=== PATIENT | male | born 1960 | race Caucasian/White ===

== ENCOUNTER 2022-12-20 18:52 | Observation (INO) | payer MEDICARE, SELFPAY ==
[2022-12-20] VITALS (9 sets, daily range): BP systolic 149–176; BP diastolic 80–96; PULSE 100–120; RESP 20–30; TEMP 36.1–36.5; O2SAT 92–98; BMI 39.1; BMI 39.9
--- NOTE | 2022-12-20 19:08 | ECG_ITS ---
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
--- NOTE | 2022-12-20 19:14 | ED.SOB1 ---
HPI - SOB/Dyspnea General Chief Complaint: Shortness of Breath/Dyspnea Stated Complaint: SHORTNESS OF BREATH Time Seen by Provider: 12/20/22 19:07 Source: patient and family Mode of arrival: Wheelchair Limitations: no limitations History of Present Illness HPI Narrative: cc - shortness of breath Patient with COPD who sees Dr Pacheco now presents with 3 days of increasing shortness of breath. He uses 4LPM NC at home and sleeps with CPAP at night. he said that over the last few days he has stayed in bed longer with his CPAP because it has helped his breathing. He has not had any meds added. No fever or chills. No vomiting or diarrhea. No GI or symptoms. His PCP is Dr Benavides. He has not contacted his providers during this latest episode. Timing: constant Severity: moderate Exacerbating factors: exertion Relieving factors: nothing Known history of: COPD Associated symptoms: denies other symptoms Related Data Allergies Allergy/AdvReac Type Severity Reaction Status Date / Time metformin Allergy Intermediate Verified 12/20/22 19:00 Review of Systems ROS Cardiovascular Denies: chest pain or palpitations Exam Narrative Exam Narrative: Nurses notes and vital signs reviewed and patient is not hypoxic. afebrile General: Well-appearing and in no apparent distress. Skin: Warm, dry, no pallor noted. Head: Normocephalic, atraumatic. Neck: Supple, non-tender. Eye: Pupils are equal, round and EOMI. No scleral icterus. Cardiovascular: tachycardia Respiratory: Accessory muscle use and increased work of breathing. Globally decreased air exchange. Lungs with scattered experiatory wheezing. Back: No midline thoracic or lumbar vertebral tenderness. No CVA tenderness Musculoskeletal: normal ROM, no calf or popliteal tenderness, no lower extremity edema/swelling Neurological: A&O x4. No cranial nerve dysfunction observed. No truncal ataxia. Moves all extremities. Sensation intact. Psychiatric: Cooperative and interactive. Normal mood and affect. Constitutional Vital Signs - 24 hr 12/20/22 19:00 12/20/22 19:12 12/20/22 19:33 Temperature 97 F L Pulse Rate [Monitor] 120 H 115 H Respiratory Rate 30 H 24 Blood Pressure [Right Arm] 176/90 H Pulse Oximetry 94 L 92 L 94 L Oxygen Delivery Method Nasal Cannula Nasal Cannula Nasal Cannula Oxygen Delivery Flow Rate 4 5 5 12/20/22 19:38 Temperature Pulse Rate [Monitor] 110 H Respiratory Rate 20 Blood Pressure [Right Arm] Pulse Oximetry 98 Oxygen Delivery Method Oxygen Delivery Flow Rate Course Vital Signs Vital signs: Vital Signs Temperature 97 F L 12/20/22 19:00 Pulse Rate 120 H 12/20/22 19:00 Respiratory Rate 30 H 12/20/22 19:00 Blood Pressure 176/90 H 12/20/22 19:00 Pulse Oximetry 94 L 12/20/22 19:00 Oxygen Delivery Method Nasal Cannula 12/20/22 19:00 Oxygen Delivery Flow Rate 4 12/20/22 19:00 Temperature 97 F L 12/20/22 19:00 Pulse Rate 110 H 12/20/22 19:38 Respiratory Rate 20 12/20/22 19:38 Blood Pressure 176/90 H 12/20/22 19:00 Pulse Oximetry 98 12/20/22 19:38 Oxygen Delivery Method Nasal Cannula 12/20/22 19:33 Oxygen Delivery Flow Rate 5 12/20/22 19:33 MDM - SOB/Dyspnea MDM Narrative Medical decision making narrative: Patient was placed on radiographer cardiac catheterization and EKG obtained. Blood drawn and sent for evaluation. CXR obtained. patient was given IV Solu-Medrol and DuoNeb treatment with small amount of improvement. He received an additional albuterol nebulizer treatment. He still has not returned to his baseline. He had increased work of breathing and still is sitting forward and therefore I recommended that he be admitted to the hospital. He does not need continuous CPAP or BiPAP at this time I do not think he requires Vapotherm please clearly having an exacerbation of chronic obstructive pulmonary disease and I would like to admit him overnight on observation basis for further evaluation. His primary care provider is Dr. Janet Benavides. Therefore he will be admitted to the service of Dr. Gonzalez. I spoke with the on-call tell hospitalist, Dr. Vera, who accepted this patient's admission. Differential Diagnosis Differential diagnosis: Likely acute exacerbation of chronic obstructive airways disease, congestive heart failure, community acquired pneumonia and pulmonary embolism Lab Data Attestation: I reviewed the patient's lab results. Labs: Lab Results 12/20/22 Range/Units 19:05 WBC 7.1 (4.0-11.0) 10^3/uL RBC 5.20 (4.70-6.10) 10^6/uL Hgb 16.1 (14.0-18.0) g/dL Hct 47.7 (42.0-54.0) % MCV 91.7 (80.0-94.0) fL MCH 31.0 (25.9-34.0) pg MCHC 33.8 (29.9-35.2) g/dL RDW 13.4 (11.0-15.0) % Plt Count 313 (150-450) 10^3/uL MPV 9.5 (9.5-13.5) fL Neut % (Auto) 70.1 (43.0-75.0) % Lymph % (Auto) 19.5 L (20.5-60.0) % [place] % (Auto) 8.3 (1.7-12.0) % Eos % (Auto) 0.8 L (0.9-7.0) % Baso % (Auto) 1.0 (0.2-2.0) % Neut # (Auto) 5.0 (1.4-6.5) 10^3/uL Lymph # (Auto) 1.4 (1.2-3.8) 10^3/uL [place] # (Auto) 0.6 (0.3-0.8) 10^3/uL Eos # (Auto) 0.1 (0.0-0.7) 10^3/uL Baso # (Auto) 0.1 (0.0-0.1) 10^3/uL Abs Immat Gran (auto) 0.02 (0.00-0.03) 10^3/uL Imm/Tot Granulo (auto) 0.3 (0.0-0.5) % Sodium 141 (136-145) mmol/L Potassium 4.3 (3.5-5.1) mmol/L Chloride 102 (98-107) mmol/L Carbon Dioxide 30.8 (21.0-32.0) mmol/L Anion Gap 12.5 BUN 14.0 (7.0-18.0) mg/dL Creatinine 1.25 (0.70-1.30) mg/dL Est GFR ( Amer) >60 (>=60) Est GFR (Non-Af Amer) 58 L (>=60) BUN/Creatinine Ratio 11.2 Glucose 218 H (74-106) mg/dL Calcium 9.1 (8.5-10.1) mg/dL Troponin I High Sens 9.9 (4.0-76.1) pg/mL NT-Pro-B Natriuret Pep 102.0 (<=900.0) pg/mL ECG Data Attestation: ?I have reviewed the pertinent ECG results. Interpretation: EKG interpretation: Emergency Department physician interpretation. Sinus tachycardia at 119bpm. Normal axis, normal intervals and no ST segment elevation or depression. Discharge Plan Discharge Chief Complaint: Shortness of Breath/Dyspnea Clinical Impression: Acute exacerbation of chronic obstructive pulmonary disease Patient Disposition: Admitted as Observation Time of Disposition Decision: 21:07 Condition: Fair Referrals: JANET BENAVIDES [Primary Care Provider] - 1 week
--- NOTE | 2022-12-20 19:20 | XR_ITS ---
The [address] [address] Patient Name: RICARDO SNOW MRN: [id number] date: 1960 Sex: M Assigned Patient Location: ER Current Patient Location: ER Accession/Order Number: [id number] Exam Date: 12/20/2022 19:20 Report Date: 12/20/2022 20:21 At the request of: EDUARDO TAYLOR Procedure: XR chest 1V EXAM: XR chest 1V HISTORY: shortness of breath COMPARISON: None. TECHNIQUE: Single AP view was performed of the chest. FINDINGS: The cardiac silhouette is normal in size. The right paratracheal mediastinum appears somewhat thickened which is likely due to tortuous great vessels. Lungs appear hyperinflated consistent with known COPD. There is no focal consolidation, definite pleural effusion or pneumothorax. There is a partially visualized remote nonunited fracture of the right clavicle. IMPRESSION: 1. No definite acute cardiopulmonary process. 2. Hyperinflation consistent with known COPD. 3. Widening of the right paratracheal mediastinum, likely due to tortuosity of the great vessels. Electronically authenticated by: TOM BILLS Date: 12/20/2022 20:21
[2022-12-20 19:32] LABS: Basophils Absolute Auto 0.1 10^3/uL (0.0-0.1); Eosinophils Absolute Auto 0.1 10^3/uL (0.0-0.7); Eosinophils Percent Auto 0.8 % (0.9-7.0); Hematocrit 47.7 % (42.0-54.0); Hemoglobin 16.1 g/dL (14.0-18.0); Immature Granulocytes Abs Auto 0.02 10^3/uL (0.00-0.03); Immature Granulocytes Pct Auto 0.3 % (0.0-0.5); Lymphocytes Absolute Auto 1.4 10^3/uL (1.2-3.8); Lymphocytes Percent Auto 19.5 % (20.5-60.0); Mean Corpuscular HGB Conc 33.8 g/dL (29.9-35.2); Mean Corpuscular Volume 91.7 fL (80.0-94.0); Mean Platelet Volume 9.5 fL (9.5-13.5); Monocytes Absolute Auto 0.6 10^3/uL (0.3-0.8); Monocytes Percent Auto 8.3 % (1.7-12.0); Neutrophils Percent Auto 70.1 % (43.0-75.0); Platelet Count 313 10^3/uL (150-450); Red Cell Distribution Width 13.4 % (11.0-15.0); White Blood Count 7.1 10^3/uL (4.0-11.0)
[2022-12-20] MEDS: IPRATROPIUM/ALBUTEROL SULFATE 3 ML AMPUL.NEB IH (19:33)
[2022-12-20] MEDS: METHYLPREDNISOLONE SOD SUCC PF 125 MG/2 ML VIAL IVP (19:41)
[2022-12-20 19:46] LABS: Anion Gap 12.5; BUN Creatinine Ratio 11.2; Calcium 9.1 mg/dL (8.5-10.1); Carbon Dioxide 30.8 mmol/L (21.0-32.0); Chloride 102 mmol/L (98-107); Estimated GFR (African America >60 (>=60); Estimated GFR (Non-African Ame 58 (>=60); Glucose 218 mg/dL (74-106); Potassium 4.3 mmol/L (3.5-5.1); Sodium 141 mmol/L (136-145); Troponin I High Sensitivity 9.9 pg/mL (4.0-76.1)
[2022-12-20] MEDS: ALBUTEROL SULFATE 2.5 MG/3 ML VIAL NEB IH (21:29)
[2022-12-21] VITALS (16 sets, daily range): BP systolic 138–165; BP diastolic 76–87; PULSE 55–125; RESP 16–30; TEMP 36.4–36.8; O2SAT 93–97
--- NOTE | 2022-12-21 01:31 | P.PN_ITS ---
Progress Note: Subjective Subjective Interval history: 3 days history of acute on chronic dyspnea with PIKE despite his home day 4L nasal canula and night CPAP. Known to Dr. Matthew with prior admissions for COPD exacerbation today felt continued decline after 3 days prompting ED visit where he was investigated and treated for COPD exacerbation increasing o2 from 4 to 5L nasal o2 and when arrives to floor for interview is clinically feeling better though speaks to me in incomplete sentences to take breaths. He reports no sick contacts, denies fever or chest pain. no noted weight gain or LE edema. Has been using home inhalers without relief but ED duo neb followed by albuterol improved his symptoms. RR improved to 22 on arrival to medicine floor. Exam Constitutional Vital Signs - 24 hr 12/20/22 19:00 12/20/22 19:12 12/20/22 19:33 Temperature 97 F L Pulse Rate Pulse Rate [Monitor] 120 H 115 H Respiratory Rate 30 H 24 Blood Pressure Blood Pressure [Right Arm] 176/90 H Pulse Oximetry 94 L 92 L 94 L Oxygen Delivery Method Nasal Cannula Nasal Cannula Nasal Cannula Oxygen Delivery Flow Rate 4 5 5 12/20/22 19:38 12/20/22 22:13 12/20/22 19:00 Temperature Pulse Rate Pulse Rate [Monitor] 110 H Respiratory Rate 20 Blood Pressure 176/90 H Blood Pressure [Right Arm] Pulse Oximetry 98 96 94 L Oxygen Delivery Method Nasal Cannula Oxygen Delivery Flow Rate 5 12/20/22 21:20 12/20/22 19:00 12/20/22 22:21 Temperature Pulse Rate Pulse Rate [Monitor] 100 H Respiratory Rate 24 Blood Pressure 176/90 H 158/96 H Blood Pressure [Right Arm] Pulse Oximetry 96 95 95 Oxygen Delivery Method Nasal Cannula Oxygen Delivery Flow Rate 5 12/20/22 23:20 12/20/22 23:20 12/20/22 23:20 Temperature 97.7 F Pulse Rate 109 H Pulse Rate [Monitor] 109 H Respiratory Rate 22 22 22 Blood Pressure Blood Pressure [Right Arm] 149/80 H Pulse Oximetry 95 95 Oxygen Delivery Method Nasal Cannula Nasal Cannula Oxygen Delivery Flow Rate 5 5 12/20/22 21:30 Temperature Pulse Rate 100 H Pulse Rate [Monitor] Respiratory Rate 24 Blood Pressure Blood Pressure [Right Arm] Pulse Oximetry 98 Oxygen Delivery Method Oxygen Delivery Flow Rate Common normals: oriented x3 and well nourished General appearance: cooperative and other (mild breathing discomfort improved from ED treatment per patient.) Orientation/consciousness: Yes awake, Yes oriented to person, Yes oriented to place and Yes oriented to time HENMT Common normals: normocephalic and head/scalp atraumatic Neck & C-Spine Common normals: full ROM, supple and no JVD Chest Common normals: inspection of chest normal (accessory muscle use of upper chest) Chest: symmetrical chest wall rise Respiratory Effort & inspection: tachypneic, labored and other (sitting upright, tachypnea with decreased bilateral breath sounds with end ) Cardio Rate: tachycardic Neuro Common normals: oriented x3 Progress Note: Objective Labs Labs: Short CBC 12/20/22 Range/Units 19:05 WBC 7.1 (4.0-11.0) 10^3/uL Hgb 16.1 (14.0-18.0) g/dL Hct 47.7 (42.0-54.0) % Plt Count 313 (150-450) 10^3/uL BMP 12/20/22 19:05 Sodium 141 Potassium 4.3 Chloride 102 Carbon Dioxide 30.8 BUN 14.0 Creatinine 1.25 Glucose 218 H Calcium 9.1 Pulse Oximetry Attestation: I have reviewed the pertinent pulse oximetry results. Progress Note: A&P Assessment and Plan (1) Acute exacerbation of chronic obstructive pulmonary disease: Assessment and Plan: 1. COPD exacerbation: Continue nebulizer treatments in addition to steriods q 6. CPAP at night and escalate as needed for ventilatory issues. He is improved with initial treatment despite increased oxygen requirements on NC. For now continue non invasive treatment with pulm to be consulted tomorrow. 2. GI/DVT prophylaxis: lovenox order placed. Ok to eat as tolerated. 3. DM: monitor glucose and restart home medicines in AM. Fall Risk Details [place] Fall Scale Risk Level: No Fall Risk Current Medications: Current Medications Acetaminophen (Acetaminophen 325 Mg Tablet) 650 mg PO Q4H PRN PRN Reason: Pain Albuterol/Ipratropium (Ipratropium/Albuterol Sulfate 3 Ml Ampul.Neb) 3 ml IH Q4H PRN PRN Reason: Dyspnea Docusate Sodium (Docusate Sodium 100 Mg Capsule) 100 mg PO BID PRN PRN Reason: Constipation Enoxaparin Sodium (Enoxaparin Sodium 120 Mg/0.8 Ml Syringe) 120 mg SUBQ Q12H KAITLIN Guaifenesin (Guaifenesin 200 Mg/Dextromethorphan 20 Mg 10 Ml Syrup) 10 ml PO Q6H PRN PRN Reason: Cough Sodium Chloride (Sodium Chloride 0.9% 1,000 Ml) 1,000 mls @ 100 mls/hr IV .Q10H KAITLIN Ondansetron HCl (Ondansetron 4 Mg Rapdis Tablet) 4 mg PO Q6H PRN PRN Reason: Nausea And Vomiting Polyethylene Glycol (Polyethylene Glycol 3350 17 Gm Powder Packet) 17 gm PO QD PRN PRN Reason: Constipation Senna (Sennosides 8.6 Mg Tablet) 8.6 mg PO QD PRN PRN Reason: Constipation Time Spent With Patient Time: Total time spent is greater than 50% in coordination of care (as documented) at patient's floor/unit and/or counseling patient: Time with patient: 25 - 35 minutes Telemedicine Attestation Telemedicine Attestation I conducted this encounter from [[facility]] via secure live, [id number] video conference with the patient, CHARGE TEST-CHARGES located at [facility] with [bedside nurse]. Prior to the interview, the risks and benefits of telemedicine were discussed with the patient and verbal consent was obtained.
[2022-12-21] MEDS: 0.9 % SODIUM CHLORIDE 1,000 ML 100 ML IV (03:06)
[2022-12-21] MEDS: ENOXAPARIN SODIUM 120 MG/0.8 ML SYRINGE SUBQ (03:06)
[2022-12-21] MEDS: IPRATROPIUM/ALBUTEROL SULFATE 3 ML AMPUL.NEB IH ×4 (04:19→23:07)
--- NOTE | 2022-12-21 04:28 | RESP.RT ---
decreased to 4L at this time. Patient has history of COPD and wears 4L at home.
[2022-12-21 04:47] LABS: Basophils Percent Auto 0.4 % (0.2-2.0); Hemoglobin 15.5 g/dL (14.0-18.0); Immature Granulocytes Abs Auto 0.03 10^3/uL (0.00-0.03); Immature Granulocytes Pct Auto 0.4 % (0.0-0.5); Lymphocytes Absolute Auto 0.4 10^3/uL (1.2-3.8); Lymphocytes Percent Auto 5.2 % (20.5-60.0); Mean Corpuscular Hemoglobin 30.9 pg (25.9-34.0); Mean Corpuscular Volume 93.6 fL (80.0-94.0); Mean Platelet Volume 11.1 fL (9.5-13.5); Monocytes Absolute Auto 0.1 10^3/uL (0.3-0.8); Monocytes Percent Auto 1.2 % (1.7-12.0); Neutrophils Absolute Auto 6.4 10^3/uL (1.4-6.5); Neutrophils Percent Auto 92.8 % (43.0-75.0); Platelet Count 233 10^3/uL (150-450); Red Blood Count 5.02 10^6/uL (4.70-6.10); Red Cell Distribution Width 13.3 % (11.0-15.0); White Blood Count 6.9 10^3/uL (4.0-11.0)
[2022-12-21 05:04] LABS: Alanine Aminotransferase 26 U/L (16-63); Albumin Globulin Ratio 1.1; Albumin Level 3.7 g/dL (3.4-5.0); Alkaline Phosphatase 80 U/L (46-116); Anion Gap 13.5; Aspartate Amino Transferase 11 U/L (15-37); BUN Creatinine Ratio 15.2; Bilirubin Total 0.3 mg/dL (0.2-1.0); Calcium 9.5 mg/dL (8.5-10.1); Carbon Dioxide 28.6 mmol/L (21.0-32.0); Chloride 101 mmol/L (98-107); Estimated GFR (African America >60 (>=60); Estimated GFR (Non-African Ame >60 (>=60); Globulin 3.4 g/dL; Glucose 247 mg/dL (74-106); Magnesium 1.8 mg/dL (1.8-2.4); Potassium 4.1 mmol/L (3.5-5.1); Sodium 139 mmol/L (136-145); Total Protein 7.1 g/dL (6.4-8.2)
[2022-12-21 07:52] LABS: Glucometer 214 mg/dL (74-106)
[2022-12-21] MEDS: METHYLPREDNISOLONE SOD SUCC PF 125 MG/2 ML VIAL IVP ×3 (09:33→21:14)
[2022-12-21] MEDS: LEVOFLOXACIN IN DEXTROSE 5 % 750 MG/150 ML IV.SOLN 100 MG IV (09:38)
--- NOTE | 2022-12-21 09:58 | P.HP_ITS ---
H&P: HPI History of Present Illness Chief complaint: SHORTNESS OF BREATH Narrative: Patient with a history of COPD last flareup in August, presented to the emergency with increasing shortness of breath, respiratory distress, sinus tachycardia, acute hypoxia, acute elevation of blood pressure-admitted for work- up and treatment of acute exacerbation of COPD likely secondary to acute bronchitis [facility] Social History Gender Identity: male Meds Home Medications and Allergies Home Medications Medication Instructions Recorded Confirmed Type albuterol sulfate 90 mcg/actuation 2 puff inhalation Q4H PRN 12/20/22 12/20/22 History aerosol inhaler shortness of breath or wheezing aripiprazole 10 mg tablet 10 mg PO DAILY 12/20/22 12/20/22 History fluticasone fur. 100 mcg-umeclid 1 inh inhalation Q24H 12/20/22 12/20/22 History 62.5 mcg-vilant 25 mcg inhalat.powder (Trelegy Ellipta) glipizide 10 mg tablet 10 mg PO BID 12/20/22 12/20/22 History hydrocodone 5 mg-acetaminophen 325 1 tab PO Q6H PRN pain 12/20/22 12/20/22 History mg tablet lisinopril 5 mg tablet 5 mg PO DAILY 12/20/22 12/20/22 History metoprolol succinate 25 mg 25 mg PO DAILY 12/20/22 12/20/22 History tablet,extended release 24 hr omeprazole 20 mg capsule,delayed 20 mg PO DAILY 12/20/22 12/20/22 History release theophylline 400 mg 400 mg PO Q12H 12/20/22 12/20/22 History tablet,extended release 24 hr venlafaxine 75 mg capsule,extended 150 mg PO DAILY 12/20/22 12/20/22 History release 24 hr Allergies Allergy/AdvReac Type Severity Reaction Status Date / Time metformin Allergy Intermediate Verified 12/20/22 19:00 Exam Constitutional Vital Signs - 24 hr 12/20/22 19:00 12/20/22 19:12 12/20/22 19:33 Temperature 97 F L Pulse Rate Pulse Rate [Monitor] 120 H 115 H Respiratory Rate 30 H 24 Blood Pressure Blood Pressure [Left Arm] Blood Pressure [Right Arm] 176/90 H Pulse Oximetry 94 L 92 L 94 L Oxygen Delivery Method Nasal Cannula Nasal Cannula Nasal Cannula Oxygen Delivery Flow Rate 4 5 5 12/20/22 19:38 12/20/22 22:13 12/20/22 19:00 Temperature Pulse Rate Pulse Rate [Monitor] 110 H Respiratory Rate 20 Blood Pressure 176/90 H Blood Pressure [Left Arm] Blood Pressure [Right Arm] Pulse Oximetry 98 96 94 L Oxygen Delivery Method Nasal Cannula Oxygen Delivery Flow Rate 5 12/20/22 21:20 12/20/22 19:00 12/20/22 22:21 Temperature Pulse Rate Pulse Rate [Monitor] 100 H Respiratory Rate 24 Blood Pressure 176/90 H 158/96 H Blood Pressure [Left Arm] Blood Pressure [Right Arm] Pulse Oximetry 96 95 95 Oxygen Delivery Method Nasal Cannula Oxygen Delivery Flow Rate 5 12/20/22 23:20 12/20/22 23:20 12/20/22 23:20 Temperature 97.7 F Pulse Rate 109 H Pulse Rate [Monitor] 109 H Respiratory Rate 22 22 22 Blood Pressure Blood Pressure [Left Arm] Blood Pressure [Right Arm] 149/80 H Pulse Oximetry 95 95 Oxygen Delivery Method Nasal Cannula Nasal Cannula Oxygen Delivery Flow Rate 5 5 12/20/22 21:30 12/21/22 02:52 12/21/22 04:13 Temperature Pulse Rate 100 H 92 H 89 Pulse Rate [Monitor] Respiratory Rate 24 30 H Blood Pressure Blood Pressure [Left Arm] Blood Pressure [Right Arm] Pulse Oximetry 98 97 Oxygen Delivery Method Nasal Cannula Oxygen Delivery Flow Rate 5 12/21/22 05:41 12/21/22 06:00 12/21/22 08:00 Temperature 97.5 F L 97.5 F L Pulse Rate 92 H 92 H 104 H Pulse Rate [Monitor] Respiratory Rate 20 20 Blood Pressure Blood Pressure [Left Arm] 138/76 H 138/76 H Blood Pressure [Right Arm] 149/80 H Pulse Oximetry 94 L 94 L Oxygen Delivery Method Nasal Cannula Nasal Cannula Oxygen Delivery Flow Rate 5 5 12/21/22 09:51 Temperature Pulse Rate 107 H Pulse Rate [Monitor] Respiratory Rate Blood Pressure Blood Pressure [Left Arm] Blood Pressure [Right Arm] Pulse Oximetry Oxygen Delivery Method Oxygen Delivery Flow Rate Chest Common normals: inspection of chest normal Respiratory Common normals: abnormal respiratory effort (Conversational dyspnea) Effort & inspection: other (Diminished breath sounds bilaterally) Cardio Common normals: regular rate and regular rhythm GI Common normals: Normal to inspection, nondistended, normoactive bowel sounds present and soft to palpation Extremity Common normals: normal to inspection and full ROM Results Labs Labs: Short CBC 12/20/22 12/21/22 Range/Units 19:05 04:17 WBC 7.1 6.9 (4.0-11.0) 10^3/uL Hgb 16.1 15.5 (14.0-18.0) g/dL Hct 47.7 47.0 (42.0-54.0) % Plt Count 313 233 (150-450) 10^3/uL BMP 12/20/22 12/21/22 19:05 04:17 Sodium 141 139 Potassium 4.3 4.1 Chloride 102 101 Carbon Dioxide 30.8 28.6 BUN 14.0 15.0 Creatinine 1.25 0.99 Glucose 218 H 247 H Calcium 9.1 9.5 Liver Function 12/21/22 Range/Units 04:17 Total Bilirubin 0.3 (0.2-1.0) mg/dL AST 11 L (15-37) U/L ALT 26 (16-63) U/L Alkaline Phosphatase 80 (46-116) U/L Albumin 3.7 (3.4-5.0) g/dL Assessment and Plan Assessment and Plan (1) Acute exacerbation of chronic obstructive pulmonary disease: Plan Sinus tachycardia, respiratory distress, acute hypoxia with acute uncontrolled hypertension secondary to acute exacerbation of COPD-steroids, antibiotics, aerosol treatments. Check theophylline level. Does wear home O2 at 4 L but was bumped up to 6 L at 1 point here. Generalized anxiety disorder-continue with home medications plus the addition of Vistaril NIDDM-insulin sliding scale. Hypertension-continue with home medications Morbid obesity-diet management Currently we will maintain patient on observation status, possible discharge tomorrow for improved quickly, consult to pulmonology
[2022-12-21 10:55] LABS: Theophylline 20.7 ug/mL (10.0-20.0)
[2022-12-21 11:04] LABS: Glucometer 264 mg/dL (74-106)
[2022-12-21] MEDS: ARIPIPRAZOLE 5 MG TABLET 10 MG PO (11:49)
[2022-12-21] MEDS: INSULIN ASPART 300 UNIT/3 ML PEN SUBQ ×3 (11:51→21:15)
--- NOTE | 2022-12-21 11:51 | CM.NOTE ---
Rounds made with Dr. Gonzalez. Consult made to Flight Surveyor. Currently Mr. Hallman has chronic oxygen @ 4L/NC thru [facility] (previously [facility] in [place]) also has a CPaP that he uses nightly. Lives at home with his and uses no DME devices. No plan for discharge today.
--- NOTE | 2022-12-21 13:39 | CT_ITS ---
The [address] [address] Patient Name: RICARDO HYLTON MRN: [id number] date: 1960 Sex: M Assigned Patient Location: MS Current Patient Location: MS Accession/Order Number: [id number] Exam Date: 12/21/2022 23:59 Report Date: 12/22/2022 02:22 At the request of: VANDA GONZALEZ Procedure: CT angio chest EXAM: CT angio chest HISTORY: Acute on chronic respiratory failure, chest pain COMPARISON: CT chest examination dated 08/17/2022. TECHNIQUE: Axial CT images through the chest were obtained after the intravenous administration of 100 mL Omnipaque 350 contrast. Coronal and sagittal reformats were obtained. Dose reduction techniques were achieved by using automated exposure control and/or adjustment of mA and/or kV according to patient size and/or use of iterative reconstruction technique. FINDINGS: The study is technically adequate with a good contrast bolus to the pulmonary arteries. There are no filling defects or vascular cutoffs to indicate a pulmonary embolus. The pulmonary arteries are normal in size. There are emphysematous changes. There is biapical pleural parenchymal scarring. There is bibasilar atelectasis and/or scarring. The central airways are patent. No pleural effusion or pneumothorax is seen. The thoracic aorta is normal in course and caliber without evidence of an aneurysm. The cardiac chambers appear normal in size. There is no pericardial effusion. There is no mediastinal, hilar, or axillary lymphadenopathy by CT size criteria. Nipple piercings are noted. Images through the upper abdomen reveal no significant abnormalities. No suspicious or aggressive bone lesions are seen. No acute fracture is seen. There is a partially imaged remote right clavicle fracture. A right upper extremity PICC terminates near the atriocaval junction. IMPRESSION: 1. No evidence of pulmonary embolism. 2. Emphysematous changes with no acute cardiopulmonary abnormality. Electronically authenticated by: Katherine JOYNER Date: 12/22/2022 02:22
--- NOTE | 2022-12-21 13:40 | P.PLCN_ITS ---
History of Present Illness History of Present Illness Requesting physician: Shoaib Gonzalez Reason for consult: COPD (Acute exacerbation of COPD) Chief complaint: SHORTNESS OF BREATH Narrative: 62yo male who I follow outpatient for COPD presented to [facility] ER with worsening dyspnea over the past 3-4 days. He states that the recent heat wave this past weekend (near 90'F) set off his symptoms. Increased work of breathing, chest tightness, random chest pains. He states he has this feeling of dread that he is going to . He did not have any spare prednisone around. He came to the ER and was short of breath. He turned O2 up from baseline 4L/min to 5L/min; SpO2 ~94%, HR ~120. He improved with neb treatment. Given his work of breathing, he was admitted to the floor. He states it is still very rough to breathe. He is in the room with pursed lip breathing. in room states he has been doing this for ~3 days. He is using his PAP constantly at home, beyond HS & Naps. It helps some, but not a lot. Review of Systems ROS Status of ROS 10 or more systems reviewed and unremarkable except as noted in history and below Constitutional Denies: fever or chills Eyes Denies: blurry vision Ears, nose, mouth, and throat Denies: throat pain Cardiovascular Reports: chest pain (anterior chest, not constant) Respiratory Reports: shortness of breath, cough, wheezing and chest congestion; Denies: coughing up blood Gastrointestinal Denies: abdominal pain, nausea or vomiting Musculoskeletal Denies: extremity swelling Integumentary/Breast Denies: rash Neurological Denies: seizure-like activity Psychiatric Reports: anxiety Endocrine Reports: fatigue Allergic/Immunologic Denies: hives [facility] Social History Gender Identity: male Meds Home Medications and Allergies Home Medications Medication Instructions Recorded Confirmed Type albuterol sulfate 90 mcg/actuation 2 puff inhalation Q4H PRN 12/20/22 12/20/22 History aerosol inhaler shortness of breath or wheezing aripiprazole 10 mg tablet 10 mg PO DAILY 12/20/22 12/20/22 History fluticasone fur. 100 mcg-umeclid 1 inh inhalation Q24H 12/20/22 12/20/22 History 62.5 mcg-vilant 25 mcg inhalat.powder (Trelegy Ellipta) glipizide 10 mg tablet 10 mg PO BID 12/20/22 12/20/22 History hydrocodone 5 mg-acetaminophen 325 1 tab PO Q6H PRN pain 12/20/22 12/20/22 His tory mg tablet lisinopril 5 mg tablet 5 mg PO DAILY 12/20/22 12/20/22 History metoprolol succinate 25 mg 25 mg PO DAILY 12/20/22 12/20/22 History tablet,extended release 24 hr omeprazole 20 mg capsule,delayed 20 mg PO DAILY 12/20/22 12/20/22 History release theophylline 400 mg 400 mg PO Q12H 12/20/22 12/20/22 History tablet,extended release 24 hr venlafaxine 75 mg capsule,extended 150 mg PO DAILY 12/20/22 12/20/22 History release 24 hr Allergies Allergy/AdvReac Type Severity Reaction Status Date / Time metformin Allergy Intermediate Verified 12/20/22 19:00 Exam Constitutional Vital Signs - 24 hr 12/20/22 19:00 12/20/22 19:12 12/20/22 19:33 Temperature 97 F L Pulse Rate Pulse Rate [Monitor] 120 H 115 H Respiratory Rate 30 H 24 Blood Pressure Blood Pressure [Left Arm] Blood Pressure [Right Arm] 176/90 H Pulse Oximetry 94 L 92 L 94 L Oxygen Delivery Method Nasal Cannula Nasal Cannula Nasal Cannula Oxygen Delivery Flow Rate 4 5 5 12/20/22 19:38 12/20/22 22:13 12/20/22 19:00 Temperature Pulse Rate Pulse Rate [Monitor] 110 H Respiratory Rate 20 Blood Pressure 176/90 H Blood Pressure [Left Arm] Blood Pressure [Right Arm] Pulse Oximetry 98 96 94 L Oxygen Delivery Method Nasal Cannula Oxygen Delivery Flow Rate 5 12/20/22 21:20 12/20/22 19:00 12/20/22 22:21 Temperature Pulse Rate Pulse Rate [Monitor] 100 H Respiratory Rate 24 Blood Pressure 176/90 H 158/96 H Blood Pressure [Left Arm] Blood Pressure [Right Arm] Pulse Oximetry 96 95 95 Oxygen Delivery Method Nasal Cannula Oxygen Delivery Flow Rate 5 12/20/22 23:20 12/20/22 23:20 12/20/22 23:20 Temperature 97.7 F Pulse Rate 109 H Pulse Rate [Monitor] 109 H Respiratory Rate 22 22 22 Blood Pressure Blood Pressure [Left Arm] Blood Pressure [Right Arm] 149/80 H Pulse Oximetry 95 95 Oxygen Delivery Method Nasal Cannula Nasal Cannula Oxygen Delivery Flow Rate 5 5 12/20/22 21:30 12/21/22 02:52 12/21/22 04:13 Temperature Pulse Rate 100 H 92 H 89 Pulse Rate [Monitor] Respiratory Rate 24 30 H Blood Pressure Blood Pressure [Left Arm] Blood Pressure [Right Arm] Pulse Oximetry 98 97 Oxygen Delivery Method Nasal Cannula Oxygen Delivery Flow Rate 5 12/21/22 05:41 12/21/22 06:00 12/21/22 08:00 Temperature 97.5 F L 97.5 F L Pulse Rate 92 H 92 H 104 H Pulse Rate [Monitor] Respiratory Rate 20 20 Blood Pressure Blood Pressure [Left Arm] 138/76 H 138/76 H Blood Pressure [Right Arm] 149/80 H Pulse Oximetry 94 L 94 L Oxygen Delivery Method Nasal Cannula Nasal Cannula Oxygen Delivery Flow Rate 5 5 12/21/22 09:51 12/21/22 10:25 12/21/22 11:57 Temperature 98.3 F Pulse Rate 107 H 55 L 91 H Pulse Rate [Monitor] Respiratory Rate Blood Pressure Blood Pressure [Left Arm] 155/80 H Blood Pressure [Right Arm] Pulse Oximetry 93 L Oxygen Delivery Method Nasal Cannula Oxygen Delivery Flow Rate 5 Common normals: no apparent distress Nutritional appearance: obese Other: Breathing hard, fast, pursed lip HENMT Other: Wearing nasal cannula Eye Common normals: PERRL Neck & C-Spine General: trachea midline Chest Common normals: inspection of chest normal Respiratory Effort & inspection: tachypneic, pursed lip breathing and prolonged expiratory phase Auscultation: diminished lung sounds Percussion: hyperresonance Cardio Rate: regular rate Rhythm: regular rhythm GI Common normals: soft to palpation and non-tender Extremity Common normals: no clubbing, cyanosis or edema Neuro Common normals: oriented x3 Sensorium/orientation: awake Psych Mood and affect: anxious Results Laboratory Findings Abnormal lab findings: Abnormal Labs 12/20/22 12/21/22 12/21/22 19:05 04:17 07:51 Neut % (Auto) 92.8 H Lymph % (Auto) 19.5 L 5.2 L [place] % (Auto) 1.2 L Eos % (Auto) 0.8 L 0.0 L Lymph # (Auto) 0.4 L [place] # (Auto) 0.1 L Est GFR (Non-Af Amer) 58 L Glucose 218 H 247 H AST 11 L Theophylline 20.7 H* POC Glucose 214 H 12/21/22 11:03 Neut % (Auto) Lymph % (Auto) [place] % (Auto) Eos % (Auto) Lymph # (Auto) [place] # (Auto) Est GFR (Non-Af Amer) Glucose AST Theophylline POC Glucose 264 H Diagnostic Findings Chest x-ray: report reviewed Assessment and Plan Assessment and Plan (1) Acute exacerbation of chronic obstructive pulmonary disease: Assessment and Plan: 1. Acute exacerbation of COPD. 4th exacerbation this calendar year, 2nd hospitalization for COPD. Appears provoked by temperature flux. Still quite short of breath. Feeling of dread will check CTA for pulmonary embolism or any other finding that would be contributing to his worsening status. Will look into Daliresp vs. daily Azithromycin for outpatient use. 2. Alpha 1-antitrypsin deficiency with associated emphysema. Genotype MZ with very low level 20.9. Prolastin-C outpatient. 3. Chronic hypoxic respiratory failure. Baseline ~4L/min. Will check ABG; last ABG 08/29/2022 pH 7.354, pCO2 49.7. 4. Elevated theophylline level. No evidence of seizure (major toxicity); recheck theophylline tomorrow - level was normal earlier this year. 5. RANCHO. Severe with AHI 34. Continue PAP @ HS, naps, and PRN dyspnea. 6. Diabetes mellitus type 2. 7. Obesity. BMI 39.9 inducing a restrictive pulmonary physiology. 8. History of tobacco abuse. 120 pack-year history, quit 2012. Options for patient are few. I actually referred him for lung transplantation, was seen @ [facility] 04/06/2021. Medications nearly maxed. Prognosis is poor.
--- NOTE | 2022-12-21 14:24 | PC.NURSE ---
Patient has no IV access
[2022-12-21 14:29] LABS: ABG PCO2 44.6 mmHg (35.0-45.0); Base Excess ABG 1.3 mmol/L (-2.0-2.0); HCO3 ABG 26.4 mmol/L (22.0-26.0); Oxygen Saturation ABG 93.5 %; PO2 ABG 74.3 mmHg (80.0-100.0); pH ABG 7.381 (7.350-7.450)
[2022-12-21 14:30] LABS: Allen Test POS (POSITIVE); Liters per Minute 4; O2 Mode NC
[2022-12-21 14:31] LABS: Puncture Site RIGHT RADIAL
--- NOTE | 2022-12-21 15:23 | SWNOTE1 ---
SW met with pt to discuss dc needs. Pt lives at home with his and has home o2 at 4 liters and cpap. Pt is independent at home, no HH services. Pt did mention he does get an infusion monthly at home for his emphyzema. Pt does live in 2 story home. He has 13 stairs to get up, his bedroom is upstairs. Pt and have been talking about getting a hospital bed and he has been talking with his PCP about this. Pt at this time does not have any discharge needs. KATHY did review the IMM form with pt, no questions or concerns. Pt signed form, original given to pt and copy placed in chart.
[2022-12-21 16:18] LABS: Glucometer 227 mg/dL (74-106)
--- NOTE | 2022-12-21 16:37 | RESP.RT ---
GAVE PT 1700 TX BUT COULD NOT CHART IT OFF ON MED LIST RT GAVE NAHOMI AT 1639
[2022-12-21] MEDS: GLIPIZIDE 10 MG TABLET PO (21:14)
[2022-12-21 21:18] LABS: Glucometer 309 mg/dL (74-106)
[2022-12-22] VITALS (16 sets, daily range): BP systolic 161–163; BP diastolic 80–83; PULSE 92–112; RESP 18–24; TEMP 36.8–37.7; O2SAT 91–95
[2022-12-22] MEDS: METHYLPREDNISOLONE SOD SUCC PF 125 MG/2 ML VIAL IVP ×4 (03:56→20:28)
[2022-12-22] MEDS: IPRATROPIUM/ALBUTEROL SULFATE 3 ML AMPUL.NEB IH ×4 (04:01→23:02)
[2022-12-22 05:21] LABS: Theophylline 6.5 ug/mL (10.0-20.0)
[2022-12-22 07:28] LABS: Basophils Percent Auto 0.1 % (0.2-2.0); Eosinophils Percent Auto 0.1 % (0.9-7.0); Hematocrit 45.8 % (42.0-54.0); Hemoglobin 15.2 g/dL (14.0-18.0); Immature Granulocytes Abs Auto 0.05 10^3/uL (0.00-0.03); Immature Granulocytes Pct Auto 0.4 % (0.0-0.5); Lymphocytes Absolute Auto 0.8 10^3/uL (1.2-3.8); Lymphocytes Percent Auto 6.7 % (20.5-60.0); Mean Corpuscular HGB Conc 33.2 g/dL (29.9-35.2); Mean Corpuscular Hemoglobin 30.9 pg (25.9-34.0); Mean Corpuscular Volume 93.1 fL (80.0-94.0); Mean Platelet Volume 10.2 fL (9.5-13.5); Monocytes Absolute Auto 0.4 10^3/uL (0.3-0.8); Monocytes Percent Auto 3.4 % (1.7-12.0); Neutrophils Absolute Auto 10.7 10^3/uL (1.4-6.5); Neutrophils Percent Auto 89.3 % (43.0-75.0); Platelet Count 350 10^3/uL (150-450); Red Blood Count 4.92 10^6/uL (4.70-6.10); Red Cell Distribution Width 13.4 % (11.0-15.0); White Blood Count 11.9 10^3/uL (4.0-11.0)
[2022-12-22 07:39] LABS: Glucometer 242 mg/dL (74-106)
--- NOTE | 2022-12-22 08:22 | PM.PLPN ---
Progress Note: A&P Assessment and Plan (1) Acute exacerbation of chronic obstructive pulmonary disease: Assessment and Plan: 1. Acute exacerbation of COPD.? Continue treatment, taper steroids. Needs outpatient F/U. 2. Alpha 1-antitrypsin deficiency with associated emphysema.? Genotype MZ with very low level 20.9.? Obtained further history. He was on Prolastin-C outpatient, but had not been on it since April 2022. He now has an [employer] Medicare supplement. As it has been so long since he had been on it, and with new coverage, will need to recertify him for Prolastin-C; this will take over a month, so continuing with PICC-outpatient for 30 days is not viable from a pulmonary standpoint. 3. Chronic hypoxic respiratory failure.? Baseline ~4L/min and is back to it. No hypercapnia on ABG. 4. Elevated theophylline level.? Now low... continue theophylline at this time. 5. RANCHO.? Severe with AHI 34.? Continue PAP @ HS, naps, and PRN dyspnea. 6. Diabetes mellitus type 2. Monitor for hyperglycemia secondary to steroids. 7. Obesity. BMI 39.9 inducing a restrictive pulmonary physiology. 8. History of tobacco abuse. 120 pack-year history, quit 2012. Fall Risk Details [place] Fall Scale Risk Level: Low Fall Risk Current Medications: Current Medications Acetaminophen (Acetaminophen 325 Mg Tablet) 650 mg PO Q4H PRN PRN Reason: Pain Hydrocodone Bitart/Acetaminophen (Hydrocodone/Acetaminophen 5-325 Mg Tablet) 1 each PO Q6H PRN PRN Reason: pain Albuterol (Albuterol Sulfate 2.5 Mg/3 Ml Vial Neb) 2.5 mg IH Q2H PRN PRN Reason: dyspnea Albuterol/Ipratropium (Ipratropium/Albuterol Sulfate 3 Ml Ampul.Neb) 3 ml IH Q4H PRN PRN Reason: Dyspnea Albuterol/Ipratropium (Ipratropium/Albuterol Sulfate 3 Ml Ampul.Neb) 3 ml IH Q6H [facility] Last Admin: 12/22/22 04:01 Dose: 3 ml Aripiprazole (Aripiprazole 5 Mg Tablet) 10 mg PO QD [facility] Last Admin: 12/21/22 11:49 Dose: 10 mg Docusate Sodium (Docusate Sodium 100 Mg Capsule) 100 mg PO BID PRN PRN Reason: Constipation Glipizide (Glipizide 10 Mg Tablet) 10 mg PO BID [facility] Last Admin: 12/21/22 21:14 Dose: 10 mg Guaifenesin (Guaifenesin 200 Mg/Dextromethorphan 20 Mg 10 Ml Syrup) 10 ml PO Q6H PRN PRN Reason: Cough Hydroxyzine Pamoate (Hydroxyzine Pamoate 25 Mg Capsule) 25 mg PO QID PRN PRN Reason: Anxiety Levofloxacin/Dextrose (Levaquin 750 Mg/150 Ml-D5w) 750 mg in 150 mls @ 100 mls/hr IV Q24H [facility] Last Infusion: 12/21/22 11:56 Dose: Infused Insulin Aspart (Insulin Aspart 300 Unit/3 Ml Pen) 6 - 30 unit SUBQ ACHS [facility]; Protocol Lisinopril (Lisinopril 5 Mg Tablet) 5 mg PO DAILY [facility] Methylprednisolone Sodium Succinate (Methylprednisolone Sod Succ Pf 125 Mg/2 Ml Vial) 125 mg IVP Q6H [facility] Last Admin: 12/22/22 03:56 Dose: 125 mg Metoprolol Succinate (Metoprolol Succinate 25 Mg Tab.Er.24h) 25 mg PO DAILY [facility] Omeprazole (Omeprazole 20 Mg Capsule.Dr) 20 mg PO DAILY [facility] Ondansetron HCl (Ondansetron 4 Mg Rapdis Tablet) 4 mg PO Q6H PRN PRN Reason: Nausea And Vomiting Polyethylene Glycol (Polyethylene Glycol 3350 17 Gm Powder Packet) 17 gm PO QD PRN PRN Reason: Constipation Senna (Sennosides 8.6 Mg Tablet) 8.6 mg PO QD PRN PRN Reason: Constipation Theophylline (Theophylline Anhydrous 400 Mg Tab.Er.24h) 400 mg PO BID [facility] Last Admin: 12/21/22 21:13 Dose: Not Given Venlafaxine HCl (Venlafaxine Hcl Er 75 Mg Capsule) 150 mg PO DAILY [facility] Time Spent With Patient Time: Total time spent is greater than 50% in coordination of care (as documented) at patient's floor/unit and/or counseling patient: Subjective Subjective Interval history: He is breathing better today. Still has pursed lip breathing. Explained to him that his ABG was okay (no hypercapnia) and CTA showed no pulmonary emboli or other abnormalities. Nursing lost IV access and had to order a right PICC for the IVP dye. Discussed with patient's insurance. He was not able to afford Prolastin-C and had been off it since April! He states he now has [place] Medicare. Exam Constitutional Vital Signs - 24 hr 12/21/22 09:51 12/21/22 10:25 12/21/22 11:57 Temperature 98.3 F Pulse Rate 107 H 55 L 91 H Respiratory Rate Blood Pressure [Left Arm] 155/80 H Blood Pressure [Right Arm] Pulse Oximetry 93 L Oxygen Delivery Method Nasal Cannula Oxygen Delivery Flow Rate 5 12/21/22 13:58 12/21/22 14:00 12/21/22 15:45 Temperature 98.0 F Pulse Rate 109 H 105 H 94 H Respiratory Rate 16 Blood Pressure [Left Arm] Blood Pressure [Right Arm] 165/87 H Pulse Oximetry 93 L Oxygen Delivery Method Nasal Cannula Oxygen Delivery Flow Rate 4 12/21/22 17:33 12/21/22 20:01 12/21/22 21:41 Temperature 98.2 F Pulse Rate 125 H 120 H 93 H Respiratory Rate 18 Blood Pressure [Left Arm] Blood Pressure [Right Arm] 159/76 H Pulse Oximetry 93 L Oxygen Delivery Method Room Air Oxygen Delivery Flow Rate 12/21/22 22:01 12/21/22 23:06 12/21/22 23:06 Temperature Pulse Rate 107 H 108 H Respiratory Rate 24 Blood Pressure [Left Arm] Blood Pressure [Right Arm] Pulse Oximetry 94 L 94 L Oxygen Delivery Method Nasal Cannula Nasal Cannula Oxygen Delivery Flow Rate 4 4 12/22/22 00:01 12/22/22 02:01 12/22/22 03:51 Temperature Pulse Rate 108 H 112 H 102 H Respiratory Rate Blood Pressure [Left Arm] Blood Pressure [Right Arm] Pulse Oximetry Oxygen Delivery Method Oxygen Delivery Flow Rate 12/22/22 04:00 12/22/22 04:49 12/22/22 05:52 Temperature 99.8 F H Pulse Rate 110 H 108 H 107 H Respiratory Rate 20 Blood Pressure [Left Arm] 163/80 H Blood Pressure [Right Arm] Pulse Oximetry 91 L Oxygen Delivery Method Home BIPAP / CPAP Nasal Cannula Oxygen Delivery Flow Rate 4 12/22/22 08:02 Temperature Pulse Rate 110 H Respiratory Rate Blood Pressure [Left Arm] Blood Pressure [Right Arm] Pulse Oximetry Oxygen Delivery Method Oxygen Delivery Flow Rate Common normals: no apparent distress Nutritional appearance: obese Other: Breathing more calm today but still pursed lip HENMT Other: Wearing nasal cannula Eye Common normals: PERRL Neck & C-Spine General: trachea midline Chest Common normals: inspection of chest normal Respiratory Effort & inspection: pursed lip breathing and prolonged expiratory phase Auscultation: diminished lung sounds Percussion: hyperresonance Other: Breathing better today. Cardio Rate: regular rate Rhythm: regular rhythm GI Common normals: soft to palpation and non-tender Extremity Common normals: no clubbing, cyanosis or edema Neuro Common normals: oriented x3 Sensorium/orientation: awake Psych Mood and affect: anxious
[2022-12-22 08:34] LABS: Alanine Aminotransferase 26 U/L (16-63); Albumin Globulin Ratio 1.1; Albumin Level 3.9 g/dL (3.4-5.0); Alkaline Phosphatase 73 U/L (46-116); Anion Gap 16.6; Aspartate Amino Transferase 15 U/L (15-37); BUN Creatinine Ratio 15.5; Bilirubin Total 0.2 mg/dL (0.2-1.0); Calcium 10.1 mg/dL (8.5-10.1); Carbon Dioxide 26.5 mmol/L (21.0-32.0); Chloride 101 mmol/L (98-107); Estimated GFR (African America >60 (>=60); Estimated GFR (Non-African Ame >60 (>=60); Globulin 3.4 g/dL; Glucose 229 mg/dL (74-106); Potassium 4.1 mmol/L (3.5-5.1); Sodium 140 mmol/L (136-145); Total Protein 7.3 g/dL (6.4-8.2)
[2022-12-22] MEDS: LEVOFLOXACIN IN DEXTROSE 5 % 750 MG/150 ML IV.SOLN 100 MG IV (08:37)
[2022-12-22] MEDS: OMEPRAZOLE 20 MG CAPSULE.DR PO (08:38)
[2022-12-22] MEDS: METOPROLOL SUCCINATE 25 MG TAB.ER.24H PO (08:38)
[2022-12-22] MEDS: VENLAFAXINE HCL ER 75 MG CAPSULE 150 MG PO (08:38)
[2022-12-22] MEDS: LISINOPRIL 5 MG TABLET PO (08:38)
[2022-12-22] MEDS: GLIPIZIDE 10 MG TABLET PO ×2 (08:38→20:28)
[2022-12-22] MEDS: INSULIN ASPART 300 UNIT/3 ML PEN SUBQ ×4 (08:39→21:08)
--- NOTE | 2022-12-22 09:12 | P.DS_ITS ---
DS: Providers Provider Date of admission: 12/21/22 10:00 Primary care physician: BRYON BENAVIDES Consults: 12/21/22 Consult to Laboratory Chemist Routine 12/21/22 09:59 Consult to Pulmonology Routine Consulting Provider: Douglas Pacheco DS: Diagnosis Discharge Diagnosis (1) Acute exacerbation of chronic obstructive pulmonary disease: Plan Sinus tachycardia, respiratory distress, acute hypoxia with acute uncontrolled hypertension secondary to acute exacerbation of COPD-steroids, antibiotics, aerosol treatments.? Check theophylline level.? Does wear home O2 at 4 L but was bumped up to 6 L at 1 point here. Generalized anxiety disorder-continue with home medications plus the addition of Vistaril NIDDM-insulin sliding scale. Hypertension-continue with home medications Morbid obesity-diet management Currently we will maintain patient on observation status, possible discharge tomorrow for improved quickly, consult to pulmonology DS: Summary Hospital Course Hospital Course: Patient presented to the emergency with increasing shortness of breath. He has known COPD. And have acute hypoxic respiratory failure. Admitted and placed on IV antibiotics, IV steroids, frequent breathing treatments. After the first 24 hours he was back to his baseline of 4 L of supplemental oxygen. No further testing at the present from pulmonology standpoint. The patient still significant dyspnea with any activity. He can benefit from additional IV therapy if not improved later on this afternoon. Otherwise if he is improved this afternoon he can be discharged home in improving condition. Medication status. Follow-up with PCP and pulmonology as an outpatient Time Spent with Patient Time attestation: Total time spent providing and/or coordinating discharge services: Exam Constitutional Vital Signs - 24 hr 12/21/22 09:51 12/21/22 10:25 12/21/22 11:57 Temperature 98.3 F Pulse Rate 107 H 55 L 91 H Respiratory Rate Blood Pressure [Left Arm] 155/80 H Blood Pressure [Right Arm] Pulse Oximetry 93 L Oxygen Delivery Method Nasal Cannula Oxygen Delivery Flow Rate 5 12/21/22 13:58 12/21/22 14:00 12/21/22 15:45 Temperature 98.0 F Pulse Rate 109 H 105 H 94 H Respiratory Rate 16 Blood Pressure [Left Arm] Blood Pressure [Right Arm] 165/87 H Pulse Oximetry 93 L Oxygen Delivery Method Nasal Cannula Oxygen Delivery Flow Rate 4 12/21/22 17:33 12/21/22 20:01 12/21/22 21:41 Temperature 98.2 F Pulse Rate 125 H 120 H 93 H Respiratory Rate 18 Blood Pressure [Left Arm] Blood Pressure [Right Arm] 159/76 H Pulse Oximetry 93 L Oxygen Delivery Method Room Air Oxygen Delivery Flow Rate 12/21/22 22:01 12/21/22 23:06 12/21/22 23:06 Temperature Pulse Rate 107 H 108 H Respiratory Rate 24 Blood Pressure [Left Arm] Blood Pressure [Right Arm] Pulse Oximetry 94 L 94 L Oxygen Delivery Method Nasal Cannula Nasal Cannula Oxygen Delivery Flow Rate 4 4 12/22/22 00:01 12/22/22 02:01 12/22/22 03:51 Temperature Pulse Rate 108 H 112 H 102 H Respiratory Rate Blood Pressure [Left Arm] Blood Pressure [Right Arm] Pulse Oximetry Oxygen Delivery Method Oxygen Delivery Flow Rate 12/22/22 04:00 12/22/22 04:49 12/22/22 05:52 Temperature 99.8 F H Pulse Rate 110 H 108 H 107 H Respiratory Rate 20 Blood Pressure [Left Arm] 163/80 H Blood Pressure [Right Arm] Pulse Oximetry 91 L Oxygen Delivery Method Home BIPAP / CPAP Nasal Cannula Oxygen Delivery Flow Rate 4 12/22/22 08:02 Temperature Pulse Rate 110 H Respiratory Rate Blood Pressure [Left Arm] Blood Pressure [Right Arm] Pulse Oximetry Oxygen Delivery Method Oxygen Delivery Flow Rate Chest Common normals: inspection of chest normal Respiratory Common normals: abnormal respiratory effort (Some mild conversational dyspnea) Auscultation: diminished lung sounds and bronchovesicular breath sounds Cardio Common normals: regular rate and regular rhythm DS: Data Data Completed and Pending Labs on day of discharge: Labs from last 24 hours 12/22/22 12/22/22 12/21/22 07:38 04:23 21:14 WBC 11.9 H RBC 4.92 Hgb 15.2 Hct 45.8 MCV 93.1 MCH 30.9 MCHC 33.2 RDW 13.4 Plt Count 350 MPV 10.2 Neut % (Auto) 89.3 H Lymph % (Auto) 6.7 L [place] % (Auto) 3.4 Eos % (Auto) 0.1 L Baso % (Auto) 0.1 L Neut # (Auto) 10.7 H Lymph # (Auto) 0.8 L [place] # (Auto) 0.4 Eos # (Auto) 0.0 Baso # (Auto) 0.0 Abs Immat Gran (auto) 0.05 H Imm/Tot Granulo (auto) 0.4 Puncture Site ABG pH ABG pCO2 ABG pO2 ABG HCO3 ABG O2 Saturation ABG Base Excess Greg Test O2 Liters/Min Theophylline 6.5 L POC Glucose 242 H 309 H 12/21/22 12/21/22 12/21/22 16:17 14:20 11:03 WBC RBC Hgb Hct MCV MCH MCHC RDW Plt Count MPV Neut % (Auto) Lymph % (Auto) [place] % (Auto) Eos % (Auto) Baso % (Auto) Neut # (Auto) Lymph # (Auto) [place] # (Auto) Eos # (Auto) Baso # (Auto) Abs Immat Gran (auto) Imm/Tot Granulo (auto) Puncture Site Right radial ABG pH 7.381 ABG pCO2 44.6 ABG pO2 74.3 L ABG HCO3 26.4 H ABG O2 Saturation 93.5 ABG Base Excess 1.3 Greg Test Pos O2 Liters/Min 4 Theophylline POC Glucose 227 H 264 H 12/21/22 04:17 WBC RBC Hgb Hct MCV MCH MCHC RDW Plt Count MPV Neut % (Auto) Lymph % (Auto) [place] % (Auto) Eos % (Auto) Baso % (Auto) Neut # (Auto) Lymph # (Auto) [place] # (Auto) Eos # (Auto) Baso # (Auto) Abs Immat Gran (auto) Imm/Tot Granulo (auto) Puncture Site ABG pH ABG pCO2 ABG pO2 ABG HCO3 ABG O2 Saturation ABG Base Excess Greg Test O2 Liters/Min Theophylline 20.7 H* POC Glucose Discharge Plan Discharge Condition: Fair Discharge Medications: New prednisone 10 mg tablet 50 mg PO DAILY Qty: 47 0RF Rx Instructions: 5/day for 3 days. 4/day for 3 days, 3/day for 3 days, 2/day for 3 days, 1/day for 3 days, 1/2 /day for 4 days levofloxacin 750 mg tablet 750 mg PO DAILY 7 Days Qty: 7 0RF Continued albuterol sulfate 90 mcg/actuation HFA aerosol inhaler 2 puff INHALATION Q4H PRN (Reason: shortness of breath or wheezing) aripiprazole 10 mg tablet 10 mg PO DAILY Trelegy Ellipta 100-62.5-25 mcg blister with device 1 inh INHALATION Q24H glipizide 10 mg tablet 10 mg PO BID hydrocodone-acetaminophen 5-325 mg tablet 1 tab PO Q6H PRN (Reason: pain) lisinopril 5 mg tablet 5 mg PO DAILY metoprolol succinate 25 mg tablet extended release 24 hr 25 mg PO DAILY omeprazole 20 mg capsule,delayed release(DR/EC) 20 mg PO DAILY theophylline 400 mg tablet extended release 24 hr 400 mg PO Q12H venlafaxine 75 mg capsule,extended release 24hr 150 mg PO DAILY Forms: Portal Instructions Follow Up Appointments: Dr. Benavides - Mayra, December 28 @ 11:00 am
--- NOTE | 2022-12-22 09:40 | SWNOTE1 ---
Discussion of possibly keeping PICC line in if pt is getting infusions weekly. SW called pt's to clarify. Pt was getting infusion weekly, but not since April due to not being able to be on his 's insurance. Pt just recently got [employer] [employer], but the infusion has to be approved by his insurance before he can start them again. Unsure of when this will happen, therefore we will take PICC line out. KATHY updated nursing to let her know not to send pt home with PICC line.
--- NOTE | 2022-12-22 09:57 | CM.NOTE ---
Rounds made with Dr. Gonzalez. Potential plan for discharge later today.
[2022-12-22 11:20] LABS: Glucometer 297 mg/dL (74-106)
[2022-12-22] MEDS: ARIPIPRAZOLE 5 MG TABLET 10 MG PO (11:31)
[2022-12-22] MEDS: THEOPHYLLINE ANHYDROUS 400 MG TAB.ER.24H PO ×2 (11:31→20:30)
[2022-12-22] MEDS: HYDROXYZINE PAMOATE 25 MG CAPSULE PO (14:45)
[2022-12-22 16:15] LABS: Glucometer 255 mg/dL (74-106)
[2022-12-22 20:17] LABS: Glucometer 233 mg/dL (74-106)
[2022-12-23] VITALS (7 sets, daily range): BP systolic 143–153; BP diastolic 73–87; PULSE 68–108; RESP 18–20; TEMP 36.4; O2SAT 90–97
[2022-12-23] MEDS: METHYLPREDNISOLONE SOD SUCC PF 125 MG/2 ML VIAL IVP ×2 (02:33→08:46)
--- NOTE | 2022-12-23 02:39 | PC.NURSE ---
Blood drawn from right PICC without difficulty for morning labs
[2022-12-23 02:52] LABS: Basophils Percent Auto 0.1 % (0.2-2.0); Hematocrit 43.1 % (42.0-54.0); Hemoglobin 14.2 g/dL (14.0-18.0); Immature Granulocytes Abs Auto 0.07 10^3/uL (0.00-0.03); Immature Granulocytes Pct Auto 0.5 % (0.0-0.5); Lymphocytes Absolute Auto 0.4 10^3/uL (1.2-3.8); Lymphocytes Percent Auto 2.6 % (20.5-60.0); Mean Corpuscular HGB Conc 32.9 g/dL (29.9-35.2); Mean Corpuscular Volume 94.1 fL (80.0-94.0); Mean Platelet Volume 9.5 fL (9.5-13.5); Monocytes Absolute Auto 0.6 10^3/uL (0.3-0.8); Monocytes Percent Auto 3.8 % (1.7-12.0); Neutrophils Absolute Auto 13.8 10^3/uL (1.4-6.5); Platelet Count 296 10^3/uL (150-450); Red Blood Count 4.58 10^6/uL (4.70-6.10); Red Cell Distribution Width 13.7 % (11.0-15.0); White Blood Count 14.8 10^3/uL (4.0-11.0)
[2022-12-23 03:33] LABS: Alanine Aminotransferase 27 U/L (16-63); Albumin Globulin Ratio 1.2; Albumin Level 3.6 g/dL (3.4-5.0); Alkaline Phosphatase 61 U/L (46-116); Anion Gap 12.5; Aspartate Amino Transferase 19 U/L (15-37); BUN Creatinine Ratio 18.1; Bilirubin Total 0.2 mg/dL (0.2-1.0); Calcium 9.7 mg/dL (8.5-10.1); Carbon Dioxide 29.7 mmol/L (21.0-32.0); Chloride 101 mmol/L (98-107); Estimated GFR (African America >60 (>=60); Estimated GFR (Non-African Ame >60 (>=60); Globulin 2.9 g/dL; Glucose 184 mg/dL (74-106); Potassium 4.2 mmol/L (3.5-5.1); Sodium 139 mmol/L (136-145); Total Protein 6.5 g/dL (6.4-8.2)
[2022-12-23] MEDS: IPRATROPIUM/ALBUTEROL SULFATE 3 ML AMPUL.NEB IH ×2 (04:04→11:19)
--- NOTE | 2022-12-23 08:04 | PM.PLPN ---
Progress Note: A&P Assessment and Plan (1) Acute exacerbation of chronic obstructive pulmonary disease: Assessment and Plan: 1. Acute exacerbation of COPD.? Transition back to home meds at discharge. Continue theophylline. F/U January with me. Will discuss referral to interventional pulmonology regarding endobronchial valves. Provided him with the name [place] which is a brand of valves - he can research it at home. 2. Alpha 1-antitrypsin deficiency with associated emphysema.? Genotype MZ with very low level 20.9.? Has been off Prolastin-C since September 2021 (not April as initially thought). No need for PICC as he will need to be recertified all over again, and that won't happen until after January. 3. Chronic hypoxic respiratory failure.? At baseline 4L/min O2 ACT. No hypercapnia. 4. Elevated theophylline level.? NSpurious lab value? Continue theophylline @ discharge. Will check outpatient. 5. RANCHO.? Severe with AHI 34.? Continue PAP @ HS, naps, and PRN dyspnea. 6. Diabetes mellitus type 2. Monitor for hyperglycemia secondary to steroids. 7. Obesity. BMI 39.9 inducing a restrictive pulmonary physiology. 8. History of tobacco abuse. 120 pack-year history, quit 2012. Fall Risk Details [place] Fall Scale Risk Level: High Fall Risk Current Medications: Current Medications Acetaminophen (Acetaminophen 325 Mg Tablet) 650 mg PO Q4H PRN PRN Reason: Pain Hydrocodone Bitart/Acetaminophen (Hydrocodone/Acetaminophen 5-325 Mg Tablet) 1 each PO Q6H PRN PRN Reason: pain Albuterol (Albuterol Sulfate 2.5 Mg/3 Ml Vial Neb) 2.5 mg IH Q2H PRN PRN Reason: dyspnea Albuterol/Ipratropium (Ipratropium/Albuterol Sulfate 3 Ml Ampul.Neb) 3 ml IH Q4H PRN PRN Reason: Dyspnea Albuterol/Ipratropium (Ipratropium/Albuterol Sulfate 3 Ml Ampul.Neb) 3 ml IH Q6H [facility] Last Admin: 12/23/22 04:04 Dose: 3 ml Aripiprazole (Aripiprazole 5 Mg Tablet) 10 mg PO QD [facility] Last Admin: 12/22/22 11:31 Dose: 10 mg Docusate Sodium (Docusate Sodium 100 Mg Capsule) 100 mg PO BID PRN PRN Reason: Constipation Glipizide (Glipizide 10 Mg Tablet) 10 mg PO BID [facility] Last Admin: 12/22/22 20:28 Dose: 10 mg Guaifenesin (Guaifenesin 200 Mg/Dextromethorphan 20 Mg 10 Ml Syrup) 10 ml PO Q6H PRN PRN Reason: Cough Hydroxyzine Pamoate (Hydroxyzine Pamoate 25 Mg Capsule) 25 mg PO QID PRN PRN Reason: Anxiety Last Admin: 12/22/22 14:45 Dose: 25 mg Levofloxacin/Dextrose (Levaquin 750 Mg/150 Ml-D5w) 750 mg in 150 mls @ 100 mls/hr IV Q24H [facility] Last Infusion: 12/22/22 10:21 Dose: Infused Insulin Aspart (Insulin Aspart 300 Unit/3 Ml Pen) 6 - 30 unit SUBQ [facility]; Protocol Last Admin: 12/22/22 21:08 Dose: 14 unit Lisinopril (Lisinopril 5 Mg Tablet) 5 mg PO DAILY [facility] Last Admin: 12/22/22 08:38 Dose: 5 mg Methylprednisolone Sodium Succinate (Methylprednisolone Sod Succ Pf 125 Mg/2 Ml Vial) 125 mg IVP Q6H [facility] Last Admin: 12/23/22 02:33 Dose: 125 mg Metoprolol Succinate (Metoprolol Succinate 25 Mg Tab.Er.24h) 25 mg PO DAILY [facility] Last Admin: 12/22/22 08:38 Dose: 25 mg Omeprazole (Omeprazole 20 Mg Capsule.Dr) 20 mg PO DAILY [facility] Last Admin: 12/22/22 08:38 Dose: 20 mg Ondansetron HCl (Ondansetron 4 Mg Rapdis Tablet) 4 mg PO Q6H PRN PRN Reason: Nausea And Vomiting Polyethylene Glycol (Polyethylene Glycol 3350 17 Gm Powder Packet) 17 gm PO QD PRN PRN Reason: Constipation Senna (Sennosides 8.6 Mg Tablet) 8.6 mg PO QD PRN PRN Reason: Constipation Theophylline (Theophylline Anhydrous 400 Mg Tab.Er.24h) 400 mg PO BID [facility] Last Admin: 12/22/22 20:30 Dose: 400 mg Venlafaxine HCl (Venlafaxine Hcl Er 75 Mg Capsule) 150 mg PO DAILY [facility] Last Admin: 12/22/22 08:38 Dose: 150 mg Subjective Subjective Interval history: Plans were for discharge yesterday, but the patient voiced he was too dyspneic to go home, so he stayed overnight. Patient was wearing CPAP this morning and woke up; I had to remind him to put on his O2. He states he feels much better this morning. No new pulmonary complaints. My MA did more research on the patient's status. He was referred to [facility] because his insurance did not cover . He went for lung transplant evaluation; did not have evaluation for endobronchial valves. He was deemed too good to be placed on the transplant list. He had lost weight to meet criteria to even be a candidate for a transplant, but has gained it back. He has not had Prolastin since September 2021 (over 15 months). He does not have [place] coverage until January 15 of this year. Exam Constitutional Vital Signs - 24 hr 12/22/22 09:56 12/22/22 11:45 12/22/22 12:08 Temperature Pulse Rate 109 H 92 H Respiratory Rate Blood Pressure [Left Arm] Blood Pressure [Right Arm] Pulse Oximetry 95 Oxygen Delivery Method Nasal Cannula Oxygen Delivery Flow Rate 4 12/22/22 13:47 12/22/22 16:00 12/22/22 14:00 Temperature 98.7 F Pulse Rate 110 H 102 H 99 H Respiratory Rate 20 Blood Pressure [Left Arm] 161/83 H Blood Pressure [Right Arm] Pulse Oximetry 92 L Oxygen Delivery Method Nasal Cannula Oxygen Delivery Flow Rate 4 12/22/22 17:10 12/22/22 20:15 12/22/22 23:06 Temperature 98.3 F Pulse Rate 103 H Respiratory Rate 18 24 Blood Pressure [Left Arm] Blood Pressure [Right Arm] Pulse Oximetry 95 94 L Oxygen Delivery Method Nasal Cannula CPAP Nasal Cannula Oxygen Delivery Flow Rate 4 4 12/22/22 23:06 12/23/22 04:06 12/23/22 04:15 Temperature Pulse Rate 68 90 Respiratory Rate 20 20 Blood Pressure [Left Arm] Blood Pressure [Right Arm] Pulse Oximetry 94 L 90 L 93 L Oxygen Delivery Method Nasal Cannula Nasal Cannula Oxygen Delivery Flow Rate 4 4 4 12/23/22 05:12 Temperature 97.5 F L Pulse Rate Respiratory Rate 18 Blood Pressure [Left Arm] Blood Pressure [Right Arm] 148/87 H Pulse Oximetry 91 L Oxygen Delivery Method CPAP Oxygen Delivery Flow Rate Common normals: no apparent distress HENMT Other: Initially wearing CPAP, transitioned to nasal cannula. Upper dentures, no oral candidiasis. Chest Common normals: inspection of chest normal Respiratory Other: Patient was breathing fine initially, but when I discussed plans after discharge, he began the short gasping-type breathing he had the other days. He did not appear to be in any acute distress. Breath sounds are diminished but essentially clear. Cardio Other: RRR GI Other: Obese, soft Extremity Other: No edema Psych Other: Appeared fine initially, but question anxiety when discussing future plans.
[2022-12-23 08:27] LABS: Glucometer 248 mg/dL (74-106)
[2022-12-23] MEDS: GLIPIZIDE 10 MG TABLET PO (08:45)
[2022-12-23] MEDS: OMEPRAZOLE 20 MG CAPSULE.DR PO (08:46)
[2022-12-23] MEDS: METOPROLOL SUCCINATE 25 MG TAB.ER.24H PO (08:46)
[2022-12-23] MEDS: LEVOFLOXACIN IN DEXTROSE 5 % 750 MG/150 ML IV.SOLN 100 MG IV (08:46)
[2022-12-23] MEDS: INSULIN ASPART 300 UNIT/3 ML PEN SUBQ ×2 (08:47→12:34)
[2022-12-23] MEDS: VENLAFAXINE HCL ER 75 MG CAPSULE 150 MG PO (08:59)
[2022-12-23] MEDS: LISINOPRIL 5 MG TABLET PO (09:01)
[2022-12-23] MEDS: THEOPHYLLINE ANHYDROUS 400 MG TAB.ER.24H PO (09:02)
--- NOTE | 2022-12-23 09:50 | CM.NOTE ---
Rounds made with Dr. Gonzalez. Plan for discharge is today. Currently has oxygen/CPAP at home. No further needs identified.
[2022-12-23] MEDS: ARIPIPRAZOLE 5 MG TABLET 10 MG PO (09:53)
[2022-12-23 10:35] LABS: Theophylline 10.1 ug/mL (10.0-20.0)
[2022-12-23 11:01] LABS: Glucometer 271 mg/dL (74-106)
--- NOTE | 2022-12-24 11:08 | CM.DCFOLLOWU ---
FIRST ATTEMPT AT DISCHARGE FOLLOW UP PHONE CALL 12/24/2022-NO ANSWER Person spoke with: How are you feeling? How is your pain? Did you understand your discharge instructions? Do you have any questions about your discharge instructions? Were you given any prescriptions at discharge? Were you able to get your prescriptions filled? Do you understand how to take your medications as ordered? Do you have any questions about your follow up appointment and do you plan to keep your follow up appointment? Is there anything else that you would like to discuss? Questions/Comments/Concerns/Other:
--- NOTE | 2022-12-27 12:01 | CM.DCFOLLOWU ---
SECOND ATTEMPT MAKING DISCHARGE FOLLOW UP CALL TO PATIENT WITH NO ANSWER.
== END 2022-12-23 13:55 | disposition home or self-care (01) | DRG 191 ==
LOC: ER 21:27 → MS 22:36
PROVIDERS: Internal Medicine; Admitting Provider Family Medicine; Emergency Provider Emergency Medicine; PCP Family Medicine; Visit Provider Family Medicine
DX: J43.9 Emphysema, unspecified (principal); J96.11 Chronic respiratory failure with hypoxia; E88.01 Alpha-1-antitrypsin deficiency; F41.1 Generalized anxiety disorder; I10 Essential (primary) hypertension; E11.9 Type 2 diabetes mellitus without complications; G47.33 Obstructive sleep apnea (adult) (pediatric); Z68.39 Body mass index [BMI] 39.0-39.9, adult; E66.01 Morbid (severe) obesity due to excess calories; R79.89 Other specified abnormal findings of blood chemistry; R06.02 Shortness of breath; T50.996A Underdosing of other drugs, medicaments and biological substances, initial encounter; Z99.81 Dependence on supplemental oxygen; Z91.120 Patient's intentional underdosing of medication regimen due to financial hardship; Z79.84 Long term (current) use of oral hypoglycemic drugs; Z79.51 Long term (current) use of inhaled steroids; Z79.899 Other long term (current) drug therapy; Z87.891 Personal history of nicotine dependence
CPT/HCPCS: 36415; 36569; 36592; 36600; 71045; 71275; 80048; 80053; 80198; 82805; 83735; 83880; 84484; 85025; 93005; 94640; 94761; 96372; 96374; 96375; 96376; 99285; C1887; G0378; J2930; Q9967

== ENCOUNTER 2023-02-23 19:57 | Outpatient (OUT) | payer MEDICARE, SELFPAY | END 2023-02-23 19:58 | disposition home or self-care (01) | LOC: SLEEP 19:57 | PROVIDERS: PCP Internal Medicine; Visit Provider Internal Medicine | DX: G47.33 Obstructive sleep apnea (adult) (pediatric) (principal) | CPT/HCPCS: 95811 ==

== ENCOUNTER 2023-06-20 11:11 | Observation (INO) | payer MEDICARE, SELFPAY ==
[2023-06-20] VITALS (22 sets, daily range): BP systolic 152–178; BP diastolic 80–108; PULSE 77–117; RESP 18–35; TEMP 36.5–37.1; O2SAT 92–98; BMI 36.9; BMI 37.3
--- NOTE | 2023-06-20 11:30 | XR_ITS ---
The [address] [address] Patient Name: RICARDO HYLTON MRN: [id number] date: 1960 Sex: M Assigned Patient Location: ER Current Patient Location: ER Accession/Order Number: [id number] Exam Date: 06/20/2023 12:05 Report Date: 06/20/2023 12:38 At the request of: RIZWAN KRUGER Procedure: XR chest 1V EXAM: XR chest 1V HISTORY: SOB, hx copd COMPARISON: Chest study dated 12/20/2022 TECHNIQUE: AP view of the chest was obtained at 12:07 PM. FINDINGS: Heart and mediastinal contours are unremarkable in appearance. No acute infiltrate or consolidations are seen. Generalized COPD. No obvious pneumothorax. Nipple ring noted on the left. Old fracture deformity of the right clavicle. XR/XR chest 1V IMPRESSION: COPD. No acute process seen in the chest. Electronically authenticated by: STEPHANIE GAMEZ Date: 06/20/2023 12:38
--- NOTE | 2023-06-20 11:30 | ECG_ITS ---
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
--- NOTE | 2023-06-20 11:31 | ED.SOB1 ---
HPI - SOB/Dyspnea General Chief Complaint: Shortness of Breath/Dyspnea Stated Complaint: SHORTNESS OF BREATH Time Seen by Provider: 06/20/23 11:18 Source: patient Mode of arrival: Wheelchair Limitations: no limitations History of Present Illness HPI Narrative: 62-year-old male presents for shortness of breath. He's had this for a month and it's getting worse. He's been using his nebulizer and inhalers at home. No fever. He gets much more short of breath with exertion. No vomiting or diarrhea. He has not complained to me of chest pain. Related Data Home Medications Medication Instructions Recorded Confirmed albuterol sulfate 90 mcg/actuation 2 puff inhalation Q4H PRN 12/20/22 06/20/23 aerosol inhaler shortness of breath or wheezing aripiprazole 10 mg tablet 10 mg PO DAILY 12/20/22 06/20/23 fluticasone fur. 100 mcg-umeclid 1 inh inhalation Q24H 12/20/22 06/20/23 62.5 mcg-vilant 25 mcg inhalat.powder (Trelegy Ellipta) glipizide 10 mg tablet 10 mg PO BID 12/20/22 06/20/23 hydrocodone 5 mg-acetaminophen 325 1 tab PO Q6H PRN pain 12/20/22 06/20/23 mg tablet lisinopril 5 mg tablet 5 mg PO DAILY 12/20/22 06/20/23 metoprolol succinate 25 mg 25 mg PO DAILY 12/20/22 06/20/23 tablet,extended release 24 hr omeprazole 20 mg capsule,delayed 20 mg PO DAILY 12/20/22 06/20/23 release theophylline 400 mg 400 mg PO Q12H 12/20/22 12/20/22 tablet,extended release 24 hr venlafaxine 75 mg capsule,extended 150 mg PO DAILY 12/20/22 12/20/22 release 24 hr alprazolam 0.5 mg tablet 0.5 mg PO BID PRN anxiety 06/20/23 06/20/23 empagliflozin 25 mg tablet 25 mg PO DAILY 06/20/23 06/20/23 (Jardiance) latanoprost 0.005 % eye drops 1 drp ophthalmic (eye) DAILY 06/20/23 06/20/23 prednisone 20 mg tablet 20 mg PO DAILY 06/20/23 06/20/23 semaglutide 0.25 mg or 0.5 mg (2 0.25 mg subcut .weekly 06/20/23 06/20/23 mg/3 mL) subcutaneous pen injector (Ozempic) venlafaxine 150 mg 150 mg PO BID 06/20/23 06/20/23 capsule,extended release 24 hr Previous Rx's Medication Instructions Recorded levofloxacin 750 mg tablet 750 mg PO DAILY 7 days #7 tabs 12/22/22 prednisone 10 mg tablet 50 mg PO DAILY #47 tabs 12/22/22 Allergies Allergy/AdvReac Type Severity Reaction Status Date / Time metformin Allergy Intermediate Verified 06/20/23 11:16 Review of Systems ROS Narrative A ten point review of systems is negative except as noted above. PFSH PFSH Social History Smoking status: Former smoker Gender Identity: male Exam Narrative Exam Narrative: Nurses note and vital signs reviewed and patient is not hypoxic. General: The patient appears dyspneic at rest. Skin: Warm, dry, no pallor noted. There is no rash noted. Head: Normocephalic, atraumatic Eye: Normal conjunctiva, no drainage Ears, Nose, Mouth, and Throat: oral mucosa is moist. Nares patent. Cardiovascular: Regular Rate and Rhythm Respiratory: sounds are diminished but equal Back: non-tender GI: obese and nontender Musculoskeletal: The patient has no evidence of calf tenderness, no pitting edema, symmetrical pulses noted bilaterally Neurological: A&O, normal speech Psychiatric: Cooperative Constitutional Vital Signs, click to edit/add: Last Vital Signs Temp 97.7 F 06/20/23 11:16 Pulse 85 06/20/23 12:06 Resp 35 H 06/20/23 11:50 BP 167/98 H 06/20/23 12:06 Pulse Ox 98 06/20/23 12:07 O2 Del Method Nasal Cannula 06/20/23 12:07 O2 Flow Rate 2 06/20/23 12:07 Course Vital Signs Vital signs: Vital Signs Temperature 97.7 F 06/20/23 11:16 Pulse Rate 86 06/20/23 11:16 Respiratory Rate 22 06/20/23 11:16 Blood Pressure 165/88 H 06/20/23 11:16 Pulse Oximetry 94 L 06/20/23 11:16 Oxygen Delivery Method Nasal Cannula 06/20/23 11:16 Oxygen Delivery Flow Rate 4 06/20/23 11:16 Temperature 97.7 F 06/20/23 11:16 Pulse Rate 85 06/20/23 12:06 Respiratory Rate 35 H 06/20/23 11:50 Blood Pressure 167/98 H 06/20/23 12:06 Pulse Oximetry 98 06/20/23 12:07 Oxygen Delivery Method Nasal Cannula 06/20/23 12:07 Oxygen Delivery Flow Rate 2 06/20/23 12:07 MDM - SOB/Dyspnea MDM Narrative Medical decision making narrative: my clinical impressions that he has chronic obstructive pulmonary disease exacerbation. We discussed admission versus going home and he prefers to be admitted and I agree with this plan. There is no evidence of pneumonia or Covid or influenza. He was given IV steroids and multiple aerosol treatments. Treatment diagnosis and disposition were discussed with the patient. Differential Diagnosis Differential diagnosis: Likely acute exacerbation of chronic obstructive airways disease, community acquired pneumonia and other (Covid, viral upper respiratory infection) Lab Data Attestation: I reviewed the patient's lab results. Labs: Lab Results 06/20/23 Range/Units 11:40 WBC 8.5 (4.0-11.0) 10^3/uL RBC 5.40 (4.70-6.10) 10^6/uL Hgb 16.6 (14.0-18.0) g/dL Hct 50.9 (42.0-54.0) % MCV 94.3 H (80.0-94.0) fL MCH 30.7 (25.9-34.0) pg MCHC 32.6 (29.9-35.2) g/dL RDW 14.1 (11.0-15.0) % Plt Count 300 (150-450) 10^3/uL MPV 9.6 (9.5-13.5) fL Neut % (Auto) 64.3 (43.0-75.0) % Lymph % (Auto) 26.1 (20.5-60.0) % [place] % (Auto) 7.0 (1.7-12.0) % Eos % (Auto) 1.3 (0.9-7.0) % Baso % (Auto) 0.8 (0.2-2.0) % Neut # (Auto) 5.5 (1.4-6.5) 10^3/uL Lymph # (Auto) 2.2 (1.2-3.8) 10^3/uL [place] # (Auto) 0.6 (0.3-0.8) 10^3/uL Eos # (Auto) 0.1 (0.0-0.7) 10^3/uL Baso # (Auto) 0.1 (0.0-0.1) 10^3/uL Abs Immat Gran (auto) 0.04 H (0.00-0.03) 10^3/uL Imm/Tot Granulo (auto) 0.5 (0.0-0.5) % Sodium 141 (136-145) mmol/L Potassium 4.1 (3.5-5.1) mmol/L Chloride 101 (98-107) mmol/L Carbon Dioxide 30.4 (21.0-32.0) mmol/L Anion Gap 13.7 BUN 22.0 H (7.0-18.0) mg/dL Creatinine 0.94 (0.70-1.30) mg/dL Est GFR ( Amer) >60 (>=60) Est GFR (Non-Af Amer) >60 (>=60) BUN/Creatinine Ratio 23.4 Glucose 92 (74-106) mg/dL Calcium 10.0 (8.5-10.1) mg/dL Troponin I High Sens 12.8 (4.0-76.1) pg/mL SARS-CoV-2 (PCR) Negative (NEGATIVE) Influenza Type A Ag Negative Influenza Type B Ag Negative Imaging Data Chest x-ray: Radiologist's impression: Procedure: XR chest 1V EXAM: XR chest 1V HISTORY: SOB, hx copd COMPARISON: Chest study dated 12/20/2022 TECHNIQUE: AP view of the chest was obtained at 12:07 PM. FINDINGS: Heart and mediastinal contours are unremarkable in appearance. No acute infiltrate or consolidations are seen. Generalized COPD. No obvious pneumothorax. Nipple ring noted on the left. Old fracture deformity of the right clavicle. IMPRESSION: COPD. No acute process seen in the chest. Electronically authenticated by: STEPHANIE GAMEZ Date: 06/20/2023 12: ECG Data Attestation: I personally reviewed and interpreted this ECG as follows: (EKG on my interpretation shows normal sinus rhythm with a rate of 82.) Critical Care Time Critical Care Time Critical Care Time: Yes Total Critical Care Time: 35 Attestation: Due to the high probability of sudden and clinically significant deterioration in the patient's condition he/she required the highest level of my preparedness to intervene urgently I provided critical care time including documentation time, medication orders and management, reevaluation, vital sign assessment, ordering and reviewing of lab tests, ordering and reviewing of x-ray studies, and admission orders. Aggregate critical care time is 35 minutes including only time during which I was engaged in work directly related to his/her care and did not include time spent treating other patients simultaneously. Discharge Plan Discharge Chief Complaint: Shortness of Breath/Dyspnea Clinical Impression: Acute exacerbation of chronic obstructive pulmonary disease Patient Disposition: Admitted As Inpatient Time of Disposition Decision: 12:57 Condition: Fair
[2023-06-20] MEDS: METHYLPREDNISOLONE SOD SUCC PF 125 MG/2 ML VIAL IVP (11:36)
[2023-06-20] MEDS: ALBUTEROL SULFATE 2.5 MG/3 ML VIAL NEB IH ×2 (11:44→13:04)
--- NOTE | 2023-06-20 11:48 | RESP.RT ---
wears 4L at home
[2023-06-20 11:54] LABS: Basophils Absolute Auto 0.1 10^3/uL (0.0-0.1); Basophils Percent Auto 0.8 % (0.2-2.0); Eosinophils Absolute Auto 0.1 10^3/uL (0.0-0.7); Eosinophils Percent Auto 1.3 % (0.9-7.0); Hematocrit 50.9 % (42.0-54.0); Hemoglobin 16.6 g/dL (14.0-18.0); Immature Granulocytes Abs Auto 0.04 10^3/uL (0.00-0.03); Immature Granulocytes Pct Auto 0.5 % (0.0-0.5); Lymphocytes Absolute Auto 2.2 10^3/uL (1.2-3.8); Lymphocytes Percent Auto 26.1 % (20.5-60.0); Mean Corpuscular HGB Conc 32.6 g/dL (29.9-35.2); Mean Corpuscular Hemoglobin 30.7 pg (25.9-34.0); Mean Corpuscular Volume 94.3 fL (80.0-94.0); Mean Platelet Volume 9.6 fL (9.5-13.5); Monocytes Absolute Auto 0.6 10^3/uL (0.3-0.8); Neutrophils Absolute Auto 5.5 10^3/uL (1.4-6.5); Neutrophils Percent Auto 64.3 % (43.0-75.0); Platelet Count 300 10^3/uL (150-450); Red Cell Distribution Width 14.1 % (11.0-15.0); White Blood Count 8.5 10^3/uL (4.0-11.0)
[2023-06-20 12:05] LABS: Influenza Virus A Antigen Negative; Influenza Virus B Antigen Negative; Internal Control Within Normal Limits; SARS-CoV-2 Ag NEGATIVE (NEGATIVE)
[2023-06-20 12:15] LABS: Anion Gap 13.7; BUN Creatinine Ratio 23.4; Carbon Dioxide 30.4 mmol/L (21.0-32.0); Chloride 101 mmol/L (98-107); Estimated GFR (African America >60 (>=60); Estimated GFR (Non-African Ame >60 (>=60); Glucose 92 mg/dL (74-106); Potassium 4.1 mmol/L (3.5-5.1); Sodium 141 mmol/L (136-145); Troponin I High Sensitivity 12.8 pg/mL (4.0-76.1)
[2023-06-20] MEDS: CEFTRIAXONE 1,000 MG in 0.9 % SODIUM CHLORIDE 50 ML 100 MG IV (13:43)
[2023-06-20] MEDS: AZITHROMYCIN 500 MG in 0.9 % SODIUM CHLORIDE 250 ML 250 MG IV (15:10)
[2023-06-20] MEDS: IPRATROPIUM/ALBUTEROL SULFATE 3 ML AMPUL.NEB IH ×3 (15:43→23:09)
[2023-06-20 15:44] LABS: SARS-CoV-2 NAA NOT DETECTED (NOT DETECTE)
--- NOTE | 2023-06-20 15:47 | P.HP_ITS ---
<Statement entered by Shaikh Rosamaria MD - 06/21/23 07:21> This documentation has been reviewed and approved. Patient was not seen personally but his chart was reviewed, case discussed with MASTER COSMETOLOGIST. Chronic resp failure with hypoxia, presented with worsening SOB, admitted for COPD exacerbation Assessment and Plan COPD exacerbation Chronic resp failure with hypoxia RANCHO Depression C/w systemic steroids, empirical treatment with Rocephin/azithromycin. Closely monitor. H&P: HPI History of Present Illness Chief complaint: SHORTNESS OF BREATH, COPD EXACERBATION Narrative: Date/time of exam: 06/20/23 0245 This is a 62-year-old male patient with a past medical history as outlined below including COPD with chronic respiratory failure on home O2 at 4 L, DM 2, HTN, GERD, depression; who presented to the ED this morning complaining of severe and worsening shortness of breath. The patient reports a 2-3-day history of worsening shortness of breath with his chest feeling very tight and tachypnea with minimal exertion. He denies significantly increased cough, fevers, or chills. Denies nausea and vomiting or cardiac chest discomfort, but did note pleuritic chest pain with deep breaths. The patient has been using his inhalers more frequently but cannot seem to get his breathing symptoms under control. Work-up in the ED was mostly unremarkable with normal labs and EKG was sinus rhythm and PACs. Chest x-ray showed no acute disease. COVID and Influenza swabs were negative. The patient's clinical presentation however, was consistent with COPD exacerbation and severe activity intolerance. He is being admitted to the hospitalist service in observation for COPD exacerbation. At the time of my exam the patient is sitting up on the side of the bed using pursed lip breathing as he just returned from using the restroom. He is tachypneic and his inspiration is shallow. Patient reports that he's been using his home CPAP during the day at times as this helps him to feel better like he can get deeper breaths. Although the patient is stable on 2 L of O2 in the hospital at this time his work of breathing is impaired and he has notable activity intolerance. Review of Systems ROS Status of ROS 10 or more systems reviewed and unremark able except as noted in history and below [facility] Medical History (Updated 06/20/23 @ 14:17 by Arelis Moreno LPN) Heartburn ?R12 - Heartburn (ICD-10) Depression ?F32.A - Depression, unspecified (ICD-10) Hypertension ?I10 - Essential (primary) hypertension (ICD-10) Type 2 diabetes mellitus ?E11.9 - Type 2 diabetes mellitus without complications (ICD-10) Family History (Updated 06/20/23 @ 14:19 by Arelis Moreno LPN) Mother Family history of CHF (congestive heart failure) Family history of diabetes mellitus Family history of hypertension Grandmother Family history of CHF (congestive heart failure) Family history of diabetes mellitus Father Family history of COPD (chronic obstructive pulmonary disease) Family history of cancer Social History Smoking status: Former smoker Gender Identity: male Meds Home Medications and Allergies Home Medications Medication Instructions Recorded Confirmed Type albuterol sulfate 90 mcg/actuation 2 puff inhalation Q4H PRN 12/20/22 06/20/23 History aerosol inhaler shortness of breath or wheezing aripiprazole 10 mg tablet 10 mg PO DAILY 12/20/22 06/20/23 History fluticasone fur. 100 mcg-umeclid 1 inh inhalation Q24H 12/20/22 06/20/23 History 62.5 mcg-vilant 25 mcg inhalat.powder (Trelegy Ellipta) glipizide 10 mg tablet 10 mg PO BID 12/20/22 06/20/23 History hydrocodone 5 mg-acetaminophen 325 1 tab PO Q6H PRN pain 12/20/22 06/20/23 History mg tablet lisinopril 5 mg tablet 5 mg PO DAILY 12/20/22 06/20/23 History metoprolol succinate 25 mg 25 mg PO DAILY 12/20/22 06/20/23 History tablet,extended release 24 hr omeprazole 20 mg capsule,delayed 20 mg PO DAILY 12/20/22 06/20/23 History release theophylline 400 mg 400 mg PO Q12H 12/20/22 06/20/23 History tablet,extended release 24 hr venlafaxine 75 mg capsule,extended 150 mg PO DAILY 12/20/22 06/20/23 History release 24 hr alprazolam 0.5 mg tablet 0.5 mg PO BID PRN anxiety 06/20/23 06/20/23 History empagliflozin 25 mg tablet 25 mg PO DAILY 06/20/23 06/20/23 History (Jardiance) latanoprost 0.005 % eye drops 1 drp ophthalmic (eye) DAILY 06/20/23 06/20/23 History prednisone 20 mg tablet 20 mg PO DAILY 06/20/23 06/20/23 History semaglutide 0.25 mg or 0.5 mg (2 0.5 mg subcut .weekly 06/20/23 06/20/23 History mg/3 mL) subcutaneous pen injector (Ozempic) venlafaxine 150 mg 150 mg PO BID 06/20/23 06/20/23 History capsule,extended release 24 hr Allergies Allergy/AdvReac Type Severity Reaction Status Date / Time metformin Allergy Intermediate Verified 06/20/23 11:16 Exam Constitutional Vital Signs, click to edit/add: Last Vital Signs Temp 98.8 F 06/20/23 14:32 Pulse 100 H 06/20/23 14:32 Resp 20 06/20/23 14:32 BP 178/80 H 06/20/23 14:32 Pulse Ox 94 L 06/20/23 14:32 O2 Del Method Nasal Cannula 06/20/23 15:29 O2 Flow Rate 2 06/20/23 14:32 Common normals: no apparent distress, oriented x3, alert and well nourished General appearance: cooperative Orientation/consciousness: Yes awake HENND Common normals: normocephalic, head/scalp atraumatic, hearing grossly normal bilaterally, external nose normal and moist oral mucous membranes Head and scalp: normocephalic and atraumatic Eye Common normals: PERRL, EOMs intact bilaterally, conjunctivae normal and no scleral icterus Alignment: alignment normal Eyelid: eyelids normal Neck & C-Spine Common normals: full ROM, supple and no JVD Chest Common normals: inspection of chest normal Chest: symmetrical chest wall rise Respiratory Common normals: no retractions and clear to auscultation bilaterally Auscultation: clear to auscultation bilaterally Cardio Common normals: no JVD, regular rhythm, S1 normal heart sound, S2 normal heart sound, no gallops, no clicks, no murmurs, no rub and peripheral pulses 2+ throughout GI Common normals: Normal to inspection, nondistended, normoactive bowel sounds present, soft to palpation, non-tender, no hepatosplenomegaly, no masses and no bruits Bladder/kidney exam: bladder normal to palpation Back & Pelvis Common normals: thoracic and lumbar spine normal to inspection Extremity Common normals: normal capillary refill and no pedal edema General: normal exam except as noted; no cyanosis Neuro [place] Coma Scale: GCS not evaluated Common normals: CN's II-XII intact bilaterally, moves all extremities, no focal motor deficits and no sensory deficits noted Speech: speech normal Motor exam: strength 5/5 throughout Psych Common normals: mental status grossly normal, thought process normal, affect normal and activity/motor behavior normal Results Labs Labs: Short CBC 06/20/23 Range/Units 11:40 WBC 8.5 (4.0-11.0) 10^3/uL Hgb 16.6 (14.0-18.0) g/dL Hct 50.9 (42.0-54.0) % Plt Count 300 (150-450) 10^3/uL BMP 06/20/23 11:40 Sodium 141 Potassium 4.1 Chloride 101 Carbon Dioxide 30.4 BUN 22.0 H Creatinine 0.94 Glucose 92 Calcium 10.0 Pulse Oximetry Attestation: I have reviewed the pertinent pulse oximetry results. Imaging Chest x-ray: Attestation: I have reviewed the pertinent imaging results. Radiologist's impression: IMPRESSION: COPD. No acute process seen in the chest. Assessment and Plan Assessment and Plan (1) Acute exacerbation of chronic obstructive pulmonary disease: Assessment and Plan: ACUTE * Adm observation * Duonebs scheduled and PRN * Solu-medrol 125 mg IVP given in ED, then 40 mg q8h thereafter * Add Pulmicort nebs BID * IVPB Rocephin and azithromycin for suspected underlying bronchitis * Low threshold to consult Pulmonology as this pt follows closely with Dr Pacheco * Pt stopped taking theophylline on his own but can't articulate why - consider resuming pending clinical course * OK to use home CPAP PRN * COVID and Influenza swab neg (2) Depression: Assessment and Plan: CHRONIC * Continue home venlafaxine, alprazolam (3) Heartburn: Assessment and Plan: CHRONIC * Continue home PPI (4) Hypertension: Assessment and Plan: CHRONIC * Continue home Toprol XL * Pt stopped taking home lisinopril but cannot articulate why he stopped * Consider resuming pending clinical course if BP remains uncontrolled (5) Type 2 diabetes mellitus: Assessment and Plan: CHRONIC * Continue home Glipizide, Jardiance and Ozempic (may use home med) * ACHS glucometer check * Med dose SSI for glucose correction
[2023-06-20 16:01] LABS: Glucometer 177 mg/dL (74-106)
[2023-06-20] MEDS: GLIPIZIDE 10 MG TABLET PO (16:26)
[2023-06-20] MEDS: ENOXAPARIN SODIUM 40 MG/0.4 ML SYRINGE SUBQ (16:26)
[2023-06-20] MEDS: BUDESONIDE 0.5 MG/2 ML AMPULE NEB IH (19:53)
[2023-06-20 20:16] LABS: Glucometer 242 mg/dL (74-106)
[2023-06-20] MEDS: VENLAFAXINE HCL ER 150 MG CAPSULE PO (20:17)
[2023-06-20] MEDS: HYDRALAZINE HCL 20 MG/ML VIAL 10 MG IVP (20:17)
[2023-06-20] MEDS: METHYLPREDNISOLONE SOD SUCC PF 40 MG/ML VIAL IVP (20:17)
[2023-06-20] MEDS: GUAIFENESIN 600 MG TAB.ER.12H PO (20:17)
[2023-06-20] MEDS: INSULIN ASPART 300 UNIT/3 ML PEN SUBQ (21:27)
[2023-06-20] MEDS: INSULIN DETEMIR 300 UNIT/3 ML INSULN.PEN 20 UNIT SUBQ (21:28)
[2023-06-21] VITALS (13 sets, daily range): BP systolic 121–152; BP diastolic 75–92; PULSE 96–113; RESP 18–24; TEMP 36.6–36.7; O2SAT 92–95
[2023-06-21] MEDS: IPRATROPIUM/ALBUTEROL SULFATE 3 ML AMPUL.NEB IH ×6 (03:52→23:13)
[2023-06-21] MEDS: METHYLPREDNISOLONE SOD SUCC PF 40 MG/ML VIAL IVP ×3 (04:08→20:41)
[2023-06-21] MEDS: OMEPRAZOLE 20 MG CAPSULE.DR PO (06:09)
[2023-06-21 06:32] LABS: Alanine Aminotransferase 28 U/L (16-63); Alkaline Phosphatase 77 U/L (46-116); Anion Gap 18.5; Aspartate Amino Transferase 10 U/L (15-37); BUN Creatinine Ratio 23.6; Bilirubin Total 0.4 mg/dL (0.2-1.0); Calcium 9.8 mg/dL (8.5-10.1); Carbon Dioxide 24.5 mmol/L (21.0-32.0); Chloride 101 mmol/L (98-107); Estimated GFR (African America >60 (>=60); Estimated GFR (Non-African Ame >60 (>=60); Glucose 186 mg/dL (74-106); Sodium 140 mmol/L (136-145); Total Protein 7.8 g/dL (6.4-8.2)
[2023-06-21 06:33] LABS: Albumin Globulin Ratio 1.1; Albumin Level 4.1 g/dL (3.4-5.0); Globulin 3.7 g/dL
[2023-06-21 06:42] LABS: Hematocrit 50.6 % (42.0-54.0); Hemoglobin 16.6 g/dL (14.0-18.0); Red Blood Count 5.42 10^6/uL (4.70-6.10); White Blood Count 11.1 10^3/uL (4.0-11.0)
[2023-06-21 06:43] LABS: Basophils Percent Auto 0.2 % (0.2-2.0); Immature Granulocytes Pct Auto 0.6 % (0.0-0.5); Lymphocytes Absolute Auto 0.8 10^3/uL (1.2-3.8); Lymphocytes Percent Auto 7.5 % (20.5-60.0); Mean Corpuscular HGB Conc 32.8 g/dL (29.9-35.2); Mean Corpuscular Hemoglobin 30.6 pg (25.9-34.0); Mean Corpuscular Volume 93.4 fL (80.0-94.0); Monocytes Absolute Auto 0.4 10^3/uL (0.3-0.8); Monocytes Percent Auto 3.3 % (1.7-12.0); Neutrophils Absolute Auto 9.9 10^3/uL (1.4-6.5); Neutrophils Percent Auto 88.4 % (43.0-75.0); Platelet Count 334 10^3/uL (150-450); Red Cell Distribution Width 14.3 % (11.0-15.0)
[2023-06-21 06:44] LABS: Immature Granulocytes Abs Auto 0.07 10^3/uL (0.00-0.03)
[2023-06-21] MEDS: BUDESONIDE 0.5 MG/2 ML AMPULE NEB IH ×2 (07:29→19:54)
[2023-06-21 07:33] LABS: Glucometer 167 mg/dL (74-106)
[2023-06-21] MEDS: GLIPIZIDE 10 MG TABLET PO ×2 (07:57→16:24)
[2023-06-21] MEDS: INSULIN ASPART 300 UNIT/3 ML PEN SUBQ ×4 (07:58→22:23)
[2023-06-21 08:19] LABS: A. calcoaceticus-baumannii Cpx NOT DETECTED (NOT DETECTE); Bacteroides fragilis NOT DETECTED (NOT DETECTE); Candida albicans NOT DETECTED (NOT DETECTE); Candida auris NOT DETECTED (NOT DETECTE); Candida glabrata NOT DETECTED (NOT DETECTE); Candida krusei NOT DETECTED (NOT DETECTE); Candida parapsilosis NOT DETECTED (NOT DETECTE); Enterobacter cloacae complex NOT DETECTED (NOT DETECTE); Enterobacterales NOT DETECTED (NOT DETECTE); Enterococcus faecalis NOT DETECTED (NOT DETECTE); Enterococcus faecium NOT DETECTED (NOT DETECTE); Haemophilus influenzae NOT DETECTED (NOT DETECTE); Klebsiella aerogenes NOT DETECTED (NOT DETECTE); Klebsiella pneumoniae group NOT DETECTED (NOT DETECTE); Listeria monocytogenes NOT DETECTED (NOT DETECTE); Neisseria meningitidis NOT DETECTED (NOT DETECTE); Proteus spp. NOT DETECTED (NOT DETECTE); Pseudomonas aeruginosa NOT DETECTED (NOT DETECTE); Salmonella spp. NOT DETECTED (NOT DETECTE); Serratia marcescens NOT DETECTED (NOT DETECTE); Staphylococcus lugdunensis NOT DETECTED (NOT DETECTE); Stenotrophomonas maltophilia NOT DETECTED (NOT DETECTE); Streptococcus agalactiae NOT DETECTED (NOT DETECTE); Streptococcus pneumoniae NOT DETECTED (NOT DETECTE); Streptococcus pyogenes NOT DETECTED (NOT DETECTE); Streptococcus spp. NOT DETECTED (NOT DETECTE)
[2023-06-21 08:20] LABS: Candida tropicalis NOT DETECTED (NOT DETECTE); Cryptococcus neoformans/gattii NOT DETECTED (NOT DETECTE)
[2023-06-21] MEDS: VENLAFAXINE HCL ER 150 MG CAPSULE PO ×2 (08:45→22:17)
[2023-06-21] MEDS: ARIPIPRAZOLE 5 MG TABLET 10 MG PO (08:45)
[2023-06-21] MEDS: METOPROLOL SUCCINATE 25 MG TAB.ER.24H PO (08:45)
[2023-06-21] MEDS: CANAGLIFLOZIN 100 MG TABLET 300 MG PO (08:45)
[2023-06-21] MEDS: GUAIFENESIN 600 MG TAB.ER.12H PO ×2 (08:45→20:46)
[2023-06-21] MEDS: AZITHROMYCIN 500 MG in 0.9 % SODIUM CHLORIDE 250 ML 250 MG IV (08:47)
[2023-06-21 09:35] LABS: mecA/C DETECTED (NOT DETECTE)
[2023-06-21 09:36] LABS: Source BLOOD; Staphylococcus epidermidis DETECTED (NOT DETECTE); Staphylococcus spp. DETECTED (NOT DETECTE)
[2023-06-21] MEDS: CEFTRIAXONE 1,000 MG in 0.9 % SODIUM CHLORIDE 50 ML 100 MG IV (10:11)
[2023-06-21] MEDS: LISINOPRIL 5 MG TABLET PO (10:15)
--- NOTE | 2023-06-21 11:00 | CM.NOTE ---
Rounds made with Dr. Blank, no discharge for pt today.
[2023-06-21 11:15] LABS: Glucometer 190 mg/dL (74-106)
--- NOTE | 2023-06-21 12:29 | P.PN_ITS ---
<Statement entered by Shaikh Rosamaria MD - 06/21/23 14:36> This documentation has been reviewed and approved. Seen and examined. Doing well but still quite SOB and has diminished breath sonunds. Exam: Normal RR, wheezing with diminished lung sounds b/l Assessment/plan COPD exacerbation Chronic resp failure with hypoxia C/w systemic steroids, inhaled bronchodilators. OPEP ordered. Closely monitor as high risk of worsening. Progress Note: Subjective Subjective Interval history: Date/time of exam: 06/21/23 08 The patient is sitting up on the side of the bed preparing to eat his breakfast. He continues to have significant shortness of breath with activity but this is mildly improved from yesterday. He is still frequently tripoding while at rest but his overall work of breathing is a little improved. The patient reports that he quit taking his theophylline recently because his pharmacy was no longer able to obtain this medication. It is likely that discontinuation of this therapy contributed to his acute exacerbation. We have recommended the patient pursue filling this prescription through other pharmacies and we will initiate theophylline dosing today in the hospital. We will continue the current course of care and consider discharge in the next 24 to 48 hours. Exam Constitutional Vital Signs, click to edit/add: Last Vital Signs Temp 97.8 F 06/21/23 06:00 Pulse 113 H 06/21/23 06:00 Resp 20 06/21/23 07:36 BP 150/86 H 06/21/23 10:15 Pulse Ox 95 06/21/23 11:19 O2 Del Method Nasal Cannula 06/21/23 11:19 O2 Flow Rate 4 06/21/23 11:19 FiO2 30 06/21/23 00:10 Common normals: no apparent distress, oriented x3 and alert General appearance: cooperative Orientation/consciousness: Yes awake [facility] Common normals: normocephalic, head/scalp atraumatic and hearing grossly normal bilaterally Eye Common normals: PERRL, EOMs intact bilaterally, conjunctivae normal and no scleral icterus General eye: normal appearance of both eyes Chest Common normals: inspection of chest normal Chest: symmetrical chest wall rise Respiratory Common normals: clear to auscultation bilaterally Effort & inspection: able to speak in complete sentences, pursed lip breathing a nd uses accessory muscles (mild, slightly improved from admission) Auscultation: clear to auscultation bilaterally and diminished lung sounds (BLL, slightly improved air exchange in the lower lobes) Cardio Common normals: regular rhythm, S1 normal heart sound, S2 normal heart sound, no murmurs and peripheral pulses 2+ throughout GI Common normals: Normal to inspection, nondistended, normoactive bowel sounds present, soft to palpation, non-tender and no hepatosplenomegaly Bladder/kidney exam: bladder normal to palpation Extremity Common normals: normal to inspection and no calf tenderness General: no cyanosis and no edema Neuro Common normals: CN's II-XII intact bilaterally, moves all extremities, no focal motor deficits and no sensory deficits noted Psych Common normals: mental status grossly normal Progress Note: Objective Labs Labs: Short CBC 06/21/23 Range/Units 04:18 WBC 11.1 H (4.0-11.0) 10^3/uL Hgb 16.6 (14.0-18.0) g/dL Hct 50.6 (42.0-54.0) % Plt Count 334 (150-450) 10^3/uL BMP 06/21/23 04:18 Sodium 140 Potassium 4.0 Chloride 101 Carbon Dioxide 24.5 BUN 26.0 H Creatinine 1.10 Glucose 186 H Calcium 9.8 Liver Function 06/21/23 Range/Units 04:18 Total Bilirubin 0.4 (0.2-1.0) mg/dL AST 10 L (15-37) U/L ALT 28 (16-63) U/L Alkaline Phosphatase 77 (46-116) U/L Albumin 4.1 (3.4-5.0) g/dL Progress Note: A&P Assessment and Plan (1) Acute exacerbation of chronic obstructive pulmonary disease: Assessment and Plan: ACUTE * Mildly improved overnight * Continue Duonebs scheduled and PRN * Continue Solu-medrol 40 mg q8h * Continue Pulmicort nebs BID * IVPB Rocephin and azithromycin for suspected underlying bronchitis * Resume home theophylline. Pt has been unable to refill home prescription as pharmacy does not have the medication anymore. * Abrupt cessation may have contributed to his acute exacerbation * Low threshold to consult Pulmonology as this pt follows closely with Dr Pacheco * OK to use home CPAP PRN w/ O2 bleed in * COVID and Influenza swab neg (2) Depression: Assessment and Plan: CHRONIC * Continue home venlafaxine, alprazolam Qualifiers: Depression Type: major depressive disorder Major depression recurrence: unspecified whether recurrent Active/Remission status: currently active Major depression episode severity: unspecified Qualified Code(s): F32.9 - Major depressive disorder, single episode, unspecified (3) Heartburn: Assessment and Plan: CHRONIC * Continue home PPI (4) Hypertension: Assessment and Plan: CHRONIC * Not at goal BP * Continue home Toprol XL * Resume home lisinopril - Pt thinks he is still taking this at home as prescribed Qualifiers: Hypertension type: primary hypertension Qualified Code(s): I10 - Essential (primary) hypertension (5) Type 2 diabetes mellitus: Assessment and Plan: CHRONIC * Continue home Glipizide, Jardiance and Ozempic (may use home med) * ACHS glucometer check * Med dose SSI for glucose correction Qualifiers: Diabetes mellitus snf insulin use: without acid painter use Diabetes mellitus complication status: with hyperglycemia Qualified Code(s): E11.65 - Type 2 diabetes mellitus with hyperglycemia
[2023-06-21] MEDS: THEOPHYLLINE ANHYDROUS 400 MG TAB.ER.24H PO (12:41)
--- NOTE | 2023-06-21 14:56 | CM.NOTE ---
Medicare Outpatient Observation Notice discussed with pt, pt verbalizes understanding and signs paper. Original given to pt and copy placed on pt's chart.
[2023-06-21 16:15] LABS: Glucometer 187 mg/dL (74-106)
[2023-06-21] MEDS: ENOXAPARIN SODIUM 40 MG/0.4 ML SYRINGE SUBQ (16:24)
[2023-06-21] MEDS: INSULIN DETEMIR 300 UNIT/3 ML INSULN.PEN 20 UNIT SUBQ (22:19)
[2023-06-21 22:24] LABS: Glucometer 147 mg/dL (74-106)
--- NOTE | 2023-06-21 23:16 | RESP.RT ---
Sp02 96% on 40L 60% Vapotherm, decreased Fi02 down to 50%
[2023-06-22] MEDS: THEOPHYLLINE ANHYDROUS 400 MG TAB.ER.24H PO (01:42)
[2023-06-22 03:56] VITALS: PULSE 107; RESP 18; O2SAT 91
[2023-06-22] MEDS: IPRATROPIUM/ALBUTEROL SULFATE 3 ML AMPUL.NEB IH ×3 (03:56→12:44)
[2023-06-22] MEDS: METHYLPREDNISOLONE SOD SUCC PF 40 MG/ML VIAL IVP (04:31)
[2023-06-22 05:13] LABS: Basophils Percent Auto 0.2 % (0.2-2.0); Hematocrit 49.6 % (42.0-54.0); Hemoglobin 15.7 g/dL (14.0-18.0); Immature Granulocytes Abs Auto 0.09 10^3/uL (0.00-0.03); Immature Granulocytes Pct Auto 0.5 % (0.0-0.5); Lymphocytes Percent Auto 5.7 % (20.5-60.0); Mean Corpuscular HGB Conc 31.7 g/dL (29.9-35.2); Mean Corpuscular Hemoglobin 30.7 pg (25.9-34.0); Mean Corpuscular Volume 97.1 fL (80.0-94.0); Mean Platelet Volume 10.8 fL (9.5-13.5); Monocytes Absolute Auto 0.8 10^3/uL (0.3-0.8); Monocytes Percent Auto 4.9 % (1.7-12.0); Neutrophils Absolute Auto 14.9 10^3/uL (1.4-6.5); Neutrophils Percent Auto 88.7 % (43.0-75.0); Platelet Count 285 10^3/uL (150-450); Red Blood Count 5.11 10^6/uL (4.70-6.10); Red Cell Distribution Width 14.6 % (11.0-15.0); White Blood Count 16.8 10^3/uL (4.0-11.0)
[2023-06-22 06:00] VITALS: BP 135/73; PULSE 93; RESP 20; TEMP 36.7; O2SAT 98
[2023-06-22 06:23] LABS: Alanine Aminotransferase 25 U/L (16-63); Albumin Globulin Ratio 1.2; Albumin Level 3.9 g/dL (3.4-5.0); Alkaline Phosphatase 71 U/L (46-116); Anion Gap 14.7; Aspartate Amino Transferase 13 U/L (15-37); BUN Creatinine Ratio 20.3; Bilirubin Total 0.4 mg/dL (0.2-1.0); Calcium 9.3 mg/dL (8.5-10.1); Carbon Dioxide 28.5 mmol/L (21.0-32.0); Chloride 102 mmol/L (98-107); Estimated GFR (African America >60 (>=60); Estimated GFR (Non-African Ame 57 (>=60); Globulin 3.2 g/dL; Glucose 174 mg/dL (74-106); Potassium 4.2 mmol/L (3.5-5.1); Sodium 141 mmol/L (136-145); Total Protein 7.1 g/dL (6.4-8.2)
[2023-06-22] MEDS: OMEPRAZOLE 20 MG CAPSULE.DR PO (06:26)
[2023-06-22] MEDS: BUDESONIDE 0.5 MG/2 ML AMPULE NEB IH (07:14)
[2023-06-22 07:15] VITALS: O2SAT 90
[2023-06-22 07:18] LABS: Glucometer 168 mg/dL (74-106)
[2023-06-22] MEDS: VENLAFAXINE HCL ER 150 MG CAPSULE PO (09:47)
[2023-06-22] MEDS: GUAIFENESIN 600 MG TAB.ER.12H PO (09:47)
[2023-06-22] MEDS: ARIPIPRAZOLE 5 MG TABLET 10 MG PO (09:47)
[2023-06-22] MEDS: GLIPIZIDE 10 MG TABLET PO (09:47)
[2023-06-22] MEDS: CEFTRIAXONE 1,000 MG in 0.9 % SODIUM CHLORIDE 50 ML 100 MG IV (09:48)
[2023-06-22] MEDS: LISINOPRIL 5 MG TABLET PO (09:48)
[2023-06-22] MEDS: AZITHROMYCIN 500 MG in 0.9 % SODIUM CHLORIDE 250 ML 250 MG IV (09:48)
[2023-06-22] MEDS: CANAGLIFLOZIN 100 MG TABLET 300 MG PO (09:48)
[2023-06-22] MEDS: METOPROLOL SUCCINATE 25 MG TAB.ER.24H PO (09:48)
[2023-06-22] MEDS: FLU VACC QS 23-24(6MS UP)CEL/PF 60 MCG/0.5 ML SYRINGE IM (09:49)
[2023-06-22] MEDS: 0.9 % SODIUM CHLORIDE 250 ML 10 ML IV (09:51)
[2023-06-22 11:23] LABS: Glucometer 206 mg/dL (74-106)
--- NOTE | 2023-06-22 11:30 | P.DS_ITS ---
<Statement entered by Shaikh Rosamaria MD - 06/22/23 13:47> This documentation has been reviewed and approved. Seen and examined. Case discussed with Astrid. Patient reports feeling much better today. on baseline 4 L O2. No overnight events. Exam Obese, sitting on bed, NAD Normal RR, CTA b/l except for minimal wheezing. Normal HR, Normal heart sounds Assessment and Plan COPD exacerbation Chronic resp failure with hypoxia HTN T2 DM Stable for discharge on Oral steroids. F/u with PCP and Pulm. Educated on worrisome sigsn and symptoms concerning for worsening clinical status and to seek care if he develops those. DS: Providers Provider Date of admission: 06/20/23 13:30 Primary care physician: Douglas Pacheco DO Discharging clinician: Astrid Ridley DS: Diagnosis Discharge Diagnosis (1) Acute exacerbation of chronic obstructive pulmonary disease: (2) Depression: Qualifiers: Active/Remission status: currently active Depression Type: major depressive disorder Major depression episode severity: unspecified Major depression recurrence: unspecified whether recurrent Qualified Code(s): F32.9 - Major depressive disorder, single episode, unspecified (3) Heartburn: (4) Hypertension: Qualifiers: Hypertension type: primary hypertension Qualified Code(s): I10 - Essential (primary) hypertension (5) Type 2 diabetes mellitus: Qualifiers: Diabetes mellitus complication status: with hyperglycemia Diabetes mellitus manager intermediate insulin use: without fci use Qualified Code(s): E11.65 - Type 2 diabetes mellitus with hyperglycemia DS: Summary Hospital Course Hospital Course: The patient was admitted to observation with an acute COPD exacerbation on chronic respiratory failure using 4 L of O2 at baseline. The patient's oxygen requirements did not increase significantly during his stay, but his work of breathing was significantly increased with minimal activity. He was treated with IV steroids, antibiotics for possible concurrent bronchitis and scheduled breathing treatments. The patient's condition slowly improved and he reports that he is near his baseline function at this time. He is being discharged home in stable condition with a prescription for 5 more days of azithromycin (7-day course), long prednisone taper, and every new prescription for his home theophylline and albuterol which he has run out of. The patient did stop taking theophylline about 10 days prior to admission and this likely contributed to his acute exacerbation. He should follow-up with his PCP within 5 to 7 days. Status at Discharge Functional status at discharge: independent ambulation Time Spent with Patient Time attestation: Total time spent providing and/or coordinating discharge services: Time spent: greater than 30 minutes Specific discharge activities: Physical exam, discussion of discharge plan, questions answered. Exam Constitutional Vital Signs, click to edit/add: Last Vital Signs Temp 98.1 F 06/22/23 06:00 Pulse 93 H 06/22/23 06:00 Resp 20 06/22/23 06:00 BP 135/73 06/22/23 06:00 Pulse Ox 90 L 06/22/23 07:15 O2 Del Method Nasal Cannula 06/22/23 07:15 O2 Flow Rate 4 06/22/23 07:15 Common normals: no apparent distress, oriented x3 and alert General appearance: cooperative Orientation/consciousness: Yes awake HENMT Common normals: normocephalic and head/scalp atraumatic Eye Common normals: PERRL, EOMs intact bilaterally, conjunctivae normal and no scleral icterus Neck & C-Spine Common normals: no JVD Respiratory Common normals: normal respiratory effort and no use of accessory muscles Effort & inspection: able to speak in complete sentences and symmetric chest movement Auscultation: wheezes (Faint RUL EE) and diminished lung sounds (BLL, Sign improved from adm) Cardio Common normals: no JVD, regular rate, regular rhythm, S1 normal heart sound, S2 normal heart sound, no murmurs and peripheral pulses 2+ throughout GI Common normals: Normal to inspection, nondistended, normoactive bowel sounds present, soft to palpation and non-tender Bladder/kidney exam: bladder normal to palpation Extremity Common normals: normal to inspection, full ROM, normal capillary refill and no pedal edema General: no cyanosis Neuro Common normals: moves all extremities, no focal motor deficits and no sensory deficits noted Speech: speech normal Psych Common normals: mental status grossly normal and activity/motor behavior normal DS: Data Data Completed and Pending Completed studies during hospitalization: CXR Labs on day of discharge: Labs from last 24 hours 06/22/23 06/22/23 06/22/23 11:22 07:17 04:35 WBC 16.8 H RBC 5.11 Hgb 15.7 Hct 49.6 MCV 97.1 H MCH 30.7 MCHC 31.7 RDW 14.6 Plt Count 285 MPV 10.8 Neut % (Auto) 88.7 H Lymph % (Auto) 5.7 L [place] % (Auto) 4.9 Eos % (Auto) 0.0 L Baso % (Auto) 0.2 Neut # (Auto) 14.9 H Lymph # (Auto) 1.0 L [place] # (Auto) 0.8 Eos # (Auto) 0.0 Baso # (Auto) 0.0 Abs Immat Gran (auto) 0.09 H Imm/Tot Granulo (auto) 0.5 Sodium 141 Potassium 4.2 Chloride 102 Carbon Dioxide 28.5 Anion Gap 14.7 BUN 26.0 H Creatinine 1.28 Est GFR ( Amer) >60 Est GFR (Non-Af Amer) 57 L BUN/Creatinine Ratio 20.3 Glucose 174 H Calcium 9.3 Total Bilirubin 0.4 AST 13 L ALT 25 Alkaline Phosphatase 71 Total Protein 7.1 Albumin 3.9 Globulin 3.2 Albumin/Globulin Ratio 1.2 POC Glucose 206 H 168 H 06/21/23 06/21/23 22:21 16:14 WBC RBC Hgb Hct MCV MCH MCHC RDW Plt Count MPV Neut % (Auto) Lymph % (Auto) [place] % (Auto) Eos % (Auto) Baso % (Auto) Neut # (Auto) Lymph # (Auto) [place] # (Auto) Eos # (Auto) Baso # (Auto) Abs Immat Gran (auto) Imm/Tot Granulo (auto) Sodium Potassium Chloride Carbon Dioxide Anion Gap BUN Creatinine Est GFR ( Amer) Est GFR (Non-Af Amer) BUN/Creatinine Ratio Glucose Calcium Total Bilirubin AST ALT Alkaline Phosphatase Total Protein Albumin Globulin Albumin/Globulin Ratio POC Glucose 147 H 187 H Preliminary micro results at discharge 06/20/23 11:40 Blood Culture Result 1 - Preliminary Blood Staphylococcus epidermidis Discharge Plan Discharge Disposition: Home, Self-Care Condition: Fair Discharge Medications: New azithromycin 500 mg tablet 500 mg PO DAILY 5 Days Qty: 5 0RF prednisone 10 mg tablet See Rx Instructions .ROUTE .COMPLEX Qty: 42 0RF Rx Instructions: 6 tabs daily x 2 days, then 5 tabs daily x 2 days, then 4 tabs daily x 2 days, then 3 tabs daily x 2 days, then 2 tabs daily x 2 days, then 1 tab daily x 2 days, then stop Continued alprazolam 0.5 mg tablet 0.5 mg PO BID PRN (Reason: anxiety) Jardiance 25 mg tablet 25 mg PO DAILY latanoprost 0.005 % drops 1 drp OPHTHALMIC (EYE) DAILY Ozempic 0.25 mg or 0.5 mg (2 mg/3 mL) pen injector 0.5 mg SUBCUT .weekly venlafaxine 150 mg capsule,extended release 24hr 150 mg PO BID theophylline 400 mg tablet extended release 24 hr 400 mg PO Q12H 30 Days Qty: 60 0RF albuterol sulfate 90 mcg/actuation HFA aerosol inhaler 2 puff INHALATION Q4H PRN (Reason: shortness of breath or wheezing) Qty: 8.5 0RF aripiprazole 10 mg tablet 10 mg PO DAILY Trelegy Ellipta 100-62.5-25 mcg blister with device 1 inh INHALATION Q24H glipizide 10 mg tablet 10 mg PO BID hydrocodone-acetaminophen 5-325 mg tablet 1 tab PO Q6H PRN (Reason: pain) lisinopril 5 mg tablet 5 mg PO DAILY metoprolol succinate 25 mg tablet extended release 24 hr 25 mg PO DAILY omeprazole 20 mg capsule,delayed release(DR/EC) 20 mg PO DAILY venlafaxine 75 mg capsule,extended release 24hr 150 mg PO DAILY Discontinued prednisone 20 mg tablet 20 mg PO DAILY Activity: wear oxygen at all times Diet: advance to your usual diet Patient Instructions: COPD (Chronic Obstructive Pulmonary Disease) (DC) Forms: Portal Instructions Follow Up Appointments: Follow up appt. with Dr. Benavides on @ 11am office #: [phone] Pacheco on Jul.19 @ 2pm NOTE NEW DATE office #: [phone]
--- NOTE | 2023-06-22 12:06 | CM.NOTE ---
Rounds made with Dr. Blank, discharge today to home. Pt is on home oxygen @ 4L NC and will continue. No other discharge needs identified.
[2023-06-22 12:44] VITALS: O2SAT 94
--- NOTE | 2023-06-23 12:31 | CM.DCFOLLOWU ---
Person spoke with: patient How are you feeling? good. I finally caught up on my sleep. How is your pain? none Did you understand your discharge instructions? yes Do you have any questions about your discharge instructions? no Were you given any prescriptions at discharge? yes Were you able to get your prescriptions filled? no I havent yet. Do you understand how to take your medications as ordered? Yes. Do you have any questions about your follow up appointment and do you plan to keep your follow up appointment? Follow up appointments with Dr. Benavides and Dr. Pacheco and patient voiced he plans on keeping both appointments. Is there anything else that you would like to discuss? I discussed the importance of picking up prescriptions and starting taking the medications today. I also stressed the importance of preventing being readmitted to the hospital and the risk of readmission if medications are not taken. Pt. voiced understanding. Questions/Comments/Concerns/Other:
== END 2023-06-22 13:41 | disposition home or self-care (01) ==
LOC: ER 13:09 → MS 14:18
PROVIDERS: Admitting Provider Internal Medicine; Emergency Provider Emergency Medicine; PCP Internal Medicine; Visit Provider Nurse Practitioner
DX: J44.1 Chronic obstructive pulmonary disease with (acute) exacerbation (principal); J96.11 Chronic respiratory failure with hypoxia; G47.33 Obstructive sleep apnea (adult) (pediatric); F32.9 Major depressive disorder, single episode, unspecified; I10 Essential (primary) hypertension; E11.65 Type 2 diabetes mellitus with hyperglycemia; R12 Heartburn; D72.829 Elevated white blood cell count, unspecified; Z87.891 Personal history of nicotine dependence; Z99.81 Dependence on supplemental oxygen; Z20.822 Contact with and (suspected) exposure to COVID-19; Z79.899 Other long term (current) drug therapy; Z23 Encounter for immunization
CPT/HCPCS: 36415; 71045; 80048; 80053; 82948; 84484; 85025; 87040; 87150; 87186; 87635; 87804; 87811; 90674; 93005; 94640; 94667; 94668; 94761; 96365; 96366; 96367; 96368; 96372; 96375; 96376; 99285; G0008; G0378; J0456; J2920; J2930

== ENCOUNTER 2023-10-16 16:07 | Emergency (ER) | payer MEDICARE, SELFPAY ==
[2023-10-16 16:12] VITALS: BP 172/93; PULSE 100; TEMP 36.7; O2SAT 94; BMI 36.8
--- NOTE | 2023-10-16 16:15 | ECG_ITS ---
[facility] Test Date: 2023-10-16 Pat Name: RICARDO HYLTON Department: Room: - Gender: Male Toe Laster: : 1960 Requested By: Douglas Pacheco Order Number: [id number] Reading MD: LETITIA VELEZ Measurements Intervals [place] Rate: 95 P: 6 IN: 150 QRS: 70 QRSD: 86 T: 76 QT: 332 QTc: 385 Interpretive Statements 1100 Sinus rhythm [address] depression 9130 borderline ECG Compared to ECG 06/20/2023 11:20:40 ST (T wave) deviation now present Electronically Signed On 10-17-2023 5:20:50 EDT by LETITIA VELEZ
--- NOTE | 2023-10-16 16:15 | XR_ITS ---
[address] [address] Patient Name: RICARDO HYLTON MRN: [id number] date: 1960 Sex: M Assigned Patient Location: ER Current Patient Location: ED.MAIN Accession/Order Number: [id number] Exam Date: 10/16/2023 16:42 Report Date: 10/16/2023 17:20 At the request of: SRINIVAS NORWOOD Procedure: XR chest 1V EXAMINATION: XR chest 1V, , 10/16/2023 4:42 PM EDT INDICATION: Shortness of breath HISTORY: Ordering Provider Reason for Exam: Shortness of breath Technologist Note: Additional: COMPARISON: Chest x-ray dated 06/20/2023. TECHNIQUE: Chest x-ray: One view. FINDINGS: No pneumothorax, pleural effusion or focal airspace consolidation. Heart is normal in size. Bony thorax is unremarkable. XR/XR chest 1V IMPRESSION: No acute cardiopulmonary process. Electronically authenticated by: KATARZYNA RESENDEZ Date: 10/16/2023 17:20
--- OUTSIDE RECORDS SUMMARY | 2023-10-16 16:16 | XMS_ITS | CCD ---
Author Organization [facility] Care Team Providers Care Cast Shell Grinder Name Role Phone [facility], EHAB A Admitting Unavailable [facility], EHAB A Attending Unavailable JANET COWART Unavailable [facility], EHAB A Primary Care Unavailable Janet Cowart MD Primary Care Provider [phone] Tara DOVanda P Unavailable [phone] Janet Cowart Unavailable SAMSA ., VANDA Admitting Unavailable SAMSA ., VANDA Attending Unavailable DR JANET COWART Primary Care Unavailable DR JANET COWART Primary Care Unavailable HEBERT JURADO Consulting Unavailable HEBERT JURADO Attending Unavailable RHIANNON, HEBERT Admitting Unavailable SOLA SHELL Consulting Unavailable DR JANET COWART Primary Care Unavailable BENI ., JAYDA Consulting Unavailable BENI ., JAYDA Attending Unavailable BENI ., JAYDA Admitting Unavailable GERARD ESPANA Consulting Unavailable MONTAGUE ., DR EVERETTE Richey Consulting Unavailable MONTAGUE ., DR EVERETTE Richey Attending Unavailable MOTNAGUE ., DR EVERETTE Richey Admitting Unavailable DR JANET COWART Primary Care Unavailable BENI .JAYDA Consulting Unavailable , BERTA Consulting Unavailable YADIRA BALLESTEROS Consulting Unavailable DR JANET COWART Primary Care Unavailable MONTAGUE ., DR EVERETTE Richey Consulting Unavailable MONTAGUE ., DR EVERETET Richey Attending Unavailable MONTAGUE ., DR EVERETTE Richey Admitting Unavailable GRECHNY .JOSE Consulting Unavaildemetria e HEBERT JURADO Consulting Unavailable SOLA SHELL Consulting Unavailable , BERTA Consulting Unavailable DR JANET COWART Primary Care Unavailable SAMSA ., VANDA Attending Unavailable SAMSA ., VANDA Admitting Unavailable DR JANET COWART Primary Care Unavailable SAMSA ., VANDA Attending Unavailable SAMSA ., VANDA Admitting Unavailable SAMSA ., VANDA Admitting Unavailable SAMSA ., VANDA Consulting Unavailable SAMSA ., VANDA Attending Unavailable DR JANET COWART Primary Care Unavailable COWART, DR JANET Richey Primary Care Unavailable SOFYA, DR JANET Richey Consulting Unavailable SOFYA, DR JANET Richey Attending Unavailable SOFYA, DR JANET Richey Admitting Unavailable SOFYA, DR JANET Richey Primary Care Unavailable SAI, DR JUSTINE Mendoza Consulting Unavailable SAI, DR JUSTINE Mendoza Attending Unavailable SAI, DR JUSTINE Mendoza Admitting Unavailable GERARD WOLFF Consulting Unavailable SHAIKH Jose BANDA Attending Unavailable SHAIKH Jose BANDA Admitting Unavailable JOSE SALINAS Consulting Unavaildemetria COWART, DR JANET Richey Primary Care Unavailable DAVID GIBBS Consulting Unavailable Rubén Pina Unavailable Janet Cowart MD Primary Care Provider Vanda Gonzalez DO Unavailable [phone] Allergies Allergy Classification Reported Allergen(s) Allergy Type Date of Onset Reaction(s) Facility (20 sources) metFORMIN Drug Allergy 03-25-2021 Intolerance [facility] (4 sources) metFORMIN Drug Allergy Diarrhea Reaction Other (1 source) metFORMIN Drug Allergy 03-18-2022 [facility] Medications Current Medications Medication Drug Class(es) Dates Sig (Normalized) Sig (Original) 0.25 MG, 0.5 MG Dose 3 ML semaglutide 0.68 MG/ML Pen Injector [Ozempic] (10 sources) inject 0.5 mg by subcutaneous injection every week Ozempic (0.25 or 0.5 MG/DOSE) 2 MG/3ML INJECT 0.5 mg SUBCUTANEOUSLY ONCE A WEEK for 30 Active inject 0.5 mg by sub cutaneous injection every week Ozempic (0.25 or 0.5 MG/DOSE) 2 MG/3ML 0.5mg Subcutaneous weekly for 30 days Active acetaminophen 325 mg / HYDROcodone bitartrate 5 mg oral tablet (20 sources) Opioid Agonist Start: 08-10-2023 take 1 tablet by mouth every six hours HYDROcodone-Acetaminophen 5-325 MG 1 tablet as needed Orally every 6 hrs for 30 days Jul, Active Start: 08-10-2023 take 1 tablet by beverly th every six hours HYDROcodone-Acetaminophen 5-325 MG 1 tab let as needed Orally every 6 hrs for 30 days Jul, Active Start: 08-10-2023 take 1 tablet by beverly th every six hours HYDROcodone-Acetaminophen 5-325 MG 1 tab let as needed Orally every 6 hrs for 30 days Jul, Active Start: 07-12-2023 take 1 tablet by beverly th every six hours HYDROcodone-Acetaminophen 5-325 MG 1 tab let as needed Orally every 6 hrs for 30 days Jun, Active Start: 06-08-2023 take 1 tablet by beverly th every six hours HYDROcodone-Acetaminophen 5-325 MG 1 tab let as needed Orally every 6 hrs for 30 days May, Active Start: 06-08-2023 take 1 tablet by beverly th every six hours HYDROcodone-Acetaminophen 5-325 MG 1 tab let as needed Orally every 6 hrs for 30 days May, Active Start: 05-10-2023 take 1 tablet by beverly th every six hours HYDROcodone-Acetaminophen 5-325 MG 1 tab let as needed Orally every 6 hrs for 30 days Apr, Active Start: 03-14-2023 take 1 tablet by beverly th every six hours HYDROcodone-Acetaminophen 5-325 MG 1 tab let as needed Orally every 6 hrs for 30 days Feb, Active Start: 02-10-2023 take 1 tablet by beverly th every six hours HYDROcodone-Acetaminophen 5-325 MG 1 tab let as needed Orally every 6 hrs for 30 days Jan, Active Start: 12-10-2022 take 1 tablet by beverly th every six hours HYDROcodone-Acetaminophen 5-325 MG 1 tab let as needed Orally every 6 hrs for 30 days November, Active Start: 11-12-2022 take 1 tablet by beverly th every six hours HYDROcodone-Acetaminophen 5-325 MG 1 tab let as needed Orally every 6 hrs for 30 days Oct, Active Start: 10-12-2022 take 1 tablet by beverly th every six hours HYDROcodone-Acetaminophen 5-325 MG 1 tab let as needed Orally every 6 hrs for 30 days Sep, Active Start: 09-15-2022 take 1 tablet by beverly th every six hours HYDROcodone-Acetaminophen 5-325 MG 1 tab let as needed Orally every 6 hrs for 30 days Sep, Active Start: 07-22-2022 take 1 tablet by beverly th every six hours HYDROcodone-Acetaminophen 5-325 MG 1 tab let as needed Orally every 6 hrs for 30 days Jul, Active Start: 03-02-2021 take 1 tablet by beverly th four times daily as needed HYDROcodone-acetaminophen (NORCO) 5-325 mg per tablet TAKE 1 TABLET BY MOUTH FOUR TIMES A DAY NEEDED 0 03/02/2021 Active Comment on above: TAKE 1 TABLET BY BEVERLY TH FOUR TIMES A DAY NEEDED albuterol 0.83 mg/ml inhalation solution (20 sources) beta2-Adrenergic Agonist Albuter ol Sulfate (2.5 MG/3ML) 0.083% 3 ml Inhalation q 4 hours as needed dx: J44.9 COPD Active Albuterol Sulfat e (2.5 MG/3ML) 0.083% 3 ml Inhalation q 4 hours as needed dx: J44.9 COPD Active alpha 1-proteinase inhibitor, human 1 mg injection (20 sources) Human alpha-1 Proteinase Inhibitor Prolastin-C 1000 MG as directed Intravenous Active ALPRAZolam 0.5 mg oral tablet (20 sources) Benzodiazepine Start: 08-26-19 take 1 tablet by mouth twice daily as needed ALPRAZolam 0.5 MG 1 tablet Orally Twice a day prn for 30 days Aug, Active Start: 08-01-2023 take 1 tablet by beverly th twice daily as needed ALPRAZolam 0.5 MG 1 tablet Orally Twice a day prn for 30 days Jul, Active Start: 06-25-2023 take 1 tablet by beverly th twice daily as needed ALPRAZolam 0.5 MG 1 tablet Orally Twice a day prn for 30 days Jun, Active Start: 05-31-2023 take 1 tablet by beverly th twice daily as needed ALPRAZolam 0.5 MG 1 tablet Orally Twice a day prn for 30 days May, Active Start: 03-22-2023 take 1 tablet by beverly th twice daily as needed ALPRAZolam 0.5 MG 1 tablet Orally Twice a day prn for 30 days Mar, Active Start: 01-31-2023 take 1 tablet by beverly th twice daily as needed ALPRAZolam 0.5 MG 1 tablet Orally Twice a day prn for 30 days Jan, Active Start: 12-30-2022 take 1 tablet by beverly th twice daily as needed ALPRAZolam 0.5 MG 1 tablet Orally Twice a day prn for 30 days Dec, Active CPAP Machine (20 sources) CPAP Machine As Directed Active cyclobenzaprine hydrochloride 5 mg oral tablet (20 sources) Muscle Relaxant take 1 tablet by mouth every twenty-four hours Cyclobenzaprine HCl 5 MG 1 tablet at bedtime as needed Orally Once a day Active empagliflozin 25 mg oral tablet (20 sources) Sodium-Glucose Cotransporter 2 Inhibitor take 1 tablet by mouth once daily Jardiance 25 mg TAKE 1 TABLET BY MOUTH DAILY for 30 Active Handicap placards as directed (20 sources) Handicap placard s as directed as directed as directed as directed Active lisinopril 5 mg oral tablet (20 sources) Angiotensin Converting Enzyme Inhibitor Start: 2022 take 1 tablet by mouth every twenty-four hours Lisinopril 5 MG 1 tablet Orally Once a day Jul, Active [place] 3 1000 MG (20 sources) take 1 capsule by mouth once daily [place] 3 1000 MG 1 capsule Orally Once a day Active Oxygen 2 liters (20 sources) Oxygen 2 liters continuous Active ozempic (0.25 or 0.5 mg/dose) 2 mg/3ml solution pen-injector (11 sources) inject 0.5 mg by subcutaneous injection every week Ozempic (0.25 or 0.5 MG/DOSE) 2 MG/3ML INJECT 0.5 mg SUBCUTANEOUSLY ONCE A WEEK for 30 Active phentermine hydrochloride 37.5 mg oral capsule (12 sources) Sympathomimetic Amine Anorectic Start: 2022 take 1 capsule by mouth every twenty-four hours Adipex-P 37.5 MG 1 capsule Orally Once a day for 30 days Jan, Active prednisoLONE (20 sources) Corticosteroid take 1 tablet by mouth once daily Prednisolone 20 mg 20 mg one tab orally daily Active 125 ml sodium chloride 9 mg/ml prefilled syringe (8 sources) Start: 2020 End: 2021 sodium chloride 0.9 % (flush) 10 mL (BD POSIFLUSH) Start: 02-13-2021 End: 05-15-2022 INV NACL 0.9% 25 mL FLUSH (I RB [id number]) Inject 10 mL intravenously. 0 02/13/2021 05/15/2022 Active Comment on above: Inject 10 mL intrave nously. Completed/Discontinued Medications Medication Drug Class(es) Dates Sig (Normalized) Sig (Original) 120 actuat albuterol 0.1 mg/actuat / ipratropium bromide 0.02 mg/actuat inhalation spray (18 sources) Anticholinergic, beta2-Adrenergic Agonist Start: 02-17-2021 take 20-100 ug by inhalation four times daily COMBIVENT RESPIMAT 20-100 mcg/actuation inhaler INHALE 1 PUFF BY MOUTH 4 TIMES A DAY 0 02/17/2021 Active Comment on above: INHALE 1 PUFF BY BEVERLY TH 4 TIMES A DAY [id number] inhibitor (Human) 1,000 mg in water for injection (6 sources) Start: 03-25-2021 inject 1000 mg intravenously every week [id number]-[id number] inhibitor (Human) 1,000 mg in water for injection Inject 1,000 mg intravenously one time a week. 0 03/25/2021 Active Comment on above: Inject 1,000 mg intr avenously one time a week. amoxicillin 875 mg / clavulanate 125 mg oral tablet (12 sources) Penicillin-class Antibacterial Start: 09-19-2018 take 1 tablet by mouth every twelve hours Amoxicillin-Pot Clavulanate 875-125 MG 1 tablet Orally every 12 hrs for 10 day(s) Sep, Not-Taking ARIPiprazole 10 mg oral tablet (20 sources) Atypical Antipsychotic Start: 02-27-2021 take 1 tablet by mouth once daily ARIPiprazole (ABILIFY) 10 mg tablet Take 10 mg by mouth once daily. 0 02/27/2021 Active Comment on above: Take 10 mg by mouth once daily. aspirin 81 mg delayed release oral tablet (6 sources) Platelet Aggregation Inhibitor, Nonsteroidal Anti-inflammatory Drug Start: 02-07-2021 take 1 tablet by mouth once daily aspirin, enteric coated (ASPIRIN, ENTERIC COATED) 81 mg EC tablet Take 81 mg by mouth once daily. 0 02/07/2021 Active Comment on above: Take 81 mg by mouth once daily. Breo Ellipta 100-25 MCG/INH (12 sources) Start: 01-14-2014 take 1 puff(s) by inhalation once daily Breo Ellipta 100-25 MCG/INH 1 puff Inhalation Once a day for 30 day(s) Dec, Not-Taking 24 hr dilTIAZem hydrochloride 240 mg extended release oral capsule (20 sources) Calcium Channel Shivam Start: 03-25-2021 take 1 capsule by mouth once daily dilTIAZem CD (CARDIZEM CD) 240 mg 24 hr capsule Take 1 capsule by mouth once daily. 0 03/25/2021 Active Comment on above: Take 1 capsule by mo [facility] once daily. 30 actuat fluticasone furoate 0.1 mg/actuat / umeclidinium 0.0625 mg/actuat / vilanterol 0.025 mg/actuat dry powder inhaler (6 sources) Anticholinergic, Corticosteroid, beta2-Adrenergic Agonist Start: 02-17-2021 take 1 puff(s) by mouth once daily TRELEGY ELLIPTA 100-62.5-25 mcg INHALE 1 PUFF BY MOUTH DAILY 0 02/17/2021 Active Comment on above: INHALE 1 PUFF BY BEVERLY TH DAILY FREESTYLE MARTIN 2 SENSOR kit (6 sources) Start: 02-17-2021 FREESTYLE MARTIN 2 SENSOR kit as directed. 0 02/17/2021 Active Comment on above: as directed. glipiZIDE 10 mg oral tablet (20 sources) Sulfonylurea Start: 02-07-2021 take 1 tablet by mouth twice daily glipiZIDE (GLUCOTROL) 10 mg tablet Take 10 mg by mouth twice daily. 0 02/07/2021 Active Comment on above: Take 10 mg by mouth twice daily. 12 hr guaiFENesin 600 mg extended release oral tablet (20 sources) Start: 03-25-2021 take 2 tablets by mouth twice daily guaiFENesin (MUCINEX) 600 mg 12 hr tablet Take 2 tablets by mouth twice daily. 0 03/25/2021 Active take 1 tablet by mouth every twe lve hours Mucinex 600 MG 1 tablet as needed Orally every 12 hrs Active Comment on above: Take 2 tablets by mo [facility] twice daily. hydroCHLOROthiazide 12.5 mg oral tablet (12 sources) Thiazide Diuretic take 1 tablet by mouth every twenty-four hours hydroCHLOROthiazide 12.5 MG 1 tablet Orally Once a day for 30 day(s) Not-Taking 24 hr metoprolol succinate 25 mg extended release oral tablet (20 sources) beta-Adrenergic Shivam Start: 2020 take 1 tablet by mouth once daily metoprolol succinate ER (TOPROL XL) 25 mg 24 hr tablet Take 25 mg by mouth once daily. 0 02/07/2021 Active Comment on above: Take 25 mg by mouth once daily. omeprazole 20 mg delayed release oral capsule (20 sources) Proton Pump Inhibitor Start: 2020 take 1 capsule by mouth once daily omeprazole (PRILOSEC) 20 mg capsule Take 20 mg by mouth once daily. 0 02/24/2021 Active Comment on above: Take 20 mg by mouth once daily. pravastatin sodium 40 mg oral tablet (18 sources) HMG-CoA Reductase Inhibitor Start: 2020 take 1 tablet by mouth once daily at bedtime pravastatin (PRAVACHOL) 40 mg tablet Take 1 tablet by mouth daily at bedtime. 0 03/25/2021 Active take 1 tablet by beverly th every twenty-four hours Pravastatin Sodium 10 MG 1 tablet Orally Once a day for 30 day(s) Not-Taking Comment on above: Take 1 tablet by beverly th daily at bedtime. predniSONE 10 mg oral tablet (6 sources) Start: 03-25-20 take 1 tablet by mouth once daily predniSONE (DELTASONE) 10 mg tablet Take 1 tablet by mouth once daily. 0 03/25/2021 Active Comment on above: Take 1 tablet by beverly th once daily. 0.25 mg, 0.5 mg dose 1.5 ml semaglutide 1.34 mg/ml pen injector (19 sources) Start: 02-18-20 OZEMPIC 0.25 mg or 0.5 mg(2 mg/1.5 mL) pnij INJECT 0.5MG SUBCUTANEOUSLY WEEKLY 0 02/17/2021 Active Comment on above: INJECT 0.5MG SUBCUTA NEOUSLY WEEKLY theophylline 400 mg extended release oral tablet (20 sources) Methylxanthine Start: 12-26-19 21 take 1 tablet by mouth twice daily, then take 1 tablet by mouth every twenty-four hours theophylline ER (UNIPHYL) 400 mg 24 hr tablet Take 400 mg by mouth twice daily. 0 12/25/2020 Active take 1 tablet by beverly th every twenty-four hours Theophylline ER 400 MG 1 tablet Orally Once a day Active Comment on above: Take 400 mg by mouth twice daily. tiotropium 0.018 mg inhalation powder (12 sources) Anticholinergic Start: 014 take 1 capsule by inhalation once daily Spiriva HandiHaler 18 MCG 1 capsule Inhalation Once a day Dec, Not-Taking ubidecarenone 100 mg oral capsule (12 sources) take 1 capsule by mouth every twenty-four hours Coenzyme Q10 100 MG 1 capsule with a meal Orally Once a day for 30 day(s) Not-Taking valACYclovir 1000 mg oral tablet (6 sources) Herpesvirus Nucleoside Analog DNA Polymerase Inhibitor, Herpes Simplex Virus Nucleoside Analog DNA Polymerase Inhibitor, Herpes Zoster Virus Nucleoside Analog DNA Polymerase Inhibitor Start: 021 take 2000 mg by mouth twice daily valACYclovir (VALTREX) 1 gram Take 2,000 mg by mouth twice daily. 0 12/28/2020 Active Comment on above: Take 2,000 mg by beverly th twice daily. 24 hr venlafaxine 150 mg extended release oral tablet (20 sources) Serotonin and Norepinephrine Reuptake Inhibitor Start: take 1 tablet by mouth twice daily VENLAFAXINE ER 150 MG TABLET,EXTENDED RELEASE 24 HR Take 150 mg by mouth twice daily. 0 03/03/2021 Active take 1 capsule by mouth every tw elve hours Effexor XR 150 MG 1 capsule with food Orally bid for 90 days Active take 1 capsule by mo uth every twenty-four hours Effexor XR 150 MG 1 capsule with food Orally Once a day for 30 days Active take 1 capsule by mouth every tw elve hours Effexor XR 75 MG 1 capsule with food Orally Twice a day for 30 days Active Comment on above: Take 150 mg by mouth twice daily. Problems Active Problems Problem Classification Problem Date Documented Date Episodic/Chronic Acute bronchitis (1 source) Acute bronchitis, unspecified; Translations: [ACUTE BRONCHITIS UNSPECIFIED] Onset: 3 Episodic Anxiety disorders (20 sources) Generalized anxiety disorder; Translations: [Generalized anxiety disorder] Chronic Chronic obstructive pulmonary disease and bronchiectasis (20 sources) Chronic obstructive lung disease; Translations: [Chronic obstructive pulmonary disease, unspecified] Onset: 9 Chronic Diabetes mellitus with complications (20 sources) Type 2 diabetes mellitus with hyperglycemia; Translations: [Type 2 diabetes mellitus] Onset: 3 Chronic Diabetes mellitus without complication (7 sources) Diabetes mellitus; Translations: [Type 2 diabetes mellitus without complications] Onset: 1 03-25-2021 Chronic Disorders of lipid metabolism (1 source) Pure hypercholesterolemia, unspecified; Translations: [PURE HYPERCHOLESTEROLEMIA UNSPEC] Onset: 3 Chronic Esophageal disorders (6 sources) Gastroesophageal reflux disease; Translations: [Gastro-esophageal reflux disease without esophagitis] Onset: 1 03-25-2021 Chronic Essential hypertension (7 sources) Essential hypertension; Translations: [Essential (primary) hypertension] Onset: 9 03-25-2021 Chronic Mood disorders (12 sources) Depressive disorder; Translations: [Depression] Onset: 1 03-25-2021 Chronic Other aftercare (1 source) Other assistant terminal manager (current) drug therapy; Translations: [OTH GROUP HOME CURRENT DRUG THERAPY] Onset: 3 Episodic Other aftercare (1 source) senior care (current) use of aspirin; Translations: [GROUP HOME CURRENT USE OF ASPIRIN] Onset: 3 Episodic Other aftercare (1 source) superintendent terminal (current) use of oral hypoglycemic drugs; Translations: [GROUP HOME USE ORAL HYPOGLYCEMIC DX] Onset: 3 Episodic Other aftercare (4 sources) Encounter for therapeutic drug level monitoring; Translations: [ENC THERAPEUTC DRUG LEVL MONITORING] Onset: 3 Episodic Other lower respiratory disease (4 sources) Shortness of breath; Translations: [SHORTNESS OF BREATH] Onset: 3 Episodic Other lower respiratory disease (4 sources) Hypoxemia; Translations: [HYPOXEMIA] Onset: 3 Episodic Other nutritional; endocrine; and metabolic disorders (7 sources) Cgsbc-0-hdenkikzwwn deficiency; Translations: [Gvpqj-5-heefckswgmg deficiency] Onset: 1 03-25-2021 Chronic Other nutritional; endocrine; and metabolic disorders (1 source) Obesity, unspecified; Translations: [OBESITY UNSPECIFIED] Onset: 3 Chronic Other nutritional; endocrine; and metabolic disorders (1 source) Body mass index (BMI) 40.0-44.9, adult; Translations: [BODY MASS INDEX BMI 40.0-44.9 ADULT] Onset: 3 Chronic Other nutritional; endocrine; and metabolic disorders (3 sources) Body mass index (BMI) 39.0-39.9, adult; Translations: [BODY MASS INDEX BMI 39.0-39.9 ADULT] Onset: 3 Chronic Other nutritional; endocrine; and metabolic disorders (1 source) Uheqh-5-xyyermnftkg deficiency; Translations: [NNIYR-4-[id number] DEFICIENCY] Onset: 3 Chronic Other nutritional; endocrine; and metabolic disorders (20 sources) Severe obesity; Translations: [Morbid (severe) obesity due to excess calories] Chronic Other nutritional; endocrine; and metabolic disorders (20 sources) Body mass index 30+ - obesity; Translations: [Body mass index (BMI) 39.0-39.9, adult] Chronic Other nutritional; endocrine; and metabolic disorders (1 source) Morbid (severe) obesity due to excess calories Chronic Residual codes; unclassified (1 source) Awaiting transplantation of lung; Translations: [Awaiting organ transplant status] Chronic Residual codes; unclassified (20 sources) Obstructive sleep apnea syndrome; Translations: [Obstructive sleep apnea (adult) (pediatric)] Onset: 1 03-25-2021 Chronic Residual codes; unclassified (1 source) Obstructive sleep apnea (adult) (pediatric); Translations: [OBSTRUCTIVE SLEEP APNEA] Onset: 3 Chronic Residual codes; unclassified (1 source) Patient's intentional underdosing of medication regimen due to financial hardship; Translations: [PT INTENT UNDRDOS MED FINANC HRDSHP] Onset: 3 Episodic Respiratory failure; insufficiency; arrest (adult) (8 sources) Chronic hypoxemic respiratory failure; Translations: [Chronic respiratory failure with hypoxia] Onset: 1 03-25-2021 Chronic Screening and history of mental health and substance abuse codes (1 source) Personal history of nicotine dependence; Translations: [PERSONAL HISTORY OF NICOTINE DEPEND] Onset: 3 Episodic Spondylosis; intervertebral disc disorders; other back problems (9 sources) Radiculopathy, cervical region Episodic Unclassified (4 sources) CONTACT W/AND (SUSP) EXPOS COVID-19; Translations: [CONTACT W/AND (SUSP) EXPOS COVID-19] Onset: 2 Unclassified (3 sources) COUGH, UNSPECIFIED; Translations: [COUGH, UNSPECIFIED] Onset: 2 Unclassified (1 source) UNVACCINATED FOR COVID-19; Translations: [UNVACCINATED FOR COVID-19] Onset: 2 Past or Other Problems Problem Classification Problem Date Documented Da te Episodic/Chronic Unclassified (1 source) CONTACT W/AND (SUSP) EXPOS COVID-19; Translations: [CONTACT W/AND (SUSP) EXPOS COVID-19] Onset: 04-26-2022 Unclassified (1 source) COUGH, UNSPECIFIED; Translations: [COUGH, UNSPECIFIED] Onset: 03-19-2022 Results Test Name Value Interpretation Reference Range Facility [facility] 04-25-2023 [facility] Telephone (PULTMN) RICARDO HYLTON ([id number]) 1960 M Date Time Provider Department 04/25/23 CAPO MERAZ During your visit today, we recorded the following information about you: Capo Meraz RN 04/25/2023 11:50 AM Signed Attempted to reach emergency contact, Renetta Hylton, of patient as we have not been able to contact him regarding his lung transplant referral. I was unable to speak with her but left a message with reason I was calling. Explained we have tried to contact patient multiple times and at this time we will close referral. Provided lung transplant office phone number in case they had any questions. Capo Meraz RN, BSN Pre-Lung Numerical Analysis Group Manager Allergies As of Date: 04/25/2023 Noted Allergy Reaction METFORMIN 03/25/2021 5 - Intolerance Comments: diarrhea Date Reviewed: 03/25/2021 Reviewed by: Lia Sanders, ANNETTE - Fully Assessed Reason for Visit: Closing Referral [Other] Prescriptions as of 04/25/2023 - uyaos-9-rxpmqwjsmw inhibitor (Human) 1,000 mg in water for injection Inject 1,000 mg intravenously one time a week. - pravastatin (PRAVACHOL) 40 mg tablet Take 1 tablet by mouth daily at bedtime. - predniSONE (DELTASONE) 10 mg tablet Take 1 tablet by mouth once daily. - guaiFENesin (MUCINEX) 600 mg 12 hr tablet Take 2 tablets by mouth twice daily. - dilTIAZem CD (CARDIZEM CD) 240 mg 24 hr capsule Take 1 capsule by mouth once daily. - ARIPiprazole (ABILIFY) 10 mg tablet Take 10 mg by mouth once daily. - aspirin, enteric coated (ASPIRIN, ENTERIC COATED) 81 mg EC tablet Take 81 mg by mouth once daily. - FREESTYLE MARTIN 2 SENSOR kit as directed. - TRELEGY ELLIPTA 100-62.5-25 mcg INHALE 1 PUFF BY MOUTH DAILY - glipiZIDE (GLUCOTROL) 10 mg tablet Take 10 mg by mouth twice daily. - HYDROcodone-acetamino phen (NORCO) 5-325 mg per tablet TAKE 1 TABLET BY MOUTH FOUR TIMES A DAY NEEDED - COMBIVENT RESPIMAT 20-100 mcg/actuation inhaler INHALE 1 PUFF BY MOUTH 4 TIMES A DAY - metoprolol succinate ER (TOPROL XL) 25 mg 24 hr tablet Take 25 mg by mouth once daily. - omeprazole (PRILOSEC) 20 mg capsule Take 20 mg by mouth once daily. - OZEMPIC 0.25 mg or 0.5 mg(2 mg/1.5 mL) pnij INJECT 0.5MG SUBCUTANEOUSLY WEEKLY - theophylline ER (UNIPHYL) 400 mg 24 hr tablet Take 400 mg by mouth twice daily. - valACYclovir (VALTREX) 1 gram Take 2,000 mg by mouth twice daily. - VENLAFAXINE ER 150 MG TABLET,EXTENDED RELEASE 24 HR Take 150 mg by mouth twice daily. 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 03-22-2023 [facility] Telephone (PULMAHENDRAN) RICARDO HYLTON ([id number]) 1960 M Date Time Provider Department 03/22/23 CAPO MERAZ During your visit today, we recorded the following information about you: Capo Meraz RN 03/22/2023 2:57 PM Signed Attempted to reach patient regarding lung transplant evaluation. He was last seen 03/2021. I was unable to speak with him but left a message to return call to transplant center, phone number provided. Capo Meraz RN, BSN Pre-Lung Numerical Analysis Group Manager Allergies As of Date: 03/22/2023 Noted Allergy Reaction METFORMIN 03/25/2021 5 - Intolerance Comments: diarrhea Date Reviewed: 03/25/2021 Reviewed by: Lia Sanders, RN - Fully Assessed Reason for Visit: Follow up on Lung Tx Referral [Other] Prescriptions as of 04/22/2023 - sbkcc-9-rwqmysjrsx inhibitor (Human) 1,000 mg in water for injection Inject 1,000 mg intravenously one time a week. - pravastatin (PRAVACHOL) 40 mg tablet Take 1 tablet by mouth daily at bedtime. - predniSONE (DELTASONE) 10 mg tablet Take 1 tablet by mouth once daily. - guaiFENesin (MUCINEX) 600 mg 12 hr tablet Take 2 tablets by mouth twice daily. - dilTIAZem CD (CARDIZEM CD) 240 mg 24 hr capsule Take 1 capsule by mouth once daily. - ARIPiprazole (ABILIFY) 10 mg tablet Take 10 mg by mouth once daily. - aspirin, enteric coated (ASPIRIN, ENTERIC COATED) 81 mg EC tablet Take 81 mg by mouth once daily. - FREESTYLE MARTIN 2 SENSOR kit as directed. - TRELEGY ELLIPTA 100-62.5-25 mcg INHALE 1 PUFF BY MOUTH DAILY - glipiZIDE (GLUCOTROL) 10 mg tablet Take 10 mg by mouth twice daily. - HYDROcodone-acetamino phen (NORCO) 5-325 mg per tablet TAKE 1 TABLET BY MOUTH FOUR TIMES A DAY NEEDED - COMBIVENT RESPIMAT 20-100 mcg/actuation inhaler INHALE 1 PUFF BY MOUTH 4 TIMES A DAY - metoprolol succinate ER (TOPROL XL) 25 mg 24 hr tablet Take 25 mg by mouth once daily. - omeprazole (PRILOSEC) 20 mg capsule Take 20 mg by mouth once daily. - OZEMPIC 0.25 mg or 0.5 mg(2 mg/1.5 mL) pnij INJECT 0.5MG SUBCUTANEOUSLY WEEKLY - theophylline ER (UNIPHYL) 400 mg 24 hr tablet Take 400 mg by mouth twice daily. - valACYclovir (VALTREX) 1 gram Take 2,000 mg by mouth twice daily. - VENLAFAXINE ER 150 MG TABLET,EXTENDED RELEASE 24 HR Take 150 mg by mouth twice daily. 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] 02/16/2021 Chronic obstructive pulmonary disease ([facility]) [J4*01/17/2019 Essential hypertension [I10] 02/14/2019 RANCHO (obstructive sleep apnea) [G47.33] 03/25/2021 Depression [F32.A] 03/25/2021 GERD (gastroesophageal reflux disease) [K21.9] 03/25/2021 Diabetes (HCC) [E11.9] 03/25/2021 Bipolar 1 disorder ([facility]) [F31.9] 03/25/2021 Encounter Status:Closed by CAPO MERAZ on 03/22/23 [facility] [place] 03-10-2023 [facility] Telephone (RUSTN) RICARDO HYLTON ([id number]) 1960 M Date Time Provider Department 03/10/23 CAPO MERAZ During your visit today, we recorded the following information about you: Capo Meraz RN 03/10/2023 12:05 PM Signed Attempted to reach patient regarding lung transplant referral. He was last seen in 03/2021 and has not been back since. We have not heard from the patient since 10/2021. I was unable to speak with him and unable to leave a message due to his voicemail being full. Capo Meraz RN, BSN Pre-Lung Numerical Analysis Group Manager Allergies As of Date: 03/10/2023 Noted Allergy Reaction METFORMIN 03/25/2021 5 - Intolerance Comments: diarrhea Date Reviewed: 03/25/2021 Reviewed by: Lia Sanders RN - Fully Assessed Reason for Visit: Follow up on Lung Transplant Referral [Other] Prescriptions as of 03/10/2023 - rfpgw-6-gpcqicsvwb inhibitor (Human) 1,000 mg in water for injection Inject 1,000 mg intravenously one time a week. - pravastatin (PRAVACHOL) 40 mg tablet Take 1 tablet by mouth daily at bedtime. - predniSONE (DELTASONE) 10 mg tablet Take 1 tablet by mouth once daily. - guaiFENesin (MUCINEX) 600 mg 12 hr tablet Take 2 tablets by mouth twice daily. - dilTIAZem CD (CARDIZEM CD) 240 mg 24 hr capsule Take 1 capsule by mouth once daily. - ARIPiprazole (ABILIFY) 10 mg tablet Take 10 mg by mouth once daily. - aspirin, enteric coated (ASPIRIN, ENTERIC COATED) 81 mg EC tablet Take 81 mg by mouth once daily. - FREESTYLE MARTIN 2 SENSOR kit as directed. - TRELEGY ELLIPTA 100-62.5-25 mcg INHALE 1 PUFF BY MOUTH DAILY - glipiZIDE (GLUCOTROL) 10 mg tablet Take 10 mg by mouth twice daily. - HYDROcodone-acetamino phen (NORCO) 5-325 mg per tablet TAKE 1 TABLET BY MOUTH FOUR TIMES A DAY NEEDED - COMBIVENT RESPIMAT 20-100 mcg/actuation inhaler INHALE 1 PUFF BY MOUTH 4 TIMES A DAY - metoprolol succinate ER (TOPROL XL) 25 mg 24 hr tablet Take 25 mg by mouth once daily. - omeprazole (PRILOSEC) 20 mg capsule Take 20 mg by mouth once daily. - OZEMPIC 0.25 mg or 0.5 mg(2 mg/1.5 mL) pnij INJECT 0.5MG SUBCUTANEOUSLY WEEKLY - theophylline ER (UNIPHYL) 400 mg 24 hr tablet Take 400 mg by mouth twice daily. - valACYclovir (VALTREX) 1 gram Take 2,000 mg by mouth twice daily. - VENLAFAXINE ER 150 MG TABLET,EXTENDED RELEASE 24 HR Take 150 mg by mouth twice daily. 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] 02/16/2021 Chronic obstructive pulmonary disease (HCC) [J4*01/17/2019 Essential hypertension [I10] 02/14/2019 RANCHO (obstructive sleep apnea) [G47.33] 03/25/2021 Depression [F32.A] 03/25/2021 GERD (gastroesophageal reflux disease) [K21.9] 03/25/2021 Diabetes (HCC) [E11.9] 03/25/2021 Bipolar 1 disorder (HCC) [F31.9] 03/25/2021 Encounter Status:Closed by CAPO MERAZ on 03/10/23 Normal [facility] CARDIAC JUSTINE 3-6on 3 CK [Catalytic activity/Vol] 49 U/L Normal 39-308 [facility] Comment on above: Performed By: #### C MP #### [facility] [address] [address] [address] Jessie Lomax CK.MB [Mass/Vol] 1.93 ng/mL Normal <=3.60 [facility] Comment on above: Performed By: #### C MP #### [facility] [address] [address] [address] Jessie Lomax HSTROP 7.8 pg/mL Normal 4.0-76.1 [facility] Comment on above: Result Comment: CUT- OFF POINTS HAVE BEEN ESTABLISHED BASED ON THE FOURTH UNIVERSAL DEFINITIONS OF MYOCARDIAL INFARCTION. THE UPPER REFERENCE LIMIT (URL) OF TROPONIN, DEFINED THE 99TH PERCENTILE OF cTnI DISTRIBUTION IN A REFERENCE POPULATION, HAS BEEN CONFIRMED THE DECISION THRESHOLD FOR MO DIAGNOSIS. Performed By: #### C MP #### [facility] [address] [place] [address] Dr. Jessie Lomax LACTATE/LACTIC ACIDon 2022 Lactate [Moles/Vol] 1.5 mmol/L Normal 0.4-2.0 [facility] Comment on above: Performed By: #### B [id number] #### [facility] [address] [place] [address] Dr. Jessie Lomax Lactate [Moles/Vol] 2.5 mmol/L Critically high 0.4-2.0 [facility] Comment on above: Performed By: #### B [id number] #### [facility] [address] [place] [address] Dr. Jessie Lomax CARDIAC JUSTINE ADMITon 023 CK [Catalytic activity/Vol] 36 U/L Critically low 39-308 [facility] Comment on above: Performed By: #### A CETON #### [facility] [address] [place] [address] Dr. Jessie Lomax CK.MB [Mass/Vol] 1.50 ng/mL Normal <=3.60 [facility] Comment on above: Performed By: #### A CETON #### [facility] [address] [place] [address] Dr. Jessie Lomax HSTROP 7.4 pg/mL Normal 4.0-76.1 [facility] Comment on above: Result Comment: CUT- OFF POINTS HAVE BEEN ESTABLISHED BASED ON THE FOURTH UNIVERSAL DEFINITIONS OF MYOCARDIAL INFARCTION. THE UPPER REFERENCE LIMIT (URL) OF TROPONIN, DEFINED THE 99TH PERCENTILE OF cTnI DISTRIBUTION IN A REFERENCE POPULATION, HAS BEEN CONFIRMED THE DECISION THRESHOLD FOR MO DIAGNOSIS. Performed By: #### A CETON #### [facility] [address] [place] [address] Dr. Jessie Lomax HERLINDA 44 ng/mL Normal 16-96 [facility] Comment on above: Performed By: #### A CETON #### [facility] [address] [address] [address] Jessie Lomax CBC AUTO DIFFon 10-03-2022 BASO # 0.1 103/ul Normal 0.0-0.1 [facility] Comment on above: Performed By: #### C BC #### [facility] [address] [address] [address] Jessie Lomax Basophils/100 WBC (Bld) 0.5 % Normal 0.2-2.0 [facility] Comment on above: Performed By: #### C BC #### [facility] [address] [address] [address] Jessie Lomax EO # 0.0 103/ul Normal 0.0-0.7 [facility] Comment on above: Performed By: #### C BC #### [facility] [address] [place] [address] Dr. Jessie Lomax Eosinophils/100 WBC (Bld) 0.2 % Critically low 0.9-7.0 [facility] Comment on above: Performed By: #### C BC #### [facility] [address] [address] [address] Jessie Lomax Erythrocyte distribution width (RBC) [Ratio] 14.6 % Normal 11.0-15.0 [facility] Comment on above: Performed By: #### C BC #### [facility] [address] [place] [address] Dr. Jessie Lomax Hematocrit (Bld) [Volume fraction] 49.6 % Normal 42.0-54.0 [facility] Comment on above: Performed By: #### C BC #### [facility] [address] [address] [address] Jessie Lomax Hemoglobin (Bld) [Mass/Vol] 16.6 g/dL Normal 14.0-18.0 [facility] Comment on above: Performed By: #### C BC #### [facility] [address] [address] [address] Jessie Lomax IG # 0.10 10e3/ul Critically high 0.00-0.03 [facility] Comment on above: Performed By: #### C BC #### [facility] [address] [address] [address] Jessie Lomax IG % 0.8 % Critically high 0.0-0.5 [facility] Comment on above: Performed By: #### C BC #### [facility] [address] [address] [address] Jessie Lomax LYMPH # 1.0 103/ul Critically low 1.2-3.8 [facility] Comment on above: Performed By: #### C BC #### [facility] [address] [place] [address] Dr. Jessie Lomax Lymphocytes/100 WBC (Bld) 8.2 % Critically low 20.5-60.0 [facility] Comment on above: Performed By: #### C BC #### [facility] [address] [place] [address] Dr. Jessie Lomax MANUAL DIFF REQ NO Normal [facility] Comment on above: Performed By: #### C BC #### [facility] [address] [place] [address] Dr. Jessie Lomax MCH (RBC) [Entitic mass] 31.0 pg Normal 25.9-34.0 [facility] Comment on above: Performed By: #### C BC #### [facility] [address] [place] [address] Dr. Jessie Lomax MCHC (RBC) [Mass/Vol] 33.5 g/dL Normal 29.9-35.2 [facility] Comment on above: Performed By: #### C BC #### [facility] [address] [place] [address] Dr. Jessie Lomax MCV (RBC) [Entitic vol] 92.5 fL Normal 80.0-94.0 [facility] Comment on above: Performed By: #### C BC #### [facility] [address] [place] [address] Dr. Jessie Lomax MONO # 0.6 103/ul Normal 0.3-0.8 [facility] Comment on above: Performed By: #### C BC #### [facility] [address] [place] [address] Dr. Jessie Lomax Monocytes/100 WBC (Bld) 4.9 % Normal 1.7-12.0 [facility] Comment on above: Performed By: #### C BC #### [facility] [address] [place] [address] Dr. Jessie Lomax NEUT # 10.5 103/ul Critically high 1.4-6.5 [facility] Comment on above: Performed By: #### C BC #### [facility] [address] [place] [address] Dr. Jessie Lomax Neutrophils/100 WBC (Bld) 85.4 % Critically high 43.0-75.0 [facility] Comment on above: Performed By: #### C BC #### [facility] [address] [place] [address] Dr. Jessie Lomax Platelet mean volume (Bld) [Entitic vol] 9.3 fL Critically low 9.5-13.5 [facility] Comment on above: Performed By: #### C BC #### [facility] [address] [place] [address] Dr. Jessie Lomax PLT 259 103/ul Normal 150-450 [facility] Comment on above: Performed By: #### C BC #### [facility] [address] [place] [address] Dr. Jessie Lomax RBC 5.36 106/ul Normal 4.70-6.10 [facility] Comment on above: Performed By: #### C BC #### [facility] [address] [place] [address] Dr. Jessie Lomax WBC 12.3 103/ul Critically high 4.0-11.0 [facility] Comment on above: Performed By: #### C BC #### [facility] [address] [place] [address] Dr. Jessie Lomax LACTATE/LACTIC ACIDon 2022 Lactate [Moles/Vol] 2.9 mmol/L Critically high 0.4-2.0 [facility] Comment on above: Performed By: #### C MP #### [facility] [address] [address] [address] Jessie Lomax PROF CHEM 8 (BAS METB)on Anion gap [Moles/Vol] 8.7 mmol/L Normal [facility] Comment on above: Performed By: #### A CETON #### [facility] [address] [address] [address] Jessie Lomax Calcium [Mass/Vol] 8.9 mg/dL Normal 8.5-10.1 [facility] Comment on above: Performed By: #### A CETON #### [facility] [address] [place] [address] Dr. Jessie Lmoax Chloride [Moles/Vol] 100 mmol/L Normal 98-107 [facility] Comment on above: Performed By: #### A CETON #### [facility] [address] [place] [address] Dr. Jessie Lomax CO2 [Moles/Vol] 32.6 mmol/L Critically high 21.0-32.0 [facility] Comment on above: Performed By: #### A CETON #### [facility] [address] [place] [address] Dr. Jessie Lomax Creatinine [Mass/Vol] 1.32 mg/dL Critically high 0.70-1.30 [facility] Comment on above: Performed By: #### A CETON #### [facility] [address] [place] [address] Dr. Jessie Lomax EGFR-AF BURUNDIAN >60 Normal >=60 [facility] Comment on above: Performed By: #### A CETON #### [facility] [address] [address] [address] Jessie Lomax EGFR-NON AF BURUNDIAN 55 mL/min/1.73m2 Critically low >=60 [facility] Comment on above: Performed By: #### A CETON #### [facility] [address] [place] [address] Dr. Jessie Lomax Glucose [Mass/Vol] 360 mg/dL Critically high 74-106 [facility] Comment on above: Performed By: #### A CETON #### [facility] [address] [address] [address] Jessie Lomax Potassium [Moles/Vol] 4.3 mmol/L Normal 3.5-5.1 [facility] Comment on above: Performed By: #### A CETON #### [facility] [address] [address] [address] Jessie Lomax Sodium [Moles/Vol] 137 mmol/L Normal 136-145 [facility] Comment on above: Performed By: #### A CETON #### [facility] [address] [address] [address] Jessie Lomax Urea nitrogen [Mass/Vol] 20.0 mg/dL Critically high 7.0-18.0 [facility] Comment on above: Performed By: #### A CETON #### [facility] [address] [address] [address] Jessie Lomax Urea nitrogen/Creatinine [Mass ratio] 15.2 mg/mg Normal [facility] Comment on above: Performed By: #### A CETON #### [facility] [address] [address] [address] Jessie Lomax XR CHEST 1 Von 10-03-2022 XR CHEST 1 V EXAMINATION: XR CHES T 1 V HISTORY: Shortness of breath COMPARISON: Portable chest 08/29/2022 TECHNIQUE: Portable chest FINDINGS: The lung parenchyma is free of consolidation or infiltrate. No pneumothorax or pleural effusion. The cardiac, mediastinal and hilar contours are normal. The visualized osseous structures exhibit no gross abnormality. IMPRESSION: No acute cardiopulmonary abnormality. Electronically authenticated by: SOLA SHELL Date: 2022-10-03 20:56 Normal [facility] ER URINE PROFILEon 3 Bilirubin Ql (U) Negative Normal NEGATIVE [facility] Comment on above: Performed By: #### T TYLER #### [facility] [address] [address] [address] Jessie Lomax Clarity (U) CLEAR Normal CLEAR [facility] Comment on above: Performed By: #### T TYLER #### [facility] [address] [place] [address] Dr. Jessie Lomax Color (U) LT. YELLOW Normal YELLOW [facility] Comment on above: Performed By: #### T TYLER #### [facility] [address] [place] [address] Dr. Jessie BROOKS A micrscopic examination will be performed if indicated. Normal [facility] Comment on above: Performed By: #### T TYLER #### [facility] [address] [place] [address] Dr. Jessie Lomax Glucose Ql (U) >1000 Abnormal NEGATIVE The [facility] Comment on above: Performed By: #### T TYLER #### [facility] [address] [place] [address] Dr. Jessie Lomax Hemoglobin Ql (U) Negative Normal NEGATIVE [facility] Comment on above: Performed By: #### T TYLER #### [facility] [address] [place] [address] Dr. Jessie Lomax Ketones Ql (U) Negative Normal NEGATIVE [facility] Comment on above: Performed By: #### T TYLER #### [facility] [address] [place] [address] Dr. Jessie Lomax LEUKOCYTES Negative Normal NEGATIVE [facility] Comment on above: Performed By: #### T TYLER #### [facility] [address] [place] [address] Dr. Jessie Lomax Nitrite Ql (U) Negative Normal NEGATIVE The [facility] Comment on above: Performed By: #### T TYLER #### [facility] [address] [place] [address] Dr. Jessie Lomax pH (U) 6.0 [pH] Normal 5-9 [facility] Comment on above: Performed By: #### T TYLER #### [facility] [address] [place] [address] Dr. Jessie Lomax SPEC GRAVITY <=1.005 Abnormal 1.005-<=1.025 [facility] Comment on above: Performed By: #### T TYLER #### [facility] [address] [place] [address] Dr. Jessie Lomax UA PROTEIN Negative Normal NEGATIVE/ TRACE [facility] Comment on above: Performed By: #### T TYLER #### [facility] [address] [place] [address] Dr. Jessie Lomax UR MICRO IND NOT INDICATED Normal [facility] Comment on above: Performed By: #### T TYLER #### [facility] [address] [place] [address] Dr. Jessie Lomax Urobilinogen Qn (U) 0.2 {Angelique'U}/dL Normal 0.2 - 1. 0 [facility] Comment on above: Performed By: #### T TYLER #### [facility] [address] [place] [address] Dr. Jessie Lomax CBC AUTO DIFFon 08-30-2022 BASO # 0.0 103/ul Normal 0.0-0.1 [facility] Comment on above: Performed By: #### C BC #### [facility] [address] [place] [address] Dr. Jessie Lomax Basophils/100 WBC (Bld) 0.1 % Critically low 0.2-2.0 [facility] Comment on above: Performed By: #### C BC #### [facility] [address] [place] [address] Dr. Jessie Lomax EO # 0.0 103/ul Normal 0.0-0.7 [facility] Comment on above: Performed By: #### C BC #### [facility] [address] [place] [address] Dr. Jessie Lomax Eosinophils/100 WBC (Bld) 0.1 % Critically low 0.9-7.0 [facility] Comment on above: Performed By: #### C BC #### [facility] [address] [place] [address] Dr. Jessie Lomax Erythrocyte distribution width (RBC) [Ratio] 13.6 % Normal 11.0-15.0 [facility] Comment on above: Performed By: #### C BC #### [facility] [address] [place] [address] Dr. Jessie Lomax Hematocrit (Bld) [Volume fraction] 46.3 % Normal 42.0-54.0 [facility] Comment on above: Performed By: #### C BC #### [facility] [address] [address] [address] Jessie Lomax Hemoglobin (Bld) [Mass/Vol] 15.4 g/dL Normal 14.0-18.0 [facility] Comment on above: Performed By: #### C BC #### [facility] [address] [address] [address] Jessie Lomax IG # 0.08 10e3/ul Critically high 0.00-0.03 [facility] Comment on above: Performed By: #### C BC #### [facility] [address] [place] [address] Dr. Jessei Lomax IG % 0.6 % Critically high 0.0-0.5 [facility] Comment on above: Performed By: #### C BC #### [facility] [address] [address] [address] Jessie Lomax LYMPH # 0.8 103/ul Critically low 1.2-3.8 [facility] Comment on above: Performed By: #### C BC #### [facility] [address] [place] [address] Dr. Jessie Lomax Lymphocytes/100 WBC (Bld) 5.7 % Critically low 20.5-60.0 [facility] Comment on above: Performed By: #### C BC #### [facility] [address] [place] [address] Dr. Jessie Lomax MANUAL DIFF REQ NO Normal [facility] Comment on above: Performed By: #### C BC #### [facility] [address] [place] [address] Dr. Jessie Lomax MCH (RBC) [Entitic mass] 30.2 pg Normal 25.9-34.0 [facility] Comment on above: Performed By: #### C BC #### [facility] [address] [place] [address] Dr. Jessie Lomax MCHC (RBC) [Mass/Vol] 33.3 g/dL Normal 29.9-35.2 [facility] Comment on above: Performed By: #### C BC #### [facility] [address] [place] [address] Dr. Jessie Lomax MCV (RBC) [Entitic vol] 90.8 fL Normal 80.0-94.0 [facility] Comment on above: Performed By: #### C BC #### [facility] [address] [place] [address] Dr. Jessie Lomax MONO # 0.4 103/ul Normal 0.3-0.8 [facility] Comment on above: Performed By: #### C BC #### [facility] [address] [place] [address] Dr. Jessie Lomax Monocytes/100 WBC (Bld) 2.9 % Normal 1.7-12.0 [facility] Comment on above: Performed By: #### C BC #### [facility] [address] [place] [address] Dr. Jessie Lomax NEUT # 12.3 103/ul Critically high 1.4-6.5 [facility] Comment on above: Performed By: #### C BC #### [facility] [address] [place] [address] Dr. Jessie Lomax Neutrophils/100 WBC (Bld) 90.6 % Critically high 43.0-75.0 [facility] Comment on above: Performed By: #### C BC #### [facility] [address] [place] [address] Dr. Jessie Lomax Platelet mean volume (Bld) [Entitic vol] 9.3 fL Critically low 9.5-13.5 [facility] Comment on above: Performed By: #### C BC #### [facility] [address] [place] [address] Dr. Jessie Lomax PLT 389 103/ul Normal 150-450 [facility] Comment on above: Performed By: #### C BC #### [facility] [address] [place] [address] Dr. Jessie Lomax RBC 5.10 106/ul Normal 4.70-6.10 [facility] Comment on above: Performed By: #### C BC #### [facility] [address] [place] [address] Dr. Jessie Lomax WBC 13.6 103/ul Critically high 4.0-11.0 [facility] Comment on above: Performed By: #### C BC #### [facility] [address] [place] [address] Dr. Jessie Lomax POINT OF CARE GLUCOSEon 08-18 Glucose [Mass/Vol] 283 mg/dL Critically high 74-106 [facility] Comment on above: Performed By: #### C BC #### [facility] [address] [place] [address] Dr. Jessie Lomax Glucose [Mass/Vol] 315 mg/dL Critically high 74-106 [facility] Comment on above: Performed By: #### T TYLER #### [facility] [address] [place] [address] Dr. Jessie Lomax PROF 14(COMP METB)on 023 Albumin [Mass/Vol] 3.7 g/dL Normal 3.4-5.0 [facility] Comment on above: Performed By: #### C MP #### [facility] [address] [place] [address] Dr. Jessie Lomax Albumin/Globulin [Mass ratio] 1.0 {ratio} Normal [facility] Comment on above: Performed By: #### C MP #### [facility] [address] [place] [address] Dr. Jessie Lomax ALP [Catalytic activity/Vol] 94 U/L Normal 46-116 [facility] Comment on above: Performed By: #### C MP #### [facility] [address] [place] [address] Dr. Jessie Lomax ALT [Catalytic activity/Vol] 23 U/L Normal 16-63 [facility] Comment on above: Performed By: #### C MP #### [facility] [address] [place] [address] Dr. Jessie Lomax Anion gap [Moles/Vol] 13.6 mmol/L Normal [facility] Comment on above: Performed By: #### C MP #### [facility] [address] [address] [address] Jessie Lomax AST [Catalytic activity/Vol] 9 U/L Critically low 15-37 [facility] Comment on above: Performed By: #### C MP #### [facility] [address] [address] [address] Jessie Lomax Bilirubin [Mass/Vol] 0.3 mg/dL Normal 0.2-1.0 [facility] Comment on above: Performed By: #### C MP #### [facility] [address] [address] [address] Jessie Lomax Calcium [Mass/Vol] 9.8 mg/dL Normal 8.5-10.1 [facility] Comment on above: Performed By: #### C MP #### [facility] [address] [address] [address] Jessie Lomax Chloride [Moles/Vol] 99 mmol/L Normal 98-107 [facility] Comment on above: Performed By: #### C MP #### [facility] [address] [address] [address] Jessie Lomax CO2 [Moles/Vol] 29.2 mmol/L Normal 21.0-32.0 [facility] Comment on above: Performed By: #### C MP #### [facility] [address] [address] [address] Jessie Lomax Creatinine [Mass/Vol] 1.17 mg/dL Normal 0.70-1.30 [facility] Comment on above: Performed By: #### C MP #### [facility] [address] [address] [address] Jessie Lomax EGFR-AF BURUNDIAN >60 Normal >=60 [facility] Comment on above: Performed By: #### C MP #### [facility] [address] [address] [address] Jessie Lomax EGFR-NON AF BURUNDIAN >60 Normal >=60 [facility] Comment on above: Performed By: #### C MP #### [facility] [address] [address] [address] Jessie Lomax Globulin (S) [Mass/Vol] 3.6 g/dL Normal [facility] Comment on above: Performed By: #### C MP #### [facility] [address] [address] [address] Jessie Lomax Glucose [Mass/Vol] 259 mg/dL Critically high 74-106 [facility] Comment on above: Performed By: #### C MP #### [facility] [address] [address] [address] Jessie Lomax Potassium [Moles/Vol] 3.8 mmol/L Normal 3.5-5.1 [facility] Comment on above: Performed By: #### C MP #### [facility] [address] [address] [address] Jessie Lomax Protein [Mass/Vol] 7.3 g/dL Normal 6.4-8.2 [facility] Comment on above: Performed By: #### C MP #### [facility] [address] [address] [address] Jessie Lomax Sodium [Moles/Vol] 138 mmol/L Normal 136-145 [facility] Comment on above: Performed By: #### C MP #### [facility] [address] [address] [address] Jessie Lomax Urea nitrogen [Mass/Vol] 21.0 mg/dL Critically high 7.0-18.0 [facility] Comment on above: Performed By: #### C MP #### [facility] [address] [address] [address] Jessie Lomax Urea nitrogen/Creatinine [Mass ratio] 17.9 mg/mg Normal [facility] Comment on above: Performed By: #### C MP #### [facility] [address] [place] [address] Dr. Jessie Lomax BLOOD GASES BTYon 08-29-2022 02 MODE HAND HELD NEB Normal [facility] Comment on above: Performed By: #### C MP #### [facility] [address] [address] [address] Jessie Lomax ALLENS TEST Positive Normal [facility] Comment on above: Performed By: #### C MP #### [facility] [address] [address] [address] Jessie Lomax Base excess Calc (Bld) [Moles/Vol] 2.1 mmol/L Critically high -2.0-2.0 [facility] Comment on above: Performed By: #### C MP #### [facility] [address] [address] [address] Jessie Lomax BIPAP PRESSURE Normal [facility] Comment on above: Performed By: #### C MP #### [facility] [address] [place] [address] Dr. Jessie Lomax CPAP [facility] Comment on above: Performed By: #### C MP #### [facility] [address] [place] [address] Dr. Jessie Lomax FIO2 [facility] Comment on above: Performed By: #### C MP #### [facility] [address] [place] [address] Dr. Jessie Lomax HCO3 (Bld) [Moles/Vol] 27.7 mmol/L Critically high 22.0-26.0 [facility] Comment on above: Performed By: #### C MP #### [facility] [address] [place] [address] Dr. Jessie Lomax LPM 6 Normal [facility] Comment on above: Performed By: #### C MP #### [facility] [address] [place] [address] Dr. Jessie Lomax MINUTE VOLUME Normal [facility] Comment on above: Performed By: #### C MP #### [facility] [address] [place] [address] Dr. Jessie Lomax Oxygen (Bld) [Partial pressure] 90.6 mm[Hg] Normal 80.0-100.0 [facility] Comment on above: Performed By: #### C MP #### [facility] [address] [place] [address] Dr. Jessie Lomax Oxygen saturation in Blood 95.5 % Normal 95.0-100.0 [facility] Comment on above: Performed By: #### C MP #### [facility] [address] [place] [address] Dr. Jessie Lomax PCO2 49.7 mmHg Critically high 35.0-45.0 [facility] Comment on above: Performed By: #### C MP #### [facility] [address] [place] [address] Dr. Jessie Lomax PEEP [facility] Comment on above: Performed By: #### C MP #### [facility] [address] [place] [address] Dr. Jessie Lomax pH (Bld) 7.354 [pH] Normal 7.350-7.450 [facility] Comment on above: Performed By: #### C MP #### [facility] [address] [place] [address] Dr. Jessie Lomax PIP [facility] Comment on above: Performed By: #### C MP #### [facility] [address] [place] [address] Dr. Jessie Lomax PS [facility] Comment on above: Performed By: #### C MP #### [facility] [address] [place] [address] Dr. Jessie Lomax PUNCTURE SITE RR [facility] Comment on above: Performed By: #### C MP #### [facility] [address] [place] [address] Dr. Jessie Lomax RATE [facility] Comment on above: Performed By: #### C MP #### [facility] [address] [place] [address] Dr. Jessie Lomax VENT MODE [facility] Comment on above: Performed By: #### C MP #### [facility] [address] [place] [address] Dr. Jessie Lomax [facility] Comment on above: Performed By: #### C MP #### [facility] [address] [place] [address] Dr. Jessie Lomax BNPon 08-29-2022 Natriuretic peptide B (Bld) [Mass/Vol] 130.0 pg/mL Normal <=900.0 [facility] Comment on above: Performed By: #### B [id number] #### [facility] [address] [place] [address] Dr. Jessie Lomax CARDIAC JUSTNIE ADMITon 023 CK [Catalytic activity/Vol] 41 U/L Normal 39-308 [facility] Comment on above: Performed By: #### B [id number] #### [facility] [address] [place] [address] Dr. Jessie Lomax CK.MB [Mass/Vol] 1.87 ng/mL Normal <=3.60 [facility] Comment on above: Performed By: #### B [id number] #### [facility] [address] [place] [address] Dr. Jessie Lomax HSTROP 27.3 pg/mL Normal 4.0-76.1 [facility] Comment on above: Result Comment: CUT- OFF POINTS HAVE BEEN ESTABLISHED BASED ON THE FOURTH UNIVERSAL DEFINITIONS OF MYOCARDIAL INFARCTION. THE UPPER REFERENCE LIMIT (URL) OF TROPONIN, DEFINED THE 99TH PERCENTILE OF cTnI DISTRIBUTION IN A REFERENCE POPULATION, HAS BEEN CONFIRMED THE DECISION THRESHOLD FOR MO DIAGNOSIS. Performed By: #### B [id number] #### [facility] [address] [place] [address] Dr. Jessie Lomax HERLINDA 36 ng/mL Normal 16-96 [facility] Comment on above: Performed By: #### B [id number] #### [facility] [address] [place] [address] Dr. Jessie Lomax CBC AUTO DIFFon 08-29-2022 BASO # 0.1 103/ul Normal 0.0-0.1 [facility] Comment on above: Performed By: #### C BC #### [facility] [address] [place] [address] Dr. Jessie Lomax Basophils/100 WBC (Bld) 0.7 % Normal 0.2-2.0 [facility] Comment on above: Performed By: #### C BC #### [facility] [address] [place] [address] Dr. Jessie Lomax EO # 0.1 103/ul Normal 0.0-0.7 [facility] Comment on above: Performed By: #### C BC #### [facility] [address] [place] [address] Dr. Jessie Lomax Eosinophils/100 WBC (Bld) 0.8 % Critically low 0.9-7.0 [facility] Comment on above: Performed By: #### C BC #### [facility] [address] [place] [address] Dr. Jessie Lomax Erythrocyte distribution width (RBC) [Ratio] 13.6 % Normal 11.0-15.0 [facility] Comment on above: Performed By: #### C BC #### [facility] [address] [place] [address] Dr. Jessie Lomax Hematocrit (Bld) [Volume fraction] 51.6 % Normal 42.0-54.0 [facility] Comment on above: Performed By: #### C BC #### [facility] [address] [place] [address] Dr. Jessie Lomax Hemoglobin (Bld) [Mass/Vol] 17.1 g/dL Normal 14.0-18.0 [facility] Comment on above: Performed By: #### C BC #### [facility] [address] [place] [address] Dr. Jessie Lomax IG # 0.05 10e3/ul Critically high 0.00-0.03 [facility] Comment on above: Performed By: #### C BC #### [facility] [address] [place] [address] Dr. Jessie Lomax IG % 0.5 % Normal 0.0-0.5 [facility] Comment on above: Performed By: #### C BC #### [facility] [address] [place] [address] Dr. Jessie Lomax LYMPH # 2.1 103/ul Normal 1.2-3.8 [facility] Comment on above: Performed By: #### C BC #### [facility] [address] [place] [address] Dr. Jessie Lomax Lymphocytes/100 WBC (Bld) 20.9 % Normal 20.5-60.0 [facility] Comment on above: Performed By: #### C BC #### [facility] [address] [place] [address] Dr. Jessie Lomax MANUAL DIFF REQ NO Normal [facility] Comment on above: Performed By: #### C BC #### [facility] [address] [place] [address] Dr. Jessie Lomax MCH (RBC) [Entitic mass] 30.7 pg Normal 25.9-34.0 [facility] Comment on above: Performed By: #### C BC #### [facility] [address] [place] [address] Dr. Jessie Lomax MCHC (RBC) [Mass/Vol] 33.1 g/dL Normal 29.9-35.2 [facility] Comment on above: Performed By: #### C BC #### [facility] [address] [place] [address] Dr. Jessie Lomax MCV (RBC) [Entitic vol] 92.6 fL Normal 80.0-94.0 [facility] Comment on above: Performed By: #### C BC #### [facility] [address] [place] [address] Dr. Jessie Lomax MONO # 1.0 103/ul Critically high 0.3-0.8 [facility] Comment on above: Performed By: #### C BC #### [facility] [address] [place] [address] Dr. Jessie Lomax Monocytes/100 WBC (Bld) 9.5 % Normal 1.7-12.0 [facility] Comment on above: Performed By: #### C BC #### [facility] [address] [place] [address] Dr. Jessie Lomax NEUT # 6.7 103/ul Critically high 1.4-6.5 [facility] Comment on above: Performed By: #### C BC #### [facility] [address] [place] [address] Dr. Jessie Lomax Neutrophils/100 WBC (Bld) 67.6 % Normal 43.0-75.0 [facility] Comment on above: Performed By: #### C BC #### [facility] [address] [place] [address] Dr. Jessie Lomax Platelet mean volume (Bld) [Entitic vol] 9.5 fL Normal 9.5-13.5 [facility] Comment on above: Performed By: #### C BC #### [facility] [address] [place] [address] Dr. Jessie Lomax PLT 407 103/ul Normal 150-450 [facility] Comment on above: Performed By: #### C BC #### [facility] [address] [place] [address] Dr. Jessie Lomax RBC 5.57 106/ul Normal 4.70-6.10 [facility] Comment on above: Performed By: #### C BC #### [facility] [address] [place] [address] Dr. Jessie Lomax WBC 10.0 103/ul Normal 4.0-11.0 [facility] Comment on above: Performed By: #### C BC #### [facility] [address] [place] [address] Dr. Jessie Lomax CULTURE BLOODon 08-29-2022 Microscopic examination of blood, culture Culture Observations: NO GROWTH AT 5 DAYS. Normal [facility] Comment on above: Performed By: #### C MP #### [facility] [address] [place] [address] Dr. Jessie Lomax Microscopic examination of blood, culture Culture Observations: NO GROWTH AT 5 DAYS. Normal [facility] Comment on above: Performed By: #### B [id number] #### [facility] [address] [place] [address] Dr. Jessie Lomax [facility]18 SARS-CoV-2 (COVID-19) RNA YOLANDA+probe Ql (Unsp spec) Not detected Normal NOT DETECTED [facility] Comment on above: Result Comment: When diagnostic testing is negative, the possibility of a false negative should be considered in the context of a patient's recent exposures and the presence of clinical signs and symptoms consistent with SARS-CoV-2. This test is not yet approved or cleared by the [place] FDA. When there are no FDA-approved or cleared tests available, and other criteria are met, FDA can make tests available under an emergency access mechanism called an Emergency Use Authorization (EUA). The EUA for this test is supported by the [place] of Health and Human Service's declaration that circumstances exist to justify the emergency use of in vitro diagnostics for the detection and/or diagnosis of the virus that causes COVID-19. This EUA will remain in effect for the duration of the COVID-19 declaration justifying emergency of IVDs, unless it is terminated or revoked by the FDA (after which the test may no longer be used). Performed By: #### B [id number] #### [facility] [address] [place] [address] Dr. Jessie Lomax ER URINE PROFILEon 3 Bilirubin Ql (U) Negative Normal NEGATIVE [facility] Comment on above: Performed By: #### A CETON #### [facility] [address] [place] [address] Dr. Jessie Lomax Clarity (U) CLEAR Normal CLEAR [facility] Comment on above: Performed By: #### A CETON #### [facility] [address] [place] [address] Dr. Jessie Lomax Color (U) YELLOW Normal YELLOW [facility] Comment on above: Performed By: #### A CETON #### [facility] [address] [place] [address] Dr. Jessie Lomax ERURIVASD A micrscopic examination will be performed if indicated. Normal [facility] Comment on above: Performed By: #### A CETON #### [facility] [address] [place] [address] Dr. Jessie Lomax Glucose Ql (U) 500 mg/dl Abnormal NEGATIVE The [facility] Comment on above: Performed By: #### A CETON #### [facility] [address] [place] [address] Dr. Jessie Lomax Hemoglobin Ql (U) Negative Normal NEGATIVE [facility] Comment on above: Performed By: #### A CETON #### [facility] [address] [place] [address] Dr. Jessie Lomax Ketones Ql (U) TRACE Abnormal NEGATIVE The [facility] Comment on above: Performed By: #### A CETON #### [facility] [address] [place] [address] Dr. Jessie Lomax LEUKOCYTES Negative Normal NEGATIVE [facility] Comment on above: Performed By: #### A CETON #### [facility] [address] [place] [address] Dr. Jessie Lomax Nitrite Ql (U) Negative Normal NEGATIVE The [facility] Comment on above: Performed By: #### A CETON #### [facility] [address] [place] [address] Dr. Jessie Lomax pH (U) 5.5 [pH] Normal 5-9 [facility] Comment on above: Performed By: #### A CETON #### [facility] [address] [place] [address] Dr. Jessie Lomax SPEC GRAVITY >=1.030 Abnormal 1.005-<=1.025 [facility] Comment on above: Performed By: #### A CETON #### [facility] [address] [place] [address] Dr. Jessie Lomax UA PROTEIN Negative Normal NEGATIVE/ TRACE [facility] Comment on above: Performed By: #### A CETON #### [facility] [address] [place] [address] Dr. Jessie Lomax UR MICRO IND NOT INDICATED Normal [facility] Comment on above: Performed By: #### A CETON #### [facility] [address] [place] [address] Dr. Jessie Lomax Urobilinogen Qn (U) 0.2 {Angelique'U}/dL Normal 0.2 - 1. 0 [facility] Comment on above: Performed By: #### A CETON #### [facility] [address] [place] [address] Dr. Jessie Lomax LACTATE/LACTIC ACIDon 2022 Lactate [Moles/Vol] 1.6 mmol/L Normal 0.4-1.9 [facility] Comment on above: Performed By: #### L ACT #### [facility] [address] [address] [address] Jessie Lomax POINT OF CARE GLUCOSEon 08-18 Glucose [Mass/Vol] 330 mg/dL Critically high 74-106 [facility] Comment on above: Performed By: #### A CETON #### [facility] [address] [place] [address] Dr. Jessie Lomax Glucose [Mass/Vol] 284 mg/dL Critically high -106 [facility] Comment on above: Performed By: #### C BC #### [facility] [address] [place] [address] Dr. Jessie Lomax Glucose [Mass/Vol] 379 mg/dL Critically high -106 [facility] Comment on above: Performed By: #### B [id number] #### [facility] [address] [place] [address] Dr. Jessie Lomax Glucose [Mass/Vol] 276 mg/dL Critically high -106 [facility] Comment on above: Performed By: #### T TYLER #### [facility] [address] [place] [address] Dr. Jessie Lomax PROF 14(COMP METB)on 023 Albumin [Mass/Vol] 3.8 g/dL Normal 3.4-5.0 [facility] Comment on above: Performed By: #### B [id number] #### [facility] [address] [place] [address] Dr. Jessie Lomax Albumin/Globulin [Mass ratio] 1.0 {ratio} Normal [facility] Comment on above: Performed By: #### B [id number] #### [facility] [address] [place] [address] Dr. Jessie Lomax ALP [Catalytic activity/Vol] 106 U/L Normal 46-116 [facility] Comment on above: Performed By: #### B [id number] #### [facility] [address] [address] [address] Jessie Lomax ALT [Catalytic activity/Vol] 27 U/L Normal 16-63 [facility] Comment on above: Performed By: #### B [id number] #### [facility] [address] [place] [address] Dr. Jessie Lomax Anion gap [Moles/Vol] 12.0 mmol/L Normal [facility] Comment on above: Performed By: #### B [id number] #### [facility] [address] [place] [address] Dr. Jessie Lomax AST [Catalytic activity/Vol] 15 U/L Normal 15-37 [facility] Comment on above: Performed By: #### B [id number] #### [facility] [address] [place] [address] Dr. Jessie Lomax Bilirubin [Mass/Vol] 0.3 mg/dL Normal 0.2-1.0 [facility] Comment on above: Performed By: #### B [id number] #### [facility] [address] [place] [address] Dr. Jessie Lomax Calcium [Mass/Vol] 10.0 mg/dL Normal 8.5-10.1 [facility] Comment on above: Performed By: #### B [id number] #### [facility] [address] [place] [address] Dr. Jessie Lomax Chloride [Moles/Vol] 101 mmol/L Normal 98-107 [facility] Comment on above: Performed By: #### B [id number] #### [facility] [address] [place] [address] Dr. Jessie Lomax CO2 [Moles/Vol] 32.4 mmol/L Critically high 21.0-32.0 [facility] Comment on above: Performed By: #### B [id number] #### [facility] [address] [place] [address] Dr. Jessie Lomax Creatinine [Mass/Vol] 1.14 mg/dL Normal 0.70-1.30 [facility] Comment on above: Performed By: #### B [id number] #### [facility] [address] [place] [address] Dr. Jessie Lomax EGFR-AF BURUNDIAN >60 Normal >=60 [facility] Comment on above: Performed By: #### B [id number] #### [facility] [address] [place] [address] Dr. Jessie Lomax EGFR-NON AF BURUNDIAN >60 Normal >=60 [facility] Comment on above: Performed By: #### B [id number] #### [facility] [address] [address] [address] Jessie Lomax Globulin (S) [Mass/Vol] 3.7 g/dL Normal [facility] Comment on above: Performed By: #### B [id number] #### [facility] [address] [place] [address] Dr. Jessie Lomax Glucose [Mass/Vol] 204 mg/dL Critically high 74-106 [facility] Comment on above: Performed By: #### B [id number] #### [facility] [address] [place] [address] Dr. Jessie Lomax Potassium [Moles/Vol] 4.4 mmol/L Normal 3.5-5.1 [facility] Comment on above: Performed By: #### B [id number] #### [facility] [address] [place] [address] Dr. Jessie Lomax Protein [Mass/Vol] 7.5 g/dL Normal 6.4-8.2 [facility] Comment on above: Performed By: #### B [id number] #### [facility] [address] [place] [address] Dr. Jessie Lomax Sodium [Moles/Vol] 141 mmol/L Normal 136-145 [facility] Comment on above: Performed By: #### B [id number] #### [facility] [address] [place] [address] Dr. Jessie Lomax Urea nitrogen [Mass/Vol] 23.0 mg/dL Critically high 7.0-18.0 [facility] Comment on above: Performed By: #### B [id number] #### [facility] [address] [address] [address] Jessie Lomax Urea nitrogen/Creatinine [Mass ratio] 20.2 mg/mg Normal [facility] Comment on above: Performed By: #### B [id number] #### [facility] [address] [place] [address] Dr. Jessie Lomax THEOPHYLLINEon 08-29-2022 THEOPHYLLINE <2.0 Critically low 10.0-20.0 [facility] Comment on above: Performed By: #### B [id number] #### [facility] [address] [place] [address] Dr. Jessie Lomax XR CHEST 1 Von 08-29-2022 XR CHEST 1 V EXAM: XR CHEST 1 V HISTORY: SHORTNESS OF BREATH COMPARISON: 06/30/2022 TECHNIQUE: Chest single view. FINDINGS: Patient is somewhat rotated limiting assessment. Lines/tubes/devices: EKG leads and other extrinsic structures overlie the chest. Cardiomediastinum: Cardiac silhouette appears normal in size. Unremarkable mediastinal silhouette. Vasculature: No increased pulmonary vasculature. Lungs/pleura: Lungs appear hyperinflated with interstitial coarsening, findings suggestive of COPD/emphysema. Mild bibasilar opacities favoring atelectasis or scar. No confluent consolidation, pleural effusion, or pneumothorax is seen. Bones/soft tissues: Bony thorax appears grossly intact as seen. Regional soft tissues unremarkable. IMPRESSION: Changes of COPD/emphysema suggested, without evidence of acute superimposed airspace disease. Electronically authenticated by: YADIRA BALLESTEROS Date: 2022-08-29 02:03 Normal [facility] ACETONE SERUMon 08-17-2022 ACETONE Negative Normal NEGATIVE [facility] Comment on above: Performed By: #### A CETON #### [facility] [address] [place] [address] Dr. Jessie Lomax BNPon 08-17-2022 Natriuretic peptide B (Bld) [Mass/Vol] 294.0 pg/mL Normal <=900.0 [facility] Comment on above: Performed By: #### A CETON #### [facility] [address] [place] [address] Dr. Jessie Lomax CBC AUTO DIFFon 08-17-2022 BASO # 0.1 103/ul Normal 0.0-0.1 [facility] Comment on above: Performed By: #### C BC #### [facility] [address] [address] [address] Jessie Lomax Basophils/100 WBC (Bld) 0.7 % Normal 0.2-2.0 [facility] Comment on above: Performed By: #### C BC #### [facility] [address] [address] [address] Jessie Lomax EO # 0.1 103/ul Normal 0.0-0.7 [facility] Comment on above: Performed By: #### C BC #### [facility] [address] [place] [address] Dr. Jessie Lomax Eosinophils/100 WBC (Bld) 0.9 % Normal 0.9-7.0 [facility] Comment on above: Performed By: #### C BC #### [facility] [address] [place] [address] Dr. Jessie Lomax Erythrocyte distribution width (RBC) [Ratio] 13.4 % Normal 11.0-15.0 [facility] Comment on above: Performed By: #### C BC #### [facility] [address] [place] [address] Dr. Jessie Lomax Hematocrit (Bld) [Volume fraction] 43.2 % Normal 42.0-54.0 [facility] Comment on above: Performed By: #### C BC #### [facility] [address] [place] [address] Dr. Jessie Lomax Hemoglobin (Bld) [Mass/Vol] 14.5 g/dL Normal 14.0-18.0 [facility] Comment on above: Performed By: #### C BC #### [facility] [address] [place] [address] Dr. Jessie Lomax IG # 0.04 10e3/ul Critically high 0.00-0.03 [facility] Comment on above: Performed By: #### C BC #### [facility] [address] [place] [address] Dr. Jessie Lomax IG % 0.5 % Normal 0.0-0.5 [facility] Comment on above: Performed By: #### C BC #### [facility] [address] [place] [address] Dr. Jessie Lomax LYMPH # 1.9 103/ul Normal 1.2-3.8 [facility] Comment on above: Performed By: #### C BC #### [facility] [address] [place] [address] Dr. Jessie Lomax Lymphocytes/100 WBC (Bld) 22.1 % Normal 20.5-60.0 [facility] Comment on above: Performed By: #### C BC #### [facility] [address] [place] [address] Dr. Jessie Lomax MANUAL DIFF REQ NO Normal [facility] Comment on above: Performed By: #### C BC #### [facility] [address] [place] [address] Dr. Jessie Lomax MCH (RBC) [Entitic mass] 30.7 pg Normal 25.9-34.0 [facility] Comment on above: Performed By: #### C BC #### [facility] [address] [place] [address] Dr. Jessie Lomax MCHC (RBC) [Mass/Vol] 33.6 g/dL Normal 29.9-35.2 [facility] Comment on above: Performed By: #### C BC #### [facility] [address] [place] [address] Dr. Jessie Lomax MCV (RBC) [Entitic vol] 91.5 fL Normal 80.0-94.0 [facility] Comment on above: Performed By: #### C BC #### [facility] [address] [place] [address] Dr. Jessie Lomax MONO # 0.7 103/ul Normal 0.3-0.8 [facility] Comment on above: Performed By: #### C BC #### [facility] [address] [place] [address] Dr. Jessie Lomax Monocytes/100 WBC (Bld) 7.7 % Normal 1.7-12.0 [facility] Comment on above: Performed By: #### C BC #### [facility] [address] [place] [address] Dr. Jessie Lomax NEUT # 5.8 103/ul Normal 1.4-6.5 [facility] Comment on above: Performed By: #### C BC #### [facility] [address] [place] [address] Dr. Jessie Lomax Neutrophils/100 WBC (Bld) 68.1 % Normal 43.0-75.0 [facility] Comment on above: Performed By: #### C BC #### [facility] [address] [place] [address] Dr. Jessie Lomax Platelet mean volume (Bld) [Entitic vol] 9.0 fL Critically low 9.5-13.5 [facility] Comment on above: Performed By: #### C BC #### [facility] [address] [place] [address] Dr. Jessie Lomax PLT 275 103/ul Normal 150-450 [facility] Comment on above: Performed By: #### C BC #### [facility] [address] [place] [address] Dr. Jessie Lomax RBC 4.72 106/ul Normal 4.70-6.10 [facility] Comment on above: Performed By: #### C BC #### [facility] [address] [place] [address] Dr. Jessie Lomax WBC 8.6 103/ul Normal 4.0-11.0 [facility] Comment on above: Performed By: #### C BC #### [facility] [address] [place] [address] Dr. Jessie Lomax CTA CHEST WO W CONon 023 CTA CHEST WO W CON EXAMINATION: CTA CHEST WO W CON HISTORY: SHORTNESS OF BREATH COMPARISON: None. TECHNIQUE: CT angiography of the pulmonary arteries following the administration of intravenous contrast. Coronal and sagittal MIP (maximum intensity projection) images were performed. 100 mL Omnipaque 350. Dose reduction techniques were achieved by using automated exposure control and/or adjustment of mA and/or kV according to patient size and/or use of iterative reconstruction technique. FINDINGS: There is moderate centrilobular and paraseptal emphysema. Scattered scarring and atelectasis seen throughout the middle and lower lungs. No pneumothorax. No pleural effusion. No focal consolidation. No pulmonary nodules and. No aortic dissection. No aortic aneurysm. The heart size appears within normal limits. No pericardial effusion. No suspicious lymphadenopathy in the chest. Visualization of the upper abdomen is limited. Multilevel degenerative osteophytes of the thoracic spine. IMPRESSION: No pulmonary embolism. No aortic aneurysm or dissection. Emphysema. Electronically authenticated by: DAVID GIBBS Date: 2022-08-17 17:23 Normal [facility] CULTURE BLOODon 08-17-2022 Microscopic examination of blood, culture Culture Observations: NO GROWTH AT 5 DAYS. Normal [facility] Comment on above: Performed By: #### C MP #### [facility] [address] [address] [address] Jessie Lomax Microscopic examination of blood, culture Culture Observations: NO GROWTH AT 5 DAYS. Normal [facility] Comment on above: Performed By: #### B [id number] #### [facility] [address] [address] [address] Jessie Lom[facility] SARS-CoV-2 (COVID-19) RNA YOLANDA+probe Ql (Unsp spec) Not detected Normal NOT DETECTED [facility] Comment on above: Result Comment: When diagnostic testing is negative, the possibility of a false negative should be considered in the context of a patient's recent exposures and the presence of clinical signs and symptoms consistent with SARS-CoV-2. This test is not yet approved or cleared by the [place] FDA. When there are no FDA-approved or cleared tests available, and other criteria are met, FDA can make tests available under an emergency access mechanism called an Emergency Use Authorization (EUA). The EUA for this test is supported by the Automatic Clipper of Health and Human Service's declaration that circumstances exist to justify the emergency use of in vitro diagnostics for the detection and/or diagnosis of the virus that causes COVID-19. This EUA will remain in effect for the duration of the COVID-19 declaration justifying emergency of IVDs, unless it is terminated or revoked by the FDA (after which the test may no longer be used). Performed By: #### C BC #### [facility] [address] [place] [address] Dr. Jessie Lomax LACTATE/LACTIC ACIDon 2022 Lactate [Moles/Vol] 2.0 mmol/L Critically high 0.4-1.9 [facility] Comment on above: Performed By: #### C BC #### [facility] [address] [place] [address] Dr. Jessie Lomax PH VENOUS BLOODon 08-17-2022 PCO2 VENOUS 44.5 mmHg Normal 40.0-52.0 [facility] Comment on above: Performed By: #### C BC #### [facility] [address] [place] [address] Dr. Jessie Lomax pH VENOUS 7.433 Critically high 7.330-7.430 [facility] Comment on above: Performed By: #### C BC #### [facility] [address] [place] [address] Dr. Jessie Lomax PROF 14(COMP METB)on 023 Albumin [Mass/Vol] 3.4 g/dL Normal 3.4-5.0 [facility] Comment on above: Performed By: #### C BC #### [facility] [address] [place] [address] Dr. Jessie Lomax Albumin/Globulin [Mass ratio] 1.1 {ratio} Normal [facility] Comment on above: Performed By: #### C BC #### [facility] [address] [place] [address] Dr. Jessie Lomax ALP [Catalytic activity/Vol] 90 U/L Normal 46-116 [facility] Comment on above: Performed By: #### C BC #### [facility] [address] [place] [address] Dr. Jessie Lomax ALT [Catalytic activity/Vol] 26 U/L Normal 16-63 [facility] Comment on above: Performed By: #### C BC #### [facility] [address] [place] [address] Dr. Jessie Lomax Anion gap [Moles/Vol] 11.1 mmol/L Normal [facility] Comment on above: Performed By: #### C BC #### [facility] [address] [address] [address] Jessie Lomax AST [Catalytic activity/Vol] 9 U/L Critically low 15-37 [facility] Comment on above: Performed By: #### C BC #### [facility] [address] [address] [address] Jessie Lomax Bilirubin [Mass/Vol] 0.2 mg/dL Normal 0.2-1.0 [facility] Comment on above: Performed By: #### C BC #### [facility] [address] [address] [address] Jessie Lomax Calcium [Mass/Vol] 9.0 mg/dL Normal 8.5-10.1 [facility] Comment on above: Performed By: #### C BC #### [facility] [address] [address] [address] Jessie Lomax Chloride [Moles/Vol] 103 mmol/L Normal 98-107 [facility] Comment on above: Performed By: #### C BC #### [facility] [address] [address] [address] Jessie Lomax CO2 [Moles/Vol] 31.5 mmol/L Normal 21.0-32.0 [facility] Comment on above: Performed By: #### C BC #### [facility] [address] [address] [address] Jessie Lomax Creatinine [Mass/Vol] 0.94 mg/dL Normal 0.70-1.30 [facility] Comment on above: Performed By: #### C BC #### [facility] [address] [address] [address] Jessie Lomax EGFR-AF BURUNDIAN >60 Normal >=60 [facility] Comment on above: Performed By: #### C BC #### [facility] [address] [address] [address] Jessie Lomax EGFR-NON AF BURUNDIAN >60 Normal >=60 [facility] Comment on above: Performed By: #### C BC #### [facility] [address] [address] [address] Jessie Lomax Globulin (S) [Mass/Vol] 3.2 g/dL Normal [facility] Comment on above: Performed By: #### C BC #### [facility] [address] [address] [address] Jessie Lomax Glucose [Mass/Vol] 124 mg/dL Critically high 74-106 [facility] Comment on above: Performed By: #### C BC #### [facility] [address] [address] [address] Jessie Lomax Potassium [Moles/Vol] 3.6 mmol/L Normal 3.5-5.1 [facility] Comment on above: Performed By: #### C BC #### [facility] [address] [place] [address] Dr. Jessie Lomax Protein [Mass/Vol] 6.6 g/dL Normal 6.4-8.2 [facility] Comment on above: Performed By: #### C BC #### [facility] [address] [place] [address] Dr. Jessie Lomax Sodium [Moles/Vol] 142 mmol/L Normal 136-145 [facility] Comment on above: Performed By: #### C BC #### [facility] [address] [place] [address] Dr. Jessie Lomax Urea nitrogen [Mass/Vol] 14.0 mg/dL Normal 7.0-18.0 [facility] Comment on above: Performed By: #### C BC #### [facility] [address] [place] [address] Dr. Jessie Lomax Urea nitrogen/Creatinine [Mass ratio] 14.9 mg/mg Normal [facility] Comment on above: Performed By: #### C BC #### [facility] [address] [place] [address] Dr. Jessie Lomax PROTIMEon 08-17-2022 INR Coag (PPP) [Relative time] {INR} Normal [facility] Comment on above: Performed By: #### B [id number] #### [facility] [address] [place] [address] Dr. Jessie Lomax INR GUIDELINES SEE BELOW Normal [facility] Comment on above: Result Comment: VANESSA RED INR: 2.0 - 3.0 CONDITIONS NOT LISTED BELOW 2.5 - 3.5 FOR PROSTHETIC HEART VALVE REPLACEMENT 2.5 - 3.5 RECURRENT THROMBOSIS Performed By: #### B [id number] #### [facility] [address] [address] [address] Jessie Lomax PT Coag (PPP) [Time] 9.7 s Normal 9.0-11.6 [facility] Comment on above: Performed By: #### B [id number] #### [facility] [address] [place] [address] Dr. Jessie Lomax PTTon 08-17-2022 aPTT Coag (Bld) [Time] 23.4 s Normal 22.3-36.2 [facility] Comment on above: Performed By: #### B [id number] #### [facility] [address] [place] [address] Dr. Jessie Lomax TROPONIN, HIGH SENSITIVITYon 08-17-2022 HSTROP 14.6 pg/mL Normal 4.0-76.1 [facility] Comment on above: Result Comment: CUT- OFF POINTS HAVE BEEN ESTABLISHED BASED ON THE FOURTH UNIVERSAL DEFINITIONS OF MYOCARDIAL INFARCTION. THE UPPER REFERENCE LIMIT (URL) OF TROPONIN, DEFINED THE 99TH PERCENTILE OF cTnI DISTRIBUTION IN A REFERENCE POPULATION, HAS BEEN CONFIRMED THE DECISION THRESHOLD FOR MO DIAGNOSIS. Performed By: #### A CETON #### [facility] [address] [place] [address] Dr. Jessie Lomax TSHon 08-17-2022 TSH 1.079 uIU/mL Normal 0.358-3.740 [facility] Comment on above: Performed By: #### C BC #### [facility] [address] [place] [address] Dr. Jessie Lomax THEOPHYLLINEon 08-10-2022 THEOPHYLLINE 11.3 ug/mL Normal 10.0-20.0 [facility] Comment on above: Performed By: #### T TYLER #### [facility] [address] [address] [address] Jessie Lomax CBC AUTO DIFFon 07-02-2022 BASO # 0.0 103/ul Normal 0.0-0.1 [facility] Comment on above: Performed By: #### T TYLER #### [facility] [address] [place] [address] Dr. Jessie Lomax Basophils/100 WBC (Bld) 0.1 % Critically low 0.2-2.0 [facility] Comment on above: Performed By: #### T TYLER #### [facility] [address] [place] [address] Dr. Jessie Lomax EO # 0.0 103/ul Normal 0.0-0.7 [facility] Comment on above: Performed By: #### T TYLER #### [facility] [address] [place] [address] Dr. Jessie Lomax Eosinophils/100 WBC (Bld) 0.1 % Critically low 0.9-7.0 [facility] Comment on above: Performed By: #### T TYLER #### [facility] [address] [place] [address] Dr. Jessie Lomax Erythrocyte distribution width (RBC) [Ratio] 13.6 % Normal 11.0-15.0 [facility] Comment on above: Performed By: #### T TYLER #### [facility] [address] [place] [address] Dr. Jessie Lomax Hematocrit (Bld) [Volume fraction] 44.4 % Normal 42.0-54.0 [facility] Comment on above: Performed By: #### T TYLER #### [facility] [address] [place] [address] Dr. Jessie Lomax Hemoglobin (Bld) [Mass/Vol] 14.9 g/dL Normal 14.0-18.0 [facility] Comment on above: Performed By: #### T TYLER #### [facility] [address] [place] [address] Dr. Jessie Lomax IG # 0.11 10e3/ul Critically high 0.00-0.03 [facility] Comment on above: Performed By: #### T TYLER #### [facility] [address] [address] [address] Jessie Lomax IG % 0.7 % Critically high 0.0-0.5 [facility] Comment on above: Performed By: #### T TYLER #### [facility] [address] [address] [address] Jessie Lomax LYMPH # 0.8 103/ul Critically low 1.2-3.8 [facility] Comment on above: Performed By: #### T TYLER #### [facility] [address] [address] [address] Jessie Lomax Lymphocytes/100 WBC (Bld) 5.1 % Critically low 20.5-60.0 [facility] Comment on above: Performed By: #### T TYLER #### [facility] [address] [place] [address] Dr. Jessie Lomax MANUAL DIFF REQ NO Normal [facility] Comment on above: Performed By: #### T TYLER #### [facility] [address] [address] [address] Jessie Lomax MCH (RBC) [Entitic mass] 31.1 pg Normal 25.9-34.0 [facility] Comment on above: Performed By: #### T TYLER #### [facility] [address] [place] [address] Dr. Jessie Lomax MCHC (RBC) [Mass/Vol] 33.6 g/dL Normal 29.9-35.2 [facility] Comment on above: Performed By: #### T TYLER #### [facility] [address] [place] [address] Dr. Jessie Lomax MCV (RBC) [Entitic vol] 92.7 fL Normal 80.0-94.0 [facility] Comment on above: Performed By: #### T TYLER #### [facility] [address] [address] [address] Jessie Lomax MONO # 0.4 103/ul Normal 0.3-0.8 [facility] Comment on above: Performed By: #### T TYLER #### [facility] [address] [address] [address] Jessie Lomax Monocytes/100 WBC (Bld) 2.6 % Normal 1.7-12.0 [facility] Comment on above: Performed By: #### T TYLER #### [facility] [address] [address] [address] Jessie Lomax NEUT # 13.8 103/ul Critically high 1.4-6.5 [facility] Comment on above: Performed By: #### T TYLER #### [facility] [address] [place] [address] Dr. Jessie Lomax Neutrophils/100 WBC (Bld) 91.4 % Critically high 43.0-75.0 [facility] Comment on above: Performed By: #### T TYLER #### [facility] [address] [place] [address] Dr. Jessie Lomax Platelet mean volume (Bld) [Entitic vol] 9.9 fL Normal 9.5-13.5 [facility] Comment on above: Performed By: #### T TYLER #### [facility] [address] [place] [address] Dr. Jessie Lomax PLT 300 103/ul Normal 150-450 [facility] Comment on above: Performed By: #### T TYLER #### [facility] [address] [place] [address] Dr. Jessie Lomax RBC 4.79 106/ul Normal 4.70-6.10 [facility] Comment on above: Performed By: #### T TYLER #### [facility] [address] [place] [address] Dr. Jessie Lomax WBC 15.1 103/ul Critically high 4.0-11.0 [facility] Comment on above: Performed By: #### T TYLER #### [facility] [address] [place] [address] Dr. Jessie Lomax POINT OF CARE GLUCOSEon 06-17 Glucose [Mass/Vol] 288 mg/dL Critically high 74-106 [facility] Comment on above: Performed By: #### C BC #### [facility] [address] [address] [address] Jessie Lomax Glucose [Mass/Vol] 280 mg/dL Critically high 74-106 [facility] Comment on above: Performed By: #### T TYLER #### [facility] [address] [address] [address] Jessie Lomax PROF 14(COMP METB)on 022 Albumin [Mass/Vol] 3.7 g/dL Normal 3.4-5.0 [facility] Comment on above: Performed By: #### C MP #### [facility] [address] [place] [address] Dr. Jessie Lomax Albumin/Globulin [Mass ratio] 1.1 {ratio} Normal [facility] Comment on above: Performed By: #### C MP #### [facility] [address] [place] [address] Dr. Jessie Lomax ALP [Catalytic activity/Vol] 73 U/L Normal 46-116 [facility] Comment on above: Performed By: #### C MP #### [facility] [address] [address] [address] Jessie Lomax ALT [Catalytic activity/Vol] 22 U/L Normal 16-63 [facility] Comment on above: Performed By: #### C MP #### [facility] [address] [place] [address] Dr. Jessie Lomax Anion gap [Moles/Vol] 13.4 mmol/L Normal [facility] Comment on above: Performed By: #### C MP #### [facility] [address] [address] [address] Jessie Lomax AST [Catalytic activity/Vol] 16 U/L Normal 15-37 [facility] Comment on above: Performed By: #### C MP #### [facility] [address] [place] [address] Dr. Jessie Lomax Bilirubin [Mass/Vol] 0.3 mg/dL Normal 0.2-1.0 [facility] Comment on above: Performed By: #### C MP #### [facility] [address] [address] [address] Jessie Lomax Calcium [Mass/Vol] 9.3 mg/dL Normal 8.5-10.1 [facility] Comment on above: Performed By: #### C MP #### [facility] [address] [address] [address] Jessie Lomax Chloride [Moles/Vol] 98 mmol/L Normal 98-107 [facility] Comment on above: Performed By: #### C MP #### [facility] [address] [place] [address] Dr. Jessie Lomax CO2 [Moles/Vol] 29.9 mmol/L Normal 21.0-32.0 [facility] Comment on above: Performed By: #### C MP #### [facility] [address] [place] [address] Dr. Jessie Lomax Creatinine [Mass/Vol] 1.18 mg/dL Normal 0.70-1.30 [facility] Comment on above: Performed By: #### C MP #### [facility] [address] [place] [address] Dr. Jessie Lomax EGFR-AF BURUNDIAN >60 Normal >=60 [facility] Comment on above: Performed By: #### C MP #### [facility] [address] [place] [address] Dr. Jessie Lomax EGFR-NON AF BURUNDIAN >60 Normal >=60 [facility] Comment on above: Performed By: #### C MP #### [facility] [address] [place] [address] Dr. Jessie Lomax Globulin (S) [Mass/Vol] 3.3 g/dL Normal [facility] Comment on above: Performed By: #### C MP #### [facility] [address] [place] [address] Dr. Jessie Lomax Glucose [Mass/Vol] 329 mg/dL Critically high 74-106 [facility] Comment on above: Performed By: #### C MP #### [facility] [address] [place] [address] Dr. Jessie Lomax Potassium [Moles/Vol] 4.3 mmol/L Normal 3.5-5.1 [facility] Comment on above: Performed By: #### C MP #### [facility] [address] [place] [address] Dr. Jessie Lomax Protein [Mass/Vol] 7.0 g/dL Normal 6.4-8.2 [facility] Comment on above: Performed By: #### C MP #### [facility] [address] [place] [address] Dr. Jessie Lomax Sodium [Moles/Vol] 137 mmol/L Normal 136-145 [facility] Comment on above: Performed By: #### C MP #### [facility] [address] [place] [address] Dr. Jessie Lomax Urea nitrogen [Mass/Vol] 21.0 mg/dL Critically high 7.0-18.0 [facility] Comment on above: Performed By: #### C MP #### [facility] [address] [place] [address] Dr. Jessie Lomax Urea nitrogen/Creatinine [Mass ratio] 17.8 mg/mg Normal [facility] Comment on above: Performed By: #### C MP #### [facility] [address] [place] [address] Dr. Jessie Lomax CBC W MANUAL DIFFon 07-01-20 22 ATYPICAL LYMPH # Normal [facility] Comment on above: Performed By: #### C BC #### [facility] [address] [place] [address] Dr. Jessie Lomax ATYPICAL LYMPH % Normal [facility] Comment on above: Performed By: #### C BC #### [facility] [address] [place] [address] Dr. Jessie Lomax BAND # 0.1 103/ul Normal 0.0-0.3 [facility] Comment on above: Performed By: #### C BC #### [facility] [address] [place] [address] Dr. Jessie Lomax BAND % 1 % Normal 0-5 [facility] Comment on above: Performed By: #### C BC #### [facility] [address] [address] [address] Jessie Lomax BASOM # 0.00 103/ul Normal 0.00-0.10 [facility] Comment on above: Performed By: #### C BC #### [facility] [address] [address] [address] Jessie Lomax BASOM % 0.0 % Critically low 0.2-2.0 The [facility] Comment on above: Performed By: #### C BC #### [facility] [address] [address] [address] Jessie Lomax BLAST # Normal [facility] Comment on above: Performed By: #### C BC #### [facility] [address] [place] [address] Dr. Jessie Lomax BLAST % Normal [facility] Comment on above: Performed By: #### C BC #### [facility] [address] [place] [address] Dr. Jessie Lomax CORRECTED WBC Normal 4.0-11.0 [facility] Comment on above: Performed By: #### C BC #### [facility] [address] [place] [address] Dr. Jessie Lomax EOS # 0.12 103/ul Normal 0.00-0.70 [facility] Comment on above: Performed By: #### C BC #### [facility] [address] [place] [address] Dr. Jessie Lomax EOS% 1.0 % Normal 0.9-7.0 [facility] Comment on above: Performed By: #### C BC #### [facility] [address] [place] [address] Dr. Jessie Lomax HCT 45.4 % Normal 42.0-54.0 [facility] Comment on above: Performed By: #### C BC #### [facility] [address] [place] [address] Dr. Jessie Lomax HGB 15.5 g/dl Normal 14.0-18.0 [facility] Comment on above: Performed By: #### C BC #### [facility] [address] [place] [address] Dr. Jessie Lomax LYMPHM # 0.48 103/ul Critically low 1.20-3.80 [facility] Comment on above: Performed By: #### C BC #### [facility] [address] [place] [address] Dr. Jessie Lomax LYMPHM% 4.0 % Critically low 20.5-60.0 [facility] Comment on above: Performed By: #### C BC #### [facility] [address] [place] [address] Dr. Jessie Lomax MCH 31.8 pg Normal 25.9-34.0 [facility] Comment on above: Performed By: #### C BC #### [facility] [address] [place] [address] Dr. Jessie Lomax MCHC 34.1 g/dl Normal 29.9-35.2 [facility] Comment on above: Performed By: #### C BC #### [facility] [address] [place] [address] Dr. Jessie Lomax MCV 93.0 fL Normal 80.0-94.0 [facility] Comment on above: Performed By: #### C BC #### [facility] [address] [place] [address] Dr. Jessie Lomax METAMYELOCYTE # Normal [facility] Comment on above: Performed By: #### C BC #### [facility] [address] [place] [address] Dr. Jessie Lomax METAMYELOCYTE % Normal [facility] Comment on above: Performed By: #### C BC #### [facility] [address] [place] [address] Dr. Jessie Lomax MONOM# 0.24 103/ul Critically low 0.30-0.80 [facility] Comment on above: Performed By: #### C BC #### [facility] [address] [place] [address] Dr. Jessie Lomax MONOM% 2.0 % Normal 1.7-12.0 [facility] Comment on above: Performed By: #### C BC #### [facility] [address] [address] [address] Jessie Lomax MPV 9.6 fL Normal 9.5-13.5 [facility] Comment on above: Performed By: #### C BC #### [facility] [address] [address] [address] Jessie Lomax MYELOCYTE # Normal [facility] Comment on above: Performed By: #### C BC #### [facility] [address] [address] [address] Jessie Lomax MYELOCYTE % Normal [facility] Comment on above: Performed By: #### C BC #### [facility] [address] [place] [address] Dr. Jessie Lomax NRBC Normal [facility] Comment on above: Performed By: #### C BC #### [facility] [address] [place] [address] Dr. Jessie Lomax PLT 300 103/ul Normal 150-450 [facility] Comment on above: Performed By: #### C BC #### [facility] [address] [address] [address] Jessie Lomax RBC 4.88 106/ul Normal 4.70-6.10 [facility] Comment on above: Performed By: #### C BC #### [facility] [address] [place] [address] Dr. Jessie Lomax RDW 13.5 % Normal 11.0-15.0 [facility] Comment on above: Performed By: #### C BC #### [facility] [address] [place] [address] Dr. Jessie Lomax SEG # 10.95 103/ul Critically high 1.40-6.50 [facility] Comment on above: Performed By: #### C BC #### [facility] [address] [place] [address] Dr. Jessie Lomax SEG % 92.0 % Critically high 43.0-75.0 [facility] Comment on above: Performed By: #### C BC #### [facility] [address] [address] [address] Jessie Lomax WBC 11.9 103/ul Critically high 4.0-11.0 [facility] Comment on above: Performed By: #### C BC #### [facility] [address] [address] [address] Jessie Lomax POINT OF CARE GLUCOSEon 06-17 Glucose [Mass/Vol] 428 mg/dL Critically high 74-106 [facility] Comment on above: Performed By: #### A CETON #### [facility] [address] [place] [address] Dr. Jessie Lomax Glucose [Mass/Vol] 337 mg/dL Critically high 74-106 [facility] Comment on above: Performed By: #### B [id number] #### [facility] [address] [place] [address] Dr. Jessie Lomax Glucose [Mass/Vol] 233 mg/dL Critically high 74-106 [facility] Comment on above: Performed By: #### B [id number] #### [facility] [address] [place] [address] Dr. Jessie Lomax PROF 14(COMP METB)on 022 Albumin [Mass/Vol] 3.7 g/dL Normal 3.4-5.0 [facility] Comment on above: Performed By: #### C MP #### [facility] [address] [place] [address] Dr. Jessie Lomax Albumin/Globulin [Mass ratio] 1.1 {ratio} Normal [facility] Comment on above: Performed By: #### C MP #### [facility] [address] [place] [address] Dr. Jessie Lomax ALP [Catalytic activity/Vol] 86 U/L Normal 46-116 [facility] Comment on above: Performed By: #### C MP #### [facility] [address] [place] [address] Dr. Jessie Lomax ALT [Catalytic activity/Vol] 20 U/L Normal 16-63 [facility] Comment on above: Performed By: #### C MP #### [facility] [address] [address] [address] Jessie Lomax Anion gap [Moles/Vol] 13.8 mmol/L Normal [facility] Comment on above: Performed By: #### C MP #### [facility] [address] [address] [address] Jessie Lomax AST [Catalytic activity/Vol] 10 U/L Critically low 15-37 [facility] Comment on above: Performed By: #### C MP #### [facility] [address] [address] [address] Jessie Lomax Bilirubin [Mass/Vol] 0.3 mg/dL Normal 0.2-1.0 [facility] Comment on above: Performed By: #### C MP #### [facility] [address] [place] [address] Dr. Jessie Lomax Calcium [Mass/Vol] 9.3 mg/dL Normal 8.5-10.1 [facility] Comment on above: Performed By: #### C MP #### [facility] [address] [place] [address] Dr. Jessie Lomax Chloride [Moles/Vol] 101 mmol/L Normal 98-107 [facility] Comment on above: Performed By: #### C MP #### [facility] [address] [place] [address] Dr. Jessie Lomax CO2 [Moles/Vol] 27.0 mmol/L Normal 21.0-32.0 [facility] Comment on above: Performed By: #### C MP #### [facility] [address] [place] [address] Dr. Jessie Lomax Creatinine [Mass/Vol] 1.15 mg/dL Normal 0.70-1.30 [facility] Comment on above: Performed By: #### C MP #### [facility] [address] [address] [address] Jessie Lomax EGFR-AF BURUNDIAN >60 Normal >=60 [facility] Comment on above: Performed By: #### C MP #### [facility] [address] [place] [address] Dr. Jessie Lomax EGFR-NON AF BURUNDIAN >60 Normal >=60 [facility] Comment on above: Performed By: #### C MP #### [facility] [address] [place] [address] Dr. Jessie Lomax Globulin (S) [Mass/Vol] 3.5 g/dL Normal [facility] Comment on above: Performed By: #### C MP #### [facility] [address] [address] [address] Jessie Lomax Glucose [Mass/Vol] 284 mg/dL Critically high 74-106 [facility] Comment on above: Performed By: #### C MP #### [facility] [address] [address] [address] Jessie Lomax Potassium [Moles/Vol] 4.8 mmol/L Normal 3.5-5.1 [facility] Comment on above: Performed By: #### C MP #### [facility] [address] [place] [address] Dr. Jessie Lomax Protein [Mass/Vol] 7.2 g/dL Normal 6.4-8.2 [facility] Comment on above: Performed By: #### C MP #### [facility] [address] [place] [address] Dr. Jessie Lomax Sodium [Moles/Vol] 137 mmol/L Normal 136-145 [facility] Comment on above: Performed By: #### C MP #### [facility] [address] [place] [address] Dr. Jessie Lomax Urea nitrogen [Mass/Vol] 22.0 mg/dL Critically high 7.0-18.0 [facility] Comment on above: Performed By: #### C MP #### [facility] [address] [address] [address] Jessie Lomax Urea nitrogen/Creatinine [Mass ratio] 19.1 mg/mg Normal [facility] Comment on above: Performed By: #### C MP #### [facility] [address] [place] [address] Dr. Jessie Lomax ACETONE SERUMon 06-30-2022 ACETONE Negative Normal NEGATIVE [facility] Comment on above: Performed By: #### A CETON #### [facility] [address] [place] [address] Dr. Jessie Lomax BNPon 06-30-2022 Natriuretic peptide B (Bld) [Mass/Vol] 45.0 pg/mL Normal <=900.0 [facility] Comment on above: Performed By: #### T TYLER #### [facility] [address] [place] [address] Dr. Jessie Lomax CBC AUTO DIFFon 06-30-2022 BASO # 0.1 103/ul Normal 0.0-0.1 [facility] Comment on above: Performed By: #### C MP #### [facility] [address] [place] [address] Dr. Jessie Lomax Basophils/100 WBC (Bld) 0.9 % Normal 0.2-2.0 [facility] Comment on above: Performed By: #### C MP #### [facility] [address] [place] [address] Dr. Jessie Lomax EO # 0.1 103/ul Normal 0.0-0.7 [facility] Comment on above: Performed By: #### C MP #### [facility] [address] [place] [address] Dr. Jessie Lomax Eosinophils/100 WBC (Bld) 0.9 % Normal 0.9-7.0 [facility] Comment on above: Performed By: #### C MP #### [facility] [address] [place] [address] Dr. Jessie Lomax Erythrocyte distribution width (RBC) [Ratio] 13.4 % Normal 11.0-15.0 [facility] Comment on above: Performed By: #### C MP #### [facility] [address] [place] [address] Dr. Jessie Lomax Hematocrit (Bld) [Volume fraction] 47.0 % Normal 42.0-54.0 [facility] Comment on above: Performed By: #### C MP #### [facility] [address] [place] [address] Dr. Jessie Lomax Hemoglobin (Bld) [Mass/Vol] 16.0 g/dL Normal 14.0-18.0 [facility] Comment on above: Performed By: #### C MP #### [facility] [address] [place] [address] Dr. Jessie Lomax IG # 0.05 10e3/ul Critically high 0.00-0.03 [facility] Comment on above: Performed By: #### C MP #### [facility] [address] [address] [address] Jessie Lomax IG % 0.5 % Normal 0.0-0.5 [facility] Comment on above: Performed By: #### C MP #### [facility] [address] [place] [address] Dr. Jessie Lomax LYMPH # 2.0 103/ul Normal 1.2-3.8 [facility] Comment on above: Performed By: #### C MP #### [facility] [address] [place] [address] Dr. Jessie Lomax Lymphocytes/100 WBC (Bld) 20.1 % Critically low 20.5-60.0 [facility] Comment on above: Performed By: #### C MP #### [facility] [address] [place] [address] Dr. Jessie Lomax MANUAL DIFF REQ NO Normal [facility] Comment on above: Performed By: #### C MP #### [facility] [address] [place] [address] Dr. Jessie Lomax MCH (RBC) [Entitic mass] 31.5 pg Normal 25.9-34.0 [facility] Comment on above: Performed By: #### C MP #### [facility] [address] [place] [address] Dr. Jessie Lomax MCHC (RBC) [Mass/Vol] 34.0 g/dL Normal 29.9-35.2 [facility] Comment on above: Performed By: #### C MP #### [facility] [address] [place] [address] Dr. Jessie Lomax MCV (RBC) [Entitic vol] 92.5 fL Normal 80.0-94.0 [facility] Comment on above: Performed By: #### C MP #### [facility] [address] [place] [address] Dr. Jessie Lomax MONO # 0.7 103/ul Normal 0.3-0.8 [facility] Comment on above: Performed By: #### C MP #### [facility] [address] [place] [address] Dr. Jessie Lomax Monocytes/100 WBC (Bld) 6.8 % Normal 1.7-12.0 [facility] Comment on above: Performed By: #### C MP #### [facility] [address] [place] [address] Dr. Jessie Lomax NEUT # 6.9 103/ul Critically high 1.4-6.5 [facility] Comment on above: Performed By: #### C MP #### [facility] [address] [place] [address] Dr. Jessie Lomax Neutrophils/100 WBC (Bld) 70.8 % Normal 43.0-75.0 [facility] Comment on above: Performed By: #### C MP #### [facility] [address] [place] [address] Dr. Jessie Lomax Platelet mean volume (Bld) [Entitic vol] 9.5 fL Normal 9.5-13.5 [facility] Comment on above: Performed By: #### C MP #### [facility] [address] [place] [address] Dr. Jessie Lomax PLT 308 103/ul Normal 150-450 [facility] Comment on above: Performed By: #### C MP #### [facility] [address] [place] [address] Dr. Jessie Lomax RBC 5.08 106/ul Normal 4.70-6.10 [facility] Comment on above: Performed By: #### C MP #### [facility] [address] [place] [address] Dr. Jessie Lomax WBC 9.7 103/ul Normal 4.0-11.0 [facility] Comment on above: Performed By: #### C MP #### [facility] [address] [place] [address] Dr. Jessie Lomax CULTURE BLOODon 06-30-2022 Microscopic examination of blood, culture Culture Observations: NO GROWTH AT 5 DAYS. Normal [facility] Comment on above: Performed By: #### B [id number] #### [facility] [address] [place] [address] Dr. Jessie Lomax Microscopic examination of blood, culture Culture Observations: NO GROWTH AT 5 DAYS. Normal [facility] Comment on above: Performed By: #### B [id number] #### [facility] [address] [place] [address] Dr. Jessie Lomax Covid-19 PCR ([facility])on 06-17 SARS-CoV-2 (COVID-19) RNA YOLANDA+probe Ql (Unsp spec) Not detected Normal NOT DETECTED [facility] Comment on above: Result Comment: When diagnostic testing is negative, the possibility of a false negative should be considered in the context of a patient's recent exposures and the presence of clinical signs and symptoms consistent with SARS-CoV-2. This test is not yet approved or cleared by the [place] FDA. When there are no FDA-approved or cleared tests available, and other criteria are met, FDA can make tests available under an emergency access mechanism called an Emergency Use Authorization (EUA). The EUA for this test is supported by the Automatic [employer] of Health and Human Service's declaration that circumstances exist to justify the emergency use of in vitro diagnostics for the detection and/or diagnosis of the virus that causes COVID-19. This EUA will remain in effect for the duration of the COVID-19 declaration justifying emergency of IVDs, unless it is terminated or revoked by the FDA (after which the test may no longer be used). Performed By: #### B [id number] #### [facility] [address] [place] [address] Dr. Jessie Lomax D-DIMERon 06-30-2022 D-DIMER 0.26 mg/L FEU Normal <=0.59 [facility] Comment on above: Performed By: #### C BC #### [facility] [address] [place] [address] Dr. Jessie Lomax D-DIMER COMMENTS SEE BELOW Normal [facility] Comment on above: Result Comment: Incr eases in D-Dimer concentration observed with thromboembolic events can be variable due to localization, size, and age of the thrombus. Therefore, a thromboembolic event cannot be diagnosed with certainty on the basis of the reference range. D-Dimers may also be elevated for a variety of disorders including: advanced age, , coronary disease, cancer, liver disease, infection, inflammation, hematoma, DIC, trauma, post-surgery, diabetes, thrombolytic or anticoagulant therapy, stress, and generalized hospitalization. Performed By: #### C BC #### [facility] [address] [place] [address] Dr. Jessie Lomax LACTATE/LACTIC ACIDon 2021 Lactate [Moles/Vol] 1.7 mmol/L Normal 0.4-1.9 [facility] Comment on above: Performed By: #### B [id number] #### [facility] [address] [place] [address] Dr. Jessie Lomax PH VENOUS BLOODon 06-30-2022 PCO2 VENOUS 54.1 mmHg Critically high 40.0-52.0 [facility] Comment on above: Performed By: #### B [id number] #### [facility] [address] [place] [address] Dr. Jessie Lomax pH VENOUS 7.323 Critically low 7.330-7.430 [facility] Comment on above: Performed By: #### B [id number] #### [facility] [address] [place] [address] Dr. Jessie Lomax PROF 14(COMP METB)on 022 Albumin [Mass/Vol] 3.9 g/dL Normal 3.4-5.0 [facility] Comment on above: Performed By: #### T TYLER #### [facility] [address] [place] [address] Dr. Jessie Lomax Albumin/Globulin [Mass ratio] 1.1 {ratio} Normal [facility] Comment on above: Performed By: #### T TYLER #### [facility] [address] [address] [address] Jessie Lomax ALP [Catalytic activity/Vol] 96 U/L Normal 46-116 [facility] Comment on above: Performed By: #### T TYLER #### [facility] [address] [place] [address] Dr. Jessie Lomax ALT [Catalytic activity/Vol] 19 U/L Normal 16-63 [facility] Comment on above: Performed By: #### T TYLER #### [facility] [address] [address] [address] Jessie Lomax Anion gap [Moles/Vol] 4.5 mmol/L Normal [facility] Comment on above: Performed By: #### T TYLER #### [facility] [address] [place] [address] Dr. Jessie Lomax AST [Catalytic activity/Vol] 13 U/L Critically low 15-37 [facility] Comment on above: Performed By: #### T TYLER #### [facility] [address] [place] [address] Dr. Jessie Lomax Bilirubin [Mass/Vol] 0.4 mg/dL Normal 0.2-1.0 [facility] Comment on above: Performed By: #### T TYLER #### [facility] [address] [place] [address] Dr. Jessie Lomax Calcium [Mass/Vol] 9.2 mg/dL Normal 8.5-10.1 [facility] Comment on above: Performed By: #### T TYLER #### [facility] [address] [place] [address] Dr. Jessie Lomax Chloride [Moles/Vol] 103 mmol/L Normal 98-107 [facility] Comment on above: Performed By: #### T TYLER #### [facility] [address] [place] [address] Dr. Jessie Lomax CO2 [Moles/Vol] 26.3 mmol/L Normal 21.0-32.0 [facility] Comment on above: Performed By: #### T TYLER #### [facility] [address] [place] [address] Dr. Jessie Lomax Creatinine [Mass/Vol] 1.06 mg/dL Normal 0.70-1.30 [facility] Comment on above: Performed By: #### T TYLER #### [facility] [address] [place] [address] Dr. Jessie Lomax EGFR-AF BURUNDIAN >60 Normal >=60 [facility] Comment on above: Performed By: #### T TYLER #### [facility] [address] [place] [address] Dr. Jessie Lomax EGFR-NON AF BURUNDIAN >60 Normal >=60 [facility] Comment on above: Performed By: #### T TYLER #### [facility] [address] [place] [address] Dr. Jessie Lomax Globulin (S) [Mass/Vol] 3.5 g/dL Normal [facility] Comment on above: Performed By: #### T TYLER #### [facility] [address] [place] [address] Dr. Jessie Lomax Glucose [Mass/Vol] 221 mg/dL Critically high 74-106 [facility] Comment on above: Performed By: #### T TYLER #### [facility] [address] [place] [address] Dr. Jessie Lomax Potassium [Moles/Vol] 4.6 mmol/L Normal 3.5-5.1 [facility] Comment on above: Performed By: #### T TYLER #### [facility] [address] [place] [address] Dr. Jessie Lomax Protein [Mass/Vol] 7.4 g/dL Normal 6.4-8.2 [facility] Comment on above: Performed By: #### T TYLRE #### [facility] [address] [place] [address] Dr. Jessie Lomax Sodium [Moles/Vol] 138 mmol/L Normal 136-145 [facility] Comment on above: Performed By: #### T TYLER #### [facility] [address] [place] [address] Dr. Jessie Lomax Urea nitrogen [Mass/Vol] 23.0 mg/dL Critically high 7.0-18.0 [facility] Comment on above: Performed By: #### T TYLER #### [facility] [address] [place] [address] Dr. Jessie Lomax Urea nitrogen/Creatinine [Mass ratio] 20.2 mg/mg Normal [facility] Comment on above: Performed By: #### T TYLER #### [facility] [address] [place] [address] Dr. Jessie Lomax PROTIMEon 06-30-2022 INR Coag (PPP) [Relative time] 0.93 {INR} Normal [facility] Comment on above: Performed By: #### A CETON #### [facility] [address] [place] [address] Dr. Jessie Lomax INR GUIDELINES SEE BELOW Normal [facility] Comment on above: Result Comment: VANESSA RED INR: 2.0 - 3.0 CONDITIONS NOT LISTED BELOW 2.5 - 3.5 FOR PROSTHETIC HEART VALVE REPLACEMENT 2.5 - 3.5 RECURRENT THROMBOSIS Performed By: #### A CETON #### [facility] [address] [place] [address] Dr. Jessie Lomax PT Coag (PPP) [Time] 10.1 s Normal 9.0-11.6 [facility] Comment on above: Performed By: #### A CETON #### [facility] [address] [place] [address] Dr. Jessie Lomax PTTon 06-30-2022 aPTT Coag (Bld) [Time] 25.1 s Normal 22.3-36.2 [facility] Comment on above: Performed By: #### B [id number] #### [facility] [address] [place] [address] Dr. Jessie Lomax TROPONIN, HIGH SENSITIVITYon 06-30-2022 HSTROP 11.4 pg/mL Normal 4.0-76.1 [facility] Comment on above: Result Comment: CUT- OFF POINTS HAVE BEEN ESTABLISHED BASED ON THE FOURTH UNIVERSAL DEFINITIONS OF MYOCARDIAL INFARCTION. THE UPPER REFERENCE LIMIT (URL) OF TROPONIN, DEFINED THE 99TH PERCENTILE OF cTnI DISTRIBUTION IN A REFERENCE POPULATION, HAS BEEN CONFIRMED THE DECISION THRESHOLD FOR MO DIAGNOSIS. Performed By: #### T TYLER #### [facility] [address] [address] [address] Jessie Lomax XR CHEST 1 Von 06-30-2022 XR CHEST 1 V EXAMINATION: XR CHES T 1 V HISTORY: Shortness of breath COMPARISON: Chest x-ray 05/02/2022 TECHNIQUE: Portable chest FINDINGS: The lung parenchyma is free of consolidation or infiltrate. No pneumothorax or pleural effusion. The cardiac, mediastinal and hilar contours are normal. The visualized osseous structures exhibit no gross abnormality. IMPRESSION: No acute cardiopulmonary abnormality. Electronically authenticated by: SOLA SHELL Date: 2022-06-30 21:00 Normal [facility] BNPon 05-02-2022 Natriuretic peptide B (Bld) [Mass/Vol] 90.0 pg/mL Normal <=900.0 [facility] Comment on above: Performed By: #### B [id number] #### [facility] [address] [place] [address] Dr. Jessie Lomax CARDIAC JUSTINE ADMITon 022 CK [Catalytic activity/Vol] 84 U/L Normal 39-308 [facility] Comment on above: Performed By: #### B [id number] #### [facility] [address] [place] [address] Dr. Jessie Lomax CK.MB [Mass/Vol] 3.74 ng/mL Critically high <=3.60 [facility] Comment on above: Performed By: #### B [id number] #### [facility] [address] [place] [address] Dr. Jessie Lomax HSTROP 14.1 pg/mL Normal 4.0-76.1 [facility] Comment on above: Result Comment: CUT- OFF POINTS HAVE BEEN ESTABLISHED BASED ON THE FOURTH UNIVERSAL DEFINITIONS OF MYOCARDIAL INFARCTION. THE UPPER REFERENCE LIMIT (URL) OF TROPONIN, DEFINED THE 99TH PERCENTILE OF cTnI DISTRIBUTION IN A REFERENCE POPULATION, HAS BEEN CONFIRMED THE DECISION THRESHOLD FOR [place] DIAGNOSIS. Performed By: #### B [id number] #### [facility] [address] [place] [address] Dr. Jessie Lomax HERLINDA 55 ng/mL Normal 16-96 [facility] Comment on above: Performed By: #### B [id number] #### [facility] [address] [place] [address] Dr. Jessie Lomax CBC AUTO DIFFon 05-02-2022 BASO # 0.1 103/ul Normal 0.0-0.1 [facility] Comment on above: Performed By: #### C BC #### [facility] [address] [place] [address] Dr. Jessie Lomax Basophils/100 WBC (Bld) 0.5 % Normal 0.2-2.0 [facility] Comment on above: Performed By: #### C BC #### [facility] [address] [place] [address] Dr. Jessie Lomax EO # 0.0 103/ul Normal 0.0-0.7 [facility] Comment on above: Performed By: #### C BC #### [facility] [address] [place] [address] Dr. Jessie Lomax Eosinophils/100 WBC (Bld) 0.3 % Critically low 0.9-7.0 [facility] Comment on above: Performed By: #### C BC #### [facility] [address] [place] [address] Dr. Jessie Lomax Erythrocyte distribution width (RBC) [Ratio] 13.6 % Normal 11.0-15.0 [facility] Comment on above: Performed By: #### C BC #### [facility] [address] [place] [address] Dr. Jessie Lomax Hematocrit (Bld) [Volume fraction] 46.1 % Normal 42.0-54.0 [facility] Comment on above: Performed By: #### C BC #### [facility] [address] [place] [address] Dr. Jessie Lomax Hemoglobin (Bld) [Mass/Vol] 15.6 g/dL Normal 14.0-18.0 [facility] Comment on above: Performed By: #### C BC #### [facility] [address] [place] [address] Dr. Jessie Lomax IG # 0.07 10e3/ul Critically high 0.00-0.03 [facility] Comment on above: Performed By: #### C BC #### [facility] [address] [place] [address] Dr. Jessie Lomax IG % 0.6 % Critically high 0.0-0.5 [facility] Comment on above: Performed By: #### C BC #### [facility] [address] [place] [address] Dr. Jessie Lomax LYMPH # 2.0 103/ul Normal 1.2-3.8 [facility] Comment on above: Performed By: #### C BC #### [facility] [address] [place] [address] Dr. Jessie Lomax Lymphocytes/100 WBC (Bld) 16.0 % Critically low 20.5-60.0 [facility] Comment on above: Performed By: #### C BC #### [facility] [address] [place] [address] Dr. Jessie Lomax MANUAL DIFF REQ NO Normal [facility] Comment on above: Performed By: #### C BC #### [facility] [address] [place] [address] Dr. Jessie Lomax MCH (RBC) [Entitic mass] 31.7 pg Normal 25.9-34.0 [facility] Comment on above: Performed By: #### C BC #### [facility] [address] [place] [address] Dr. Jessie Lomax MCHC (RBC) [Mass/Vol] 33.8 g/dL Normal 29.9-35.2 [facility] Comment on above: Performed By: #### C BC #### [facility] [address] [place] [address] Dr. Jessie Lomax MCV (RBC) [Entitic vol] 93.7 fL Normal 80.0-94.0 [facility] Comment on above: Performed By: #### C BC #### [facility] [address] [place] [address] Dr. Jessie Lomax MONO # 0.8 103/ul Normal 0.3-0.8 [facility] Comment on above: Performed By: #### C BC #### [facility] [address] [address] [address] Jessie Lomax Monocytes/100 WBC (Bld) 6.2 % Normal 1.7-12.0 [facility] Comment on above: Performed By: #### C BC #### [facility] [address] [address] [address] Jessie Lomax NEUT # 9.5 103/ul Critically high 1.4-6.5 [facility] Comment on above: Performed By: #### C BC #### [facility] [address] [address] [address] Jessie Lomax Neutrophils/100 WBC (Bld) 76.4 % Critically high 43.0-75.0 [facility] Comment on above: Performed By: #### C BC #### [facility] [address] [place] [address] Dr. Jessie Lomax Platelet mean volume (Bld) [Entitic vol] 9.6 fL Normal 9.5-13.5 [facility] Comment on above: Performed By: #### C BC #### [facility] [address] [place] [address] Dr. Jessie Lomax PLT 338 103/ul Normal 150-450 [facility] Comment on above: Performed By: #### C BC #### [facility] [address] [place] [address] Dr. Jessie Lomax RBC 4.92 106/ul Normal 4.70-6.10 [facility] Comment on above: Performed By: #### C BC #### [facility] [address] [place] [address] Dr. Jessie Lomax WBC 12.4 103/ul Critically high 4.0-11.0 [facility] Comment on above: Performed By: #### C BC #### [facility] [address] [place] [address] Dr. Jessie Lomax [facility] SARS-CoV-2 (COVID-19) RNA YOLANDA+probe Ql (Unsp spec) Not detected Normal NOT DETECTED [facility] Comment on above: Result Comment: When diagnostic testing is negative, the possibility of a false negative should be considered in the context of a patient's recent exposures and the presence of clinical signs and symptoms consistent with SARS-CoV-2. This test is not yet approved or cleared by the [place] FDA. When there are no FDA-approved or cleared tests available, and other criteria are met, FDA can make tests available under an emergency access mechanism called an Emergency Use Authorization (EUA). The EUA for this test is supported by the [place] of Health and Human Service's declaration that circumstances exist to justify the emergency use of in vitro diagnostics for the detection and/or diagnosis of the virus that causes COVID-19. This EUA will remain in effect for the duration of the COVID-19 declaration justifying emergency of IVDs, unless it is terminated or revoked by the FDA (after which the test may no longer be used). Performed By: #### C MP #### [facility] [address] [place] [address] Dr. Jessie Lomax PROF 14(COMP METB)on 022 Albumin [Mass/Vol] 3.5 g/dL Normal 3.4-5.0 [facility] Comment on above: Performed By: #### B [id number] #### [facility] [address] [place] [address] Dr. Jessie Lomax Albumin/Globulin [Mass ratio] 1.0 {ratio} Normal [facility] Comment on above: Performed By: #### B [id number] #### [facility] [address] [place] [address] Dr. Jessie Lomax ALP [Catalytic activity/Vol] 104 U/L Normal 46-116 [facility] Comment on above: Performed By: #### B [id number] #### [facility] [address] [place] [address] Dr. Jessie Lomax ALT [Catalytic activity/Vol] 21 U/L Normal 16-63 [facility] Comment on above: Performed By: #### B [id number] #### [facility] [address] [place] [address] Dr. Jessie Lomax Anion gap [Moles/Vol] 11.7 mmol/L Normal [facility] Comment on above: Performed By: #### B [id number] #### [facility] [address] [place] [address] Dr. Jessie Lomax AST [Catalytic activity/Vol] U/L Critically low 15-37 [facility] Comment on above: Performed By: #### B [id number] #### [facility] [address] [place] [address] Dr. Jessie Lomax Bilirubin [Mass/Vol] 0.2 mg/dL Normal 0.2-1.0 [facility] Comment on above: Performed By: #### B [id number] #### [facility] [address] [place] [address] Dr. Jessie Lomax Calcium [Mass/Vol] 8.9 mg/dL Normal 8.5-10.1 [facility] Comment on above: Performed By: #### B [id number] #### [facility] [address] [place] [address] Dr. Jessie Lomax Chloride [Moles/Vol] 99 mmol/L Normal 98-107 [facility] Comment on above: Performed By: #### B [id number] #### [facility] [address] [place] [address] Dr. Jessie Lomax CO2 [Moles/Vol] 30.4 mmol/L Normal 21.0-32.0 [facility] Comment on above: Performed By: #### B [id number] #### [facility] [address] [place] [address] Dr. Jessie Lomax Creatinine [Mass/Vol] 1.29 mg/dL Normal 0.70-1.30 [facility] Comment on above: Performed By: #### B [id number] #### [facility] [address] [place] [address] Dr. Jessie Lomax EGFR-AF BURUNDIAN >60 Normal >=60 [facility] Comment on above: Performed By: #### B [id number] #### [facility] [address] [place] [address] Dr. Jessie Lomax EGFR-NON AF BUR[place]DIAN 56 mL/min/1.73m2 Critically low >=60 [facility] Comment on above: Performed By: #### B [id number] #### [facility] [address] [address] [address] Jessie Lomax Globulin (S) [Mass/Vol] 3.4 g/dL Normal [facility] Comment on above: Performed By: #### B [id number] #### [facility] [address] [address] [address] Jessie Lomax Glucose [Mass/Vol] 310 mg/dL Critically high 74-106 [facility] Comment on above: Performed By: #### B [id number] #### [facility] [address] [place] [address] Dr. Jessie Lomax Potassium [Moles/Vol] 4.1 mmol/L Normal 3.5-5.1 [facility] Comment on above: Performed By: #### B [id number] #### [facility] [address] [address] [address] Jessie Lomax Protein [Mass/Vol] 6.9 g/dL Normal 6.4-8.2 [facility] Comment on above: Performed By: #### B [id number] #### [facility] [address] [place] [address] Dr. Jessie Lomax Sodium [Moles/Vol] 137 mmol/L Normal 136-145 [facility] Comment on above: Performed By: #### B [id number] #### [facility] [address] [place] [address] Dr. Jessie Lomax Urea nitrogen [Mass/Vol] 16.0 mg/dL Normal 7.0-18.0 [facility] Comment on above: Performed By: #### B [id number] #### [facility] [address] [place] [address] Dr. Jessie Lomax Urea nitrogen/Creatinine [Mass ratio] 12.4 mg/mg Normal [facility] Comment on above: Performed By: #### B [id number] #### [facility] [address] [place] [address] Dr. Jessie Lomax PROTIMEon 05-02-2022 INR Coag (PPP) [Relative time] {INR} Normal [facility] Comment on above: Performed By: #### T TYLER #### [facility] [address] [place] [address] Dr. Jessie Lomax INR GUIDELINES SEE BELOW Normal [facility] Comment on above: Result Comment: VANESSA RED INR: 2.0 - 3.0 CONDITIONS NOT LISTED BELOW 2.5 - 3.5 FOR PROSTHETIC HEART VALVE REPLACEMENT 2.5 - 3.5 RECURRENT THROMBOSIS Performed By: #### T TYLER #### [facility] [address] [address] [address] Jessie Lomax PT Coag (PPP) [Time] 9.8 s Normal 9.0-11.6 [facility] Comment on above: Performed By: #### T TYLER #### [facility] [address] [place] [address] Dr. Jessie Lomax PTTon 05-02-2022 aPTT Coag (Bld) [Time] 23.0 s Normal 22.3-36.2 [facility] Comment on above: Performed By: #### T TYLER #### [facility] [address] [place] [address] Dr. Jessie Lomax XR CHEST 1 Von 05-02-2022 XR CHEST 1 V EXAM: XR CHEST 1 V HISTORY: Shortness of breath. COMPARISON: 03/18/2022 FINDINGS: The heart, mediastinum, pulmonary vasculature, and bony thorax demonstrate no discrete acute abnormality. There is no evidence of an infiltrate, pleural effusion or pneumothorax. There is moderate prominence of the lung markings. IMPRESSION: No evidence of an acute cardiopulmonary abnormality. Electronically authenticated by: GERARD ESPANA Date: 2022-05-02 08:55 Normal [facility] Covid-19 PCR (CVD[facility])on 04-17 SARS-CoV-2 (COVID-19) RNA YOLANDA+probe Ql (Unsp spec) Not detected Normal NOT DETECTED [facility] Comment on above: Result Comment: This test is not yet approved or cleared by the [place] FDA. When there are no FDA-approved or cleared tests available, and other criteria are met, FDA can make tests available under an emergency access mechanism called an Emergency Use Authorization (EUA). The EUA for this test is supported by the [place] of Health and Human Service's (HHS's) declaration that circumstances exist to justify the emergency use of in vitro diagnostics for the detection and/or diagnosis of the virus that causes COVID-19. This EUA will remain in effect (meaning this test can be used) for the duration of the COVID-19 declaration justifying emergency of IVDs, unless it is terminated or revoked by FDA (after which the test may no longer be used). When diagnostic testing is negative, the possibility of a false negative should be considered in the context of a patient's recent exposures and the presence of clinical signs and symptoms consistent with SARS-CoV-2. Performed By: #### A CETON #### [facility] [address] [place] [address] Dr. Jessie Lomax CBC AUTO DIFFon 03-19-2022 BASO # 0.0 103/ul Normal 0.0-0.1 [facility] Comment on above: Performed By: #### C BC #### [facility] [address] [place] [address] Dr. Jessie Lomax Basophils/100 WBC (Bld) 0.4 % Normal 0.2-2.0 [facility] Comment on above: Performed By: #### C BC #### [facility] [address] [place] [address] Dr. Jessie Lomax EO # 0.0 103/ul Normal 0.0-0.7 [facility] Comment on above: Performed By: #### C BC #### [facility] [address] [place] [address] Dr. Jessie Lomax Eosinophils/100 WBC (Bld) 0.1 % Critically low 0.9-7.0 [facility] Comment on above: Performed By: #### C BC #### [facility] [address] [place] [address] Dr. Jessie Lomax Erythrocyte distribution width (RBC) [Ratio] 13.6 % Normal 11.0-15.0 [facility] Comment on above: Performed By: #### C BC #### [facility] [address] [place] [address] Dr. Jessie Lomax Hematocrit (Bld) [Volume fraction] 47.4 % Normal 42.0-54.0 [facility] Comment on above: Performed By: #### C BC #### [facility] [address] [address] [address] Jessie Lomax Hemoglobin (Bld) [Mass/Vol] 16.0 g/dL Normal 14.0-18.0 [facility] Comment on above: Performed By: #### C BC #### [facility] [address] [place] [address] Dr. Jessie Lomax IG # 0.03 10e3/ul Normal 0.00-0.03 [facility] Comment on above: Performed By: #### C BC #### [facility] [address] [place] [address] Dr. Jessie Lomax IG % 0.3 % Normal 0.0-0.5 [facility] Comment on above: Performed By: #### C BC #### [facility] [address] [place] [address] Dr. Jessie Lomax LYMPH # 0.5 103/ul Critically low 1.2-3.8 [facility] Comment on above: Performed By: #### C BC #### [facility] [address] [place] [address] Dr. Jessie Lomax Lymphocytes/100 WBC (Bld) 5.4 % Critically low 20.5-60.0 [facility] Comment on above: Performed By: #### C BC #### [facility] [address] [place] [address] Dr. Jessie Lomax MANUAL DIFF REQ NO Normal [facility] Comment on above: Performed By: #### C BC #### [facility] [address] [place] [address] Dr. Jessie Lomax MCH (RBC) [Entitic mass] 31.7 pg Normal 25.9-34.0 [facility] Comment on above: Performed By: #### C BC #### [facility] [address] [address] [address] Jessie Lomax MCHC (RBC) [Mass/Vol] 33.8 g/dL Normal 29.9-35.2 [facility] Comment on above: Performed By: #### C BC #### [facility] [address] [address] [address] Jessie Lomax MCV (RBC) [Entitic vol] 93.9 fL Normal 80.0-94.0 [facility] Comment on above: Performed By: #### C BC #### [facility] [address] [id number] Dr. Jessie Lomax MONO # 0.2 103/ul Critically low 0.3-0.8 [facility] Comment on above: Performed By: #### C BC #### [facility] [address] [address] [address] Jessie Lomax Monocytes/100 WBC (Bld) 2.4 % Normal 1.7-12.0 [facility] Comment on above: Performed By: #### C BC #### [facility] [address] [address] [address] Jessie Lomax NEUT # 9.1 103/ul Critically high 1.4-6.5 [facility] Comment on above: Performed By: #### C BC #### [facility] [address] [address] [address] Jessie Lomax Neutrophils/100 WBC (Bld) 91.4 % Critically high 43.0-75.0 [facility] Comment on above: Performed By: #### C BC #### [facility] [id number] Jessie Lomax Platelet mean volume (Bld) [Entitic vol] 9.5 fL Normal 9.5-13.5 [facility] Comment on above: Performed By: #### C BC #### [facility] [address] [address] [address] Jessie Lomax PLT 303 103/ul Normal 150-450 [facility] Comment on above: Performed By: #### C BC #### [facility] [address] [place] [address] Dr. Jessie Lomax RBC 5.05 106/ul Normal 4.70-6.10 [facility] Comment on above: Performed By: #### C BC #### [facility] [address] [place] [address] Dr. Jessie Lomax WBC 10.0 103/ul Normal 4.0-11.0 [facility] Comment on above: Performed By: #### C BC #### [facility] [address] [place] [address] Dr. Jessie Lomax [facility]on SARS-CoV-2 (COVID-19) RNA YOLANDA+probe Ql (Unsp spec) Not detected Normal NOT DETECTED [facility] Comment on above: Result Comment: When diagnostic testing is negative, the possibility of a false negative should be considered in the context of a patient's recent exposures and the presence of clinical signs and symptoms consistent with SARS-CoV-2. This test is not yet approved or cleared by the [place] FDA. When there are no FDA-approved or cleared tests available, and other criteria are met, FDA can make tests available under an emergency access mechanism called an Emergency Use Authorization (EUA). The EUA for this test is supported by the [place] of Health and Human Service's declaration that circumstances exist to justify the emergency use of in vitro diagnostics for the detection and/or diagnosis of the virus that causes COVID-19. This EUA will remain in effect for the duration of the COVID-19 declaration justifying emergency of IVDs, unless it is terminated or revoked by the FDA (after which the test may no longer be used). Performed By: #### B [id number] #### [facility] [address] [place] [address] Dr. Jessie Lomax PROF 14(COMP METB)on 022 Albumin [Mass/Vol] 3.9 g/dL Normal 3.4-5.0 [facility] Comment on above: Performed By: #### C BC #### [facility] [address] [place] [address] Dr. Jessie Lomax Albumin/Globulin [Mass ratio] 1.1 {ratio} Normal [facility] Comment on above: Performed By: #### C BC #### [facility] [address] [address] [address] Jessie Lomax ALP [Catalytic activity/Vol] 81 U/L Normal 46-116 [facility] Comment on above: Performed By: #### C BC #### [facility] [address] [address] [address] Jessie Lomax ALT [Catalytic activity/Vol] 26 U/L Normal 16-63 [facility] Comment on above: Performed By: #### C BC #### [facility] [address] [place] [address] Dr. Jessie Lomxa Anion gap [Moles/Vol] 14.5 mmol/L Normal [facility] Comment on above: Performed By: #### C BC #### [facility] [address] [place] [address] Dr. Jessie Lomax AST [Catalytic activity/Vol] 7 U/L Critically low 15-37 [facility] Comment on above: Performed By: #### C BC #### [facility] [address] [place] [address] Dr. Jessie Lomax Bilirubin [Mass/Vol] 0.3 mg/dL Normal 0.2-1.0 [facility] Comment on above: Performed By: #### C BC #### [facility] [address] [place] [address] Dr. Jessie Lomax Calcium [Mass/Vol] 9.2 mg/dL Normal 8.5-10.1 [facility] Comment on above: Performed By: #### C BC #### [facility] [address] [place] [address] Dr. Jessie Lomax Chloride [Moles/Vol] 101 mmol/L Normal 98-107 [facility] Comment on above: Performed By: #### C BC #### [facility] [address] [place] [address] Dr. Jessie Lomax CO2 [Moles/Vol] 26.1 mmol/L Normal 21.0-32.0 [facility] Comment on above: Performed By: #### C BC #### [facility] [address] [address] [address] Jessie Lomax Creatinine [Mass/Vol] 1.50 mg/dL Critically high 0.70-1.30 [facility] Comment on above: Performed By: #### C BC #### [facility] [address] [address] [address] Jessie Lomax EGFR-AF BURUNDIAN 57 mL/min/1.73m2 Critically low >=60 [facility] Comment on above: Performed By: #### C BC #### [facility] [address] [address] [address] Jessie Lomax EGFR-NON AF BURUNDIAN 47 mL/min/1.73m2 Critically low >=60 [facility] Comment on above: Performed By: #### C BC #### [facility] [address] [place] [address] Dr. Jessie Lomax Globulin (S) [Mass/Vol] 3.4 g/dL Normal [facility] Comment on above: Performed By: #### C BC #### [facility] [address] [address] [address] Jessie Lomax Glucose [Mass/Vol] 264 mg/dL Critically high 74-106 [facility] Comment on above: Performed By: #### C BC #### [facility] [address] [address] [address] Jessie Lomax Potassium [Moles/Vol] 4.6 mmol/L Normal 3.5-5.1 [facility] Comment on above: Performed By: #### C BC #### [facility] [address] [address] [address] Jessie Lomax Protein [Mass/Vol] 7.3 g/dL Normal 6.4-8.2 [facility] Comment on above: Performed By: #### C BC #### [facility] [address] [address] [address] Jessie Lomax Sodium [Moles/Vol] 137 mmol/L Normal 136-145 [facility] Comment on above: Performed By: #### C BC #### [facility] [address] [place], [place] [address] Dr. Jessie Lomax Urea nitrogen [Mass/Vol] 20.0 mg/dL Critically high 7.0-18.0 [facility] Comment on above: Performed By: #### C BC #### [facility] [address] [place], [place] [address] Dr. Jessie Lomax Urea nitrogen/Creatinine [Mass ratio] 13.3 mg/mg Normal [facility] Comment on above: Performed By: #### C BC #### [facility] [address] [place], [place] [address] Dr. Jessie Lomax XR CHEST 1 Von 03-19-2022 XR CHEST 1 V EXAM: XR CHEST 1 V HISTORY: COUGH COMPARISON: Chest x-ray 05/25/2021 TECHNIQUE: Single frontal view chest x-ray FINDINGS: Chronic background COPD. Mild bilateral lower lung streaky opacities reflecting atelectasis or linear scar. Developing focal area of bandlike opacity of the left lower lung region. No large pleural effusions, pneumothorax, or acute bony abnormality. Cardiac size is unremarkable. IMPRESSION: Developing focal area of bandlike opacity of the left lower lung region. Consider CT chest evaluate for any postobstructive atelectasis or other lung infiltrate. Chronic medical COPD and mild bibasilar linear atelectasis/scar. Electronically authenticated by: GERARD WOLFF Date: 2022-03-19 00:11 Normal [facility] Cardiovascular Lab Reporton 12-29-2018 Cardiovascular Lab Report [facility]: [id number] Physician: Calli Devlin, Department of M.D. Medicine Service Date: 12/28/2018 Division of Birthdate: 1960 Cardiology Room #: Adult Cardiovascular Services [address] [place] [address] Cardiovascular Laboratory Report FINAL IMPRESSIONS: 1. Nonobstructive coronary arteries angiographically. 2. Moderately reduced global left ventricular systolic function with segmental wall motion abnormalities. 3. Mild mitral regurgitation. 4. Moderately elevated right-sided heart pressures and wedge pressure consistent with biventricular congestive heart failure. 5. Reduced cardiac output/cardiac index. RECOMMENDATIONS: 1. The patient will undergo a complete echocardiogram today to evaluate systolic and diastolic parameters as well as valve function. 2. Aggressive cardiovascular risk factor modification. 3. Optimization of medical management; we will add aspirin 81 mg daily, moderate intensity statin with Lipitor at 40 mg a day, lisinopril 5 mg daily for his coronary artery disease. 4. Will add Lasix 40 mg daily with a follow-up basic metabolic panel in a week. 5. Investigations for causes of nonischemic cardiomyopathy as an outpatient. 6. Follow up with me in the [facility] in the next 2-4 weeks. 7. Follow up with Dr. Cowart as scheduled. PROCEDURES: Ultrasound-guided access to the right common femoral vein and artery, right heart catheterization, bilateral selective coronary angiography, left heart catheterization, left ventriculography, limited femoral angiogram, placement of a 6-Urdu MynxGrip closure device. METHODS: After risks, benefits, and alternatives were explained, written informed consent was obtained. The patient was prepped and draped in usual sterile fashion over the right groin. Using 1% lidocaine solution, local infiltration anesthesia was achieved. Using a modified Seldinger technique and under ultrasound guidance access to the right common femoral vein and artery was obtained and 6-Urdu 11 cm sheath placed in each. Limited femoral angiography was performed. Right heart catheterization was performed using a Argueta catheter via the venous sheath. Pressures were measured in the right atrium, right ventricle, pulmonary artery, and pulmonary capillary wedge positions. Oxygen saturations were obtained and a cardiac output/cardiac index was calculated using the Nakul principle. The Argueta catheter was removed. Bilateral selective coronary angiography was subsequently performed using JL4 and JR4 catheters. An angled pigtail catheter was used for left heart catheterization and left ventriculography, using 36 mL at a constant rate of 12 mL/second. Aortic pullback pressure measurements were performed. At this point, and after reviewing the images and data, it was elected to conclude the procedure. All catheters were removed. A 6-Urdu MynxGrip closure device was deployed per protocol achieving optimal hemostasis. Overall, the patient tolerated the procedure well. There were no overt complications. He was to be transferred to the holding area in stable condition. FINDINGS: Hemodynamics: RA 14. RV 46/8, 70. PA 46/1, 37. PCWP 20. PPG 17. AO 128/80, (100). LV 128/12 (22). Cardiac output 5.11/cardiac index 2.1. AO sat 91%/PA sat 63%. TPG 17. LEFT VENTRICULOGRAPHY: Single plane ventriculography in the right anterior oblique projection shows an ejection fraction estimated to be 30-35% with hypokinesis of the mid to distal anterolateral wall, apex, and inferoapical sheldon. There is 1+ mitral regurgitation. CORONARY ARTERIES: Left main coronary artery. This arises from the left coronary cusp. It bifurcates into the left anterior descending and left circumflex coronary arteries, and is free of significant stenosis. Left anterior descending coronary artery. This shows caliber reduction with no focal significant stenosis. It tapers towards the distal portion and wraps around the apex. Left circumflex coronary artery. This shows mild plaque with luminal irregularities and no detectable high-grade stenoses. Right coronary artery. This is a large dominant vessel giving rise to the posterior descending and posterolateral branches. It shows mild plaque and luminal irregularities. Limited femoral angiography shows mild plaque and anatomy suitable for closure device. INDICATIONS: The patient is a 58-year-old man with multiple risk factors for atherosclerotic heart disease, who presented with worsening exertional shortness of breath after proportion to his pulmonary disease. Findings and management strategies are outlined above. Electronically Signed by: Calli Devlin M.D. 12/29/2018 04:29 P Calli Devlin M.D. Date Dict: 12/28/2018/09:28 Marek/Calli Devlin M.D. Date Trans: 12/29/2018 04:14 Marek/rosetta [id number] cc: Calli Devlin M.D. [address] [place] [address] JANET COWART [facility] Vital Signs Date Time Vital Sign Value Performing Clinician Facility 06-27-2023 11:00-0500 Body height 175.26 cm Janet Cowart Other [facility] 06-27-2023 11:00-0500 Body mass index (BMI) [Ratio] 37.8 kg/m2 Janet Cowart Other [facility] 06-27-2023 11:00-0500 Body weight 116.12 kg Janet Cowart Other [facility] 06-27-2023 11:00-0500 Diastolic blood pressure 88 mm[Hg] Janet Cowart Other [facility] 06-27-2023 11:00-0500 SaO2% (BldA) [Mass fraction] 92 % Janet Cowart Other [facility] 06-27-2023 11:00-0500 Systolic blood pressure 134 mm[Hg] Janet Cowart Other [facility] 03-03-2023 15:00-0400 Body height 175.26 cm Janet Cowart Other [facility] 03-03-2023 15:00-0400 Body mass index (BMI) [Ratio] 38.69 kg/m2 Janet Cowart Other [facility] 03-03-2023 15:00-0400 Body weight 118.84 kg Janet Cowart Other [facility] 03-03-2023 15:00-0400 Diastolic blood pressure 82 mm[Hg] Janet Cowart Other [facility] 03-03-2023 15:00-0400 Systolic blood pressure 157 mm[Hg] Janet Cowart Other [facility] 12-30-2022 14:30-0400 Body height 175.26 cm Janet Cowart Other [facility] 12-30-2022 14:30-0400 Body mass index (BMI) [Ratio] 39.57 kg/m2 Janet Cowart Other [facility] 12-30-2022 14:30-0400 Body weight 121.56 kg Janet Cowart Other [facility] 12-30-2022 14:30-0400 Diastolic blood pressure 85 mm[Hg] Janet Cowart Other [facility] 12-30-2022 14:30-0400 SaO2% (BldA) [Mass fraction] 95 % Janet Cowart Other [facility] 12-30-2022 14:30-0400 Systolic blood pressure 147 mm[Hg] Janet Cowart Other [facility] 09-02-2022 14:00-0500 Body height 175.26 cm Janet Cowart Other [facility] 09-02-2022 14:00-0500 Body mass index (BMI) [Ratio] 38.69 kg/m2 Janet Cowart Other [facility] Other 09-02-2022 14:00-0500 Body weight 118.84 kg Janet Cowart Other [facility] Other 09-02-2022 14:00-0500 Diastolic blood pressure 84 mm[Hg] Janet Cowart Other [facility] Other 09-02-2022 14:00-0500 Respiratory rate 60 /min Janet Cowart Other [facility] Other 09-02-2022 14:00-0500 SaO2% (BldA) [Mass fraction] 91 % Janet Sofya Other [facility] Other 09-02-2022 14:00-0500 Systolic blood pressure 142 mm[Hg] Janet Sofya Other [facility] Other Encounters Encounter Date Encounter Type Care Provider Facility Start: 08-26-2023 End: 08-26-2023 ambulatory Janet Sofya Other [facility] Other Start: 08-26-2023 Telephone encounter Janet Sofya [facility] Start: 08-04-2023 End: 08-04-2023 ambulatory Janet Sofya Other [facility] Start: 08-04-2023 Telephone encounter Janet Sofya [facility] Start: 08-03-2023 End: 08-03-2023 ambulatory Janet Sofya Other [facility] Start: 08-03-2023 Telephone encounter Janet Sofya [facility] Start: 07-19-2023 End: 07-19-2023 ambulatory Janet Sofya Other [facility] Other Start: 07-19-2023 Telephone encounter Janet Sofya [facility] Start: 07-12-2023 End: 07-12-2023 ambulatory Janet Sofya Other [facility] Other Start: 07-12-2023 Telephone encounter Janet Cowart [facility] Start: 07-07-2023 End: 07-07-2023 ambulatory Janet Sofya Other [facility] Start: 07-07-2023 Telephone encounter Janet Sofya [facility] Start: 07-04-2023 End: 07-04-2023 ambulatory Janet Cowart Other [facility] Other Start: 07-04-2023 Telephone encounter Janet Cowart [facility] Start: 06-30-2023 End: 06-30-2023 ambulatory Janet Cowart Other [facility] Other Start: 06-30-2023 Telephone encounter Janet Cowart [facility] Start: 06-27-2023 End: 06-27-2023 ambulatory Janet Cowart Other [facility] Other Start: 06-27-2023 Office outpatient vi sit 25 minutes Janet Cowart [facility] Start: 06-27-2023 Telephone encounter Janet Cowart [facility] Start: 06-24-2023 End: 06-24-2023 ambulatory Janet Cowart Other [facility] Other Start: 06-24-2023 Telephone encounter Janet Cowart [facility] Start: 06-13-2023 End: 06-13-2023 ambulatory Janet Cowart Other [facility] Other Start: 06-13-2023 Telephone encounter Janet Cowart [facility] Start: 06-03-2023 End: 06-03-2023 ambulatory Janet Cowart Other [facility] Other Start: 06-03-2023 Telephone encounter Janet Cowart [facility] Start: 05-31-2023 End: 05-31-2023 ambulatory Janet Cowart Other [facility] Other Start: 05-31-2023 Telephone encounter Janet Cowart [facility] Start: 05-09-2023 End: 05-09-2023 ambulatory Janet Cowart Other [facility] Other Start: 05-09-2023 Telephone encounter Janet Cowart [facility] Start: 04-25-2023 Telephone encounter Capo Meraz RN Pulmonary Medicine Comment on above: Closing Referral Start: 04-13-2023 End: 04-13-2023 ambulatory Janet Sofya Other [facility] Other Start: 04-13-2023 Telephone encounter Janet Cowart [facility] Start: 03-14-2023 End: 03-14-2023 ambulatory Janet Cowart Other [facility] Other Start: 03-14-2023 Telephone encounter Janet Cowart [facility] Start: 03-11-2023 End: 03-11-2023 ambulatory Janet Sofya Other [facility] Other Start: 03-11-2023 Telephone encounter Janet Cowart [facility] Start: 03-10-2023 Telephone encounter Capo Meraz RN Pulmonary Medicine Comment on above: Follow up on Lung Tr ansplant Referral Start: 03-08-2023 End: 03-08-2023 ambulatory Janet Cowart Other [facility] Other Start: 03-08-2023 Telephone encounter Janet Cowart [facility] Start: 03-03-2023 End: 03-03-2023 ambulatory Janet Cowart Other [facility] Other Start: 03-03-2023 Office outpatient vi sit 15 minutes Janet Cowart [facility] Start: 02-10-2023 End: 02-10-2023 ambulatory Janet Cowart Other [facility] Other Start: 02-10-2023 Telephone encounter Janet Cowart [facility] Start: 12-30-2022 End: 12-30-2022 ambulatory Janet Cowart Other [facility] Other Start: 12-30-2022 Office outpatient vi sit 25 minutes Janet Cowart [facility] Start: 12-30-2022 Telephone encounter Janet Cowart [facility] Start: 12-22-2022 End: 12-22-2022 ambulatory Janet Cowart Other [facility] Other Start: 12-22-2022 Telephone encounter Janet Cowart [facility] Start: 11-12-2022 End: 11-12-2022 ambulatory Janet Cowart Other [facility] Other Start: 11-12-2022 Telephone encounter Janet Cowart [facility] Start: 10-12-2022 End: 10-12-2022 ambulatory Rubén Pina Other [facility] Other Start: 10-12-2022 Telephone encounter Rubén Pina [facility] Start: 10-05-2022 End: 10-05-2022 ambulatory Janet Cowart Other [facility] Other Start: 10-05-2022 Telephone encounter Janet Cowart [facility] Start: 10-03-2022 End: 10-04-[address] JANET COWART Facility:[facility] Start: 09-27-2022 End: 09-27-2022 ambulatory Janet Cowart Other [facility] Other Start: 09-27-2022 Telephone encounter Janet Cowart [facility] Start: 09-15-2022 End: 09-15-2022 ambulatory Janet Cowart Other [facility] Other Start: 09-15-2022 Telephone encounter Janet Cowart [facility] Start: 09-02-2022 End: 09-02-2022 ambulatory Janet Cowart Other [facility] Other Start: 09-02-2022 Office outpatient vi sit 15 minutes Janet Cowart [facility] Start: 08-29-2022 End: 08-30-[address] EVERETTE MONTAGUE . Facility:[facility] Start: 08-20-2022 End: 08-20-2022 ambulatory Janet Cowart Other [facility] Other Start: 08-20-2022 Telephone encounter Janet Cowart [facility] Start: 08-17-2022 End: 08-17-2022 ambulatory SHAIKH Jose BANDA Facility:[facility] Start: 08-17-2022 ambulatory VANDA GONZALEZ . Facility :[facility] Start: 08-10-2022 End: 08-11-2022 ambulatory VANDA GONZALEZ . Facility:[facility] Start: 08-09-2022 End: 08-09-2022 ambulatory Janet Cowart Other [facility] Other Start: 08-09-2022 Telephone encounter Janet Cowart [facility] Start: 07-22-2022 End: 07-22-2022 ambulatory Janet Cowart Other [facility] Other Start: 07-22-2022 Telephone encounter Janet Cowart [facility] Start: 07-01-2022 End: 07-02-[address] JANET COWART Facility:[facility] Start: 05-02-2022 End: 05-02-[address] JANET COWART Facility:[facility] Start: 04-26-2022 End: 04-26-[address] JANET COWART Facility:[facility] Start: 03-19-2022 End: 03-19-[address] JANET COWART Facility:[facility] Start: 03-05-[address] JANET COWART Facil ity:[facility] Start: 01-08-[address] JANET COWART Facil ity:[facility] Start: 11-11-2021 Telephone encounter Isabella Nogueira MD Work Phone: Pulmonary Medicine Comment on above: Patient Update Start: 11-04-2021 Telephone encounter Molly trinidad APRN.DIRECTOR PRODUCT Work Phone: Pulmonary Medicine Comment on above: Missed appointments Start: 11-03-2021 Orders Only Molly aguirre [employer]INE FARMER.DIRECTOR PRODUCT Work Phone: Pulmonary Medicine Comment on above: Chronic obstructive pulmonary disease, unspecified COPD type (HCC) (Primary Dx); 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) Start: 12-28-2018 End: 12-29-2018 Patient encounter procedure CALLI Marek CHRISTOSBRODIEMAGALI Facility:[facility] Plan of Treatment Date Care Activity Detail Author Start: 03-18-2023 Influenza vaccination C [facility] Start: 03-24-2022 Hepatitis B surface antibody level LDL CHOLESTEROL [facility] Start: 03-18-2022 Influenza vaccination INFLUENZ A (Season Ended) [facility] Start: 11-04-2021 End: 01-04-2022 HEPATITIS A ANTIBODY, IGG HEPATITIS A ANTIBODY, IGG Lab Routine Chronic obstructive pulmonary disease, unspecified COPD type (HCC) Lung transplant candidate Expected: 11/04/2021, Expires: 01/04/2022 [facility] Work Phone: Comment on above: Expected: 11/04/2021 , Expires: 01/04/2022 Start: 11-03-2021 End: 11-03-2022 ARTERIAL BLOOD GASES ARTERIAL BLOOD GASES Lab Routine [id number] deficiency (HCC) Expected: 11/03/2021, Expires: 11/03/2022 [facility] Work Phone: Comment on above: Expected: 11/03/2021 , Expires: 11/03/2022 Start: 11-04-2014 PROSTATE CANCER SCREENING DISCUSSION PROSTATE CANCER SCREENING DISCUSSION [facility] Start: 11-04-2009 SHINGRIX VACCINE (1 of 2) SHINGRIX VACCINE (1 of 2) [facility] Start: 11-04-2004 COLOGUARD (FIT-DNA) COLOGUARD (FIT-D NA) [facility] Start: 11-04-2004 Colonoscopy COLONOSCOPY [facility] Start: 11-04-2004 COLORECTAL CANCER SCREENING COLORECTAL CANCER SCREENING [facility] Start: 11-04-[address] [facility] Start: 11-04-2004 FECAL OCCULT BLOOD FECAL OCCULT BLOO D [facility] Start: 11-04-2004 [facility] Start: 11-04-1989 Zoledronic acid therapy ALPHA- 1 ANTITRYPSIN DEFICIENCY SCREENING [facility] Start: 11-04-1978 ADULT PREVNAR-13 ADULT PREVNAR-13 Cl khoi [facility] Start: 11-04-1978 HEPATITIS A (1 of 2 - Risk 2-dose series) HEPATITIS A (1 of 2 - Risk 2-dose series) [facility] Start: 11-04-1978 Hepatitis A Vaccine (1 of 2 - Risk 2-dose series) Hepatitis A Vaccine (1 of 2 - Risk 2-dose series) [facility] Start: 11-04-1978 SHINGRIX VACCINE (1 of 2) SHINGRIX VACCINE (1 of 2) [facility] Start: 11-04-1978 TWO PNEUMOVAX 5 YEAR S APART PRIOR TO AGE 65 (#1) TWO PNEUMOVAX 5 YEARS APART PRIOR TO AGE 65 (#1) [facility] Start: 11-04-1978 Urine microalbumin profile [facility] Start: 11-04-1977 ANNUAL PCP TEAM MANAGER MEAT SARAH DISEASE VISIT ANNUAL PCP TEAM CHRONIC DISEASE VISIT [facility] Start: 11-04-1977 BP CONTROLLED (<130/80) BP CONTROLLE D (<130/80) [facility] Start: 11-04-1969 3 comp foot exam completed DIABETIC FOOT EXAM [facility] Start: 11-04-1969 Hepatitis B screening URINE ALBUMIN:CREATININE RATIO [facility] Start: 11-04-1969 Hepatitis C antibody , confirmatory test DILATED RETINAL EXAM [facility] Start: 11-04-1965 PNEUMOCOCCAL (1 - PCV) PNEUMOCOCCAL (1 - PCV) [facility] Start: 11-04-1965 Pneumococcal vaccination Pneum ococcal Vaccine (1 - PCV) [facility] Start: 11-04-1964 COVID-19 VACCINE (1) COVID-19 VACCIN E (1) [facility] Start: 11-04-1964 Hemoglobin A1c/Hemoglobin.total in Blood HBA1C [facility] Start: 11-04-1960 HEPATITIS A (1 of 2 - Risk 2-dose series) HEPATITIS A (1 of 2 - Risk 2-dose series) [facility] Start: 05-06-1960 COVID-19 VACCINE (#1) COVID-19 VACCI NE (#1) [facility] Immunizations Immunization Date Immunization Notes Care Provider Fa geetha 05-16-2020 influenza virus vacc ine, unspecified formulation Capo Meraz RN [facility] Payers Date Payer Category Payer Unknown [employer] PPO [id number] 2018-Present [phone] [id number] [place] [address] PPO [id number] 2018 Unknown TEREZA SCHWAB PPO [id number] 2018-Present [phone] [address] [place] [address] PPO [id number] 1959 Unknown [id number] 2.16.840.1.491840.3.579.2. 647 1959 Unknown [id number] 2.16.840.1.766326.3.579.2. 593 1959 Unknown [id number] 2.16.840.1.633525.3.579.2. 593 1959 Unknown [id number] 2.16.840.1.266574.3.579.2. 593 1959 Unknown [id number] 2.16.840.1.523740.3.579.2. 593 1959 Unknown [id number] 2.16.840.1.125379.3.579.2. 593 1959 Unknown [id number] 2.16.840.1.780178.3.579.2. 593 1959 Unknown [id number] 2.16.840.1.620349.3.579.2. 593 1959 Unknown [id number] 2.16.840.1.010397.3.579.2. 593 1959 Unknown [id number] 2.16.840.1.063484.3.579.2. 593 1959 Unknown [id number] 2.16.840.1.928441.3.579.2. 593 1959 Unknown [id number] 2.16.840.1.109068.3.579.2. 593 1959 Private Health Insurance [facility] [id number] [id number] 1959 Self-pay [id number] 1959 Self-pay 1959 Unknown [id number] 1959 Unknown [id number] Medicare [id number] [id number] Medicare [id number] [id number] Unknown [id number] Social History Date Type Detail Facility Tobacco smoking stat [facility] Tobacco smoking consumption unknown [facility] Work Phone: Start: 1960 Sex Assigned At Not on file [facility] Start: 10-24-2021 End: 11-03-2021 Exposure to SARS-CoV-2 (event) Not sure [facility] Work Phone: Start: 03-18-2021 Sex Assigned At [facility] Other Start: 03-18-2021 History of Social function [facility] National Score (1-10 0), lower number is lower risk Not on file [facility] Start: 03-17-2021 Gender identity Identifies as male gender (finding) [facility] Start: 03-17-2021 Sexual orientation Heterosexual (finding) [facility] Clinical Notes 11-04-2021 to 08-26-2023 Note Date & Type Note Facility 08-26-2023 Evaluation note Encounter Date Diagnosis Assessment Notes Aug, Anxiety, generalized (ICD-10 - F41.1) [facility] Other 01-18-2024 Evaluation note* Encounter Date Diagnosis Assessment Notes Treatment Notes Treatment Clinical Notes Jul, Acute cervical radiculopathy (ICD-10 - M54.12) [facility] Other 12-26-2023 Evaluation note* Encounter Date Diagnosis Assessment Notes Treatment Notes Treatment Clinical Notes Jun, Acute cervical radiculopathy (ICD-10 - M54.12) [facility] Other 12-11-2023 Evaluation note* Encounter Date Diagnosis Assessment Notes Treatment Notes Treatment Clinical Notes Jun, Chronic obstructive pulmonary disease (ICD-10 - J44.9) Chronic problem, improved. Keep appt w Dr. Gonzalez. Jun, Type 2 diabetes mellitus with hyperglycemia, without long-term current use of insulin (ICD-10 - E11.65) Chronic problem, recheck A1C in near future. Get yearly eye exams. Jun, Anxiety, generalized (ICD-10 - F41.1) Chronic problem that is stable presently. [facility] Other 12-08-2023 Evaluation note* Encounter Date Diagnosis Assessment Notes Treatment Notes Treatment Clinical Notes Jun, Anxiety, generalized (ICD-10 - F41.1) [facility] Other 11-17-2023 Evaluation note* Encounter Date Diagnosis Assessment Notes Treatment Notes Treatment Clinical Notes May, Acute cervical radiculopathy (ICD-10 - M54.12) [facility] Other 11-14-2023 Evaluation note* Encounter Date Diagnosis Assessment Notes Treatment Notes Treatment Clinical Notes May, Anxiety, generalized (ICD-10 - F41.1) May, Acute cervical radiculopathy (ICD-10 - M54.12) [facility] Other 10-23-2023 Evaluation note* Encounter Date Diagnosis Assessment Notes Treatment Notes Treatment Clinical Notes Apr, Acute cervical radiculopathy (ICD-10 - M54.12) [facility] Other 10-09-2023 Miscellaneous Notes* Telephone Encounter - Capo Meraz RN - 04/25/2023 11:47 AM EDT Attempted to reach emergency contact, Renetta Hylton, of patient as we have not been able to contact him regarding his lung transplant referral. I was unable to speak with her but left a message withreason I was calling. Explained we have tried to contact patient multiple times and at this time wewill close referral. Provided lung transplant office phone number in case they had any questions. Capo Meraz RN, BSN Pre-Lung Numerical Analysis Group Manager documented in [facility] encounterOur [facility] note* Encounter Date Diagnosis Assessment Notes Treatment Notes Treatment Clinical Notes Mar, Acute cervical radiculopathy (ICD-10 - M54.12) [facility] [employer] Other 08-28-2023 Evaluation note* Encounter Date Diagnosis Assessment Notes Treatment Notes Treatment Clinical Notes Feb, Acute cervical radiculopathy (ICD-10 - M54.12) [facility] [employer] Other 08-24-2023 Miscellaneous Notes* Telephone Encounter - Capo Meraz RN - 03/10/2023 12:04 PM EDT Attempted to reach patient regarding lung transplant referral. He was last seen in 03/2021 and has not been back since. We have not heard from the patient since 10/2021. I was unable to speak with him and unable to leave a message due to his voicemail being full. Capo Meraz RN, BSN Pre-Lung Numerical Analysis Group Manager documented in this encounterOur [facility]08-[facility] Evaluation note* Encounter Date Diagnosis Assessment Notes Treatment Notes Treatment Clinical Notes Feb, Type 2 diabetes mellitus with hyperglycemia, without long-term current use of insulin (ICD-10 - E11.65) [facility] [employer] Other 08-17-2023 Evaluation note* Encounter Date Diagnosis Assessment Notes Treatment Notes Treatment Clinical Notes Feb, Type 2 diabetes mellitus with hyperglycemia, without long-term current use of insulin (ICD-10 - E11.65) Has diabetes and would benefit from the weight loss aspects of Mounjaro. He is not tolerating adipex well re: elevated bp and no weight loss. Feb, Body mass index [BMI] 39.0-39.9, adult (ICD-10 - Z68.39) d/c adipex. Will sent mounjaro as listed above. needs to medically lose weight to improved his severe COPD> [facility] Other 08-17-2023 Evaluation note* Encounter Date Diagnosis Assessment Notes Treatment Notes Treatment Clinical Notes Feb, Type 2 diabetes mellitus with hyperglycemia, without long-term current use of insulin (ICD-10 - E11.65) Has diabetes and would benefit from the weight loss aspects of Mounjaro. He is not tolerating adipex well re: elevated bp and no weight loss. Feb, Body mass index [BMI] 39.0-39.9, adult (ICD-10 - Z68.39) d/c adipex. Will sent mounjaro as listed above. needs to medically lose weight to improved his severe COPD> Feb, Morbid (severe) obesity due to excess calories (ICD-10 - E66.01) Ricardo needs to lose weight to improve his lung function [facility] Other 07-27-2023 Evaluation note* Encounter Date Diagnosis Assessment Notes Treatment Notes Treatment Clinical Notes Jan, Acute cervical radiculopathy (ICD-10 - M54.12) [facility] Other 06-15-2023 Evaluation note* Encounter Date Diagnosis Assessment Notes Treatment Notes Treatment Clinical Notes Dec, Anxiety, generalized (ICD-10 - F41.1) Added alprazolam for anxiety symptoms. Also states needs refill on venlafaxine. Dec, Chronic obstructive pulmonary disease (ICD-10 - J44.9) Called Dr. Gonzalez. He states Ricardo needs to heal from recent hospitalization before repeat PFTs and the many requirements before the referral for the zephyr procedure can be started through [facility]. Keep appt in January w his office. [facility] Other 04-28-2023 Evaluation note* Encounter Date Diagnosis Assessment Notes Treatment Notes Treatment Clinical Notes Oct, Acute cervical radiculopathy (ICD-10 - M54.12) [facility] Other 02-16-2023 Evaluation note* Encounter Date Diagnosis Assessment Notes Treatment Notes Treatment Clinical Notes Aug, Chronic obstructive pulmonary disease (ICD-10 - J44.9) Continue present meds including lengthy steroid taper. Continue to followup w Dr. Gonzalez. He has not heard anything lately from [facility] transplant dept. [facility] Other 04-27-2022 Miscellaneous Notes* Telephone Encounter - Maximino Callaway Pss - 11/11/2021 8:22 AM EDT Spoke w/ pt to see if I could r/s his recently missed appts from 11/04 and pt advised that he recently lost his insurance. Pt stated his just started a new job, has been there about one month, so in about 2 months he will have commercial insurance. In the meantime, he said they are looking at plans on the Affordable Care Act site. Pt is still interested in moving forward, once he can get all of that sorted. Advised him I would have a financial counselor contact him to discuss options. Maximino Callaway Transplant documented in this encounterOur [facility]04-[facility]-2022 Miscellaneous Notes* Telephone Encounter - Molly Gan APRN.CNP - 11/04/2021 2:27 PM EDT Patient not in attendance for lung transplant appts on 11/04. Attempted to contact patient to reschedule. VM left requesting call back. 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 Surgical History heart catheterization, no stent s Hospitalization History SEE ABOVE [facility] Other Summary Purpose Family History No Family History Records FoundNo Family History Records FoundNo Family History Records Found Advance Directives No Advanced Directives Records FoundNo Advanced Directives Records FoundNo Advanced Directives Records Found Additional Source Comments (unrecognized sect ion and content) No Status Records FoundNo Status Records FoundNo Status Records Found INFORMATION SOURCE (unrecogn ized section and content) DATE CREATED AUTHOR 03/17/2019 [facility] DATE CREATED AUTHOR AUTHOR'S ORGANIZ ATION 10/06/2022 [facility] DATE CREATED AUTHOR AUTHOR'S ORGANIZ ATION 04/25/2023 [facility] Source Comments (unrecognize d section and content) In the event this informatio n is protected by the Federal Confidentiality of Alcohol and Drug Abuse Patient Records regulations: The Federal rules restrict any use of the information to criminally investigate or prosecute any alcohol or drug abuse patient.[facility] HospitalIn the event this information is protected by the Federal Confidentiality of Alcohol and Drug Abuse Patient Records regulations: The Federal rules restrict any use of the information to criminally investigate or prosecute any alcohol or drug abuse patient.[facility] HospitalIn the event this information is protected by the Federal Confidentiality of Alcohol and Drug Abuse Patient Records regulations: The Federal rules restrict any use of the information to criminally investigate or prosecute any alcohol or drug abuse patient.[facility] HospitalIn the event this information is protected by the Federal Confidentiality of Alcohol and Drug Abuse Patient Records regulations: The Federal rules restrict any use of the information to criminally investigate or prosecute any alcohol or drug abuse patient.[facility] HospitalIn the event this information is protected by the Federal Confidentiality of Alcohol and Drug Abuse Patient Records regulations: The Federal rules restrict any use of the information to criminally investigate or prosecute any alcohol or drug abuse patient.[facility] HospitalIn the event this information is protected by the Federal Confidentiality of Alcohol and Drug Abuse Patient Records regulations: The Federal rules restrict any use of the information to criminally investigate or prosecute any alcohol or drug abuse patient.[facility] Care Teams (unrecognized sec tion and content) Cast Shell Grinder Relationship Specialty Start Date End Date Janet Cowart MD [address] [place] [id number] PCP - General Family Practice 03/12/20 Vanda Gonzalez DO Referring Pulmonary and Critical Care Medicine 03/12/20 [employer] Shell Grinder Relationship Specialty Start Date End Date Janet Cowart MD [address] [place] [place] [address] PCP - General Family Practice 03/12/20 Vanda Gonzalez DO Referring Pulmonary and Critical Care Medicine 03/12/20 Cast Shell Grinder Relationship Specialty Start Date End Date Janet Cowart MD [address] [place] [place] [address] PCP - General Family Practice 03/12/20 Vanda Gonzalez DO Referring Pulmonary and Critical Care Medicine 03/12/20 Cast Shell Grinder Relationship Specialty Start Date End Date Janet Cowart MD [address] [place] [place] [place] [address] PCP - General Family Medicine 03/12/20 Vanda Gonzalez DO [address] [place] [facility] [place] [address] Referring Pulmonary and Critical Care Medicine 03/12/20 Reason for Visit (unrecogniz ed section and content) refill Reason Comments Missed appointments Reason Comments Patient Update Reason Comments Follow up on Lung Transplant Referral Reason Comments Closing Referral FOR RECORDS PERTAINING TO PATIENTS WHO ARE OR HAVE BEEN ENROLLED IN A CHEMICAL DEPENDENCY/SUBSTANCEABUSE PROGRAM, SOME INFORMATION MAY BE OMITTED. This clinical summary was aggregated from multiple sources. Caution should be exercised in using it in the provision of clinical care. This summary normalizes information from multiple sources, and as a consequence, information in this document may materially change the coding, format and clinical context of patient data. In addition, data may be omitted in some cases. CLINICAL DECISIONS SHOULD BE BASED ON THE PRIMARY CLINICAL RECORDS. [facility]. provides no warranty or guarantee of the accuracy or completeness of information in this document.
[2023-10-16 16:30] VITALS: O2SAT 96
--- NOTE | 2023-10-16 16:31 | ED_ITS ---
HPI - SOB/Dyspnea General Chief Complaint: Shortness of Breath/Dyspnea Stated Complaint: lung infection symptoms and shortness of breath Time Seen by Provider: 10/16/23 16:14 Source: patient Mode of arrival: Wheelchair History of Present Illness HPI Narrative: Patient is a 62-year-old male with a history of significant COPD who is oxygen dependent 4 L by nasal cannula chronically, presents to the ER for increasing shortness of breath over the last several days. He denies chest pain, fevers, vomiting. He denies peripheral edema. He wears CPAP at night but wears his oxygen by nasal cannula throughout the day. 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 He has been coughing thick green sputum. Last breathing treatment was last night. He reports minimal improvement with the breathing treatment. Related Data Home Medications ?Medication ?Instructions ?Recorded ?Confirmed aripiprazole 10 mg tablet 10 mg PO DAILY 12/20/22 06/20/23 fluticasone fur. 100 mcg-umeclid 1 inh inhalation Q24H 12/20/22 06/20/23 62.5 mcg-vilant 25 mcg inhalat.powder (Trelegy Ellipta) glipizide 10 mg tablet 10 mg PO BID 12/20/22 06/20/23 hydrocodone 5 mg-acetaminophen 325 1 tab PO Q6H PRN pain 12/20/22 06/20/23 mg tablet lisinopril 5 mg tablet 5 mg PO DAILY 12/20/22 06/21/23 metoprolol succinate 25 mg 25 mg PO DAILY 12/20/22 06/20/23 tablet,extended release 24 hr omeprazole 20 mg capsule,delayed 20 mg PO DAILY 12/20/22 06/20/23 release venlafaxine 75 mg capsule,extended 150 mg PO DAILY 12/20/22 06/20/23 release 24 hr alprazolam 0.5 mg tablet 0.5 mg PO BID PRN anxiety 06/20/23 06/20/23 empagliflozin 25 mg tablet 25 mg PO DAILY 06/20/23 06/20/23 (Jardiance) latanoprost 0.005 % eye drops 1 drp ophthalmic (eye) DAILY 06/20/23 06/20/23 semaglutide 0.25 mg or 0.5 mg (2 0.5 mg subcut .weekly 06/20/23 06/20/23 mg/3 mL) subcutaneous pen injector (Ozempic) venlafaxine 150 mg 150 mg PO BID 06/20/23 06/20/23 capsule,extended release 24 hr Previous Rx's ?Medication ?Instructions ?Recorded albuterol sulfate 90 mcg/actuation 2 puff inhalation Q4H PRN 06/22/23 aerosol inhaler shortness of breath or wheezing #8.5 grams azithromycin 500 mg tablet 500 mg PO DAILY 5 days #5 tabs 06/22/23 prednisone 10 mg tablet See Rx Instructions .Route 06/22/23 .COMPLEX #42 tabs theophylline 400 mg 400 mg PO Q12H 30 days #60 tabs 06/22/23 tablet,extended release 24 hr azithromycin 250 mg tablet See Rx Instructions PO .COMPLEX #6 10/16/23 (Zithromax Z-Parveen) tabs methylprednisolone 4 mg tablets in See Rx Instructions .Route 10/16/23 a dose pack (Medrol (Parveen)) .COMPLEX #21 ea Allergies Allergy/AdvReac Type Severity Reaction Status Date / Time metformin Allergy Intermediate Verified 06/20/23 11:16 Review of Systems ROS Constitutional Denies: fever or chills Ears, nose, mouth, and throat Denies: throat pain or nasal congestion Cardiovascular Denies: chest pain Respiratory Reports: shortness of breath, cough and wheezing Gastrointestinal Denies: nausea or vomiting Musculoskeletal Denies: back pain Integumentary/Breast Denies: rash Neurological Denies: headache Endocrine Denies: excessive urination Hematologic/Lymphatic Denies: easy bruising or easy bleeding PFSH PFS Medical History (Updated 10/16/23 @ 18:06 by JOSE Lunsford) Heartburn ?R12 - Heartburn (ICD-10) Depression ?F32.A - Depression, unspecified (ICD-10) Hypertension ?I10 - Essential (primary) hypertension (ICD-10) Type 2 diabetes mellitus ?E11.9 - Type 2 diabetes mellitus without complications (ICD-10) Family History (Updated 06/20/23 @ 14:19 by Arelis Moreno LPN) Mother Family history of CHF (congestive heart failure) Family history of diabetes mellitus Family history of hypertension Grandmother Family history of CHF (congestive heart failure) Family history of diabetes mellitus Father Family history of COPD (chronic obstructive pulmonary disease) Family history of cancer Social History Smoking status: Former smoker Gender Identity: male Exam Narrative Exam Narrative: Gen.: Awake, alert, in no distress Head: Normocephalic, atraumatic ENT: Moist mucous membranes Respiratory: No respiratory distress, Diminished lung sounds globally, oxygen by nasal cannula; Tachypnea noted with difficulty finishing complete sentences Cardio: Regular rate and rhythm Extremities: Moves extremities equally, no pedal edema Psych: Normal mood and affect Neuro: No focal neuro deficit Skin: Warm, dry, intact Constitutional Vital Signs, click to edit/add: Last Vital Signs Temp 98.0 F 10/16/23 16:12 Pulse 88 10/16/23 18:06 Resp 20 10/16/23 18:06 BP 172/93 H 10/16/23 16:12 Pulse Ox 96 10/16/23 16:30 O2 Del Method Nasal Cannula 10/16/23 16:30 O2 Flow Rate 4 10/16/23 16:30 Course Vital Signs Vital signs: Vital Signs Temperature 98.0 F 10/16/23 16:12 Pulse Rate 100 H 10/16/23 16:12 Respiratory Rate 20 10/16/23 16:12 Blood Pressure 172/93 H 10/16/23 16:12 Pulse Oximetry 94 L 10/16/23 16:12 Oxygen Delivery Method Nasal Cannula 10/16/23 16:12 Oxygen Delivery Flow Rate 4 10/16/23 16:12 Temperature 98.0 F 10/16/23 16:12 Pulse Rate 88 10/16/23 18:06 Respiratory Rate 20 10/16/23 18:06 Blood Pressure 172/93 H 10/16/23 16:12 Pulse Oximetry 96 10/16/23 16:30 Oxygen Delivery Method Nasal Cannula 10/16/23 16:30 Oxygen Delivery Flow Rate 4 10/16/23 16:30 MDM - SOB/Dyspnea MDM Narrative Medical decision making narrative: Chest x-ray is unremarkable, lab studies are stable although the patient is found to have COVID. He was offered admission if he does not feel he can be discharged. He states he feels well enough to go home, he has breathing treatments at home, he was given a Z-Parveen for COPD exacerbation and steroid taper as well. Continue breathing treatments every 4 hours. Follow-up with PCP and return to the ER if symptoms change or worsen. Medical Records Attestation: I reviewed the patient's medical records. Lab Data Attestation: I reviewed the patient's lab results. Labs: Lab Results 10/16/23 10/16/23 10/16/23 Range/Units 16:26 16:41 17:09 WBC 10.9 (4.0-11.0) 10^3/uL RBC 5.29 (4.70-6.10) 10^6/uL Hgb 16.3 (14.0-18.0) g/dL Hct 49.9 (42.0-54.0) % MCV 94.3 H (80.0-94.0) fL MCH 30.8 (25.9-34.0) pg MCHC 32.7 (29.9-35.2) g/dL RDW 13.8 (11.0-15.0) % Plt Count 359 (150-450) 10^3/uL MPV 9.4 L (9.5-13.5) fL Neut % (Auto) 76.2 H (43.0-75.0) % Lymph % (Auto) 13.6 L (20.5-60.0) % Weld % (Auto) 7.4 (1.7-12.0) % Eos % (Auto) 1.5 (0.9-7.0) % Baso % (Auto) 0.9 (0.2-2.0) % Neut # (Auto) 8.3 H (1.4-6.5) 10^3/uL Lymph # (Auto) 1.5 (1.2-3.8) 10^3/uL Weld # (Auto) 0.8 (0.3-0.8) 10^3/uL Eos # (Auto) 0.2 (0.0-0.7) 10^3/uL Baso # (Auto) 0.1 (0.0-0.1) 10^3/uL Abs Immat Gran (auto) 0.04 H (0.00-0.03) 10^3/uL Imm/Tot Granulo (auto) 0.4 (0.0-0.5) % PT 9.5 (9.0-11.6) sec INR <0.93 VBG pH 7.390 (7.330-7.430) VBG pCO2 46.7 (40.0-52.0) mmHg Sodium 143 (136-145) mmol/L Potassium 3.8 (3.5-5.1) mmol/L Chloride 103 (98-107) mmol/L Carbon Dioxide 29.3 (21.0-32.0) mmol/L Anion Gap 14.5 BUN 16.0 (7.0-18.0) mg/dL Creatinine 1.19 (0.70-1.30) mg/dL Est GFR ( Amer) >60 (>=60) Est GFR (Non-Af Amer) >60 (>=60) BUN/Creatinine Ratio 13.4 Glucose 146 H (74-106) mg/dL Lactate 2.0 (0.4-2.0) mmol/L Calcium 8.8 (8.5-10.1) mg/dL Total Bilirubin 0.3 (0.2-1.0) mg/dL AST 11 L (15-37) U/L ALT 20 (16-63) U/L Alkaline Phosphatase 117 H (46-116) U/L Troponin I High Sens 7.4 (4.0-76.1) pg/mL NT-Pro-B Natriuret Pep 82.0 (<=900.0) pg/mL Total Protein 7.2 (6.4-8.2) g/dL Albumin 3.6 (3.4-5.0) g/dL Globulin 3.6 g/dL Albumin/Globulin Ratio 1.0 Adenovirus (PCR) Not detected (NOT DETECTE) C. pneumoniae DNA (PCR) Not detected (NOT DETECTE) Coronavirus Type OC43 Not detected (NOT DETECTE) Coronavirus Type HKU1 Not detected (NOT DETECTE) Coronavirus Type 229E Not detected (NOT DETECTE) Coronavirus Type NL63 Not detected (NOT DETECTE) Human Metapneumovir PCR Not detected (NOT DETECTE) M. pneumoniae (PCR) Not detected (NOT DETECTE) Parainfluenza PCR Not detected (NOT DETECTE) Parainfluenza 2 (PCR) Not detected (NOT DETECTE) Parainfluenza 3 (PCR) Not detected (NOT DETECTE) Parainfluenza 4 (PCR) Not detected (NOT DETECTE) RSV (RT-PCR) Not detected (NOT DETECTE) Entero/Rhino (PCR) Not detected (NOT DETECTE) SARS-CoV-2 (PCR) Detected A (NOT DETECTE) Bordetella pertussis (PCR) Not detected (NOT DETECTE) B parapertussis DNA PCR Not detected (NOT DETECTE) Influenza Type A (PCR) Not detected (NOT DETECTE) Influenza Type B (PCR) Not detected (NOT DETECTE) Imaging Data Chest x-ray: Attestation: I have reviewed the pertinent imaging results. Radiologist's impression: ITS Impressions Chest X-Ray 10/16/23 16:15 IMPRESSION: No acute cardiopulmonary process. Electronically authenticated by: KATARZYNA RESENDEZ Date: 10/16/2023 17:20 ECG Data Attestation: I personally reviewed and interpreted this ECG as follows: (Normal sinus rhythm at a rate of 83, minimal ST depression with no acute ST elevation or ectopy. EKG reviewed by attending physician) ECG interpretation date: 10/16/23 Discharge Plan Discharge Stand Alone Forms: Portal Instructions Chief Complaint: Shortness of Breath/Dyspnea Clinical Impression: COVID-19, COPD exacerbation Patient Disposition: Home, Self-Care Time of Disposition Decision: 18:06 Condition: Good Prescriptions / Home Meds: New azithromycin [Zithromax Z-Parveen] 250 mg tablet See Rx Instructions .ROUTE .COMPLEX Qty: 6 0RF Rx Instructions: For 250 mg dose pack: take 500 mg today (day 1), then 250 mg for 4 days (days 2-5) methylprednisolone [Medrol (Parveen)] 4 mg tablets,dose pack See Rx Instructions .ROUTE .COMPLEX Qty: 21 0RF Rx Instructions: Taper as directed No Action alprazolam 0.5 mg tablet 0.5 mg PO BID PRN (Reason: anxiety) Jardiance 25 mg tablet 25 mg PO DAILY latanoprost 0.005 % drops 1 drp OPHTHALMIC (EYE) DAILY Ozempic 0.25 mg or 0.5 mg (2 mg/3 mL) pen injector 0.5 mg SUBCUT .weekly venlafaxine 150 mg capsule,extended release 24hr 150 mg PO BID azithromycin 500 mg tablet 500 mg PO DAILY 5 Days Qty: 5 0RF theophylline 400 mg tablet extended release 24 hr 400 mg PO Q12H 30 Days Qty: 60 0RF albuterol sulfate 90 mcg/actuation HFA aerosol inhaler 2 puff INHALATION Q4H PRN (Reason: shortness of breath or wheezing) Qty: 8.5 0RF prednisone 10 mg tablet See Rx Instructions .ROUTE .COMPLEX Qty: 42 0RF Rx Instructions: 6 tabs daily x 2 days, then 5 tabs daily x 2 days, then 4 tabs daily x 2 days, then 3 tabs daily x 2 days, then 2 tabs daily x 2 days, then 1 tab daily x 2 days, then stop aripiprazole 10 mg tablet 10 mg PO DAILY Trelegy Ellipta 100-62.5-25 mcg blister with device 1 inh INHALATION Q24H glipizide 10 mg tablet 10 mg PO BID hydrocodone-acetaminophen 5-325 mg tablet 1 tab PO Q6H PRN (Reason: pain) lisinopril 5 mg tablet 5 mg PO DAILY metoprolol succinate 25 mg tablet extended release 24 hr 25 mg PO DAILY omeprazole 20 mg capsule,delayed release(DR/EC) 20 mg PO DAILY venlafaxine 75 mg capsule,extended release 24hr 150 mg PO DAILY Print Language: Palestinian Instructions: COPD (Chronic Obstructive Pulmonary Disease) (ED), COVID-19 (Coronavirus Disease 2019) (ED) Referrals: Douglas Pacheco DO [Primary Care Provider] - 1 week
[2023-10-16 16:40] LABS: Basophils Absolute Auto 0.1 10^3/uL (0.0-0.1); Basophils Percent Auto 0.9 % (0.2-2.0); Eosinophils Absolute Auto 0.2 10^3/uL (0.0-0.7); Eosinophils Percent Auto 1.5 % (0.9-7.0); Hematocrit 49.9 % (42.0-54.0); Hemoglobin 16.3 g/dL (14.0-18.0); Immature Granulocytes Abs Auto 0.04 10^3/uL (0.00-0.03); Immature Granulocytes Pct Auto 0.4 % (0.0-0.5); Lymphocytes Absolute Auto 1.5 10^3/uL (1.2-3.8); Lymphocytes Percent Auto 13.6 % (20.5-60.0); Mean Corpuscular HGB Conc 32.7 g/dL (29.9-35.2); Mean Corpuscular Hemoglobin 30.8 pg (25.9-34.0); Mean Corpuscular Volume 94.3 fL (80.0-94.0); Mean Platelet Volume 9.4 fL (9.5-13.5); Monocytes Absolute Auto 0.8 10^3/uL (0.3-0.8); Monocytes Percent Auto 7.4 % (1.7-12.0); Neutrophils Absolute Auto 8.3 10^3/uL (1.4-6.5); Neutrophils Percent Auto 76.2 % (43.0-75.0); Platelet Count 359 10^3/uL (150-450); Red Blood Count 5.29 10^6/uL (4.70-6.10); Red Cell Distribution Width 13.8 % (11.0-15.0); White Blood Count 10.9 10^3/uL (4.0-11.0)
[2023-10-16 16:48] LABS: Adenovirus NOT DETECTED (NOT DETECTE); Bordetella parapertussis NOT DETECTED (NOT DETECTE); Coronavirus 229E NOT DETECTED (NOT DETECTE); Coronavirus HKU1 NOT DETECTED (NOT DETECTE); Coronavirus NL63 NOT DETECTED (NOT DETECTE); Coronavirus OC43 NOT DETECTED (NOT DETECTE); Human Metapneumovirus NOT DETECTED (NOT DETECTE); Human Rhinovirus/Enterovirus NOT DETECTED (NOT DETECTE); Influenza A NOT DETECTED (NOT DETECTE); Influenza B NOT DETECTED (NOT DETECTE); Mycoplasma pneumoniae NOT DETECTED (NOT DETECTE); Parainfluenza Virus 1 NOT DETECTED (NOT DETECTE); Parainfluenza Virus 2 NOT DETECTED (NOT DETECTE); Parainfluenza Virus 3 NOT DETECTED (NOT DETECTE); Parainfluenza Virus 4 NOT DETECTED (NOT DETECTE); Respiratory Syncytial Virus NOT DETECTED (NOT DETECTE)
[2023-10-16 16:50] LABS: Prothrombin Time 9.5 sec (9.0-11.6)
[2023-10-16 16:54] LABS: INR <0.93
[2023-10-16 17:00] LABS: Alanine Aminotransferase 20 U/L (16-63); Albumin Level 3.6 g/dL (3.4-5.0); Alkaline Phosphatase 117 U/L (46-116); Anion Gap 14.5; Aspartate Amino Transferase 11 U/L (15-37); BUN Creatinine Ratio 13.4; Bilirubin Total 0.3 mg/dL (0.2-1.0); Calcium 8.8 mg/dL (8.5-10.1); Carbon Dioxide 29.3 mmol/L (21.0-32.0); Chloride 103 mmol/L (98-107); Estimated GFR (African America >60 (>=60); Estimated GFR (Non-African Ame >60 (>=60); Globulin 3.6 g/dL; Glucose 146 mg/dL (74-106); Potassium 3.8 mmol/L (3.5-5.1); Sodium 143 mmol/L (136-145); Total Protein 7.2 g/dL (6.4-8.2); Troponin I High Sensitivity 7.4 pg/mL (4.0-76.1)
[2023-10-16 17:19] LABS: PCO2 VBG 46.7 mmHg (40.0-52.0)
[2023-10-16 17:51] LABS: SARS-CoV-2 DETECTED (NOT DETECTE)
[2023-10-16] MEDS: 0.9 % SODIUM CHLORIDE 1,000 ML 1000 ML IV (18:02)
[2023-10-16] MEDS: METHYLPREDNISOLONE SOD SUCC PF 125 MG/2 ML VIAL IVP (18:02)
[2023-10-16] MEDS: ALBUTEROL SULFATE 2.5 MG/3 ML VIAL NEB IH (18:05)
[2023-10-16] MEDS: IPRATROPIUM/ALBUTEROL SULFATE 3 ML AMPUL.NEB IH (18:05)
[2023-10-16 18:06] VITALS: PULSE 88
--- NOTE | 2023-10-16 18:07 | RESP.RT ---
wears 4L at home
== END 2023-10-16 19:28 | disposition home or self-care (01) ==
PROVIDERS: Physician Assistant; Emergency Provider Emergency Medicine; PCP Internal Medicine
DX: U07.1 COVID-19 (principal); J44.1 Chronic obstructive pulmonary disease with (acute) exacerbation; I10 Essential (primary) hypertension; E11.9 Type 2 diabetes mellitus without complications; F32.A Depression, unspecified; Z79.899 Other long term (current) drug therapy; Z99.81 Dependence on supplemental oxygen; Z87.891 Personal history of nicotine dependence
CPT/HCPCS: 0202U; 36415; 71045; 80053; 82800; 83605; 83880; 84484; 85025; 85610; 87040; 93005; 94640; 96374; 99285; J2930

== ENCOUNTER 2023-11-14 12:53 | Outpatient (OUT) | payer MEDICARE, SELFPAY ==
--- NOTE | 2023-11-14 13:00 | RT_ITS ---
The [facility] Test Date: 2023-11-14 Pat Name: RICARDO HYLTON Department: Room: - Gender: Male Replenishment Analyst: Domitila Gray RRT : 1960 Requested By: Douglas Pacheco Order Number: [id number] Reading MD: Douglas Pacheco Interpretive Statements Pulmonary function testing was completed according to ATS criteria. Findings were considered accurate and reproducible. Both pre- and post-bronchodilator values utilized for spirometry. Spirometry (based on pre-bronchodilator values): -FEV1/FVC: Reduced @ 33% -FEV1: Severely reduced @ 33% -FVC: Mildly reduced @ 75% -[id number]%: Reduced @ 10% -There is no significant bronchodilator response. Lung volumes by plethysmography (based on pre-bronchodilator values): -RV: Increased @ 165% -TLC: Normal @ 106% Diffusion capacity: -DLCO: Severe reduction @ 48% when corrected for Hb 16.3g/dL Flow-volume loop: -Severe obstructive pattern Prior PFT available for comparison: 12/27/2019 and 05/24/2017: -FEV1: 29% and 21% -DLCO: 57% and 48% Impressions: -Spirometry consistent with severe obstruction without a bronchodilator response. Elevated RV suggests air trapping. Severe diffusion impairment. Overall PFT compatible with severe COPD/emphysema. When compared to prior PFT, there has been slight improvement in FEV1, but DLCO overall is relatively unchanged from 2017. Clinical correlation required. Electronically Signed On 11-16-2023 17:14:59 EDT by Douglas Pacheco
[2023-11-14 13:11] LABS: pH ABG 7.412 (7.350-7.450)
[2023-11-14 13:12] LABS: ABG PCO2 41.8 mmHg (35.0-45.0); Allen Test POSITIVE (POSITIVE); HCO3 ABG 26.6 mmol/L (22.0-26.0); Liters per Minute 4; O2 Mode NC; Oxygen Saturation ABG 91.1 %; PO2 ABG 65.9 mmHg (80.0-100.0); Puncture Site RR
[2023-11-14] MEDS: ALBUTEROL SULFATE 2.5 MG/3 ML VIAL NEB IH (13:38)
--- NOTE | 2023-11-15 07:41 | P.ON_ITS ---
Date of procedure: 11/15/23 Procedure: Procedure 6-minute walk Date 11/14/2023 Indication COPD, chronic hypoxic respiratory failure [facility] 1 Procedure A 6-minute walk was initiated according to standard protocol. Resting BP: 156/89 HR: 95 SpO2: 94% FiO2: RA Xiao: 4 Patient ambulated for a total of 3 minutes. Maximum HR was 111. Lowest SpO2 was 88% on room air. This study was stopped and a new study was initiated on 2L /min supplemental O2. On 2L/min O2, patient ambulated for a total of 6 minutes. Maximum HR was 118. Lowest SpO2 was 91% on 2L/min. Maximum Xiao was 5. Patient was recovered Recovery BP: 128/91 HR: 102 SpO2: 94% FiO2: 2L/min Xiao: 3 Total number of stops: 1 due to dyspnea (20 second pause) Total Distance walked: 113m which is 33% of predicted walk distance Impressions: Ambulatory desaturations on room air, recovered with 2L/min supplemental O2. Reduced walk distance. Recommendations: 2L/min O2 with ambulation/activity. Clinical correlation required. Surgeon: Douglas Pacheco
== END 2023-11-14 12:54 | disposition home or self-care (01) ==
LOC: CARD 12:54
PROVIDERS: PCP Internal Medicine; Visit Provider Internal Medicine
DX: J43.2 Centrilobular emphysema (principal); J96.11 Chronic respiratory failure with hypoxia
CPT/HCPCS: 36600; 82805; 94060; 94618; 94726; 94729

== ENCOUNTER 2024-01-13 16:02 | Outpatient (OUT) | payer MEDICARE, SELFPAY ==
--- NOTE | 2024-01-13 | CT_ITS ---
The [address] [address] Patient Name: RICARDO HYLTON MRN: [id number] date: 1960 Sex: M Assigned Patient Location: CT Current Patient Location: Accession/Order Number: [id number] Exam Date: 01/13/2024 16:06 Report Date: 01/17/2024 06:50 At the request of: VANDA GONZALEZ Procedure: CT lung screening low-dose EXAMINATION: CT lung screening low-dose HISTORY: Z87.891 History of tobacco use COMPARISON: CTA chest 12/22/2022 TECHNIQUE: Axial, Coronal, and Sagittal images were created without the administration of IV contrast material. Dose reduction techniques were achieved by using automated exposure control and/or adjustment of mA and/or kV according to patient size and/or use of iterative reconstruction technique. FINDINGS: LUNGS: Stable mild emphysematous changes and chronic scarring. No acute infiltrates or suspicious nodules. PLEURA: No mass, effusion, or pneumothorax. VASCULATURE: No abnormality. MERCEDEZ: No mass or pathologic adenopathy. MEDIASTINUM: No mass or pathologic adenopathy. CARDIAC: No enlargement, pericardial thickening, or pericardial effusion. Coronary Artery calcifications: AORTA: No aneurysm or dissection. CHEST WALL: No mass or axillary adenopathy BONES: No bone lesion or fracture. LIMITED ABDOMEN: No suspicious findings. Limited images of the upper abdomen. OTHER: Negative. CT/CT lung screening low-dose IMPRESSION: 1. Lung-RADS 2- Benign Appearance or Behavior. Nodules with a very low likelihood of becoming a clinically active cancer due to size or lack of growth. Follow-up CT Chest in 1 year. Electronically authenticated by: TOM QUIGLEY Date: 01/17/2024 06:50
--- OUTSIDE RECORDS SUMMARY | 2024-01-13 16:14 | XMS_ITS | CCD ---
Author Organization [facility] Care Team Providers Care Electronic Systems Technician Name Role Phone ELTAHAWY, EHAB A Admitting Unavailable ELTAHAWY, EHAB A Attending Unavailable JANET COWART Referring Unavailable ELTAHAWY, EHAB Marek Primary Care Unavailable Janet Cowart MD Primary Care Provider [phone] Tara DOVanda P Unavailable Janet Cowart Unavailable SAMSA ., VANDA Admitting Unavailable SAMSA ., VANDA Attending Unavailable DR JANET COWART Primary Care Unavailable DR JANET COWART Primary Care Unavailable HEBERT JURADO Consulting Unavailable HEBERT JURADO Attending Unavailable HEBERT JURADO Admitting Unavailable SOLA SHELL Consulting Unavailable DR JANET COWART Primary Care Unavailable BENI .JAYDA Consulting Unavailable BENI .JAYDA Attending Unavailable BENI ., JAYDA Admitting Unavailable GERARD ESPANA Consulting Unavailable EDDI ., DR EVERETTE Richey Consulting Unavailable MONTAGUE ., DR EVERETTE Richey Attending Unavailable EDDI ., DR EVERETTE Richey Admitting Unavailable DR JANET COWART Primary Care Unavailable JAYDA MCCORMICK Consulting Unavailable , BERTA Consulting Unavailable YADIRA BALLESTEROS Consulting Unavailable DR JANET COWART Primary Care Unavailable MONTAGUE .DR EVERETTE Consulting Unavailable MONTAGUE ., DR EVERETTE Richey Attending Unavailable MONTAGUE ., DR EVERETTE Richey Admitting Unavailable GRECHGISELLE .JOSE Consulting UnavailHEBERT Garcia Consulting Unavailable SOLA SHELL Consulting Unavailable , BERTA Consulting Unavailable DR JANET COWART Primary Care Unavailable SAMSA ., VANDA Attending Unavailable SAMSA ., VANDA Admitting Unavailable DR JANET COWART Primary Care Unavailable SAMSA ., VANDA Attending Unavailable SAMSA ., VANDA Admitting Unavailable SAMSA ., VANDA Admitting Unavailable SAMSA ., VANDA Consulting Unavailable SAMSA ., VANDA Attending Unavailable DR JANET COWART E Primary Care Unavailable SOFYA, DR JANET Richey Primary Care Unavailable SOFYA, [...] Unavailable Janet Cowart MD Primary Care Provider [phone] Vanda Gonzalez DO Unavailable SARAH KEITH Attending Unavailable SARAH KEITH Attending Unavailable Allergies Allergy Classification Reported Allergen(s) Allergy Type Date of Onset Reaction(s) Facility (20 sources) metFORMIN; Translations: [metFORMIN] Drug Allergy 03-25-2021 Intolerance [facility] (4 sources) metFORMIN Drug Allergy Diarrhea [email or web address] Other (1 source) metFORMIN Drug Allergy 03-18-2022 [facility] Repository Medications Current Medications Medication Drug Class(es) [...] oral tablet (20 sources) Opioid Agonist Start: 09-06-2023 End: 10-03-2023 take 1 tablet by mouth every six hours Hydrocodone-Acetaminophen Active 1 TAB PO Every 6 hours 120 30 October 03, 2023 Start: 08-10-2023 take 1 tablet by [facility] [...] mg/ml inhalation solution (20 sources) beta2-Adrenergic Agonist Start: 09-14-2023 take 2.5 mg by inhalation every four to six hours Albuterol Sulfate Active 2.5 MG INHALATION EVERY 4-6 HOURS September 14, 2023 1:00am Albuterol Sulfat e (2.5 MG/3ML) 0.083% 3 ml Inhalation q 4 hours as needed dx: J44.9 COPD Active Albuterol Sulfat e (2.5 MG/3ML) 0.083% 3 ml Inhalation q 4 hours as needed dx: J44.9 COPD Active alpha 1-proteinase inhibitor, human 1 mg injection (20 sources) Human alpha-1 Proteinase Inhibitor Start: 09-14-2023 Alpha-1 Proteinase Inhib.(Hum) Active MG IV As Directed September 14, 2023 1:00am Prolastin-C 1000 MG as directed Intravenous Active ALPRAZolam 0.5 mg oral tablet (20 sources) Benzodiazepine Start: 09-14-2023 End: 09-27-2023 take 0.5 mg by mouth twice daily Alprazolam Active 0.5 MG PO Twice daily 60 September 27, 2023 10:35am Start: 08-26-2023 take 1 tablet by [facility]ly th twice [...] day prn for 30 days Dec, Active ARIPiprazole 10 mg oral tablet (20 sources) Atypical Antipsychotic Start: 09-14-2023 take 10 mg by mouth once daily Aripiprazole Active 10 MG PO Daily September 14, 2023 1:00am Start: 02-27-2021 take 1 tablet by [facility]ly th once daily ARIPiprazole (ABILIFY) 10 mg tablet Take 10 mg by mouth once daily. 0 02/27/2021 Active Comment on above: Take 10 mg by mouth once daily. Cpap (Continuous Positive Airway Pressure) (1 source) Start: 09-14-19 Cpap (Continuous Positive Airway Pressure) Active 0 .Route September 14, 2023 1:00am As directed CPAP Machine (20 sources) CPAP Machine As Directed Active cyclobenzaprine hydrochloride 5 mg oral tablet (20 sources) Muscle Relaxant Start: 09-14-19 take 5 mg by mouth once daily at bedtime Cyclobenzaprine Active 5 MG PO Daily at bedtime September 14, 2023 1:00am take 1 tablet by [facility] th every twenty-four hours Cyclobenzaprine HCl 5 MG 1 tablet at bedtime as needed Orally Once a day Active 24 hr dilTIAZem hydrochloride 240 mg extended release oral capsule (20 sources) Calcium Channel Shivam Start: 09-14-2023 take 240 mg by mouth once daily Diltiazem Hcl Active 240 MG PO Daily September 14, 2023 1:00am Start: 03-25-2021 take 1 capsule by mo [facility] once daily dilTIAZem CD (CARDIZEM CD) 240 mg 24 hr capsule Take 1 capsule by mouth once daily. 0 03/25/2021 Active Comment on above: Take 1 capsule by mo [facility] once daily. empagliflozin 25 mg oral tablet (20 sources) Sodium-Glucose Cotransporter 2 Inhibitor Start: 10-25-19 take 1 tablet by mouth once daily Empagliflozin (Jardiance) 25 mg tablet Active 0 .ROUTE .COMPLEX October 25, 2023 2:51pm TAKE 1 TABLET BY MOUTH EVERY DAY Start: 09-14-2023 End: 10-25-2023 take 25 mg by mouth once daily Empagliflozin Discontin ued 25 MG PO Daily September 14, 2023 1:00am October 25, 2023 2:52pm take 1 tablet by [facility] once daily Jardiance 25 mg TAKE 1 TABLET BY MOUTH DAILY for 30 Active glipiZIDE 10 mg oral tablet (20 sources) Sulfonylurea Start: 09-19-2023 take 1 tablet by mouth twice daily Glipizide Active 0 .ROUTE .COMPLEX 180 September 19, 2023 1:16pm TAKE 1 TABLET BY MOUTH TWICE A DAY Start: 09-14-2023 End: 09-19-2023 take 10 mg by mouth twice daily Glipizide Discontinued 10 MG PO Twice daily September 14, 2023 1:00am September 19, 2023 1:16pm Start: 02-07-2021 take 1 tablet by [facility] twice daily glipiZIDE (GLUCOTROL) 10 mg tablet Take 10 mg by mouth twice daily. 0 02/07/2021 Active Comment on above: Take 10 mg by mouth twice daily. 12 hr guaiFENesin 600 mg extended release oral tablet (20 sources) Start: 09-14-2023 take 1 tablet by mouth every twelve hours, then take 1 tablet by mouth every twelve hours Guaifenesin (Mucinex) 600 mg tablet extended release 12hr Active 600 MG PO Every 12 hours September 14, 2023 1:00am Start: 03-25-2021 take 2 tablets by [facility] twice daily guaiFENesin (MUCINEX) 600 mg 12 hr tablet Take 2 tablets by mouth twice daily. 0 03/25/2021 Active take 1 tablet by [facility] th every twelve hours Mucinex 600 MG 1 tablet as needed Orally every 12 hrs Active Comment on above: Take 2 tablets by mo [facility] twice daily. Handicap placards as directed (20 sources) Handicap placard s as directed as directed as directed as directed Active lisinopril 5 mg oral tablet (20 sources) Angiotensin Converting Enzyme Inhibitor Start: 09-14-2023 take 5 mg by mouth once daily Lisinopril Active 5 MG PO Daily September 14, 2023 1:00am Start: 08-09-2022 take 1 tablet by [facility] th every twenty-four hours Lisinopril 5 MG 1 tablet Orally Once a day Jul, Active 24 hr metoprolol succinate 25 mg extended release oral tablet (20 sources) beta-Adrenergic Shivam Start: 10-25-2023 take 1 tablet by mouth once daily Metoprolol Succinate Active 0 .ROUTE .COMPLEX 90 October 25, 2023 2:51pm TAKE 1 TABLET BY MOUTH EVERY DAY Start: 09-14-2023 End: 10-25-2023 take 25 mg by mouth once daily Metoprolol Succinate Di scontinued 25 MG PO Daily September 14, 2023 1:00am October 25, 2023 2:52pm Start: 02-07-2021 take 1 tablet by [facility] once daily metoprolol succinate ER (TOPROL XL) 25 mg 24 hr tablet Take 25 mg by mouth once daily. 0 02/07/2021 Active Comment on above: Take 25 mg by mouth once daily. mupirocin 0.02 mg/mg topical ointment (1 source) RNA Synthetase Inhibitor Antibacterial Start: 4 Mupirocin Active 1 APPLIC TOPICAL Twice daily September 15, 2023 1:00am Patrick 3 1000 MG (20 sources) take 1 capsule by mouth once daily Patrick 3 1000 MG 1 capsule Orally Once a day Active Patrick-3 Fatty Acids (1 source) Start: 4 take 1000 mg by mouth once daily Patrick-3 Fatty Acids Active 1000 MG PO Daily September 14, 2023 1:00am omeprazole 20 mg delayed release oral capsule (20 sources) Proton Pump Inhibitor Start: 4 take 1 capsule by mouth once daily in the morning Omeprazole Active 0 .ROUTE .COMPLEX 90 October 17, 2023 12:35pm TAKE 1 CAPSULE BY MOUTH EVERY DAY IN THE MORNING Start: 09-14-2023 End: 10-17-2023 take 20 mg by mouth once daily Omeprazole Discontinued 20 MG PO Daily September 14, 2023 1:00am October 17, 2023 12:35pm Start: 02-24-2021 take 1 capsule by mo [facility] once daily omeprazole (PRILOSEC) 20 mg capsule Take 20 mg by mouth once daily. 0 02/24/2021 Active Comment on above: Take 20 mg by mouth once daily. Oxygen (1 source) Start: 2023 Oxygen Active 0 .Route September 14, 2023 1:00am As directed Oxygen 2 liters (20 sources) Oxygen 2 [...] 20 mg one tab orally daily Active predniSONE 20 mg oral tablet (7 sources) Start: 2023 take 20 mg by mouth once daily Prednisone Active 20 MG PO Daily September 14, 2023 1:00am Start: 03-25-2021 take 1 tablet by [facility] once daily predniSONE (DELTASONE) 10 mg tablet Take 1 tablet by mouth once daily. 0 03/25/2021 Active Comment on above: Take 1 tablet by [facility] once daily. Semaglutide (2 sources) Start: inject 0.5 mg by subcutaneous injection every week Semaglutide (Ozempic) 0.25 mg or 0.5 mg (2 mg/3 mL) pen injector Active 0 .ROUTE .COMPLEX 3 October 25, 2023 2:51pm INJECT 0.5 MG SUBCUTANEOUSLY ONCE A WEEK Start: 09-14-2023 End: 10-25-2023 inject 0.5 mg by subcutaneous injection every week Semaglutide Discontinued 0.5 MG SUBCUT every week September 14, 2023 1:00am October 25, 2023 2:52pm 125 ml sodium chloride 9 mg/ ml prefilled syringe (8 sources) Start: 02-13-2021 End: 05-15-2022 sodium chloride 0.9 % (flush ) 10 mL (BD POSIFLUSH) Start: 02-13-2021 End: 05-15-2022 INV NACL 0.9% 25 mL FLUSH (I RB [id number]) Inject 10 mL intravenously. 0 02/13/2021 05/15/2022 Active Comment on above: Inject 10 mL intrave nously. theophylline 400 mg extended release oral tablet (20 sources) Methylxanthine Start: 09-14-19 take 400 mg by mouth once daily Theophylline Active 400 MG PO Daily September 14, 2023 1:00am Start: 12-25-2020 take 1 tablet by [facility] twice daily, then take 1 tablet by mouth every twenty-four hours theophylline ER (UNIPHYL) 400 mg 24 hr tablet Take 400 mg by mouth twice daily. 0 12/25/2020 Active take 1 tablet by [facility] every twenty-four hours Theophylline ER 400 MG 1 tablet Orally Once a day Active Comment on above: Take 400 mg by mouth twice daily. 24 hr venlafaxine 150 mg extended release oral capsule (20 sources) Serotonin and Norepinephrine Reuptake Inhibitor Start: 09-14-19 take 1 capsule by mouth twice daily at mealtime Venlafaxine (Effexor Xr) 150 mg capsule,extended release 24hr Active 150 MG PO Twice daily with meals September 14, 2023 1:00am Start: 03-03-2021 take 1 tablet by [facility] twice daily VENLAFAXINE ER 150 MG TABLET,EXTENDED RELEASE 24 HR Take 150 mg by mouth twice daily. 0 03/03/2021 Active take 1 capsule by [facility] every twelve hours Effexor XR 150 MG 1 capsule with food Orally bid for 90 days Active take 1 capsule by [facility] every twenty-four hours Effexor XR 150 MG 1 capsule with food Orally Once a day for 30 days Active take [address] [facility] Effexor XR 75 MG 1 capsule with food Orally Twice a day for 30 days Active Comment on above: Take 150 mg by mouth twice daily. Completed/Discontinued Medications Medication Drug Class(es) Dates Sig (Normalized) Sig (Original) 120 actuat albuterol 0.1 mg/actuat / ipratropium bromide 0.02 mg/actuat inhalation spray (18 sources) Anticholinergic, beta2-Adrenergic Agonist Start: 02-18-20 21 take 20-100 ug by inhalation four times daily COMBIVENT RESPIMAT 20-100 mcg/actuation inhaler INHALE 1 PUFF BY MOUTH 4 TIMES A DAY 0 02/17/2021 Active Comment on above: INHALE 1 PUFF BY [facility] 4 TIMES A DAY rmbki-9-abtbikjbrs inhibitor (Human) 1,000 mg in water for injection (6 sources) Start: 03-25-20 21 inject 1000 mg intravenously every week dwjrj-0-fvlimlqzzh inhibitor (Human) 1,000 mg in water for injection Inject 1,000 mg intravenously one time a week. 0 03/25/2021 Active Comment on above: Inject 1,000 mg intr avenously one time a week. amoxicillin 875 mg / clavulanate 125 mg oral tablet (12 sources) Penicillin-class Antibacterial Start: 09-20-19 19 take 1 tablet by mouth every twelve hours Amoxicillin-Pot Clavulanate 875-125 MG 1 tablet Orally every 12 hrs for 10 day(s) Sep, Not-Taking aspirin 81 mg delayed release oral tablet (6 sources) Platelet Aggregation Inhibitor, Nonsteroidal Anti-inflammator y Drug Start: 02-08-20 21 take 1 tablet by mouth once daily aspirin, enteric coated (ASPIRIN, ENTERIC COATED) 81 mg EC tablet Take 81 mg by mouth once daily. 0 02/07/2021 Active Comment on above: Take 81 mg by mouth once daily. Breo Ellipta 100-25 MCG/INH (12 sources) Start: 01-15-20 14 take 1 puff(s) by inhalation once daily Breo Ellipta 100-25 MCG/INH 1 puff Inhalation Once a day for 30 day(s) Dec, Not-Taking 30 actuat fluticasone furoate 0.1 mg/actuat / umeclidinium 0.0625 mg/actuat / vilanterol 0.025 mg/actuat dry powder inhaler (6 sources) Anticholinergic, Corticosteroid, beta2-Adrenergic Agonist Start: 02-18-20 21 take 1 puff(s) by mouth once daily TRELENINI ELLIPTA 100-62.5-25 mcg INHALE 1 PUFF BY MOUTH DAILY 0 02/17/2021 Active Comment on above: INHALE 1 PUFF BY [facility] TH DAILY FREESTYLE MARTIN 2 SENSOR kit (6 sources) Start: 02-18-20 21 FREESTYLE MARTIN 2 SENSOR kit as directed. 0 02/17/2021 Active Comment on above: as directed. hydroCHLOROthiazide 12.5 mg oral tablet (12 sources) Thiazide Diuretic take 1 tablet by mouth every twenty-four hours hydroCHLOROthiazide 12.5 MG 1 tablet Orally Once a day for 30 day(s) Not-Taking pravastatin sodium 40 mg oral tablet (18 sources) HMG-CoA Reductase Inhibitor Start: 03-25-20 take 1 tablet by mouth once daily at bedtime pravastatin (PRAVACHOL) 40 mg tablet Take 1 tablet by mouth daily at bedtime. 0 03/25/2021 Active take 1 tablet by [facility] th every twenty-four hours Pravastatin Sodium 10 MG 1 tablet Orally Once a day for 30 day(s) Not-Taking Comment on above: Take 1 tablet by [facility]ly th daily at bedtime. 0.25 mg, 0.5 mg dose 1.5 ml semaglutide 1.34 mg/ml pen injector (19 sources) Start: 021 OZEMPIC 0.25 mg or 0.5 mg(2 mg/1.5 mL) pnij INJECT 0.5MG SUBCUTANEOUSLY WEEKLY 0 02/17/2021 Active Comment on above: INJECT 0.5MG SUBCUTA NEOUSLY WEEKLY tiotropium 0.018 mg inhalation powder (12 sources) [...] 2,000 mg by beverly th twice daily. Problems Active Problems Problem Classification [...] Onset: 3 Chronic Diabetes mellitus without complication (8 sources) Diabetes mellitus; Translations: [Type 2 diabetes mellitus without complications] Onset: 1 03-25-2021 Chronic Disorders of lipid metabolism (1 source) Pure hypercholesterolemia, unspecified; Translations: [PURE HYPERCHOLESTEROLEMIA UNSPEC] Onset: 3 Chronic Esophageal disorders (7 sources) Gastroesophageal reflux disease; Translations: [Gastro-esophageal reflux disease without esophagitis] Onset: 1 03-25-2021 Chronic Essential hypertension (9 sources) Essential hypertension; Translations: [Essential (primary) hypertension] Onset: 9 03-25-2021 Chronic Mood disorders (13 sources) Depressive disorder; Translations: [Depression] Onset: 1 03-25-2021 Chronic Other aftercare (1 source) Other residential (current) drug therapy; Translations: [OTH [facility] CURRENT DRUG THERAPY] Onset: 3 Episodic Other aftercare (1 source) 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; Translations: [FPC CURRENT USE OF ASPIRIN] Onset: 3 Episodic Other aftercare (1 source) retirement (current) use of oral hypoglycemic drugs; Translations: [F[facility] USE ORAL HYPOGLYCEMIC DX] Onset: 3 Episodic Other aftercare (4 sources) Encounter for therapeutic drug level monitoring; Translations: [ENC THERAPEUTC DRUG LEVL MONITORING] Onset: 3 Episodic Other lower respiratory disease (4 sources) Shortness of breath; Translations: [SHORTNESS OF BREATH] Onset: 3 Episodic Other lower respiratory disease (4 sources) Hypoxemia; Translations: [HYPOXEMIA] Onset: 3 Episodic Other nutritional; endocrine; and metabolic disorders (8 sources) Nsnjc-3-ugdktyecali deficiency; Translations: [Rbgzf-0-fdugqipmgci deficiency] Onset: 1 03-25-2021 Chronic Other nutritional; [...] nutritional; endocrine; and metabolic disorders (1 source) Fxhkn-3-abwxmatctut deficiency; Translations: [KTLRY-6-KNXSVUXEFZW DEFICIENCY] Onset: 3 Chronic Other nutritional; endocrine; and metabolic disorders (20 sources) Severe obesity; Translations: [Morbid (severe) obesity due to excess calories] Chronic Other nutritional; endocrine; and metabolic disorders (20 sources) Body mass index 30+ - obesity; Translations: [Body mass index (BMI) 39.0-39.9, adult] Chronic Other nutritional; endocrine; and metabolic disorders (1 source) Morbid (severe) obesity due to excess calories Chronic Other skin disorders (1 source) Disorder of skin of upper limb; Translations: [Disorder of the skin and subcutaneous tissue, unspecified] 09-17-2023 Episodic Other skin disorders (1 source) Disorder of the skin and subcutaneous tissue, unspecified; Translations: [Unspecified disorder of skin and subcutaneous tissue] 09-15-2023 Episodic Residual codes; unclassified (1 source) Awaiting transplantation [...] Spondylosis; intervertebral disc disorders; other back problems (10 sources) Radiculopathy, cervical region; Translations: [Cervical radiculopathy] Episodic Unclassified (4 sources) CONTACT W/AND (SUSP) [...] Test Name Value Interpretation Reference Range Facility Family Medicine Office/Clini c Noteon 12-29-2023 Family Medicine Office/Clinic Note HPI Staff Ricardo is a 63 year old male presenting to [facility] Establish Care: History: COPD, Emphysema DM Any previous diagnosis: History of seeing any specialist: Dr Gonzalez When was your last doctors visit: 3-4 weeks ago Last provider: Dr Cowart Any recent labs: less than a year ago at [facility] Maintenance UTD: Colonoscopy: never PSA: doesn't thnk he's ever had one Acute: his breathing which is ongoing and Dr Gonzalez follows him wants him to lose some weight. Current issues/complaints: Dr Cowart released him due to failed urine drug screen ( on vicodin) and wasn't in his system on drug test History of Present Illness 63 year old former patient of Dr. Lizz Cowart presents today to establish care. He has a previous hx of COPD/Emphysema and diabetes. He reports he was released from Dr. Cowart's care d/t misuse of schedule II medications. 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 He does report he experiences anxiety to which he previous had Xanax for but is open to trying another medication. He reports he does not use the vicodin and he does not want that medication refilled. He states he saw Dr Cowart a couple weeks ago and he does not need any mediation refills. Review of Systems PHQ Score Initial Depression Screen Score: 2 SCORE Constitutional: no fever, no chills, no sweats, no weakness Skin: no Jaundice, no rash, no lesions, nopetechiae ENMT: no ear pain, no sore throat, no congestion, no hoarseness Respiratory: no shortness of breath, no cough, no orthopnea, no wheezing Cardiovascular: no chest pain, no palpitations, no edema Gastrointestinal: no nausea, no vomiting, no diarrhea, no GI bleeding Genitourinary: no dysuria, no hematuria, no discharge, no pain Musculoskeletal: no back pain, no trauma Neurologic: no headache, no dizziness, no numbness, no weakness Psychiatric: no sleeping problems, no irritability, no mood swings/depression. Heme/Lymph: no bleeding tendency, no bruising tendency, no petechiae, no swollen nodes Allergy/Immunologic: no seasonal allergies, no food allergies, no recurrent infections, no impaired immunity Additional ROS info: Except as noted in the above Review of Systems and in the History of Present Illness all other systems have been reviewed and are negative or noncontributory. Physical Exam Vitals & Measurements T: 36.7 ?C(Oral) HR: 100(Peripheral) RR: 28 BP: 142/80 SpO2: 96% HT: 70 in HT: 177.3 cm WT: 115.7 kg WT: 254.54 lb BMI: 36.81 General: alert, no acute distress Skin: warm, dry Head: no trauma, normocephalic Neck: Trachea midline, no adenopathy, no tenderness Eye: normal conjunctiva, sclera clear ENMT: TM's clear, oral mucosa moist, no pharyngeal erythema or exudate Cardiovascular: regular rate and rhythm, normal peripheral perfusion Respiratory: Lungs diminished throught the posterior walls, respirations non labored Chest wall: no deformity. Gastrointestinal: soft, non distended, no tenderness, no guarding. Back: No tenderness, Normal ROM, Normal alignment. Extremities: no deformity, no trauma Neurological: oriented x 4, LOC appropriate for age, CN II-XII intact, motor strength equal & normal bilaterally, sensation equal & normal bilaterally, speech normal Psychiatric: cooperative, affect appropriate for age, normal judgement, normal psychiatric thoughts. Assessment/Plan 1. Anxiety (F41.9: Anxiety disorder, unspecified) Discussed previous medications; explained to patient Xanax would not be prescribed at this visit Patient in agreement to try another agent OARRS reviewed at this visit f/u in 4 weeks Ordered: hydrOXYzine, 25 mg = 1 tab(s), Oral, TID, PRN for anxiety, # 90 tab(s), Refills(s) 0, Pharmacy: [facility]/pharmacy #[id number], 177.3, cm, 12/28/23 13:07:00 EDT, Height/Length Dosing, 115.7, kg, 12/28/23 13:07:00 EDT, Weight Dosing 2. Emphysema/COPD (J43.9: Emphysema, unspecified) Pulse oX 96 % on 3 LPM of Oxygen per nasal cannula Continue with pulmonolgy as scheduled Continue Combivent & Trelegy Ellipta as ordered F/u in 6 months Ordered: Body Mass Index (BMI) documented 3008F Current tobacco non-user 1036F Depression Screening Negative 3352F Most recent diastolic blood pressure 80-89 mm Hg 3079F Most recent systolic blood pressure >= 140 mm Hg 3077F 3. Encounter to establish care (Z76.89: Persons encountering health services in other specified circumstances) Patient to request records from previous provider to include most recent laboratory reports Ordered: Body Mass Index (BMI) documented 3008F Current tobacco non-user 1036F Depression Screening Negative 3352F Most recent diastolic blood pressure 80-89 mm Hg 3079F Most recent systolic blood pressure >= 140 mm Hg 3077F 4. Type II diabetes mellitus with complication (E11.8: Type 2 diabetes mellitus with unspecified complications) Patient reports good control Glipizide 10 mg one tablet BID Ozempic 0.5 mg subq week (more content not included)... Normal [facility] Comment on above: Result Comment: Elec tronically Signed By: SARAH KEITH CNP\.br\Date and Time Signed: 12/29/23 08:59 EDT Patient Educationon 12-29-19 Patient Education Mental and Behaviora Health Managing Anxiety, Adult After being diagnosed with anxiety, you may be relieved to know why you have felt or behaved a certain way. You may also feel overwhelmed about the treatment ahead and what it will mean for your life. With care and support, you can manage this condition. How to manage lifestyle changes Managing stress and anxiety Stress is your body's reaction to life changes and events, both good and bad. Most stress will last just a few hours, but stress can be ongoing and can lead to more than just stress. Although stress can play a major role in anxiety, it is not the same as anxiety. Stress is usually caused by something external, such as a deadline, test, or competition. Stress normally passes after the triggering event has ended. Anxiety is caused by something internal, such as imagining a terrible outcome or worrying that something will go wrong that will devastate you. Anxiety often does not go away even after the triggering event is over, and it can become long-term (chronic) worry. It is important to understand the differences between stress and anxiety and to manage your stress effectively so that it does not lead to an anxious response. Talk with your health care provider or a counselor to learn more about reducing anxiety and stress. He or she may suggest tension reduction techniques, such as: ? Music therapy. Spend time creating or listening to music that you enjoy and that inspires you. ? Mindfulness-based meditation. Practice being aware of your normal breaths while not trying to control your breathing. It can be done while sitting or walking. ? Centering prayer. This involves focusing on a word, phrase, or sacred image that means something to you and brings you peace. ? Deep breathing. To do this, expand your stomach and inhale slowly through your nose. Hold your breath for 3?5 seconds. Then exhale slowly, letting your stomach muscles relax. ? Self-talk. Learn to notice and identify thought patterns that lead to anxiety reactions and change those patterns to thoughts that feel peaceful. ? Muscle relaxation. Taking time to tense muscles and then relax them. Choose a tension reduction technique that fits your lifestyle and personality. These techniques take time and practice. Set aside 5?15 minutes a day to do them. Therapists can offer counseling and training in these techniques. The training to help with anxiety may be covered by some insurance plans. Other things you can do to manage stress and anxiety include: ? Keeping a stress diary. This can help you learn what triggers your reaction and then learn ways to manage your response. ? Thinking about how you react to certain situations. You may not be able to control everything, but you can control your response. ? Making time for activities that help you relax and not feeling guilty about spending your time in this way. ? Doing visual imagery. This involves imagining or creating mental pictures to help you relax. ? Practicing yoga. Through yoga poses, you can lower tension and promote relaxation. Medicines Medicines can help ease symptoms. Medicines for anxiety include: ? Antidepressant medicines. These are usually prescribed for long-term daily control. ? Anti-anxiety medicines. These may be added in severe cases, especially when panic attacks occur. Medicines will be prescribed by a health care provider. When used together, medicines, psychotherapy, and tension reduction techniques may be the most effective treatment. Relationships Relationships can play a big part in helping you recover. Try to spend more time connecting with trusted friends and family members. ? Consider going to couples counseling if you have a partner, taking family education classes, or going to family therapy. ? Therapy can help you and others better understand your condition. How to recognize changes in your anxiety Everyone responds differently to treatment for anxiety. Recovery from anxiety happens when symptoms decrease and stop interfering with your daily activities at home or work. This may mean that you will start to: ? Have better concentration and focus. Worry will interfere less in your daily thinking. ? Sleep better. ? Be less irritable. ? Have more energy. ? Have improved memory. It is also important to recognize when your condition is getting worse. Contact your health care provider if your symptoms interfere with home or work and you feel like your condition is not improving. Follow these instructions at home: Activity ? Exercise. Adults should do the following: ? Exercise for at least 150 minutes each week. The exercise should increase your heart rate and make you sweat (moderate-intensity exercise). ? Strengthening exercises at least twice a week. ? Get the right amount and quality of sleep. Most adults need 7?9 hours of sleep each night. Lifestyle ? (more content not included)... Normal [facility] Ambulatory Visit Summaryon 0 12-28-2023 Ambulatory Visit Summary RICADRO HYLTON :1960 Visit Date:12/28/2023 Ambulatory Visit Instructions Your Diagnosis Anxiety Emphysema/COPD Encounter to establish care Type II diabetes mellitus with complication BMI 36.0-36.9,adult Class 1 obesity due to excess calories in adult Former smoker Your Care Team Attending Physician - SARAH KEITH CNP Primary Care Physician - SARAH KEITH CNP This Is Your Medications List albuterol-ipratropium (Combivent Respimat 20 mcg-100 mcg) alpha 1-proteinase inhibitor (Prolastin-C) aripiprazole (aripiprazole 10 mg Tab) aspirin (aspirin 81 mg Oral EC Tab) cyclobenzaprine (cyclobenzaprine 5 mg Tab) dextromethorphan-guai fenesin (Mucinex DM 30 mg-600 mg Tab-ER) fluticasone/umeclidin ium/vilanterol (Trelegy Ellipta 100 mcg-62.5 mcg-25 mcg inhalation powder) furosemide (furosemide 40 mg Tab) glipiZIDE (glipiZIDE 10 mg Tab) hydrOXYzine (hydrOXYzine hydrochloride 25 mg Tab) lisinopril (lisinopril 5 mg Tab) metoprolol (metoprolol 25 mg ER Tab) omeprazole (omeprazole 20 mg Cap-DR) pravastatin (pravastatin 40 mg Tab) semaglutide (Ozempic 2 mg/3 mL (0.25 mg or 0.5 mg dose) subcutaneous solution) theophylline (theophylline 450 mg ER Tab) venlafaxine (venlafaxine 150 mg Cap-ER) Procedures Performed Cardiac catheter. Discharge Vitals Temperature (Oral) 36.7 ?C Heart Rate (Peripheral) 100 Respiratory Rate 28 Blood Pressure 142/84 Height 177.3 cm Height 70 in Weight 115.7 kg Weight 254.54 lb BMI 36.81 What to do next Scheduled Follow-Up Appointments Tuesday 1:40 PM EDT With: SRAAH KEITH CNP Where: [facility] for Release of Medical Recordson 12-28-2023 Auth for Release of Medical Records [id number]. [id number] [facility] [place] 04-25-2023 NEVA Telephone (PULTMN) RICARDO HYLTON ([id number]) 1960 M Date Time Provider Department 04/25/23 [...] any questions. Capo Meraz RN, BSN Pre-Lung Staple Side Laster Allergies As of Date: 04/25/2023 Noted Allergy Reaction METFORMIN 03/25/2021 5 - Intolerance Comments: diarrhea Date Reviewed: 03/25/2021 Reviewed by: Lia Sanders RN - Fully Assessed Reason for Visit: Closing Referral [Other] Prescriptions as of 04/25/2023 - ywihl-7-wcwjqkaqis inhibitor (Human) 1,000 mg in water for [...] 81 mg by mouth once daily. - [employer] 2 SENSOR kit as directed. 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] 02/16/2021 Chronic obstructive pulmonary disease (HCC) [J4*01/17/2019 Essential hypertension [I10] 02/14/2019 RANCHO (obstructive sleep apnea) [G47.33] 03/25/2021 Depression [F32.A] 03/25/2021 GERD (gastroesophageal reflux disease) [K21.9] 03/25/2021 Diabetes (HCC) [E11.9] 03/25/2021 Bipolar 1 disorder (HCC) [F31.9] 03/25/2021 Encounter Status:Closed by CAPO MERAZ on 04/25/23 [facility]20[facility] RICARD[facility] HYL[facility] ([id number]) 1960 M Date Time Provider Department 03/22/23 [...] number provided. 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] 02/16/2021 Chronic obstructive pulmonary disease (HCC) [J4*01/17/2019 Essential hypertension [I10] 02/14/2019 RANCHO (obstructive sleep apnea) [G47.33] 03/25/2021 Depression [F32.A] 03/25/2021 GERD (gastroesophageal reflux disease) [K21.9] 03/25/2021 Diabetes (HCC) [E11.9] 03/25/2021 Bipolar 1 disorder (HCC) [F31.9] 03/25/2021 Encounter Status:Closed by CAPO MERAZ on 03/22/23 [facility] [place] 03-10-2023 [facility] RIC[facility]YL[facility] ([id number]) 1960 M Date Time Provider Department 03/10/23 CAPO MERAZ During your visit today, we recorded the following information about you: Capo Meraz, ANNETTE 03/10/2023 12:05 PM Signed Attempted to reach patient regarding lung transplant referral. He was last seen in 03/2021 and has not been back since. We have not heard from the patient since 10/2021. I was unable to speak with him and unable to leave a message due to his voicemail being full. 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 Comment on above: Performed By: #### C MP #### [facility] [address] [address] [address] Jessie Lomax CK.MB [Mass/Vol] 1.93 ng/mL Normal <=3.60 [facility] Comment on above: Performed By: #### C MP #### [facility] [address] [address] [address] Jessie Lomax HSTROP 7.8 pg/mL Normal 4.0-76.1 [facility] Comment on above: Result Comment: CUT- OFF POINTS HAVE BEEN ESTABLISHED BASED ON THE FOURTH UNIVERSAL DEFINITIONS OF MYOCARDIAL INFARCTION. THE UPPER REFERENCE LIMIT (URL) OF TROPONIN, DEFINED THE 99TH PERCENTILE OF cTnI DISTRIBUTION IN A REFERENCE POPULATION, HAS BEEN CONFIRMED THE DECISION THRESHOLD FOR NC DIAGNOSIS. Performed By: #### C MP #### [facility] [address] [address] [address] Jessie Lomax LACTATE/LACTIC ACIDon 2022 Lactate [Moles/Vol] 1.5 mmol/L Normal 0.4-2.0 [facility] Comment on above: Performed By: #### B LDCX1 #### [facility] [address] [place] [address] Dr. Jessie Lomax Lactate [Moles/Vol] 2.5 mmol/L Critically high 0.4-2.0 [facility] Comment on above: Performed By: #### B LDCX1 #### [facility] [address] [address] [address] Jessie Lomax CARDIAC JUSTINE ADMITon 023 CK [Catalytic activity/Vol] 36 U/L Critically low 39-308 [facility] Comment on above: Performed By: #### A CETON #### [facility] [address] [place] [address] Dr. Jessie Lomax CK.MB [Mass/Vol] 1.50 ng/mL Normal <=3.60 [facility] Comment on above: Performed By: #### A CETON #### [facility] [address] [address] [address] Jessie Lomax HSTROP 7.4 pg/mL Normal 4.0-76.1 [facility] Comment on above: Result Comment: CUT- OFF POINTS HAVE BEEN ESTABLISHED BASED ON THE FOURTH UNIVERSAL DEFINITIONS OF MYOCARDIAL INFARCTION. THE UPPER REFERENCE LIMIT (URL) OF TROPONIN, DEFINED THE 99TH PERCENTILE OF cTnI DISTRIBUTION IN A REFERENCE POPULATION, HAS BEEN CONFIRMED THE DECISION THRESHOLD FOR NC DIAGNOSIS. Performed By: #### A CETON #### [facility] [address] [place] [address] Dr. Jessie Lomax HERLINDA 44 ng/mL Normal 16-96 [facility] Comment on above: Performed By: #### A CETON #### [facility] [address] [place] [address] Dr. Jessie Lomax CBC AUTO DIFFon 10-03-2022 BASO # 0.1 103/ul Normal 0.0-0.1 [facility] Comment on above: Performed By: #### C BC #### [facility] [address] [place] [address] Dr. Jessie Lomax Basophils/100 WBC (Bld) 0.5 % Normal 0.2-2.0 [facility] Comment on above: Performed By: #### C BC #### [facility] [address] [place] [address] Dr. Jessie Lomax EO # 0.0 103/ul Normal 0.0-0.7 [facility] Comment on above: Performed By: #### C BC #### [facility] [address] [place] [address] Dr. Jessie Lomax Eosinophils/100 WBC (Bld) 0.2 % Critically low 0.9-7.0 [facility] Comment on above: Performed By: #### C BC #### [facility] [address] [place] [address] Dr. Jsesie Lomax Erythrocyte distribution width (RBC) [Ratio] 14.6 % Normal 11.0-15.0 [facility] Comment on above: Performed By: #### C BC #### [facility] [address] [place] [address] Dr. Jessie Lomax Hematocrit (Bld) [Volume fraction] 49.6 % Normal 42.0-54.0 [facility] Comment on above: Performed By: #### C BC #### [facility] [address] [place] [address] Dr. Jessie Lomax Hemoglobin (Bld) [Mass/Vol] 16.6 g/dL Normal 14.0-18.0 [facility] Comment on above: Performed By: #### C BC #### [facility] [address] [address] [address] Jessie Lomax IG # 0.10 10e3/ul Critically high 0.00-0.03 [facility] Comment on above: Performed By: #### C BC #### [facility] [address] [address] [address] Jessie Lomax IG % 0.8 % Critically high 0.0-0.5 [facility] Comment on above: Performed By: #### C BC #### [facility] [address] [address] [address] Jessie Lomax LYMPH # 1.0 103/ul Critically low 1.2-3.8 [facility] Comment on above: Performed By: #### C BC #### [facility] [address] [place] [address] Dr. Jessie Lomax Lymphocytes/100 WBC (Bld) 8.2 % Critically low 20.5-60.0 [facility] Comment on above: Performed By: #### C BC #### [facility] [address] [place] [address] Dr. Jessie Lomax MANUAL DIFF REQ NO Normal [facility] Comment on above: Performed By: #### C BC #### [facility] [address] [place] [address] Dr. Jessie Lomax MCH (RBC) [Entitic mass] 31.0 pg Normal 25.9-34.0 [facility] Comment on above: Performed By: #### C BC #### [facility] [address] [place] [address] Dr. Jessie Lomax MCHC (RBC) [Mass/Vol] 33.5 g/dL Normal 29.9-35.2 [facility] Comment on above: Performed By: #### C BC #### [facility] [address] [place] [address] Dr. Jessie Lomax MCV (RBC) [Entitic vol] 92.5 fL Normal 80.0-94.0 [facility] Comment on above: Performed By: #### C BC #### [facility] [address] [place] [address] Dr. Jessie Lomax MONO # 0.6 103/ul Normal 0.3-0.8 [facility] Comment on above: Performed By: #### C BC #### [facility] [address] [place] [address] Dr. Jessie Lomax Monocytes/100 WBC (Bld) 4.9 % Normal 1.7-12.0 [facility] Comment on above: Performed By: #### C BC #### [facility] [address] [place] [address] Dr. Jessie Lomax NEUT # 10.5 103/ul Critically high 1.4-6.5 [facility] Comment on above: Performed By: #### C BC #### [facility] [address] [place] [address] Dr. Jessie Lomax Neutrophils/100 WBC (Bld) 85.4 % Critically high 43.0-75.0 [facility] Comment on above: Performed By: #### C BC #### [facility] [address] [place] [address] Dr. Jessie Lomax Platelet mean volume (Bld) [Entitic vol] 9.3 fL Critically low 9.5-13.5 [facility] Comment on above: Performed By: #### C BC #### [facility] [address] [place] [address] Dr. Jessie Lomax PLT 259 103/ul Normal 150-450 [facility] Comment on above: Performed By: #### C BC #### [facility] [address] [place] [address] Dr. Jessie Lomax RBC 5.36 106/ul Normal 4.70-6.10 [facility] Comment on above: Performed By: #### C BC #### [facility] [address] [place] [address] Dr. Jessie Lomax WBC 12.3 103/ul Critically high 4.0-11.0 [facility] Comment on above: Performed By: #### C BC #### [facility] [address] [place] [address] Dr. Jessie Lomax LACTATE/LACTIC ACIDon 03-19- 2023 Lactate [Moles/Vol] 2.9 mmol/L Critically high 0.4-2.0 [facility] Comment on above: Performed By: #### C MP #### [facility] [address] [place] [address] Dr. Jessie Lomax PROF CHEM 8 (BAS METB)on Anion gap [Moles/Vol] 8.7 mmol/L Normal [facility] Comment on above: Performed By: #### A CETON #### [facility] [address] [address] [address] Jessie Lomax Calcium [Mass/Vol] 8.9 mg/dL Normal 8.5-10.1 [facility] Comment on above: Performed By: #### A CETON #### [facility] [address] [place] [address] Dr. Jessie Lomax Chloride [Moles/Vol] 100 mmol/L Normal 98-107 [facility] Comment on above: Performed By: #### A CETON #### [facility] [address] [place] [address] Dr. Jessie Lomax CO2 [Moles/Vol] 32.6 mmol/L Critically high 21.0-32.0 [facility] Comment on above: Performed By: #### A CETON #### [facility] [address] [place] [address] Dr. Jessie Lomax Creatinine [Mass/Vol] 1.32 mg/dL Critically high 0.70-1.30 [facility] Comment on above: Performed By: #### A CETON #### [facility] [address] [place] [address] Dr. Jessie Lomax EGFR-AF TOGOLESE >60 Normal >=60 [facility] Comment on above: Performed By: #### A CETON #### [facility] [address] [place] [address] Dr. Jessie Lomax EGFR-NON AF TOGOLESE 55 mL/min/1.73m2 Critically low >=60 [facility] Comment on above: Performed By: #### A CETON #### [facility] [address] [address] [address] Jessie Lomax Glucose [Mass/Vol] 360 mg/dL Critically high 74-106 [facility] Comment on above: Performed By: #### A CETON #### [facility] [address] [address] [address] Jessie Lomax Potassium [Moles/Vol] 4.3 mmol/L Normal 3.5-5.1 [facility] Comment on above: Performed By: #### A CETON #### [facility] [address] [address] [address] Jessie Lomax Sodium [Moles/Vol] 137 mmol/L Normal 136-145 [facility] Comment on above: Performed By: #### A CETON #### [facility] [address] [address] [address] Jessie Lomax Urea nitrogen [Mass/Vol] 20.0 mg/dL Critically high 7.0-18.0 [facility] Comment on above: Performed By: #### A CETON #### [facility] [address] [address] [address] Jessie Lomax Urea nitrogen/Creatinine [Mass ratio] 15.2 mg/mg Normal [facility] Comment on above: Performed By: #### A CETON #### [facility] [address] [address] [address] Jessie Lomax XR CHEST 1 Von [...] SOLA SHELL Date: 2022-10-03 20:56 Normal [facility] ER URINE PROFILEon 3 Bilirubin Ql (U) Negative Normal NEGATIVE [facility] Comment on above: Performed By: #### T TYLER #### [facility] [address] [address] [address] Jessie Lomax Clarity (U) CLEAR Normal CLEAR [facility] Comment on above: Performed By: #### T TYLER #### [facility] [address] [place] [address] Dr. Jessie Lomax Color (U) LT. YELLOW Normal YELLOW [facility] Comment on above: Performed By: #### T TYLER #### [facility] [address] [place] [address] Dr. Jessie BROOKS A micrscopic examination will be performed if indicated. Normal [facility] Comment on above: Performed By: #### T TYLER #### [facility] [address] [place] [address] Dr. Jessie Lomax Glucose Ql (U) >1000 Abnormal NEGATIVE [facility] Comment on above: Performed By: #### T TYLER #### [facility] [address] [place] [address] Dr. Jessie Lomax Hemoglobin Ql (U) Negative Normal NEGATIVE [facility] Comment on above: Performed By: #### T TYLER #### [facility] [address] [place] [address] Dr. Jessie Lomax Ketones Ql (U) Negative Normal NEGATIVE [facility] Comment on above: Performed By: #### T TYLER #### [facility] [address] [place] [address] Dr. Jessie Lomax LEUKOCYTES Negative Normal NEGATIVE [facility] Comment on above: Performed By: #### T TYLER #### [facility] [address] [place] [address] Dr. Jessie Lomax Nitrite Ql (U) Negative Normal NEGATIVE [facility] Comment on above: Performed By: #### T TYLER #### [facility] [address] [place] [address] Dr. Jessie Lomax pH (U) 6.0 [pH] Normal 5-9 [facility] Comment on above: Performed By: #### T TYLER #### [facility] [address] [place] [address] Dr. Jessie Lomax SPEC GRAVITY <=1.005 Abnormal 1.005-<=1.025 [facility] Comment on above: Performed By: #### T TYLER #### [facility] [facility] [address] [place] [address] Dr. Jessie Lomax UA PROTEIN Negative Normal NEGATIVE/ TRACE [facility] Comment on above: Performed By: #### T TYLER #### [facility] [address] [place] [address] Dr. Jessie Lomax UR MICRO IND NOT INDICATED Normal [facility] Comment on above: Performed By: #### T TYLER #### [facility] [address] [place] [address] Dr. Jessie Lomax Urobilinogen Qn (U) 0.2 {Angelique'U}/dL Normal 0.2 - 1. 0 [facility] Comment on above: Performed By: #### T TYLER #### [facility] [address] [place] [address] Dr. Jessie Lomax CBC AUTO DIFFon 08-30-2022 BASO # 0.0 103/ul Normal 0.0-0.1 [facility] Comment on above: Performed By: #### C BC #### [facility] [address] [place] [address] Dr. Jessie Lomax Basophils/100 WBC (Bld) 0.1 % Critically low 0.2-2.0 [facility] Comment on above: Performed By: #### C BC #### [facility] [address] [place] [address] Dr. Jessie Lomax EO # 0.0 103/ul Normal 0.0-0.7 [facility] Comment on above: Performed By: #### C BC #### [facility] [address] [place] [address] Dr. Jessie Lomax Eosinophils/100 WBC (Bld) 0.1 % Critically low 0.9-7.0 [facility] Comment on above: Performed By: #### C BC #### [facility] [address] [place] [address] Dr. Jessie Lomax Erythrocyte distribution width (RBC) [Ratio] 13.6 % Normal 11.0-15.0 [facility] Comment on above: Performed By: #### C BC #### [facility] [address] [address] [address] Jessie Lomax Hematocrit (Bld) [Volume fraction] 46.3 % Normal 42.0-54.0 [facility] Comment on above: Performed By: #### C BC #### [facility] [address] [place] [address] Dr. Jessie Lomax Hemoglobin (Bld) [Mass/Vol] 15.4 g/dL Normal 14.0-18.0 [facility] Comment on above: Performed By: #### C BC #### [facility] [address] [place] [address] Dr. Jessie Lomax IG # 0.08 10e3/ul Critically high 0.00-0.03 [facility] Comment on above: Performed By: #### C BC #### [facility] [address] [place] [address] Dr. Jessie Lomax IG % 0.6 % Critically high 0.0-0.5 [facility] Comment on above: Performed By: #### C BC #### [facility] [address] [place] [address] Dr. Jessie Lomax LYMPH # 0.8 103/ul Critically low 1.2-3.8 [facility] Comment on above: Performed By: #### C BC #### [facility] [address] [place] [address] Dr. Jessie Lomax Lymphocytes/100 WBC (Bld) 5.7 % Critically low 20.5-60.0 [facility] Comment on above: Performed By: #### C BC #### [facility] [address] [place] [address] Dr. Jessie Lomax MANUAL DIFF REQ NO Normal [facility] Comment on above: Performed By: #### C BC #### [facility] [address] [place] [address] Dr. Jessie Lomax MCH (RBC) [Entitic mass] 30.2 pg Normal 25.9-34.0 [facility] Comment on above: Performed By: #### C BC #### [facility] [address] [address] [address] Jessie Lomax MCHC (RBC) [Mass/Vol] 33.3 g/dL Normal 29.9-35.2 [facility] Comment on above: Performed By: #### C BC #### [facility] [address] [address] [address] Jessie Lomax MCV (RBC) [Entitic vol] 90.8 fL Normal 80.0-94.0 [facility] Comment on above: Performed By: #### C BC #### [facility] [address] [address] [address] Jessie Lomax MONO # 0.4 103/ul Normal 0.3-0.8 [facility] Comment on above: Performed By: #### C BC #### [facility] [address] [address] [address] Jessie Lomax Monocytes/100 WBC (Bld) 2.9 % Normal 1.7-12.0 [facility] Comment on above: Performed By: #### C BC #### [facility] [address] [address] [address] Jessie Lomax NEUT # 12.3 103/ul Critically high 1.4-6.5 [facility] Comment on above: Performed By: #### C BC #### [facility] [address] [address] [address] Jessie Lomax Neutrophils/100 WBC (Bld) 90.6 % Critically high 43.0-75.0 [facility] Comment on above: Performed By: #### C BC #### [facility] [address] [address] [address] Jessie Lomax Platelet mean volume (Bld) [Entitic vol] 9.3 fL Critically low 9.5-13.5 [facility] Comment on above: Performed By: #### C BC #### [facility] [address] [address] [address] Jessie Lomax PLT 389 103/ul Normal 150-450 [facility] Comment on above: Performed By: #### C BC #### [facility] [address] [place] [address] Dr. Jessie Lomax RBC 5.10 106/ul Normal 4.70-6.10 [facility] Comment on above: Performed By: #### C BC #### [facility] [address] [address] [address] Jessie Lomax WBC 13.6 103/ul Critically high 4.0-11.0 [facility] Comment on above: Performed By: #### C BC #### [facility] [address] [place] [address] Dr. Jessie Lomax POINT OF CARE GLUCOSEon 08-18 Glucose [Mass/Vol] 283 mg/dL Critically high 74-106 [facility] Comment on above: Performed By: #### C BC #### [facility] [address] [place] [address] Dr. Jessie Lomax Glucose [Mass/Vol] 315 mg/dL Critically high 74-106 [facility] Comment on above: Performed By: #### T TYLER #### [facility] [address] [place] [address] Dr. Jessie Lomax PROF 14(COMP METB)on 023 Albumin [Mass/Vol] 3.7 g/dL Normal 3.4-5.0 [facility] Comment on above: Performed By: #### C MP #### [facility] [address] [place] [address] Dr. Jessie Lomax Albumin/Globulin [Mass ratio] 1.0 {ratio} Normal [facility] Comment on above: Performed By: #### C MP #### [facility] [address] [place] [address] Dr. Jessie Lomax ALP [Catalytic activity/Vol] 94 U/L Normal 46-116 [facility] Comment on above: Performed By: #### C MP #### [facility] [address] [place] [address] Dr. Jessie Lomax ALT [Catalytic activity/Vol] 23 U/L Normal 16-63 [facility] Comment on above: Performed By: #### C MP #### [facility] [address] [address] [address] Jessie Lomax Anion gap [Moles/Vol] 13.6 mmol/L Normal [facility] Comment on above: Performed By: #### C MP #### [facility] [address] [address] [address] Jessie Lomax AST [Catalytic activity/Vol] 9 U/L Critically low 15-37 [facility] Comment on above: Performed By: #### C MP #### [facility] [address] [address] [address] Jessie Lomax Bilirubin [Mass/Vol] 0.3 mg/dL Normal 0.2-1.0 [facility] Comment on above: Performed By: #### C MP #### [facility] [address] [address] [address] Jessie Lomax Calcium [Mass/Vol] 9.8 mg/dL Normal 8.5-10.1 [facility] Comment on above: Performed By: #### C MP #### [facility] [address] [address] [address] Jessie Lomax Chloride [Moles/Vol] 99 mmol/L Normal 98-107 [facility] Comment on above: Performed By: #### C MP #### [facility] [address] [address] [address] Jessie Lomax CO2 [Moles/Vol] 29.2 mmol/L Normal 21.0-32.0 [facility] Comment on above: Performed By: #### C MP #### [facility] [address] [address] [address] Jessie Lomax Creatinine [Mass/Vol] 1.17 mg/dL Normal 0.70-1.30 [facility] Comment on above: Performed By: #### C MP #### [facility] [address] [address] [address] Jessie Lomax EGFR-AF TOGOLESE >60 Normal >=60 [facility] Comment on above: Performed By: #### C MP #### [facility] [address] [address] [address] Jessie Lomax EGFR-NON AF TOGOLESE >60 Normal >=60 [facility] Comment on above: Performed By: #### C MP #### [facility] [address] [address] [address] Jessie Lomax Globulin (S) [Mass/Vol] 3.6 g/dL Normal [facility] Comment on above: Performed By: #### C MP #### [facility] [address] [address] [address] Jessie Lomax Glucose [Mass/Vol] 259 mg/dL Critically high 74-106 [facility] Comment on above: Performed By: #### C MP #### [facility] [address] [place] [address] Dr. Jessie Lomax Potassium [Moles/Vol] 3.8 mmol/L Normal 3.5-5.1 [facility] Comment on above: Performed By: #### C MP #### [facility] [address] [place] [address] Dr. Jessie Lomax Protein [Mass/Vol] 7.3 g/dL Normal 6.4-8.2 [facility] Comment on above: Performed By: #### C MP #### [facility] [address] [place] [address] Dr. Jessie Lomax Sodium [Moles/Vol] 138 mmol/L Normal 136-145 [facility] Comment on above: Performed By: #### C MP #### [facility] [address] [address] [address] Jessie Lomax Urea nitrogen [Mass/Vol] 21.0 mg/dL Critically high 7.0-18.0 [facility] Comment on above: Performed By: #### C MP #### [facility] [address] [place] [address] Dr. Jessie Lomax Urea nitrogen/Creatinine [Mass ratio] 17.9 mg/mg Normal [facility] Comment on above: Performed By: #### C MP #### [facility] [address] [place] [address] Dr. Jessie Lomax BLOOD GASES BTYon 08-29-2022 02 MODE HAND HELD NEB Normal [facility] Comment on above: Performed By: #### C MP #### [facility] [address] [place] [address] Dr. Jessie Lomax ALLENS TEST Positive [facility] Comment on above: Performed By: #### C MP #### [facility] [address] [place] [address] Dr. Jessie Lomax Base excess Calc (Bld) [Moles/Vol] 2.1 mmol/L Critically high -2.0-2.0 [facility] Comment on above: Performed By: #### C MP #### [facility] [address] [place] [address] Dr. Jessie Lomax BIPAP PRESSURE [facility] Comment on above: Performed By: #### C MP #### [facility] [address] [place] [address] Dr. Jessie Lomax CPAP [facility] Comment on above: Performed By: #### C MP #### [facility] [address] [place] [address] Dr. Jessie Lomax FIO2 [facility] Comment on above: Performed By: #### C MP #### [facility] [address] [place] [address] Dr. Jessie Lomax HCO3 (Bld) [Moles/Vol] 27.7 mmol/L Critically high 22.0-26.0 [facility] Comment on above: Performed By: #### C MP #### [facility] [address] [place] [address] Dr. Jessie Lomax LPM 6 [facility] Comment on above: Performed By: #### C MP #### [facility] [address] [place] [address] Dr. Jessie Lomax MINUTE VOLUME Normal [facility] Comment on above: Performed By: #### C MP #### [facility] [address] [place] [address] Dr. Jessie Lomax Oxygen (Bld) [Partial pressure] 90.6 mm[Hg] Normal 80.0-100.0 [facility] Comment on above: Performed By: #### C MP #### [facility] [address] [address] [address] Jessie Lomax Oxygen saturation in Blood 95.5 % Normal 95.0-100.0 [facility] Comment on above: Performed By: #### C MP #### [facility] [address] [address] [address] Jessie Lomax PCO2 49.7 mmHg Critically high 35.0-45.0 [facility] Comment on above: Performed By: #### C MP #### [facility] [address] [address] [address] Jessie Lomax PEEP [facility] Comment on above: Performed By: #### C MP #### [facility] [address] [address] [address] Jessie Lomax pH (Bld) 7.354 [pH] Normal 7.350-7.450 [facility] Comment on above: Performed By: #### C MP #### [facility] [address] [address] [address] Jessie Lomax PIP [facility] Comment on above: Performed By: #### C MP #### [facility] [address] [address] [address] Jessie Lomax PS [facility] Comment on above: Performed By: #### C MP #### [facility] [address] [address] [address] Jessie Lomax PUNCTURE SITE RR Normal [facility] Comment on above: Performed By: #### C MP #### [facility] [address] [place] [address] Dr. Jessie Lomax RATE [facility] Comment on above: Performed By: #### C MP #### [facility] [address] [place] [address] Dr. Jessie Lomax VENT MODE [facility] Comment on above: Performed By: #### C MP #### [facility] [address] [place] [address] [facility] Comment on above: Performed By: #### C MP #### [facility] [address] [place] [address] Dr. Jessie Lomax BNPon 08-29-2022 Natriuretic peptide B (Bld) [Mass/Vol] 130.0 pg/mL Normal <=900.0 [facility] Comment on above: Performed By: #### B [id number] #### [facility] [address] [place] [address] Dr. Jessie Lomax CARDIAC JUSTINE ADMITon 023 CK [Catalytic activity/Vol] 41 U/L Normal 39-308 [facility] Comment on above: Performed By: #### B [id number] #### [facility] [address] [place] [address] Dr. Jessie Lomax CK.MB [Mass/Vol] 1.87 ng/mL Normal <=3.60 [facility] Comment on above: Performed By: #### B [id number] #### [facility] [address] [place] [address] Dr. Jessie Lomax HSTROP 27.3 pg/mL Normal 4.0-76.1 [facility] Comment on above: Result Comment: CUT- OFF POINTS HAVE BEEN ESTABLISHED BASED ON THE FOURTH UNIVERSAL DEFINITIONS OF MYOCARDIAL INFARCTION. THE UPPER REFERENCE LIMIT (URL) OF TROPONIN, DEFINED THE 99TH PERCENTILE OF cTnI DISTRIBUTION IN A REFERENCE POPULATION, HAS BEEN CONFIRMED THE DECISION THRESHOLD FOR NC DIAGNOSIS. Performed By: #### B [id number] #### [facility] [address] [place] [address] Dr. Jessie Lomax HERLINDA 36 ng/mL Normal 16-96 [facility] Comment on above: Performed By: #### B [id number] #### [facility] [address] [place] [address] Dr. Jessie Lomax CBC AUTO DIFFon 08-29-2022 BASO # 0.1 103/ul Normal 0.0-0.1 [facility] Comment on above: Performed By: #### C BC #### [facility] [address] [place] [address] Dr. Jessie Lomax Basophils/100 WBC (Bld) 0.7 % Normal 0.2-2.0 [facility] Comment on above: Performed By: #### C BC #### [facility] [address] [place] [address] Dr. Jessie Lomax EO # 0.1 103/ul Normal 0.0-0.7 [facility] Comment on above: Performed By: #### C BC #### [facility] [address] [place] [address] Dr. Jessie Lomax Eosinophils/100 WBC (Bld) 0.8 % Critically low 0.9-7.0 [facility] Comment on above: Performed By: #### C BC #### [facility] [address] [place] [address] Dr. Jessie Lomax Erythrocyte distribution width (RBC) [Ratio] 13.6 % Normal 11.0-15.0 [facility] Comment on above: Performed By: #### C BC #### [facility] [address] [place] [address] Dr. Jessie Lomax Hematocrit (Bld) [Volume fraction] 51.6 % Normal 42.0-54.0 [facility] Comment on above: Performed By: #### C BC #### [facility] [address] [place] [address] Dr. Jessie Lomax Hemoglobin (Bld) [Mass/Vol] 17.1 g/dL Normal 14.0-18.0 [facility] Comment on above: Performed By: #### C BC #### [facility] [address] [place] [address] Dr. Jessie Lomax IG # 0.05 10e3/ul Critically high 0.00-0.03 [facility] Comment on above: Performed By: #### C BC #### [facility] [address] [place] [address] Dr. Jessie Lomax IG % 0.5 % Normal 0.0-0.5 [facility] Comment on above: Performed By: #### C BC #### [facility] [address] [place] [address] Dr. Jessie Lomax LYMPH # 2.1 103/ul Normal 1.2-3.8 [facility] Comment on above: Performed By: #### C BC #### [facility] [address] [place] [address] Dr. Jessie Lomax Lymphocytes/100 WBC (Bld) 20.9 % Normal 20.5-60.0 [facility] Comment on above: Performed By: #### C BC #### [facility] [address] [place] [address] Dr. Jessie Lomax MANUAL DIFF REQ NO Normal [facility] Comment on above: Performed By: #### C BC #### [facility] [address] [place] [address] Dr. Jessie Lomax MCH (RBC) [Entitic mass] 30.7 pg Normal 25.9-34.0 [facility] Comment on above: Performed By: #### C BC #### [facility] [address] [place] [address] Dr. Jessie Lomax MCHC (RBC) [Mass/Vol] 33.1 g/dL Normal 29.9-35.2 [facility] Comment on above: Performed By: #### C BC #### [facility] [address] [place] [address] Dr. Jessie Lomax MCV (RBC) [Entitic vol] 92.6 fL Normal 80.0-94.0 [facility] Comment on above: Performed By: #### C BC #### [facility] [address] [place] [address] Dr. Jessie Lomax MONO # 1.0 103/ul Critically high 0.3-0.8 [facility] Comment on above: Performed By: #### C BC #### [facility] [address] [place] [address] Dr. Jessie Lomax Monocytes/100 WBC (Bld) 9.5 % Normal 1.7-12.0 [facility] Comment on above: Performed By: #### C BC #### [facility] [address] [place] [address] Dr. Jessie Lomax NEUT # 6.7 103/ul Critically high 1.4-6.5 [facility] Comment on above: Performed By: #### C BC #### [facility] [address] [place] [address] Dr. Jessie Lomax Neutrophils/100 WBC (Bld) 67.6 % Normal 43.0-75.0 [facility] Comment on above: Performed By: #### C BC #### [facility] [address] [place] [address] Dr. Jessie Lomax Platelet mean volume (Bld) [Entitic vol] 9.5 fL Normal 9.5-13.5 [facility] Comment on above: Performed By: #### C BC #### [facility] [address] [place] [address] Dr. Jessie Lomax PLT 407 103/ul Normal 150-450 [facility] Comment on above: Performed By: #### C BC #### [facility] [address] [place] [address] Dr. Jessie Lomax RBC 5.57 106/ul Normal 4.70-6.10 [facility] Comment on above: Performed By: #### C BC #### [facility] [address] [place] [address] Dr. Jessie Lomax WBC 10.0 103/ul Normal 4.0-11.0 [facility] Comment on above: Performed By: #### C BC #### [facility] [address] [place] [address] Dr. Jessie Lomax CULTURE BLOODon 08-29-2022 Microscopic examination of blood, culture Culture Observations: NO GROWTH AT 5 DAYS. Normal [facility] Comment on above: Performed By: #### C MP #### [facility] [address] [place] [address] Dr. Jessie Lomax Microscopic examination of blood, culture Culture Observations: NO GROWTH AT 5 DAYS. Normal [facility] Comment on above: Performed By: #### B [id number] #### [facility] [address] [place] [address] Dr. Jessie Lomax Covid-19 PCR (CVDTB)on 08-18 SARS-CoV-2 (COVID-19) RNA YOLANDA+probe Ql (Unsp spec) Not detected Normal NOT DETECTED [facility] Comment on above: Result Comment: When diagnostic [...] for this test is supported by the Protective Signal Installer of Health and Human Service's declaration that [...] used). Performed By: #### B LDCX1 #### [facility] [address] [place] [address] Dr. Jessie Lomax ER URINE PROFILEon 3 Bilirubin Ql (U) Negative Normal NEGATIVE [facility] [facility] Comment on above: Performed By: #### A CETON #### [facility] [address] [place] [address] Dr. Jessie Lomax Clarity (U) CLEAR Normal CLEAR [facility] Comment on above: Performed By: #### A CETON #### [facility] [address] [place] [address] Dr. Jessie Lomax Color (U) YELLOW Normal YELLOW [facility] Comment on above: Performed By: #### A CETON #### [facility] [address] [place] [address] Dr. Jessie Lomax ERURIVASD A micrscopic examination will be performed if indicated. Normal [facility] Comment on above: Performed By: #### A CETON #### [facility] [address] [place] [address] Dr. Jessie Lomax Glucose Ql (U) 500 mg/dl Abnormal NEGATIVE [facility] Comment on above: Performed By: #### A CETON #### [facility] [address] [place] [address] Dr. Jessie Lomax Hemoglobin Ql (U) Negative Normal NEGATIVE [facility] Comment on above: Performed By: #### A CETON #### [facility] [address] [place] [address] Dr. Jessie Lomax Ketones Ql (U) TRACE Abnormal NEGATIVE [facility] Comment on above: Performed By: #### A CETON #### [facility] [address] [place] [address] Dr. Jessie Lomax LEUKOCYTES Negative Normal NEGATIVE [facility] Comment on above: Performed By: #### A CETON #### [facility] [address] [place] [address] Dr. Jessie Lomax Nitrite Ql (U) Negative Normal NEGATIVE [facility] Comment on above: Performed By: #### A CETON #### [facility] [address] [place] [address] Dr. Jessie Lomax pH (U) 5.5 [pH] Normal 5-9 [facility] Comment on above: Performed By: #### A CETON #### [facility] [address] [place] [address] Dr. Jessie Lomax SPEC GRAVITY >=1.030 Abnormal 1.005-<=1.025 [facility] Comment on above: Performed By: #### A CETON #### [facility] [address] [place] [address] Dr. Jessie Lomax UA PROTEIN Negative Normal NEGATIVE/ TRACE [facility] Comment on above: Performed By: #### A CETON #### [facility] [address] [place] [address] Dr. Jessie Lomax UR MICRO IND NOT INDICATED Normal [facility] Comment on above: Performed By: #### A CETON #### [facility] [address] [place] [address] Dr. Jessie Lomax Urobilinogen Qn (U) 0.2 {Angelique'U}/dL Normal 0.2 - 1. 0 [facility] Comment on above: Performed By: #### A CETON #### [facility] [address] [place] [address] Dr. Jessie Lomax LACTATE/LACTIC ACIDon 2022 Lactate [Moles/Vol] 1.6 mmol/L Normal 0.4-1.9 [facility] Comment on above: Performed By: #### L ACT #### [facility] [address] [place] [address] Dr. Jessie Lomax POINT OF CARE GLUCOSEon 08-18 Glucose [Mass/Vol] 330 mg/dL Critically high [facility]106 [facility] Comment on above: Performed By: #### A CETON #### [facility] [address] [place] [address] Dr. Jessie Lomax Glucose [Mass/Vol] 284 mg/dL Critically high [address] [place] [address] Comment on above: Performed By: #### C BC #### [facility] [address] [place] [address] Dr. Jessie Lmoax Glucose [Mass/Vol] 379 mg/dL Critically high [address] [place] [address] Comment on above: Performed By: #### B LDCX1 #### [facility] [address] [place] [address] Dr. Jessie Lomax Glucose [Mass/Vol] 276 mg/dL Critically high [address] [place] [address] Comment on above: Performed By: #### T TYLER #### [facility] [address] [place] [address] Dr. Jessie Lomax PROF 14(COMP METB)on 023 Albumin [Mass/Vol] 3.8 g/dL Normal 3.4-5.0 [facility] Comment on above: Performed By: #### B LDCX1 #### [facility] [address] [place] [address] Dr. Jessie Lomax Albumin/Globulin [Mass ratio] 1.0 {ratio} Normal [facility] Comment on above: Performed By: #### B LDCX1 #### [facility] [address] [place] [address] Dr. Jessie Lomax ALP [Catalytic activity/Vol] 106 U/L Normal 46-116 [facility] Comment on above: Performed By: #### B LDCX1 #### [facility] [address] [place] [address] Dr. Jessie Lomax ALT [Catalytic activity/Vol] 27 U/L Normal 16-63 [facility] Comment on above: Performed By: #### B LDCX1 #### [facility] [address] [place] [address] Dr. Jessie Lomax Anion gap [Moles/Vol] 12.0 mmol/L Normal [facility] Comment on above: Performed By: #### B LDCX1 #### [facility] [address] [place] [address] Dr. Jessie Lomax AST [Catalytic activity/Vol] 15 U/L Normal 15-37 [facility] Comment on above: Performed By: #### B LDCX1 #### [facility] [address] [place] [address] Dr. Jessie Lomax Bilirubin [Mass/Vol] 0.3 mg/dL Normal 0.2-1.0 [facility] Comment on above: Performed By: #### B LDCX1 #### [facility] [address] [place] [address] Dr. Jessie Lomax Calcium [Mass/Vol] 10.0 mg/dL Normal 8.5-10.1 [facility] Comment on above: Performed By: #### B LDCX1 #### [facility] [address] [place] [address] Dr. Jessie Lomax Chloride [Moles/Vol] 101 mmol/L Normal 98-107 [facility] Comment on above: Performed By: #### B LDCX1 #### [facility] [address] [place] [address] Dr. Jessie Lomax CO2 [Moles/Vol] 32.4 mmol/L Critically high 21.0-32.0 [facility] Comment on above: Performed By: #### B LDCX1 #### [facility] [address] [place] [address] Dr. Jessie Lomax Creatinine [Mass/Vol] 1.14 mg/dL Normal 0.70-1.30 [facility] Comment on above: Performed By: #### B LDCX1 #### [facility] [address] [place] [address] Dr. Jessie Lomax EGFR-AF TOGOLESE >60 Normal >=60 [facility] Comment on above: Performed By: #### B LDCX1 #### [facility] [address] [address] [address] Jessie Lomax EGFR-NON AF TOGOLESE >60 Normal >=60 [facility] Comment on above: Performed By: #### B LDCX1 #### [facility] [address] [place] [address] Dr. Jessie Lomax Globulin (S) [Mass/Vol] 3.7 g/dL Normal [facility] Comment on above: Performed By: #### B LDCX1 #### [facility] [address] [place] [address] Dr. Jessie Lomax Glucose [Mass/Vol] 204 mg/dL Critically high 74-106 [facility] Comment on above: Performed By: #### B LDCX1 #### [facility] [address] [place] [address] Dr. Jessie Lomax Potassium [Moles/Vol] 4.4 mmol/L Normal 3.5-5.1 [facility] Comment on above: Performed By: #### B LDCX1 #### [facility] [address] [place] [address] Dr. Jessie Lomax Protein [Mass/Vol] 7.5 g/dL Normal 6.4-8.2 [facility] Comment on above: Performed By: #### B [id number] #### [facility] [address] [place] [address] Dr. Jessie Lomax Sodium [Moles/Vol] 141 mmol/L Normal 136-145 [facility] Comment on above: Performed By: #### B LDCX1 #### [facility] [address] [place] [address] Dr. Jessie Lomax Urea nitrogen [Mass/Vol] 23.0 mg/dL Critically high 7.0-18.0 [facility] Comment on above: Performed By: #### B [id number] #### [facility] [address] [address] [address] Jessie Lomax Urea nitrogen/Creatinine [Mass ratio] 20.2 mg/mg Normal [facility] Comment on above: Performed By: #### B [id number] #### [facility] [address] [id number] [address] Jessie Lomax THEOPHYLLINEon 08-29-2022 THEOPHYLLINE <2.0 Critically low 10.0-20.0 [facility] Comment on above: Performed By: #### B LDCX1 #### [facility] [address] [place] [address] Dr. Jessie Lomax XR CHEST 1 Von [...] YADIRA BALLESTEROS Date: 2022-08-29 02:03 Normal [facility] ACETONE SERUMon 08-17-2022 ACETONE Negative Normal NEGATIVE [facility] Comment on above: Performed By: #### A CETON #### [facility] [address] [place] [address] Dr. Jessie Lomax BNPon 08-17-2022 Natriuretic peptide B (Bld) [Mass/Vol] 294.0 pg/mL Normal <=900.0 [facility] Comment on above: Performed By: #### A CETON #### [facility] [address] [address] [address] Jessie Lomax CBC AUTO DIFFon 08-17-2022 BASO # 0.1 103/ul Normal 0.0-0.1 [facility] Comment on above: Performed By: #### C BC #### [facility] [address] [place] [address] Dr. Jessie Lomax Basophils/100 WBC (Bld) 0.7 % Normal 0.2-2.0 [facility] Comment on above: Performed By: #### C BC #### [facility] [address] [place] [address] Dr. Jessie Lomax EO # 0.1 103/ul Normal 0.0-0.7 [facility] Comment on above: Performed By: #### C BC #### [facility] [address] [place] [address] Dr. Jessie Lomax Eosinophils/100 WBC (Bld) 0.9 % Normal 0.9-7.0 [facility] Comment on above: Performed By: #### C BC #### [facility] [address] [place] [address] Dr. Jessie Lomax Erythrocyte distribution width (RBC) [Ratio] 13.4 % Normal 11.0-15.0 [facility] Comment on above: Performed By: #### C BC #### [facility] [address] [place] [address] Dr. Jessie Lomax Hematocrit (Bld) [Volume fraction] 43.2 % Normal 42.0-54.0 [facility] Comment on above: Performed By: #### C BC #### [facility] [address] [place] [address] Dr. Jessie Lomax Hemoglobin (Bld) [Mass/Vol] 14.5 g/dL Normal 14.0-18.0 [facility] Comment on above: Performed By: #### C BC #### [facility] [address] [place] [address] Dr. Jessie Lomax IG # 0.04 10e3/ul Critically high 0.00-0.03 [facility] Comment on above: Performed By: #### C BC #### [facility] [address] [place] [address] Dr. Jessie Lomax IG % 0.5 % Normal 0.0-0.5 [facility] Comment on above: Performed By: #### C BC #### [facility] [address] [place] [address] Dr. Jessie Lomax LYMPH # 1.9 103/ul Normal 1.2-3.8 [facility] Comment on above: Performed By: #### C BC #### [facility] [address] [place] [address] Dr. Jessie Lomax Lymphocytes/100 WBC (Bld) 22.1 % Normal 20.5-60.0 [facility] Comment on above: Performed By: #### C BC #### [facility] [address] [place] [address] Dr. Jessie Lomax MANUAL DIFF REQ NO Normal [facility] Comment on above: Performed By: #### C BC #### [facility] [address] [place] [address] Dr. Jessie Lomax MCH (RBC) [Entitic mass] 30.7 pg Normal 25.9-34.0 [facility] Comment on above: Performed By: #### C BC #### [facility] [address] [place] [address] Dr. Jessie Lomax MCHC (RBC) [Mass/Vol] 33.6 g/dL Normal 29.9-35.2 [facility] Comment on above: Performed By: #### C BC #### [facility] [address] [place] [address] Dr. Jessie Lomax MCV (RBC) [Entitic vol] 91.5 fL Normal 80.0-94.0 [facility] Comment on above: Performed By: #### C BC #### [facility] [address] [place] [address] Dr. Jessie Lomax MONO # 0.7 103/ul Normal 0.3-0.8 [facility] Comment on above: Performed By: #### C BC #### [facility] [address] [place] [address] Dr. Jessie Lomax Monocytes/100 WBC (Bld) 7.7 % Normal 1.7-12.0 [facility] Comment on above: Performed By: #### C BC #### [facility] [address] [place] [address] Dr. Jessie Lomax NEUT # 5.8 103/ul Normal 1.4-6.5 [facility] Comment on above: Performed By: #### C BC #### [facility] [address] [place] [address] Dr. Jessie Lomax Neutrophils/100 WBC (Bld) 68.1 % Normal 43.0-75.0 [facility] Comment on above: Performed By: #### C BC #### [facility] [address] [place] [address] Dr. Jessie Lomax Platelet mean volume (Bld) [Entitic vol] 9.0 fL Critically low 9.5-13.5 [facility] Comment on above: Performed By: #### C BC #### [facility] [address] [place] [address] Dr. Jessie Lomax PLT 275 103/ul Normal 150-450 [facility] Comment on above: Performed By: #### C BC #### [facility] [address] [place] [address] Dr. Jessie Lomax RBC 4.72 106/ul Normal 4.70-6.10 [facility] Comment on above: Performed By: #### C BC #### [facility] [address] [place] [address] Dr. Jessie Lomax WBC 8.6 103/ul Normal 4.0-11.0 [facility] Comment on above: Performed By: #### C BC #### [facility] [address] [place] [address] Dr. Jessie Lomax CTA CHEST WO W [...] by: DAVID GIBBS Date: 2022-08-17 17:23 Normal [facility] CULTURE BLOODon 08-17-2022 Microscopic examination of blood, culture Culture Observations: NO GROWTH AT 5 DAYS. Normal [facility] Comment on above: Performed By: #### C MP #### [facility] [address] [place] [address] Dr. Jessie Lomax Microscopic examination of blood, culture Culture Observations: NO GROWTH AT 5 DAYS. Normal [facility] Comment on above: Performed By: #### B LDCX1 #### [facility] [address] [place] [address] Dr. Jessie Lomxa Covid-19 PCR ([facility])on 07-20 SARS-CoV-2 (COVID-19) RNA YOLANDA+probe Ql (Unsp spec) Not detected Normal NOT DETECTED [facility] Comment on above: Result Comment: When diagnostic [...] for this test is supported by the Protective Signal Installer of Health and Human Service's declaration that [...] used). Performed By: #### C BC #### [facility] [address] [place] [address] Dr. Jessie Lomax LACTATE/LACTIC ACIDon 2022 Lactate [Moles/Vol] 2.0 mmol/L Critically high 0.4-1.9 [facility] Comment on above: Performed By: #### C BC #### [facility] [address] [place] [address] Dr. Jessie Lomax PH VENOUS BLOODon 08-17-2022 PCO2 VENOUS 44.5 mmHg Normal 40.0-52.0 [facility] Comment on above: Performed By: #### C BC #### [facility] [address] [place] [address] Dr. Jessie Lomax pH VENOUS 7.433 Critically high 7.330-7.430 [facility] Comment on above: Performed By: #### C BC #### [facility] [address] [place] [address] Dr. Jessie Lomax PROF 14(COMP METB)on 023 Albumin [Mass/Vol] 3.4 g/dL Normal 3.4-5.0 [facility] Comment on above: Performed By: #### C BC #### [facility] [address] [place] [address] Dr. Jessie Lomax Albumin/Globulin [Mass ratio] 1.1 {ratio} Normal [facility] Comment on above: Performed By: #### C BC #### [facility] [address] [place] [address] Dr. Jessie Lomax ALP [Catalytic activity/Vol] 90 U/L Normal 46-116 [facility] Comment on above: Performed By: #### C BC #### [facility] [address] [place] [address] Dr. Jessie Lomax ALT [Catalytic activity/Vol] 26 U/L Normal 16-63 [facility] Comment on above: Performed By: #### C BC #### [facility] [address] [address] [address] Jessie Lomax Anion gap [Moles/Vol] 11.1 mmol/L Normal [facility] Comment on above: Performed By: #### C BC #### [facility] [address] [address] [address] Jessie Lomax AST [Catalytic activity/Vol] 9 U/L Critically low 15-37 [facility] Comment on above: Performed By: #### C BC #### [facility] [address] [address] [address] Jessie Lomax Bilirubin [Mass/Vol] 0.2 mg/dL Normal 0.2-1.0 [facility] Comment on above: Performed By: #### C BC #### [facility] [address] [place] [address] Dr. Jessie Lomax Calcium [Mass/Vol] 9.0 mg/dL Normal 8.5-10.1 [facility] Comment on above: Performed By: #### C BC #### [facility] [address] [address] [address] Jessie Lomax Chloride [Moles/Vol] 103 mmol/L Normal 98-107 [facility] Comment on above: Performed By: #### C BC #### [facility] [address] [place] [address] Dr. Jessie Lomax CO2 [Moles/Vol] 31.5 mmol/L Normal 21.0-32.0 [facility] Comment on above: Performed By: #### C BC #### [facility] [address] [address] [address] Jessie Lomax Creatinine [Mass/Vol] 0.94 mg/dL Normal 0.70-1.30 [facility] Comment on above: Performed By: #### C BC #### [facility] [address] [place] [address] Dr. Jessie Lomax EGFR-AF TOGOLESE >60 Normal >=60 [facility] Comment on above: Performed By: #### C BC #### [facility] [address] [place] [address] Dr. Jessie Lomax EGFR-NON AF TOGOLESE >60 Normal >=60 [facility] Comment on above: Performed By: #### C BC #### [facility] [address] [place] [address] Dr. Jessie Lomax Globulin (S) [Mass/Vol] 3.2 g/dL Normal [facility] Comment on above: Performed By: #### C BC #### [facility] [address] [place] [address] Dr. Jessie Lomax Glucose [Mass/Vol] 124 mg/dL Critically high 74-106 [facility] Comment on above: Performed By: #### C BC #### [facility] [address] [place] [address] Dr. Jessie Lomax Potassium [Moles/Vol] 3.6 mmol/L Normal 3.5-5.1 [facility] Comment on above: Performed By: #### C BC #### [facility] [address] [place] [address] Dr. Jessie Lomax Protein [Mass/Vol] 6.6 g/dL Normal 6.4-8.2 [facility] Comment on above: Performed By: #### C BC #### [facility] [address] [place] [address] Dr. Jessie Lomax Sodium [Moles/Vol] 142 mmol/L Normal 136-145 [facility] Comment on above: Performed By: #### C BC #### [facility] [address] [place] [address] Dr. Jessie Lomax Urea nitrogen [Mass/Vol] 14.0 mg/dL Normal 7.0-18.0 [facility] Comment on above: Performed By: #### C BC #### [facility] [address] [place] [address] Dr. Jessie Lomax Urea nitrogen/Creatinine [Mass ratio] 14.9 mg/mg Normal [facility] Comment on above: Performed By: #### C BC #### [facility] [address] [place] [address] Dr. Jessie Lomax PROTIMEon 08-17-2022 INR Coag (PPP) [Relative time] {INR} Normal [facility] Comment on above: Performed By: #### B LDCX1 #### [facility] [address] [place] [address] Dr. Jessie Lomax INR GUIDELINES SEE BELOW Normal [facility] Comment on above: Result Comment: VANESSA RED INR: 2.0 - 3.0 CONDITIONS NOT LISTED BELOW 2.5 - 3.5 FOR PROSTHETIC HEART VALVE REPLACEMENT 2.5 - 3.5 RECURRENT THROMBOSIS Performed By: #### B LDCX1 #### [facility] [address] [address] [address] Jessie Lomax PT Coag (PPP) [Time] 9.7 s Normal 9.0-11.6 [facility] Comment on above: Performed By: #### B LDCX1 #### [facility] [address] [place] [address] Dr. Jessie Lomax PTTon 08-17-2022 aPTT Coag (Bld) [Time] 23.4 s Normal 22.3-36.2 [facility] Comment on above: Performed By: #### B LDCX1 #### [facility] [address] [place] [address] Dr. Jessie Lomax TROPONIN, HIGH SENSITIVITYon 08-17-2022 HSTROP 14.6 pg/mL Normal 4.0-76.1 [facility] Comment on above: Result Comment: CUT- OFF POINTS HAVE BEEN ESTABLISHED BASED ON THE FOURTH UNIVERSAL DEFINITIONS OF MYOCARDIAL INFARCTION. THE UPPER REFERENCE LIMIT (URL) OF TROPONIN, DEFINED THE 99TH PERCENTILE OF cTnI DISTRIBUTION IN A REFERENCE POPULATION, HAS BEEN CONFIRMED THE DECISION THRESHOLD FOR NC DIAGNOSIS. Performed By: #### A CETON #### [facility] [address] [address] [address] Jessie Lomax TSHon 08-17-2022 TSH 1.079 uIU/mL Normal 0.358-3.740 [facility] Comment on above: Performed By: #### C BC #### [facility] [address] [place] [address] Dr. Jessie Lomax THEOPHYLLINEon 08-10-2022 THEOPHYLLINE 11.3 ug/mL Normal 10.0-20.0 [facility] Comment on above: Performed By: #### T TYLER #### [facility] [address] [place] [address] Dr. Jessie Lomax CBC AUTO DIFFon 07-02-2022 BASO # 0.0 103/ul Normal 0.0-0.1 [facility] Comment on above: Performed By: #### T TYLER #### [facility] [address] [place] [address] Dr. Jessie Lomax Basophils/100 WBC (Bld) 0.1 % Critically low 0.2-2.0 [facility] Comment on above: Performed By: #### T TYLER #### [facility] [address] [place] [address] Dr. Jessie Lomax EO # 0.0 103/ul Normal 0.0-0.7 [facility] Comment on above: Performed By: #### T TYLER #### [facility] [address] [place] [address] Dr. Jessie Lomax Eosinophils/100 WBC (Bld) 0.1 % Critically low 0.9-7.0 [facility] Comment on above: Performed By: #### T TYLER #### [facility] [address] [place] [address] Dr. Jessie Lomax Erythrocyte distribution width (RBC) [Ratio] 13.6 % Normal 11.0-15.0 [facility] Comment on above: Performed By: #### T TYLER #### [facility] [address] [place] [address] Dr. Jessie Lomax Hematocrit (Bld) [Volume fraction] 44.4 % Normal 42.0-54.0 [facility] Comment on above: Performed By: #### T TYLER #### [facility] [address] [place] [address] Dr. Jessie Lomax Hemoglobin (Bld) [Mass/Vol] 14.9 g/dL Normal 14.0-18.0 [facility] Comment on above: Performed By: #### T TYLER #### [facility] [address] [address] [address] Jessie Lomax IG # 0.11 10e3/ul Critically high 0.00-0.03 [facility] Comment on above: Performed By: #### T TYLER #### [facility] [address] [address] [address] Jessie Lomax IG % 0.7 % Critically high 0.0-0.5 [facility] Comment on above: Performed By: #### T TYLER #### [facility] [address] [address] [address] Jessie Lomax LYMPH # 0.8 103/ul Critically low 1.2-3.8 [facility] Comment on above: Performed By: #### T TYLER #### [facility] [address] [place] [address] Dr. Jessie Lomax Lymphocytes/100 WBC (Bld) 5.1 % Critically low 20.5-60.0 [facility] Comment on above: Performed By: #### T TYLER #### [facility] [address] [address] [address] Jessie Lomax MANUAL DIFF REQ NO Normal [facility] Comment on above: Performed By: #### T TYLER #### [facility] [address] [address] [address] Jessie Lomax MCH (RBC) [Entitic mass] 31.1 pg Normal 25.9-34.0 [facility] Comment on above: Performed By: #### T TYLER #### [facility] [address] [address] [address] Jessie Lomax MCHC (RBC) [Mass/Vol] 33.6 g/dL Normal 29.9-35.2 [facility] Comment on above: Performed By: #### T TYLER #### [facility] [address] [address] [address] Jessie Lomax MCV (RBC) [Entitic vol] 92.7 fL Normal 80.0-94.0 [facility] Comment on above: Performed By: #### T TYLER #### [facility] [address] [address] [address] Jessie Lomax MONO # 0.4 103/ul Normal 0.3-0.8 [facility] Comment on above: Performed By: #### T TYLER #### [facility] [address] [place] [address] Dr. Jessie Lomax Monocytes/100 WBC (Bld) 2.6 % Normal 1.7-12.0 [facility] Comment on above: Performed By: #### T TYLER #### [facility] [address] [place] [address] Dr. Jessie Lomax NEUT # 13.8 103/ul Critically high 1.4-6.5 [facility] Comment on above: Performed By: #### T TYLER #### [facility] [address] [place] [address] Dr. Jessie Lomax Neutrophils/100 WBC (Bld) 91.4 % Critically high 43.0-75.0 [facility] Comment on above: Performed By: #### T TYLER #### [facility] [address] [place] [address] Dr. Jessie Lomax Platelet mean volume (Bld) [Entitic vol] 9.9 fL Normal 9.5-13.5 [facility] Comment on above: Performed By: #### T TYLER #### [facility] [address] [place] [address] Dr. Jessie Lomax PLT 300 103/ul Normal 150-450 [facility] Comment on above: Performed By: #### T TYLER #### [facility] [address] [place] [address] Dr. Jessie Lomax RBC 4.79 106/ul Normal 4.70-6.10 [facility] Comment on above: Performed By: #### T TYLER #### [facility] [address] [place] [address] Dr. Jessie Lomax WBC 15.1 103/ul Critically high 4.0-11.0 [facility] Comment on above: Performed By: #### T TYLER #### [facility] [address] [place] [address] Dr. Jessie Lomax POINT OF CARE GLUCOSEon 06-17 Glucose [Mass/Vol] 288 mg/dL Critically high 74-106 [facility] Comment on above: Performed By: #### C BC #### [facility] [address] [place] [address] Dr. Jessie Lomax Glucose [Mass/Vol] 280 mg/dL Critically high 74-106 [facility] Comment on above: Performed By: #### T TYLER #### [facility] [address] [place] [address] Dr. Jessie Lomax PROF 14(COMP METB)on 022 Albumin [Mass/Vol] 3.7 g/dL Normal 3.4-5.0 [facility] Comment on above: Performed By: #### C MP #### [facility] [address] [place] [address] Dr. Jessie Lomax Albumin/Globulin [Mass ratio] 1.1 {ratio} Normal [facility] Comment on above: Performed By: #### C MP #### [facility] [address] [place] [address] Dr. Jessie Lomax ALP [Catalytic activity/Vol] 73 U/L Normal 46-116 [facility] Comment on above: Performed By: #### C MP #### [facility] [address] [place] [address] Dr. Jessie Lomax ALT [Catalytic activity/Vol] 22 U/L Normal 16-63 [facility] Comment on above: Performed By: #### C MP #### [facility] [address] [place] [address] Dr. Jessie Lomax Anion gap [Moles/Vol] 13.4 mmol/L Normal [facility] Comment on above: Performed By: #### C MP #### [facility] [address] [place] [address] Dr. Jessie Lomax AST [Catalytic activity/Vol] 16 U/L Normal 15-37 [facility] Comment on above: Performed By: #### C MP #### [facility] [address] [place] [address] Dr. Jessie Lomax Bilirubin [Mass/Vol] 0.3 mg/dL Normal 0.2-1.0 [facility] Comment on above: Performed By: #### C MP #### [facility] [address] [address] [address] Jessie Lomax Calcium [Mass/Vol] 9.3 mg/dL Normal 8.5-10.1 [facility] Comment on above: Performed By: #### C MP #### [facility] [address] [address] [address] Jessie Lomax Chloride [Moles/Vol] 98 mmol/L Normal 98-107 [facility] Comment on above: Performed By: #### C MP #### [facility] [address] [address] [address] Jessie Lomax CO2 [Moles/Vol] 29.9 mmol/L Normal 21.0-32.0 [facility] Comment on above: Performed By: #### C MP #### [facility] [address] [address] [address] Jessie Lomax Creatinine [Mass/Vol] 1.18 mg/dL Normal 0.70-1.30 [facility] Comment on above: Performed By: #### C MP #### [facility] [address] [place] [address] Dr. Jessie Lomax EGFR-AF TOGOLESE >60 Normal >=60 [facility] Comment on above: Performed By: #### C MP #### [facility] [address] [address] [address] Jessie Lomax EGFR-NON AF TOGOLESE >60 Normal >=60 [facility] Comment on above: Performed By: #### C MP #### [facility] [address] [address] [address] Jessie Lomax Globulin (S) [Mass/Vol] 3.3 g/dL Normal [facility] Comment on above: Performed By: #### C MP #### [facility] [address] [address] [address] Jessie Lomax Glucose [Mass/Vol] 329 mg/dL Critically high 74-106 [facility] Comment on above: Performed By: #### C MP #### [facility] [address] [address] [address] Jessie Lomax Potassium [Moles/Vol] 4.3 mmol/L Normal 3.5-5.1 [facility] Comment on above: Performed By: #### C MP #### [facility] [address] [address] [address] Jessie Lomax Protein [Mass/Vol] 7.0 g/dL Normal 6.4-8.2 [facility] Comment on above: Performed By: #### C MP #### [facility] [address] [address] [address] Jessie Lomax Sodium [Moles/Vol] 137 mmol/L Normal 136-145 [facility] Comment on above: Performed By: #### C MP #### [facility] [address] [place] [address] Dr. Jessie Lomax Urea nitrogen [Mass/Vol] 21.0 mg/dL Critically high 7.0-18.0 [facility] Comment on above: Performed By: #### C MP #### [facility] [address] [place] [address] Dr. Jessie Lomxa Urea nitrogen/Creatinine [Mass ratio] 17.8 mg/mg Normal [facility] Comment on above: Performed By: #### C MP #### [facility] [address] [place] [address] Dr. Jessie Lomax CBC W MANUAL DIFFon 07-01-20 22 ATYPICAL LYMPH # Normal [facility] Comment on above: Performed By: #### C BC #### [facility] [address] [place] [address] Dr. Jessie Lomax ATYPICAL LYMPH % Normal [facility] Comment on above: Performed By: #### C BC #### [facility] [address] [place] [address] Dr. Jessie Lomax BAND # 0.1 103/ul Normal 0.0-0.3 [facility] Comment on above: Performed By: #### C BC #### [facility] [address] [place] [address] Dr. Jessie Lomax BAND % 1 % Normal 0-5 [facility] Comment on above: Performed By: #### C BC #### [facility] [address] [place] [address] Dr. Jessie Lomax BASOM # 0.00 103/ul Normal 0.00-0.10 [facility] Comment on above: Performed By: #### C BC #### [facility] [address] [place] [address] Dr. Jessie Lomax BASOM % 0.0 % Critically low 0.2-2.0 [facility] Comment on above: Performed By: #### C BC #### [facility] [address] [place] [address] Dr. Jessie Lomax BLAST # Normal [facility] Comment on above: Performed By: #### C BC #### [facility] [address] [place] [address] Dr. Jessie Lomax BLAST % Normal [facility] Comment on above: Performed By: #### C BC #### [facility] [address] [place] [address] Dr. Jessie Lomax CORRECTED WBC Normal 4.0-11.0 [facility] Comment on above: Performed By: #### C BC #### [facility] [address] [place] [address] Dr. Jessie Lomax EOS # 0.12 103/ul Normal 0.00-0.70 [facility] Comment on above: Performed By: #### C BC #### [facility] [address] [place] [address] Dr. Jessie Lomax EOS% 1.0 % Normal 0.9-7.0 [facility] Comment on above: Performed By: #### C BC #### [facility] [address] [place] [address] Dr. Jessie Lomax HCT 45.4 % Normal 42.0-54.0 [facility] Comment on above: Performed By: #### C BC #### [facility] [address] [place] [address] Dr. Jessie Lomax HGB 15.5 g/dl Normal 14.0-18.0 [facility] Comment on above: Performed By: #### C BC #### [facility] [address] [place] [address] Dr. Jessie Lomax LYMPHM # 0.48 103/ul Critically low 1.20-3.80 [facility] Comment on above: Performed By: #### C BC #### [facility] [address] [place] [address] Dr. Jessie Lomax LYMPHM% 4.0 % Critically low 20.5-60.0 [facility] Comment on above: Performed By: #### C BC #### [facility] [address] [place] [address] Dr. Jessie Lomax MCH 31.8 pg Normal 25.9-34.0 [facility] Comment on above: Performed By: #### C BC #### [facility] [address] [place] [address] Dr. Jessie Lomax MCHC 34.1 g/dl Normal 29.9-35.2 [facility] Comment on above: Performed By: #### C BC #### [facility] [address] [place] [address] Dr. Jessie Lomax MCV 93.0 fL Normal 80.0-94.0 [facility] Comment on above: Performed By: #### C BC #### [facility] [address] [place] [address] Dr. Jessie Lomax METAMYELOCYTE # Normal [facility] Comment on above: Performed By: #### C BC #### [facility] [address] [place] [address] Dr. Jessie Lomax METAMYELOCYTE % Normal [facility] Comment on above: Performed By: #### C BC #### [facility] [address] [place] [address] Dr. Jessie Lomax MONOM# 0.24 103/ul Critically low 0.30-0.80 [facility] Comment on above: Performed By: #### C BC #### [facility] [address] [place] [address] Dr. Jessie Lomax MONOM% 2.0 % Normal 1.7-12.0 [facility] Comment on above: Performed By: #### C BC #### [facility] [address] [place] [address] Dr. Jessie Lomax MPV 9.6 fL Normal 9.5-13.5 [facility] Comment on above: Performed By: #### C BC #### [facility] [address] [place] [address] Dr. Jessie Lomax MYELOCYTE # Normal [facility] Comment on above: Performed By: #### C BC #### [facility] [address] [place] [address] Dr. Jessie Lomax MYELOCYTE % Normal [facility] Comment on above: Performed By: #### C BC #### [facility] [address] [place] [address] Dr. Jessie Lomax NRBC Normal [facility] Comment on above: Performed By: #### C BC #### [facility] [address] [place] [address] Dr. Jessie Lomax PLT 300 103/ul Normal 150-450 [facility] Comment on above: Performed By: #### C BC #### [facility] [address] [place] [address] Dr. Jessie Lomax RBC 4.88 106/ul Normal 4.70-6.10 [facility] Comment on above: Performed By: #### C BC #### [facility] [address] [place] [address] Dr. Jessie Lomax RDW 13.5 % Normal 11.0-15.0 [facility] Comment on above: Performed By: #### C BC #### [facility] [address] [place] [address] Dr. Jessie Lomax SEG # 10.95 103/ul Critically high 1.40-6.50 [facility] Comment on above: Performed By: #### C BC #### [facility] [address] [place] [address] Dr. Jessie Lomax SEG % 92.0 % Critically high 43.0-75.0 [facility] Comment on above: Performed By: #### C BC #### [facility] [address] [place] [address] Dr. Jessie Lomax WBC 11.9 103/ul Critically high 4.0-11.0 [facility] Comment on above: Performed By: #### C BC #### [facility] [address] [place] [address] Dr. Jessie Lomax POINT OF CARE GLUCOSEon 06-17 Glucose [Mass/Vol] 428 mg/dL Critically high 74-106 [facility] Comment on above: Performed By: #### A CETON #### [facility] [address] [place] [address] Dr. Jessie Lomax Glucose [Mass/Vol] 337 mg/dL Critically high 74-106 [facility] Comment on above: Performed By: #### B LDCX1 #### [facility] [address] [place] [address] Dr. Jessie Lomax Glucose [Mass/Vol] 233 mg/dL Critically high 74-106 [facility] Comment on above: Performed By: #### B LDCX1 #### [facility] [address] [place] [address] Dr. Jessie Lomax PROF 14(COMP METB)on 022 Albumin [Mass/Vol] 3.7 g/dL Normal 3.4-5.0 [facility] Comment on above: Performed By: #### C MP #### [facility] [address] [place] [address] Dr. Jessie Lomax Albumin/Globulin [Mass ratio] 1.1 {ratio} Normal [facility] Comment on above: Performed By: #### C MP #### [facility] [address] [place] [address] Dr. Jessie Lomax ALP [Catalytic activity/Vol] 86 U/L Normal 46-116 [facility] Comment on above: Performed By: #### C MP #### [facility] [address] [place] [address] Dr. Jessie Lomax ALT [Catalytic activity/Vol] 20 U/L Normal 16-63 [facility] Comment on above: Performed By: #### C MP #### [facility] [address] [place] [address] Dr. Jessie Lomax Anion gap [Moles/Vol] 13.8 mmol/L Normal [facility] Comment on above: Performed By: #### C MP #### [facility] [address] [address] [address] Jessie Lomax AST [Catalytic activity/Vol] 10 U/L Critically low 15-37 [facility] Comment on above: Performed By: #### C MP #### [facility] [address] [place] [address] Dr. Jessie Lomax Bilirubin [Mass/Vol] 0.3 mg/dL Normal 0.2-1.0 [facility] Comment on above: Performed By: #### C MP #### [facility] [address] [place] [address] Dr. Jessie Lomax Calcium [Mass/Vol] 9.3 mg/dL Normal 8.5-10.1 [facility] Comment on above: Performed By: #### C MP #### [facility] [address] [place] [address] Dr. Jessie Lomax Chloride [Moles/Vol] 101 mmol/L Normal 98-107 [facility] Comment on above: Performed By: #### C MP #### [facility] [address] [place] [address] Dr. Jessie Lomax CO2 [Moles/Vol] 27.0 mmol/L Normal 21.0-32.0 [facility] Comment on above: Performed By: #### C MP #### [facility] [address] [place] [address] Dr. Jessie Lomax Creatinine [Mass/Vol] 1.15 mg/dL Normal 0.70-1.30 [facility] Comment on above: Performed By: #### C MP #### [facility] [address] [place] [address] Dr. Jessie Lomax EGFR-AF TOGOLESE >60 Normal >=60 [facility] Comment on above: Performed By: #### C MP #### [facility] [address] [address] [address] Jessie Lomax EGFR-NON AF TOGOLESE >60 Normal >=60 [facility] Comment on above: Performed By: #### C MP #### [facility] [address] [address] [address] Jessie Lomax Globulin (S) [Mass/Vol] 3.5 g/dL Normal [facility] Comment on above: Performed By: #### C MP #### [facility] [address] [address] [address] Jessie Lomax Glucose [Mass/Vol] 284 mg/dL Critically high 74-106 [facility] Comment on above: Performed By: #### C MP #### [facility] [address] [place] [address] Dr. Jessie Lomax Potassium [Moles/Vol] 4.8 mmol/L Normal 3.5-5.1 [facility] Comment on above: Performed By: #### C MP #### [facility] [address] [address] [address] Jessie Lomax Protein [Mass/Vol] 7.2 g/dL Normal 6.4-8.2 [facility] Comment on above: Performed By: #### C MP #### [facility] [address] [place] [address] Dr. Jessie Lomax Sodium [Moles/Vol] 137 mmol/L Normal 136-145 [facility] Comment on above: Performed By: #### C MP #### [facility] [address] [address] [address] Jessie Lomax Urea nitrogen [Mass/Vol] 22.0 mg/dL Critically high 7.0-18.0 [facility] Comment on above: Performed By: #### C MP #### [facility] [address] [address] [address] Jessie Lomax Urea nitrogen/Creatinine [Mass ratio] 19.1 mg/mg Normal [facility] Comment on above: Performed By: #### C MP #### [facility] [address] [place] [address] Dr. Jessie Lomax ACETONE SERUMon 06-30-2022 ACETONE Negative Normal NEGATIVE [facility] Comment on above: Performed By: #### A CETON #### [facility] [address] [place] [address] Dr. Jessie Lomax BNPon 06-30-2022 Natriuretic peptide B (Bld) [Mass/Vol] 45.0 pg/mL Normal <=900.0 [facility] Comment on above: Performed By: #### T TYLER #### [facility] [address] [place] [address] Dr. Jessie Lomax CBC AUTO DIFFon 06-30-2022 BASO # 0.1 103/ul Normal 0.0-0.1 [facility] Comment on above: Performed By: #### C MP #### [facility] [address] [place] [address] Dr. Jessie Lomax Basophils/100 WBC (Bld) 0.9 % Normal 0.2-2.0 [facility] Comment on above: Performed By: #### C MP #### [facility] [address] [place] [address] Dr. Jessie Lomax EO # 0.1 103/ul Normal 0.0-0.7 [facility] Comment on above: Performed By: #### C MP #### [facility] [address] [place] [address] Dr. Jessie Lomax Eosinophils/100 WBC (Bld) 0.9 % Normal 0.9-7.0 [facility] Comment on above: Performed By: #### C MP #### [facility] [address] [place] [address] Dr. Jessie Lomax Erythrocyte distribution width (RBC) [Ratio] 13.4 % Normal 11.0-15.0 [facility] Comment on above: Performed By: #### C MP #### [facility] [address] [place] [address] Dr. Jessie Lomax Hematocrit (Bld) [Volume fraction] 47.0 % Normal 42.0-54.0 [facility] Comment on above: Performed By: #### C MP #### [facility] [address] [address] [address] Jessie Lomax Hemoglobin (Bld) [Mass/Vol] 16.0 g/dL Normal 14.0-18.0 [facility] Comment on above: Performed By: #### C MP #### [facility] [address] [address] [address] Jessie Lomax IG # 0.05 10e3/ul Critically high 0.00-0.03 [facility] Comment on above: Performed By: #### C MP #### [facility] [address] [address] [address] Jessie Lomax IG % 0.5 % Normal 0.0-0.5 [facility] Comment on above: Performed By: #### C MP #### [facility] [address] [address] [address] Jessie Lomax LYMPH # 2.0 103/ul Normal 1.2-3.8 [facility] Comment on above: Performed By: #### C MP #### [facility] [address] [address] [address] Jessie Lomax Lymphocytes/100 WBC (Bld) 20.1 % Critically low 20.5-60.0 [facility] Comment on above: Performed By: #### C MP #### [facility] [address] [address] [address] Jessie Lomax MANUAL DIFF REQ NO Normal [facility] Comment on above: Performed By: #### C MP #### [facility] [address] [address] [address] Jessie Lomax MCH (RBC) [Entitic mass] 31.5 pg Normal 25.9-34.0 [facility] Comment on above: Performed By: #### C MP #### [facility] [address] [address] [address] Jessie Lomax MCHC (RBC) [Mass/Vol] 34.0 g/dL Normal 29.9-35.2 [facility] Comment on above: Performed By: #### C MP #### [facility] [address] [address] [address] Jessie Lomax MCV (RBC) [Entitic vol] 92.5 fL Normal 80.0-94.0 [facility] Comment on above: Performed By: #### C MP #### [facility] [address] [address] [address] Jessie Lomax MONO # 0.7 103/ul Normal 0.3-0.8 [facility] Comment on above: Performed By: #### C MP #### [facility] [address] [address] [address] Jessie Lomax Monocytes/100 WBC (Bld) 6.8 % Normal 1.7-12.0 [facility] Comment on above: Performed By: #### C MP #### [facility] [address] [place] [address] Dr. Jessie Lomax NEUT # 6.9 103/ul Critically high 1.4-6.5 [facility] Comment on above: Performed By: #### C MP #### [facility] [address] [address] [address] Jessie Lomax Neutrophils/100 WBC (Bld) 70.8 % Normal 43.0-75.0 [facility] Comment on above: Performed By: #### C MP #### [facility] [address] [place] [address] Dr. Jessie Lomax Platelet mean volume (Bld) [Entitic vol] 9.5 fL Normal 9.5-13.5 [facility] Comment on above: Performed By: #### C MP #### [facility] [address] [address] [address] Jessie Lomax PLT 308 103/ul Normal 150-450 [facility] Comment on above: Performed By: #### C MP #### [facility] [address] [address] [address] Jessie Lomax RBC 5.08 106/ul Normal 4.70-6.10 [facility] Comment on above: Performed By: #### C MP #### [facility] [address] [place] [address] Dr. Jessie Lomax WBC 9.7 103/ul Normal 4.0-11.0 [facility] Comment on above: Performed By: #### C MP #### [facility] [address] [place] [address] Dr. Jessie Lomax CULTURE BLOODon 06-30-2022 Microscopic examination of blood, culture Culture Observations: NO GROWTH AT 5 DAYS. Normal [facility] Comment on above: Performed By: #### B [id number] #### [facility] [address] [place] [address] Dr. Jessie Lomax Microscopic examination of blood, culture Culture Observations: NO GROWTH AT 5 DAYS. Normal [facility] Comment on above: Performed By: #### B [id number] #### [facility] [address] [place] [address] Dr. Jessie Lomax [facility] SARS-CoV-2 (COVID-19) RNA YOLANDA+probe Ql (Unsp spec) Not detected Normal NOT DETECTED [facility] Comment on above: Result Comment: When [...] for this test is supported by the [place] of Health and Human Service's declaration that [...] used). Performed By: #### B LDCX1 #### [facility] [address] [place] [address] Dr. Jessie Lomax D-DIMERon 06-30-2022 D-DIMER 0.26 mg/L FEU Normal <=0.59 [facility] Comment on above: Performed By: #### C BC #### [facility] [address] [place] [address] Dr. Jessie Lomax D-DIMER COMMENTS SEE BELOW Normal [facility] Comment on above: Result Comment: Incr eases [...] hospitalization. Performed By: #### C BC #### [facility] [address] [place] [address] Dr. Jessie Loamx LACTATE/LACTIC ACIDon 2021 Lactate [Moles/Vol] 1.7 mmol/L Normal 0.4-1.9 [facility] Comment on above: Performed By: #### B [id number] #### [facility] [address] [place] [address] Dr. Jessie Lomax PH VENOUS BLOODon 06-30-2022 PCO2 VENOUS 54.1 mmHg Critically high 40.0-52.0 [facility] Comment on above: Performed By: #### B [id number] #### [facility] [address] [place] [address] Dr. Jessie Lomax pH VENOUS 7.323 Critically low 7.330-7.430 [facility] Comment on above: Performed By: #### B [id number] #### [facility] [address] [place], [place] [id number] Dr. Jessie Lomax PROF 14(COMP METB)on 022 Albumin [Mass/Vol] 3.9 g/dL Normal 3.4-5.0 [facility] Comment on above: Performed By: #### T TYLER #### [facility] [address] [place] [address] Dr. Jessie Lomax Albumin/Globulin [Mass ratio] 1.1 {ratio} Normal [facility] Comment on above: Performed By: #### T TYLER #### [facility] [address] [place] [address] Dr. Jessie Lomax ALP [Catalytic activity/Vol] 96 U/L Normal 46-116 [facility] Comment on above: Performed By: #### T TYLER #### [facility] [address] [place] [address] Dr. Jessie Lomax ALT [Catalytic activity/Vol] 19 U/L Normal 16-63 [facility] Comment on above: Performed By: #### T TYLER #### [facility] [address] [place] [address] Dr. Jessie Lomax Anion gap [Moles/Vol] 4.5 mmol/L Normal [facility] Comment on above: Performed By: #### T TYLER #### [facility] [address] [place] [address] Dr. Jessie Lomax AST [Catalytic activity/Vol] 13 U/L Critically low 15-37 [facility] Comment on above: Performed By: #### T TYLER #### [facility] [address] [place] [address] Dr. Jessie Lomax Bilirubin [Mass/Vol] 0.4 mg/dL Normal 0.2-1.0 [facility] Comment on above: Performed By: #### T TYLER #### [facility] [address] [place] [address] Dr. Jessie Lomax Calcium [Mass/Vol] 9.2 mg/dL Normal 8.5-10.1 [facility] Comment on above: Performed By: #### T TYLER #### [facility] [address] [place] [address] Dr. Jessie Lomax Chloride [Moles/Vol] 103 mmol/L Normal 98-107 [facility] Comment on above: Performed By: #### T TYLER #### [facility] [address] [place] [address] Dr. Jessie Lomax CO2 [Moles/Vol] 26.3 mmol/L Normal 21.0-32.0 [facility] Comment on above: Performed By: #### T TYLER #### [facility] [address] [address] [address] Jessie Lomax Creatinine [Mass/Vol] 1.06 mg/dL Normal 0.70-1.30 [facility] Comment on above: Performed By: #### T TYLER #### [facility] [address] [address] [address] Jessie Lomax EGFR-AF TOGOLESE >60 Normal >=60 [facility] Comment on above: Performed By: #### T TYLER #### [facility] [address] [address] [address] Jessie Lomax EGFR-NON AF TOGOLESE >60 Normal >=60 [facility] Comment on above: Performed By: #### T TYLER #### [facility] [address] [place] [address] Dr. Jessie Lomax Globulin (S) [Mass/Vol] 3.5 g/dL Normal [facility] Comment on above: Performed By: #### T TYLER #### [facility] [address] [address] [address] Jessie Lomax Glucose [Mass/Vol] 221 mg/dL Critically high 74-106 [facility] Comment on above: Performed By: #### T TYLER #### [facility] [address] [place] [address] Dr. Jessie Lomax Potassium [Moles/Vol] 4.6 mmol/L Normal 3.5-5.1 [facility] Comment on above: Performed By: #### T TYLER #### [facility] [address] [address] [address] Jessie Lomax Protein [Mass/Vol] 7.4 g/dL Normal 6.4-8.2 [facility] Comment on above: Performed By: #### T TYLER #### [facility] [address] [address] [address] Jessie Lomax Sodium [Moles/Vol] 138 mmol/L Normal 136-145 [facility] Comment on above: Performed By: #### T TYLER #### [facility] [address] [place] [address] Dr. Jessie Lomax Urea nitrogen [Mass/Vol] 23.0 mg/dL Critically high 7.0-18.0 [facility] Comment on above: Performed By: #### T TYLER #### [facility] [address] [place] [address] Dr. Jessie Lomax Urea nitrogen/Creatinine [Mass ratio] 20.2 mg/mg Normal [facility] Comment on above: Performed By: #### T TYLER #### [facility] [address] [place] [address] Dr. Jessie Lomax PROTIMEon 06-30-2022 INR Coag (PPP) [Relative time] 0.93 {INR} Normal [facility] Comment on above: Performed By: #### A CETON #### [facility] [address] [place] [address] Dr. Jessie Lomax INR GUIDELINES SEE BELOW Normal [facility] Comment on above: Result Comment: VANESSA RED INR: 2.0 - 3.0 CONDITIONS NOT LISTED BELOW 2.5 - 3.5 FOR PROSTHETIC HEART VALVE REPLACEMENT 2.5 - 3.5 RECURRENT THROMBOSIS Performed By: #### A CETON #### [facility] [address] [place] [address] Dr. Jessie Lomax PT Coag (PPP) [Time] 10.1 s Normal 9.0-11.6 [facility] Comment on above: Performed By: #### A CETON #### [facility] [address] [place] [address] Dr. Jessie Lomax PTTon 06-30-2022 aPTT Coag (Bld) [Time] 25.1 s Normal 22.3-36.2 [facility] Comment on above: Performed By: #### B [id number] #### [facility] [address] [place] [address] Dr. Jessie Lomax TROPONIN, HIGH SENSITIVITYon 06-30-2022 HSTROP 11.4 pg/mL Normal 4.0-76.1 [facility] Comment on above: Result Comment: CUT- OFF POINTS HAVE BEEN ESTABLISHED BASED ON THE FOURTH UNIVERSAL DEFINITIONS OF MYOCARDIAL INFARCTION. THE UPPER REFERENCE LIMIT (URL) OF TROPONIN, DEFINED THE 99TH PERCENTILE OF cTnI DISTRIBUTION IN A REFERENCE POPULATION, HAS BEEN CONFIRMED THE DECISION THRESHOLD FOR NC DIAGNOSIS. Performed By: #### T TYLER #### [facility] [address] [place] [address] Dr. Jessie Lomax XR CHEST 1 Von [...] by: SOLA SHELL Date: 2022-06-30 21:00 Normal [facility] BNPon 05-02-2022 Natriuretic peptide B (Bld) [Mass/Vol] 90.0 pg/mL Normal <=900.0 [facility] Comment on above: Performed By: #### B [id number] #### [facility] [address] [address] [address] Jessie Lomax CARDIAC JUSTINE ADMITon 022 CK [Catalytic activity/Vol] 84 U/L Normal 39-308 [facility] Comment on above: Performed By: #### B [id number] #### [facility] [address] [place] [address] Dr. Jessie Lomax CK.MB [Mass/Vol] 3.74 ng/mL Critically high <=3.60 [facility] Comment on above: Performed By: #### B [id number] #### [facility] [address] [address] [address] Jessie Lomax HSTROP 14.1 pg/mL Normal 4.0-76.1 [facility] Comment on above: Result Comment: CUT- OFF POINTS HAVE BEEN ESTABLISHED BASED ON THE FOURTH UNIVERSAL DEFINITIONS OF MYOCARDIAL INFARCTION. THE UPPER REFERENCE LIMIT (URL) OF TROPONIN, DEFINED THE 99TH PERCENTILE OF cTnI DISTRIBUTION IN A REFERENCE POPULATION, HAS BEEN CONFIRMED THE DECISION THRESHOLD FOR NC DIAGNOSIS. Performed By: #### B [id number] #### [facility] [address] [place] [address] Dr. Jessie Lomax HERLINDA 55 ng/mL Normal 16-96 [facility] Comment on above: Performed By: #### B [id number] #### [facility] [address] [place] [address] Dr. Jessie Lomax CBC AUTO DIFFon 05-02-2022 BASO # 0.1 103/ul Normal 0.0-0.1 [facility] Comment on above: Performed By: #### C BC #### [facility] [address] [place] [address] Dr. Jessie Lomax Basophils/100 WBC (Bld) 0.5 % Normal 0.2-2.0 [facility] Comment on above: Performed By: #### C BC #### [facility] [address] [place] [address] Dr. Jessie Lomax EO # 0.0 103/ul Normal 0.0-0.7 [facility] Comment on above: Performed By: #### C BC #### [facility] [address] [place] [address] Dr. Jessie Lomax Eosinophils/100 WBC (Bld) 0.3 % Critically low 0.9-7.0 [facility] Comment on above: Performed By: #### C BC #### [facility] [address] [place] [address] Dr. Jessie Lomax Erythrocyte distribution width (RBC) [Ratio] 13.6 % Normal 11.0-15.0 [facility] Comment on above: Performed By: #### C BC #### [facility] [address] [place] [address] Dr. Jessie Lomax Hematocrit (Bld) [Volume fraction] 46.1 % Normal 42.0-54.0 [facility] Comment on above: Performed By: #### C BC #### [facility] [address] [place] [address] Dr. Jessie Lomax Hemoglobin (Bld) [Mass/Vol] 15.6 g/dL Normal 14.0-18.0 [facility] Comment on above: Performed By: #### C BC #### [facility] [address] [place] [address] Dr. Jessie Lomax IG # 0.07 10e3/ul Critically high 0.00-0.03 [facility] Comment on above: Performed By: #### C BC #### [facility] [address] [place] [address] Dr. Jessie Lomax IG % 0.6 % Critically high 0.0-0.5 [facility] Comment on above: Performed By: #### C BC #### [facility] [address] [place] [address] Dr. Jessie Lomax LYMPH # 2.0 103/ul Normal 1.2-3.8 [facility] Comment on above: Performed By: #### C BC #### [facility] [address] [place] [address] Dr. Jessie Lomax Lymphocytes/100 WBC (Bld) 16.0 % Critically low 20.5-60.0 [facility] Comment on above: Performed By: #### C BC #### [facility] [address] [place] [address] Dr. Jessie Lomax MANUAL DIFF REQ NO Normal [facility] Comment on above: Performed By: #### C BC #### [facility] [address] [place] [address] Dr. Jessie Lomax MCH (RBC) [Entitic mass] 31.7 pg Normal 25.9-34.0 [facility] Comment on above: Performed By: #### C BC #### [facility] [address] [place] [address] Dr. Jessie Lomax MCHC (RBC) [Mass/Vol] 33.8 g/dL Normal 29.9-35.2 [facility] Comment on above: Performed By: #### C BC #### [facility] [address] [place] [address] Dr. Jessie Lomax MCV (RBC) [Entitic vol] 93.7 fL Normal 80.0-94.0 [facility] Comment on above: Performed By: #### C BC #### [facility] [address] [address] [address] Jessie Lomax MONO # 0.8 103/ul Normal 0.3-0.8 [facility] Comment on above: Performed By: #### C BC #### [facility] [address] [address] [address] Jessie Lomax Monocytes/100 WBC (Bld) 6.2 % Normal 1.7-12.0 [facility] Comment on above: Performed By: #### C BC #### [facility] [address] [place] [address] Dr. Jessie Lomax NEUT # 9.5 103/ul Critically high 1.4-6.5 [facility] Comment on above: Performed By: #### C BC #### [facility] [address] [place] [address] Dr. Jessie Lomax Neutrophils/100 WBC (Bld) 76.4 % Critically high 43.0-75.0 [facility] Comment on above: Performed By: #### C BC #### [facility] [address] [place] [address] Dr. Jessie Lomax Platelet mean volume (Bld) [Entitic vol] 9.6 fL Normal 9.5-13.5 [facility] Comment on above: Performed By: #### C BC #### [facility] [address] [place] [address] Dr. Jessie Lomax PLT 338 103/ul Normal 150-450 [facility] Comment on above: Performed By: #### C BC #### [facility] [address] [place] [address] Dr. Jessie Lomax RBC 4.92 106/ul Normal 4.70-6.10 [facility] Comment on above: Performed By: #### C BC #### [facility] [address] [place] [address] Dr. Jessie Lomax WBC 12.4 103/ul Critically high 4.0-11.0 [facility] Comment on above: Performed By: #### C BC #### [facility] [address] [place] [address] Dr. Jessie Lomax Covid-19 PCR (CVDTB)on 04-17 SARS-CoV-2 (COVID-19) RNA YOLANDA+probe Ql (Unsp spec) Not detected Normal NOT DETECTED [facility] Comment on above: Result Comment: When [...] for this test is supported by the [employer] of Health and Human Service's declaration that [...] used). Performed By: #### C MP #### [facility] [address] [place] [address] Dr. Jessie Lomax PROF 14(COMP METB)on 022 Albumin [Mass/Vol] 3.5 g/dL Normal 3.4-5.0 [facility] Comment on above: Performed By: #### B LDCX1 #### [facility] [address] [place] [address] Dr. Jessie Lomax Albumin/Globulin [Mass ratio] 1.0 {ratio} Normal [facility] Comment on above: Performed By: #### B LDCX1 #### [facility] [address] [place] [address] Dr. Jessie Lomax ALP [Catalytic activity/Vol] 104 U/L Normal 46-116 [facility] Comment on above: Performed By: #### B [id number] #### [facility] [address] [place] [address] Dr. Jessie Lomax ALT [Catalytic activity/Vol] 21 U/L Normal 16-63 [facility] Comment on above: Performed By: #### B [id number] #### [facility] [address] [address] [address] Jessie Lomax Anion gap [Moles/Vol] 11.7 mmol/L Normal [facility] Comment on above: Performed By: #### B [id number] #### [facility] [address] [address] [address] Jessie Lomax AST [Catalytic activity/Vol] U/L Critically low 15-37 [facility] Comment on above: Performed By: #### B [id number] #### [facility] [address] [address] [address] Jessie Lomax Bilirubin [Mass/Vol] 0.2 mg/dL Normal 0.2-1.0 [facility] Comment on above: Performed By: #### B [id number] #### [facility] [address] [address] [address] Jessie Lomax Calcium [Mass/Vol] 8.9 mg/dL Normal 8.5-10.1 [facility] Comment on above: Performed By: #### B LDCX1 #### [facility] [address] [address] [address] Jessie Lomax Chloride [Moles/Vol] 99 mmol/L Normal 98-107 [facility] Comment on above: Performed By: #### B LDCX1 #### [facility] [address] [address] [address] Jessie Lomax CO2 [Moles/Vol] 30.4 mmol/L Normal 21.0-32.0 [facility] Comment on above: Performed By: #### B [id number] #### [facility] [address] [address] [address] Jessie Lomax Creatinine [Mass/Vol] 1.29 mg/dL Normal 0.70-1.30 [facility] Comment on above: Performed By: #### B LDCX1 #### [facility] [address] [address] [address] Jessie Lomax EGFR-AF TOGOLESE >60 Normal >=60 [facility] Comment on above: Performed By: #### B [id number] #### [facility] [address] [address] [address] Jessie Lomax EGFR-NON AF TOGOLESE 56 mL/min/1.73m2 Critically low >=60 [facility] Comment on above: Performed By: #### B [id number] #### [facility] [address] [address] [address] Jessie Lomax Globulin (S) [Mass/Vol] 3.4 g/dL Normal [facility] Comment on above: Performed By: #### B [id number] #### [facility] [address] [address] [address] Jessie Lomax Glucose [Mass/Vol] 310 mg/dL Critically high 74-106 [facility] Comment on above: Performed By: #### B [id number] #### [facility] [address] [address] [address] Jessie Lomax Potassium [Moles/Vol] 4.1 mmol/L Normal 3.5-5.1 [facility] Comment on above: Performed By: #### B LDCX1 #### [facility] [address] [address] [address] Jessie Lomax Protein [Mass/Vol] 6.9 g/dL Normal 6.4-8.2 [facility] Comment on above: Performed By: #### B LDCX1 #### [facility] [address] [address] [address] Jessie Lomax Sodium [Moles/Vol] 137 mmol/L Normal 136-145 [facility] Comment on above: Performed By: #### B LDCX1 #### [facility] [address] [address] [address] Jessie Lomax Urea nitrogen [Mass/Vol] 16.0 mg/dL Normal 7.0-18.0 [facility] Comment on above: Performed By: #### B LDCX1 #### [facility] [address] [address] [address] Jessie Lomax Urea nitrogen/Creatinine [Mass ratio] 12.4 mg/mg Normal [facility] Comment on above: Performed By: #### B LDCX1 #### [facility] [address] [place] [address] Dr. Jessie Lomax PROTIMEon 05-02-2022 INR Coag (PPP) [Relative time] {INR} Normal [facility] Comment on above: Performed By: #### T TYLER #### [facility] [address] [place] [address] Dr. Jessie Lomax INR GUIDELINES SEE BELOW Normal [facility] Comment on above: Result Comment: VANESSA RED INR: 2.0 - 3.0 CONDITIONS NOT LISTED BELOW 2.5 - 3.5 FOR PROSTHETIC HEART VALVE REPLACEMENT 2.5 - 3.5 RECURRENT THROMBOSIS Performed By: #### T TYLER #### [facility] [address] [place] [address] Dr. Jessie Lomax PT Coag (PPP) [Time] 9.8 s Normal 9.0-11.6 [facility] Comment on above: Performed By: #### T TYLER #### [facility] [address] [place] [address] Dr. Jessie Lomax PTTon 05-02-2022 aPTT Coag (Bld) [Time] 23.0 s Normal 22.3-36.2 [facility] Comment on above: Performed By: #### T TYLER #### [facility] [address] [place] [address] Dr. Jessie Lomax XR CHEST 1 Von [...] GERARD ESPANA Date: 2022-05-02 08:55 Normal [facility] Covid-19 PCR (CVDTB)on 04-17 SARS-CoV-2 (COVID-19) RNA YOLANDA+probe Ql (Unsp spec) Not detected Normal NOT DETECTED [facility] Comment on above: Result Comment: This test is not yet approved or cleared by the [place] FDA. When there are no FDA-approved or cleared tests available, and other criteria are met, FDA can make tests available under an emergency access mechanism called an Emergency Use Authorization (EUA). The EUA for this test is supported by the [place] of Health and Human Service's (HHS's) declaration [...] SARS-CoV-2. Performed By: #### A CETON #### [facility] [address] [place] [address] Dr. Jessie Lomax CBC AUTO DIFFon 03-19-2022 BASO # 0.0 103/ul Normal 0.0-0.1 [facility] Comment on above: Performed By: #### C BC #### [facility] [address] [place] [address] Dr. Jessie Lomax Basophils/100 WBC (Bld) 0.4 % Normal 0.2-2.0 [facility] Comment on above: Performed By: #### C BC #### [facility] [address] [place] [address] Dr. eJssie Lomax EO # 0.0 103/ul Normal 0.0-0.7 [facility] Comment on above: Performed By: #### C BC #### [facility] [address] [place] [address] Dr. Jessie Lomax Eosinophils/100 WBC (Bld) 0.1 % Critically low 0.9-7.0 [facility] Comment on above: Performed By: #### C BC #### [facility] [address] [place] [address] Dr. Jessie Lomax Erythrocyte distribution width (RBC) [Ratio] 13.6 % Normal 11.0-15.0 [facility] Comment on above: Performed By: #### C BC #### [facility] [address] [place] [address] Dr. Jessie Lomax Hematocrit (Bld) [Volume fraction] 47.4 % Normal 42.0-54.0 [facility] Comment on above: Performed By: #### C BC #### [facility] [address] [place] [address] Dr. Jessie Lomax Hemoglobin (Bld) [Mass/Vol] 16.0 g/dL Normal 14.0-18.0 [facility] Comment on above: Performed By: #### C BC #### [facility] [address] [place] [address] Dr. Jessie Lomax IG # 0.03 10e3/ul Normal 0.00-0.03 [facility] Comment on above: Performed By: #### C BC #### [facility] [address] [place] [address] Dr. Jessie Lomax IG % 0.3 % Normal 0.0-0.5 [facility] Comment on above: Performed By: #### C BC #### [facility] [address] [place] [address] Dr. Jessie Lomax LYMPH # 0.5 103/ul Critically low 1.2-3.8 [facility] Comment on above: Performed By: #### C BC #### [facility] [address] [place] [address] Dr. Jessie Lomax Lymphocytes/100 WBC (Bld) 5.4 % Critically low 20.5-60.0 [facility] Comment on above: Performed By: #### C BC #### [facility] [address] [place] [address] Dr. Jessie Lomax MANUAL DIFF REQ NO Normal [facility] Comment on above: Performed By: #### C BC #### [facility] [address] [place] [address] Dr. Jessie Lomax MCH (RBC) [Entitic mass] 31.7 pg Normal 25.9-34.0 [facility] Comment on above: Performed By: #### C BC #### [facility] [address] [place] [address] Dr. Jessie Lomax MCHC (RBC) [Mass/Vol] 33.8 g/dL Normal 29.9-35.2 [facility] Comment on above: Performed By: #### C BC #### [facility] [address] [address] [address] Jessie Lomax MCV (RBC) [Entitic vol] 93.9 fL Normal 80.0-94.0 [facility] Comment on above: Performed By: #### C BC #### [facility] [address] [place] [address] Dr. Jessie Lomax MONO # 0.2 103/ul Critically low 0.3-0.8 [facility] Comment on above: Performed By: #### C BC #### [facility] [address] [place] [address] Dr. Jessie Lomax Monocytes/100 WBC (Bld) 2.4 % Normal 1.7-12.0 [facility] Comment on above: Performed By: #### C BC #### [facility] [address] [place] [address] Dr. Jessie Lomax NEUT # 9.1 103/ul Critically high 1.4-6.5 [facility] Comment on above: Performed By: #### C BC #### [facility] [address] [place] [address] Dr. Jessie Lomax Neutrophils/100 WBC (Bld) 91.4 % Critically high 43.0-75.0 [facility] Comment on above: Performed By: #### C BC #### [facility] [address] [place] [address] Dr. Jessie Lomax Platelet mean volume (Bld) [Entitic vol] 9.5 fL Normal 9.5-13.5 [facility] Comment on above: Performed By: #### C BC #### [facility] [address] [place] [address] Dr. Jessie Lomax PLT 303 103/ul Normal 150-450 [facility] Comment on above: Performed By: #### C BC #### [facility] [address] [place] [address] Dr. Jessie Lomax RBC 5.05 106/ul Normal 4.70-6.10 [facility] Comment on above: Performed By: #### C BC #### [facility] [address] [place] [address] Dr. Jessie Lomax WBC 10.0 103/ul Normal 4.0-11.0 [facility] Comment on above: Performed By: #### C BC #### [facility] [address] [place] [address] Dr. Jessie Lomax Covid-19 PCR ([facility])on SARS-CoV-2 (COVID-19) RNA YOLANDA+probe Ql (Unsp spec) Not detected Normal NOT DETECTED [facility] Comment on above: Result Comment: When diagnostic [...] for this test is supported by the [employer] of Health and Human Service's declaration that [...] used). Performed By: #### B LDCX1 #### [facility] [address] [place] [address] Dr. Jessie Lomax PROF 14(COMP METB)on 022 Albumin [Mass/Vol] 3.9 g/dL Normal 3.4-5.0 [facility] Comment on above: Performed By: #### C BC #### [facility] [address] [address] [address] Jessie Lomax Albumin/Globulin [Mass ratio] 1.1 {ratio} Normal [facility] Comment on above: Performed By: #### C BC #### [facility] [address] [address] [address] Jessie Lomax ALP [Catalytic activity/Vol] 81 U/L Normal 46-116 [facility] Comment on above: Performed By: #### C BC #### [facility] [address] [place] [address] Dr. Jessie Lomax ALT [Catalytic activity/Vol] 26 U/L Normal 16-63 [facility] Comment on above: Performed By: #### C BC #### [facility] [address] [place] [address] Dr. Jessie Lomax Anion gap [Moles/Vol] 14.5 mmol/L Normal [facility] Comment on above: Performed By: #### C BC #### [facility] [address] [place] [address] Dr. Jessie Lomax AST [Catalytic activity/Vol] 7 U/L Critically low 15-37 [facility] Comment on above: Performed By: #### C BC #### [facility] [address] [place] [address] Dr. Jessie Lomax Bilirubin [Mass/Vol] 0.3 mg/dL Normal 0.2-1.0 [facility] Comment on above: Performed By: #### C BC #### [facility] [address] [place] [address] Dr. Jessie Lomax Calcium [Mass/Vol] 9.2 mg/dL Normal 8.5-10.1 [facility] Comment on above: Performed By: #### C BC #### [facility] [address] [place] [address] Dr. Jessie Lomax Chloride [Moles/Vol] 101 mmol/L Normal 98-107 [facility] Comment on above: Performed By: #### C BC #### [facility] [address] [place] [address] Dr. Jessie Lomax CO2 [Moles/Vol] 26.1 mmol/L Normal 21.0-32.0 [facility] Comment on above: Performed By: #### C BC #### [facility] [address] [address] [address] Jessie Lomax Creatinine [Mass/Vol] 1.50 mg/dL Critically high 0.70-1.30 [facility] Comment on above: Performed By: #### C BC #### [facility] [address] [address] [address] Jessie Lomax EGFR-AF TOGOLESE 57 mL/min/1.73m2 Critically low >=60 [facility] Comment on above: Performed By: #### C BC #### [facility] [address] [address] [address] Jessie Lomax EGFR-NON AF TOGOLESE 47 mL/min/1.73m2 Critically low >=60 [facility] Comment on above: Performed By: #### C BC #### [facility] [address] [address] [address] Jessie Lomax Globulin (S) [Mass/Vol] 3.4 g/dL Normal [facility] Comment on above: Performed By: #### C BC #### [facility] [address] [address] [address] Jessie Lomax Glucose [Mass/Vol] 264 mg/dL Critically high 74-106 [facility] Comment on above: Performed By: #### C BC #### [facility] [address] [address] [address] Jessie Lomax Potassium [Moles/Vol] 4.6 mmol/L Normal 3.5-5.1 [facility] Comment on above: Performed By: #### C BC #### [facility] [address] [address] [address] Jessie Lomax Protein [Mass/Vol] 7.3 g/dL Normal 6.4-8.2 [facility] Comment on above: Performed By: #### C BC #### [facility] [address] [address] [address] Jessie Lomax Sodium [Moles/Vol] 137 mmol/L Normal 136-145 [facility] Comment on above: Performed By: #### C BC #### [facility] [address] [address] [address] Jessie Lomax Urea nitrogen [Mass/Vol] 20.0 mg/dL Critically high 7.0-18.0 [facility] Comment on above: Performed By: #### C BC #### [facility] [address] [address] [address] Jessie Lomax Urea nitrogen/Creatinine [Mass ratio] 13.3 mg/mg Normal [facility] Comment on above: Performed By: #### C BC #### [facility] [address] [address] [address] Jessie Lomax XR CHEST 1 Von [...] GERARD WOLFF Date: 2022-03-19 00:11 Normal [facility] Cardiovascular Lab Reporton 12-29-2018 Cardiovascular Lab Report [facility]: [id number] Physician: Calli Devlin, Department of M.D. Medicine Service Date: 12/28/2018 Division of Birthdate: 1960 Cardiology Room #: [facility] [place] [address] Cardiovascular Laboratory Report FINAL IMPRESSIONS: 1. Nonobstructive [...] as an outpatient. 6. Follow up with hi in the [facility] in the next 2-4 weeks. 7. Follow up with Dr. Cowart as scheduled. PROCEDURES: Ultrasound-guided access to the right common femoral vein and artery, right heart catheterization, bilateral selective coronary angiography, left heart catheterization, left ventriculography, limited femoral angiogram, placement of a 6-Surinamese MynxGrip closure device. METHODS: After risks, benefits, and alternatives were explained, written informed consent was obtained. The patient was prepped and draped in usual sterile fashion over the right groin. Using 1% lidocaine solution, local infiltration anesthesia was achieved. Using a modified Seldinger technique and under ultrasound guidance access to the right common femoral vein and artery was obtained and 6-Surinamese 11 cm sheath placed in each. Limited [...] the procedure. All catheters were removed. A 6-Surinamese MynxGrip closure device was deployed per protocol [...] Marek/Calli Devlin M.D. Date Trans: 12/29/2018 04:14 Val [id number] cc: Calli Devlin M.D. [address] [place] [address] ANNA NASH Allen [facility] Vital Signs Date Time Vital Sign Value Performing Clinician Facility 11-11-2023 14:15-0400 Body height 175.26 cm [facility] 11-11-2023 14:15-0400 Body mass index (BMI) [Ratio] 37 kg/m2 [facility] 11-11-2023 14:15-0400 Body weight 113.85 kg [facility] 11-11-2023 14:15-0400 Diastolic blood pressure 102 mm[Hg] [facility] 11-11-2023 14:15-0400 Heart rate 96 /min [facility] 11-11-2023 14:15-0400 SaO2% (BldA) [Mass fraction] 92 % [facility] 11-11-2023 14:15-0400 Systolic blood pressure 149 mm[Hg] [facility] 09-15-2023 11:02-0500 Body height 175.26 cm [facility] 09-15-2023 11:02-0500 Body mass index (BMI) [Ratio] 38.2 kg/m2 [facility] 09-15-2023 11:02-0500 Body weight 117.59 kg [facility] 09-15-2023 11:02-0500 Diastolic blood pressure 87 mm[Hg] [facility] 09-15-2023 11:02-0500 Heart rate 113 /min [facility] 09-15-2023 11:02-0500 SaO2% (BldA) [Mass fraction] 97 % [facility] 09-15-2023 11:02-0500 Systolic blood pressure 158 mm[Hg] [facility] 06-27-2023 11:00-0500 Body height 175.26 cm Janet Cowart Other [email or web address] Other 06-27-2023 11:00-0500 Body mass index (BMI) [Ratio] 37.8 kg/m2 Janet Cowart Other [email or web address] Other 06-27-2023 11:00-0500 Body weight 116.12 kg Janet Cowart Other [email or web address] Other 06-27-2023 11:00-0500 Diastolic blood pressure 88 mm[Hg] Janet Cowart Other [email or web address] Other 06-27-2023 11:00-0500 SaO2% (BldA) [Mass fraction] 92 % Janet Cowart Other [email or web address] Other 06-27-2023 11:00-0500 Systolic blood pressure 134 mm[Hg] Janet Cowart Other [email or web address] Other 03-03-2023 15:00-0400 Body height 175.26 cm Janet Cowart Other [email or web address] Other 03-03-2023 15:00-0400 Body mass index (BMI) [Ratio] 38.69 kg/m2 Janet Cowart Other [email or web address] Other 03-03-2023 15:00-0400 Body weight 118.84 kg Janet Cowart Other [email or web address] Other 03-03-2023 15:00-0400 Diastolic blood pressure 82 mm[Hg] Janet Cowart Other [email or web address] Other 03-03-2023 15:00-0400 Systolic blood pressure 157 mm[Hg] Janet Cowart Other [email or web address] Other 12-30-2022 14:30-0400 Body height 175.26 cm Janet Cowart Other [email or web address] Other 12-30-2022 14:30-0400 Body mass index (BMI) [Ratio] 39.57 kg/m2 Janet Cowart Other [email or web address] Other 12-30-2022 14:30-0400 Body weight 121.56 kg Janet Cowart Other [email or web address] Other 12-30-2022 14:30-0400 Diastolic blood pressure 85 mm[Hg] Janet Cowart Other [email or web address] Other 12-30-2022 14:30-0400 SaO2% (BldA) [Mass fraction] 95 % Janet Cowart Other [email or web address] Other 12-30-2022 14:30-0400 Systolic blood pressure 147 mm[Hg] Janet Cowart Other [email or web address] Other 09-02-2022 14:00-0500 Body height 175.26 cm Janet Cowart Other [email or web address] Other 09-02-2022 14:00-0500 Body mass index (BMI) [Ratio] 38.69 kg/m2 Janet Cowart Other [email or web address] Other 09-02-2022 14:00-0500 Body weight 118.84 kg Janet Cowart Other [email or web address] Other 09-02-2022 14:00-0500 Diastolic blood pressure 84 mm[Hg] Janet Cowart Other [email or web address] Other 09-02-2022 14:00-0500 Respiratory rate 60 /min Janet Cowart Other [email or web address] Other 09-02-2022 14:00-0500 SaO2% (BldA) [Mass fraction] 91 % Janet Cowart Other [email or web address] Other 09-02-2022 14:00-0500 Systolic blood pressure 142 mm[Hg] Janet Cowart Other [email or web address] Other Encounters Encounter Date Encounter Type Care Provider Facility Start: 01-18-2024 ambulatory SARAH KEITH Facili ty: [facility] Kaur Start: 12-28-2023 End: 12-28-2023 ambulatory SARAH A INNA Facility:[facility] Rekha barrow Start: 12-26-2023 ambulatory SARAH KEITH Facility :[facility] Natasha Start: 11-11-2023 End: 11-11-2023 ambulatory [facility] Work Phone: Start: 11-11-2023 End: 11-11-2023 Patient encounter procedure [facility] Physician [facility] Work Phone: Start: 10-03-2023 Non-patient / Non-visit [facility] Phys[facility] Work Phone: Start: 09-15-2023 End: 09-15-2023 Patient encounter procedure [facility] Physician [facility] Work Phone: Start: 08-26-2023 End: 08-26-2023 ambulatory Janet Cowart Other [email or web address] Other Start: 08-26-2023 Telephone encounter Janet Cowart [facility] Start: 08-04-2023 End: 08-04-2023 ambulatory Janet Cowart Other [email or web address] Other Start: 08-04-2023 Telephone encounter Janet Cowart [facility] Start: 08-03-2023 End: 08-03-2023 ambulatory Janet Cowart Other [email or web address] Other Start: 08-03-2023 Telephone encounter Janet Cowart [facility] Start: 07-19-2023 End: 07-19-2023 ambulatory Janet Cowart Other [email or web address] Other Start: 07-19-2023 Telephone encounter Janet Cowart [facility] Start: 07-12-2023 End: 07-12-2023 ambulatory Janet Cowart Other [email or web address] Other Start: 07-12-2023 Telephone encounter Janet Cowart [facility] Start: 07-07-2023 End: 07-07-2023 ambulatory Janet Cowart Other [email or web address] Other Start: 07-07-2023 Telephone encounter Janet Cowart [facility] Start: 07-04-2023 End: 07-04-2023 ambulatory Janet Cowart Other [email or web address] Other Start: 07-04-2023 Telephone encounter Janet Cowart [facility] Start: 06-30-2023 End: 06-30-2023 ambulatory Janet Cowart Other [email or web address] Other Start: 06-30-2023 Telephone encounter Janet Cowart [facility] Start: 06-27-2023 End: 06-27-2023 ambulatory Janet Cowart Other [email or web address] Other Start: 06-27-2023 Office outpatient vi sit 25 minutes Janet Cowart [facility] Start: 06-27-2023 Telephone encounter Janet Cowart [facility] Start: 06-24-2023 End: 06-24-2023 ambulatory Janet Cowart Other [email or web address] Other Start: 06-24-2023 Telephone encounter Janet Cowart [facility] Start: 06-13-2023 End: 06-13-2023 ambulatory Janet Cowart Other [email or web address] Other Start: 06-13-2023 Telephone encounter Janet Cowart [facility] Start: 06-03-2023 End: 06-03-2023 ambulatory Janet Cowart Other [email or web address] Other Start: 06-03-2023 Telephone encounter Janet Cowart [facility] Start: 05-31-2023 End: 05-31-2023 ambulatory Janet Cowart Other [email or web address] Other Start: 05-31-2023 Telephone encounter Janet Cowart [facility] Start: 05-09-2023 End: 05-09-2023 ambulatory Janet Cowart Other [email or web address] Other Start: 05-09-2023 Telephone encounter Janet Cowart [facility] Start: 04-25-2023 Telephone encounter Capo Meraz RN Pulmonary Medicine Comment on above: Closing Referral Start: 04-13-2023 End: 04-13-2023 ambulatory Janet Cowart Other [email or web address] Other Start: 04-13-2023 Telephone encounter Janet Cowart [facility] Start: 03-14-2023 End: 03-14-2023 ambulatory Janet Cowart Other [email or web address] Other Start: 03-14-2023 Telephone encounter Janet Cowart [facility] Start: 03-11-2023 End: 03-11-2023 ambulatory Janet Cowart Other [email or web address] Other Start: 03-11-2023 Telephone encounter Janet Cowart [facility] Start: 03-10-2023 Telephone encounter Capo Meraz RN Pulmonary Medicine Comment on above: Follow up on Lung Tr ansplant Referral Start: 03-08-2023 End: 03-08-2023 ambulatory Janet Cowart Other [email or web address] Other Start: 03-08-2023 Telephone encounter Janet Cowart [facility] Start: 03-03-2023 End: 03-03-2023 ambulatory Janet Cowart Other [email or web address] Other Start: 03-03-2023 Office outpatient vi sit 15 minutes Janet Cowart [facility] Start: 02-10-2023 End: 02-10-2023 ambulatory Janet Cowart Other [email or web address] Other Start: 02-10-2023 Telephone encounter Janet Cowart [facility] Start: 12-30-2022 End: 12-30-2022 ambulatory Janet Cowart Other [email or web address] Other Start: 12-30-2022 Office outpatient vi sit 25 minutes Janet Cowart [facility] Start: 12-30-2022 Telephone encounter Janet Cowart [facility] Start: 12-22-2022 End: 12-22-2022 ambulatory Janet Cowart Other [email or web address] Other Start: 12-22-2022 Telephone encounter Janet Cowart [facility] Start: 11-12-2022 End: 11-12-2022 ambulatory Janet Cowart Other [email or web address] Other Start: 11-12-2022 Telephone encounter Janet Cowart [facility] Start: 10-12-2022 End: 10-12-2022 ambulatory Rubén Pina Other [email or web address] Other Start: 10-12-2022 Telephone encounter Rubén Pina [facility] Start: 10-05-2022 End: 10-05-2022 ambulatory Janet Cowart Other [email or web address] Other Start: 10-05-2022 Telephone encounter Janet Cowart [facility] Start: 10-03-2022 End: 10-04-[address] JANET COWART Facility: Start: 09-27-2022 End: 09-27-2022 ambulatory Janet Cowart Other [email or web address] Other Start: 09-27-2022 Telephone encounter Janet Cowart [facility] Start: 09-15-2022 End: 09-15-2022 ambulatory Janet Cowart Other [email or web address] Other Start: 09-15-2022 Telephone encounter Janet Cowart [facility] Start: 09-02-2022 End: 09-02-2022 ambulatory Janet Cowart Other [email or web address] Other Start: 09-02-2022 Office outpatient vi sit 15 minutes Janet Cowart [facility] Start: 08-29-2022 End: 08-30-[address] EVERETTE MONTAGUE . Facility:[facility] Start: 08-20-2022 End: 08-20-2022 ambulatory Janet Cowart Other [email or web address] Other Start: 08-20-2022 Telephone encounter Janet Cowart [facility] Start: 08-17-2022 End: 08-17-2022 ambulatory SHAIKH Jose BANDA Facility:[facility] Start: 08-17-2022 ambulatory VANDA GONZALEZ . Facility :[facility] Start: 08-10-2022 End: 08-11-2022 ambulatory VANDA GONZALEZ . Facility:[facility] Start: 08-09-2022 End: 08-09-2022 ambulatory Janet Cowart Other [email or web address] Other Start: 08-09-2022 Telephone encounter Janet Cowart [facility] Start: 07-22-2022 End: 07-22-2022 ambulatory Janet Cowart Other [email or web address] Other Start: 07-22-2022 Telephone encounter Janet Cowart [facility] Start: 07-01-2022 End: 07-02-[address] JANET COWART Facility:[facility] Start: 05-02-2022 End: 05-02-[address] JANET COWART Facility:[facility] Start: 04-26-2022 End: 04-26-[address] JANET COWART Facility:[facility] Start: 03-19-2022 End: 03-19-[address] JANET COWART Facility:[facility] Start: 03-05-[address] JANET COWART Facil ity:[facility] Start: 01-08-[address] JANET E COWART Facil ity:[facility] Start: 11-11-2021 Telephone encounter Isabella Nogueira MD Work Phone: Pulmonary Medicine Comment on above: Patient Update Start: 11-04-2021 Telephone encounter Molly trinidad APRN.OPEN SOURCE DEVELOPER Work Phone: Pulmonary Medicine Comment on above: Missed appointments Start: 11-03-2021 Orders Only Molly aguirre CERTIFIED COURT INTERPRETER.OPEN SOURCE DEVELOPER Work Phone: Pulmonary Medicine Comment on above: Chronic obstructive pulmonary disease, unspecified COPD type (HCC) (Primary Dx); 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) Start: 12-28-2018 End: 12-29-2018 Patient encounter procedure [facility] Facility:[facility] Plan of Treatment Date Care Activity Detail Author Start: 03-18-2023 Influenza vaccination C [facility] Start: 03-24-2022 Hepatitis B surface antibody level LDL CHOLESTEROL [facility] Start: 03-18-2022 Influenza vaccination INFLUENZ A (Season Ended) [facility] Start: 11-04-2021 End: 01-04-2022 HEPATITIS A ANTIBODY, IGG HEPATITIS A ANTIBODY, IGG Lab Routine Chronic obstructive pulmonary disease, unspecified COPD type (HCC) Lung transplant candidate Expected: 11/04/2021, Expires: 01/04/2022 [facility] Work Phone: Comment on above: Expected: 11/04/2021 , Expires: 01/04/2022 Start: 11-03-2021 End: 11-03-2022 ARTERIAL BLOOD GASES ARTERIAL BLOOD GASES Lab Routine Nwigv-0-dtyiimtnjca deficiency (HCC) Expected: 11/03/2021, Expires: 11/03/2022 [facility] Work Phone: Comment on above: Expected: 11/03/2021 , Expires: 11/03/2022 Start: 11-04-2014 PROSTATE CANCER SCREENING DISCUSSION PROSTATE CANCER SCREENING DISCUSSION [facility] Start: 11-04-2009 SHINGRIX VACCINE (1 of 2) SHINGRIX VACCINE (1 of 2) [facility] Start: 11-04-2004 COLOGUARD (FIT-DNA) COLOGUARD (FIT-D NA) [facility] Start: 11-04-2004 Colonoscopy COLONOSCOPY [facility] Start: 11-04-2004 COLORECTAL CANCER SCREENING COLORECTAL CANCER SCREENING [facility] Start: 11-04-[address] [facility] Start: 11-04-2004 FECAL OCCULT BLOOD FECAL OCCULT BLOO D [facility] Start: 11-04-2004 SIGMOIDOSCOPY SIGMOIDOSCOPY [facility] Start: 11-04-1989 Zoledronic acid therapy ALPHA- 1 ANTITRYPSIN DEFICIENCY SCREENING [facility] Start: 11-04-1978 ADULT PREVNAR-13 ADULT PREVNAR-13 Cl [facility] Start: 11-04-1978 HEPATITIS A (1 of 2 - Risk 2-dose series) HEPATITIS A (1 of 2 - Risk 2-dose series) [facility] Start: 11-04-1978 Hepatitis A Vaccine (1 of 2 - Risk 2-dose series) Hepatitis A Vaccine (1 of 2 - Risk 2-dose series) [facility] Start: 11-04-1978 SHINGRIX VACCINE (1 of 2) SHINGRIX VACCINE (1 of 2) [facility] Start: 11-04-1978 TWO PNEUMOVAX 5 YEAR S APART PRIOR TO AGE 65 (#1) TWO PNEUMOVAX 5 YEARS APART PRIOR TO AGE 65 (#1) [facility] Start: 11-04-1978 Urine microalbumin profile [facility] Start: 11-04-1977 ANNUAL PCP TEAM QA SOFTWARE TEST ENGINEER SARAH DISEASE VISIT ANNUAL PCP TEAM CHRONIC DISEASE VISIT [facility] Start: 11-04-1977 BP CONTROLLED (<130/80) BP CONTROLLE D (<130/80) [facility] Start: 11-04-1969 3 comp foot exam completed DIABETIC FOOT EXAM [facility] Start: 11-04-1969 Hepatitis B screening URINE ALBUMIN:CREATININE RATIO [facility] Start: 11-04-1969 Hepatitis C antibody , confirmatory test DILATED RETINAL EXAM [facility] Start: 11-04-1965 PNEUMOCOCCAL (1 - PCV) PNEUMOCOCCAL (1 - PCV) [facility] Start: 11-04-1965 Pneumococcal vaccination Pneum ococcal Vaccine (1 - PCV) [facility] Start: 11-04-1964 COVID-19 VACCINE (1) COVID-19 VACCIN E (1) [facility] Start: 11-04-1964 Hemoglobin A1c/Hemoglobin.total in Blood HBA1C [facility] Start: 11-04-1960 HEPATITIS A (1 of 2 - Risk 2-dose series) HEPATITIS A (1 of 2 - Risk 2-dose series) [facility] Start: 05-06-1960 COVID-19 VACCINE (#1) COVID-19 VACCI NE (#1) [facility] Immunizations Immunization Date Immunization Notes Care Provider Yvette iniguez 05-16-2020 influenza virus vacc ine, unspecified formulation Capo Meraz RN [facility] Payers Date Payer Category Payer Medicare [id number] 2018 Unknown [employer] PPO [id number] 2018-Present [phone] [id number] [place] [address] PPO [id number] 2018 Unknown [employer] PPO [id number] 2018-Present [phone] [id number] [place] [address] PPO [id number] 1959 Unknown [id number] [id number]. 647 1959 Unknown [id number] 2.16.840.1.197042.3.579.2. 593 1959 Unknown [id number] 2.16.840.1.952469.3.579.2. 593 1959 Unknown [id number] 2.16.840.1.070889.3.579.2. 593 1959 Unknown [id number] 2.16.840.1.281424.3.579.2. 593 1959 Unknown [id number] 2.16.840.1.332556.3.579.2. 593 1959 Unknown [id number] 2.16.840.1.997030.3.579.2. 593 1959 Unknown [id number] 2.16.840.1.468777.3.579.2. 593 1959 Unknown [id number] 2.16.840.1.326302.3.579.2. 593 1959 Unknown [id number] 2.16.840.1.271578.3.579.2. 593 1959 Unknown [id number] 2.16.840.1.353591.3.579.2. 593 1959 Unknown [id number] 2.16.840.1.434594.3.579.2. 593 1959 Unknown [id number] 2.16.840.1.415360.3.579.2. 727 1959 Unknown [id number] 2.16.840.1.034759.3.579.2. 727 1959 Private Health Insurance [id number] 2.16.840.1.288419.19 1959 Self-pay [id number] 1959 Self-pay 1959 Unknown [id number] 1959 Unknown [id number] Medicare [id number] [id number] Unknown [id number] Social History Date Type Detail Facility Tobacco smoking stat [facility] Tobacco smoking consumption unknown [facility] Work Phone: Start: 1960 Sex Assigned At Not on file [facility] Start: 10-24-2021 End: 11-03-2021 Exposure to SARS-CoV-2 (event) Not sure [facility] Work Phone: Start: 03-18-2021 Sex Assigned At [email or web address] Other Start: 03-18-2021 History of Social function [facility] National Score (1-10 0), lower number is lower risk Not on file [facility] Start: 03-17-2021 Gender identity Identifies as male gender (finding) [facility] Start: 03-17-2021 Sexual orientation Heterosexual (finding) [facility] Start: 06-27-2023 Tobacco smoking status NHIS Ex-smoker (finding) [facility] Start: 1960 Sex Assigned At Male [facility] Clinical Notes 11-04-2021 to 08-26-2023 Note Date & Type Note Facility 08-26-2023 Evaluation note Encounter Date Diagnosis Assessment Notes Aug, Anxiety, generalized (ICD-10 - F41.1) [email or web address] Other 01-18-2024 Evaluation note* Encounter Date Diagnosis Assessment Notes Treatment Notes Treatment Clinical Notes Jul, Acute cervical radiculopathy (ICD-10 - M54.12) [email or web address] Other 12-26-2023 Evaluation note* Encounter Date Diagnosis Assessment Notes Treatment Notes Treatment Clinical Notes Jun, Acute cervical radiculopathy (ICD-10 - M54.12) [email or web address] Other 12-11-2023 Evaluation note* Encounter Date Diagnosis [...] F41.1) Chronic problem that is stable presently. [email or web address] Other 12-08-2023 Evaluation note* Encounter Date Diagnosis Assessment Notes Treatment Notes Treatment Clinical Notes Jun, Anxiety, generalized (ICD-10 - F41.1) [email or web address] Other 11-17-2023 Evaluation note* Encounter Date Diagnosis Assessment Notes Treatment Notes Treatment Clinical Notes May, Acute cervical radiculopathy (ICD-10 - M54.12) [email or web address] Other 11-14-2023 Evaluation note* Encounter Date Diagnosis Assessment Notes Treatment Notes Treatment Clinical Notes May, Anxiety, generalized (ICD-10 - F41.1) May, Acute cervical radiculopathy (ICD-10 - M54.12) [facility] Other 10-23-2023 Evaluation note* Encounter Date Diagnosis Assessment Notes Treatment Notes Treatment Clinical Notes Apr, Acute cervical radiculopathy (ICD-10 - M54.12) [email or web address] Other 10-09-2023 Miscellaneous Notes* Telephone Encounter - Capo Meraz RN - 04/25/2023 11:47 AM EDT Attempted to reach emergency contact, Renetta Shinegus, of patient as we have not been [...] any questions. Capo Meraz RN, BSN Pre-Lung Staple Side Laster [facility]* Encounter Date Diagnosis Assessment Notes Treatment Notes Treatment Clinical Notes Mar, Acute cervical radiculopathy (ICD-10 - M54.12) [facility] Other 08-28-2023 Evaluation note* Encounter Date Diagnosis Assessment Notes Treatment Notes Treatment Clinical Notes Feb, Acute cervical radiculopathy (ICD-10 - M54.12) [email or web address] Other 08-24-2023 Miscellaneous Notes* Telephone Encounter - [...] being full. Capo Meraz RN, BSN Pre-Lung Staple Side Laster [facility]* Encounter Date Diagnosis Assessment Notes Treatment Notes Treatment Clinical Notes Feb, Type 2 diabetes mellitus with hyperglycemia, without long-term current use of insulin (ICD-10 - E11.65) [facility] Other 08-17-2023 Evaluation note* Encounter Date Diagnosis [...] lose weight to improved his severe COPD> [facility] Other 08-17-2023 Evaluation note* Encounter Date Diagnosis [...] lose weight to improve his lung function [email or web address] Other 07-27-2023 Evaluation note* Encounter Date Diagnosis Assessment Notes Treatment Notes Treatment Clinical Notes Jan, Acute cervical radiculopathy (ICD-10 - M54.12) [facility] Other 06-15-2023 Evaluation note* Encounter Date Diagnosis [...] the zephyr procedure can be started through [place]. Keep appt in January w his office. [email or web address] Other 04-28-2023 Evaluation note* Encounter Date Diagnosis Assessment Notes Treatment Notes Treatment Clinical Notes Oct, Acute cervical radiculopathy (ICD-10 - M54.12) [email or web address] Other 02-16-2023 Evaluation note* Encounter Date Diagnosis Assessment Notes Treatment Notes Treatment Clinical Notes Aug, Chronic obstructive pulmonary disease (ICD-10 - J44.9) Continue present meds including lengthy steroid taper. Continue to followup w Dr. Gonzalez. He has not heard anything lately from [facility] transplant dept. [email or web address] Other 04-27-2022 Miscellaneous Notes* Telephone Encounter - [...] options. Maxim[facility] Trans[facility] Miscellaneous Notes* Telephone Encounter - Molly Gan APRN.NGOZI - 11/04/2021 2:27 PM EDT Patient not in attendance for lung transplant appts on 11/04. Attempted to contact patient to reschedule. VM left requesting call back. Molly Gan, MSN, CERTIFIED COURT INTERPRETER-OPEN SOURCE DEVELOPER Lung Staple Side Laster [facility] Diagnosis Chronic obstructive pulmonary disease, unspecified COPD type (HCC)- Primary Lung transplant candidate documented in this encounter [facility] note* Diagnosis Blarq-3-ypxjqzxvssl deficiency (HCC)- Primary Nflog-1-bjvtprepnzz deficiency documented in this encounter [facility] noteNo [facility] Other Evaluation note* Diagnosis Onset Date Resolution Status Skin lesion of right arm [facility] Work Phone: History general Narrative - Reported* Type Description Date Medical History Hypertension Medical History COPD Medical History RANCHO Medical History Centrilobular Emphysema Medical History Obesity Medical History Alpha 1 Antitrypsin Deficieny Medical History Depression Medical History Diabetes Type 2 Medical History GERD Medical History Essential Hypertension. Surgical History heart catheterization, no stent s Hospitalization History SEE ABOVE [email or web address] Other Summary Purpose Family History No Family History Records Found Relationship Condition Age at Onset Recorded Date/T fadi father Malignant neoplasm Unknown Family history of lung cancer Unknown Unknown Advance Directives No Advanced Directives Records Found Advance Directive Response Recorded Date/ Time Advance Directives No August 11:59am Chief Complaint and Reason for Visit Chief Complaint skin cancer spot? Amb Documentation Medication Check Reason for Visit Skin lesion of right arm Additional Source Comments (unrecognized sect ion and content) No Status Records FoundNo Status Records FoundNo Status Records FoundNo Status Records Found INFORMATION SOURCE (unrecogn ized section and content) DATE CREATED AUTHOR 03/17/2019 [facility] DATE CREATED AUTHOR AUTHOR'S ORGANIZ ATION 10/06/2022 [facility] DATE CREATED AUTHOR AUTHOR'S ORGANIZ ATION 04/25/2023 [facility] DATE CREATED AUTHOR AUTHOR'S ORGANIZ ATION 01/11/2024 [facility] Source Comments (unrecognize d section and content) In the event this informatio n is protected by the Federal Confidentiality of Alcohol and Drug Abuse Patient Records regulations: The Federal rules restrict any use of the information to criminally investigate or prosecute any alcohol or drug abuse patient.[facility] the event this information is protected by the Federal Confidentiality of Alcohol and Drug Abuse Patient Records regulations: The Federal rules restrict any use of the information to criminally investigate or prosecute any alcohol or drug abuse patient.[facility] the event this information is protected by the Federal Confidentiality of Alcohol and Drug Abuse Patient Records regulations: The Federal rules restrict any use of the information to criminally investigate or prosecute any alcohol or drug abuse patient.[facility] the event this information is protected by the Federal Confidentiality of Alcohol and Drug Abuse Patient Records regulations: The Federal rules restrict any use of the information to criminally investigate or prosecute any alcohol or drug abuse patient.[facility] HospitalIn the event this information is protected by the Federal Confidentiality of Alcohol and Drug Abuse Patient Records regulations: The Federal rules restrict any use of the information to criminally investigate or prosecute any alcohol or drug abuse patient.[facility] HospitalIn the event this information is protected by the Federal Confidentiality of Alcohol and Drug Abuse Patient Records regulations: The Federal rules restrict any use of the information to criminally investigate or prosecute any alcohol or drug abuse patient.[facility] Care Teams (unrecognized sec tion and content) Electronic Systems Technician Relationship Specialty Start Date End Date Janet Cowart MD [address] [place] [address] PCP - General Family Practice 03/12/20 Vanda Gonzalez DO Referring Pulmonary and Critical Care Medicine 03/12/20 Electronic Systems Technician Relationship Specialty Start Date End Date Janet Cowart MD [address] [place] [address] PCP - General Family Practice 03/12/20 Vanda Gonzalez DO Referring Pulmonary and Critical Care Medicine 03/12/20 Electronic Systems Technician Relationship Specialty Start Date End Date Janet Cowart MD [address] [place] [id number] PCP - General Family Practice 03/12/20 Vanda Gonzalez DO Referring Pulmonary and Critical Care Medicine 03/12/20 Electronic Systems Technician Relationship Specialty Start Date End Date Janet Cowart MD [address] [place] [id number] PCP - General Family Medicine 03/12/20 Vanda Gonzalez DO [address] [place] [address] Referring Pulmonary and Critical Care Medicine 03/12/20 Team Status: Active Member Role Status Dates Janet Cowart MD Primary Care Provider Active Team Status: Inactive Member Role Status Dates Janet Cowart MD Primary Care Provide r, Attending Provider Active Start: September 15, 2023 End: September 15, 2023 Team Status: Active Member Role Status Dates Janet Cowart MD Primary Care Provider Active Start: October 03, 2023 RICK Zamora Attending Provider Active Start : October 03, 2023 Team Status: Inactive Member Role Status Dates Janet Cowart MD Primary Care Provide r, Attending Provider Active Start: November 11, 2023 End: November 11, 2023 Reason for Visit (unrecogniz ed section and content) Reason Comments Missed appointments Reason Comments Patient Update Reason Comments Follow up on Lung Transplant Referral Reason Comments Closing Referral Goals (unrecognized section and content) Goals may be documented in a n alternate section FOR RECORDS PERTAINING TO PATIENTS WHO ARE [...] BE BASED ON THE PRIMARY CLINICAL RECORDS. [facility] [facility]. provides no warranty or guarantee of the accuracy or completeness of information in this document.
== END 2024-01-13 16:03 | disposition home or self-care (01) ==
LOC: CT 16:03
PROVIDERS: PCP Internal Medicine; Visit Provider Internal Medicine
DX: Z87.891 Personal history of nicotine dependence (principal); Z12.2 Encounter for screening for malignant neoplasm of respiratory organs
CPT/HCPCS: 71271

== ENCOUNTER 2024-04-28 14:26 | Inpatient (IN) | payer MEDICARE, SELFPAY ==
[2024-04-28] VITALS (44 sets, daily range): BP systolic 117–169; BP diastolic 80–105; PULSE 75–100; TEMP 36.5–36.6; O2SAT 80–100; BMI 36.9
--- OUTSIDE RECORDS SUMMARY | 2024-04-28 14:36 | XMS_ITS | CCD ---
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 Name Role Phone ELTAHAWY, EHAB A Admitting Unavailable ELTAHAWY, EHAB A Attending Unavailable BRYON COWART Referring Unavailable ELTAHAWY, EHAB A Primary Care Unavailable Bryon Cowart MD Primary Care Provider [phone] Sam DO, Vanda P Unavailable [phone] Bryon Cwoart Unavailable SAMSA ., VANDA Admitting Unavailable SAMSA ., VANDA Attending Unavailable DR BRYON COWART Primary Care Unavailable DR BRYON COWART Primary Care Unavailable HEBERT JURADO Consulting Unavailable HEBERT JURADO Attending Unavailable RHIANNON, HEBERT Admitting Unavailable SOLA SHELL Consulting Unavailable DR BRYON COWART Primary Care Unavailable BENI .JAYDA Consulting Unavailable BENI .JAYDA Attending Unavailable BENI ., JAYDA Admitting Unavailable GERARD ESPANA Consulting Unavailable EDDI ., DR EVERETTE Richey Consulting Unavailable MONTAGUE ., DR EVERETTE Richey Attending Unavailable EDDI ., DR EVERETTE Richey Admitting Unavailable DR BRYON COWART Primary Care Unavailable JAYDA MCCORMICK Consulting Unavailable , BERTA Consulting Unavailable YADIRA BALLESTEROS Consulting Unavailable DR BRYON COWART Primary Care Unavailable MONTAGUE ., DR EVERETTE Richey Consulting Unavailable MONTAGUE ., DR EVERETTE Richey Attending Unavailable MONTAGUE ., DR EVERETTE Richey Admitting Unavailable GRECHNY .JOSE Consulting UnavailHEBERT Garcia Consulting Unavailable SOLA SHELL Consulting Unavailable SISTER, BERTA Consulting Unavailable DR BRYON COWART Primary Care Unavailable SAMSA ., VANDA Attending Unavailable SAMSA ., VANDA Admitting Unavailable DR BRYON COWART Primary Care Unavailable SAMSA ., VANDA Attending Unavailable SAMSA ., VANDA Admitting Unavailable SAMSA ., VANDA Admitting Unavailable SAMSA ., VANDA Consulting Unavailable SAMSA ., VANDA Attending Unavailable DR BRYON COWART Primary Care Unavailable SOFYA, DR BRYON Richey Primary Care Unavailable SOFYA, DR BRYON Richey Consulting Unavailable SOFYA, DR BRYON Richey Attending Unavailable SOFYA, DR BRYON Richey Admitting Unavailable SOFYA, DR BRYON Richey Primary Care Unavailable SAI, DR JUSTINE Mendoza Consulting Unavailable SAI, DR JUSTINE Mendoza Attending Unavailable SAI, DR JUSTINE Mendoza Admitting Unavailable GERARD WOLFF Consulting Unavailable SOLO, SHAIKH Jose Attending Unavailable SHAIKH BANDA H Admitting Unavailable CUCO ., JOSE ESPINO Consulting Unavaildemetria e SOFYA, DR BRYON Richey Primary Care Unavailable DAVID GIBBS Consulting Unavailable Rubén Pina Unavailable Bryon Cowart MD Primary Care Provider Vanda Gonzalez DO Unavailable [phone] SARAH KEITH Primary Care Physician NGOZI KEITH SARAH A Attending Unavailabl e INNA, MINIBUS DRIVER SARAH A Attending Unavailabl e INNA, MINIBUS DRIVER SARAH A Attending Unavailabl e INNA, MINIBUS DRIVER SARAH A Attending Unavailabl e INNA, MINIBUS DRIVER SARAH A Attending Unavailabl e INNA, MINIBUS DRIVER SARAH A Admitting Unavailabl e INNA, MINIBUS DRIVER SARAH A Attending Unavailabl e INNA, MINIBUS DRIVER SARAH A Attending Unavailabl e INNA, SARAH A Admitting Unavailable INNA SARAH A Attending Unavailable INNA, SARAH A Attending Unavailable Allergies Allergy Classification Reported Allergen(s) Allergy Type Date of Onset Reaction(s) Facility (20 sources) metFORMIN; Translations: [metformin] Drug Allergy 1 Intolerance, Diarrhea (finding) [facility] (4 sources) metFORMIN Drug Allergy Diarrhea Vibease Other (1 source) metFORMIN Drug Allergy 2 [facility] Repository Medications Current Medications Medication Drug Class(es) Dates Sig (Normalized) Sig (Original) 0.25 MG, 0.5 MG Dose 3 ML semaglutide 0.68 MG/ML Pen Injector [Ozempic] (11 sources) Start: 12-28-2023 inject 0.5 mg by subcutaneous injection every week Ozempic 2 mg/3 mL (0.25 mg or 0.5 mg dose) subcutaneous solution 0.5 mg, SubCutaneous, qWeek, Refills(s) 0 Start Date: 12/28/23 Status: Ordered inject 0.5 mg by sub cutaneous injection [...] Active 1 TAB PO Every 6 hours October 03, 2023 Start: 08-10-2023 take 1 [...] hours as needed dx: J44.9 COPD Active 120 actuat albuterol 0.1 mg/actuat / ipratropium bromide 0.02 mg/actuat inhalation spray (19 sources) Anticholinergic, beta2-Adrenergic Agonist Start: 12-28-2023 take 1 puff(s) by inhalation four times daily Combivent Respimat 20 mcg-100 mcg 1 puff(s), Inhalation, QID, 4 gram, Refill(s) 0 Start Date: 12/28/23 Status: Ordered Start: 02-17-2021 take 20-100 ug by in halation four times daily COMBIVENT RESPIMAT 20-100 mcg/actuation inhaler INHALE 1 PUFF BY MOUTH 4 TIMES A DAY 0 02/17/2021 Active Comment on above: INHALE 1 PUFF BY BEVERLY 4 TIMES A DAY alpha 1-proteinase inhibitor, human 1 mg injection (20 sources) Human alpha-1 Proteinase Inhibitor Start: 09-14-2023 Alpha-1 Proteinase Inhib.(Hum) Active MG IV As Directed September 14, 2023 1:00am Prolastin-C 1000 MG as directed Intravenous Active ALPRAZolam 0.5 mg oral tablet (20 sources) Benzodiazepine Start: 09-14-2023 End: 09-27-2023 take 0.5 mg by mouth twice daily Alprazolam Active 0.5 MG PO Twice daily 60 30 September 27, 2023 10:35am Start: 08-26-2023 take 1 tablet by beverly twice daily as needed ALPRAZolam 0.5 MG 1 tablet Orally Twice a day prn for 30 days Aug, Active Start: 08-01-2023 take 1 tablet by beverly twice daily as needed ALPRAZolam 0.5 MG 1 tablet Orally Twice a day prn for 30 days Jul, Active Start: 06-25-2023 take 1 tablet by beverly twice daily as needed ALPRAZolam 0.5 MG 1 tablet Orally Twice a day prn for 30 days Jun, Active Start: 05-31-2023 take 1 tablet by beverly twice daily as needed ALPRAZolam 0.5 MG 1 tablet Orally Twice a day prn for 30 days May, Active Start: 03-22-2023 take 1 tablet by beverly twice daily as needed ALPRAZolam 0.5 MG [...] oral tablet (20 sources) Atypical Antipsychotic Start: 12-28-2023 take 1 tablet by mouth once daily aripiprazole 10 mg Tab 10 mg = 1 tab(s), Oral, Daily, Refills(s) 0 Start Date: 12/28/23 Status: Ordered Start: 09-14-2023 take 10 mg by mouth once daily Aripiprazole Active 10 MG PO Daily September 14, 2023 1:00am Start: 02-27-2021 take 1 tablet by beverly th once daily ARIPiprazole (ABILIFY) 10 mg tablet Take 10 mg by mouth once daily. 0 02/27/2021 Active Comment on above: Take 10 mg by mouth once daily. aspirin 81 mg delayed release oral tablet (7 sources) Platelet Aggregation Inhibitor, Nonsteroidal Anti-inflammatory Drug Start: 12-28-2023 take 1 tablet by mouth once daily aspirin 81 mg Oral EC Tab 81 mg = 1 tab(s), Oral, Daily, Refills(s) 0 Start Date: 12/28/23 Status: Ordered Start: 02-07-2021 take 1 tablet by beverly th once daily aspirin, enteric coated (ASPIRIN, ENTERIC COATED) 81 mg EC tablet Take 81 mg by mouth once daily. 0 02/07/2021 Active Comment on above: Take 81 mg by mouth once daily. Cpap (Continuous Positive Airway Pressure) (1 source) Start: 09-14-19 Cpap (Continuous Positive Airway Pressure) Active 0 .Route September 14, 2023 1:00am As directed CPAP Machine (20 sources) CPAP Machine As Directed Active cyclobenzaprine hydrochloride 5 mg oral tablet (20 sources) Muscle Relaxant Start: 12-28-19 take 1 tablet by mouth twice daily cyclobenzaprine 5 mg Tab 5 mg = 1 tab(s), Oral, BID, Refills(s) 0 Start Date: 12/28/23 Status: Ordered Start: 09-14-2023 take 5 mg by mouth o nce daily at bedtime Cyclobenzaprine Active 5 MG [...] Start: 03-25-2021 take 1 capsule by mo ut once daily dilTIAZem CD (CARDIZEM CD) 240 mg 24 hr capsule Take 1 capsule by mouth once daily. 0 03/25/2021 Active Comment on above: Take 1 capsule by mo [facility] once daily. empagliflozin 25 mg oral [...] 25, 2023 2:52pm take 1 tablet by beverly once daily Jardiance 25 mg TAKE 1 TABLET BY MOUTH DAILY for 30 Active furosemide 40 mg oral tablet (1 source) Loop Diuretic Start: 12-28-2023 take 1 tablet by mouth once daily furosemide 40 mg Tab 40 mg = 1 tab(s), Oral, Daily, Refills(s) 0 Start Date: 12/28/23 Status: Ordered glipiZIDE 10 mg oral tablet (20 sources) Sulfonylurea Start: 12-28-2023 take 1 tablet by mouth twice daily glipiZIDE 10 mg Tab 10 mg = 1 tab(s), Oral, BID, Refills(s) 0 Start Date: 12/28/23 Status: Ordered Start: 09-19-2023 take 1 tablet by beverly twice daily Glipizide Active 0 .ROUTE .COMPLEX [...] 1:00am Start: 03-25-2021 take 2 tablets by mo uth twice daily guaiFENesin (MUCINEX) 600 mg 12 hr tablet Take 2 tablets by mouth twice daily. 0 03/25/2021 Active take 1 tablet by beverly every twelve hours Mucinex 600 MG 1 tablet as needed Orally every 12 hrs Active Comment on above: Take 2 tablets by mo uth twice daily. Handicap placards as directed (20 sources) Handicap placard s as directed as directed as directed as directed Active hydrOXYzine hydrochloride 25 mg oral tablet (1 source) Antihistamine Start: 01-24-20 take 1 tablet by mouth three times daily as needed for anxiety hydrOXYzine hydrochloride 25 mg Tab 25 mg = 1 tab(s), Oral, TID, PRN for anxiety, # 90 tab(s), Refills(s) 2, Pharmacy: [facility]/pharmacy #[id number], 177, cm, 01/24/24 10:21:00 EDT, Height/Length Dosing, 115.7, kg, 12/28/23 13:07:00 EDT, Weight Dosing Start Date: 01/24/24 Status: Ordered lisinopril 5 mg oral tablet (20 sources) Angiotensin Converting Enzyme Inhibitor Start: 12-28-19 take 1 tablet by mouth once daily lisinopril 5 mg Tab 5 mg = 1 tab(s), Oral, Daily, Refills(s) 0 Start Date: 12/28/23 Status: Ordered Start: 09-14-2023 take 5 mg by mouth once daily Lisinopril Active 5 MG PO Daily September 14, 2023 1:00am Start: 08-09-2022 take 1 tablet by beverly th every twenty-four hours Lisinopril 5 MG 1 tablet Orally Once a day Jul, Active 24 hr metoprolol succinate 25 mg extended release oral tablet (20 sources) beta-Adrenergic Shivam Start: 12-28-2023 take 1 tablet by mouth once daily metoprolol 25 mg ER Tab 25 mg = 1 tab(s), Oral, Daily, Refills(s) 0 Start Date: 12/28/23 Status: Ordered Start: 10-25-2023 take 1 tablet by beverly th once daily Metoprolol Succinate Active 0 .ROUTE .COMPLEX 90 October 25, 2023 2:51pm TAKE 1 TABLET BY MOUTH EVERY DAY Start: 09-14-2023 End: 10-25-2023 take 25 mg by mouth once daily Metoprolol Succinate Di scontinued 25 MG PO Daily September 14, 2023 1:00am October 25, 2023 2:52pm Start: 02-07-2021 take 1 tablet by beverly th once daily metoprolol succinate ER (TOPROL XL) 25 mg 24 hr tablet Take 25 mg by mouth once daily. 0 02/07/2021 Active Comment on above: Take 25 mg by mouth once daily. Mucinex DM 30 mg-600 mg Tab-ER (1 source) Start: 12-28-19 take 1 tablet by mouth twice daily as needed for congestion Mucinex DM 30 mg-600 mg Tab-ER See Instructions, Refill(s) 0, 1-2 orally twice a day as needed for chest congestion Start Date: 12/28/23 Status: Ordered mupirocin 0.02 mg/mg topical ointment (1 source) RNA Synthetase Inhibitor Antibacterial Start: 09-15-19 Mupirocin Active 1 APPLIC TOPICAL Twice daily September 15, 2023 1:00am Rush 3 1000 MG (20 sources) take 1 capsule by mouth once daily Rush 3 1000 MG 1 capsule Orally Once a day Active Rush-3 Fatty Acids (1 source) Start: 09-14-19 take 1000 mg by mouth once daily Rush-3 Fatty Acids Active 1000 MG PO Daily September 14, 2023 1:00am omeprazole 20 mg delayed release oral capsule (20 sources) Proton Pump Inhibitor Start: 12-28-19 take 1 capsule by mouth once daily omeprazole 20 mg Cap-DR 20 mg = 1 cap(s), Oral, Daily, Refills(s) 0 Start Date: 12/28/23 Status: Ordered Start: 10-17-2023 take 1 capsule by mo uth once daily in the morning Omeprazole Active 0 .ROUTE .COMPLEX 90 October 17, 2023 12:35pm TAKE 1 CAPSULE BY MOUTH EVERY DAY IN THE MORNING Start: 09-14-2023 End: 10-17-2023 take 20 mg by mouth once daily Omeprazole Discontinued 20 MG PO Daily September 14, 2023 1:00am October 17, 2023 12:35pm Start: 02-24-2021 take 1 capsule by mo uth once daily omeprazole (PRILOSEC) 20 mg capsule [...] a day for 30 days Jan, Active pravastatin sodium 80 mg oral tablet (19 sources) HMG-CoA Reductase Inhibitor Start: 2023 take 1 tablet by mouth once daily at bedtime pravastatin 80 mg Tab 80 mg = 1 tab(s), Oral, Once a day (at bedtime), # 90 tab(s), Refills(s) 1, Pharmacy: [facility]/pharmacy #[id number], 177, cm, 01/24/24 11:56:00 EDT, Height/Length Dosing, 111.6, kg, 01/24/24 11:57:00 EDT, Weight Dosing Start Date: 01/24/24 Status: Ordered Start: 03-25-2021 take 1 tablet by beverly th once daily at bedtime pravastatin (PRAVACHOL) 40 mg tablet Take 1 tablet by mouth daily at bedtime. 0 03/25/2021 Active take 1 tablet by beverly th every twenty-four hours Pravastatin Sodium 10 MG 1 tablet Orally Once a day for 30 day(s) Not-Taking Comment on above: Take 1 tablet by beverly th daily at bedtime. prednisoLONE (20 sources) Corticosteroid take 1 tablet by mouth once daily Prednisolone 20 mg 20 mg one tab orally daily Active predniSONE 20 mg oral tablet (7 sources) Start: 09-14-19 take 20 mg by mouth once daily Prednisone Active 20 MG PO Daily September 14, 2023 1:00am Start: 03-25-2021 take 1 tablet by beverly th once daily predniSONE (DELTASONE) 10 mg tablet Take 1 tablet by mouth once daily. 0 03/25/2021 Active Comment on above: Take 1 tablet by beverly th once daily. Prolastin-C (1 source) Start: 4 Prolastin-C See Instructions, 1000mg once a week, Refills(s) 0 Start Date: 12/28/23 Status: Ordered Semaglutide (2 sources) Start: 4 inject 0.5 mg by subcutaneous injection every [...] NACL 0.9% 25 mL FLUSH (I RB [id number]) Inject 10 mL intravenously. 0 02/13/2021 05/15/2022 Active Comment on above: Inject 10 mL intrave nously. theophylline 450 mg extended release oral tablet (20 sources) Methylxanthine Start: 01-24-20 take 1 tablet by mouth every twelve hours theophylline 450 mg ER Tab 450 mg = 1 tab(s), Oral, q12hr, # 180 tab(s), Refills(s) 0, Pharmacy: [facility]/pharmacy #[id number], 177, cm, 01/24/24 10:21:00 EDT, Height/Length Dosing, 115.7, kg, 12/28/23 13:07:00 EDT, Weight Dosing Start Date: 01/24/24 Status: Ordered Start: 09-14-2023 take 400 mg by mouth once judy y Theophylline Active 400 MG PO Daily September 14, 2023 1:00am Start: 12-25-2020 take 1 tablet by beverly th twice daily, then take 1 tablet by mouth every twenty-four hours theophylline ER (UNIPHYL) 400 mg 24 hr tablet Take 400 mg by mouth twice daily. 0 12/25/2020 Active take 1 tablet by beverly th every twenty-four hours Theophylline ER 400 MG 1 tablet Orally Once a day Active Comment on above: Take 400 mg by mouth twice daily. Trelegy Ellipta 100 mcg-62.5 mcg-25 mcg inhalation powder (1 source) Start: 12-28-19 take 1 puff(s) by inhalation once daily Trelegy Ellipta 100 mcg-62.5 mcg-25 mcg inhalation powder = 1 puff(s), Inhalation, Daily, Refills(s) 0 Start Date: 12/28/23 Status: Ordered 24 hr venlafaxine 150 mg extended release oral capsule (20 sources) Serotonin and Norepinephrine Reuptake Inhibitor Start: 12-28-19 take 1 capsule by mouth twice daily venlafaxine 150 mg Cap-ER 150 mg = 1 cap(s), Oral, BID, Refills(s) 0 Start Date: 12/28/23 Status: Ordered Start: 09-14-2023 take 1 capsule by mo [facility] twice daily at mealtime Venlafaxine (Effexor Xr) 150 mg capsule,extended release 24hr Active 150 MG PO Twice daily with meals September 14, 2023 1:00am Start: 03-03-2021 take 1 tablet by beverly twice daily VENLAFAXINE ER 150 MG TABLET,EXTENDED RELEASE 24 HR Take 150 mg by mouth twice daily. 0 03/03/2021 Active take 1 capsule by [facility] every twelve hours Effexor XR 150 MG 1 capsule with food Orally bid for 90 days Active take 1 capsule by mo [facility] every twenty-four hours Effexor XR 150 MG 1 capsule with food Orally Once a day for 30 days Active take 1 capsule by mo ut every twelve hours Effexor XR 75 MG 1 capsule with food Orally Twice a day for 30 days Active Comment on above: Take 150 mg by mouth twice daily. Completed/Discontinued Medications Medication Drug Class(es) Dates Sig (Normalized) Sig (Original) upwse-7-nntvmlqtts inhibitor (Human) 1,000 mg in water for injection (6 sources) Start: 03-25-20 21 inject 1000 mg intravenously every week xyudf-9-mecjerudeh inhibitor (Human) 1,000 mg in water for [...] 12 hrs for 10 day(s) Sep, Not-Taking Breo Ellipta 100-25 MCG/INH (12 sources) Start: [...] Once a day for 30 day(s) Not-Taking 0.25 mg, 0.5 mg dose 1.5 ml semaglutide 1.34 mg/ml pen injector (19 sources) Start: 02-18-20 21 OZEMPIC 0.25 mg or 0.5 mg(2 mg/1.5 mL) pnij INJECT 0.5MG SUBCUTANEOUSLY WEEKLY 0 02/17/2021 Active Comment on above: INJECT 0.5MG SUBCUTA NEOUSLY WEEKLY tiotropium 0.018 mg inhalation powder (12 sources) Anticholinergic Start: 12-19-19 14 take 1 capsule by inhalation once daily [...] Virus Nucleoside Analog DNA Polymerase Inhibitor Start: 12-29-19 21 take 2000 mg by mouth twice daily [...] anxiety disorder; Translations: [Generalized anxiety disorder] Chronic Comment on above: Noted in 12/28/2023 o ffice note, added per outpatient CDI policy. Chronic obstructive pulmonary disease and bronchiectasis (20 sources) Chronic obstructive lung disease; Translations: [Chronic obstructive pulmonary disease, unspecified] Onset: 9 Chronic Diabetes mellitus with complications (20 sources) Type 2 diabetes mellitus with hyperglycemia; Translations: [Type 2 diabetes mellitus] Onset: 3 Chronic Diabetes mellitus without complication (9 sources) Diabetes mellitus; Translations: [Type 2 diabetes mellitus without complications] Onset: 1 03-25-2021 Chronic Comment on above: Noted in 12/28/2023 o ffice note, added per outpatient CDI policy. 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 CHLORIDE OPERATOR USE ORAL HYPOGLYCEMIC DX] Onset: 3 Episodic Other aftercare (4 sources) Encounter for therapeutic drug level monitoring; Translations: [ENC THERAPEUTC DRUG LEVL MONITORING] Onset: 3 Episodic Other lower respiratory disease (4 sources) Shortness of breath; Translations: [SHORTNESS OF BREATH] Onset: 3 Episodic Other lower respiratory disease (4 sources) Hypoxemia; Translations: [HYPOXEMIA] Onset: 3 Episodic Other nutritional; endocrine; and metabolic disorders (8 sources) Qnjch-0-lsompqxpcrv deficiency; Translations: [Vazbz-5-hojxixcxgbk deficiency] Onset: 1 03-25-2021 Chronic Other nutritional; [...] nutritional; endocrine; and metabolic disorders (1 source) Hcmrt-6-burdcndsneu deficiency; Translations: [ZHPNX-3-VSCAHAYRJJG DEFICIENCY] Onset: 3 Chronic Other nutritional; endocrine; and metabolic disorders (20 sources) Severe obesity; Translations: [Morbid (severe) obesity due to excess calories] Chronic Other nutritional; endocrine; and metabolic disorders (20 sources) Body mass index 30+ - obesity; Translations: [Body mass index (BMI) 39.0-39.9, adult] 01-24-2024 Chronic Other nutritional; endocrine; and metabolic disorders [...] Radiculopathy, cervical region; Translations: [Cervical radiculopathy] Episodic Substance-related disorders (1 source) History of drug abuse 01-24-2024 Chronic Unclassified (4 sources) CONTACT W/AND (SUSP) EXPOS [...] Results Test Name Value Interpretation Reference Range Facil ity Pre-Visit Planningon 024 Pre-Visit Planning Pre-Visit Planning - From: Wanda BRYANT, Yesenia To: SARAH KEITH CNP; Sent: 04/23/2024 12:51:08 EDT Subject: Pre-Visit Planning Due Date/Time: 04/23/2024 12:51:00 EDT Caller Name: RICARDO HYLTON; Caller Number: , Stephen Mcnally, back in January you responded to the below query that you added to diagnosis. However, it was not on problem list. If Mr. Hylton continues to use home oxygen chronically could you please add and document on chronic hypoxic respiratory failure if accurate? 01/24/2024 office note-2. Emphysema/COPD (J43.9: Emphysema, unspecified) Patient using Trelegy inhaler daily as directed with effectiveness. PRN rescue inhaler is used as needed. Encouraged to remain active. Patient is on 4 liters of oxygen, nasal cannula. Will continue to monitor for changes and/or concerns with office visits. Pulse ox today was 93%. 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 Patient admits to be a little more SOB today. Follows up as directed and prn with pcp. Addendum by SARAH KEITH CNP on January 24, 2024 11:51:10 EDT (Verified) - From: SARAH KEITH CNP To: Yesenia Muñoz RN; Sent: 01/24/2024 11:51:10 EDT Subject: RE: Pre-Visit Planning Caller Name: RICARDO HYLTON; Caller Number: H , M Added to diagnosis - From: Yesenia Muñoz RN To: SARAH KEITH CNP; Sent: 01/17/2024 10:07:43 EDT Subject: Pre-Visit Planning Due Date/Time: 01/17/2024 10:07:00 EDT Caller Name: RICARDO HYLTON; Caller Number: H , M Stephen Mcnally, *Based on your response below, can you please update the chronic problem list and address during this visit if appropriate?* During a pre-visit planning chart review, I noted the following documentation in the medical record: Problem list: Emphysema/COPD 12/28/2023 office note-2. Emphysema/COPD (J43.9: Emphysema, unspecified) Pulse oX 96 % on 3 LPM of Oxygen per nasal cannula Continue with pulmonolgy as scheduled Continue Combivent & Trelegy Ellipta as ordered F/u in 6 months He reports he was released from Dr. Cowart's care d/t misuse of schedule II medications. Based on your medical judgment, can you further clarify the following? -Chronic hypoxic respiratory failure -Other (please specify): I can update the problem list with your specified response if you would like. In responding to this request, please exercise your independent professional judgement. The fact that a question is asked does not imply that any particular answer is desired or expected. If you have any questions, please feel free to contact me at extension [phone]. Thank you! Yesenia Muñoz, ARIELN, RN, CCM, CCDS, CCDS-O CDI Operations Label Clerk [place] [id number] P: [phone] F: [phone] [email or web address] - From: SARAH KEITH CNP To: Yesenia Muñoz RN; Sent: 04/24/2024 13:57:06 EDT Subject: RE: Pre-Visit Planning Caller Name: RICARDO HYLTON; Caller Number: H , M Patient did not show for his appointment however, dx added to the chronic list. Normal [facility] Pre-Visit Planning Pre-Visit Planning - From: Yesenia Muñoz RN To: SARAH KEITH CNP; Sent: 04/23/2024 12:47:25 EDT Subject: Pre-Visit Planning Due Date/Time: 04/23/2024 12:47:00 EDT Caller Name: RICARDO HYLTON; Caller Number: H , M bernice Whatley in January you responded to the below query that you added to diagnosis. However, it was not on problem list. If Mr. Hylton has a BMI over 35 could you please add and document on morbid obesity, class 2 severe obesity with serious comorbidity in adult, or class 3 severe obesity with serious comorbidity in adult? Addendum by SARAH KEITH CNP on January 24, 2024 11:50:53 EDT (Verified) - From: SARAH KEITH CNP To: Yesenia Muñoz RN; Sent: 01/24/2024 11:50:53 EDT Subject: RE: Pre-Visit Planning Caller Name: RICARDO HYLTON; Caller Number: H , M Added to diagnosis - From: Yesenia Muñoz RN To: SARAH KEITH CNP; Sent: 01/17/2024 10:02:44 EDT Subject: Pre-Visit Planning Due Date/Time: 01/17/2024 10:02:00 EDT Caller Name: RICARDO HYLTON; Caller Number: H , M Stephen Mcnally, *Based on your response below, can you please update the chronic problem list and address during this visit if appropriate?* During a pre-visit planning chart review, I noted the following documentation in the medical record indicates that this patient had a BMI of 36 on 12/29/2022. The [employer] defines obesity as morbid if the patient demonstrates a BMI of over 40, or a BMI of 35 or more and at least one weight-related comorbid condition, such as diabetes or hypertension. Examples of weight-related comorbidities include diabetes, heart disease, stroke, hypertension, and arthritis. Current problem list: Anxiety, Diabetes, Emphysema Based on your medical judgment, can you further clarify the following diagnosis that correlates with the BMI listed above if the current BMI is still 35 or over? - Morbid obesity (please also include additional diagnosis to reflect current BMI) - Class 2 severe obesity with serious comorbidity in adult (please also include additional diagnosis to reflect current BMI) - Class 3 severe obesity with serious comorbidity in adult (please also include additional diagnosis to reflect current BMI) - Other (please specify): I can update the problem list with your specified response if you would like. In responding to this request, please exercise your independent professional judgment. The fact that a question is asked does not imply that any particular answer is desired or expected. If you have any questions, please feel free to contact me at extension [phone]. Thank you! Yesenia Muñoz, ARIELN, RN, CCM, CCDS, CCDS-O CDI Operations Label Clerk [address] [address] P: [phone] F: [phone] [email or web address] - From: SARAH KEITH CNP To: Wanda BRYANT, Yesenia; Sent: 04/24/2024 13:56:56 EDT Subject: RE: Pre-Visit Planning Caller Name: RICARDO HYLTON; Caller Number: Jose , M Patient did not show for his appointment however, dx added to the chronic list. Normal [facility] Interdisciplinary Note - Soc ial Workeron 01-30-2024 Interdisciplinary Note - Sewer Builder Interdisciplinary Note - Sewer Builder Consult for positive depression screen received. Per chart notes, patient's depression screen and PHQ9 were both negative. No SW needs at this time. SW will remain available. Normal [facility] Ambulatory Visit Summaryon 0 01-24-2024 Ambulatory Visit Summary Ambulatory Visit Summary RICARDO HYLTON :1960 Visit Date:01/24/2024 Ambulatory Visit Instructions Your Diagnosis Medicare annual wellness visit, initial Emphysema/COPD Type 2 diabetes mellitus with complication On statin therapy History of opioid abuse Obesity due to excess calories Screening for colon cancer Encounter for hepatitis C screening test for low risk patient Your Care Team Attending Physician - SARAH KEITH CNP Primary Care Physician - SARAH KEITH CNP This Is Your Medications List albuterol-ipratropiu m (Combivent Respimat 20 mcg-100 mcg) alpha 1-proteinase inhibitor (Prolastin-C) aripiprazole (aripiprazole 10 mg Tab) aspirin (aspirin 81 mg Oral EC Tab) cyclobenzaprine (cyclobenzaprine 5 mg Tab) dextromethorphan-gua ifenesin (Mucinex DM 30 mg-600 mg Tab-ER) fluticasone/umeclidi nium/vilanterol (Trelegy Ellipta 100 mcg-62.5 mcg-25 mcg inhalation [...] Cap-ER) Procedures Performed Cardiac catheter. Discharge Vitals Heart Rate (Peripheral) 100 Blood Pressure 138/90 Height 177 cm Height 70 in Weight 111.6 kg Weight 245.52 lb BMI 35.62 What to do next Scheduled Follow-Up Appointments Tuesday 1:40 PM EDT With: SARAH KEITH CNP Where: [facility] Normal [address] [place] [address] \.br\ You Need to Complete the Following\.br\ HCV Antibody RFX to Quant PCR, Blood, Routine collect, 01/24/24, Order for future visit, Lab Collect, Encounter for hepatitis C screening test for low risk patient, Not Required, Print Label By Order Location\.br\ Medications\.br\ What How Much When Why Instructions\.br\ Unchanged albuterol-ipratro pium (Combivent Respimat 20 mcg-100 mcg) 1 Puffs Inhalation 4 times a day\.br\ Unchanged alpha 1-proteinase inhibitor (Prolastin-C) See instructions 1000mg once a week \.br\ Unchanged aripiprazole (aripiprazole 10 mg Tab) 1 Tablets By Mouth Every day\.br\ Unchanged aspirin (aspirin 81 mg Oral EC Tab) 1 Tablets By Mouth Every day\.br\ Unchanged cyclobenzaprine (cyclobenzaprine 5 mg Tab) 1 Tablets By Mouth 2 times a day\.br\ Unchanged dextromethorphan- guaifenesin (Mucinex DM 30 mg-600 mg Tab-ER) See instructions 1-2 orally twice a day as needed for chest congestion \.br\ Unchanged fluticasone/ umeclidinium/ vilanterol (Trelegy Ellipta 100 mcg-62.5 mcg-25 mcg inhalation powder) 1 Puffs Inhalation Every day\.br\ Unchanged furosemide (furosemide 40 mg Tab) 1 Tablets By Mouth Every day\.br\ Unchanged glipiZIDE (glipiZIDE 10 mg Tab) 1 Tablets By Mouth 2 times a day\.br\ Unchanged hydrOXYzine (hydrOXYzine hydrochloride 25 mg Tab) 1 Tablets By Mouth 3 times a day as needed for for anxiety Anxiety\.br\ Unchanged lisinopril (lisinopril 5 mg Tab) 1 Tablets By Mouth Every day\.br\ Unchanged metoprolol (metoprolol 25 mg ER Tab) 1 Tablets By Mouth Every day\.br\ Unchanged omeprazole (omeprazole 20 mg Cap-DR) 1 Capsules By Mouth Every day\.br\ Unchanged pravastatin (pravastatin 40 mg Tab) 1 Tablets By Mouth Every day\.br\ Unchanged semaglutide (Ozempic 2 mg/ 3 mL (0.25 mg or 0.5 mg dose) subcutaneous solution) 0.5 Milligram Subcutaneous Every week\.br\ Unchanged theophylline (theophylline 450 mg ER Tab) 1 Tablets By Mouth Every 12 hours\.br\ Unchanged venlafaxine (venlafaxine 150 mg Cap-ER) 1 Capsules By Mouth 2 times a day\.br\ Allergies\.br\ metFORMIN (Diarrhea)\.br\ Problems\.br\ Ongoing - Any problem that you are currently receiving treatment for.\.br\ Anxiety\.br\ Emphysema/COPD\.b r\ History of opioid abuse\.br\ Obesity (BMI 30-39.9)\.br\ Type 2 diabetes mellitus with complication\.br\ Patient Survey\.br\ You may receive a survey via text or e-mail asking about your office visit. Please share your experience with us by completing your survey. We appreciate your feedback and thank you for choosing us for your care.\.br\ Education Materials\.br\ Cancer Screening for Men\.br\ A cancer screening is a test or exam that checks for cancer. Your health care provider will recommend specific cancer screenings based on your age, medical history (including risk factors), and family history of cancer. Work with your health care provider to create a cancer screening schedule that protects your health.\.br\ Who should have screening?\.br\ All men should be considered for screening of certain cancers, including colorectal cancer, prostate cancer, lung cancer, and skin cancer. Your health care provider may recommend screenings for other types of cancer if:\.br\ ? \.br\ You had cancer before.\.br\ ? \.br\ You have a family member with cancer.\.br\ ? \.br\ You have abnormal genes that could increase the risk of cancer.\.br\ ? \.br\ You have risk factors for certain cancers, such as current or past use of tobacco products, or being overweight.\.br\ When you should be screened for cancer depends on:\.br\ ? \.br\ Your age.\.br\ ? \.br\ Your medical history and your family's medical history.\.br\ ? \.br\ Certain lifestyle factors, such as smoking or other use of tobacco products.\.br\ ? \.br\ Environmental exposure, such as to asbestos.\.br\ How is screening done?\.br\ Colorectal cancer\.br\ All adults should have screenings starting at age 45 and continuing until age 75. Your health care provider may recommend screening before age 45. You will have tests every 1?10 years, depending on your results and the type of screening test. People at increased risk should start screening at an earlier age. Talk with your health care provider about which screening test is right for you and how often you should be screened.\.br\ Colorectal cancer screening looks for cancer or for growths called polyps that often form before cancer starts. Tests to look for cancer or polyps include:\.br\ ? \.br\ Colonoscopy or flexible sigmoidoscopy. For these procedures, a flexible tube with a small camera is inserted into the rectum.\.br\ ? \.br\ CT colonography. This test uses X-rays and a contrast dye to check the colon for polyps. If a polyp is found, you may need to have a colonoscopy so the polyp can be located and removed.\.br\ Tests to look for cancer in the stool (feces) include:\.br\ ? \.br\ Guaiac-based fecal occult blood test (FOBT). This test can find blood in stool. It can be done at home with a kit.\.br\ ? \.br\ Fecal immunochemical test (FIT). This test can find blood in stool. For this test, you will need to collect stool samples at home.\.br\ ? \.br\ Stool DNA test. This test looks for blood in stool and any changes in DNA that can lead to colon cancer. For this test, you will need to collect a stool sample at home and send it to a lab.\.br\ Prostate cancer\.br\ Prostate cancer screening for men with average risk may start at age 50. Men with risk factors may need to be screened earlier, at ages 40?45. Talk with your health care provider about whether screening is right for you and, if so, how often you should be screened.\.br\ Prostate cancer screening is done with blood tests and a digital rectal exam. During this exam, a health care provider uses a gloved finger to check prostate size. You may need to be screened for prostate cancer if:\.br\ ? \.br\ You have risk factors for prostate cancer, such as being or having a close family member with prostate cancer.\.br\ ? \.br\ You have had gene changes or a genetic condition that was passed on to you from a parent (inherited). These gene changes or genetic conditions include BRCA1 or BRCA2 gene mutations or Rios syndrome.\.br\ ? \.br\ You have symptoms of prostate cancer, such as problems urinating or problems getting or keeping an erection (erectile dysfunction).\.br \ When you have been screened for prostate cancer, future screening may be recommended based on the results of your blood tests.\.br\ Lung cancer\.br\ \.br\ Lung cancer screening is done with a CT scan that looks for abnormal changes in the lungs. Discuss lung cancer screening with your health care provider if you are 50?80 years old and if any of the following apply to you:\.br\ ? \.br\ You currently smoke.\.br\ ? \.br\ You used to smoke heavily.\.br\ ? \.br\ You have a smoking history of 1 pack of cigarettes a day for 20 years or 2 packs a day for 10 years.\.br\ ? \.br\ You have quit smoking within the past 15 years.\.br\ You may need to be screened every year if you smoke heavily or if you used to smoke.\.br\ Skin cancer\.br\ Skin cancer screening is done by checking the skin for unusual moles or spots and any changes in existing moles. Your health care provider should check your skin for signs of skin cancer at every physical exam. You should check your skin every month and tell your health care provider right away if anything looks unusual. Men with a ektagr-iwcu-ysezw l risk for skin cancer may want to see a lambskin trimmer (county health officer) for an annual body check.\.br\ What are [facility] Ambulatory Visit Summary Ambulatory Visit Summary RICARDO HYLTON :1960 Visit Date:01/24/2024 Ambulatory Visit Instructions Your Diagnosis Anxiety Type 2 diabetes mellitus with complication Hyperlipidemia Screening for prostate cancer Your Care Team Attending Physician - SARAH KEITH CNP Primary Care Physician - SARAH KEITH CNP This Is Your Medications List hydrOXYzine (hydrOXYzine hydrochloride 25 mg Tab) theophylline (theophylline 450 mg ER Tab) Contact prescribing physician if questions or concerns albuterol-ipratropiu m (Combivent Respimat 20 mcg-100 mcg) alpha 1-proteinase inhibitor (Prolastin-C) aripiprazole (aripiprazole 10 mg Tab) aspirin (aspirin 81 mg Oral EC Tab) cyclobenzaprine (cyclobenzaprine 5 mg Tab) dextromethorphan-gua ifenesin (Mucinex DM 30 mg-600 mg Tab-ER) fluticasone/umeclidi nium/vilanterol (Trelegy Ellipta 100 mcg-62.5 mcg-25 mcg inhalation powder) furosemide (furosemide 40 mg Tab) glipiZIDE (glipiZIDE 10 mg Tab) lisinopril (lisinopril 5 mg Tab) metoprolol (metoprolol 25 mg ER Tab) omeprazole (omeprazole 20 mg Cap-DR) pravastatin (pravastatin 40 mg Tab) semaglutide (Ozempic 2 mg/3 mL (0.25 mg or 0.5 mg dose) subcutaneous solution) venlafaxine (venlafaxine 150 mg Cap-ER) Procedures Performed Cardiac catheter. Discharge Vitals Temperature (Temporal Artery) 37.0 ?C Heart Rate (Peripheral) 84 Respiratory Rate 18 Blood Pressure 138/90 Height 177.0 cm Height 70 in Weight 111.6 kg Weight 245.52 lb BMI 35.62 What to do next You Need to Schedule the Following Appointments Follow Up with SARAH KEITH CNP, FAM When: Within 3 months Comments: Diabetes & COPD Where: [address] [place] [address] Business (1) Medications What How Much When Why Instructions Changed theophylline (theophylline 450 mg ER Tab) 1 Tablets By Mouth Every 12 hours Pickup at [facility]/pharmacy #[id number] Unchanged hydrOXYzine (hydrOXYzine hydrochloride 25 mg Tab) 1 Tablets By Mouth 3 times a day as needed for for anxiety Anxiety Pickup at [facility]/pharmacy #[id number] Unchanged albuterol-ipratropiu m (Combivent Respimat 20 mcg-100 mcg) 1 Puffs Inhalation 4 times a day Contact prescribing physician if questions or concerns Unchanged alpha 1-proteinase inhibitor (Prolastin-C) See instructions 1000mg once a week Contact prescribing physician if questions or concerns Unchanged aripiprazole (aripiprazole 10 mg Tab) 1 Tablets By Mouth Every day Contact prescribing physician if questions or concerns Unchanged aspirin (aspirin 81 mg Oral EC Tab) 1 Tablets By Mouth Every day Contact prescribing physician if questions or concerns Unchanged cyclobenzaprine (cyclobenzaprine 5 mg Tab) 1 Tablets By Mouth 2 times a day Contact prescribing physician if questions or concerns Unchanged dextromethorphan-gua ifenesin (Mucinex DM 30 mg-600 mg Tab-ER) See instructions 1-2 orally twice a day as needed for chest congestion Contact prescribing physician if questions or concerns Unchanged fluticasone/ umeclidinium/ vilanterol (Trelegy Ellipta 100 mcg-62.5 mcg-25 mcg inhalation powder) 1 Puffs Inhalation Every day Contact prescribing physician if questions or concerns Unchanged furosemide (furosemide 40 mg Tab) 1 Tablets By Mouth Every day Contact prescribing physician if questions or concerns Unchanged glipiZIDE (glipiZIDE 10 mg Tab) 1 Tablets By Mouth 2 times a day Contact prescribing physician if questions or concerns Unchanged lisinopril (lisinopril 5 mg Tab) 1 Tablets By Mouth Every day Contact prescribing physician if questions or concerns Unchanged metoprolol (metoprolol 25 mg ER Tab) 1 Tablets By Mouth Every day Contact prescribing physician if questions or concerns Unchanged omeprazole (omeprazole 20 mg Cap-DR) 1 Capsules By Mouth Every day Contact prescribing physician if questions or concerns Unchanged pravastatin (pravastatin 40 mg Tab) 1 Tablets By Mouth Every day Contact prescribing physician if questions or concerns Unchanged semaglutide (Ozempic 2 mg/ 3 mL (0.25 mg or 0.5 mg dose) subcutaneous solution) 0.5 Milligram Subcutaneous Every week Contact prescribing physician if questions or concerns Unchanged venlafaxine (venlafaxine 150 mg Cap-ER) 1 Capsules By Mouth 2 times a day Contact prescribing physician if questions or concerns Pharmacy Information [facility]/pharmacy #[id number]: [address], [place] [id number] [phone] Allergies metFORMIN (Diarrhea) Problems Ongoing - Any problem that you are currently receiving treatment for. Anxiety Emphysema/COPD History of opioid abuse Obesity (BMI 30-39.9) Type 2 diabetes mellitus with complication Patient Survey You may receive a survey via text or e-mail asking about your office visit. Please share your experience with us by completing your survey. We appreciate your feedback and thank you for choosing us for your care. Education Materials Preventing Diabetes Me (more content not included)... Normal [facility] CHEMISTRYOrdered By: SYSTEM SYSTEM on 01-24-2024 Albumin DL <= 20 mg/L (U) [Mass/Vol] 0.7 mg/dL Normal 0.0 - 1.9 mg/dL Remisol Chem Protein/Creatinine (U) [Ratio] 9.40 mg/gm Cr Normal 0.00 - 200.00 mg/gm Cr Remisol Chem U Creatinine 103.6 mg/dL Invalid Interpretation Code Remisol Chem Ur Total Protein 9.7 mg/dL Invalid Interpretation Code Remisol Chem Albumin [Mass/Vol] 4.6 g/dL Normal 3.3 - 5.0 gm/dL R emisol Chem Albumin/Globulin [Mass ratio] 1.7 {ratio} Normal 1.1 - 2.2 Remisol Chem ALP [Catalytic activity/Vol] 78 [iU]/d Normal 21 - 98 Int._Unit/L Remisol Chem ALT No additional P-5'-P [Catalytic activity/Vol] 18 [iU]/d Normal 6 - 46 Int._Unit/L Remisol Chem Anion gap [Moles/Vol] 13 mmol/L Normal 6 - 16 mEq/L Remisol Chem AST [Catalytic activity/Vol] 15 [iU]/d Normal 5 - 43 Int._Unit/L Remisol Chem Bilirubin [Mass/Vol] 0.4 mg/dL Normal 0.0 - 1.1 mg/dL Remisol Chem Calcium [Mass/Vol] 9.8 mg/dL Normal 8.9 - 11.1 mg/dL Remisol Chem Chloride [Moles/Vol] 101 mmol/L Normal 101 - 111 mmol/ L Remisol Chem Cholesterol [Mass/Vol] 261 mg/dL High 120 - 200 mg/dL Remisol Chem Cholesterol in HDL [Mass/Vol] 86 mg/dL Invalid Interpretation Code Remisol Chem Comment on above: Result Comment: '>= 60 LOW RISK' '<= 40 HIGH RISK' Cholesterol in LDL [Mass/Vol] 142 mg/dL High <=129mg/dL Remisol Chem Cholesterol in VLDL [Mass/Vol] 38 mg/dL Normal 7 - 40 mg/dL Remisol Chem CO2 [Moles/Vol] 29 mmol/L Normal 21 - 31 mmol/L Remis ol Chem Creatinine [Mass/Vol] 1.1 mg/dL Normal 0.5 - 1.3 mg/dL Remisol Chem eGFR 75 mL/min/1.73 m2 Normal >=59mL/min /1.73 m2 Remisol Chem Globulin (S) [Mass/Vol] 2.7 g/dL Normal 1.4 - 4.0 gm/dL Remisol Chem Glucose [Mass/Vol] 78 mg/dL Normal 55 - 199 mg/dL Re misol Chem Potassium [Moles/Vol] 4.0 mmol/L Normal 3.5 - 5.3 mmol/L Remisol Chem Prostate specific Ag [Mass/Vol] 7.8 ng/mL High 0.1 - 3.5 ng/mL Remisol Chem Comment on above: Interpretive Data: T he concentration of PSA determined by different manufacturers can vary due to differences in assay methods and reagent specificity. Values obtained from different assay methods cannot be used interchangeably. The methodology used for this result was chemiluminescence using [employer]'s [employer] Hy[employer] PSA reagent. Protein [Mass/Vol] 7.3 g/dL Normal 6.0 - 7.8 gm/dL R emisol Chem Sodium [Moles/Vol] 139 mmol/L Normal 135 - 145 mmol/L Remisol Chem Triglyceride [Mass/Vol] 189 mg/dL High <=149mg/dL Remisol Chem Urea nitrogen [Mass/Vol] 18 mg/dL Normal 5 - 21 mg/dL Remisol Chem Urea nitrogen/Creatinine [Mass ratio] 16 mg/mg Normal 10 - 20 Remisol Chem Family Medicine Office/Clini c Noteon 01-24-2024 Family Medicine Office/Clinic Note Family Medicine Office/Clinic Note Chief Complaint Annual Wellness Visit Review of Systems PHQ Score Initial Depression Screen Score: 0 SCORE Physical Exam Vitals & Measurements HR: 100(Peripheral) BP: 138/90 SpO2: 93% HT: 177 cm HT: 70 in WT: 111.6 kg WT: 245.52 lb BMI: 35.62 Assessment/Plan 1. Medicare annual wellness visit, initial (Z00.00: Encounter for general adult medical examination without abnormal findings) 2. Emphysema/COPD (J43.9: Emphysema, unspecified) 3. Type 2 diabetes mellitus with complication (E11.8: Type 2 diabetes mellitus with unspecified complications) 4. On statin therapy (Z79.899: Other open source developer (current) drug therapy) 5. History of opioid abuse (F11.11: Opioid abuse, in remission) 6. Obesity due to excess calories (E66.09: Other obesity due to excess calories) 7. Screening for colon cancer (Z12.11: Encounter for screening for malignant neoplasm of colon) 8. Encounter for hepatitis C screening test for low risk patient (Z11.59: Encounter for screening for other viral diseases) Follow-up No qualifying data available Patient Education Cancer Screening for Men BMI for Adults Diabetes Mellitus and Standards of Medical Care BMI for Adults Blood Glucose Monitoring, Adult Problem List/Past Medical History Ongoing Anxiety Emphysema/COPD History of opioid abuse Obesity (BMI 30-39.9) Type 2 diabetes mellitus with complication Historical No qualifying data Procedure/Surgical History Cardiac catheter. Medications aripiprazole 10 mg Tab, 10 mg= 1 tab(s), Oral, Daily aspirin 81 mg Oral EC Tab, 81 mg= 1 tab(s), Oral, Daily Combivent Respimat 20 mcg-100 mcg, 1 puff(s), Inhalation, QID cyclobenzaprine 5 mg Tab, 5 mg= 1 tab(s), Oral, BID furosemide 40 mg Tab, 40 mg= 1 tab(s), Oral, Daily glipiZIDE 10 mg Tab, 10 mg= 1 tab(s), Oral, BID hydrOXYzine hydrochloride 25 mg Tab, 25 mg= 1 tab(s), Oral, TID, PRN, 2 refills lisinopril 5 mg Tab, 5 mg= 1 tab(s), Oral, Daily metoprolol 25 mg ER Tab, 25 mg= 1 tab(s), Oral, Daily Mucinex DM 30 mg-600 mg Tab-ER, See Instructions omeprazole 20 mg Cap-DR, 20 mg= 1 cap(s), Oral, Daily Ozempic 2 mg/3 mL (0.25 mg or 0.5 mg dose) subcutaneous solution, 0.5 mg, SubCutaneous, qWeek pravastatin 40 mg Tab, 40 mg= 1 tab(s), Oral, Daily Prolastin-C, See Instructions theophylline 450 mg ER Tab, 450 mg= 1 tab(s), Oral, q12hr Trelegy Ellipta 100 mcg-62.5 mcg-25 mcg inhalation powder, 1 puff(s), Inhalation, Daily venlafaxine 150 mg Cap-ER, 150 mg= 1 cap(s), Oral, BID Allergies metFORMIN (Diarrhea) Social History Alcohol Current, Beer, Daily, Alcohol use interferes with work or home: No. Drinks more than intended: No. Others hurt by drinking: No. Ready to change: No. Household alcohol concerns: No., 01/24/2024 Substance Abuse Past, Marijuana, 01/24/2024 Tobacco Former smoker, quit more than 30 days ago Tobacco Use:. Never Smokeless Tobacco Use:. Cigarettes, 01/24/2024 Family History Cancer: Father. Diabetes mellitus type 2: Mother. Heart disease: Mother. Immunizations Vaccine Date Status influenza virus vaccine, inactivated 05/16/2020 Recorded pneumococcal 13-valent vaccine 05/10/2018 Recorded influenza virus vaccine, inactivated 05/10/2018 Recorded Normal [facility] Comment on above: Result Comment: Elec tronically Signed By: SARAH KEITH CNP\.br\Date and Time Signed: 01/24/24 21:51 EDT\.br\Electronically Co-Signed By: Jennifer Frederick.mitchel\Date and Time Co-Signed: 01/24/24 13:18 EDT Family Medicine Office/Clinic Note Family Medicine Office/Clinic Note Chief Complaint Annual Wellness Visit Review of Systems PHQ Score Initial Depression Screen Score: 0 SCORE Physical Exam Vitals & Measurements HR: 100(Peripheral) BP: 138/90 SpO2: 93% HT: 177 cm HT: 70 in WT: 111.6 kg WT: 245.52 lb BMI: 35.62 Procedure I was in the office and available for consultation and to provide direct supervision at the time of this visit. I have provided supervision of the care team and have reviewed this chart and office note and agree with the plan of care. Assessment/Plan 1. Medicare annual wellness visit, initial (Z00.00: Encounter for general adult medical examination without abnormal findings) The patient was given a customized and personalized print out of all the current AHRQ USPSTF?s recommendations for preventative services and all current CDC recommended immunizations, relevant risk recommendations and the following patient brochures were given. Reviewed Medicare Prevention Services checklist. CDC-Falls Prevention and home safety screening reviewed. Patient admits to (1) non injury fall in last 12 months, voices no worry about falling. Exhibits no problems with sitting, standing or ambulation. Patient aware with keeping walk way area free of clutter to prevent tripping and/or falling. [place] Advance Directives packet provided to patient. Instructions provided to patient on how to fill them out and encouraged patient to bring in for scanning into chart once they are complete. Patient denies any problems with ADL?s and Instrumental ADL?s except bathing and grocery shopping. Patient reports that spouse helps with those needs. Cognitive screening completed with memory and clock face drawing. No deficits noted. Immunization record reviewed, discussed Shingrix vaccine with educational handout and availability. COVID vaccinations were refused. Patient reports getting flu vaccine every year and having pneumococcal immunizations. Will Call Dr. Lizz Cowart's office for those records. Allergies and medications reviewed and up to date. No concerns with taking medication as prescribed. Reviewed OTC medications, medication list up to date. Blood tests were were ordered by pcp today and drawn. Patient will be informed of results when they are available. No concerns with bowel/ bladder. Patient has never had a colonoscopy and declines. Patient agrees to Cologuard test. Patient denies pain today. Depression and Anxiety screening, 8 minutes spent with screening and documentation. PHQ2 screening score 0. PHQ9 score 2. GAD7 score 4. Patient drinks alcohol 4 or more times weekly 3-4 drinks, denies concerns. 8 minutes spent with screening and documentation. Audit score 8. Follow up scheduled with PCP, 04/24/2024 AWV has been scheduled, 01/29/2025 2. Emphysema/COPD (J43.9: Emphysema, unspecified) Patient using Trelegy inhaler daily as directed with effectiveness. PRN rescue inhaler is used as needed. Encouraged to remain active. Patient is on 4 liters of oxygen, nasal cannula. Will continue to monitor for changes and/or concerns with office visits. Pulse ox today was 93%. 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 Patient admits to be a little more SOB today. Follows up as directed and prn with pcp. 3. Type 2 diabetes mellitus with complication (E11.8: Type 2 diabetes mellitus with unspecified complications) Patient is compliant on current DM medications: glipizide and Ozempic. Currently an ACEi, does not monitor BS at home: DM stoplight handout reviewed with s/s to monitor for and report to PCP. Discussed ADA dietary recommendations with low carbs and reduce sugar intake. Patient denied a referral to diabetic education. Patient encouraged to increase daily physical activity, adequate water intake and maintain a healthy weight. Pt follows up with PCP with yearly DM foot checks, last completed today. Reminded patient to perform at home foot checks to prevent future complications, wash with soap and water, apply lotion to bilateral feet and in-between toes to prevent dryness and/or cracking. Wear proper fitting shoes and loose fitting socks and/or hose. Follows up with yearly DM eye exams, called Dr. Bautista for last visit notes. Patient will follow up with pcp as directed. 4. On statin therapy (Z79.899: Other senior care (current) drug therapy) Patient currently taking statin medications daily with blood work ordered with medication management to reduce risks. Patient to follow pcp as directed. 5. 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 Patient denies opioid use. 6. Obesity due to excess calories (E66.09: Other obesity due to excess calories) The standard range for ages 18 and older is >=18.5 and < 25 kg/m2. Your BMI 35.62 today was above this range, this falls in the obesity category and there are medical benefits to weight loss. BMI monitoring is helpful with identifying a weight problem that may be r (more content not included)... Normal [facility] Comment on above: Result Comment: Elec tronically Signed By: SARAH KEITH CNP\.br\Date and Time Signed: 01/24/24 21:50 EDT\.br\Electronically Co-Signed By: Jennifer Frederick\.br\Date and Time Co-Signed: 01/24/24 13:30 EDT Family Medicine Office/Clinic Note Family Medicine Office/Clinic Note HPI Staff Ricardo is a 63 year old male presenting for 3 week follow up TAMMIE 11/05/23 started hydroxyzine 25mg- Still taking with no problems, taking qd Follow up for Mental Status: Medication adherence- Yes, takes medication as prescribed Medication refill needed: no Suicidal thoughts-Not at this time Most recent CANDACE: 4 Most recent PHQ: 2 History of Present Illness Patient presents today in f/u for anxiety & diabetes. He reports the hydroxyzine is effective and he takes it in the AM with his other medications. His CANDACE-7 score is 4 today in the office. He reports his blood sugars have been in the 120's. He states it has been taking his medication as ordered and it has been a long time since he has had a HGB A1C test. He denies increased thirst or urination. He denies numbness and tingling of his hands and feet. Review of Systems PHQ Score Initial Depression Screen Score: 0 SCORE Constitutional: no fever, no chills, no sweats, no weakness Skin: no Jaundice, no rash, no lesions, nopetechiae Respiratory: no shortness of breath, no cough, no orthopnea, no wheezing Cardiovascular: no chest pain, no palpitations, no edema Gastrointestinal: no nausea, no vomiting, no diarrhea, no GI bleeding Musculoskeletal: no back pain, no trauma Neurologic: no headache, no dizziness, no numbness, no weakness Psychiatric: no sleeping problems, no irritability, no mood swings/depression. Additional ROS info: Except as noted in the above Review of Systems and in the History of Present Illness all other systems have been reviewed and are negative or noncontributory. Physical Exam Vitals & Measurements T: 37.0 ?C(Temporal Artery) HR: 84(Peripheral) RR: 18 BP: 138/90 SpO2: 90% HT: 70 in HT: 177.0 cm WT: 111.6 kg WT: 245.52 lb BMI: 35.62 General: alert, no acute distress Skin: warm, dry Head: no trauma, normocephalic Neck: Trachea midline, no adenopathy, no tenderness Eye: normal conjunctiva, sclera clear Cardiovascular: regular rate and rhythm, normal peripheral perfusion Respiratory: Lungs CTA, respirations non labored Extremities: no deformity, no trauma Foot: Normal pulses; normal sensation, no lesions Neurological: oriented x 4, LOC appropriate for age speech normal Psychiatric: cooperative, affect appropriate for age, normal judgement, normal psychiatric thoughts. Diabetic Foot Exam Decreased Monofilament Sensation Foot: Left - Normal, Right - Normal Bunions/Foot Deformity: Left - Normal, Right - Normal Abnormal Pulse Foot: Left - Normal, Right - Normal Skin Lesions Foot: Left - Normal, Right - Normal Vibratory Sensation Foot: Left - Normal, Right - Normal Foot Exam Result: Normal foot exam Assessment/Plan 1. Anxiety (F41.9: Anxiety disorder, unspecified) Completed and reviewed the CANDACE-7 score of 4 today in the office Refill hydroxyzine 25 mg one tablet po TID prn f/u in 3 months Ordered: hydrOXYzine, 25 mg = 1 tab(s), Oral, TID, PRN for anxiety, # 90 tab(s), Refills(s) 2, Pharmacy: [facility]/pharmacy #[id number], 177, cm, 01/24/24 10:21:00 EDT, Height/Length Dosing, 115.7, kg, 12/28/23 13:07:00 EDT, Weight Dosing 2. Type 2 diabetes mellitus with complication (E11.8: Type 2 diabetes mellitus with unspecified complications) Chronic Stable semaglutide 0.5 mg subcutaneous weekly glipizide 10 mg one tablet BID Encourage low carb diet and exercise as able Awaiting laboratory results f/u in 3 months Ordered: Comprehensive Metabolic Panel Lipid Panel Microalbumin Level Urine U Protein/Creat Ratio 3. Hyperlipidemia (E78.5: Hyperlipidemia, unspecified) Chronic Stable Encourage lowfat diet & exercise f/u in 3 months Ordered: Lipid Panel 4. Screening for prostate cancer (Z12.5: Encounter for screening for malignant neoplasm of prostate) Ordered: PSA Screen, Total Orders: theophylline, 450 mg = 1 tab(s), Oral, q12hr, # 180 tab(s), Refills(s) 0, Pharmacy: [facility]/pharmacy #[id number], 177, cm, 01/24/24 10:21:00 EDT, Height/Length Dosing, 115.7, kg, 12/28/23 13:07:00 EDT, Weight Dosing Follow-up With When Contact Information SARAH KEITH CNP, RATNA Within [address] [place] [id number] Business (1) Additional Instructions: Diabetes & COPD Patient Education Preventing Diabetes Mellitus Complications Problem List/Past Medical History Ongoing Anxiety Emphysema/COPD Type 2 diabetes mellitus with complication Historical No qualifying data Procedure/Surgical History Cardiac catheter. Medications aripiprazole 10 mg Tab, 10 mg= 1 tab(s), Oral, Daily aspirin 81 mg Oral EC Tab, 81 mg= 1 tab(s), Oral, Daily Combivent Respimat 20 mcg-100 mcg, 1 puff(s), Inhalation, QID cyclobenzaprine 5 mg Tab, 5 mg= 1 tab(s), Oral, BID furosemide 40 mg Tab, 40 mg= 1 tab(s), Oral, Daily glipiZIDE 10 mg Tab, 10 mg= 1 tab(s), Oral, BID hydrOXYzine hydrochloride 25 mg Tab, 25 mg= 1 tab(s), Oral, TID, PRN, 2 refi (more content not included)... Normal [facility] Comment on above: Result Comment: Elec tronically Signed By: SARAH KEITH CNP\.br\Date and Time Signed: 01/24/24 10:54 EDT Pre-Visit Planningon 024 Pre-Visit Planning Pre-Visit Planning - From: Wanda BRYANT, Yesenia To: SARAH KEITH CNP; Sent: 01/17/2024 10:10:40 EDT Subject: Pre-Visit Planning Due Date/Time: 01/17/2024 10:10:00 EDT Caller Name: RICARDO HYLTON; Caller Number: Jose , M Stephen Mcnally During a pre-visit planning chart review, I noted the following documentation in the medical record: 12/28/2023 office note- He reports he was released from Dr. Cowart's care d/t misuse of schedule II medications. Based on your medical judgment, can you please clarify which, if any, of the following conditions are present? I can update the Chronic Problem List with your response if you would like. -History of opiod abuse -Other (please specify): In responding to this request, please exercise your independent professional judgment. The fact that a question is asked does not imply that any particular answer is desired or expected. If you have any questions, please feel free to contact me at extension [phone]. Thank you! ROWDY Kidd, RN, CCM, CCDS, CCDS-O - From: SARAH KEITH CNP To: Yesenia Muñoz RN; Sent: 01/24/2024 11:51:22 EDT Subject: RE: Pre-Visit Planning Caller Name: RICARDO HYLTON; Caller Number: Jose , M Added to diagnosis Normal [address] [facility] Pre-Visit Planning Pre-Visit Planning - From: Yesenia Muñoz RN To: SARAH KEITH CNP; Sent: 01/17/2024 10:07:43 EDT Subject: Pre-Visit Planning Due Date/Time: 01/17/2024 10:07:00 EDT Caller Name: RICARDO HYLTON; Caller Number: Jose , M Stephen Mcnally, *Based on your response below, can you please update the chronic problem list and address during this visit if appropriate?* During a pre-visit planning chart review, I noted the following documentation in the medical record: Problem list: Emphysema/COPD 12/28/2023 office note-2. Emphysema/COPD (J43.9: Emphysema, unspecified) Pulse oX 96 % on 3 LPM of Oxygen per nasal cannula Continue with pulmonolgy as scheduled Continue Combivent & Trelegy Ellipta as ordered F/u in 6 months He reports he was released from Dr. Cowart's care d/t misuse of schedule II medications. Based on your medical judgment, can you further clarify the following? -Chronic hypoxic respiratory failure -Other (please specify): I can update the problem list with your specified response if you would like. In responding to this request, please exercise your independent professional judgement. The fact that a question is asked does not imply that any particular answer is desired or expected. If you have any questions, please feel free to contact me at extension [phone]. Thank you! ROWDY Kidd, RN, CCM, CCDS, CCDS-O - From: SARAH KEITH CNP To: Yesenia Muñoz RN; Sent: 01/24/2024 11:51:10 EDT Subject: RE: Pre-Visit Planning Caller Name: RICARDO HYLTON; Caller Number: Jose , M Added to diagnosis Normal [address] [facility] Pre-Visit Planning Pre-Visit Planning - From: Yesenia Muñoz RN To: SARAH KEITH CNP; Sent: 01/17/2024 10:02:44 EDT Subject: Pre-Visit Planning Due Date/Time: 01/17/2024 10:02:00 EDT Caller Name: RICARDO HYLTON; Caller Number: Jose , M Stephen Mcnally, *Based on your response below, can you please update the chronic problem list and address during this visit if appropriate?* During a pre-visit planning chart review, I noted the following documentation in the medical record indicates that this patient had a BMI of 36 on 12/29/2022. The National [employer] defines obesity as morbid if the patient demonstrates a BMI of over 40, or a BMI of 35 or more and at least one weight-related comorbid condition, such as diabetes or hypertension. Examples of weight-related comorbidities include diabetes, heart disease, stroke, hypertension, and arthritis. Current problem list: Anxiety, Diabetes, Emphysema Based on your medical judgment, can you further clarify the following diagnosis that correlates with the BMI listed above if the current BMI is still 35 or over? - Morbid obesity (please also include additional diagnosis to reflect current BMI) - Class 2 severe obesity with serious comorbidity in adult (please also include additional diagnosis to reflect current BMI) - Class 3 severe obesity with serious comorbidity in adult (please also include additional diagnosis to reflect current BMI) - Other (please specify): I can update the problem list with your specified response if you would like. In responding to this request, please exercise your independent professional judgment. The fact that a question is asked does not imply that any particular answer is desired or expected. If you have any questions, please feel free to contact me at extension [phone]. Thank you! Yesenia Muñoz, ARIELN, RN, CCM, CCDS, CCDS-O - From: SARAH KEITH CNP To: Wanda BRYANT, Yesenia; Sent: 01/24/2024 11:50:53 EDT Subject: RE: Pre-Visit Planning Caller Name: RICARDO HYLTON; Caller Number: Jose , Added to diagnosis Normal [address] [facility] U Protein/Creat Ratioon 07-0 Protein/Creatinine (U) [Ratio] 9.40 mg/gm Cr Normal .00-200.00 [facility] Comment on above: Performed By: #### 1 [id number] #### [facility] [address] [place] [address] U Creatinine 103.6 mg/dL Invalid Interpretation Code [facility] Comment on above: Performed By: #### 1 [id number] #### [facility] [address] [place] [address] Ur Total Protein 9.7 mg/dL Invalid Interpretation Code [facility] Comment on above: Performed By: #### 1 [id number] #### [facility] [address] [place] [address] Family Medicine Office/Clini c Noteon 12-29-2023 Family Medicine Office/Clinic Note HPI Staff Ricardo is a 63 year old male presenting to [facility] Establish Care: History: COPD, Emphysema DM Any previous diagnosis: History of seeing any specialist: Dr Gonzalez When was your last doctors visit: 3-4 weeks ago Last provider: Dr Cowart Any recent labs: less than a year ago at [facility] Maintenance UTD: Colonoscopy: never PSA: doesn't [...] of Dr. Lizz Cowart presents today to [facility]. He has a previous hx of COPD/Emphysema and diabetes. He reports he was released from Dr. Cowart's care d/t misuse of schedule II medications. He reports he does have a computer programmer analyst that he sees for his COPD/emphysema. He [...] anxiety, # 90 tab(s), Refills(s) 0, Pharmacy: [facility]/pharmacy #[id number], 177.3, cm, 12/28/23 13:07:00 EDT, Height/Length [...] subq week (more content not included)... Normal [facility] Comment on above: Result Comment: Elec tronically Signed By: SARAH KEITH CNP\.br\Date and Time Signed: 12/29/23 08:59 EDT Patient Educationon 12-29-19 Patient Education Mental and Behavioral Health Managing Anxiety, Adult After being diagnosed [...] Lifestyle ? (more content not included)... Normal [facility] Ambulatory Visit Summaryon 0 12-28-2023 Ambulatory Visit Summary RICARDO HYLTON :1960 Visit Date:12/28/2023 Ambulatory Visit Instructions Your Diagnosis Anxiety Emphysema/COPD Encounter to establish care Type II diabetes mellitus with complication BMI 36.0-36.9,adult Class 1 obesity due to excess calories in adult Former smoker Your Care Team Attending Physician - SARAH KEITH CNP Primary Care Physician - SARAH KEITH CNP This Is Your Medications List albuterol-ipratropiu m (Combivent Respimat 20 mcg-100 mcg) alpha 1-proteinase inhibitor (Prolastin-C) aripiprazole (aripiprazole 10 mg Tab) aspirin (aspirin 81 mg Oral EC Tab) cyclobenzaprine (cyclobenzaprine 5 mg Tab) dextromethorphan-gua ifenesin (Mucinex DM 30 mg-600 mg Tab-ER) fluticasone/umeclidi nium/vilanterol (Trelegy Ellipta 100 mcg-62.5 mcg-25 mcg inhalation [...] Follow-Up Appointments Tuesday 1:40 PM EDT With: SARAH KEITH CNP Where: [facility] Family Medicine [facility] for Release of Medical Records 12-28-2023 Auth for Release of Medical Records [id number] 1.00TIFF [facility] [place] 04-25-2023 NEVA Telephone (FLORINDA) RICARDO HYLTON ([id number]) 1960 M Date Time Provider Department 04/25/23 CAPO MERAZ During your visit today, we recorded the following information about you: Capo Meraz, ANNETTE 04/25/2023 11:50 AM Signed Attempted to reach [...] any questions. Capo Meraz RN, BSN Pre-Lung Capital Equipment Specialist Allergies As of Date: 04/25/2023 Noted Allergy Reaction METFORMIN 03/25/2021 5 - Intolerance Comments: diarrhea Date Reviewed: 03/25/2021 Reviewed by: Lia Sanders RN - Fully Assessed Reason for Visit: Closing Referral [Other] Prescriptions as of 04/25/2023 - qbmzd-4-rfiwqtsnag inhibitor (Human) 1,000 mg in water for [...] 10 mg by mouth twice daily. 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 Capo Meraz RN, BSN Pre-Lung Capital Equipment Specialist Allergies As of Date: 03/22/2023 Noted Allergy Reaction METFORMIN 03/25/2021 5 - Intolerance Comments: diarrhea Date Reviewed: 03/25/2021 Reviewed by: Lia Sanders, ANNETTE - Fully Assessed Reason for Visit: Follow up on Lung Tx Referral [Other] Prescriptions as of 04/22/2023 - iksfs-3-jsmutxqqnd inhibitor (Human) 1,000 mg in water for [...] 81 mg by mouth once daily. - [employer] Corporation[employer] 2 SENSOR kit as directed. - TRELEGY ELLIPTA 100-62.5-25 mcg INHALE 1 PUFF BY MOUTH DAILY - glipiZIDE (GLUCOTROL) 10 mg tablet Take 10 mg by mouth twice daily. - HYDROcodone-acetamin ophen (NORCO) 5-325 mg per tablet TAKE 1 [...] Chronic respiratory failure with hypoxia (HCC) *02/16/2021 Wmczq-8-kctswcikyyg deficiency (HCC) [E88.01] 02/16/2021 Chronic obstructive pulmonary disease (HCC) [J4*01/17/2019 Essential hypertension [I10] 02/14/2019 RANCHO (obstructive sleep apnea) [G47.33] 03/25/2021 Depression [F32.A] 03/25/2021 GERD (gastroesophageal reflux disease) [K21.9] 03/25/2021 Diabetes (HCC) [E11.9] 03/25/2021 Bipolar 1 disorder (HCC) [F31.9] 03/25/2021 Encounter Status:Closed by CAPO MERAZ on 03/22/23 Normal [facility] [place] 03-10-2023 [facility] (PULT[facility]) RICARDO HYLTON ([id number]) 1960 M Date Time Provider Department 03/10/23 CAPO MERAZ PULMAHENDRAN During your visit today, we recorded the [...] being full. Capo Meraz RN, BSN Pre-Lung Capital Equipment Specialist Allergies As of Date: 03/10/2023 Noted Allergy Reaction METFORMIN 03/25/2021 5 - Intolerance Comments: diarrhea Date Reviewed: 03/25/2021 Reviewed by: Lia Sanders, ANNETTE - Fully Assessed Reason for Visit: Follow up on Lung Transplant Referral [Other] Prescriptions as of 03/10/2023 - svsdp-5-shfqjrxthr inhibitor (Human) 1,000 mg in water for [...] 10 mg by mouth twice daily. 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] 02/16/2021 Chronic obstructive pulmonary disease (HCC) [J4*01/17/2019 Essential hypertension [I10] 02/14/2019 RANCHO (obstructive sleep apnea) [G47.33] 03/25/2021 Depression [F32.A] 03/25/2021 GERD (gastroesophageal reflux disease) [K21.9] 03/25/2021 Diabetes (HCC) [E11.9] 03/25/2021 Bipolar 1 disorder (HCC) [F31.9] 03/25/2021 Encounter Status:Closed by CAPO MERAZ on 03/10/23 Normal [facility] CARDIAC JUSTINE 3-6on 3 CK [Catalytic activity/Vol] 49 U/L Normal 39-308 [facility] Comment on above: Performed By: #### C MP #### [facility] [address] [place] [address] Dr. Jessie Lomax CK.MB [Mass/Vol] 1.93 ng/mL Normal <=3.60 [facility] Comment on above: Performed By: #### C MP #### [facility] [address] [place] [address] Dr. Jessie Lomax HSTROP 7.8 pg/mL Normal 4.0-76.1 [facility] Comment on above: Result Comment: CUT- OFF POINTS HAVE BEEN ESTABLISHED BASED ON THE FOURTH UNIVERSAL DEFINITIONS OF MYOCARDIAL INFARCTION. THE UPPER REFERENCE LIMIT (URL) OF TROPONIN, DEFINED THE 99TH PERCENTILE OF cTnI DISTRIBUTION IN A REFERENCE POPULATION, HAS BEEN CONFIRMED THE DECISION THRESHOLD FOR [place] DIAGNOSIS. Performed By: #### C MP #### [facility] [address] [place] [address] Dr. Jessie Lomax LACTATE/LACTIC ACIDon 2022 Lactate [Moles/Vol] 1.5 mmol/L Normal 0.4-2.0 [facility] Comment on above: Performed By: #### B LDCX1 #### [facility] [address] [place] [address] Dr. Jessie Lomax Lactate [Moles/Vol] 2.5 mmol/L Critically high 0.4-2.0 [facility] Comment on above: Performed By: #### B LDCX1 #### [facility] [address] [place] [address] Dr. Jessie Lomax CARDIAC JUSTINE ADMITon 023 CK [Catalytic activity/Vol] 36 U/L Critically low 39-308 [facility] Comment on above: Performed By: #### A CETON #### [facility] [address] [place] [address] Dr. Jessie Lomax CK.MB [Mass/Vol] 1.50 ng/mL Normal <=3.60 [facility] Comment on above: Performed By: #### A CETON #### [facility] [address] [place] [address] Dr. Jessie Lomax HSTROP 7.4 pg/mL Normal 4.0-76.1 [facility] Comment on above: Result Comment: CUT- OFF POINTS HAVE BEEN ESTABLISHED BASED ON THE FOURTH UNIVERSAL DEFINITIONS OF MYOCARDIAL INFARCTION. THE UPPER REFERENCE LIMIT (URL) OF TROPONIN, DEFINED THE 99TH PERCENTILE OF cTnI DISTRIBUTION IN A REFERENCE POPULATION, HAS BEEN CONFIRMED THE DECISION THRESHOLD FOR [place] DIAGNOSIS. Performed By: #### A CETON #### [facility] [address] [place] [address] Dr. Jessie Lomax HERLINDA 44 ng/mL Normal 16-96 [facility] Comment on above: Performed By: #### A CETON #### [facility] [address] [place] [address] Dr. Jessie Lomax CBC AUTO DIFFon 10-03-2022 BASO # 0.1 103/ul Normal 0.0-0.1 [facility] Comment on above: Performed By: #### C BC #### [facility] [address] [place] [address] Dr. Jessie Lomax Basophils/100 WBC (Bld) 0.5 % Normal 0.2-2.0 [facility] Comment on above: Performed By: #### C BC #### [facility] [address] [place] [address] Dr. Jessie Lomax EO # 0.0 103/ul Normal 0.0-0.7 [facility] Comment on above: Performed By: #### C BC #### [facility] [address] [place] [address] Dr. Jessie Lomxa Eosinophils/100 WBC (Bld) 0.2 % Critically low 0.9-7.0 [facility] Comment on above: Performed By: #### C BC #### [facility] [address] [place] [address] Dr. Jessie Lomax Erythrocyte distribution width (RBC) [Ratio] 14.6 % Normal 11.0-15.0 [facility] Comment on above: Performed By: #### C BC #### [facility] [address] [place] [address] Dr. Jessie Lomax Hematocrit (Bld) [Volume fraction] 49.6 % Normal 42.0-54.0 [facility] Comment on above: Performed By: #### C BC #### [facility] [address] [place] [address] Dr. Jessie Lomax Hemoglobin (Bld) [Mass/Vol] 16.6 g/dL Normal 14.0-18.0 [facility] Comment on above: Performed By: #### C BC #### [facility] [address] [address] [address] Jessie Lomax IG # 0.10 10e3/ul Critically high 0.00-0.03 [facility] Comment on above: Performed By: #### C BC #### [facility] [address] [place] [address] Dr. Jessie Lomax IG % 0.8 % Critically high 0.0-0.5 [facility] [place] Comment on above: Performed By: #### C BC #### [facility] [address] [place] [address] Dr. Jessie Lomax LYMPH # 1.0 103/ul Critically low 1.2-3.8 [facility] [place] Comment on above: Performed By: #### C BC #### [facility] [address] [place] [address] Dr. Jessie Lomax Lymphocytes/100 WBC (Bld) 8.2 % Critically low 20.5-60.0 [facility] Comment on above: Performed By: #### C BC #### [facility] [address] [place] [address] Dr. Jessie Lomax MANUAL DIFF REQ NO Normal [facility] Comment on above: Performed By: #### C BC #### [facility] [address] [place] [address] Dr. Jessie Lomax MCH (RBC) [Entitic mass] 31.0 pg Normal 25.9-34.0 [facility] Comment on above: Performed By: #### C BC #### [facility] [address] [place] [address] Dr. Jessie Lomax MCHC (RBC) [Mass/Vol] 33.5 g/dL Normal 29.9-35.2 [facility] Comment on above: Performed By: #### C BC #### [facility] [address] [place] [address] Dr. Jessie Lomax MCV (RBC) [Entitic vol] 92.5 fL Normal 80.0-94.0 [facility] Comment on above: Performed By: #### C BC #### [facility] [address] [place] [address] Dr. Jessie Lomax MONO # 0.6 103/ul Normal 0.3-0.8 [facility] Comment on above: Performed By: #### C BC #### [facility] [address] [place] [address] Dr. Jessie Lomax Monocytes/100 WBC (Bld) 4.9 % Normal 1.7-12.0 [facility] Comment on above: Performed By: #### C BC #### [facility] [address] [place] [address] Dr. Jessie Lomax NEUT # 10.5 103/ul Critically high 1.4-6.5 [facility] Comment on above: Performed By: #### C BC #### [facility] [address] [place] [address] Dr. Jessie Lomax Neutrophils/100 WBC (Bld) 85.4 % Critically high 43.0-75.0 [facility] Comment on above: Performed By: #### C BC #### [facility] [address] [place] [address] Dr. Jessie Lomax Platelet mean volume (Bld) [Entitic vol] 9.3 fL Critically low 9.5-13.5 [facility] Comment on above: Performed By: #### C BC #### [facility] [address] [place] [address] Dr. Jessie Lomax PLT 259 103/ul Normal 150-450 [facility] Comment on above: Performed By: #### C BC #### [facility] [address] [place] [address] Dr. Jessie Lomax RBC 5.36 106/ul Normal 4.70-6.10 [facility] Comment on above: Performed By: #### C BC #### [facility] [address] [address] [address] Jessie Lomax WBC 12.3 103/ul Critically high 4.0-11.0 [facility] Comment on above: Performed By: #### C BC #### [facility] [address] [place] [address] Dr. Jessie Lomax LACTATE/LACTIC ACIDon 2022 Lactate [Moles/Vol] 2.9 mmol/L Critically high 0.4-2.0 [facility] Comment on above: Performed By: #### C MP #### [facility] [address] [place] [address] Dr. Jessie Lomax PROF CHEM 8 (BAS METB)on Anion gap [Moles/Vol] 8.7 mmol/L Normal [facility] Comment on above: Performed By: #### A CETON #### [facility] [address] [place] [address] Dr. Jessie Lomax Calcium [Mass/Vol] 8.9 mg/dL Normal 8.5-10.1 [facility] Comment on above: Performed By: #### A CETON #### [facility] [address] [place] [address] Dr. Jessie Lomax Chloride [Moles/Vol] 100 mmol/L Normal 98-107 [facility] Comment on above: Performed By: #### A CETON #### [facility] [address] [place] [address] Dr. Jessie Lomax CO2 [Moles/Vol] 32.6 mmol/L Critically high 21.0-32.0 [facility] Comment on above: Performed By: #### A CETON #### [facility] [address] [place] [address] Dr. Jessie Lomax Creatinine [Mass/Vol] 1.32 mg/dL Critically high 0.70-1.30 [facility] Comment on above: Performed By: #### A CETON #### [facility] [address] [place] [address] Dr. Jessie Lomax EGFR-AF BELGIAN >60 Normal >=60 [facility] Comment on above: Performed By: #### A CETON #### [facility] [address] [place] [address] Dr. Jessie Lomax EGFR-NON AF BELGIAN 55 mL/min/1.73m2 Critically low >=60 [facility] Comment on above: Performed By: #### A CETON #### [facility] [address] [place] [address] Dr. Jessie Lomax Glucose [Mass/Vol] 360 mg/dL Critically high 74-106 [facility] Comment on above: Performed By: #### A CETON #### [facility] [address] [place] [address] Dr. Jessie Lomax Potassium [Moles/Vol] 4.3 mmol/L Normal 3.5-5.1 [facility] Comment on above: Performed By: #### A CETON #### [facility] [address] [place] [address] Dr. Jessie Lomax Sodium [Moles/Vol] 137 mmol/L Normal 136-145 [facility] Comment on above: Performed By: #### A CETON #### [facility] [address] [place] [address] Dr. Jessie Lomax Urea nitrogen [Mass/Vol] 20.0 mg/dL Critically high 7.0-18.0 [facility] Comment on above: Performed By: #### A CETON #### [facility] [address] [place] [address] Dr. Jessie Lomax Urea nitrogen/Creatinine [Mass ratio] 15.2 mg/mg Normal [facility] Comment on above: Performed By: #### A CETON #### [facility] [address] [place] [address] Dr. Jessie Lomax XR CHEST 1 Von 10-03-2022 XR CHEST 1 V EXAMINATION: XR CHEST 1 V HISTORY: Shortness of breath COMPARISON: Portable chest 08/29/2022 TECHNIQUE: Portable chest FINDINGS: The lung parenchyma is free of consolidation or infiltrate. No pneumothorax or pleural effusion. The cardiac, mediastinal and hilar contours are normal. The visualized osseous structures exhibit no gross abnormality. IMPRESSION: No acute cardiopulmonary abnormality. Electronically authenticated by: SOLA SHELL Date: 2022-10-03 20:56 Normal [facility] URINE PROFILEon 3 Bilirubin Ql (U) Negative Normal NEGATIVE [facility] Comment on above: Performed By: #### T TYLER #### [facility] [address] [place] [address] Dr. Jessie Lomax Clarity (U) CLEAR Normal CLEAR [facility] Comment on above: Performed By: #### T TYLER #### [facility] [address] [place] [address] Dr. Jessie Lomax Color (U) LT. YELLOW Normal YELLOW [facility] Comment on above: Performed By: #### T TYLER #### [facility] [address] [place] [address] Dr. Jessie BROOKS A micrscopic examination will be performed if indicated. Normal [facility] Comment on above: Performed By: #### T TYLER #### [facility] [address] [place] [address] Dr. Jessie Lomax Glucose Ql (U) >1000 Abnormal NEGATIVE [facility] Comment on above: Performed By: #### T TYLER #### [facility] [address] [place] [address] Dr. Jessie Lomax Hemoglobin Ql (U) Negative Normal NEGATIVE [facility] Comment on above: Performed By: #### T TYLER #### [facility] [address] [place] [address] Dr. Jessie Lomax Ketones Ql (U) Negative Normal NEGATIVE [facility] Comment on above: Performed By: #### T TYLER #### [facility] [address] [place] [address] Dr. Jessie Lomax LEUKOCYTES Negative Normal NEGATIVE [facility] Comment on above: Performed By: #### T TYLER #### [facility] [address] [place] [address] Dr. Jessie Lomax Nitrite Ql (U) Negative Normal NEGATIVE [facility] Comment on above: Performed By: #### T TYLER #### [facility] [address] [place] [address] Dr. Jessie Lomax pH (U) 6.0 [pH] Normal 5-9 [facility] Comment on above: Performed By: #### T TYLER #### [facility] [address] [place] [address] Dr. Jessie Lomax SPEC GRAVITY <=1.005 Abnormal 1.005-<=1.025 [facility] Comment on above: Performed By: #### T TYLER #### [facility] [address] [place] [address] Dr. Jessie Lomax UA PROTEIN Negative Normal NEGATIVE/ TRACE [facility] Comment on above: Performed By: #### T TYLER #### [facility] [address] [place] [address] Dr. Jessie Lomax UR MICRO IND NOT INDICATED Normal [facility] Comment on above: Performed By: #### T TYLER #### [facility] [address] [place] [address] Dr. Jessie Lomax Urobilinogen Qn (U) 0.2 {Angelique'U}/dL Normal 0.2 - 1. 0 [facility] Comment on above: Performed By: #### T TYLER #### [facility] [address] [place] [address] Dr. Jessie Lomax CBC AUTO DIFFon 08-30-2022 BASO # 0.0 103/ul Normal 0.0-0.1 [facility] Comment on above: Performed By: #### C BC #### [facility] [address] [place] [address] Dr. Jessie Lomax Basophils/100 WBC (Bld) 0.1 % Critically low 0.2-2.0 [facility] Comment on above: Performed By: #### C BC #### [facility] [address] [place] [address] Dr. Jessie Lomax EO # 0.0 103/ul Normal 0.0-0.7 [facility] Comment on above: Performed By: #### C BC #### [facility] [address] [address] [address] Jessie Lomax Eosinophils/100 WBC (Bld) 0.1 % Critically low 0.9-7.0 [facility] Comment on above: Performed By: #### C BC #### [facility] [address] [place] [address] Dr. Jessie Lomax Erythrocyte distribution width (RBC) [Ratio] 13.6 % Normal 11.0-15.0 [facility] Comment on above: Performed By: #### C BC #### [facility] [address] [place] [address] Dr. Jessie Lomax Hematocrit (Bld) [Volume fraction] 46.3 % Normal 42.0-54.0 [facility] Comment on above: Performed By: #### C BC #### [facility] [address] [place] [address] Dr. Jessie Lomax Hemoglobin (Bld) [Mass/Vol] 15.4 g/dL Normal 14.0-18.0 [facility] Comment on above: Performed By: #### C BC #### [facility] [address] [place] [address] Dr. Jessie Lomax IG # 0.08 10e3/ul Critically high 0.00-0.03 [facility] Comment on above: Performed By: #### C BC #### [facility] [address] [place] [address] Dr. Jessie Lomax IG % 0.6 % Critically high 0.0-0.5 [facility] Comment on above: Performed By: #### C BC #### [facility] [address] [place] [address] Dr. Jessie Lomax LYMPH # 0.8 103/ul Critically low 1.2-3.[address] [facility] Comment on above: Performed By: #### C BC #### [facility] [address] [place] [address] Dr. Jessie Lomax Lymphocytes/100 WBC (Bld) 5.7 % Critically low 20.5-60.0 [facility] Comment on above: Performed By: #### C BC #### [facility] [address] [address] [address] Jessie Lomax MANUAL DIFF REQ NO Normal [facility] Comment on above: Performed By: #### C BC #### [facility] [address] [place] [address] Dr. Jessie Lomax MCH (RBC) [Entitic mass] 30.2 pg Normal 25.9-34.0 [facility] Comment on above: Performed By: #### C BC #### [facility] [address] [place] [address] Dr. Jessie Lomax MCHC (RBC) [Mass/Vol] 33.3 g/dL Normal 29.9-35.2 [facility] Comment on above: Performed By: #### C BC #### [facility] [address] [place] [address] Dr. Jessie Lomax MCV (RBC) [Entitic vol] 90.8 fL Normal 80.0-94.0 [facility] Comment on above: Performed By: #### C BC #### [facility] [address] [place] [address] Dr. Jessie Lmoax MONO # 0.4 103/ul Normal 0.3-0.8 [facility] Comment on above: Performed By: #### C BC #### [facility] [address] [place] [address] Dr. Jessie Lomax Monocytes/100 WBC (Bld) 2.9 % Normal 1.7-12.0 [facility] Comment on above: Performed By: #### C BC #### [facility] [address] [place] [address] Dr. Jessie Lomax NEUT # 12.3 103/ul Critically high 1.4-6.5 [facility] Comment on above: Performed By: #### C BC #### [facility] [address] [place] [address] Dr. Jessie Lomax Neutrophils/100 WBC (Bld) 90.6 % Critically high 43.0-75.0 [facility] Comment on above: Performed By: #### C BC #### [facility] [address] [address] [address] Jessie Lomax Platelet mean volume (Bld) [Entitic vol] 9.3 fL Critically low 9.5-13.5 [facility] Comment on above: Performed By: #### C BC #### [facility] [address] [address] [address] Jessie Lomax PLT 389 103/ul Normal 150-450 [facility] Comment on above: Performed By: #### C BC #### [facility] [address] [address] [address] Jessie Lomax RBC 5.10 106/ul Normal 4.70-6.10 [facility] Comment on above: Performed By: #### C BC #### [facility] [address] [address] [address] Jessie Lomax WBC 13.6 103/ul Critically high 4.0-11.0 [facility] Comment on above: Performed By: #### C BC #### [facility] [address] [address] [address] Jessie Lomax POINT OF CARE GLUCOSEon 08-18 Glucose [Mass/Vol] 283 mg/dL Critically high 74-106 [facility] Comment on above: Performed By: #### C BC #### [facility] [address] [place] [address] Dr. Jessie Lomax Glucose [Mass/Vol] 315 mg/dL Critically high 74-106 [facility] Comment on above: Performed By: #### T TYLER #### [facility] [address] [place] [address] Dr. Jessie Lomax PROF 14(COMP METB)on 023 Albumin [Mass/Vol] 3.7 g/dL Normal 3.4-5.0 [facility] Comment on above: Performed By: #### C MP #### [facility] [address] [place] [address] Dr. Jessie Lomax Albumin/Globulin [Mass ratio] 1.0 {ratio} Normal [facility] Comment on above: Performed By: #### C MP #### [facility] [address] [address] [address] Jessie Lomax ALP [Catalytic activity/Vol] 94 U/L Normal 46-116 [facility] Comment on above: Performed By: #### C MP #### [facility] [address] [place] [address] Dr. Jessie Lomax ALT [Catalytic activity/Vol] 23 U/L Normal 16-63 [facility] Comment on above: Performed By: #### C MP #### [facility] [address] [address] [address] Jessie Lomax Anion gap [Moles/Vol] 13.6 mmol/L Normal [facility] Comment on above: Performed By: #### C MP #### [facility] [address] [place] [address] Dr. Jessie Lomax AST [Catalytic activity/Vol] 9 U/L Critically low 15-37 [facility] Comment on above: Performed By: #### C MP #### [facility] [address] [place] [address] Dr. Jessie Lomax Bilirubin [Mass/Vol] 0.3 mg/dL Normal 0.2-1.0 [facility] Comment on above: Performed By: #### C MP #### [facility] [address] [place] [address] Dr. Jessie Lomax Calcium [Mass/Vol] 9.8 mg/dL Normal 8.5-10.1 [facility] Comment on above: Performed By: #### C MP #### [facility] [address] [place] [address] Dr. Jessie Lomax Chloride [Moles/Vol] 99 mmol/L Normal 98-107 [facility] Comment on above: Performed By: #### C MP #### [facility] [address] [place] [address] Dr. Jessie Lomax CO2 [Moles/Vol] 29.2 mmol/L Normal 21.0-32.0 [facility] Comment on above: Performed By: #### C MP #### [facility] [address] [place] [address] Dr. Jessie Lomax Creatinine [Mass/Vol] 1.17 mg/dL Normal 0.70-1.30 [facility] Comment on above: Performed By: #### C MP #### [facility] [address] [address] [address] Jessie Lomax EGFR-AF BELGIAN >60 Normal >=60 [facility] Comment on above: Performed By: #### C MP #### [facility] [address] [address] [address] Jessie Lomax EGFR-NON AF BELGIAN >60 Normal >=60 [facility] Comment on above: Performed By: #### C MP #### [facility] [address] [address] [address] Jessie Lomax Globulin (S) [Mass/Vol] 3.6 g/dL Normal [facility] Comment on above: Performed By: #### C MP #### [facility] [address] [address] [address] Jessie Lomax Glucose [Mass/Vol] 259 mg/dL Critically high 74-106 [facility] Comment on above: Performed By: #### C MP #### [facility] [address] [address] [address] Jessie Lomax Potassium [Moles/Vol] 3.8 mmol/L Normal 3.5-5.1 [facility] Comment on above: Performed By: #### C MP #### [facility] [address] [address] [address] Jessie Lomax Protein [Mass/Vol] 7.3 g/dL Normal 6.4-8.2 [facility] Comment on above: Performed By: #### C MP #### [facility] [address] [address] [address] Jessie Lomax Sodium [Moles/Vol] 138 mmol/L Normal 136-145 [facility] Comment on above: Performed By: #### C MP #### [facility] [address] [address] [address] Jessie Lomax Urea nitrogen [Mass/Vol] 21.0 mg/dL Critically high 7.0-18.0 [facility] Comment on above: Performed By: #### C MP #### [facility] [address] [address] [address] Jessie Lomax Urea nitrogen/Creatinine [Mass ratio] 17.9 mg/mg [facility] Comment on above: Performed By: #### C MP #### [facility] [address] [address] [address] Jessie Lomax BLOOD GASES BTYon 08-29-2022 02 MODE HAND HELD NEB Normal [facility] Comment on above: Performed By: #### C MP #### [facility] [address] [address] [address] Jessie Lomax ALLENS TEST Positive [facility] Comment on above: Performed By: #### C MP #### [facility] [address] [address] [address] Jessie Lomax Base excess Calc (Bld) [Moles/Vol] 2.1 mmol/L Critically high -2.0-2.0 [facility] Comment on above: Performed By: #### C MP #### [facility] [address] [address] [address] Jessie Lomax BIPAP PRESSURE [facility] Comment on above: Performed By: #### C MP #### [facility] [address] [address] [address] Jessie Lomax CPAP [facility] Comment on above: Performed By: #### C MP #### [facility] [address] [address] [address] Jessie Lomax FIO2 [facility] Comment on above: Performed By: #### C MP #### [facility] [address] [address] [address] Jessie Lomax HCO3 (Bld) [Moles/Vol] 27.7 mmol/L Critically high 22.0-26.0 [facility] Comment on above: Performed By: #### C MP #### [facility] [address] [address] [address] Jessie Lomax LPM 6 [facility] Comment on above: Performed By: #### C MP #### [facility] [address] [address] [address] Jessie Lomax MINUTE VOLUME Normal [facility] Comment on above: Performed By: #### C MP #### [facility] [address] [place] [address] Dr. Jessie Lomax Oxygen (Bld) [Partial pressure] 90.6 mm[Hg] Normal 80.0-100.0 [facility] Comment on above: Performed By: #### C MP #### [facility] [address] [address] [address] Jessie Lomax Oxygen saturation in Blood 95.5 % Normal 95.0-100.0 [facility] Comment on above: Performed By: #### C MP #### [facility] [address] [place] [address] Dr. Jessie Lomax PCO2 49.7 mmHg Critically high 35.0-45.0 [facility] [place] Comment on above: Performed By: #### C MP #### [facility] [address] [place] [address] Dr. Jessie Lomax PEEP [facility] Comment on above: Performed By: #### C MP #### [facility] [address] [address] [address] Jessie Lomax pH (Bld) 7.354 [pH] Normal 7.350-7.450 [facility] Comment on above: Performed By: #### C MP #### [facility] [address] [place] [address] Dr. Jessie Lomax PIP [facility] Comment on above: Performed By: #### C MP #### [facility] [address] [place] [address] Dr. Jessie Lomax PS [facility] Comment on above: Performed By: #### C MP #### [facility] [address] [place] [address] Dr. Jessie Lomax PUNCTURE SITE RR [facility] Comment on above: Performed By: #### C MP #### [facility] [address] [place] [address] Dr. Jessie Lomax RATE [facility] Comment on above: Performed By: #### C MP #### [facility] [address] [place] [address] Dr. Jessie Lomax VENT MODE [facility] Comment on above: Performed By: #### C MP #### [facility] [address] [place] [address] Dr. Jessie Lomax [facility] Comment on above: Performed By: #### C MP #### [facility] [facility] [address] [place] [address] Dr. Jessie Lomax BNPon 08-29-2022 Natriuretic peptide B (Bld) [Mass/Vol] 130.0 pg/mL Normal <=900.0 [facility] Comment on above: Performed By: #### B [id number] #### [facility] [address] [place] [address] Dr. Jessie Lomax CARDIAC JUSTINE ADMITon 023 CK [Catalytic activity/Vol] 41 U/L Normal 39-308 [facility] Comment on above: Performed By: #### B [id number] #### [facility] [address] [place] [address] Dr. Jessie Lomax CK.MB [Mass/Vol] 1.87 ng/mL Normal <=3.60 [facility] Comment on above: Performed By: #### B [id number] #### [facility] [address] [place] [address] Dr. Jessie Lomax HSTROP 27.3 pg/mL Normal 4.0-76.1 [facility] Comment on above: Result Comment: CUT- OFF POINTS HAVE BEEN ESTABLISHED BASED ON THE FOURTH UNIVERSAL DEFINITIONS OF MYOCARDIAL INFARCTION. THE UPPER REFERENCE LIMIT (URL) OF TROPONIN, DEFINED THE 99TH PERCENTILE OF cTnI DISTRIBUTION IN A REFERENCE POPULATION, HAS BEEN CONFIRMED THE DECISION THRESHOLD FOR [place] DIAGNOSIS. Performed By: #### B [id number] #### [facility] [address] [place] [address] Dr. Jessie Lomax HERLINDA 36 ng/mL Normal 16-96 [facility] Comment on above: Performed By: #### B [id number] #### [facility] [address] [address] [address] Jessie Lomax CBC AUTO DIFFon 08-29-2022 BASO # 0.1 103/ul Normal 0.0-0.1 [facility] Comment on above: Performed By: #### C BC #### [facility] [address] [place] [address] Dr. Jessie Lomax Basophils/100 WBC (Bld) 0.7 % Normal 0.2-2.0 [facility] Comment on above: Performed By: #### C BC #### [facility] [address] [place] [address] Dr. Jessie Lomax EO # 0.1 103/ul Normal 0.0-0.7 [facility] Comment on above: Performed By: #### C BC #### [facility] [address] [place] [address] Dr. Jessie Lomax Eosinophils/100 WBC (Bld) 0.8 % Critically low 0.9-7.0 [facility] Comment on above: Performed By: #### C BC #### [facility] [address] [place] [address] Dr. Jessie Lomax Erythrocyte distribution width (RBC) [Ratio] 13.6 % Normal 11.0-15.0 [facility] Comment on above: Performed By: #### C BC #### [facility] [address] [place] [address] Dr. Jessie Lomax Hematocrit (Bld) [Volume fraction] 51.6 % Normal 42.0-54.0 [facility] Comment on above: Performed By: #### C BC #### [facility] [address] [place] [address] Dr. Jessie Lomax Hemoglobin (Bld) [Mass/Vol] 17.1 g/dL Normal 14.0-18.0 [facility] Comment on above: Performed By: #### C BC #### [facility] [address] [place] [address] Dr. Jessie Lomax IG # 0.05 10e3/ul Critically high 0.00-0.03 [facility] Comment on above: Performed By: #### C BC #### [facility] [address] [place] [address] Dr. Jessie Lomax IG % 0.5 % Normal 0.0-0.5 [facility] Comment on above: Performed By: #### C BC #### [facility] [address] [place] [address] Dr. Jessie Lomax LYMPH # 2.1 103/ul Normal 1.2-3.8 [facility] Comment on above: Performed By: #### C BC #### [facility] [address] [place] [address] Dr. Jessie Lomax Lymphocytes/100 WBC (Bld) 20.9 % Normal 20.5-60.0 [facility] Comment on above: Performed By: #### C BC #### [facility] [address] [place] [address] Dr. Jessie Lomax MANUAL DIFF REQ NO Normal [facility] Comment on above: Performed By: #### C BC #### [facility] [address] [place] [address] Dr. Jessie Lomax MCH (RBC) [Entitic mass] 30.7 pg Normal 25.9-34.0 [facility] Comment on above: Performed By: #### C BC #### [facility] [address] [place] [address] Dr. Jessie Lomax MCHC (RBC) [Mass/Vol] 33.1 g/dL Normal 29.9-35.2 [facility] Comment on above: Performed By: #### C BC #### [facility] [address] [place] [address] Dr. Jessie Lomax MCV (RBC) [Entitic vol] 92.6 fL Normal 80.0-94.0 [facility] Comment on above: Performed By: #### C BC #### [facility] [address] [place] [address] Dr. Jessie Lomax MONO # 1.0 103/ul Critically high 0.3-0.8 [facility] Comment on above: Performed By: #### C BC #### [facility] [address] [place] [address] Dr. Jessie Lomax Monocytes/100 WBC (Bld) 9.5 % Normal 1.7-12.0 [facility] Comment on above: Performed By: #### C BC #### [facility] [address] [place] [address] Dr. Jessie Lomax NEUT # 6.7 103/ul Critically high 1.4-6.5 [facility] Comment on above: Performed By: #### C BC #### [facility] [address] [place] [address] Dr. Jessie Lomax Neutrophils/100 WBC (Bld) 67.6 % Normal 43.0-75.0 [facility] Comment on above: Performed By: #### C BC #### [facility] [address] [place] [address] Dr. Jessie Lomax Platelet mean volume (Bld) [Entitic vol] 9.5 fL Normal 9.5-13.5 [facility] Comment on above: Performed By: #### C BC #### [facility] [address] [place] [address] Dr. Jessie Lomax PLT 407 103/ul Normal 150-450 [facility] Comment on above: Performed By: #### C BC #### [facility] [address] [place] [address] Dr. Jessie Lomax RBC 5.57 106/ul Normal 4.70-6.10 [facility] Comment on above: Performed By: #### C BC #### [facility] [address] [place] [address] Dr. Jessie Lomax WBC 10.0 103/ul Normal 4.0-11.0 [facility] Comment on above: Performed By: #### C BC #### [facility] [address] [place] [address] Dr. Jessie Lomax CULTURE BLOODon 08-29-2022 Microscopic examination of blood, culture Culture Observations: NO GROWTH AT 5 DAYS. Normal [facility] Comment on above: Performed By: #### C MP #### [facility] [address] [place] [address] Dr. Jessie Lomax Microscopic examination of blood, culture Culture Observations: NO GROWTH AT 5 DAYS. Normal [facility] Comment on above: Performed By: #### B [id number] #### [facility] [address] [place] [address] Dr. Jessie Lomax Covid-19 PCR ([facility])on 08-18 SARS-CoV-2 (COVID-19) RNA YOLANDA+probe Ql (Unsp spec) Not detected Normal NOT DETECTED [facility] Comment on above: Result Comment: When diagnostic [...] for this test is supported by the 911 Operator of Health and Human Service's declaration that [...] used). Performed By: #### B [id number] #### [facility] [address] [place] [address] Dr. Jessie Lomax ER URINE PROFILEon 3 Bilirubin Ql (U) Negative Normal NEGATIVE [facility] Comment on above: Performed By: #### A CETON #### [facility] [address] [place] [address] Dr. Jessie Lomax Clarity (U) CLEAR Normal CLEAR [facility] Comment on above: Performed By: #### A CETON #### [facility] [address] [place] [address] Dr. Jessie Lomax Color (U) YELLOW Normal YELLOW [facility] Comment on above: Performed By: #### A CETON #### [facility] [address] [address] [address] Jessie Jara micrscopic examination will be performed if indicated. Normal [facility] Comment on above: Performed By: #### A CETON #### [facility] [address] [place] [address] Dr. Jessie Lomax Glucose Ql (U) 500 mg/dl Abnormal NEGATIVE [facility] Comment on above: Performed By: #### A CETON #### [facility] [address] [address] [address] Jessie Lomax Hemoglobin Ql (U) Negative Normal NEGATIVE [facility] Comment on above: Performed By: #### A CETON #### [facility] [address] [place] [address] Dr. Jessie Lomax Ketones Ql (U) TRACE Abnormal NEGATIVE [facility] Comment on above: Performed By: #### A CETON #### [facility] [address] [place] [address] Dr. Jessie Lomax LEUKOCYTES Negative Normal NEGATIVE [facility] Comment on above: Performed By: #### A CETON #### [facility] [address] [address] [address] Jessie Lomax Nitrite Ql (U) Negative Normal NEGATIVE [facility] Comment on above: Performed By: #### A CETON #### [facility] [address] [place] [address] Dr. Jessie Lomax pH (U) 5.5 [pH] Normal 5-9 [facility] Comment on above: Performed By: #### A CETON #### [facility] [address] [place] [address] Dr. Jessie Lomax SPEC GRAVITY >=1.030 Abnormal 1.005-<=1.025 [facility] Comment on above: Performed By: #### A CETON #### [facility] [address] [place] [address] Dr. Jessie Lomax UA PROTEIN Negative Normal NEGATIVE/ TRACE [facility] Comment on above: Performed By: #### A CETON #### [facility] [address] [address] [address] Jessie Lomax UR MICRO IND NOT INDICATED Normal [facility] Comment on above: Performed By: #### A CETON #### [facility] [address] [address] [address] Jessie Lomax Urobilinogen Qn (U) 0.2 {Angelique'U}/dL Normal 0.2 - 1. 0 [facility] Comment on above: Performed By: #### A CETON #### [facility] [address] [place] [address] Dr. Jessie Lomax LACTATE/LACTIC ACIDon 2022 Lactate [Moles/Vol] 1.6 mmol/L Normal 0.4-1.9 [facility] Comment on above: Performed By: #### L ACT #### [facility] [address] [place] [address] Dr. Jessie Lomax POINT OF CARE GLUCOSEon 08-18 Glucose [Mass/Vol] 330 mg/dL Critically high [address] [place] [address] Comment on above: Performed By: #### A CETON #### [facility] [address] [place] [address] Dr. Jessie Lomax Glucose [Mass/Vol] 284 mg/dL Critically high [address] [place] [address] Comment on above: Performed By: #### C BC #### [facility] [address] [place] [address] Dr. Jessie Lomax Glucose [Mass/Vol] 379 mg/dL Critically high [address] [place] [address] Comment on above: Performed By: #### B [id number] #### [facility] [address] [place] [address] Dr. Jessie Lomax Glucose [Mass/Vol] 276 mg/dL Critically high [address] [place] [address] Comment on above: Performed By: #### T TYLER #### [facility] [address] [place] [address] Dr. Jessie Lomax PROF 14(COMP METB)on 023 Albumin [Mass/Vol] 3.8 g/dL Normal 3.4-5.0 [facility] Comment on above: Performed By: #### B [id number] #### [facility] [address] [address] [address] Jessie Lomax Albumin/Globulin [Mass ratio] 1.0 {ratio} Normal [facility] Comment on above: Performed By: #### B [id number] #### [facility] [address] [address] [address] Jessie Lomax ALP [Catalytic activity/Vol] 106 U/L Normal 46-116 [facility] Comment on above: Performed By: #### B [id number] #### [facility] [address] [address] [address] Jessie Lomax ALT [Catalytic activity/Vol] 27 U/L Normal 16-63 [facility] Comment on above: Performed By: #### B [id number] #### [facility] [address] [place] [address] Dr. Jessie Lomax Anion gap [Moles/Vol] 12.0 mmol/L Normal [facility] Comment on above: Performed By: #### B [id number] #### [facility] [address] [place] [address] Dr. Jessei Lomax AST [Catalytic activity/Vol] 15 U/L Normal 15-37 [facility] Comment on above: Performed By: #### B [id number] #### [facility] [address] [place] [address] Dr. Jessie Lomax Bilirubin [Mass/Vol] 0.3 mg/dL Normal 0.2-1.0 [facility] Comment on above: Performed By: #### B [id number] #### [facility] [address] [address] [address] Jessie Lomax Calcium [Mass/Vol] 10.0 mg/dL Normal 8.5-10.1 [facility] Comment on above: Performed By: #### B [id number] #### [facility] [address] [address] [address] Jessie Lomax Chloride [Moles/Vol] 101 mmol/L Normal 98-107 [facility] Comment on above: Performed By: #### B [id number] #### [facility] [address] [address] [address] Jessie Lomax CO2 [Moles/Vol] 32.4 mmol/L Critically high 21.0-32.0 [facility] Comment on above: Performed By: #### B [id number] #### [facility] [address] [address] [address] Jessie Lomax Creatinine [Mass/Vol] 1.14 mg/dL Normal 0.70-1.30 [facility] Comment on above: Performed By: #### B [id number] #### [facility] [address] [place] [address] Dr. Jessie Lomax EGFR-AF BELGIAN >60 Normal >=60 [facility] Comment on above: Performed By: #### B [id number] #### [facility] [address] [place] [address] Dr. Jessie Lomax EGFR-NON AF BELGIAN >60 Normal >=60 [facility] Comment on above: Performed By: #### B [id number] #### [facility] [address] [place] [address] Dr. Jessie Lomax Globulin (S) [Mass/Vol] 3.7 g/dL Normal [facility] Comment on above: Performed By: #### B [id number] #### [facility] [address] [place] [address] Dr. Jessie Lomax Glucose [Mass/Vol] 204 mg/dL Critically high 74-106 [facility] Comment on above: Performed By: #### B [id number] #### [facility] [address] [place] [address] Dr. Jessie Lomax Potassium [Moles/Vol] 4.4 mmol/L Normal 3.5-5.1 [facility] Comment on above: Performed By: #### B [id number] #### [facility] [address] [address] [address] Jessie Lomax Protein [Mass/Vol] 7.5 g/dL Normal 6.4-8.2 [facility] Comment on above: Performed By: #### B [id number] #### [facility] [address] [address] [address] Jessie Lomax Sodium [Moles/Vol] 141 mmol/L Normal 136-145 [facility] Comment on above: Performed By: #### B [id number] #### [facility] [address] [address] [address] Jessie Lomax Urea nitrogen [Mass/Vol] 23.0 mg/dL Critically high 7.0-18.0 [facility] Comment on above: Performed By: #### B [id number] #### [facility] [address] [address] [address] Jessie Lomax Urea nitrogen/Creatinine [Mass ratio] 20.2 mg/mg Normal [facility] Comment on above: Performed By: #### B [id number] #### [facility] [address] [place] [address] Dr. Jessie Lomax THEOPHYLLINEon 08-29-2022 THEOPHYLLINE <2.0 Critically low 10.0-20.0 [facility] Comment on above: Performed By: #### B [id number] #### [facility] [address] [address] [address] Jessie Lomax XR CHEST 1 Von [...] by: YADIRA BALLESTEROS Date: 2022-08-29 02:03 Normal [facility] ACETONE SERUMon 08-17-2022 ACETONE Negative Normal NEGATIVE [facility] Comment on above: Performed By: #### A CETON #### [facility] [address] [place] [address] Dr. Jessie Lomax BNPon 08-17-2022 Natriuretic peptide B (Bld) [Mass/Vol] 294.0 pg/mL Normal <=900.0 [facility] Comment on above: Performed By: #### A CETON #### [facility] [address] [place] [address] Dr. Jessie Lomax CBC AUTO DIFFon 08-17-2022 BASO # 0.1 103/ul Normal 0.0-0.1 [facility] Comment on above: Performed By: #### C BC #### [facility] [address] [place] [address] Dr. Jessie Lomax Basophils/100 WBC (Bld) 0.7 % Normal 0.2-2.0 [facility] Comment on above: Performed By: #### C BC #### [facility] [address] [place] [address] Dr. Jessie Lomax EO # 0.1 103/ul Normal 0.0-0.7 [facility] Comment on above: Performed By: #### C BC #### [facility] [address] [place] [address] Dr. Jessie Lomax Eosinophils/100 WBC (Bld) 0.9 % Normal 0.9-7.0 [facility] Comment on above: Performed By: #### C BC #### [facility] [address] [place] [address] Dr. Jessie Lomax Erythrocyte distribution width (RBC) [Ratio] 13.4 % Normal 11.0-15.0 [facility] Comment on above: Performed By: #### C BC #### [facility] [address] [place] [address] Dr. Jessie Lomax Hematocrit (Bld) [Volume fraction] 43.2 % Normal 42.0-54.0 [facility] Comment on above: Performed By: #### C BC #### [facility] [address] [place] [address] Dr. Jessie Lomax Hemoglobin (Bld) [Mass/Vol] 14.5 g/dL Normal 14.0-18.0 [facility] Comment on above: Performed By: #### C BC #### [facility] [address] [place] [address] Dr. Jessie Lomax IG # 0.04 10e3/ul Critically high 0.00-0.03 [facility] Comment on above: Performed By: #### C BC #### [facility] [address] [place] [address] Dr. Jessie Lomax IG % 0.5 % Normal 0.0-0.5 [facility] Comment on above: Performed By: #### C BC #### [facility] [address] [place] [address] Dr. Jessie Lomax LYMPH # 1.9 103/ul Normal 1.2-3.8 [facility] Comment on above: Performed By: #### C BC #### [facility] [address] [place] [address] Dr. Jessie Lomax Lymphocytes/100 WBC (Bld) 22.1 % Normal 20.5-60.0 [facility] Comment on above: Performed By: #### C BC #### [facility] [address] [place] [address] Dr. Jessie Lomax MANUAL DIFF REQ NO Normal [facility] Comment on above: Performed By: #### C BC #### [facility] [address] [place] [address] Dr. Jessie Lomax MCH (RBC) [Entitic mass] 30.7 pg Normal 25.9-34.0 [facility] Comment on above: Performed By: #### C BC #### [facility] [address] [place] [address] Dr. Jessie Lomax MCHC (RBC) [Mass/Vol] 33.6 g/dL Normal 29.9-35.2 [facility] Comment on above: Performed By: #### C BC #### [facility] [address] [place] [address] Dr. Jessie Lomax MCV (RBC) [Entitic vol] 91.5 fL Normal 80.0-94.0 [facility] Comment on above: Performed By: #### C BC #### [facility] [address] [place] [address] Dr. Jessie Lomax MONO # 0.7 103/ul Normal 0.3-0.8 [facility] Comment on above: Performed By: #### C BC #### [facility] [address] [place] [address] Dr. Jessie Lomax Monocytes/100 WBC (Bld) 7.7 % Normal 1.7-12.0 [facility] Comment on above: Performed By: #### C BC #### [facility] [address] [place] [address] Dr. Jessie Lomax NEUT # 5.8 103/ul Normal 1.4-6.5 [facility] Comment on above: Performed By: #### C BC #### [facility] [address] [place] [address] Dr. Jessie Lomax Neutrophils/100 WBC (Bld) 68.1 % Normal 43.0-75.0 [facility] Comment on above: Performed By: #### C BC #### [facility] [address] [place] [address] Dr. Jessie Lomax Platelet mean volume (Bld) [Entitic vol] 9.0 fL Critically low 9.5-13.5 [facility] Comment on above: Performed By: #### C BC #### [facility] [address] [place] [address] Dr. Jessie Lomax PLT 275 103/ul Normal 150-450 [facility] Comment on above: Performed By: #### C BC #### [facility] [address] [place] [address] Dr. Jessie Lomax RBC 4.72 106/ul Normal 4.70-6.10 [facility] Comment on above: Performed By: #### C BC #### [facility] [address] [place] [address] Dr. Jessie Lomax WBC 8.6 103/ul Normal 4.0-11.0 [facility] Comment on above: Performed By: #### C BC #### [facility] [address] [place] [address] Dr. Jessie Lmoax CTA CHEST WO W CONon 023 CTA [...] DAVID GIBBS Date: 2022-08-17 17:23 Normal [facility] CULTURE BLOODon 08-17-2022 Microscopic examination of blood, culture Culture Observations: NO GROWTH AT 5 DAYS. Normal [facility] Comment on above: Performed By: #### C MP #### [facility] [address] [place] [address] Dr. Jessie Lomax Microscopic examination of blood, culture Culture Observations: NO GROWTH AT 5 DAYS. Normal [facility] Comment on above: Performed By: #### B [id number] #### [facility] [address] [place] [address] Dr. Jessie Lomax [facility] SARS-CoV-2 (COVID-19) RNA YOLANDA+probe Ql (Unsp spec) Not detected Normal NOT DETECTED [facility] Comment on above: Result Comment: When diagnostic [...] for this test is supported by the 911 Operator of Health and Human Service's declaration that [...] used). Performed By: #### C BC #### [facility] [address] [place] [address] Dr. Jessie Lomax LACTATE/LACTIC ACIDon 2022 Lactate [Moles/Vol] 2.0 mmol/L Critically high 0.4-1.9 [facility] Comment on above: Performed By: #### C BC #### [facility] [address] [place] [address] Dr. Jessie Lomax PH VENOUS BLOODon 08-17-2022 PCO2 VENOUS 44.5 mmHg Normal 40.0-52.0 [facility] Comment on above: Performed By: #### C BC #### [facility] [address] [place] [address] Dr. Jessie Lomax pH VENOUS 7.433 Critically high 7.330-7.430 [facility] Comment on above: Performed By: #### C BC #### [facility] [address] [place] [address] Dr. Jessie Lomax PROF 14(COMP METB)on 023 Albumin [Mass/Vol] 3.4 g/dL Normal 3.4-5.0 [facility] Comment on above: Performed By: #### C BC #### [facility] [address] [place] [address] Dr. Jessie Lomax Albumin/Globulin [Mass ratio] 1.1 {ratio} Normal [facility] Comment on above: Performed By: #### C BC #### [facility] [address] [address] [address] Jessie Lomax ALP [Catalytic activity/Vol] 90 U/L Normal 46-116 [facility] Comment on above: Performed By: #### C BC #### [facility] [address] [place] [address] Dr. Jessie Lomax ALT [Catalytic activity/Vol] 26 U/L Normal 16-63 [facility] Comment on above: Performed By: #### C BC #### [facility] [address] [place] [address] Dr. Jessie Lomax Anion gap [Moles/Vol] 11.1 mmol/L Normal [facility] Comment on above: Performed By: #### C BC #### [facility] [address] [place] [address] Dr. Jessie Lomax AST [Catalytic activity/Vol] 9 U/L Critically low 15-37 [facility] Comment on above: Performed By: #### C BC #### [facility] [address] [place] [address] Dr. Jessie Lomax Bilirubin [Mass/Vol] 0.2 mg/dL Normal 0.2-1.0 [facility] Comment on above: Performed By: #### C BC #### [facility] [address] [place] [address] Dr. Jessie Lomax Calcium [Mass/Vol] 9.0 mg/dL Normal 8.5-10.1 [facility] Comment on above: Performed By: #### C BC #### [facility] [address] [place] [address] Dr. Jessie Lomax Chloride [Moles/Vol] 103 mmol/L Normal 98-107 [facility] Comment on above: Performed By: #### C BC #### [facility] [address] [place] [address] Dr. Jessie Lomax CO2 [Moles/Vol] 31.5 mmol/L Normal 21.0-32.0 [facility] Comment on above: Performed By: #### C BC #### [facility] [address] [place] [address] Dr. Jessie Lomax Creatinine [Mass/Vol] 0.94 mg/dL Normal 0.70-1.30 [facility] Comment on above: Performed By: #### C BC #### [facility] [address] [address] [address] Jessie Lomax EGFR-AF BELGIAN >60 Normal >=60 [facility] Comment on above: Performed By: #### C BC #### [facility] [address] [address] [address] Jessie Lomax EGFR-NON AF BELGIAN >60 Normal >=60 [facility] Comment on above: Performed By: #### C BC #### [facility] [address] [address] [address] Jessie Lomax Globulin (S) [Mass/Vol] 3.2 g/dL Normal [facility] Comment on above: Performed By: #### C BC #### [facility] [address] [address] [address] Jessie Lomax Glucose [Mass/Vol] 124 mg/dL Critically high 74-106 [facility] Comment on above: Performed By: #### C BC #### [facility] [address] [address] [address] Jessie Lomax Potassium [Moles/Vol] 3.6 mmol/L Normal 3.5-5.1 [facility] Comment on above: Performed By: #### C BC #### [facility] [address] [address] [address] Jessie Lomax Protein [Mass/Vol] 6.6 g/dL Normal 6.4-8.2 [facility] Comment on above: Performed By: #### C BC #### [facility] [address] [address] [address] Jessie Lomax Sodium [Moles/Vol] 142 mmol/L Normal 136-145 [facility] Comment on above: Performed By: #### C BC #### [facility] [address] [address] [address] Jessie Lomax Urea nitrogen [Mass/Vol] 14.0 mg/dL Normal 7.0-18.0 [facility] Comment on above: Performed By: #### C BC #### [facility] [address] [place] [address] Dr. Jessie Lomax Urea nitrogen/Creatinine [Mass ratio] 14.9 mg/mg Normal [facility] Comment on above: Performed By: #### C BC #### [facility] [address] [place] [address] Dr. Jessie Lomax PROTIMEon 08-17-2022 INR Coag (PPP) [Relative time] {INR} Normal [facility] Comment on above: Performed By: #### B [id number] #### [facility] [address] [place] [address] Dr. Jessie Lomax INR GUIDELINES SEE BELOW Normal [facility] Comment on above: Result Comment: VANESSA RED INR: 2.0 - 3.0 CONDITIONS NOT LISTED BELOW 2.5 - 3.5 FOR PROSTHETIC HEART VALVE REPLACEMENT 2.5 - 3.5 RECURRENT THROMBOSIS Performed By: #### B [id number] #### [facility] [address] [place] [address] Dr. Jessie Lomax PT Coag (PPP) [Time] 9.7 s Normal 9.0-11.6 [facility] Comment on above: Performed By: #### B [id number] #### [facility] [address] [place] [address] Dr. Jessie Lomax PTTon 08-17-2022 aPTT Coag (Bld) [Time] 23.4 s Normal 22.3-36.2 [facility] Comment on above: Performed By: #### B [id number] #### [facility] [address] [place] [address] Dr. Jessie Lomax TROPONIN, HIGH SENSITIVITYon 08-17-2022 HSTROP 14.6 pg/mL Normal 4.0-76.1 [facility] Comment on above: Result Comment: CUT- OFF POINTS HAVE BEEN ESTABLISHED BASED ON THE FOURTH UNIVERSAL DEFINITIONS OF MYOCARDIAL INFARCTION. THE UPPER REFERENCE LIMIT (URL) OF TROPONIN, DEFINED THE 99TH PERCENTILE OF cTnI DISTRIBUTION IN A REFERENCE POPULATION, HAS BEEN CONFIRMED THE DECISION THRESHOLD FOR [place] DIAGNOSIS. Performed By: #### A CETON #### [facility] [address] [place] [address] Dr. Jessie Lomax TSHon 08-17-2022 TSH 1.079 uIU/mL Normal 0.358-3.740 [facility] Comment on above: Performed By: #### C BC #### [facility] [address] [place] [address] Dr. Jessie Lomax THEOPHYLLINEon 08-10-2022 THEOPHYLLINE 11.3 ug/mL Normal 10.0-20.0 [facility] Comment on above: Performed By: #### T TYLER #### [facility] [address] [place] [address] Dr. Jessie Lomax CBC AUTO DIFFon 07-02-2022 BASO # 0.0 103/ul Normal 0.0-0.1 [facility] Comment on above: Performed By: #### T TYLER #### [facility] [address] [place] [address] Dr. Jessie Lomax Basophils/100 WBC (Bld) 0.1 % Critically low 0.2-2.0 [facility] Comment on above: Performed By: #### T TYLER #### [facility] [address] [place] [address] Dr. Jessie Lomax EO # 0.0 103/ul Normal 0.0-0.7 [facility] Comment on above: Performed By: #### T TYLER #### [facility] [address] [place] [address] Dr. Jessie Lomax Eosinophils/100 WBC (Bld) 0.1 % Critically low 0.9-7.0 [facility] Comment on above: Performed By: #### T TYLER #### [facility] [address] [place] [address] Dr. Jessie Lomax Erythrocyte distribution width (RBC) [Ratio] 13.6 % Normal 11.0-15.0 [facility] Comment on above: Performed By: #### T TYLER #### [facility] [address] [place] [address] Dr. Jessie Lomax Hematocrit (Bld) [Volume fraction] 44.4 % Normal 42.0-54.0 [facility] Comment on above: Performed By: #### T TYLER #### [facility] [address] [place] [address] Dr. Jessie Lomax Hemoglobin (Bld) [Mass/Vol] 14.9 g/dL Normal 14.0-18.0 [facility] Comment on above: Performed By: #### T TYLER #### [facility] [address] [place] [address] Dr. Jessie Lomax IG # 0.11 10e3/ul Critically high 0.00-0.03 [facility] Comment on above: Performed By: #### T TYLER #### [facility] [address] [place] [address] Dr. Jessie Lomax IG % 0.7 % Critically high 0.0-0.5 [facility] [place] Comment on above: Performed By: #### T TYLER #### [facility] [address] [place] [address] Dr. Jessie Lomax LYMPH # 0.8 103/ul Critically low 1.2-3.8 [facility] [place] Comment on above: Performed By: #### T TYLER #### [facility] [address] [place] [address] Dr. Jessie Lomax Lymphocytes/100 WBC (Bld) 5.1 % Critically low 20.5-60.0 [facility] Comment on above: Performed By: #### T TYLER #### [facility] [address] [place] [address] Dr. Jessie Lomax MANUAL DIFF REQ NO Normal [facility] [place] Comment on above: Performed By: #### T TYLER #### [facility] [address] [place] [address] Dr. Jessie Lomax MCH (RBC) [Entitic mass] 31.1 pg Normal 25.9-34.0 [facility] Comment on above: Performed By: #### T TYLER #### [facility] [address] [place] [address] Dr. Jessie Lomax MCHC (RBC) [Mass/Vol] 33.6 g/dL Normal 29.9-35.2 [facility] Comment on above: Performed By: #### T TYLER #### [facility] [address] [place] [address] Dr. Jessie Lomax MCV (RBC) [Entitic vol] 92.7 fL Normal 80.0-94.0 [facility] Comment on above: Performed By: #### T TYLER #### [facility] [address] [place] [address] Dr. Jessie Lomax MONO # 0.4 103/ul Normal 0.3-0.8 [facility] Comment on above: Performed By: #### T TYLER #### [facility] [address] [place] [address] Dr. Jessie Lomax Monocytes/100 WBC (Bld) 2.6 % Normal 1.7-12.0 [facility] Comment on above: Performed By: #### T TYLER #### [facility] [address] [place] [address] Dr. Jessie Lomax NEUT # 13.8 103/ul Critically high 1.4-6.5 [facility] Comment on above: Performed By: #### T TYLER #### [facility] [address] [place] [address] Dr. Jessie Lomax Neutrophils/100 WBC (Bld) 91.4 % Critically high 43.0-75.0 [facility] Comment on above: Performed By: #### T TYLER #### [facility] [address] [place] [address] Dr. Jessie Lomax Platelet mean volume (Bld) [Entitic vol] 9.9 fL Normal 9.5-13.5 [facility] Comment on above: Performed By: #### T TYLER #### [facility] [address] [place] [address] Dr. Jessie Lomax PLT 300 103/ul Normal 150-450 [facility] Comment on above: Performed By: #### T TYLER #### [facility] [address] [place] [address] Dr. Jessie Lomax RBC 4.79 106/ul Normal 4.70-6.10 [facility] Comment on above: Performed By: #### T TYLER #### [facility] [address] [place] [address] Dr. Jessie Lomax WBC 15.1 103/ul Critically high 4.0-11.0 [facility] Comment on above: Performed By: #### T TYLER #### [facility] [address] [place] [address] Dr. Jessie Lomax POINT OF CARE GLUCOSEon 06-17 Glucose [Mass/Vol] 288 mg/dL Critically high 74-106 [facility] Comment on above: Performed By: #### C BC #### [facility] [address] [place] [address] Dr. Jessie Lomax Glucose [Mass/Vol] 280 mg/dL Critically high 74-106 [facility] Comment on above: Performed By: #### T TYLER #### [facility] [address] [place] [address] Dr. Jessei Lomax PROF 14(COMP METB)on 022 Albumin [Mass/Vol] 3.7 g/dL Normal 3.4-5.0 [facility] Comment on above: Performed By: #### C MP #### [facility] [address] [place] [address] Dr. Jessie Lomax Albumin/Globulin [Mass ratio] 1.1 {ratio} Normal [facility] Comment on above: Performed By: #### C MP #### [facility] [address] [place] [address] Dr. Jessie Lomax ALP [Catalytic activity/Vol] 73 U/L Normal 46-116 [facility] Comment on above: Performed By: #### C MP #### [facility] [address] [place] [address] Dr. Jessie Lomax ALT [Catalytic activity/Vol] 22 U/L Normal 16-63 [facility] Comment on above: Performed By: #### C MP #### [facility] [address] [place] [address] Dr. Jessie Lomax Anion gap [Moles/Vol] 13.4 mmol/L Normal [facility] Comment on above: Performed By: #### C MP #### [facility] [address] [address] [address] Jessie Lomax AST [Catalytic activity/Vol] 16 U/L Normal 15-37 [facility] Comment on above: Performed By: #### C MP #### [facility] [address] [address] [address] Jessie Lomax Bilirubin [Mass/Vol] 0.3 mg/dL Normal 0.2-1.0 [facility] Comment on above: Performed By: #### C MP #### [facility] [address] [address] [address] Jessie oLmax Calcium [Mass/Vol] 9.3 mg/dL Normal 8.5-10.1 [facility] Comment on above: Performed By: #### C MP #### [facility] [address] [address] [address] Jessie Lomax Chloride [Moles/Vol] 98 mmol/L Normal 98-107 [facility] Comment on above: Performed By: #### C MP #### [facility] [address] [address] [address] Jessie Lomax CO2 [Moles/Vol] 29.9 mmol/L Normal 21.0-32.0 [facility] Comment on above: Performed By: #### C MP #### [facility] [address] [address] [address] Jesise Lomax Creatinine [Mass/Vol] 1.18 mg/dL Normal 0.70-1.30 [facility] Comment on above: Performed By: #### C MP #### [facility] [address] [address] [address] Jessie Lomax EGFR-AF BELGIAN >60 Normal >=60 [facility] Comment on above: Performed By: #### C MP #### [facility] [address] [address] [address] Jessie Lomax EGFR-NON AF BELGIAN >60 Normal >=60 [facility] Comment on above: Performed By: #### C MP #### [facility] [address] [address] [address] Jessie Lomax Globulin (S) [Mass/Vol] 3.3 g/dL Normal [facility] Comment on above: Performed By: #### C MP #### [facility] [address] [address] [address] Jessie Lomax Glucose [Mass/Vol] 329 mg/dL Critically high 74-106 [facility] Comment on above: Performed By: #### C MP #### [facility] [address] [address] [address] Jessie Lomax Potassium [Moles/Vol] 4.3 mmol/L Normal 3.5-5.1 [facility] Comment on above: Performed By: #### C MP #### [facility] [address] [place] [address] Dr. Jessie Lomax Protein [Mass/Vol] 7.0 g/dL Normal 6.4-8.2 [facility] Comment on above: Performed By: #### C MP #### [facility] [address] [address] [address] Jessie Lomax Sodium [Moles/Vol] 137 mmol/L Normal 136-145 [facility] Comment on above: Performed By: #### C MP #### [facility] [address] [address] [address] Jessie Lomax Urea nitrogen [Mass/Vol] 21.0 mg/dL Critically high 7.0-18.0 [facility] Comment on above: Performed By: #### C MP #### [facility] [address] [place] [address] Dr. Jessie Lomax Urea nitrogen/Creatinine [Mass ratio] 17.8 mg/mg Normal [facility] Comment on above: Performed By: #### C MP #### [facility] [address] [place] [address] Dr. Jessie Lomax CBC W MANUAL DIFFon 12-15-20 22 ATYPICAL LYMPH # Normal [facility] Comment on above: Performed By: #### C BC #### [facility] [address] [address] [address] Jessie Lomax ATYPICAL LYMPH % Normal [facility] Comment on above: Performed By: #### C BC #### [facility] [address] [place] [address] Dr. Jessie Lomax BAND # 0.1 103/ul Normal 0.0-0.3 [facility] Comment on above: Performed By: #### C BC #### [facility] [address] [place] [address] Dr. Jessie Lomax BAND % 1 % Normal 0-5 [facility] Comment on above: Performed By: #### C BC #### [facility] [address] [place] [address] Dr. Jessie Lomax BASOM # 0.00 103/ul Normal 0.00-0.10 [facility] Comment on above: Performed By: #### C BC #### [facility] [address] [place] [address] Dr. Jessie Lomax BASOM % 0.0 % Critically low 0.2-2.0 [facility] [place] Comment on above: Performed By: #### C BC #### [facility] [address] [place] [address] Dr. Jessie Lomax BLAST # Normal [facility] Comment on above: Performed By: #### C BC #### [facility] [address] [place] [address] Dr. Jessie Lomax BLAST % Normal [facility] Comment on above: Performed By: #### C BC #### [facility] [address] [place] [address] Dr. Jessie Lomax CORRECTED WBC Normal 4.0-11.0 [facility] Comment on above: Performed By: #### C BC #### [facility] [address] [place] [address] Dr. Jessie Lomax EOS # 0.12 103/ul Normal 0.00-0.70 [facility] Comment on above: Performed By: #### C BC #### [facility] [address] [place] [address] Dr. Jessie Lomax EOS% 1.0 % Normal 0.9-7.0 [facility] Comment on above: Performed By: #### C BC #### [facility] [address] [place] [address] Dr. Jessie Lomax HCT 45.4 % Normal 42.0-54.0 [facility] Comment on above: Performed By: #### C BC #### [facility] [address] [address] [address] Jessie Lomax HGB 15.5 g/dl Normal 14.0-18.0 [facility] Comment on above: Performed By: #### C BC #### [facility] [address] [place] [address] Dr. Jessie Lomax LYMPHM # 0.48 103/ul Critically low 1.20-3.80 [facility] [place] Comment on above: Performed By: #### C BC #### [facility] [address] [place] [address] Dr. Jessie Lomax LYMPHM% 4.0 % Critically low 20.5-60.0 [facility] [place] Comment on above: Performed By: #### C BC #### [facility] [address] [place] [address] Dr. Jessie Lomax MCH 31.8 pg Normal 25.9-34.0 [facility] Comment on above: Performed By: #### C BC #### [facility] [address] [place] [address] Dr. Jessie Lomax MCHC 34.1 g/dl Normal 29.9-35.2 [facility] Comment on above: Performed By: #### C BC #### [facility] [address] [place] [address] Dr. Jessie Lomax MCV 93.0 fL Normal 80.0-94.0 [facility] Comment on above: Performed By: #### C BC #### [facility] [address] [place] [address] Dr. Jessie Lomax METAMYELOCYTE # Normal [facility] Comment on above: Performed By: #### C BC #### [facility] [address] [place] [address] Dr. Jessie Lomax METAMYELOCYTE % Normal [facility] [place] Comment on above: Performed By: #### C BC #### [facility] [address] [place] [address] Dr. Jessie Lomax MONOM# 0.24 103/ul Critically low 0.30-0.80 [facility] [place] Comment on above: Performed By: #### C BC #### [facility] [address] [place] [address] Dr. Jessie Lomax MONOM% 2.0 % Normal 1.7-12.0 [facility] Comment on above: Performed By: #### C BC #### [facility] [address] [place] [address] Dr. Jessie Lomax MPV 9.6 fL Normal 9.5-13.5 [facility] Comment on above: Performed By: #### C BC #### [facility] [address] [place] [address] Dr. Jessie Lomax MYELOCYTE # Normal [facility] Comment on above: Performed By: #### C BC #### [facility] [address] [place] [address] Dr. Jessie Lomax MYELOCYTE % Normal [facility] Comment on above: Performed By: #### C BC #### [facility] [address] [place] [address] Dr. Jessie Lomax NRBC Normal [facility] Comment on above: Performed By: #### C BC #### [facility] [address] [place] [address] Dr. Jessie Lomax PLT 300 103/ul Normal 150-450 [facility] Comment on above: Performed By: #### C BC #### [facility] [address] [place] [address] Dr. Jessie Lomax RBC 4.88 106/ul Normal 4.70-6.10 [facility] Comment on above: Performed By: #### C BC #### [facility] [address] [place] [address] Dr. Jessie Lomax RDW 13.5 % Normal 11.0-15.0 [facility] Comment on above: Performed By: #### C BC #### [facility] [address] [place], [place] [address] Dr. Jessie Lomax SEG # 10.95 103/ul Critically high 1.40-6.50 [facility] Comment on above: Performed By: #### C BC #### [facility] [address] [address] [address] Jessie Lomax SEG % 92.0 % Critically high 43.0-75.0 [facility] [place] Comment on above: Performed By: #### C BC #### [facility] [address] [address] [address] Jessie Lomax WBC 11.9 103/ul Critically high 4.0-11.0 [facility] Comment on above: Performed By: #### C BC #### [facility] [address] [address] [address] Jessie Lomax POINT OF CARE GLUCOSEon 06-17 Glucose [Mass/Vol] 428 mg/dL Critically high 74-106 [facility] Comment on above: Performed By: #### A CETON #### [facility] [address] [address] [address] Jessie Lomax Glucose [Mass/Vol] 337 mg/dL Critically high 74-106 [facility] Comment on above: Performed By: #### B [id number] #### [facility] [address] [address] [address] Jessie Lomax Glucose [Mass/Vol] 233 mg/dL Critically high 74-106 [facility] Comment on above: Performed By: #### B [id number] #### [facility] [address] [address] [address] Jessie Lomax PROF 14(COMP METB)on 022 Albumin [Mass/Vol] 3.7 g/dL Normal 3.4-5.0 [facility] Comment on above: Performed By: #### C MP #### [facility] [address] [address] [address] Jessie Lomax Albumin/Globulin [Mass ratio] 1.1 {ratio} Normal [facility] Comment on above: Performed By: #### C MP #### [facility] [address] [address] [address] Jessie Lomax ALP [Catalytic activity/Vol] 86 U/L Normal 46-116 [facility] Comment on above: Performed By: #### C MP #### [facility] [address] [address] [address] Jessie Lomax ALT [Catalytic activity/Vol] 20 U/L Normal 16-63 [facility] Comment on above: Performed By: #### C MP #### [facility] [address] [address] [address] Jessie Lomax Anion gap [Moles/Vol] 13.8 mmol/L Normal [facility] Comment on above: Performed By: #### C MP #### [facility] [address] [place] [address] Dr. Jessie Lomax AST [Catalytic activity/Vol] 10 U/L Critically low 15-37 [facility] Comment on above: Performed By: #### C MP #### [facility] [address] [place] [address] Dr. Jessie Lomax Bilirubin [Mass/Vol] 0.3 mg/dL Normal 0.2-1.0 [facility] Comment on above: Performed By: #### C MP #### [facility] [address] [place] [address] Dr. Jessie Lomax Calcium [Mass/Vol] 9.3 mg/dL Normal 8.5-10.1 [facility] Comment on above: Performed By: #### C MP #### [facility] [address] [address] [address] Jessie Lomax Chloride [Moles/Vol] 101 mmol/L Normal 98-107 [facility] Comment on above: Performed By: #### C MP #### [facility] [address] [address] [address] Jessie Lomax CO2 [Moles/Vol] 27.0 mmol/L Normal 21.0-32.0 [facility] Comment on above: Performed By: #### C MP #### [facility] [address] [address] [address] Jessie Lomax Creatinine [Mass/Vol] 1.15 mg/dL Normal 0.70-1.30 [facility] Comment on above: Performed By: #### C MP #### [facility] [address] [place] [address] Dr. Jessie Lomax EGFR-AF BELGIAN >60 Normal >=60 [facility] Comment on above: Performed By: #### C MP #### [facility] [address] [address] [address] Jessie Lomax EGFR-NON AF BELGIAN >60 Normal >=60 [facility] Comment on above: Performed By: #### C MP #### [facility] [address] [place] [address] Dr. Jessie Lomax Globulin (S) [Mass/Vol] 3.5 g/dL Normal [facility] Comment on above: Performed By: #### C MP #### [facility] [address] [place] [address] Dr. Jessie Lomax Glucose [Mass/Vol] 284 mg/dL Critically high 74-106 [facility] Comment on above: Performed By: #### C MP #### [facility] [address] [place] [address] Dr. Jessie Lomax Potassium [Moles/Vol] 4.8 mmol/L Normal 3.5-5.1 [facility] Comment on above: Performed By: #### C MP #### [facility] [address] [place] [address] Dr. Jessie Lomax Protein [Mass/Vol] 7.2 g/dL Normal 6.4-8.2 [facility] Comment on above: Performed By: #### C MP #### [facility] [address] [place] [address] Dr. Jessie Lomax Sodium [Moles/Vol] 137 mmol/L Normal 136-145 [facility] Comment on above: Performed By: #### C MP #### [facility] [address] [place] [address] Dr. Jessei Lomax Urea nitrogen [Mass/Vol] 22.0 mg/dL Critically high 7.0-18.0 [facility] Comment on above: Performed By: #### C MP #### [facility] [address] [place] [address] Dr. Jessie Lomax Urea nitrogen/Creatinine [Mass ratio] 19.1 mg/mg Normal [facility] Comment on above: Performed By: #### C MP #### [facility] [address] [place] [address] Dr. Jessie Lomax ACETONE SERUMon 06-30-2022 ACETONE Negative Normal NEGATIVE [facility] Comment on above: Performed By: #### A CETON #### [facility] [address] [place] [address] Dr. Jessie Lomax BNPon 06-30-2022 Natriuretic peptide B (Bld) [Mass/Vol] 45.0 pg/mL Normal <=900.0 [facility] Comment on above: Performed By: #### T TYLER #### [facility] [address] [place] [address] Dr. Jessie Lomax CBC AUTO DIFFon 06-30-2022 BASO # 0.1 103/ul Normal 0.0-0.1 [facility] Comment on above: Performed By: #### C MP #### [facility] [address] [place] [address] Dr. Jessie Lomax Basophils/100 WBC (Bld) 0.9 % Normal 0.2-2.0 [facility] Comment on above: Performed By: #### C MP #### [facility] [address] [place] [address] Dr. Jessie Lomax EO # 0.1 103/ul Normal 0.0-0.7 [facility] Comment on above: Performed By: #### C MP #### [facility] [address] [place] [address] Dr. Jessie Lomax Eosinophils/100 WBC (Bld) 0.9 % Normal 0.9-7.0 [facility] Comment on above: Performed By: #### C MP #### [facility] [address] [place] [address] Dr. Jessie Lomax Erythrocyte distribution width (RBC) [Ratio] 13.4 % Normal 11.0-15.0 [facility] Comment on above: Performed By: #### C MP #### [facility] [address] [place] [address] Dr. Jessie Lomax Hematocrit (Bld) [Volume fraction] 47.0 % Normal 42.0-54.0 [facility] Comment on above: Performed By: #### C MP #### [facility] [address] [place] [address] Dr. Jessie Lomax Hemoglobin (Bld) [Mass/Vol] 16.0 g/dL Normal 14.0-18.0 [facility] Comment on above: Performed By: #### C MP #### [facility] [address] [place] [address] Dr. Jessie Lomax IG # 0.05 10e3/ul Critically high 0.00-0.03 [facility] Comment on above: Performed By: #### C MP #### [facility] [address] [place] [address] Dr. Jessie Lomax IG % 0.5 % Normal 0.0-0.5 [facility] Comment on above: Performed By: #### C MP #### [facility] [address] [place] [address] Dr. Jessie Lomax LYMPH # 2.0 103/ul Normal 1.2-3.8 [facility] Comment on above: Performed By: #### C MP #### [facility] [address] [place] [address] Dr. Jessie Lomax Lymphocytes/100 WBC (Bld) 20.1 % Critically low 20.5-60.0 [facility] Comment on above: Performed By: #### C MP #### [facility] [address] [place] [address] Dr. Jessie Lomax MANUAL DIFF REQ NO Normal [facility] Comment on above: Performed By: #### C MP #### [facility] [address] [place] [address] Dr. Jessie Lomax MCH (RBC) [Entitic mass] 31.5 pg Normal 25.9-34.0 [facility] Comment on above: Performed By: #### C MP #### [facility] [address] [address] [address] Jessie Lomax MCHC (RBC) [Mass/Vol] 34.0 g/dL Normal 29.9-35.2 [facility] Comment on above: Performed By: #### C MP #### [facility] [address] [address] [address] Jessie Lomax MCV (RBC) [Entitic vol] 92.5 fL Normal 80.0-94.0 [facility] Comment on above: Performed By: #### C MP #### [facility] [address] [place] [address] Dr. Jessie Lomax MONO # 0.7 103/ul Normal 0.3-0.8 [facility] Comment on above: Performed By: #### C MP #### [facility] [address] [place] [address] Dr. Jessie Lomax Monocytes/100 WBC (Bld) 6.8 % Normal 1.7-12.0 [facility] Comment on above: Performed By: #### C MP #### [facility] [address] [place] [address] Dr. Jessie Lomax NEUT # 6.9 103/ul Critically high 1.4-6.5 [facility] Comment on above: Performed By: #### C MP #### [facility] [address] [place] [address] Dr. Jessie Lomax Neutrophils/100 WBC (Bld) 70.8 % Normal 43.0-75.0 [facility] Comment on above: Performed By: #### C MP #### [facility] [address] [place] [address] Dr. Jessie Lomax Platelet mean volume (Bld) [Entitic vol] 9.5 fL Normal 9.5-13.5 [facility] Comment on above: Performed By: #### C MP #### [facility] [address] [place] [address] Dr. Jessie Lomax PLT 308 103/ul Normal 150-450 [facility] Comment on above: Performed By: #### C MP #### [facility] [address] [place] [address] Dr. Jessie Lomax RBC 5.08 106/ul Normal 4.70-6.10 [facility] Comment on above: Performed By: #### C MP #### [facility] [address] [place] [address] Dr. Jessie Lomax WBC 9.7 103/ul Normal 4.0-11.0 [facility] Comment on above: Performed By: #### C MP #### [facility] [address] [place] [address] Dr. Jessie Lomax CULTURE BLOODon 06-30-2022 Microscopic examination of blood, culture Culture Observations: NO GROWTH AT 5 DAYS. Normal [facility] Comment on above: Performed By: #### B [id number] #### [facility] [address] [place] [address] Dr. Jessie Lomax Microscopic examination of blood, culture Culture Observations: NO GROWTH AT 5 DAYS. Normal [facility] Comment on above: Performed By: #### B [id number] #### [facility] [address] [place] [address] Dr. Jessie Lomax [facility] SARS-CoV-2 (COVID-19) RNA YOLANDA+probe Ql (Unsp spec) Not detected Normal NOT DETECTED [facility] Comment on above: Result Comment: When [...] for this test is supported by the [place] of [employer] and Human Service's declaration that [...] used). Performed By: #### B [id number] #### [facility] [address] [place] [address] Dr. Jessie Lomax D-DIMERon 06-30-2022 D-DIMER 0.26 mg/L FEU Normal <=0.59 [facility] Comment on above: Performed By: #### C BC #### [facility] [address] [place] [address] Dr. Jessie Lomax D-DIMER COMMENTS SEE BELOW Normal [facility] Comment on above: Result Comment: Incr eases [...] hospitalization. Performed By: #### C BC #### [facility] [address] [place] [address] Dr. Jessie Lomax LACTATE/LACTIC ACIDon 2021 Lactate [Moles/Vol] 1.7 mmol/L Normal 0.4-1.9 [facility] Comment on above: Performed By: #### B [id number] #### [facility] [address] [place] [address] Dr. Jessie Lmoax PH VENOUS BLOODon 06-30-2022 PCO2 VENOUS 54.1 mmHg Critically high 40.0-52.0 [facility] Comment on above: Performed By: #### B [id number] #### [facility] [address] [place] [address] Dr. Jessie Lomax pH VENOUS 7.323 Critically low 7.330-7.430 [facility] Comment on above: Performed By: #### B [id number] #### [facility] [address] [place] [address] Dr. Jessie Lomax PROF 14(COMP METB)on 022 Albumin [Mass/Vol] 3.9 g/dL Normal 3.4-5.0 [facility] Comment on above: Performed By: #### T TYLER #### [facility] [address] [place] [address] Dr. Jessie Lomax Albumin/Globulin [Mass ratio] 1.1 {ratio} Normal [facility] Comment on above: Performed By: #### T TYLER #### [facility] [address] [place] [address] Dr. Jessie Lomax ALP [Catalytic activity/Vol] 96 U/L Normal 46-116 [facility] Comment on above: Performed By: #### T TYLER #### [facility] [address] [place] [address] Dr. Jessie Lomax ALT [Catalytic activity/Vol] 19 U/L Normal 16-63 [facility] Comment on above: Performed By: #### T TYLER #### [facility] [address] [place] [address] Dr. Jessie Lomax Anion gap [Moles/Vol] 4.5 mmol/L Normal [facility] Comment on above: Performed By: #### T TYLER #### [facility] [address] [place] [address] Dr. Jessie Lomax AST [Catalytic activity/Vol] 13 U/L Critically low 15-37 [facility] Comment on above: Performed By: #### T TYLER #### [facility] [address] [place] [address] Dr. Jessie Lomax Bilirubin [Mass/Vol] 0.4 mg/dL Normal 0.2-1.0 [facility] Comment on above: Performed By: #### T TYLER #### [facility] [address] [place] [address] Dr. Jessie Lomax Calcium [Mass/Vol] 9.2 mg/dL Normal 8.5-10.1 [facility] Comment on above: Performed By: #### T TYLER #### [facility] [address] [address] [address] Jessie Lomax Chloride [Moles/Vol] 103 mmol/L Normal 98-107 [facility] Comment on above: Performed By: #### T TYLER #### [facility] [address] [address] [address] Jessie Lomax CO2 [Moles/Vol] 26.3 mmol/L Normal 21.0-32.0 [facility] Comment on above: Performed By: #### T TYLER #### [facility] [address] [address] [address] Jessie Lomax Creatinine [Mass/Vol] 1.06 mg/dL Normal 0.70-1.30 [facility] Comment on above: Performed By: #### T TYLER #### [facility] [address] [place] [address] Dr. Jessie Lomax EGFR-AF BELGIAN >60 Normal >=60 [facility] Comment on above: Performed By: #### T TYLER #### [facility] [address] [address] [address] Jessie Lomax EGFR-NON AF BELGIAN >60 Normal >=60 [facility] Comment on above: Performed By: #### T TYLER #### [facility] [address] [address] [address] Jessie Lomax Globulin (S) [Mass/Vol] 3.5 g/dL Normal [facility] Comment on above: Performed By: #### T TYLER #### [facility] [address] [address] [address] Jessie Lomax Glucose [Mass/Vol] 221 mg/dL Critically high 74-106 [facility] Comment on above: Performed By: #### T TYLER #### [facility] [address] [address] [address] Jessie Lomax Potassium [Moles/Vol] 4.6 mmol/L Normal 3.5-5.1 [facility] Comment on above: Performed By: #### T TYLER #### [facility] [address] [address] [address] Jessie Lomax Protein [Mass/Vol] 7.4 g/dL Normal 6.4-8.2 [facility] Comment on above: Performed By: #### T TYLER #### [facility] [address] [place] [address] Dr. Jessie Lomax Sodium [Moles/Vol] 138 mmol/L Normal 136-145 [facility] Comment on above: Performed By: #### T TYLER #### [facility] [address] [address] [address] Jessie Lomax Urea nitrogen [Mass/Vol] 23.0 mg/dL Critically high 7.0-18.0 [facility] Comment on above: Performed By: #### T TYLER #### [facility] [address] [place] [address] Dr. Jessie Lomax Urea nitrogen/Creatinine [Mass ratio] 20.2 mg/mg Normal [facility] Comment on above: Performed By: #### T TYLER #### [facility] [address] [place] [address] Dr. Jessie Lomax PROTIMEon 06-30-2022 INR Coag (PPP) [Relative time] 0.93 {INR} Normal [facility] Comment on above: Performed By: #### A CETON #### [facility] [address] [place] [address] Dr. Jessie Lomax INR GUIDELINES SEE BELOW Normal [facility] Comment on above: Result Comment: VANESSA RED INR: 2.0 - 3.0 CONDITIONS NOT LISTED BELOW 2.5 - 3.5 FOR PROSTHETIC HEART VALVE REPLACEMENT 2.5 - 3.5 RECURRENT THROMBOSIS Performed By: #### A CETON #### [facility] [address] [place] [address] Dr. Jessie Lomax PT Coag (PPP) [Time] 10.1 s Normal 9.0-11.6 [facility] Comment on above: Performed By: #### A CETON #### [facility] [address] [place] [address] Dr. Jessie Lomax PTTon 06-30-2022 aPTT Coag (Bld) [Time] 25.1 s Normal 22.3-36.2 [facility] Comment on above: Performed By: #### B [id number] #### [facility] [address] [place] [address] Dr. Jessie Lomax TROPONIN, HIGH SENSITIVITYon 06-30-2022 HSTROP 11.4 pg/mL Normal 4.0-76.1 [facility] Comment on above: Result Comment: CUT- OFF POINTS HAVE BEEN ESTABLISHED BASED ON THE FOURTH UNIVERSAL DEFINITIONS OF MYOCARDIAL INFARCTION. THE UPPER REFERENCE LIMIT (URL) OF TROPONIN, DEFINED THE 99TH PERCENTILE OF cTnI DISTRIBUTION IN A REFERENCE POPULATION, HAS BEEN CONFIRMED THE DECISION THRESHOLD FOR [place] DIAGNOSIS. Performed By: #### T TYLER #### [facility] [address] [place] [address] Dr. Jessie Lomax XR CHEST 1 Von 06-30-2022 XR CHEST 1 V EXAMINATION: XR CHEST 1 V HISTORY: Shortness of breath COMPARISON: Chest x-ray 05/02/2022 TECHNIQUE: Portable chest FINDINGS: The lung parenchyma is free of consolidation or infiltrate. No pneumothorax or pleural effusion. The cardiac, mediastinal and hilar contours are normal. The visualized osseous structures exhibit no gross abnormality. IMPRESSION: No acute cardiopulmonary abnormality. Electronically authenticated by: SOLA SHELL Date: 2022-06-30 21:00 Normal [facility] BNPon 05-02-2022 Natriuretic peptide B (Bld) [Mass/Vol] 90.0 pg/mL Normal <=900.0 [facility] Comment on above: Performed By: #### B [id number] #### [facility] [address] [place] [address] Dr. Jessie Lomax CARDIAC JUSTINE ADMITon 022 CK [Catalytic activity/Vol] 84 U/L Normal 39-308 [facility] Comment on above: Performed By: #### B [id number] #### [facility] [address] [place] [address] Dr. Jessie Lomax CK.MB [Mass/Vol] 3.74 ng/mL Critically high <=3.60 [facility] Comment on above: Performed By: #### B [id number] #### [facility] [address] [place] [address] Dr. Jessie Lomax HSTROP 14.1 pg/mL Normal 4.0-76.1 [facility] Comment on above: Result Comment: CUT- OFF POINTS HAVE BEEN ESTABLISHED BASED ON THE FOURTH UNIVERSAL DEFINITIONS OF MYOCARDIAL INFARCTION. THE UPPER REFERENCE LIMIT (URL) OF TROPONIN, DEFINED THE 99TH PERCENTILE OF cTnI DISTRIBUTION IN A REFERENCE POPULATION, HAS BEEN CONFIRMED THE DECISION THRESHOLD FOR [place] DIAGNOSIS. Performed By: #### B [id number] #### [facility] [address] [place] [address] Dr. Jessie Lomax HERLINDA 55 ng/mL Normal 16-96 [facility] Comment on above: Performed By: #### B [id number] #### [facility] [address] [place] [address] Dr. Jessie Lomax CBC AUTO DIFFon 05-02-2022 BASO # 0.1 103/ul Normal 0.0-0.1 [facility] Comment on above: Performed By: #### C BC #### [facility] [address] [place] [address] Dr. Jessie Lomax Basophils/100 WBC (Bld) 0.5 % Normal 0.2-2.0 [facility] Comment on above: Performed By: #### C BC #### [facility] [address] [place] [address] Dr. Jessie Lomax EO # 0.0 103/ul Normal 0.0-0.7 [facility] Comment on above: Performed By: #### C BC #### [facility] [address] [place] [address] Dr. Jessie Lomax Eosinophils/100 WBC (Bld) 0.3 % Critically low 0.9-7.0 [facility] Comment on above: Performed By: #### C BC #### [facility] [address] [place] [address] Dr. Jessie Lomax Erythrocyte distribution width (RBC) [Ratio] 13.6 % Normal 11.0-15.0 [facility] Comment on above: Performed By: #### C BC #### [facility] [address] [place] [address] Dr. Jessie Lomax Hematocrit (Bld) [Volume fraction] 46.1 % Normal 42.0-54.0 [facility] Comment on above: Performed By: #### C BC #### [facility] [address] [place] [address] Dr. Jessie Lomax Hemoglobin (Bld) [Mass/Vol] 15.6 g/dL Normal 14.0-18.0 [facility] Comment on above: Performed By: #### C BC #### [facility] [address] [place] [address] Dr. Jessie Lomax IG # 0.07 10e3/ul Critically high 0.00-0.03 [facility] Comment on above: Performed By: #### C BC #### [facility] [address] [place] [address] Dr. Jessie Lomax IG % 0.6 % Critically high 0.0-0.5 [facility] Comment on above: Performed By: #### C BC #### [facility] [address] [place] [address] Dr. Jessie Lomax LYMPH # 2.0 103/ul Normal 1.2-3.8 [facility] Comment on above: Performed By: #### C BC #### [facility] [address] [place] [address] Dr. Jessie Lomax Lymphocytes/100 WBC (Bld) 16.0 % Critically low 20.5-60.0 [facility] Comment on above: Performed By: #### C BC #### [facility] [address] [place] [address] Dr. Jessie Lomax MANUAL DIFF REQ NO Normal [facility] Comment on above: Performed By: #### C BC #### [facility] [address] [place] [address] Dr. Jessie Lomax MCH (RBC) [Entitic mass] 31.7 pg Normal 25.9-34.0 [facility] Comment on above: Performed By: #### C BC #### [facility] [address] [place] [address] Dr. Jessie Lomax MCHC (RBC) [Mass/Vol] 33.8 g/dL Normal 29.9-35.2 [facility] Comment on above: Performed By: #### C BC #### [facility] [address] [address] [address] Jessie Lomax MCV (RBC) [Entitic vol] 93.7 fL Normal 80.0-94.0 [facility] Comment on above: Performed By: #### C BC #### [facility] [address] [address] [address] Jessie Lomax MONO # 0.8 103/ul Normal 0.3-0.8 [facility] Comment on above: Performed By: #### C BC #### [facility] [address] [place] [address] Dr. Jessie Lomax Monocytes/100 WBC (Bld) 6.2 % Normal 1.7-12.0 [facility] Comment on above: Performed By: #### C BC #### [facility] [address] [place] [address] Dr. Jessie Lomax NEUT # 9.5 103/ul Critically high 1.4-6.5 [facility] [place] Comment on above: Performed By: #### C BC #### [facility] [address] [place] [address] Dr. Jessie Lomax Neutrophils/100 WBC (Bld) 76.4 % Critically high 43.0-75.0 [facility] Comment on above: Performed By: #### C BC #### [facility] [address] [place] [place] [address] Dr. Jessie Lomax Platelet mean volume (Bld) [Entitic vol] 9.6 fL Normal 9.5-13.5 [facility] Comment on above: Performed By: #### C BC #### [facility] [address] [place] [address] Dr. Jessie Lomax PLT 338 103/ul Normal 150-450 [facility] Comment on above: Performed By: #### C BC #### [facility] [address] [place] [address] Dr. Jessie Lomax RBC 4.92 106/ul Normal 4.70-6.10 [facility] Comment on above: Performed By: #### C BC #### [facility] [address] [place] [address] Dr. Jessie Lomax WBC 12.4 103/ul Critically high 4.0-11.0 [facility] Comment on above: Performed By: #### C BC #### [facility] [address] [place] [address] Dr. Jessie Lomax [facility] SARS-CoV-2 (COVID-19) RNA YOLANDA+probe Ql (Unsp spec) Not detected Normal NOT DETECTED [facility] Comment on above: Result Comment: When diagnostic [...] for this test is supported by the 911 Operator of Health and Human Service's declaration that [...] used). Performed By: #### C MP #### [facility] [address] [place] [address] Dr. Jessie Lomax PROF 14(COMP METB)on 022 Albumin [Mass/Vol] 3.5 g/dL Normal 3.4-5.0 [facility] Comment on above: Performed By: #### B [id number] #### [facility] [address] [place] [address] Dr. Jessie Lomax Albumin/Globulin [Mass ratio] 1.0 {ratio} Normal [facility] Comment on above: Performed By: #### B [id number] #### [facility] [address] [address] [address] Jessie Lomax ALP [Catalytic activity/Vol] 104 U/L Normal 46-116 [facility] Comment on above: Performed By: #### B [id number] #### [facility] [address] [address] [address] Jessie Lomax ALT [Catalytic activity/Vol] 21 U/L Normal 16-63 [facility] Comment on above: Performed By: #### B [id number] #### [facility] [address] [address] [address] Jessie Lomax Anion gap [Moles/Vol] 11.7 mmol/L Normal [facility] Comment on above: Performed By: #### B [id number] #### [facility] [address] [place] [address] Dr. Jessie Lomax AST [Catalytic activity/Vol] U/L Critically low 15-37 [facility] Comment on above: Performed By: #### B [id number] #### [facility] [address] [place] [address] Dr. Jessie Lomax Bilirubin [Mass/Vol] 0.2 mg/dL Normal 0.2-1.0 [facility] Comment on above: Performed By: #### B [id number] #### [facility] [address] [place] [address] Dr. Jessie Lomax Calcium [Mass/Vol] 8.9 mg/dL Normal 8.5-10.1 [facility] Comment on above: Performed By: #### B [id number] #### [facility] [address] [address] [address] Jessie Lomax Chloride [Moles/Vol] 99 mmol/L Normal 98-107 [facility] Comment on above: Performed By: #### B [id number] #### [facility] [address] [address] [address] Jessie Lomax CO2 [Moles/Vol] 30.4 mmol/L Normal 21.0-32.0 [facility] Comment on above: Performed By: #### B [id number] #### [facility] [address] [address] [address] Jessie Lomax Creatinine [Mass/Vol] 1.29 mg/dL Normal 0.70-1.30 [facility] Comment on above: Performed By: #### B [id number] #### [facility] [address] [address] [address] Jessie Lomax EGFR-AF BELGIAN >60 Normal >=60 [facility] Comment on above: Performed By: #### B [id number] #### [facility] [address] [address] [address] Jessie Lomax EGFR-NON AF BELGIAN 56 mL/min/1.73m2 Critically low >=60 [facility] Comment on above: Performed By: #### B [id number] #### [facility] [address] [address] [address] Jessie Lomax Globulin (S) [Mass/Vol] 3.4 g/dL Normal [facility] Comment on above: Performed By: #### B [id number] #### [facility] [address] [address] [address] Jessie Lomax Glucose [Mass/Vol] 310 mg/dL Critically high 74-106 [facility] Comment on above: Performed By: #### B [id number] #### [facility] [address] [address] [address] Jessie Lomax Potassium [Moles/Vol] 4.1 mmol/L Normal 3.5-5.1 [facility] Comment on above: Performed By: #### B [id number] #### [facility] [address] [address] [address] Jessie Lomax Protein [Mass/Vol] 6.9 g/dL Normal 6.4-8.2 [facility] Comment on above: Performed By: #### B [id number] #### [facility] [address] [address] [address] Jessie Lomax Sodium [Moles/Vol] 137 mmol/L Normal 136-145 [facility] Comment on above: Performed By: #### B [id number] #### [facility] [address] [place] [address] Dr. Jessie Lomax Urea nitrogen [Mass/Vol] 16.0 mg/dL Normal 7.0-18.0 [facility] Comment on above: Performed By: #### B [id number] #### [facility] [address] [place] [address] Dr. Jessie Lomax Urea nitrogen/Creatinine [Mass ratio] 12.4 mg/mg Normal [facility] Comment on above: Performed By: #### B [id number] #### [facility] [address] [place] [address] Dr. Jessie Lomax PROTIMEon 05-02-2022 INR Coag (PPP) [Relative time] {INR} Normal [facility] Comment on above: Performed By: #### T TYLER #### [facility] [address] [place] [address] Dr. Jessie Lomax INR GUIDELINES SEE BELOW Normal [facility] Comment on above: Result Comment: VANESSA RED INR: 2.0 - 3.0 CONDITIONS NOT LISTED BELOW 2.5 - 3.5 FOR PROSTHETIC HEART VALVE REPLACEMENT 2.5 - 3.5 RECURRENT THROMBOSIS Performed By: #### T TYLER #### [facility] [address] [place] [address] Dr. Jessie Lomax PT Coag (PPP) [Time] 9.8 s Normal 9.0-11.6 [facility] Comment on above: Performed By: #### T TYLER #### [facility] [address] [place] [address] Dr. Jessie Lomax PTTon 05-02-2022 aPTT Coag (Bld) [Time] 23.0 s Normal 22.3-36.2 [facility] Comment on above: Performed By: #### T TYLER #### [facility] [address] [place] [address] Dr. Jessie Lomax XR CHEST 1 Von [...] GERARD ESPANA Date: 2022-05-02 08:55 Normal [facility]17 SARS-CoV-2 (COVID-19) RNA YOLANDA+probe Ql (Unsp spec) Not detected Normal NOT DETECTED [facility] Comment on above: Result Comment: This test is not yet approved or cleared by the [place] FDA. When there are no FDA-approved or cleared tests available, and other criteria are met, FDA can make tests available under an emergency access mechanism called an Emergency Use Authorization (EUA). The EUA for this test is supported by the 911 Operator of Health and Human Service's (HHS's) declaration [...] SARS-CoV-2. Performed By: #### A CETON #### [facility] [address] [address] [address] Jessie Lomax CBC AUTO DIFFon 03-19-2022 BASO # 0.0 103/ul Normal 0.0-0.1 [facility] Comment on above: Performed By: #### C BC #### [facility] [address] [address] [address] Jessie Lomax Basophils/100 WBC (Bld) 0.4 % Normal 0.2-2.0 [facility] Comment on above: Performed By: #### C BC #### [facility] [address] [address] [address] Jessie Lomax EO # 0.0 103/ul Normal 0.0-0.7 [facility] Comment on above: Performed By: #### C BC #### [facility] [address] [place] [address] Dr. Jessie Lomax Eosinophils/100 WBC (Bld) 0.1 % Critically low 0.9-7.0 [facility] Comment on above: Performed By: #### C BC #### [facility] [address] [place] [address] Dr. Jessie Lomax Erythrocyte distribution width (RBC) [Ratio] 13.6 % Normal 11.0-15.0 [facility] Comment on above: Performed By: #### C BC #### [facility] [address] [place] [address] Dr. Jessie Lomax Hematocrit (Bld) [Volume fraction] 47.4 % Normal 42.0-54.0 [facility] Comment on above: Performed By: #### C BC #### [facility] [address] [place] [address] Dr. Jessie Lomax Hemoglobin (Bld) [Mass/Vol] 16.0 g/dL Normal 14.0-18.0 [facility] Comment on above: Performed By: #### C BC #### [facility] [address] [place] [address] Dr. Jessie Lomax IG # 0.03 10e3/ul Normal 0.00-0.03 [facility] Comment on above: Performed By: #### C BC #### [facility] [address] [place] [address] Dr. Jessie Lomax IG % 0.3 % Normal 0.0-0.5 [facility] Comment on above: Performed By: #### C BC #### [facility] [address] [place] [address] Dr. Jessie Lomax LYMPH # 0.5 103/ul Critically low 1.2-3.8 [facility] [place] Comment on above: Performed By: #### C BC #### [facility] [address] [place] [address] Dr. Jessie Lomax Lymphocytes/100 WBC (Bld) 5.4 % Critically low 20.5-60.0 [facility] Comment on above: Performed By: #### C BC #### [facility] [address] [place] [address] Dr. Jessie Lomax MANUAL DIFF REQ NO Normal [facility] [place] Comment on above: Performed By: #### C BC #### [facility] [address] [place] [address] Dr. Jessie Lomax MCH (RBC) [Entitic mass] 31.7 pg Normal 25.9-34.0 [facility] Comment on above: Performed By: #### C BC #### [facility] [address] [place] [address] Dr. Jessie Lomax MCHC (RBC) [Mass/Vol] 33.8 g/dL Normal 29.9-35.2 [facility] Comment on above: Performed By: #### C BC #### [facility] [address] [place] [address] Dr. Jessie Lomax MCV (RBC) [Entitic vol] 93.9 fL Normal 80.0-94.0 [facility] Comment on above: Performed By: #### C BC #### [facility] [address] [place] [address] Dr. Jessie Lomax MONO # 0.2 103/ul Critically low 0.3-0.8 [facility] [place] Comment on above: Performed By: #### C BC #### [facility] [address] [place] [address] Dr. Jessie Lomax Monocytes/100 WBC (Bld) 2.4 % Normal 1.7-12.0 [facility] Comment on above: Performed By: #### C BC #### [facility] [address] [place] [address] Dr. Jessie Lomax NEUT # 9.1 103/ul Critically high 1.4-6.5 [facility] Comment on above: Performed By: #### C BC #### [facility] [address] [place] [address] Dr. Jessie Lomax Neutrophils/100 WBC (Bld) 91.4 % Critically high 43.0-75.0 [facility] Comment on above: Performed By: #### C BC #### [facility] [address] [address] [address] Jessie Lomax Platelet mean volume (Bld) [Entitic vol] 9.5 fL Normal 9.5-13.5 [facility] Comment on above: Performed By: #### C BC #### [facility] [address] [place] [address] Dr. Jessie Lomax PLT 303 103/ul Normal 150-450 [facility] Comment on above: Performed By: #### C BC #### [facility] [address] [address] [address] Jessie Lomax RBC 5.05 106/ul Normal 4.70-6.10 [facility] Comment on above: Performed By: #### C BC #### [facility] [address] [place] [address] Dr. Jessie Lomax WBC 10.0 103/ul Normal 4.0-11.0 [facility] Comment on above: Performed By: #### C BC #### [facility] [address] [place] [address] Dr. Jessie Lomax Covid-19 PCR ([facility])on SARS-CoV-2 (COVID-19) RNA YOLANDA+probe Ql (Unsp spec) Not detected Normal NOT DETECTED [facility] Comment on above: Result Comment: When diagnostic [...] for this test is supported by the [place] of Health and Human Service's declaration that [...] used). Performed By: #### B [id number] #### [facility] [address] [place] [address] Dr. Jessie Lomax PROF 14(COMP METB)on 022 Albumin [Mass/Vol] 3.9 g/dL Normal 3.4-5.0 [facility] Comment on above: Performed By: #### C BC #### [facility] [address] [place] [address] Dr. Jessie Lomax Albumin/Globulin [Mass ratio] 1.1 {ratio} Normal [facility] Comment on above: Performed By: #### C BC #### [facility] [address] [place] [address] Dr. Jessie Lomax ALP [Catalytic activity/Vol] 81 U/L Normal 46-116 [facility] Comment on above: Performed By: #### C BC #### [facility] [address] [place] [address] Dr. Jessie Lomax ALT [Catalytic activity/Vol] 26 U/L Normal 16-63 [facility] Comment on above: Performed By: #### C BC #### [facility] [address] [place] [address] Dr. Jessie Lomax Anion gap [Moles/Vol] 14.5 mmol/L Normal [facility] Comment on above: Performed By: #### C BC #### [facility] [address] [place] [address] Dr. Jessie Lomax AST [Catalytic activity/Vol] 7 U/L Critically low 15-37 [facility] Comment on above: Performed By: #### C BC #### [facility] [address] [place] [address] Dr. Jessie Lomax Bilirubin [Mass/Vol] 0.3 mg/dL Normal 0.2-1.0 [facility] Comment on above: Performed By: #### C BC #### [facility] [address] [place] [address] Dr. Jessie Lomax Calcium [Mass/Vol] 9.2 mg/dL Normal 8.5-10.1 [facility] Comment on above: Performed By: #### C BC #### [facility] [address] [address] [address] Jessie Lomax Chloride [Moles/Vol] 101 mmol/L Normal 98-107 [facility] Comment on above: Performed By: #### C BC #### [facility] [address] [address] [address] Jessie Lomax CO2 [Moles/Vol] 26.1 mmol/L Normal 21.0-32.0 [facility] Comment on above: Performed By: #### C BC #### [facility] [address] [place] [address] Dr. Jessie Lomax Creatinine [Mass/Vol] 1.50 mg/dL Critically high 0.70-1.30 [facility] Comment on above: Performed By: #### C BC #### [facility] [address] [place] [address] Dr. Jessie Lomax EGFR-AF BELGIAN 57 mL/min/1.73m2 Critically low >=60 [facility] Comment on above: Performed By: #### C BC #### [facility] [address] [place] [address] Dr. Jessie Lomax EGFR-NON AF BELGIAN 47 mL/min/1.73m2 Critically low >=60 [facility] Comment on above: Performed By: #### C BC #### [facility] [address] [place] [address] Dr. Jessie Lomax Globulin (S) [Mass/Vol] 3.4 g/dL Normal [facility] Comment on above: Performed By: #### C BC #### [facility] [address] [address] [address] Jessie Lomax Glucose [Mass/Vol] 264 mg/dL Critically high 74-106 [facility] Comment on above: Performed By: #### C BC #### [facility] [address] [place] [address] Dr. Jessie Lomax Potassium [Moles/Vol] 4.6 mmol/L Normal 3.5-5.1 [facility] Comment on above: Performed By: #### C BC #### [facility] [address] [address] [address] Jessie Lomax Protein [Mass/Vol] 7.3 g/dL Normal 6.4-8.2 [facility] Comment on above: Performed By: #### C BC #### [facility] [address] [address] [address] Jessie Lomax Sodium [Moles/Vol] 137 mmol/L Normal 136-145 [facility] Comment on above: Performed By: #### C BC #### [facility] [address] [address] [address] Jessie Lomax Urea nitrogen [Mass/Vol] 20.0 mg/dL Critically high 7.0-18.0 [facility] Comment on above: Performed By: #### C BC #### [facility] [address] [address] [address] Jessie Lomax Urea nitrogen/Creatinine [Mass ratio] 13.3 mg/mg Normal [facility] Comment on above: Performed By: #### C BC #### [facility] [id number] Jessie Lomax XR CHEST 1 Von [...] GERARD WOLFF Date: 2022-03-19 00:11 Normal [facility] Cardiovascular Lab Reporton 12-29-2018 Cardiovascular Lab Report [facility] Patient Name: [place] [facility] MR #: [id number] Physician: Calli Loyola, Department of M.D. Medicine Service Date: 12/28/2018 Division of Birthdate: 1960 Cardiology Room #: Adult Cardiovascular Services [address] [id number] [id number] Cardiovascular Laboratory Report FINAL IMPRESSIONS: 1. Nonobstructive [...] 6. Follow up with me in [facility] in the next 2-4 weeks. 7. Follow up with Dr. Cowart as scheduled. PROCEDURES: Ultrasound-guided access to the right common femoral vein and artery, right heart catheterization, bilateral selective coronary angiography, left heart catheterization, left ventriculography, limited femoral angiogram, placement of a 6-Prydeinig MynxGrip closure device. METHODS: After risks, benefits, and alternatives were explained, written informed consent was obtained. The patient was prepped and draped in usual sterile fashion over the right groin. Using 1% lidocaine solution, local infiltration anesthesia was achieved. Using a modified Seldinger technique and under ultrasound guidance access to the right common femoral vein and artery was obtained and 6-Prydeinig 11 cm sheath placed in each. Limited [...] the procedure. All catheters were removed. A 6-Prydeinig MynxGrip closure device was deployed per protocol [...] are outlined above. Electronically Signed by: Calli Loyola M.D. 12/29/2018 04:29 P Calli Loyola M.D. Date Dict: 12/28/2018/09:28 Marek/Calli Loyola M.D. Date Trans: 12/29/2018 04:14 Marek/rosetta [id number] cc: Calli Loyola M.D. [address] [place] [address] BRYON COWART, [facility] Vital Signs Date Time Vital Sign Value Performing Clinician Facility 11-11-2023 14:15-0400 Body height 175.26 cm [facility] 11-11-2023 14:15-0400 Body mass index (BMI) [Ratio] 37 kg/m2 [facility] 11-11-2023 14:15-0400 Body weight 113.85 kg [facility] 11-11-2023 14:15-0400 Diastolic blood pressure 102 mm[Hg] [facility] 11-11-2023 14:15-0400 Heart rate 96 /min [facility] 11-11-2023 14:15-0400 SaO2% (BldA) [Mass fraction] 92 % [facility] 11-11-2023 14:15-0400 Systolic blood pressure 149 mm[Hg] [facility] 09-15-2023 11:02-0500 Body height 175.26 cm [facility] 09-15-2023 11:02-0500 Body mass index (BMI) [Ratio] 38.2 kg/m2 [facility] 09-15-2023 11:02-0500 Body weight 117.59 kg [facility] 09-15-2023 11:02-0500 Diastolic blood pressure 87 mm[Hg] [facility] 09-15-2023 11:02-0500 Heart rate 113 /min [facility] 09-15-2023 11:02-0500 SaO2% (BldA) [Mass fraction] 97 % [facility] 09-15-2023 11:02-0500 Systolic blood pressure 158 mm[Hg] [facility] 06-27-2023 11:00-0500 Body height 175.26 cm Bryon Cowart Other [facility] Other 06-27-2023 11:00-0500 Body mass index (BMI) [Ratio] 37.8 kg/m2 Bryon Cowart Other [facility] Other 06-27-2023 11:00-0500 Body weight 116.12 kg Bryon Cowart Other [facility] Other 06-27-2023 11:00-0500 Diastolic blood pressure 88 mm[Hg] Bryon Cowart Other [facility] Other 06-27-2023 11:00-0500 SaO2% (BldA) [Mass fraction] 92 % Bryon Cowart Other [facility] Other 06-27-2023 11:00-0500 Systolic blood pressure 134 mm[Hg] Bryon Cowart Other [facility] Other 03-03-2023 15:00-0400 Body height 175.26 cm Bryon Cowart Other [facility] Other 03-03-2023 15:00-0400 Body mass index (BMI) [Ratio] 38.69 kg/m2 Bryon Cowart Other [facility] Other 03-03-2023 15:00-0400 Body weight 118.84 kg Bryon Cowart Other [facility] Other 03-03-2023 15:00-0400 Diastolic blood pressure 82 mm[Hg] Bryon Cowart Other [facility] Other 03-03-2023 15:00-0400 Systolic blood pressure 157 mm[Hg] Bryon Cowart Other [facility] Other 12-30-2022 14:30-0400 Body height 175.26 cm Bryon Cowart Other [facility] Other 12-30-2022 14:30-0400 Body mass index (BMI) [Ratio] 39.57 kg/m2 Bryon Cowart Other [facility] Other 12-30-2022 14:30-0400 Body weight 121.56 kg Bryon Cowart Other [facility] Other 12-30-2022 14:30-0400 Diastolic blood pressure 85 mm[Hg] Bryon Cowart Other [facility] Other 12-30-2022 14:30-0400 SaO2% (BldA) [Mass fraction] 95 % Bryon Cowart Other [facility] Other 12-30-2022 14:30-0400 Systolic blood pressure 147 mm[Hg] Bryon Cowart Other [facility] Other 09-02-2022 14:00-0500 Body height 175.26 cm Bryon Cowart Other [facility] Other 09-02-2022 14:00-0500 Body mass index (BMI) [Ratio] 38.69 kg/m2 Bryon Cowart Other [facility] Other 09-02-2022 14:00-0500 Body weight 118.84 kg Bryon Cowart Other [facility] Other 09-02-2022 14:00-0500 Diastolic blood pressure 84 mm[Hg] Bryon Cowart Other [facility] Other 09-02-2022 14:00-0500 Respiratory rate 60 /min Bryon Cowart Other [facility] Other 09-02-2022 14:00-0500 SaO2% (BldA) [Mass fraction] 91 % Bryon Cowart Other [facility] Other 09-02-2022 14:00-0500 Systolic blood pressure 142 mm[Hg] Bryon Coawrt Other [facility] Other Encounters Encounter Date Encounter Type Care Provider Facility Start: 05-08-2024 ambulatory SARAH A INNA Facili ty:[facility] Start: 04-24-2024 End: 04-24-2024 ambulatory MINIBUS DRIVER SARAH A INNA Facility:[facility] Start: 01-24-2024 End: 01-24-2024 Lab Drop off SARAH A INNA [facility] Start: 01-24-2024 End: 01-24-2024 ambulatory MINIBUS DRIVER SARAH A INNA Facility:[facility] Start: 01-18-2024 End: 01-18-2024 ambulatory MINIBUS DRIVER SARAH A INNA Facility:[facility] Start: 12-28-2023 End: 12-28-2023 ambulatory MINIBUS DRIVER SARAH A INNA Facility:[facility] Start: 12-26-2023 ambulatory MINIBUS DRIVER SARAH INNA Faci lity:[facility] Start: 11-11-2023 End: 11-11-2023 ambulatory [facility] Work Phone: Start: 11-11-2023 End: 11-11-2023 Patient encounter procedure [facility] Work Phone: Start: 10-03-2023 Non-patient / Non-visit [facility] Physician [email or web address] Work Phone: Start: 09-15-2023 End: 09-15-2023 Patient encounter procedure [facility] Work Phone: Start: 08-26-2023 End: 08-26-2023 ambulatory Bryon Cowart Other [facility] Other Start: 08-26-2023 Telephone encounter Bryon Cowart [facility] Start: 08-04-2023 End: 08-04-2023 ambulatory Bryon Cowart Other [facility] Other Start: 08-04-2023 Telephone encounter Bryon Cowart [facility] Start: 08-03-2023 End: 08-03-2023 ambulatory Bryon Cowart Other [employer] Other Start: 08-03-2023 Telephone encounter Bryon Cowart [facility] Start: 07-19-2023 End: 07-19-2023 ambulatory Bryon Cowart Other [facility] Other Start: 07-19-2023 Telephone encounter Bryon Cowart [facility] Start: 07-12-2023 End: 07-12-2023 ambulatory Bryon Cowart Other [facility] Other Start: 07-12-2023 Telephone encounter Bryon Cowart [facility] Start: 07-07-2023 End: 07-07-2023 ambulatory Bryon Cowart Other [facility] Other Start: 07-07-2023 Telephone encounter Bryon Cowart [facility] Start: 07-04-2023 End: 07-04-2023 ambulatory Bryon Cowart Other [facility] Other Start: 07-04-2023 Telephone encounter Bryon Cowart [facility] Start: 06-30-2023 End: 06-30-2023 ambulatory Bryon Cowart Other [facility] Other Start: 06-30-2023 Telephone encounter Bryon Cowart [facility] Start: 06-27-2023 End: 06-27-2023 ambulatory Bryon Cowart Other [facility] Other Start: 06-27-2023 Office outpatient vi sit 25 minutes Bryon Cowart [facility] Start: 06-27-2023 Telephone encounter Bryon Cowart [facility] Start: 06-24-2023 End: 06-24-2023 ambulatory Bryon Cowart Other [facility] Other Start: 06-24-2023 Telephone encounter Bryon Cowart [facility] Start: 06-13-2023 End: 06-13-2023 ambulatory Bryon Cowart Other [facility] Other Start: 06-13-2023 Telephone encounter Bryon Cowart [facility] Start: 06-03-2023 End: 06-03-2023 ambulatory Bryon Cowart Other [facility] Other Start: 06-03-2023 Telephone encounter Bryon Cowart [facility] Start: 05-31-2023 End: 05-31-2023 ambulatory Bryon Cowart Other [facility] Other Start: 05-31-2023 Telephone encounter Bryon Cowart [facility] Start: 05-09-2023 End: 05-09-2023 ambulatory Bryon Cowart Other [facility] Other Start: 05-09-2023 Telephone encounter Bryon Cowart [facility] Start: 04-25-2023 Telephone encounter Capo Meraz RN Pulmonary Medicine Comment on above: Closing Referral Start: 04-13-2023 End: 04-13-2023 ambulatory Bryon Cowart Other [facility] Other Start: 04-13-2023 Telephone encounter Bryon Cowart [facility] Start: 03-14-2023 End: 03-14-2023 ambulatory Bryon Cowart Other [facility] Other Start: 03-14-2023 Telephone encounter Bryon Cowart [facility] Start: 03-11-2023 End: 03-11-2023 ambulatory Bryon Cowart Other [facility] Other Start: 03-11-2023 Telephone encounter Bryon Cowart [facility] Start: 03-10-2023 Telephone encounter Capo Meraz RN Pulmonary Medicine Comment on above: Follow up on Lung Tr ansplant Referral Start: 03-08-2023 End: 03-08-2023 ambulatory Bryon Cowart Other [employer] Other Start: 03-08-2023 Telephone encounter Bryon Cowart [facility] Start: 03-03-2023 End: 03-03-2023 ambulatory Bryon Cowart Other [employer] Other Start: 03-03-2023 Office outpatient vi sit 15 minutes Bryon Cowart [facility] Start: 02-10-2023 End: 02-10-2023 ambulatory Bryon Cowart Other [employer] Other Start: 02-10-2023 Telephone encounter Bryon Cowart [facility] Start: 12-30-2022 End: 12-30-2022 ambulatory Bryon Cowart Other [facility] Other Start: 12-30-2022 Office outpatient vi sit 25 minutes Bryon Cowart [facility] Start: 12-30-2022 Telephone encounter Bryon Cowart [facility] Start: 12-22-2022 End: 12-22-2022 ambulatory Bryon Cowart Other [facility] Other Start: 12-22-2022 Telephone encounter Bryon Cowart [facility] Start: 11-12-2022 End: 11-12-2022 ambulatory Bryon Cowart Other [facility] Other Start: 11-12-2022 Telephone encounter Bryon Cowart [facility] Start: 10-12-2022 End: 10-12-2022 ambulatory Rubén Pina Other [employer] Other Start: 10-12-2022 Telephone encounter Rubén Pina [facility] Start: 10-05-2022 End: 10-05-2022 ambulatory Bryon Cowart Other [employer] Other Start: 10-05-2022 Telephone encounter Bryon Cowart [facility] Start: 10-03-2022 End: 10-04-[address] BRYON COWART Facility:[facility] Start: 09-27-2022 End: 09-27-2022 ambulatory Bryon Cowart Other [facility] Other Start: 09-27-2022 Telephone encounter Bryon Cowart [facility] Start: 09-15-2022 End: 09-15-2022 ambulatory Bryon Cowart Other [employer] Other Start: 09-15-2022 Telephone encounter Bryon Cowart [facility] Start: 09-02-2022 End: 09-02-2022 ambulatory Bryon Coawrt Other [employer] Other Start: 09-02-2022 Office outpatient vi sit 15 minutes Bryon Cowart [facility] Start: 08-29-2022 End: 08-30-[address] EVERETTE MONTAGUE . Facility:[facility] Start: 08-20-2022 End: 08-20-2022 ambulatory Bryon Cowart Other [employer] Other Start: 08-20-2022 Telephone encounter Bryon Cowart [facility] Start: 08-17-2022 End: 08-17-2022 ambulatory SHAIKH Jose BANDA Facility:[facility] Start: 08-17-2022 ambulatory VANDA GONZALEZ . Facility :[facility] Start: 08-10-2022 End: 08-11-2022 ambulatory VANDA GONZALEZ . Facility:[facility] Start: 08-09-2022 End: 08-09-2022 ambulatory Bryon Cowart Other [facility] Other Start: 08-09-2022 Telephone encounter Bryon Cowart [facility] Start: 07-22-2022 End: 07-22-2022 ambulatory Bryon Cowart Other [facility] Other Start: 07-22-2022 Telephone encounter Bryon Cowart [facility] Start: 07-01-2022 End: 07-02-[address] BRYON COWART Facility:[facility] Start: 05-02-2022 End: 05-02-[address] BRYON COWART Facility:[facility] Start: 04-26-2022 End: 04-26-[address] BRYON COWART Facility:[facility] Start: 03-19-2022 End: 03-19-[address] BRYON COWART Facility:[facility] Start: 03-05-[address] BRYON COWART Facil ity:[facility] Start: 01-08-[address] BRYON COWART Facil ity:[facility] Start: 11-11-2021 Telephone encounter Isabella Nogueira MD Work Phone: Pulmonary Medicine Comment on above: Patient Update Start: 11-04-2021 Telephone encounter Molly trinidad APRN.MINIBUS DRIVER Work Phone: Pulmonary Medicine Comment on above: Missed appointments Start: 11-03-2021 Orders Only Molly aguirre THREAT ANALYST.MINIBUS DRIVER Work Phone: Pulmonary Medicine Comment on above: Chronic obstructive pulmonary disease, unspecified COPD type (HCC) (Primary Dx); 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) Start: 12-28-2018 End: 12-29-2018 Patient encounter procedure CALLI LOYOLA Facility:[facility] Procedures Date Procedure Procedure Detail Performing Clinician Cardiac catheter (physical object) SARAH KEITH Comment on above: 2022 Plan of Treatment Date Care Activity Detail Author Start: 01-29-2025 ambulatory Ambulatory Facility: [facility] Start: 03-18-2023 Influenza vaccination [facility] Start: 03-24-2022 Hepatitis B surface antibody level LDL CHOLESTEROL [facility] Start: 03-18-2022 Influenza vaccination INFLUENZ A (Season Ended) [facility] Start: 11-04-2021 End: 01-04-2022 HEPATITIS A ANTIBODY, IGG HEPATITIS A ANTIBODY, IGG Lab Routine Chronic obstructive pulmonary disease, unspecified COPD type (HCC) Lung transplant candidate Expected: 11/04/2021, Expires: 01/04/2022 [facility] Work Phone: Comment on above: Expected: 11/04/2021 , Expires: 01/04/2022 Start: 11-03-2021 End: 11-03-2022 ARTERIAL BLOOD GASES ARTERIAL BLOOD GASES Lab Routine Mnuci-0-ariuovpoycz deficiency (HCC) Expected: 11/03/2021, Expires: 11/03/2022 [facility] Work Phone: Comment on above: Expected: 11/03/2021 , Expires: 11/03/2022 Start: 11-04-2014 PROSTATE CANCER SCREENING DISCUSSION PROSTATE CANCER SCREENING DISCUSSION [facility] Start: 11-04-2009 SHINGRIX VACCINE (1 of 2) SHINGRIX VACCINE (1 of 2) [facility] Start: 11-04-2004 COLOGUARD (FIT-DNA) COLOGUARD (FIT-D NA) [facility] Start: 11-04-2004 Colonoscopy COLONOSCOPY [facility] Start: 11-04-2004 COLORECTAL CANCER SCREENING COLORECTAL CANCER SCREENING [facility] Start: 11-04-[address] COLONOGRAPHY [facility] Start: 11-04-2004 FECAL OCCULT BLOOD FECAL OCCULT BLOO D [facility] Start: 11-04-2004 SIGMOIDOSCOPY SIGMOIDOSCOPY [facility] Start: 11-04-1989 Zoledronic acid therapy ALPHA- 1 ANTITRYPSIN DEFICIENCY SCREENING [facility] Start: 11-04-1978 ADULT PREVNAR-13 ADULT PREVNAR-13 Cl [facility] Start: 11-04-1978 HEPATITIS A (1 of 2 - Risk 2-dose series) HEPATITIS A (1 of 2 - Risk 2-dose series) [facility] Start: 11-04-1978 Hepatitis A Vaccine (1 of 2 - Risk 2-dose series) Hepatitis A Vaccine (1 of 2 - Risk 2-dose series) [facility] Start: 11-04-1978 SHINGRIX VACCINE (1 of 2) SHINGRIX VACCINE (1 of 2) [facility] Start: 11-04-1978 TWO PNEUMOVAX 5 YEAR S APART PRIOR TO AGE 65 (#1) TWO PNEUMOVAX 5 YEARS APART PRIOR TO AGE 65 (#1) [facility] Start: 11-04-1978 Urine microalbumin profile [facility] Start: 11-04-1977 ANNUAL PCP TEAM RESEARCH STUDY ASSISTANT SARAH DISEASE VISIT ANNUAL PCP TEAM CHRONIC DISEASE VISIT [facility] Start: 11-04-1977 BP CONTROLLED (<130/80) BP CONTROLLE D (<130/80) [facility] Start: 11-04-1969 3 comp foot exam completed DIABETIC FOOT EXAM [facility] Start: 11-04-1969 Hepatitis B screening URINE ALBUMIN:CREATININE RATIO [facility] Start: 11-04-1969 Hepatitis C antibody , confirmatory test DILATED RETINAL EXAM [facility] Start: 11-04-1965 PNEUMOCOCCAL (1 - PCV) PNEUMOCOCCAL (1 - PCV) [facility] Start: 11-04-1965 Pneumococcal vaccination Pneum ococcal Vaccine (1 - PCV) [facility] Start: 11-04-1964 COVID-19 VACCINE (1) COVID-19 VACCIN E (1) [facility] Start: 11-04-1964 Hemoglobin A1c/Hemoglobin.total in Blood HBA1C [facility] Start: 11-04-1960 HEPATITIS A (1 of 2 - Risk 2-dose series) HEPATITIS A (1 of 2 - Risk 2-dose series) [facility] Start: 05-06-1960 COVID-19 VACCINE (#1) COVID-19 VACCI NE (#1) [facility] Immunizations Immunization Date Immunization Notes Care Provider Yvette iniguez 05-16-2020 influenza virus vaccine, unspecified formulation Capo Meraz RN [facility] 05-10-2018 influenza virus vaccine, unspecified formulation SARAH KEITH [facility] 05-10-2018 pneumococcal conjuga te vaccine, 13 valent SARAH KEITH [facility] Payers Date Payer Category Payer Medicare [id number] 2018 Unknown [employer] PPO [id number] 2018-Present [phone] [address] [place] [address] PPO [id number] 2018 Unknown [employer]THED BLUE ACCE SS PPO [id number] 2018-Present [phone] [address] [place] [address] PPO [id number] 1959 Unknown [id number] 2.16.840.1.978133.3.579.2. 647 1959 Unknown [id number] 2.16.840.1.425148.3.579.2. 593 1959 Unknown [id number] 2.16.840.1.671573.3.579.2. 593 1959 Unknown [id number] 2.16.840.1.560328.3.579.2. 593 1959 Unknown [id number] 2.16.840.1.485818.3.579.2. 593 1959 Unknown [id number] 2.16.840.1.681254.3.579.2. 593 1959 Unknown [id number] 2.16.840.1.814909.3.579.2. 593 1959 Unknown [id number] 2.16.840.1.167242.3.579.2. 593 1959 Unknown [id number] 2.16.840.1.125525.3.579.2. 593 1959 Unknown [id number] 2.16.840.1.769393.3.579.2. 593 1959 Unknown [id number] 2.16.840.1.310389.3.579.2. 593 1959 Unknown [id number] 2.16.840.1.014447.3.579.2. 593 1959 Unknown [id number] 2.16.840.1.838094.3.579.2. 727 1959 Unknown [id number] 2.16.840.1.255531.3.579.2. 727 1959 Unknown [id number] 2.16.840.1.907845.3.579.2. 727 1959 Unknown [id number] 2.16.840.1.933190.3.579.2. 727 1959 Unknown [id number] 2.16.840.1.979322.3.579.2. 727 1959 Unknown [id number] 2.16.840.1.576924.3.579.2. 727 1959 Unknown [id number] 2.16.840.1.232917.3.579.2. 727 1959 Unknown [id number] 2.16.840.1.337192.3.579.2. 727 1959 Private Health Insurance [id number] .[id number] 1959 Self-pay [id number] 1959 Self-pay 1959 Unknown [id number] 1959 Unknown [id number] Medicare [id number] .[id number] Unknown [id number] Social History Date Type Detail Facility Tobacco smoking stat [facility] Tobacco smoking consumption unknown [facility] Work Phone: Start: 1960 Sex Assigned At Not on file [facility] Start: 10-24-2021 End: 11-03-2021 Exposure to SARS-CoV-2 (event) Not sure [facility] Work Phone: Start: 03-18-2021 Sex Assigned At F [facility] Start: 03-18-2021 History of Social function [facility] National Score (1-10 0), lower number is lower risk Not on file [facility] [place] Comment on above: Patient is a former 2 pack a day smoker. Quit over 15 years ago. Start: 03-17-2021 Gender identity Identifies as male gender (finding) [facility] Start: 03-17-2021 Sexual orientation Heterosexual (fin ding) [facility] Start: 06-27-2023 End: 01-24-2024 Tobacco smoking status NHIS Ex-smoker (finding) [facility] Comment on above: Patient is a former 2 pack a day smoker. Quit over 15 years ago. Start: 1960 Sex Assigned At Male F [facility] Clinical Notes 11-04-2021 to 01-24-2024 Note Date & Type Note Facility 01-24-2024 Note Patient Education BMI for Adults What is BMI? Body mass index (BMI) is a number that is calculated from a person's weight and height. BMI can help estimate how much of a person's weight is composed of fat. BMI does not measure body fat directly. Rather, it is an alternative to procedures that directly measure body fat, which can be difficult and expensive. BMI can help identify people who may be at higher risk for certain medical problems. What are BMI measurements used for? BMI is used as a screening tool to identify possible weight problems. It helps determine whether a person is obese, overweight, a healthy weight, or underweight. BMI is useful for: ? Identifying a weight problem that may be related to a medical condition or may increase the risk for medical problems. ? Promoting changes, such as changes in diet and exercise, to help reach a healthy weight. BMI screening can be repeated to see if these changes are working. How is BMI calculated? BMI involves measuring your weight in relation to your height. Both height and weight are measured, and the BMI is calculated from those numbers. This can be done either in [place] ([place] or metric measurements. Note that charts and online BMI calculators are available to help you find your BMI quickly and easily without having to do these calculations yourself. To calculate your BMI in [place] measurements: 1. Measure your weight in pounds (lb). 2. Multiply the number of pounds by 703. ? For example, for a person who weighs 180 lb, multiply that number by 703, which equals 126,540. 3. Measure your height in inches. Then multiply that number by itself to get a measurement called inches squared. ? For example, for a person who is 70 inches tall, the inches squared measurement is 70 inches x 70 inches, which equals 4,900 inches squared. 4. Divide the total from step 2 (number of lb x 703) by the total from step 3 (inches squared): 126,540 ? 4,900 = 25.8. This is your BMI. To calculate your BMI in metric measurements: 1. Measure your weight in kilograms (kg). 2. Measure your height in meters (m). Then multiply that number by itself to get a measurement called meters squared. ? For example, for a person who is 1.75 m tall, the meters squared measurement is 1.75 m x 1.75 m, which is equal to 3.1 meters squared. 3. Divide the number of kilograms (your weight) by the meters squared number. In this example: 70 ? 3.1 = 22.6. This is your BMI. What do the results mean? BMI charts are used to identify whether you are underweight, normal weight, overweight, or obese. The following guidelines will be used: ? Underweight: BMI less than 18.5. ? Normal weight: BMI between 18.5 and 24.9. ? Overweight: BMI between 25 and 29.9. ? Obese: BMI of 30 or above. Keep these notes in mind: ? Weight includes both fat and muscle, so someone with a muscular build, such as an athlete, may have a BMI that is higher than 24.9. In cases like these, BMI is not an accurate measure of body fat. ? To determine if excess body fat is the cause of a BMI of 25 or higher, further assessments may need to be done by a health care provider. ? BMI is usually interpreted in the same way for men and women. Where to find more information For more information about BMI, including tools to quickly calculate your BMI, go to these websites: ? Centers for Disease Control and Prevention: www.cdc.gov ? [place] Heart Association: www.heart.org ? National Heart, Lung, and Blood [place]: www.nhlbi.nih.gov Summary ? Body mass index (BMI) is a number that is calculated from a person's weight and height. ? BMI may help estimate how much of a person's weight is composed of fat. BMI can help identify those who may be at higher risk for certain medical problems. ? BMI can be measured using [place]ian measurements or metric measurements. ? BMI charts are used to identify whether you are underweight, normal weight, overweight, or obese. This information is not intended to replace advice given to you by your health care provider. Make sure you discuss any questions you have with your health care provider. Document Revised: 03/26/2020 Document Reviewed: 02/01/2020 [email or web address] Patient Education ? 2022 [employer]. Endocrinology Diabetes Mellitus and Standards of Medical Care Living with and managing diabetes (diabetes mellitus) can be complicated. Your diabetes treatment may be managed by a team of health care providers, including: ? A physician who specializes in diabetes (song lyricist). You might also have visits with a nurse practitioner or physician surgical dental assistant. ? Nurses. ? A registered dietitian. ? A certified diabetes care and computer education teacher. ? An child development specialist. ? A pharmacist. ? An eye doctor. ? A microchip specialist (pelt dropper). ? A dental care provider. ? A primary care provider. ? A mental health care provider. How to manage your diabetes You (more content not included)... [facility] 01-24-2024 Note Patient Education Endocrinology Preventing Diabetes Mellitus Complications You can help to prevent or slow down problems that are caused by diabetes (diabetes mellitus). Following your diabetes plan and taking care of yourself can reduce your risk of serious or life-threatening complications. What actions can I take to prevent diabetes complications? Diabetes management ? Follow instructions from your health care providers about managing your diabetes. Your diabetes may be managed by a team of health care providers who can teach you how to care for yourself and can answer questions that you have. ? Educate yourself about your condition so you can make healthy choices about eating and physical activity. ? Know your target range for your blood sugar (glucose), and check your blood glucose level as often as told. Your health care provider will help you decide how often to check your blood glucose level depending on your treatment goals and how well you are meeting them. ? Ask your health care provider if you should take low-dose aspirin daily and what dose is recommended for you. Taking low-dose aspirin daily is recommended to help prevent cardiovascular disease. Controlling your blood pressure and cholesterol Your personal target blood pressure is determined based on: ? Your age. ? Your medicines. ? How long you have had diabetes. ? Any other medical conditions you have. To control your blood pressure: ? Follow instructions from your health care provider about meal planning, exercise, and medicines. ? Make sure your health care provider checks your blood pressure at every medical visit. ? Monitor your blood pressure at home as told by your health care provider. To control your cholesterol: ? Follow instructions from your health care provider about meal planning, exercise, and medicines. ? Have your cholesterol checked at least once a year. ? You may be prescribed medicine to lower cholesterol (statin). If you are not taking a statin, ask your health care provider if you should be. Controlling your cholesterol may: ? Help prevent heart disease and stroke. These are the most common health problems for people with diabetes. ? Improve your blood flow. Medical appointments and vaccines Schedule and keep yearly physical exams and eye exams. Your health care provider will tell you how often you need medical visits depending on your diabetes management plan. Keep all follow-up visits as told. This is important so possible problems can be identified early and complications can be avoided or treated. ? Every visit with your health care provider should include measuring your: ? Weight. ? Blood pressure. ? Blood glucose control. ? Your A1C (hemoglobin A1C) level should be checked: ? At least 2 times a year, if you are meeting your treatment goals. ? 4 times a year, if you are not meeting treatment goals or if your treatment goals have changed. ? Your blood lipids (lipid profile) should be checked yearly. You should also be checked yearly for protein in your urine (urine microalbumin). ? If you have type 1 diabetes, get an eye exam 3?5 years after you are diagnosed, and then once a year after your first exam. ? If you have type 2 diabetes, get an eye exam as soon as you are diagnosed, and then once a year after your first exam. It is also important to keep your vaccines current. It is recommended that you receive: ? A flu (influenza) vaccine every year. ? A pneumonia (pneumococcal) vaccine and a hepatitis B vaccine. If you are age 65 or older, you may get the pneumonia vaccine as a series of two separate shots. Ask your health care provider which other vaccines may be recommended. Lifestyle ? Do not use any products that contain nicotine or tobacco, such as cigarettes, e-cigarettes, and chewing tobacco. If you need help quitting, ask your health care provider. By avoiding nicotine and tobacco: ? You will lower your risk for heart attack, stroke, nerve disease, and kidney disease. ? Your cholesterol and blood pressure may improve. ? Your blood circulation will improve. ? If you drink alcohol: ? Limit how much you use to: ? 0?1 drink a day for women who are not . ? 0?2 drinks a day for men. ? Be aware of how much alcohol is in your drink. In the [place] one drink equals one 12 oz bottle of beer (355 mL), one 5 oz glass of wine (148 mL), or one 11?2 oz glass of hard liquor (44 mL). Taking care of your feet Diabetes may cause you to have poor blood circulation to your legs and feet. Because of this, taking care of your feet is very important. Diabetes can cause: ? The skin on the feet to get thinner, break more easily, and heal more slowly. ? Nerve damage in your legs and feet, which results in decreased feeling. You may not notice minor injuries that could lead to serious problems. To avoid foot (more content not included)... [facility] 01-18-2024 Note Patient Education Mental and Behavioral Health Managing Anxiety, Adult After being diagnosed [...] 7?9 hours of sleep each night. Lifestyle (Inserted Image. Ludivina (more content not included)... [facility] 08-26-2023 Evaluation note Encounter Date Diagnosis Assessment Notes Aug, Anxiety, generalized (ICD-10 - F41.1) [facility] Other 01-18-2024 Evaluation note* Encounter Date Diagnosis Assessment Notes Treatment Notes Treatment Clinical Notes Jul, Acute cervical radiculopathy (ICD-10 - M54.12) [facility] Other 12-26-2023 Evaluation note* Encounter Date Diagnosis Assessment Notes Treatment Notes Treatment Clinical Notes Jun, Acute cervical radiculopathy (ICD-10 - M54.12) [place] [facility] Other 12-11-2023 Evaluation note* Encounter Date Diagnosis [...] F41.1) Chronic problem that is stable presently. [facility] Other 12-08-2023 Evaluation note* Encounter Date Diagnosis Assessment Notes Treatment Notes Treatment Clinical Notes Jun, Anxiety, generalized (ICD-10 - F41.1) [facility] Other 11-17-2023 Evaluation note* Encounter Date Diagnosis Assessment Notes Treatment Notes Treatment Clinical Notes May, Acute cervical radiculopathy (ICD-10 - M54.12) [facility] Other 11-14-2023 Evaluation note* Encounter Date Diagnosis Assessment Notes Treatment Notes Treatment Clinical Notes May, Anxiety, generalized (ICD-10 - F41.1) May, Acute cervical radiculopathy (ICD-10 - M54.12) [facility] Other 10-23-2023 Evaluation note* Encounter Date Diagnosis Assessment Notes Treatment Notes Treatment Clinical Notes Apr, Acute cervical radiculopathy (ICD-10 - M54.12) [facility] Other 10-09-2023 Miscellaneous Notes* Telephone Encounter - [...] any questions. Capo Meraz RN, BSN Pre-Lung Capital Equipment Specialist [facility]* Encounter Date Diagnosis Assessment Notes Treatment Notes Treatment Clinical Notes Mar, Acute cervical radiculopathy (ICD-10 - M54.12) [facility] Other 08-28-2023 Evaluation note* Encounter Date Diagnosis Assessment Notes Treatment Notes Treatment Clinical Notes Feb, Acute cervical radiculopathy (ICD-10 - M54.12) [facility] Other 08-24-2023 Miscellaneous Notes* Telephone Encounter - [...] being full. Capo Meraz RN, BSN Pre-Lung Capital Equipment Specialist documented in [facility]* Encounter Date Diagnosis Assessment Notes Treatment Notes Treatment Clinical Notes Feb, Type 2 diabetes mellitus with hyperglycemia, without long-term current use of insulin (ICD-10 - E11.65) [facility] Other 08-17-2023 Evaluation note* Encounter Date Diagnosis [...] lose weight to improved his severe COPD> [facility] Other 08-17-2023 Evaluation note* Encounter Date Diagnosis [...] lose weight to improve his lung function [facility] Other 07-27-2023 Evaluation note* Encounter Date Diagnosis Assessment Notes Treatment Notes Treatment Clinical Notes Jan, Acute cervical radiculopathy (ICD-10 - M54.12) [facility] Other 06-15-2023 Evaluation note* Encounter Date Diagnosis [...] the zephyr procedure can be started through [facility]. Keep appt in January w his office. [facility] Other 04-28-2023 Evaluation note* Encounter Date Diagnosis Assessment Notes Treatment Notes Treatment Clinical Notes Oct, Acute cervical radiculopathy (ICD-10 - M54.12) [facility] Other 02-16-2023 Evaluation note* Encounter Date Diagnosis Assessment Notes Treatment Notes Treatment Clinical Notes Aug, Chronic obstructive pulmonary disease (ICD-10 - J44.9) Continue present meds including lengthy steroid taper. Continue to followup w Dr. Gonzalez. He has not heard anything lately [facility] Other 04-27-2022 Miscellaneous Notes* Telephone Encounter - [...] options. Maxim[facility] Trans[facility] documented in [facility] encounterMer[facility]04-20-2022 Miscellaneous Notes* Telephone Encounter - Molly Gan APRN.CNP - 11/04/2021 2:27 PM EDT Patient not in attendance for lung transplant appts on 11/04. Attempted to contact patient to reschedule. VM left requesting call back. Molly Gan, MSN, THREAT ANALYST-MINIBUS DRIVER Lung Capital Equipment Specialist [facility] Future Appointments Appointment Date:04/24/2024 01:40:00 PM Scheduled Provider:SARAH KEITH CNP Location:[facility] ([facility] Appointment Type: Open Appointment Date:01/29/2025 01:00:00 PM Scheduled Provider: Location:[facility] ([facility]) Appointment Type:FM Medicare Wellness Subsequent Future Scheduled Tests Laboratory* HCV Antibody RFX to Quant PCR [facility] Diagnosis Chronic obstructive pulmonary disease, unspecified COPD type (HCC)- Primary Lung transplant candidate documented in this encounter [facility] note* Diagnosis 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 documented in this encounter [facility] [employer] Other Evaluation note* Diagnosis Onset Date Resolution Status Skin lesion of right arm [facility] Work Phone: History general Narrative - Reported* Type Description Date Medical History Hypertension Medical History COPD Medical History RANCHO Medical History Centrilobular Emphysema Medical History Obesity Medical History Alpha 1 Antitrypsin Deficieny Medical History Depression Medical History Diabetes Type 2 Medical History GERD Medical History Essential Hypertension. Surgical History heart catheterization, no stent s Hospitalization History SEE ABOVE [facility] Other Hospital course Narrative No data available for this section [facility] No data available for this section [facility] No data available for this section [facility] Summary Purpose Family History No Family History [...] section and content) DATE CREATED AUTHOR 03/17/2019 [facility] DATE CREATED AUTHOR AUTHOR'S ORGANIZ ATION 10/06/2022 [facility] DATE CREATED AUTHOR AUTHOR'S ORGANIZ ATION 04/25/2023 [facility] DATE CREATED AUTHOR AUTHOR'S ORGANIZ ATION 04/26/2024 [facility] DATE CREATED AUTHOR AUTHOR'S ORGANIZ ATION 04/27/2024 [facility] Source Comments (unrecognize d section and content) In the event this informatio n is protected by the Federal Confidentiality of Alcohol and Drug Abuse Patient Records regulations: The Federal rules restrict any use of the information to criminally investigate or prosecute any alcohol or drug abuse patient.[facility] Hospital[facility] the event this information is protected by the Federal Confidentiality of Alcohol and Drug Abuse Patient Records regulations: The Federal rules restrict any use of the information to criminally investigate or prosecute any alcohol or drug abuse patient.[facility] Hospital[facility] the event this information is protected by the Federal Confidentiality of Alcohol and Drug Abuse Patient Records regulations: The Federal rules restrict any use of the information to criminally investigate or prosecute any alcohol or drug abuse patient.[facility] HospitalIn the event this information is protected by the Federal Confidentiality of Alcohol and Drug Abuse Patient Records regulations: The Federal rules restrict any use of the information to criminally investigate or prosecute any alcohol or drug abuse patient.[facility] Hospital[facility] the event this information is protected by the Federal Confidentiality of Alcohol and Drug Abuse Patient Records regulations: The Federal rules restrict any use of the information to criminally investigate or prosecute any alcohol or drug abuse patient.[facility] HospitalIn the event this information is protected by the Federal Confidentiality of Alcohol and Drug Abuse Patient Records regulations: The Federal rules restrict any use of the information to criminally investigate or prosecute any alcohol or drug abuse patient.[facility] Care Teams (unrecognized sec tion and content) [employer] 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 Machinist Relationship Specialty Start Date End Date Bryon Cowart MD [address] [place] [address] PCP - General Family Practice 03/12/20 Vanda Gonzalez, DO Referring Pulmonary and Critical Care Medicine 03/12/20 [employer] Machinist Relationship Specialty Start Date End Date Bryon Cowart MD [address] [place] [address] PCP - General Family Practice 03/12/20 Vanda Gonzalez, DO Referring Pulmonary and Critical Care Medicine 03/12/20 [employer] Milling 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 Relationship Specialty Start Date End Date Bryon Cowart MD [address] [place] [address] PCP - General Family Practice 03/12/20 Vanda Gonzalez, DO Referring Pulmonary and Critical Care Medicine 03/12/20 [employer] Milling Machinist Relationship Specialty Start Date End Date Bryon Cowart MD [address] [facility] [place] [id number] PCP - General Family Medicine 03/12/20 MartVanda FernandoDO [address] [facility] [place] [id number] Referring Pulmonary and Critical Care Medicine 03/12/20 Team Status: Active Member Role Status Dates Bryon Cowart MD Primary Care Provider Active Team Status: Inactive Member Role Status Dates Bryon Cowart MD Primary Care Provide r, Attending Provider Active Start: September 15, 2023 End: September 15, 2023 Team Status: Active Member Role Status Dates Bryon Cowart MD Primary Care Provider Active Start: October 03, 2023 RICK Zamora Attending Provider Active Start : October 03, 2023 Team Status: Inactive Member Role Status Dates Bryon Cowart MD Primary Care Provide r, Attending [...] BE BASED ON THE PRIMARY CLINICAL RECORDS. [employer] provides no warranty or guarantee of the accuracy or completeness of information in this document.
--- NOTE | 2024-04-28 14:40 | ECG_ITS ---
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
--- NOTE | 2024-04-28 14:40 | XR_ITS ---
The [address] [address] Patient Name: RICARDO HYLTON MRN: [id number] date: 1960 Sex: M Assigned Patient Location: ER Current Patient Location: ER Accession/Order Number: [id number] Exam Date: 04/28/2024 15:28 Report Date: 04/28/2024 16:17 At the request of: PRADEEP CALL Procedure: XR chest 1V PORTABLE CHEST X-RAY. INDICATION: Shortness of breath. COMPARISON: 09/26/2023. TECHNIQUE: Single AP portable chest radiograph. FINDINGS: TUBES AND LINES: None. LUNGS: Lungs are clear. PLEURA: No effusions or pneumothorax. HEART AND MEDIASTINUM: Within normal limits for portable technique. OSSEOUS STRUCTURES: No acute abnormality. XR/XR chest 1V IMPRESSION: No acute findings. Electronically authenticated by: MARCK LINN Date: 04/28/2024 16:17
--- NOTE | 2024-04-28 14:45 | ED_ITS ---
HPI HPI - General Adult General Chief complaint: Shortness of Breath/Dyspnea Stated complaint: SOB, PAIN ON RIGHT SIDE OF FACE Time Seen by Provider: 04/28/24 14:39 Source: patient Mode of arrival: Wheelchair History of Present Illness HPI narrative: The patient have a history of COPD with a baseline use of 4 L nasal cannula, over the last few days that the patient have initially some dental pain where he is supposed to be using his dentures, as he thinks the gum is inflamed at this area he also noted that he has been having some more sinus drainage and shortness of breath that been getting worse over the last few days, patient has been using his inhaler regularly as instructed but no improvement He also uses prednisone daily 10 mg and he took this morning The patient also have phlegm production with the cough which is a new complaint No chest pain no abdominal pain no other complaints except for also sinus pain in the right side Related Data Home Medications ?Medication ?Instructions ?Recorded ?Confirmed aripiprazole 10 mg tablet 10 mg PO DAILY 12/20/22 06/20/23 fluticasone fur. 100 mcg-umeclid 1 inh inhalation Q24H 12/20/22 06/20/23 62.5 mcg-vilant 25 mcg inhalat.powder (Trelegy Ellipta) glipizide 10 mg tablet 10 mg PO BID 12/20/22 06/20/23 hydrocodone 5 mg-acetaminophen 325 1 tab PO Q6H PRN pain 12/20/22 06/20/23 mg tablet lisinopril 5 mg tablet 5 mg PO DAILY 12/20/22 06/21/23 metoprolol succinate 25 mg 25 mg PO DAILY 12/20/22 06/20/23 tablet,extended release 24 hr omeprazole 20 mg capsule,delayed 20 mg PO DAILY 12/20/22 06/20/23 release venlafaxine 75 mg capsule,extended 150 mg PO DAILY 12/20/22 06/20/23 release 24 hr alprazolam 0.5 mg tablet 0.5 mg PO BID PRN anxiety 06/20/23 06/20/23 empagliflozin 25 mg tablet 25 mg PO DAILY 06/20/23 06/20/23 (Jardiance) latanoprost 0.005 % eye drops 1 drp ophthalmic (eye) DAILY 06/20/23 06/20/23 semaglutide 0.25 mg or 0.5 mg (2 0.5 mg subcut .weekly 06/20/23 06/20/23 mg/3 mL) subcutaneous pen injector (Ozempic) venlafaxine 150 mg 150 mg PO BID 06/20/23 06/20/23 capsule,extended release 24 hr Previous Rx's ?Medication ?Instructions ?Recorded albuterol sulfate 90 mcg/actuation 2 puff inhalation Q4H PRN 06/22/23 aerosol inhaler shortness of breath or wheezing #8.5 grams azithromycin 500 mg tablet 500 mg PO DAILY 5 days #5 tabs 06/22/23 prednisone 10 mg tablet See Rx Instructions .Route 06/22/23 .COMPLEX #42 tabs theophylline 400 mg 400 mg PO Q12H 30 days #60 tabs 06/22/23 tablet,extended release 24 hr azithromycin 250 mg tablet See Rx Instructions PO .COMPLEX #6 10/16/23 (Zithromax Z-Parveen) tabs methylprednisolone 4 mg tablets in See Rx Instructions .Route 10/16/23 a dose pack (Medrol (Parveen)) .COMPLEX #21 ea Allergies Allergy/AdvReac Type Severity Reaction Status Date / Time metformin Allergy Intermediate Verified 06/20/23 11:16 Opioid HPI Opioid Management Most Recent Opioid Data: Last MAR Pain Assessment 04/28/24 15:18 Review of Systems ROS Status of ROS 10 or more systems reviewed and unremark able except as noted in history and below [facility] Medical History (Updated 04/28/24 @ 15:44 by Radha Hernandez MD) Heartburn ?R12 - Heartburn (ICD-10) Depression ?F32.A - Depression, unspecified (ICD-10) Hypertension ?I10 - Essential (primary) hypertension (ICD-10) Type 2 diabetes mellitus ?E11.9 - Type 2 diabetes mellitus without complications (ICD-10) Family History (Updated 06/20/23 @ 14:19 by Arelis Moreno LPN) Mother Family history of CHF (congestive heart failure) Family history of diabetes mellitus Family history of hypertension Grandmother Family history of CHF (congestive heart failure) Family history of diabetes mellitus Father Family history of COPD (chronic obstructive pulmonary disease) Family history of cancer Social History Smoking status: Former smoker Little interest or pleasure in doing things: not at all Feeling down, depressed, or hopeless: not at all Gender Identity: male Exam Narrative Exam Narrative: Nurses notes and vital signs reviewed and patient is not hypoxic. dental : The patient have no tooth in his upper mandible he have an area of inflamed gum at the site of the tooth #9 General: Well-appearing and in no apparent distress. Skin: Warm, dry, no pallor noted. No rash. Head: Normocephalic, atraumatic. Neck: Supple, non-tender. Eye: Pupils are equal, round and EOMI. No scleral icterus. Ears, Nose, Mouth, and Throat: TM are clear, no nasal mucosal hypertrophy. Oral mucosa is moist, no posterior oropharynx erythema, uvula is mid-line, The patient have tenderness upon palpation of the right maxillary sinus Cardiovascular: Regular Rate and Rhythm without murmur, gallop or rub. Respiratory: No accessory muscle use or respiratory distress. Lungs bilateral expiratory lung wheezes in both lung walls and distant breathing sounds Chest Wall: no tenderness Back: No midline thoracic or lumbar vertebral tenderness. No CVA tenderness Musculoskeletal: normal ROM, no calf or popliteal tenderness, no lower extremity edema/swelling GI: Abdomen is soft, non-distended. Normal bowel sounds. No masses appreciated. No tenderness to palpation. No rebound, guarding, or rigidity noted. Neurological: A&O x4. No cranial nerve dysfunction observed. No truncal ataxia. Moves all extremities. Sensation intact. Psychiatric: Cooperative and interactive. Normal mood and affect. Constitutional Vital Signs, click to edit/add: Last Vital Signs Temp 97.9 F 04/28/24 14:38 Pulse 80 04/28/24 15:28 BP 169/97 H 04/28/24 14:38 Pulse Ox 99 04/28/24 15:28 O2 Del Method Nasal Cannula 04/28/24 15:28 O2 Flow Rate 4 04/28/24 15:28 Course Vital Signs Vital signs: Vital Signs Temperature 97.9 F 04/28/24 14:38 Pulse Rate 84 04/28/24 14:38 Blood Pressure 169/97 H 04/28/24 14:38 Pulse Oximetry 100 04/28/24 14:38 Oxygen Delivery Method Nasal Cannula 04/28/24 14:38 Oxygen Delivery Flow Rate 4 04/28/24 14:38 Temperature 97.9 F 04/28/24 14:38 Pulse Rate 80 04/28/24 15:28 Blood Pressure 169/97 H 04/28/24 14:38 Pulse Oximetry 99 04/28/24 15:28 Oxygen Delivery Method Nasal Cannula 04/28/24 15:28 Oxygen Delivery Flow Rate 4 04/28/24 15:28 Medical Decision Making MDM Narrative Medical decision making narrative: EKG showing sinus rhythm with a heart rate of [address] elevation or depression The patient CBC showed no acute significant pathology Chest x-ray and the prelim reading did not show any pneumonia but the patient presenting to us with a typical picture of COPD exacerbation he had 1 breathing treatment in the ER after which his auscultation was not improved he still tachypneic The will benefit from observation with COPD management in the hospital The patient case was discussed with Dr. Gonzalez and he agreed on admitting the patient for the above-mentioned plan Patient started azithromycin and ceftriaxone for COPD exacerbation Lab Data Labs: Lab Results 04/28/24 04/28/24 Range/Units 14:48 14:56 WBC 12.8 H (4.0-11.0) 10^3/uL RBC 5.44 (4.70-6.10) 10^6/uL Hgb 15.2 (14.0-18.0) g/dL Hct 45.9 (42.0-54.0) % MCV 84.4 (80.0-94.0) fL MCH 27.9 (25.9-34.0) pg MCHC 33.1 (29.9-35.2) g/dL RDW 13.6 (11.0-15.0) % Plt Count 410 (150-450) 10^3/uL MPV 9.5 (9.5-13.5) fL Neut % (Auto) 63.6 (43.0-75.0) % Lymph % (Auto) 24.6 (20.5-60.0) % [place] % (Auto) 8.8 (1.7-12.0) % Eos % (Auto) 1.6 (0.9-7.0) % Baso % (Auto) 0.8 (0.2-2.0) % Neut # (Auto) 8.2 H (1.4-6.5) 10^3/uL Lymph # (Auto) 3.2 (1.2-3.8) 10^3/uL [place] # (Auto) 1.1 H (0.3-0.8) 10^3/uL Eos # (Auto) 0.2 (0.0-0.7) 10^3/uL Baso # (Auto) 0.1 (0.0-0.1) 10^3/uL Abs Immat Gran (auto) 0.08 H (0.00-0.03) 10^3/uL Imm/Tot Granulo (auto) 0.6 H (0.0-0.5) % PT 10.3 (9.0-11.6) sec INR 0.97 Sodium 135 L (136-145) mmol/L Potassium 3.9 (3.5-5.1) mmol/L Chloride 96 L (98-107) mmol/L Carbon Dioxide 29.6 (21.0-32.0) mmol/L Anion Gap 13.3 BUN 12.0 (7.0-18.0) mg/dL Creatinine 1.12 (0.70-1.30) mg/dL Est GFR ( Amer) >60 (>=60 mL/min/1.73m^2) Est GFR (Non-Af Amer) >60 (>=60 mL/min/1.73m^2) BUN/Creatinine Ratio 10.7 Glucose 144 H (74-106) mg/dL Calcium 9.4 (8.5-10.1) mg/dL Total Bilirubin 0.5 (0.2-1.0) mg/dL AST 12 L (15-37) U/L ALT 20 (16-63) U/L Alkaline Phosphatase 123 H (46-116) U/L Troponin I High Sens 8.1 (4.0-76.1) pg/mL Total Protein 7.2 (6.4-8.2) g/dL Albumin 3.5 (3.4-5.0) g/dL Globulin 3.7 g/dL Albumin/Globulin Ratio 0.9 Influenza Type A Ag Negative Influenza Type B Ag Negative SARS-CoV-2 Ag (CV2AG) Negative (NEGATIVE) Discharge Plan Discharge Chief Complaint: Shortness of Breath/Dyspnea Clinical Impression: COPD exacerbation, Pain, dental Prescriptions / Home Meds: No Action alprazolam 0.5 mg tablet 0.5 mg PO BID PRN (Reason: anxiety) Jardiance 25 mg tablet 25 mg PO DAILY latanoprost 0.005 % drops 1 drp OPHTHALMIC (EYE) DAILY Ozempic 0.25 mg or 0.5 mg (2 mg/3 mL) pen injector 0.5 mg SUBCUT .weekly venlafaxine 150 mg capsule,extended release 24hr 150 mg PO BID azithromycin 500 mg tablet 500 mg PO DAILY 5 Days Qty: 5 0RF theophylline 400 mg tablet extended release 24 hr 400 mg PO Q12H 30 Days Qty: 60 0RF albuterol sulfate 90 mcg/actuation HFA aerosol inhaler 2 puff INHALATION Q4H PRN (Reason: shortness of breath or wheezing) Qty: 8.5 0RF prednisone 10 mg tablet See Rx Instructions .ROUTE .COMPLEX Qty: 42 0RF Rx Instructions: 6 tabs daily x 2 days, then 5 tabs daily x 2 days, then 4 tabs daily x 2 days, then 3 tabs daily x 2 days, then 2 tabs daily x 2 days, then 1 tab daily x 2 days, then stop azithromycin [Zithromax Z-Parveen] 250 mg tablet See Rx Instructions .ROUTE .COMPLEX Qty: 6 0RF Rx Instructions: For 250 mg dose pack: take 500 mg today (day 1), then 250 mg for 4 days (days 2-5) methylprednisolone [Medrol (Parveen)] 4 mg tablets,dose pack See Rx Instructions .ROUTE .COMPLEX Qty: 21 0RF Rx Instructions: Taper as directed aripiprazole 10 mg tablet 10 mg PO DAILY Trelegy Ellipta 100-62.5-25 mcg blister with device 1 inh INHALATION Q24H glipizide 10 mg tablet 10 mg PO BID hydrocodone-acetaminophen 5-325 mg tablet 1 tab PO Q6H PRN (Reason: pain) lisinopril 5 mg tablet 5 mg PO DAILY metoprolol succinate 25 mg tablet extended release 24 hr 25 mg PO DAILY omeprazole 20 mg capsule,delayed release(DR/EC) 20 mg PO DAILY venlafaxine 75 mg capsule,extended release 24hr 150 mg PO DAILY Print Language: Icelandic Referrals: Douglas Pacheco DO [Primary Care Provider] - 1 week
[2024-04-28 15:09] LABS: Basophils Absolute Auto 0.1 10^3/uL (0.0-0.1); Basophils Percent Auto 0.8 % (0.2-2.0); Eosinophils Absolute Auto 0.2 10^3/uL (0.0-0.7); Eosinophils Percent Auto 1.6 % (0.9-7.0); Hematocrit 45.9 % (42.0-54.0); Hemoglobin 15.2 g/dL (14.0-18.0); Immature Granulocytes Abs Auto 0.08 10^3/uL (0.00-0.03); Immature Granulocytes Pct Auto 0.6 % (0.0-0.5); Lymphocytes Absolute Auto 3.2 10^3/uL (1.2-3.8); Lymphocytes Percent Auto 24.6 % (20.5-60.0); Mean Corpuscular HGB Conc 33.1 g/dL (29.9-35.2); Mean Corpuscular Hemoglobin 27.9 pg (25.9-34.0); Mean Corpuscular Volume 84.4 fL (80.0-94.0); Mean Platelet Volume 9.5 fL (9.5-13.5); Monocytes Absolute Auto 1.1 10^3/uL (0.3-0.8); Monocytes Percent Auto 8.8 % (1.7-12.0); Neutrophils Absolute Auto 8.2 10^3/uL (1.4-6.5); Neutrophils Percent Auto 63.6 % (43.0-75.0); Platelet Count 410 10^3/uL (150-450); Red Blood Count 5.44 10^6/uL (4.70-6.10); Red Cell Distribution Width 13.6 % (11.0-15.0); White Blood Count 12.8 10^3/uL (4.0-11.0)
[2024-04-28] MEDS: METHYLPREDNISOLONE SOD SUCC PF 125 MG/2 ML VIAL IVP (15:18)
[2024-04-28] MEDS: KETOROLAC TROMETHAMINE 30 MG/ML VIAL 15 MG IVP (15:18)
[2024-04-28] MEDS: IPRATROPIUM/ALBUTEROL SULFATE 3 ML AMPUL.NEB IH ×2 (15:27→20:22)
[2024-04-28 15:30] LABS: INR 0.97; Prothrombin Time 10.3 sec (9.0-11.6)
[2024-04-28 15:39] LABS: Influenza Virus A Antigen Negative; Influenza Virus B Antigen Negative; Internal Control Within Normal Limits; SARS-CoV-2 Ag NEGATIVE (NEGATIVE)
[2024-04-28 15:57] LABS: Alanine Aminotransferase 20 U/L (16-63); Albumin Globulin Ratio 0.9; Albumin Level 3.5 g/dL (3.4-5.0); Alkaline Phosphatase 123 U/L (46-116); Anion Gap 13.3; Aspartate Amino Transferase 12 U/L (15-37); BUN Creatinine Ratio 10.7; Bilirubin Total 0.5 mg/dL (0.2-1.0); Calcium 9.4 mg/dL (8.5-10.1); Carbon Dioxide 29.6 mmol/L (21.0-32.0); Chloride 96 mmol/L (98-107); Estimated GFR (African America >60 (>=60 mL/min/1.73m^2); Estimated GFR (Non-African Ame >60 (>=60 mL/min/1.73m^2); Globulin 3.7 g/dL; Glucose 144 mg/dL (74-106); Potassium 3.9 mmol/L (3.5-5.1); Sodium 135 mmol/L (136-145); Total Protein 7.2 g/dL (6.4-8.2); Troponin I High Sensitivity 8.1 pg/mL (4.0-76.1)
--- NOTE | 2024-04-28 16:04 | P.HP_ITS ---
HPI H&P: HPI History of Present Illness Chief complaint: SOB, PAIN ON RIGHT SIDE OF FACE Narrative: Patient presented to the emergency room with increasing cough and shortness of breath over the last 3 days. Also some frontal sinus symptoms as well. In ER treated with aerosol treatment without any significant improvement. Very restricted on his lung exam. When I saw patient in the emergency room, increasing dyspnea with some mild conversational dyspnea. Cough throughout the evaluation. Otherwise comfortable in bed, denies chest pain or other etiologies for his shortness of breath Opioid HPI Opioid Management Most Recent Pain and Opioid Data: Last SEP Pain Assessment 04/28/24 15:18 Review of Systems ROS Status of ROS 10 or more systems reviewed and unremark able except as noted in history and below [facility] Medical History (Updated 04/28/24 @ 16:20 by Shoaib Gonzalez MD) Heartburn ?R12 - Heartburn (ICD-10) Depression ?F32.A - Depression, unspecified (ICD-10) Hypertension ?I10 - Essential (primary) hypertension (ICD-10) Type 2 diabetes mellitus ?E11.9 - Type 2 diabetes mellitus without complications (ICD-10) Family History (Updated 06/20/23 @ 14:19 by Arelis Moreno LPN) Mother Family history of CHF (congestive heart failure) Family history of diabetes mellitus Family history of hypertension Grandmother Family history of CHF (congestive heart failure) Family history of diabetes mellitus Father Family history of COPD (chronic obstructive pulmonary disease) Family history of cancer Social History Smoking status: Former smoker Little interest or pleasure in doing things: not at all Feeling down, depressed, or hopeless: not at all Gender Identity: male Meds Home Medications and Allergies Home Medications ?Medication ?Instructions ?Recorded ?Confirmed ?Type aripiprazole 10 mg tablet 10 mg PO DAILY 12/20/22 06/20/23 History fluticasone fur. 100 mcg-umeclid 1 inh inhalation Q24H 12/20/22 04/28/24 History 62.5 mcg-vilant 25 mcg inhalat.powder (Trelegy Ellipta) glipizide 10 mg tablet 10 mg PO BID 12/20/22 04/28/24 History lisinopril 5 mg tablet 5 mg PO DAILY 12/20/22 04/28/24 History metoprolol succinate 25 mg 25 mg PO DAILY 12/20/22 04/28/24 History tablet,extended release 24 hr omeprazole 20 mg capsule,delayed 20 mg PO DAILY 12/20/22 04/28/24 History release venlafaxine 75 mg capsule,extended 150 mg PO DAILY 12/20/22 06/20/23 History release 24 hr alprazolam 0.5 mg tablet 0.5 mg PO BID PRN anxiety 06/20/23 06/20/23 History empagliflozin 25 mg tablet 25 mg PO DAILY 06/20/23 06/20/23 History (Jardiance) latanoprost 0.005 % eye drops 1 drp ophthalmic (eye) DAILY 06/20/23 04/28/24 History semaglutide 0.25 mg or 0.5 mg (2 0.5 mg subcut .weekly 06/20/23 04/28/24 History mg/3 mL) subcutaneous pen injector (Ozempic) venlafaxine 150 mg 150 mg PO BID 06/20/23 04/28/24 History capsule,extended release 24 hr albuterol sulfate 90 mcg/actuation 2 puff inhalation Q4H PRN 06/22/23 04/28/24 Rx aerosol inhaler shortness of breath or wheezing #8.5 grams prednisone 10 mg tablet See Rx Instructions .Route 06/22/23 04/28/24 Rx .COMPLEX #42 tabs theophylline 400 mg 400 mg PO Q12H 30 days #60 tabs 06/22/23 Rx tablet,extended release 24 hr hydroxyzine HCl 25 mg tablet mg 04/28/24 History pravastatin 80 mg tablet mg 04/28/24 History theophylline 450 mg mg PO 04/28/24 History tablet,extended release,12 hr Allergies Allergy/AdvReac Type Severity Reaction Status Date / Time metformin Allergy Intermediate Verified 06/20/23 11:16 Exam Constitutional Vital Signs, click to edit/add: Last Vital Signs Temp 97.9 F 04/28/24 14:38 Pulse 80 04/28/24 15:28 BP 169/97 H 04/28/24 14:38 Pulse Ox 99 04/28/24 15:28 O2 Del Method Nasal Cannula 04/28/24 15:28 O2 Flow Rate 4 04/28/24 15:28 Documenting provider has reviewed patient's vital signs: yes Common normals: apparent distress (Mild conversational dyspnea, cough throughout eval) Chest Common normals: inspection of chest normal Respiratory Common normals: abnormal respiratory effort (Mild conversational dyspnea) Auscultation: rhonchi, wheezes and diminished lung sounds; no egophony Cardio Common normals: regular rate, regular rhythm and no murmurs GI Common normals: Normal to inspection, nondistended, normoactive bowel sounds present, soft to palpation, non-tender and no hepatosplenomegaly Extremity Common normals: normal to inspection, full ROM, normal capillary refill and no clubbing, cyanosis or edema Results Labs Labs: Short CBC 04/28/24 Range/Units 14:48 WBC 12.8 H (4.0-11.0) 10^3/uL Hgb 15.2 (14.0-18.0) g/dL Hct 45.9 (42.0-54.0) % Plt Count 410 (150-450) 10^3/uL BMP 04/28/24 14:48 Sodium 135 L Potassium 3.9 Chloride 96 L Carbon Dioxide 29.6 BUN 12.0 Creatinine 1.12 Glucose 144 H Calcium 9.4 Liver Function 04/28/24 Range/Units 14:48 Total Bilirubin 0.5 (0.2-1.0) mg/dL AST 12 L (15-37) U/L ALT 20 (16-63) U/L Alkaline Phosphatase 123 H (46-116) U/L Albumin 3.5 (3.4-5.0) g/dL Assessment and Plan Assessment and Plan (1) COPD exacerbation: (2) Heartburn: (3) Depression: Qualifiers: Depression Type: major depressive disorder Major depression recurrence: unspecified whether recurrent Active/Remission status: currently active Major depression episode severity: unspecified Qualified Code(s): F32.9 - Major depressive disorder, single episode, unspecified (4) Hypertension: Qualifiers: Hypertension type: primary hypertension Qualified Code(s): I10 - Essential (primary) hypertension (5) Type 2 diabetes mellitus: Qualifiers: Diabetes mellitus continuous churn buttermaker insulin use: without shelter use Diabetes mellitus complication status: with hyperglycemia Qualified Code(s): E11.65 - Type 2 diabetes mellitus with hyperglycemia (6) Coronary artery disease: (7) Leukocytosis: (8) Hyponatremia: Plan Admission findings: Respiratory distress, leukocytosis, sputum production consistent with acute exacerbation of COPD secondary to acute bronchitis Acute exacerbation of COPD secondary to acute bronchitis: Treated patient with IV antibiotics, steroids, recurrent aerosol treatments. Try to obtain sputum culture. Patient states not as bad as he has been in the past will start patient off as observation Fairly decently controlled diabetes mellitus-likely to be elevated throughout the admission, insulin sliding scale Hyponatremia-likely sugar related, will follow daily Depression and generalized anxiety disorder-continue with home medications Hypertension-continue with home medications Admission status: Patient with increasing cough and shortness of breath. Not as significant as he is felt in the past, unable to send home low due to the significant dyspnea, will start patient off as observation
[2024-04-28] MEDS: CEFTRIAXONE 1,000 MG in 0.9 % SODIUM CHLORIDE 50 ML 100 MG IV (16:18)
--- OUTSIDE RECORDS SUMMARY | 2024-04-28 16:27 | XMS_ITS | CCD ---
Author Organization [facility] CliniSynh Care Team Providers Care Lacing Operator Name Role Phone ELTAHAWY, EHAB A Admitting Unavailable ELTAHAWY, EHAB A Attending Unavailable BRYON COWART Referring Unavailable ELTAHAWY, EHAB A Primary Care Unavailable Bryon Cowart MD Primary Care Provider Sam DO, Vanda P Unavailable Bryon Cowart Unavailable SAMSA ., VANDA Admitting Unavailable [...] MONTAGUE ., DR EVERETET Richey Attending Unavailable EDID ., DR EVERETTE Richey Admitting Unavailable DR [...] BRYON Richey Primary Care Unavailable SAI, DR JSUTINE Mendoza Consulting Unavailable SAI, DR JUSTINE Mendoza Attending Unavailable SAI, DR JUSTINE Mendoza Admitting Unavailable GERARD WOLFF Consulting Unavailable SOLO, SHAIKH Jose Attending Unavailable SHAIKH BANDA H Admitting Unavailable CUCO ., JOSE ESPINO Consulting Unavaildemetria e SOFYA, DR BRYON Richey Primary Care Unavailable DAVID GIBBS Consulting Unavailable Rubén Pina Unavailable Bryon Cowart MD Primary Care Provider Vanda Gonzalez DO Unavailable SARAH KEITH Primary Care Physician NGOZI KEITH SARAH A Attending Unavailabl e INNA, ELECTRO TECH SARAH A Attending Unavailabl e INNA, ELECTRO TECH SARAH A Attending Unavailabl e INNA, ELECTRO TECH SARAH A Attending Unavailabl e INNA, ELECTRO TECH ASRAH A Attending Unavailabl e INNA, ELECTRO TECH SARAH A Admitting Unavailabl e INNA, ELECTRO TECH SARAH A Attending Unavailabl e INNA, ELECTRO TECH SARAH A Attending Unavailabl e INNA, SARAH A Admitting Unavailable INNA SARAH A Attending Unavailable INNA, SARAH A Attending Unavailable Allergies Allergy Classification Reported Allergen(s) Allergy Type Date of Onset Reaction(s) Facility (20 sources) metFORMIN; Translations: [metformin] Drug Allergy 1 Intolerance, Diarrhea (finding) [facility] (4 sources) metFORMIN Drug Allergy Diarrhea [facility] Other (1 source) metFORMIN Drug Allergy 2 [facility] Repository Medications Current Medications Medication Drug [...] on above: Take 1 capsule by mo [facility] once daily. empagliflozin 25 mg oral tablet [...] anxiety, # 90 tab(s), Refills(s) 2, Pharmacy: [facility]/pharmacy #[id number], 177, cm, 01/24/24 10:21:00 EDT, Height/Length [...] TOPICAL Twice daily September 15, 2023 1:00am Pratts 3 1000 MG (20 sources) take 1 capsule by mouth once daily Pratts 3 1000 MG 1 capsule Orally Once a day Active Pratts-3 Fatty Acids (1 source) Start: 09-14-19 take 1000 mg by mouth once daily Pratts-3 Fatty Acids Active 1000 MG PO Daily [...] bedtime), # 90 tab(s), Refills(s) 1, Pharmacy: [facility]/pharmacy #[id number], 177, cm, 01/24/24 11:56:00 EDT, Height/Length [...] NACL 0.9% 25 mL FLUSH (I RB [id number]) Inject 10 mL intravenously. 0 02/13/2021 05/15/2022 Active Comment on above: Inject 10 mL intrave nously. theophylline 450 mg extended release oral tablet (20 sources) Methylxanthine Start: 01-24-20 take 1 tablet by mouth every twelve hours theophylline 450 mg ER Tab 450 mg = 1 tab(s), Oral, q12hr, # 180 tab(s), Refills(s) 0, Pharmacy: [facility]/pharmacy #[id number], 177, cm, 01/24/24 10:21:00 EDT, Height/Length [...] Start: 09-14-2023 take 1 capsule by mo [facility] twice daily at mealtime Venlafaxine (Effexor Xr) 150 mg capsule,extended release 24hr Active 150 MG PO Twice daily with meals September 14, 2023 1:00am Start: 03-03-2021 take 1 tablet by [facility] twice daily VENLAFAXINE ER 150 MG TABLET,EXTENDED RELEASE 24 HR Take 150 mg by mouth twice daily. 0 03/03/2021 Active take 1 capsule by [facility] every twelve hours Effexor XR 150 MG 1 capsule with food Orally bid for 90 days Active take 1 capsule by mo [facility] every twenty-four hours Effexor XR 150 MG [...] Drug Class(es) Dates Sig (Normalized) Sig (Original) yriqb-3-xkvbsttdkg inhibitor (Human) 1,000 mg in water for injection (6 sources) Start: 03-25-20 21 inject 1000 mg intravenously every week iidya-2-ohufyyyxzo inhibitor (Human) 1,000 mg in water for [...] 03-25-2021 Chronic Other aftercare (1 source) Other halfway (current) drug therapy; Translations: [OTH INTERMEDIATE CURRENT DRUG THERAPY] Onset: 3 Episodic Other aftercare (1 source) 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; Translations: [INTERMEDIATE CURRENT USE OF ASPIRIN] Onset: 3 Episodic Other aftercare (1 source) alf (current) use of oral hypoglycemic drugs; Translations: [CARPENTRY FOREMAN USE ORAL HYPOGLYCEMIC DX] Onset: 3 Episodic Other aftercare (4 sources) Encounter for therapeutic drug level monitoring; Translations: [ENC THERAPEUTC DRUG LEVL MONITORING] Onset: 3 Episodic Other lower respiratory disease (4 sources) Shortness of breath; Translations: [SHORTNESS OF BREATH] Onset: 3 Episodic Other lower respiratory disease (4 sources) Hypoxemia; Translations: [HYPOXEMIA] Onset: 3 Episodic Other nutritional; endocrine; and metabolic disorders (8 sources) Wochi-2-qiqbfcuzvei deficiency; Translations: [Uxuap-2-kycsqncrqen deficiency] Onset: 1 03-25-2021 Chronic Other nutritional; [...] nutritional; endocrine; and metabolic disorders (1 source) Iuite-5-lxzqvschonc deficiency; Translations: [BJQTS-9-TNGBMXMROKS DEFICIENCY] Onset: 3 Chronic Other nutritional; endocrine; [...] was 93%. Patient does not have a data collection associate. Patient admits to be a little more [...] feel free to contact me at extension [phone]. Thank you! Yesenia Muñoz, ARIELN, RN, CCM, CCDS, CCDS-O CDI [employer] [place] [address] P: [phone] F: [phone] [email or web address] - From: SARAH KEITH CNP To: Yesenia Muñoz RN; Sent: 04/24/2024 13:57:06 EDT Subject: RE: Pre-Visit Planning Caller Name: RICARDO HYLTON; Caller Number: H , M Patient did not show for his appointment however, dx added to the chronic list. Normal [facility] Pre-Visit Planning Pre-Visit Planning - From: Yesenia [...] BMI of 36 on 12/29/2022. The National [place] of Health defines obesity as morbid if [...] feel free to contact me at extension [phone]. Thank you! Yesenia Muñoz, ARIELN, RN, CCM, CCDS, CCDS-O CDI [employer] [address] [address] P: [phone] F: [phone] [email or web address] - From: SARAH KEITH CNP To: Wanda BRYANT, Yesenia; Sent: 04/24/2024 13:56:56 EDT Subject: RE: Pre-Visit Planning Caller Name: RICARDO HYLTON; Caller Number: Jose , M Patient did not show for his appointment however, dx added to the chronic list. Normal [facility] Interdisciplinary Note - Soc ial Workeron 01-30-2024 Interdisciplinary Note - Hospital Superintendent Interdisciplinary Note - Hospital Superintendent Consult for positive depression screen received. Per chart notes, patient's depression screen and PHQ9 were both negative. No SW needs at this time. SW will remain available. Normal [facility] Ambulatory Visit Summaryon 0 01-24-2024 Ambulatory Visit [...] PM EDT With: SARAH KEITH CNP Where: [facility] Normal [address] [place] [address] \.br\ You Need to Complete the Following\.br\ [...] if anything looks unusual. Men with a ddshiw-gngl-baoci l risk for skin cancer may want to see a contact center specialist (quarry boss) for an annual body check.\.br\ What are [facility] Ambulatory Visit Summary Ambulatory Visit Summary [...] months Comments: Diabetes & COPD Where: [address] [place] [address] Business (1) Medications What How Much When Why Instructions Changed theophylline (theophylline 450 mg ER Tab) 1 Tablets By Mouth Every 12 hours Pickup at [facility]/pharmacy #[id number] Unchanged hydrOXYzine (hydrOXYzine hydrochloride 25 mg Tab) 1 Tablets By Mouth 3 times a day as needed for for anxiety Anxiety Pickup at [facility]/pharmacy #[id number] Unchanged albuterol-ipratropiu m (Combivent Respimat 20 [...] physician if questions or concerns Pharmacy Information [facility]/pharmacy #[id number]: [address], [place] [id number] [phone] Allergies metFORMIN (Diarrhea) Problems Ongoing - Any [...] Diabetes Me (more content not included)... Normal [facility] CHEMISTRYOrdered By: SYSTEM SYSTEM on 01-24-2024 Albumin [...] used for this result was chemiluminescence using [employer]'s [employer] PSA reagent. Protein [Mass/Vol] 7.3 g/dL [...] complications) 4. 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 History of opioid [...] virus vaccine, inactivated 05/10/[address] [facility] Comment on above: Result Comment: Elec [...] of clutter to prevent tripping and/or falling. [place] Advance Directives packet provided to patient. Instructions [...] was 93%. Patient does not have a data collection associate. Patient admits to be a little more [...] directed. 4. On statin therapy (Z79.899: Other halfway (current) drug therapy) Patient currently taking statin [...] be r (more content not included)... Normal [facility] Comment on above: Result Comment: Elec [...] anxiety, # 90 tab(s), Refills(s) 2, Pharmacy: [facility]/pharmacy #[id number], 177, cm, 01/24/24 10:21:00 EDT, Height/Length [...] q12hr, # 180 tab(s), Refills(s) 0, Pharmacy: [facility]/pharmacy #[id number], 177, cm, 01/24/24 10:21:00 EDT, Height/Length Dosing, 115.7, kg, 12/28/23 13:07:00 EDT, Weight Dosing Follow-up With When Contact Information SARAH KEITH CNP, RATNA Within [address] [place] [phone] Business (1) Additional Instructions: Diabetes & [...] 2 refi (more content not included)... Normal [facility] Comment on above: Result Comment: Elec [...] feel free to contact me at extension [phone]. Thank you! ROWDY Kidd, RN, CCM, CCDS, CCDS-O - From: SARAH KEITH CNP To: Yesenia Muñoz RN; Sent: 01/24/2024 11:51:22 EDT Subject: RE: Pre-Visit Planning Caller Name: RICARDO HYLTON; Caller Number: Jose , M Added to diagnosis Normal [address] [facility] Pre-Visit Planning Pre-Visit Planning - From: Yesenia [...] feel free to contact me at extension [phone]. Thank you! ROWDY Kidd, RN, CCM, CCDS, CCDS-O - From: SARAH KEITH CNP To: Yesenia Muñoz RN; Sent: 01/24/2024 11:51:10 EDT Subject: RE: Pre-Visit Planning Caller Name: RICARDO HYLTON; Caller Number: Jose , M Added to diagnosis Normal [address] [facility] Pre-Visit Planning Pre-Visit Planning - From: Yesenia [...] BMI of 36 on 12/29/2022. The National [place] of Health defines obesity as morbid if [...] feel free to contact me at extension [phone]. Thank you! Yesenia Muñoz, ARIELN, RN, CCM, CCDS, CCDS-O - From: SARAH KEITH CNP To: Wanda BRYANT, Yesenia; Sent: 01/24/2024 11:50:53 EDT Subject: RE: Pre-Visit Planning Caller Name: RICARDO HYLTON; Caller Number: Jose , Added to diagnosis Normal [facility] U Protein/Creat Ratioon 07-0 Protein/Creatinine (U) [Ratio] 9.40 mg/gm Cr Normal .00-200.00 [facility] Comment on above: Performed By: #### 1 [id number] #### [facility] [address] [place] [address] U Creatinine 103.6 mg/dL Invalid Interpretation Code [facility] Comment on above: Performed By: #### 1 [id number] #### [facility] [address] [place] [address] Ur Total Protein 9.7 mg/dL Invalid Interpretation Code [facility] Comment on above: Performed By: #### 1 [id number] #### [facility] [address] [place] [address] Family Medicine Office/Clini c Noteon 12-29-2023 Family Medicine Office/Clinic Note HPI Staff Ricardo is a 63 year old male presenting to [facility] Establish Care: History: COPD, Emphysema DM Any previous diagnosis: History of seeing any specialist: Dr Gonzalez When was your last doctors visit: 3-4 weeks ago Last provider: Dr Cwoart Any recent labs: less than a year ago at [facility] Maintenance UTD: Colonoscopy: never PSA: doesn't thnk [...] of Dr. Lizz Cowart presents today to [facility]. He has a previous hx of COPD/Emphysema and diabetes. He reports he was released from Dr. Cowart's care d/t misuse of schedule II medications. He reports he does have a data collection associate that he sees for his COPD/emphysema. He [...] anxiety, # 90 tab(s), Refills(s) 0, Pharmacy: [facility]/pharmacy #[id number], 177.3, cm, 12/28/23 13:07:00 EDT, Height/Length [...] subq week (more content not included)... Normal [facility] Comment on above: Result Comment: Elec [...] Lifestyle ? (more content not included)... Normal [facility] Ambulatory Visit Summaryon 0 12-28-2023 Ambulatory [...] CNP Where: [facility] for Release of Medical Records 12-28-2023 Auth for Release of Medical Records [id number]# [id number] [facility] [place] 04-25-2023 NEVA Telephone (FLORINDA) RICARDO HYLTON ([id number]) 1960 M Date Time Provider Department 04/25/23 [...] any questions. 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 R[facility]YL[facility] ([id number]) 1960 M Date Time Provider Department 03/22/23 [...] number provided. Capo Meraz RN, BSN Pre-Lung Stage Producer Allergies As of Date: 03/22/2023 Noted Allergy Reaction METFORMIN 03/25/2021 5 - Intolerance Comments: diarrhea Date Reviewed: 03/25/2021 Reviewed by: Lia Sanders, ANNETTE - Fully Assessed Reason for Visit: Follow up on Lung Tx Referral [Other] Prescriptions as of 04/22/2023 - pqlcc-3-wmcblpoiud inhibitor (Human) 1,000 mg in water for [...] 81 mg by mouth once daily. - SoshE 2 SENSOR kit as directed. 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 [place] 03[facility]10-2023 [facility] RICARDO HYLTON ([id number]) 1960 M Date Time Provider Department 03/10/23 [...] being full. Capo Meraz RN, BSN Pre-Lung Stage Producer Allergies As of Date: 03/10/2023 Noted Allergy Reaction METFORMIN 03/25/2021 5 - Intolerance Comments: diarrhea Date Reviewed: 03/25/2021 Reviewed by: Lia Sanders, ANNETTE - Fully Assessed Reason for Visit: Follow up on Lung Transplant Referral [Other] Prescriptions as of 03/10/2023 - bsvzm-0-wzhioykrra inhibitor (Human) 1,000 mg in water for [...] Chronic respiratory failure with hypoxia (HCC) *02/16/2021 Nfgoo-6-kojbhmdqivh deficiency (HCC) [E88.01] 02/16/2021 Chronic obstructive pulmonary disease (HCC) [J4*01/17/2019 Essential hypertension [I10] 02/14/2019 RANCHO (obstructive sleep apnea) [G47.33] 03/25/2021 Depression [F32.A] 03/25/2021 GERD (gastroesophageal reflux disease) [K21.9] 03/25/2021 Diabetes (HCC) [E11.9] 03/25/2021 Bipolar 1 disorder (HCC) [F31.9] 03/25/2021 Encounter Status:Closed by CAPO MERZA on 03/10/[address] [facility] CARDIAC JUSTINE 3-6on 3 CK [Catalytic activity/Vol] 49 U/L Normal 39-308 [facility] Comment on above: Performed By: #### C MP #### [facility] [address] [place] [address] Dr. Jessie Lomax CK.MB [Mass/Vol] 1.93 ng/mL Normal <=3.60 [facility] Comment on above: Performed By: #### C MP #### [facility] [address] [place] [address] Dr. Jessie Lomax HSTROP 7.8 pg/mL Normal 4.0-76.1 [facility] Comment on above: Result Comment: CUT- OFF POINTS HAVE BEEN ESTABLISHED BASED ON THE FOURTH UNIVERSAL DEFINITIONS OF MYOCARDIAL INFARCTION. THE UPPER REFERENCE LIMIT (URL) OF TROPONIN, DEFINED THE 99TH PERCENTILE OF cTnI DISTRIBUTION IN A REFERENCE POPULATION, HAS BEEN CONFIRMED THE DECISION THRESHOLD FOR NE DIAGNOSIS. Performed By: #### C MP #### [facility] [address] [place] [address] Dr. Jessie Lomax LACTATE/LACTIC ACIDon 2022 Lactate [Moles/Vol] 1.5 mmol/L Normal 0.4-2.0 [facility] Comment on above: Performed By: #### B LDCX1 #### [facility] [address] [place] [address] Dr. Jessie Lomax Lactate [Moles/Vol] 2.5 mmol/L Critically high 0.4-2.0 [facility] Comment on above: Performed By: #### B LDCX1 #### [facility] [address] [place] [address] Dr. Jessie Lomax CARDIAC JUSTIEN ADMITon 023 CK [Catalytic activity/Vol] 36 U/L Critically low 39-308 [facility] Comment on above: Performed By: #### A CETON #### [facility] [address] [place] [address] Dr. Jessie Lomax CK.MB [Mass/Vol] 1.50 ng/mL Normal <=3.60 [facility] Comment on above: Performed By: #### A CETON #### [facility] [address] [place] [address] Dr. Jessie Lomax HSTROP 7.4 pg/mL Normal 4.0-76.1 [facility] Comment on above: Result Comment: CUT- OFF POINTS HAVE BEEN ESTABLISHED BASED ON THE FOURTH UNIVERSAL DEFINITIONS OF MYOCARDIAL INFARCTION. THE UPPER REFERENCE LIMIT (URL) OF TROPONIN, DEFINED THE 99TH PERCENTILE OF cTnI DISTRIBUTION IN A REFERENCE POPULATION, HAS BEEN CONFIRMED THE DECISION THRESHOLD FOR NE DIAGNOSIS. Performed By: #### A CETON #### [facility] [address] [place] [address] Dr. Jessie Lomax HERLINDA 44 ng/mL Normal 16-96 [facility] Comment on above: Performed By: #### A CETON #### [facility] [address] [place] [address] Dr. Jessie Lomax CBC AUTO DIFFon 10-03-2022 BASO # 0.1 103/ul Normal 0.0-0.1 [facility] Comment on above: Performed By: #### C BC #### [facility] [address] [place] [address] Dr. Jessie Lomax Basophils/100 WBC (Bld) 0.5 % Normal 0.2-2.0 [facility] Comment on above: Performed By: #### C BC #### [facility] [address] [place] [address] Dr. Jessie Lomax EO # 0.0 103/ul Normal 0.0-0.7 [facility] Comment on above: Performed By: #### C BC #### [facility] [address] [place] [address] Dr. Jessie Lomax Eosinophils/100 WBC (Bld) 0.2 % Critically low 0.9-7.0 [facility] Comment on above: Performed By: #### C BC #### [facility] [address] [place] [address] Dr. Jessei Lomax Erythrocyte distribution width (RBC) [Ratio] 14.6 % Normal 11.0-15.0 [facility] Comment on above: Performed By: #### C BC #### [facility] [address] [place] [address] Dr. Jessie Lomax Hematocrit (Bld) [Volume fraction] 49.6 % Normal 42.0-54.0 [facility] Comment on above: Performed By: #### C BC #### [facility] [address] [place] [address] Dr. Jessie Lomax Hemoglobin (Bld) [Mass/Vol] 16.6 g/dL Normal 14.0-18.0 [facility] Comment on above: Performed By: #### C BC #### [facility] [address] [place] [address] [address] Jessie Lomax IG # 0.10 10e3/ul Critically high 0.00-0.03 [facility] Comment on above: Performed By: #### C BC #### [facility] [address] [place] [address] Dr. Jessie Lomax IG % 0.8 % Critically high 0.0-0.5 [facility] Comment on above: Performed By: #### C BC #### [facility] [address] [place] [address] Dr. Jessie Lomax LYMPH # 1.0 103/ul Critically low 1.2-3.8 [facility] Comment on above: Performed By: #### C BC #### [facility] [address] [place] [address] Dr. Jessie Lomax Lymphocytes/100 WBC (Bld) 8.2 % Critically low 20.5-60.0 [facility] Comment on above: Performed By: #### C BC #### [facility] [address] [place] [address] Dr. Jessie Lomax MANUAL DIFF REQ NO Normal [facility] Comment on above: Performed By: #### C BC #### [facility] [address] [place] [address] Dr. Jessie Lomax MCH (RBC) [Entitic mass] 31.0 pg Normal 25.9-34.0 [facility] Comment on above: Performed By: #### C BC #### [facility] [address] [place] [address] Dr. Jessie Lomax MCHC (RBC) [Mass/Vol] 33.5 g/dL Normal 29.9-35.2 [facility] Comment on above: Performed By: #### C BC #### [facility] [address] [place] [address] Dr. Jessie Lomax MCV (RBC) [Entitic vol] 92.5 fL Normal 80.0-94.0 [facility] Comment on above: Performed By: #### C BC #### [facility] [address] [place] [address] Dr. Jessie Lomax MONO # 0.6 103/ul Normal 0.3-0.8 [facility] Comment on above: Performed By: #### C BC #### [facility] [address] [place] [address] Dr. Jessie Lomax Monocytes/100 WBC (Bld) 4.9 % Normal 1.7-12.0 [facility] Comment on above: Performed By: #### C BC #### [facility] [address] [place] [address] Dr. Jessie Lomax NEUT # 10.5 103/ul Critically high 1.4-6.5 [facility] Comment on above: Performed By: #### C BC #### [facility] [address] [place] [address] Dr. Jessie Lomax Neutrophils/100 WBC (Bld) 85.4 % Critically high 43.0-75.0 [facility] Comment on above: Performed By: #### C BC #### [facility] [address] [place] [address] Dr. Jessie Lomax Platelet mean volume (Bld) [Entitic vol] 9.3 fL Critically low 9.5-13.5 [facility] Comment on above: Performed By: #### C BC #### [facility] [address] [place] [address] Dr. Jessie Lomax PLT 259 103/ul Normal 150-450 [facility] Comment on above: Performed By: #### C BC #### [facility] [address] [place] [address] Dr. Jessie Lomax RBC 5.36 106/ul Normal 4.70-6.10 [facility] Comment on above: Performed By: #### C BC #### [facility] [address] [place] [address] [address] Jessie Lomax WBC 12.3 103/ul Critically high 4.0-11.0 [facility] Comment on above: Performed By: #### C BC #### [facility] [address] [place] [address] Dr. Jessie Lomax LACTATE/LACTIC ACIDon 2022 Lactate [Moles/Vol] 2.9 mmol/L Critically high 0.4-2.0 [facility] Comment on above: Performed By: #### C MP #### [facility] [address] [place] [address] Dr. Jessie Lomax PROF CHEM 8 (BAS METB)on Anion gap [Moles/Vol] 8.7 mmol/L Normal [facility] Comment on above: Performed By: #### A CETON #### [facility] [address] [place] [address] Dr. Jessie Lomax Calcium [Mass/Vol] 8.9 mg/dL Normal 8.5-10.1 [facility] Comment on above: Performed By: #### A CETON #### [facility] [address] [place] [address] Dr. Jessie Lomax Chloride [Moles/Vol] 100 mmol/L Normal 98-107 [facility] Comment on above: Performed By: #### A CETON #### [facility] [address] [place] [address] Dr. Jessie Lomax CO2 [Moles/Vol] 32.6 mmol/L Critically high 21.0-32.0 [facility] Comment on above: Performed By: #### A CETON #### [facility] [address] [place] [address] Dr. Jessie Lomax Creatinine [Mass/Vol] 1.32 mg/dL Critically high 0.70-1.30 [facility] Comment on above: Performed By: #### A CETON #### [facility] [address] [place] [address] Dr. Jessie Lomax EGFR-AF SPANISH >60 Normal >=60 [facility] Comment on above: Performed By: #### A CETON #### [facility] [address] [place] [address] Dr. Jessie Lomax EGFR-NON AF SPANISH 55 mL/min/1.73m2 Critically low >=60 [facility] Comment on above: Performed By: #### A CETON #### [facility] [address] [place] [address] Dr. Jessie Lomax Glucose [Mass/Vol] 360 mg/dL Critically high 74-106 T [facility] Comment on above: Performed By: #### A CETON #### [facility] [address] [place] [address] Dr. Jessie Lomax Potassium [Moles/Vol] 4.3 mmol/L Normal 3.5-5.1 [facility] Comment on above: Performed By: #### A CETON #### [facility] [address] [place] [address] Dr. Jessie Lomax Sodium [Moles/Vol] 137 mmol/L Normal 136-145 [facility] Comment on above: Performed By: #### A CETON #### [facility] [address] [place] [address] Dr. Jessie Lomax Urea nitrogen [Mass/Vol] 20.0 mg/dL Critically high 7.0-18.0 [facility] Comment on above: Performed By: #### A CETON #### [facility] [address] [place] [address] Dr. Jessie Lomax Urea nitrogen/Creatinine [Mass ratio] 15.2 mg/mg Normal [facility] Comment on above: Performed By: #### A CETON #### [facility] [address] [place] [address] Dr. Jessie Lomax XR CHEST 1 Von [...] SOLA SHELL Date: 2022-10-03 20:56 Normal [facility] URINE PROFILEon 3 Bilirubin Ql (U) Negative Normal NEGATIVE [facility] Comment on above: Performed By: #### T TYLER #### [facility] [address] [place] [address] Dr. Jessie Lomax Clarity (U) CLEAR Normal CLEAR [facility] Comment on above: Performed By: #### T TYLER #### [facility] [address] [place] [address] Dr. Jessie Lomax Color (U) LT. YELLOW Normal YELLOW [facility] Comment on above: Performed By: #### T TYLER #### [facility] [address] [place] [address] Dr. Jessie BROOKS A micrscopic examination will be performed if indicated. Normal [facility] Comment on above: Performed By: #### T TYLER #### [facility] [address] [place] [address] Dr. Jessie Lomax Glucose Ql (U) >1000 Abnormal NEGATIVE [facility] Comment on above: Performed By: #### T TYLER #### [facility] [address] [place] [address] Dr. Jessie Lomax Hemoglobin Ql (U) Negative Normal NEGATIVE [facility] Comment on above: Performed By: #### T TYLER #### [facility] [address] [place] [address] Dr. Jessie Lomax Ketones Ql (U) Negative Normal NEGATIVE [facility] Comment on above: Performed By: #### T TYLER #### [facility] [address] [place] [address] Dr. Jessie Lomax LEUKOCYTES Negative Normal NEGATIVE [facility] Comment on above: Performed By: #### T TYLER #### [facility] [address] [place] [address] Dr. Jessie Lomax Nitrite Ql (U) Negative Normal NEGATIVE [facility] Comment on above: Performed By: #### T TYLER #### [facility] [address] [place] [address] Dr. Jessie Lomax pH (U) 6.0 [pH] Normal 5-9 [facility] Comment on above: Performed By: #### T TYLER #### [facility] [address] [place] [address] Dr. Jessie Lomax SPEC GRAVITY <=1.005 Abnormal 1.005-<=1.025 [facility] Comment on above: Performed By: #### T TYLER #### [facility] [address] [place] [address] Dr. Jessie Lomax UA PROTEIN Negative Normal NEGATIVE/ TRACE [facility] Comment on above: Performed By: #### T TYLER #### [facility] [address] [place] [address] Dr. Jessie Lomax UR MICRO IND NOT INDICATED Normal [facility] Comment on above: Performed By: #### T TYLER #### [facility] [address] [place] [address] Dr. Jessie Lomax Urobilinogen Qn (U) 0.2 {Angelique'U}/dL Normal 0.2 - 1. 0 [facility] Comment on above: Performed By: #### T TYLER #### [facility] [address] [place] [address] Dr. Jessie Lomax CBC AUTO DIFFon 08-30-2022 BASO # 0.0 103/ul Normal 0.0-0.1 [facility] Comment on above: Performed By: #### C BC #### [facility] [address] [place] [address] Dr. Jessie Lomax Basophils/100 WBC (Bld) 0.1 % Critically low 0.2-2.0 [facility] Comment on above: Performed By: #### C BC #### [facility] [address] [place] [address] Dr. Jessie Lomax EO # 0.0 103/ul Normal 0.0-0.7 [facility] Comment on above: Performed By: #### C BC #### [facility] [address] [address] [address] Jessie Lomax Eosinophils/100 WBC (Bld) 0.1 % Critically low 0.9-7.0 [facility] Comment on above: Performed By: #### C BC #### [facility] [address] [place] [address] Dr. Jessie Lomax Erythrocyte distribution width (RBC) [Ratio] 13.6 % Normal 11.0-15.0 [facility] Comment on above: Performed By: #### C BC #### [facility] [address] [place] [address] Dr. Jessie Lomax Hematocrit (Bld) [Volume fraction] 46.3 % Normal 42.0-54.0 [facility] Comment on above: Performed By: #### C BC #### [facility] [address] [place] [address] Dr. Jessie Lomax Hemoglobin (Bld) [Mass/Vol] 15.4 g/dL Normal 14.0-18.0 [facility] Comment on above: Performed By: #### C BC #### [facility] [address] [place] [address] Dr. Jessie Lomax IG # 0.08 10e3/ul Critically high 0.00-0.03 [facility] Comment on above: Performed By: #### C BC #### [facility] [address] [place] [address] Dr. Jessie Lomax IG % 0.6 % Critically high 0.0-0.5 [facility] Comment on above: Performed By: #### C BC #### [facility] [address] [place] [address] Dr. Jessie Lomax LYMPH # 0.8 103/ul Critically low 1.2-3.8 [facility] Comment on above: Performed By: #### C BC #### [facility] [address] [place] [address] Dr. Jessie Lomax Lymphocytes/100 WBC (Bld) 5.7 % Critically low 20.5-60.0 [facility] Comment on above: Performed By: #### C BC #### [facility] [address] [address] [address] Jessie Lomax MANUAL DIFF REQ NO Normal [facility] Comment on above: Performed By: #### C BC #### [facility] [address] [place] [address] Dr. Jessie Lomax MCH (RBC) [Entitic mass] 30.2 pg Normal 25.9-34.0 [facility] Comment on above: Performed By: #### C BC #### [facility] [address] [place] [address] Dr. Jessie Lomax MCHC (RBC) [Mass/Vol] 33.3 g/dL Normal 29.9-35.2 [facility] Comment on above: Performed By: #### C BC #### [facility] [address] [place] [address] Dr. Jessie Lomax MCV (RBC) [Entitic vol] 90.8 fL Normal 80.0-94.0 [facility] Comment on above: Performed By: #### C BC #### [facility] [address] [place] [address] Dr. Jessie Lomax MONO # 0.4 103/ul Normal 0.3-0.8 [facility] Comment on above: Performed By: #### C BC #### [facility] [address] [place] [address] Dr. Jessie Lomax Monocytes/100 WBC (Bld) 2.9 % Normal 1.7-12.0 [facility] Comment on above: Performed By: #### C BC #### [facility] [address] [place] [address] Dr. Jessie Lomax NEUT # 12.3 103/ul Critically high 1.4-6.5 [facility] Comment on above: Performed By: #### C BC #### [facility] [address] [place] [address] Dr. Jessie Lomax Neutrophils/100 WBC (Bld) 90.6 % Critically high 43.0-75.0 [facility] Comment on above: Performed By: #### C BC #### [facility] [address] [address] [address] Jessie Lomax Platelet mean volume (Bld) [Entitic vol] 9.3 fL Critically low 9.5-13.5 [facility] Comment on above: Performed By: #### C BC #### [facility] [address] [address] [address] Jessie Lomax PLT 389 103/ul Normal 150-450 [facility] Comment on above: Performed By: #### C BC #### [facility] [address] [address] [address] Jessie Lomax RBC 5.10 106/ul Normal 4.70-6.10 [facility] Comment on above: Performed By: #### C BC #### [facility] [address] [address] [address] Jessie Lomax WBC 13.6 103/ul Critically high 4.0-11.0 [facility] Comment on above: Performed By: #### C BC #### [facility] [address] [address] [address] Jessie Lomax POINT OF CARE GLUCOSEon 08-18 Glucose [Mass/Vol] 283 mg/dL Critically high 74-106 [facility] Comment on above: Performed By: #### C BC #### [facility] [address] [place] [address] Dr. Jessie Lomax Glucose [Mass/Vol] 315 mg/dL Critically high 74-106 [facility] Comment on above: Performed By: #### T TYLER #### [facility] [address] [place] [address] Dr. Jessie Lomax PROF 14(COMP METB)on 023 Albumin [Mass/Vol] 3.7 g/dL Normal 3.4-5.0 [facility] Comment on above: Performed By: #### C MP #### [facility] [address] [place] [address] Dr. Jessie Lomax Albumin/Globulin [Mass ratio] 1.0 {ratio} Normal [facility] Comment on above: Performed By: #### C MP #### [facility] [address] [address] [address] Jessie Lomax ALP [Catalytic activity/Vol] 94 U/L Normal 46-116 [facility] Comment on above: Performed By: #### C MP #### [facility] [address] [place] [address] Dr. Jessie Lomax ALT [Catalytic activity/Vol] 23 U/L Normal 16-63 [facility] Comment on above: Performed By: #### C MP #### [facility] [address] [address] [address] Jessie Lomax Anion gap [Moles/Vol] 13.6 mmol/L Normal [facility] Comment on above: Performed By: #### C MP #### [facility] [address] [place] [address] Dr. Jessie Lomax AST [Catalytic activity/Vol] 9 U/L Critically low 15-37 [facility] Comment on above: Performed By: #### C MP #### [facility] [address] [place] [address] Dr. Jessie Lomax Bilirubin [Mass/Vol] 0.3 mg/dL Normal 0.2-1.0 [facility] Comment on above: Performed By: #### C MP #### [facility] [address] [place] [address] Dr. Jessie Lomax Calcium [Mass/Vol] 9.8 mg/dL Normal 8.5-10.1 [facility] Comment on above: Performed By: #### C MP #### [facility] [address] [place] [address] Dr. Jessie Lomax Chloride [Moles/Vol] 99 mmol/L Normal 98-107 [facility] Comment on above: Performed By: #### C MP #### [facility] [address] [place] [address] Dr. Jessie Lomax CO2 [Moles/Vol] 29.2 mmol/L Normal 21.0-32.0 [facility] Comment on above: Performed By: #### C MP #### [facility] [address] [place] [address] Dr. Jessie Lomax Creatinine [Mass/Vol] 1.17 mg/dL Normal 0.70-1.30 [facility] Comment on above: Performed By: #### C MP #### [facility] [address] [address] [address] Jessie Lomax EGFR-AF SPANISH >60 Normal >=60 [facility] Comment on above: Performed By: #### C MP #### [facility] [address] [address] [address] Jessie Lomax EGFR-NON AF SPANISH >60 Normal >=60 [facility] Comment on above: Performed By: #### C MP #### [facility] [address] [address] [address] Jesise Lomax Globulin (S) [Mass/Vol] 3.6 g/dL Normal [facility] Comment on above: Performed By: #### C MP #### [facility] [address] [address] [address] Jessie Lomax Glucose [Mass/Vol] 259 mg/dL Critically high 74-106 [facility] Comment on above: Performed By: #### C MP #### [facility] [address] [address] [address] Jessie Lomax Potassium [Moles/Vol] 3.8 mmol/L Normal 3.5-5.1 [facility] Comment on above: Performed By: #### C MP #### [facility] [address] [address] [address] Jessie Lomax Protein [Mass/Vol] 7.3 g/dL Normal 6.4-8.2 [facility] Comment on above: Performed By: #### C MP #### [facility] [address] [address] [address] Jessie Lomax Sodium [Moles/Vol] 138 mmol/L Normal 136-145 [facility] Comment on above: Performed By: #### C MP #### [facility] [address] [address] [address] Jessie Lomax Urea nitrogen [Mass/Vol] 21.0 mg/dL Critically high 7.0-18.0 [facility] Comment on above: Performed By: #### C MP #### [facility] [address] [address] [address] Jessie Lomax Urea nitrogen/Creatinine [Mass ratio] 17.9 mg/mg [facility] Comment on above: Performed By: #### C MP #### [facility] [address] [address] [address] Jessie Lomax BLOOD GASES BTYon 08-29-2022 02 MODE HAND HELD NEB Normal [facility] Comment on above: Performed By: #### C MP #### [facility] [address] [address] [address] Jessie Lomax ALLENS TEST Positive [facility] Comment on above: Performed By: #### C MP #### [facility] [address] [address] [address] Jessie Lomax Base excess Calc (Bld) [Moles/Vol] 2.1 mmol/L Critically high -2.0-2.0 [facility] Comment on above: Performed By: #### C MP #### [facility] [address] [address] [address] Jessie Lomax BIPAP PRESSURE [facility] Comment on above: Performed By: #### C MP #### [facility] [address] [address] [address] Jessie Lomax CPAP [facility] Comment on above: Performed By: #### C MP #### [facility] [address] [address] [address] Jessie Lomax FIO2 [facility] Comment on above: Performed By: #### C MP #### [facility] [address] [address] [address] Jessie Lomax HCO3 (Bld) [Moles/Vol] 27.7 mmol/L Critically high 22.0-26.0 [facility] Comment on above: Performed By: #### C MP #### [facility] [address] [address] [address] Jessie Lomax LPM 6 [facility] Comment on above: Performed By: #### C MP #### [facility] [address] [address] [address] Jessie Lomax MINUTE VOLUME Normal [facility] Comment on above: Performed By: #### C MP #### [facility] [address] [place] [address] Dr. Jessie Lomax Oxygen (Bld) [Partial pressure] 90.6 mm[Hg] Normal 80.0-100.0 [facility] Comment on above: Performed By: #### C MP #### [facility] [address] [address] [address] Jessie Lomax Oxygen saturation in Blood 95.5 % Normal 95.0-100.0 [facility] Comment on above: Performed By: #### C MP #### [facility] [address] [place] [address] Dr. Jessie Lomax PCO2 49.7 mmHg Critically high 35.0-45.0 [facility] Comment on above: Performed By: #### C MP #### [facility] [address] [place] [address] Dr. Jessie Lomax PEEP [facility] Comment on above: Performed By: #### C MP #### [facility] [address] [address] [address] Jessie Lomax pH (Bld) 7.354 [pH] Normal 7.350-7.450 [facility] Comment on above: Performed By: #### C MP #### [facility] [address] [place] [address] Dr. Jessie Lomax PIP [facility] Comment on above: Performed By: #### C MP #### [facility] [address] [place] [address] Dr. Jessie Lomax PS [facility] Comment on above: Performed By: #### C MP #### [facility] [address] [place] [address] Dr. Jessie Lomax PUNCTURE SITE RR [facility] Comment on above: Performed By: #### C MP #### [facility] [address] [place] [address] Dr. Jessie Lomax RATE [facility] Comment on above: Performed By: #### C MP #### [facility] [address] [place] [address] Dr. Jessie Lomax VENT MODE [facility] Comment on above: Performed By: #### C MP #### [facility] [address] [place] [address] Dr. Jessie Lomax [facility] Comment on above: Performed By: #### C MP #### [facility] [address] [place] [address] Dr. Jessie Lomax BNPon 08-29-2022 Natriuretic peptide B (Bld) [Mass/Vol] 130.0 pg/mL Normal <=900.0 [facility] Comment on above: Performed By: #### B [id number] #### [facility] [address] [place] [address] Dr. Jessie Lomax CARDIAC JUSTINE ADMITon 023 CK [Catalytic activity/Vol] 41 U/L Normal 39-308 [facility] Comment on above: Performed By: #### B [id number] #### [facility] [address] [place] [address] Dr. Jessie Lomax CK.MB [Mass/Vol] 1.87 ng/mL Normal <=3.60 [facility] Comment on above: Performed By: #### B [id number] #### [facility] [address] [place] [address] Dr. Jessie Lomax HSTROP 27.3 pg/mL Normal 4.0-76.1 [facility] Comment on above: Result Comment: CUT- OFF POINTS HAVE BEEN ESTABLISHED BASED ON THE FOURTH UNIVERSAL DEFINITIONS OF MYOCARDIAL INFARCTION. THE UPPER REFERENCE LIMIT (URL) OF TROPONIN, DEFINED THE 99TH PERCENTILE OF cTnI DISTRIBUTION IN A REFERENCE POPULATION, HAS BEEN CONFIRMED THE DECISION THRESHOLD FOR NE DIAGNOSIS. Performed By: #### B [id number] #### [facility] [address] [place] [address] Dr. Jessie Lomax HERLINDA 36 ng/mL Normal 16-96 [facility] Comment on above: Performed By: #### B [id number] #### [facility] [address] [address] [address] Jessie Lomax CBC AUTO DIFFon 08-29-2022 BASO # 0.1 103/ul Normal 0.0-0.1 [facility] Comment on above: Performed By: #### C BC #### [facility] [address] [place] [address] Dr. Jessie Lomax Basophils/100 WBC (Bld) 0.7 % Normal 0.2-2.0 [facility] Comment on above: Performed By: #### C BC #### [facility] [address] [place] [address] Dr. Jessie Lomax EO # 0.1 103/ul Normal 0.0-0.7 [facility] Comment on above: Performed By: #### C BC #### [facility] [address] [place] [address] Dr. Jessie Lomax Eosinophils/100 WBC (Bld) 0.8 % Critically low 0.9-7.0 [facility] Comment on above: Performed By: #### C BC #### [facility] [address] [place] [address] Dr. Jessie Lomax Erythrocyte distribution width (RBC) [Ratio] 13.6 % Normal 11.0-15.0 [facility] Comment on above: Performed By: #### C BC #### [facility] [address] [place] [address] Dr. Jessie Lomax Hematocrit (Bld) [Volume fraction] 51.6 % Normal 42.0-54.0 [facility] Comment on above: Performed By: #### C BC #### [facility] [address] [place] [address] Dr. Jessie Lomax Hemoglobin (Bld) [Mass/Vol] 17.1 g/dL Normal 14.0-18.0 [facility] Comment on above: Performed By: #### C BC #### [facility] [address] [place] [address] Dr. Jessie Lomax IG # 0.05 10e3/ul Critically high 0.00-0.03 [facility] Comment on above: Performed By: #### C BC #### [facility] [address] [place] [address] Dr. Jessie Lomax IG % 0.5 % Normal 0.0-0.5 [facility] Comment on above: Performed By: #### C BC #### [facility] [address] [place] [address] Dr. Jessie Lomax LYMPH # 2.1 103/ul Normal 1.2-3.8 [facility] Comment on above: Performed By: #### C BC #### [facility] [address] [place] [address] Dr. Jessie Lomax Lymphocytes/100 WBC (Bld) 20.9 % Normal 20.5-60.0 [facility] Comment on above: Performed By: #### C BC #### [facility] [address] [place] [address] Dr. Jessie Lomax MANUAL DIFF REQ NO Normal [facility] Comment on above: Performed By: #### C BC #### [facility] [facility] [address] [place] [address] Dr. Jessie Lomax MCH (RBC) [Entitic mass] 30.7 pg Normal 25.9-34.0 [facility] Comment on above: Performed By: #### C BC #### [facility] [address] [place] [address] Dr. Jessie Lomax MCHC (RBC) [Mass/Vol] 33.1 g/dL Normal 29.9-35.2 [facility] Comment on above: Performed By: #### C BC #### [facility] [address] [place] [address] Dr. Jessie Lomax MCV (RBC) [Entitic vol] 92.6 fL Normal 80.0-94.0 [facility] Comment on above: Performed By: #### C BC #### [facility] [address] [place] [address] Dr. Jessie Lomax MONO # 1.0 103/ul Critically high 0.3-0.8 [facility] Comment on above: Performed By: #### C BC #### [facility] [address] [place] [address] Dr. Jessie Lomax Monocytes/100 WBC (Bld) 9.5 % Normal 1.7-12.0 [facility] Comment on above: Performed By: #### C BC #### [facility] [address] [place] [address] Dr. Jessie Lomax NEUT # 6.7 103/ul Critically high 1.4-6.5 [facility] Comment on above: Performed By: #### C BC #### [facility] [address] [place] [address] Dr. Jessie Lomax Neutrophils/100 WBC (Bld) 67.6 % Normal 43.0-75.0 [facility] Comment on above: Performed By: #### C BC #### [facility] [address] [place] [address] Dr. Jessie Lomax Platelet mean volume (Bld) [Entitic vol] 9.5 fL Normal 9.5-13.5 [facility] Comment on above: Performed By: #### C BC #### [facility] [address] [place] [address] Dr. Jessie Lomax PLT 407 103/ul Normal 150-450 [facility] Comment on above: Performed By: #### C BC #### [facility] [address] [place] [address] Dr. Jessie Lomax RBC 5.57 106/ul Normal 4.70-6.10 [facility] Comment on above: Performed By: #### C BC #### [facility] [address] [place] [address] Dr. Jessie Lomax WBC 10.0 103/ul Normal 4.0-11.0 [facility] Comment on above: Performed By: #### C BC #### [facility] [address] [place] [address] Dr. Jessie Lomax CULTURE BLOODon 08-29-2022 Microscopic examination of blood, culture Culture Observations: NO GROWTH AT 5 DAYS. Normal [facility] Comment on above: Performed By: #### C MP #### [facility] [address] [place] [address] Dr. Jessie Lomax Microscopic examination of blood, culture Culture Observations: NO GROWTH AT 5 DAYS. Normal [facility] Comment on above: Performed By: #### B [id number] #### [facility] [address] [place] [address] Dr. Jessie Lomax Covid-19 PCR ([facility]on 08-18 SARS-CoV-2 (COVID-19) RNA YOLANDA+probe Ql (Unsp spec) Not detected Normal NOT DETECTED [facility] Comment on above: Result Comment: When [...] for this test is supported by the [employer]'s declaration that [...] used). Performed By: #### B [id number] #### [facility] [address] [place] [address] Dr. Jessie Lomax ER URINE PROFILEon 3 Bilirubin Ql (U) Negative Normal NEGATIVE [facility] Comment on above: Performed By: #### A CETON #### [facility] [address] [place] [address] Dr. Jessie Lomax Clarity (U) CLEAR Normal CLEAR [facility] Comment on above: Performed By: #### A CETON #### [facility] [address] [place] [address] Dr. Jessie Lomax Color (U) YELLOW Normal YELLOW [facility] Comment on above: Performed By: #### A CETON #### [facility] [address] [address] [address] Jessie Jara micrscopic examination will be performed if indicated. Normal [facility] Comment on above: Performed By: #### A CETON #### [facility] [address] [place] [address] Dr. Jessie Lomax Glucose Ql (U) 500 mg/dl Abnormal NEGATIVE [facility] Comment on above: Performed By: #### A CETON #### [facility] [address] [address] [address] Jessie Lomax Hemoglobin Ql (U) Negative Normal NEGATIVE [facility] Comment on above: Performed By: #### A CETON #### [facility] [address] [place] [address] Dr. Jessie Lomax Ketones Ql (U) TRACE Abnormal NEGATIVE [facility] Comment on above: Performed By: #### A CETON #### [facility] [address] [place] [address] Dr. Jessie Lomax LEUKOCYTES Negative Normal NEGATIVE [facility] Comment on above: Performed By: #### A CETON #### [facility] [address] [address] [address] Jessie Lomax Nitrite Ql (U) Negative Normal NEGATIVE [facility] Comment on above: Performed By: #### A CETON #### [facility] [address] [place] [address] Dr. Jessie Lomax pH (U) 5.5 [pH] Normal 5-9 [facility] Comment on above: Performed By: #### A CETON #### [facility] [address] [place] [address] Dr. Jessie Lomax SPEC GRAVITY >=1.030 Abnormal 1.005-<=1.025 [facility] Comment on above: Performed By: #### A CETON #### [facility] [address] [place] [address] Dr. Jessie Lomax UA PROTEIN Negative Normal NEGATIVE/ TRACE [facility] Comment on above: Performed By: #### A CETON #### [facility] [address] [address] [address] Jessie Lomax UR MICRO IND NOT INDICATED Normal [facility] Comment on above: Performed By: #### A CETON #### [facility] [address] [address] [address] Jessie Lomax Urobilinogen Qn (U) 0.2 {Angelique'U}/dL Normal 0.2 - 1. 0 [facility] Comment on above: Performed By: #### A CETON #### [facility] [address] [place] [address] Dr. Jessie Loamx LACTATE/LACTIC ACIDon 2022 Lactate [Moles/Vol] 1.6 mmol/L Normal 0.4-1.9 [facility] Comment on above: Performed By: #### L ACT #### [facility] [address] [place] [address] Dr. Jessie Lomax POINT OF CARE GLUCOSEon 08-18 Glucose [Mass/Vol] 330 mg/dL Critically high [address] [place] [address] Comment on above: Performed By: #### A CETON #### [facility] [address] [place] [address] Dr. Jessie Lomax Glucose [Mass/Vol] 284 mg/dL Critically high [address] [place] [address] Comment on above: Performed By: #### C BC #### [facility] [address] [place] [address] Dr. Jessie Lomax Glucose [Mass/Vol] 379 mg/dL Critically high [address] [place] [address] Comment on above: Performed By: #### B [id number] #### [facility] [address] [place] [address] Dr. Jessie Lomax Glucose [Mass/Vol] 276 mg/dL Critically high [address] [place] [address] Comment on above: Performed By: #### T TYLER #### [facility] [address] [place] [address] Dr. Jessie Lomax PROF 14(COMP METB)on 023 Albumin [Mass/Vol] 3.8 g/dL Normal 3.4-5.0 [facility] Comment on above: Performed By: #### B [id number] #### [facility] [address] [address] [address] Jessie Lomax Albumin/Globulin [Mass ratio] 1.0 {ratio} Normal [facility] Comment on above: Performed By: #### B [id number] #### [facility] [address] [address] [address] Jessie Lomax ALP [Catalytic activity/Vol] 106 U/L Normal 46-116 [facility] Comment on above: Performed By: #### B [id number] #### [facility] [address] [address] [address] Jessie Lomax ALT [Catalytic activity/Vol] 27 U/L Normal 16-63 [facility] Comment on above: Performed By: #### B [id number] #### [facility] [address] [place] [address] Dr. Jessie Lomax Anion gap [Moles/Vol] 12.0 mmol/L Normal [facility] Comment on above: Performed By: #### B [id number] #### [facility] [address] [place] [address] Dr. Jessie Lomax AST [Catalytic activity/Vol] 15 U/L Normal 15-37 [facility] Comment on above: Performed By: #### B [id number] #### [facility] [address] [place] [address] Dr. Jessie Lomax Bilirubin [Mass/Vol] 0.3 mg/dL Normal 0.2-1.0 [facility] Comment on above: Performed By: #### B [id number] #### [facility] [address] [address] [address] Jessie Lomax Calcium [Mass/Vol] 10.0 mg/dL Normal 8.5-10.1 [facility] Comment on above: Performed By: #### B [id number] #### [facility] [address] [address] [address] Jessie Lomax Chloride [Moles/Vol] 101 mmol/L Normal 98-107 [facility] Comment on above: Performed By: #### B [id number] #### [facility] [address] [address] [address] Jessie Lomax CO2 [Moles/Vol] 32.4 mmol/L Critically high 21.0-32.0 [facility] Comment on above: Performed By: #### B [id number] #### [facility] [address] [address] [address] Jessie Lomax Creatinine [Mass/Vol] 1.14 mg/dL Normal 0.70-1.30 [facility] Comment on above: Performed By: #### B [id number] #### [facility] [address] [place] [address] Dr. Jessie Lomax EGFR-AF SPANISH >60 Normal >=60 [facility] Comment on above: Performed By: #### B [id number] #### [facility] [address] [place] [address] Dr. Jessie oLmax EGFR-NON AF SPANISH >60 Normal >=60 [facility] Comment on above: Performed By: #### B [id number] #### [facility] [address] [place] [address] Dr. Jessie Lomax Globulin (S) [Mass/Vol] 3.7 g/dL Normal [facility] Comment on above: Performed By: #### B [id number] #### [facility] [address] [place] [address] Dr. Jessie Lomax Glucose [Mass/Vol] 204 mg/dL Critically high 74-106 [facility] Comment on above: Performed By: #### B [id number] #### [facility] [address] [place] [address] Dr. Jessie Lomax Potassium [Moles/Vol] 4.4 mmol/L Normal 3.5-5.1 [facility] Comment on above: Performed By: #### B [id number] #### [facility] [address] [address] [address] Jessie Lomax Protein [Mass/Vol] 7.5 g/dL Normal 6.4-8.2 [facility] Comment on above: Performed By: #### B [id number] #### [facility] [address] [address] [address] Jessie Lomax Sodium [Moles/Vol] 141 mmol/L Normal 136-145 [facility] Comment on above: Performed By: #### B [id number] #### [facility] [address] [address] [address] Jessie Lomax Urea nitrogen [Mass/Vol] 23.0 mg/dL Critically high 7.0-18.0 [facility] Comment on above: Performed By: #### B [id number] #### [facility] [address] [address] [address] Jessie Lomax Urea nitrogen/Creatinine [Mass ratio] 20.2 mg/mg Normal [facility] Comment on above: Performed By: #### B [id number] #### [facility] [address] [place] [address] Dr. Jessie Lomax THEOPHYLLINEon 08-29-2022 THEOPHYLLINE <2.0 Critically low 10.0-20.0 [facility] Comment on above: Performed By: #### B [id number] #### [facility] [address] [address] [address] Jessie Lomax XR CHEST 1 Von [...] by: YADIRA BALLESTEROS Date: 2022-08-29 02:03 Normal [facility] ACETONE SERUMon 08-17-2022 ACETONE Negative Normal NEGATIVE [facility] Comment on above: Performed By: #### A CETON #### [facility] [address] [place] [address] Dr. Jessie Lomax BNPon 08-17-2022 Natriuretic peptide B (Bld) [Mass/Vol] 294.0 pg/mL Normal <=900.0 [facility] Comment on above: Performed By: #### A CETON #### [facility] [address] [place] [address] Dr. Jessie Lomax CBC AUTO DIFFon 08-17-2022 BASO # 0.1 103/ul Normal 0.0-0.1 [facility] Comment on above: Performed By: #### C BC #### [facility] [address] [place] [address] Dr. Jessie Lomax Basophils/100 WBC (Bld) 0.7 % Normal 0.2-2.0 [facility] Comment on above: Performed By: #### C BC #### [facility] [address] [place] [address] Dr. Jessie Lomax EO # 0.1 103/ul Normal 0.0-0.7 [facility] Comment on above: Performed By: #### C BC #### [facility] [address] [place] [address] Dr. Jessie Lomax Eosinophils/100 WBC (Bld) 0.9 % Normal 0.9-7.0 [facility] Comment on above: Performed By: #### C BC #### [facility] [address] [place] [address] Dr. Jessie Lomax Erythrocyte distribution width (RBC) [Ratio] 13.4 % Normal 11.0-15.0 [facility] Comment on above: Performed By: #### C BC #### [facility] [address] [place] [address] Dr. Jessie Lomax Hematocrit (Bld) [Volume fraction] 43.2 % Normal 42.0-54.0 [facility] Comment on above: Performed By: #### C BC #### [facility] [address] [place] [address] Dr. Jessie Lomax Hemoglobin (Bld) [Mass/Vol] 14.5 g/dL Normal 14.0-18.0 [facility] Comment on above: Performed By: #### C BC #### [facility] [address] [place] [address] Dr. Jessie Lomax IG # 0.04 10e3/ul Critically high 0.00-0.03 [facility] Comment on above: Performed By: #### C BC #### [facility] [address] [place] [address] Dr. Jessie Lomax IG % 0.5 % Normal 0.0-0.5 [facility] Comment on above: Performed By: #### C BC #### [facility] [address] [place] [address] Dr. Jessie Lomax LYMPH # 1.9 103/ul Normal 1.2-3.8 [facility] Comment on above: Performed By: #### C BC #### [facility] [address] [place] [address] Dr. Jessie Lomax Lymphocytes/100 WBC (Bld) 22.1 % Normal 20.5-60.0 [facility] Comment on above: Performed By: #### C BC #### [facility] [address] [place] [address] Dr. Jessie Lomax MANUAL DIFF REQ NO Normal [facility] Comment on above: Performed By: #### C BC #### [facility] [address] [place] [address] Dr. Jessie Lomax MCH (RBC) [Entitic mass] 30.7 pg Normal 25.9-34.0 [facility] Comment on above: Performed By: #### C BC #### [facility] [address] [place] [address] Dr. Jessie Lomax MCHC (RBC) [Mass/Vol] 33.6 g/dL Normal 29.9-35.2 [facility] Comment on above: Performed By: #### C BC #### [facility] [address] [place] [address] Dr. Jessie Lomax MCV (RBC) [Entitic vol] 91.5 fL Normal 80.0-94.0 [facility] Comment on above: Performed By: #### C BC #### [facility] [address] [place] [address] Dr. Jessie Lomax MONO # 0.7 103/ul Normal 0.3-0.8 [facility] Comment on above: Performed By: #### C BC #### [facility] [address] [place] [address] Dr. Jessie Lomax Monocytes/100 WBC (Bld) 7.7 % Normal 1.7-12.0 [facility] Comment on above: Performed By: #### C BC #### [facility] [address] [place] [address] Dr. Jessie Lomax NEUT # 5.8 103/ul Normal 1.4-6.5 [facility] Comment on above: Performed By: #### C BC #### [facility] [address] [place] [address] Dr. Jessie Lomax Neutrophils/100 WBC (Bld) 68.1 % Normal 43.0-75.0 [facility] Comment on above: Performed By: #### C BC #### [facility] [address] [place] [address] Dr. Jessie Lomax Platelet mean volume (Bld) [Entitic vol] 9.0 fL Critically low 9.5-13.5 [facility] Comment on above: Performed By: #### C BC #### [facility] [address] [place] [address] Dr. Jessie Lomax PLT 275 103/ul Normal 150-450 [facility] Comment on above: Performed By: #### C BC #### [facility] [address] [place] [address] Dr. Jessie Lomax RBC 4.72 106/ul Normal 4.70-6.10 [facility] Comment on above: Performed By: #### C BC #### [facility] [address] [place] [address] Dr. Jessie Lomax WBC 8.6 103/ul Normal 4.0-11.0 [facility] Comment on above: Performed By: #### C BC #### [facility] [address] [place] [address] Dr. Jessie Lomax CTA CHEST WO W [...] DAVID GIBBS Date: 2022-08-17 17:23 Normal [facility] CULTURE BLOODon 08-17-2022 Microscopic examination of blood, culture Culture Observations: NO GROWTH AT 5 DAYS. Normal [facility] Comment on above: Performed By: #### C MP #### [facility] [address] [place] [address] Dr. Jessie Lomax Microscopic examination of blood, culture Culture Observations: NO GROWTH AT 5 DAYS. Normal [facility] Comment on above: Performed By: #### B [id number] #### [facility] [address] [place] [address] Dr. Jessie Lomax [facility] SARS-CoV-2 (COVID-19) RNA YOLANDA+probe Ql (Unsp spec) Not detected Normal NOT DETECTED [facility] Comment on above: Result Comment: When [...] for this test is supported by the [employer]'s declaration that [...] used). Performed By: #### C BC #### [facility] [address] [place] [address] Dr. Jessie Lomax LACTATE/LACTIC ACIDon 2022 Lactate [Moles/Vol] 2.0 mmol/L Critically high 0.4-1.9 [facility] Comment on above: Performed By: #### C BC #### [facility] [address] [place] [address] Dr. Jessie Lomax PH VENOUS BLOODon 08-17-2022 PCO2 VENOUS 44.5 mmHg Normal 40.0-52.0 [facility] Comment on above: Performed By: #### C BC #### [facility] [address] [place] [address] Dr. Jessie Lomax pH VENOUS 7.433 Critically high 7.330-7.430 [facility] Comment on above: Performed By: #### C BC #### [facility] [address] [place] [address] Dr. Jessie Lomax PROF 14(COMP METB)on 023 Albumin [Mass/Vol] 3.4 g/dL Normal 3.4-5.0 [facility] Comment on above: Performed By: #### C BC #### [facility] [address] [place] [address] Dr. Jessie Lomax Albumin/Globulin [Mass ratio] 1.1 {ratio} Normal [facility] Comment on above: Performed By: #### C BC #### [facility] [address] [address] [address] Jessie Lomax ALP [Catalytic activity/Vol] 90 U/L Normal 46-116 [facility] Comment on above: Performed By: #### C BC #### [facility] [address] [place] [address] Dr. Jessie Lomax ALT [Catalytic activity/Vol] 26 U/L Normal 16-63 [facility] Comment on above: Performed By: #### C BC #### [facility] [address] [place] [address] Dr. Jessie Lomax Anion gap [Moles/Vol] 11.1 mmol/L Normal [facility] Comment on above: Performed By: #### C BC #### [facility] [address] [place] [address] Dr. Jessie Lomax AST [Catalytic activity/Vol] 9 U/L Critically low 15-37 [facility] Comment on above: Performed By: #### C BC #### [facility] [address] [place] [address] Dr. Jessie Lomax Bilirubin [Mass/Vol] 0.2 mg/dL Normal 0.2-1.0 [facility] Comment on above: Performed By: #### C BC #### [facility] [address] [place] [address] Dr. Jessie Lomax Calcium [Mass/Vol] 9.0 mg/dL Normal 8.5-10.1 [facility] Comment on above: Performed By: #### C BC #### [facility] [address] [place] [address] Dr. Jessie Lomax Chloride [Moles/Vol] 103 mmol/L Normal 98-107 [facility] Comment on above: Performed By: #### C BC #### [facility] [address] [place] [address] Dr. Jessie Lomax CO2 [Moles/Vol] 31.5 mmol/L Normal 21.0-32.0 [facility] Comment on above: Performed By: #### C BC #### [facility] [address] [place] [address] Dr. Jessie Lomax Creatinine [Mass/Vol] 0.94 mg/dL Normal 0.70-1.30 [facility] Comment on above: Performed By: #### C BC #### [facility] [address] [address] [address] Jessie Lomax EGFR-AF SPANISH >60 Normal >=60 [facility] Comment on above: Performed By: #### C BC #### [facility] [address] [address] [address] Jessie Lomax EGFR-NON AF SPANISH >60 Normal >=60 [facility] Comment on above: Performed By: #### C BC #### [facility] [address] [address] [address] Jessie Lomax Globulin (S) [Mass/Vol] 3.2 g/dL Normal [facility] Comment on above: Performed By: #### C BC #### [facility] [address] [address] [address] Jessie Lomax Glucose [Mass/Vol] 124 mg/dL Critically high 74-106 [facility] Comment on above: Performed By: #### C BC #### [facility] [address] [address] [address] Jessie Lomax Potassium [Moles/Vol] 3.6 mmol/L Normal 3.5-5.1 [facility] Comment on above: Performed By: #### C BC #### [facility] [address] [address] [address] Jessie Lomax Protein [Mass/Vol] 6.6 g/dL Normal 6.4-8.2 [facility] Comment on above: Performed By: #### C BC #### [facility] [address] [address] [address] Jessie Lomax Sodium [Moles/Vol] 142 mmol/L Normal 136-145 [facility] Comment on above: Performed By: #### C BC #### [facility] [address] [address] [address] Jessie Lomax Urea nitrogen [Mass/Vol] 14.0 mg/dL Normal 7.0-18.0 [facility] Comment on above: Performed By: #### C BC #### [facility] [address] [place] [address] Dr. Jessie Lomax Urea nitrogen/Creatinine [Mass ratio] 14.9 mg/mg Normal [facility] Comment on above: Performed By: #### C BC #### [facility] [address] [place] [address] Dr. Jessie Lomax PROTIMEon 08-17-2022 INR Coag (PPP) [Relative time] {INR} Normal [facility] Comment on above: Performed By: #### B [id number] #### [facility] [address] [place] [address] Dr. Jessie Lomax INR GUIDELINES SEE BELOW Normal [facility] Comment on above: Result Comment: VANESSA RED INR: 2.0 - 3.0 CONDITIONS NOT LISTED BELOW 2.5 - 3.5 FOR PROSTHETIC HEART VALVE REPLACEMENT 2.5 - 3.5 RECURRENT THROMBOSIS Performed By: #### B [id number] #### [facility] [address] [place] [address] Dr. Jessie Lomax PT Coag (PPP) [Time] 9.7 s Normal 9.0-11.6 [facility] Comment on above: Performed By: #### B [id number] #### [facility] [address] [place] [address] Dr. Jessie Lomax PTTon 08-17-2022 aPTT Coag (Bld) [Time] 23.4 s Normal 22.3-36.2 [facility] Comment on above: Performed By: #### B [id number] #### [facility] [address] [place] [address] Dr. Jessie Lomax TROPONIN, HIGH SENSITIVITYon 08-17-2022 HSTROP 14.6 pg/mL Normal 4.0-76.1 [facility] Comment on above: Result Comment: CUT- OFF POINTS HAVE BEEN ESTABLISHED BASED ON THE FOURTH UNIVERSAL DEFINITIONS OF MYOCARDIAL INFARCTION. THE UPPER REFERENCE LIMIT (URL) OF TROPONIN, DEFINED THE 99TH PERCENTILE OF cTnI DISTRIBUTION IN A REFERENCE POPULATION, HAS BEEN CONFIRMED THE DECISION THRESHOLD FOR NE DIAGNOSIS. Performed By: #### A CETON #### [facility] [address] [place] [address] Dr. Jessie Lomax TSHon 08-17-2022 TSH 1.079 uIU/mL Normal 0.358-3.740 [facility] Comment on above: Performed By: #### C BC #### [facility] [address] [place] [address] Dr. Jessie Lomax THEOPHYLLINEon 08-10-2022 THEOPHYLLINE 11.3 ug/mL Normal 10.0-20.0 [facility] Comment on above: Performed By: #### T TYLER #### [facility] [address] [place] [address] Dr. Jessie Lomax CBC AUTO DIFFon 07-02-2022 BASO # 0.0 103/ul Normal 0.0-0.1 [facility] Comment on above: Performed By: #### T TYLER #### [facility] [address] [place] [address] Dr. Jessie Lomax Basophils/100 WBC (Bld) 0.1 % Critically low 0.2-2.0 [facility] Comment on above: Performed By: #### T TYLER #### [facility] [address] [place] [address] Dr. Jessie Lomax EO # 0.0 103/ul Normal 0.0-0.7 [facility] Comment on above: Performed By: #### T TYLER #### [facility] [address] [place] [address] Dr. Jessie Lomax Eosinophils/100 WBC (Bld) 0.1 % Critically low 0.9-7.0 [facility] Comment on above: Performed By: #### T TYLER #### [facility] [address] [place] [address] Dr. Jessie Lomax Erythrocyte distribution width (RBC) [Ratio] 13.6 % Normal 11.0-15.0 [facility] Comment on above: Performed By: #### T TYLER #### [facility] [address] [place] [address] Dr. Jessie Lomax Hematocrit (Bld) [Volume fraction] 44.4 % Normal 42.0-54.0 [facility] Comment on above: Performed By: #### T TYLER #### [facility] [address] [place] [address] Dr. Jessie Lomax Hemoglobin (Bld) [Mass/Vol] 14.9 g/dL Normal 14.0-18.0 [facility] Comment on above: Performed By: #### T TYLER #### [facility] [address] [place] [address] Dr. Jessie Lomax IG # 0.11 10e3/ul Critically high 0.00-0.03 [facility] Comment on above: Performed By: #### T TYLER #### [facility] [address] [place] [address] Dr. Jessie Lomax IG % 0.7 % Critically high 0.0-0.5 [facility] Comment on above: Performed By: #### T TYLER #### [facility] [address] [place] [address] Dr. Jessie Lomax LYMPH # 0.8 103/ul Critically low 1.2-3.8 [facility] Comment on above: Performed By: #### T TYLER #### [facility] [address] [place] [address] Dr. Jessie Lomax Lymphocytes/100 WBC (Bld) 5.1 % Critically low 20.5-60.0 [facility] Comment on above: Performed By: #### T TYLER #### [facility] [address] [place] [address] Dr. Jessie Lomax MANUAL DIFF REQ NO Normal [facility] Comment on above: Performed By: #### T TYLER #### [facility] [address] [place] [address] Dr. Jessie Lomax MCH (RBC) [Entitic mass] 31.1 pg Normal 25.9-34.0 [facility] Comment on above: Performed By: #### T TYLER #### [facility] [address] [place] [address] Dr. Jessie Lomax MCHC (RBC) [Mass/Vol] 33.6 g/dL Normal 29.9-35.2 [facility] Comment on above: Performed By: #### T TYLER #### [facility] [address] [place] [address] Dr. Jessie Lomax MCV (RBC) [Entitic vol] 92.7 fL Normal 80.0-94.0 [facility] Comment on above: Performed By: #### T TYLER #### [facility] [address] [place] [address] Dr. Jessie Lomax MONO # 0.4 103/ul Normal 0.3-0.8 [facility] Comment on above: Performed By: #### T TYLER #### [facility] [address] [place] [address] Dr. Jessie Lomax Monocytes/100 WBC (Bld) 2.6 % Normal 1.7-12.0 [facility] Comment on above: Performed By: #### T TYLER #### [facility] [address] [place] [address] Dr. Jessie Lomax NEUT # 13.8 103/ul Critically high 1.4-6.5 [facility] Comment on above: Performed By: #### T TYLER #### [facility] [address] [place] [address] Dr. Jessie Lomax Neutrophils/100 WBC (Bld) 91.4 % Critically high 43.0-75.0 [facility] Comment on above: Performed By: #### T TYLER #### [facility] [address] [place] [address] Dr. Jessie Lomax Platelet mean volume (Bld) [Entitic vol] 9.9 fL Normal 9.5-13.5 [facility] Comment on above: Performed By: #### T TYLER #### [facility] [address] [place] [address] Dr. Jessie Lomax PLT 300 103/ul Normal 150-450 [facility] Comment on above: Performed By: #### T TYLER #### [facility] [address] [place] [address] Dr. Jessie Lomax RBC 4.79 106/ul Normal 4.70-6.10 [facility] Comment on above: Performed By: #### T TYLER #### [facility] [address] [place] [address] Dr. Jessie Lomax WBC 15.1 103/ul Critically high 4.0-11.0 [facility] Comment on above: Performed By: #### T TYLER #### [facility] [address] [place] [address] Dr. Jessie Lomax POINT OF CARE GLUCOSEon 06-17 Glucose [Mass/Vol] 288 mg/dL Critically high 74-106 [facility] Comment on above: Performed By: #### C BC #### [facility] [address] [place] [address] Dr. Jessie Lomax Glucose [Mass/Vol] 280 mg/dL Critically high 74-106 [facility] Comment on above: Performed By: #### T TYLER #### [facility] [address] [place] [address] Dr. Jessie Lomax PROF 14(COMP METB)on 022 Albumin [Mass/Vol] 3.7 g/dL Normal 3.4-5.0 [facility] Comment on above: Performed By: #### C MP #### [facility] [address] [place] [address] Dr. Jessie Lomax Albumin/Globulin [Mass ratio] 1.1 {ratio} Normal [facility] Comment on above: Performed By: #### C MP #### [facility] [address] [place] [address] Dr. Jessie oLmax ALP [Catalytic activity/Vol] 73 U/L Normal 46-116 [facility] Comment on above: Performed By: #### C MP #### [facility] [address] [place] [address] Dr. Jessie Lomax ALT [Catalytic activity/Vol] 22 U/L Normal 16-63 [facility] Comment on above: Performed By: #### C MP #### [facility] [address] [place] [address] Dr. Jessie Lomax Anion gap [Moles/Vol] 13.4 mmol/L Normal [facility] Comment on above: Performed By: #### C MP #### [facility] [address] [address] [address] Jessie Lomax AST [Catalytic activity/Vol] 16 U/L Normal 15-37 [facility] Comment on above: Performed By: #### C MP #### [facility] [address] [address] [address] Jessie Lomax Bilirubin [Mass/Vol] 0.3 mg/dL Normal 0.2-1.0 [facility] Comment on above: Performed By: #### C MP #### [facility] [address] [address] [address] Jessie Lomax Calcium [Mass/Vol] 9.3 mg/dL Normal 8.5-10.1 [facility] Comment on above: Performed By: #### C MP #### [facility] [address] [address] [address] Jessie Lomax Chloride [Moles/Vol] 98 mmol/L Normal 98-107 [facility] Comment on above: Performed By: #### C MP #### [facility] [address] [address] [address] Jessie Lomax CO2 [Moles/Vol] 29.9 mmol/L Normal 21.0-32.0 [facility] Comment on above: Performed By: #### C MP #### [facility] [address] [address] [address] Jessie Lomax Creatinine [Mass/Vol] 1.18 mg/dL Normal 0.70-1.30 [facility] Comment on above: Performed By: #### C MP #### [facility] [address] [address] [address] Jessie Lomax EGFR-AF SPANISH >60 Normal >=60 [facility] Comment on above: Performed By: #### C MP #### [facility] [address] [address] [address] Jessie Lomax EGFR-NON AF SPANISH >60 Normal >=60 [facility] Comment on above: Performed By: #### C MP #### [facility] [address] [address] [address] Jessie Lomax Globulin (S) [Mass/Vol] 3.3 g/dL Normal [facility] Comment on above: Performed By: #### C MP #### [facility] [address] [address] [address] Jessie Lomax Glucose [Mass/Vol] 329 mg/dL Critically high 74-106 T [facility] Comment on above: Performed By: #### C MP #### [facility] [address] [address] [address] Jessie Lomax Potassium [Moles/Vol] 4.3 mmol/L Normal 3.5-5.1 [facility] Comment on above: Performed By: #### C MP #### [facility] [address] [place] [address] Dr. Jessie Lomax Protein [Mass/Vol] 7.0 g/dL Normal 6.4-8.2 [facility] Comment on above: Performed By: #### C MP #### [facility] [address] [address] [address] Jessie Lomax Sodium [Moles/Vol] 137 mmol/L Normal 136-145 [facility] Comment on above: Performed By: #### C MP #### [facility] [address] [address] [address] Jessie Lomax Urea nitrogen [Mass/Vol] 21.0 mg/dL Critically high 7.0-18.0 [facility] Comment on above: Performed By: #### C MP #### [facility] [address] [place] [address] Dr. Jessie Lomax Urea nitrogen/Creatinine [Mass ratio] 17.8 mg/mg Normal [facility] Comment on above: Performed By: #### C MP #### [facility] [address] [place] [address] Dr. Jessie Lomax CBC W MANUAL DIFFon 12-15-20 22 ATYPICAL LYMPH # Normal [facility] Comment on above: Performed By: #### C BC #### [facility] [address] [address] [address] Jessie Lomax ATYPICAL LYMPH % Normal [facility] Comment on above: Performed By: #### C BC #### [facility] [address] [place] [address] Dr. Jessie Lomax BAND # 0.1 103/ul Normal 0.0-0.3 [facility] Comment on above: Performed By: #### C BC #### [facility] [address] [place] [address] Dr. Jessie Lomax BAND % 1 % Normal 0-5 [facility] Comment on above: Performed By: #### C BC #### [facility] [address] [place] [address] Dr. Jessie Lomax BASOM # 0.00 103/ul Normal 0.00-0.10 [facility] Comment on above: Performed By: #### C BC #### [facility] [address] [place] [address] Dr. Jessie Lomax BASOM % 0.0 % Critically low 0.2-2.0 [facility] Comment on above: Performed By: #### C BC #### [facility] [address] [place] [address] Dr. Jessie Lomax BLAST # Normal [facility] Comment on above: Performed By: #### C BC #### [facility] [address] [place] [address] Dr. Jessie Lomax BLAST % Normal [facility] Comment on above: Performed By: #### C BC #### [facility] [address] [place] [address] Dr. Jessie Lomax CORRECTED WBC Normal 4.0-11.0 [facility] Comment on above: Performed By: #### C BC #### [facility] [address] [place] [address] Dr. Jessie Lomax EOS # 0.12 103/ul Normal 0.00-0.70 [facility] Comment on above: Performed By: #### C BC #### [facility] [address] [place] [address] Dr. Jessie Lomax EOS% 1.0 % Normal 0.9-7.0 [facility] Comment on above: Performed By: #### C BC #### [facility] [address] [place] [address] Dr. Jessie Lomax HCT 45.4 % Normal 42.0-54.0 [facility] Comment on above: Performed By: #### C BC #### [facility] [address] [address] [address] Jessie Lomax HGB 15.5 g/dl Normal 14.0-18.0 [facility] Comment on above: Performed By: #### C BC #### [facility] [address] [place] [address] Dr. Jessie Lomax LYMPHM # 0.48 103/ul Critically low 1.20-3.80 [facility] Comment on above: Performed By: #### C BC #### [facility] [address] [place] [address] Dr. Jessie Lomax LYMPHM% 4.0 % Critically low 20.5-60.0 [facility] Comment on above: Performed By: #### C BC #### [facility] [address] [place] [address] Dr. Jessie Lomax MCH 31.8 pg Normal 25.9-34.0 [facility] Comment on above: Performed By: #### C BC #### [facility] [address] [place] [address] Dr. Jessie Lomax MCHC 34.1 g/dl Normal 29.9-35.2 [facility] Comment on above: Performed By: #### C BC #### [facility] [address] [place] [address] Dr. Jessie Lomax MCV 93.0 fL Normal 80.0-94.0 [facility] Comment on above: Performed By: #### C BC #### [facility] [address] [place] [address] Dr. Jessie Lomax METAMYELOCYTE # Normal [facility] Comment on above: Performed By: #### C BC #### [facility] [address] [place] [address] Dr. Jessie Lomax METAMYELOCYTE % Normal [facility] Comment on above: Performed By: #### C BC #### [facility] [address] [place] [address] Dr. Jessie Lomax MONOM# 0.24 103/ul Critically low 0.30-0.80 [facility] Comment on above: Performed By: #### C BC #### [facility] [address] [place] [address] Dr. Jessie Lomax MONOM% 2.0 % Normal 1.7-12.0 [facility] Comment on above: Performed By: #### C BC #### [facility] [address] [place] [address] Dr. Jessie Lomax MPV 9.6 fL Normal 9.5-13.5 [facility] Comment on above: Performed By: #### C BC #### [facility] [address] [place] [address] Dr. Jessie Lomax MYELOCYTE # Normal [facility] Comment on above: Performed By: #### C BC #### [facility] [address] [place] [address] Dr. Jessie Lomax MYELOCYTE % Normal [facility] Comment on above: Performed By: #### C BC #### [facility] [address] [place] [address] Dr. Jessie Lomax NRBC Normal [facility] Comment on above: Performed By: #### C BC #### [facility] [address] [place] [address] Dr. Jessie Lomax PLT 300 103/ul Normal 150-450 [facility] Comment on above: Performed By: #### C BC #### [facility] [address] [place] [address] Dr. Jessie Lomax RBC 4.88 106/ul Normal 4.70-6.10 [facility] Comment on above: Performed By: #### C BC #### [facility] [address] [place] [address] Dr. Jessie Lomax RDW 13.5 % Normal 11.0-15.0 [facility] Comment on above: Performed By: #### C BC #### [facility] [address] [place], [place] [address] Dr. Jessie Lomax SEG # 10.95 103/ul Critically high 1.40-6.50 [facility] Comment on above: Performed By: #### C BC #### [facility] [address] [address] [address] Jessie Lomax SEG % 92.0 % Critically high 43.0-75.0 [facility] Comment on above: Performed By: #### C BC #### [facility] [address] [address] [address] Jessie Lomax WBC 11.9 103/ul Critically high 4.0-11.0 [facility] Comment on above: Performed By: #### C BC #### [facility] [address] [address] [address] Jessie Lomax POINT OF CARE GLUCOSEon 06-17 Glucose [Mass/Vol] 428 mg/dL Critically high 74-106 [facility] Comment on above: Performed By: #### A CETON #### [facility] [address] [address] [address] Jessie Lomax Glucose [Mass/Vol] 337 mg/dL Critically high 74-106 [facility] Comment on above: Performed By: #### B LDCX1 #### [facility] [address] [address] [address] Jessie Lomax Glucose [Mass/Vol] 233 mg/dL Critically high 74-106 [facility] Comment on above: Performed By: #### B LDCX1 #### [facility] [address] [address] [address] Jessie Lomax PROF 14(COMP METB)on 022 Albumin [Mass/Vol] 3.7 g/dL Normal 3.4-5.0 [facility] Comment on above: Performed By: #### C MP #### [facility] [address] [address] [address] Jessie Lomax Albumin/Globulin [Mass ratio] 1.1 {ratio} Normal [facility] Comment on above: Performed By: #### C MP #### [facility] [address] [address] [address] Jessie Lomax ALP [Catalytic activity/Vol] 86 U/L Normal 46-116 [facility] Comment on above: Performed By: #### C MP #### [facility] [address] [address] [address] Jessie Lomax ALT [Catalytic activity/Vol] 20 U/L Normal 16-63 [facility] Comment on above: Performed By: #### C MP #### [facility] [address] [address] [address] Jessie Lomax Anion gap [Moles/Vol] 13.8 mmol/L Normal [facility] Comment on above: Performed By: #### C MP #### [facility] [address] [place] [address] Dr. Jessie Lomax AST [Catalytic activity/Vol] 10 U/L Critically low 15-37 [facility] Comment on above: Performed By: #### C MP #### [facility] [address] [place] [address] Dr. Jessie Lomax Bilirubin [Mass/Vol] 0.3 mg/dL Normal 0.2-1.0 [facility] Comment on above: Performed By: #### C MP #### [facility] [address] [place] [address] Dr. Jessie Lomax Calcium [Mass/Vol] 9.3 mg/dL Normal 8.5-10.1 [facility] Comment on above: Performed By: #### C MP #### [facility] [address] [address] [address] Jessie Lomax Chloride [Moles/Vol] 101 mmol/L Normal 98-107 [facility] Comment on above: Performed By: #### C MP #### [facility] [address] [address] [address] Jessie Lomax CO2 [Moles/Vol] 27.0 mmol/L Normal 21.0-32.0 [facility] Comment on above: Performed By: #### C MP #### [facility] [address] [address] [address] Jessie Lomax Creatinine [Mass/Vol] 1.15 mg/dL Normal 0.70-1.30 [facility] Comment on above: Performed By: #### C MP #### [facility] [address] [place] [address] Dr. Jessie Lomax EGFR-AF SPANISH >60 Normal >=60 [facility] Comment on above: Performed By: #### C MP #### [facility] [address] [address] [address] Jessie Lomax EGFR-NON AF SPANISH >60 Normal >=60 [facility] Comment on above: Performed By: #### C MP #### [facility] [address] [place] [address] Dr. Jessie Lomax Globulin (S) [Mass/Vol] 3.5 g/dL Normal [facility] Comment on above: Performed By: #### C MP #### [facility] [address] [place] [address] Dr. Jessie Lomax Glucose [Mass/Vol] 284 mg/dL Critically high 74-106 [facility] Comment on above: Performed By: #### C MP #### [facility] [address] [place] [address] Dr. Jessie Lomax Potassium [Moles/Vol] 4.8 mmol/L Normal 3.5-5.1 [facility] Comment on above: Performed By: #### C MP #### [facility] [address] [place] [address] Dr. Jessie Lomax Protein [Mass/Vol] 7.2 g/dL Normal 6.4-8.2 [facility] Comment on above: Performed By: #### C MP #### [facility] [address] [place] [address] Dr. Jessie Lomax Sodium [Moles/Vol] 137 mmol/L Normal 136-145 [facility] Comment on above: Performed By: #### C MP #### [facility] [address] [place] [address] Dr. Jessie Lomax Urea nitrogen [Mass/Vol] 22.0 mg/dL Critically high 7.0-18.0 [facility] Comment on above: Performed By: #### C MP #### [facility] [address] [place] [address] Dr. Jessie Lomax Urea nitrogen/Creatinine [Mass ratio] 19.1 mg/mg Normal [facility] Comment on above: Performed By: #### C MP #### [facility] [address] [place] [address] Dr. Jessie Lomax ACETONE SERUMon 06-30-2022 ACETONE Negative Normal NEGATIVE [facility] Comment on above: Performed By: #### A CETON #### [facility] [address] [place] [address] Dr. Jessie Lomax BNPon 06-30-2022 Natriuretic peptide B (Bld) [Mass/Vol] 45.0 pg/mL Normal <=900.0 [facility] Comment on above: Performed By: #### T TYLER #### [facility] [address] [place] [address] Dr. Jessie Lomax CBC AUTO DIFFon 06-30-2022 BASO # 0.1 103/ul Normal 0.0-0.1 [facility] Comment on above: Performed By: #### C MP #### [facility] [address] [place] [address] Dr. Jessie Lomax Basophils/100 WBC (Bld) 0.9 % Normal 0.2-2.0 [facility] Comment on above: Performed By: #### C MP #### [facility] [address] [place] [address] Dr. Jessie Lomax EO # 0.1 103/ul Normal 0.0-0.7 [facility] Comment on above: Performed By: #### C MP #### [facility] [address] [place] [address] Dr. Jessie Lomax Eosinophils/100 WBC (Bld) 0.9 % Normal 0.9-7.0 [facility] Comment on above: Performed By: #### C MP #### [facility] [address] [place] [address] Dr. Jessie Lomax Erythrocyte distribution width (RBC) [Ratio] 13.4 % Normal 11.0-15.0 [facility] Comment on above: Performed By: #### C MP #### [facility] [address] [place] [address] Dr. Jessie Lmoax Hematocrit (Bld) [Volume fraction] 47.0 % Normal 42.0-54.0 [facility] Comment on above: Performed By: #### C MP #### [facility] [address] [place] [address] Dr. Jessie Lomax Hemoglobin (Bld) [Mass/Vol] 16.0 g/dL Normal 14.0-18.0 [facility] Comment on above: Performed By: #### C MP #### [facility] [address] [place] [address] Dr. Jessie Lomax IG # 0.05 10e3/ul Critically high 0.00-0.03 [facility] Comment on above: Performed By: #### C MP #### [facility] [address] [place] [address] Dr. Jessie Lomax IG % 0.5 % Normal 0.0-0.5 [facility] Comment on above: Performed By: #### C MP #### [facility] [address] [place] [address] Dr. Jessie Lomax LYMPH # 2.0 103/ul Normal 1.2-3.8 [facility] Comment on above: Performed By: #### C MP #### [facility] [address] [place] [address] Dr. Jessie Lomax Lymphocytes/100 WBC (Bld) 20.1 % Critically low 20.5-60.0 [facility] Comment on above: Performed By: #### C MP #### [facility] [address] [place] [address] Dr. Jessie Lomax MANUAL DIFF REQ NO Normal [facility] Comment on above: Performed By: #### C MP #### [facility] [address] [place] [address] Dr. Jessie Lomax MCH (RBC) [Entitic mass] 31.5 pg Normal 25.9-34.0 [facility] Comment on above: Performed By: #### C MP #### [facility] [address] [address] [address] Jessie Lomax MCHC (RBC) [Mass/Vol] 34.0 g/dL Normal 29.9-35.2 [facility] Comment on above: Performed By: #### C MP #### [facility] [address] [address] [address] Jessie Lomax MCV (RBC) [Entitic vol] 92.5 fL Normal 80.0-94.0 [facility] Comment on above: Performed By: #### C MP #### [facility] [address] [place] [address] Dr. Jessie Lomax MONO # 0.7 103/ul Normal 0.3-0.8 [facility] Comment on above: Performed By: #### C MP #### [facility] [address] [place] [address] Dr. Jessie Lomax Monocytes/100 WBC (Bld) 6.8 % Normal 1.7-12.0 [facility] Comment on above: Performed By: #### C MP #### [facility] [address] [place] [address] Dr. Jessie Lomax NEUT # 6.9 103/ul Critically high 1.4-6.5 [facility] Comment on above: Performed By: #### C MP #### [facility] [address] [place] [address] Dr. Jessie Lomax Neutrophils/100 WBC (Bld) 70.8 % Normal 43.0-75.0 [facility] Comment on above: Performed By: #### C MP #### [facility] [address] [place] [address] Dr. Jessie Lomax Platelet mean volume (Bld) [Entitic vol] 9.5 fL Normal 9.5-13.5 [facility] Comment on above: Performed By: #### C MP #### [facility] [address] [place] [address] Dr. Jessie Lomax PLT 308 103/ul Normal 150-450 [facility] Comment on above: Performed By: #### C MP #### [facility] [address] [place] [address] Dr. Jessie Lomax RBC 5.08 106/ul Normal 4.70-6.10 [facility] Comment on above: Performed By: #### C MP #### [facility] [address] [place] [address] Dr. Jessie Lomax WBC 9.7 103/ul Normal 4.0-11.0 [facility] Comment on above: Performed By: #### C MP #### [facility] [address] [place] [address] Dr. Jessie Lomax CULTURE BLOODon 06-30-2022 Microscopic examination of blood, culture Culture Observations: NO GROWTH AT 5 DAYS. Normal [facility] Comment on above: Performed By: #### B [id number] #### [facility] [address] [place] [address] Dr. Jessie Lomax Microscopic examination of blood, culture Culture Observations: NO GROWTH AT 5 DAYS. Normal [facility] Comment on above: Performed By: #### B [id number] #### [facility] [address] [place] [address] Dr. Jessie Lomax [facility] SARS-CoV-2 (COVID-19) RNA YOLANDA+probe Ql (Unsp spec) Not detected Normal NOT DETECTED [facility] Comment on above: Result Comment: When [...] for this test is supported by the [employer] of Health and Human Service's declaration that [...] used). Performed By: #### B [id number] #### [facility] [address] [place] [address] Dr. Jessie Lomax D-DIMERon 06-30-2022 D-DIMER 0.26 mg/L FEU Normal <=0.59 [facility] Comment on above: Performed By: #### C BC #### [facility] [address] [place] [address] Dr. Jessie Lomax D-DIMER COMMENTS SEE BELOW Normal [facility] Comment on above: Result [...] hospitalization. Performed By: #### C BC #### [facility] [address] [place] [address] Dr. Jessie Lomax LACTATE/LACTIC ACIDon 2021 Lactate [Moles/Vol] 1.7 mmol/L Normal 0.4-1.9 [facility] Comment on above: Performed By: #### B [id number] #### [facility] [address] [place] [address] Dr. Jessie Lomax PH VENOUS BLOODon 06-30-2022 PCO2 VENOUS 54.1 mmHg Critically high 40.0-52.0 [facility] Comment on above: Performed By: #### B [id number] #### [facility] [address] [place] [address] Dr. Jessie Lomax pH VENOUS 7.323 Critically low 7.330-7.430 [facility] Comment on above: Performed By: #### B [id number] #### [facility] [address] [place] [address] Dr. Jessie Lomax PROF 14(COMP METB)on 022 Albumin [Mass/Vol] 3.9 g/dL Normal 3.4-5.0 [facility] Comment on above: Performed By: #### T TYLER #### [facility] [address] [place] [address] Dr. Jessie Lomax Albumin/Globulin [Mass ratio] 1.1 {ratio} Normal [facility] Comment on above: Performed By: #### T TYLER #### [facility] [address] [place] [address] Dr. Jessie Lomax ALP [Catalytic activity/Vol] 96 U/L Normal 46-116 [facility] Comment on above: Performed By: #### T TYLER #### [facility] [address] [place] [address] Dr. Jessie Lomax ALT [Catalytic activity/Vol] 19 U/L Normal 16-63 [facility] Comment on above: Performed By: #### T TYLER #### [facility] [address] [place] [address] Dr. Jessie Lomax Anion gap [Moles/Vol] 4.5 mmol/L Normal [facility] Comment on above: Performed By: #### T TYLER #### [facility] [address] [place] [address] Dr. Jessie Lomax AST [Catalytic activity/Vol] 13 U/L Critically low 15-37 [facility] Comment on above: Performed By: #### T TYLER #### [facility] [address] [place] [address] Dr. Jessie Lomax Bilirubin [Mass/Vol] 0.4 mg/dL Normal 0.2-1.0 [facility] Comment on above: Performed By: #### T TYLER #### [facility] [address] [place] [address] Dr. Jessie Lomax Calcium [Mass/Vol] 9.2 mg/dL Normal 8.5-10.1 [facility] Comment on above: Performed By: #### T TYLER #### [facility] [address] [address] [address] Jessie Lomax Chloride [Moles/Vol] 103 mmol/L Normal 98-107 [facility] Comment on above: Performed By: #### T TYLER #### [facility] [address] [address] [address] Jessie Lomax CO2 [Moles/Vol] 26.3 mmol/L Normal 21.0-32.0 [facility] Comment on above: Performed By: #### T TYLER #### [facility] [address] [address] [address] Jessie Lomax Creatinine [Mass/Vol] 1.06 mg/dL Normal 0.70-1.30 [facility] Comment on above: Performed By: #### T TYLER #### [facility] [address] [place] [address] Dr. Jessie Lomax EGFR-AF SPANISH >60 Normal >=60 [facility] Comment on above: Performed By: #### T TYLER #### [facility] [address] [address] [address] Jessie Lomax EGFR-NON AF SPANISH >60 Normal >=60 [facility] Comment on above: Performed By: #### T TYLER #### [facility] [address] [address] [address] Jessie Lomax Globulin (S) [Mass/Vol] 3.5 g/dL Normal [facility] Comment on above: Performed By: #### T TYLER #### [facility] [address] [address] [address] Jessie Lomax Glucose [Mass/Vol] 221 mg/dL Critically high 74-106 [facility] Comment on above: Performed By: #### T TYLER #### [facility] [address] [address] [address] Jessie Lomax Potassium [Moles/Vol] 4.6 mmol/L Normal 3.5-5.1 [facility] Comment on above: Performed By: #### T TYLER #### [facility] [address] [address] [address] Jessie Lomax Protein [Mass/Vol] 7.4 g/dL Normal 6.4-8.2 [facility] Comment on above: Performed By: #### T TYLER #### [facility] [address] [place] [address] Dr. Jessie Lomax Sodium [Moles/Vol] 138 mmol/L Normal 136-145 [facility] Comment on above: Performed By: #### T TYLER #### [facility] [address] [address] [address] Jessie Lomax Urea nitrogen [Mass/Vol] 23.0 mg/dL Critically high 7.0-18.0 [facility] Comment on above: Performed By: #### T TYLER #### [facility] [address] [place] [address] Dr. Jessie Lomax Urea nitrogen/Creatinine [Mass ratio] 20.2 mg/mg Normal [facility] Comment on above: Performed By: #### T TYLER #### [facility] [address] [place] [address] Dr. Jessie Lomax PROTIMEon 06-30-2022 INR Coag (PPP) [Relative time] 0.93 {INR} Normal [facility] Comment on above: Performed By: #### A CETON #### [facility] [address] [place] [address] Dr. Jessie Lomax INR GUIDELINES SEE BELOW Normal [facility] Comment on above: Result Comment: VANESSA RED INR: 2.0 - 3.0 CONDITIONS NOT LISTED BELOW 2.5 - 3.5 FOR PROSTHETIC HEART VALVE REPLACEMENT 2.5 - 3.5 RECURRENT THROMBOSIS Performed By: #### A CETON #### [facility] [address] [place] [address] Dr. Jessie Lomax PT Coag (PPP) [Time] 10.1 s Normal 9.0-11.6 [facility] Comment on above: Performed By: #### A CETON #### [facility] [address] [place] [address] Dr. Jessie Lomax PTTon 06-30-2022 aPTT Coag (Bld) [Time] 25.1 s Normal 22.3-36.2 [facility] Comment on above: Performed By: #### B [id number] #### [facility] [address] [place] [address] Dr. Jessie Lomax TROPONIN, HIGH SENSITIVITYon 06-30-2022 HSTROP 11.4 pg/mL Normal 4.0-76.1 [facility] Comment on above: Result Comment: CUT- OFF POINTS HAVE BEEN ESTABLISHED BASED ON THE FOURTH UNIVERSAL DEFINITIONS OF MYOCARDIAL INFARCTION. THE UPPER REFERENCE LIMIT (URL) OF TROPONIN, DEFINED THE 99TH PERCENTILE OF cTnI DISTRIBUTION IN A REFERENCE POPULATION, HAS BEEN CONFIRMED THE DECISION THRESHOLD FOR NE DIAGNOSIS. Performed By: #### T TYLER #### [facility] [address] [place] [address] Dr. Jessie Lomax XR CHEST 1 Von [...] SOLA SHELL Date: 2022-06-30 21:00 Normal [facility] BNPon 05-02-2022 Natriuretic peptide B (Bld) [Mass/Vol] 90.0 pg/mL Normal <=900.0 [facility] Comment on above: Performed By: #### B [id number] #### [facility] [address] [place] [address] Dr. Jessie Lomax CARDIAC JUSTINE ADMITon 022 CK [Catalytic activity/Vol] 84 U/L Normal 39-308 [facility] Comment on above: Performed By: #### B [id number] #### [facility] [address] [place] [address] Dr. Jessie Lomax CK.MB [Mass/Vol] 3.74 ng/mL Critically high <=3.60 [facility] Comment on above: Performed By: #### B [id number] #### [facility] [address] [place] [address] Dr. Jessie Lomax HSTROP 14.1 pg/mL Normal 4.0-76.1 [facility] Comment on above: Result Comment: CUT- OFF POINTS HAVE BEEN ESTABLISHED BASED ON THE FOURTH UNIVERSAL DEFINITIONS OF MYOCARDIAL INFARCTION. THE UPPER REFERENCE LIMIT (URL) OF TROPONIN, DEFINED THE 99TH PERCENTILE OF cTnI DISTRIBUTION IN A REFERENCE POPULATION, HAS BEEN CONFIRMED THE DECISION THRESHOLD FOR NE DIAGNOSIS. Performed By: #### B [id number] #### [facility] [address] [place] [address] Dr. Jessie Lomax HERLINDA 55 ng/mL Normal 16-96 [facility] Comment on above: Performed By: #### B [id number] #### [facility] [address] [place] [address] Dr. Jessie Lomax CBC AUTO DIFFon 05-02-2022 BASO # 0.1 103/ul Normal 0.0-0.1 [facility] Comment on above: Performed By: #### C BC #### [facility] [address] [place] [address] Dr. Jessie Lomax Basophils/100 WBC (Bld) 0.5 % Normal 0.2-2.0 [facility] Comment on above: Performed By: #### C BC #### [facility] [address] [place] [address] Dr. Jessie Lomax EO # 0.0 103/ul Normal 0.0-0.7 [facility] Comment on above: Performed By: #### C BC #### [facility] [address] [place] [address] Dr. Jessie Lomax Eosinophils/100 WBC (Bld) 0.3 % Critically low 0.9-7.0 [facility] Comment on above: Performed By: #### C BC #### [facility] [address] [place] [address] Dr. Jessie Lomax Erythrocyte distribution width (RBC) [Ratio] 13.6 % Normal 11.0-15.0 [facility] Comment on above: Performed By: #### C BC #### [facility] [address] [place] [address] Dr. Jessie Lomax Hematocrit (Bld) [Volume fraction] 46.1 % Normal 42.0-54.0 [facility] Comment on above: Performed By: #### C BC #### [facility] [address] [place] [address] Dr. Jessie Lomax Hemoglobin (Bld) [Mass/Vol] 15.6 g/dL Normal 14.0-18.0 [facility] Comment on above: Performed By: #### C BC #### [facility] [address] [place] [address] Dr. Jessie Lomax IG # 0.07 10e3/ul Critically high 0.00-0.03 [facility] Comment on above: Performed By: #### C BC #### [facility] [address] [place] [address] Dr. Jessie Lomax IG % 0.6 % Critically high 0.0-0.5 [facility] Comment on above: Performed By: #### C BC #### [facility] [address] [place] [address] Dr. Jessie Lomax LYMPH # 2.0 103/ul Normal 1.2-3.8 [facility] Comment on above: Performed By: #### C BC #### [facility] [address] [place] [address] Dr. Jessie Lomax Lymphocytes/100 WBC (Bld) 16.0 % Critically low 20.5-60.0 [facility] Comment on above: Performed By: #### C BC #### [facility] [address] [place] [address] Dr. Jessie Lomax MANUAL DIFF REQ NO Normal [facility] Comment on above: Performed By: #### C BC #### [facility] [address] [place] [address] Dr. Jessie Lomax MCH (RBC) [Entitic mass] 31.7 pg Normal 25.9-34.0 [facility] Comment on above: Performed By: #### C BC #### [facility] [address] [place] [address] Dr. Jessie Lomax MCHC (RBC) [Mass/Vol] 33.8 g/dL Normal 29.9-35.2 [facility] Comment on above: Performed By: #### C BC #### [facility] [address] [address] [address] Jessie Lomax MCV (RBC) [Entitic vol] 93.7 fL Normal 80.0-94.0 [facility] Comment on above: Performed By: #### C BC #### [facility] [address] [address] [address] Jessie Lomax MONO # 0.8 103/ul Normal 0.3-0.8 [facility] Comment on above: Performed By: #### C BC #### [facility] [address] [place] [address] Dr. Jessie Lomax Monocytes/100 WBC (Bld) 6.2 % Normal 1.7-12.0 [facility] Comment on above: Performed By: #### C BC #### [facility] [address] [place] [address] Dr. Jessie Lomax NEUT # 9.5 103/ul Critically high 1.4-6.5 [facility] Comment on above: Performed By: #### C BC #### [facility] [address] [place] [address] Dr. Jessie Lomax Neutrophils/100 WBC (Bld) 76.4 % Critically high 43.0-75.0 [facility] Comment on above: Performed By: #### C BC #### [facility] [address] [place] [address] Dr. Jessie Lomax Platelet mean volume (Bld) [Entitic vol] 9.6 fL Normal 9.5-13.5 [facility] Comment on above: Performed By: #### C BC #### [facility] [address] [place] [address] Dr. Jessie Lomax PLT 338 103/ul Normal 150-450 [facility] Comment on above: Performed By: #### C BC #### [facility] [address] [place] [address] Dr. Jessie Lomax RBC 4.92 106/ul Normal 4.70-6.10 [facility] Comment on above: Performed By: #### C BC #### [facility] [address] [place] [address] Dr. Jessie Lomax WBC 12.4 103/ul Critically high 4.0-11.0 [facility] Comment on above: Performed By: #### C BC #### [facility] [address] [place] [address] Dr. Jessie Lomax [facility] SARS-CoV-2 (COVID-19) RNA YOLANDA+probe Ql (Unsp spec) Not detected Normal NOT DETECTED [facility] Comment on above: Result Comment: When [...] for this test is supported by the [employer] of Health and Human Service's declaration that [...] used). Performed By: #### C MP #### [facility] [address] [place] [address] Dr. Jessie Lomax PROF 14(COMP METB)on 022 Albumin [Mass/Vol] 3.5 g/dL Normal 3.4-5.0 [facility] Comment on above: Performed By: #### B [id number] #### [facility] [address] [place] [address] Dr. Jessie Lomax Albumin/Globulin [Mass ratio] 1.0 {ratio} Normal [facility] Comment on above: Performed By: #### B [id number] #### [facility] [address] [address] [address] Jessie Lomax ALP [Catalytic activity/Vol] 104 U/L Normal 46-116 [facility] Comment on above: Performed By: #### B [id number] #### [facility] [address] [address] [address] Jessie Lomax ALT [Catalytic activity/Vol] 21 U/L Normal 16-63 [facility] Comment on above: Performed By: #### B [id number] #### [facility] [address] [address] [address] Jessie Lomax Anion gap [Moles/Vol] 11.7 mmol/L Normal [facility] Comment on above: Performed By: #### B [id number] #### [facility] [address] [place] [address] Dr. Jessie Lomax AST [Catalytic activity/Vol] U/L Critically low 15-37 [facility] Comment on above: Performed By: #### B [id number] #### [facility] [address] [place] [address] Dr. Jessie Lomax Bilirubin [Mass/Vol] 0.2 mg/dL Normal 0.2-1.0 [facility] Comment on above: Performed By: #### B [id number] #### [facility] [address] [place] [address] Dr. Jessie Lomax Calcium [Mass/Vol] 8.9 mg/dL Normal 8.5-10.1 [facility] Comment on above: Performed By: #### B [id number] #### [facility] [address] [address] [address] Jessie Lomax Chloride [Moles/Vol] 99 mmol/L Normal 98-107 [facility] Comment on above: Performed By: #### B [id number] #### [facility] [address] [address] [address] Jessie Lomax CO2 [Moles/Vol] 30.4 mmol/L Normal 21.0-32.0 [facility] Comment on above: Performed By: #### B [id number] #### [facility] [address] [address] [address] Jessie Lomax Creatinine [Mass/Vol] 1.29 mg/dL Normal 0.70-1.30 [facility] Comment on above: Performed By: #### B [id number] #### [facility] [address] [address] [address] Jessie Lomax EGFR-AF SPANISH >60 Normal >=60 [facility] Comment on above: Performed By: #### B [id number] #### [facility] [address] [address] [address] Jessie Lomax EGFR-NON AF SPANISH 56 mL/min/1.73m2 Critically low >=60 [facility] Comment on above: Performed By: #### B [id number] #### [facility] [address] [address] [address] Jessie Lomax Globulin (S) [Mass/Vol] 3.4 g/dL Normal [facility] Comment on above: Performed By: #### B [id number] #### [facility] [address] [address] [address] Jessie Lomax Glucose [Mass/Vol] 310 mg/dL Critically high 74-106 [facility] Comment on above: Performed By: #### B [id number] #### [facility] [address] [address] [address] Jessie Lomax Potassium [Moles/Vol] 4.1 mmol/L Normal 3.5-5.1 [facility] [facility] Comment on above: Performed By: #### B [id number] #### [facility] [address] [address] [address] Jessie Lomax Protein [Mass/Vol] 6.9 g/dL Normal 6.4-8.2 [facility] Comment on above: Performed By: #### B [id number] #### [facility] [address] [address] [address] Jessie Lomax Sodium [Moles/Vol] 137 mmol/L Normal 136-145 [facility] Comment on above: Performed By: #### B [id number] #### [facility] [address] [place] [address] Dr. Jessie Lomax Urea nitrogen [Mass/Vol] 16.0 mg/dL Normal 7.0-18.0 [facility] Comment on above: Performed By: #### B [id number] #### [facility] [address] [place] [address] Dr. Jessie Lomax Urea nitrogen/Creatinine [Mass ratio] 12.4 mg/mg Normal [facility] Comment on above: Performed By: #### B [id number] #### [facility] [address] [place] [address] Dr. Jessie Lomax PROTIMEon 05-02-2022 INR Coag (PPP) [Relative time] {INR} Normal [facility] Comment on above: Performed By: #### T TYLER #### [facility] [address] [place] [address] Dr. Jessie Lomax INR GUIDELINES SEE BELOW Normal [facility] Comment on above: Result Comment: VANESSA RED INR: 2.0 - 3.0 CONDITIONS NOT LISTED BELOW 2.5 - 3.5 FOR PROSTHETIC HEART VALVE REPLACEMENT 2.5 - 3.5 RECURRENT THROMBOSIS Performed By: #### T TYLER #### [facility] [address] [place] [address] Dr. Jessie Lomax PT Coag (PPP) [Time] 9.8 s Normal 9.0-11.6 [facility] Comment on above: Performed By: #### T TYLER #### [facility] [address] [place] [address] Dr. Jessie Lomax PTTon 05-02-2022 aPTT Coag (Bld) [Time] 23.0 s Normal 22.3-36.2 [facility] Comment on above: Performed By: #### T TYLER #### [facility] [address] [place] [address] Dr. Jessie Lomax XR CHEST 1 Von [...] GERARD ESPANA Date: 2022-05-02 08:55 Normal [facility]17 SARS-CoV-2 (COVID-19) RNA YOLANDA+probe Ql (Unsp spec) Not detected Normal NOT DETECTED [facility] Comment on above: Result Comment: This test is not yet approved or cleared by the [place] FDA. When there are no FDA-approved or cleared tests available, and other criteria are met, FDA can make tests available under an emergency access mechanism called an Emergency Use Authorization (EUA). The EUA for this test is supported by the [employer] of Health and Human Service's (HHS's) declaration [...] SARS-CoV-2. Performed By: #### A CETON #### [facility] [address] [address] [address] Jessie Lomax CBC AUTO DIFFon 03-19-2022 BASO # 0.0 103/ul Normal 0.0-0.1 [facility] Comment on above: Performed By: #### C BC #### [facility] [address] [address] [address] Jessie Lomax Basophils/100 WBC (Bld) 0.4 % Normal 0.2-2.0 [facility] Comment on above: Performed By: #### C BC #### [facility] [address] [address] [address] Jessie Lomax EO # 0.0 103/ul Normal 0.0-0.7 [facility] Comment on above: Performed By: #### C BC #### [facility] [address] [place] [address] Dr. Jessie Lomax Eosinophils/100 WBC (Bld) 0.1 % Critically low 0.9-7.0 [facility] Comment on above: Performed By: #### C BC #### [facility] [address] [place] [address] Dr. Jessie Lomax Erythrocyte distribution width (RBC) [Ratio] 13.6 % Normal 11.0-15.0 [facility] Comment on above: Performed By: #### C BC #### [facility] [address] [place] [address] Dr. Jessie Lomax Hematocrit (Bld) [Volume fraction] 47.4 % Normal 42.0-54.0 [facility] Comment on above: Performed By: #### C BC #### [facility] [address] [place] [address] Dr. Jessie Lomax Hemoglobin (Bld) [Mass/Vol] 16.0 g/dL Normal 14.0-18.0 [facility] Comment on above: Performed By: #### C BC #### [facility] [address] [place] [address] Dr. Jessie Lomax IG # 0.03 10e3/ul Normal 0.00-0.03 [facility] Comment on above: Performed By: #### C BC #### [facility] [address] [place] [address] Dr. Jessie Lomax IG % 0.3 % Normal 0.0-0.5 [facility] Comment on above: Performed By: #### C BC #### [facility] [address] [place] [address] Dr. Jessie Lomax LYMPH # 0.5 103/ul Critically low 1.2-3.8 [facility] Comment on above: Performed By: #### C BC #### [facility] [address] [place] [address] Dr. Jessie Lomax Lymphocytes/100 WBC (Bld) 5.4 % Critically low 20.5-60.0 [facility] Comment on above: Performed By: #### C BC #### [facility] [address] [place] [address] Dr. Jessie Lomax MANUAL DIFF REQ NO Normal [facility] Comment on above: Performed By: #### C BC #### [facility] [address] [place] [address] Dr. Jessie Lomax MCH (RBC) [Entitic mass] 31.7 pg Normal 25.9-34.0 [facility] Comment on above: Performed By: #### C BC #### [facility] [address] [place] [address] Dr. Jessie Lomax MCHC (RBC) [Mass/Vol] 33.8 g/dL Normal 29.9-35.2 [facility] Comment on above: Performed By: #### C BC #### [facility] [address] [place] [address] Dr. Jessie Lomax MCV (RBC) [Entitic vol] 93.9 fL Normal 80.0-94.0 [facility] Comment on above: Performed By: #### C BC #### [facility] [address] [place] [address] Dr. Jessie Lomax MONO # 0.2 103/ul Critically low 0.3-0.8 [facility] Comment on above: Performed By: #### C BC #### [facility] [address] [place] [address] Dr. Jessie Lomax Monocytes/100 WBC (Bld) 2.4 % Normal 1.7-12.0 [facility] Comment on above: Performed By: #### C BC #### [facility] [address] [place] [address] Dr. Jessie Lomax NEUT # 9.1 103/ul Critically high 1.4-6.5 [facility] Comment on above: Performed By: #### C BC #### [facility] [address] [place] [address] Dr. Jessie Lomax Neutrophils/100 WBC (Bld) 91.4 % Critically high 43.0-75.0 [facility] Comment on above: Performed By: #### C BC #### [facility] [address] [address] [address] Jessie Lomax Platelet mean volume (Bld) [Entitic vol] 9.5 fL Normal 9.5-13.5 [facility] Comment on above: Performed By: #### C BC #### [facility] [address] [place] [address] Dr. Jessie Lomax PLT 303 103/ul Normal 150-450 [facility] Comment on above: Performed By: #### C BC #### [facility] [address] [address] [address] Jessie Lomax RBC 5.05 106/ul Normal 4.70-6.10 [facility] Comment on above: Performed By: #### C BC #### [facility] [address] [place] [address] Dr. Jessie Lomax WBC 10.0 103/ul Normal 4.0-11.0 [facility] Comment on above: Performed By: #### C BC #### [facility] [address] [place] [address] Dr. Jessie Lomax Covid-19 PCR ([facility])on SARS-CoV-2 (COVID-19) RNA YOLANDA+probe Ql (Unsp spec) Not detected Normal NOT DETECTED [facility] Comment on above: Result Comment: When [...] for this test is supported by the [place] of Health and Human Service's declaration that [...] used). Performed By: #### B [id number] #### [facility] [address] [place] [address] Dr. Jessie Lomax PROF 14(COMP METB)on 022 Albumin [Mass/Vol] 3.9 g/dL Normal 3.4-5.0 [facility] Comment on above: Performed By: #### C BC #### [facility] [address] [place] [address] Dr. Jessie Lomax Albumin/Globulin [Mass ratio] 1.1 {ratio} Normal [facility] Comment on above: Performed By: #### C BC #### [facility] [address] [place] [address] Dr. Jessie Lomax ALP [Catalytic activity/Vol] 81 U/L Normal 46-116 [facility] Comment on above: Performed By: #### C BC #### [facility] [address] [place] [address] Dr. Jessie Lomax ALT [Catalytic activity/Vol] 26 U/L Normal 16-63 [facility] Comment on above: Performed By: #### C BC #### [facility] [address] [place] [address] Dr. Jessie Lomax Anion gap [Moles/Vol] 14.5 mmol/L Normal [facility] Comment on above: Performed By: #### C BC #### [facility] [address] [place] [address] Dr. Jessie Lomax AST [Catalytic activity/Vol] 7 U/L Critically low 15-37 [facility] Comment on above: Performed By: #### C BC #### [facility] [address] [place] [address] Dr. Jessie Lomax Bilirubin [Mass/Vol] 0.3 mg/dL Normal 0.2-1.0 [facility] Comment on above: Performed By: #### C BC #### [facility] [address] [place] [address] Dr. Jessie Lomax Calcium [Mass/Vol] 9.2 mg/dL Normal 8.5-10.1 [facility] Comment on above: Performed By: #### C BC #### [facility] [address] [address] [address] Jessie Lomax Chloride [Moles/Vol] 101 mmol/L Normal 98-107 [facility] Comment on above: Performed By: #### C BC #### [facility] [address] [address] [address] Jessie Lomax CO2 [Moles/Vol] 26.1 mmol/L Normal 21.0-32.0 [facility] Comment on above: Performed By: #### C BC #### [facility] [address] [place] [address] Dr. Jessie Lomax Creatinine [Mass/Vol] 1.50 mg/dL Critically high 0.70-1.30 [facility] Comment on above: Performed By: #### C BC #### [facility] [address] [place] [address] Dr. Jessie Lomax EGFR-AF SPANISH 57 mL/min/1.73m2 Critically low >=60 [facility] Comment on above: Performed By: #### C BC #### [facility] [address] [place] [address] Dr. Jessie Lomax EGFR-NON AF SPANISH 47 mL/min/1.73m2 Critically low >=60 [facility] Comment on above: Performed By: #### C BC #### [facility] [address] [place] [address] Dr. Jessie Lomax Globulin (S) [Mass/Vol] 3.4 g/dL Normal [facility] Comment on above: Performed By: #### C BC #### [facility] [address] [address] [address] Jessie Lomax Glucose [Mass/Vol] 264 mg/dL Critically high 74-106 [facility] Comment on above: Performed By: #### C BC #### [facility] [address] [place] [address] Dr. Jessie Lomax Potassium [Moles/Vol] 4.6 mmol/L Normal 3.5-5.1 [facility] Comment on above: Performed By: #### C BC #### [facility] [address] [address] [address] Jessie Lomax Protein [Mass/Vol] 7.3 g/dL Normal 6.4-8.2 [facility] Comment on above: Performed By: #### C BC #### [facility] [address] [address] [address] Jessie Lomax Sodium [Moles/Vol] 137 mmol/L Normal 136-145 [facility] Comment on above: Performed By: #### C BC #### [facility] [address] [address] [address] Jessie Lomax Urea nitrogen [Mass/Vol] 20.0 mg/dL Critically high 7.0-18.0 [facility] Comment on above: Performed By: #### C BC #### [facility] [address] [address] [address] Jessie Lomax Urea nitrogen/Creatinine [Mass ratio] 13.3 mg/mg Normal [facility] Comment on above: Performed By: #### C BC #### [facility] [id number] Jessie Lomax XR CHEST 1 Von [...] GERARD WOLFF Date: 2022-03-19 00:11 Normal [facility] Cardiovascular Lab Reporton 12-29-2018 Cardiovascular Lab Report [facility] Patient Name: [facility] MR #: [id number] Physician: Calli Loyola, Department of M.D. Medicine Service Date: 12/28/2018 Division of Birthdate: 1960 Cardiology Room #: Adult Cardiovascular Services [address] [address] [id number] Cardiovascular Laboratory Report FINAL IMPRESSIONS: 1. Nonobstructive [...] 6. Follow up with me in the [facility] in the next 2-4 weeks. 7. Follow up with Dr. Cowart as scheduled. PROCEDURES: Ultrasound-guided access to the right common femoral vein and artery, right heart catheterization, bilateral selective coronary angiography, left heart catheterization, left ventriculography, limited femoral angiogram, placement of a 6-Tristanian MynxGrip closure device. METHODS: After risks, benefits, and alternatives were explained, written informed consent was obtained. The patient was prepped and draped in usual sterile fashion over the right groin. Using 1% lidocaine solution, local infiltration anesthesia was achieved. Using a modified Seldinger technique and under ultrasound guidance access to the right common femoral vein and artery was obtained and 6-Tristanian 11 cm sheath placed in each. Limited [...] the procedure. All catheters were removed. A 6-Tristanian MynxGrip closure device was deployed per protocol [...] Loyola M.D. Date Trans: 12/29/2018 04:14 Marek/rosetta [id number] cc: Calli Loyola M.D. [address] [place] [address] BRYON COWART, [facility] Vital Signs Date Time Vital Sign Value Performing Clinician Facility 11-11-2023 14:15-0400 Body height 175.26 cm [facility] 11-11-2023 14:15-0400 Body mass index (BMI) [Ratio] 37 kg/m2 [facility] 11-11-2023 14:15-0400 Body weight 113.85 kg [facility] 11-11-2023 14:15-0400 Diastolic blood pressure 102 mm[Hg] [facility] 11-11-2023 14:15-0400 Heart rate 96 /min [facility] 11-11-2023 14:15-0400 SaO2% (BldA) [Mass fraction] 92 % [facility] 11-11-2023 14:15-0400 Systolic blood pressure 149 mm[Hg] [facility] 09-15-2023 11:02-0500 Body height 175.26 cm [facility] 09-15-2023 11:02-0500 Body mass index (BMI) [Ratio] 38.2 kg/m2 [facility] 09-15-2023 11:02-0500 Body weight 117.59 kg [facility] 09-15-2023 11:02-0500 Diastolic blood pressure 87 mm[Hg] [facility] 09-15-2023 11:02-0500 Heart rate 113 /min [facility] 09-15-2023 11:02-0500 SaO2% (BldA) [Mass fraction] 97 % [facility] 09-15-2023 11:02-0500 Systolic blood pressure 158 mm[Hg] [facility] 06-27-2023 11:00-0500 Body height 175.26 cm Bryon Cowart Other [facility] Other 06-27-2023 11:00-0500 Body mass index (BMI) [Ratio] 37.8 kg/m2 Bryon Cowart Other [facility] Other 06-27-2023 11:00-0500 Body weight 116.12 kg Bryon Cowart Other [facility] Other 06-27-2023 11:00-0500 Diastolic blood pressure 88 mm[Hg] Bryon Cowart Other [facility] Other 06-27-2023 11:00-0500 SaO2% (BldA) [Mass fraction] 92 % Bryon Cowart Other [facility] Other 06-27-2023 11:00-0500 Systolic blood pressure 134 mm[Hg] Bryon Cowart Other [facility] Other 03-03-2023 15:00-0400 Body height 175.26 cm Bryon Cowart Other [facility] Other 03-03-2023 15:00-0400 Body mass index (BMI) [Ratio] 38.69 kg/m2 Bryon Cowart Other [facility] Other 03-03-2023 15:00-0400 Body weight 118.84 kg Bryon Cowart Other [facility] Other 03-03-2023 15:00-0400 Diastolic blood pressure 82 mm[Hg] Bryon Cowart Other [facility] Other 03-03-2023 15:00-0400 Systolic blood pressure 157 mm[Hg] Bryon Cowart Other [facility] Other 12-30-2022 14:30-0400 Body height 175.26 cm Bryon Cowart Other [facility] Other 12-30-2022 14:30-0400 Body mass index (BMI) [Ratio] 39.57 kg/m2 Bryon Cowart Other [facility] Other 12-30-2022 14:30-0400 Body weight 121.56 kg Bryon Cowart Other [facility] Other 12-30-2022 14:30-0400 Diastolic blood pressure 85 mm[Hg] Bryon Cowart Other [facility] Other 12-30-2022 14:30-0400 SaO2% (BldA) [Mass fraction] 95 % Bryon Cowart Other [facility] Other 12-30-2022 14:30-0400 Systolic blood pressure 147 mm[Hg] Bryon Cowart Other [facility] Other 09-02-2022 14:00-0500 Body height 175.26 cm Bryon Cowart Other [facility] Other 09-02-2022 14:00-0500 Body mass index (BMI) [Ratio] 38.69 kg/m2 Bryon Cowart Other [facility] Other 09-02-2022 14:00-0500 Body weight 118.84 kg Bryon Cowart Other [facility] Other 09-02-2022 14:00-0500 Diastolic blood pressure 84 mm[Hg] Bryon Cowart Other [facility] Other 09-02-2022 14:00-0500 Respiratory rate 60 /min Bryon Cowart Other [facility] Other 09-02-2022 14:00-0500 SaO2% (BldA) [Mass fraction] 91 % Bryon Cowart Other [facility] Other 09-02-2022 14:00-0500 Systolic blood pressure 142 mm[Hg] Bryon Cowart Other [facility] Other Encounters Encounter Date Encounter Type Care Provider Facility Start: 05-08-2024 ambulatory SARAH A INNA Facili ty:[facility] Start: 04-24-2024 End: 04-24-2024 ambulatory ELECTRO TECH SARAH A [facility]NA Facility:[facility] Start: 01-24-2024 End: 01-24-2024 Lab Drop off SARAH A INNA [facility] Start: 01-24-2024 End: 01-24-2024 ambulatory ELECTRO TECH SARAH A INNA Facility:[facility] Start: 01-18-2024 End: 01-18-2024 ambulatory ELECTRO TECH SARAH A INNA Facility:[facility] Start: 12-28-2023 End: 12-28-2023 ambulatory ELECTRO TECH SARAH A [facility]NA Facility:[facility] Start: 12-26-2023 ambulatory ELECTRO TECH SARAH INNA Faci lity:[facility] Start: 11-11-2023 End: 11-11-2023 ambulatory [facility] Work Phone: Start: 11-11-2023 End: 11-11-2023 Patient encounter procedure [facility] Work Phone: Start: 10-03-2023 Non-patient / Non-visit [facility] [employer] Work Phone: Start: 09-15-2023 End: 09-15-2023 Patient encounter procedure [facility] Work Phone: Start: 08-26-2023 End: 08-26-2023 ambulatory Bryon Cowart Other [facility] Other Start: 08-26-2023 Telephone encounter Bryon Cowart [facility] Start: 08-04-2023 End: 08-04-2023 ambulatory Bryon Cowart Other [facility] Other Start: 08-04-2023 Telephone encounter Bryon Cowart [facility] Start: 08-03-2023 End: 08-03-2023 ambulatory Bryon Cowart Other [facility] Other Start: 08-03-2023 Telephone encounter Bryon Cowart [facility] Start: 07-19-2023 End: 07-19-2023 ambulatory Bryon Cowart Other [facility] Other Start: 07-19-2023 Telephone encounter Bryon Cowart [facility] Start: 07-12-2023 End: 07-12-2023 ambulatory Bryon Cowart Other [facility] Other Start: 07-12-2023 Telephone encounter Bryon Cowart [facility] Start: 07-07-2023 End: 07-07-2023 ambulatory Bryon Cowart Other [facility] Other Start: 07-07-2023 Telephone encounter Bryon Cowart [facility] Start: 07-04-2023 End: 07-04-2023 ambulatory Bryon Cowart Other [facility] Other Start: 07-04-2023 Telephone encounter Bryon Cowart [facility] Start: 06-30-2023 End: 06-30-2023 ambulatory Bryon Cowart Other [facility] Other Start: 06-30-2023 Telephone encounter Byron Cowart [facility] Start: 06-27-2023 End: 06-27-2023 ambulatory Bryon Cowart Other [facility] Other Start: 06-27-2023 Office outpatient vi sit 25 minutes Bryon Cowart [facility] Start: 06-27-2023 Telephone encounter Bryon Cowart [facility] Start: 06-24-2023 End: 06-24-2023 ambulatory Bryon Cowart Other [facility] Other Start: 06-24-2023 Telephone encounter Bryon Cowart [facility] Start: 06-13-2023 End: 06-13-2023 ambulatory Bryon Cowart Other [facility] Other Start: 06-13-2023 Telephone encounter Bryon Cowart [facility] Start: 06-03-2023 End: 06-03-2023 ambulatory Bryon Cowart Other [facility] Other Start: 06-03-2023 Telephone encounter Bryon Cowart [facility] Start: 05-31-2023 End: 05-31-2023 ambulatory Bryon Cowart Other [facility] Other Start: 05-31-2023 Telephone encounter Bryon Cowart [facility] Start: 05-09-2023 End: 05-09-2023 ambulatory Bryon Cowart Other [facility] Other Start: 05-09-2023 Telephone encounter Bryon Cowart [facility] Start: 04-25-2023 Telephone encounter Capo Meraz RN Pulmonary Medicine Comment on above: Closing Referral Start: 04-13-2023 End: 04-13-2023 ambulatory Bryon Cowart Other [facility] Other Start: 04-13-2023 Telephone encounter Bryon Cowart [facility] Start: 03-14-2023 End: 03-14-2023 ambulatory Bryon Cowart Other [facility] Other Start: 03-14-2023 Telephone encounter Bryon Cowart [facility] Start: 03-11-2023 End: 03-11-2023 ambulatory Bryon Cowart Other [facility] Other Start: 03-11-2023 Telephone encounter Bryon Cowart [facility] Start: 03-10-2023 Telephone encounter Capo Meraz RN Pulmonary Medicine Comment on above: Follow up on Lung Tr ansplant Referral Start: 03-08-2023 End: 03-08-2023 ambulatory Bryon Cowart Other [facility] Other Start: 03-08-2023 Telephone encounter Bryon Cowart [facility] Start: 03-03-2023 End: 03-03-2023 ambulatory Bryon Cowart Other [facility] Other Start: 03-03-2023 Office outpatient vi sit 15 minutes Bryon Cowart [facility] Start: 02-10-2023 End: 02-10-2023 ambulatory Bryon Cowart Other [facility] Other Start: 02-10-2023 Telephone encounter Bryon Cowart [facility] Start: 12-30-2022 End: 12-30-2022 ambulatory Bryon Cowart Other [facility] Other Start: 12-30-2022 Office outpatient vi sit 25 minutes Bryon Cowart [facility] Start: 12-30-2022 Telephone encounter Bryon Cowart [facility] Start: 12-22-2022 End: 12-22-2022 ambulatory Bryon Cowart Other [facility] Other Start: 12-22-2022 Telephone encounter Bryon Cowart [facility] Start: 11-12-2022 End: 11-12-2022 ambulatory Bryon Cowart Other [facility] Other Start: 11-12-2022 Telephone encounter Bryon Cowart [facility] Start: 10-12-2022 End: 10-12-2022 ambulatory Rubén Pina Other [facility] Other Start: 10-12-2022 Telephone encounter Rubén Pina [facility] Start: 10-05-2022 End: 10-05-2022 ambulatory Bryon Cowart Other [facility] Other Start: 10-05-2022 Telephone encounter Bryon Cowart [facility] Start: 10-03-2022 End: 10-04-[address] BRYON COWART Facility:[facility] Start: 09-27-2022 End: 09-27-2022 ambulatory Bryon Cowart Other [facility] Other Start: 09-27-2022 Telephone encounter Bryon Cowart [facility] Start: 09-15-2022 End: 09-15-2022 ambulatory Bryon Cowart Other [facility] Other Start: 09-15-2022 Telephone encounter Bryon Cowart [facility] Start: 09-02-2022 End: 09-02-2022 ambulatory Bryon Cowart Other [facility] Other Start: 09-02-2022 Office outpatient vi sit 15 minutes Bryon Cowart [facility] Start: 08-29-2022 End: 08-30-[address] EVERETTE MONTAGUE . Facility:[facility] Start: 08-20-2022 End: 08-20-2022 ambulatory Bryon Cowart Other [facility] Other Start: 08-20-2022 Telephone encounter Bryon Cowart [facility] Start: 08-17-2022 End: 08-17-2022 ambulatory SHAIKH Jose BANDA Facility:[facility] Start: 08-17-2022 ambulatory VANDA GONZALEZ . Facility :[facility] Start: 08-10-2022 End: 08-11-2022 ambulatory VANDA GONZALEZ . Facility:[facility] Start: 08-09-2022 End: 08-09-2022 ambulatory Bryon Cowart Other [facility] Other Start: 08-09-2022 Telephone encounter Bryon Cowart [facility] Start: 07-22-2022 End: 07-22-2022 ambulatory Bryon Cowart Other [facility] Other Start: 07-22-2022 Telephone encounter Bryon Cowart [facility] Start: 07-01-2022 End: 07-02-[address] [...] Update Start: 11-04-2021 Telephone encounter Molly trinidad APRN.ELECTRO TECH Work Phone: Pulmonary Medicine Comment on above: Missed appointments Start: 11-03-2021 Orders Only Molly aguirre RIB SAWYER.ELECTRO TECH Work Phone: Pulmonary Medicine Comment on above: Chronic obstructive pulmonary disease, unspecified COPD type (HCC) (Primary Dx); 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) Start: 12-28-2018 End: 12-29-2018 Patient encounter procedure CALLI LOYOLA Facility:[facility] Procedures Date Procedure Procedure Detail Performing Clinician Cardiac catheter (physical object) SARAH KEITH Comment on above: 2022 Plan of Treatment Date Care Activity Detail Author Start: 01-29-2025 ambulatory Ambulatory Facility: [facility] Start: 03-18-2023 Influenza vaccination C [facility] Start: 03-24-2022 Hepatitis B surface antibody level LDL CHOLESTEROL [facility] Start: 03-18-2022 Influenza vaccination INFLUENZ A (Season Ended) [facility] Start: 11-04-2021 End: 01-04-2022 HEPATITIS A ANTIBODY, IGG HEPATITIS A ANTIBODY, IGG Lab Routine Chronic obstructive pulmonary disease, unspecified COPD type (HCC) Lung transplant candidate Expected: 11/04/2021, Expires: 01/04/2022 [facility] Work Phone: Comment on above: Expected: 11/04/2021 , Expires: 01/04/2022 Start: 11-03-2021 End: 11-03-2022 ARTERIAL BLOOD GASES ARTERIAL BLOOD GASES Lab Routine Jbout-5-uxukhdmqwom deficiency (HCC) Expected: 11/03/2021, Expires: 11/03/2022 [facility] Work Phone: Comment on above: Expected: 11/03/2021 , Expires: 11/03/2022 Start: 11-04-2014 PROSTATE CANCER SCREENING DISCUSSION PROSTATE CANCER SCREENING DISCUSSION [facility] Start: 11-04-2009 SHINGRIX VACCINE (1 of 2) SHINGRIX VACCINE (1 of 2) [facility] Start: 11-04-2004 COLOGUARD (FIT-DNA) COLOGUARD (FIT-D NA) [facility] Start: 11-04-2004 Colonoscopy COLONOSCOPY [facility] Start: 11-04-2004 COLORECTAL CANCER SCREENING COLORECTAL CANCER SCREENING [facility] Start: 11-04-[address] COLONOGRAPHY [facility] Start: 11-04-2004 FECAL OCCULT BLOOD FECAL OCCULT BLOO D [facility] Start: 11-04-2004 SIGMOIDOSCOPY SIGMOIDOSCOPY [facility] Start: 11-04-1989 Zoledronic acid therapy ALPHA- 1 ANTITRYPSIN DEFICIENCY SCREENING [facility] Start: 11-04-1978 ADULT PREVNAR-13 ADULT PREVNAR-13 Cl [facility] Start: 11-04-1978 HEPATITIS A (1 of 2 - Risk 2-dose series) HEPATITIS A (1 of 2 - Risk 2-dose series) [facility] Start: 11-04-1978 Hepatitis A Vaccine (1 of 2 - Risk 2-dose series) Hepatitis A Vaccine (1 of 2 - Risk 2-dose series) [facility] Start: 11-04-1978 SHINGRIX VACCINE (1 of 2) SHINGRIX VACCINE (1 of 2) [facility] Start: 11-04-1978 TWO PNEUMOVAX 5 YEAR S APART PRIOR TO AGE 65 (#1) TWO PNEUMOVAX 5 YEARS APART PRIOR TO AGE 65 (#1) [facility] Start: 11-04-1978 Urine microalbumin profile [facility] Start: 11-04-1977 ANNUAL PCP TEAM BOY'S ADVISER SARAH DISEASE VISIT ANNUAL PCP TEAM CHRONIC DISEASE VISIT [facility] Start: 11-04-1977 BP CONTROLLED (<130/80) BP CONTROLLE D (<130/80) [facility] Start: 11-04-1969 3 comp foot exam completed DIABETIC FOOT EXAM [facility] Start: 11-04-1969 Hepatitis B screening URINE ALBUMIN:CREATININE RATIO [facility] Start: 11-04-1969 Hepatitis C antibody , confirmatory test DILATED RETINAL EXAM [facility] Start: 11-04-1965 PNEUMOCOCCAL (1 - PCV) PNEUMOCOCCAL (1 - PCV) [facility] Start: 11-04-1965 Pneumococcal vaccination Pneum ococcal Vaccine (1 - PCV) [facility] Start: 11-04-1964 COVID-19 VACCINE (1) COVID-19 VACCIN E (1) [facility] Start: 11-04-1964 Hemoglobin A1c/Hemoglobin.total in Blood HBA1C [facility] Start: 11-04-1960 HEPATITIS A (1 of 2 - Risk 2-dose series) HEPATITIS A (1 of 2 - Risk 2-dose series) [facility] Start: 05-06-1960 COVID-19 VACCINE (#1) COVID-19 VACCI NE (#1) [facility] Immunizations Immunization Date Immunization Notes Care Provider Yvette iniguez 05-16-2020 influenza virus vaccine, unspecified formulation Capo Meraz RN [facility] 05-10-2018 influenza virus vaccine, unspecified formulation SARAH KEITH [facility] 05-10-2018 pneumococcal conjuga te vaccine, 13 valent SARAH KEITH [facility] Payers Date Payer Category Payer Medicare [id number] 2018 Unknown [employer] PPO [id number] 2018-Present [phone] [address] [place] [address] PPO [id number] 2018 Unknown [employer]TH[employer] PPO [id number] 2018-Present [phone] [address] [place] [address] PPO [id number] 1959 Unknown [id number] 2.16.840.1.169456.3.579.2. 647 1959 Unknown [id number] 2.16.840.1.714152.3.579.2. 593 1959 Unknown [id number] 2.16.840.1.557260.3.579.2. 593 1959 Unknown [id number] 2.16.840.1.732210.3.579.2. 593 1959 Unknown [id number] 2.16.840.1.026464.3.579.2. 593 1959 Unknown [id number] 2.16.840.1.386196.3.579.2. 593 1959 Unknown [id number] 2.16.840.1.215999.3.579.2. 593 1959 Unknown [id number] 2.16.840.1.030770.3.579.2. 593 1959 Unknown [id number] 2.16.840.1.755243.3.579.2. 593 1959 Unknown [id number] 2.16.840.1.879676.3.579.2. 593 1959 Unknown [id number] 2.16.840.1.137402.3.579.2. 593 1959 Unknown [id number] 2.16.840.1.965100.3.579.2. 593 1959 Unknown [id number] 2.16.840.1.469898.3.579.2. 727 1959 Unknown [id number] 2.16.840.1.087549.3.579.2. 727 1959 Unknown [id number] 2.16.840.1.269851.3.579.2. 727 1959 Unknown [id number] 2.16.840.1.136909.3.579.2. 727 1959 Unknown [id number] 2.16.840.1.821554.3.579.2. 727 1959 Unknown [id number] 2.16.840.1.913305.3.579.2. 727 1959 Unknown [id number] 2.16.840.1.484346.3.579.2. 727 1959 Unknown [id number] 2.16.840.1.952386.3.579.2. 727 1959 Private Health Insurance [id number] .[id number] 1959 Self-pay [id number] 1959 Self-pay 1959 Unknown [id number] 1959 Unknown [id number] Medicare [id number] .[id number] Unknown [id number] Social History Date Type Detail Facility Tobacco smoking stat [facility] Tobacco smoking consumption unknown [facility] Work Phone: Start: 1960 Sex Assigned At Not on file C [facility] Start: 10-24-2021 End: 11-03-2021 Exposure to SARS-CoV-2 (event) Not sure [facility] Work Phone: Start: 03-18-2021 Sex Assigned At F [facility] Start: 03-18-2021 History of Social function [facility] National Score (1-10 0), lower number is lower risk Not on file [facility] Comment on above: Patient is a former 2 pack a day smoker. Quit over 15 years ago. Start: 03-17-2021 Gender identity Identifies as male gender (finding) [facility] Start: 03-17-2021 Sexual orientation Heterosexual (fin ding) [facility] Start: 06-27-2023 End: 01-24-2024 Tobacco smoking status NHIS Ex-smoker (finding) [facility] Comment on above: Patient is a former 2 pack a day smoker. Quit over 15 years ago. Start: 1960 Sex Assigned At Male F [facility] Clinical Notes 11-04-2021 to 01-24-2024 Note [...] numbers. This can be done either in [place] ([place] or metric measurements. Note that charts and online BMI calculators are available to help you find your BMI quickly and easily without having to do these calculations yourself. To calculate your BMI in [place] ([place] measurements: 1. Measure your weight in [...] for Disease Control and Prevention: www.cdc.gov ? [place] Heart Association: www.heart.org ? National Heart, Lung, and Blood [place]: www.nhlbi.nih.gov Summary ? Body mass index (BMI) is a number that is calculated from a person's weight and height. ? BMI may help estimate how much of a person's weight is composed of fat. BMI can help identify those who may be at higher risk for certain medical problems. ? BMI can be measured using [place] measurements or metric measurements. ? BMI charts are used to identify whether you are underweight, normal weight, overweight, or obese. This information is not intended to replace advice given to you by your health care provider. Make sure you discuss any questions you have with your health care provider. Document Revised: 03/26/2020 Document Reviewed: 02/01/2020 [id number] Patient Education ? 2022 [facility]. Endocrinology Diabetes Mellitus and Standards of Medical Care Living with and managing diabetes (diabetes mellitus) can be complicated. Your diabetes treatment may be managed by a team of health care providers, including: ? A physician who specializes in diabetes (quantitative consultant). You might also have visits with a nurse practitioner or physician stores assistant. ? Nurses. ? A registered dietitian. ? A certified diabetes care and education faculty member. ? An staffing specialist. ? A pharmacist. ? An eye doctor. ? A plant technical specialist (instrument technician helper). ? A dental care provider. ? A primary care provider. ? A mental health care provider. How to manage your diabetes You (more content not included)... [facility] 01-24-2024 Note Patient Education Endocrinology Preventing Diabetes [...] To avoid foot (more content not included)... [facility] 01-18-2024 Note Patient Education Mental and Behavioral [...] (Inserted Image. Ludivina (more content not included)... [facility] 08-26-2023 Evaluation note Encounter Date Diagnosis Assessment Notes Aug, Anxiety, generalized (ICD-10 - F41.1) [facility] [employer] Other 01-18-2024 Evaluation note* Encounter Date Diagnosis Assessment Notes Treatment Notes Treatment Clinical Notes Jul, Acute cervical radiculopathy (ICD-10 - M54.12) [facility] Other 12-26-2023 Evaluation note* Encounter Date Diagnosis Assessment Notes Treatment Notes Treatment Clinical Notes Jun, Acute cervical radiculopathy (ICD-10 - M54.12) [facility] Other 12-11-2023 Evaluation note* Encounter Date Diagnosis [...] F41.1) Chronic problem that is stable presently. [facility] Other 12-08-2023 Evaluation note* Encounter Date Diagnosis Assessment Notes Treatment Notes Treatment Clinical Notes Jun, Anxiety, generalized (ICD-10 - F41.1) [facility] Other 11-17-2023 Evaluation note* Encounter Date Diagnosis Assessment Notes Treatment Notes Treatment Clinical Notes May, Acute cervical radiculopathy (ICD-10 - M54.12) [facility] Other 11-14-2023 Evaluation note* Encounter Date Diagnosis Assessment Notes Treatment Notes Treatment Clinical Notes May, Anxiety, generalized (ICD-10 - F41.1) May, Acute cervical radiculopathy (ICD-10 - M54.12) [facility] Other 10-23-2023 Evaluation note* Encounter Date Diagnosis Assessment Notes Treatment Notes Treatment Clinical Notes Apr, Acute cervical radiculopathy (ICD-10 - M54.12) [facility] Other 10-09-2023 Miscellaneous Notes* Telephone Encounter - [...] any questions. Capo Meraz RN, BSN Pre-Lung Stage Producer documented [facility]* Encounter Date Diagnosis Assessment Notes Treatment Notes Treatment Clinical Notes Mar, Acute cervical radiculopathy (ICD-10 - M54.12) [facility] Other 08-28-2023 Evaluation note* Encounter Date Diagnosis Assessment Notes Treatment Notes Treatment Clinical Notes Feb, Acute cervical radiculopathy (ICD-10 - M54.12) [facility] Other 08-24-2023 Miscellaneous Notes* Telephone Encounter - [...] being full. Capo Meraz RN, BSN Pre-Lung Stage Producer documented in this encounterTri[facility] Evaluation note* Encounter Date Diagnosis Assessment Notes Treatment Notes Treatment Clinical Notes Feb, Type 2 diabetes mellitus with hyperglycemia, without long-term current use of insulin (ICD-10 - E11.65) [facility] Other 08-17-2023 Evaluation note* Encounter Date Diagnosis [...] lose weight to improved his severe COPD> [facility] Other 08-17-2023 Evaluation note* Encounter Date Diagnosis [...] lose weight to improve his lung function [facility] Other 07-27-2023 Evaluation note* Encounter Date Diagnosis Assessment Notes Treatment Notes Treatment Clinical Notes Jan, Acute cervical radiculopathy (ICD-10 - M54.12) [facility] Other 06-15-2023 Evaluation note* Encounter Date Diagnosis [...] the zephyr procedure can be started through [facility]. Keep appt in January w his office. [facility] [employer] Other 04-28-2023 Evaluation note* Encounter Date Diagnosis Assessment Notes Treatment Notes Treatment Clinical Notes Oct, Acute cervical radiculopathy (ICD-10 - M54.12) [facility] Other 02-16-2023 Evaluation note* Encounter Date Diagnosis Assessment Notes Treatment Notes Treatment Clinical Notes Aug, Chronic obstructive pulmonary disease (ICD-10 - J44.9) Continue present meds including lengthy steroid taper. Continue to followup w Dr. Gonzalez. He has not heard anything lately from [facility] transplant dept. [facility] Other 04-27-2022 Miscellaneous Notes* Telephone Encounter - [...] options. Maximino Callaway Transplant documented in this encounterTri[facility] Miscellaneous Notes* Telephone Encounter - Molly Gan APRN.CNP - 11/04/2021 2:27 PM EDT Patient not in attendance for lung transplant appts on 11/04. Attempted to contact patient to reschedule. VM left requesting call back. Molly Gan, MSN, RIB SAWYER-ELECTRO TECH Lung Stage Producer documented [facility] note Future Appointments Appointment Date:04/24/2024 01:40:00 PM Scheduled Provider:SARAH KEITH CNP Location:[facility] Appointment Type: Open Appointment Date:01/29/2025 01:00:00 PM Scheduled Provider: Location:[facility] Appointment Type:FM Medicare Wellness Subsequent Future Scheduled Tests Laboratory* HCV Antibody RFX to Quant PCR [facility] Chronic obstructive pulmonary disease, unspecified COPD type (HCC)- Primary Lung transplant candidate documented in this encounter [facility] note* Diagnosis 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 [facility] Other Evaluation note* Diagnosis Onset Date Resolution Status Skin lesion of right arm [facility] Work Phone: History general Narrative - Reported* Type Description Date Medical History Hypertension Medical History COPD Medical History RANCHO Medical History Centrilobular Emphysema Medical History Obesity Medical History Alpha 1 Antitrypsin Deficieny Medical History Depression Medical History Diabetes Type 2 Medical History GERD Medical History Essential Hypertension. Surgical History heart catheterization, no stent s Hospitalization History SEE ABOVE [facility] Other Hospital course Narrative No data available for this section [facility] No data available for this section [facility] No data available for this section [facility] Summary Purpose Family History No Family History [...] section and content) DATE CREATED AUTHOR 03/17/2019 [facility] DATE CREATED AUTHOR AUTHOR'S ORGANIZ ATION 10/06/2022 [facility] DATE CREATED AUTHOR AUTHOR'S ORGANIZ ATION 04/25/[address] [facility] DATE CREATED AUTHOR AUTHOR'S ORGANIZ ATION 04/26/2024 [facility] DATE CREATED AUTHOR AUTHOR'S ORGANIZ ATION 04/27/2024 [facility] Source Comments (unrecognize d section and content) In the event this informatio n is protected by the Federal Confidentiality of Alcohol and Drug Abuse Patient Records regulations: The Federal rules restrict any use of the information to criminally investigate or prosecute any alcohol or drug abuse patient.[facility] Hospital[facility] the event this information is protected by the Federal Confidentiality of Alcohol and Drug Abuse Patient Records regulations: The Federal rules restrict any use of the information to criminally investigate or prosecute any alcohol or drug abuse patient.[facility] HospitalIn the event this information is protected by the Federal Confidentiality of Alcohol and Drug Abuse Patient Records regulations: The Federal rules restrict any use of the information to criminally investigate or prosecute any alcohol or drug abuse patient.[facility] HospitalIn the event this information is protected by the Federal Confidentiality of Alcohol and Drug Abuse Patient Records regulations: The Federal rules restrict any use of the information to criminally investigate or prosecute any alcohol or drug abuse patient.[facility] HospitalIn the event this information is protected by the Federal Confidentiality of Alcohol and Drug Abuse Patient Records regulations: The Federal rules restrict any use of the information to criminally investigate or prosecute any alcohol or drug abuse patient.[facility] HospitalIn the event this information is protected by the Federal Confidentiality of Alcohol and Drug Abuse Patient Records regulations: The Federal rules restrict any use of the information to criminally investigate or prosecute any alcohol or drug abuse patient.[facility] Care Teams (unrecognized sec tion and content) Lacing Operator Relationship Specialty Start Date End Date Bryon Cowart MD [address] [place] [address] PCP - General Family Practice 03/12/20 Vanda Gonzalez, DO Referring Pulmonary and Critical Care Medicine 03/12/20 Lacing Operator Relationship Specialty Start Date End Date Bryon Cowart MD [address] [place] [address] PCP - General Family Practice 03/12/20 Vanda Gonzalez, DO Referring Pulmonary and Critical Care Medicine 03/12/20 Lacing Operator Relationship Specialty Start Date End Date Bryon Cowart MD [address] [place] [address] PCP - General Family Practice 03/12/20 Vanda Gonzalez, DO Referring Pulmonary and Critical Care Medicine 03/12/20 Lacing Operator Relationship Specialty Start Date End Date Bryon Cowart MD [address] [facility] [place] [phone] PCP - General Family Medicine 03/12/20 MartVanda FernandoDO [address] [facility] [place] [phone] Referring Pulmonary and Critical Care Medicine 03/12/20 [...] BE BASED ON THE PRIMARY CLINICAL RECORDS. [employer] provides no warranty or guarantee of the accuracy or completeness of information in this document.
[2024-04-28 16:43] LABS: Theophylline 15.6 ug/mL (10.0-20.0)
[2024-04-28] MEDS: AZITHROMYCIN 500 MG in 0.9 % SODIUM CHLORIDE 250 ML 250 MG IV (17:05)
[2024-04-28] MEDS: GLIPIZIDE 10 MG TABLET PO (17:08)
[2024-04-28 17:09] LABS: Glucometer 180 mg/dL (74-106)
[2024-04-28] MEDS: INSULIN ASPART 300 UNIT/3 ML PEN SUBQ ×2 (17:10→22:10)
[2024-04-28 22:04] LABS: Glucometer 257 mg/dL (74-106)
[2024-04-28] MEDS: VENLAFAXINE HCL ER 150 MG CAPSULE PO (22:08)
[2024-04-28] MEDS: METHYLPREDNISOLONE SOD SUCC PF 125 MG/2 ML VIAL 60 MG IVP (22:08)
[2024-04-28] MEDS: ACETAMINOPHEN 500 MG TABLET 1000 MG PO (22:09)
[2024-04-28] MEDS: LATANOPROST 0.005% 2.5 ML BOTTLE 1 DROP OP (22:18)
[2024-04-28] MEDS: THEOPHYLLINE ANHYDROUS 400 MG TAB.ER.24H PO (22:18)
[2024-04-29] VITALS (119 sets, daily range): BP systolic 106–164; BP diastolic 71–97; PULSE 58–98; TEMP 36.6–37.2; O2SAT 82–100
[2024-04-29] MEDS: METHYLPREDNISOLONE SOD SUCC PF 125 MG/2 ML VIAL 60 MG IVP ×4 (04:57→21:25)
[2024-04-29 05:23] LABS: Basophils Percent Auto 0.2 % (0.2-2.0); Hematocrit 46.6 % (42.0-54.0); Hemoglobin 15.3 g/dL (14.0-18.0); Immature Granulocytes Abs Auto 0.06 10^3/uL (0.00-0.03); Immature Granulocytes Pct Auto 0.6 % (0.0-0.5); Lymphocytes Absolute Auto 0.8 10^3/uL (1.2-3.8); Lymphocytes Percent Auto 8.5 % (20.5-60.0); Mean Corpuscular HGB Conc 32.8 g/dL (29.9-35.2); Mean Corpuscular Hemoglobin 27.8 pg (25.9-34.0); Mean Corpuscular Volume 84.6 fL (80.0-94.0); Mean Platelet Volume 9.2 fL (9.5-13.5); Monocytes Absolute Auto 0.1 10^3/uL (0.3-0.8); Monocytes Percent Auto 1.3 % (1.7-12.0); Neutrophils Absolute Auto 8.9 10^3/uL (1.4-6.5); Neutrophils Percent Auto 89.4 % (43.0-75.0); Platelet Count 398 10^3/uL (150-450); Red Blood Count 5.51 10^6/uL (4.70-6.10); Red Cell Distribution Width 13.7 % (11.0-15.0); White Blood Count 9.9 10^3/uL (4.0-11.0)
[2024-04-29] MEDS: IPRATROPIUM/ALBUTEROL SULFATE 3 ML AMPUL.NEB IH ×4 (05:25→20:04)
[2024-04-29 05:34] LABS: Anion Gap 17.8; BUN Creatinine Ratio 10.5; Carbon Dioxide 25.9 mmol/L (21.0-32.0); Chloride 100 mmol/L (98-107); Estimated GFR (African America >60 (>=60 mL/min/1.73m^2); Estimated GFR (Non-African Ame 59 (>=60 mL/min/1.73m^2); Glucose 251 mg/dL (74-106); Potassium 4.7 mmol/L (3.5-5.1); Sodium 139 mmol/L (136-145)
--- NOTE | 2024-04-29 06:02 | PC.NURSE ---
decreased oxygen to 2 lts, pt is currently wearing home cpap.
[2024-04-29 08:11] LABS: Glucometer 261 mg/dL (74-106)
[2024-04-29] MEDS: INSULIN ASPART 300 UNIT/3 ML PEN SUBQ ×3 (09:05→21:28)
[2024-04-29] MEDS: LISINOPRIL 5 MG TABLET 10 MG PO (09:07)
[2024-04-29] MEDS: VENLAFAXINE HCL ER 150 MG CAPSULE PO ×2 (09:07→21:25)
[2024-04-29] MEDS: ARIPIPRAZOLE 5 MG TABLET 10 MG PO (09:07)
[2024-04-29] MEDS: METOPROLOL SUCCINATE 25 MG TAB.ER.24H PO (09:07)
[2024-04-29] MEDS: OMEPRAZOLE 20 MG CAPSULE.DR PO (09:07)
[2024-04-29] MEDS: THEOPHYLLINE ANHYDROUS 400 MG TAB.ER.24H PO ×2 (09:08→21:25)
[2024-04-29] MEDS: GLIPIZIDE 10 MG TABLET PO ×2 (09:08→18:18)
[2024-04-29] MEDS: AZITHROMYCIN 500 MG in 0.9 % SODIUM CHLORIDE 250 ML 250 MG IV (09:08)
[2024-04-29] MEDS: CANAGLIFLOZIN 100 MG TABLET 300 MG PO (09:08)
--- NOTE | 2024-04-29 09:32 | P.PN_ITS ---
Progress Note: Subjective Subjective Interval history: Pt with some improvement but still with significant PIKE , increasing cough - still with sputum production. Not much improvement from previous day Exam Constitutional Vital Signs, click to edit/add: Last Vital Signs Temp 97.9 F 04/29/24 04:00 Pulse 89 04/29/24 05:25 Resp 24 H 04/29/24 05:25 BP 164/97 H 04/29/24 04:48 Pulse Ox 99 04/29/24 06:00 O2 Del Method Nasal Cannula 04/29/24 05:25 O2 Flow Rate 3 04/29/24 05:25 Documenting provider has reviewed patient's vital signs: yes Common normals: apparent distress (Mild conversational dyspnea, cough throughout eval) Chest Common normals: inspection of chest normal Respiratory Common normals: abnormal respiratory effort (Mild conversational dyspnea) Auscultation: rhonchi (Seems like louder rhonchi today but better air exchange), wheezes (Seems louder today but likely secondary to better air exchange) and diminished lung sounds; no egophony Cardio Common normals: regular rate, regular rhythm and no murmurs GI Common normals: Normal to inspection, nondistended, normoactive bowel sounds present, soft to palpation, non-tender and no hepatosplenomegaly Extremity Common normals: normal to inspection, full ROM, normal capillary refill and no clubbing, cyanosis or edema Progress Note: Objective Labs Labs: Short CBC 04/28/24 04/29/24 Range/Units 14:48 05:16 WBC 12.8 H 9.9 (4.0-11.0) 10^3/uL Hgb 15.2 15.3 (14.0-18.0) g/dL Hct 45.9 46.6 (42.0-54.0) % Plt Count 410 398 (150-450) 10^3/uL BMP 04/28/24 04/29/24 14:48 05:16 Sodium 135 L 139 Potassium 3.9 4.7 Chloride 96 L 100 Carbon Dioxide 29.6 25.9 BUN 12.0 13.0 Creatinine 1.12 1.24 Glucose 144 H 251 H Calcium 9.4 10.0 Liver Function 04/28/24 Range/Units 14:48 Total Bilirubin 0.5 (0.2-1.0) mg/dL AST 12 L (15-37) U/L ALT 20 (16-63) U/L Alkaline Phosphatase 123 H (46-116) U/L Albumin 3.5 (3.4-5.0) g/dL Progress Note: A&P Assessment and Plan (1) COPD exacerbation: (2) Heartburn: (3) Depression: Qualifiers: Active/Remission status: currently active Depression Type: major depressive disorder Major depression episode severity: unspecified Major depression recurrence: unspecified whether recurrent Qualified Code(s): F32.9 - Major depressive disorder, single episode, unspecified (4) Hypertension: Qualifiers: Hypertension type: primary hypertension Qualified Code(s): I10 - Essential (primary) hypertension (5) Type 2 diabetes mellitus: Qualifiers: Diabetes mellitus complication status: with hyperglycemia Diabetes mellitus mcfp insulin use: without mcfp use Qualified Code(s): E11.65 - Type 2 diabetes mellitus with hyperglycemia (6) Coronary artery disease: (7) Leukocytosis: (8) Hyponatremia: Plan Admission findings: Respiratory distress, leukocytosis, sputum production consistent with acute exacerbation of COPD secondary to acute bronchitis Acute exacerbation of COPD secondary to acute bronchitis: No significant improvement overnight, may be a little bit better air exchange, but still with labored breathing, increasing sputum production. Maintain current treatment plan, try to obtain sputum sample for analysis, still with significant hypoxia of 82% on 2 L with ambulation Fairly decently controlled diabetes mellitus-likely to be elevated throughout the admission, insulin sliding scale-maintain Hyponatremia-likely sugar related,-improved Depression and generalized anxiety disorder-continue with home medications Hypertension-continue with home medications-stable Admission status: Started patient off as observation, patient not significantly improved, still with persistent hypoxia with O2 sat of 82% on 2 L. With failing the observation time period, will change patient to inpatient status as medically necessary treatment will span 2 midnights ?
[2024-04-29] MEDS: CEFTRIAXONE 1,000 MG in 0.9 % SODIUM CHLORIDE 50 ML 100 MG IV (11:44)
[2024-04-29 11:46] LABS: Glucometer 188 mg/dL (74-106)
[2024-04-29 17:26] LABS: Glucometer 157 mg/dL (74-106)
[2024-04-29] MEDS: LATANOPROST 0.005% 2.5 ML BOTTLE 1 DROP OP (21:25)
[2024-04-29 21:38] LABS: Glucometer 285 mg/dL (74-106)
[2024-04-30] VITALS (19 sets, daily range): BP systolic 120–134; BP diastolic 72–82; PULSE 87–95; TEMP 36.6; O2SAT 91–97
[2024-04-30] MEDS: METHYLPREDNISOLONE SOD SUCC PF 125 MG/2 ML VIAL 60 MG IVP ×2 (04:05→08:04)
[2024-04-30] MEDS: IPRATROPIUM/ALBUTEROL SULFATE 3 ML AMPUL.NEB IH ×2 (05:05→10:02)
[2024-04-30 05:42] LABS: Basophils Percent Auto 0.1 % (0.2-2.0); Hematocrit 41.3 % (42.0-54.0); Hemoglobin 13.8 g/dL (14.0-18.0); Immature Granulocytes Abs Auto 0.12 10^3/uL (0.00-0.03); Immature Granulocytes Pct Auto 0.7 % (0.0-0.5); Lymphocytes Absolute Auto 1.1 10^3/uL (1.2-3.8); Lymphocytes Percent Auto 6.6 % (20.5-60.0); Mean Corpuscular HGB Conc 33.4 g/dL (29.9-35.2); Mean Corpuscular Hemoglobin 28.3 pg (25.9-34.0); Mean Corpuscular Volume 84.8 fL (80.0-94.0); Mean Platelet Volume 9.4 fL (9.5-13.5); Monocytes Absolute Auto 0.7 10^3/uL (0.3-0.8); Monocytes Percent Auto 4.1 % (1.7-12.0); Neutrophils Absolute Auto 14.7 10^3/uL (1.4-6.5); Neutrophils Percent Auto 88.5 % (43.0-75.0); Platelet Count 429 10^3/uL (150-450); Red Blood Count 4.87 10^6/uL (4.70-6.10); Red Cell Distribution Width 14.1 % (11.0-15.0); White Blood Count 16.6 10^3/uL (4.0-11.0)
[2024-04-30 05:54] LABS: Anion Gap 14.8; BUN Creatinine Ratio 15.8; Calcium 9.6 mg/dL (8.5-10.1); Chloride 101 mmol/L (98-107); Estimated GFR (African America >60 (>=60 mL/min/1.73m^2); Estimated GFR (Non-African Ame >60 (>=60 mL/min/1.73m^2); Glucose 189 mg/dL (74-106); Potassium 4.8 mmol/L (3.5-5.1); Sodium 137 mmol/L (136-145)
[2024-04-30 05:59] LABS: Theophylline 13.7 ug/mL (10.0-20.0)
[2024-04-30] MEDS: LISINOPRIL 5 MG TABLET 10 MG PO (08:03)
[2024-04-30] MEDS: THEOPHYLLINE ANHYDROUS 400 MG TAB.ER.24H PO (08:03)
[2024-04-30] MEDS: GLIPIZIDE 10 MG TABLET PO (08:03)
[2024-04-30] MEDS: CANAGLIFLOZIN 100 MG TABLET 300 MG PO (08:03)
[2024-04-30] MEDS: VENLAFAXINE HCL ER 150 MG CAPSULE PO (08:03)
[2024-04-30] MEDS: ARIPIPRAZOLE 5 MG TABLET 10 MG PO (08:03)
[2024-04-30] MEDS: OMEPRAZOLE 20 MG CAPSULE.DR PO (08:03)
[2024-04-30] MEDS: INSULIN ASPART 300 UNIT/3 ML PEN SUBQ (08:04)
[2024-04-30] MEDS: METOPROLOL SUCCINATE 25 MG TAB.ER.24H PO (08:04)
[2024-04-30] MEDS: AZITHROMYCIN 500 MG in 0.9 % SODIUM CHLORIDE 250 ML 250 MG IV (08:12)
--- NOTE | 2024-04-30 08:36 | P.DS_ITS ---
DS: Providers Provider Date of admission: 04/29/24 10:48 Primary care physician: Douglas Pacheco DO Consults: 04/28/24 16:05 Consult to Pharmacy Routine Consulting Provider: Reason for consultation: Please Rosenberg me when Med Rec is Updated Has provider been notified: No DS: Diagnosis Discharge Diagnosis (1) COPD exacerbation: (2) Heartburn: (3) Depression: Qualifiers: Active/Remission status: currently active Depression Type: major depressive disorder Major depression episode severity: unspecified Major depression recurrence: unspecified whether recurrent Qualified Code(s): F32.9 - Major depressive disorder, single episode, unspecified (4) Hypertension: Qualifiers: Hypertension type: primary hypertension Qualified Code(s): I10 - Essential (primary) hypertension (5) Type 2 diabetes mellitus: Qualifiers: Diabetes mellitus complication status: with hyperglycemia Diabetes mellitus termite treater insulin use: without termite treater use Qualified Code(s): E11.65 - Type 2 diabetes mellitus with hyperglycemia (6) Coronary artery disease: (7) Leukocytosis: (8) Hyponatremia: Plan Admission findings: Respiratory distress, leukocytosis, sputum production consistent with acute exacerbation of COPD secondary to acute bronchitis Acute exacerbation of COPD secondary to acute bronchitis: Improving at the time of discharge Fairly decently controlled diabetes mellitus-sugars elevated at the time of discharge secondary to steroids likely to improve as an outpatient Hyponatremia-likely sugar related, resolved at the time of discharge Depression and generalized anxiety disorder-continue with home medications Hypertension-continue with home medications-stable Admission status: Started patient off as observation, patient not significantly improved, still with persistent hypoxia with O2 sat of 82% on 2 L. With failing the observation time period, will change patient to inpatient status as medically necessary treatment will span 2 midnights ? ? DS: Summary Hospital Course Hospital Course: Patient who has had a recurrent admissions for oxygen dependent chronic hypoxic respiratory failure COPD, presented to the emergency room with increasing shortness of breath and cough, cough initially productive but unable to obtain sputum, patient with significant wheeze and shortness of breath and increasing oxygen requirement, he wears 2 L at home, has been able to be weaned back down to his baseline. Also admitted with tachycardia and uncontrolled hypertension those are improving at the time of discharge. Tachycardia up still somewhat li mazin secondary to the steroids and frequent aerosol treatments. His hyponatremia has resolved white blood cell count is back elevated again today, I suspect this is demargination from steroid use. He feels like he is improved and is back down to his baseline supplemental oxygen. Will discharge patient to home in improving condition. Medications see list. Follow-up with his PCP within the next week. Patient was initially started off as an observation patient, he did not improve significantly to the point that he could be discharged to home. On day 2 his lung exam was actually worse than the previous day. With increasing rhonchi and wheezing. He was still having increasing O2 requirement from his baseline chronic hypoxic respiratory failure. He was kept 1 additional day for further IV antibiotics and steroids, medically necessary treatment spanned 2 midnights, having failed initial observation status. Inpatient status currently Status at Discharge Overall status at discharge: patient is not back to baseline Time Spent with Patient Time attestation: Total time spent providing and/or coordinating discharge services: Time spent: greater than 30 minutes Exam Constitutional Vital Signs, click to edit/add: Last Vital Signs Temp 98 F 04/30/24 05:45 Pulse 95 H 04/30/24 05:45 Resp 20 04/30/24 05:45 BP 120/72 04/30/24 08:03 Pulse Ox 95 04/30/24 05:45 O2 Del Method Nasal Cannula 04/30/24 05:45 O2 Flow Rate 3 04/30/24 05:45 Documenting provider has reviewed patient's vital signs: yes Common normals: apparent distress (Mild conversational dyspnea, cough throughout eval) Chest Common normals: inspection of chest normal Respiratory Common normals: normal respiratory effort (Dyspnea has resolved) Auscultation: rhonchi (Much improved from previous day), wheezes (Improved from previous day) and diminished lung sounds; no egophony Cardio Common normals: regular rate, regular rhythm and no murmurs GI Common normals: Normal to inspection, nondistended, normoactive bowel sounds present, soft to palpation, non-tender and no hepatosplenomegaly Extremity Common normals: normal to inspection, full ROM, normal capillary refill and no clubbing, cyanosis or edema DS: Data Data Completed and Pending Labs on day of discharge: Labs from last 24 hours 04/30/24 04/29/24 04/29/24 05:33 21:28 17:24 WBC 16.6 H RBC 4.87 Hgb 13.8 L Hct 41.3 L MCV 84.8 MCH 28.3 MCHC 33.4 RDW 14.1 Plt Count 429 MPV 9.4 L Neut % (Auto) 88.5 H Lymph % (Auto) 6.6 L Rock % (Auto) 4.1 Eos % (Auto) 0.0 L Baso % (Auto) 0.1 L Neut # (Auto) 14.7 H Lymph # (Auto) 1.1 L Rock # (Auto) 0.7 Eos # (Auto) 0.0 Baso # (Auto) 0.0 Abs Immat Gran (auto) 0.12 H Imm/Tot Granulo (auto) 0.7 H Sodium 137 Potassium 4.8 Chloride 101 Carbon Dioxide 26.0 Anion Gap 14.8 BUN 19.0 H Creatinine 1.20 Est GFR ( Amer) >60 Est GFR (Non-Af Amer) >60 BUN/Creatinine Ratio 15.8 Glucose 189 H Calcium 9.6 Theophylline 13.7 POC Glucose 285 H 157 H 04/29/24 11:43 WBC RBC Hgb Hct MCV MCH MCHC RDW Plt Count MPV Neut % (Auto) Lymph % (Auto) Rock % (Auto) Eos % (Auto) Baso % (Auto) Neut # (Auto) Lymph # (Auto) Rock # (Auto) Eos # (Auto) Baso # (Auto) Abs Immat Gran (auto) Imm/Tot Granulo (auto) Sodium Potassium Chloride Carbon Dioxide Anion Gap BUN Creatinine Est GFR ( Amer) Est GFR (Non-Af Amer) BUN/Creatinine Ratio Glucose Calcium Theophylline POC Glucose 188 H Discharge Plan Discharge Disposition: Home, Self-Care Discharge Medications: New prednisone 10 mg tablet 50 mg PO DAILY Qty: 47 0RF Rx Instructions: 5/day for 3 days. 4/day for 3 days, 3/day for 3 days, 2/day for 3 days, 1/day for 3 days, 1/2 /day for 4 days levofloxacin 750 mg tablet 750 mg PO DAILY 10 Days Qty: 10 0RF Continued latanoprost 0.005 % drops 1 drp OPHTHALMIC (EYE) DAILY Ozempic 0.25 mg or 0.5 mg (2 mg/3 mL) pen injector 0.5 mg SUBCUT .weekly venlafaxine 150 mg capsule,extended release 24hr 150 mg PO BID theophylline 400 mg tablet extended release 24 hr 400 mg PO Q12H 30 Days Qty: 60 0RF albuterol sulfate 90 mcg/actuation HFA aerosol inhaler 2 puff INHALATION Q4H PRN (Reason: shortness of breath or wheezing) Qty: 8.5 0RF prednisone 10 mg tablet See Rx Instructions .ROUTE .COMPLEX Qty: 42 0RF Rx Instructions: 6 tabs daily x 2 days, then 5 tabs daily x 2 days, then 4 tabs daily x 2 days, then 3 tabs daily x 2 days, then 2 tabs daily x 2 days, then 1 tab daily x 2 days, then stop pravastatin 80 mg tablet 80 mg PO .QHS theophylline 450 mg tablet extended release 12 hr 450 mg PO Q12H hydroxyzine HCl 25 mg tablet 25 mg PO TID PRN (Reason: anxiety) Trelegy Ellipta 100-62.5-25 mcg blister with device 1 inh INHALATION Q24H glipizide 10 mg tablet 10 mg PO BID lisinopril 5 mg tablet 5 mg PO DAILY metoprolol succinate 25 mg tablet extended release 24 hr 25 mg PO DAILY omeprazole 20 mg capsule,delayed release(DR/EC) 20 mg PO DAILY Activity: increase activity as tolerated Diet: advance to your usual diet Print Language: [place] Patient Instructions: Prednisone (By mouth), Levofloxacin (By mouth) (Levaquin, Levaquin Leva-sarah), COPD (Chronic Obstructive Pulmonary Disease) (ED) Forms: Portal Instructions Follow Up Appointments: Dali Trivedi NP, Tues., 2023 at 2:00 [address] [place] [address] Discharge Date/Time: 04/30/24 12:04
--- NOTE | 2024-04-30 09:13 | CM.NOTE ---
Rounds made with Dr. Gonzalez, discussed with pt discharge to home today. Pt has home oxygen @4L [place] through [facility]. No other discharge needs identified.
--- NOTE | 2024-04-30 09:16 | CM.NOTE ---
Important Message From [employer] discussed with pt, pt verbalizes understanding and signs paper. Original given to pt and copy placed in pt's chart.
[2024-04-30] MEDS: FLU VAC QS 2024(6MS UP)CEL/PF 60 MCG/0.5 ML SYRINGE IM (09:21)
[2024-04-30] MEDS: CEFTRIAXONE 1,000 MG in 0.9 % SODIUM CHLORIDE 50 ML 100 MG IV (09:21)
--- NOTE | 2024-05-01 13:02 | CM.DCFOLLOWU ---
05/01 1st attempt. No answer
--- NOTE | 2024-05-02 14:43 | CM.DCFOLLOWU ---
1st attempt 05/02/24, no answer
--- NOTE | 2024-05-03 12:55 | CM.DCFOLLOWU ---
3rd attempt. No answer
== END 2024-04-30 12:04 | disposition home or self-care (01) | DRG 202 ==
LOC: ER 14:46 → ICU 16:24
PROVIDERS: Admitting Provider Family Medicine; Emergency Provider Emergency Medicine; PCP Internal Medicine; Visit Provider Family Medicine
DX: J20.9 Acute bronchitis, unspecified (principal); E87.1 Hypo-osmolality and hyponatremia; J44.0 Chronic obstructive pulmonary disease with (acute) lower respiratory infection; J44.1 Chronic obstructive pulmonary disease with (acute) exacerbation; J96.11 Chronic respiratory failure with hypoxia; F32.9 Major depressive disorder, single episode, unspecified; I25.10 Atherosclerotic heart disease of native coronary artery without angina pectoris; R12 Heartburn; F41.1 Generalized anxiety disorder; E11.65 Type 2 diabetes mellitus with hyperglycemia; I10 Essential (primary) hypertension; Z99.81 Dependence on supplemental oxygen; Z87.891 Personal history of nicotine dependence; R00.0 Tachycardia, unspecified; T38.0X5A Adverse effect of glucocorticoids and synthetic analogues, initial encounter; Z20.822 Contact with and (suspected) exposure to COVID-19; Z79.899 Other long term (current) drug therapy; Z79.84 Long term (current) use of oral hypoglycemic drugs
CPT/HCPCS: 36415; 71045; 80048; 80053; 80198; 82948; 84484; 85025; 85610; 87070; 87804; 87811; 90674; 93005; 94640; 94667; 94668; 94761; 96374; 96375; 99285; G0378; J0456; J0696; J1885; J2919

== ENCOUNTER 2024-07-12 07:46 | Outpatient (RCR) | payer MEDICARE, SELFPAY ==
[2024-07-04 14:45] VITALS: BP 145/78; PULSE 24; TEMP 36.1; O2SAT 97
[2024-07-04] MEDS: ALPHA-1-PROTEINASE INHIBITOR 6,528 MG in EMPTY BAG 0 ML 240 MG IV (15:45)
[2024-07-12 14:42] VITALS: BP 187/78; PULSE 76; TEMP 36.1; O2SAT 92
[2024-07-12] MEDS: ALPHA-1-PROTEINASE INHIBITOR 6,528 MG in EMPTY BAG 0 ML 240 MG IV (14:45)
== END 2024-07-13 12:36 | disposition home or self-care (01) ==
LOC: INF 07:46
PROVIDERS: PCP Internal Medicine; Visit Provider Internal Medicine
DX: E88.01 Alpha-1-antitrypsin deficiency (principal); J43.2 Centrilobular emphysema
CPT/HCPCS: 96365; J0256

== ENCOUNTER 2024-08-15 07:38 | Outpatient (RCR) | payer MEDICARE, SELFPAY ==
[2024-07-25 14:40] VITALS: BP 162/92; PULSE 88; TEMP 36; O2SAT 94
[2024-07-25] MEDS: ALPHA-1-PROTEINASE INHIBITOR 6,528 MG in EMPTY BAG 0 ML 240 MG IV (14:55)
[2024-08-01 12:04] VITALS: BP 149/99; PULSE 118; TEMP 36.6; O2SAT 98
[2024-08-01] MEDS: PROTEINASE INHIBITOR IV (12:15)
[2024-08-01] MEDS: ALPHA IV (12:15)
[2024-08-09 14:30] VITALS: BP 132/76; PULSE 90; TEMP 36.6; O2SAT 98
[2024-08-09] MEDS: PROTEINASE INHIBITOR IV (15:01)
[2024-08-09] MEDS: ALPHA IV (15:01)
--- NOTE | 2024-08-09 15:36 | PC.NURSE ---
Pt rec'd Prolastin infusion w/o incident. D/c'd stable.
[2024-08-15 14:36] VITALS: BP 147/68; PULSE 105; TEMP 35.9; O2SAT 95
[2024-08-15] MEDS: PROTEINASE INHIBITOR IV (15:13)
[2024-08-15] MEDS: ALPHA IV (15:13)
== END 2024-08-17 23:59 | disposition home or self-care (01) ==
LOC: INF 07:38
PROVIDERS: PCP Internal Medicine; Visit Provider Internal Medicine
DX: E88.01 Alpha-1-antitrypsin deficiency (principal); J43.2 Centrilobular emphysema
CPT/HCPCS: 96365; J0256

== ENCOUNTER 2024-08-20 15:05 | Emergency (ER) | payer MEDICARE, SELFPAY ==
[2024-08-20] VITALS (18 sets, daily range): BP systolic 179; BP diastolic 97; PULSE 91–103; TEMP 37; O2SAT 94–99; BMI 35.4
--- OUTSIDE RECORDS SUMMARY | 2024-08-20 15:24 | XMS_ITS | CCD ---
Author Organization [facility] CliniSypr Care Team Providers Care Changer Fixer Name Role Phone ELTAHAWY, EHAB A Admitting Unavailable ELTAHAWY, EHAB A Attending Unavailable BRYON COWART Referring Unavailable ELTAHAWY, EHAB Marek Primary Care Unavailable Bryon Cowart MD Primary Care Provider Tara DOVanda P Unavailable Bryon Cowart Unavailable SAMSA ., [...] DR BRYON COWART Primary Care Unavailable MONTAGUE .DR EVERETTE Consulting Unavailable MONTAGUE ., DR EVERETTE Richey Attending Unavailable MONTAGUE ., DR EVERETTE Richey Admitting Unavailable GRECHGISELLE .JOSE Consulting UnavailHEBERT Garcia Consulting Unavailable SOLA SHELL Consulting Unavailable , BERTA Consulting Unavailable DR BRYON COWART Primary Care Unavailable SAMSA ., VANDA Attending Unavailable SAMSA ., VANDA Admitting Unavailable DR BRYON COWART Primary Care Unavailable SAMSA ., VANDA Attending Unavailable SAMSA ., VANDA Admitting Unavailable SAMSA ., VANDA Admitting Unavailable SAMSA ., VANDA Consulting Unavailable SAMSA ., VANDA Attending Unavailable DR BRYON COWART E Primary Care Unavailable SOFYA, DR BRYON Richey Primary Care Unavailable SOFYA, DR BRYON Richey Consulting Unavailable SOFYA, DR BRYON Richey Attending Unavailable SOFYA, DR BRYON Richey Admitting Unavailable SOFYA, DR BRYON Richey Primary Care Unavailable SAI, DR JUSTINE Mendoza Consulting Unavailable SAI, DR JUSTINE Mendoza Attending Unavailable SAI, DR JUSTINE Mendoza Admitting Unavailable GERARD WOLFF Consulting Unavailable SOLO, H Attending Unavailable LUZ BANDAIKH H Admitting Unavailable CUCO .JOSE Consulting Unavaildemetria e SOFYA, DR BRYON Richey Primary Care Unavailable DAVID GIBBS Consulting Unavailable Rubén Pina Unavailable Bryon Cowart MD Primary Care Provider Vanda Pacheco DO Unavailable [phone] SARAH KEITH Primary Care Physician [phone] NGOZI KEITH A Attending Unavailabl e INNA, MARKETING PROFESSOR SARAH A Attending Unavailabl e INNA, MARKETING PROFESSOR SARAH A Attending Unavailabl e INNA, MARKETING PROFESSOR SARAH A Attending Unavailabl e INNA, MARKETING PROFESSOR SARAH A Attending Unavailabl e INNA, MARKETING PROFESSOR SARAH A Admitting Unavailabl e INNA, MARKETING PROFESSOR SARAH A Attending Unavailabl e INNA, MARKETING PROFESSOR SARAH A Attending Unavailabl e INNA, MARKETING PROFESSOR SARAH A Attending Unavailabl e INNA, MARKETING PROFESSOR SARAH A Attending Unavailabl e INNA, MARKETING PROFESSOR SARAH A Attending Unavailabl e INNA, MARKETING PROFESSOR SARAH A Attending Unavailabl e INNA, MARKETING PROFESSOR SARAH A Admitting Unavailabl e INNA, MARKETING PROFESSOR SARAH A Attending Unavailabl e INNA, MARKETING PROFESSOR SARAH A Admitting Unavailabl e INNA, MARKETING PROFESSOR SARAH A Attending Unavailabl e INNA, MARKETING PROFESSOR SARAH A Attending Unavailabl e Allergies Allergy Classification Reported Allergen(s) Allergy Type Date of Onset Reaction(s) Facility (20 sources) metFORMIN; Translations: [metformin] Drug Allergy 1 Intolerance, Diarrhea (finding) [facility] (4 sources) metFORMIN Drug Allergy Diarrhea [employer] Other (1 source) metFORMIN Drug Allergy 2 [facility] Repository Medications Current Medications Medication Drug [...] 1 TAB PO Every 6 hours 120 October 03, 2023 Start: 08-10-2023 take 1 [...] BY [facility] 4 TIMES A DAY alpha 1-proteinase inhibitor, [...] Start: 03-25-2021 take 1 capsule by mo [facility] once daily dilTIAZem CD (CARDIZEM CD) 240 mg 24 hr capsule Take 1 capsule by mouth once daily. 0 03/25/2021 Active Comment on above: Take 1 capsule by mo ut once daily. empagliflozin 25 mg oral tablet [...] 2023 2:52pm take 1 tablet by [facility] once daily Jardiance 25 mg TAKE 1 [...] Start: 03-25-2021 take 2 tablets by mo [facility] twice daily guaiFENesin (MUCINEX) 600 mg 12 hr tablet Take 2 tablets by mouth twice daily. 0 03/25/2021 Active take 1 tablet by [facility] every twelve hours Mucinex 600 MG 1 tablet as needed Orally every 12 hrs Active Comment on above: Take 2 tablets by mo [facility] twice daily. Handicap placards as directed (20 [...] anxiety, # 90 tab(s), Refills(s) 2, Pharmacy: [facility]/pharmacy #[id number], 177, cm, 01/24/24 10:21:00 EDT, Height/Length [...] TOPICAL Twice daily September 15, 2023 1:00am [place] 3 1000 MG (20 sources) take 1 capsule by mouth once daily [place] 3 1000 MG 1 capsule Orally Once a day Active [place]-3 Fatty Acids (1 source) Start: 09-14-19 take 1000 mg by mouth once daily [place]-3 Fatty Acids Active 1000 MG PO Daily [...] Start: 02-24-2021 take 1 capsule by mo ut once daily omeprazole (PRILOSEC) 20 mg capsule [...] bedtime), # 90 tab(s), Refills(s) 1, Pharmacy: [facility]/pharmacy #[id number], 177, cm, 01/24/24 11:56:00 EDT, Height/Length [...] NACL 0.9% 25 mL FLUSH (I [id number]) Inject 10 mL intravenously. 0 02/13/2021 05/15/2022 Active Comment on above: Inject 10 mL intrave nously. theophylline 450 mg extended release oral tablet (20 sources) Methylxanthine Start: 01-24-20 take 1 tablet by mouth every twelve hours theophylline 450 mg ER Tab 450 mg = 1 tab(s), Oral, q12hr, # 180 tab(s), Refills(s) 0, Pharmacy: [facility]/pharmacy #[id number], 177, cm, 01/24/24 10:21:00 EDT, Height/Length [...] Serotonin and Norepinephrine Reuptake Inhibitor Start: 12-28-19 24 take 1 capsule by mouth twice daily venlafaxine 150 mg Cap-ER 150 mg = 1 cap(s), Oral, BID, Refills(s) 0 Start Date: 12/28/23 Status: Ordered Start: 09-14-2023 take 1 capsule by mo [facility] twice daily at mealtime Venlafaxine (Effexor Xr) 150 mg capsule,extended release 24hr Active 150 MG PO Twice daily with meals September 14, 2023 1:00am Start: 03-03-2021 take 1 tablet by [facility] twice daily VENLAFAXINE ER 150 MG TABLET,EXTENDED RELEASE 24 HR Take 150 mg by mouth twice daily. 0 03/03/2021 Active take 1 capsule by [facility] every twelve hours Effexor XR 150 MG 1 capsule with food Orally bid for 90 days Active take 1 capsule by mo [facility] every twenty-four hours Effexor XR 150 MG 1 capsule with food Orally Once a day for 30 days Active take 1 capsule by [facility] every twelve hours Effexor XR 75 MG 1 capsule with food Orally Twice a day for 30 days Active Comment on above: Take 150 mg by mouth twice daily. Completed/Discontinued Medications Medication Drug Class(es) Dates Sig (Normalized) Sig (Original) ppcwt-5-ujvvhrnlbs inhibitor (Human) 1,000 mg in water for injection (6 sources) Start: 03-25-20 21 inject 1000 mg intravenously every week jvrqx-0-kiimqtlrhf inhibitor (Human) 1,000 mg in water for [...] 03-25-2021 Chronic Other aftercare (1 source) Other [employer] continuous churn (current) drug therapy; Translations: [OTH CURATOR HERBARIUM CURRENT DRUG THERAPY] Onset: 3 Episodic Other aftercare (1 source) [facility] (current) use of aspirin; Translations: [FCI CURRENT USE OF ASPIRIN] Onset: 3 Episodic Other aftercare (1 source) intermediate designer (current) use of oral hypoglycemic drugs; Translations: [CURATOR HERBARIUM USE ORAL HYPOGLYCEMIC DX] Onset: 3 Episodic Other aftercare (4 sources) Encounter for therapeutic drug level monitoring; Translations: [ENC THERAPEUTC DRUG LEVL MONITORING] Onset: 3 Episodic Other lower respiratory disease (4 sources) Shortness of breath; Translations: [SHORTNESS OF BREATH] Onset: 3 Episodic Other lower respiratory disease (4 sources) Hypoxemia; Translations: [HYPOXEMIA] Onset: 3 Episodic Other nutritional; endocrine; and metabolic disorders (8 sources) Dgrsl-8-bbfvfjfudhz deficiency; Translations: [Waryi-1-wliorkxpefr deficiency] Onset: 1 03-25-2021 Chronic Other nutritional; [...] nutritional; endocrine; and metabolic disorders (1 source) Tbgpu-5-cxqarxgsben deficiency; Translations: [YFOTF-3-OMSFKXIWHYL DEFICIENCY] Onset: 3 Chronic Other nutritional; endocrine; [...] Name Value Interpretation Reference Range Facil ity Ambulatory Visit Summaryon 1 07-22-2023 Ambulatory Visit Summary Ambulatory Visit Summary RICARDO HYLTON :1960 Visit Date:05/22/2024 Ambulatory Visit Instructions Your Diagnosis Type 2 diabetes mellitus with hyperlipidemia Anxiety Hyperlipidemia, Hyperlipidemia, unspecified Former smoker BMI 34.0-34.9,adult Exogenous obesity Your Care Team Attending Physician - SARAH KEITH CNP Primary Care Physician - SARAH KEITH CNP This Is Your Medications List empagliflozin (Jardiance 25 mg oral tablet) Contact prescribing physician if questions or concerns [...] omeprazole (omeprazole 20 mg Cap-DR) pravastatin (pravastatin 80 mg Tab) semaglutide (Ozempic 2 mg/3 mL (0.25 mg or 0.5 mg dose) subcutaneous solution) theophylline (theophylline 450 mg ER Tab) venlafaxine (venlafaxine 150 mg Cap-ER) Procedures Performed Cardiac catheter. Discharge Vitals Temperature (Oral) 36.5 ???C Heart Rate (Peripheral) 96 Respiratory Rate 20 Blood Pressure 126/84 Height 177.0 cm Height 70 in Weight 107.7 kg Weight 236.94 lb BMI 34.38 What to do next Scheduled Follow-Up Appointments Tuesday 2:40 PM EST With: SARAH KEITH CNP Where: [address] [address]- Tuesday 1:00 PM EDT With: Where: [address] [address]- Medications What How Much When Why Instructions New empagliflozin (Jardiance 25 mg oral tablet) 1 Tablets By Mouth Once a day (in the morning) Pickup at [facility]/pharmacy #[id number] Unchanged albuterol-ipratropiu m (Combivent Respimat 20 mcg-100 [...] prescribing physician if questions or concerns Unchanged hydrOXYzine (hydrOXYzine hydrochloride 25 mg Tab) See instructions TAKE 1 TABLET BY MOUTH 3 TIMES A DAY NEEDED FOR ANXIETY Contact prescribing physician if questions or concerns [...] if questions or concerns Unchanged pravastatin (pravastatin 80 mg Tab) 1 Tablets By Mouth Once a day (at bedtime) Hyperlipidemia Contact prescribing physician if questions or concerns Unchanged semaglutide (Ozempic 2 mg/ 3 mL (0.25 mg or 0.5 mg dose) subcutaneous solution) 0.5 Milligram Subcutaneous Every week Contact prescribing physician if questions or concerns Unchanged theophylline (theophylline 450 mg ER Tab) See instructions TAKE 1 TABLET BY MOUTH EVERY 12 HOURS Contact prescribing physician if questions or concerns Unchanged venlafaxine (venlafaxine 150 mg Cap-ER) 1 Capsules By Mouth 2 times a day Contact prescribing physician if questions or concerns Pharmacy Information [facility]/pharmacy #[id number]: [address], [place] [phone] Allergies metFORMIN (Diarrhea) Pro (more content not included)... [facility] Family Medicine Office/Clini c Noteon 05-22-2024 Family Medicine Office/Clinic Note Family Medicine Office/Clinic Note HPI Staff Pt presents today for 3m follow up to Anxiety, Hyperlipidemia & DM. Follow up for Mental Status: Medication adherence- Yes, takes medication as prescribed Medication refill needed: _ Suicidal thoughts-Not at this time Most recent CANDACE: 12 Most recent PHQ: 16 Patient is here for follow up on Diabetes. How often are you checking your blood sugars? no he has not What are your average readings?_? Are you compliant with your diet? sometimes Do you exercise? no Are you compliant with your medications or having difficulty affording your medications? yes Do you have any of the following symptoms? Vision problems? no? watery eyes all the time Lightheadedness? recently- yes Paresthesias, Ulcerations or sores? no Patient is here for follow up on hyperlipidemia: Do you have side effects from the medication? no Refill needed?: _ Yearly Lipid labs: 01/24/24 Wants refills on Jardiance History of Present Illness Patient presents today in f/u for known Diabetes, Hyperlipidemia, & Anxiety. He reports he does not check his blood sugar. He states he drinks a great deal of water. He reports he needs a refill of the Jardiance at this visit. He reports his anxiety level has increased and the hydroxyzine is not as effective as it was in the past. Review of Systems PHQ Score Initial Depression Screen Score: 6 SCORE Detailed Depression Screen Score: 10 Total Depression Screen Score: 16 Constitutional: no fever, no chills, no sweats, [...] noncontributory. Physical Exam Vitals & Measurements T: 36.5 ???C(Oral) HR: 96(Peripheral) RR: 20 BP: 126/84 SpO2: 96% HT: 70 in HT: 177.0 cm WT: 107.7 kg WT: 236.94 lb BMI: 34.38 General: alert, no acute distress Skin: warm, dry Head: no trauma, normocephalic Neck: Trachea midline, no adenopathy, no tenderness Eye: normal conjunctiva, sclera clear Cardiovascular: regular rate and rhythm, normal peripheral perfusion Respiratory: Lungs CTA, respirations non labored Extremities: no deformity, no trauma Neurological: oriented x 4, LOC appropriate for age speech normal Psychiatric: cooperative, affect appropriate for age, normal judgement, normal psychiatric thoughts. Assessment/Plan 1. Type 2 diabetes mellitus with hyperlipidemia (E11.69: Type 2 diabetes mellitus with other specified complication) Stable Controlled POC HgbA1C 7.4% Jardiance 25 mg one tablet po daily refilled at this visit f/u in 3 months Ordered: A1c POC 80518 2. Anxiety (F41.9: Anxiety disorder, unspecified) Completed and reviewed the PHQ-9 score of 10 and the CANDACE-7 score of 12 Encouraged patient to contact [facility] for counseling Increase hydroxyzine 50 mg one tablet po TID prn for anxiety f/u in 4 weeks Ordered: hydrOXYzine, 50 mg = 1 tab(s), Oral, TID, PRN for anxiety, # 90 tab(s), Refills(s) 0, Pharmacy: [facility]/pharmacy #[id number], 177, cm, 05/22/24 15:06:00 EST, Height/Length Dosing, 107.7, kg, 05/22/24 15:06:00 EST, Weight Dosing A1c POC 00760 3. Former smoker (Z87.891: Personal history of nicotine dependence) Courage to continue is a non-smoker Ordered: A1c POC 92273 4. BMI 34.0-34.9,adult (Z68.34: Body mass index [BMI] 34.0-34.9, adult) The standard range for ages 18 and older is >=18.5 and < 25 kg/m2. Your BMI today was above this range, this falls in the overweight to obese category and there are medical benefits to weight loss. We can offer counselling, referral, and/or medical support in addressing this problem. Your BMI and weight management will be followed at subsequent visits. Patient has lost 17.6 pounds since December 2023 Encouraged to continue with portion control and daily exercise Ordered: A1c POC 46219 5. Exogenous obesity (E66.09: Other obesity due to excess calories) The standard range for ages 18 and older is >=18.5 and < 25 kg/m2. Your BMI today was above this range, this falls in the overweight to obese category and there are medical benefits to weight loss. We can off (more content not included)... [facility] Comment on above: Result Comment: Elec tronically Signed By: SARAH KEITH CNP\.br\Date and Time Signed: 05/22/24 15:51 EST Provider Letteron 05-02-2024 Provider Letter Provider Letter May 02, 2024 RICARDO HYLTON [address] [place] [id number] RICARDO HYLTON 1960 Dear Ricardo, We have been trying to reach you with no success. It is important that you return our call regarding your hospital discharge upon receiving this letter. Also, at the time of your call, please provide us with your current information. Thank you for your prompt attention to this matter. Sincerely, Mark Outcomes Analyst [phone] [facility] Pre-Visit Planningon 024 Pre-Visit Planning Pre-Visit Planning - From: Yesenia Muñoz RN To: SARAH KEITH CNP; Sent: 04/23/2024 12:51:08 EDT Subject: Pre-Visit Planning Due Date/Time: 04/23/2024 12:51:00 EDT Caller Name: RICARDO HYLTON; Caller Number: Jose , M bernice Whatley in January you [...] was 93%. Patient does not have a certified vehicle fire investigator. Patient admits to be a little more SOB today. Follows up as directed and prn with pcp. Addendum by SARAH KEITH CNP on January 24, 2024 11:51:10 EDT (Verified) - From: SARAH KEITH CNP To: Yesenia Muñoz RN; Sent: 01/24/2024 11:51:10 EDT Subject: RE: Pre-Visit Planning Caller Name: RICARDO HYLTON; Caller Number: Jose , M Added to diagnosis - From: [...] feel free to contact me at extension [phone]. Thank you! ROWDY Kidd, RN, CCM, CCDS, CCDS-O CDI Valve Steamer [place] [address] P: [phone] F: [phone] [email or web address] - From: SARAH KEITH CNP To: Yesenia Muñoz RN; Sent: 04/24/2024 13:57:06 EDT Subject: RE: Pre-Visit Planning Caller Name: RICARDO HYLTON; Caller Number: Jose , M Patient did not show for his appointment however, dx added to the chronic list. [facility] Pre-Visit Planning Pre-Visit Planning - From: Yesenia Muñoz RN To: SARAH KEITH CNP; Sent: 04/23/2024 12:47:25 EDT Subject: Pre-Visit Planning Due Date/Time: 04/23/2024 12:47:00 EDT Caller Name: RICARDO HYLTON; Caller Number: H , M Stephen Mcnally, back in January you responded [...] HYLTON; Caller Number: H , M Stephen Sarah, *Based on your response below, can you please update the chronic problem list and address during this visit if appropriate?* During a pre-visit planning chart review, I noted the following documentation in the medical record indicates that this patient had a BMI of 36 on 12/29/2022. The National [place] of [employer] defines obesity as morbid if [...] feel free to contact me at extension [phone]. Thank you! Yesenia Muñoz, ARIELN, RN, CCM, CCDS, CCDS-O CDI Valve Steamer [place] [address] P: [phone] F: [phone] [email or web address] - From: SARAH KEITH CNP To: Wanda BRYANT, Yesenia; Sent: 04/24/2024 13:56:56 EDT Subject: RE: Pre-Visit Planning Caller Name: RICARDO HYLTON; Caller Number: , Patient did not show for his appointment however, dx added to the chronic list. [facility] Interdisciplinary Note - Soc ial Workeron 01-30-2024 Interdisciplinary Note - Cable Spooler Interdisciplinary Note - Cable Spooler Consult for positive depression screen received. Per chart notes, patient's depression screen and PHQ9 were both negative. No SW needs at this time. SW will remain available. [facility] Ambulatory Visit Summaryon 0 01-24-2024 Ambulatory [...] PM EDT With: SARAH KEITH CNP Where: [facility] Normal [address] [place] [address]- \.br\ You Need to Complete the Following\.br\ [...] if anything looks unusual. Men with a lrvnqx-exhv-jcuew l risk for skin cancer may want to see a quill skinner (esl professor) for an annual body check.\.br\ What are [facility] Ambulatory Visit Summary Ambulatory Visit Summary RICARDO [...] months Comments: Diabetes & COPD Where: [address] [place] [address] Business (1) Medications What How Much When Why Instructions Changed theophylline (theophylline 450 mg ER Tab) 1 Tablets By Mouth Every 12 hours Pickup at [facility]/pharmacy #[id number] Unchanged hydrOXYzine (hydrOXYzine hydrochloride 25 mg Tab) 1 Tablets By Mouth 3 times a day as needed for for anxiety Anxiety Pickup at [facility]/pharmacy #[id number] Unchanged albuterol-ipratropiu m (Combivent Respimat 20 mcg-100 [...] physician if questions or concerns Pharmacy Information [facility]/pharmacy #[id number]: [address], [place] [phone] Allergies metFORMIN (Diarrhea) Problems Ongoing - Any [...] Diabetes Me (more content not included)... [facility] CHEMISTRYOrdered By: SYSTEM SYSTEM on 01-24-2024 [...] used for this result was chemiluminescence using [employer] Access Hybritech PSA reagent. Protein [Mass/Vol] 7.3 g/dL [...] complications) 4. On statin therapy (Z79.899: Other [employer] continuous churn (current) drug therapy) 5. History of opioid [...] virus vaccine, inactivated 05/10/2018 Recorded Normal [facility] Comment on above: Result Comment: Elec tronically Signed By: SARAH KEITH CNP\.br\Date and Time Signed: 01/24/24 21:51 EDT\.br\Electronically Co-Signed By: Jennifer Frederick\.br\Date and Time Co-Signed: 01/24/24 13:18 EDT Family [...] of clutter to prevent tripping and/or falling. [place] Advance Directives packet provided to patient. Instructions [...] was 93%. Patient does not have a certified vehicle fire investigator. Patient admits to be a little more [...] directed. 4. On statin therapy (Z79.899: Other [employer]termaker continuous churn (current) drug therapy) Patient currently taking statin [...] be r (more content not included)... [facility] Comment on above: Result Comment: Elec tronically Signed By: SARAH KEITH CNP\.br\Date and Time Signed: 01/24/24 21:50 EDT\.br\Electronically Co-Signed By: Jennifer Frederick\.br\Date and Time Co-Signed: 01/24/24 13:30 EDT Family Medicine Office/Clinic Note Family Medicine Office/Clinic Note [facility] Staff Ricardo is a 63 year old [...] anxiety, # 90 tab(s), Refills(s) 2, Pharmacy: [facility]/pharmacy #[id number], 177, cm, 01/24/24 10:21:00 EDT, Height/Length Dosing, [...] q12hr, # 180 tab(s), Refills(s) 0, Pharmacy: [facility]/pharmacy #[id number], 177, cm, 01/24/24 10:21:00 EDT, Height/Length Dosing, 115.7, kg, 12/28/23 13:07:00 EDT, Weight Dosing Follow-up With When Contact Information SARAH KEITH CNP, FAM Within [address] [place] [phone] Business (1) Additional Instructions: Diabetes & [...] 2 refi (more content not included)... Normal [facility] Comment on above: Result Comment: Elec tronically Signed By: SARAH KEITH CNP\.br\Date and Time Signed: 01/24/24 10:54 EDT Pre-Visit Planningon 024 Pre-Visit Planning Pre-Visit Planning - From: Yesenia Muñoz RN To: SARAH KEITH CNP; Sent: 01/17/2024 10:10:40 EDT Subject: Pre-Visit Planning Due Date/Time: 01/17/2024 10:10:00 EDT Caller Name: RICARDO HYLTON; Caller Number: H , M Stephen Mcnally During a pre-visit [...] feel free to contact me at extension [phone]. Thank you! ROWDY Kidd, RN, CCM, CCDS, CCDS-O - From: SARAH KEITH CNP To: Yesenia Muñoz RN; Sent: 01/24/2024 11:51:22 EDT Subject: RE: Pre-Visit Planning Caller Name: RICARDO HYLTON; Caller Number: H , M Added to diagnosis Normal [address] [facility] Pre-Visit Planning Pre-Visit Planning - From: Yesenia Muñoz RN To: SARAH KEITH CNP; Sent: 01/17/2024 10:07:43 EDT Subject: Pre-Visit Planning Due Date/Time: 01/17/2024 10:07:00 EDT Caller Name: RICARDO HYLTON; Caller Number: Jose , M Stephen Sarah, *Based on your response below, can you [...] feel free to contact me at extension [phone]. Thank you! ROWDY Kidd, RN, CCM, CCDS, CCDS-O - From: SARAH KEITH CNP To: Yesenia Muñoz RN; Sent: 01/24/2024 11:51:10 EDT Subject: RE: Pre-Visit Planning Caller Name: RICARDO HYLTON; Caller Number: Jose , M Added to diagnosis Normal [address] [facility] Pre-Visit Planning Pre-Visit Planning - From: [...] BMI of 36 on 12/29/2022. The [employer] [place] of Health defines obesity as morbid if [...] feel free to contact me at extension [phone]. Thank you! ROWDY Kidd, RN, CCM, CCDS, CCDS-O - From: SARAH KEITH CNP To: Wanda BRYANT, Yesenia; Sent: 01/24/2024 11:50:53 EDT Subject: RE: Pre-Visit Planning Caller Name: RICARDO HYLTON; Caller Number: Jose , M Added to diagnosis Normal [address] [facility] U Protein/Creat Ratioon 07-0 Protein/Creatinine (U) [Ratio] 9.40 mg/gm Cr Normal .00-200.00 [facility] Comment on above: Performed By: #### 1 [id number] #### [facility] [address] [place] [address] U Creatinine 103.6 mg/dL Invalid Interpretation Code [facility] Comment on above: Performed By: #### 1 [id number] #### [facility] [address] [place] [address] Ur Total Protein 9.7 mg/dL Invalid Interpretation Code [facility] Comment on above: Performed By: #### 1 [id number] #### [facility] [address] [place] [address] Family Medicine Office/Clini c Noteon 12-29-2023 Family Medicine Office/Clinic Note HPI Staff Ricardo is a 63 year old male [facility] Establish Care: History: COPD, Emphysema DM Any previous diagnosis: History of seeing any specialist: Dr Pacheco When was your last doctors visit: 3-4 weeks ago Last provider: Dr Cowart Any recent labs: less than a year ago at [facility] Maintenance UTD: Colonoscopy: never PSA: doesn't thnk he's ever had one Acute: his breathing which is ongoing and Dr Pacheco follows him wants him to lose some weight. Current issues/complaints: Dr Cowart released him due to failed urine drug screen ( on vicodin) and wasn't in his system on drug test History of Present Illness 63 year old former patient of Dr. Lizz Cowart presents today to establish [facility]. He has a previous hx of COPD/Emphysema and diabetes. He reports he was released from Dr. Cowart's care d/t misuse of schedule II medications. He reports he does have a certified vehicle fire investigator that he sees for his COPD/emphysema. He [...] anxiety, # 90 tab(s), Refills(s) 0, Pharmacy: [facility]/pharmacy #[id number], 177.3, cm, 12/28/23 13:07:00 EDT, Height/Length [...] subq week (more content not included)... Normal [facility] Comment on above: Result Comment: Elec tronically Signed By: SARAH KEITH CNP\.mitchel\Date and Time Signed: 12/29/23 08:59 EDT Patient [...] Lifestyle ? (more content not included)... Normal [facility] Ambulatory Visit Summaryon 0 12-28-2023 Ambulatory [...] PM EDT With: SARAH KEITH CNP Where: [facility] for Release of Medical Records 12-28-2023 [facility] for Release of Medical Records [id number]# [id number] [facility] Chuyita 04-25-2023 NEVA Telephone (FLORINDA) RICARDO HYLTON ([id number]) 1960 M Date Time Provider Department 04/25/23 CAPO MERAZ During your visit today, we recorded the following information about you: Capo Meraz, ANNETTE 04/25/2023 11:50 AM Signed Attempted to reach emergency contact, Renetta Hyltno, of patient as we have not been [...] any questions. 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] 02/16/2021 Chronic obstructive pulmonary disease (HCC) [J4*01/17/2019 Essential hypertension [I10] 02/14/2019 RANCHO (obstructive sleep apnea) [G47.33] 03/25/2021 Depression [F32.A] 03/25/2021 GERD (gastroesophageal reflux disease) [K21.9] 03/25/2021 Diabetes (HCC) [E11.9] 03/25/2021 Bipolar 1 disorder (HCC) [F31.9] 03/25/2021 Encounter Status:Closed by CAPO MERAZ on 04/25/23 [facility] 03-22-2023 [facility] Telephone (FLORINDA) RICARDO HYLTON ([id number]) 1960 M Date Time Provider Department 03/22/23 CAPO MERAZ During your visit today, we recorded the following information about you: Capo Meraz, ANNETTE 03/22/2023 2:57 PM Signed Attempted to reach patient regarding lung transplant evaluation. He was last seen 03/2021. I was unable to speak with him but left a message to return call to transplant center, phone number provided. Capo Meraz RN, BSN Pre-Lung Plaster Lather Allergies As of Date: 03/22/2023 Noted Allergy Reaction METFORMIN 03/25/2021 5 - Intolerance Comments: diarrhea Date Reviewed: 03/25/2021 Reviewed by: Lia Sanders, ANNETTE - Fully Assessed Reason for Visit: Follow up on Lung Tx Referral [Other] Prescriptions as of 04/22/2023 - hprzc-8-dmzxnzrcqt inhibitor (Human) 1,000 mg in water for [...] Chronic respiratory failure with hypoxia (HCC) *02/16/2021 Umepg-6-algnmlankjw deficiency ([facility]) [E88.01] 02/16/2021 Chronic obstructive pulmonary disease (HCC) [J4*01/17/2019 Essential hypertension [I10] 02/14/2019 RANCHO (obstructive sleep apnea) [G47.33] 03/25/2021 Depression [F32.A] 03/25/2021 GERD (gastroesophageal reflux disease) [K21.9] 03/25/2021 Diabetes (HCC) [E11.9] 03/25/2021 Bipolar 1 disorder ([facility]) [F31.9] 03/25/2021 Encounter Status:Closed by CAPO MERAZ on 03/22/23 [facility]2023 [facility] (PULTMN[facility] RICARDO HYLTON ([id number]) 1960 M Date Time Provider Department 03/10/23 [...] being full. Capo Meraz RN, BSN Pre-Lung Plaster Lather Allergies As of Date: 03/10/2023 Noted Allergy Reaction METFORMIN 03/25/2021 5 - Intolerance Comments: diarrhea Date Reviewed: 03/25/2021 Reviewed by: Lia Sanders RN - Fully Assessed Reason for Visit: Follow up on Lung Transplant Referral [Other] Prescriptions as of 03/10/2023 - hcehu-0-vkzvfbrlnq inhibitor (Human) 1,000 mg in water for [...] 81 mg by mouth once daily. - Sorbent GreenE 2 SENSOR kit as directed. 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] 02/16/2021 Chronic obstructive pulmonary disease (HCC) [J4*01/17/2019 Essential hypertension [I10] 02/14/2019 RANCHO (obstructive sleep apnea) [G47.33] 03/25/2021 Depression [F32.A] 03/25/2021 GERD (gastroesophageal reflux disease) [K21.9] 03/25/2021 Diabetes (HCC) [E11.9] 03/25/2021 Bipolar 1 disorder (HCC) [F31.9] 03/25/2021 Encounter Status:Closed by CAPO MERAZ on 03/10/23 [facility] CARDIAC JUSTINE 3-6on 3 CK [Catalytic activity/Vol] 49 U/L Normal 39-308 [facility] Comment on above: Performed By: #### C MP #### [facility] [address] [address] [address] Jessie Lomax CK.MB [Mass/Vol] 1.93 ng/mL Normal <=3.60 [facility] Comment on above: Performed By: #### C MP #### [facility] [address] [address] [address] Jessie Lomax HSTROP 7.8 pg/mL Normal 4.0-76.1 [facility] Comment on above: Result Comment: CUT- OFF POINTS HAVE BEEN ESTABLISHED BASED ON THE FOURTH UNIVERSAL DEFINITIONS OF MYOCARDIAL INFARCTION. THE UPPER REFERENCE LIMIT (URL) OF TROPONIN, DEFINED THE 99TH PERCENTILE OF cTnI DISTRIBUTION IN A REFERENCE POPULATION, HAS BEEN CONFIRMED THE DECISION THRESHOLD FOR [place] DIAGNOSIS. Performed By: #### C MP #### [facility] [address] [address] [address] Jessie Lomax LACTATE/LACTIC ACIDon 2022 Lactate [Moles/Vol] 1.5 mmol/L Normal 0.4-2.0 [facility] Comment on above: Performed By: #### B LDCX1 #### [facility] [address] [address] [address] Jessie Lomax Lactate [Moles/Vol] 2.5 mmol/L Critically high 0.4-2.0 [facility] Comment on above: Performed By: #### B LDCX1 #### [facility] [address] [address] [address] Jessie Lomax CARDIAC JUSTINE ADMITon 03-19-2 023 CK [Catalytic activity/Vol] 36 U/L Critically low 39-308 [facility] Comment on above: Performed By: #### A CETON #### [facility] [address] [place] [address] Dr. Jessie Lomax CK.MB [Mass/Vol] 1.50 ng/mL Normal <=3.60 [facility] Comment on above: Performed By: #### A CETON #### [facility] [address] [place] [address] Dr. Jessie Lomax HSTROP 7.4 pg/mL Normal 4.0-76.1 [facility] Comment on above: Result Comment: CUT- OFF POINTS HAVE BEEN ESTABLISHED BASED ON THE FOURTH UNIVERSAL DEFINITIONS OF MYOCARDIAL INFARCTION. THE UPPER REFERENCE LIMIT (URL) OF TROPONIN, DEFINED THE 99TH PERCENTILE OF cTnI DISTRIBUTION IN A REFERENCE POPULATION, HAS BEEN CONFIRMED THE DECISION THRESHOLD FOR [place] DIAGNOSIS. Performed By: #### A CETON #### [facility] [address] [place] [address] Dr. Jessie Lomax HERLINDA 44 ng/mL Normal 16-96 [facility] Comment on above: Performed By: #### A CETON #### [facility] [address] [place] [address] Dr. Jessie Lomax CBC AUTO DIFFon 10-03-2022 BASO # 0.1 103/ul Normal 0.0-0.1 [facility] Comment on above: Performed By: #### C BC #### [facility] [address] [place] [address] Dr. Jessie Lomax Basophils/100 WBC (Bld) 0.5 % Normal 0.2-2.0 [facility] Comment on above: Performed By: #### C BC #### [facility] [address] [place] [address] Dr. Jessie Lomax EO # 0.0 103/ul Normal 0.0-0.7 [facility] Comment on above: Performed By: #### C BC #### [facility] [address] [place] [address] Dr. Jessie Lomax Eosinophils/100 WBC (Bld) 0.2 % Critically low 0.9-7.0 [facility] Comment on above: Performed By: #### C BC #### [facility] [address] [place] [address] Dr. Jessie Lomax Erythrocyte distribution width (RBC) [Ratio] 14.6 % Normal 11.0-15.0 [facility] Comment on above: Performed By: #### C BC #### [facility] [address] [place] [address] Dr. Jessie Lomax Hematocrit (Bld) [Volume fraction] 49.6 % Normal 42.0-54.0 [facility] Comment on above: Performed By: #### C BC #### [facility] [address] [place] [address] Dr. Jessie Lomax Hemoglobin (Bld) [Mass/Vol] 16.6 g/dL Normal 14.0-18.0 [facility] Comment on above: Performed By: #### C BC #### [facility] [address] [place] [address] Dr. Jessie Lomax IG # 0.10 10e3/ul Critically high 0.00-0.03 [facility] Comment on above: Performed By: #### C BC #### [facility] [address] [place] [address] Dr. Jessie Lomax IG % 0.8 % Critically high 0.0-0.5 [facility] Comment on above: Performed By: #### C BC #### [facility] [address] [place] [address] Dr. Jessie Lomax LYMPH # 1.0 103/ul Critically low 1.2-3.8 [facility] Comment on above: Performed By: #### C BC #### [facility] [address] [place] [address] Dr. Jessie Lomax Lymphocytes/100 WBC (Bld) 8.2 % Critically low 20.5-60.0 [facility] Comment on above: Performed By: #### C BC #### [facility] [address] [place] [address] Dr. Jessie Lomax MANUAL DIFF REQ NO Normal [facility] Comment on above: Performed By: #### C BC #### [facility] [address] [address] [address] Jessie Lomax MCH (RBC) [Entitic mass] 31.0 pg Normal 25.9-34.0 [facility] Comment on above: Performed By: #### C BC #### [facility] [address] [address] [address] Jessie Lomax MCHC (RBC) [Mass/Vol] 33.5 g/dL Normal 29.9-35.2 [facility] Comment on above: Performed By: #### C BC #### [facility] [address] [address] [address] Jessie Lomax MCV (RBC) [Entitic vol] 92.5 fL Normal 80.0-94.0 [facility] Comment on above: Performed By: #### C BC #### [facility] [address] [place] [address] Dr. Jessie Lomax MONO # 0.6 103/ul Normal 0.3-0.8 [facility] Comment on above: Performed By: #### C BC #### [facility] [address] [address] [address] Jessie Lomax Monocytes/100 WBC (Bld) 4.9 % Normal 1.7-12.0 [facility] Comment on above: Performed By: #### C BC #### [facility] [address] [address] [address] Jessie Lomax NEUT # 10.5 103/ul Critically high 1.4-6.5 [facility] Comment on above: Performed By: #### C BC #### [facility] [address] [address] [address] Jessie Lomax Neutrophils/100 WBC (Bld) 85.4 % Critically high 43.0-75.0 [facility] Comment on above: Performed By: #### C BC #### [facility] [address] [place] [address] Dr. Jessie Lomax Platelet mean volume (Bld) [Entitic vol] 9.3 fL Critically low 9.5-13.5 [facility] Comment on above: Performed By: #### C BC #### [facility] [address] [address] [address] Jessie Lomax PLT 259 103/ul Normal 150-450 [facility] Comment on above: Performed By: #### C BC #### [facility] [address] [place] [address] Dr. Jessie Lomax RBC 5.36 106/ul Normal 4.70-6.10 [facility] Comment on above: Performed By: #### C BC #### [facility] [address] [place] [address] Dr. Jessie Lomax WBC 12.3 103/ul Critically high 4.0-11.0 [facility] Comment on above: Performed By: #### C BC #### [facility] [address] [place] [address] Dr. Jessie Lomax LACTATE/LACTIC ACIDon 2022 Lactate [Moles/Vol] 2.9 mmol/L Critically high 0.4-2.0 [facility] Comment on above: Performed By: #### C MP #### [facility] [address] [place] [address] Dr. Jessie Lomax PROF CHEM 8 (BAS METB)on Anion gap [Moles/Vol] 8.7 mmol/L Normal [facility] Comment on above: Performed By: #### A CETON #### [facility] [address] [place] [address] Dr. Jessie Lomax Calcium [Mass/Vol] 8.9 mg/dL Normal 8.5-10.1 [facility] Comment on above: Performed By: #### A CETON #### [facility] [address] [place] [address] Dr. Jessie Lomax Chloride [Moles/Vol] 100 mmol/L Normal 98-107 [facility] Comment on above: Performed By: #### A CETON #### [facility] [address] [place] [address] Dr. Jessie Lomax CO2 [Moles/Vol] 32.6 mmol/L Critically high 21.0-32.0 [facility] Comment on above: Performed By: #### A CETON #### [facility] [address] [place] [address] Dr. Jessie Lomax Creatinine [Mass/Vol] 1.32 mg/dL Critically high 0.70-1.30 [facility] Comment on above: Performed By: #### A CETON #### [facility] [address] [address] [address] Jessie Lomax EGFR-AF CITIZ[place] >60 Normal >=60 [facility] Comment on above: Performed By: #### A CETON #### [facility] [address] [address] [address] Jessie Lomax EGFR-NON AF [place]IZEN [place] 55 mL/min/1.73m2 Critically low >=60 [facility] Comment on above: Performed By: #### A CETON #### [facility] [address] [address] [address] Jessie Lomax Glucose [Mass/Vol] 360 mg/dL Critically high 74-106 [facility] Comment on above: Performed By: #### A CETON #### [facility] [address] [place] [address] Dr. Jessie Lomax Potassium [Moles/Vol] 4.3 mmol/L Normal 3.5-5.1 [facility] Comment on above: Performed By: #### A CETON #### [facility] [address] [address] [address] Jessie Lomax Sodium [Moles/Vol] 137 mmol/L Normal 136-145 [facility] Comment on above: Performed By: #### A CETON #### [facility] [address] [address] [address] Jessie Lomax Urea nitrogen [Mass/Vol] 20.0 mg/dL Critically high 7.0-18.0 [facility] Comment on above: Performed By: #### A CETON #### [facility] [address] [address] [address] Jessie Lomax Urea nitrogen/Creatinine [Mass ratio] 15.2 mg/mg Normal [facility] Comment on above: Performed By: #### A CETON #### [facility] [address] [place] [address] Dr. Jessie Lomax XR CHEST 1 Von [...] SOLA SHELL Date: 2022-10-03 20:56 Normal [facility] URINE PROFILEon 3 Bilirubin Ql (U) Negative Normal NEGATIVE [facility] Comment on above: Performed By: #### T TYLER #### [facility] [address] [place] [address] Dr. Jessie Lomax Clarity (U) CLEAR Normal CLEAR [facility] Comment on above: Performed By: #### T TYLER #### [facility] [address] [place] [address] Dr. Jessie Lomax Color (U) LT. YELLOW Normal YELLOW [facility] Comment on above: Performed By: #### T TYLER #### [facility] [address] [place] [address] Dr. Jessie BROOKS A micrscopic examination will be performed if indicated. Normal [facility] Comment on above: Performed By: #### T TYLER #### [facility] [address] [place] [address] Dr. Jessie Lomax Glucose Ql (U) >1000 Abnormal NEGATIVE [facility] Comment on above: Performed By: #### T TYLER #### [facility] [address] [place] [address] Dr. Jessie Lomax Hemoglobin Ql (U) Negative Normal NEGATIVE [facility] Comment on above: Performed By: #### T TYLER #### [facility] [address] [place] [address] Dr. Jessie Lomax Ketones Ql (U) Negative Normal NEGATIVE [facility] Comment on above: Performed By: #### T TYLER #### [facility] [address] [place] [address] Dr. Jessie Lomax LEUKOCYTES Negative Normal NEGATIVE [facility] Comment on above: Performed By: #### T TYLER #### [facility] [address] [place] [address] Dr. Jessie Lomax Nitrite Ql (U) Negative Normal NEGATIVE [facility] Comment on above: Performed By: #### T TYLER #### [facility] [address] [place] [address] Dr. Jessie Lomax pH (U) 6.0 [pH] Normal 5-9 [facility] Comment on above: Performed By: #### T TYLER #### [facility] [address] [place] [address] Dr. Jessie Lomax SPEC GRAVITY <=1.005 Abnormal 1.005-<=1.025 [facility] Comment on above: Performed By: #### T TYLER #### [facility] [address] [place] [address] Dr. Jessie Lomax UA PROTEIN Negative Normal NEGATIVE/ TRACE [facility] Comment on above: Performed By: #### T TYLER #### [facility] [address] [place] [address] Dr. Jessie Lomax UR MICRO IND NOT INDICATED Normal [facility] Comment on above: Performed By: #### T TYLER #### [facility] [address] [place] [address] Dr. Jessie Lomax Urobilinogen Qn (U) 0.2 {Angelique'U}/dL Normal 0.2 - 1. 0 [facility] Comment on above: Performed By: #### T TYLER #### [facility] [address] [place] [address] Dr. Jessie Lomax CBC AUTO DIFFon 08-30-2022 BASO # 0.0 103/ul Normal 0.0-0.1 [facility] Comment on above: Performed By: #### C BC #### [facility] [address] [address] [address] Jessie Lomax Basophils/100 WBC (Bld) 0.1 % Critically low 0.2-2.0 [facility] Comment on above: Performed By: #### C BC #### [facility] [address] [place] [address] Dr. Jessie Lomax EO # 0.0 103/ul Normal 0.0-0.7 [facility] Comment on above: Performed By: #### C BC #### [facility] [address] [place] [address] Dr. Jessie Lomax Eosinophils/100 WBC (Bld) 0.1 % Critically low 0.9-7.0 [facility] Comment on above: Performed By: #### C BC #### [facility] [address] [place] [address] Dr. Jessie Lomax Erythrocyte distribution width (RBC) [Ratio] 13.6 % Normal 11.0-15.0 [facility] Comment on above: Performed By: #### C BC #### [facility] [address] [place] [address] Dr. Jessie Lomax Hematocrit (Bld) [Volume fraction] 46.3 % Normal 42.0-54.0 [facility] Comment on above: Performed By: #### C BC #### [facility] [address] [place] [address] Dr. Jessie Lomax Hemoglobin (Bld) [Mass/Vol] 15.4 g/dL Normal 14.0-18.0 [facility] Comment on above: Performed By: #### C BC #### [facility] [address] [place] [address] Dr. Jessie Lomax IG # 0.08 10e3/ul Critically high 0.00-0.03 [facility] Comment on above: Performed By: #### C BC #### [facility] [address] [place] [address] Dr. Jessie Lomax IG % 0.6 % Critically high 0.0-0.5 [facility] Comment on above: Performed By: #### C BC #### [facility] [address] [place] [address] Dr. Jessie Lomax LYMPH # 0.8 103/ul Critically low 1.2-3.8 [facility] Comment on above: Performed By: #### C BC #### [facility] [address] [place] [address] Dr. Jessie Lomax Lymphocytes/100 WBC (Bld) 5.7 % Critically low 20.5-60.0 [facility] Comment on above: Performed By: #### C BC #### [facility] [address] [place] [address] Dr. Jessie Lomax MANUAL DIFF REQ NO Normal [facility] Comment on above: Performed By: #### C BC #### [facility] [address] [place] [address] Dr. Jessie Lomax MCH (RBC) [Entitic mass] 30.2 pg Normal 25.9-34.0 [facility] Comment on above: Performed By: #### C BC #### [facility] [address] [place] [address] Dr. Jessie Lomax MCHC (RBC) [Mass/Vol] 33.3 g/dL Normal 29.9-35.2 [facility] Comment on above: Performed By: #### C BC #### [facility] [address] [place] [address] Dr. Jessie Lomax MCV (RBC) [Entitic vol] 90.8 fL Normal 80.0-94.0 [facility] Comment on above: Performed By: #### C BC #### [facility] [address] [place] [address] Dr. Jessie Lomax MONO # 0.4 103/ul Normal 0.3-0.8 [facility] Comment on above: Performed By: #### C BC #### [facility] [address] [place] [address] Dr. Jessie Lomax Monocytes/100 WBC (Bld) 2.9 % Normal 1.7-12.0 [facility] Comment on above: Performed By: #### C BC #### [facility] [address] [place] [address] Dr. Jessie Lomax NEUT # 12.3 103/ul Critically high 1.4-6.5 [facility] Comment on above: Performed By: #### C BC #### [facility] [address] [place] [address] Dr. Jessie Lomax Neutrophils/100 WBC (Bld) 90.6 % Critically high 43.0-75.0 [facility] Comment on above: Performed By: #### C BC #### [facility] [address] [place] [address] Dr. Jessie Lomax Platelet mean volume (Bld) [Entitic vol] 9.3 fL Critically low 9.5-13.5 [facility] Comment on above: Performed By: #### C BC #### [facility] [address] [place] [address] Dr. Jessie Lomax PLT 389 103/ul Normal 150-450 [facility] Comment on above: Performed By: #### C BC #### [facility] [address] [place] [address] Dr. Jessie Lomax RBC 5.10 106/ul Normal 4.70-6.10 [facility] Comment on above: Performed By: #### C BC #### [facility] [address] [place] [address] Dr. Jessie Lomax WBC 13.6 103/ul Critically high 4.0-11.0 [facility] Comment on above: Performed By: #### C BC #### [facility] [address] [place] [address] Dr. Jessie Lomax POINT OF CARE GLUCOSEon 08-18 Glucose [Mass/Vol] 283 mg/dL Critically high 74-106 [facility] Comment on above: Performed By: #### C BC #### [facility] [address] [place] [address] Dr. Jessie Lomax Glucose [Mass/Vol] 315 mg/dL Critically high 74-106 [facility] Comment on above: Performed By: #### T TYLER #### [facility] [address] [place] [address] Dr. Jessie Lomax PROF 14(COMP METB)on 023 Albumin [Mass/Vol] 3.7 g/dL Normal 3.4-5.0 [facility] Comment on above: Performed By: #### C MP #### [facility] [address] [place] [address] Dr. Jessie Lomax Albumin/Globulin [Mass ratio] 1.0 {ratio} Normal [facility] Comment on above: Performed By: #### C MP #### [facility] [address] [place] [address] Dr. Jessie Lomax ALP [Catalytic activity/Vol] 94 U/L Normal 46-116 [facility] Comment on above: Performed By: #### C MP #### [facility] [address] [place] [address] Dr. Jessie Lomax ALT [Catalytic activity/Vol] 23 U/L Normal 16-63 [facility] Comment on above: Performed By: #### C MP #### [facility] [address] [place] [address] Dr. Jessie Lomax Anion gap [Moles/Vol] 13.6 mmol/L Normal [facility] Comment on above: Performed By: #### C MP #### [facility] [address] [place] [address] Dr. Jessie Lomax AST [Catalytic activity/Vol] 9 U/L Critically low 15-37 [facility] Comment on above: Performed By: #### C MP #### [facility] [address] [place] [address] Dr. Jessie Lomax Bilirubin [Mass/Vol] 0.3 mg/dL Normal 0.2-1.0 [facility] Comment on above: Performed By: #### C MP #### [facility] [address] [place] [address] Dr. Jessie Lomax Calcium [Mass/Vol] 9.8 mg/dL Normal 8.5-10.1 [facility] Comment on above: Performed By: #### C MP #### [facility] [address] [place] [address] Dr. Jessie Lomax Chloride [Moles/Vol] 99 mmol/L Normal 98-107 [facility] Comment on above: Performed By: #### C MP #### [facility] [address] [address] [address] Jessie Lomax CO2 [Moles/Vol] 29.2 mmol/L Normal 21.0-32.0 [facility] Comment on above: Performed By: #### C MP #### [facility] [address] [address] [address] Jessie Lomax Creatinine [Mass/Vol] 1.17 mg/dL Normal 0.70-1.30 [facility] Comment on above: Performed By: #### C MP #### [facility] [address] [place] [address] Dr. Jessie Lomax EGFR-AF CITIZ[place] >60 Normal >=60 [facility] Comment on above: Performed By: #### C MP #### [facility] [address] [place] [address] Dr. Jessie Lomax EGFR-NON AF CITIZEN OF [place] >60 Normal >=60 [facility] Comment on above: Performed By: #### C MP #### [facility] [address] [address] [address] Jessie Lomax Globulin (S) [Mass/Vol] 3.6 g/dL Normal [facility] Comment on above: Performed By: #### C MP #### [facility] [address] [place] [address] Dr. Jessie Lomax Glucose [Mass/Vol] 259 mg/dL Critically high 74-106 [facility] Comment on above: Performed By: #### C MP #### [facility] [address] [place] [address] Dr. Jessie Lomax Potassium [Moles/Vol] 3.8 mmol/L Normal 3.5-5.1 [facility] Comment on above: Performed By: #### C MP #### [facility] [address] [address] [address] Jessie Lomax Protein [Mass/Vol] 7.3 g/dL Normal 6.4-8.2 [facility] Comment on above: Performed By: #### C MP #### [facility] [address] [address] [address] Jessie Lomax Sodium [Moles/Vol] 138 mmol/L Normal 136-145 [facility] Comment on above: Performed By: #### C MP #### [facility] [address] [address] [address] Jessie Lomax Urea nitrogen [Mass/Vol] 21.0 mg/dL Critically high 7.0-18.0 [facility] Comment on above: Performed By: #### C MP #### [facility] [address] [place] [address] Dr. Jessie Lomax Urea nitrogen/Creatinine [Mass ratio] 17.9 mg/mg [facility] Comment on above: Performed By: #### C MP #### [facility] [address] [place] [address] Dr. Jessie Lomax BLOOD GASES BTYon 08-29-2022 02 MODE HAND HELD NEB [facility] Comment on above: Performed By: #### C MP #### [facility] [address] [place] [address] Dr. Jessie Lomax ALLENS TEST Positive [facility] Comment on above: Performed By: #### C MP #### [facility] [address] [place] [address] Dr. Jessie Lomax Base excess Calc (Bld) [Moles/Vol] 2.1 mmol/L Critically high -2.0-2.0 [facility] Comment on above: Performed By: #### C MP #### [facility] [address] [place] [address] Dr. Jessie Lomax BIPAP PRESSURE [facility] Comment on above: Performed By: #### C MP #### [facility] [address] [place] [address] Dr. Jessie Lomax CPAP [facility] Comment on above: Performed By: #### C MP #### [facility] [address] [place] [address] Dr. Jessie Lomax FIO2 [facility] Comment on above: Performed By: #### C MP #### [facility] [address] [place] [address] Dr. Jessie Lomax HCO3 (Bld) [Moles/Vol] 27.7 mmol/L Critically high 22.0-26.0 [facility] Comment on above: Performed By: #### C MP #### [facility] [address] [place] [address] Dr. Jessie Lomax LPM 6 Normal [facility] Comment on above: Performed By: #### C MP #### [facility] [address] [place] [address] Dr. Jessie Lomax MINUTE VOLUME Normal [facility] Comment on above: Performed By: #### C MP #### [facility] [address] [place] [address] Dr. Jessie Lomax Oxygen (Bld) [Partial pressure] 90.6 mm[Hg] Normal 80.0-100.0 [facility] Comment on above: Performed By: #### C MP #### [facility] [address] [place] [address] Dr. Jessie Lomax Oxygen saturation in Blood 95.5 % Normal 95.0-100.0 [facility] Comment on above: Performed By: #### C MP #### [facility] [address] [place] [address] Dr. Jessie Lomax PCO2 49.7 mmHg Critically high 35.0-45.0 [facility] Comment on above: Performed By: #### C MP #### [facility] [address] [place] [address] Dr. Jessie Lomax PEEP [facility] Comment on above: Performed By: #### C MP #### [facility] [address] [place] [address] Dr. Jessie Lomax pH (Bld) 7.354 [pH] Normal 7.350-7.450 [facility] Comment on above: Performed By: #### C MP #### [facility] [address] [place] [address] Dr. Jessie Lomax PIP [facility] Comment on above: Performed By: #### C MP #### [facility] [address] [place] [address] Dr. Jessie Lomax PS [facility] Comment on above: Performed By: #### C MP #### [facility] [address] [place] [address] Dr. Jessie Lomax PUNCTURE SITE RR [facility] Comment on above: Performed By: #### C MP #### [facility] [address] [place] [address] Dr. Jessie Lomax [facility] Comment on above: Performed By: #### C MP #### [facility] [address] [address] [address] Jessie Lomax VENT MODE [facility] Comment on above: Performed By: #### C MP #### [facility] [address] [place] [address] Dr. Jessie Lomax [facility] Comment on above: Performed By: #### C MP #### [facility] [address] [place] [address] Dr. Jessie Lomax BNPon 08-29-2022 Natriuretic peptide B (Bld) [Mass/Vol] 130.0 pg/mL Normal <=900.0 [facility] Comment on above: Performed By: #### B [id number] #### [facility] [address] [place] [address] Dr. Jessie Lomax CARDIAC JUSTINE ADMITon 023 CK [Catalytic activity/Vol] 41 U/L Normal 39-308 [facility] Comment on above: Performed By: #### B [id number] #### [facility] [address] [place] [address] Dr. Jessie Lomax CK.MB [Mass/Vol] 1.87 ng/mL Normal <=3.60 [facility] Comment on above: Performed By: #### B LDCX1 #### [facility] [address] [place] [address] Dr. Jessie Lomax HSTROP 27.3 pg/mL Normal 4.0-76.1 [facility] Comment on above: Result Comment: CUT- OFF POINTS HAVE BEEN ESTABLISHED BASED ON THE FOURTH UNIVERSAL DEFINITIONS OF MYOCARDIAL INFARCTION. THE UPPER REFERENCE LIMIT (URL) OF TROPONIN, DEFINED THE 99TH PERCENTILE OF cTnI DISTRIBUTION IN A REFERENCE POPULATION, HAS BEEN CONFIRMED THE DECISION THRESHOLD FOR [place] DIAGNOSIS. Performed By: #### B LDCX1 #### [facility] [address] [place] [address] Dr. Jessie Lomax HERLINDA 36 ng/mL Normal 16-96 [facility] Comment on above: Performed By: #### B [id number] #### [facility] [address] [place] [address] Dr. Jessie Lomax CBC AUTO DIFFon 08-29-2022 BASO # 0.1 103/ul Normal 0.0-0.1 [facility] Comment on above: Performed By: #### C BC #### [facility] [address] [place] [address] Dr. Jessie Lomax Basophils/100 WBC (Bld) 0.7 % Normal 0.2-2.0 [facility] Comment on above: Performed By: #### C BC #### [facility] [address] [place] [address] Dr. Jessie Lomax EO # 0.1 103/ul Normal 0.0-0.7 [facility] Comment on above: Performed By: #### C BC #### [facility] [address] [place] [address] Dr. Jessie Lomax Eosinophils/100 WBC (Bld) 0.8 % Critically low 0.9-7.0 [facility] Comment on above: Performed By: #### C BC #### [facility] [address] [place] [address] Dr. Jessie Lomax Erythrocyte distribution width (RBC) [Ratio] 13.6 % Normal 11.0-15.0 [facility] Comment on above: Performed By: #### C BC #### [facility] [address] [place] [address] Dr. Jessie Lomax Hematocrit (Bld) [Volume fraction] 51.6 % Normal 42.0-54.0 [facility] Comment on above: Performed By: #### C BC #### [facility] [address] [address] [address] Jessie Lomax Hemoglobin (Bld) [Mass/Vol] 17.1 g/dL Normal 14.0-18.0 [facility] Comment on above: Performed By: #### C BC #### [facility] [address] [address] [address] Jessie Lomax IG # 0.05 10e3/ul Critically high 0.00-0.03 [facility] Comment on above: Performed By: #### C BC #### [facility] [address] [place] [address] Dr. Jessie Lomax IG % 0.5 % Normal 0.0-0.5 [facility] Comment on above: Performed By: #### C BC #### [facility] [address] [place] [address] Dr. Jessie Lomax LYMPH # 2.1 103/ul Normal 1.2-3.8 [facility] Comment on above: Performed By: #### C BC #### [facility] [address] [place] [address] Dr. Jessie Lomax Lymphocytes/100 WBC (Bld) 20.9 % Normal 20.5-60.0 [facility] Comment on above: Performed By: #### C BC #### [facility] [address] [place] [address] Dr. Jessie Lomax MANUAL DIFF REQ NO Normal [facility] Comment on above: Performed By: #### C BC #### [facility] [address] [place] [address] Dr. Jessie Lomax MCH (RBC) [Entitic mass] 30.7 pg Normal 25.9-34.0 [facility] Comment on above: Performed By: #### C BC #### [facility] [address] [place] [address] Dr. Jessie Lomax MCHC (RBC) [Mass/Vol] 33.1 g/dL Normal 29.9-35.2 [facility] Comment on above: Performed By: #### C BC #### [facility] [address] [address] [address] Jessie Lomax MCV (RBC) [Entitic vol] 92.6 fL Normal 80.0-94.0 [facility] Comment on above: Performed By: #### C BC #### [facility] [address] [place] [address] Dr. Jessie Lomax MONO # 1.0 103/ul Critically high 0.3-0.8 [facility] Comment on above: Performed By: #### C BC #### [facility] [address] [place] [address] Dr. Jessie Lomax Monocytes/100 WBC (Bld) 9.5 % Normal 1.7-12.0 [facility] Comment on above: Performed By: #### C BC #### [facility] [address] [place] [address] Dr. Jessie Lomax NEUT # 6.7 103/ul Critically high 1.4-6.5 [facility] Comment on above: Performed By: #### C BC #### [facility] [address] [place] [address] Dr. Jessie Lomax Neutrophils/100 WBC (Bld) 67.6 % Normal 43.0-75.0 [facility] Comment on above: Performed By: #### C BC #### [facility] [address] [place] [address] Dr. Jessie Lomax Platelet mean volume (Bld) [Entitic vol] 9.5 fL Normal 9.5-13.5 [facility] Comment on above: Performed By: #### C BC #### [facility] [address] [place] [address] Dr. Jessie Lomax PLT 407 103/ul Normal 150-450 [facility] Comment on above: Performed By: #### C BC #### [facility] [address] [place] [address] Dr. Jessie Lomax RBC 5.57 106/ul Normal 4.70-6.10 [facility] Comment on above: Performed By: #### C BC #### [facility] [address] [place] [address] Dr. Jessie Lomax WBC 10.0 103/ul Normal 4.0-11.0 [facility] Comment on above: Performed By: #### C BC #### [facility] [address] [place] [address] Dr. Jessie Lomax CULTURE BLOODon 08-29-2022 Microscopic examination of blood, culture Culture Observations: NO GROWTH AT 5 DAYS. Normal [facility] Comment on above: Performed By: #### C MP #### [facility] [address] [place] [address] Dr. Jessie Lomax Microscopic examination of blood, culture Culture Observations: NO GROWTH AT 5 DAYS. Normal [facility] Comment on above: Performed By: #### B [id number] #### [facility] [address] [place] [address] Dr. Jessie Lomax [facility] SARS-CoV-2 (COVID-19) RNA YOLANDA+probe Ql (Unsp spec) Not detected Normal NOT DETECTED [facility] Comment on above: Result Comment: When [...] for this test is supported by the [place] of [employer] and Human Service's declaration that [...] used). Performed By: #### B LDCX1 #### [facility] [address] [place] [address] Dr. Jessie Lomax ER URINE PROFILEon 3 Bilirubin Ql (U) Negative Normal NEGATIVE [facility] Comment on above: Performed By: #### A CETON #### [facility] [address] [place] [address] Dr. Jessie Lomax Clarity (U) CLEAR Normal CLEAR [facility] Comment on above: Performed By: #### A CETON #### [facility] [address] [place] [address] Dr. Jessie Lomax Color (U) YELLOW Normal YELLOW [facility] Comment on above: Performed By: #### A CETON #### [facility] [address] [place] [address] Dr. Jessie Jara micrscopic examination will be performed if indicated. Normal [facility] Comment on above: Performed By: #### A CETON #### [facility] [address] [place] [address] Dr. Jessie Lomax Glucose Ql (U) 500 mg/dl Abnormal NEGATIVE [facility] Comment on above: Performed By: #### A CETON #### [facility] [address] [place] [address] Dr. Jessie Lomax Hemoglobin Ql (U) Negative Normal NEGATIVE [facility] Comment on above: Performed By: #### A CETON #### [facility] [address] [place] [address] Dr. Jessie Lomax Ketones Ql (U) TRACE Abnormal NEGATIVE [facility] Comment on above: Performed By: #### A CETON #### [facility] [address] [place] [address] Dr. Jessie Lomax LEUKOCYTES Negative Normal NEGATIVE [facility] Comment on above: Performed By: #### A CETON #### [facility] [address] [place] [address] Dr. Jessie Lomax Nitrite Ql (U) Negative Normal NEGATIVE [facility] Comment on above: Performed By: #### A CETON #### [facility] [address] [place] [address] Dr. Jessie Lomax pH (U) 5.5 [pH] Normal 5-9 [facility] Comment on above: Performed By: #### A CETON #### [facility] [address] [place] [address] Dr. Jessie Lomax SPEC GRAVITY >=1.030 Abnormal 1.005-<=1.025 [facility] Comment on above: Performed By: #### A CETON #### [facility] [address] [place] [address] Dr. Jessie Lomax UA PROTEIN Negative Normal NEGATIVE/ TRACE [facility] Comment on above: Performed By: #### A CETON #### [facility] [address] [place] [address] Dr. Jessie Lomax UR MICRO IND NOT INDICATED Normal [facility] Comment on above: Performed By: #### A CETON #### [facility] [address] [place] [address] Dr. Jessie Lomax Urobilinogen Qn (U) 0.2 {Angelique'U}/dL Normal 0.2 - 1. 0 [facility] Comment on above: Performed By: #### A CETON #### [facility] [address] [place] [address] Dr. Jessie Lomax LACTATE/LACTIC ACIDon 2022 Lactate [Moles/Vol] 1.6 mmol/L Normal 0.4-1.9 [facility] Comment on above: Performed By: #### L ACT #### [facility] [address] [place] [address] Dr. Jessie Lomax POINT OF CARE GLUCOSEon 08-18 Glucose [Mass/Vol] 330 mg/dL Critically high -106 [facility] Comment on above: Performed By: #### A CETON #### [facility] [address] [place] [address] Dr. Jessie Lomax Glucose [Mass/Vol] 284 mg/dL Critically high -106 [facility] Comment on above: Performed By: #### C BC #### [facility] [address] [place] [address] Dr. Jessie Lomax Glucose [Mass/Vol] 379 mg/dL Critically high -106 [facility] Comment on above: Performed By: #### B [id number] #### [facility] [address] [address] [address] Jessie Lomax Glucose [Mass/Vol] 276 mg/dL Critically high 74-106 [facility] Comment on above: Performed By: #### T TYLER #### [facility] [address] [place] [address] Dr. Jessie Lomax PROF 14(COMP METB)on 023 Albumin [Mass/Vol] 3.8 g/dL Normal 3.4-5.0 [facility] Comment on above: Performed By: #### B [id number] #### [facility] [address] [place] [address] Dr. Jessie Lomax Albumin/Globulin [Mass ratio] 1.0 {ratio} Normal [facility] Comment on above: Performed By: #### B LDCX1 #### [facility] [address] [place] [address] Dr. Jessie Lomax ALP [Catalytic activity/Vol] 106 U/L Normal 46-116 [facility] Comment on above: Performed By: #### B LDCX1 #### [facility] [address] [place] [address] Dr. Jessie Lomax ALT [Catalytic activity/Vol] 27 U/L Normal 16-63 [facility] Comment on above: Performed By: #### B LDCX1 #### [facility] [address] [place] [address] Dr. Jessie Lomax Anion gap [Moles/Vol] 12.0 mmol/L Normal [facility] Comment on above: Performed By: #### B LDCX1 #### [facility] [address] [place] [address] Dr. Jessie Lomax AST [Catalytic activity/Vol] 15 U/L Normal 15-37 [facility] Comment on above: Performed By: #### B LDCX1 #### [facility] [address] [place] [address] Dr. Jessie Lomax Bilirubin [Mass/Vol] 0.3 mg/dL Normal 0.2-1.0 [facility] Comment on above: Performed By: #### B LDCX1 #### [facility] [address] [address] [address] Jessie Lomax Calcium [Mass/Vol] 10.0 mg/dL Normal 8.5-10.1 [facility] Comment on above: Performed By: #### B LDCX1 #### [facility] [address] [address] [address] Jessie Lomax Chloride [Moles/Vol] 101 mmol/L Normal 98-107 [facility] Comment on above: Performed By: #### B LDCX1 #### [facility] [address] [place] [address] Dr. Jessie Lomax CO2 [Moles/Vol] 32.4 mmol/L Critically high 21.0-32.0 [facility] Comment on above: Performed By: #### B LDCX1 #### [facility] [address] [place] [address] Dr. Jessie Lomax Creatinine [Mass/Vol] 1.14 mg/dL Normal 0.70-1.30 [facility] Comment on above: Performed By: #### B LDCX1 #### [facility] [address] [place] [address] Dr. Jessie Lomax EGFR-AF CITIZEN OF [place] >60 Normal >=60 [facility] Comment on above: Performed By: #### B LDCX1 #### [facility] Laboratory [address] [place] [address] Dr. Jessie Lomax EGFR-NON AF CITIZEN OF [place] >60 Normal >=60 [facility] Comment on above: Performed By: #### B [id number] #### [facility] [address] [place] [address] Dr. Jessie Lomax Globulin (S) [Mass/Vol] 3.7 g/dL Normal [facility] Comment on above: Performed By: #### B LDCX1 #### [facility] [address] [place] [address] Dr. Jessie Lomax Glucose [Mass/Vol] 204 mg/dL Critically high 74-106 [facility] Comment on above: Performed By: #### B [id number] #### [facility] [address] [address] [address] Jessie Lomax Potassium [Moles/Vol] 4.4 mmol/L Normal 3.5-5.1 [facility] Comment on above: Performed By: #### B [id number] #### [facility] [address] [address] [address] Jessie Lomax Protein [Mass/Vol] 7.5 g/dL Normal 6.4-8.2 [facility] Comment on above: Performed By: #### B LDCX1 #### [facility] [address] [address] [address] Jessie Lomax Sodium [Moles/Vol] 141 mmol/L Normal 136-145 [facility] Comment on above: Performed By: #### B [id number] #### [facility] [address] [place] [address] Dr. Jessie Lomax Urea nitrogen [Mass/Vol] 23.0 mg/dL Critically high 7.0-18.0 [facility] Comment on above: Performed By: #### B [id number] #### [facility] [address] [address] [address] Jessie Lomax Urea nitrogen/Creatinine [Mass ratio] 20.2 mg/mg Normal [facility] Comment on above: Performed By: #### B [id number] #### [facility] [address] [place] [address] Dr. Jessie Lomax THEOPHYLLINEon 08-29-2022 THEOPHYLLINE <2.0 Critically low 10.0-20.0 [facility] Comment on above: Performed By: #### B [id number] #### [facility] [address] [place] [address] Dr. Jessie Lomax XR CHEST 1 Von [...] YADIRA BALLESTEROS Date: 2022-08-29 02:03 Normal [facility] ACETONE SERUMon 08-17-2022 ACETONE Negative Normal NEGATIVE [facility] Comment on above: Performed By: #### A CETON #### [facility] [address] [place] [address] Dr. Jessie Lomax BNPon 08-17-2022 Natriuretic peptide B (Bld) [Mass/Vol] 294.0 pg/mL Normal <=900.0 [facility] Comment on above: Performed By: #### A CETON #### [facility] [address] [place] [address] Dr. Jessie Lomax CBC AUTO DIFFon 08-17-2022 BASO # 0.1 103/ul Normal 0.0-0.1 [facility] Comment on above: Performed By: #### C BC #### [facility] [address] [place] [address] Dr. Jessie Lomax Basophils/100 WBC (Bld) 0.7 % Normal 0.2-2.0 [facility] Comment on above: Performed By: #### C BC #### [facility] [address] [place] [address] Dr. Jessie Lomax EO # 0.1 103/ul Normal 0.0-0.7 [facility] Comment on above: Performed By: #### C BC #### [facility] [address] [place] [address] Dr. Jessie Lomax Eosinophils/100 WBC (Bld) 0.9 % Normal 0.9-7.0 [facility] Comment on above: Performed By: #### C BC #### [facility] [address] [place] [address] Dr. Jessie Lomax Erythrocyte distribution width (RBC) [Ratio] 13.4 % Normal 11.0-15.0 [facility] Comment on above: Performed By: #### C BC #### [facility] [address] [place] [address] Dr. Jessie Lomax Hematocrit (Bld) [Volume fraction] 43.2 % Normal 42.0-54.0 [facility] Comment on above: Performed By: #### C BC #### [facility] [address] [place] [address] Dr. Jessie Lomax Hemoglobin (Bld) [Mass/Vol] 14.5 g/dL Normal 14.0-18.0 [facility] Comment on above: Performed By: #### C BC #### [facility] [address] [place] [address] Dr. Jessie Lomax IG # 0.04 10e3/ul Critically high 0.00-0.03 [facility] Comment on above: Performed By: #### C BC #### [facility] [address] [place] [address] Dr. Jessie Lomax IG % 0.5 % Normal 0.0-0.5 [facility] Comment on above: Performed By: #### C BC #### [facility] [address] [place] [address] Dr. Jessie Lomax LYMPH # 1.9 103/ul Normal 1.2-3.8 [facility] Comment on above: Performed By: #### C BC #### [facility] [address] [place] [address] Dr. Jessie Lomax Lymphocytes/100 WBC (Bld) 22.1 % Normal 20.5-60.0 [facility] Comment on above: Performed By: #### C BC #### [facility] [address] [place] [address] Dr. Jessie Lomax MANUAL DIFF REQ NO Normal [facility] Comment on above: Performed By: #### C BC #### [facility] [address] [place] [address] Dr. Jessie Lomax MCH (RBC) [Entitic mass] 30.7 pg Normal 25.9-34.0 [facility] Comment on above: Performed By: #### C BC #### [facility] [address] [address] [address] Jessie Lomax MCHC (RBC) [Mass/Vol] 33.6 g/dL Normal 29.9-35.2 [facility] Comment on above: Performed By: #### C BC #### [facility] [address] [address] [address] Jessie Lomax MCV (RBC) [Entitic vol] 91.5 fL Normal 80.0-94.0 [facility] Comment on above: Performed By: #### C BC #### [facility] [address] [place] [address] Dr. Jessie Lomax MONO # 0.7 103/ul Normal 0.3-0.8 [facility] Comment on above: Performed By: #### C BC #### [facility] [address] [place] [address] Dr. Jessie Lomax Monocytes/100 WBC (Bld) 7.7 % Normal 1.7-12.0 [facility] Comment on above: Performed By: #### C BC #### [facility] [address] [place] [address] Dr. Jessie Lomax NEUT # 5.8 103/ul Normal 1.4-6.5 [facility] Comment on above: Performed By: #### C BC #### [facility] [address] [place] [address] Dr. Jessie Lomax Neutrophils/100 WBC (Bld) 68.1 % Normal 43.0-75.0 [facility] Comment on above: Performed By: #### C BC #### [facility] [address] [place] [address] Dr. Jessie Lomax Platelet mean volume (Bld) [Entitic vol] 9.0 fL Critically low 9.5-13.5 [facility] Comment on above: Performed By: #### C BC #### [facility] [address] [place] [address] Dr. Jessie Lomax PLT 275 103/ul Normal 150-450 [facility] Comment on above: Performed By: #### C BC #### [facility] [address] [place] [address] Dr. Jessie Lomax RBC 4.72 106/ul Normal 4.70-6.10 [facility] Comment on above: Performed By: #### C BC #### [facility] [address] [place] [address] Dr. Jessie Lomax WBC 8.6 103/ul Normal 4.0-11.0 [facility] Comment on above: Performed By: #### C BC #### [facility] [address] [place], [place] [id number] Dr. Jessie Lomax CTA CHEST WO W [...] DAVID GIBBS Date: 2022-08-17 17:23 Normal [facility] CULTURE BLOODon 08-17-2022 Microscopic examination of blood, culture Culture Observations: NO GROWTH AT 5 DAYS. Normal [facility] Comment on above: Performed By: #### C MP #### [facility] [address] [place] [address] Dr. Jessie Lomax Microscopic examination of blood, culture Culture Observations: NO GROWTH AT 5 DAYS. Normal [facility] Comment on above: Performed By: #### B [id number] #### [facility] [address] [place] [address] Dr. Jessie Lomax [facility] SARS-CoV-2 (COVID-19) RNA YOLANDA+probe Ql (Unsp spec) Not detected Normal NOT DETECTED [facility] Comment on above: Result Comment: When [...] for this test is supported by the [employer] and [employer] Service's declaration that [...] used). Performed By: #### C BC #### [facility] [address] [place] [address] Dr. Jessie Lomax LACTATE/LACTIC ACIDon 2022 Lactate [Moles/Vol] 2.0 mmol/L Critically high 0.4-1.9 [facility] Comment on above: Performed By: #### C BC #### [facility] [address] [place] [address] Dr. Jessie Lomax PH VENOUS BLOODon 08-17-2022 PCO2 VENOUS 44.5 mmHg Normal 40.0-52.0 [facility] Comment on above: Performed By: #### C BC #### [facility] [address] [place] [address] Dr. Jessie Lomax pH VENOUS 7.433 Critically high 7.330-7.430 [facility] Comment on above: Performed By: #### C BC #### [facility] [address] [place] [address] Dr. Jessie Lomax PROF 14(COMP METB)on 023 Albumin [Mass/Vol] 3.4 g/dL Normal 3.4-5.0 [facility] Comment on above: Performed By: #### C BC #### [facility] [address] [place] [address] Dr. Jessie Lomax Albumin/Globulin [Mass ratio] 1.1 {ratio} Normal [facility] Comment on above: Performed By: #### C BC #### [facility] [address] [place] [address] Dr. Jessie Lomax ALP [Catalytic activity/Vol] 90 U/L Normal 46-116 [facility] Comment on above: Performed By: #### C BC #### [facility] [address] [place] [address] Dr. Jessie Lomax ALT [Catalytic activity/Vol] 26 U/L Normal 16-63 [facility] Comment on above: Performed By: #### C BC #### [facility] [address] [place] [address] Dr. Jessie Lomax Anion gap [Moles/Vol] 11.1 mmol/L Normal [facility] Comment on above: Performed By: #### C BC #### [facility] [address] [place] [address] Dr. Jessie Lomax AST [Catalytic activity/Vol] 9 U/L Critically low 15-37 [facility] Comment on above: Performed By: #### C BC #### [facility] [address] [place] [address] Dr. Jessie Lomax Bilirubin [Mass/Vol] 0.2 mg/dL Normal 0.2-1.0 [facility] Comment on above: Performed By: #### C BC #### [facility] [address] [place] [address] Dr. Jessie Lomax Calcium [Mass/Vol] 9.0 mg/dL Normal 8.5-10.1 [facility] Comment on above: Performed By: #### C BC #### [facility] [address] [place] [address] Dr. Jessie Lomax Chloride [Moles/Vol] 103 mmol/L Normal 98-107 [facility] Comment on above: Performed By: #### C BC #### [facility] [address] [address] [address] Jessie Lomax CO2 [Moles/Vol] 31.5 mmol/L Normal 21.0-32.0 [facility] Comment on above: Performed By: #### C BC #### [facility] [address] [place] [address] Dr. Jessie Lomax Creatinine [Mass/Vol] 0.94 mg/dL Normal 0.70-1.30 [facility] Comment on above: Performed By: #### C BC #### [facility] [address] [place] [address] Dr. Jessie Lomax EGFR-AF CITIZEN [place] >60 Normal >=60 [facility] Comment on above: Performed By: #### C BC #### [facility] [address] [place] [address] Dr. Jessie Lomax EGFR-NON AF CITIZEN OF [place] >60 Normal >=60 [facility] Comment on above: Performed By: #### C BC #### [facility] [address] [place] [address] Dr. Jessie Lomax Globulin (S) [Mass/Vol] 3.2 g/dL Normal [facility] Comment on above: Performed By: #### C BC #### [facility] [address] [place] [address] Dr. Jessie Lomax Glucose [Mass/Vol] 124 mg/dL Critically high 74-106 [facility] Comment on above: Performed By: #### C BC #### [facility] [address] [place] [address] Dr. Jessie Lomax Potassium [Moles/Vol] 3.6 mmol/L Normal 3.5-5.1 [facility] Comment on above: Performed By: #### C BC #### [facility] [address] [place] [address] Dr. Jessie Lomax Protein [Mass/Vol] 6.6 g/dL Normal 6.4-8.2 [facility] Comment on above: Performed By: #### C BC #### [facility] [address] [place] [address] Dr. Jessie Lomax Sodium [Moles/Vol] 142 mmol/L Normal 136-145 [facility] Comment on above: Performed By: #### C BC #### [facility] [address] [place] [address] Dr. Jessie Lomax Urea nitrogen [Mass/Vol] 14.0 mg/dL Normal 7.0-18.0 [facility] Comment on above: Performed By: #### C BC #### [facility] [address] [place] [address] Dr. Jessie Lomax Urea nitrogen/Creatinine [Mass ratio] 14.9 mg/mg Normal [facility] Comment on above: Performed By: #### C BC #### [facility] [address] [place] [address] Dr. Jessie Lomax PROTIMEon 08-17-2022 INR Coag (PPP) [Relative time] {INR} Normal [facility] Comment on above: Performed By: #### B LDCX1 #### [facility] [address] [place] [address] Dr. Jessie Lomax INR GUIDELINES SEE BELOW Normal [facility] Comment on above: Result Comment: VANESSA RED INR: 2.0 - 3.0 CONDITIONS NOT LISTED BELOW 2.5 - 3.5 FOR PROSTHETIC HEART VALVE REPLACEMENT 2.5 - 3.5 RECURRENT THROMBOSIS Performed By: #### B LDCX1 #### [facility] [address] [place] [address] Dr. Jessie Lomax PT Coag (PPP) [Time] 9.7 s Normal 9.0-11.6 [facility] Comment on above: Performed By: #### B LDCX1 #### [facility] [address] [place] [address] Dr. Jessie Lomax PTTon 08-17-2022 aPTT Coag (Bld) [Time] 23.4 s Normal 22.3-36.2 [facility] Comment on above: Performed By: #### B LDCX1 #### [facility] [address] [place] [address] Dr. Jessie Lomax TROPONIN, HIGH SENSITIVITYon 08-17-2022 HSTROP 14.6 pg/mL Normal 4.0-76.1 [facility] Comment on above: Result Comment: CUT- OFF POINTS HAVE BEEN ESTABLISHED BASED ON THE FOURTH UNIVERSAL DEFINITIONS OF MYOCARDIAL INFARCTION. THE UPPER REFERENCE LIMIT (URL) OF TROPONIN, DEFINED THE 99TH PERCENTILE OF cTnI DISTRIBUTION IN A REFERENCE POPULATION, HAS BEEN CONFIRMED THE DECISION THRESHOLD FOR [place] DIAGNOSIS. Performed By: #### A CETON #### [facility] [address] [place] [address] Dr. Jessie Lomax TSHon 08-17-2022 TSH 1.079 uIU/mL Normal 0.358-3.740 [facility] Comment on above: Performed By: #### C BC #### [facility] [address] [place] [address] Dr. Jessie Lomax THEOPHYLLINEon 08-10-2022 THEOPHYLLINE 11.3 ug/mL Normal 10.0-20.0 [facility] Comment on above: Performed By: #### T TYLER #### [facility] [address] [place] [address] Dr. Jessie Lomax CBC AUTO DIFFon 07-02-2022 BASO # 0.0 103/ul Normal 0.0-0.1 [facility] Comment on above: Performed By: #### T TYLER #### [facility] [address] [place] [address] Dr. Jessie Lomax Basophils/100 WBC (Bld) 0.1 % Critically low 0.2-2.0 [facility] Comment on above: Performed By: #### T TYLER #### [facility] [address] [place] [address] Dr. Jessie Lomax EO # 0.0 103/ul Normal 0.0-0.7 [facility] Comment on above: Performed By: #### T TYLER #### [facility] [address] [place] [address] Dr. Jessie Lomax Eosinophils/100 WBC (Bld) 0.1 % Critically low 0.9-7.0 [facility] Comment on above: Performed By: #### T TYLER #### [facility] [address] [address] [address] Jessie Lomax Erythrocyte distribution width (RBC) [Ratio] 13.6 % Normal 11.0-15.0 [facility] Comment on above: Performed By: #### T TYLER #### [facility] [address] [address] [address] Jessie Lomax Hematocrit (Bld) [Volume fraction] 44.4 % Normal 42.0-54.0 [facility] Comment on above: Performed By: #### T TYLER #### [facility] [address] [place] [address] Dr. Jessie Lomax Hemoglobin (Bld) [Mass/Vol] 14.9 g/dL Normal 14.0-18.0 [facility] Comment on above: Performed By: #### T TYLER #### [facility] [address] [place] [address] Dr. Jessie Lomax IG # 0.11 10e3/ul Critically high 0.00-0.03 [facility] Comment on above: Performed By: #### T TYLER #### [facility] [address] [place] [address] Dr. Jessie Lomax IG % 0.7 % Critically high 0.0-0.5 [facility] Comment on above: Performed By: #### T TYLER #### [facility] [address] [place] [address] Dr. Jessie Lomax LYMPH # 0.8 103/ul Critically low 1.2-3.8 [facility] Comment on above: Performed By: #### T TYLER #### [facility] [address] [place] [address] Dr. Jessie Lomax Lymphocytes/100 WBC (Bld) 5.1 % Critically low 20.5-60.0 [facility] Comment on above: Performed By: #### T TYLER #### [facility] [address] [place] [address] Dr. Jessie Lomax MANUAL DIFF REQ NO Normal [facility] Comment on above: Performed By: #### T TYLER #### [facility] [address] [address] [address] Jessie Lomax MCH (RBC) [Entitic mass] 31.1 pg Normal 25.9-34.0 [facility] Comment on above: Performed By: #### T TYLER #### [facility] [address] [place] [address] Dr. Jessie Lomax MCHC (RBC) [Mass/Vol] 33.6 g/dL Normal 29.9-35.2 [facility] Comment on above: Performed By: #### T TYLER #### [facility] [address] [place] [address] Dr. Jessie Lomax MCV (RBC) [Entitic vol] 92.7 fL Normal 80.0-94.0 [facility] Comment on above: Performed By: #### T TYLER #### [facility] [address] [place] [address] Dr. Jessie Lomax MONO # 0.4 103/ul Normal 0.3-0.8 [facility] Comment on above: Performed By: #### T TYLER #### [facility] [address] [place] [address] Dr. Jessie Lomax Monocytes/100 WBC (Bld) 2.6 % Normal 1.7-12.0 [facility] Comment on above: Performed By: #### T TYLER #### [facility] [address] [place] [address] Dr. Jessie Lomax NEUT # 13.8 103/ul Critically high 1.4-6.5 [facility] Comment on above: Performed By: #### T TYLER #### [facility] [address] [place] [address] Dr. Jessie Lomax Neutrophils/100 WBC (Bld) 91.4 % Critically high 43.0-75.0 [facility] Comment on above: Performed By: #### T TYLER #### [facility] [address] [place] [address] Dr. Jessie Lomax Platelet mean volume (Bld) [Entitic vol] 9.9 fL Normal 9.5-13.5 [facility] Comment on above: Performed By: #### T TYLER #### [facility] [address] [place] [address] Dr. Jessie Lomax PLT 300 103/ul Normal 150-450 [facility] Comment on above: Performed By: #### T TYLER #### [facility] [address] [address] [address] Jessie Lomax RBC 4.79 106/ul Normal 4.70-6.10 [facility] Comment on above: Performed By: #### T TYLER #### [facility] [address] [place] [address] Dr. Jessie Lomax WBC 15.1 103/ul Critically high 4.0-11.0 [facility] Comment on above: Performed By: #### T TYLER #### [facility] [address] [place] [address] Dr. Jessie Lomax POINT OF CARE GLUCOSEon 06-17 Glucose [Mass/Vol] 288 mg/dL Critically high 74-106 [facility] Comment on above: Performed By: #### C BC #### [facility] [address] [place] [address] Dr. Jessie Lomax Glucose [Mass/Vol] 280 mg/dL Critically high 74-106 [facility] Comment on above: Performed By: #### T TYLER #### [facility] [address] [place] [address] Dr. Jessie Lomax PROF 14(COMP METB)on 022 Albumin [Mass/Vol] 3.7 g/dL Normal 3.4-5.0 [facility] Comment on above: Performed By: #### C MP #### [facility] [address] [place] [address] Dr. Jessie Lomax Albumin/Globulin [Mass ratio] 1.1 {ratio} Normal [facility] Comment on above: Performed By: #### C MP #### [facility] [address] [place] [address] Dr. Jessie Lomax ALP [Catalytic activity/Vol] 73 U/L Normal 46-116 [facility] Comment on above: Performed By: #### C MP #### [facility] [address] [address] [address] Jessie Lomax ALT [Catalytic activity/Vol] 22 U/L Normal 16-63 [facility] Comment on above: Performed By: #### C MP #### [facility] [address] [address] [address] Jessie Lomax Anion gap [Moles/Vol] 13.4 mmol/L Normal [facility] Comment on above: Performed By: #### C MP #### [facility] [address] [address] [address] Jessie Lomax AST [Catalytic activity/Vol] 16 U/L Normal 15-37 [facility] Comment on above: Performed By: #### C MP #### [facility] [address] [address] [address] Jessie Lomax Bilirubin [Mass/Vol] 0.3 mg/dL Normal 0.2-1.0 [facility] Comment on above: Performed By: #### C MP #### [facility] [address] [address] [address] Jessie Lomax Calcium [Mass/Vol] 9.3 mg/dL Normal 8.5-10.1 [facility] Comment on above: Performed By: #### C MP #### [facility] [address] [address] [address] Jessie Lomax Chloride [Moles/Vol] 98 mmol/L Normal 98-107 [facility] Comment on above: Performed By: #### C MP #### [facility] [address] [address] [address] Jessie Lomax CO2 [Moles/Vol] 29.9 mmol/L Normal 21.0-32.0 [facility] Comment on above: Performed By: #### C MP #### [facility] [address] [address] [address] Jessie Lomax Creatinine [Mass/Vol] 1.18 mg/dL Normal 0.70-1.30 [facility] Comment on above: Performed By: #### C MP #### [facility] [address] [address] [address] Jessie Lomax EGFR-AF [place]IZ[place] >60 Normal >=60 [facility] Comment on above: Performed By: #### C MP #### [facility] [address] [address] [address] Jessie Lomax EGFR-NON AF CITIZEN OF [place] >60 Normal >=60 [facility] Comment on above: Performed By: #### C MP #### [facility] [address] [address] [address] Jessie Lomax Globulin (S) [Mass/Vol] 3.3 g/dL Normal [facility] Comment on above: Performed By: #### C MP #### [facility] [address] [address] [address] Jessie Lomax Glucose [Mass/Vol] 329 mg/dL Critically high 74-106 [facility] Comment on above: Performed By: #### C MP #### [facility] [address] [address] [address] Jessie Lomax Potassium [Moles/Vol] 4.3 mmol/L Normal 3.5-5.1 [facility] Comment on above: Performed By: #### C MP #### [facility] [address] [address] [address] Jessie Lomax Protein [Mass/Vol] 7.0 g/dL Normal 6.4-8.2 [facility] Comment on above: Performed By: #### C MP #### [facility] [address] [address] [address] Jessie Lomax Sodium [Moles/Vol] 137 mmol/L Normal 136-145 [facility] Comment on above: Performed By: #### C MP #### [facility] [address] [address] [address] Jessie Lomax Urea nitrogen [Mass/Vol] 21.0 mg/dL Critically high 7.0-18.0 [facility] Comment on above: Performed By: #### C MP #### [facility] [address] [place] [address] Dr. Jessie Lomax Urea nitrogen/Creatinine [Mass ratio] 17.8 mg/mg Normal [facility] Comment on above: Performed By: #### C MP #### [facility] [address] [place] [address] Dr. Jessie Lomax CBC W MANUAL DIFFon 07-01-20 22 ATYPICAL LYMPH # Normal [facility] Comment on above: Performed By: #### C BC #### [facility] [address] [place] [address] Dr. Jessie Lomax ATYPICAL LYMPH % Normal [facility] Comment on above: Performed By: #### C BC #### [facility] [address] [place] [address] Dr. Jessie Lomax BAND # 0.1 103/ul Normal 0.0-0.3 [facility] Comment on above: Performed By: #### C BC #### [facility] [address] [place] [address] Dr. Jessie Lomax BAND % 1 % Normal 0-5 [facility] Comment on above: Performed By: #### C BC #### [facility] [address] [place] [address] Dr. Jessie Lomax BASOM # 0.00 103/ul Normal 0.00-0.10 [facility] Comment on above: Performed By: #### C BC #### [facility] [address] [place] [address] Dr. Jessie Lomax BASOM % 0.0 % Critically low 0.2-2.0 [facility] Comment on above: Performed By: #### C BC #### [facility] [address] [place] [address] Dr. Jessie Lomax BLAST # Normal [facility] Comment on above: Performed By: #### C BC #### [facility] [address] [place] [address] Dr. Jessie Lomax BLAST % Normal [facility] Comment on above: Performed By: #### C BC #### [facility] [address] [place] [address] Dr. Jessie Lomax CORRECTED WBC Normal 4.0-11.0 [facility] Comment on above: Performed By: #### C BC #### [facility] [address] [address] [address] Jessie Lomax EOS # 0.12 103/ul Normal 0.00-0.70 [facility] Comment on above: Performed By: #### C BC #### [facility] [address] [address] [address] Jessie Lomax EOS% 1.0 % Normal 0.9-7.0 [facility] Comment on above: Performed By: #### C BC #### [facility] [address] [address] [address] Jessie Lomax HCT 45.4 % Normal 42.0-54.0 [facility] Comment on above: Performed By: #### C BC #### [facility] [address] [place] [address] Dr. Jessie Lomax HGB 15.5 g/dl Normal 14.0-18.0 [facility] Comment on above: Performed By: #### C BC #### [facility] [address] [place] [address] Dr. Jessie Lomax LYMPHM # 0.48 103/ul Critically low 1.20-3.80 [facility] Comment on above: Performed By: #### C BC #### [facility] [address] [place] [address] Dr. Jessie Lomax LYMPHM% 4.0 % Critically low 20.5-60.0 [facility] Comment on above: Performed By: #### C BC #### [facility] [address] [place] [address] Dr. Jessie Lomax MCH 31.8 pg Normal 25.9-34.0 [facility] Comment on above: Performed By: #### C BC #### [facility] [address] [place] [address] Dr. Jessie Lomax MCHC 34.1 g/dl Normal 29.9-35.2 [facility] Comment on above: Performed By: #### C BC #### [facility] [address] [place] [address] Dr. Jessie Lomax MCV 93.0 fL Normal 80.0-94.0 [facility] Comment on above: Performed By: #### C BC #### [facility] [address] [place] [address] Dr. Jessie Lomax METAMYELOCYTE # Normal [facility] Comment on above: Performed By: #### C BC #### [facility] [address] [place] [address] Dr. Jessie Lomax METAMYELOCYTE % Normal [facility] Comment on above: Performed By: #### C BC #### [facility] [address] [place] [address] Dr. Jessie Lomax MONOM# 0.24 103/ul Critically low 0.30-0.80 [facility] Comment on above: Performed By: #### C BC #### [facility] [address] [place] [address] Dr. Jessie Lomax MONOM% 2.0 % Normal 1.7-12.0 [facility] Comment on above: Performed By: #### C BC #### [facility] [address] [place] [address] Dr. Jessie Lomax MPV 9.6 fL Normal 9.5-13.5 [facility] Comment on above: Performed By: #### C BC #### [facility] [address] [place] [address] Dr. Jessie Lomax MYELOCYTE # Normal [facility] Comment on above: Performed By: #### C BC #### [facility] [address] [place] [address] Dr. Jessie Lomax MYELOCYTE % Normal [facility] Comment on above: Performed By: #### C BC #### [facility] [address] [place] [address] Dr. Jessie Lomax NRBC Normal [facility] Comment on above: Performed By: #### C BC #### [facility] [address] [place] [address] Dr. Jessie Lomax PLT 300 103/ul Normal 150-450 [facility] Comment on above: Performed By: #### C BC #### [facility] [address] [place], [place] [address] Dr. Jessie Lomax RBC 4.88 106/ul Normal 4.70-6.10 [facility] Comment on above: Performed By: #### C BC #### [facility] [id number] Jessie Lomax RDW 13.5 % Normal 11.0-15.0 [facility] Comment on above: Performed By: #### C BC #### [facility] [address] [address] [address] Jessie Lomax SEG # 10.95 103/ul Critically high 1.40-6.50 [facility] Comment on above: Performed By: #### C BC #### [facility] [address] [place] [address] Dr. Jessie Lomax SEG % 92.0 % Critically high 43.0-75.0 [facility] Comment on above: Performed By: #### C BC #### [facility] [address] [address] [address] Jessie Lomax WBC 11.9 103/ul Critically high 4.0-11.0 [facility] Comment on above: Performed By: #### C BC #### [facility] [address] [address] [address] Jessie Lomax POINT OF CARE GLUCOSEon 06-17 Glucose [Mass/Vol] 428 mg/dL Critically high 74-106 [facility] Comment on above: Performed By: #### A CETON #### [facility] [address] [address] [address] Jessie Lomax Glucose [Mass/Vol] 337 mg/dL Critically high 74-106 [facility] Comment on above: Performed By: #### B LDCX1 #### [facility] [address] [address] [address] Jessie Lomax Glucose [Mass/Vol] 233 mg/dL Critically high 74-106 [facility] Comment on above: Performed By: #### B [id number] #### [facility] [address] [place] [address] Dr. Jessie Lomax PROF 14(COMP METB)on 022 Albumin [Mass/Vol] 3.7 g/dL Normal 3.4-5.0 [facility] Comment on above: Performed By: #### C MP #### [facility] [address] [place] [address] Dr. Jessie Lomax Albumin/Globulin [Mass ratio] 1.1 {ratio} Normal [facility] Comment on above: Performed By: #### C MP #### [facility] [address] [place] [address] Dr. Jessie Lomax ALP [Catalytic activity/Vol] 86 U/L Normal 46-116 [facility] Comment on above: Performed By: #### C MP #### [facility] [address] [place] [address] Dr. Jessie Lomax ALT [Catalytic activity/Vol] 20 U/L Normal 16-63 [facility] Comment on above: Performed By: #### C MP #### [facility] [address] [place] [address] Dr. Jessie Lomax Anion gap [Moles/Vol] 13.8 mmol/L Normal [facility] Comment on above: Performed By: #### C MP #### [facility] [address] [place] [address] Dr. Jessie Lomax AST [Catalytic activity/Vol] 10 U/L Critically low 15-37 [facility] Comment on above: Performed By: #### C MP #### [facility] [address] [place] [address] Dr. Jessie Lomax Bilirubin [Mass/Vol] 0.3 mg/dL Normal 0.2-1.0 [facility] Comment on above: Performed By: #### C MP #### [facility] [address] [place] [address] Dr. Jessie Lomax Calcium [Mass/Vol] 9.3 mg/dL Normal 8.5-10.1 [facility] Comment on above: Performed By: #### C MP #### [facility] [address] [place] [address] Dr. Jessie Lomax Chloride [Moles/Vol] 101 mmol/L Normal 98-107 [facility] Comment on above: Performed By: #### C MP #### [facility] [address] [place] [address] Dr. Jessie Lomax CO2 [Moles/Vol] 27.0 mmol/L Normal 21.0-32.0 [facility] Comment on above: Performed By: #### C MP #### [facility] [address] [place] [address] Dr. Jessie Lomax Creatinine [Mass/Vol] 1.15 mg/dL Normal 0.70-1.30 [facility] Comment on above: Performed By: #### C MP #### [facility] [address] [place] [address] Dr. Jessie Lomax EGFR-AF [place]IZ[place] >60 Normal >=60 [facility] Comment on above: Performed By: #### C MP #### [facility] [address] [place] [address] Dr. Jessie Lomax EGFR-NON AF [place]IZ[place] >60 Normal >=60 [facility] Comment on above: Performed By: #### C MP #### [facility] [address] [place] [address] Dr. Jessie Lomax Globulin (S) [Mass/Vol] 3.5 g/dL Normal [facility] Comment on above: Performed By: #### C MP #### [facility] [address] [place] [address] Dr. Jessie Lomax Glucose [Mass/Vol] 284 mg/dL Critically high 74-106 [facility] Comment on above: Performed By: #### C MP #### [facility] [address] [place] [address] Dr. Jessie Lomax Potassium [Moles/Vol] 4.8 mmol/L Normal 3.5-5.1 [facility] Comment on above: Performed By: #### C MP #### [facility] [address] [place] [address] Dr. Jessie Lomax Protein [Mass/Vol] 7.2 g/dL Normal 6.4-8.2 [facility] Comment on above: Performed By: #### C MP #### [facility] [address] [place] [address] Dr. Jessie Lomax Sodium [Moles/Vol] 137 mmol/L Normal 136-145 [facility] Comment on above: Performed By: #### C MP #### [facility] [address] [place] [address] Dr. Jessie Lomax Urea nitrogen [Mass/Vol] 22.0 mg/dL Critically high 7.0-18.0 [facility] Comment on above: Performed By: #### C MP #### [facility] [address] [place] [address] Dr. Jessie Lomax Urea nitrogen/Creatinine [Mass ratio] 19.1 mg/mg Normal [facility] Comment on above: Performed By: #### C MP #### [facility] [address] [place] [address] Dr. Jessie Lomax ACETONE SERUMon 06-30-2022 ACETONE Negative Normal NEGATIVE [facility] Comment on above: Performed By: #### A CETON #### [facility] [address] [place] [address] Dr. Jessie Lomax BNPon 06-30-2022 Natriuretic peptide B (Bld) [Mass/Vol] 45.0 pg/mL Normal <=900.0 [facility] Comment on above: Performed By: #### T TYLER #### [facility] [address] [place] [address] Dr. Jessie Lomax CBC AUTO DIFFon 06-30-2022 BASO # 0.1 103/ul Normal 0.0-0.1 [facility] Comment on above: Performed By: #### C MP #### [facility] [address] [place] [address] Dr. Jessie Lomax Basophils/100 WBC (Bld) 0.9 % Normal 0.2-2.0 [facility] Comment on above: Performed By: #### C MP #### [facility] [address] [place] [address] Dr. Jessie Lomax EO # 0.1 103/ul Normal 0.0-0.7 [facility] Comment on above: Performed By: #### C MP #### [facility] [address] [address] [address] Jessie Lomax Eosinophils/100 WBC (Bld) 0.9 % Normal 0.9-7.0 [facility] Comment on above: Performed By: #### C MP #### [facility] [address] [address] [address] Jessie Lomax Erythrocyte distribution width (RBC) [Ratio] 13.4 % Normal 11.0-15.0 [facility] Comment on above: Performed By: #### C MP #### [facility] [address] [place] [address] Dr. Jessie Lomax Hematocrit (Bld) [Volume fraction] 47.0 % Normal 42.0-54.0 [facility] Comment on above: Performed By: #### C MP #### [facility] [address] [place] [address] Dr. Jessie Lomax Hemoglobin (Bld) [Mass/Vol] 16.0 g/dL Normal 14.0-18.0 [facility] Comment on above: Performed By: #### C MP #### [facility] [address] [place] [address] Dr. Jessie Lomax IG # 0.05 10e3/ul Critically high 0.00-0.03 [facility] Comment on above: Performed By: #### C MP #### [facility] [address] [place] [address] Dr. Jessie Lomax IG % 0.5 % Normal 0.0-0.5 [facility] Comment on above: Performed By: #### C MP #### [facility] [address] [place] [address] Dr. Jessie Lomax LYMPH # 2.0 103/ul Normal 1.2-3.8 [facility] Comment on above: Performed By: #### C MP #### [facility] [address] [place] [address] Dr. Jessie Lomax Lymphocytes/100 WBC (Bld) 20.1 % Critically low 20.5-60.0 [facility] Comment on above: Performed By: #### C MP #### [facility] [address] [place] [address] Dr. Jessie Lomax MANUAL DIFF REQ NO Normal [facility] Comment on above: Performed By: #### C MP #### [facility] [address] [place] [address] Dr. Jessie Lomax MCH (RBC) [Entitic mass] 31.5 pg Normal 25.9-34.0 [facility] Comment on above: Performed By: #### C MP #### [facility] [address] [place] [address] Dr. Jessie Lomax MCHC (RBC) [Mass/Vol] 34.0 g/dL Normal 29.9-35.2 [facility] Comment on above: Performed By: #### C MP #### [facility] [address] [place] [address] Dr. Jessie Lomax MCV (RBC) [Entitic vol] 92.5 fL Normal 80.0-94.0 [facility] Comment on above: Performed By: #### C MP #### [facility] [address] [place] [address] Dr. Jessie Lomax MONO # 0.7 103/ul Normal 0.3-0.8 [facility] Comment on above: Performed By: #### C MP #### [facility] [address] [place] [address] Dr. Jessie Lomax Monocytes/100 WBC (Bld) 6.8 % Normal 1.7-12.0 [facility] Comment on above: Performed By: #### C MP #### [facility] [address] [place] [address] Dr. Jessie Lomax NEUT # 6.9 103/ul Critically high 1.4-6.5 [facility] Comment on above: Performed By: #### C MP #### [facility] [address] [place] [address] Dr. Jessie Lomax Neutrophils/100 WBC (Bld) 70.8 % Normal 43.0-75.0 [facility] Comment on above: Performed By: #### C MP #### [facility] [address] [place] [address] Dr. Jessie Lomax Platelet mean volume (Bld) [Entitic vol] 9.5 fL Normal 9.5-13.5 [facility] Comment on above: Performed By: #### C MP #### [facility] [address] [place] [address] Dr. Jessie Lomax PLT 308 103/ul Normal 150-450 [facility] Comment on above: Performed By: #### C MP #### [facility] [address] [place] [address] Dr. Jessie Lomax RBC 5.08 106/ul Normal 4.70-6.10 [facility] Comment on above: Performed By: #### C MP #### [facility] [address] [place] [address] Dr. Jessie Lomax WBC 9.7 103/ul Normal 4.0-11.0 [facility] Comment on above: Performed By: #### C MP #### [facility] [address] [place] [address] Dr. Jessie Lomax CULTURE BLOODon 06-30-2022 Microscopic examination of blood, culture Culture Observations: NO GROWTH AT 5 DAYS. Normal [facility] Comment on above: Performed By: #### B LDCX2 #### [facility] [address] [place] [address] Dr. Jessie Lomax Microscopic examination of blood, culture Culture Observations: NO GROWTH AT 5 DAYS. Normal [facility] Comment on above: Performed By: #### B [id number] #### [facility] [address] [place] [address] Dr. Jessie Lomax Covid-19 PCR ([facility])on 06-17 SARS-CoV-2 (COVID-19) RNA YOLANDA+probe Ql (Unsp spec) Not detected Normal NOT DETECTED [facility] Comment on above: Result Comment: When [...] for this test is supported by the [employer] and [employer]'s declaration that [...] used). Performed By: #### B LDCX1 #### [facility] [address] [place] [address] Dr. Jessie Lomax D-DIMERon 06-30-2022 D-DIMER 0.26 mg/L FEU Normal <=0.59 [facility] Comment on above: Performed By: #### C BC #### [facility] [address] [place] [address] Dr. Jessie Lomax D-DIMER COMMENTS SEE BELOW Normal [facility] Comment on above: Result Comment: Incr eases [...] hospitalization. Performed By: #### C BC #### [facility] [address] [place] [address] Dr. Jessie Lomax LACTATE/LACTIC ACIDon 2021 Lactate [Moles/Vol] 1.7 mmol/L Normal 0.4-1.9 [facility] Comment on above: Performed By: #### B [id number] #### [facility] [address] [place] [address] Dr. Jessie Lomax PH VENOUS BLOODon 06-30-2022 PCO2 VENOUS 54.1 mmHg Critically high 40.0-52.0 [facility] Comment on above: Performed By: #### B [id number] #### [facility] [address] [address] [address] Jessie Lomax pH VENOUS 7.323 Critically low 7.330-7.430 [facility] Comment on above: Performed By: #### B [id number] #### [facility] [address] [address] [address] Jessie Lomax PROF 14(COMP METB)on 022 Albumin [Mass/Vol] 3.9 g/dL Normal 3.4-5.0 [facility] Comment on above: Performed By: #### T TYLER #### [facility] [address] [place] [address] Dr. Jessie Lomax Albumin/Globulin [Mass ratio] 1.1 {ratio} Normal [facility] Comment on above: Performed By: #### T TYLER #### [facility] [address] [address] [address] Jessie Lomax ALP [Catalytic activity/Vol] 96 U/L Normal 46-116 [facility] Comment on above: Performed By: #### T TYLER #### [facility] [address] [address] [address] Jessie Lomax ALT [Catalytic activity/Vol] 19 U/L Normal 16-63 [facility] Comment on above: Performed By: #### T TYLER #### [facility] [address] [address] [address] Jessie Lomax Anion gap [Moles/Vol] 4.5 mmol/L Normal [facility] Comment on above: Performed By: #### T TYLER #### [facility] [address] [address] [address] Jessie Lomax AST [Catalytic activity/Vol] 13 U/L Critically low 15-37 [facility] Comment on above: Performed By: #### T TYLER #### [facility] [address] [address] [address] Jessie Lomax Bilirubin [Mass/Vol] 0.4 mg/dL Normal 0.2-1.0 [facility] Comment on above: Performed By: #### T TYLER #### [facility] [address] [place] [address] Dr. Jessie Lomax Calcium [Mass/Vol] 9.2 mg/dL Normal 8.5-10.1 [facility] Comment on above: Performed By: #### T TYLER #### [facility] [address] [place] [address] Dr. Jessie Lomax Chloride [Moles/Vol] 103 mmol/L Normal 98-107 [facility] Comment on above: Performed By: #### T TYLER #### [facility] [address] [place] [address] Dr. Jessie Lomax CO2 [Moles/Vol] 26.3 mmol/L Normal 21.0-32.0 [facility] Comment on above: Performed By: #### T TYLER #### [facility] [facility] [address] [place] [address] Dr. Jessie Lomax Creatinine [Mass/Vol] 1.06 mg/dL Normal 0.70-1.30 [facility] Comment on above: Performed By: #### T TYLER #### [facility] [address] [place] [address] Dr. Jessie Lomax EGFR-AF CITIZEN [place] >60 Normal >=60 [facility] Comment on above: Performed By: #### T TYLER #### [facility] [address] [place] [address] Dr. Jessie Lomax EGFR-NON AF CITIZEN OF [place] >60 Normal >=60 [facility] Comment on above: Performed By: #### T TYLER #### [facility] [address] [place] [address] Dr. Jessie Lomax Globulin (S) [Mass/Vol] 3.5 g/dL Normal [facility] Comment on above: Performed By: #### T TYLER #### [facility] [address] [place] [address] Dr. Jessie Lomax Glucose [Mass/Vol] 221 mg/dL Critically high 74-106 [facility] Comment on above: Performed By: #### T TYLER #### [facility] [address] [address] [address] Jessie Lomax Potassium [Moles/Vol] 4.6 mmol/L Normal 3.5-5.1 [facility] Comment on above: Performed By: #### T TYLER #### [facility] [address] [address] [address] Jessie Lomax Protein [Mass/Vol] 7.4 g/dL Normal 6.4-8.2 [facility] Comment on above: Performed By: #### T TYLER #### [facility] [address] [place] [address] Dr. Jessie Lomax Sodium [Moles/Vol] 138 mmol/L Normal 136-145 [facility] Comment on above: Performed By: #### T TYLER #### [facility] [address] [address] [address] Jessie Lomax Urea nitrogen [Mass/Vol] 23.0 mg/dL Critically high 7.0-18.0 [facility] Comment on above: Performed By: #### T TYLER #### [facility] [address] [place] [address] Dr. Jessie Lomax Urea nitrogen/Creatinine [Mass ratio] 20.2 mg/mg Normal [facility] Comment on above: Performed By: #### T TYLER #### [facility] [address] [place] [address] Dr. Jessie Lomax PROTIMEon 06-30-2022 INR Coag (PPP) [Relative time] 0.93 {INR} Normal [facility] Comment on above: Performed By: #### A MARKIEON #### [facility] [address] [place] [address] Dr. Jessie Lomax INR GUIDELINES SEE BELOW Normal [facility] Comment on above: Result Comment: VANESSA RED INR: 2.0 - 3.0 CONDITIONS NOT LISTED BELOW 2.5 - 3.5 FOR PROSTHETIC HEART VALVE REPLACEMENT 2.5 - 3.5 RECURRENT THROMBOSIS Performed By: #### A CETON #### [facility] [address] [place] [address] Dr. Jessie Lomax PT Coag (PPP) [Time] 10.1 s Normal 9.0-11.6 [facility] Comment on above: Performed By: #### A CETON #### [facility] [address] [place] [address] Dr. Jessie Lomax PTTon 06-30-2022 aPTT Coag (Bld) [Time] 25.1 s Normal 22.3-36.2 [facility] Comment on above: Performed By: #### B [id number] #### [facility] [address] [place] [address] Dr. Jessie Lomax TROPONIN, HIGH SENSITIVITYon 06-30-2022 HSTROP 11.4 pg/mL Normal 4.0-76.1 [facility] Comment on above: Result Comment: CUT- OFF POINTS HAVE BEEN ESTABLISHED BASED ON THE FOURTH UNIVERSAL DEFINITIONS OF MYOCARDIAL INFARCTION. THE UPPER REFERENCE LIMIT (URL) OF TROPONIN, DEFINED THE 99TH PERCENTILE OF cTnI DISTRIBUTION IN A REFERENCE POPULATION, HAS BEEN CONFIRMED THE DECISION THRESHOLD FOR [place] DIAGNOSIS. Performed By: #### T TYLER #### [facility] [address] [place] [address] Dr. Jessie Lomax XR CHEST 1 Von [...] SOLA SHELL Date: 2022-06-30 21:00 Normal [facility] BNPon 05-02-2022 Natriuretic peptide B (Bld) [Mass/Vol] 90.0 pg/mL Normal <=900.0 [facility] Comment on above: Performed By: #### B [id number] #### [facility] [address] [place] [address] Dr. Jessie Lomax CARDIAC JUSTINE ADMITon 022 CK [Catalytic activity/Vol] 84 U/L Normal 39-308 [facility] Comment on above: Performed By: #### B [id number] #### [facility] [address] [place] [address] Dr. Jessie Lomax CK.MB [Mass/Vol] 3.74 ng/mL Critically high <=3.60 [facility] Comment on above: Performed By: #### B [id number] #### [facility] [address] [place] [address] Dr. Jessie Lomax HSTROP 14.1 pg/mL Normal 4.0-76.1 [facility] Comment on above: Result Comment: CUT- OFF POINTS HAVE BEEN ESTABLISHED BASED ON THE FOURTH UNIVERSAL DEFINITIONS OF MYOCARDIAL INFARCTION. THE UPPER REFERENCE LIMIT (URL) OF TROPONIN, DEFINED THE 99TH PERCENTILE OF cTnI DISTRIBUTION IN A REFERENCE POPULATION, HAS BEEN CONFIRMED THE DECISION THRESHOLD FOR [place] DIAGNOSIS. Performed By: #### B [id number] #### [facility] [address] [place] [address] Dr. Jessie Lomax HERLINDA 55 ng/mL Normal 16-96 [facility] Comment on above: Performed By: #### B [id number] #### [facility] [address] [place] [address] Dr. Jessie Lomax CBC AUTO DIFFon 05-02-2022 BASO # 0.1 103/ul Normal 0.0-0.1 [facility] Comment on above: Performed By: #### C BC #### [facility] [address] [place] [address] Dr. Jessie Lomax Basophils/100 WBC (Bld) 0.5 % Normal 0.2-2.0 [facility] Comment on above: Performed By: #### C BC #### [facility] [address] [place] [address] Dr. Jessie Lomax EO # 0.0 103/ul Normal 0.0-0.7 [facility] Comment on above: Performed By: #### C BC #### [facility] [address] [place] [address] Dr. Jessie Lomax Eosinophils/100 WBC (Bld) 0.3 % Critically low 0.9-7.0 [facility] Comment on above: Performed By: #### C BC #### [facility] [address] [place] [address] Dr. Jessie Lomax Erythrocyte distribution width (RBC) [Ratio] 13.6 % Normal 11.0-15.0 [facility] Comment on above: Performed By: #### C BC #### [facility] [address] [place] [address] Dr. Jessie Lomax Hematocrit (Bld) [Volume fraction] 46.1 % Normal 42.0-54.0 [facility] Comment on above: Performed By: #### C BC #### [facility] [address] [place] [address] Dr. Jessie Lomax Hemoglobin (Bld) [Mass/Vol] 15.6 g/dL Normal 14.0-18.0 [facility] Comment on above: Performed By: #### C BC #### [facility] [address] [place] [address] Dr. Jessie Lomax IG # 0.07 10e3/ul Critically high 0.00-0.03 [facility] Comment on above: Performed By: #### C BC #### [facility] [address] [place] [address] Dr. Jessie Lomax IG % 0.6 % Critically high 0.0-0.5 [facility] Comment on above: Performed By: #### C BC #### [facility] [address] [place] [address] Dr. Jessie Lomax LYMPH # 2.0 103/ul Normal 1.2-3.8 [facility] Comment on above: Performed By: #### C BC #### [facility] [address] [place] [address] Dr. Jessie Lomax Lymphocytes/100 WBC (Bld) 16.0 % Critically low 20.5-60.0 [facility] Comment on above: Performed By: #### C BC #### [facility] [address] [place] [address] Dr. Jessie Lomax MANUAL DIFF REQ NO Normal [facility] Comment on above: Performed By: #### C BC #### [facility] [address] [place] [address] Dr. Jessie Lomax MCH (RBC) [Entitic mass] 31.7 pg Normal 25.9-34.0 [facility] Comment on above: Performed By: #### C BC #### [facility] [address] [place] [address] Dr. Jessie Lomax MCHC (RBC) [Mass/Vol] 33.8 g/dL Normal 29.9-35.2 [facility] Comment on above: Performed By: #### C BC #### [facility] [address] [place] [address] Dr. Jessie Lomax MCV (RBC) [Entitic vol] 93.7 fL Normal 80.0-94.0 [facility] Comment on above: Performed By: #### C BC #### [facility] [address] [place] [address] Dr. Jessie Lomax MONO # 0.8 103/ul Normal 0.3-0.8 [facility] Comment on above: Performed By: #### C BC #### [facility] [address] [place] [address] Dr. Jessie Lomax Monocytes/100 WBC (Bld) 6.2 % Normal 1.7-12.0 [facility] Comment on above: Performed By: #### C BC #### [facility] [address] [place] [address] Dr. Jessie Lomax NEUT # 9.5 103/ul Critically high 1.4-6.5 [facility] Comment on above: Performed By: #### C BC #### [facility] [address] [place] [address] Dr. Jessie Lomax Neutrophils/100 WBC (Bld) 76.4 % Critically high 43.0-75.0 [facility] Comment on above: Performed By: #### C BC #### [facility] [address] [place] [address] Dr. Jessie Lomax Platelet mean volume (Bld) [Entitic vol] 9.6 fL Normal 9.5-13.5 [facility] Comment on above: Performed By: #### C BC #### [facility] [address] [place] [address] Dr. Jessie Lomax PLT 338 103/ul Normal 150-450 [facility] Comment on above: Performed By: #### C BC #### [facility] [address] [place] [address] Dr. Jessie Lomax RBC 4.92 106/ul Normal 4.70-6.10 [facility] Comment on above: Performed By: #### C BC #### [facility] [address] [place] [address] Dr. Jessie Lomax WBC 12.4 103/ul Critically high 4.0-11.0 [facility] Comment on above: Performed By: #### C BC #### [facility] [address] [place] [address] Dr. Jessie Lomax Covid-19 PCR ([facility])on 04-17 SARS-CoV-2 (COVID-19) RNA YOLANDA+probe Ql (Unsp spec) Not detected Normal NOT DETECTED [facility] Comment on above: Result Comment: When [...] for this test is supported by the [employer] and Human Service's declaration that [...] used). Performed By: #### C MP #### [facility] [address] [place] [address] Dr. Jessie Lomax PROF 14(COMP METB)on 05-02- 022 Albumin [Mass/Vol] 3.5 g/dL Normal 3.4-5.0 [facility] Comment on above: Performed By: #### B [id number] #### [facility] [address] [address] [address] Jessie Lomax Albumin/Globulin [Mass ratio] 1.0 {ratio} Normal [facility] Comment on above: Performed By: #### B [id number] #### [facility] [address] [address] [address] Jessie Lomax ALP [Catalytic activity/Vol] 104 U/L Normal 46-116 [facility] Comment on above: Performed By: #### B [id number] #### [facility] [address] [place] [address] Dr. Jessie Lomax ALT [Catalytic activity/Vol] 21 U/L Normal 16-63 [facility] Comment on above: Performed By: #### B [id number] #### [facility] [address] [address] [address] Jessie Lomax Anion gap [Moles/Vol] 11.7 mmol/L Normal [facility] Comment on above: Performed By: #### B [id number] #### [facility] [address] [place] [address] Dr. Jessie Lomax AST [Catalytic activity/Vol] U/L Critically low 15-37 [facility] Comment on above: Performed By: #### B [id number] #### [facility] [address] [address] [address] Jessie Lomax Bilirubin [Mass/Vol] 0.2 mg/dL Normal 0.2-1.0 [facility] Comment on above: Performed By: #### B [id number] #### [facility] [address] [address] [address] Jessie Lomax Calcium [Mass/Vol] 8.9 mg/dL Normal 8.5-10.1 [facility] Comment on above: Performed By: #### B [id number] #### [facility] [address] [address] [address] Jessie Lomax Chloride [Moles/Vol] 99 mmol/L Normal 98-107 [facility] Comment on above: Performed By: #### B [id number] #### [facility] [address] [address] [address] Jessie Lomax CO2 [Moles/Vol] 30.4 mmol/L Normal 21.0-32.0 [facility] Comment on above: Performed By: #### B [id number] #### [facility] [address] [address] [address] Jessie Lomax Creatinine [Mass/Vol] 1.29 mg/dL Normal 0.70-1.30 [facility] Comment on above: Performed By: #### B [id number] #### [facility] [address] [place] [address] Dr. Jessie Lomax EGFR-AF [place]IZ[place] >60 Normal >=60 [facility] Comment on above: Performed By: #### B [id number] #### [facility] [address] [address] [address] Jessie Lomax EGFR-NON AF [place]IZ[place] 56 mL/min/1.73m2 Critically low >=60 [facility] Comment on above: Performed By: #### B [id number] #### [facility] [address] [place] [address] Dr. Jessie Lomax Globulin (S) [Mass/Vol] 3.4 g/dL Normal [facility] Comment on above: Performed By: #### B [id number] #### [facility] [address] [address] [address] Jessie Lomax Glucose [Mass/Vol] 310 mg/dL Critically high 74-106 [facility] Comment on above: Performed By: #### B [id number] #### [facility] [address] [address] [address] Jessie Lomax Potassium [Moles/Vol] 4.1 mmol/L Normal 3.5-5.1 [facility] Comment on above: Performed By: #### B LDCX1 #### [facility] [address] [address] [address] Jessie Lomax Protein [Mass/Vol] 6.9 g/dL Normal 6.4-8.2 [facility] [place] [facility] Comment on above: Performed By: #### B [id number] #### [facility] [address] [place] [address] Dr. Jessie Lomax Sodium [Moles/Vol] 137 mmol/L Normal 136-145 [facility] [place] [facility] Comment on above: Performed By: #### B [id number] #### [facility] [address] [place] [address] Dr. Jessie Lomax Urea nitrogen [Mass/Vol] 16.0 mg/dL Normal 7.0-18.0 [facility] Comment on above: Performed By: #### B [id number] #### [facility] [address] [place] [address] Dr. Jessie Lomax Urea nitrogen/Creatinine [Mass ratio] 12.4 mg/mg Normal [facility] Comment on above: Performed By: #### B [id number] #### [facility] [address] [place] [address] Dr. Jessie Lomax PROTIMEon 05-02-2022 INR Coag (PPP) [Relative time] {INR} Normal [facility] Comment on above: Performed By: #### T TYLER #### [facility] [address] [place] [address] Dr. Jessie Lomax INR GUIDELINES SEE BELOW Normal [facility] Comment on above: Result Comment: VANESSA RED INR: 2.0 - 3.0 CONDITIONS NOT LISTED BELOW 2.5 - 3.5 FOR PROSTHETIC HEART VALVE REPLACEMENT 2.5 - 3.5 RECURRENT THROMBOSIS Performed By: #### T TYLER #### [facility] [address] [place] [address] Dr. Jessie Lomax PT Coag (PPP) [Time] 9.8 s Normal 9.0-11.6 [facility] Comment on above: Performed By: #### T TYLER #### [facility] [address] [place] [address] Dr. Jessie Lomax PTTon 05-02-2022 aPTT Coag (Bld) [Time] 23.0 s Normal 22.3-36.2 [facility] Comment on above: Performed By: #### T TYLER #### [facility] [address] [place], [place] [address] Dr. Jessie Lomax XR CHEST 1 Von [...] GERARD ESPANA Date: 2022-05-02 08:55 Normal [facility] Covid-19 PCR ([facility])on 04-17 SARS-CoV-2 (COVID-19) RNA YOLANDA+probe Ql (Unsp spec) Not detected Normal NOT DETECTED [facility] Comment on above: Result Comment: This test is not yet approved or cleared by the [place] FDA. When there are no FDA-approved or cleared tests available, and other criteria are met, FDA can make tests available under an emergency access mechanism called an Emergency Use Authorization (EUA). The EUA for this test is supported by the [employer] of Health and Human Service's (HHS's) declaration [...] SARS-CoV-2. Performed By: #### A CETON #### [facility] [address] [place], [place] [address] Dr. Jessie Lomax CBC AUTO DIFFon 03-19-2022 BASO # 0.0 103/ul Normal 0.0-0.1 [facility] Comment on above: Performed By: #### C BC #### [facility] [address] [address] [address] Jessie Lomax Basophils/100 WBC (Bld) 0.4 % Normal 0.2-2.0 [facility] Comment on above: Performed By: #### C BC #### [facility] [address] [address] [address] Jessie Lomax EO # 0.0 103/ul Normal 0.0-0.7 [facility] Comment on above: Performed By: #### C BC #### [facility] [address] [address] [address] Jessie Lomax Eosinophils/100 WBC (Bld) 0.1 % Critically low 0.9-7.0 [facility] Comment on above: Performed By: #### C BC #### [facility] [address] [place] [address] Dr. Jessie Lomax Erythrocyte distribution width (RBC) [Ratio] 13.6 % Normal 11.0-15.0 [facility] Comment on above: Performed By: #### C BC #### [facility] [address] [place] [address] Dr. Jessie Lomax Hematocrit (Bld) [Volume fraction] 47.4 % Normal 42.0-54.0 [facility] Comment on above: Performed By: #### C BC #### [facility] [address] [place] [address] Dr. Jessie Lomax Hemoglobin (Bld) [Mass/Vol] 16.0 g/dL Normal 14.0-18.0 [facility] Comment on above: Performed By: #### C BC #### [facility] [address] [place] [address] Dr. Jessie Lomax IG # 0.03 10e3/ul Normal 0.00-0.03 [facility] Comment on above: Performed By: #### C BC #### [facility] [address] [place] [address] Dr. Jessie Lomax IG % 0.3 % Normal 0.0-0.5 [facility] Comment on above: Performed By: #### C BC #### [facility] [address] [address] [address] Jessie Lomax LYMPH # 0.5 103/ul Critically low 1.2-3.8 [facility] Comment on above: Performed By: #### C BC #### [facility] [address] [place] [address] Dr. Jessie Lomax Lymphocytes/100 WBC (Bld) 5.4 % Critically low 20.5-60.0 [facility] Comment on above: Performed By: #### C BC #### [facility] [address] [place] [address] Dr. Jessie Lomax MANUAL DIFF REQ NO Normal [facility] Comment on above: Performed By: #### C BC #### [facility] [address] [place] [address] Dr. Jessie Lomax MCH (RBC) [Entitic mass] 31.7 pg Normal 25.9-34.0 [facility] Comment on above: Performed By: #### C BC #### [facility] [address] [place] [address] Dr. Jessie Lomax MCHC (RBC) [Mass/Vol] 33.8 g/dL Normal 29.9-35.2 [facility] Comment on above: Performed By: #### C BC #### [facility] [address] [place] [address] Dr. Jessie Lomax MCV (RBC) [Entitic vol] 93.9 fL Normal 80.0-94.0 [facility] Comment on above: Performed By: #### C BC #### [facility] [address] [place] [address] Dr. Jessie Lomax MONO # 0.2 103/ul Critically low 0.3-0.8 [facility] Comment on above: Performed By: #### C BC #### [facility] [address] [place] [address] Dr. Jessie Lomax Monocytes/100 WBC (Bld) 2.4 % Normal 1.7-12.0 [facility] Comment on above: Performed By: #### C BC #### [facility] [address] [place] [address] Dr. Jessie Lomax NEUT # 9.1 103/ul Critically high 1.4-6.5 [facility] Comment on above: Performed By: #### C BC #### [facility] [address] [place] [address] Dr. Jessie Lomax Neutrophils/100 WBC (Bld) 91.4 % Critically high 43.0-75.0 [facility] Comment on above: Performed By: #### C BC #### [facility] [address] [place] [address] Dr. Jessie Lomax Platelet mean volume (Bld) [Entitic vol] 9.5 fL Normal 9.5-13.5 [facility] Comment on above: Performed By: #### C BC #### [facility] [address] [place] [address] Dr. Jessie Lomax PLT 303 103/ul Normal 150-450 [facility] Comment on above: Performed By: #### C BC #### [facility] [address] [place] [address] Dr. Jessie Lomax RBC 5.05 106/ul Normal 4.70-6.10 [facility] Comment on above: Performed By: #### C BC #### [facility] [address] [place] [address] Dr. Jessie Lomax WBC 10.0 103/ul Normal 4.0-11.0 [facility] Comment on above: Performed By: #### C BC #### [facility] [address] [place] [address] Dr. Jessie Lomax Covid-19 PCR ([facility])on SARS-CoV-2 (COVID-19) RNA YOLANDA+probe Ql (Unsp spec) Not detected Normal NOT DETECTED [facility] Comment on above: Result Comment: When [...] for this test is supported by the [employer] of Health and Human Service's declaration that [...] used). Performed By: #### B LDCX1 #### [facility] [address] [place] [address] Dr. Jessie Lomax PROF 14(COMP METB)on 022 Albumin [Mass/Vol] 3.9 g/dL Normal 3.4-5.0 [facility] Comment on above: Performed By: #### C BC #### [facility] [address] [place] [address] Dr. Jessie Lomax Albumin/Globulin [Mass ratio] 1.1 {ratio} Normal [facility] Comment on above: Performed By: #### C BC #### [facility] [address] [place] [address] Dr. Jessie Lomax ALP [Catalytic activity/Vol] 81 U/L Normal 46-116 [facility] Comment on above: Performed By: #### C BC #### [facility] [address] [place] [address] Dr. Jessie Lomax ALT [Catalytic activity/Vol] 26 U/L Normal 16-63 [facility] Comment on above: Performed By: #### C BC #### [facility] [address] [place] [address] Dr. Jessie Lomax Anion gap [Moles/Vol] 14.5 mmol/L Normal [facility] Comment on above: Performed By: #### C BC #### [facility] [address] [place] [address] Dr. Jessie Lomax AST [Catalytic activity/Vol] 7 U/L Critically low 15-37 [facility] Comment on above: Performed By: #### C BC #### [facility] [address] [address] [address] Jessie Lomax Bilirubin [Mass/Vol] 0.3 mg/dL Normal 0.2-1.0 [facility] Comment on above: Performed By: #### C BC #### [facility] [address] [address] [address] Jessie Lomax Calcium [Mass/Vol] 9.2 mg/dL Normal 8.5-10.1 [facility] Comment on above: Performed By: #### C BC #### [facility] [address] [address] [address] Jessie Lomax Chloride [Moles/Vol] 101 mmol/L Normal 98-107 [facility] Comment on above: Performed By: #### C BC #### [facility] [address] [address] [address] Jessie Lomax CO2 [Moles/Vol] 26.1 mmol/L Normal 21.0-32.0 [facility] Comment on above: Performed By: #### C BC #### [facility] [address] [address] [address] Jessie Lomax Creatinine [Mass/Vol] 1.50 mg/dL Critically high 0.70-1.30 [facility] Comment on above: Performed By: #### C BC #### [facility] [address] [address] [address] Jessie Lomax EGFR-AF CITIZEN [place] 57 mL/min/1.73m2 Critically low >=60 [facility] Comment on above: Performed By: #### C BC #### [facility] [address] [address] [address] Jessie Lomax EGFR-NON AF CITIZEN OF [place] 47 mL/min/1.73m2 Critically low >=60 [facility] Comment on above: Performed By: #### C BC #### [facility] [address] [address] [address] Jessie Lomax Globulin (S) [Mass/Vol] 3.4 g/dL Normal [facility] Comment on above: Performed By: #### C BC #### [facility] [address] [address] [address] Jessie Lomax Glucose [Mass/Vol] 264 mg/dL Critically high 74-106 [facility] Comment on above: Performed By: #### C BC #### [facility] [id number] Jessie Lomax Potassium [Moles/Vol] 4.6 mmol/L Normal 3.5-5.1 [facility] Comment on above: Performed By: #### C BC #### [facility] [address] [address] [address] Jessie Lomax Protein [Mass/Vol] 7.3 g/dL Normal 6.4-8.2 [facility] Comment on above: Performed By: #### C BC #### [facility] [address] [address] [address] Jessie Lomax Sodium [Moles/Vol] 137 mmol/L Normal 136-145 [facility] Comment on above: Performed By: #### C BC #### [facility] [address] [address] [address] Jessie Lomax Urea nitrogen [Mass/Vol] 20.0 mg/dL Critically high 7.0-18.0 [facility] Comment on above: Performed By: #### C BC #### [facility] [address] [address] [address] Jessie Lomax Urea nitrogen/Creatinine [Mass ratio] 13.3 mg/mg Normal [facility] Comment on above: Performed By: #### C BC #### [facility] [address] [address] [address] Jessie Lomax XR CHEST 1 Von [...] GERARD WOLFF Date: 2022-03-19 00:11 Normal [facility] Cardiovascular Lab Reporton 12-29-2018 Cardiovascular Lab Report [facility] Patient Name: Ricardo [facility] MR #: [id number] Physician: Calli Devlin, Department of M.D. Medicine Service Date: 12/28/2018 Division of Birthdate: 1960 Cardiology Room #: [facility] [address] [address] Cardiovascular Laboratory Report FINAL IMPRESSIONS: 1. Nonobstructive [...] 6. Follow up with me in the [facility] in the next 2-4 weeks. 7. Follow up with Dr. Cowart as scheduled. PROCEDURES: Ultrasound-guided access to the right common femoral vein and artery, right heart catheterization, bilateral selective coronary angiography, left heart catheterization, left ventriculography, limited femoral angiogram, placement of a 6-Monegasque MynxGrip closure device. METHODS: After risks, benefits, and alternatives were explained, written informed consent was obtained. The patient was prepped and draped in usual sterile fashion over the right groin. Using 1% lidocaine solution, local infiltration anesthesia was achieved. Using a modified Seldinger technique and under ultrasound guidance access to the right common femoral vein and artery was obtained and 6-Monegasque 11 cm sheath placed in each. Limited [...] the procedure. All catheters were removed. A 6-Monegasque MynxGrip closure device was deployed per protocol [...] Devlin M.D. Date Trans: 12/29/2018 04:14 Marek/rosetta [id number] cc: Calli Devlin M.D. [address] [place] [address] BRYON COWART On license of [facility] Vital Signs Date Time Vital Sign Value Performing Clinician Facility 11-11-2023 14:15-0400 Body height 175.26 cm [facility] 11-11-2023 14:15-0400 Body mass index (BMI) [Ratio] 37 kg/m2 [facility] 11-11-2023 14:15-0400 Body weight 113.85 kg [facility] 11-11-2023 14:15-0400 Diastolic blood pressure 102 mm[Hg] [facility] 11-11-2023 14:15-0400 Heart rate 96 /min [facility] 11-11-2023 14:15-0400 SaO2% (BldA) [Mass fraction] 92 % [facility] 11-11-2023 14:15-0400 Systolic blood pressure 149 mm[Hg] [facility] 09-15-2023 11:02-0500 Body height 175.26 cm [facility] 09-15-2023 11:02-0500 Body mass index (BMI) [Ratio] 38.2 kg/m2 [facility] 09-15-2023 11:02-0500 Body weight 117.59 kg [facility] 09-15-2023 11:02-0500 Diastolic blood pressure 87 mm[Hg] [facility] 09-15-2023 11:02-0500 Heart rate 113 /min [facility] 09-15-2023 11:02-0500 SaO2% (BldA) [Mass fraction] 97 % [facility] 09-15-2023 11:02-0500 Systolic blood pressure 158 mm[Hg] [facility] 06-27-2023 11:00-0500 Body height 175.26 cm Bryon Cowart Other [employer] [facility] [employer] Other 06-27-2023 11:00-0500 Body mass index (BMI) [Ratio] 37.8 kg/m2 Bryon Cowart Other [employer] Other 06-27-2023 11:00-0500 Body weight 116.12 kg Bryon Cowart Other [employer] Other 06-27-2023 11:00-0500 Diastolic blood pressure 88 mm[Hg] Bryon Cowart Other [employer] Other 06-27-2023 11:00-0500 SaO2% (BldA) [Mass fraction] 92 % Bryon Cowart Other [employer] Other 06-27-2023 11:00-0500 Systolic blood pressure 134 mm[Hg] Bryon Cowart Other [employer] Other 03-03-2023 15:00-0400 Body height 175.26 cm Bryon Cowart Other [employer] Other 03-03-2023 15:00-0400 Body mass index (BMI) [Ratio] 38.69 kg/m2 Bryon Cowart Other [employer] Other 03-03-2023 15:00-0400 Body weight 118.84 kg Bryon Cowart Other [employer] Other 03-03-2023 15:00-0400 Diastolic blood pressure 82 mm[Hg] Bryon Cowart Other [employer] Other 03-03-2023 15:00-0400 Systolic blood pressure 157 mm[Hg] Bryon Cowart Other [employer] Other 12-30-2022 14:30-0400 Body height 175.26 cm Bryon Cowart Other [employer] Other 12-30-2022 14:30-0400 Body mass index (BMI) [Ratio] 39.57 kg/m2 Bryon Cowart Other [employer] Other 12-30-2022 14:30-0400 Body weight 121.56 kg Bryon Cowart Other [employer] Other 12-30-2022 14:30-0400 Diastolic blood pressure 85 mm[Hg] Bryon Cowart Other [employer] Other 12-30-2022 14:30-0400 SaO2% (BldA) [Mass fraction] 95 % Bryon Cowart Other [employer] Other 12-30-2022 14:30-0400 Systolic blood pressure 147 mm[Hg] Bryon Cowart Other [employer] Other 09-02-2022 14:00-0500 Body height 175.26 cm Bryon Cowart Other [employer] Other 09-02-2022 14:00-0500 Body mass index (BMI) [Ratio] 38.69 kg/m2 Bryon Cowart Other [employer] Other 09-02-2022 14:00-0500 Body weight 118.84 kg Bryon Cowart Other [employer] Other 09-02-2022 14:00-0500 Diastolic blood pressure 84 mm[Hg] Bryon Cowart Other [employer] Other 09-02-2022 14:00-0500 Respiratory rate 60 /min Bryon Cowart Other [employer] Other 09-02-2022 14:00-0500 SaO2% (BldA) [Mass fraction] 91 % Bryon Cowart Other [employer] Other 09-02-2022 14:00-0500 Systolic blood pressure 142 mm[Hg] Bryon Cowart Other [employer] Other Encounters Encounter Date Encounter Type Care Provider Facility Start: 06-21-2024 ambulatory MARKETING PROFESSOR SARAH A INNA Fa cility:[facility] Start: 06-19-2024 End: 06-19-2024 ambulatory MARKETING PROFESSOR SARAH A INNA Facility:[facility] Start: 06-04-2024 End: 06-04-2024 ambulatory MARKETING PROFESSOR SARAH A INNA Facility:[facility] Start: 05-22-2024 End: 05-22-2024 ambulatory MARKETING PROFESSOR SARAH A INNA Facility:[facility] Start: 05-08-2024 End: 05-08-2024 ambulatory MARKETING PROFESSOR SARAH A INNA Facility:[facility] Start: 04-30-2024 End: 05-14-2024 ambulatory MARKETING PROFESSOR SARAH A INNA Facility:[id number] Start: 04-24-2024 End: 04-24-2024 ambulatory MARKETING PROFESSOR SARAH A INNA Facility:[facility] Start: 01-24-2024 End: 01-24-2024 Lab Drop off SARAH A INNA [facility] Start: 01-24-2024 End: 01-24-2024 ambulatory MARKETING PROFESSOR SARAH A INNA Facility:[facility] Start: 01-18-2024 End: 01-18-2024 ambulatory MARKETING PROFESSOR SARAH A INNA Facility:[facility] Start: 12-28-2023 End: 12-28-2023 ambulatory MARKETING PROFESSOR SARAH A INNA Facility:[facility] [place] [facility] Start: 12-26-2023 ambulatory MARKETING PROFESSOR SARAH INNA Faci lity:[facility] [place] Start: 11-11-2023 End: 11-11-2023 ambulatory [facility] Work Phone: Start: 11-11-2023 End: 11-11-2023 Patient encounter procedure [facility] Physician [facility] Work Phone: Start: 10-03-2023 Non-patient / Non-visit [facility] Physician [facility] Wireless Safety Professional [employer] Work Phone: Start: 09-15-2023 End: 09-15-2023 Patient encounter procedure [facility] Work Phone: Start: 08-26-2023 End: 08-26-2023 ambulatory Bryon Cowart Other [employer] Other Start: 08-26-2023 Telephone encounter Bryon Cowart [facility] Start: 08-04-2023 End: 08-04-2023 ambulatory Bryon Cowart Other [employer] Other Start: 08-04-2023 Telephone encounter Bryon Cowart [facility] Start: 08-03-2023 End: 08-03-2023 ambulatory Bryon Cowart Other [employer] Other Start: 08-03-2023 Telephone encounter Bryon Cowart [facility] Start: 07-19-2023 End: 07-19-2023 ambulatory Bryon Cowart Other [employer] Other Start: 07-19-2023 Telephone encounter Bryon Cowart [facility] Start: 07-12-2023 End: 07-12-2023 ambulatory Bryon Cowart Other [employer] Other Start: 07-12-2023 Telephone encounter Bryon Cowart [facility] Start: 07-07-2023 End: 07-07-2023 ambulatory Bryon Cowart Other [employer] Other Start: 07-07-2023 Telephone encounter Bryon Cowart [facility] Start: 07-04-2023 End: 07-04-2023 ambulatory Bryon Cowart Other [employer] Other Start: 07-04-2023 Telephone encounter Bryon Cowart [facility] Start: 06-30-2023 End: 06-30-2023 ambulatory Bryon Cowart Other [employer] Other Start: 06-30-2023 Telephone encounter Bryon Cowart [facility] Start: 06-27-2023 End: 06-27-2023 ambulatory Bryon Cowart Other [employer] Other Start: 06-27-2023 Office outpatient vi sit 25 minutes Bryon Cowart [facility] Start: 06-27-2023 Telephone encounter Bryon Cowart [facility] Start: 06-24-2023 End: 06-24-2023 ambulatory Bryon Cowart Other [employer] Other Start: 06-24-2023 Telephone encounter Bryon Cowart [facility] Start: 06-13-2023 End: 06-13-2023 ambulatory Bryon Cowart Other [employer] Other Start: 06-13-2023 Telephone encounter Bryon Cowart [facility] Start: 06-03-2023 End: 06-03-2023 ambulatory Bryon Cowart Other [employer] Other Start: 06-03-2023 Telephone encounter Bryon Cowart [facility] Start: 05-31-2023 End: 05-31-2023 ambulatory Bryon Cowart Other [employer] Other Start: 05-31-2023 Telephone encounter Bryon Cowart [facility] Start: 05-09-2023 End: 05-09-2023 ambulatory Bryon Cowart Other [employer] Other Start: 05-09-2023 Telephone encounter Bryon Cowart [facility] Start: 04-25-2023 Telephone encounter Capo Meraz RN Pulmonary Medicine Comment on above: Closing Referral Start: 04-13-2023 End: 04-13-2023 ambulatory Bryon Cowart Other [employer] Other Start: 04-13-2023 Telephone encounter Bryon Cowart [facility] Start: 03-14-2023 End: 03-14-2023 ambulatory Bryon Cowart Other [employer] Other Start: 03-14-2023 Telephone encounter Bryon Cowart [facility] Start: 03-11-2023 End: 03-11-2023 ambulatory Bryon Cowart Other [employer] Other Start: 03-11-2023 Telephone encounter Bryon Cowart [facility] Start: 03-10-2023 Telephone encounter Capo Meraz RN Pulmonary Medicine Comment on above: Follow up on Lung Tr ansplant Referral Start: 03-08-2023 End: 03-08-2023 ambulatory Bryon Cowart Other [employer] Other Start: 03-08-2023 Telephone encounter Bryon Cowart [facility] Start: 03-03-2023 End: 03-03-2023 ambulatory Bryon Cowart Other [employer] Other Start: 03-03-2023 Office outpatient vi sit 15 minutes Bryon Cowart [facility] Start: 02-10-2023 End: 02-10-2023 ambulatory Bryon Cowart Other [employer] Other Start: 02-10-2023 Telephone encounter Bryon Cowart [facility] Start: 12-30-2022 End: 12-30-2022 ambulatory Bryon Cowart Other [employer] Other Start: 12-30-2022 Office outpatient vi sit 25 minutes Bryon Cowart [facility] Start: 12-30-2022 Telephone encounter Bryon Cowart [facility] Start: 12-22-2022 End: 12-22-2022 ambulatory Bryon Cowart Other [employer] Other Start: 12-22-2022 Telephone encounter Bryon Cowart [facility] Start: 11-12-2022 End: 11-12-2022 ambulatory Bryon Cowart Other [employer] Other Start: 11-12-2022 Telephone encounter Bryon Cowart [facility] Start: 10-12-2022 End: 10-12-2022 ambulatory Rubén Pina Other [employer] Other Start: 10-12-2022 Telephone encounter Rubén Pina [facility] Start: 10-05-2022 End: 10-05-2022 ambulatory Bryon Cowart Other [employer] Other Start: 10-05-2022 Telephone encounter Bryon Cowart [facility] Start: 10-03-2022 End: 10-04-[address] BRYON COWART Facility: Start: 09-27-2022 End: 09-27-2022 ambulatory Bryon Cowart Other [employer] Other Start: 09-27-2022 Telephone encounter Bryon Cowart [facility] Start: 09-15-2022 End: 09-15-2022 ambulatory Bryon Cowart Other [employer] Other Start: 09-15-2022 Telephone encounter Bryon Cowart [facility] Start: 09-02-2022 End: 09-02-2022 ambulatory Bryon Cowart Other [employer] Other Start: 09-02-2022 Office outpatient vi sit 15 minutes Bryon Cowart [facility] Start: 08-29-2022 End: 08-30-[address] EVERETTE MONTAGUE . Facility:[facility] Start: 08-20-2022 End: 08-20-2022 ambulatory Bryon Cowart Other [employer] Other Start: 08-20-2022 Telephone encounter Bryon Cowart [facility] Start: 08-17-2022 End: 08-17-2022 ambulatory SHAIKH Jose BANDA Facility:[facility] Start: 08-17-2022 ambulatory VANDA SAM . Facility :[facility] Start: 08-10-2022 End: 08-11-2022 ambulatory VANDA SAMSA . Facility:[facility] Start: 08-09-2022 End: 08-09-2022 ambulatory Bryon Cowart Other [employer] Other Start: 08-09-2022 Telephone encounter Bryon Cowart [facility] Start: 07-22-2022 End: 07-22-2022 ambulatory Bryon Cowart Other [employer] Other Start: 07-22-2022 Telephone encounter Bryon Cowart [facility] Start: 07-01-2022 End: 07-02-[address] [...] Update Start: 11-04-2021 Telephone encounter Molly trinidad APRN.MARKETING PROFESSOR Work Phone: Pulmonary Medicine Comment on above: Missed appointments Start: 11-03-2021 Orders Only Molly aguirre CHIEF FINANCIAL OFFICER.MARKETING PROFESSOR Work Phone: Pulmonary Medicine Comment on above: Chronic obstructive pulmonary disease, unspecified COPD type (HCC) (Primary Dx); 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 Start: 03-18-2022 Influenza vaccination INFLUENZ A (Season Ended) [facility] Start: 11-04-2021 End: 01-04-2022 HEPATITIS A ANTIBODY, IGG HEPATITIS A ANTIBODY, IGG Lab Routine Chronic obstructive pulmonary disease, unspecified COPD type (HCC) Lung transplant candidate Expected: 11/04/2021, Expires: 01/04/2022 [facility] Work Phone: Comment on above: Expected: 11/04/2021 , Expires: 01/04/2022 Start: 11-03-2021 End: 11-03-2022 ARTERIAL BLOOD GASES ARTERIAL BLOOD GASES Lab Routine Cqdsa-3-naftoenfnby deficiency (HCC) Expected: 11/03/2021, Expires: 11/03/2022 [facility] Work Phone: Comment on above: Expected: 11/03/2021 , Expires: 11/03/2022 Start: 11-04-2014 PROSTATE CANCER SCREENING DISCUSSION PROSTATE CANCER SCREENING DISCUSSION [facility] Start: 11-04-2009 SHINGRIX VACCINE (1 of 2) SHINGRIX VACCINE (1 of 2) [facility] Start: 11-04-2004 COLOGUARD (FIT-DNA) COLOGUARD (FIT-D NA) [facility] Start: 11-04-[address] [facility] Start: 11-04-2004 COLORECTAL CANCER SCREENING COLORECTAL CANCER SCREENING [facility] Start: 11-04-[address] COLONOGRAPHY [facility] Start: 11-04-2004 FECAL OCCULT BLOOD FECAL OCCULT BLOO D [facility] Start: 11-04-2004 SIGMOIDOSCOPY SIGMOIDOSCOPY [facility] Start: 11-04-1989 Zoledronic acid therapy ALPHA- 1 ANT[address]RYPS[address]IENCY SCREENING [facility] Start: 11-04-1978 ADULT PREVNAR-13 ADULT PREVNAR-13 [facility] Start: 11-04-1978 HEPATITIS A (1 of 2 - Risk 2-dose series) HEPATITIS A (1 of 2 - Risk 2-dose series) [facility] Start: 11-04-1978 Hepatitis A Vaccine (1 of 2 - Risk 2-dose series) Hepatitis A Vaccine (1 of 2 - Risk 2-dose series) [facility] Start: 11-04-1978 SHINGRIX VACCINE (1 of 2) SHINGRIX VACCINE (1 of 2) [facility] Start: 11-04-1978 TWO PNEUMOVAX 5 YEAR S APART PRIOR TO AGE 65 (#1) TWO PNEUMOVAX 5 YEARS APART PRIOR TO AGE 65 (#1) [facility] Start: 11-04-[address] [facility] Start: 11-04-1977 ANNUAL PCP TEAM OIL HEATER INSTALLER SARAH DISEASE VISIT ANNUAL PCP TEAM CHRONIC DISEASE VISIT [facility] Start: 11-04-1977 BP CONTROLLED (<130/80) BP CONTROLLE D (<130/80) [facility] Start: 11-04-1969 3 comp foot exam completed DIABETIC FOOT EXAM [facility] Start: 11-04-1969 Hepatitis B screening URINE ALBUMIN:CREATININE RATIO [facility] Start: 11-04-1969 Hepatitis C antibody , confirmatory test DILATED RETINAL EXAM [facility] Start: 11-04-1965 PNEUMOCOCCAL (1 - PCV) PNEUMOCOCCAL (1 - PCV) [facility] Start: 11-04-1965 Pneumococcal vaccination Pneum ococcal Vaccine (1 - PCV) [facility] Start: 11-04-1964 COVID-19 VACCINE (1) COVID-19 VACCIN E (1) [facility] Start: 11-04-1964 Hemoglobin A1c/Hemoglobin.total in Blood HBA1C [facility] Start: 11-04-1960 HEPATITIS A (1 of 2 - Risk 2-dose series) HEPATITIS A (1 of 2 - Risk 2-dose series) [facility] Start: 05-06-1960 COVID-19 VACCINE (#1) COVID-19 VACCI NE (#1) [facility] Immunizations Immunization Date Immunization Notes Care Provider Fa [facility] 05-16-2020 influenza virus vaccine, unspecified formulation Capo Meraz RN [facility] 05-10-2018 influenza virus vaccine, unspecified formulation SARAH KEITH [facility] 05-10-2018 pneumococcal conjuga te vaccine, 13 valent SARAH KEITH [facility] Payers Date Payer Category Payer Medicare [id number] 2018 Unknown [employer]EREZA WICK [employer]E SS PPO [id number] 2018-Present [phone] [address] [place] [address] PPO [id number] 2018 Unknown [employer]EREZA BLUE ACCE SS PPO [id number] 2018-Present [phone] [address] [place] [address] PPO [id number] 1959 Unknown [id number] 2.16.840.1.292321.3.579.2. 647 1959 Unknown [id number] 2.16.840.1.303134.3.579.2. 593 1959 Unknown [id number] 2.16.840.1.964866.3.579.2. 593 1959 Unknown [id number] 2.16.840.1.613205.3.579.2. 593 1959 Unknown [id number] 2.16.840.1.535969.3.579.2. 593 1959 Unknown [id number] 2.16.840.1.399730.3.579.2. 593 1959 Unknown [id number] 2.16.840.1.476953.3.579.2. 593 1959 Unknown [id number] 2.16.840.1.060159.3.579.2. 593 1959 Unknown [id number] 2.16.840.1.185690.3.579.2. 593 1959 Unknown [id number] 2.16.840.1.810395.3.579.2. 593 1959 Unknown [id number] 2.16.840.1.863002.3.579.2. 593 1959 Unknown [id number] 2.16.840.1.675860.3.579.2. 593 1959 Unknown [id number] 2.16.840.1.117106.3.579.2. 727 1959 Unknown [id number] 2.16.840.1.306953.3.579.2. 727 1959 Unknown [id number] 2.16.840.1.498223.3.579.2. 727 1959 Unknown [id number] 2.16.840.1.558353.3.579.2. 727 1959 Unknown [id number] 2.16.840.1.344346.3.579.2. 727 1959 Unknown [id number] 2.16.840.1.622230.3.579.2. 727 1959 Unknown [id number] 2.16.840.1.531266.3.579.2. 727 1959 Unknown [id number] 2.16.840.1.977603.3.579.2. 1959 Unknown [id number] 2.16.840.1.538945.3.579.2. 1959 Unknown [id number] 2.16.840.1.522431.3.579.2. 1959 Unknown [id number] 2.16.840.1.774131.3.579.2. 1959 Unknown [id number] 2.16.840.1.924956.3.579.2 1959 Unknown [id number] 2.16.840.1.479210.3.579.27 1960 Private Health Insurance [id number] 2.16.840.1.945563.19 1959 Self-pay [id number] 1960 Self-pay 1959 Unknown [id number] 1960 Unknown [id number] Medicare [id number] [id number] Unknown [id number] Social History Date Type Detail Facility Tobacco smoking stat [facility] Tobacco smoking consumption unknown [facility] Work Phone: Start: 1960 Sex Assigned At Not on file [facility] Start: 10-24-2021 End: 11-03-2021 Exposure to SARS-CoV-2 (event) Not sure [facility] Work Phone: Start: 03-18-2021 Sex Assigned At F [facility] Start: 03-18-2021 History of Social function [facility] National Score (1-10 0), lower number is lower risk Not on file [facility] [place] Comment on above: Patient is a former 2 pack a day smoker. Quit over 15 years ago. Start: 03-17-2021 Gender identity Identifies as male gender (finding) [facility] Start: 03-17-2021 Sexual orientation Heterosexual (ambrocio toribio) [facility] Start: 06-27-2023 End: 01-24-2024 Tobacco smoking status NHIS Ex-smoker (finding) [facility] Comment on above: Patient is a former 2 pack a day smoker. Quit over 15 years ago. Start: 1960 Sex Assigned At Male F [facility] Clinical Notes 11-04-2021 to 06-04-2024 Note Date & Type Note Facility 06-04-2024 Note Family Medicine Offi ce/Clinic Note Chief Complaint ent referral HPI Staff Pt in office today to discuss referral to ent, Pt states he's constantly having sinus drainage for 3mth that is progressively getting worse. History of Present Illness Patient presents today to discuss referral to ENT. He states he has been having clear and watery nasal drainage for the last 2 months. He states the drainage comes and goes throughout the day but bothers him a great deal. He has not tried any OTC treatments for this. He denies fever or cough. Review of Systems PHQ Score Initial Depression Screen Score: 2 SCORE Constitutional: no fever, no chills, no sweats, no weakness Skin: no Jaundice, no rash, no lesions, nopetechiae ENMT: no ear pain, no sore throat, no congestion, no hoarseness Respiratory: no shortness of breath, no cough, no orthopnea, no wheezing Cardiovascular: no chest pain, no palpitations, no edema Musculoskeletal: no back pain, no trauma Neurologic: no headache, no dizziness, no numbness, no weakness Psychiatric: no sleeping problems, no irritability, no mood swings/depression. Additional ROS info: Except as noted in the above Review of Systems and in the History of Present Illness all other systems have been reviewed and are negative or noncontributory. Physical Exam Vitals & Measurements HR: 82(Peripheral) BP: 120/80 SpO2: 95% HT: 70 in HT: 177 cm WT: 108 kg WT: 238.099 lb BMI: 34.47 General: alert, no acute distress Skin: warm, dry Head: no trauma, normocephalic Neck: Trachea midline, no adenopathy, no tenderness Eye: normal conjunctiva, sclera clear ENMT: TM's clear, oral mucosa moist, no pharyngeal erythema or exudate, no sinus tenderness Cardiovascular: regular rate and rhythm, normal peripheral perfusion Respiratory: Lungs expiratory wheezes, respirations non labored Neurological: oriented x 4, LOC appropriate for age speech normal Psychiatric: cooperative, affect appropriate for age, normal judgement, normal psychiatric thoughts. Assessment/Plan 1. Allergic rhinitis, mild (J30.9: Allergic rhinitis, unspecified) Explained to patient why a referral would not be placed at this appointment Patient in agreement to try cetirizine 10 mg one tablet daily f/U on Tuesday Ordered: cetirizine, 10 mg = 1 tab(s), Oral, Daily, PRN for allergy symptoms, # 7 tab(s), Refills(s) 0, samples given to patient (Rx) 2. Obesity, Class II, BMI 35-39.9, no comorbidity (E66.812: Obesity, class 2) The standard range for ages 18 and older is >=18.5 and < 25 kg/m2. Your BMI today was above this range, this falls in the overweight to obese category and there are medical benefits to weight loss. We can offer counselling, referral, and/or medical support in addressing this problem. Your BMI and weight management will be followed at subsequent visits. Total time spent preparing the chart, conducting of the encounter with the patient and family and time spent documenting, reviewing, and ordering tests was 25 minutes. Follow-up No qualifying data available Patient Education Allergic Rhinitis, Adult Problem List/Past Medical History Ongoing Anxiety Chronic hypoxic respiratory failure Emphysema/COPD History of opioid abuse Hyperlipidemia Morbid obesity Obesity (BMI 30-39.9) Obesity, Class II, BMI 35-39.9, no comorbidity Type 2 diabetes mellitus with complication Type 2 diabetes mellitus with hyperlipidemia Historical No qualifying data Procedure/Surgical History Cardiac catheter. Medications aripiprazole 10 mg Tab, 10 mg= 1 tab(s), Oral, Daily aspirin 81 mg Oral EC Tab, 81 mg= 1 tab(s), Oral, Daily, Not taking cetirizine 10 mg Tab, 10 mg= 1 tab(s), Oral, Daily, PRN Combivent Respimat 20 mcg-100 mcg, 1 puff(s), Inhalation, QID cyclobenzaprine 5 mg Tab, 5 mg= 1 tab(s), Oral, BID, Not taking furosemide 40 mg Tab, 40 mg= 1 tab(s), Oral, Daily glipiZIDE 10 mg Tab, 10 mg= 1 tab(s), Oral, BID hydrOXYzine hydrochloride 25 mg Tab, See Instructions hydrOXYzine hydrochloride 50 mg oral tablet, 50 mg= 1 tab(s), Oral, TID, PRN Jardiance 25 mg oral tablet, 25 mg= 1 tab(s), Oral, qAM lisinopril 5 mg Tab, 5 mg= 1 tab(s), Oral, Daily metoprolol 25 mg ER Tab, 25 mg= 1 tab(s), Oral, Daily Mucinex DM 30 mg-600 mg Tab-ER, See Instructions omeprazole 20 mg Cap-DR, 20 mg= 1 cap(s), Oral, Daily, 1 refills Ozempic 2 mg/3 mL (0.25 mg or 0.5 mg dose) subcutaneous solution, 0.5 mg, SubCutaneous, qWeek, 1 refills pravastatin 80 mg Tab, 80 mg= 1 tab(s), Oral, Once a day (at bedtime), 1 refills Prolastin-C, See Instructions theophylline 450 mg ER Tab, See Instructions Trelegy Ellipta 100 mcg-62.5 mcg-25 mcg inhalation powder, 1 puff(s), Inhalation, Daily venlafaxine 150 mg Cap-ER, 150 mg= 1 cap(s), Oral, BID Allergies metFORMIN (Diarrhea) Social History Alcohol Current. Beer. Daily., 06/04/2024 Substance Abuse Past. Marijuana. 1-2 times per year. Previous treatment: None., 06/04/2024 (more content not included)... [facility] Comment on above: Result Comment: Elec tronically Signed By: SARAH KEITH CNP\.mitchel\Date and Time Signed: 06/04/24 15:43 EST 06-04-2024 Note Patient Education Immunology Allergic Rhinitis, Adult Allergic rhinitis is an allergic reaction that affects the mucous membrane inside the nose. The mucous membrane is the tissue that produces mucus. There are two types of allergic rhinitis: ??? Seasonal. This type is also called hay fever and happens only during certain seasons. ??? Perennial. This type can happen at any time of the year. Allergic rhinitis cannot be spread from person to person. This condition can be mild, bad, or very bad. It can develop at any age and may be outgrown. What are the causes? This condition is caused by allergens. These are things that can cause an allergic reaction. Allergens may differ for seasonal allergic rhinitis and perennial allergic rhinitis. ??? Seasonal allergic rhinitis is caused by pollen. Pollen can come from grasses, trees, and weeds. ??? Perennial allergic rhinitis may be caused by: ? Dust mites. ? Proteins in a pet's pee (urine), saliva, or dander. Dander is skin cells from a pet. ? Smoke, mold, or car fumes. ? Remains of or waste from insects such as cockroaches. What increases the risk? You are more likely to develop this condition if you have a family history of allergies or other conditions related to allergies, including: ??? Allergic conjunctivitis. This is irritation and swelling of parts of the eyes and eyelids. ??? Asthma. This condition affects the lungs and makes it hard to breathe. ??? Atopic dermatitis or eczema. This is buttermaker continuous churn (chronic) irritation and swelling of the skin. ??? Food allergies. What are the signs or symptoms? Symptoms of this condition include: ??? Sneezing or coughing. ??? A stuffy nose (nasal congestion), itchy nose, or nasal discharge. ??? Itchy eyes and tearing of the eyes. ??? A feeling of mucus dripping down the back of your throat (postnasal drip). This may cause a sore throat. ??? Trouble sleeping. ??? Tiredness. ??? Headache. How is this diagnosed? This condition may be diagnosed with your symptoms, your medical history, and a physical exam. Your health care provider may check for related conditions, such as: ??? Asthma. ??? [place] eye. This is eye swelling and irritation caused by infection (conjunctivitis). ??? Ear infection. ??? Upper respiratory infection. This is an infection in the nose, throat, or upper airways. You may also have tests to find out which allergens cause your symptoms. These may include skin tests or blood tests. How is this treated? There is no cure for this condition, but treatment can help control symptoms. Treatment may include: ??? Taking medicines that block allergy symptoms, such as corticosteroids (anti-inflammatories) and antihistamines. Medicine may be given as a shot, nasal spray, or pill. ??? Avoiding any allergens. ??? Being exposed again and again to tiny amounts of allergens to help you build a defense against allergens (allergenimmunotherapy). This is done if other treatments have not helped. It may include: ? Allergy shots. These are injected medicines that have small amounts of an allergen in them. ? Sublingual immunotherapy. This involves taking small doses of a medicine with an allergen in it under your tongue. If these treatments do not work, your provider may prescribe newer, stronger medicines. Follow these instructions at home: Avoiding allergens Find out what you are allergic to and avoid those allergens. These are some things you can do to help avoid allergens: ??? If you have perennial allergies: ? Replace carpet with wood, tile, or vinyl hemalatha. Carpet can trap dander and dust. ? Do not smoke. Do not allow smoking in your home ? Change your heating and air conditioning filters at least once a month. ??? If you have seasonal allergies, take these steps during allergy season: ? Keep windows closed as much as possible. ? Plan outdoor activities when pollen counts are lowest. Check pollen counts before you plan outdoor activities ? When coming indoors, change clothing and shower before sitting on furniture or bedding. ??? If you have a pet in the house that produces allergens: ? Keep the pet out of the bedroom. ? Vacuum, sweep, and dust regularly. General instructions ??? Take aezg-wdj-gecewek and prescription medicines only as told by your provider. ??? Drink enough fluid to keep your pee pale yellow. Where to find more information ??? [place] Academy of Allergy, Asthma & Immunology: aaaai.org Contact a health care provider if: ??? You have a fever. ??? You develop a cough that does not go away. ??? You make high-pitched whistling sounds when you breathe, most often when you breathe out (wheeze). ??? Your symptoms slow you down or stop you from doing your normal activities each day. Get help right away if: ??? You have shortness of breath. This symptom may be an emergency. Get help right away. Call 911. ??? Do not wait to see if the sy (more content not included)... [facility] 05-22-2024 Note Patient Education Endocrinology Diabetes Mellitus and Exercise Regular exercise is important for your health, especially if you have diabetes mellitus. Exercise is not just about losing weight. It can also help you increase muscle strength and bone density and reduce body fat and stress. This can help your level of endurance and make you more fit and flexible. Why should I exercise if I have diabetes? Exercise has many benefits for people with diabetes. It can: ??? Help lower and control your blood sugar (glucose). ??? Help your body respond better and become more sensitive to the hormone insulin. ??? Reduce how much insulin your body needs. ??? Lower your risk for heart disease by: ? Lowering how much bad cholesterol and triglycerides you have in your body. ? Increasing how much good cholesterol you have in your body. ? Lowering your blood pressure. ? Lowering your blood glucose levels. What is my activity plan? Your health care provider or an expert trained in diabetes care (certified pharmacist assistant) can help you make an activity plan. This plan can help you find the type of exercise that works for you. It may also tell you how often to exercise and for how long. Be sure to: ??? Get at least 150 minutes of medium-intensity or high-intensity exercise each week. This may involve brisk walking, biking, or water aerobics. ??? Do stretching and strengthening exercises at least 2 times a week. This may involve yoga or weight lifting. ??? Spread out your activity over at least 3 days of the week. ??? Get some form of physical activity each day. ? Do not go more than 2 days in a row without some kind of activity. ? Avoid being inactive for more than 30 minutes at a time. Take frequent breaks to walk or stretch. ??? Choose activities that you enjoy. Set goals that you know you can accomplish. ??? Start slowly and increase the intensity of your exercise over time. How do I manage my diabetes during exercise? Monitor your blood glucose ??? Check your blood glucose before and after you exercise. ? If your blood glucose is 240 mg/dL (13.3 mmol/L) or higher before you exercise, check your urine for ketones. These are chemicals created by the liver. If you have ketones in your urine, do not exercise until your blood glucose returns to normal. ? If your blood glucose is 100 mg/dL (5.6 mmol/L) or lower, eat a snack that has 15?20 grams of carbohydrate in it. Check your blood glucose 15 minutes after the snack to make sure that your level is above 100 mg/dL (5.6 mmol/L) before you start to exercise. ??? Your risk for low blood glucose (hypoglycemia) goes up during and after exercise. Know the symptoms of this condition and how to treat it. Follow these instructions at home: ??? Keep a carbohydrate snack on hand for use before, during, and after exercise. This can help prevent or treat hypoglycemia. ??? Avoid injecting insulin into parts of your body that are going to be used during exercise. This may include: ? Your arms, when you are going to play tennis. ? Your legs, when you are about to go jogging. ??? Keep track of your exercise habits. This can help you and your health care provider watch and adjust your activity plan. Write down: ? What you eat before and after you exercise. ? Blood glucose levels before and after you exercise. ? The type and amount of exercise you do. ??? Talk to your health care provider before you start a new activity. They may need to: ? Make sure that the activity is safe for you. ? Adjust your insulin, other medicines, and food that you eat. ??? Drink water while you exercise. This can stop you from losing too much water (dehydration). It can also prevent problems caused by having a lot of heat in your body (heat stroke). Where to find more information ??? [place] Diabetes Association: diabetes.org ??? Association of Diabetes Care & Education Specialists: diabeteseducator.org This information is not intended to replace advice given to you by your health care provider. Make sure you discuss any questions you have with your health care provider. Document Revised: 12/22/2022 Document Reviewed: 12/22/2022 Elsevier Patient Education ? 2023 [employer] [facility] 01-24-2024 Note Patient Education BMI for Adults [...] numbers. This can be done either in [place] or metric measurements. Note that charts and online BMI calculators are available to help you find your BMI quickly and easily without having to do these calculations yourself. To calculate your BMI in [place] measurements: 1. Measure your weight in [...] for Disease Control and Prevention: www.cdc.gov ? [place] Heart Association: www.heart.org ? National Heart, Lung, and Blood [place]: www.nhlbi.nih.gov Summary ? Body mass index (BMI) is a number that is calculated from a person's weight and height. ? BMI may help estimate how much of a person's weight is composed of fat. BMI can help identify those who may be at higher risk for certain medical problems. ? BMI can be measured using [place] measurements or metric measurements. ? BMI charts are used to identify whether you are underweight, normal weight, overweight, or obese. This information is not intended to replace advice given to you by your health care provider. Make sure you discuss any questions you have with your health care provider. Document Revised: 03/26/2020 Document Reviewed: 02/01/2020 [employer] Patient Education ? 2022 [employer] Endocrinology Diabetes Mellitus and Standards of Medical Care Living with and managing diabetes (diabetes mellitus) can be complicated. Your diabetes treatment may be managed by a team of health care providers, including: ? A physician who specializes in diabetes (criminal intelligence analyst). You might also have visits with a nurse practitioner or physician radiology assistant. ? Nurses. ? A registered dietitian. ? A certified diabetes care and education sales consultant. ? An auditing specialist. ? A pharmacist. ? An eye doctor. ? A product development specialist (multilith operator). ? A dental care provider. ? A primary care provider. ? A mental health care provider. How to manage your diabetes You (more content not included)... [facility] 01-24-2024 Note Patient Education Endocrinology Preventing [...] To avoid foot (more content not included)... [facility] 01-18-2024 Note Patient Education Mental and [...] (Inserted Image. Ludivina (more content not included)... [facility] 08-26-2023 Evaluation note Encounter Date Diagnosis Assessment Notes Aug, Anxiety, generalized (ICD-10 - F41.1) [facility] Other 01-18-2024 Evaluation note* Encounter Date Diagnosis Assessment Notes Treatment Notes Treatment Clinical Notes Jul, Acute cervical radiculopathy (ICD-10 - M54.12) [facility] Other 12-26-2023 Evaluation note* Encounter Date Diagnosis Assessment Notes Treatment Notes Treatment Clinical Notes Jun, Acute cervical radiculopathy (ICD-10 - M54.12) [facility] Other 12-11-2023 Evaluation note* Encounter Date Diagnosis Assessment Notes Treatment Notes Treatment Clinical Notes Jun, Chronic obstructive pulmonary disease (ICD-10 - J44.9) Chronic problem, improved. Keep appt w Dr. Pacheco. Jun, Type 2 diabetes mellitus with hyperglycemia, without long-term current use of insulin (ICD-10 - E11.65) Chronic problem, recheck A1C in near future. Get yearly eye exams. Jun, Anxiety, generalized (ICD-10 - F41.1) Chronic problem that is stable presently. [facility] Other 12-08-2023 Evaluation note* Encounter Date Diagnosis Assessment Notes Treatment Notes Treatment Clinical Notes Jun, Anxiety, generalized (ICD-10 - F41.1) [facility] Other 11-17-2023 Evaluation note* Encounter Date Diagnosis Assessment Notes Treatment Notes Treatment Clinical Notes May, Acute cervical radiculopathy (ICD-10 - M54.12) [facility] Other 11-14-2023 Evaluation note* Encounter Date Diagnosis Assessment Notes Treatment Notes Treatment Clinical Notes May, Anxiety, generalized (ICD-10 - F41.1) May, Acute cervical radiculopathy (ICD-10 - M54.12) [facility] Other 10-23-2023 Evaluation note* Encounter Date Diagnosis Assessment Notes Treatment Notes Treatment Clinical Notes Apr, Acute cervical radiculopathy (ICD-10 - M54.12) [facility] Other 10-09-2023 Miscellaneous Notes* Telephone Encounter - [...] any questions. Capo Meraz RN, BSN Pre-Lung Plaster [facility]* Encounter Date Diagnosis Assessment Notes Treatment Notes Treatment Clinical Notes Mar, Acute cervical radiculopathy (ICD-10 - M54.12) [facility] Other 08-28-2023 Evaluation note* Encounter Date Diagnosis Assessment Notes Treatment Notes Treatment Clinical Notes Feb, Acute cervical radiculopathy (ICD-10 - M54.12) [facility] Other 08-24-2023 Miscellaneous Notes* Telephone Encounter - [...] being full. Capo Meraz RN, BSN Pre-Lung Plaster Lather [facility]* Encounter Date Diagnosis Assessment Notes Treatment Notes Treatment Clinical Notes Feb, Type 2 diabetes mellitus with hyperglycemia, without long-term current use of insulin (ICD-10 - E11.65) [facility] Other 08-17-2023 Evaluation note* Encounter Date Diagnosis [...] lose weight to improved his severe COPD> [facility] Other 08-17-2023 Evaluation note* Encounter Date Diagnosis [...] lose weight to improve his lung function [facility] Other 07-27-2023 Evaluation note* Encounter Date Diagnosis Assessment Notes Treatment Notes Treatment Clinical Notes Jan, Acute cervical radiculopathy (ICD-10 - M54.12) [facility] Other 06-15-2023 Evaluation note* Encounter Date Diagnosis Assessment Notes Treatment Notes Treatment Clinical Notes Dec, Anxiety, generalized (ICD-10 - F41.1) Added alprazolam for anxiety symptoms. Also states needs refill on venlafaxine. Dec, Chronic obstructive pulmonary disease (ICD-10 - J44.9) Called Dr. Pacheco. He states Ricardo needs to heal from recent hospitalization before repeat PFTs and the many requirements before the referral for the zephyr procedure can be started through [facility]. Keep appt in January w his office. [facility] Other 04-28-2023 Evaluation note* Encounter Date Diagnosis Assessment Notes Treatment Notes Treatment Clinical Notes Oct, Acute cervical radiculopathy (ICD-10 - M54.12) [facility] Other 02-16-2023 Evaluation note* Encounter Date Diagnosis Assessment Notes Treatment Notes Treatment Clinical Notes Aug, Chronic obstructive pulmonary disease (ICD-10 - J44.9) Continue present meds including lengthy steroid taper. Continue to followup w Dr. Pacheco. He has not heard anything lately from [facility] transplant dept. [facility] Other 04-27-2022 Miscellaneous Notes* Telephone Encounter - [...] options. Maximino [facility] Miscellaneous Notes* Telephone Encounter - Molly Gan APRN.MARKETING PROFESSOR - 11/04/2021 2:27 PM EDT Patient not in attendance for lung transplant appts on 11/04. Attempted to contact patient to reschedule. VM left requesting call back. Molly Gan, MSN, CHIEF FINANCIAL OFFICER-MARKETING PROFESSOR Lung [facility] Future Appointments Appointment Date:04/24/2024 01:40:00 PM Scheduled Provider:SARAH KEITH CNP Location:[facility] Appointment Type: Open Appointment Date:01/29/2025 01:00:00 PM Scheduled Provider: Location:[facility] Appointment Type: Medicare Wellness Subsequent Future Scheduled Tests Laboratory* HCV Antibody RFX to Quant PCR 01/24/24 [facility] note* Diagnosis Chronic obstructive pulmonary disease, unspecified COPD type (HCC)- Primary Lung transplant candidate [facility]* Diagnosis 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 Surgical History heart catheterization, no stent s Hospitalization History SEE ABOVE [facility] Other Hospital course Narrative No data [facility] for this section [facility] No data available for this section [facility] No data available for this section [facility] Summary Purpose Family History No Family [...] section and content) DATE CREATED AUTHOR 03/17/2019 [facility] DATE CREATED AUTHOR AUTHOR'S ORGANIZ ATION 10/06/2022 [facility] DATE CREATED AUTHOR AUTHOR'S ORGANIZ ATION 04/25/2023 [facility] DATE CREATED AUTHOR AUTHOR'S ORGANIZ ATION 04/26/2024 [facility] DATE CREATED AUTHOR AUTHOR'S ORGANIZ ATION 06/20/2024 [facility] Source Comments (unrecognize d section and content) In the event this informatio n is protected by the Federal Confidentiality of Alcohol and Drug Abuse Patient Records regulations: The Federal rules restrict any use of the information to criminally investigate or prosecute any alcohol or drug abuse patient.[facility] HospitalIn the event this information is protected by the Federal Confidentiality of Alcohol and Drug Abuse Patient Records regulations: The Federal rules restrict any use of the information to criminally investigate or prosecute any alcohol or drug abuse patient.[facility] HospitalIn the event this information is protected by the Federal Confidentiality of Alcohol and Drug Abuse Patient Records regulations: The Federal rules restrict any use of the information to criminally investigate or prosecute any alcohol or drug abuse patient.[facility]In the event this information is protected by the Federal Confidentiality of Alcohol and Drug Abuse Patient Records regulations: The Federal rules restrict any use of the information to criminally investigate or prosecute any alcohol or drug abuse patient.[facility] HospitalIn the event this information is protected by the Federal Confidentiality of Alcohol and Drug Abuse Patient Records regulations: The Federal rules restrict any use of the information to criminally investigate or prosecute any alcohol or drug abuse patient.[facility] HospitalIn the event this information is protected by the Federal Confidentiality of Alcohol and Drug Abuse Patient Records regulations: The Federal rules restrict any use of the information to criminally investigate or prosecute any alcohol or drug abuse patient.[facility] Care Teams (unrecognized sec tion and content) Changer Fixer Relationship Specialty Start Date End Date Bryon Cowart MD [address] [place] [id number] PCP - General Family Practice 03/12/20 Vanda Pacheco DO Referring Pulmonary and Critical Care Medicine 03/12/20 Changer Fixer Relationship Specialty Start Date End Date Bryon Cowart MD [address] [place] [facility] [place] [place] [id number] PCP - General Family Practice 03/12/20 Vanda Pacheco DO Referring Pulmonary and Critical Care Medicine 03/12/20 Changer Fixer Relationship Specialty Start Date End Date Bryon Cowart MD [address] [place] [facility] [place] [address] PCP - General Family Practice 03/12/20 Vanda Pacheco DO Referring Pulmonary and Critical Care Medicine 03/12/20 Changer Fixer Relationship Specialty Start Date End Date Bryon Cowart MD [address] [place] [facility] [place] [address] PCP - General Family Medicine 03/12/20 Vanda Pacheco DO [address] [place] [facility] [place] [address] Referring Pulmonary and Critical Care Medicine [...] BE BASED ON THE PRIMARY CLINICAL RECORDS. [employer] provides no warranty or guarantee of the accuracy or completeness of information in this document.
--- NOTE | 2024-08-20 15:31 | XR_ITS ---
The [address] [address] Patient Name: RICARDO HYLTON MRN: [id number] date: 1960 Sex: M Assigned Patient Location: ER Current Patient Location: ED.MAIN Accession/Order Number: [id number] Exam Date: 08/20/2024 15:42 Report Date: 08/20/2024 15:59 At the request of: STEF VELAZQUEZ Procedure: XR chest 1V EXAMINATION: XR chest 1V HISTORY: SOB COMPARISON: XR chest 04/28/2024 FINDINGS: LUNGS: Underexpanded lungs with mild stranding within right lung base. VASCULATURE: No increased pulmonary vasculature. PLEURA: No pneumothorax, effusion, or pleural thickening. CARDIAC: No cardiomegaly or cardiac silhouette abnormality. MEDIASTINUM: No visible mass or adenopathy. BONES: Old, incompletely ossified right clavicle fracture. OTHER: Negative. XR/XR chest 1V IMPRESSION: 1. Low lung volume examination with trace amount right basilar atelectasis versus infiltrates; not significantly changed. Electronically authenticated by: TOM QUIGLEY Date: 08/20/2024 15:59
--- NOTE | 2024-08-20 15:31 | ECG_ITS ---
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
--- NOTE | 2024-08-20 15:33 | ED_ITS ---
HPI - SOB/Dyspnea General Chief Complaint: Shortness of Breath/Dyspnea Stated Complaint: short of breath Time Seen by Provider: 08/20/24 15:28 Source: patient Mode of arrival: walk-in Limitations: physical limitation History of Present Illness HPI Narrative: 63 year old male presents to the ED for increased SOB. It has been getting worse over the past 2-3 days. He has hx COPD. He wears [place] oxygen at home at 3L. Denies fever, chills, increased sputum production. Denies edema, N/V/D. He did no use his nebulizer today. Related Data Home Medications ?Medication ?Instructions ?Recorded ?Confirmed fluticasone fur. 100 mcg-umeclid 1 inh inhalation Q24H 12/20/22 07/04/24 62.5 mcg-vilant 25 mcg inhalat.powder (Trelegy Ellipta) glipizide 10 mg tablet 10 mg PO BID 12/20/22 08/20/24 lisinopril 5 mg tablet 5 mg PO DAILY 12/20/22 08/20/24 metoprolol succinate 25 mg 20 mg PO DAILY 12/20/22 08/20/24 tablet,extended release 24 hr omeprazole 20 mg capsule,delayed 20 mg PO DAILY 12/20/22 07/04/24 release latanoprost 0.005 % eye drops 1 drp ophthalmic (eye) DAILY 06/20/23 07/04/24 semaglutide 0.25 mg or 0.5 mg (2 0.5 mg subcut .weekly 06/20/23 07/04/24 mg/3 mL) subcutaneous pen injector (Ozempic) venlafaxine 150 mg 150 mg PO BID 06/20/23 08/20/24 capsule,extended release 24 hr hydroxyzine HCl 25 mg tablet 25 mg PO TID PRN anxiety 04/28/24 08/20/24 pravastatin 80 mg tablet 80 mg PO .QHS 04/28/24 08/20/24 theophylline 450 mg 450 mg PO Q12H 04/28/24 04/29/24 tablet,extended release,12 hr albuterol sulfate 2.5 mg/3 mL 2.5 mg inhalation Q4H PRN 07/04/24 08/20/24 (0.083 %) solution for nebulization shortness of breath or wheezing alpha-1 proteinase inhib.(hum) mg IV 12/18/24 1,000 mg intravenous solution aripiprazole 10 mg tablet 10 mg 07/04/24 prednisone 10 mg tablet 20 mg PO DAILY 08/20/24 08/20/24 Previous Rx's ?Medication ?Instructions ?Recorded albuterol sulfate 90 mcg/actuation 2 puff inhalation Q4H PRN 06/22/23 aerosol inhaler shortness of breath or wheezing #8.5 grams prednisone 10 mg tablet See Rx Instructions .Route 06/22/23 .COMPLEX #42 tabs theophylline 400 mg 400 mg PO Q12H 30 days #60 tabs 06/22/23 tablet,extended release 24 hr azithromycin 250 mg tablet See Rx Instructions PO .COMPLEX #6 08/20/24 (Zithromax Z-Parveen) tabs prednisone 10 mg tablet See Rx Instructions .Route 08/20/24 .COMPLEX #30 tabs Allergies Allergy/AdvReac Type Severity Reaction Status Date / Time metformin Allergy Intermediate Unknown Verified 08/20/24 15:23 Review of Systems ROS Constitutional Denies: fever or chills Ears, nose, mouth, and throat Denies: throat pain or neck pain Cardiovascular Denies: chest pain or palpitations Respiratory Reports: shortness of breath and cough Gastrointestinal Denies: abdominal pain, nausea, vomiting or diarrhea Musculoskeletal Denies: back pain or neck pain Integumentary/Breast Denies: rash Neurological Denies: headache, numbness in extremities or weakness in extremities [facility] Medical History (Updated 08/20/24 @ 17:53 by Winifred Driscoll) Hyponatremia ?E87.1 - Hypo-osmolality and hyponatremia (ICD-10) Leukocytosis ?D72.829 - Elevated white blood cell count, unspecified (ICD-10) Coronary artery disease ?I25.10 - Atherosclerotic heart disease of [place] coronary artery without angina pectoris (ICD-10) Pain, dental ?K08.89 - Other specified disorders of teeth and supporting structures (ICD- 10) COPD exacerbation ?J44.1 - Chronic obstructive pulmonary disease with (acute) exacerbation (ICD-10) Heartburn ?R12 - Heartburn (ICD-10) Depression ?F32.A - Depression, unspecified (ICD-10) Hypertension ?I10 - Essential (primary) hypertension (ICD-10) Type 2 diabetes mellitus ?E11.9 - Type 2 diabetes mellitus without complications (ICD-10) Family History (Updated 06/20/23 @ 14:19 by Arelis Moreno LPN) Mother Family history of CHF (congestive heart failure) Family history of diabetes mellitus Family history of hypertension Grandmother Family history of CHF (congestive heart failure) Family history of diabetes mellitus Father Family history of COPD (chronic obstructive pulmonary disease) Family history of cancer Social History Smoking status: Former smoker Little interest or pleasure in doing things: not at all Feeling down, depressed, or hopeless: not at all Gender Identity: male Exam Constitutional Vital Signs, click to edit/add: Last Vital Signs Temp 98.6 F 08/20/24 15:23 Pulse 91 H 08/20/24 17:40 Resp 33 H 08/20/24 17:40 BP 179/97 H 08/20/24 15:26 Pulse Ox 95 08/20/24 17:40 O2 Del Method Nasal Cannula 08/20/24 16:31 O2 Flow Rate 3 08/20/24 16:31 Common normals: no apparent distress and oriented x3 General appearance: cooperative Eye Common normals: conjunctivae normal and no scleral icterus Neck & C-Spine Common normals: supple Chest Chest: symmetrical chest wall rise Respiratory Common normals: no use of accessory muscles Effort & inspection: tachypneic and labored; no stridor Auscultation: diminished lung sounds Cardio Common normals: regular rate Rate: tachycardic GI Common normals: soft to palpation Extremity Common normals: no pedal edema Neuro Common normals: oriented x3 and moves all extremities Sensorium/orientation: awake and alert Course Vital Signs Vital signs: Vital Signs Temperature 98.6 F 08/20/24 15:23 Pulse Rate 103 H 08/20/24 15:23 Respiratory Rate 34 H 08/20/24 15:23 Blood Pressure 179/97 H 08/20/24 15:23 Pulse Oximetry 96 08/20/24 15:23 Oxygen Delivery Method Nasal Cannula 08/20/24 15:23 Oxygen Delivery Flow Rate 3 08/20/24 15:23 Temperature 98.6 F 08/20/24 15:23 Pulse Rate 91 H 08/20/24 17:40 Respiratory Rate 33 H 08/20/24 17:40 Blood Pressure 179/97 H 08/20/24 15:26 Pulse Oximetry 95 08/20/24 17:40 Oxygen Delivery Method Nasal Cannula 08/20/24 16:31 Oxygen Delivery Flow Rate 3 08/20/24 16:31 MDM - SOB/Dyspnea MDM Narrative Medical decision making narrative: Chest x-ray showed no acute findings. WBC count was unremarkable. Influenza was negative. Pt was given methylprednisolone and albuterol with improvement. He requested to be discharged home. Prescriptions were provided for prednisone and Zithromax. Follow up with pcp for a recheck, further evaluation and treatment. Return precautions were discussed. Differential Diagnosis Differential diagnosis: Likely acute exacerbation of chronic obstructive airways disease, congestive heart failure and community acquired pneumonia Medical Records Attestation: I reviewed the patient's medical records. Lab Data Attestation: I reviewed the patient's lab results. Labs: Lab Results 08/20/24 08/20/24 Range/Units 14:20 15:54 WBC 9.2 (4.0-11.0) 10^3/uL RBC 5.97 (4.70-6.10) 10^6/uL Hgb 14.2 (14.0-18.0) g/dL Hct 45.8 (42.0-54.0) % MCV 76.7 L (80.0-94.0) fL MCH 23.8 L (25.9-34.0) pg MCHC 31.0 (29.9-35.2) g/dL RDW 21.2 H (11.0-15.0) % Plt Count 343 (150-450) 10^3/uL MPV 8.5 L (9.5-13.5) fL Neut % (Auto) 68.5 (43.0-75.0) % Lymph % (Auto) 19.5 L (20.5-60.0) % Davison % (Auto) 10.0 (1.7-12.0) % Eos % (Auto) 1.0 (0.9-7.0) % Baso % (Auto) 0.7 (0.2-2.0) % Neut # (Auto) 6.3 (1.4-6.5) 10^3/uL Lymph # (Auto) 1.8 (1.2-3.8) 10^3/uL Davison # (Auto) 0.9 H (0.3-0.8) 10^3/uL Eos # (Auto) 0.1 (0.0-0.7) 10^3/uL Baso # (Auto) 0.1 (0.0-0.1) 10^3/uL Abs Immat Gran (auto) 0.03 (0.00-0.03) 10^3/uL Imm/Tot Granulo (auto) 0.3 (0.0-0.5) % Sodium 142 (136-145) mmol/L Potassium 4.0 (3.5-5.1) mmol/L Chloride 102 (98-107) mmol/L Carbon Dioxide 31.4 (21.0-32.0) mmol/L Anion Gap 12.6 BUN 10.0 (7.0-18.0) mg/dL Creatinine 1.16 (0.70-1.30) mg/dL Est GFR ( Amer) >60 (>=60 mL/min/1.73m^2) Est GFR (Non-Af Amer) >60 (>=60 mL/min/1.73m^2) BUN/Creatinine Ratio 8.6 Glucose 141 H (74-106) mg/dL Calcium 9.4 (8.5-10.1) mg/dL Total Bilirubin 0.4 (0.2-1.0) mg/dL AST 14 L (15-37) U/L ALT 21 (16-63) U/L Alkaline Phosphatase 109 (46-116) U/L Troponin I High Sens 23.6 (4.0-76.1) pg/mL NT-Pro-B Natriuret Pep 160.0 (<=900.0) pg/mL Total Protein 7.3 (6.4-8.2) g/dL Albumin 3.8 (3.4-5.0) g/dL Globulin 3.5 g/dL Albumin/Globulin Ratio 1.1 Influenza Type A Ag Negative Influenza Type B Ag Negative Imaging Data Chest x-ray: Attestation: I have reviewed the pertinent imaging results. Radiologist's impression: ITS Impressions Chest X-Ray 08/20/24 15:31 IMPRESSION: 1. Low lung volume examination with trace amount right basilar atelectasis versus infiltrates; not significantly changed. Electronically authenticated by: TOM QUIGLEY Date: 08/20/2024 15:59 ECG Data Attestation: ?I have reviewed the pertinent ECG results. (EKG was reviewed by the attending physician. It showed sinus tachycardia at a rate of 100. No acute ST segment elevation.) Interpretation: Measurements Intervals [place] Rate: 100 P: 56 OR: 150 QRS: 102 QRSD: 78 T: 71 QT: 334 QTc: 391 Interpretive Statements 1120 Sinus tachycardia 7300 Indeterminate axis 8003 Consistent with pulmonary disease 9150 abnormal ECG No previous ECG available for comparison Discharge Plan Discharge Chief Complaint: Shortness of Breath/Dyspnea Clinical Impression: COPD exacerbation Patient Disposition: Home, Self-Care Time of Disposition Decision: 17:52 Condition: Good Mode of Transportation: Private Vehicle Prescriptions / Home Meds: New azithromycin [Zithromax Z-Parveen] 250 mg tablet See Rx Instructions .ROUTE .COMPLEX Qty: 6 0RF Rx Instructions: For 250 mg dose pack: take 500 mg today (day 1), then 250 mg for 4 days (days 2-5) prednisone 10 mg tablet See Rx Instructions .ROUTE .COMPLEX Qty: 30 0RF Rx Instructions: Take 5 tablets on days 1-2, 4 tabs on days 3-4, 3 tabs on days 5-6, 2 tabs on days 7-8, 1 tab on days 9-10. No Action latanoprost 0.005 % drops 1 drp OPHTHALMIC (EYE) DAILY Ozempic 0.25 mg or 0.5 mg (2 mg/3 mL) pen injector 0.5 mg SUBCUT .weekly venlafaxine 150 mg capsule,extended release 24hr 150 mg PO BID theophylline 400 mg tablet extended release 24 hr 400 mg PO Q12H 30 Days Qty: 60 0RF albuterol sulfate 90 mcg/actuation HFA aerosol inhaler 2 puff INHALATION Q4H PRN (Reason: shortness of breath or wheezing) Qty: 8.5 0RF prednisone 10 mg tablet See Rx Instructions .ROUTE .COMPLEX Qty: 42 0RF Rx Instructions: 6 tabs daily x 2 days, then 5 tabs daily x 2 days, then 4 tabs daily x 2 days, then 3 tabs daily x 2 days, then 2 tabs daily x 2 days, then 1 tab daily x 2 days, then stop pravastatin 80 mg tablet 80 mg PO .QHS theophylline 450 mg tablet extended release 12 hr 450 mg PO Q12H hydroxyzine HCl 25 mg tablet 25 mg PO TID PRN (Reason: anxiety) Trelegy Ellipta 100-62.5-25 mcg blister with device 1 inh INHALATION Q24H glipizide 10 mg tablet 10 mg PO BID lisinopril 5 mg tablet 5 mg PO DAILY metoprolol succinate 25 mg tablet extended release 24 hr 20 mg PO DAILY omeprazole 20 mg capsule,delayed release(DR/EC) 20 mg PO DAILY alpha-1 proteinase inhib.(hum) 1,000 mg recon soln IV aripiprazole 10 mg tablet 10 mg albuterol sulfate 2.5 mg /3 mL (0.083 %) solution for nebulization 2.5 mg inhalation Q4H PRN (Reason: shortness of breath or wheezing) prednisone 10 mg tablet 20 mg PO DAILY Rx Instructions: 5/day for 3 days. 4/day for 3 days, 3/day for 3 days, 2/day for 3 days, 1/day for 3 days, 1/2 /day for 4 days Print Language: Martiniquais Referrals: Douglas Pacheco DO [Primary Care Provider] - 1 week
[2024-08-20 16:01] LABS: Basophils Absolute Auto 0.1 10^3/uL (0.0-0.1); Basophils Percent Auto 0.7 % (0.2-2.0); Eosinophils Absolute Auto 0.1 10^3/uL (0.0-0.7); Hematocrit 45.8 % (42.0-54.0); Hemoglobin 14.2 g/dL (14.0-18.0); Immature Granulocytes Abs Auto 0.03 10^3/uL (0.00-0.03); Immature Granulocytes Pct Auto 0.3 % (0.0-0.5); Lymphocytes Absolute Auto 1.8 10^3/uL (1.2-3.8); Lymphocytes Percent Auto 19.5 % (20.5-60.0); Mean Corpuscular Hemoglobin 23.8 pg (25.9-34.0); Mean Corpuscular Volume 76.7 fL (80.0-94.0); Mean Platelet Volume 8.5 fL (9.5-13.5); Monocytes Absolute Auto 0.9 10^3/uL (0.3-0.8); Neutrophils Absolute Auto 6.3 10^3/uL (1.4-6.5); Neutrophils Percent Auto 68.5 % (43.0-75.0); Platelet Count 343 10^3/uL (150-450); Red Blood Count 5.97 10^6/uL (4.70-6.10); Red Cell Distribution Width 21.2 % (11.0-15.0); White Blood Count 9.2 10^3/uL (4.0-11.0)
[2024-08-20 16:17] LABS: Alanine Aminotransferase 21 U/L (16-63); Albumin Globulin Ratio 1.1; Albumin Level 3.8 g/dL (3.4-5.0); Alkaline Phosphatase 109 U/L (46-116); Anion Gap 12.6; Aspartate Amino Transferase 14 U/L (15-37); BUN Creatinine Ratio 8.6; Bilirubin Total 0.4 mg/dL (0.2-1.0); Calcium 9.4 mg/dL (8.5-10.1); Carbon Dioxide 31.4 mmol/L (21.0-32.0); Chloride 102 mmol/L (98-107); Estimated GFR (African America >60 (>=60 mL/min/1.73m^2); Estimated GFR (Non-African Ame >60 (>=60 mL/min/1.73m^2); Globulin 3.5 g/dL; Glucose 141 mg/dL (74-106); Sodium 142 mmol/L (136-145); Total Protein 7.3 g/dL (6.4-8.2)
[2024-08-20] MEDS: METHYLPREDNISOLONE SOD SUCC PF 125 MG/2 ML VIAL IVP (16:20)
[2024-08-20 16:24] LABS: Troponin I High Sensitivity 23.6 pg/mL (4.0-76.1)
[2024-08-20] MEDS: ALBUTEROL SULFATE 2.5 MG/3 ML VIAL NEB IH (16:28)
[2024-08-20 17:25] LABS: Influenza Virus A Antigen Negative; Influenza Virus B Antigen Negative; Internal Control Within Normal Limits
== END 2024-08-20 18:14 | disposition home or self-care (01) ==
PROVIDERS: Nurse Practitioner Family; Emergency Provider Emergency Medicine; PCP Internal Medicine
DX: J44.1 Chronic obstructive pulmonary disease with (acute) exacerbation (principal); R06.02 Shortness of breath; Z99.81 Dependence on supplemental oxygen; Z87.891 Personal history of nicotine dependence
CPT/HCPCS: 36415; 71045; 80053; 83880; 84484; 85025; 87804; 93005; 94640; 96374; 99285; J2919

== ENCOUNTER 2024-09-13 07:39 | Outpatient (RCR) | payer MEDICARE, SELFPAY ==
[2024-08-22 14:37] VITALS: BP 165/93; PULSE 64; TEMP 35.7; O2SAT 96
[2024-08-22] MEDS: ALPHA-1-PROTEINASE INHIBITOR 6,222 MG in EMPTY BAG 1 ML 240 MG IV (14:54)
[2024-08-29 13:37] VITALS: BP 156/78; PULSE 82; TEMP 35.5; O2SAT 94
[2024-08-29] MEDS: ALPHA-1-PROTEINASE INHIBITOR 6,468 MG in EMPTY BAG 0 ML 240 MG IV (13:50)
[2024-09-05 10:52] VITALS: BP 177/80; PULSE 108; TEMP 35.6; O2SAT 98
[2024-09-05] MEDS: ALPHA-1-PROTEINASE INHIBITOR 6,468 MG in EMPTY BAG 0 ML 240 MG IV (11:29)
== END 2024-09-14 23:59 | disposition home or self-care (01) ==
LOC: INF 07:39
PROVIDERS: PCP Internal Medicine; Visit Provider Internal Medicine
DX: E88.01 Alpha-1-antitrypsin deficiency (principal); J43.2 Centrilobular emphysema
CPT/HCPCS: 96365; J0256

== ENCOUNTER 2024-10-10 07:34 | Outpatient (RCR) | payer MEDICARE, SELFPAY ==
[2024-09-19 14:33] VITALS: BP 160/66; PULSE 106; TEMP 36.1; O2SAT 96
[2024-09-19] MEDS: ALPHA IV (14:59)
[2024-09-19] MEDS: PROTEINASE INHIBITOR IV (14:59)
[2024-09-26 12:59] VITALS: BP 167/75; PULSE 107; TEMP 35.6; O2SAT 98
[2024-09-26] MEDS: ALPHA-1-PROTEINASE INHIBITOR 6,528 MG in EMPTY BAG 0 ML 240 MG IV (13:21)
[2024-10-10 14:25] VITALS: BP 145/93; PULSE 115; TEMP 36.1; O2SAT 97
[2024-10-10] MEDS: ALPHA-1-PROTEINASE INHIBITOR 6,576 MG in EMPTY BAG 0 ML 240 MG IV (15:06)
== END 2024-10-11 07:47 | disposition home or self-care (01) ==
LOC: INF 07:34
PROVIDERS: PCP Internal Medicine; Visit Provider Internal Medicine
DX: E88.01 Alpha-1-antitrypsin deficiency (principal); J43.2 Centrilobular emphysema
CPT/HCPCS: 96365; J0256

== ENCOUNTER 2024-11-14 07:41 | Outpatient (RCR) | payer OTHER, MEDICAID, SELFPAY ==
[2024-10-24 13:34] VITALS: BP 157/90; PULSE 85; TEMP 35.8; O2SAT 98
[2024-10-24] MEDS: ALPHA-1-PROTEINASE INHIBITOR 6,756 MG in EMPTY BAG 0 ML 240 MG IV (13:55)
[2024-10-31 14:42] VITALS: BP 149/72; PULSE 98; TEMP 35.5; O2SAT 95
[2024-10-31] MEDS: ALPHA-1-PROTEINASE INHIBITOR 6,522 MG in EMPTY BAG 0 ML 240 MG IV (15:07)
[2024-11-07 11:00] VITALS: BP 144/83; PULSE 115; TEMP 36.3; O2SAT 96
[2024-11-07] MEDS: ALPHA-1-PROTEINASE INHIBITOR 6,756 MG in EMPTY BAG 0 ML 240 MG IV (11:20)
== END 2024-11-14 23:59 | disposition home or self-care (01) ==
LOC: INF 07:41
PROVIDERS: PCP Internal Medicine; Visit Provider Internal Medicine
DX: E88.01 Alpha-1-antitrypsin deficiency (principal); J43.2 Centrilobular emphysema
CPT/HCPCS: 96365; J0256

== ENCOUNTER 2024-12-05 07:39 | Outpatient (RCR) | payer OTHER, MEDICAID, SELFPAY ==
[2024-11-28 14:32] VITALS: BP 157/77; PULSE 99; TEMP 36.5; O2SAT 97
[2024-11-28] MEDS: ALPHA-1-PROTEINASE INHIBITOR 6,576 MG in EMPTY BAG 0 ML 240 MG IV (15:00)
== END 2024-12-13 08:18 | disposition home or self-care (01) ==
LOC: INF 07:39
PROVIDERS: PCP Internal Medicine; Visit Provider Internal Medicine
DX: E88.01 Alpha-1-antitrypsin deficiency (principal); J43.2 Centrilobular emphysema
CPT/HCPCS: 96365; J0256

== ENCOUNTER 2024-12-18 14:26 | Outpatient (OUT) | payer MEDICARE, MEDICAID, SELFPAY ==
--- NOTE | 2024-12-18 | ECG_ITS ---
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 Measurements Intervals [place] Rate: 100 P: 77 ID: [id number] QRS: 50 QRSD: 93 T: 91 QT: 332 QTc: 429 Interpretive Statements SINUS TACHYCARDIA WITH FREQUENT SUPRAVENTRICULAR PREMATURE COMPLEXES MODERATE ST DEPRESSION [0.05+ mV ST DEPRESSION] Abnormal ECG Compared to ECG 08/20/2024 15:27:35 ST (T wave) deviation now present Indeterminate axis no longer present Electronically Signed On 12-18-2024 18:10:03 EDT by JAGRUTI DOMINIQUE M.D.
--- NOTE | 2024-12-18 15:34 | ECG_ITS ---
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 Measurements Intervals [place] Rate: 96 P: 73 MT: 150 QRS: 54 QRSD: 98 T: 87 QT: 365 QTc: 463 Interpretive Statements SINUS RHYTHM WITH OCCASIONAL SUPRAVENTRICULAR PREMATURE COMPLEXES [place] ECG Compared to ECG 12/18/2024 14:37:29 Sinus tachycardia no longer present ST (T wave) deviation no longer present Electronically Signed On 12-18-2024 18:10:48 EDT by JAGRUTI DOMINIQUE M.D.
== END 2024-12-18 14:27 | disposition home or self-care (01) ==
PROVIDERS: PCP Internal Medicine; Visit Provider Internal Medicine
DX: R00.0 Tachycardia, unspecified (principal)
CPT/HCPCS: 93005

== ENCOUNTER 2025-01-09 10:36 | Outpatient (RCR) | payer MEDICARE, MEDICAID, SELFPAY ==
[2024-12-26 13:24] VITALS: BP 151/91; PULSE 118; TEMP 36.2; O2SAT 97
[2024-12-26] MEDS: ALPHA IV (13:40)
[2024-12-26] MEDS: PROTEINASE INHIBITOR IV (13:40)
[2025-01-09 14:28] VITALS: BP 136/72; PULSE 104; TEMP 35.5; O2SAT 94
[2025-01-09] MEDS: PROTEINASE INHIBITOR IV (14:45)
[2025-01-09] MEDS: ALPHA IV (14:45)
== END 2025-01-14 23:59 | disposition home or self-care (01) ==
LOC: INF 10:36
PROVIDERS: PCP Internal Medicine; Visit Provider Internal Medicine
DX: E88.01 Alpha-1-antitrypsin deficiency (principal); J43.2 Centrilobular emphysema
CPT/HCPCS: 96365; J0256

== ENCOUNTER 2025-02-05 15:14 | Outpatient (RCR) | payer MEDICARE, MEDICAID, SELFPAY ==
--- OUTSIDE RECORDS SUMMARY | 2024-12-18 10:00 | XMS_ITS ---
Author Organization [facility] in [place] Address [address] [place] [address] Care Team Providers Care Environmental Technician Name Role Phone ShikhaDali Powers Primary Care Provider Ludivina vailable Douglas Pacheco Unavailable [phone] Allergies Allergen (clinical drug ingredient) Drug/Non Drug Allergy documented on EMR Reaction Allergy Type Onset Date Status metformin Metformin diarrhea Drug Allergy Active Reason For Referral Reason Tachycardia, frequen t PACs & PVCs Diagnosis 1 Tachycardia, unspeci fied (R00.0) Referral Organization [facility] [place] Referring Provider First Name Douglas Referring Provider Last Name Tara Referring Provider Speciality Pulmonolog y Referred Provider Calli Devlin Referred Provider Specialty Cardiology General Notes Faisal Ayala 12/18 04:56:55 PM >Referral was taken to Racheal Mclaughlin at [facility] Cardiology.Jamie Riley 12/20/2024 11:19:56 AM >I called and spoke with Vianney at [facility] Cardiology who confirmed the referral was received and states she has left a voicemail for the patient to call the office. Vianney states the patient was previously under [facility] Cardiology care but did not follow up in the past.Jamie Riley 12/27/2024 11:16:15 AM >I called and spoke with Vianney at [facility] Cardiology who states the patient has not returned the call to schedule. I personally called the patient and advised him he needs to return the call to [facility] Cardiology and schedule. Patient verbalized understanding and states he planned on calling today.Jamie Riley 12/27/2024 01:28:07 PM >Patient called and left a voicemail stating he is scheduled with [facility] on 01/24/2025 at 1400., Faisal Ayala 01/24/2025 04:54:17 PM >Consult letter received and scanned to for review. Referral Priority Routine Referral Appointment Date 01/24/2025 REASON FOR VISIT 3m F/U - COPD Medications Medication SIG (Take, Route, Frequency, Duration) Notes Start Date End Date Status Theophylline ER 400 mg 1 tablet Orally B ID for 90 days Active Trelegy Ellipta 100-62.5-25 MCG/ACT INHALE 1 PUFF BY MOUTH EVERY DAY RINSE MOUTH AFTER USE for 90 Active Venlafaxine HCl ER 150 MG 1 tablet with food Orally Once a day Active Prolastin-C 1000 MG/20ML as directed Intravenous Active Sodium Chloride 3 % 3mL Inhalation TID for 30 days Dispense 90 each 12/07/2023 Active Mucinex DM 30-600 MG 1 to 2 tablets PRN chest congestion Orally BID for 90 days Active Omeprazole 20 MG 1 capsule 30 minutes before morning meal Orally Once a day Active Ozempic (0.25 or 0.5 MG/DOSE) 2 MG/3ML as directed Subcutaneous Active Pravastatin Sodium 40 MG 1 tablet Orally Once a day Active predniSONE 20 MG 1 tablet Orally QD f or 90 days Active Metoprolol Succinate ER 25 MG 1 tablet Orally Once a day Active Ipratropium-Albuterol 0.5-2.5 (3) MG/3ML 3mL Inhalation QID for 30 days Dispense 120 each Active Jardiance 25 MG TAKE 1 TABLET BY BEVERLY DAILY Oral for 30 Days Active Lisinopril 5 MG 1 tablet Orally Once a day Active HYDROcodone-Acetaminophen 5-325 MG 1 tablet as needed Orally every 6 hrs Active ARIPiprazole 10 MG 1 tablet Orally Once a day Active Cyclobenzaprine HCl 5 MG 1 tablet at bed time as needed Orally Once a day Active dilTIAZem HCl ER 240 MG 1 capsule Orally Once a day Active Furosemide 40 MG 1 tablet Orally Once a day Active glipiZIDE 10 MG 1 tablet 30 minutes before breakfast Orally Once a day Active ALPRAZolam 0.5 MG TAKE 1 TABLET BY BEVERLY TH TWICE DAILY NEEDED Oral for 30 Days Active Albuterol Sulfate HFA 108 (90 Base) MCG/ACT 2 puffs as needed for SOB Inhalation Q4H for 90 days Active Social History Tobacco Use: Social History Observation Description Date Details (start date - stop date) Former Smoker NA - NA Tobacco Control (Standard) Question Answer Notes Tobacco use: Former smoker Additional Findings: Tobacco non-user Ex-very he riya cigarette smoker (40+/day) Vital Signs Weight 234.4 lbs 12/18/2024 Height 71 in 12/18/2024 Blood pressure systolic 166 mm Hg 12/19/19 25 Blood pressure diastolic 84 mm Hg 025 Temperature 96.8 degrees Fahrenheit 12/19/19 25 Heart Rate 120 /min 12/18/2024 Respiratory Rate 22 /min 12/18/2024 BMI 32.69 kg/m2 12/18/2024 Oximetry 94 % 12/18/2024 Procedures Procedure Date Ordered Date Performed Result Body Sit e EKG 12/18/2024 12/18/2024 N/A Encounters Encounter Location Date Provider Diagnosis Pulmonary Medicine [address] [address] 12/18/[address]rilobular emphys lane J43.2 ; Tachycardia, unspecified R00.0 ; 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 Ohtuvayre not covered He asked about Dupixent, but I already checked eosinophils which excluded him as they were 200 (needs to be 300 or higher). Additionaly, he is on theophylline, Trelegy 100, and Prolastin (AAT augmentation therapy). Participated in pulmonary rehab. Was evaluated in [place] for endobronchial valves & lung transplant ~2022, but he was deemed to be in too good a shape at that time. Clinical status has declined. He was instructed to return to [place] for re-evaluation, but he has not gone - he was reminded to contact their office to schedule an appointment as he is already established there. 12/18/2024 Tachycardia, unspecified (ICD-10 - R00.0) Tachycardic and irregular on examination. Concern for afib - he has severe COPD. Ordered a STAT EKG through [facility] (was done in my presence as I share space with the cardiopulmonary department). I personally reviewed the EKG. There are frequent PACs and less PVCs noted. Underlying rhythm appears sinus - no afib on EKG I saw. Even though underlying rhythm is sinus, with the frequent PACs, there may be discordance with filling & ejection contributing to dyspnea. Discussed that albuterol overuse can also contribute to tachycardia and ectopy. He saw [facility] Dr. Devlin ~7 years ago. I recommended re-evaluation by cardiology as I am limited on what I am able to do for him currently. 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 He asked about a port placement because sometimes he requires several attempts to cannulate the vein for Prolastin infusion. I recommended against this for several reasons. First, there have been no failed attempts. Second, he would need to have sedation for the port to be placed - he is at high risk for perioperative respiratory failure given his very severe pulmonary status. If he begins having significant issues with access, then I would recommend a port. 12/18/2024 Chronic respiratory failure with hypoxia (ICD-10 - J96.11) Ucqk-is-fblx encounter performed with the patient to document continued need for supplemental oxygen (O2). -Flow & directions: ~3-4L/min ATC-Patient voices adherence to recommended usage: Yes-Symptom control on O2: Improvement in dyspnea-Counseled patient not begin, restart, or continue smoking, around the O2 due to risk of fire which could result in damage to the O2 tanks & lines, smoke inhalation and flame damage to the airway, significant mojica, potential , property damage, and potential harm & to bystanders. Additionally, counseled it is not hayes to begin, restart, or continue smoking given the underlying pulmonary disease that led to the point of requiring O2.-Recommendations : His machine is . Continue O2 ATC 12/18/2024 RANCHO (obstructive sleep apnea) (ICD-10 - G47.33) Conf-gc-rtkm encounter performed with the patient to document continued need for PAP therapy. -Current DME: [facility]-Halmf-xynjq 02/23/2023 AHI 20; BiPAP titration: 30/04 -Compliance was reviewed from 02/11/2024 - 03/11/2024-Total days used: 30 (100%)-Total of all days >4 hours of use: 29/ (97%)-Current model, mode, & pressure: AirCurve 10 VAuto-Residual AHI: 0.3-Air leak (95th percentile): 39.6L/min-Mask/harn ess fitting: Has a leak from the anderson-Sleep quality: Makes me sleep really good. -Daytime hypersomnolence: Decreased with PAP use-Recommendations : Continues to have excellent compliance and voices no issues.-Note: This fpjp-ll-ahqa visit comes with my authorization that the patient's DME may request to renew, reorder, and/or replace tubing, supplies, mask, and/or PAP device (if applicable). 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 Monitor for hyperglycemia. 12/18/2024 Obesity (ICD-10 - E66.9) Weight loss advised. 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 12/18/2024 shelter (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 (ICD-10 - Z79.51) Patient was counseled to rinse & gargle with water after inhaled corticosteroid use. 12/18/2024 History of tobacco abuse (ICD-10 - Z87.891) 3ppd x 40 years (120 pack-years), quit 2012 3ppd x 40 years (120 pack-years), quit 2012 LDCT due 12/2024. Plan Of Treatment Treatment Notes Assessment Notes Centrilobular emphysema Very severe COPD. O2- and prednisone-dependent. Ohtuvayre not covered He asked about Dupixent, but I already checked eosinophils which excluded him as they were 200 (needs to be 300 or higher). Additionaly, he is on theophylline, Trelegy 100, and Prolastin (AAT augmentation therapy). Participated in pulmonary rehab. Was evaluated in [place] for endobronchial valves & lung transplant ~2022, but he was deemed to be in too good a shape at that time. Clinical status has declined. He was instructed to return to [place] for re-evaluation, but he has not gone - he was reminded to contact their office to schedule an appointment as he is already established there. Tachycardia, unspecified Tachycardic and irregular on examination. Concern for afib - he has severe COPD. Ordered a STAT EKG through [facility] (was done in my presence as I share space with the cardiopulmonary department). I personally reviewed the EKG. There are frequent PACs and less PVCs noted. Underlying rhythm appears sinus - no afib on EKG I saw. Even though underlying rhythm is sinus, with the frequent PACs, there may be discordance with filling & ejection contributing to dyspnea. Discussed that albuterol overuse can also contribute to tachycardia and ectopy. He saw [facility] Dr. Devlin ~7 years ago. I recommended re-evaluation by cardiology as I am limited on what I am able to do for him currently. Kizgm-8-swabltnwles deficiency He is to continue with Prolastin. He asked about a port placement because sometimes he requires several attempts to cannulate the vein for Prolastin infusion. I recommended against this for several reasons. First, there have been no failed attempts. Second, he would need to have sedation for the port to be placed - he is at high risk for perioperative respiratory failure given his very severe pulmonary status. If he begins having significant issues with access, then I would recommend a port. Chronic respiratory failure with hypoxia Sxdi-kq-ofln encounter performed with the patient to document continued need for supplemental oxygen (O2). -Flow & directions: ~3-4L/min ATC-Patient voices adherence to recommended usage: Yes-Symptom control on O2: Improvement in dyspnea-Counseled patient not begin, restart, or continue smoking, around the O2 due to risk of fire which could result in damage to the O2 tanks & lines, smoke inhalation and flame damage to the airway, significant mojica, potential , property damage, and potential harm & to bystanders. Additionally, counseled it is not hayes to begin, restart, or continue smoking given the underlying pulmonary disease that led to the point of requiring O2.-Recommendations: His machine is . Continue O2 ATC RANCHO (obstructive sleep apnea) Oxtx-xe-ydjy encounter performed with the patient to document continued need for PAP therapy. -Current DME: [facility]Opiow-tdswu 02/23/2023 AHI 20; BiPAP titration: 30/04 -Compliance was reviewed from 02/11/2024 - 03/11/2024-Total days used: (100%)-Total of all days >4 hours of use: (97%)-Current model, mode, & pressure: AirCurve 10 VAuto-Residual AHI: 0.3-Air leak (95th percentile): 39.6L/min-Mask/harness fitting: Has a leak from the anderson-Sleep quality: Makes me sleep really good. -Daytime hypersomnolence: Decreased with PAP use-Recommendations: Continues to have excellent compliance and voices no issues.-Note: This immp-fk-pfts visit comes with my authorization that the patient's DME may request to renew, reorder, and/or replace tubing, supplies, mask, and/or PAP device (if applicable). Diabetes mellitus type 2, controlled Patient is steroid-dependent COPD at this point. Monitor for hyperglycemia. Obesity Weight loss advised. 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 intermediate teacher (current) use of i nhaled steroids Patient was counseled to rinse & gargle with water after inhaled corticosteroid use. History of tobacco abuse 3ppd x 40 years (120 pack-years), quit 2013 LDCT due 12/2024. Referrals Referral Date Details 12/18/2024 12/18/2024, Tachycar alex, frequent PACs & PVCs, Ehab [place] Next Appt Details Follow Up: 3 Months, Reason: COPD, RANCHO Procedure Notes * Category Sub-Category Detail Notes PFT Data: 11/14/2023-FEV1/F VC: 33%-FEV1: 33%-FVC: 75%-OBI37-55%: 10%-Bronchodilator response: None-RV: 165%-T%-TOMA%03/24/2021-FEV1/FVC: 37%-FEV1: 42%-FVC: 87%-Bronchodilator response: None administered-RV: 94%-T%-DLCO: 68%12/27/2019-FEV1/FVC: 42%-FEV1: 34%-FVC: 61%-Bronchodilator response: Partial bronchodilator response-RV: 179%-T%-DLCO: 57%05/24/2017-FEV1/FVC: 43%-FEV1: 31%-FVC: 56%-Bronchodilator response: Positive in FEV1 & FVC-RV: 184%-T%-DLCO: 48%06/09/2015-FEV1/FVC: 43%-FEV1: 30%-FVC: 54%-Bronchodilator response: Positive in FEV1 & FVC-RV: 193%-T%-DLCO: 58%10/30/2013-FEV1/FVC: 46%-FEV1: 31%-FVC: 52%-Bronchodilator response: Positive in FEV1 & FVC-RV: 187%-T%-DLCO: 49% Alpha-1 Antitrypsin Genotype: MZ Confirmatory Date: 11/16/2018 Level: 20.9mcM (113.6mg/dL) Progress Notes * CONCETTA Ramiro ADOB: 0 (64 yo M)Acc No.[id number]:12/18/2024 Follow Up Patient: Ramiro VILLAGOMEZ Provider: Babak Pacheco DO :1960 A ge:64 Y S ex:Male Date:12/18/2024 Address:[address] [place], [place] [id number] Pcp:BIANKA Turner Check In:01:55 PM ESTCheck O ut:02:46 PM EST Subjective: * Chief Complaints: * 3 m F/U - COPD * HPI: E pworth Sleepiness Scale: Patient tells me he has good days and bad days. Yesterday was a bad day. He couldn't walk into [employer] without stopping to breathe. He did 3 brnl-nc-mixt-to-back albuterol treatments. But today, the weather is warmer, and his breathing is improved. He remains on Trelegy 100 and theophylline. He is still using his POC @ 3L/min (the motor is very loud). Overall, he said his breathing is doing worse. He remains on his BiPAP and is doing well with it. Has good compliance. Moderate air leak, but AHI is excellent at 0.3. He cannot sleep without it. MA Intake Comments:. Matthews Sleepiness Scale C charlene of dozing while sitting and reading:?0 - Never C charlene of dozing while watching TV: 0 - Never C charlene of dozing while sitting in a public place: 0 - Never C charlene of dozing as a passenger in a car for an hour without a break: 0 - Never C charlene of dozing while lying down in the afternoon to rest: 3 - High Chance C charlene of dozing while sitting and talking to someone: 0 - Never C charlene of dozing while sitting quietly after lunch: 0 - Never C charlene of dozing in a stopped car for a few minutes in traffic: 0 - Never T OTAL SCORE: 3 Patient presents for a follow up for COPD. Patient is currently on 3L O2/PAP at home. DME:[facility]. Patient complains of SOB. Patient states his breathing is unchanged since his last visit. Patient has good and bad days with his breathing. Patient is using Trelegy, Theophylline, Prednisone and Nebulizer daily. Patient reports using his rescue inhaler 2-3 times per day. Patient denies any complaints or conerns with his PAP machine. Patient reports great benefit. Patient is receiving Prolastin Infusions at [facility] Infusion Center. * ROS: G eneral/Constitutional: Fatigue a dmits. F ever or sweats d enies. C hange of appetite d enies. C hills d enies.?Weight Change d enies. H EENT: Dry mouth d enies. S ore throat d enies. O ral Ulcers d enies. P ost Nasal Drip D enies. C ongestion D enies. H oarseness?Denies. C ardiovascular: Tachycardia a dmits. C hest pain d enies. P alpitations d enies. R espiratory: Chest tightness d enies. P leurisy D enies. D yspnea w ith activity and ambulation. C ough d aily productive cough. H emoptysis d enies. W heezing d enies. G astrointestinal: Acid Reflux/GERD/Heartburn d enies. D ysphagia d enies. M usculoskeletal: Arthralgias/joint pain D enies. S kin: Easy bruising d enies. N eurologic: Seizures d enies. T remor d enies. H ematology: Abnormal Bleeding d enies. P sychiatric: Anxiety d enies. 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 Modified On:07/19/2023U Status:confirmed J43.[address] Modified On:07/26/2023 Status:confirmed J96.11 Chronic respiratory failure with hypoxia Modified On:07/19/2023U Status:confirmed Z79.51 shelter (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 Modified On:07/19/2023U Status:confirmed E66.9 Obesity Modified On:07/19/2023U Status:confirmed E11.9 Diabetes mellitus ty pe 2, controlled Modified On:07/19/2023 Status:confirmed Z87.891 History of tobacco a buse Modified On:04/20/2023U Status:confirmed Z86.16 History of COVID-19 Modified On:04/20/2023U Status:confirmed F41.1 CANDACE (generalized anx iety disorder) Modified On:01/04/2023U Status:confirmed G47.33 RANCHO (obstructive sle ep apnea) Modified On:07/19/2023U Status:confirmed Z68.37 Body mass index [BMI ] 37.0-37.9, adult Modified On:04/20/2023U Status:confirmed Z79.52 shelter (current) use of systemic steroids Modified On:07/19/2023 Status:confirmed Z68.35 Body mass index [BMI ] 35.0-35.9, adult Modified On:07/19/2023 Status:confirmed J44.1 COPD exacerbation Modified On:09/09/2023 Status:confirmed I10 Chronic hypertension Modified On:09/09/2023 Status:confirmed E11.9 Diabetes mellitus Modified On:09/09/2023 Status:confirmed Z79.4 Long-term insulin us e Modified On:09/09/2023 Status:confirmed J44.9 Chronic obstructive pulmonary disease, unspecified Modified On:11/18/2023 Status:confirmed D72.829 Elevated WBCs Modified On:05/31/2024 Status:confirmed I10 BP (high blood press ure) Modified On:05/31/2024 Status:confirmed * Medical History: * Surgical History: o ral surgery * Hospitalization/Major Diagno stic Procedure: C OPD Exacerbation-TBH 3COPD Exacerbation-TBH [id number] ER 4COPD Exacerbation-TBH 04/28/2024 * Family History: F ather: emphysema. M other: COPD, Hypercholesterolemia,CHF, diagnosed with Diabetes mellitus without mention of complication, type II or unspecified type, not stated as uncontrolled, Unspecified polyarthropathy or polyarthritis, pelvic region and thigh. M adriana uncle: stroke, diagnosed with Diabetes mellitus without mention of complication, type II or unspecified type, not stated as uncontrolled, Unspecified heart disease. M adriana Grandmother: diagnosed with Diabetes mellitus without mention of complication, type II or unspecified type, not stated as uncontrolled. * Social History: T obacco Use: T obacco Control (Standard) T obacco use: F ormer smoker A dditional Findings: Tobacco non-user E x-very heavy cigarette smoker (40+/day) Electronic Cigarette use C urrent user N o LM: Additional Tobacco Questions N umber of Years Pt Smoked: 4 0 N umber of Packs per Day: 3 When did you stop smokin. M iscellaneous: C affeine: none. 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 Y es M arijuana? Y es Occasional T ype: E val D oes the Patient have a History of Drug Abuse in the Past? Y es Caffeine I ntake: n one Do you drink alcohol?: Yes, Socially. Do you smoke marijuana?: Denies. * Medications: T akingAlbuterol Sulfate HFA 108 (90 Base) MCG/ACT Aerosol Solution 2 puffs as needed for SOB Inhalation Q4H ALPRAZolam 0.5 MG Tablet TAKE 1 TABLET BY MOUTH TWICE DAILY NEEDED Oral ARIPiprazole 10 MG Tablet 1 tablet Orally Once a day Cyclobenzaprine HCl 5 MG Tablet 1 tablet at bedtime as needed Orally Once a day dilTIAZem HCl ER 240 MG Capsule Extended Release 24 Hour 1 capsule Orally Once a day Furosemide 40 MG Tablet 1 tablet Orally Once a day glipiZIDE 10 MG Tablet 1 tablet 30 minutes before breakfast Orally Once a day HYDROcodone-Acetaminophen 5-325 MG Tablet 1 tablet as needed Orally every 6 hrs Ipratropium-Albuterol 0.5-2.5 (3) MG/3ML Solution 3mL Inhalation QID Dispense 120 eachJardiance(Empagliflozin) 25 MG Tablet TAKE 1 TABLET BY MOUTH DAILY Oral Lisinopril 5 MG Tablet 1 tablet Orally Once a day Metoprolol Succinate ER 25 MG Tablet Extended Release 24 Hour 1 tablet Orally Once a day Mucinex DM(DM-guaiFENesin ER) 30-600 MG Tablet Extended Release 12 Hour 1 to 2 tablets PRN chest congestion Orally BID Omeprazole 20 MG Capsule Delayed Release 1 capsule 30 minutes before morning meal Orally Once a day Ozempic (0.25 or 0.5 MG/DOSE)(Semaglutide(0.25 or 0.5MG/DOS)) 2 MG/3ML Solution Pen-injector as directed Subcutaneous Pravastatin Sodium 40 MG Tablet 1 tablet Orally Once a day predniSONE 20 MG Tablet 1 tablet Orally QD Prolastin-C(Alpha1-Proteinase Inhibitor) 1000 MG/20ML Solution as directed Intravenous Sodium Chloride 3 % Nebulization Solution 3mL Inhalation TID Dispense 90 eachTheophylline ER 400 mg Tablet Extended Release 24 Hour 1 tablet Orally BID Trelegy Ellipta(Arcocwkggrb-Ftoaqwaxu-Gmjvjr) 100-62.5-25 MCG/ACT Aerosol Powder Breath Activated INHALE 1 PUFF BY MOUTH EVERY DAY RINSE MOUTH AFTER USE Venlafaxine HCl ER 150 MG Tablet Extended Release 24 Hour 1 tablet with food Orally Once a day Medication List reviewed and reconciled with the patientTaking Albuterol Sulfate HFA 108 (90 Base) MCG/ACT Aerosol Solution 2 puffs as needed for SOB Inhalation Q4H Taking ALPRAZolam 0.5 MG Tablet TAKE 1 TABLET BY MOUTH TWICE DAILY NEEDED Oral Taking ARIPiprazole 10 MG Tablet 1 tablet Orally Once a day Taking Cyclobenzaprine HCl 5 MG Tablet 1 tablet at bedtime as needed Orally Once a day Taking dilTIAZem HCl ER 240 MG Capsule Extended Release 24 Hour 1 capsule Orally Once a day Taking Furosemide 40 MG Tablet 1 tablet Orally Once a day Taking glipiZIDE 10 MG Tablet 1 tablet 30 minutes before breakfast Orally Once a day Taking HYDROcodone-Acetaminophen 5-325 MG Tablet 1 tablet as needed Orally every 6 hrs Taking Ipratropium-Albuterol 0.5-2.5 (3) MG/3ML Solution 3mL Inhalation QID Dispense 120 eachTaking Jardiance(Empagliflozin) 25 MG Tablet TAKE 1 TABLET BY MOUTH DAILY Oral Taking Lisinopril 5 MG Tablet 1 tablet Orally Once a day Taking Metoprolol Succinate ER 25 MG Tablet Extended Release 24 Hour 1 tablet Orally Once a day Taking Mucinex DM(DM-guaiFENesin ER) 30-600 MG Tablet Extended Release 12 Hour 1 to 2 tablets PRN chest congestion Orally BID Taking Omeprazole 20 MG Capsule Delayed Release 1 capsule 30 minutes before morning meal Orally Once a day Taking Ozempic (0.25 or 0.5 MG/DOSE)(Semaglutide(0.25 or 0.5MG/DOS)) 2 MG/3ML Solution Pen- injector as directed Subcutaneous Taking Pravastatin Sodium 40 MG Tablet 1 tablet Orally Once a day Taking predniSONE 20 MG Tablet 1 tablet Orally QD Taking Prolastin-C(Alpha1-Proteinase Inhibitor) 1000 MG/20ML Solution as directed Intravenous Taking Sodium Chloride 3 % Nebulization Solution 3mL Inhalation TID Dispense 90 eachTaking Theophylline ER 400 mg Tablet Extended Release 24 Hour 1 tablet Orally BID Taking Trelegy Ellipta(Bosulochqtr-Ubvwdrpaq-Btalfr) 100-62.5-25 MCG/ACT Aerosol Powder Breath Activated INHALE 1 PUFF BY MOUTH EVERY DAY RINSE MOUTH AFTER USE Taking Venlafaxine HCl ER 150 MG Tablet Extended Release 24 Hour 1 tablet with food Orally Once a day Medication List reviewed and reconciled with the patient * Allergies: M etformin: diarrhea - Side Effects - Criticality [place]own[place][Allergies Verified] Objective: * Vitals: W t:234.4lbs, Ht: 71 in, BP:sittin/84mm Hg, Temp:Forehead:96.8F, HR: 111 /min,120/min, RR:22/min, BMI:32.69Index, Oxygen sat %: Oxygen 3l:92 %,Oxygen 3l:94%, Ht-cm: 180.34 cm, Wt-k.32 kg. * Examination: E xam: GENERAL APPEARANCE: C hronically ill. Obese. Skin A xillary striae. buffalo hump . Mouth P ink and moist. U pper and lower dentures. No candidiasis. Oropharynx/Tongue M allampati Class III , Macroglossia.? Trachea M idline. Chest I ncreased A-P Diameter. Respiratory M ild resting dyspnea. Auscultation V vinod diminished breath sounds, faint expiratory wheeze most prominent in right upper posterior thorax. Cardiac T achycardic with an irregular rhythm. Gastrointestinal M ild central adiposity. Vascular N o edema. Musculoskeletal N ormal posture. Neurological F ocal, intact. Psychiatric A lert and oriented x3. Mentation/Cognition N ormal. Assessment: * Assessment: 1. C entrilobular emphysema - J43.2 (Primary) 2 . T achycardia, unspecified - R00.0 3 . 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 C hronic respiratory failure with hypoxia - J96.11 5 . RANCHO (obstructive sleep apnea) - G47.33 6 . D iabetes mellitus type 2, controlled - E11.9 7 . O besity - E66.9 8 . L lizzie term (current) use of systemic steroids - Z79.52 9 . L lizzie term (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 - Z79.51 1 0. H istory of tobacco abuse - Z87.891 N otes :3ppd x 40 years (120 pack-years), quit 2013 Plan: * Treatment: 2. T achycardia, unspecified P rocedure: EKG (Performed Date - 12/18/2024) Notes: Tachycardic and irregular on examination. Concern for afib - he has severe COPD. Ordered a STAT EKG through [facility] (was done in my presence as I share space with the cardiopulmonary department). I personally reviewed the EKG. There are frequent PACs and less PVCs noted. Underlying rhythm appears sinus - no afib on EKG I saw. Even though underlying rhythm is sinus, with the frequent PACs, there may be discordance with filling & ejection contributing to dyspnea. Discussed that albuterol overuse can also contribute to tachycardia and ectopy. He saw [facility] Dr. Devlin ~7 years ago. I recommended re-evaluation by cardiology as I am limited on what I am able to do for him currently. Referral To:[facility] Reason:Tachycardia, frequent PACs & PVCs 3. A mvjg-4-ymgcjjnruoc deficiency Notes: He is to continue with Prolastin. He asked about a port placement because sometimes he requires several attempts to cannulate the vein for Prolastin infusion. I recommended against this for several reasons. First, there have been no failed attempts. Second, he would need to have sedation for the port to be placed - he is at high risk for perioperative respiratory failure given his very severe pulmonary status. If he begins having significant issues with access, then I would recommend a port.? 4. C hronic respiratory failure with hypoxia Notes: Jpjv-bz-emwj encounter performed with the patient to document continued need for supplemental oxygen (O2). -Flow & directions: ~3-4L/min ATC-Patient voices adherence to recommended usage: Yes-Symptom control on O2: Improvement in dyspnea-Counseled patient not begin, restart, or continue smoking, around the O2 due to risk of fire which could result in damage to the O2 tanks & lines, smoke inhalation and flame damage to the airway, significant mojica, potential , property damage, and potential harm & to bystanders. Additionally, counseled it is not hayes to begin, restart, or continue smoking given the underlying pulmonary disease that led to the point of requiring O2.-Recommendations: His machine is . Continue O2 ATC 5. O SA (obstructive sleep apnea) Notes: Zuqr-ll-avjy encounter performed with the patient to document continued need for PAP therapy. -Current DME: GFL-Xxjln-jtdej 02/23/2023 AHI 20; BiPAP titration: 30/04 -Compliance was reviewed from 02/11/2024 - 03/11/2024-Total days used: 30/30 (100%)-Total of all days >4 hours of use: 29/ (97%)-Current model, mode, & pressure: AirCurve 10 VAuto-Residual AHI: 0.3-Air leak (95th percentile): 39.6L/min-Mask/harness fitting: Has a leak from the anderson-Sleep quality: Makes me sleep really good. -Daytime hypersomnolence: Decreased with PAP use-Recommendations: Continues to have excellent compliance and voices no issues.-Note: This zyqt-eg-ltns visit comes with my authorization that the patient's DME may request to renew, reorder, and/or replace tubing, supplies, mask, and/or PAP device (if applicable). 6. D iabetes mellitus type 2, controlled Notes: Patient is steroid-dependent COPD at this point. Monitor for hyperglycemia. 7. O besity Notes: Weight loss advised. 8. 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 9. L lizzie term (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 Notes: Patient was counseled to rinse & gargle with water after inhaled corticosteroid use. 10. H istory of tobacco abuse Notes: 3ppd x 40 years (120 pack-years), quit 2012 LDCT due 12/2024. * Procedures: A lpha-1 Antitrypsin: Genotype: M Z. Confirmatory Date: . Level: 2 0.9mcM (113.6mg/dL). P FT: Data: 11/14/2023 -FEV1/FVC: 33% -FEV1: 33% -FVC: 75% -SVP00-96%: 10% -Bronchodilator response: None -RV: 165% -T% -TOMA% 03/24/2021 -FEV1/FVC: 37% -FEV1: 42% -FVC: 87% -Bronchodilator response: None administered -RV: 94% -T% -DLCO: 68% 12/27/2019 -FEV1/FVC: 42% -FEV1: 34% -FVC: 61% -Bronchodilator response: Partial bronchodilator response -RV: 179% -T% -DLCO: 57% 05/24/2017 -FEV1/FVC: 43% -FEV1: 31% -FVC: 56% -Bronchodilator response: Positive in FEV1 & FVC -RV: 184% -T% -DLCO: 48% 06/09/2015 -FEV1/FVC: 43% -FEV1: 30% -FVC: 54% -Bronchodilator response: Positive in FEV1 & FVC -RV: 193% -T% -DLCO: 58% 10/30/2013 -FEV1/FVC: 46% -FEV1: 31% -FVC: 52% -Bronchodilator response: Positive in FEV1 & FVC -RV: 187% -T% -DLCO: 49%. * Procedure Codes: * Preventive Medicine: COVID Vaccination: H as patient had COVID Vaccination? COVID Vaccination N o Patient refused Immunization Status: P neumovacc P revnar 13-05/10/2018. I nfluenza 1 . Screenings/Counseling: F ALL RISK SCREENING Fall Risk Assessment: O ne fall without injury in the past year Are you afraid of falling? N o T OBAC[place] ACTION PLAN Patient counselled on the dangers of tobacco use and urged to quit. 0 11/20/2024 Former Educational materials on smoking cessation provided 0 11/20/2024 Former B [place] ACTION PLAN Above Normal BMI Follow-up D ietary management education, guidance, and counseling * Disposition & Communication: A ttestation: Over 40 minutes spent today with patient including obtaining the EKG and reviewing them personally along with the patient. * Follow Up: 3 Months (Reason: COPD, RANCHO) * * Sign off status: Completed Visit Status: C HK (Check Out) true * Provider: Babak Pacheco DO Date: 0 12/18/2024 Generated for Printi ng/Faxing/eTransmitting on: 0 02/05/2025 03:18 PM EDT History and Physical Notes * HPI (History of Present Illness) Category Sub-Category Detail Notes Category Not es Matthews Sleepiness Scale Matthews Sleepiness Scale Chance of dozing while sitting and reading:: 0 - Never Patient presents for a follow up for COPD. Patient is currently on 3L O2/PAP at home. DME:[facility]. Patient complains of SOB. Patient states his breathing is unchanged since his last visit. Patient has good and bad days with his breathing. Patient is using Trelegy, Theophylline, Prednisone and Nebulizer daily. Patient reports using his rescue inhaler 2-3 times per day. Patient denies any complaints or conerns with his PAP machine. Patient reports great benefit. Patient is receiving Prolastin Infusions at [facility]. Chance of dozing while watching TV:: 0 - Never Chance of dozing while sitting in a publ ic place:: 0 - Never Chance of dozing as a passen eduardo in a car for an hour without a break:: 0 - Never Chance of dozing while lying down in the afternoon to rest:: 3 - High Chance Chance of dozing while sitting and talki ng to someone:: 0 - Never Chance of dozing while sitting quietly a fter lunch:: 0 - Never Chance of dozing in a stopped car for a few minutes in traffic:: 0 - Never TOTAL SCORE:: 3 Examination Category Sub-Category Detail Notes Category Not es Exam GENERAL APPEARANCE: Chronically ill. Obes e Skin Axillary striae. bu ffalo hump Mouth M[place]ulley and moist. Uppe r and lower dentures. No candidiasis Trachea Midline Chest Increased A-P Diamet er Ribs Respiratory Mild resting dyspnea Auscultation Very diminished felicia th sounds, faint expiratory wheeze most prominent in right upper posterior thorax Percussion Egophony Bronchophony Fremitus Whispered pectoriloquy Cardiac Tachycardic with an irregular rhythm Gastrointestinal Mild central adiposi ty Vascular No edema Musculoskeletal Normal posture Neurological Focal, intact Psychiatric Alert and oriented x 3 Mentation/Cognition Normal Oropharynx/Tongue Mallampati Class III , Macroglossia Consultation Request Notes Referral Date Referring Provider Referred Provider Not es 12/18/2024 Douglas Pacheco, Ehab Tachycardia, frequent PACs & PVCs
--- OUTSIDE RECORDS SUMMARY | 2024-12-18 10:00 | XMS_ITS ---
Author Organization [facility] in [place] Address [address] [place] [address] Care Team Providers Care Production Operations Engineer Name Role Phone ShikhaDali Powers Primary Care Provider Ludivina vailable Douglas Pacheco Unavailable [phone] Allergies Allergen (clinical drug ingredient) Drug/Non Drug Allergy documented on EMR Reaction Allergy Type Onset Date Status metformin Metformin diarrhea Drug Allergy Active Reason For Referral Reason Tachycardia, frequen t PACs & PVCs Diagnosis 1 Tachycardia, unspeci fied (R00.0) Referral Organization [facility] Referring Provider First Name Douglas Referring Provider Last Name Tara Referring Provider Speciality Pulmonolog y Referred Provider Calli Devlin Referred Provider Specialty Cardiology General Notes Faisal Ayala 12/18 04:56:55 PM >Referral was taken to Racheal Mclaughlin at [facility].Jamie Riley 12/20/2024 11:19:56 AM >I called and spoke with Vianney at [facility] who confirmed the referral was received and states she has left a voicemail for the patient to call the office. Vianney states the patient was previously under [facility] care but did not follow up in the past.Jamie Riley 12/27/2024 11:16:15 AM >I called and spoke with Vianney at [facility] who states the patient has not returned the call to schedule. I personally called the patient and advised him he needs to return the call to [facility] and schedule. Patient verbalized understanding and states he planned on calling today.Jamie Riley 12/27/2024 01:28:07 PM >Patient called and left a voicemail stating he is scheduled with [facility] on 01/24/2025 at 1400., Faisal Ayala [...] ALPRAZolam 0.5 MG TAKE 1 TABLET BY EBVERLY TH TWICE DAILY NEEDED Oral for 30 [...] he riya cigarette smoker (40+/day) Vital Signs Temperature 96.8 degrees Fahrenheit 12/19/19 25 Blood pressure systolic 166 mm Hg 12/19/19 25 Blood pressure diastolic 84 mm Hg 025 Heart Rate 120 /min 12/18/2024 Respiratory Rate 22 /min 12/18/2024 Height 71 in 12/18/2024 Weight 234.4 lbs 12/18/2024 BMI 32.69 kg/m2 12/18/2024 Oximetry 94 % 12/18/2024 Procedures Procedure Date Ordered Date Performed Result Body Sit e EKG 12/18/2024 12/18/2024 N/A Encounters Encounter Location Date Provider Diagnosis Pulmonary Medicine [address] [address] 12/18/2024 Douglas [address]ache[address]rilobular emphys lane J43.2 ; Tachycardia, unspecified R00.0 ; Ynlyz-0-tejwrptmyht deficiency E88.01 ; Chronic respiratory failure with hypoxia J96.11 ; RANCHO (obstructive sleep apnea) G47.33 ; Diabetes mellitus type 2, controlled E11.9 ; Obesity E66.9 ; 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 Was evaluated in [facility] for endobronchial valves & lung transplant ~2022, but he was deemed to be in too good a shape at that time. Clinical status has declined. He was instructed to return to [facility] for re-evaluation, but he has not gone - he was reminded to contact their office to schedule an appointment as he is already established there. 12/18/2024 Tachycardia, unspecified (ICD-10 - R00.0) Tachycardic and irregular on examination. Concern for afib - he has severe COPD. Ordered a STAT EKG through [facility] (was done in my presence as I [...] contribute to tachycardia and ectopy. He saw [facility] Dr. Devlin ~7 years ago. I recommended re-evaluation by cardiology as I am limited on what I am able to do for him currently. 12/18/2024 Musmb-7-apcrmbzeu in deficiency (ICD-10 - E88.01) Genotype: MZ [...] respiratory failure with hypoxia (ICD-10 - J96.11) Kpee-cd-qbve encounter performed with the patient to document [...] RANCHO (obstructive sleep apnea) (ICD-10 - G47.33) Kvfp-az-jtbi encounter performed with the patient to document continued need for PAP therapy. -Current DME: IJW-Pblxt-ttfdm 02/23/2023 AHI 20; BiPAP titration: 30/04 -Compliance [...] excellent compliance and voices no issues.-Note: This migo-ma-xwap visit comes with my authorization that the patient's DME may request to renew, reorder, and/or replace tubing, supplies, mask, and/or PAP device (if applicable). 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 Monitor for hyperglycemia. 12/18/2024 Obesity (ICD-10 - E66.9) Weight loss advised. 12/18/2024 nursing home (current) use of systemic steroids (ICD-10 - Z79.52) Discussed adverse effects of director long term care systemic steroids including, but not limited to: increased risk of cataracts, elevated blood sugars/worsening of underlying diabetes mellitus, impaired wound healing, gastrointestinal ulcers, osteoporosis. 12/18/2024 nursing home (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 (ICD-10 - [...] Participated in pulmonary rehab. Was evaluated in [facility] for endobronchial valves & lung transplant ~2022, but he was deemed to be in too good a shape at that time. Clinical status has declined. He was instructed to return to [facility] for re-evaluation, but he has not gone - he was reminded to contact their office to schedule an appointment as he is already established there. Tachycardia, unspecified Tachycardic and irregular on examination. Concern for afib - he has severe COPD. Ordered a STAT EKG through [facility] (was done in my presence as I [...] contribute to tachycardia and ectopy. He saw [facility] Dr. Devlin ~7 years ago. I recommended re-evaluation by cardiology as I am limited on what I am able to do for him currently. Gorai-0-fdcahgiyteu deficiency He is to continue with Prolastin. [...] a port. Chronic respiratory failure with hypoxia Mehh-wt-hfju encounter performed with the patient to document [...] Continue O2 ATC RANCHO (obstructive sleep apnea) Bryw-ac-aiez encounter performed with the patient to document continued need for PAP therapy. -Current DME: UPG-Zksok-quvgu 02/23/2023 AHI 20; BiPAP titration: 30/04 -Compliance [...] excellent compliance and voices no issues.-Note: This ikdw-sk-vxst visit comes with my authorization that the patient's DME may request to renew, reorder, and/or replace tubing, supplies, mask, and/or PAP device (if applicable). Diabetes mellitus type 2, controlled Patient is steroid-dependent COPD at this point. Monitor for hyperglycemia. Obesity Weight loss advised. 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 termite control servicer (current) use of i nhaled steroids Patient [...] Notes PFT Data: 11/14/2023-FEV1/F VC: 33%-FEV1: 33%-FVC: 75%-JDD41-89%: 10%-Bronchodilator response: None-RV: 165%-T%-TOMA%03/24/2021-FEV1/FVC: 37%-FEV1: 42%-FVC: 87%-Bronchodilator [...] CONCETTA Ramiro ADOB: 0 (64 yo M)Acc No.[id number]:12/18/2024 Follow Up Patient: Ramiro VILLAGOMEZ Provider: Babak Pacheco DO :1960 A ge:64 Y S ex:Male Date:12/18/2024 Address:[address] [place], [place] [id number] Pcp:BIANKA Turner Check In:01:55 PM ESTCheck O ut:02:46 PM EST Subjective: * Chief Complaints: * 3 m F/U - COPD * HPI: E pworth Sleepiness Scale: Patient tells me he has good days and bad days. Yesterday was a bad day. He couldn't walk into [employer] without stopping to breathe. He did 3 tmtr-ie-zfnn-to-back albuterol treatments. But today, the weather is [...] cannot sleep without it. MA Intake Comments:. Duffield Sleepiness Scale C charlene of dozing while [...] benefit. Patient is receiving Prolastin Infusions at [facility]. * ROS: G eneral/Constitutional: Fatigue [...] d enies. * Active Problem List E88.01 Wyzur-6-rnhqpdgkxkj deficiency Modified On:07/19/2023U Status:confirmed J43.[address] Modified On:07/26/2023 Status:confirmed J96.11 Chronic respiratory failure with hypoxia Modified On:07/19/2023U Status:confirmed Z79.51 nursing home (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 Modified On:07/19/2023U [...] ] 37.0-37.9, adult Modified On:04/20/2023U Status:confirmed Z79.52 nursing home (current) use of systemic steroids Modified On:07/19/2023 [...] stic Procedure: C OPD Exacerbation-TBH 3COPD Exacerbation-TBH 4022Ctitn-77-CZF ER 4COPD Exacerbation-TBH 04/28/2024 * Family History: [...] 24 Hour 1 tablet Orally BID Trelegy Ellipta(Cpuzzdizrex-Wvytjjsls-Xnutfo) 100-62.5-25 MCG/ACT Aerosol Powder Breath Activated INHALE [...] Hour 1 tablet Orally BID Taking Trelegy Ellipta(Cjkrkfozksi-Nxfwaactq-Zzjmnx) 100-62.5-25 MCG/ACT Aerosol Powder Breath Activated INHALE [...] achycardia, unspecified - R00.0 3 . A tpkv-8-oehfijsdvly deficiency - E88.01 N otes :Genotype: MZ [...] severe COPD. Ordered a STAT EKG through [facility] (was done in my presence as I [...] contribute to tachycardia and ectopy. He saw [facility] Dr. Devlin ~7 years ago. I recommended re-evaluation by cardiology as I am limited on what I am able to do for him currently. Referral To:[facility] Reason:Tachycardia, frequent PACs & PVCs 3. A eymo-3-jnaqcfaqamv deficiency Notes: He is to continue with [...] C hronic respiratory failure with hypoxia Notes: Kzrj-gf-wmce encounter performed with the patient to document [...] 5. O SA (obstructive sleep apnea) Notes: Uwif-dz-ndus encounter performed with the patient to document continued need for PAP therapy. -Current DME: YVZ-Rmtoh-ngliy 02/23/2023 AHI 20; BiPAP titration: 30/04 -Compliance [...] excellent compliance and voices no issues.-Note: This xbfy-ks-vzoc visit comes with my authorization that the patient's DME may request to renew, reorder, and/or replace tubing, supplies, mask, and/or PAP device (if applicable). 6. D iabetes mellitus type 2, controlled Notes: Patient is steroid-dependent COPD at this point. Monitor for hyperglycemia. 7. O besity Notes: Weight loss advised. 8. L lizzie term (current) use of systemic steroids Notes: Discussed adverse effects of director long term care systemic steroids including, but not limited to: [...] 11/14/2023 -FEV1/FVC: 33% -FEV1: 33% -FVC: 75% -FUF56-92%: 10% -Bronchodilator response: None -RV: 165% -T% [...] smoking cessation provided 0 11/20/2024 Former B [place] ACTION PLAN Above Normal BMI Follow-up D ietary management education, guidance, and counseling * Disposition & Communication: A ttestation: Over 40 minutes spent today with patient including obtaining the EKG and reviewing them personally along with the patient. * Follow Up: 3 Months (Reason: COPD, RANCHO) * * Sign off status: Completed Visit Status: C HK (Check Out) true * Provider: Babka Pacheco DO Date: 0 12/18/2024 Generated for Printi ng/Faxing/eTransmitting on: 0 02/03/2025 07:43 AM EDT History and Physical Notes * HPI (History of Present Illness) Category Sub-Category Detail Notes Category Not es Duffield Sleepiness Scale Duffield Sleepiness Scale Chance of dozing while sitting [...] benefit. Patient is receiving Prolastin Infusions at [facility]. Chance of dozing while watching [...] Skin Axillary striae. bu ffalo hump Mouth [place] and moist. Uppe r and lower dentures. [...]
--- OUTSIDE RECORDS SUMMARY | 2024-12-19 11:46 | XMS_ITS ---
Author Organization [facility] [place] Address [address] [place] [address] Care Team Providers Care Quality Control Lab Tech Name Role Phone ShikhaDali Powers Primary Care Provider Ludivina vailaDouglas Cruz Unavailable [phone] REASON FOR VISIT Electric Letter Encounters Encounter Location Date Provider Diagnosis [facility] [address] [place] [address] 12/19/2024 Douglas Pacheco Plan Of Treatment No Information Progress Notes * Ramiro HALLMAN ADOB: 0 (64 yo M)Acc No.[id number]:12/19/2024 Patient: Ramiro VILLAGOMEZ :1960 A ge:64 Y S ex:Male Address:[address] [place] [address], [id number] * true * Date: Generated for Allyson antony/Missy/eTransmitting on: 0 02/03/2025 07:44 AM EDT
--- OUTSIDE RECORDS SUMMARY | 2024-12-19 11:46 | XMS_ITS ---
Author Organization The [facility] in [place] Address [address] [place] [address] Care Team Providers Care House Principal Name Role Phone ShikhaDali Powers Primary Care Provider Ludivina vailaDouglas Cruz Unavailable [phone] REASON FOR VISIT Electric Letter Encounters Encounter Location Date Provider Diagnosis Pulmonary Medicine [place] [address] [place] [address] 12/19/2024 Douglas Pacheco Plan Of Treatment No Information Progress Notes * Ramiro HALLMAN ADOB: 0 (64 yo M)Acc No.[id number]:12/19/2024 Patient: Ramiro VILLAGOMEZ :1960 A ge:64 Y S ex:Male Address:[address] [place] [address], [phone] * true * Date: Generated for Allyson antony/Missy/eTransmitting on: 0 02/05/2025 03:19 PM EDT
[2025-01-23 13:40] VITALS: BP 95/42; PULSE 98; TEMP 35.9; O2SAT 95
[2025-01-23] MEDS: PROTEINASE INHIBITOR IV (13:56)
[2025-01-23] MEDS: ALPHA IV (13:56)
--- OUTSIDE RECORDS SUMMARY | 2025-01-24 14:00 | XMS_ITS | Encounter Summary ---
Author Organization The [facility] Address [address] [place] [address] Care Team Providers Care Pearl Glue Operator Name Role Phone Zayra Peterson FRONT DESK PERSON-C Primary Care Provider [phone] Encounter Details Date Type Department Care Team (Late st Contact Info) Description 01/24/2025 2:00 PM EDT Office Visit [facility] at [facility] [address] [place] [address] Calli Devlin MD [address] [facility] [address] [facility] [place] [address] Chronic respiratory failure with hypoxia (CMS/HCC) (Primary Dx); Rbiew-7-zypomxlqiig deficiency (CMS/HCC); Essential hypertension; FDC current use of inhaled steroid; SVT (supraventricular tachycardia); Non-ischemic cardiomyopathy (CMS/HCC) Social History Tobacco Use Types Packs/Day Years Used Date Smoking Tobacco: Former Cigarettes Smokeless Tobacco: Never Tobacco Cessation:Counseling Given: Not Answered Alcohol Use Standard Drinks/Week Comments Not Currently 0 (1 standard drink = 0.6 oz pur e alcohol) Sex and Gender Information Value Date Recorded Sex Assigned at Not on file Legal Sex Male 10:32 PM EDT Gender Identity Not on file Sexual Orientation Not on file documented as of this encounter Last Filed Vital Signs Vital Sign Reading Time Taken Comments Blood Pressure 156/88 01/24/2025 2:17 PM EDT Pulse 84 01/24/2025 2:17 PM EDT Temperature - - Respiratory Rate - - Oxygen Saturation 93% 01/24/2025 2:17 PM EDT on 3L O2 Inhaled Oxygen Concentration - - Weight 107 kg (235 lb) 01/24/2025 2:17 PM EDT Height 175.3 cm (5' 9 ) 01/24/2025 2:17 PM EDT Body Mass Index 34.7 01/24/2025 2:17 PM EDT documented in this encounter Progress Notes * Calli Devlin MD - 01/24/2025 2:00 PM EDT Images from the original note were not included. [facility] Cardiology Clinic Note Chief Complaint: New patient here to re-establish care. Ref from Dr. Pachceo for tachycardia and frequent PVC's/PAC's. Had 2 EKG's last month. He is not on any beta blockers or antihypertensives. states his BP yesterday was 80/54. Patient denies lightheadedness/dizziness and syncope. Says he gets chest aches once in awhile but attributes those to his lungs. HPI: Ramiro Hallman is a 64 y.o. male with a history of nonischemic cardiomyopathy who I have not seen for about 5 years He has no documented coronary artery disease and had a cardiac catheterization in 2019 He has severe pulmonary disorders including alpha 1 antitrypsin deficiency, centrilobular emphysema, oxygen dependent respiratory failure and uses oxygen amgfqg-gnw-cygwx. He also uses inhalers multiple times a day. He was sent to see me as an EKG showed frequent premature supraventricular complexes and ST depressions. The patient denies anginal chest pain. His shortness of breath is about the same. He may need to beevaluated for lung transplant. He is actually unaware of any palpitations, he has had no significant lightheadedness, dizziness orsyncope. He has obstructive sleep apnea and sleeps with a CPAP mask. He denies paroxysmal external dyspnea. He has had no significant lower extremity edema. Cardiology ROS: Review of Systems Cardiovascular: Positive for chest pain ( aches ) and dyspnea on exertion. Respiratory: Positive for shortness of breath. All other systems reviewed and are negative. Past Medical History He has no past medical history on file. Surgical History He has no past surgical history on file. Social History He has no history on file for tobacco use, alcohol use, and drug use. Family History Family History[1] Allergies Patient has no allergy information on record. Medications Current Medications[2] Last Recorded Vitals BP 156/88 (BP Location: Left arm, Patient Position: Sitting) Pulse 84 Ht 1.753 m (5' 9 ) Wt 107 kg (235 lb) SpO2 93% Comment: on 3L O2 BMI 34.70 kg/m?? Physical Examination: GENERAL: alert and oriented x3, well developed, in no acute distress. HEAD: atraumatic, normocephalic. EYES: PAUL, EOMI. NECK: trachea midline, no JVD present, no carotid bruits present. CARDIAC: S1, S2 present. RRR. No murmur, rubs, or gallops. RESPIRATORY: CTAB, no increased effort of breathing, no rales, rhonchi, or wheezing. ABDOMEN: soft, nontender, nondistended. EXTREMITIES: no lower extremity edema, peripheral pulses are 2+ bilaterally. No rash/skin discoloration present. NEURO: strength/sensation equal and symmetric in bilateral upper and lower extremities. PSYCH: appropriate mood, affect, and judgement. INVESTIGATIONS: Heart catheterization 12/28/2018: Final impressions: 1. Nonobstructive coronary arteries angiographically 2. Moderately reduced of left ventricular systolic function with segmental wall motion abnormalities 3. Mild mitral regurgitation 4. Moderately elevated right-sided heart pressures and wedge pressure consistent with biventricularcongestive heart failure 5. Reduced cardiac output/cardiac index EKG 01/04/2025: Sinus tachycardia with frequent supraventricular premature complexes Moderate ST depression Compared to prior EKG ST T wave deviation now present Echocardiography Report: Transthoracic Echo [facility] A17 Date of service: 03/24/2021 2:23:59 PM MARSHAL Ordering physician: LYLE HILLIARD Indication: Lung transplant Technologist: Mary Jo Brayd Interpreting physician: Jama Parrish MD PATIENT: Name: MR. RAMIRO HALLMAN : 1960 Age: 60 years Gender: M Primary rhythm: sinus. Height: 176.00 cm BSA: 2.17 m?? Weight: 96.40 kg BMI: 31.1 kg/m?? Heart rate 86 bpm Technically difficult exam due to body habitus. Color Doppler was utilized to interrogate the cardiac valves assessed and spectral Doppler was utilized to determine the flow velocities and pressure gradients reported in this exam. MEASUREMENTS: Value Indexed Normal Max aortic dimension 3.0 cm Ao < 3.8 Left atrial volume 67 ml (biplane A-L) 31 ml/m Radha <= 34 LV stroke volume 73 ml (2D 4-ch.) LV end diastolic volume 129 ml (2D 4-ch.) 59.4 ml/m 34<=EDVi<75 LV end systolic volume 56 ml (2D 4-ch.) 25.6 ml/m?? Ejection Fraction 57 % (2D 4-ch.) EF > 52 FINDINGS: LEFT VENTRICLE The left ventricle is normal in size. Left ventricular systolic function is normal. Left ventricular diastolic function was not evaluated due to inconsistent or technically suboptimal data. Definity contrast used for endocardial border detection. Wall Motion: All scored segments are normal. RIGHT VENTRICLE The right ventricle is normal in size. Right ventricular systolic function is normal. RV systolic tissue Doppler velocity is 11.9 cm/s. Tricuspid annular displacement is 3.0 cm. Estimated right ventricular systolic pressure is not reported due to an insufficient tricuspid regurgitation signal. Estimated right atrial pressure is 3 mmHg based on IVC assessment. LEFT ATRIUM The left atrial cavity is normal in size. Unable to reliably measure LA volume due to technical limitations. RIGHT ATRIUM Unable to reliably measure RA volume due to technical limitations. Inferior Vena Cava: The inferior vena cava appears normal measuring 1.2 cm. The vessel decreases greater than 50 percent with inspiration. MITRAL VALVE There is trace mitral valve regurgitation. There is no thickening. The pressure half time is 54 msec. The peak mitral E/A ratio is 0.88. The mitral flow deceleration time is 187 msec. TRICUSPID VALVE There is trace tricuspid valve regurgitation. There is no thickening. AORTIC VALVE There is no aortic valve regurgitation. There is no thickening. The peak gradient is 9 mmHg (peak velocity = 149.0 cm/s). The mean gradient is 4 mmHg. The LVOT mean velocity is 75.2 cm/s. The aortic VTI is 26.9 cm. The mean velocity in the aortic valve is 99.0 cm/s. The dimensionless valve index is 0.79. PULMONIC VALVE There is trace pulmonic valve regurgitation. There is no thickening. AORTA The visualized aorta is normal in size. Measurements - Mid ascending aorta 3.0 cm. PULMONARY ARTERIES The pulmonary arteries are unseen or not interrogated. PERICARDIUM There is no pericardial effusion. Assessment: History of heart failure with recovered ejection fraction History of nonischemic cardiomyopathy Hypertension History of tobacco abuse Obesity Long-term use of inhaled steroids Long-term use of systemic steroid Centrilobular emphysema Obstructive sleep apnea Alpha-1 antitrypsin deficiency Chronic respiratory failure with hypoxia Type 2 diabetes mellitus Tachycardia Premature ventricular contractions and premature atrial contractions Plan: The supraventricular and ventricular ectopy may mainly be the result of significant underlying pulmonary disease with the need for frequent beta-1 agonist therapy, associated hypoxia, and ventricularand supraventricular irritability Will order a complete echocardiogram A 30-day event monitor to assess burden of arrhythmias Depending on the results of the above may consider an ischemic workup as appropriate Treat noncardiac comorbidities as clinically appropriate He is to return to the office in the next 2 months or sooner should problems arise Calli Devlin MD, MPH, [facility], [facility], [facility] Interventional Cardiology Pager Email: [email or web address] [1] No family history on file. [2] No current outpatient medications on file. documented in this encounter Plan of Treatment Upcoming Encounters Date Type Department Care Team (Late st Contact Info) Description 03/13/2025 1:00 PM EDT Office Visit [address] [address] Calli Devlin MD [address] [facility] [address] [facility] [place] [address] documented as of this encounter Visit Diagnoses Diagnosis Chronic respiratory failure with hypoxia (CMS/HCC)- Primary Vxrpq-5-dfsjepbnwvb deficiency (CMS/HCC) Relnh-9-gzwijndqaip deficiency Essential hypertension Unspecified essential hypertension FDC current use of inhaled steroid SVT (supraventricular tachycardia) Other specified cardiac dysrhythmias Non-ischemic cardiomyopathy (CMS/HCC) Other primary cardiomyopathies documented in this encounter Care Teams Pearl Glue Operator Relationship Specialty Start Date End Date Zayra Peterson FNP-C [address] [id number] PCP - General Nurse Practitioner 01/24/25 documented as of this encounter
--- OUTSIDE RECORDS SUMMARY | 2025-01-24 14:00 | XMS_ITS | Encounter Summary ---
Author Organization [facility] Address [address] [place] [address] Care Team Providers Care Flatbed Driver Name Role Phone Zayra Peterson MANAGER CARDIOLOGY-C Primary Care Provider [phone] Encounter Details Date Type Department Care Team (Late st Contact Info) Description 01/24/2025 2:00 PM EDT Office Visit [facility] Heart at [facility] [address] [place] [address] Calli Devlin MD [address] [facility] [address] [facility] [place] [address] Chronic respiratory failure with hypoxia (CMS/HCC) (Primary Dx); Ddqeq-4-mulogfyhjbf deficiency (CMS/HCC); Essential hypertension; snf current use of inhaled steroid; SVT (supraventricular [...] from the original note were not included. [facility] Cardiology Clinic Note Chief Complaint: New patient here to re-establish care. Ref from Dr. Pacheco for tachycardia and frequent PVC's/PAC's. Had 2 [...] oxygen dependent respiratory failure and uses oxygen vzixka-bel-nhwlb. He also uses inhalers multiple times a [...] deviation now present Echocardiography Report: Transthoracic Echo [facility] A17 Date of service: 03/24/2021 2:23:59 PM CHILI Ordering physician: LYLE HILLIARD Indication: Lung transplant Technologist: Mary Jo Brady Interpreting physician: Jama Parrish MD PATIENT: Name: [...] should problems arise Calli Devlin MD, MPH, [facility], [facility], [facility] Interventional Cardiology Pager Email: [email or web address] [1] No family history on file. [2] No current outpatient medications on file. documented in this encounter Plan of Treatment Upcoming Encounters Date Type Department Care Team (Late st Contact Info) Description 03/13/2025 1:00 PM EDT Office Visit [address] [address] Calli Devlin MD [address] [facility] [address] [facility] [place] [address] documented as of this encounter Visit Diagnoses Diagnosis Chronic respiratory failure with hypoxia (CMS/HCC)- Primary Xwzjs-9-fvvorzfjesf deficiency (CMS/HCC) Ajmtq-9-uhxaxaqemos deficiency Essential hypertension Unspecified essential hypertension snf current use of inhaled steroid SVT (supraventricular tachycardia) Other specified cardiac dysrhythmias Non-ischemic cardiomyopathy (CMS/HCC) Other primary cardiomyopathies documented in this encounter Care Teams Flatbed Driver Relationship Specialty Start Date End Date Zayra Peterson FNP-C [address] [id number] PCP - General Nurse Practitioner 01/24/25 documented as of this encounter
[2025-01-30 14:35] VITALS: BP 131/87; PULSE 92; TEMP 36.3; O2SAT 94
[2025-01-30] MEDS: PROTEINASE INHIBITOR IV (14:53)
[2025-01-30] MEDS: ALPHA IV (14:53)
--- OUTSIDE RECORDS SUMMARY | 2025-01-31 05:43 | XMS_ITS ---
Author Organization [facility] in [place] Address [address] [place] [address] Care Team Providers Care Research Technician Name Role Phone Dali Blue Primary Care Provider Ludivina vailaDouglas Cruz [phone] REASON FOR VISIT Letter-Electric Encounters Encounter Location Date Provider Diagnosis Pulmonary Medicine [place] [address] [place] [address] 01/31/2025 Douglas Pacheco Plan Of Treatment No Information Progress Notes * Ramiro HALLMAN ADOB: 0 (64 yo M)Acc No.[id number]:01/31/2025 Patient: Ramiro VILLAGOMEZ :1960 A ge:64 Y S ex:Male Address:[address] [place] [address], [phone] * true * Date: Generated for Allyson anotny/Missy/eTransmitting on: 0 02/03/2025 07:43 AM EDT
--- OUTSIDE RECORDS SUMMARY | 2025-01-31 05:43 | XMS_ITS ---
Author Organization [facility] in [place] Address [address] [place] [address] Care Team Providers Care Water Quality Technician Name Role Phone Dali Blue Primary Care Provider Ludivina vailaDouglas Cruz [phone] REASON FOR VISIT Letter-Electric Encounters Encounter Location Date Provider Diagnosis Pulmonary Medicine [place] [address] [place] [address] 01/31/2025 Douglas Pacheco Plan Of Treatment No Information Progress Notes * Ramiro HALLMAN ADOB: 0 (64 yo M)Acc No.[id number]:01/31/2025 Patient: Ramiro VILLAGOEMZ :1960 A ge:64 Y S ex:Male Address:[address] [place] [address], [phone] * true * Date: Generated for Allyson antony/Missy/eTransmitting on: 0 02/05/2025 03:17 PM EDT
--- OUTSIDE RECORDS SUMMARY | 2025-02-03 07:43 | XMS_ITS | Encounter Summary ---
Author Organization [facility] Address [address] [place] [address] Care Team Providers Care Jute Bag Cutting Machine Operator Name Role Phone Janet Benavides MD Primary Care Provider [phone] Douglas Pacheco DO Unavailable Source Comments In the event this information is protected by the Federal Confidentiality of Alcohol and Drug AbusePatient Records regulations: The Federal rules restrict any use of the information to criminally investigate or prosecute any alcohol or drug abuse patient.[facility] Encounter Details Date Type Department Care Team (Late st Contact Info) Description 11/26/2021 Patient Msg Transplant Center [address] [id number] Provider, [facility] Voice Mail Social History Tobacco Use Types Packs/Day Years Used Date Smoking Tobacco: Never Assessed Area Deprivation Index Answer Date Chirag rded National Score (1-100), lower number is lower ri sk Not on file 03/18/2021 State Score (1-10), lower number is lower risk N ot on file 03/18/2021 Data from: https://www.neighborhoodatlas.medicine.[facility].edu/. Last address used for calculation Not on file 03/18/2021 Sex and Gender Information Value Date Recorded Sex Assigned at Not on file Legal Sex Male 8:40 AM EDT Gender Identity Male 03/17/2021 10:03 PM EDT Sexual Orientation Straight 03/17/2021 10 :03 PM EDT COVID-19 Exposure Response Date Recorded In the last 10 days, have yo u been in contact with someone who was confirmed or suspected to have Coronavirus/COVID-19? No / Unsure 11/03/2021 4:18 PM EDT documented as of this encounter Plan of Treatment Upcoming Encounters Date Type Department Care Team (Late st Contact Info) Description 03/11/2025 12:15 PM EDT Procedure Pulmonary Medicine [address] [place] [address] Stage 4 copd 03/11/2025 12:45 PM EDT Procedure Pulmonary Medicine [id number] [place] [address] Stage 4 copd 03/11/2025 1:45 PM EDT Office Visit Pulmonary Medicine [address] [place] [address] [place] [address] [place] [address] Stage 4 copd documented as of this encounter Visit Diagnoses Not on filedocumented in this encounter Care Teams Jute Bag Cutting Machine Operator Relationship Specialty Start Date End Date Janet Benavides MD [address] [place] [address] PCP - General Family Medicine 03/12/20 Douglas Pacheco DO [address] [place] [address] Referring Pulmonary and Critical Care Medicine 03/12/20 documented as of this encounter
--- OUTSIDE RECORDS SUMMARY | 2025-02-03 07:43 | XMS_ITS | Encounter Summary ---
Author Organization [facility] Address [address] [place] [address] Care Team Providers Care Turkey Boner Name Role Phone Janet Benavides MD Primary Care Provider [phone] Douglas Pacheco DO Unavailable [phone] Source Comments In the event this information is protected by the Federal Confidentiality of Alcohol and Drug AbusePatient Records regulations: The Federal rules restrict any use of the information to criminally investigate or prosecute any alcohol or drug abuse patient.[facility] Reason for Visit * Reason Comments chart prep/review for OPD 11/04 Encounter Details Date Type Department Care Team (Late st Contact Info) Description 11/03/2021 Abstract Pulmonary Medicine [address] [address] Molly Gan APRN.POULTRY TENDER [address] [place], [place] [id number] chart prep/review for OPD 11/04 Social History Tobacco Use Types Packs/Day Years Used Date Smoking Tobacco: Never Assessed Area Deprivation Index Answer Date Chirag rded National Score (1-100), lower number is lower ri sk Not on file 03/18/2021 State Score (1-10), lower number is lower risk N ot on file 03/18/2021 Data from: https://www.neighborhoodatlas.medicine.[facility]/. Last address used for calculation Not on [...] 03/11/2025 12:15 PM EDT Procedure Pulmonary Medicine [address] [place] [address] Stage 4 copd 03/11/2025 12:45 PM EDT Procedure Pulmonary Medicine [id number] [place] [address] Stage 4 copd 03/11/2025 1:45 PM EDT Office Visit Pulmonary Medicine [id number] [place] [address] [place] [address] [place] [address] Stage 4 copd documented as of this encounter Visit Diagnoses Not on filedocumented in this encounter Care Teams Turkey Boner Relationship Specialty Start Date End Date Janet Benavides MD [address] [place] [address] PCP - General Family Medicine 03/12/20 Douglas Pacheco DO [address] [place] [address] Referring Pulmonary and Critical Care Medicine 03/12/20 documented as of this encounter
--- OUTSIDE RECORDS SUMMARY | 2025-02-03 07:43 | XMS_ITS | Encounter Summary ---
Author Organization [facility] Address [address] [place] [address] Care Team Providers Care Process Helper Name Role Phone Janet Benavides MD Primary Care Provider [phone] Douglas Pacheco DO Unavailable [phone] Source Comments In the event this information is protected by the Federal Confidentiality of Alcohol and Drug AbusePatient Records regulations: The Federal rules restrict any use of the information to criminally investigate or prosecute any alcohol or drug abuse patient.[facility] Encounter Details Date Type Department Care Team (Late st Contact Info) Description 12/23/2021 Patient Msg Transplant Center [address] [phone] Provider, [facility] Transplant Appointments Social History Tobacco Use Types Packs/Day Years Used Date Smoking Tobacco: Never Assessed Area Deprivation Index Answer Date Chirag rded National Score (1-100), lower number is lower ri sk Not on file 03/18/2021 State Score (1-10), lower number is lower risk N ot on file 03/18/2021 Data from: https://www.neighborhoodatlas.medicine.[facility].edu/. Last address used for calculation Not on file 03/18/2021 Sex and Gender Information Value Date Recorded Sex Assigned at Not on file Legal Sex Male 8:40 AM EDT Gender Identity Male 03/17/2021 10:03 PM EDT Sexual Orientation Straight 03/17/2021 10 :03 PM EDT documented as of this encounter Plan of Treatment Upcoming Encounters Date Type Department Care Team (Late st Contact Info) Description 03/11/2025 12:15 PM EDT Procedure Pulmonary Medicine [address] [place] [address] Stage 4 copd 03/11/2025 12:45 PM EDT Procedure Pulmonary Medicine [id number] [place] [address] Stage 4 copd 03/11/2025 1:45 PM EDT Office Visit Pulmonary Medicine [id number] [place] [address] [place] [address] [place] [address] Stage 4 copd documented as of this encounter Visit Diagnoses Not on filedocumented in this encounter Care Teams Process Helper Relationship Specialty Start Date End Date Janet Benavides MD [address] [place] [address] PCP - General Family Medicine 03/12/20 Douglas Pacheco DO [address] [place] [address] Referring Pulmonary and Critical Care Medicine 03/12/20 documented as of this encounter
--- OUTSIDE RECORDS SUMMARY | 2025-02-03 07:44 | XMS_ITS | Encounter Summary ---
Author Organization [facility] Address [address] [place] [address] Care Team Providers Care Fender Mechanic Name Role Phone Zayra Peterson CHEMICAL LIBRARIAN-C Primary Care Provider Reason for Referral * Imaging (Routine) - Pending Review Specialty Diagnoses / Procedures Referred By Anthony gomez Referred To Contact Cardiology Diagnoses SVT (supraventricular tachycardia) PIKE (dyspnea on exertion) Procedures Transthoracic echo (TTE) complete Calli Devlin MD [address] [facility] [address] [facility] [place] [address] Phone: tel: fax: Referral ID Status Reason Start Date Expiration Date Visits Requested Visits Authorized [id number] Pending Review Perform Procedure 01/24/2025 01/24/2026 1 1 Encounter Details Date Type Department Care Team (Late Contact Info) Description 01/24/2025 Orders Only [facility] [address] [place] [id number] Vianney Davis MA SVT (supraventricular tachycardia) (Primary Dx); PIKE (dyspnea on exertion) Social History Tobacco Use Types Packs/Day Years Used Date Smoking Tobacco: Former Cigarettes Smokeless Tobacco: Never Alcohol Use Standard Drinks/Week Comments Not Currently 0 (1 standard drink = 0.6 oz pur e alcohol) Sex and Gender Information Value Date Recorded Sex Assigned at Not on file Legal Sex Male 10:32 PM EDT Gender Identity Not on file Sexual Orientation Not on file documented as of this encounter Plan of Treatment Upcoming Encounters Date Type Department Care Team (Late st Contact Info) Description 03/13/2025 1:00 PM EDT Office Visit [facility] [address] [place] [address] Calli Devlin MD [address] [place] [address] [facility] [place] [address] Scheduled Orders Name Type Priority Associated Diagnoses Order Schedule Transthoracic echo (TTE) complete Echocardiography Routine SVT (supraventricular tachycardia) PIKE (dyspnea on exertion) Expected: 01/24/2025 (Approximate), Expires: 01/24/2027 documented as of this encounter Visit Diagnoses Diagnosis SVT (supraventricular tachycardia)- Primary Other specified cardiac dysrhythmias PIKE (dyspnea on exertion) Other dyspnea and respiratory abnormality documented in this encounter Care Teams Fender Mechanic Relationship Specialty Start Date End Date Zayra Peterson FNP-C [address] [place] [address] PCP - General Nurse Practitioner 01/24/25 documented as of this encounter
--- OUTSIDE RECORDS SUMMARY | 2025-02-03 07:44 | XMS_ITS | Encounter Summary ---
Author Organization [facility] Address [address] [place] [address] Care Team Providers Care Licensed Professional Counselor Name Role Phone Zayra Peterson-[place] Primary Care Provider [phone] Reason for Visit * Reason Onset Date Comments Med Refill 01/24/2025 Encounter Details Date Type Department Care Team (Late st Contact Info) Description 01/24/[address] [address] Racheal Joshi MA Social History Tobacco Use Types Packs/Day Years [...] Description 03/13/2025 1:00 PM EDT Office Visit [address] [address] Calli Devlin MD [address] [facility] [place] [address] [facility] [place] [address] documented as of this encounter Visit Diagnoses Not on filedocumented in this encounter Care Teams Licensed Professional Counselor Relationship Specialty Start Date End Date Zayra Peterson FNP-C [address] [place] [address] PCP - General Nurse Practitioner 01/24/25 documented as of this encounter
--- OUTSIDE RECORDS SUMMARY | 2025-02-03 07:44 | XMS_ITS | Patient Health Record ---
Author Organization [facility] in [place] Address [address] [place] [address] Care Team Providers Care Horses Or Mules Teamster Name Role Phone Dali Blue Primary Care Provider Ludivina vailakim Douglas Pacheco Unavailable [phone] Allergies Allergen (clinical drug ingredient) Drug/Non Drug Allergy documented on EMR Reaction Allergy Type Onset Date Status metformin Metformin diarrhea Drug Allergy Active Results Component Value Reference Range Notes CBC AUTO DIFF Reviewed date:04/29/2024 02:51:35 PM Interpretation: Performing Lab: Notes/Report: [facility] , White Blood Count 9.9 4.0-11.0 10 3/uL Red Blood Count 5.51 4.70-6.10 10 6/uL Hemoglobin 15.3 14.0-18.0 g/dL Hematocrit 46.6 42.0-54.0 % Mean Corpuscular Volume 84.6 80.0-94.0 fL Mean Corpuscular Hemoglobin 27.8 25.9-34.0 pg Mean Corpuscular HGB Conc 32.8 29.9-35.2 g/dL Red Cell Distribution Width 13.7 11.0-15.0 % Platelet Count 398 150-450 10 3/uL Mean Platelet Volume 9.2 9.5-13.5 fL Neutrophils Percent Auto 89.4 43.0-75.0 % Lymphocytes Percent Auto 8.5 20.5-60.0 % Monocytes Percent Auto 1.3 1.7-12.0 % Eosinophils Percent Auto 0.0 0.9-7.0 % Basophils Percent Auto 0.2 0.2-2.0 % Immature Granulocytes Pct Auto 0.6 0.0-0.5 % Neutrophils Absolute Auto 8.9 1.4-6.5 10 3/uL Lymphocytes Absolute Auto 0.8 1.2-3.8 10 3/uL Monocytes Absolute Auto 0.1 0.3-0.8 10 3/uL Eosinophils Absolute Auto 0.0 0.0-0.7 10 3/uL Basophils Absolute Auto 0.0 0.0-0.1 10 3/uL Immature Granulocytes Abs Auto 0.06 0.00-0.03 10 3/uL Performing Lab: see note ML - [facility] LB PROF CHEM 8 (BAS METB) Reviewed date:04/29/2024 02:51:35 PM Interpretation: Performing Lab: Notes/Report: [facility] , Sodium 139 136-145 mmol/L Potassium 4.7 3.5-5.1 mmol/L Chloride 100 98-107 mmol/L Carbon Dioxide 25.9 21.0-32.0 mmol/L Anion Gap 17.8 Glucose 251 74-106 mg/dL Blood Urea Nitrogen 13.0 7.0-18.0 mg/dL Creatinine 1.24 0.70-1.30 mg/dL Estimated GFR ( Elizabeth >60 >=60 mL/min/1.73m 2 Estimated GFR (Non- Surekha 59 >=60 mL/min/1.73m 2 BUN Creatinine Ratio 10.5 Calcium 10.0 8.5-10.1 mg/dL Performing Lab: see note - [facility] THEOPHYLLINE Reviewed date:04/29/2024 02:51:35 PM Interpretation: Performing Lab: Notes/Report: [facility] , Theophylline 13.0 10.0-20.0 ug/mL Performing Lab: see note - [facility] ECG 12 lead Reviewed date:12/19/2024 07:18:59 AM Interpretation: Performing Lab: Notes/Report: Source Facility: [facility]-[address] [place] [address] [place] [address] Electrocardiograph Report Signed Patient: RICARDO HALLMAN MR#: [id number] : 1960 Acct:[id number] Age/Sex: 64 / M ADM Date: 12/18/24 Loc: CARD Attending Dr: Douglas Pacheco D.O. Ordering Physician: Douglas Pacheco D.O. 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 Measurements Intervals [place] Rate: 96 P: 73 IN: 150 QRS: 54 QRSD: 98 T: 87 QT: 365 QTc: 463 Interpretive Statements SINUS RHYTHM WITH OCCASIONAL SUPRAVENTRICULAR PREMATURE COMPLEXES [place] ECG Compared to ECG 12/18/2024 14:37:29 Sinus tachycardia no longer present ST (T wave) deviation no longer present Electronically Signed On 12-18-2024 18:10:48 EDT by JAGRUTI DOMINIQUE M.D. Dictated By: JAGRUTI DOMINIQUE Signed By: 12/18/24 1811 DD/ 1439 TD/TT: Obstetrical Nurse: [place] [address] Electrocardiograph Report Signed Patient: VELIA HALLMAN MR#: [id number] : 1960 Acct:[id number] Age/Sex: 64 / M ADM Date: 12/18/24 Loc: CARD Attending Dr: Douglas Pacheco D.O. Ordering Physician: Douglas Pacheco D.O. 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 Measurements Intervals [place] Rate: 96 P: 73 IN: 150 QRS: 54 QRSD: 98 T: 87 QT: 365 QTc: 463 Interpretive Statements SINUS RHYTHM WITH OCCASIONAL SUPRAVENTRICULAR PREMATURE COMPLEXES [place] ECG Compared to ECG 09/2024 14:37:29 Sinus tachycardia no longer present ST (T wave) deviatio n no longer present Electronically Korin d On 12-18-2024 18:10:48 EDT by JAGRUTI DOMINIQUE M.D. Dictated By: JAGRUTI DOMINIQUE Signed By: 12/18/24 1811 DD/ 1439 TD/TT: Obstetrical Nurse: [facility] Reviewed date:04/28/2024 09:39:37 PM Interpretation: Performing Lab: Notes/Report: [facility] , Theophylline 15.6 10.0-20.0 ug/mL Performing Lab: see note ML - [facility] LB ECG 12 lead Reviewed date:12/19/2024 07:19:18 AM Interpretation: Performing Lab: Notes/Report: Source Facility: [place] [address] Electrocardiograph Report Signed Patient: RICARDO HALLMAN MR#: [id number] : 1960 Acct:[id number] Age/Sex: 64 / M ADM Date: 12/18/24 Loc: CARD Attending Dr: Douglas Pacheco D.O. Ordering Physician: Douglas Pacheco D.O. 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 Measurements Intervals [place] Rate: 100 P: 77 IN: 161 QRS: 50 QRSD: 93 T: 91 QT: 332 QTc: 429 Interpretive Statements SINUS TACHYCARDIA WITH FREQUENT SUPRAVENTRICULAR PREMATURE COMPLEXES MODERATE ST DEPRESSION [0.05+ mV ST DEPRESSION] Abnormal ECG Compared to ECG 08/20/2024 15:27:35 ST (T wave) deviation now present Indeterminate axis no longer present Electronically Signed On 12-18-2024 18:10:03 EDT by JAGRUTI DOMINIQUE M.D. Dictated By: JAGRUTI DOMINIQUE Signed By: 12/18/24180912/18/241809 DD/ 36 TD/TT: Obstetrical Nurse: [place] [address] Electrocardiograph Report Signed Patient: VELIA HALLMAN MR#: [id number] : 1960 Acct:[id number] Age/Sex: 64 / M ADM Date: 12/18/24 Loc: CARD Attending Dr: Douglas Pacheco D.O. Ordering Physician: Douglas Pacheco D.O. 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 Measurements Intervals [place] Rate: 100 P: 77 IN: 161 QRS: 50 QRSD: 93 T: 91 QT: 332 QTc: 429 Interpretive Statements SINUS TACHYCARDIA WI TH FREQUENT SUPRAVENTRICULAR PREMATURE COMPLEXES MODERATE ST DEPRESSI ON [0.05+ mV ST DEPRESSION] Abnormal ECG Compared to ECG 09/2024 15:27:35 ST (T wave) deviatio n now present Indeterminate axis n o longer present Electronically Korin d On 12-18-2024 18:10:03 EDT by JAGRUTI DOMINIQUE M.D. Dictated By: JAGRUTI DOMINIQUE Signed By: 12/18/24180912/18/241809 DD/ 36 TD/TT: Obstetrical Nurse: [facility] Reviewed date:04/30/2024 08:12:03 PM Interpretation: Performing Lab: Notes/Report: , [facility] Theophylline 13.7 10.0-20.0 ug/mL Performing Lab: see note ML - [facility] LB PROF CHEM 8 (BAS METB) Reviewed date:04/30/2024 08:12:03 PM Interpretation: Performing Lab: Notes/Report: [facility] , Sodium 137 136-145 mmol/L Potassium 4.8 3.5-5.1 mmol/L Chloride 101 98-107 mmol/L Carbon Dioxide 26.0 21.0-32.0 mmol/L Anion Gap 14.8 Glucose 189 74-106 mg/dL Blood Urea Nitrogen 19.0 7.0-18.0 mg/dL Creatinine 1.20 0.70-1.30 mg/dL Estimated GFR ( Elizabeth >60 >=60 mL/min/1.73m 2 Estimated GFR (Non- Surekha >60 >=60 mL/min/1.73m 2 BUN Creatinine Ratio 15.8 Calcium 9.6 8.5-10.1 mg/dL Performing Lab: see note - [facility] LB CBC AUTO DIFF Reviewed date:04/30/2024 08:12:03 PM Interpretation: Performing Lab: Notes/Report: [facility] , White Blood Count 16.6 4.0-11.0 10 3/uL Red Blood Count 4.87 4.70-6.10 10 6/uL Hemoglobin 13.8 14.0-18.0 g/dL Hematocrit 41.3 42.0-54.0 % Mean Corpuscular Volume 84.8 80.0-94.0 fL Mean Corpuscular Hemoglobin 28.3 25.9-34.0 pg Mean Corpuscular HGB Conc 33.4 29.9-35.2 g/dL Red Cell Distribution Width 14.1 11.0-15.0 % Platelet Count 429 150-450 10 3/uL Mean Platelet Volume 9.4 9.5-13.5 fL Neutrophils Percent Auto 88.5 43.0-75.0 % Lymphocytes Percent Auto 6.6 20.5-60.0 % Monocytes Percent Auto 4.1 1.7-12.0 % Eosinophils Percent Auto 0.0 0.9-7.0 % Basophils Percent Auto 0.1 0.2-2.0 % Immature Granulocytes Pct Auto 0.7 0.0-0.5 % Neutrophils Absolute Auto 14.7 1.4-6.5 10 3/uL Lymphocytes Absolute Auto 1.1 1.2-3.8 10 3/uL Monocytes Absolute Auto 0.7 0.3-0.8 10 3/uL Eosinophils Absolute Auto 0.0 0.0-0.7 10 3/uL Basophils Absolute Auto 0.0 0.0-0.1 10 3/uL Immature Granulocytes Abs Auto 0.12 0.00-0.03 10 3/uL Performing Lab: see note ML - [facility] LB Reason For Referral Reason Tachycardia, frequen t PACs & PVCs Diagnosis 1 Tachycardia, unspeci fied (R00.0) Referral Organization [facility] Referring Provider First Name Douglas Referring Provider Last Name Mart Referring Provider Speciality Pulmonolog y Referred Provider Calli Devlin Referred Provider Specialty Cardiology General Notes Faisal Ayala 12/18 04:56:55 PM >Referral was taken to Racheal Mclaughlin at [facility] Cardiology., Faisal Ayala 12/20/2024 11:19:56 AM >I called and spoke with Vianney at [facility] Cardiology who confirmed the referral was received and states she has left a voicemail for the patient to call the office. Vianney states the patient was previously under [facility] Cardiology care but did not follow up in the past., Faisal Ayala 12/27/2024 11:16:15 AM >I called and spoke with Vianney at [facility] Cardiology who states the patient has not returned the call to schedule. I personally called the patient and advised him he needs to return the call to [facility] Cardiology and schedule. Patient verbalized understanding and states he planned on calling today., Faisal Ayala 12/27/2024 01:28:07 PM >Patient called and left a voicemail stating he is scheduled with [facility] on 01/24/2025 at 1400., Faisal Ayala 01/24/2025 04:54:17 PM >Consult letter received and scanned to for review. Referral Priority Routine Referral Appointment Date 01/24/2025 Medications Medication SIG (Take, Route, Frequency, Duration) Notes Start Date End Date Status Ipratropium-Albuterol 0.5-2.5 (3) MG/3ML 3mL Inhalation QID for 30 days Dispense 120 each Active Theophylline ER 400 mg 1 tablet Orally B ID for 90 days Active Jardiance 25 MG TAKE 1 TABLET BY BEVERLY TH DAILY Oral for 30 Days Active Lisinopril 5 MG 1 tablet Orally Once a day Active Trelegy Ellipta 100-62.5-25 MCG/ACT INHALE 1 PUFF BY MOUTH EVERY DAY RINSE MOUTH AFTER USE for 90 Active Albuterol Sulfate HFA 108 (90 Base) MCG/ACT 2 puffs as needed for SOB Inhalation Q4H for 90 days Active Venlafaxine HCl ER 150 MG 1 tablet with food Orally Once a day Active dilTIAZem HCl ER 240 MG 1 capsule Orally Once a day Active Pravastatin Sodium 40 MG 1 tablet Orally Once a day Active Furosemide 40 MG 1 tablet Orally Once a day Active predniSONE 20 MG 1 tablet Orally QD f or 90 days Active glipiZIDE 10 MG 1 tablet 30 minutes before breakfast Orally Once a day Active Prolastin-C 1000 MG/20ML as directed Intravenous Active HYDROcodone-Acetaminophen 5-325 MG 1 tablet as needed Orally every 6 hrs Active Sodium Chloride 3 % 3mL Inhalation TID for 30 days Dispense 90 each 12/07/2023 Active Metoprolol Succinate ER 25 MG 1 tablet Orally Once a day Active ALPRAZolam 0.5 MG TAKE 1 TABLET BY BEVERLY TH TWICE DAILY NEEDED Oral for 30 Days Active Mucinex DM 30-600 MG 1 to 2 tablets PRN chest congestion Orally BID for 90 days Active ARIPiprazole 10 MG 1 tablet Orally Once a day Active Omeprazole 20 MG 1 capsule 30 minutes before morning meal Orally Once a day Active Cyclobenzaprine HCl 5 MG 1 tablet at bed time as needed Orally Once a day Active Ozempic (0.25 or 0.5 MG/DOSE) 2 MG/3ML as directed Subcutaneous Active Immunizations Vaccine Route Administration Date Status Comme nts Flu, Flucelvax (49211) 6 mos and older, single-dose syringe Unknown 04/30/2024 Administered Flu, Flucelvax (65983) 2 yrs +, single-dose syringe (1254-5657) Unknown 05/16/2020 Administered Pneumococcal (Prevnar 13) Unknown 05/10/2018 Administer ed Social History Tobacco Use: Social History Observation Description Date Details (start date - stop date) Former Smoker NA - NA Tobacco Control (Standard) Question Answer Notes Tobacco use: Former smoker Additional Findings: Tobacco non-user Ex-very he riya cigarette smoker (40+/day) Problems Problem Type SNOMED Code ICD Code Onset Dates Problem Status W/U Status Risk Notes Problem 737985255 Chronic obstructive pulmonary disease, unspecified (J44.9) Active confirmed Problem 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 , 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 (113.6m g/dL) Problem Centrilobular emphysema (91593951) Centrilobular emphysema (J43.2) Active confirmed Problem Chronic respiratory failure (20094598) Chronic respiratory failure with hypoxia (J96.11) Active confirmed Problem Long-term current use of inhaled steroid (109860976) terminal superintendent (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 (Z79.51) Active confirmed Problem 050584502267786 USP (current) use of systemic steroids (Z79.52) Active confirmed Problem Obesity (125685327) Obesity (E66.9) Active confirmed Problem Obstructive sleep apnea syndrome (71829574) RANCHO (obstructive sleep apnea) (G47.33) Active confirmed Problem Generalized anxiety disorder (72576104) CANDACE (generalized anxiety disorder) (F41.1) Active confirmed Problem Acute exacerbation of chronic obstructive airways disease (469279942) COPD exacerbation (J44.1) Active confirmed Problem Type II diabetes mellitus well controlled (161649537) Diabetes mellitus type 2, controlled (E11.9) Active confirmed Problem Ex-tobacco user (finding) (425488881) History of tobacco abuse (Z87.891) Active confirmed 3ppd x 40 years (120 pack-ye ars), quit 2012 Problem Long-term current use of insulin (856580419) Long-term insulin use (Z79.4) Active confirmed Problem Leukocytosis (581905360) Elevated WBCs (D72.829) Active confirmed Problem Essential hypertension (80524972) BP (high blood pressure) (I10) Active confirmed Problem Hypertensive disorder (29515535) Chronic hypertension (I10) Active confirmed Problem Diabetes mellitus (96510616) Diabetes mellitus (E11.9) Active confirmed Problem 605621696 Body mass index [BMI] 35.0-35.9, adult (Z68.35) Active confirmed Problem 562560459 Body mass index [BMI] 37.0-37.9, adult (Z68.37) Active confirmed Problem History of COVID-19 (35444888427498279 5) History of COVID-19 (Z86.16) Active confirmed Vital Signs Heart Rate 120 /min 12/18/2024 Temperature 96.8 degrees Fahrenheit 12/18/2024 Respiratory Rate 22 /min 12/18/2024 Blood pressure diastolic 84 mm Hg 12/18/2024 Oximetry 94 % 12/18/2024 Height 71 in 12/18/2024 Blood pressure systolic 166 mm Hg 12/18/2024 Weight 234.4 lbs 12/18/2024 BMI 32.69 kg/m2 12/18/2024 Procedures Procedure Date Ordered Date Performed Result Body Sit e EKG 12/18/2024 12/18/2024 N/A Encounters Encounter Location Date Provider Diagnosis Pul[facility] Medicine [address] [address] 03/14/[address] emph[address] J43.2 ; Robae-4-fvxedmqhzfy deficiency E88.01 ; Chronic respiratory failure with hypoxia J96.11 ; RANCHO (obstructive sleep apnea) G47.33 ; Diabetes mellitus type 2, controlled E11.9 ; Obesity E66.9 ; terminal superintendent (current) use of systemic steroids Z79.52 ; USP (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 Z79.51 ; History of tobacco abuse Z87.891 ; History of COVID-19 Z86.16 and Encounter for screening for malignant neoplasm of respiratory organs Z12.[address] [facility] [address] [address] 06/20/[address] J43.2 ; Fvkso-3-grqsbwmdblx deficiency E88.01 ; Chronic respiratory failure with hypoxia J96.11 ; RANCHO (obstructive sleep apnea) G47.33 ; Diabetes mellitus type 2, controlled E11.9 ; Obesity E66.9 ; USP (current) use of systemic steroids Z79.52 ; USP (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 Z79.51 and History of tobacco abuse Z87.891 [facility] [address] [address] 09/19/[address] J43.2 ; Vuumg-1-vazzjobmcrd deficiency E88.01 ; Chronic respiratory failure with hypoxia J96.11 ; RANCHO (obstructive sleep apnea) G47.33 ; Diabetes mellitus type 2, controlled E11.9 ; Obesity E66.9 ; terminal superintendent (current) use of systemic steroids Z79.52 ; terminal superintendent (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 Z79.51 and History of tobacco abuse Z87.891 [facility] [address] [place] [address] 12/18/2024 [facility] [address] J43.2 ; Tachycardia, unspecified R00.0 ; Rvxbx-0-xkheztrfheb deficiency E88.01 ; Chronic respiratory failure with hypoxia J96.11 ; RANCHO (obstructive sleep apnea) G47.33 ; Diabetes mellitus type 2, controlled E11.9 ; Obesity E66.9 ; USP (current) use of systemic steroids Z79.52 ; terminal superintendent (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 Z79.51 and History of tobacco abuse Z87.891 [facility] [address] [place] [address] 03/14/2024 [facility] Pulmonary [facility] [address] [place] [address] 05/30/2024 [facility] Pulmonary [facility] [address] [place] [address] 07/02/2024 [facility] Pulmonary [facility] [address] [place] [address] 2024 [facility] Pulmonary [facility] [address] [place] [address] 12/19/2024 [facility] [address] [place] [address] 01/31/2025 [facility] Assessments Encounter Date Diagnosis (ICD Code) Assessment Notes Treatment Notes Treatment Clinical Notes Section Notes 03/14/2024 Centrilobular emphysema (ICD-10 - J43.2) Patient is having mildly increased symptoms. There are new wheezes on examination. He does not appear toxic. Concerned about the upcoming holiday, so prescribed patient a prednisone taper in addition to his daily 20 mg prednisone dose. Patient was instructed to increase his use of hypertonic saline if he begins having more chest congestion, though he did not appear rhonchorous today. Did not discuss this with the patient, but there is Ohtuvayre (ensifentine), a novel PDE3/PDE4 inhibitor. As theophylline goes through the PDE pathway, I do have a clinical query out with the Ohtuvayre liason regarding need for theophylline washout, dose change, etc. Depending on the answer, this may be an option for him in the future. Discussed weight loss to qualify for endobronchial valves. Mxdn-fc-sqim encounter performed with the patient to document continued need for a nebulizer with nebulized medications. -Current nebulized medications: DuoNeb. Hypertonic saline (3%) -Symptom control: Improved breathing with DuoNeb -Reported side or adverse effects: None -Recommendations: Continue nebulizer with solutions. Patient was encouragd to use the hypertonic saline more often when feeling congested. 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 PFT done 11/14/2023 shows FEV1 @ 33%, which has been an improvement since 12/27/2019 (29%) and 05/24/2017 (21%). Will discuss repeating PFT in October 2024 next visit. 06/20/2024 Centrilobular emphysema (ICD-10 - J43.2) Very severe COPD, on near-max therapy. Does not qualify for Dupixent - eosinophils are only 200. Ohtuvayre is an option, but he would need to stop theophylline ~5 days before starting Ohtuvayre (if it is even affordable). Also recommended restarting AAT augmentation therapy at this time. Patient voiced agreement to the plan of care. Paperwork was signed for Ohtuvayre, and orders prepped for Prolastin for the infusion center. There is concern that the patient has a history of not picking up or returning phone calls, so hopefully the patient will answer or at least contact any company associated with respiratory medications that attempt to reach out to him. Patient requested a new handicap placard Rx as his old one . He qualifies as he is on O2 ATC. Prescription written and handed to the patient. 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 Will try to restart Prolastin at this time. 09/19/2024 Centrilobular emphysema (ICD-10 - J43.2) Very severe COPD. Ohtuvayre not covered, Dupixent not an option as eosinophils are 200. On theophylline, prednisone, O2, and triple inhaled therapy. Participated in pulmonary rehab. Restarted Prolastin. Explained to patient that I have no other medical options to offer him at this time. He previously went to [place] for evaluation of endobronchial valves or lung transplant ~2022, but he was deemed to be in too good a shape at that time. He has declined since then. Recommended patient return there for re-evaluation. If he is not a candidate, palliative care is suggested, and if further decline, Hospice. 12/18/2024 Centrilobular emphysema (ICD-10 - J43.2) 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 Ohtuvayre not covered He asked about Dupixent, but I already checked eosinophils which excluded him as they were 200 (needs to be 300 or higher). Additionaly, he is on theophylline, Trelegy 100, and Prolastin (AAT augmentation therapy). Participated in pulmonary rehab. Was evaluated in [place] for endobronchial valves & lung transplant ~2022, but he was deemed to be in too good a shape at that time. Clinical status has declined. He was instructed to return to [place] for re-evaluation, but he has not gone [...] contribute to tachycardia and ectopy. He saw [facility] Dr. Devlin ~7 years ago. I recommended re-evaluation by cardiology as I am limited on what I am able to do for him currently. 12/18/2024 Iwvvo-8-gxgpftlly in deficiency (ICD-10 - E88.01) Genotype: MZ [...] access, then I would recommend a port. 09/19/2024 Mwete-0-gxirhxtjq in deficiency (ICD-10 - E88.01) Genotype: MZ , 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 (113.6mg/dL) Restarted Prolastin. Continue with weekly infusions. 06/20/2024 Chronic respiratory failure with hypoxia (ICD-10 - J96.11) Eanl-wc-jfmg encounter performed with the patient to document continued need for supplemental oxygen (O2). -Flow & directions: ~3-4L/min ATC-Patient voices adherence to recommended usage: Yes-Symptom control on O2: Decreased dyspnea-Counseled patient not begin, restart, or continue [...] to the point of requiring O2.-Recommendations : Continue O2 ATC 03/14/2024 Chronic respiratory failure with hypoxia (ICD-10 - J96.11) Xpvc-ax-ibit encounter performed with the patient to document continued need for supplemental oxygen (O2). -Qualifying study: 11/14/2023 6MW --SpO2 @ rest on RA: 94% --SpO2 with ambulation on RA: 88% --SpO2 with ambulation on 2L/min O2: 91% -Prior flow & directions: 4L/min ATC-Patient voices adherence to recommended usage: Yes-Symptom control on O2: Less shortness of breath with use-Counseled patient not begin, restart, or continue smoking, [...] to the point of requiring O2.-Recommendations : Continue O2 as prescribed 03/14/2024 RANCHO (obstructive sleep apnea) (ICD-10 - G47.33) Mjnq-vw-vigo encounter performed with the patient to document continued need for PAP therapy. -Current DME: [facility] 02/23/2023 AHI 20; BiPAP titration: 30/04 -Compliance was reviewed from 02/11/2024 - 03/11/2024-Total days used: 30 (100%)-Total of all days >4 hours of use: 0/30 (100%)-Current model, mode, & pressure: AirCurve 10 VAuto-Residual AHI: 0.4-Air leak (95th percentile): 85.5L/min-Mask/harn ess fitting: Decent - leaks d/t facial contour and anderson-Sleep quality: Improved with PAP use-Daytime hypersomnolence: Decreased with PAP use-Recommendations : Superb compliance with voiced benefit with use. Patient voices no concerns toay.-Note: This lmms-fx-crrq visit comes with my authorization that the patient's DME may request to renew, reorder, and/or replace tubing, supplies, mask, and/or PAP device (if applicable). 06/20/2024 RANCHO (obstructive sleep apnea) (ICD-10 - G47.33) Previously addressed: Ymaw-zb-tzko encounter performed with the patient to document continued need for PAP therapy. -Current DME: RPT-Zyyyj-pxahl 02/23/2023 AHI 20; BiPAP titration: 30/04 -Compliance was reviewed from 02/11/2024 - 03/11/2024-Total days used: 30 (100%)-Total of all days >4 hours of use: 0/30 (100%)-Current model, mode, & pressure: AirCurve 10 VAuto-Residual AHI: 0.4-Air leak (95th percentile): 85.5L/min-Mask/harn ess fitting: Decent - leaks d/t facial contour and anderson-Sleep quality: Improved with PAP use-Daytime hypersomnolence: Decreased with PAP use-Recommendations : Superb compliance with voiced benefit with use. Patient voices no concerns toay.-Note: This sswf-wd-giig visit comes with my authorization that the patient's DME may request to renew, reorder, and/or replace tubing, supplies, mask, and/or PAP device (if applicable). 09/19/2024 Chronic respiratory failure with hypoxia (ICD-10 - J96.11) Psqm-sg-dlim encounter performed with the patient to document continued need for supplemental oxygen (O2). -Flow & directions: ~3-4L/min ATC-Patient voices adherence to recommended usage: Yes-Symptom control on O2: Less SOB-Counseled patient not begin, restart, or continue smoking, [...] to the point of requiring O2.-Recommendations : No changes today. Continue O2 ATC 12/18/2024 Chronic respiratory failure with hypoxia (ICD-10 - J96.11) Adgo-rv-idfe encounter performed with the patient to document [...] RANCHO (obstructive sleep apnea) (ICD-10 - G47.33) Mtip-hc-fsej encounter performed with the patient to document continued need for PAP therapy. -Current DME: GFV-Sveun-ngueh 02/23/2023 AHI 20; BiPAP titration: 30/04 -Compliance was reviewed from 02/11/2024 - 03/11/2024-Total days used: 30/ (100%)-Total of all days >4 hours of use: 29/30 (97%)-Current model, mode, & pressure: AirCurve 10 VAuto-Residual AHI: 0.3-Air leak (95th percentile): 39.6L/min-Mask/harn ess fitting: Has a leak from the anderson-Sleep quality: Makes me sleep really good. -Daytime hypersomnolence: Decreased with PAP use-Recommendations : Continues to have excellent compliance and voices no issues.-Note: This cord-zk-aemp visit comes with my authorization that the patient's DME may request to renew, reorder, and/or replace tubing, supplies, mask, and/or PAP device (if applicable). 09/19/2024 RANCHO (obstructive sleep apnea) (ICD-10 - G47.33) Previously addressed: Bxyc-gq-abcr encounter performed with the patient to document continued need for PAP therapy. -Current DME: [facility]GE-Myqdi-vzxgs 02/23/2023 AHI 20; BiPAP titration: 30/04 -Compliance was reviewed from 02/11/2024 - 03/11/2024-Total days used: 30 (100%)-Total of all days >4 hours of use: 0/30 (100%)-Current model, mode, & pressure: AirCurve 10 VAuto-Residual AHI: 0.4-Air leak (95th percentile): 85.5L/min-Mask/harn ess fitting: Decent - leaks d/t facial contour and anderson-Sleep quality: Improved with PAP use-Daytime hypersomnolence: Decreased with PAP use-Recommendations : Superb compliance with voiced benefit with use. Patient voices no concerns toay.-Note: This pyqm-qx-haab visit comes with my authorization that the patient's DME may request to renew, reorder, and/or replace tubing, supplies, mask, and/or PAP device (if applicable). 06/20/2024 Diabetes mellitus type 2, controlled (ICD-10 - E11.9) Goal is to eventually get patient off steroids d/t underlying DM2. 03/14/2024 Diabetes mellitus type 2, controlled (ICD-10 - E11.9) Goal is to eventually get patient off steroids d/t underlying DM2. 03/14/2024 Obesity (ICD-10 - E66.9) Discussed weight loss. Already on Ozempic. Discussed calories in, caloriies out. [place] and other lower diest were dicsussed. 06/20/2024 Obesity (ICD-10 - E66.9) Continue losing weight. 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 Monitor for hyperglycemia. 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 Monitor for hyperglycemia. 12/18/2024 Obesity (ICD-10 - E66.9) Weight loss advised. 09/19/2024 Obesity (ICD-10 - E66.9) Weight loss advised. 06/20/2024 USP (current) use of systemic steroids (ICD-10 - Z79.52) Discussed adverse effects of fci systemic steroids including, but not limited to: increased risk of cataracts, elevated blood sugars/worsening of underlying diabetes mellitus, impaired wound healing, gastrointestinal ulcers, osteoporosis. 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 12/18/2024 USP (current) use of systemic steroids (ICD-10 - Z79.52) Discussed adverse effects of fci systemic steroids including, but not limited to: increased risk of cataracts, elevated blood sugars/worsening of underlying diabetes mellitus, impaired wound healing, gastrointestinal ulcers, osteoporosis. 12/18/2024 USP (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 (ICD-10 - Z79.51) Patient was counseled to rinse & gargle with water after inhaled corticosteroid use. 09/19/2024 USP (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 (ICD-10 - Z79.51) Patient was counseled to rinse & gargle with water after inhaled corticosteroid use. 06/20/2024 History of tobacco abuse (ICD-10 - Z87.891) 3ppd x 40 years (120 pack-years), quit 2012 3ppd x 40 years (120 pack-years), quit 2012 LDCT due 12/2024. 03/14/2024 History of tobacco abuse (ICD-10 - Z87.891) 3ppd x 40 years (120 pack-years), quit 2012 3ppd x 40 years (120 pack-years), quit 2012 LDCT 01/13/24 compared to 12/22/2022 showed no change in patient scarring RADS-2. Annual low-dose CT screening will be due December 2024. Patient voiced agreement 03/14/2024 History of COVID-19 (ICD-10 - Z86.16) Had COVID-19 again 10/16/2023. 09/19/2024 History of tobacco abuse (ICD-10 - Z87.891) 3ppd x 40 years (120 pack-years), quit 2012 3ppd x 40 years (120 pack-years), quit 2012 LDCT due 12/2024. 12/18/2024 History of tobacco abuse (ICD-10 - Z87.891) 3ppd x 40 years (120 pack-years), quit 2012 3ppd x 40 years (120 pack-years), quit 2012 LDCT due 12/2024. 03/14/2024 Encounter for screening for malignant neoplasm of respiratory organs (ICD-10 - Z12.2) 06/20/2024 Other Had COVID-19 again 10/16/2023. 09/19/2024 Other Plan Of Treatment Future Test Test Name Order Date CT Chest Low Dose for Screening* 025 Insurance Providers Payer Name Payer Address Payer Phone Subscriber Number Group Number Insured Name Patient Relationship to Insured Coverage Start Date Coverage End Date 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
--- OUTSIDE RECORDS SUMMARY | 2025-02-03 07:44 | XMS_ITS | Clinical Summary ---
Author Organization [facility] Address [address] [place] [address] Phone Care Team Providers Care Sheet Metal Duct Installer Apprentice Name Role Phone Unavailable Primary Care Provider Unavailabl e Social History Tobacco Use Types Packs/Day Years Used Date Smoking Tobacco: Never Assessed Sex and Gender Information Value Date Recorded Sex Assigned at Not on file Legal Sex Male 9:22 PM EST Gender Identity Not on file Sexual Orientation Not on file Plan of Treatment Not on file
--- OUTSIDE RECORDS SUMMARY | 2025-02-03 07:44 | XMS_ITS | Encounter Summary ---
Author Organization [facility] Address [address] [place] [address] Care Team Providers Care Chandelier Maker Name Role Phone Janet Benavides MD Primary Care Provider [phone] Douglas Pacheco DO Unavailable [phone] Source Comments In the event this information is protected by the Federal Confidentiality of Alcohol and Drug AbusePatient Records regulations: The Federal rules restrict any use of the information to criminally investigate or prosecute any alcohol or drug abuse patient.[facility] Reason for Visit * Reason Comments New Eval Chart Prep Encounter Details Date Type Department Care Team (Late st Contact Info) Description 03/18/2021 Abstract Pulmonary Medicine [address] [place] [address] Idalmis Bai RN New Eval Chart Prep Social History Tobacco Use Types Packs/Day Years Used Date Smoking Tobacco: Never Assessed Area Deprivation Index Answer Date Chirag rded National Score (1-100), lower number is lower ri sk Not on file 03/18/2021 State Score (1-10), lower number is lower risk N ot on file 03/18/2021 Data from: https://www.neighborhoodatlas.medicine.[facility].edu/. Last address used for calculation Not on file 03/18/2021 Sex and Gender Information Value Date Recorded Sex Assigned at Not on file Legal Sex Male 8:40 AM EDT Gender Identity Male 03/17/2021 10:03 PM EDT Sexual Orientation Straight 03/17/2021 10 :03 PM EDT COVID-19 Exposure Response Date Recorded In the last month, have you been in contact with someone who was confirmed or suspected to have Coronavirus / COVID-19? Unable to assess 03/18/2021 9:10 AM EDT documented as of this encounter Plan of Treatment Upcoming Encounters Date Type Department Care Team (Late st Contact Info) Description 03/11/2025 12:15 PM EDT Procedure Pulmonary Medicine [id number] [place] [address] Stage 4 copd 03/11/2025 12:45 PM EDT Procedure Pulmonary Medicine [id number] [place] [address] Stage 4 copd 03/11/2025 1:45 PM EDT Office Visit Pulmonary Medicine [id number] [place] [address] [place] [address] [place] [address] Stage 4 copd documented as of this encounter Visit Diagnoses Not on filedocumented in this encounter Care Teams Chandelier Maker Relationship Specialty Start Date End Date Janet Benavides MD [address] [place] [phone] PCP - General Family Medicine 03/12/20 Douglas Pacheco DO [address] [place] [phone] Referring Pulmonary and Critical Care Medicine 03/12/20 documented as of this encounter
--- OUTSIDE RECORDS SUMMARY | 2025-02-03 07:44 | XMS_ITS | Encounter Summary ---
Author Organization [facility] Address [address] [place] [address] Care Team Providers Care Acquisitions Logistics Analyst Name Role Phone Zayra Peterson VACUUM FILTER OPERATOR-C Primary Care Provider [phone] Reason for Referral * Cardiac Stress Testing (Routine) - Pending Review Specialty Diagnoses / Procedures Referred By Anthony gomez Referred To Contact Cardiology Diagnoses Tachycardia Procedures Cardiac event monitor Calli Devlin MD [address] [facility] [address] [facility] [place] [address] Phone: tel: fax: Referral ID Status Reason Start Date Expiration Date V isits Requested Visits Authorized [id number] Pending Review 01/24/2025 01/24/2026 1 1 Encounter Details Date Type Department Care Team (Late st Contact Info) Description 01/24/2025 Orders Only [facility] [address] [place] [address] Racheal Joshi MA Tachycardia (Primary Dx) Social History Tobacco Use Types Packs/Day Years [...] Description 03/13/2025 1:00 PM EDT Office Visit [facility] [address] [place] [phone] Calli Devlin MD [address] [facility] [place] [phone] Scheduled Orders Name Type Priority Associated Diagnoses Orde r Schedule Cardiac event monitor Cardiac Services Routine Tachycardia Expected: 01/24/2025 (Approximate), Expires: 01/24/2027 documented as of this encounter Visit Diagnoses Diagnosis Tachycardia- Primary Unspecified tachycardia documented in this encounter Care Teams Acquisitions Logistics Analyst Relationship Specialty Start Date End Date Zayra Peterson FNP-C [address] [place] [address] PCP - General Nurse Practitioner 01/24/25 documented as of this encounter
--- OUTSIDE RECORDS SUMMARY | 2025-02-03 07:44 | XMS_ITS | Encounter Summary ---
Author Organization [facility] Address [address] [place] [address] Care Team Providers Care Addresser Name Role Phone Zayra Peterson WELL SERVICES OPERATOR-C Primary Care Provider [phone] Encounter Details Date Type Department Care Team (Late st Contact Info) Description 01/23/2025 Orders Only [address] [address] ProviderSalina MD [address] [place] [address] Social History Tobacco Use Types Packs/Day Years [...] Description 03/13/2025 1:00 PM EDT Office Visit [address] [address] Calli Devlin MD [address] [facility] [address] [facility] [place] [phone] documented as of this encounter Procedures Procedure Name Priority Date/Time Associated Diagnosis Comments PULMONARY FUNCTION TESTING Routine 11/14/2023 1:05 PM EDT documented in this encounter Results * Pulmonary function testing (11/14/2023 1:05 PM EDT) Anatomical Region Laterality Modality Other us Historical Provider PFT ORDERABLES Final Res ult documented in this encounter Visit Diagnoses Not on filedocumented in this encounter Care Teams Addresser Relationship Specialty Start Date End Date Zayra Peterson FNP-C [address] [place] [address] PCP - General Nurse Practitioner 01/24/25 documented as of this encounter
--- OUTSIDE RECORDS SUMMARY | 2025-02-03 07:44 | XMS_ITS | Clinical Summary ---
Author Organization [facility] Address [address] [place] [address] Care Team Providers Care Traffic Representative Name Role Phone Janet Benavides MD Primary Care Provider [phone] Douglas Pacheco DO Unavailable Allergies Active Allergy Reactions Criticality Noted Date Comments Metformin Intolerance 03/25/2021 diarrhea Medications ARIPiprazole (ABILIFY) 10 mg tablet Take 10 mg by mouth once daily. 1 Active aspirin, enteric coated (ASPIRIN, ENTERIC COATED) 81 mg EC tablet Take 81 mg by mouth once daily. 1 Active FREESTYLE MARTIN 2 SENSOR kit as directed. 1 Active TRELEGY ELLIPTA 100-62.5-25 mcg INHALE 1 PUFF BY MOUTH DAILY 1 Active glipiZIDE (GLUCOTROL) 10 mg tablet Take 10 mg by mouth twice daily. 1 Active HYDROcodone-ac etaminophen (NORCO) 5-325 mg per tablet TAKE 1 TABLET BY MOUTH FOUR TIMES A DAY NEEDED 1 Active COMBIVENT RESPIMAT 20-100 mcg/actuation inhaler INHALE 1 PUFF BY MOUTH 4 TIMES A DAY 1 Active metoprolol succinate ER (TOPROL XL) 25 mg 24 hr tablet Take 25 mg by mouth once daily. 1 Active omeprazole (PRILOSEC) 20 mg capsule Take 20 mg by mouth once daily. 1 Active OZEMPIC 0.25 mg or 0.5 mg(2 mg/1.5 mL) pnij INJECT 0.5MG SUBCUTANEOUSLY WEEKLY 1 Active theophylline ER (UNIPHYL) 400 mg 24 hr tablet Take 400 mg by mouth twice daily. 1 Active valACYclovir (VALTREX) 1 gram Take 2,000 mg by mouth twice daily. 1 Active VENLAFAXINE ER 150 MG TABLET,EXTENDE D RELEASE 24 HR Take 150 mg by mouth twice daily. 1 Active gemkl-1-bucpyv nase inhibitor (Human) 1,000 mg in water for injection Inject 1,000 mg intravenously one time a week. 1 Active pravastatin (PRAVACHOL) 40 mg tablet Take 1 tablet by mouth daily at bedtime. 1 Active predniSONE (DELTASONE) 10 mg tablet Take 1 tablet by mouth once daily. 1 Active guaiFENesin (MUCINEX) 600 mg 12 hr tablet Take 2 tablets by mouth twice daily. 1 Active dilTIAZem CD (CARDIZEM CD) 240 mg 24 hr capsule Take 1 capsule by mouth once daily. 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 Essential hypertension 02/14/2019 Chronic obstructive pulmonary disease 01/17/2019 Encounters Date Type Department Care Team Description 11/04/2024 [place] [id number] Provider, [facility] Medicare Coverage of Physical Exams from Last 3 Months Social History Tobacco Use Types Packs/Day Years Used Date Smoking Tobacco: Never Assessed Area Deprivation Index Answer Date Chirag rded National Score (1-100), lower number is lower ri sk Not on file 03/18/2021 State Score (1-10), lower number is lower risk N ot on file 03/18/2021 Data from: https://www.neighborhoodatlas.medicine.[facility].edu/. Last address used for calculation Not on file 03/18/2021 Sex and Gender Information Value Date Recorded Sex Assigned at Not on file Legal Sex Male 8:40 AM EDT Gender Identity Male 03/17/2021 10:03 PM EDT Sexual Orientation Straight 03/17/2021 10 :03 PM EDT Last Filed Vital Signs Vital Sign Reading Time Taken Comments Blood Pressure 139/85 03/25/2021 1:59 PM EDT Pulse 77 03/25/2021 1:59 PM EDT Temperature 36.3 C (97.3 F) 03/25/2021 1:59 PM EDT Respiratory Rate - - Oxygen Saturation 98% 03/25/2021 1:5 9 PM EDT pt on 2 liters Inhaled Oxygen Concentration - - Weight 96.2 kg (212 lb 1.3 oz) 03/25/2021 1:59 PM EDT Height 175.3 cm (5' 9.02 ) 03/25/2021 1 :59 PM EDT Body Mass Index 31.3 03/25/2021 1:59 PM EDT Plan of Treatment Upcoming Encounters Date Type Department Care Team (Late st Contact Info) Description 03/11/2025 12:15 PM EDT Procedure Pulmonary Medicine [address] [place] [address] Stage 4 copd 03/11/2025 12:45 PM EDT Procedure Pulmonary Medicine [address] [place] [address] Stage 4 copd 03/11/2025 1:45 PM EDT Office Visit Pulmonary Medicine [address] [place] [address] [place] [address] [place] [address] Stage 4 copd Health Maintenance Due Date Last Done Comments Anxiety Screening 11/04/1977 Depression Screening 11/04/1977 DTaP,Tdap,Td Vaccine (1 - Tdap) 11/04/1978 Shingrix Vaccine (1 of 2) 11/04/1978 CT Colonography 11/04/2004 Cologuard (FIT-DNA) 11/04/2004 Colonoscopy 11/04/2004 Colorectal Cancer Screening 11/04/2004 Fecal Occult Blood 11/04/2004 Prostate Cancer Screening Discussion 11/04/2004 Sigmoidoscopy 11/04/2004 Pneumococcal Vaccine: 50+ (2 of 2 - PPSV23) 07/05/2018 05/10/2018 Covid-19 Vaccine ( season) 2024 Diabetes Screening 03/24/2024 03/24/2021 Advance Directive Discussion 11/04/2024 Influenza Vaccine (#1) 2025 05/16/2020, 2017 Lipid Screening 03/24/2026 03/24/2021 RSV Vaccine (1 - 1-dose 75+ series) 11/04/2034 HIV Screening Completed 03/24/2021 Hepatitis C Screening Completed 03/24/2021 Procedures Procedure Name Priority Date/Time Associated Diagnosis Comments HIV 1/2 COMBO WITH REFLEX TO DIFFERENTIATION Routine 03/24/2021 3:44 PM EDT Shortness of breath Lung transplant candidate Bone disorder 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 term care 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 (current) use of systemic steroids Chronic fatigue SOB (shortness of breath) Centrilobular emphysema (HCC) *HEP C AB Routine 03/24/2021 3:44 PM EDT Shortness of breath Lung transplant candidate Bone disorder 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 term care 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 (current) use of systemic steroids Chronic fatigue SOB (shortness of breath) Centrilobular emphysema (HCC) COMPREHENSIVE METABOLIC PANEL Routine 03/24/2021 3:44 PM EDT Shortness of breath Lung transplant candidate Bone disorder [facility] (current) use of systemic steroids Chronic fatigue SOB (shortness of breath) Centrilobular emphysema (HCC) LIPID PANEL, FASTING Routine 03/24/2021 3:44 PM EDT Shortness of breath Lung transplant candidate Bone disorder [facility] (current) use of systemic steroids Chronic fatigue SOB (shortness of breath) Centrilobular emphysema (HCC) from Last 3 Months or Most Recently Relevant to Health Maintenance Results * HIV 1 2 COMBO(AG/AB),WITH REFLEX TO DIFFERENTIATION (03/24/2021 3:44 PM EDT) HIV 12 Combo (Ag/Ab) Non Reactive Non Reactive 03/24/2021 6:36 PM EDT [facility] HIV-1/2 AB Test Not Indicated 03/24/2021 6:36 PM EDT [facility] HIV Interpretation Negative 03/24/2021 6:36 PM EDT [facility] Comment: No evidence of HIV-1 or HIV-2 infection. Should recent infection be suspected, repeat testing may be considered 2-3 weeks after this draw. HIV Information: [place] Rev. Code 3701.243(E): This information has been disclosed to you from confidential records protected from disclosure by state law. You shall make no further disclosure of this information without the specific, written, and informed release of the individual to whom it pertains or as otherwise permitted by state law. A general authorization for the release of medical or other information is not sufficient for the purpose of the release of HIV test results or diagnoses. Blood BLOOD SPECIMEN / Unknown 03/24/2021 3:44 PM EDT 03/24/2021 3:46 PM EDT Carol Ann Ybarra DO LABORATORY Final Result [facility] [address] [facility] [place] [address] [facility] [address] [place] [address] * (ABNORMAL) LIPID PANEL BASIC (03/24/2021 3:44 PM EDT) Cholesterol, Total 220(H) <200 mg/dL 03/24/2021 6:37 PM T [facility] Comment: <200 mg/dL, Desirable 200-239 mg/dL, Borderline high >239 mg/dL, High Triglyceride 244(H) <150 mg/dL 03/24/2021 6:37 PM EDT [facility] Comment: <150 mg/dL, Normal 150-199 mg/dL, Borderline high 200-499 mg/dL, High >499 mg/dL, Very high HDL Cholesterol 99 >39 mg/dL 6:37 PM T [facility] Comment: 40-59 mg/dL, Acceptable >59 mg/dL, High: Negative risk factor for coronary heart disease <40 mg/dL, Low: Positive risk factor for coronary heart disease LDL Cholesterol, Calculated 72 <100 mg/dL 03/24/2021 6:37 PM EDT [facility] Comment: <100 mg/dL, Optimal 100-129 mg/dL, Near optimal/above optimal 130-159 mg/dL, Borderline high 160-189 mg/dL, High >189 mg/dL, Very high Secondary prevention optimal LDL Cholesterol levels are recommended to be < 70 mg/dL Non HDL Cholesterol 121 <130 mg/dL 03/24/2021 6:37 PM EDT [facility] Comment: <130 mg/dL, Optimal 130-159 mg/dL, Near optimal/above optimal 160-189 mg/dL, Borderline high 190-219 mg/dL, High >219 mg/dL, Very high Secondary prevention optimal non HDL Cholesterol levels are recommended to be < 100 mg/dL Fasting Time Unknown hrs 03/24/2021 6:37 PM EDT [facility] VLDL Cholesterol 49(H) <30 mg/dL 03/24/20 6:37 PM EDT [facility] TC:HDL Ratio 2.22 <5.10 03/24/2021 6:37 PM EDT [facility] LDL:HDL Ratio 0.73 <2.54 03/24/2021 6:37 PM EDT [facility] Comment: Reference: 1. National Cholesterol Education Program ATP III Guideline At-A-Glance Quick Desk Reference: National Heart, Lung, and Blood [place]. National Institutes of Health. 2001: NIH Publication No. 01-3305. 2. An International Atherosclerosis Society position paper: global recommendations for the management of dyslipidemia: executive summary, Atherosclerosis. 2014: 232(2):410-413. Blood BLOOD SPECIMEN / Unknown 03/24/2021 3:44 PM EDT 03/24/2021 3:46 PM EDT us Carol Ann Ybarra DO LABORATORY Final Result [facility] [address] [facility] [place] [address] [facility] [address] [place] [address] * (ABNORMAL) HEP REMOTE PANEL BL (03/24/2021 3:44 PM EDT) Hep B Core Ab, Total Negative Negative 03/24/2021 6:57 PM EDT [facility] Hep C Antibody IA Negative Negative 03/24/2021 6:58 PM EDT [facility] HBsAg Negative Negative 03/24/2021 6:57 PM EDT [facility] Hep B Surface Ab, Qual Positive(A) Negative 03/24/2021 6:57 PM EDT [facility] Comment: These results are consistent with previous exposure and/or immunity to the hepatitis B virus antigen. Blood BLOOD SPECIMEN / Unknown 03/24/2021 3:44 PM EDT 03/24/2021 3:46 PM EDT us Carol Ann Ybarra DO LABORATORY Final Result [facility] [address] [place] [address] [facility] [address] [place] [address] * COMP METABOLIC PANEL (03/24/2021 3:44 PM EDT) Protein, Total 6.9 6.3 - 8.0 g/dL 03/24/2021 6:37 PM EDT [facility] Albumin 4.3 3.9 - 4.9 g/dL 03/24/2021 6:37 PM EDT [facility] Calcium 9.5 8.5 - 10.2 mg/dL 03/24/2021 6:37 PM EDT [facility] Bilirubin, Total 0.3 0.2 - 1.3 mg/dL 03/24/2021 6:37 PM EDT [facility] Alkaline Phosphatase 85 38 - 113 U/L 03/24/2021 6:37 PM EDT [facility] AST 17 14 - 40 U/L 03/24/2021 6:37 PM EDT [facility] Glucose 93 74 - 99 mg/dL 03/24/2021 6:37 PM EDT [facility] Comment: The [place] Diabetes Association (ADA) provides guidance for cutoff values for fasting glucose and random glucose. The ADA defines fasting as no caloric intake for at least 8 hours. Fasting plasma glucose results between 100 to 125 mg/dL indicate increased risk for diabetes (prediabetes). Fasting plasma glucose results greater than or equal to 126 mg/dL meet the criteria for diagnosis of diabetes. In the absence of unequivocal hyperglycemia, results should be confirmed by repeat testing. In a patient with classic symptoms of hyperglycemia or hyperglycemic crisis, random plasma glucose results greater than or equal to 200 mg/dL meet the criteria for diagnosis of diabetes. Reference: Standards of Medical Care in Diabetes 2016, [place] Diabetes Association. Diabetes Care. 2016.39(Suppl 1). BUN 13 9 - 24 mg/dL 03/24/2021 6:37 PM EDT [facility] Creatinine 0.93 0.73 - 1.22 mg/dL 03/24/2021 6:37 PM EDT [facility] Sodium 139 136 - 144 mmol/L 03/24/2021 6:37 PM T [facility] Potassium 4.2 3.7 - 5.1 mmol/L 03/24/2021 6:37 PM T [facility] Chloride 102 97 - 105 mmol/L 03/24/2021 6:37 PM T [facility] CO2 25 22 - 30 mmol/L 03/24/2021 6:[address] [facility] Anion Gap 12 9 - 18 mmol/L 03/24/2021 6:37 PM T [facility] ALT 14 10 - 54 U/L 03/24/2021 6:37 PM T [facility] eGFR- >60 03/24/2021 6:37 PM [facility] eGFR-All Other Races >60 . 03/24/2021 6:[address] [facility] Comment: eGFR (Estimated GFR) Units of measure: mL/min/1.73 meters squared eGFR is derived from the reexpressed MDRD Study equation using the following parameters: serum creatinine, age, gender and race. The creatinine assay has been calibrated to be traceable to IDMS. An eGFR <60 mL/min/1.73m2 for >3 months is consistent with chronic kidney disease. Refer to KDOQI guidelines for clinical interpretation. In patients with unstable renal function, e.g. those with acute kidney injury, the eGFR may not accurately reflect actual GFR. Blood BLOOD SPECIMEN / Unknown 03/24/2021 3:44 PM EDT 03/24/2021 3:46 PM EDT us Carol Ann M Budev DO LABORATORY Final Result [facility] [address] [place] [address] [facility] [address] [place] [address] from Last 3 Months or Most Recently Relevant to Health Maintenance Insurance [facility] DUAL COMPLETE HMO POS SNP Care Teams Traffic Representative Relationship Specialty Start Date End Date Janet Benavides MD [address] [place] [id number] PCP - General Family Medicine 03/12/20 Douglas Pacheco DO [address] [place] [address] Referring Pulmonary and Critical Care Medicine 03/12/20
--- OUTSIDE RECORDS SUMMARY | 2025-02-03 07:44 | XMS_ITS | Clinical Summary ---
Author Organization [facility] Address [address] [place] [address] Care Team Providers Care Fabrication Technician Name Role Phone Zayra Peterson DEPUTY FELONY CLERK-C Primary Care Provider [phone] Allergies Active Allergy Reactions Criticality Noted Date Comments Metformin Diarrhea,GI intolerance 03/25/2021 diarrhea Medications alpha1-protein ase inhibitor (Prolastin-C) infusion Infuse 60 mg/kg into a venous catheter 1 (one) time per week. Active Trelegy Ellipta 100-62.5-25 mcg blister with device INHALE 1 PUFF BY MOUTH EVERY DAY RINSE MOUTH AFTER USE for 90 1 Active albuterol 90 mcg/actuation inhaler 2 puffs as needed for SOB Inhalation Q4H for 90 days Active ARIPiprazole (Abilify) 10 mg tablet Take 10 mg by mouth 1 (one) time each day at the same time. Active Jardiance 25 mg Take 25 mg by mouth in the morning. Active glipiZIDE (Glucotrol) 10 mg tablet Take 10 mg by mouth 1 (one) time each day at the same time. Active dextromethorph an-guaiFENesin (Mucinex DM) 30-600 mg 12 hr tablet Take 1 tablet by mouth every 12 (twelve) hours. Active hydrOXYzine HCL (Atarax) 50 mg tablet Take 1 tablet by mouth every 8 (eight) hours if needed for anxiety. 5 Active ipratropium-al buteroL (Duo-Neb) 0.5-2.5 mg/3 mL nebulizer solution every 6 (six) hours. Active omeprazole (PriLOSEC) [address] capsule Take 20 mg by mouth before breakfast. Active pravastatin (Pravachol) 80 mg tablet Take 80 mg by mouth at bedtime. Active predniSONE (Deltasone) 20 mg tablet Take 20 mg by mouth in the morning. Active Ozempic 0.25 mg or 0.5 mg (2 mg/3 mL) pen injector INJECT 0.5 MG SUBCUTANEOUSLY ONE TIME PER WEEK Active theophylline ER (Abundio-Dur) 450 mg 12 hr tablet Take 1 tablet by mouth Twice daily at 6am and 6pm. Active venlafaxine (Effexor) 150 mg 24 hr tablet Take 150 mg by mouth with breakfast. Active Active Problems Problem Noted Date Diagnosed Date Centrilobular emphysema 01/24/2025 Acute exacerbation of chronic obstructive airway s disease 01/24/2025 Type 2 diabetes mellitus without complications 0 01/24/2025 Former tobacco use 01/24/2025 Generalized anxiety disorder 01/24/2025 History of COVID-19 01/24/2025 Leukocytosis 01/24/2025 skilled nursing (current) use of systemic steroids 04/2025 skilled nursing current use of inhaled steroid 025 intermediate accountant current use of insulin 01/24/2025 Obesity 01/24/2025 Bipolar 1 disorder 03/25/2021 Depression 03/25/2021 GERD (gastroesophageal reflux disease) Obstructive sleep apnea syndrome 03/25/2021 Ffxap-7-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 Chronic respiratory failure with hypoxia 021 Left ventricular systolic dysfunction 12/23/2020 Diabetes mellitus 02/14/2019 Essential hypertension 02/14/2019 Coronary atherosclerosis 01/17/2019 Chest pain 12/04/2018 Dyspnea 12/04/2018 Encounters Date Type Department Care Team Description 01/24/2025 2:00 PM EDT Office Visit [address] [address] Calli Devlin MD Chronic respiratory failure with hypoxia (CMS/HCC) (Primary Dx); Uunhj-8-btilvvfbdsg deficiency (CMS/HCC); Essential hypertension; intermediate accountant current use of inhaled steroid; SVT (supraventricular tachycardia); Non-ischemic cardiomyopathy (CMS/HCC) 01/24/2025 Orders Only [facility] [address] [place] [facility] [place] [address] Vianney Davis MA SVT (supraventricular tachycardia) (Primary Dx); PIKE (dyspnea on exertion) 01/24/2025 Refill [facility] [address] [place] [facility] [place] [address] Racheal Joshi MA 01/24/2025 Orders Only [facility] [address] [place] [facility] [place] [address] Racheal Joshi MA Tachycardia (Primary Dx) 01/23/2025 Orders Only [facility] [address] [place] [address] Provider, MD [place] from Last 3 Months Family History Medical History Relation Name Comments Hypertension Mother Relation Name Status Comments Mother Social History Tobacco Use Types Packs/Day Years [...] on file Sexual Orientation Not on file Last Filed Vital Signs Vital Sign Reading [...] Mass Index 34.7 01/24/2025 2:17 PM EDT Plan of Treatment Upcoming Encounters Date Type Department Care Team (Late st Contact Info) Description 03/13/2025 1:00 PM EDT Office Visit [facility] [address] [place] [facility] [place] [id number] Calli Devlin MD [address] [place] [address] Health Maintenance Due Date Last Done Comments CT Colonography 1959 Colonoscopy 1959 Colorectal Cancer Screening 1959 Diabetes: Hemoglobin A1C 1959 FIT-DNA 1959 FIT 1959 FOBT 1959 Medicare Initial Physical (IPPE) 1959 Sigmoidoscopy 1959 Diabetes: Retinopathy Screening 11/04/1969 Depression Screening 1971 Diabetes: Urine Protein Screening 11/04/1978 Adult Tetanus 11/04/1981 Zoster Vaccines (1 of 2) 11/04/2009 Pneumococcal Vaccine: 50+ Years (2 of 2 - PPSV23, PCV20, or PCV21) 07/05/2018 05/10/2018 COVID-19 Vaccine ( - 2023-2 5 season) 2024 Fall Risk Screening 11/04/2024 Influenza Vaccine (#1) 2025 , 05/16/2020, 05/10/2018 HIB Vaccines Aged Out No longer eligi ble based on patient's age to complete this topic HPV Vaccines Aged Out No longer eligi ble based on patient's age to complete this topic IPV Vaccines Aged Out No longer eligi ble based on patient's age to complete this topic Meningococcal B Vaccine Aged Out No l onger eligible based on patient's age to complete this topic Meningococcal Vaccine Aged Out No serene eduardo eligible based on patient's age to complete this topic Rotavirus Vaccines Aged Out No longer eligible based on patient's age to complete this topic Insurance [facility] Care Teams Fabrication Technician Relationship Specialty Start Date End Date Zayra Peterson FNP-C [address] [place] [address] PCP - General Nurse Practitioner 01/24/25
--- OUTSIDE RECORDS SUMMARY | 2025-02-03 07:45 | XMS_ITS | CCD ---
Author Organization [facility] CliniSymo Care Team Providers Care Folder Stitcher Operator Name Role Phone ELTAHAWY, EHAB A Admitting Unavailable ELTAHAWY, EHAB A Attending Unavailable BRYON COWART Unavailable ELTAHAWY, EHAB A Primary Care Unavailable Bryon Cowart MD Primary Care Provider Sam DO, Vanda P Unavailable [phone] Bryon Cowart Unavailable SAMSA ., VANDA Admitting Unavailable SAMSA ., VANDA Attending Unavailable DR BRYON COWART Primary Care Unavailable DR BRYON COWART Primary Care Unavailable HEBERT JURADO Consulting Unavailable HEBERT JURADO Attending Unavailable RHIANNON, HEBERT Admitting Unavailable SOLA SHELL Consulting Unavailable DR BRYON COWART Primary Care Unavailable BENI .JAYDA Consulting Unavailable BENI ., JAYDA Attending Unavailable BENI ., JAYDA Admitting Unavailable GERARD ESPANA Consulting Unavailable MONTAGUE ., DR EVERETTE Richey Consulting Unavailable MONTAGUE ., DR EVERETTE Richey Attending Unavailable MONTAGUE ., DR EVERETTE Richey Admitting Unavailable DR BRYON COWART Primary Care Unavailable JAYDA MCCORMICK Consulting Unavailable , BERTA Consulting Unavailable YADIRA BALLESTEROS Consulting Unavailable DR BRYON COWART Primary Care Unavailable MONTAGUE ., DR EVERETTE Richey Consulting Unavailable MONTAGUE ., DR EVERETTE Richey Attending Unavailable MONTAGUE ., DR EVERETTE Richey Admitting Unavailable GRECHNY .JOSE Consulting Unavaildemetria e HEBERT JURADO Consulting Unavailable OSLA SHELL Consulting Unavailable SISTER, BERTA Consulting Unavailable DR BRYON COWART Primary Care Unavailable SAMSA ., VANDA Attending Unavailable SAMSA ., VANDA Admitting Unavailable DR BRYON COWART Primary Care Unavailable SAMSA ., VANDA Attending Unavailable SAMSA ., VANDA Admitting Unavailable SAMSA ., VANDA Admitting Unavailable SAMSA ., VANDA Consulting Unavailable SAMSA ., VANDA Attending Unavailable DR BRYON COWART Primary Care Unavailable COWART, DR BRYON Richey Primary Care Unavailable COWART, DR BRYON Richey Consulting Unavailable SOFYA, DR BRYON Richey Attending Unavailable SOFYA, DR BRYON Richey Admitting Unavailable SOFYA, DR BRYON Richey Primary Care Unavailable SAI, DR JUSTINE Mendoza Consulting Unavailable SAI, DR JUSTINE Mendoza Attending Unavailable GIBBS, DR JUSTINE Mendoza Admitting Unavailable GERARD WOLFF Consulting Unavailable SOLO, H Attending Unavailable SOLO, JEAN H Admitting Unavailable CUCO Moreno, JOSE ESPINO Consulting Unavaildemetria e SOFYA, DR BRYON Richey Primary Care Unavailable DAVID GIBBS Consulting Unavailable Rubén Pina Unavailable Bryon Cowart MD Primary Care Provider Vanda Gonzalez DO Unavailable [phone] SARAH TRIVEDI Primary Care Physician [phone] Pranay Bai MD Emergency Provider [phone] [facility] Provider Clifton Calderon MD Admit Provider Clifton Calderon MD Attending Provider [phone] Eden Greenwood MD Attending Provider Sarah Trivedi Primary Care Unavailable Eden Greenwood Attending Unavailable Clifton Calderon Admitting Unavailable Joo YIP Attending Unavailable Joo YIP Attending Unavailable Joo YIP Attending Unavailable SARAH TRIVEDI Referring Unavailable NGOZI TRIVEDI Attending Unavailabl e SHIKHA, NGOZI Jara Attending Unavailabl e SHIKHA, NGOZI Jara Attending Unavailabl e SHIKHA, NGOZI SMITH A Attending Unavailabl e SHIKHA, NGOZI SMITH A Attending Unavailabl e SHIKHA, NGOZI SMITH A Attending Unavailabl e SHIKAH, NGOZI SMITH A Attending Unavailabl e SHIKHA, NGOZI SMITH A Attending Unavailabl e SHIKHA, NGOZI SMITH A Attending Unavailabl e SHIKHA, NGOZI SARAH A Admitting Unavailabl e SHIKHA, NGOZI SARAH A Attending Unavailabl e SHIKHA, NGOZI SMITH A Admitting Unavailabl e SHIKHA, NGOZI SMITH A Admitting NGOZI Centeno Attending NGOZI Centeno Attending CALLI De Leon Attending Unavailable Allergies Allergy Classification Reported Allergen(s) Allergy Type Date of Onset Reaction(s) Facility (20 sources) metFORMIN; Translations: [metformin] Drug Allergy 1 Intolerance, Diarrhea (finding) [facility] (4 sources) metFORMIN Drug Allergy Diarrhea [employer] Other (1 source) metFORMIN Drug Allergy 2 [facility] Repository (1 source) metFORMIN Drug Allergy 5 [facility] Repository Medications Current Medications Medication Drug Class(es) Dates Sig (Normalized) Sig (Original) 0.25 MG, 0.5 MG Dose 3 ML semaglutide 0.68 MG/ML Pen Injector [Ozempic] (13 sources) Start: 2024 inject 0.5 mg by subcutaneous injection every week Start: 09-11-2024 inject 0.5 mg by sub cutaneous injection every week Start: 12-28-2023 inject 0.5 mg by sub cutaneous injection every week Ozempic 2 mg/3 mL [...] oral tablet (20 sources) Opioid Agonist Start: 10-04-2024 take 1 tablet by mouth four times daily Hydrocodone-Acetaminophen 5-325 mg tablet Active 1 TAB PO Four times daily October 04, 2024 12:00am Start: 09-06-2023 End: 10-04-2024 take 1 tablet by mouth every six hours as needed for pain Hydrocodone-Acetaminophen 5-325 mg table t Discontinued 1 TAB PO Every 6 hours as needed for pain 120 30 October 03, 2023 October 04, 2024 1:40am Start: 08-10-2023 take 1 tablet by beverly [...] BY MOUTH FOUR TIMES A DAY NEEDED 03/02/2021 Active Comment on above: TAKE 1 TABLET BY BEVERLY TH FOUR TIMES A DAY NEEDED [id number] actuat albuterol 0.09 mg/actuat metered dose inhaler (20 sources) beta2-Adrenergic Agonist Start: 10-04-2024 take 1 puff(s) by inhalation twice daily Albuterol Sulfate 90 mcg/actuation HFA aerosol inhaler Active 2 PUFF INHALATION Twice daily October 04, 2024 12:00am Start: 09-14-2023 End: 10-04-2024 take 2.5 mg by inhalation every four to six hours as needed Albuterol Sulfate 2.5 mg /3 mL (0.083 %) solution for nebulization Discontinued 2.5 MG INHALATION EVERY 4-6 HOURS as needed September 14, 2023 1:00am October 04, 2024 1:47am Albuterol Sulfat e (2.5 MG/3ML) 0.083% 3 ml Inhalation q 4 hours as needed dx: J44.9 COPD Active Albuterol Sulfat e (2.5 MG/3ML) 0.083% 3 ml Inhalation q 4 hours as needed dx: J44.9 COPD Active 120 actuat albuterol 0.1 mg/actuat / ipratropium bromide 0.02 mg/actuat inhalation spray (20 sources) Anticholinergic, beta2-Adrenergic Agonist Start: 12-28-2023 take 1 puff(s) by inhalation four times daily Combivent Respimat 20 mcg-100 mcg 1 puff(s), Inhalation, QID, 4 gram, Refill(s) 0 Start Date: 12/28/23 Status: Ordered Quantity: 4.0 Unit: g Repeat number: 1 Start: 02-17-2021 take 20-100 ug by in halation four times daily COMBIVENT RESPIMAT 20-100 mcg/actuation inhaler INHALE 1 PUFF BY MOUTH 4 TIMES A DAY 0 02/17/2021 Active Comment on above: INHALE 1 PUFF BY BEVERLY TH 4 TIMES A DAY alpha 1-proteinase inhibitor, human 1 mg injection (20 sources) Human alpha-1 Proteinase Inhibitor Start: take 1000 mg intravenously every week Alpha-1 Proteinase Inhib.(Hum) 1,000 mg recon soln Active 1000 MG IV every week October 04, 2024 12:00am Start: 09-14-2023 End: 10-04-2024 Alpha-1 Proteinase Inhib.(Hu m) 1,000 mg recon soln Discontinued MG IV As Directed September 14, 2023 1:00am October 04, 2024 1:38am Prolastin-C 1000 MG as directed Intravenous Active ARIPiprazole 10 mg oral tablet (20 sources) Atypical Antipsychotic Start: 07-24-2024 take 1 tablet by mouth once daily aripiprazole 10 mg Tab 10 mg = 1 tab(s), Oral, Daily, # 90 tab(s), Refills(s) 1, Pharmacy: [facility]/pharmacy #[id number], 177, cm, 10/25/24 14:03:00 EDT, Height/Length Dosing, 109.4, kg, 10/25/24 14:03:00 EDT, Weight Dosing Start Date: 11/05/24 Status: Ordered Quantity: 90.0 Unit: tab(s) Repeat number: 2 Start: 12-28-2023 take 1 tablet by beverly th once daily aripiprazole 10 mg Tab 10 mg = 1 tab(s), Oral, Daily, Refills(s) 0 Start Date: 12/28/23 Status: Ordered Start: 11-14-2023 take 1 tablet by beverly th once daily Aripiprazole 10 mg tablet Active 0 .ROUTE .COMPLEX November 14, 2023 2:14pm TAKE 1 TABLET BY MOUTH EVERY DAY Start: 09-14-2023 End: 11-14-2023 take 1 tablet by mouth once daily Aripiprazole 10 mg tablet Discontinued 10 MG PO Daily September 14, 2023 1:00am November 14, 2023 2:14pm Start: 02-27-2021 take 1 tablet by beverly th once daily ARIPiprazole (ABILIFY) 10 mg tablet Take 10 mg by mouth once daily. 0 02/27/2021 Active Comment on above: Take 10 mg by mouth once daily. aspirin 81 mg delayed release oral tablet (11 sources) Platelet Aggregation Inhibitor, Nonsteroidal Anti-inflammatory Drug Start: 12-28-2023 take 1 tablet by mouth once daily aspirin 81 mg Oral EC Tab 81 mg = 1 tab(s), Oral, Daily, Refills(s) 0 Start Date: 12/28/23 Status: Ordered Repeat number: 1 Start: 02-07-2021 take 1 tablet by beverly th once daily aspirin, enteric coated (ASPIRIN, ENTERIC COATED) 81 mg EC tablet Take 81 mg by mouth once daily. 0 02/07/2021 Active Comment on above: Take 81 mg by mouth once daily. azithromycin 250 mg oral tablet (1 source) Macrolide Antimicrobial Start: take 1 tablet by mouth once daily Azithromycin 250 mg tablet Active 250 MG PO Daily 2 October 05, 2024 12:00am start 10/06/24 cephalexin 500 mg oral capsule (1 source) Cephalosporin Antibacterial Start: take 1 capsule by mouth twice daily Cephalexin 500 mg capsule Active 500 MG PO Twice daily 10 October 05, 2024 12:00am cetirizine hydrochloride 10 mg oral tablet (2 sources) Histamine-1 Receptor Antagonist Start: cetirizine 10 mg Tab 10 mg = 1 tab(s), Oral, Daily, PRN for allergy symptoms, # 7 tab(s), Refills(s) 0, samples given to patient (Rx) Start Date: 06/04/24 Status: Ordered Quantity: 7.0 Unit: tab(s) Repeat number: 1 Indication: Allergic rhinitis, unspecified Cpap (Continuous Positive Airway Pressure) (1 source) Start: Cpap (Continuous Positive Airway Pressure) Active 0 .Route September 14, 2023 1:00am As directed Cpap (Continuous Positive Airway Pressure) unit (2 sources) Start: Cpap (Continuous Positive Airway Pressure) unit Active 0 .Route September 14, 2023 1:00am As directed CPAP Machine (20 sources) CPAP Machine As Directed Active cyclobenzaprine hydrochloride 5 mg oral tablet (20 sources) Muscle Relaxant Start: take 1 tablet by mouth twice daily cyclobenzaprine 5 mg Tab 5 mg = 1 tab(s), Oral, BID, Refills(s) 0 Start Date: 12/28/23 Status: Ordered Repeat number: 1 Start: 09-14-2023 take 5 mg by mouth o nce daily at bedtime Cyclobenzaprine Active 5 MG PO Daily at bedtime September 14, 2023 1:00am take 1 tablet by beverly every twenty-four hours Cyclobenzaprine HCl 5 MG 1 tablet at bedtime as needed Orally Once a day Active 24 hr dilTIAZem hydrochloride 240 mg extended release oral capsule (20 sources) Calcium Channel Shivam Start: 09-14-2023 take 1 capsule by mouth once daily Diltiazem Hcl 240 mg capsule,extended release 24hr Active 240 MG PO Daily September 14, 2023 1:00am Start: 03-25-2021 take 1 capsule by [facility] once daily dilTIAZem CD (CARDIZEM CD) 240 mg 24 hr capsule Take 1 capsule by mouth once daily. 0 03/25/2021 Active Comment on above: Take 1 capsule by mo [facility] once daily. doxycycline hyclate 100 mg oral capsule (1 source) Tetracycline-class Drug Start: 11-29-19 End: 12-20-19 take 1 capsule by mouth twice daily doxycycline hyclate 100 mg Cap 100 mg = 1 cap(s), Oral, BID, X 21 day(s), # 42 cap(s), Refills(s) 0, Pharmacy: [facility]/pharmacy #[id number], 177, cm, 10/25/24 14:03:00 EDT, Height/Length Dosing, 109.4, kg, 10/25/24 14:03:00 EDT, Weight Dosing Start Date: 11/28/24 Stop Date: 12/19/24 Status: Ordered Quantity: 42.0 Unit: cap(s) Repeat number: 1 empagliflozin 25 mg oral tablet (20 sources) Sodium-Glucose Cotransporter 2 Inhibitor Start: 10-26-19 take 1 tablet by mouth once daily in the morning Jardiance 25 mg oral tablet 25 mg = 1 tab(s), Oral, qAM, # 90 tab(s), Refills(s) 1, Pharmacy: [facility]/pharmacy #[id number], 177, cm, 10/25/24 14:03:00 EDT, Height/Length Dosing, 109.4, kg, 10/25/24 14:03:00 EDT, Weight Dosing Start Date: 10/25/24 Status: Ordered Quantity: 90.0 Unit: tab(s) Repeat number: 2 Start: 10-25-2023 End: 10-04-2024 take 1 tablet by mouth once daily Empagliflozin (Jardiance) 25 mg tablet Discontinued 0 .ROUTE .COMPLEX October 25, 2023 2:51pm October 04, 2024 1:40am TAKE 1 TABLET BY MOUTH EVERY DAY Start: 09-14-2023 End: 10-25-2023 take 1 tablet by mouth once daily Empagliflozin 25 mg tablet Discontinued 25 MG PO Daily September 14, 2023 1:00am October 25, 2023 2:52pm take 1 tablet by beverly th once daily Jardiance 25 mg TAKE 1 TABLET BY MOUTH DAILY for 30 Active Seaonlnfdul-Exsbdcyjb-Ammjqm er (8 sources) Anticholinergic, Corticosteroid, beta2-Adrenergic Agonist Start: 10-04-2024 Xapxbvmjlcv-Piubgtbwp-Lruebd er (Trelegy Ellipta) 100-62.5-25 mcg blister with device Active 1 INH INHALATION Daily at 0630 October 04, 2024 12:00am Start: 02-17-2021 take 1 puff(s) by mo uth once daily TRELEGY ELLIPTA 100-62.5-25 mcg INHALE 1 PUFF BY MOUTH DAILY 0 02/17/2021 Active Comment on above: INHALE 1 PUFF BY BEVERLY TH DAILY furosemide 40 mg oral tablet (5 sources) Loop Diuretic Start: 4 take 1 tablet by mouth once daily furosemide 40 mg Tab 40 mg = 1 tab(s), Oral, Daily, Refills(s) 0 Start Date: 12/28/23 Status: Ordered Repeat number: 1 glipiZIDE 10 mg oral tablet (20 sources) Sulfonylurea Start: 5 take 1 tablet by mouth twice daily glipiZIDE 10 mg Tab See Instructions, TAKE 1 TABLET BY MOUTH TWICE A DAY, # 60 tab(s), Refills(s) 5, Pharmacy: [facility]/pharmacy #[id number], 177, cm, 10/25/24 14:03:00 EDT, Height/Length Dosing, 109.4, kg, 10/25/24 14:03:00 EDT, Weight Dosing Start Date: 10/25/24 Status: Ordered Quantity: 60.0 Unit: tab(s) Repeat number: 6 Start: 12-28-2023 take 1 tablet by beverly th twice daily glipiZIDE 10 mg Tab 10 mg = 1 tab(s), Oral, BID, Refills(s) 0 Start Date: 12/28/23 Status: Ordered Start: 09-19-2023 take 1 tablet by beverly th twice daily Glipizide 10 mg tablet Active 0 .ROUTE .COMPLEX 180 September 19, 2023 1:16pm TAKE 1 TABLET BY MOUTH TWICE A DAY Start: 09-14-2023 End: 09-19-2023 take 1 tablet by mouth twice daily Glipizide 10 mg tablet Discontinued 10 MG PO Twice daily September 14, 2023 1:00am September 19, 2023 1:16pm Start: 02-07-2021 take 1 tablet by beverly twice daily glipiZIDE (GLUCOTROL) 10 mg tablet Take 10 mg by mouth twice daily. 0 02/07/2021 Active Comment on above: Take 10 mg by mouth twice daily. 12 hr guaiFENesin 600 mg extended release oral tablet (20 sources) Start: take 1 tablet by mouth every twelve hours as needed for congestion, then take 1 tablet by mouth every twelve hours as needed for congestion Guaifenesin (Mucinex) 600 mg tablet extended release 12hr Active 600 MG PO Every 12 hours as needed for congestion September 14, 2023 1:00am Start: 03-25-2021 take 2 tablets by mo [facility] twice daily guaiFENesin (MUCINEX) 600 mg 12 hr tablet Take 2 tablets by mouth twice daily. 0 03/25/2021 Active take 1 tablet by beverly every twelve hours Mucinex 600 MG 1 tablet as needed Orally every 12 hrs Active Comment on above: Take 2 tablets by mo [facility] twice daily. Handicap placards as directed (20 sources) Handicap placard s as directed as directed as directed as directed Active hydrOXYzine hydrochloride 50 mg oral tablet (3 sources) Antihistamine Start: 10-09-19 take 1 tablet by mouth three times daily as needed for anxiety hydrOXYzine hydrochloride 50 mg oral tablet See Instructions, TAKE 1 TABLET BY MOUTH THREE TIMES A DAY NEEDED FOR ANXIETY, # 270 tab(s), Refills(s) 0, Pharmacy: [facility] STORE [id number], 177, cm, 06/04/24 15:02:00 EST, Height/Length Dosing, 108, kg, 06/04/24 15:02:00 EST, Weight Dosing Start Date: 10/08/24 Status: Ordered Quantity: 270.0 Unit: tab(s) Repeat number: 1 Start: 01-24-2024 take 1 tablet by beverly three times daily as needed for anxiety hydrOXYzine hydrochloride 25 mg Tab 25 mg = 1 tab(s), Oral, TID, PRN for anxiety, # 90 tab(s), Refills(s) 2, Pharmacy: [facility]/pharmacy #[id number], 177, cm, 01/24/24 10:21:00 EDT, Height/Length Dosing, 115.7, kg, 12/28/23 13:07:00 EDT, Weight Dosing Start Date: 01/24/24 Status: Ordered Ipratropium-Albuterol 18-103 mcg/actuation aerosol (2 sources) Start: 10-04-2024 take 1 spray(s) by inhalation four times daily Ipratropium-Albuterol 18-103 mcg/actuation aerosol Active 1 SPRAY INHALATION Four times daily October 04, 2024 12:00am lisinopril 5 mg oral tablet (20 sources) Angiotensin Converting Enzyme Inhibitor Start: 09-14-2023 take 1 tablet by mouth once daily lisinopril 5 mg Tab 5 mg = 1 tab(s), Oral, Daily, Refills(s) 0 Start Date: 12/28/23 Status: Ordered Repeat number: 1 Start: 08-09-2022 take 1 tablet by beverly every twenty-four hours Lisinopril 5 MG 1 tablet Orally Once a day Jul, Active 24 hr metoprolol succinate 25 mg extended release oral tablet (20 sources) beta-Adrenergic Shivam Start: 12-28-2023 take 1 tablet by mouth once daily metoprolol 25 mg ER Tab 25 mg = 1 tab(s), Oral, Daily, Refills(s) 0 Start Date: 12/28/23 Status: Ordered Repeat number: 1 Start: 10-25-2023 End: 10-04-2024 take 1 tablet by mouth once daily Metoprolol Succinate 25 mg tablet extended release 24 hr Discontinued 0 .ROUTE .COMPLEX 90 October 25, 2023 2:51pm October 04, 2024 1:41am TAKE 1 TABLET BY MOUTH EVERY DAY Start: 09-14-2023 End: 10-25-2023 take 1 tablet by mouth once daily Metoprolol Succinate 25 mg tablet extended release 24 hr Discontinued 25 MG PO Daily September 14, 2023 1:00am October 25, 2023 2:52pm Start: 02-07-2021 take 1 tablet by beverly th once daily metoprolol succinate ER (TOPROL XL) 25 mg 24 hr tablet Take 25 mg by mouth once daily. 0 02/07/2021 Active Comment on above: Take 25 mg by mouth once daily. Mucinex DM 30 mg-600 mg Tab-ER (3 sources) Start: 12-28-2023 take 1 tablet by mouth twice daily as needed for congestion Mucinex DM 30 mg-600 mg Tab-ER See Instructions, Refill(s) 0, 1-2 orally twice a day as needed for chest congestion Start Date: 12/28/23 Status: Ordered Repeat number: 1 Start: 12-28-2023 take 1 tablet by beverly th twice daily as needed for congestion Mucinex DM 30 mg-600 mg Tab-ER See Instructions, Refill(s) 0, 1-2 orally twice a day as needed for chest congestion Start Date: 12/28/23 Status: Ordered [place] 3 1000 MG (20 sources) take 1 capsule by mouth once daily [place] 3 1000 MG 1 capsule Orally Once a day Active [place]-3 Fatty Acids (1 source) Start: 09-14-2023 take 1000 mg by mouth once daily [place]-3 Fatty Acids Active 1000 MG PO Daily September 14, 2023 1:00am omeprazole 20 mg delayed release oral capsule (20 sources) Proton Pump Inhibitor Start: 06-12-2024 take 1 capsule by mouth once daily omeprazole 20 mg Cap-DR See Instructions, TAKE 1 CAPSULE BY MOUTH EVERY DAY, # 90 cap(s), Refills(s) 1, Pharmacy: [facility] STORE [id number], 177, cm, 06/04/24 15:02:00 EST, Height/Length Dosing, 108, kg, 06/04/24 15:02:00 EST, Weight Dosing Start Date: 06/12/24 Status: Ordered Quantity: 90.0 Unit: cap(s) Repeat number: 1 Start: 12-28-2023 take 1 capsule by [facility] once daily omeprazole 20 mg Cap-DR 20 mg = 1 cap(s), Oral, Daily, Refills(s) 0 Start Date: 12/28/23 Status: Ordered Start: 10-17-2023 End: 11-14-2023 take 1 capsule by mouth once daily in the morning Omeprazole 20 mg capsule,delayed release(DR/EC) Active 0 .ROUTE .COMPLEX November 14, 2023 2:14pm TAKE 1 CAPSULE BY MOUTH EVERY DAY IN THE MORNING Start: 09-14-2023 End: 10-17-2023 take 1 capsule by mouth once daily Omeprazole 20 mg capsule,delayed release(DR/EC) Discontinued 20 MG PO Daily September 14, 2023 1:00am October 17, 2023 12:35pm Start: 02-24-2021 take 1 capsule by [facility] once daily omeprazole (PRILOSEC) 20 mg capsule Take 20 mg by mouth once daily. 0 02/24/2021 Active Comment on above: Take 20 mg by mouth once daily. Oxygen (1 source) Start: 2023 Oxygen Active 0 .Route September 14, 2023 1:00am As directed Oxygen 2 liters (20 sources) Oxygen 2 liters continuous Active Oxygen unit (2 sources) Start: 2023 Oxygen unit Active 0 .Route September 14, 2023 1:00am As directed ozempic (0.25 or 0.5 mg/dose) 2 mg/3ml [...] Active pravastatin sodium 80 mg oral tablet (20 sources) HMG-CoA Reductase Inhibitor Start: 2024 take 1 tablet by mouth once daily at bedtime pravastatin 80 mg Tab See Instructions, TAKE 1 TABLET BY MOUTH EVERYDAY AT BEDTIME, # 30 tab(s), Refills(s) 0, Pharmacy: [facility]/pharmacy #[id number], 177, cm, 06/04/24 15:02:00 EST, Height/Length Dosing, 108, kg, 06/04/24 15:02:00 EST, Weight Dosing Start Date: 10/23/24 Status: Ordered Quantity: 30.0 Unit: tab(s) Repeat number: 1 Start: 10-04-2024 Pravastatin 80 mg tablet Active 40 MG PO Daily October 04, 2024 12:00am Start: 01-24-2024 take 1 tablet by beverly th once daily at bedtime pravastatin 80 mg Tab 80 mg = 1 tab(s), Oral, Once a day (at bedtime), # 90 tab(s), Refills(s) 1, Pharmacy: [facility]/pharmacy #[id number], 177, cm, 01/24/24 11:56:00 EDT, Height/Length [...] daily Active predniSONE 20 mg oral tablet (12 sources) Start: 10-06-19 take 2 tablets by mouth once daily, then take 1 tablet by mouth once daily Prednisone 20 mg tablet Active 20 MG PO Daily October 05, 2024 12:16pm take 40 mg for three days then resume 20 mg days after that Start: 10-04-2024 take 2 tablets by mo uth once daily Prednisone 10 mg tablet Active 20 MG PO Daily October 04, 2024 12:00am Start: 09-14-2023 End: 10-05-2024 take 1 tablet by mouth once daily Prednisone 20 mg tablet Discontinued 20 MG PO Daily October 05, 2024 12:00am October 05, 2024 12:17pm Start: 03-25-2021 take 1 tablet by beverly th once daily predniSONE (DELTASONE) 10 mg tablet Take 1 tablet by mouth once daily. 0 03/25/2021 Active Comment on above: Take 1 tablet by beverly th once daily. Prolastin-C (3 sources) Start: 12-28-2023 Prolastin-C Se e Instructions, 1000mg once a week, Refills(s) 0 Start Date: 12/28/23 Status: Ordered Repeat number: 1 Start: 12-28-2023 Prolastin-C Se e Instructions, 1000mg once a week, Refills(s) 0 Start Date: 12/28/23 Status: Ordered Semaglutide (6 sources) Start: 10-25-2023 inject 0.5 mg by subcutaneous injection every week Semaglutide (Ozempic) 0.25 mg or 0.5 mg (2 mg/3 mL) pen injector Active 0 .ROUTE .COMPLEX 3 October 25, 2023 2:51pm INJECT 0.5 MG SUBCUTANEOUSLY ONCE A WEEK Start: 09-14-2023 End: 10-25-2023 Semaglutide 0.25 mg or 0.5 m g (2 mg/3 mL) pen injector Discontinued 0.5 MG SUBCUT every week September 14, 2023 1:00am October 25, 2023 2:52pm Start: 09-14-2023 End: 10-25-2023 inject 0.5 mg [...] NACL 0.9% 25 mL FLUSH (I RB [id number]) Inject 10 mL intravenously. 0 02/13/2021 05/15/2022 Active Comment on above: Inject 10 mL intrave nously. theophylline 450 mg extended release oral tablet (20 sources) Methylxanthine Start: 07-16-20 take 1 tablet by mouth every twelve hours theophylline 450 mg ER Tab See Instructions, TAKE 1 TABLET BY MOUTH EVERY 12 HOURS, # 180 tab(s), Refills(s) 1, Pharmacy: [facility]/pharmacy #[id number], 177, cm, 10/25/24 14:03:00 EDT, Height/Length Dosing, 109.4, kg, 10/25/24 14:03:00 EDT, Weight Dosing Start Date: 11/05/24 Status: Ordered Quantity: 180.0 Unit: tab(s) Repeat number: 2 Start: 01-24-2024 take 1 tablet by beverly th every twelve hours theophylline 450 mg ER Tab 450 mg = 1 tab(s), Oral, q12hr, # 180 tab(s), Refills(s) 0, Pharmacy: [facility]/pharmacy #[id number], 177, cm, 01/24/24 10:21:00 EDT, Height/Length Dosing, 115.7, kg, 12/28/23 13:07:00 EDT, Weight Dosing Start Date: 01/24/24 Status: Ordered Start: 09-14-2023 Theophylline 4 00 mg tablet extended release 24 hr Active 450 MG PO Twice daily September 14, 2023 1:00am Start: 09-14-2023 take 1 tablet by beverly th twice daily Theophylline 400 mg tablet extended release 24 hr Active 400 MG PO Twice daily September 14, 2023 1:00am Start: 09-14-2023 take 400 mg by mouth once daily [...] Ellipta 100 mcg-62.5 mcg-25 mcg inhalation powder (3 sources) Start: 12-28-2023 take 1 puff(s) by inhalation once daily Trelegy Ellipta 100 mcg-62.5 mcg-25 mcg inhalation powder = 1 puff(s), Inhalation, Daily, Refills(s) 0 Start Date: 12/28/23 Status: Ordered Repeat number: 1 Start: 12-28-2023 take 1 puff(s) by in halation once daily Trelegy Ellipta 100 mcg-62.5 mcg-25 mcg inhalation powder = 1 puff(s), Inhalation, Daily, Refills(s) 0 Start Date: 12/28/23 Status: Ordered 24 hr venlafaxine 150 mg extended release oral capsule (20 sources) Serotonin and Norepinephrine Reuptake Inhibitor Start: 2024 take 1 capsule by mouth twice daily venlafaxine 150 mg Cap-ER See Instructions, TAKE 1 CAPSULE BY MOUTH TWICE A DAY, # 180 cap(s), Refills(s) 0, Pharmacy: [facility] STORE [id number], 177, cm, 10/25/24 14:03:00 EDT, Height/Length Dosing, 109.4, kg, 10/25/24 14:03:00 EDT, Weight Dosing Start Date: 11/05/24 Status: Ordered Quantity: 180.0 Unit: cap(s) Repeat number: 1 Start: 09-14-2023 End: 10-04-2024 take 1 capsule by mouth twice daily venlafaxine 150 mg Cap-ER 150 mg = 1 cap(s), Oral, BID, # 180 cap(s), Refills(s) 0, Pharmacy: [facility]/pharmacy #[id number], 177, cm, 06/04/24 15:02:00 EST, Height/Length Dosing, 108, kg, 06/04/24 15:02:00 EST, Weight Dosing Start Date: 08/07/24 Status: Ordered Quantity: 180.0 Unit: cap(s) Repeat number: 1 Start: 03-03-2021 take 1 tablet by [place] twice daily VENLAFAXINE ER 150 MG TABLET,EXTENDED RELEASE 24 HR Take 150 mg by mouth twice daily. 0 03/03/2021 Active take 1 capsule by [facility] every twelve hours Effexor XR 150 MG 1 capsule with food Orally bid for 90 days Active take 1 capsule by [facility] every twenty-four hours Effexor XR 150 MG 1 capsule with food Orally Once a day for 30 days Active take 1 capsule by [facility] every twelve hours Effexor XR 75 MG 1 capsule with food Orally Twice a day for 30 days Active Comment on above: Take 150 mg by mouth twice daily. Completed/Discontinued Medications Medication Drug Class(es) Dates Sig (Normalized) Sig (Original) jafwf-1-klgnscuz se inhibitor (Human) 1,000 mg in water for injection (6 sources) Start: 03-25-2021 inject 1000 mg intravenously every week esppx-6-zngzlxjthz inhibitor (Human) 1,000 mg in water for injection Inject 1,000 mg intravenously one time a week. 0 03/25/2021 Active Comment on above: Inject 1,000 mg intravenously one time a week. ALPRAZolam 0.5 mg oral tablet (20 sources) Benzodiazepine Start: 09-14-2023 End: 10-04-2024 take 1 tablet by mouth twice daily as needed for anxiety Alprazolam 0.5 mg tablet Discontinued 0.5 MG PO Twice daily as needed for anxiety 60 30 November 11, 2023 2:38pm October 04, 2024 1:38am Start: 08-26-2023 take 1 tablet by [place] [...] day prn for 30 days Dec, Active amoxicillin 875 mg / clavulanate 125 mg [...] a day for 30 day(s) Dec, Not-Taking FREESTYLE MARTIN 2 SENSOR kit (6 sources) Start: 02-17-2021 FREESTYLE MARTIN 2 SENSOR kit as directed. 0 02/17/2021 Active Comment on above: as directed. Glucose (2 sources) Start: 10-25-2024 Glucose Kit Glucose Kit, See Instructions, 1 EA, 0, Glucose meter. Include autolet, matching test strips, lancets, & alcohol wipes, #100 or as allowed by insurance; DX: E11.9, [id number], Supply, 177, cm, 10/25/24 14:03:00 EDT, Height/Length Dosing, 109.4, kg, 10/25/24 14:03:00 EDT, Weight Dosing Start Date: 10/25/24 Status: Ordered Quantity: 1.0 Unit: EA Repeat number: 1 Indication: Type 2 diabetes mellitus with unspecified complications hydroCHLOROthiazide 12.5 mg oral tablet (12 sources) Thiazide Diuretic take 1 tablet by mouth every twenty-four hours hydroCHLOROthiazide 12.5 MG 1 tablet Orally Once a day for 30 day(s) Not-Taking mupirocin 0.02 mg/mg topical ointment (3 sources) RNA Synthetase Inhibitor Antibacterial Start: 09-15-2023 End: 10-04-2024 Mupirocin 2 % ointment Discontinued 1 APPLIC TOPICAL Twice daily September 15, 2023 1:00am October 04, 2024 1:48am [place]-3 Fatty Acids 1,000 mg capsule (2 sources) Start: 09-14-2023 End: 10-04-2024 take 1 capsule by mouth once daily [place]-3 Fatty Acids 1,000 mg capsule Discontinued 1000 MG PO Daily September 14, 2023 1:00am October 04, 2024 1:48am 0.25 mg, 0.5 mg dose 1.5 ml semaglutide 1.34 mg/ml pen injector (19 sources) Start: 02-17-2021 OZEMPIC 0.25 mg or 0.5 mg(2 mg/1.5 mL) pnij INJECT 0.5MG SUBCUTANEOUSLY WEEKLY 0 02/17/2021 Active Comment on above: INJECT 0.5MG SUBCUTA NEOUSLY WEEKLY tiotropium 0.018 mg inhalation powder (12 sources) Anticholinergic Start: 12-18-2013 take 1 capsule by inhalation once daily [...] Virus Nucleoside Analog DNA Polymerase Inhibitor Start: 12-28-2020 take 2000 mg by mouth twice daily valACYclovir (VALTREX) 1 gram Take 2,000 mg by mouth twice daily. 0 12/28/2020 Active Comment on above: Take 2,000 mg by [place] th twice daily. Problems Active Problems Problem Classification Problem Date Documented Date Episodic/Chronic Acute bronchitis (1 source) Acute bronchitis, unspecified; Translations: [ACUTE BRONCHITIS UNSPECIFIED] Onset: 07-20-2022 Episodic Anxiety disorders (20 sources) Generalized anxiety disorder; Translations: [Generalized anxiety disorder] Chronic Comment on above: Noted in 12/28/2023 o ffice note, added per outpatient CDI policy. Chronic obstructive pulmonary disease and bronchiectasis (20 sources) Chronic obstructive lung disease; Translations: [Chronic obstructive pulmonary disease, unspecified] Onset: 01-17-2019 Chronic Diabetes mellitus with complications (20 sources) Type 2 diabetes mellitus with hyperglycemia; Translations: [Type 2 diabetes mellitus] Onset: 10-05-2022 Chronic Diabetes mellitus without complication (17 sources) Diabetes mellitus; Translations: [Type 2 diabetes mellitus without complications] Onset: 03-25-2021 03-25-2021 Chronic Comment on above: Noted in 12/28/2023 o ffice note, added per outpatient CDI policy. Linked per outpatien t CDI policy for greater specification. Disorders of lipid metabolism (3 sources) Pure hypercholesterolemia, unspecified; Translations: [Hyperlipidemia] Onset: 10-05-2022 01-25-2024 Chronic Comment on above: Noted in 01/24/2024 of fice note, added per ouptatient CDI policy Esophageal disorders (9 sources) Gastroesophageal reflux disease; Translations: [Gastro-esophageal reflux disease without esophagitis] Onset: 03-25-2021 03-25-2021 Chronic Essential hypertension (19 sources) Essential hypertension; Translations: [Essential (primary) hypertension] Onset: 02-14-2019 03-25-2021 Chronic Hyperplasia of prostate (2 sources) Benign prostatic hypertrophy with outflow obstruction; Translations: [Benign prostatic hyperplasia with lower urinary tract symptoms] Onset: 11-28-2024 Chronic Inflammatory conditions of male genital organs (1 source) Chronic prostatitis; Translations: [Chronic prostatitis] Onset: 11-28-2024 Chronic Mood disorders (17 sources) Depressive disorder; Translations: [Depression] Onset: 03-25-2021 03-25-2021 Chronic Other aftercare (1 source) Other meterman (current) drug therapy; Translations: [OTH PRISON CURRENT DRUG THERAPY] Onset: 10-05-2022 Episodic Other aftercare (1 source) [facility] (current) use of aspirin; Translations: [PRISON CURRENT USE OF ASPIRIN] Onset: 10-05-2022 Episodic Other aftercare (1 source) long term care administrator (current) use of oral hypoglycemic drugs; Translations: [PRISON USE ORAL HYPOGLYCEMIC DX] Onset: 08-19-2022 Episodic Other aftercare (4 sources) Encounter for therapeutic drug level monitoring; Translations: [ENC THERAPEUTC DRUG LEVL MONITORING] Onset: 08-10-2022 Episodic Other aftercare (2 sources) long term care administrator (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; Translations: [long term care administrator (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] Onset: 01-24-2025 Episodic Other lower respiratory disease (4 sources) Shortness of breath; Translations: [SHORTNESS OF BREATH] Onset: 09-01-2022 Episodic Other lower respiratory disease (4 sources) Hypoxemia; Translations: [HYPOXEMIA] Onset: 08-17-2022 Episodic Other non-traumatic joint disorders (2 sources) Pain in left knee; Translations: [Chronic pain of left knee] 11-14-2023 Episodic Other nutritional; endocrine; and metabolic disorders (11 sources) Mvrmy-8-okubrtbrfjp deficiency; Translations: [Vgqxk-0-xqmmlzhwduu deficiency] Onset: 02-16-2021 03-25-2021 Chronic Other nutritional; endocrine; and metabolic disorders (1 source) Obesity, unspecified; Translations: [OBESITY UNSPECIFIED] Onset: 10-05-2022 Chronic Other nutritional; endocrine; and metabolic disorders (1 source) Body mass index (BMI) 40.0-44.9, adult; Translations: [BODY MASS INDEX BMI 40.0-44.9 ADULT] Onset: 10-05-2022 Chronic Other nutritional; endocrine; and metabolic disorders (3 sources) Body mass index (BMI) 39.0-39.9, adult; Translations: [BODY MASS INDEX BMI 39.0-39.9 ADULT] Onset: 09-01-2022 Chronic Other nutritional; endocrine; and metabolic disorders (4 sources) Gryrg-1-vossetvbpua deficiency; Translations: [Jtzed-1-yxswjgnnvpn deficiency] Onset: 08-19-2022 10-05-2024 Chronic Other nutritional; endocrine; and metabolic disorders (20 sources) Severe obesity; Translations: [Morbid (severe) obesity due to excess calories] Chronic Other nutritional; endocrine; and metabolic disorders (20 sources) Body mass index 30+ - obesity; Translations: [Body mass index (BMI) 39.0-39.9, adult] 01-24-2024 Chronic Other nutritional; endocrine; and metabolic disorders (1 source) Morbid (severe) obesity due to excess calories Chronic Other screening for suspected conditions (not mental disorders or infectious disease) (1 source) Raised prostate specific antigen; Translations: [Elevated prostate specific antigen [PSA]] Onset: 11-28-2024 Episodic Other skin disorders (3 sources) Disorder of skin of upper limb; Translations: [Disorder of the skin and subcutaneous tissue, unspecified] 09-17-2023 Episodic Other skin disorders (1 source) Disorder of the skin and subcutaneous tissue, unspecified; Translations: [Unspecified disorder of skin and subcutaneous tissue] 09-15-2023 Episodic Lily-; endo-; and myocarditis; cardiomyopathy (except that caused by tuberculosis or sexually transmitted disease) (2 sources) Other cardiomyopathies; Translations: [Other cardiomyopathies] Onset: 01-24-2025 Chronic Residual codes; unclassified (1 source) Awaiting transplantation of lung; Translations: [Awaiting organ transplant status] Chronic Residual codes; unclassified (20 sources) Obstructive sleep apnea syndrome; Translations: [Obstructive sleep apnea (adult) (pediatric)] Onset: 03-25-2021 03-25-2021 Chronic Comment on above: noted in 09/19/2024 Pulmonology Consult Note page 2. added per OP CDI policy. Residual codes; unclassified (3 sources) Obstructive sleep apnea (adult) (pediatric); Translations: [Obstructive sleep apnea (adult)(pediatric)] Onset: 09-01-2022 10-05-2024 Chronic Residual codes; unclassified (1 source) Patient's intentional underdosing of medication regimen due to financial hardship; Translations: [PT INTENT UNDRDOS MED FINANC HRDSHP] Onset: 07-20-2022 Episodic Respiratory failure; insufficiency; arrest (adult) (12 sources) Chronic hypoxemic respiratory failure; Translations: [Chronic respiratory failure with hypoxia] Onset: 02-16-2021 03-25-2021 Chronic Screening and history of mental health and substance abuse codes (3 sources) Personal history of nicotine dependence; Translations: [H/O: Disorder] Onset: 10-05-2022 Episodic Spondylosis; intervertebral disc disorders; other back problems (12 sources) Radiculopathy, cervical region; Translations: [Cervical radiculopathy] Episodic Substance-related disorders (3 sources) History of drug abuse 01-24-2024 Chronic Unclassified (4 sources) CONTACT W/AND (SUSP) EXPOS COVID-19; Translations: [CONTACT W/AND (SUSP) EXPOS COVID-19] Onset: 04-27-2022 Unclassified (3 sources) COUGH, UNSPECIFIED; Translations: [COUGH, UNSPECIFIED] Onset: 03-22-2022 Unclassified (1 source) UNVACCINATED FOR COVID-19; Translations: [UNVACCINATED FOR COVID-19] Onset: 05-04-2022 Unclassified (1 source) A [facility] screening has identified you as FRAIL or AT RISK FOR FRAILTY. This puts you at a higher risk for infection, illness, falls, and other injuries. Here are four ways to help you reduce your risk of frailty: 1. IDENTIFY EARLY SIGNS OF FRAILTY Discuss contributing factors and concerns with your doctor 2. BE ACTIVE Walking and light strengthening exercises will help reduce weakness 3. EAT WELL Aim for three healthy meals a day that are high in protein 4. THINK POSITIVE Keep your mind active by being sociable and continuing to learn References: Stay Strong: Four Ways to Beat the Frailty Risk [email or web address] bsk-kjm-mpnktrmnax/sta b-dzfvhr-bfzv-ways-to- bjom-xmo-mag ilty-risk 10-05-2024 Unclassified (2 sources) Long-term current use of inhaled steroid 10-10-2024 Comment on above: noted in 09/19/2024 Pulmonology Consult Note page 2. added per OP CDI policy. Unclassified (2 sources) Long-term current use of steroid 10-10-2024 Comment on above: noted in 09/19/2024 Pulmonology Consult Note page 2. added per OP CDI policy. Unclassified (1 source) Supraventricular tachycardia, unspecified; Translations: [Supraventricular tachycardia, unspecified] Onset: 01-24-2025 Viral infection (1 source) COVID-19; Translations: [COVID-19] Onset: 10-04-2024 Past or Other Problems Problem Classification Problem Date Documented Date Episodic/Chronic Unclassified (1 source) CONTACT W/AND (SUSP) EXPOS COVID-19; Translations: [CONTACT W/AND (SUSP) EXPOS COVID-19] Onset: 04-26-2022 Unclassified (1 source) COUGH, UNSPECIFIED; Translations: [COUGH, UNSPECIFIED] Onset: 03-19-2022 Unclassified (1 source) Supraventricular tachycardia, unspecified; Translations: [Supraventricular tachycardia, unspecified] Onset: 01-24-2025 Results Test Name Value Interpretation Reference Range Facility Office Visiton 01-24-2025 Follow-up visit [id number] Ricardo Hylton 1960 M Date Provider Department Center 01/24/2025 [id number], [facility] Family History Problem Relation Age of Onset Hypertension Mother Family Status - Relation Status Age at Mother Level of Service:51567 [place] OFFICE/OUTPATIENT NEW MODERATE MDM 45 MINUTES Normal [facility] Orders Onlyon 01-23-2025 Orders Only [id number] Ricardo Hylton 1960 M Date Provider Department Center 01/23/2025 [id number], HISTORICAL CARD Natasha [facility]ier Family History Problem Relation Age of Onset Hypertension Mother Family Status - Relation Status Age at Mother Normal [facility] Ambulatory Visit Summaryon 0 11-28-2024 Ambulatory Visit Summary Ambulatory Visit Summary RICARDO HYLTON :1960 Visit Date:11/28/2024 Ambulatory Visit Instructions Your Diagnosis Elevated PSA BPH with obstruction/lower urinary tract symptoms Chronic prostatitis Former smoker Your Care Team Attending Physician - Joo YIP MD Primary Care Physician - SARAH TRIVEDI CNP Referring Physician - SARAH TRIVEDI CNP This Is Your Medications List doxycycline (doxycycline hyclate 100 mg Cap) Contact prescribing physician if questions or concerns Misc Prescription (Glucose Kit) albuterol-ipratropiu m (Combivent Respimat 20 mcg-100 mcg) alpha 1-proteinase inhibitor (Prolastin-C) aripiprazole (aripiprazole 10 mg Tab) aripiprazole (aripiprazole 10 mg Tab) aspirin (aspirin 81 mg Oral EC Tab) cetirizine (cetirizine 10 mg Tab) cyclobenzaprine (cyclobenzaprine 5 mg Tab) dextromethorphan-gua ifenesin (Mucinex DM 30 mg-600 mg Tab-ER) empagliflozin (Jardiance 25 mg oral tablet) fluticasone/umeclidi nium/vilanterol (Trelegy Ellipta 100 mcg-62.5 mcg-25 mcg inhalation powder) furosemide (furosemide 40 mg Tab) glipiZIDE (glipiZIDE 10 mg Tab) hydrOXYzine (hydrOXYzine hydrochloride 50 mg oral tablet) lisinopril (lisinopril 5 mg Tab) metoprolol (metoprolol 25 mg ER Tab) omeprazole (omeprazole 20 mg Cap-DR) pravastatin (pravastatin 80 mg Tab) semaglutide (Ozempic 2 mg/3 mL (0.25 mg or 0.5 mg dose) subcutaneous solution) theophylline (theophylline 450 mg ER Tab) theophylline (theophylline 450 mg ER Tab) venlafaxine (venlafaxine 150 mg Cap-ER) Procedures Performed Cardiac catheter. What to do next Scheduled Follow-Up Appointments 2024 1:20 PM EDT With: SARAH TRIVEDI CNP Where: [address] [address]- Tuesday 1:00 PM EDT With: Where: [address] [address]- Tuesday 11:00 AM EDT With: Where: [facility] [id number] [place] [address]- Tuesday 11:15 AM EDT With: Joo YIP MD Where: [facility] [id number] [place] [address]- You Need to Schedule the Following Appointments Follow Up with Joo YIP MD, URL When: Where: [facility] [address], [place] [address]- Medications What How Much When Why Instructions New doxycycline (doxycycline hyclate 100 mg Cap) 1 Capsules By Mouth 2 times a day Duration: 21 Days Pickup at [facility]/pharmacy #[id number] Unchanged albuterol-ipratropiu m (Combivent Respimat 20 mcg-100 mcg) 1 Puffs Inhalation 4 times a day Contact prescribing physician if questions or concerns Unchanged alpha 1-proteinase inhibitor (Prolastin-C) See instructions 1000mg once a week Contact prescribing physician if questions or concerns Unchanged aripiprazole (aripiprazole 10 mg Tab) See instructions TAKE 1 TABLET BY MOUTH EVERY DAY Contact prescribing physician if questions or concerns Unchanged aripiprazole (aripiprazole 10 mg Tab) 1 Tablets By Mouth Every day Contact prescribing physician if questions or concerns Unchanged aspirin (aspirin 81 mg Oral EC Tab) 1 Tablets By Mouth Every day Contact prescribing physician if questions or concerns Unchanged cetirizine (cetirizine 10 mg Tab) 1 Tablets By Mouth Every day as needed for for allergy symptoms Allergic rhinitis, mild Contact prescribing physician if questions or concerns Unchanged cyclobenzaprine (cyclobenzaprine 5 mg Tab) 1 Tablets By Mouth 2 times a day Contact prescribing physician if questions or concerns Unchanged dextromethorphan-gua ifenesin (Mucinex DM 30 mg-600 mg Tab-ER) See instructions 1-2 orally twice a day as needed for chest congestion Contact prescribing physician if questions or concerns Unchanged empagliflozin (Jardiance 25 mg oral tablet) 1 Tablets By Mouth Once a day (in the morning) Contact prescribing physician if questions or concerns Unchanged fluticasone/ umeclidinium/ vilanterol (Trelegy Ellipta 100 mcg-62.5 mcg-25 mcg inhalation powder) 1 Puffs Inhalation Every day Contact prescribing physician if questions or concerns Unchanged furosemide (furosemide 40 mg Tab) 1 Tablets By Mouth Every day Contact prescribing physician if questions or concerns Unchanged glipiZIDE (glipiZIDE 10 mg Tab) See instructions TAKE 1 TABLET BY MOUTH TWICE A DAY Contact prescribing physician if questions or concerns Unchanged hydrOXYzine (hydrOXYzine hydrochloride 50 mg oral tablet) See instructions TAKE 1 TABLET BY MOUTH THREE TIMES A DAY NEEDED FOR ANXIETY Contact prescribing physician if questions or concerns Unchanged lisinopril (lisinopril 5 mg Tab) 1 Tablets By Mouth Every day Contact prescribing physician if questions or concerns U (more content not included)... Normal [facility] .Interpretation:on 5 HCV Ab IA Ql Comment Invalid Interpretation Code [facility] Comment on above: Result Comment: Not infected with HCV unless early or acute infection is suspected (which may be delayed in an immunocompromised individual), or other evidence exists to indicate HCV infection. Performed at: [facility] [id number] PhD Antelmo Cornejo Performed By: #### 2 [id number] #### [facility] [address] [place] [address] HCV Antibody RFX to Quant PC Georges 10-28-2024 HCV Ab IA Ql Non-Reactive Invalid Interpretation Code Non Reactive [facility] Comment on above: Result Comment: Perf ormed at: [facility] [address] [id number] PhD Antelmo Cornejo Performed By: #### 2 [id number] #### [facility] [address] [place] [address] [id number] 10-26-2024 HbA1c (Bld) [Mass fraction] 7.9 % High <=5.9 [facility] Comment on above: Performed By: #### 7 [id number] #### [facility] [address] [place] [address] PSA Totalon 10-26-2024 Prostate specific Ag [Mass/Vol] 5.0 ng/mL High 0.1-3.5 [facility] Comment on above: Result Comment: The concentration of PSA determined by different manufacturers can vary due to differences in assay methods and reagent specificity. Values obtained from different assay methods cannot be used interchangeably. The methodology used for this result was chemiluminescence using [employer] Access Hybritech PSA reagent. Performed By: #### 1 [id number] #### [facility] [address] [place] [address] Family Medicine Office/Clini c Noteon 10-25-2024 Family Medicine Office/Clinic Note Family Medicine Office/Clinic Note Chief Complaint Difficulty breathing due to known lung disease; concern for blood glucose management. HPI Staff Ricardo is a 63 year old male presenting with [facility] Hospital: [facility] Admission date: 10/04/24 Discharge date: 10/05/24 Symptoms the patient presented with: exacerbation of COPD refills for Jardiance was treated for COVID still having more SOB, lately it has been a little better Was in the process of moving he lost his randy and lancets and strips Review of Systems PHQ Score Initial Depression Screen Score: 0 SCORE Physical Exam Vitals & Measurements T: 36.2 ???C(Oral) HR: 110(Peripheral) RR: 20 BP: 124/76 SpO2: 95% HT: 177.0 cm HT: 70 in WT: 241.185 lb WT: 109.4 kg BMI: 34.92 Assessment/Plan 1. Type 2 diabetes mellitus with complication (E11.8: Type 2 diabetes mellitus with unspecified complications) Ordered: [facility] Prescription, Glucose Kit, See Instructions, 1 EA, 0, Glucose meter. Include autolet, matching test strips, lancets, & alcohol wipes, #100 or as allowed by insurance; DX: E11.9, [facility]/pharmacy #[id number], Supply, 177, cm, 10/25/24 14:03:00 EDT, Height/Length Dosing, 109.4... HgbA1c 2. Emphysema/COPD (J43.9: Emphysema, unspecified) 3. BMI 34.0-34.9,adult (Z68.34: Body mass index [BMI] 34.0-34.9, adult) 4. Class 1 obesity due to excess calories with body mass index (BMI) of 34.0 to 34.9 in adult (E66.811: Obesity, class 1) Orders: empagliflozin, 25 mg = 1 tab(s), Oral, qAM, # 90 tab(s), Refills(s) 1, Pharmacy: [facility]/pharmacy #[id number], 177, cm, 10/25/24 14:03:00 EDT, Height/Length Dosing, 109.4, kg, 10/25/24 14:03:00 EDT, Weight Dosing glipiZIDE, See Instructions, TAKE 1 TABLET BY MOUTH TWICE A DAY, # 60 tab(s), Refills(s) 5, Pharmacy: [facility]/pharmacy #[id number], 177, cm, 10/25/24 14:03:00 EDT, Height/Length Dosing, 109.4, kg, 10/25/24 14:03:00 EDT, Weight Dosing Follow-up With When Contact Information SARAH TRIVEDI CNP, FAM Within [address] [place] [id number] Business (1) Additional Instructions: Diabetes Patient Education Diabetes Mellitus and Exercise Problem List/Past Medical History Ongoing Anxiety Chronic hypoxic respiratory failure Emphysema/COPD History of opioid abuse Hyperlipidemia long term care administrator (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 long term care administrator (current) use of systemic steroids Obesity (BMI 30-39.9) Obesity, Class II, BMI 35-39.9, no comorbidity RANCHO (obstructive sleep apnea) Type 2 diabetes mellitus with complication Type 2 diabetes mellitus with hyperlipidemia Historical No qualifying data Procedure/Surgical History Cardiac catheter. Medications aripiprazole 10 mg Tab, 10 mg= 1 tab(s), Oral, Daily aripiprazole 10 mg Tab, See Instructions aspirin 81 mg Oral EC Tab, 81 mg= 1 tab(s), Oral, Daily cetirizine 10 mg Tab, 10 mg= 1 tab(s), Oral, Daily, PRN Combivent Respimat 20 mcg-100 mcg, 1 puff(s), Inhalation, QID cyclobenzaprine 5 mg Tab, 5 mg= 1 tab(s), Oral, BID furosemide 40 mg Tab, 40 mg= 1 tab(s), Oral, Daily glipiZIDE 10 mg Tab, See Instructions, 5 refills Glucose Kit, See Instructions hydrOXYzine hydrochloride 50 mg oral tablet, See Instructions Jardiance 25 mg oral tablet, 25 mg= 1 tab(s), Oral, qAM, 1 refills lisinopril 5 mg Tab, 5 mg= 1 tab(s), Oral, Daily metoprolol 25 mg ER Tab, 25 mg= 1 tab(s), Oral, Daily Mucinex DM 30 mg-600 mg Tab-ER, See Instructions omeprazole 20 mg Cap-DR, See Instructions Ozempic 2 mg/3 mL (0.25 mg or 0.5 mg dose) subcutaneous solution, See Instructions pravastatin 80 mg Tab, See Instructions Prolastin-C, See Instructions theophylline 450 mg ER Tab, See Instructions theophylline 450 mg ER Tab, See Instructions Trelegy Ellipta 100 mcg-62.5 mcg-25 mcg inhalation powder, 1 puff(s), Inhalation, Daily venlafaxine 150 mg Cap-ER, 150 mg= 1 cap(s), Oral, BID Allergies metFORMIN (Diarrhea) Social History Alcohol Current. Beer. Daily., 06/04/2024 Substance Abuse Past. Marijuana. 1-2 times per year. Previous treatment: None., 06/04/2024 Tobacco Former smoker, quit more than 30 days ago, quit 15 years ago Tobacco Use:., 10/25/2024 Family History Cancer: Father. Diabetes mellitus type 2: Mother. Heart disease: Mother. Immunizations Vaccine Date Status influenza virus vaccine, inactivated 04/30/2024 Recorded influenza virus vaccine, inactivated 05/16/2020 Recorded pneumococcal 13-valent vaccine 05/10/2018 Recorded influenza virus vaccine, inactivated 05/10/2018 Recorded Normal [facility] Comment on above: Result Comment: Elec tronically Signed By: SARAH TRIVEDI CNP\Date and Time Signed: 10/25/24 14:49 EDT Family Medicine Office/Clinic Note Family Medicine Office/Clinic Note Chief Complaint Difficulty breathing due to known lung disease; concern for blood glucose management. HPI Staff Ricardo is a 63 year old male presenting with [facility] Hospital: [facility] Admission date: 10/04/24 Discharge date: 10/05/24 Symptoms the patient presented with: exacerbation of COPD refills for Jardiance was treated for COVID still having more SOB, lately it has been a little better Was in the process of moving he lost his randy and lancets and strips History of Present Illness 63-year-old male presenting with concerns regarding difficulties in breathing due to his known lung disease, as well as challenges in monitoring and managing his blood glucose levels associated with Type 2 diabetes mellitus. The patient reports heightened fatigue, likely attributed to his chronic obstructive pulmonary disease (COPD) and stage 4 lung disease. Recently, an exacerbation required further medical attention, accompanied by a course of antibiotics for elevated white counts. Management of his COPD includes both inhaled and systemic steroids, with blood glucose elevation noted during hospitalization, probably due to the steroid use. He is receiving infusions weekly for his COPD. The patient is a former smoker and relies on prolonged inhaled steroids for respiratory management. Discussions have occurred regarding the potential for a lung transplant due to the severity of his condition, as discussed by Dr. Gonzalez. Monitoring and management of diabetes have been impacted by the patient's loss of his glucometer during recent personal transitions, including housing instability. His obesity, classified as class 1 and evident with a BMI between 34.0-34.9, is being managed concurrently. Review of Systems PHQ Score Initial Depression Screen Score: 0 SCORE - General: Reports increased fatigue. - Respiratory: Reports difficulty breathing; past diagnosis of stage 4 lung disease and obstructive sleep apnea. - Endocrine: Reports type 2 diabetes mellitus; difficulty monitoring due to misplaced glucometer; elevated glucose levels noted. - Social: Reports multiple relocations contributing to unstable living conditions. Physical Exam Vitals & Measurements T: 36.2 ???C(Oral) HR: 110(Peripheral) RR: 20 BP: 124/76 SpO2: 95% HT: 177.0 cm HT: 70 in WT: 241.185 lb WT: 109.4 kg BMI: 34.92 General: alert, no acute distress Cardiovascular: regular rate and rhythm, normal peripheral perfusion Respiratory: Diminished breath sounds bilaterally noted on auscultation with noted effort to breathe Extremities: no deformity, no trauma Neurological: oriented x 4, LOC appropriate for age speech normal Assessment/Plan 1. Type 2 diabetes mellitus with complication (E11.8: Type 2 diabetes mellitus with unspecified complications) - Address glucose monitoring with plan for replacement glucometer. - Performed HbA1c blood test to assess glucose control. - Refills of Januvia & GLipizide today at this visit - Encouraged to monitor his blood sugar daily, log, and bring to his next visit - Encourage low carb diet and daily exercise - f/u in 3 months Ordered: [facility] Prescription, Glucose Kit, See Instructions, 1 EA, 0, Glucose meter. Include autolet, matching test strips, lancets, & alcohol wipes, #100 or as allowed by insurance; DX: E11.9, [id number], Supply, 177, cm, 10/25/24 14:03:00 EDT, Height/Length Dosing, 109.4... HgbA1c 2. Emphysema/COPD (J43.9: Emphysema, unspecified) - Pulse ox 95% with oxygen at $L per nasal cannula - Maintain current inhaled steroid regimen. - Discussed lung transplant evaluation with Dr. Gonzalez. - Maintain management of lung disease with prescribed inhalers and long-term steroids. - F/u as scheduled with Dr. Gonzalez 3. BMI 34.0-34.9,adult (Z68.34: Body mass index [BMI] [...] management will be followed at subsequent visits. 4. Class 1 obesity due to excess calories with body mass index (BMI) of 34.0 to 34.9 in adult (E66.811: Obesity, class 1) - Continue dietary counseling for management of obesity. Orders: empagliflozin, 25 mg = 1 tab(s), Oral, qAM, # 90 tab(s), Refills(s) 1, Pharmacy: [id number], 177, cm, 10/25/24 14:03:00 EDT, Height/Length Dosing, 109.4, kg, 10/25/24 14:03:00 EDT, Weight Dosing glipiZIDE, See Instructions, TAKE 1 TABLET BY MOUTH TWICE A DAY, # 60 tab(s), Refills(s) 5, Pharmacy: [id number], 177, cm, 10/25/24 14:03:00 EDT, Height/Length Dosing, 109.4, kg, 10/25/24 14:03:00 EDT, Weight Dosing Follow-up No qualifying data available Patient Education Diabetes Mellitus and Exercise Problem List/Past Medical History 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 Normal [facility] Comment on above: Result Comment: Elec tronically Signed By: SARAH TRIVEDI CNP\.br\Date and Time Signed: 10/25/24 14:46 EDT Pre-Visit Planningon 025 Pre-Visit Planning Pre-Visit Planning - From: Xochilt Mehta To: SARAH TRIVEDI CNP; Sent: 10/24/2024 15:13:30 EDT Subject: Pre-Visit Planning Due Date/Time: 10/24/2024 15:13:00 EDT Caller Name: RICARDO HYLTON; Caller Number: Jose , M Stephen Smith. During a pre-visit planning chart review, I noted the following documentation in the medical record: Current Problem List: Anxiety. Current Medication List: hydroxyzine and venlafaxine. PHQ-9 Score: =16 on 05/22/2024. Based on your medical judgment, can you please clarify which, if any, of the following conditions are present? I can update the Chronic Problem List with your response if you would like. Major Depressive Disorder, Single Episode ??? Major depressive disorder, single episode, mild ??? Major depressive disorder, single episode, moderate ??? Major depressive disorder, single episode, severe without mention of psychotic behavior ??? Major depressive disorder, single episode, in partial remission ??? Major depressive disorder, single episode in full remission Major Depressive Disorder, Recurrent ??? Major depressive disorder, recurrent, mild ??? Major depressive disorder, recurrent, moderate ??? Major depressive disorder, recurrent, severe without mention of psychotic behavior ??? Major depressive disorder, recurrent, in partial remission ??? Major depressive disorder, recurrent, in full remission -Other (Please Specify): In responding to this request, please exercise your independent professional judgement. The fact that a question is asked does not imply that any particular answer is desired or expected. If you have any questions, please feel free to contact me at extension [phone]. Thank you! Xochilt Mehta LPN Clinical Animal Maintenance Supervisor [place] [address] Extension: [phone] [email or web address] - From: SARAH TRIVEDI CNP To: Xochilt Mehta; Sent: 10/25/2024 15:41:25 EDT Subject: RE: Pre-Visit Planning Caller Name: RICARDO HYLTON; Caller Number: H , M Major depressive disorder, recurrent, in partial remission- Please update the chart to reflect this diagnosis Normal [facility] Pre-Visit Planningon 025 Pre-Visit Planning Pre-Visit Planning - From: Xochilt Mehta To: SARAH TRIVEDI CNP; Sent: 10/10/2024 08:04:54 EDT Subject: Pre-Visit Planning Due Date/Time: 10/10/2024 08:04:00 EDT Caller Name: RICARDO HYLTON; Caller Number: H , M Antolin Smith. During a pre-visit planning chart review, I noted the following documentation in the medical record: Current Problem List: Anxiety. Current Medication List: hydroxyzine and venlafaxine. PHQ-9 Score: =16 on 05/22/2024. Based on your medical judgment, can you please clarify which, if any, of the following conditions are present? I can update the Chronic Problem List with your response if you would like. Major Depressive Disorder, Single Episode ??? Major depressive disorder, single episode, mild ??? Major depressive disorder, single episode, moderate ??? Major depressive disorder, single episode, severe without mention of psychotic behavior ??? Major depressive disorder, single episode, in partial remission ??? Major depressive disorder, single episode in full remission Major Depressive Disorder, Recurrent ??? Major depressive disorder, recurrent, mild ??? Major depressive disorder, recurrent, moderate ??? Major depressive disorder, recurrent, severe without mention of psychotic behavior ??? Major depressive disorder, recurrent, in partial remission ??? Major depressive disorder, recurrent, in full remission -Other (Please Specify): In responding to this request, please exercise your independent professional judgement. The fact that a question is asked does not imply that any particular answer is desired or expected. If you have any questions, please feel free to contact me at extension [phone]. Thank you! Xochilt Mehta LPN Clinical Animal Maintenance Supervisor [place] [address] Extension: [phone] [email or web address] - From: SARAH TRIVEDI CNP To: Xochilt Mehta; Sent: 10/11/2024 14:27:33 EDT Subject: RE: Pre-Visit Planning Caller Name: RICARDO HYLTON; Caller Number: , M Patient was a no-show for his appointment today. Normal [facility] Provider Letteron 10-09-2024 Provider Letter Provider Letter October 09, 2024 [address]TON [address] [place] [phone] RICARDO HYLTON 1960 Dear Ricardo Hylton, We have been trying to reach you with no success. It is important that you return our call regarding your hospital discharge upon receiving this letter. Also, at the time of your call, please provide us with your current information. Thank you for your prompt attention to this matter. Sincerely, Mary Silva, RN/Account Services Associate [facility] option 2 Normal [facility] Alanine aminotransferase [En zymatic activity/volume] in Serum or PlasmaOrdered By: Clifton Calderon on 10-05-2024 ALT [Catalytic activity/Vol] Alanine aminotransferase [Enzymatic activity/volume] in Serum or Plasma 7-52 [facility] Albumin [Mass/volume] in Ser um or Plasma by Bromocresol green (BCG) dye binding methoOrdered By: Clifton Calderon on 10-05-2024 Albumin BCG dye [Mass/Vol] Albumin [Mass/volume] in Serum or Plasma by Bromocresol green (BCG) dye binding metho 3.5-5.7 [facility] Alkaline phosphatase [Enzyma tic activity/volume] in Serum or PlasmaOrdered By: Clifton Calderon on 10-05-2024 ALP [Catalytic activity/Vol] Alkaline phosphatase [Enzymatic activity/volume] in Serum or Plasma 34-104 [facility] Aspartate aminotransferase [ Enzymatic activity/volume] in Serum or PlasmaOrdered By: Clifton Calderon on 10-05-2024 AST [Catalytic activity/Vol] Aspartate aminotransferase [Enzymatic activity/volume] in Serum or Plasma Low 13-39 [facility] Basophils Auto (Bld) [#/Vol] Ordered By: Clifton Calderon on 10-05-2024 Basophils (Bld) [#/Vol] Automated basoph il count 0.0-0.2 [facility] Basophils/100 WBC Auto (Bld) Ordered By: Clifton Calderon on 10-05-2024 Basophils/100 WBC (Bld) Automated basophil % . [facility] Bilirubin.total [Mass/volume ] in Serum or PlasmaOrdered By: Clifton Calderon on 10-05-2024 Bilirubin [Mass/Vol] Bilirubin.total [Mass/volume] in Serum or Plasma 0.3-1.0 [facility] Calcium [Mass/volume] in Ser um or PlasmaOrdered By: Clifton Calderon on 10-05-2024 Calcium [Mass/Vol] Calcium [Mass/volume] in Serum or Plasma 8.6-10.3 [facility] Carbon dioxide, total [Moles /volume] in Serum or PlasmaOrdered By: Clifton Calderon on 10-05-2024 CO2 [Moles/Vol] Carbon dioxide, total [Moles/volume] in Serum or Plasma 21.0-31.0 [facility] Chloride [Moles/volume] in S bee or PlasmaOrdered By: Clifton Calderon on 10-05-2024 Chloride [Moles/Vol] Chloride [Moles/volume] in Serum or Plasma 98-107 [facility] Complete Blood Count Auto Di ffon 10-05-2024 Basophils (Bld) [#/Vol] 0.1 10*3/uL Normal 0.0-0.2 [facility] Comment on above: Result Comment: PERF ORMED BY: [facility] [address] [place] [address] PATHOLOGIST PAVING STONE INSTALLER NARESH VERA M.D. Performed By: #### G LULS #### Point of Care testing , Basophils/100 WBC (Bld) 0.4 % Normal . [facility] Comment on above: Performed By: #### G LULS #### Point of Care testing , Eosinophils (Bld) [#/Vol] 0.0 10*3/uL Normal 0.0-0.45 [facility] Comment on above: Performed By: #### G LULS #### Point of Care testing , Eosinophils/100 WBC (Bld) 0.1 % Normal . [facility] Comment on above: Performed By: #### G LULS #### Point of Care testing , Erythrocyte distribution width (RBC) [Ratio] 24.7 % High 12.0-14.8 [facility] Comment on above: Performed By: #### G LULS #### Point of Care testing , Hematocrit (Bld) [Volume fraction] 44.8 % Normal 38.8-50.0 [facility] Comment on above: Performed By: #### G LULS #### Point of Care testing , Hemoglobin (Bld) [Mass/Vol] 14.7 g/dL Normal 13.0-17.0 [facility] Comment on above: Performed By: #### G LULS #### Point of Care testing , Lymphocytes (Bld) [#/Vol] 1.3 10*3/uL Normal 1.00-4.8 [facility] Comment on above: Performed By: #### G LULS #### Point of Care testing , Lymphocytes/100 WBC (Bld) 9.3 % Normal . [facility] Comment on above: Performed By: #### G LULS #### Point of Care testing , MCH (RBC) [Entitic mass] 24.7 pg Low 27.5-35.2 [facility] Comment on above: Performed By: #### G LULS #### Point of Care testing , MCV (RBC) [Entitic vol] 75.2 fL Low 83.5-101 [facility] Comment on above: Performed By: #### G LULS #### Point of Care testing , Mean Corpuscular HGB Conc 32.9 g/dL Normal 32.5-35.6 [facility] Comment on above: Performed By: #### G LULS #### Point of Care testing , Monocytes (Bld) [#/Vol] 1.3 10*3/uL High 0.0-0.8 [facility] Comment on above: Performed By: #### G LULS #### Point of Care testing , Monocytes/100 WBC (Bld) 9.1 % Normal . [facility] Comment on above: Performed By: #### G LULS #### Point of Care testing , Neutrophils (Bld) [#/Vol] 11.5 10*3/uL High 1.8-7.7 [facility] Comment on above: Performed By: #### G LULS #### Point of Care testing , Neutrophils/100 WBC (Bld) 81.1 % Normal . [facility] Comment on above: Performed By: #### G LULS #### Point of Care testing , NRBC% 0.0 /100{WBC} Normal 0-0.5 [facility] Comment on above: Performed By: #### G LULS #### Point of Care testing , Platelet mean volume (Bld) [Entitic vol] 8.6 fL Normal 6.6-10.1 [facility] Comment on above: Performed By: #### G LULS #### Point of Care testing , Platelets (Bld) [#/Vol] 350 10*3/uL Normal 150-450 [facility] Comment on above: Performed By: #### G LULS #### Point of Care testing , RBC (Bld) [#/Vol] 5.95 10*6/uL High 3.90-5.60 [facility] Comment on above: Performed By: #### G LULS #### Point of Care testing , WBC (Bld) [#/Vol] 14.2 10*3/uL High 4.1-10.5 [facility] Comment on above: Performed By: #### G LULS #### Point of Care testing , Comprehensive Metabolic Pane serene 10-05-2024 Albumin [Mass/Vol] 4.0 g/dL Normal 3.5-5.7 [facility] Comment on above: Performed By: #### G LULS #### Point of Care testing , Albumin/Globulin [Mass ratio] 1.4 {ratio} Normal [facility] Comment on above: Performed By: #### G LULS #### Point of Care testing , ALP [Catalytic activity/Vol] 83 U/L Normal 34-104 [facility] Comment on above: Performed By: #### G LULS #### Point of Care testing , ALT [Catalytic activity/Vol] 10 U/L Normal 7-52 [facility] Comment on above: Performed By: #### G LULS #### Point of Care testing , Anion gap [Moles/Vol] 15.2 mmol/L High 6.0-15.0 [facility] Comment on above: Performed By: #### G LULS #### Point of Care testing , AST [Catalytic activity/Vol] 9 U/L Low 13-39 [facility] Comment on above: Performed By: #### G LULS #### Point of Care testing , Bilirubin [Mass/Vol] 0.3 mg/dL Normal 0.3-1.0 [facility] Comment on above: Performed By: #### G LULS #### Point of Care testing , Calcium [Mass/Vol] 9.0 mg/dL Normal 8.6-10.3 [facility] Comment on above: Performed By: #### G LULS #### Point of Care testing , Chloride [Moles/Vol] 100 mmol/L Normal 98-107 [facility] Comment on above: Performed By: #### G LULS #### Point of Care testing , CO2 [Moles/Vol] 28.2 mmol/L Normal 21.0-31.0 [facility] Comment on above: Performed By: #### G LULS #### Point of Care testing , Creatinine [Mass/Vol] 1.18 mg/dL Normal 0.70-1.30 [facility] Comment on above: Performed By: #### G LULS #### Point of Care testing , Creatinine Clr Calc Pharmacy 76.09 Normal [facility] Comment on above: Result Comment: PERF ORMED BY: [place] [address] [place] [address] PATHOLOGIST PAVING STONE INSTALLER NARESH VERA M.D. Performed By: #### G LULS #### Point of Care testing , GFR/1.73 sq M.predicted MDRD (S/P/Bld) [Vol rate/Area] mL/min/{1.73_m2} Normal [facility] Comment on above: Performed By: #### G LULS #### Point of Care testing , Globulin (S) [Mass/Vol] 2.8 g/dL Normal [facility] Comment on above: Performed By: #### G LULS #### Point of Care testing , Glucose [Mass/Vol] 157 mg/dL High 70-100 [facility] Comment on above: Result Comment: Nada Glucose Reference Range is dependent on time and content of last meal. Glucose of more than 200 mg/dL in a nonstressed, ambulatory subject supports the diagnosis of Diabetes Mellitus. ADA recommended reference range Performed By: #### G LULS #### Point of Care testing , Potassium [Moles/Vol] 4.4 mmol/L Normal 3.5-5.1 [facility] Comment on above: Performed By: #### G LULS #### Point of Care testing , Protein [Mass/Vol] 6.8 g/dL Normal 6.4-8.9 [facility] Comment on above: Performed By: #### G LULS #### Point of Care testing , Sodium [Moles/Vol] 139 mmol/L Normal 136-145 [facility] Comment on above: Performed By: #### G LULS #### Point of Care testing , Urea nitrogen [Mass/Vol] 31 mg/dL High 7-25 [facility] Comment on above: Performed By: #### G LULS #### Point of Care testing , Creatinine [Mass/volume] in Serum or PlasmaOrdered By: Clifton Calderon on 10-05-2024 Creatinine [Mass/Vol] Creatinine [Mass/volume] in Serum or Plasma 0.70-1.30 [facility] Eosinophils Auto (Bld) [#/Vo l]Ordered By: Clifton Calderon on 10-05-2024 Eosinophils (Bld) [#/Vol] Automated eosinophil count 0.0-0.45 [facility] Eosinophils/100 WBC Auto (Bl d)Ordered By: Clifton Calderon on 10-05-2024 Eosinophils/100 WBC (Bld) Automated eosinophil % . [facility] Erythrocyte distribution wid th Auto (RBC) [Ratio]Ordered By: Clifton Calderon on 10-05-2024 Erythrocyte distribution width (RBC) [Ratio] Erythrocyte distribution width [Ratio] by Automated count High 12.0-14.8 [facility] Globulin Calc (S) [Mass/Vol] Ordered By: Clifton Calderon on 10-05-2024 Globulin (S) [Mass/Vol] Serum globulin measurement by calculation (mass/volume) [facility] Glucose Glucometer (BldC) [M ass/Vol]Ordered By: Eden Greenwood on 10-05-2024 Glucose [Mass/Vol] Capillary blood glucose measurement by glucometer (mass/volume) [facility] Comment on above: Random Glucose Refer ence Range is dependent on time and content of last meal. Glucose of more than 200 mg/dL in a nonstressed, ambulatory subject supports the diagnosis of Diabetes Mellitus. Glucose Poct Glucometerson 0 10-05-2024 Glucose [Mass/Vol] 321 mg/dL Normal [facility] Comment on above: Result Comment: Nada om Glucose Reference Range is dependent on time and content of last meal. Glucose of more than 200 mg/dL in a nonstressed, ambulatory subject supports the diagnosis of Diabetes Mellitus. PERFORMED BY: [address] [place] [address] PATHOLOGIST PAVING STONE INSTALLER NARESH VERA M.D. Performed By: #### G LESLEE #### Point of Care testing , Glucose [Mass/Vol] 178 mg/dL Normal [facility] Comment on above: Result Comment: Nada om Glucose Reference Range is dependent on time and content of last meal. Glucose of more than 200 mg/dL in a nonstressed, ambulatory subject supports the diagnosis of Diabetes Mellitus. PERFORMED BY: [facility] [address] [place] [address] PATHOLOGIST PAVING STONE INSTALLER NARESH VERA M.D. Performed By: #### G LURONEY #### Point of Care testing , Glucose [Mass/volume] in Ser um or PlasmaOrdered By: Clifton Calderon on 10-05-2024 Glucose [Mass/Vol] Glucose [Mass/volume] in Serum or Plasma High 70-100 [facility] Comment on above: ADA recommended refe rence rangeRandom Glucose Reference Range is dependent on time and content of last meal. Glucose of more than 200 mg/dL in a nonstressed, ambulatory subject supports the diagnosis of Diabetes Mellitus. Hematocrit Auto (Bld) [Volum e fraction]Ordered By: Clifton Calderon on 10-05-2024 Hematocrit (Bld) [Volume fraction] Hematocrit [Volume Fraction] of Blood by Automated count 38.8-50.0 [facility] Hemoglobin [Mass/volume] in BloodOrdered By: Clifton Calderon on 10-05-2024 Hemoglobin (Bld) [Mass/Vol] Hemoglobin [Mass/volume] in Blood 13.0-17.0 [facility] Leukocytes [#/volume] correc yamil for nucleated erythrocytes in Blood by Automated counOrdered By: Clifton Calderon on 10-05-2024 WBC corrected for nucl RBC Auto (Bld) [#/Vol] Leukocytes [#/volume] corrected for nucleated erythrocytes in Blood by Automated coun High 4.1-10.5 [facility] Lymphocytes Auto (Bld) [#/Vo l]Ordered By: Clifton Calderon on 10-05-2024 Lymphocytes (Bld) [#/Vol] Lymphocytes [#/volume] in Blood by Automated count 1.00-4.8 [facility] Lymphocytes/100 WBC Auto (Bl d)Ordered By: Clifton Calderon on 10-05-2024 Lymphocytes/100 WBC (Bld) Lymphocytes/100 leukocytes in Blood by Automated count . [facility] MCH Auto (RBC) [Entitic mass ]Ordered By: Clifton Calderon on 10-05-2024 MCH (RBC) [Entitic mass] MCH [Entitic mass] by Automated count Low 27.5-35.2 [facility] MCHC Auto (RBC) [Mass/Vol]Or dered By: Clifton Calderon on 10-05-2024 MCHC (RBC) [Mass/Vol] MCHC [Mass/volume] by Automated count 32.5-35.6 [facility] MCV Auto (RBC) [Entitic vol] Ordered By: Clifton Calderon on 10-05-2024 MCV (RBC) [Entitic vol] MCV [Entitic vol ume] by Automated count Low 83.5-101 [facility] Monocytes Auto (Bld) [#/Vol] Ordered By: Clifton Calderon on 10-05-2024 Monocytes (Bld) [#/Vol] Automated blood monocyte count High 0.0-0.8 [facility] Monocytes/100 WBC Auto (Bld) Ordered By: Clifton Calderon on 10-05-2024 Monocytes/100 WBC (Bld) Automated monocyte % . [facility] Neutrophils Auto (Bld) [#/Vo l]Ordered By: Clifton Calderon on 10-05-2024 Neutrophils (Bld) [#/Vol] Neutrophils [#/volume] in Blood by Automated count High 1.8-7.7 [facility] Neutrophils/100 WBC Auto (Bl d)Ordered By: Clifton Calderon on 10-05-2024 Neutrophils/100 WBC (Bld) Automated neutrophil % . [facility] No Panel InformationOrdered By: Clifton Claderon on 10-05-2024 Estimated GFR (CKD-EPI) > 60.0 mL/Min [facility] Creatinine Clearance (Chem 76.09 [facility] Nucleated erythrocytes [Pres ence] in Blood by Automated countOrdered By: Clifton Calderon on 10-05-2024 Nucleated RBC Auto Ql (Bld) Nucleated erythrocytes [Presence] in Blood by Automated count 0-0.5 [facility] Platelet mean volume Auto (B ld) [Entitic vol]Ordered By: Clifton Calderon on 10-05-2024 Platelet mean volume (Bld) [Entitic vol] Platelet mean volume [Entitic volume] in Blood by Automated count 6.6-10.1 [facility] Platelets Auto (Bld) [#/Vol] Ordered By: Clifton Calderon on 10-05-2024 Platelets (Bld) [#/Vol] Platelets [#/vol ume] in Blood by Automated count 150-450 [facility] Potassium [Moles/volume] in Serum or PlasmaOrdered By: Clifton Calderon on 10-05-2024 Potassium [Moles/Vol] Potassium [Moles/volume] in Serum or Plasma 3.5-5.1 [facility] Protein [Mass/volume] in Ser um or PlasmaOrdered By: Clifton Calderon on 10-05-2024 Protein [Mass/Vol] Protein [Mass/volume] in Serum or Plasma 6.4-8.9 [facility] RBC Auto (Bld) [#/Vol]Ordere d By: Clifton Calderon on 10-05-2024 RBC (Bld) [#/Vol] Erythrocytes [#/volume] in Blood by Automated count High 3.90-5.60 [facility] Serum or plasma albumin/glob ulin mass ratioOrdered By: Clifton Calderon on 10-05-2024 Albumin/Globulin [Mass ratio] Serum or plasma albumin/globulin mass ratio [facility] Serum or plasma anion gap de terminationOrdered By: Clifton Calderon on 10-05-2024 Anion gap [Moles/Vol] Serum or plasma anion gap determination High 6.0-15.0 [facility] Sodium [Moles/volume] in Ser um or PlasmaOrdered By: Clifton Calderon on 10-05-2024 Sodium [Moles/Vol] Sodium [Moles/volume] in Serum or Plasma 136-145 [facility] Urea nitrogen [Mass/volume] in Serum or PlasmaOrdered By: Clifton Calderon on 10-05-2024 Urea nitrogen [Mass/Vol] Urea nitrogen [Mass/volume] in Serum or Plasma High 7-25 [facility] WBC Auto (Bld) [#/Vol]Ordere d By: Clifton Calderon on 10-05-2024 WBC (Bld) [#/Vol] Leukocytes [#/volume] in Blood by Automated count High 4.1-10.5 [facility] Alanine aminotransferase [En zymatic activity/volume] in Serum or PlasmaOrdered By: Pranay Bai on 10-04-2024 ALT [Catalytic activity/Vol] Alanine aminotransferase [Enzymatic activity/volume] in Serum or Plasma 7-52 [facility] Albumin [Mass/volume] in Ser um or Plasma by Bromocresol green (BCG) dye binding methoOrdered By: Pranay Bai on 10-04-2024 Albumin BCG dye [Mass/Vol] Albumin [Mass/volume] in Serum or Plasma by Bromocresol green (BCG) dye binding metho 3.5-5.7 [facility] Alkaline phosphatase [Enzyma tic activity/volume] in Serum or PlasmaOrdered By: Pranay Bai on 10-04-2024 ALP [Catalytic activity/Vol] Alkaline phosphatase [Enzymatic activity/volume] in Serum or Plasma High 34-104 [facility] Anisocytosis LM Ql (Bld)Orde red By: Pranay Bai on 10-04-2024 Anisocytosis Ql (Bld) Anisocytosis [Presence] in Blood by Light microscopy [facility] Aspartate aminotransferase [ Enzymatic activity/volume] in Serum or PlasmaOrdered By: Pranay Bai on 10-04-2024 AST [Catalytic activity/Vol] Aspartate aminotransferase [Enzymatic activity/volume] in Serum or Plasma 13-39 [facility] B-Type Natriuretic Peptideon 10-04-2024 Natriuretic peptide B (Bld) [Mass/Vol] 32.0 pg/mL Normal 5-100 [facility] Comment on above: Result Comment: PERF ORMED BY: [place] [address] PATHOLOGIST [employer] NARESH VERA M.D. Performed By: #### S CAN CBC, CK, HS TROP, BNP, CMP #### [address] Basophils Auto (Bld) [#/Vol] Ordered By: Pranay Bai on 10-04-2024 Basophils (Bld) [#/Vol] Automated basoph il count 0.0-0.2 [facility] Basophils/100 WBC Auto (Bld) Ordered By: Pranay Bai on 10-04-2024 Basophils/100 WBC (Bld) Automated basophil % . [facility] Bilirubin.total [Mass/volume ] in Serum or PlasmaOrdered By: Pranay Bai on 10-04-2024 Bilirubin [Mass/Vol] Bilirubin.total [Mass/volume] in Serum or Plasma 0.3-1.0 [facility] BioFire Detectedon BioFire Detected Detected Critically abnormal Not Detecte [facility] Comment on above: Result Comment: This is a duplicate RP2.1 COVID (PCR) result to be used for statistical tracking purpose only. PERFORMED BY: [place] [address] PATHOLOGIST [employer] NARESH VERA M.D. Performed By: #### G LULS #### Point of Care testing , COVID-19 Detected/Not Detect edOrdered By: Clifton Calderon on 10-04-2024 SARS-CoV-2 (COVID-19) RNA YOLANDA+non-probe Ql (Nph) Not detected Abnormal Not Detecte [facility] Comment on above: This is a duplicate RP2.1 COVID (PCR) result to be used for statistical tracking purpose only. Calcium [Mass/volume] in Ser um or PlasmaOrdered By: Pranay Bai on 10-04-2024 Calcium [Mass/Vol] Calcium [Mass/volume] in Serum or Plasma 8.6-10.3 [facility] Carbon dioxide, total [Moles /volume] in Serum or PlasmaOrdered By: Pranay Bai on 10-04-2024 CO2 [Moles/Vol] Carbon dioxide, total [Moles/volume] in Serum or Plasma 21.0-31.0 [facility] Chloride [Moles/volume] in S bee or PlasmaOrdered By: Pranay Bai on 10-04-2024 Chloride [Moles/Vol] Chloride [Moles/volume] in Serum or Plasma 98-107 [facility] Complete Blood Count Auto Di ffon 10-04-2024 Basophils (Bld) [#/Vol] 0.0 10*3/uL Normal 0.0-0.2 [facility] Comment on above: Result Comment: PERF ORMED BY: [place] [address] PATHOLOGIST [employer] NARESH VERA M.D. Performed By: #### C MP, CBC, MG #### [facility] [address] [place] [address] [place] Basophils/100 WBC (Bld) 0.5 % Normal . [facility] Comment on above: Performed By: #### C MP, CBC, MG #### [facility] [address] [place] [address] [place] Eosinophils (Bld) [#/Vol] 0.0 10*3/uL Normal 0.0-0.45 [facility] Comment on above: Performed By: #### C MP, CBC, MG #### [facility] [address] [place] [address] [place] Eosinophils/100 WBC (Bld) 0.2 % Normal . [facility] Comment on above: Performed By: #### C MP, CBC, MG #### [address] Erythrocyte distribution width (RBC) [Ratio] 24.9 % High 12.0-14.8 [facility] Comment on above: Performed By: #### C MP, CBC, MG #### [address] Hematocrit (Bld) [Volume fraction] 48.8 % Normal 38.8-50.0 [facility] Comment on above: Performed By: #### C MP, CBC, MG #### [address] Hemoglobin (Bld) [Mass/Vol] 16.0 g/dL Normal 13.0-17.0 [facility] Comment on above: Performed By: #### C MP, CBC, MG #### [address] Lymphocytes (Bld) [#/Vol] 0.6 10*3/uL Low 1.00-4.8 [facility] Comment on above: Performed By: #### C MP, CBC, MG #### [address] Lymphocytes/100 WBC (Bld) 7.2 % Normal . [facility] Comment on above: Performed By: #### C MP, CBC, MG #### [address] MCH (RBC) [Entitic mass] 25.0 pg Low 27.5-35.2 [facility] Comment on above: Performed By: #### C MP, CBC, MG #### [address] MCV (RBC) [Entitic vol] 76.3 fL Low 83.5-101 [facility] Comment on above: Performed By: #### C MP, CBC, MG #### [address] Mean Corpuscular HGB Conc 32.8 g/dL Normal 32.5-35.6 [facility] Comment on above: Performed By: #### C MP, CBC, MG #### [address] Monocytes (Bld) [#/Vol] 0.3 10*3/uL Normal 0.0-0.8 [facility] Comment on above: Performed By: #### C MP, CBC, MG #### [address] Monocytes/100 WBC (Bld) 3.4 % Normal . [facility] Comment on above: Performed By: #### C MP, CBC, MG #### [address] Neutrophils (Bld) [#/Vol] 7.3 10*3/uL Normal 1.8-7.7 [facility] Comment on above: Performed By: #### C MP, CBC, MG #### [address] Neutrophils/100 WBC (Bld) 88.7 % Normal . [facility] Comment on above: Performed By: #### C MP, CBC, MG #### [address] NRBC% 0.2 /100{WBC} Normal 0-0.5 [facility] Comment on above: Performed By: #### C MP, CBC, MG #### [address] Platelet mean volume (Bld) [Entitic vol] 8.2 fL Normal 6.6-10.[address] [facility] Comment on above: Performed By: #### C MP, CBC, MG #### [address] Platelets (Bld) [#/Vol] 272 10*3/uL Normal 150-450 [facility] Comment on above: Performed By: #### C MP, CBC, MG #### [address] RBC (Bld) [#/Vol] 6.39 10*6/uL High 3.90-5.60 [facility] Comment on above: Performed By: #### C MP, CBC, MG #### [address] WBC (Bld) [#/Vol] 8.2 10*3/uL Normal 4.1-10.5 [facility] Comment on above: Performed By: #### C MP, CBC, MG #### [address] Comprehensive Metabolic Pane esrene 10-04-2024 Albumin [Mass/Vol] 4.3 g/dL Normal 3.5-5.7 [facility] Comment on above: Performed By: #### C MP, CBC, MG #### [address] Albumin/Globulin [Mass ratio] 1.5 {ratio} Normal [facility] Comment on above: Performed By: #### C MP, CBC, MG #### [address] ALP [Catalytic activity/Vol] 97 U/L Normal 34-104 [facility] Comment on above: Performed By: #### C MP, CBC, MG #### [address] ALT [Catalytic activity/Vol] 12 U/L Normal 7-52 [facility] Comment on above: Performed By: #### C MP, CBC, MG #### [address] Anion gap [Moles/Vol] 19.3 mmol/L High 6.0-15.0 [facility] Comment on above: Performed By: #### C MP, CBC, MG #### [address] AST [Catalytic activity/Vol] 12 U/L Low 13-39 [facility] Comment on above: Performed By: #### C MP, CBC, MG #### [facility] [address] Bilirubin [Mass/Vol] 0.4 mg/dL Normal 0.3-1.0 [facility] Comment on above: Performed By: #### C MP, CBC, MG #### [facility] [address] Calcium [Mass/Vol] 8.8 mg/dL Normal 8.6-10.3 [facility] Comment on above: Performed By: #### C MP, CBC, MG #### [address] Chloride [Moles/Vol] 102 mmol/L Normal 98-107 [facility] Comment on above: Performed By: #### C MP, CBC, MG #### [address] CO2 [Moles/Vol] 22.4 mmol/L Normal 21.0-31.0 [facility] Comment on above: Performed By: #### C MP, CBC, MG #### [address] Creatinine [Mass/Vol] 1.10 mg/dL Normal 0.70-1.30 [facility] Comment on above: Performed By: #### C MP, CBC, MG #### [place] [address] [place] Creatinine Clr Calc Pharmacy 82.74 Normal [facility] Comment on above: Performed By: #### C MP, CBC, MG #### [place] [address] [place] GFR/1.73 sq M.predicted MDRD (S/P/Bld) [Vol rate/Area] mL/min/{1.73_m2} Normal [facility] Comment on above: Performed By: #### C MP, CBC, MG #### [place] [address] [place] Globulin (S) [Mass/Vol] 2.9 g/dL Normal [facility] Comment on above: Performed By: #### C MP, CBC, MG #### [address] Glucose [Mass/Vol] 183 mg/dL High 70-100 [facility] Comment on above: Result Comment: [facility] [place] Glucose Reference Range is dependent on time and content of last meal. Glucose of more than 200 mg/dL in a nonstressed, ambulatory subject supports the diagnosis of Diabetes Mellitus. ADA recommended reference range Performed By: #### C MP, CBC, MG #### [address] Potassium [Moles/Vol] 4.7 mmol/L Normal 3.5-5.1 [facility] Comment on above: Performed By: #### C MP, CBC, MG #### [address] Protein [Mass/Vol] 7.2 g/dL Normal 6.4-8.9 [facility] Comment on above: Performed By: #### C MP, CBC, MG #### [address] Sodium [Moles/Vol] 139 mmol/L Normal 136-145 [facility] Comment on above: Performed By: #### C MP, CBC, MG #### [address] Urea nitrogen [Mass/Vol] 18 mg/dL Normal 7-25 [facility] Comment on above: Performed By: #### C MP, CBC, MG #### [address] Albumin [Mass/Vol] 4.7 g/dL Normal 3.5-5.7 [facility] Comment on above: Performed By: #### S CAN CBC, CK, HS TROP, BNP, CMP #### [address] Albumin/Globulin [Mass ratio] 1.3 {ratio} Normal [facility] Comment on above: Performed By: #### S CAN CBC, CK, HS TROP, BNP, CMP #### [place] [address] [place] ALP [Catalytic activity/Vol] 112 U/L High 34-104 [facility] Comment on above: Performed By: #### S CAN CBC, CK, HS TROP, BNP, CMP #### [address] ALT [Catalytic activity/Vol] 14 U/L Normal 7-52 [facility] Comment on above: Performed By: #### S CAN CBC, CK, HS TROP, BNP, CMP #### [address] Anion gap [Moles/Vol] 19.8 mmol/L High 6.0-15.0 [facility] Comment on above: Performed By: #### S CAN CBC, CK, HS TROP, BNP, CMP #### [address] AST [Catalytic activity/Vol] 15 U/L Normal 13-39 [facility] Comment on above: Performed By: #### S CAN CBC, CK, HS TROP, BNP, CMP #### [address] Bilirubin [Mass/Vol] 0.5 mg/dL Normal 0.3-1.0 [facility] Comment on above: Performed By: #### S CAN CBC, CK, HS TROP, BNP, CMP #### [address] Calcium [Mass/Vol] 9.8 mg/dL Normal 8.6-10.3 [facility] Comment on above: Performed By: #### S CAN CBC, CK, HS TROP, BNP, CMP #### [place] [address] [place] Chloride [Moles/Vol] 100 mmol/L Normal 98-107 [facility] Comment on above: Performed By: #### S CAN CBC, CK, HS TROP, BNP, CMP #### [address] CO2 [Moles/Vol] 24.6 mmol/L Normal 21.0-31.0 [facility] Comment on above: Performed By: #### S CAN CBC, CK, HS TROP, BNP, CMP #### [address] Creatinine [Mass/Vol] 1.26 mg/dL Normal 0.70-1.30 [facility] Comment on above: Performed By: #### S CAN CBC, CK, HS TROP, BNP, CMP #### [address] Creatinine Clr Calc Pharmacy 72.23 Normal [facility] Comment on above: Result Comment: PERF ORMED BY: [place] [address] PATHOLOGIST [employer] NARESH VERA M.D. Performed By: #### S CAN CBC, CK, HS TROP, BNP, CMP #### [address] GFR/1.73 sq M.predicted MDRD (S/P/Bld) [Vol rate/Area] mL/min/{1.73_m2} Normal [facility] Comment on above: Performed By: #### S CAN CBC, CK, HS TROP, BNP, CMP #### [address] Globulin (S) [Mass/Vol] 3.5 g/dL Normal [facility] Comment on above: Performed By: #### S CAN CBC, CK, HS TROP, BNP, CMP #### [address] Glucose [Mass/Vol] 206 mg/dL High 70-100 [facility] Comment on above: Result Comment: [facility] Glucose Reference Range is dependent on time and content of last meal. Glucose of more than 200 mg/dL in a nonstressed, ambulatory subject supports the diagnosis of Diabetes Mellitus. ADA recommended reference range Performed By: #### S CAN CBC, CK, HS TROP, BNP, CMP #### [address] Potassium [Moles/Vol] 5.4 mmol/L High 3.5-5.1 [facility] Comment on above: Performed By: #### S CAN CBC, CK, HS TROP, BNP, CMP #### [address] Protein [Mass/Vol] 8.2 g/dL Normal 6.4-8.9 [facility] Comment on above: Performed By: #### S CAN CBC, CK, HS TROP, BNP, CMP #### [address] Sodium [Moles/Vol] 139 mmol/L Normal 136-145 [facility] Comment on above: Performed By: #### S CAN CBC, CK, HS TROP, BNP, CMP #### [address] Urea nitrogen [Mass/Vol] 15 mg/dL Normal 7-25 [facility] Comment on above: Performed By: #### S CAN CBC, CK, HS TROP, BNP, CMP #### [address] Creatine Kinaseon 10-04-2024 CK [Catalytic activity/Vol] 58 U/L Normal 30-223 [facility] Comment on above: Performed By: #### S CAN CBC, CK, HS TROP, BNP, CMP #### [address] Creatine kinase [Enzymatic a ctivity/volume] in Serum or PlasmaOrdered By: Pranay Bai on 10-04-2024 CK [Catalytic activity/Vol] Creatine kinase [Enzymatic activity/volume] in Serum or Plasma 30- [facility] Creatinine [Mass/volume] in Serum or PlasmaOrdered By: Pranay Bai on 10-04-2024 Creatinine [Mass/Vol] Creatinine [Mass/volume] in Serum or Plasma 0.70-1.30 [facility] Eosinophils Auto (Bld) [#/Vo l]Ordered By: Pranay Bai on 10-04-2024 Eosinophils (Bld) [#/Vol] Automated eosinophil count 0.0-0.45 [facility] Eosinophils/100 WBC Auto (Bl d)Ordered By: Pranay Bai on 10-04-2024 Eosinophils/100 WBC (Bld) Automated eosinophil % . [facility] Erythrocyte distribution wid th Auto (RBC) [Ratio]Ordered By: Pranay Bai on 10-04-2024 Erythrocyte distribution width (RBC) [Ratio] Erythrocyte distribution width [Ratio] by Automated count High 12.0-14.8 [facility] Erythrocyte morphology findi ng [Identifier] in BloodOrdered By: Pranay Bai on 10-04-2024 RBC morphology finding Nom (Bld) RBC morphology [facility] Globulin Calc (S) [Mass/Vol] Ordered By: Pranay Bai on 10-04-2024 Globulin (S) [Mass/Vol] Serum globulin measurement by calculation (mass/volume) [facility] Glucose Poct Glucometerson 0 10-04-2024 Glucose [Mass/Vol] 305 mg/dL Normal [facility] Comment on above: Result Comment: [facility] [place] Glucose Reference Range is dependent on time and content of last meal. Glucose of more than 200 mg/dL in a nonstressed, ambulatory subject supports the diagnosis of Diabetes Mellitus. PERFORMED BY: [facility] [address] [place] [address] PATHOLOGIST [employer]ST[employer] NARESH VERA M.D. Performed By: #### G LULS #### Point of Care testing , Glucose [Mass/Vol] 395 mg/dL Normal [facility] Comment on above: Result Comment: [facility] [place] Glucose Reference Range is dependent on time and content of last meal. Glucose of more than 200 mg/dL in a nonstressed, ambulatory subject supports the diagnosis of Diabetes Mellitus. PERFORMED BY: [facility] [address] [place] [address] PATHOLOGIST [employer] INST[employer]ER NARESH VERA M.D. Performed By: #### G LULS #### Point of Care testing , Glucose [Mass/Vol] 288 mg/dL Normal [facility] Comment on above: Result Comment: [facility] [place] Glucose Reference Range is dependent on time and content of last meal. Glucose of more than 200 mg/dL in a nonstressed, ambulatory subject supports the diagnosis of Diabetes Mellitus. PERFORMED BY: [facility] [address] [place] [address] PATHOLOGIST [employer] NARESH VERA M.D. Performed By: #### G LESLEE #### Point of Care testing , Glucose [Mass/Vol] 174 mg/dL Normal [facility] Comment on above: Result Comment: Nada om Glucose Reference Range is dependent on time and content of last meal. Glucose of more than 200 mg/dL in a nonstressed, ambulatory subject supports the diagnosis of Diabetes Mellitus. PERFORMED BY: [facility] [address] [place] [address] PATHOLOGIST [employer]ST[employer] NARESH VERA M.D. Performed By: #### G LESLEE #### Point of Care testing , Glucose [Mass/volume] in Ser um or PlasmaOrdered By: Pranay Bai on 10-04-2024 Glucose [Mass/Vol] Glucose [Mass/volume] in Serum or Plasma High 70-100 [facility] Comment on above: ADA recommended refe rence rangeRandom Glucose Reference Range is dependent on time and content of last meal. Glucose of more than 200 mg/dL in a nonstressed, ambulatory subject supports the diagnosis of Diabetes Mellitus. Hematocrit Auto (Bld) [Volum e fraction]Ordered By: Pranay Bai on 10-04-2024 Hematocrit (Bld) [Volume fraction] Hematocrit [Volume Fraction] of Blood by Automated count High 38.8-50.0 [facility] Hemoglobin [Mass/volume] in BloodOrdered By: Pranay Bai on 10-04-2024 Hemoglobin (Bld) [Mass/Vol] Hemoglobin [Mass/volume] in Blood High 13.0-17.0 [facility] Hypochromia LM Ql (Bld)Order ed By: Pranay Bai on 10-04-2024 Hypochromia Ql (Bld) Hypochromia [Presence] in Blood by Light microscopy [facility] Leukocytes [#/volume] correc yamil for nucleated erythrocytes in Blood by Automated counOrdered By: Pranay Bai on 10-04-2024 WBC corrected for nucl RBC Auto (Bld) [#/Vol] Leukocytes [#/volume] corrected for nucleated erythrocytes in Blood by Automated coun High 4.1-10.5 [facility] Lymphocytes Auto (Bld) [#/Vo l]Ordered By: Pranay Bai on 10-04-2024 Lymphocytes (Bld) [#/Vol] Lymphocytes [#/volume] in Blood by Automated count 1.00-4.8 [facility] Lymphocytes/100 WBC Auto (Bl d)Ordered By: Pranay Bai on 10-04-2024 Lymphocytes/100 WBC (Bld) Lymphocytes/100 leukocytes in Blood by Automated count . [facility] MCH Auto (RBC) [Entitic mass ]Ordered By: Pranay Bai on 10-04-2024 MCH (RBC) [Entitic mass] MCH [Entitic mass] by Automated count Low 27.5-35.2 [facility] MCHC Auto (RBC) [Mass/Vol]Or dered By: Pranay Bai on 10-04-2024 MCHC (RBC) [Mass/Vol] MCHC [Mass/volume] by Automated count Low 32.5-35.6 [facility] [facility] MCV Auto (RBC) [Entitic vol] Ordered By: Pranay Bai on 10-04-2024 MCV (RBC) [Entitic vol] MCV [Entitic vol ume] by Automated count Low 83.5-101 [facility] Magnesiumon 10-04-2024 Magnesium [Mass/Vol] 2.2 mg/dL Normal 1.9-2.7 [facility] Comment on above: Result Comment: PERF ORMED BY: [place] [address] PATHOLOGIST [employer]ING [employer] INSTALLER NARESH VERA M.D. Performed By: #### C MP, CBC, MG #### [address] Magnesium [Mass/volume] in S bee or PlasmaOrdered By: Clifton Calderon on 10-04-2024 Magnesium [Mass/Vol] Magnesium [Mass/volume] in Serum or Plasma 1.9-2.7 [facility] Microcytes LM Ql (Bld)Ordere d By: Pranay Bai on 10-04-2024 Microcytes Ql (Bld) Microcytes [Presence] in Blood by Light microscopy [facility] Monocyte distribution width [Entitic volume] in Blood by AutomatedOrdered By: Pranay Bai on 10-04-2024 Monocyte distribution width Auto (Bld) [Entitic vol] Monocyte distribution width [Entitic volume] in Blood by Automated High 0.00-20.00 [facility] Comment on above: For adults in ED, MD W > 20.0 may be associated with a higher risk of sepsis during the first 12 hrs of hospital admission Monocytes Auto (Bld) [#/Vol] Ordered By: Pranay Bai on 10-04-2024 Monocytes (Bld) [#/Vol] Automated blood monocyte count High 0.0-0.8 [facility] Monocytes/100 WBC Auto (Bld) Ordered By: Pranay Bai on 10-04-2024 Monocytes/100 WBC (Bld) Automated monocyte % . [facility] Natriuretic peptide B [Mass/ Vol]Ordered By: Pranay Bai on 10-04-2024 Natriuretic peptide B (Bld) [Mass/Vol] BNP ser/plas 5-100 [facility] Neutrophils Auto (Bld) [#/Vo l]Ordered By: Pranay Bai on 10-04-2024 Neutrophils (Bld) [#/Vol] Neutrophils [#/volume] in Blood by Automated count High 1.8-7.7 [facility] Neutrophils/100 WBC Auto (Bl d)Ordered By: Pranay Bai on 10-04-2024 Neutrophils/100 WBC (Bld) Automated neutrophil % . [facility] No Panel InformationOrdered By: Pranay Bai on 10-04-2024 Blood Gas Critical Value See comment [facility] Comment on above: Critical Value mahsa bran on: 10/04/2024 at 00:11 Blood Gas Liter Flow 3 [facility] Blood Gas Sample Site Venous Fir [facility] FiO2 32 % [facility] Venous Blood Base Excess -1.5 mmol/L -3.0-3.0 [facility] Venous Blood Oxygen Content 4.9 mmol/L Low 6.6-9.7 [facility] Venous Blood Oxygen Saturation 43.8 % Critically low 73.0-76.0 [facility] Venous Blood Partial Pressure CO2 48.8 mm[Hg] 38.0-50.0 [facility] Venous Blood Partial Pressure O2 26.1 mm[Hg] Low 35.0-45.0 [facility] Venous Blood pH 7.33 7.32-7.43 [facility] Estimated GFR (CKD-EPI) > 60.0 mL/Min [facility] Creatinine Clearance (Chem 72.23 [facility] Nucleated erythrocytes [Pres ence] in Blood by Automated countOrdered By: Pranay Bai on 10-04-2024 Nucleated RBC Auto Ql (Bld) Nucleated erythrocytes [Presence] in Blood by Automated count 0-0.5 [facility] Platelet adequacy [Presence] in Blood by Light microscopyOrdered By: Pranay Bai on 10-04-2024 Platelets LM Ql (Bld) Platelet adequacy [Presence] in Blood by Light microscopy Normal [facility] Platelet mean volume Auto (B ld) [Entitic vol]Ordered By: Pranay Bai on 10-04-2024 Platelet mean volume (Bld) [Entitic vol] Platelet mean volume [Entitic volume] in Blood by Automated count 6.6-10.1 [facility] Platelet morphology finding [Identifier] in BloodOrdered By: Pranay Bai on 10-04-2024 Platelet morphology finding Nom (Bld) Platelet morphology finding [Identifier] in Blood Normal [facility] Platelets Auto (Bld) [#/Vol] Ordered By: Pranay Bai on 10-04-2024 Platelets (Bld) [#/Vol] Platelets [#/vol ume] in Blood by Automated count 150-450 [facility] Polychromasia [Presence] in Blood by Light microscopyOrdered By: Pranay Bai on 10-04-2024 Polychromasia LM Ql (Bld) Polychromasia [Presence] in Blood by Light microscopy [facility] Potassium [Moles/volume] in Serum or PlasmaOrdered By: Pranay Bai on 10-04-2024 Potassium [Moles/Vol] Potassium [Moles/volume] in Serum or Plasma High 3.5-5.1 [facility] Protein [Mass/volume] in Ser um or PlasmaOrdered By: Pranay Bai on 10-04-2024 Protein [Mass/Vol] Protein [Mass/volume] in Serum or Plasma 6.4-8.9 [facility] RBC Auto (Bld) [#/Vol]Ordere d By: Pranay Bai on 10-04-2024 RBC (Bld) [#/Vol] Erythrocytes [#/volume] in Blood by Automated count High 3.90-5.60 [facility] Respiratory (Upper) Panel, P CRon 10-04-2024 Respiratory (Upper) Panel, PCR Adenovirus Not detected Bordetella parapertussis Not detected Chlamydia pneumoniae Not detected Coronavirus 229E Not detected Coronavirus HKU1 Not detected Coronavirus NL63 Not detected Coronavirus OC43 Not detected Influenza A Not detected Influenza B Not detected Human Metapneumovirus Not detected Mycoplasma pneumoniae Not detected Parainfluenza Virus 1 Not detected Parainfluenza Virus 2 Not detected Parainfluenza Virus 3 Not detected Parainfluenza Virus 4 Not detected Bordetella pertussis-ptxP Not detected Human Rhino/Enterovirus Not detected Resp. Syncytial Virus Not detected COVID19 Blank Space COVID19 Det Results Detected results will only be called to COVID19 Det Results Providers for Inpatients. COVID19 Blank Space COVID-19 Detected/Not Detected Detected Blank Space FLUA TEST INCLUDES Influenza A tests for the following clinically FLUA TEST INCLUDES significant subtypes: FLUA TEST INCLUDES - Influenza A FLUA TEST INCLUDES - Influenza A H1 FLUA TEST INCLUDES - Influenza A H1 2008 FLUA TEST INCLUDES - Influenza A H3 Blank Space PERFORMED BY: [facility] [place] [address] PATHOLOGIST [employer] INSTALLER NARESH VERA M.D. Normal [facility] Comment on above: Performed By: #### G LESLEE #### Point of Care testing , Respiratory pathogens DNA an d RNA panel - Nasopharynx by YOLANDA with non-probe detectionOrdered By: Clifton Calderon on 10-04-2024 Respiratory pathogens DNA and RNA panel YOLANDA+non-probe (Nph) Respiratory pathogens DNA and RNA panel - Nasopharynx by YOLANDA with non-probe detection [facility] Scan and CBCon 10-04-2024 Anisocytosis Ql (Bld) Marked Normal [facility] Comment on above: Performed By: #### S CAN CBC, CK, HS TROP, BNP, CMP #### [address] Basophils (Bld) [#/Vol] 0.1 10*3/uL Normal 0.0-0.2 [facility] Comment on above: Performed By: #### S CAN CBC, CK, HS TROP, BNP, CMP #### [address] Basophils/100 WBC (Bld) 0.7 % Normal . [facility] Comment on above: Performed By: #### S CAN CBC, CK, HS TROP, BNP, CMP #### [address] Eosinophils (Bld) [#/Vol] 0.0 10*3/uL Normal 0.0-0.45 [facility] Comment on above: Performed By: #### S CAN CBC, CK, HS TROP, BNP, CMP #### [address] Eosinophils/100 WBC (Bld) 0.2 % Normal . [facility] Comment on above: Performed By: #### S CAN CBC, CK, HS TROP, BNP, CMP #### [address] Erythrocyte distribution width (RBC) [Ratio] 24.6 % High 12.0-14.8 [facility] Comment on above: Performed By: #### S CAN CBC, CK, HS TROP, BNP, CMP #### [address] Hematocrit (Bld) [Volume fraction] 55.3 % High 38.8-50.0 [facility] Comment on above: Performed By: #### S CAN CBC, CK, HS TROP, BNP, CMP #### [address] Hemoglobin (Bld) [Mass/Vol] 17.8 g/dL High 13.0-17.0 [facility] Comment on above: Performed By: #### S CAN CBC, CK, HS TROP, BNP, CMP #### [address] Hypochromasia Slight Normal [facility] Comment on above: Performed By: #### S CAN CBC, CK, HS TROP, BNP, CMP #### [address] Lymphocytes (Bld) [#/Vol] 1.5 10*3/uL Normal 1.00-4.8 [facility] Comment on above: Performed By: #### S CAN CBC, CK, HS TROP, BNP, CMP #### [address] Lymphocytes/100 WBC (Bld) 11.7 % Normal . [facility] Comment on above: Performed By: #### S CAN CBC, CK, HS TROP, BNP, CMP #### [address] MCH (RBC) [Entitic mass] 24.8 pg Low 27.5-35.2 [facility] Comment on above: Performed By: #### S CAN CBC, CK, HS TROP, BNP, CMP #### [address] MCV (RBC) [Entitic vol] 77.2 fL Low 83.5-101 [facility] Comment on above: Performed By: #### S CAN CBC, CK, HS TROP, BNP, CMP #### [address] Mean Corpuscular HGB Conc 32.1 g/dL Low 32.5-35.6 [facility] Comment on above: Performed By: #### S CAN CBC, CK, HS TROP, BNP, CMP #### [address] Microcytosis Marked Normal [facility] Comment on above: Performed By: #### S CAN CBC, CK, HS TROP, BNP, CMP #### [place] [address] [place] Monocytes (Bld) [#/Vol] 1.6 10*3/uL High 0.0-0.8 [facility] Comment on above: Performed By: #### S CAN CBC, CK, HS TROP, BNP, CMP #### [address] Monocytes/100 WBC (Bld) 21.22 % High 0.00-20.00 [facility] Comment on above: Result Comment: For adults in ED, MDW > 20.0 may be associated with a higher risk of sepsis during the first 12 hrs of hospital admission Performed By: #### S CAN CBC, CK, HS TROP, BNP, CMP #### [address] Monocytes/100 WBC (Bld) 12.6 % Normal . [facility] Comment on above: Performed By: #### S CAN CBC, CK, HS TROP, BNP, CMP #### [place] [address] [place] Neutrophils (Bld) [#/Vol] 9.5 10*3/uL High 1.8-7.7 [facility] Comment on above: Performed By: #### S CAN CBC, CK, HS TROP, BNP, CMP #### [place] [address] [place] Neutrophils/100 WBC (Bld) 74.8 % Normal . [facility] Comment on above: Performed By: #### S CAN CBC, CK, HS TROP, BNP, CMP #### [address] NRBC% 0.2 /100{WBC} Normal 0-0.5 [facility] Comment on above: Performed By: #### S CAN CBC, CK, HS TROP, BNP, CMP #### [address] Platelet Estimate Normal Normal Normal [facility] Comment on above: Performed By: #### S CAN CBC, CK, HS TROP, BNP, CMP #### [address] Platelet mean volume (Bld) [Entitic vol] 8.1 fL Normal 6.6-10.[address] [facility] Comment on above: Performed By: #### S CAN CBC, CK, HS TROP, BNP, CMP #### [address] Platelet Morphology Normal Normal Normal [facility] Comment on above: Result Comment: PERF ORMED BY: [place] [address] PATHOLOGIST P[employer]ING [employer] INSTALLER NARESH VERA M.D. Performed By: #### S CAN CBC, CK, HS TROP, BNP, CMP #### [address] Platelets (Bld) [#/Vol] 315 10*3/uL Normal 150-450 [facility] Comment on above: Performed By: #### S CAN CBC, CK, HS TROP, BNP, CMP #### [address] Polychromasia Moderate Normal [facility] Comment on above: Performed By: #### S CAN CBC, CK, HS TROP, BNP, CMP #### [address] RBC (Bld) [#/Vol] 7.16 10*6/uL High 3.90-5.60 [facility] Comment on above: Performed By: #### S CAN CBC, CK, HS TROP, BNP, CMP #### [address] [place] [address] [place] WBC (Bld) [#/Vol] 12.7 10*3/uL High 4.1-10.5 [facility] Comment on above: Performed By: #### S CAN CBC, CK, HS TROP, BNP, CMP #### [address] WBC (Bld) [#/Vol] 13.8 10*3/uL High 4.1-10.5 [facility] Comment on above: Performed By: #### S CAN CBC, CK, HS TROP, BNP, CMP #### [address] Serum or plasma albumin/glob ulin mass ratioOrdered By: Pranay Bai on 10-04-2024 Albumin/Globulin [Mass ratio] Serum or plasma albumin/globulin mass ratio [facility] Serum or plasma anion gap de terminationOrdered By: Pranay Bai on 10-04-2024 Anion gap [Moles/Vol] Serum or plasma anion gap determination High 6.0-15.0 [facility] Sodium [Moles/volume] in Ser um or PlasmaOrdered By: Pranay Bai on 10-04-2024 Sodium [Moles/Vol] Sodium [Moles/volume] in Serum or Plasma 136-145 [facility] Troponin I High Sensitivityo n 10-04-2024 Troponin I High Sensitivity 27 High 0-20 [facility] Comment on above: Result Comment: The Troponin units of report have been changed to meet the Chest Pain Accreditation requirement, element EC5.M1l2. Troponin units are changed from pg/ml to ng/L. Also, the decimal is removed and results are in whole numbers. PERFORMED BY: [place] [address] PATHOLOGIST P[employer]ING [employer] INSTALLER NARESH VERA M.D. Performed By: #### S CAN CBC, CK, HS TROP, BNP, CMP #### [address] Troponin I.cardiac [Mass/vol ume] in Serum or Plasma by Detection limit <= 0.01 ng/Ordered By: Pranay Bai on 10-04-2024 Troponin I.cardiac DL <= 0.01 ng/mL [Mass/Vol] Troponin I.cardiac [Mass/volume] in Serum or Plasma by Detection limit <= 0.01 ng/ High [facility] Comment on above: The Troponin units o f report have been changed to meet the Chest Pain Accreditation requirement, element EC5.M1l2. Troponin units are changed from pg/ml to ng/L. Also, the decimal is removed and results are in whole numbers. Urea nitrogen [Mass/volume] in Serum or PlasmaOrdered By: Pranay Bai on 10-04-2024 Urea nitrogen [Mass/Vol] Urea nitrogen [Mass/volume] in Serum or Plasma 02-08 [facility] Venous Blood GasOrdered By: Pranay Bai on 10-04-2024 CO2 [Moles/Vol] 26.6 mmol/L Normal 24.0-29.0 [facility] Comment on above: Performed By: #### G LULS #### Point of Care testing , HCO3 (Bld) [Moles/Vol] 25.2 mmol/L Normal 23.0-29.0 [facility] Comment on above: Performed By: #### G LULS #### Point of Care testing , Venous Blood Gason Respiratory Critical Normal [facility] Comment on above: Result Comment: Crit ical Value called on: 10/04/2024 at 00:11 PERFORMED BY: [facility] [address] [place] [address] PATHOLOGIST P[employer]ING [employer] INSTALLER NARESH VERA M.D. Performed By: #### G LULS #### Point of Care testing , VBG Base Excess -1.5 mmol/L Normal -3.0-3.0 [facility] Comment on above: Performed By: #### G LULS #### Point of Care testing , VBG Draw Site Venous Normal [facility] Comment on above: Performed By: #### G LULS #### Point of Care testing , VBG Frac Inspired O2 32 % Normal [facility] Comment on above: Performed By: #### G LULS #### Point of Care testing , VBG Liter Flow [address] [facility] Comment on above: Performed By: #### G LULS #### Point of Care testing , VBG O2 Content 4.9 mmol/L Low 6.6-9.[address] [facility] Comment on above: Performed By: #### G LULS #### Point of Care testing , VBG Oxygen Saturation 43.8 % Off scale low 73.0-76.0 [facility] Comment on above: Performed By: #### G LULS #### Point of Care testing , VBG PCO2 48.8 mm[Hg] Normal 38.0-50.0 [facility] Comment on above: Performed By: #### G LULS #### Point of Care testing , VBG PH Venous PH 7.33 Normal 7.32-7.43 [facility] Comment on above: Performed By: #### G LULS #### Point of Care testing , VBG PO2 26.1 mm[Hg] Low 35.0-45.0 [facility] Comment on above: Performed By: #### G LULS #### Point of Care testing , WBC Auto (Bld) [#/Vol]Ordere d By: Pranay Bai on 10-04-2024 WBC (Bld) [#/Vol] Leukocytes [#/volume] in Blood by Automated count High 4.1-10.5 [facility] ECG 12 lead ECGon 10-03-2024 ECG 12 lead ECG [facility] [place] [address] Electrocardiograph Report Signed Patient: Ricardo Hylton MR#: [id number] 88 : 1960 Acct:[id number] Age/Sex: 63 / M ADM Date: 10/04/24 Loc: Room: [address] [place] [address] Type: ADM IN Attending Dr: Eden Greenwood MD Ordering Provider: Pranay Bai Jr, MD Date of Service: 10/03/24 ECG/ECG 12 lead ECG: DYSPNEA Copies to: Test Reason : Blood Pressure : 158/90 mmHG Vent. Rate : 141 BPM Atrial Rate : 141 BPM P-R Int : 126 ms QRS Dur : 80 ms QT Int : 288 ms P-R-T Axes : 87 254 85 degrees QTcB Int : 441 ms Sinus tachycardia with premature supraventricular complexes Right superior axis deviation Pulmonary disease pattern Abnormal ECG When compared with ECG of 19-Jan-2011 08:48, premature supraventricular complexes are now present Vent. rate has increased by 67 bpm Questionable change in QRS duration Confirmed by PRANAY BAI MD ([id number]) on 10/05/2024 4:50:26 AM Referred By: Electronically Signed By: PRANAY BAI MD Transcribed By: MUS Signed By Pranay Bai Jr, MD 0450 Normal [facility] X-ray reportOrdered By: Ludin Bateman on 10-03-2024 Study report [facility] [address] [address] XRay Report Signed Patient: Ricardo Hylton MR#: [id number] : 1960 Acct:[id number] Age/Sex: 63 / M ADM Date: 5 Loc: ER Room: Type: [facility] ER Attending Dr: Copies to: Pranay Bai Jr, MD~ Ordering Provider: Pranay Bai Jr, MD Date of Service: 10/03/24 XR/XR chest 1V portable: DYSPNEA SINGLE VIEW CHEST CLINICAL HISTORY: Shortness breath COMPARISON: None FINDINGS: Bibasilar opacities likely atelectasis and or scarring. Otherwise cardiac silhouette unremarkable. No definite airspace consolidation effusion or pneumothorax. XR/XR chest 1V portable IMPRESSION: BIBASILAR OPACITIES LIKELY ATELECTASIS AND OR SCARRING. Impression dictated by: Daryl Bateman M.D.10/03/2024 11:14 PM Dictation Location: [place] [address] Transcribed By: [facility] 10/03/242313 Dictated By: Daryl Bateman MD 10/03/242312 Signed By: 10/03/242313 [facility] Work Phone: XR chest 1V portableon 10-03 XR chest 1V portable [facility] [place] [address] XRay Report Signed Patient: Ricardo Hylton MR#: [id number] 88 : 1960 Acct:[id number] Age/Sex: 63 / M ADM Date: 10/03/24 Loc: ER Room: Type: [facility] ER Attending Dr: Copies to: Pranay Bai Jr, MD Ordering Provider: Pranay Bai Jr, MD Date of Service: 10/03/24 XR/XR chest 1V portable: DYSPNEA SINGLE VIEW CHEST CLINICAL HISTORY: Shortness breath COMPARISON: None FINDINGS: Bibasilar opacities likely atelectasis and or scarring. Otherwise cardiac silhouette unremarkable. No definite airspace consolidation effusion or pneumothorax. XR/XR chest 1V portable IMPRESSION: BIBASILAR OPACITIES LIKELY ATELECTASIS AND OR SCARRING. Impression dictated by: Daryl Bateman M.D.10/03/2024 11:14 PM Dictation Location: [place] [address] Transcribed By: [facility] 10/03/242313 Dictated By: Daryl Bateman MD 10/03/242312 Signed By: 10/03/242313 Normal [facility] Ambulatory Visit Summaryon 07-22-2023 Ambulatory Visit Summary Ambulatory Visit Summary RICARDO HYLTON :1960 Visit Date:05/22/2024 Ambulatory Visit Instructions Your Diagnosis Type 2 diabetes mellitus with hyperlipidemia Anxiety Hyperlipidemia, Hyperlipidemia, unspecified Former smoker BMI 34.0-34.9,adult Exogenous obesity Your Care Team Attending Physician - SARAH TRIVEDI CNP Primary Care Physician - SARAH TRIVEDI CNP This Is Your Medications List empagliflozin [...] Appointments Tuesday 2:40 PM EST With: SARAH TRIVEDI CNP Where: [address] [id number]- Tuesday 1:00 PM EDT With: Where: [address] [id number]- Medications What How Much When Why Instructions New empagliflozin (Jardiance 25 mg oral tablet) 1 Tablets By Mouth Once a day (in the morning) Pickup at [facility]/pharmacy #[id number] Unchanged albuterol-ipratropiu m (Combivent Respimat 20 mcg-100 [...] physician if questions or concerns Pharmacy Information [id number]: [address], [place] [phone] Allergies metFORMIN (Diarrhea) Pro (more content not included)... Normal [facility] Office/Clini c Noteon 05-22-2024 Family [...] f/u in 3 months Ordered: A1c POC 92925 2. Anxiety (F41.9: Anxiety disorder, unspecified) Completed and reviewed the PHQ-9 score of 10 and the CANDACE-7 score of 12 Encouraged patient to contact [facility] for counseling Increase hydroxyzine 50 mg one tablet po TID prn for anxiety f/u in 4 weeks Ordered: hydrOXYzine, 50 mg = 1 tab(s), Oral, TID, PRN for anxiety, # 90 tab(s), Refills(s) 0, Pharmacy: [facility]/pharmacy #[id number], 177, cm, 05/22/24 15:06:00 EST, Height/Length Dosing, 107.7, kg, 05/22/24 15:06:00 EST, Weight Dosing A1c POC 78934 3. Former smoker (Z87.891: Personal history of nicotine dependence) Courage to continue is a non-smoker Ordered: A1c POC 96813 4. BMI 34.0-34.9,adult (Z68.34: Body mass index [...] control and daily exercise Ordered: A1c POC 17239 5. Exogenous obesity (E66.09: Other obesity due to excess calories) The standard range for ages 18 and older is >=18.5 and < 25 kg/m2. Your BMI today was above this range, this falls in the overweight to obese category and there are medical benefits to weight loss. We can off (more content not included)... [facility] Comment on above: Result Comment: Elec tronically Signed By: SARAH TRIVEDI CNP\.br\Date and Time Signed: 05/22/24 15:51 EST Provider Letteron 05-02-2024 Provider Letter Provider Letter May 02, 2024 RICARDO TOVARMEGAN [address] [place] [phone] CONCETTA RICARDO 1960 Dear Ricardo, We have been trying to reach you with no success. It is important that you return our call regarding your hospital discharge upon receiving this letter. Also, at the time of your call, please provide us with your current information. Thank you for your prompt attention to this matter. Sincerely, Mark, Account Services Associate [phone] [facility] Pre-Visit Planningon 024 Pre-Visit Planning Pre-Visit Planning - From: Wanda BRYANT, Yesenia To: SARAH TRIVEDI CNP; Sent: 04/23/2024 12:51:08 EDT Subject: Pre-Visit Planning Due Date/Time: 04/23/2024 12:51:00 EDT Caller Name: RICARDO HYLTON; Caller Number: Jose , M Stephen Smith, back in January you responded to the [...] was 93%. 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 Patient admits to be a little more SOB today. Follows up as directed and prn with pcp. Addendum by SARAH TRIVEDI CNP on January 24, 2024 11:51:10 EDT (Verified) - From: SARAH TRIVEDI CNP To: Yesenia Muñoz RN; Sent: 01/24/2024 11:51:10 EDT Subject: RE: Pre-Visit Planning Caller Name: RICARDO HYLTON; Caller Number: H , M Added to diagnosis - From: Yesenia Muñoz RN To: SARAH TRIVEDI CNP; Sent: 01/17/2024 10:07:43 EDT Subject: Pre-Visit Planning Due Date/Time: 01/17/2024 10:07:00 EDT Caller Name: RICARDO HYLTON; Caller Number: Jose , M Stephen Smith, *Based on your response below, can you [...] feel free to contact me at extension [phone]. Thank you! ARIEL KiddN, RN, CCM, CCDS, CCDS-O CDI Back Pad Inspector [address] [address] P: [phone] F: [phone] [email or web address] - From: SARAH TRIVEDI CNP To: Yesenia Muñoz RN; Sent: 04/24/2024 13:57:06 EDT Subject: RE: Pre-Visit Planning Caller Name: RICARDO HYLTON; Caller Number: H , M Patient did not show for his appointment however, dx added to the chronic list. Normal [facility] Pre-Visit Planning Pre-Visit Planning - From: Yesenia Muñoz RN To: SARAH TRIVEDI CNP; Sent: 04/23/2024 12:47:25 EDT Subject: Pre-Visit Planning Due Date/Time: 04/23/2024 12:47:00 EDT Caller Name: RICARDO HYLTON; Caller Number: H , M Stephen Smith, back in January you responded to the below query that you added to diagnosis. However, it was not on problem list. If Mr. Hylton has a BMI over 35 could you please add and document on morbid obesity, class 2 severe obesity with serious comorbidity in adult, or class 3 severe obesity with serious comorbidity in adult? Addendum by SARAH TRIVEDI CNP on January 24, 2024 11:50:53 EDT (Verified) - From: SARAH TRIVEDI CNP To: Yesenia Muñoz RN; Sent: 01/24/2024 11:50:53 EDT Subject: RE: Pre-Visit Planning Caller Name: RICARDO HYLTON; Caller Number: Jose , M Added to diagnosis - From: Yesenia Muñoz RN To: SHIKHA MELVINSARAH; Sent: 01/17/2024 10:02:44 EDT Subject: Pre-Visit Planning Due Date/Time: 01/17/2024 10:02:00 EDT Caller Name: RICARDO HYLTON; Caller Number: Jose , M Stephen Smith, *Based on your response below, can you please update the chronic problem list and address during this visit if appropriate?* During a pre-visit planning chart review, I noted the following documentation in the medical record indicates that this patient had a BMI of 36 on 12/29/2022. The National [employer] defines obesity as morbid if [...] feel free to contact me at extension [phone]. Thank you! Yesenia Muñoz, ROWDY, RN, CCM, CCDS, CCDS-O CDI Back Pad Inspector [facility] [address] [place], [place] [address] P: [phone] F: [phone] [email or web address] - From: SARAH TRIVEDI CNP To: Wanda BRYANT, Yesenia; Sent: 04/24/2024 13:56:56 EDT Subject: RE: Pre-Visit Planning Caller Name: RICARDO HYLTON; Caller Number: Jose , M Patient did not show for his appointment however, dx added to the chronic list. Normal [facility] Interdisciplinary Note - Soc ial Workeron 01-30-2024 Interdisciplinary Note - Diet Aide Interdisciplinary Note - Diet Aide Consult for positive depression screen received. Per chart notes, patient's depression screen and PHQ9 were both negative. No SW needs at this time. SW will remain available. Normal [facility] CHEMISTRYOrdered By: SYSTEM SYSTEM on 01-24-2024 Albumin [...] 4.6 g/dL Normal 3.3 - 5.0 gm/dL Remisol Chem Albumin/Globulin [Mass ratio] 1.7 {ratio} Normal 1.1 - 2.2 Remisol Chem ALP [Catalytic activity/Vol] 78 [iU]/d Normal 21 - 98 Int._Unit/L Remisol Chem ALT No additional P-5'-P [Catalytic activity/Vol] 18 [iU]/d Normal 6 - 46 Int._Unit/L Remisol Chem Anion gap [Moles/Vol] 13 mmol/L Normal 6 - 16 mEq/L R emisol Chem AST [Catalytic activity/Vol] 15 [iU]/d Normal 5 - 43 Int._Unit/L Remisol Chem Bilirubin [Mass/Vol] 0.4 mg/dL Normal 0.0 - 1 .1 mg/dL [facility] Calcium [Mass/Vol] 9.8 mg/dL Normal 8.9 - 11. 1 mg/dL [facility] Chloride [Moles/Vol] 101 mmol/L Normal 101 - 1 11 mmol/L [facility] Cholesterol [Mass/Vol] 261 mg/dL High [...] 29 mmol/L Normal 21 - 31 mmol/L [facility] Creatinine [Mass/Vol] 1.1 mg/dL Normal 0.5 - 1.3 mg/dL [facility] Chem eGFR 75 mL/min/1.73 m2 Normal >=59mL/min /1 .73 m2 [facility] Globulin (S) [Mass/Vol] 2.7 g/dL Normal 1.4 - 4.0 gm/dL [facility] Glucose [Mass/Vol] 78 mg/dL Normal 55 - 199 mg/dL [facility] Potassium [Moles/Vol] 4.0 mmol/L Normal 3.5 [...] used for this result was chemiluminescence using [employer] Access Hybritech PSA reagent. Protein [Mass/Vol] 7.3 g/dL Normal 6.0 - 7.8 gm/dL [facility] Sodium [Moles/Vol] 139 mmol/L Normal 135 - 145 mmol/L [facility] Triglyceride [Mass/Vol] 189 mg/dL High <=149mg/dL R emisol Chem Urea nitrogen [Mass/Vol] 18 mg/dL Normal 5 - 21 mg/dL Rem[facility] Urea nitrogen/Creatinine [Mass ratio] 16 mg/mg Normal 10 - 20 Rem[facility] CNPNon [facility] RICARD[facility] HYLTON ([id number]) 1960 M Date Time Provider Department 04/25/23 [...] any questions. 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] 02/16/2021 Chronic obstructive pulmonary disease (HCC) [J4*01/17/2019 Essential hypertension [I10] 02/14/2019 RANCHO (obstructive sleep apnea) [G47.33] 03/25/2021 Depression [F32.A] 03/25/2021 GERD (gastroesophageal reflux disease) [K21.9] 03/25/2021 Diabetes (HCC) [E11.9] 03/25/2021 Bipolar 1 disorder (HCC) [F31.9] 03/25/2021 Encounter Status:Closed by CAPO MERAZ on 04/25/23 [facility] [place] 03-22-2023 [facility] Telephone (PULN) RICARDO HYLTON ([id number]) 1960 M Date Time Provider Department 03/22/23 CAPO MERAZ During your visit today, we recorded the following information about you: Capo Meraz, RN 03/22/2023 2:57 PM Signed Attempted to reach patient regarding lung transplant evaluation. He was last seen 03/2021. I was unable to speak with him but left a message to return call to transplant center, phone number provided. 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] 02/16/2021 Chronic obstructive pulmonary disease (HCC) [J4*01/17/2019 Essential hypertension [I10] 02/14/2019 RANCHO (obstructive sleep apnea) [G47.33] 03/25/2021 Depression [F32.A] 03/25/2021 GERD (gastroesophageal reflux disease) [K21.9] 03/25/2021 Diabetes (HCC) [E11.9] 03/25/2021 Bipolar 1 disorder (HCC) [F31.9] 03/25/2021 Encounter Status:Closed by CAPO MERAZ on 03/22/23 [facility] 03-10-2023 [facility] Telephone (PULMAHENDRAN) RICARDO HYLTON ([id number]) 1960 M Date Time Provider Department 03/10/23 CAPO MERAZ During your visit today, we recorded the following information about you: Capo Meraz, RN 03/10/2023 12:05 PM Signed Attempted to reach patient regarding lung transplant referral. He was last seen in 03/2021 and has not been back since. We have not heard from the patient since 10/2021. I was unable to speak with him and unable to leave a message due to his voicemail being full. Capo Meraz RN, BSN Pre-Lung Line Maintenance Technician Allergies As of Date: 03/10/2023 Noted Allergy Reaction METFORMIN 03/25/2021 5 - Intolerance Comments: diarrhea Date Reviewed: 03/25/2021 Reviewed by: Lia Sanders RN - Fully Assessed Reason for Visit: Follow up on Lung Transplant Referral [Other] Prescriptions as of 03/10/2023 - xakgd-7-umjvvualox inhibitor (Human) 1,000 mg in water for [...] 81 mg by mouth once daily. - LifeBookE 2 SENSOR kit as directed. 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] 02/16/2021 Chronic obstructive pulmonary disease (HCC) [J4*01/17/2019 Essential hypertension [I10] 02/14/2019 RANCHO (obstructive sleep apnea) [G47.33] 03/25/2021 Depression [F32.A] 03/25/2021 GERD (gastroesophageal reflux disease) [K21.9] 03/25/2021 Diabetes (HCC) [E11.9] 03/25/2021 Bipolar 1 disorder ([facility]) [F31.9] 03/25/2021 Encounter Status:Closed by CAPO MERAZ on 03/10/23 [facility] CARDIAC JUSTINE 3-6on 3 CK [Catalytic activity/Vol] 49 U/L Normal 39-308 [facility] Comment on above: Performed By: #### C MP #### [facility] [address] [address] [address] Jessie Lomax CK.MB [Mass/Vol] 1.93 ng/mL Normal <=3.60 [facility] Comment on above: Performed By: #### C MP #### [facility] [address] [place], [place] [address] Dr. Jessie Lomax HSTROP 7.8 pg/mL Normal 4.0-76.1 [facility] Comment on above: Result Comment: CUT- OFF POINTS HAVE BEEN ESTABLISHED BASED ON THE FOURTH UNIVERSAL DEFINITIONS OF MYOCARDIAL INFARCTION. THE UPPER REFERENCE LIMIT (URL) OF TROPONIN, DEFINED THE 99TH PERCENTILE OF cTnI DISTRIBUTION IN A REFERENCE POPULATION, HAS BEEN CONFIRMED THE DECISION THRESHOLD FOR PR DIAGNOSIS. Performed By: #### C MP #### [facility] [address] [address] [address] Jessie Lomax LACTATE/LACTIC ACIDon 2022 Lactate [Moles/Vol] 1.5 mmol/L Normal 0.4-2.0 [facility] Comment on above: Performed By: #### B LDCX1 #### [facility] [address] [address] [address] Jessie Lomax Lactate [Moles/Vol] 2.5 mmol/L Critically high 0.4-2.0 [facility] Comment on above: Performed By: #### B LDCX1 #### [facility] [address] [place] [address] Dr. Jessie Lomax CARDIAC JUSTINE ADMITon 023 CK [Catalytic activity/Vol] 36 U/L Critically low 39-308 [facility] Comment on above: Performed By: #### A CETON #### [facility] [address] [place] [address] Dr. Jessie Lomax CK.MB [Mass/Vol] 1.50 ng/mL Normal <=3.60 [facility] Comment on above: Performed By: #### A CETON #### [facility] [address] [place] [address] Dr. Jessie Lomax HSTROP 7.4 pg/mL Normal 4.0-76.1 [facility] Comment on above: Result Comment: CUT- OFF POINTS HAVE BEEN ESTABLISHED BASED ON THE FOURTH UNIVERSAL DEFINITIONS OF MYOCARDIAL INFARCTION. THE UPPER REFERENCE LIMIT (URL) OF TROPONIN, DEFINED THE 99TH PERCENTILE OF cTnI DISTRIBUTION IN A REFERENCE POPULATION, HAS BEEN CONFIRMED THE DECISION THRESHOLD FOR PR DIAGNOSIS. Performed By: #### A CETON #### [facility] [address] [place] [address] Dr. Jessie Lomax HERLINDA 44 ng/mL Normal 16-96 [facility] Comment on above: Performed By: #### A CETON #### [facility] [address] [place] [address] Dr. Jessie Lomax CBC AUTO DIFFon 10-03-2022 BASO # 0.1 103/ul Normal 0.0-0.1 [facility] Comment on above: Performed By: #### C BC #### [facility] [address] [address] [address] Jessie Lomax Basophils/100 WBC (Bld) 0.5 % Normal 0.2-2.0 [facility] Comment on above: Performed By: #### C BC #### [facility] [address] [place] [address] Dr. Jessie Lomax EO # 0.0 103/ul Normal 0.0-0.7 [facility] Comment on above: Performed By: #### C BC #### [facility] [address] [place] [address] Dr. Jessie Lomax Eosinophils/100 WBC (Bld) 0.2 % Critically low 0.9-7.0 [facility] Comment on above: Performed By: #### C BC #### [facility] [address] [place] [address] Dr. Jessie Lomax Erythrocyte distribution width (RBC) [Ratio] 14.6 % Normal 11.0-15.0 [facility] Comment on above: Performed By: #### C BC #### [facility] [address] [place] [address] Dr. Jessie Lomax Hematocrit (Bld) [Volume fraction] 49.6 % Normal 42.0-54.0 [facility] Comment on above: Performed By: #### C BC #### [facility] [address] [place] [address] Dr. Jessie Lomax Hemoglobin (Bld) [Mass/Vol] 16.6 g/dL Normal 14.0-18.0 [facility] Comment on above: Performed By: #### C BC #### [facility] [address] [place] [address] Dr. Jessie Lomax IG # 0.10 10e3/ul Critically high 0.00-0.03 [facility] Comment on above: Performed By: #### C BC #### [facility] [address] [place] [address] Dr. Jessie Lomax IG % 0.8 % Critically high 0.0-0.5 [facility] Comment on above: Performed By: #### C BC #### [facility] [address] [address] [address] Jessie Lomax LYMPH # 1.0 103/ul Critically low 1.2-3.8 [facility] Comment on above: Performed By: #### C BC #### [facility] [address] [address] [address] Jessie Lomax Lymphocytes/100 WBC (Bld) 8.2 % Critically low 20.5-60.0 [facility] Comment on above: Performed By: #### C BC #### [facility] [address] [place] [address] Dr. Jessie Lomax MANUAL DIFF REQ NO Normal [facility] Comment on above: Performed By: #### C BC #### [facility] [address] [place] [address] Dr. Jessie Lomax MCH (RBC) [Entitic mass] 31.0 pg Normal 25.9-34.0 [facility] Comment on above: Performed By: #### C BC #### [facility] [address] [place] [address] Dr. Jessie Lomax MCHC (RBC) [Mass/Vol] 33.5 g/dL Normal 29.9-35.2 [facility] Comment on above: Performed By: #### C BC #### [facility] [address] [place] [address] Dr. Jessie Lomax MCV (RBC) [Entitic vol] 92.5 fL Normal 80.0-94.0 [facility] Comment on above: Performed By: #### C BC #### [facility] [address] [place] [address] Dr. Jessie Lomax MONO # 0.6 103/ul Normal 0.3-0.8 [facility] Comment on above: Performed By: #### C BC #### [facility] [address] [place] [address] Dr. Jessie Lomax Monocytes/100 WBC (Bld) 4.9 % Normal 1.7-12.0 [facility] Comment on above: Performed By: #### C BC #### [facility] [address] [address] [address] Jessie Lomax NEUT # 10.5 103/ul Critically high 1.4-6.5 [facility] Comment on above: Performed By: #### C BC #### [facility] [address] [address] [address] Jessie Lomax Neutrophils/100 WBC (Bld) 85.4 % Critically high 43.0-75.0 [facility] Comment on above: Performed By: #### C BC #### [facility] [address] [address] [address] Jessie Lomax Platelet mean volume (Bld) [Entitic vol] 9.3 fL Critically low 9.5-13.5 [facility] Comment on above: Performed By: #### C BC #### [facility] [address] [address] [address] Jessie Lomax PLT 259 103/ul Normal 150-450 [facility] Comment on above: Performed By: #### C BC #### [facility] [address] [address] [address] Jessie Lomax RBC 5.36 106/ul Normal 4.70-6.10 [facility] Comment on above: Performed By: #### C BC #### [facility] [address] [address] [address] Jessie Lomax WBC 12.3 103/ul Critically high 4.0-11.0 [facility] Comment on above: Performed By: #### C BC #### [facility] [address] [address] [address] Jessie Lomax LACTATE/LACTIC ACIDon 2022 Lactate [Moles/Vol] 2.9 mmol/L Critically high 0.4-2.0 [facility] Comment on above: Performed By: #### C MP #### [facility] [address] [address] [address] Jessie Lomax PROF CHEM 8 (BAS METB)on Anion gap [Moles/Vol] 8.7 mmol/L Normal [facility] Comment on above: Performed By: #### A CETON #### [facility] [address] [address] [address] Jessie Lomax Calcium [Mass/Vol] 8.9 mg/dL Normal 8.5-10.1 [facility] Comment on above: Performed By: #### A CETON #### [facility] [address] [place] [address] Dr. Jessie Lomax Chloride [Moles/Vol] 100 mmol/L Normal 98-107 [facility] Comment on above: Performed By: #### A CETON #### [facility] [address] [place] [address] Dr. Jessie Lomax CO2 [Moles/Vol] 32.6 mmol/L Critically high 21.0-32.0 [facility] Comment on above: Performed By: #### A CETON #### [facility] [address] [place] [address] Dr. Jessie Lomax Creatinine [Mass/Vol] 1.32 mg/dL Critically high 0.70-1.30 [facility] Comment on above: Performed By: #### A CETON #### [facility] [address] [place] [address] Dr. Jessie Lomax EGFR-AF YEMENI >60 Normal >=60 [facility] Comment on above: Performed By: #### A CETON #### [facility] [address] [place] [address] Dr. Jessie Lomax EGFR-NON AF YEMENI 55 mL/min/1.73m2 Critically low >=60 [facility] Comment on above: Performed By: #### A CETON #### [facility] [address] [place] [address] Dr. Jessie Lomax Glucose [Mass/Vol] 360 mg/dL Critically high 74-106 [facility] Comment on above: Performed By: #### A CETON #### [facility] [address] [place] [address] Dr. Jessie Lomax Potassium [Moles/Vol] 4.3 mmol/L Normal 3.5-5.1 [facility] Comment on above: Performed By: #### A CETON #### [facility] [address] [address] [address] Jessie Lomax Sodium [Moles/Vol] 137 mmol/L Normal 136-145 [facility] Comment on above: Performed By: #### A CETON #### [facility] [address] [place] [address] Dr. Jessie Lomax Urea nitrogen [Mass/Vol] 20.0 mg/dL Critically high 7.0-18.0 [facility] Comment on above: Performed By: #### A CETON #### [facility] [address] [place] [address] Dr. Jessie Lomax Urea nitrogen/Creatinine [Mass ratio] 15.2 mg/mg Normal [facility] Comment on above: Performed By: #### A CETON #### [facility] [address] [place] [address] Dr. Jessie Lomax XR CHEST 1 Von [...] SOLA SHELL Date: 2022-10-03 20:56 Normal [facility] ER URINE PROFILEon 3 Bilirubin Ql (U) Negative Normal NEGATIVE [facility] Comment on above: Performed By: #### T TYLER #### [facility] [address] [place] [address] Dr. Jessie Lomax Clarity (U) CLEAR Normal CLEAR [facility] Comment on above: Performed By: #### T TYLER #### [facility] [address] [place] [address] Dr. Jessie Lomax Color (U) LT. YELLOW Normal YELLOW [facility] Comment on above: Performed By: #### T TYLER #### [facility] [address] [place] [address] Dr. Jessie BROOKS A micrscopic examination will be performed if indicated. Normal [facility] Comment on above: Performed By: #### T TYLER #### [facility] [address] [place] [address] Dr. Jessie Lomax Glucose Ql (U) >1000 Abnormal NEGATIVE [facility] Comment on above: Performed By: #### T TYLER #### [facility] [address] [place] [address] Dr. Jessie Lomax Hemoglobin Ql (U) Negative Normal NEGATIVE [facility] Comment on above: Performed By: #### T TYLER #### [facility] [address] [place] [address] Dr. Jessie Lomax Ketones Ql (U) Negative Normal NEGATIVE [facility] Comment on above: Performed By: #### T TYLER #### [facility] [address] [place] [address] Dr. Jessie Lomax LEUKOCYTES Negative Normal NEGATIVE [facility] Comment on above: Performed By: #### T TYLER #### [facility] [address] [place] [address] Dr. Jessie Lomax Nitrite Ql (U) Negative Normal NEGATIVE [facility] Comment on above: Performed By: #### T TYLER #### [facility] [address] [place] [address] Dr. Jessie Lomax pH (U) 6.0 [pH] Normal 5-9 [facility] Comment on above: Performed By: #### T TYLER #### [facility] [address] [place] [address] Dr. Jessie Lomax SPEC GRAVITY <=1.005 Abnormal 1.005-<=1.02 5 [facility] Comment on above: Performed By: #### T TYLER #### [facility] [address] [place] [address] Dr. Jessie Lomax UA PROTEIN Negative Normal NEGATIVE/ TRACE [facility] Comment on above: Performed By: #### T TYLER #### [facility] [address] [place] [address] Dr. Jessie Lomax UR MICRO IND NOT INDICATED Normal [facility] Comment on above: Performed By: #### T TYLER #### [facility] [address] [place] [address] Dr. Jessie Lomax Urobilinogen Qn (U) 0.2 {Angelique'U}/dL Normal 0.2 - 1. 0 [facility] Comment on above: Performed By: #### T TYLER #### [facility] [address] [place] [address] Dr. Jessie Lomax CBC AUTO DIFFon 08-30-2022 BASO # 0.0 103/ul Normal 0.0-0.1 [facility] Comment on above: Performed By: #### C BC #### [facility] [address] [place] [address] Dr. Jessie Lomax Basophils/100 WBC (Bld) 0.1 % Critically low 0.2-2.0 [facility] Comment on above: Performed By: #### C BC #### [facility] [address] [place] [address] Dr. Jessie Lomax EO # 0.0 103/ul Normal 0.0-0.7 [facility] Comment on above: Performed By: #### C BC #### [facility] [address] [place] [address] Dr. Jessie Lomax Eosinophils/100 WBC (Bld) 0.1 % Critically low 0.9-7.0 [facility] Comment on above: Performed By: #### C BC #### [facility] [address] [place] [address] Dr. Jessie Lomax Erythrocyte distribution width (RBC) [Ratio] 13.6 % Normal 11.0-15.0 [facility] Comment on above: Performed By: #### C BC #### [facility] [address] [place] [address] Dr. Jessie Lomax Hematocrit (Bld) [Volume fraction] 46.3 % Normal 42.0-54.0 [facility] Comment on above: Performed By: #### C BC #### [facility] [address] [place], [place] [id number] Dr. Jessie Lomax Hemoglobin (Bld) [Mass/Vol] 15.4 g/dL Normal 14.0-18.0 [facility] Comment on above: Performed By: #### C BC #### [facility] [address] [place] [address] Dr. Jessie Lomax IG # 0.08 10e3/ul Critically high 0.00-0.03 [facility] Comment on above: Performed By: #### C BC #### [facility] [address] [place] [address] Dr. Jessie Lomax IG % 0.6 % Critically high 0.0-0.5 [facility] Comment on above: Performed By: #### C BC #### [facility] [address] [place] [address] Dr. Jessie Lomax LYMPH # 0.8 103/ul Critically low 1.2-3.8 [facility] Comment on above: Performed By: #### C BC #### [facility] [address] [place] [address] Dr. Jessie Lomax Lymphocytes/100 WBC (Bld) 5.7 % Critically low 20.5-60.0 [facility] Comment on above: Performed By: #### C BC #### [facility] [address] [place] [address] Dr. Jessie Lomax MANUAL DIFF REQ NO Normal [facility] Comment on above: Performed By: #### C BC #### [facility] [address] [place] [address] Dr. Jessie Lomax MCH (RBC) [Entitic mass] 30.2 pg Normal 25.9-34.0 [facility] Comment on above: Performed By: #### C BC #### [facility] [address] [place] [address] Dr. Jessie Lomax MCHC (RBC) [Mass/Vol] 33.3 g/dL Normal 29.9-35.2 [facility] Comment on above: Performed By: #### C BC #### [facility] [address] [place] [address] Dr. Jessie Lomax MCV (RBC) [Entitic vol] 90.8 fL Normal 80.0-94.0 [facility] Comment on above: Performed By: #### C BC #### [facility] [address] [place] [address] Dr. Jessie Lomax MONO # 0.4 103/ul Normal 0.3-0.8 [facility] Comment on above: Performed By: #### C BC #### [facility] [address] [place] [address] Dr. Jessie Lomax Monocytes/100 WBC (Bld) 2.9 % Normal 1.7-12.0 [facility] Comment on above: Performed By: #### C BC #### [facility] [address] [place] [address] Dr. Jessie Lomax NEUT # 12.3 103/ul Critically high 1.4-6.5 [facility] Comment on above: Performed By: #### C BC #### [facility] [address] [place] [address] Dr. Jessie Lomax Neutrophils/100 WBC (Bld) 90.6 % Critically high 43.0-75.0 [facility] Comment on above: Performed By: #### C BC #### [facility] [address] [place] [address] Dr. Jessie Lomax Platelet mean volume (Bld) [Entitic vol] 9.3 fL Critically low 9.5-13.5 [facility] Comment on above: Performed By: #### C BC #### [facility] [address] [place] [address] Dr. Jessie Lomax PLT 389 103/ul Normal 150-450 [facility] Comment on above: Performed By: #### C BC #### [facility] [address] [place] [address] Dr. Jessie Lomax RBC 5.10 106/ul Normal 4.70-6.10 [facility] Comment on above: Performed By: #### C BC #### [facility] [address] [place] [address] Dr. Jessie Lomax WBC 13.6 103/ul Critically high 4.0-11.0 [facility] Comment on above: Performed By: #### C BC #### [facility] [address] [place] [address] Dr. Jessie Lomax POINT OF CARE GLUCOSEon 08-18 Glucose [Mass/Vol] 283 mg/dL Critically high 74-106 [facility] Comment on above: Performed By: #### C BC #### [facility] [address] [place] [address] Dr. Jessie Lomax Glucose [Mass/Vol] 315 mg/dL Critically high 74-106 [facility] Comment on above: Performed By: #### T TYLER #### [facility] [address] [place] [address] Dr. Jessie Lomax PROF 14(COMP METB)on 023 Albumin [Mass/Vol] 3.7 g/dL Normal 3.4-5.0 [facility] Comment on above: Performed By: #### C MP #### [facility] [address] [place] [address] Dr. Jessie Lomax Albumin/Globulin [Mass ratio] 1.0 {ratio} Normal [facility] Comment on above: Performed By: #### C MP #### [facility] [address] [place] [address] Dr. Jessie Lomax ALP [Catalytic activity/Vol] 94 U/L Normal 46-116 [facility] Comment on above: Performed By: #### C MP #### [facility] [address] [place] [address] Dr. Jessie Lomax ALT [Catalytic activity/Vol] 23 U/L Normal 16-63 [facility] Comment on above: Performed By: #### C MP #### [facility] [address] [place] [address] Dr. Jessie Lomax Anion gap [Moles/Vol] 13.6 mmol/L Normal [facility] Comment on above: Performed By: #### C MP #### [facility] [address] [place] [address] Dr. Jessie Lomax AST [Catalytic activity/Vol] 9 U/L Critically low 15-37 [facility] Comment on above: Performed By: #### C MP #### [facility] [address] [place] [address] Dr. Jessie Lomax Bilirubin [Mass/Vol] 0.3 mg/dL Normal 0.2-1.0 [facility] Comment on above: Performed By: #### C MP #### [facility] [address] [place] [address] Dr. Jessie Lomax Calcium [Mass/Vol] 9.8 mg/dL Normal 8.5-10.1 [facility] Comment on above: Performed By: #### C MP #### [facility] [address] [place] [address] Dr. Jessie Lomax Chloride [Moles/Vol] 99 mmol/L Normal 98-107 [facility] Comment on above: Performed By: #### C MP #### [facility] [address] [place] [address] Dr. Jessie Lomax CO2 [Moles/Vol] 29.2 mmol/L Normal 21.0-32.0 [facility] Comment on above: Performed By: #### C MP #### [facility] [address] [place] [address] Dr. Jessie Lomax Creatinine [Mass/Vol] 1.17 mg/dL Normal 0.70-1.30 [facility] Comment on above: Performed By: #### C MP #### [facility] [address] [place] [address] Dr. Jessie Lomax EGFR-AF YEMENI >60 Normal >=60 [facility] Comment on above: Performed By: #### C MP #### [facility] [address] [place] [address] Dr. Jessie Lomax EGFR-NON AF YEMENI >60 Normal >=60 [facility] Comment on above: Performed By: #### C MP #### [facility] [address] [place] [address] Dr. Jessie Lomax Globulin (S) [Mass/Vol] 3.6 g/dL Normal T [facility] Comment on above: Performed By: #### C MP #### [facility] [address] [address] [address] Jessie Lomax Glucose [Mass/Vol] 259 mg/dL Critically high 74-106 [facility] Comment on above: Performed By: #### C MP #### [facility] [address] [address] [address] Jessie Lomax Potassium [Moles/Vol] 3.8 mmol/L Normal 3.5-5.1 [facility] Comment on above: Performed By: #### C MP #### [facility] [address] [address] [address] Jessie Lomax Protein [Mass/Vol] 7.3 g/dL Normal 6.4-8.2 [facility] Comment on above: Performed By: #### C MP #### [facility] [address] [place] [address] Dr. Jessie Lomax Sodium [Moles/Vol] 138 mmol/L Normal 136-145 [facility] Comment on above: Performed By: #### C MP #### [facility] [address] [address] [address] Jessie Lomax Urea nitrogen [Mass/Vol] 21.0 mg/dL Critically high 7.0-18.0 [facility] Comment on above: Performed By: #### C MP #### [facility] [address] [place] [address] Dr. Jessie Lomax Urea nitrogen/Creatinine [Mass ratio] 17.9 mg/mg [facility] Comment on above: Performed By: #### C MP #### [facility] [address] [address] [address] Jessie Lomax BLOOD GASES BTYon 08-29-2022 02 MODE HAND HELD NEB Normal [facility] Comment on above: Performed By: #### C MP #### [facility] [address] [address] [address] Jessie Lomax ALLENS TEST Positive [facility] Comment on above: Performed By: #### C MP #### [facility] [address] [address] [address] Jessie Lomax Base excess Calc (Bld) [Moles/Vol] 2.1 mmol/L Critically high -2.0-2.0 [facility] Comment on above: Performed By: #### C MP #### [facility] [address] [address] [address] Jessie Lomax BIPAP PRESSURE Normal [facility] Comment on above: Performed By: #### C MP #### [facility] [address] [address] [address] Jessie Lomax CPAP [facility] Comment on above: Performed By: #### C MP #### [facility] [address] [address] [address] Jessie Lomax FIO2 [facility] Comment on above: Performed By: #### C MP #### [facility] [address] [place] [address] Dr. Jessie Lomax HCO3 (Bld) [Moles/Vol] 27.7 mmol/L Critically high 22.0-26 .0 [facility] Comment on above: Performed By: #### C MP #### [facility] [address] [address] [address] Jessie Lomax LPM 6 Normal [facility] Comment on above: Performed By: #### C MP #### [facility] [address] [place] [address] Dr. Jessie Lomax MINUTE VOLUME Normal [facility] Comment on above: Performed By: #### C MP #### [facility] [address] [place] [address] Dr. Jessie Lomax Oxygen (Bld) [Partial pressure] 90.6 mm[Hg] Normal 80.0-100.0 [facility] Comment on above: Performed By: #### C MP #### [facility] [address] [place] [address] Dr. Jessie Lomax Oxygen saturation in Blood 95.5 % Normal 95.0-100.0 [facility] Comment on above: Performed By: #### C MP #### [facility] [address] [place] [address] Dr. Jessie Lomax PCO2 49.7 mmHg Critically high 35.0-45.0 [facility] Comment on above: Performed By: #### C MP #### [facility] [address] [address] [address] Jessie Lomax PEEP [facility] Comment on above: Performed By: #### C MP #### [facility] [address] [address] [address] Jessie Lomax pH (Bld) 7.354 [pH] Normal 7.350-7.450 [facility] Comment on above: Performed By: #### C MP #### [facility] [address] [place] [address] Dr. Jessie Lomax [facility] Comment on above: Performed By: #### C MP #### [facility] [address] [place] [address] Dr. Jessie Lomax [facility] Comment on above: Performed By: #### C MP #### [facility] [address] [place] [address] Dr. eJssie Lomax PUNCTURE SITE RR [facility] Comment on above: Performed By: #### C MP #### [facility] [address] [place] [address] Dr. Jessie Lomax RATE [facility] Comment on above: Performed By: #### C MP #### [facility] [address] [place] [address] Dr. Jessie Lomax VENT MODE [facility] Comment on above: Performed By: #### C MP #### [facility] [address] [place] [address] Dr. Jessie Lomax [facility] Comment on above: Performed By: #### C MP #### [facility] [address] [place] [address] Dr. Jessie Lomax BNPon 08-29-2022 Natriuretic peptide B (Bld) [Mass/Vol] 130.0 pg/mL Normal <=900.0 [facility] Comment on above: Performed By: #### B LDCX1 #### [facility] [address] [place] [address] Dr. Jessie Lomax CARDIAC JUSTINE ADMITon 023 CK [Catalytic activity/Vol] 41 U/L Normal 39-308 [facility] Comment on above: Performed By: #### B LDCX1 #### [facility] [address] [place] [address] Dr. Jessie Lomax CK.MB [Mass/Vol] 1.87 ng/mL Normal <=3.60 [facility] Comment on above: Performed By: #### B LDCX1 #### [facility] [address] [place] [address] Dr. Jessie Lomax HSTROP 27.3 pg/mL Normal 4.0-76.1 [facility] Comment on above: Result Comment: CUT- OFF POINTS HAVE BEEN ESTABLISHED BASED ON THE FOURTH UNIVERSAL DEFINITIONS OF MYOCARDIAL INFARCTION. THE UPPER REFERENCE LIMIT (URL) OF TROPONIN, DEFINED THE 99TH PERCENTILE OF cTnI DISTRIBUTION IN A REFERENCE POPULATION, HAS BEEN CONFIRMED THE DECISION THRESHOLD FOR PR DIAGNOSIS. Performed By: #### B LDCX1 #### [facility] [address] [place] [address] Dr. Jessie Lomax HERLINDA 36 ng/mL Normal 16-96 [facility] Comment on above: Performed By: #### B LDCX1 #### [facility] [address] [place] [address] Dr. Jessie Lomax CBC AUTO DIFFon 08-29-2022 BASO # 0.1 103/ul Normal 0.0-0.1 [facility] Comment on above: Performed By: #### C BC #### [facility] [address] [place] [address] Dr. Jessie Lomax Basophils/100 WBC (Bld) 0.7 % Normal 0.2-2.0 [facility] Comment on above: Performed By: #### C BC #### [facility] [address] [place] [address] Dr. Jessie Lomax EO # 0.1 103/ul Normal 0.0-0.7 [facility] Comment on above: Performed By: #### C BC #### [facility] [address] [place] [address] Dr. Jessie Lomax Eosinophils/100 WBC (Bld) 0.8 % Critically low 0.9-7.0 [facility] Comment on above: Performed By: #### C BC #### [facility] [address] [place] [address] Dr. Jessie Lomax Erythrocyte distribution width (RBC) [Ratio] 13.6 % Normal 11.0-15.0 [facility] Comment on above: Performed By: #### C BC #### [facility] [address] [place] [address] Dr. Jessie Lomax Hematocrit (Bld) [Volume fraction] 51.6 % Normal 42.0-54.0 [facility] Comment on above: Performed By: #### C BC #### [facility] [address] [place] [address] Dr. Jessie Lomax Hemoglobin (Bld) [Mass/Vol] 17.1 g/dL Normal 14.0-18.0 [facility] Comment on above: Performed By: #### C BC #### [facility] [address] [place] [address] Dr. Jessie Lomax IG # 0.05 10e3/ul Critically high 0.00-0.03 [facility] Comment on above: Performed By: #### C BC #### [facility] [address] [place] [address] Dr. Jessie Lomax IG % 0.5 % Normal 0.0-0.5 [facility] Comment on above: Performed By: #### C BC #### [facility] [address] [place] [address] Dr. Jessie Lomax LYMPH # 2.1 103/ul Normal 1.2-3.8 [facility] Comment on above: Performed By: #### C BC #### [facility] [address] [place] [address] Dr. Jessie Lomax Lymphocytes/100 WBC (Bld) 20.9 % Normal 20.5-60.0 [facility] Comment on above: Performed By: #### C BC #### [facility] [address] [place] [address] Dr. Jessie Lomax MANUAL DIFF REQ NO Normal [facility] Comment on above: Performed By: #### C BC #### [facility] [address] [place] [address] Dr. Jessie Lomax MCH (RBC) [Entitic mass] 30.7 pg Normal 25.9-34.0 [facility] Comment on above: Performed By: #### C BC #### [facility] [address] [place] [address] Dr. Jessie Lomax MCHC (RBC) [Mass/Vol] 33.1 g/dL Normal 29.9-35.2 [facility] Comment on above: Performed By: #### C BC #### [facility] [address] [place] [address] Dr. Jessie Lomax MCV (RBC) [Entitic vol] 92.6 fL Normal 80.0-94.0 [facility] Comment on above: Performed By: #### C BC #### [facility] [address] [place] [address] Dr. Jessie Lomax MONO # 1.0 103/ul Critically high 0.3-0.8 [facility] Comment on above: Performed By: #### C BC #### [facility] [address] [place] [address] Dr. Jessie Lomax Monocytes/100 WBC (Bld) 9.5 % Normal 1.7-12.0 [facility] Comment on above: Performed By: #### C BC #### [facility] [address] [place] [address] Dr. Jessie Lomax NEUT # 6.7 103/ul Critically high 1.4-6.5 [facility] Comment on above: Performed By: #### C BC #### [facility] [address] [place] [address] Dr. Jessie Lomax Neutrophils/100 WBC (Bld) 67.6 % Normal 43.0-75.0 [facility] Comment on above: Performed By: #### C BC #### [facility] [address] [place] [address] Dr. Jessie Lomax Platelet mean volume (Bld) [Entitic vol] 9.5 fL Normal 9.5-13.5 [facility] Comment on above: Performed By: #### C BC #### [facility] [address] [place] [address] Dr. Jessie Lomax PLT 407 103/ul Normal 150-450 [facility] Comment on above: Performed By: #### C BC #### [facility] [address] [place] [address] Dr. Jessie Lomax RBC 5.57 106/ul Normal 4.70-6.10 [facility] Comment on above: Performed By: #### C BC #### [facility] [address] [place] [address] Dr. Jessie Lomax WBC 10.0 103/ul Normal 4.0-11.0 [facility] Comment on above: Performed By: #### C BC #### [facility] [address] [place] [address] Dr. Jessie Lomax CULTURE BLOODon 08-29-2022 Microscopic examination of blood, culture Culture Observations: NO GROWTH AT 5 DAYS. Normal [facility] Comment on above: Performed By: #### C MP #### [facility] [address] [place] [address] Dr. Jessie Lomax Microscopic examination of blood, culture Culture Observations: NO GROWTH AT 5 DAYS. Normal [facility] Comment on above: Performed By: #### B LDCX1 #### [facility] [address] [place] [address] Dr. Jessie Lomax Covid-19 PCR (CVDTB)on 08-18 SARS-CoV-2 (COVID-19) RNA YOLANDA+probe Ql (Unsp spec) Not detected Normal NOT DETECTED [facility] Comment on above: Result Comment: When [...] for this test is supported by the [place] of Health and Human Service's declaration that [...] used). Performed By: #### B LDCX1 #### [facility] [address] [place] [address] Dr. Jessie Lomax ER URINE PROFILEon 3 Bilirubin Ql (U) Negative Normal NEGATIVE [facility] Comment on above: Performed By: #### A CETON #### [facility] [address] [place] [address] Dr. Jessie Lomax Clarity (U) CLEAR Normal CLEAR [facility] Comment on above: Performed By: #### A CETON #### [facility] [address] [place] [address] Dr. Jessie Lomax Color (U) YELLOW Normal YELLOW [facility] Comment on above: Performed By: #### A CETON #### [facility] [address] [place] [address] Dr. Jessie BROOKS A micrscopic examination will be performed if indicated. Normal [facility] Comment on above: Performed By: #### A CETON #### [facility] [address] [place] [address] Dr. Jessie Lomax Glucose Ql (U) 500 mg/dl Abnormal NEGATIVE [facility] Comment on above: Performed By: #### A CETON #### [facility] [address] [place] [address] Dr. Jessie Lomax Hemoglobin Ql (U) Negative Normal NEGATIVE [facility] Comment on above: Performed By: #### A CETON #### [facility] [address] [place] [address] Dr. Jessie Lomax Ketones Ql (U) TRACE Abnormal NEGATIVE [facility] Comment on above: Performed By: #### A CETON #### [facility] [address] [place] [address] Dr. Jessie Lomax LEUKOCYTES Negative Normal NEGATIVE [facility] Comment on above: Performed By: #### A CETON #### [facility] [address] [place] [address] Dr. Jessie Lomax Nitrite Ql (U) Negative Normal NEGATIVE [facility] Comment on above: Performed By: #### A CETON #### [facility] [address] [place] [address] Dr. Jessie Lomax pH (U) 5.5 [pH] Normal 5-9 [facility] Comment on above: Performed By: #### A CETON #### [facility] [address] [place] [address] Dr. Jessie Lomax SPEC GRAVITY >=1.030 Abnormal 1.005-<=1.[address] [place] [address] Comment on above: Performed By: #### A CETON #### [facility] [address] [place] [address] Dr. Jessie Lomax UA PROTEIN Negative Normal NEGATIVE/ TRACE [facility] Comment on above: Performed By: #### A CETON #### [facility] [address] [place] [address] Dr. Jessie Lomax UR MICRO IND NOT INDICATED Normal [facility] Comment on above: Performed By: #### A CETON #### [facility] [address] [place] [address] Dr. Jessie Lomax Urobilinogen Qn (U) 0.2 {Angelique'U}/dL Normal 0.2 - 1. 0 [facility] Comment on above: Performed By: #### A CETON #### [facility] [address] [place] [address] Dr. Jessie Lomax LACTATE/LACTIC ACIDon 2022 Lactate [Moles/Vol] 1.6 mmol/L Normal 0.4-1.9 [facility] Comment on above: Performed By: #### L ACT #### [facility] [address] [address] [address] Jessie Lomax POINT OF CARE GLUCOSEon 08-18 Glucose [Mass/Vol] 330 mg/dL Critically high [facility]106 [facility] Comment on above: Performed By: #### A CETON #### [facility] [address] [address] [address] Jessie Lomax Glucose [Mass/Vol] 284 mg/dL Critically high -106 [facility] Comment on above: Performed By: #### C BC #### [facility] [address] [address] [address] Jessie Lomax Glucose [Mass/Vol] 379 mg/dL Critically high [facility]106 [facility] Comment on above: Performed By: #### B LDCX1 #### [facility] [address] [place] [address] Dr. Jessie Lmoax Glucose [Mass/Vol] 276 mg/dL Critically high -106 [facility] Comment on above: Performed By: #### T TYLER #### [facility] [address] [place] [address] Dr. Jessie Lomax PROF 14(COMP METB)on 023 Albumin [Mass/Vol] 3.8 g/dL Normal 3.4-5.0 [facility] Comment on above: Performed By: #### B LDCX1 #### [facility] [address] [place] [address] Dr. Jessie Lomax Albumin/Globulin [Mass ratio] 1.0 {ratio} Normal [facility] Comment on above: Performed By: #### B LDCX1 #### [facility] [address] [place] [address] Dr. Jessie Lomax ALP [Catalytic activity/Vol] 106 U/L Normal 46-116 [facility] Comment on above: Performed By: #### B LDCX1 #### [facility] [address] [address] [address] Jessie Lomax ALT [Catalytic activity/Vol] 27 U/L Normal 16-63 [facility] Comment on above: Performed By: #### B LDCX1 #### [facility] [address] [place] [address] Dr. Jessie Lomax Anion gap [Moles/Vol] 12.0 mmol/L Normal [facility] Comment on above: Performed By: #### B LDCX1 #### [facility] [address] [address] [address] Jessie Lomax AST [Catalytic activity/Vol] 15 U/L Normal 15-37 [facility] Comment on above: Performed By: #### B LDCX1 #### [facility] [address] [place] [address] Dr. Jessie Lomax Bilirubin [Mass/Vol] 0.3 mg/dL Normal 0.2-1.0 [facility] Comment on above: Performed By: #### B LDCX1 #### [facility] [address] [place] [address] Dr. Jessie Lomax Calcium [Mass/Vol] 10.0 mg/dL Normal 8.5-10.1 [facility] Comment on above: Performed By: #### B LDCX1 #### [facility] [address] [place] [address] Dr. Jessie Lomax Chloride [Moles/Vol] 101 mmol/L Normal 98-107 [facility] Comment on above: Performed By: #### B LDCX1 #### [facility] [address] [place] [address] Dr. Jessie Lomax CO2 [Moles/Vol] 32.4 mmol/L Critically high 21.0-32.0 [facility] Comment on above: Performed By: #### B LDCX1 #### [facility] [address] [place] [address] Dr. Jessie Lomax Creatinine [Mass/Vol] 1.14 mg/dL Normal 0.70-1.30 [facility] Comment on above: Performed By: #### B LDCX1 #### [facility] [address] [place] [address] Dr. Jessie Lomax EGFR-AF YEMENI >60 Normal >=60 [facility] Comment on above: Performed By: #### B LDCX1 #### [facility] [address] [address] [address] Jessie Lomax EGFR-NON AF YEMENI >60 Normal >=60 [facility] Comment on above: Performed By: #### B [id number] #### [facility] [address] [address] [address] Jessie Lomax Globulin (S) [Mass/Vol] 3.7 g/dL Normal [facility] Comment on above: Performed By: #### B LDCX1 #### [facility] [address] [address] [address] Jessie Lomax Glucose [Mass/Vol] 204 mg/dL Critically high 74-106 [facility] Comment on above: Performed By: #### B LDCX1 #### [facility] [address] [place] [address] Dr. Jessie Lomax Potassium [Moles/Vol] 4.4 mmol/L Normal 3.5-5.1 [facility] Comment on above: Performed By: #### B LDCX1 #### [facility] [address] [place] [address] Dr. Jessie Lomax Protein [Mass/Vol] 7.5 g/dL Normal 6.4-8.2 [facility] Comment on above: Performed By: #### B LDCX1 #### [facility] [address] [place] [address] Dr. Jessie Lomax Sodium [Moles/Vol] 141 mmol/L Normal 136-145 [facility] Comment on above: Performed By: #### B LDCX1 #### [facility] [address] [place] [address] Dr. Jessie Lomax Urea nitrogen [Mass/Vol] 23.0 mg/dL Critically high 7.0-18.0 [facility] Comment on above: Performed By: #### B LDCX1 #### [facility] [address] [place] [address] Dr. Jessie Lomax Urea nitrogen/Creatinine [Mass ratio] 20.2 mg/mg Normal [facility] Comment on above: Performed By: #### B LDCX1 #### [facility] [address] [place] [address] Dr. Jessie Lomax THEOPHYLLINEon 08-29-2022 THEOPHYLLINE <2.0 Critically low 10.0-20.0 [facility] Comment on above: Performed By: #### B LDCX1 #### [facility] [address] [place] [address] Dr. Jessie Lomax XR CHEST 1 Von [...] YADIRA BALLESTEROS Date: 2022-08-29 02:03 Normal [facility] ACETONE SERUMon 08-17-2022 ACETONE Negative Normal NEGATIVE [facility] Comment on above: Performed By: #### A CETON #### [facility] [address] [place] [address] Dr. Jessie Lomax BNPon 08-17-2022 Natriuretic peptide B (Bld) [Mass/Vol] 294.0 pg/mL Normal <=900.0 [facility] Comment on above: Performed By: #### A CETON #### [facility] [address] [place] [address] Dr. Jessie Lomax CBC AUTO DIFFon 08-17-2022 BASO # 0.1 103/ul Normal 0.0-0.1 [facility] Comment on above: Performed By: #### C BC #### [facility] [address] [place] [address] Dr. Jessie Lomax Basophils/100 WBC (Bld) 0.7 % Normal 0.2-2.0 [facility] Comment on above: Performed By: #### C BC #### [facility] [address] [place] [address] Dr. Jessie Lomax EO # 0.1 103/ul Normal 0.0-0.7 [facility] Comment on above: Performed By: #### C BC #### [facility] [address] [place] [address] Dr. Jessie Lomax Eosinophils/100 WBC (Bld) 0.9 % Normal 0.9-7.0 [facility] Comment on above: Performed By: #### C BC #### [facility] [address] [place] [address] Dr. Jessie Lomax Erythrocyte distribution width (RBC) [Ratio] 13.4 % Normal 11.0-15.0 [facility] Comment on above: Performed By: #### C BC #### [facility] [address] [place] [address] Dr. Jessie Lomax Hematocrit (Bld) [Volume fraction] 43.2 % Normal 42.0-54.0 [facility] Comment on above: Performed By: #### C BC #### [facility] [address] [place] [address] Dr. Jessie Lomax Hemoglobin (Bld) [Mass/Vol] 14.5 g/dL Normal 14.0-18.0 [facility] Comment on above: Performed By: #### C BC #### [facility] [address] [place] [address] Dr. Jessie Lomax IG # 0.04 10e3/ul Critically high 0.00-0.03 [facility] Comment on above: Performed By: #### C BC #### [facility] [address] [place] [address] Dr. Jessie Lomax IG % 0.5 % Normal 0.0-0.5 [facility] Comment on above: Performed By: #### C BC #### [facility] [address] [place] [address] Dr. Jessie Lomax LYMPH # 1.9 103/ul Normal 1.2-3.8 [facility] Comment on above: Performed By: #### C BC #### [facility] [address] [place] [address] Dr. Jessie Lomax Lymphocytes/100 WBC (Bld) 22.1 % Normal 20.5-60.0 [facility] Comment on above: Performed By: #### C BC #### [facility] [address] [place] [address] Dr. Jessie Lomax MANUAL DIFF REQ NO Normal [facility] Comment on above: Performed By: #### C BC #### [facility] [address] [place] [address] Dr. Jessie Lomax MCH (RBC) [Entitic mass] 30.7 pg Normal 25.9-34.0 [facility] Comment on above: Performed By: #### C BC #### [facility] [address] [place] [address] Dr. Jessie Lomax MCHC (RBC) [Mass/Vol] 33.6 g/dL Normal 29.9-35.2 [facility] Comment on above: Performed By: #### C BC #### [facility] [address] [place] [address] Dr. Jessie Lomax MCV (RBC) [Entitic vol] 91.5 fL Normal 80.0-94.0 [facility] Comment on above: Performed By: #### C BC #### [facility] [address] [place] [address] Dr. Jessie Lomax MONO # 0.7 103/ul Normal 0.3-0.8 [facility] Comment on above: Performed By: #### C BC #### [facility] [address] [place] [address] Dr. Jessie Lomax Monocytes/100 WBC (Bld) 7.7 % Normal 1.7-12.0 [facility] Comment on above: Performed By: #### C BC #### [facility] [address] [place] [address] Dr. Jessie Lomax NEUT # 5.8 103/ul Normal 1.4-6.5 [facility] Comment on above: Performed By: #### C BC #### [facility] [address] [place] [address] Dr. Jessie Lomax Neutrophils/100 WBC (Bld) 68.1 % Normal 43.0-75.0 [facility] Comment on above: Performed By: #### C BC #### [facility] [address] [place] [address] Dr. Jessie Loamx Platelet mean volume (Bld) [Entitic vol] 9.0 fL Critically low 9.5-13.5 [facility] Comment on above: Performed By: #### C BC #### [facility] [address] [place] [address] Dr. Jessie Lomax PLT 275 103/ul Normal 150-450 [facility] Comment on above: Performed By: #### C BC #### [facility] [address] [place] [address] Dr. Jessie Lmoax RBC 4.72 106/ul Normal 4.70-6.10 [facility] Comment on above: Performed By: #### C BC #### [facility] [address] [place] [address] Dr. Jessie Lomax WBC 8.6 103/ul Normal 4.0-11.0 [facility] Comment on above: Performed By: #### C BC #### [facility] [address] [place] [address] Dr. Jessie Lomax CTA CHEST WO W [...] DAVID GIBBS Date: 2022-08-17 17:23 Normal [facility] CULTURE BLOODon 08-17-2022 Microscopic examination of blood, culture Culture Observations: NO GROWTH AT 5 DAYS. Normal [facility] Comment on above: Performed By: #### C MP #### [facility] [address] [address] [address] Jessie Lomax Microscopic examination of blood, culture Culture Observations: NO GROWTH AT 5 DAYS. Normal [facility] Comment on above: Performed By: #### B LDCX1 #### [facility] [address] [address] [address] Jessie Lomax [facility] SARS-CoV-2 (COVID-19) RNA YOLANDA+probe Ql (Unsp spec) Not detected Normal NOT DETECTED [facility] Comment on above: Result Comment: When [...] for this test is supported by the [place] of Health and Human Service's declaration that [...] used). Performed By: #### C BC #### [facility] [address] [address] [address] Jessie Lomax LACTATE/LACTIC ACIDon 2022 Lactate [Moles/Vol] 2.0 mmol/L Critically high 0.4-1.9 [facility] Comment on above: Performed By: #### C BC #### [facility] [address] [place] [address] Dr. Jessie Lomax PH VENOUS BLOODon 08-17-2022 PCO2 VENOUS 44.5 mmHg Normal 40.0-52.0 [facility] Comment on above: Performed By: #### C BC #### [facility] [address] [place] [address] Dr. Jessie Lomax pH VENOUS 7.433 Critically high 7.330-7.430 [facility] Comment on above: Performed By: #### C BC #### [facility] [address] [place] [address] Dr. Jessie Lomax PROF 14(COMP METB)on 023 Albumin [Mass/Vol] 3.4 g/dL Normal 3.4-5.0 [facility] Comment on above: Performed By: #### C BC #### [facility] [address] [place] [address] Dr. Jessie Lomax Albumin/Globulin [Mass ratio] 1.1 {ratio} Normal [facility] Comment on above: Performed By: #### C BC #### [facility] [address] [place] [address] Dr. Jessie Lomax ALP [Catalytic activity/Vol] 90 U/L Normal 46-116 [facility] Comment on above: Performed By: #### C BC #### [facility] [address] [place] [address] Dr. Jessie Lomax ALT [Catalytic activity/Vol] 26 U/L Normal 16-63 [facility] Comment on above: Performed By: #### C BC #### [facility] [address] [place] [address] Dr. Jessie Lomax Anion gap [Moles/Vol] 11.1 mmol/L Normal [facility] Comment on above: Performed By: #### C BC #### [facility] [address] [place] [address] Dr. Jessie Lomax AST [Catalytic activity/Vol] 9 U/L Critically low 15-37 [facility] Comment on above: Performed By: #### C BC #### [facility] [address] [place] [address] Dr. Jessie Lomax Bilirubin [Mass/Vol] 0.2 mg/dL Normal 0.2-1.0 [facility] Comment on above: Performed By: #### C BC #### [facility] [address] [address] [address] Jessie Lomax Calcium [Mass/Vol] 9.0 mg/dL Normal 8.5-10.1 [facility] Comment on above: Performed By: #### C BC #### [facility] [address] [place] [address] Dr. Jessie Lomax Chloride [Moles/Vol] 103 mmol/L Normal 98-107 [facility] Comment on above: Performed By: #### C BC #### [facility] [address] [place] [address] Dr. Jessie Lomax CO2 [Moles/Vol] 31.5 mmol/L Normal 21.0-32.0 [facility] Comment on above: Performed By: #### C BC #### [facility] [address] [place] [address] Dr. Jessie Lomax Creatinine [Mass/Vol] 0.94 mg/dL Normal 0.70-1.30 [facility] Comment on above: Performed By: #### C BC #### [facility] [address] [place] [address] Dr. Jessie Lomax EGFR-AF YEMENI >60 Normal >=60 [facility] Comment on above: Performed By: #### C BC #### [facility] [address] [place] [address] Dr. Jessie Lomax EGFR-NON AF YEMENI >60 Normal >=60 [facility] Comment on above: Performed By: #### C BC #### [facility] [address] [place] [address] Dr. Jessie Lomax Globulin (S) [Mass/Vol] 3.2 g/dL Normal [facility] Comment on above: Performed By: #### C BC #### [facility] [address] [address] [address] Jessie Lomax Glucose [Mass/Vol] 124 mg/dL Critically high 74-106 [facility] Comment on above: Performed By: #### C BC #### [facility] [address] [address] [address] Jessie Lomax Potassium [Moles/Vol] 3.6 mmol/L Normal 3.5-5.1 [facility] Comment on above: Performed By: #### C BC #### [facility] [address] [address] [address] Jessie Lomax Protein [Mass/Vol] 6.6 g/dL Normal 6.4-8.2 [facility] Comment on above: Performed By: #### C BC #### [facility] [address] [address] [address] Jessie Lomax Sodium [Moles/Vol] 142 mmol/L Normal 136-145 [facility] Comment on above: Performed By: #### C BC #### [facility] [address] [address] [address] Jessie Lomax Urea nitrogen [Mass/Vol] 14.0 mg/dL Normal 7.0-18.0 [facility] Comment on above: Performed By: #### C BC #### [facility] [address] [address] [address] Jessie Lomax Urea nitrogen/Creatinine [Mass ratio] 14.9 mg/mg Normal [facility] Comment on above: Performed By: #### C BC #### [facility] [address] [address] [address] Jessie Lomax PROTIMEon 08-17-2022 INR Coag (PPP) [Relative time] {INR} Normal [facility] Comment on above: Performed By: #### B LDCX1 #### [facility] [address] [address] [address] Jessie Lomax INR GUIDELINES SEE BELOW Normal [facility] Comment on above: Result Comment: VANESSA RED INR: 2.0 - 3.0 CONDITIONS NOT LISTED BELOW 2.5 - 3.5 FOR PROSTHETIC HEART VALVE REPLACEMENT 2.5 - 3.5 RECURRENT THROMBOSIS Performed By: #### B LDCX1 #### [facility] [address] [place] [address] Dr. Jessie Lomax PT Coag (PPP) [Time] 9.7 s Normal 9.0-11.6 [facility] Comment on above: Performed By: #### B LDCX1 #### [facility] [address] [place] [address] Dr. Jessie Lomax PTTon 08-17-2022 aPTT Coag (Bld) [Time] 23.4 s Normal 22.3-36.2 [facility] Comment on above: Performed By: #### B LDCX1 #### [facility] [address] [place] [address] Dr. Jessie Lomax TROPONIN, HIGH SENSITIVITYon 08-17-2022 HSTROP 14.6 pg/mL Normal 4.0-76.1 [facility] Comment on above: Result Comment: CUT- OFF POINTS HAVE BEEN ESTABLISHED BASED ON THE FOURTH UNIVERSAL DEFINITIONS OF MYOCARDIAL INFARCTION. THE UPPER REFERENCE LIMIT (URL) OF TROPONIN, DEFINED THE 99TH PERCENTILE OF cTnI DISTRIBUTION IN A REFERENCE POPULATION, HAS BEEN CONFIRMED THE DECISION THRESHOLD FOR PR DIAGNOSIS. Performed By: #### A CETON #### [facility] [address] [place] [address] Dr. Jessie Lomax TSHon 08-17-2022 TSH 1.079 uIU/mL Normal 0.358-3.740 [facility] Comment on above: Performed By: #### C BC #### [facility] [address] [place] [address] Dr. Jessie Lomax THEOPHYLLINEon 08-10-2022 THEOPHYLLINE 11.3 ug/mL Normal 10.0-20.0 [facility] Comment on above: Performed By: #### T TYLER #### [facility] [address] [place] [address] Dr. Jessie Lomax CBC AUTO DIFFon 07-02-2022 BASO # 0.0 103/ul Normal 0.0-0.1 [facility] Comment on above: Performed By: #### T TYLER #### [facility] [address] [place] [address] Dr. Jessie Lomax Basophils/100 WBC (Bld) 0.1 % Critically low 0.2-2.0 [facility] Comment on above: Performed By: #### T TYLER #### [facility] [address] [place] [address] Dr. Jessie Lomax EO # 0.0 103/ul Normal 0.0-0.7 [facility] Comment on above: Performed By: #### T TYLER #### [facility] [address] [place] [address] Dr. Jessie Lomax Eosinophils/100 WBC (Bld) 0.1 % Critically low 0.9-7.0 [facility] Comment on above: Performed By: #### T TYLER #### [facility] [address] [place] [address] Dr. Jessie Lomax Erythrocyte distribution width (RBC) [Ratio] 13.6 % Normal 11.0-15.0 [facility] Comment on above: Performed By: #### T TYLER #### [facility] [address] [place] [address] Dr. Jessie Lomax Hematocrit (Bld) [Volume fraction] 44.4 % Normal 42.0-54.0 [facility] Comment on above: Performed By: #### T TYLER #### [facility] [address] [place] [address] Dr. Jessie Lomax Hemoglobin (Bld) [Mass/Vol] 14.9 g/dL Normal 14.0-18.0 [facility] Comment on above: Performed By: #### T TYLER #### [facility] [address] [place] [address] Dr. Jessie Lomax IG # 0.11 10e3/ul Critically high 0.00-0.03 [facility] Comment on above: Performed By: #### T TYLER #### [facility] [address] [place] [address] Dr. Jessei Lomax IG % 0.7 % Critically high 0.0-0.5 [facility] Comment on above: Performed By: #### T TYLER #### [facility] [address] [place] [address] Dr. Jessie Lomax LYMPH # 0.8 103/ul Critically low 1.2-3.8 [facility] Comment on above: Performed By: #### T TYLER #### [facility] [address] [place] [address] Dr. Jessie Lomax Lymphocytes/100 WBC (Bld) 5.1 % Critically low 20.5-60.0 [facility] Comment on above: Performed By: #### T TYLER #### [facility] [address] [place] [address] Dr. Jessie Lomax MANUAL DIFF REQ NO Normal [facility] Comment on above: Performed By: #### T TYLER #### [facility] [address] [place] [address] Dr. Jessie Lomax MCH (RBC) [Entitic mass] 31.1 pg Normal 25.9-34.0 [facility] Comment on above: Performed By: #### T TYLER #### [facility] [address] [place] [address] Dr. Jessie Lomax MCHC (RBC) [Mass/Vol] 33.6 g/dL Normal 29.9-35.2 [facility] Comment on above: Performed By: #### T TYLER #### [facility] [address] [place] [address] Dr. Jessie Lomax MCV (RBC) [Entitic vol] 92.7 fL Normal 80.0-94.0 [facility] Comment on above: Performed By: #### T TYLER #### [facility] [address] [place] [address] Dr. Jessie Lomax MONO # 0.4 103/ul Normal 0.3-0.8 [facility] Comment on above: Performed By: #### T TYLER #### [facility] [address] [place] [address] Dr. Jessie Lomax Monocytes/100 WBC (Bld) 2.6 % Normal 1.7-12.0 [facility] Comment on above: Performed By: #### T TYLER #### [facility] [address] [place] [address] Dr. Jessie Lomax NEUT # 13.8 103/ul Critically high 1.4-6.5 [facility] Comment on above: Performed By: #### T TYLER #### [facility] [address] [place] [address] Dr. Jessie Lomax Neutrophils/100 WBC (Bld) 91.4 % Critically high 43.0-75.0 [facility] Comment on above: Performed By: #### T TYLER #### [facility] [address] [place] [address] Dr. Jessie Lomax Platelet mean volume (Bld) [Entitic vol] 9.9 fL Normal 9.5-13.5 [facility] Comment on above: Performed By: #### T TYLER #### [facility] [address] [place] [address] Dr. Jessie Lomax PLT 300 103/ul Normal 150-450 [facility] Comment on above: Performed By: #### T TYLER #### [facility] [address] [place] [address] Dr. Jessie Lomax RBC 4.79 106/ul Normal 4.70-6.10 [facility] Comment on above: Performed By: #### T TYLER #### [facility] [address] [place] [address] Dr. Jessie Lomax WBC 15.1 103/ul Critically high 4.0-11.0 [facility] Comment on above: Performed By: #### T TYLER #### [facility] [address] [place] [address] Dr. Jessie Lomax POINT OF CARE GLUCOSEon 06-17 Glucose [Mass/Vol] 288 mg/dL Critically high 74-106 [facility] Comment on above: Performed By: #### C BC #### [facility] [address] [place] [address] Dr. Jessie Lomax Glucose [Mass/Vol] 280 mg/dL Critically high 74-106 [facility] Comment on above: Performed By: #### T TYLER #### [facility] [address] [place] [address] Dr. Jessie Lomax PROF 14(COMP METB)on 022 Albumin [Mass/Vol] 3.7 g/dL Normal 3.4-5.0 [facility] Comment on above: Performed By: #### C MP #### [facility] [address] [place] [address] Dr. Jessie Lomax Albumin/Globulin [Mass ratio] 1.1 {ratio} Normal [facility] Comment on above: Performed By: #### C MP #### [facility] [address] [place] [address] Dr. Jessie Lomax ALP [Catalytic activity/Vol] 73 U/L Normal 46-116 [facility] Comment on above: Performed By: #### C MP #### [facility] [address] [place] [address] Dr. Jessie Lomax ALT [Catalytic activity/Vol] 22 U/L Normal 16-63 [facility] Comment on above: Performed By: #### C MP #### [facility] [address] [place] [address] Dr. Jessie Lomax Anion gap [Moles/Vol] 13.4 mmol/L Normal [facility] Comment on above: Performed By: #### C MP #### [facility] [address] [place] [address] Dr. Jessie Lomax AST [Catalytic activity/Vol] 16 U/L Normal 15-37 [facility] Comment on above: Performed By: #### C MP #### [facility] [address] [place] [address] Dr. Jessie Lomax Bilirubin [Mass/Vol] 0.3 mg/dL Normal 0.2-1.0 [facility] Comment on above: Performed By: #### C MP #### [facility] [address] [place] [address] Dr. Jessie Lomax Calcium [Mass/Vol] 9.3 mg/dL Normal 8.5-10.1 [facility] Comment on above: Performed By: #### C MP #### [facility] [address] [address] [address] Jessie Lomax Chloride [Moles/Vol] 98 mmol/L Normal 98-107 [facility] Comment on above: Performed By: #### C MP #### [facility] [address] [address] [address] Jessie Lomax CO2 [Moles/Vol] 29.9 mmol/L Normal 21.0-32.0 [facility] Comment on above: Performed By: #### C MP #### [facility] [address] [place] [address] Dr. Jessie Lomax Creatinine [Mass/Vol] 1.18 mg/dL Normal 0.70-1.30 [facility] Comment on above: Performed By: #### C MP #### [facility] [address] [place] [address] Dr. Jessie Lomax EGFR-AF YEMENI >60 Normal >=60 [facility] Comment on above: Performed By: #### C MP #### [facility] [address] [address] [address] Jessie Lomax EGFR-NON AF YEMENI >60 Normal >=60 [facility] Comment on above: Performed By: #### C MP #### [facility] [address] [place] [address] Dr. Jessie Lomax Globulin (S) [Mass/Vol] 3.3 g/dL Normal [facility] Comment on above: Performed By: #### C MP #### [facility] [address] [place] [address] Dr. Jessie Lomax Glucose [Mass/Vol] 329 mg/dL Critically high 74-106 [facility] Comment on above: Performed By: #### C MP #### [facility] [address] [place] [address] Dr. Jesise Lomax Potassium [Moles/Vol] 4.3 mmol/L Normal 3.5-5.1 [facility] Comment on above: Performed By: #### C MP #### [facility] [address] [place] [address] Dr. Jessie Lomax Protein [Mass/Vol] 7.0 g/dL Normal 6.4-8.2 [facility] Comment on above: Performed By: #### C MP #### [facility] [address] [place] [address] Dr. Jessie Lomax Sodium [Moles/Vol] 137 mmol/L Normal 136-145 [facility] Comment on above: Performed By: #### C MP #### [facility] [address] [place] [address] Dr. Jessie Lomax Urea nitrogen [Mass/Vol] 21.0 mg/dL Critically high 7.0-18.0 [facility] Comment on above: Performed By: #### C MP #### [facility] [address] [place] [address] Dr. Jessie Lomax Urea nitrogen/Creatinine [Mass ratio] 17.8 mg/mg Normal [facility] Comment on above: Performed By: #### C MP #### [facility] [address] [place] [address] Dr. Jessie Lomax CBC W MANUAL DIFFon 07-01-20 22 ATYPICAL LYMPH # Normal [facility] Comment on above: Performed By: #### C BC #### [facility] [address] [place] [address] Dr. Jessie Lomax ATYPICAL LYMPH % Normal [facility] Comment on above: Performed By: #### C BC #### [facility] [address] [place] [address] Dr. Jessie Lomax BAND # 0.1 103/ul Normal 0.0-0.3 [facility] Comment on above: Performed By: #### C BC #### [facility] [address] [place] [address] Dr. Jessie Lomax BAND % 1 % Normal 0-5 [facility] Comment on above: Performed By: #### C BC #### [facility] [address] [place] [address] Dr. Jessie Lomax BASOM # 0.00 103/ul Normal 0.00-0.10 [facility] Comment on above: Performed By: #### C BC #### [facility] [address] [place] [address] Dr. Jessie Lomax BASOM % 0.0 % Critically low 0.2-2.0 [facility] Comment on above: Performed By: #### C BC #### [facility] [address] [place] [address] Dr. Jessie Lomax BLAST # Normal [facility] Comment on above: Performed By: #### C BC #### [facility] [address] [place] [address] Dr. Jessie Lomax BLAST % Normal [facility] Comment on above: Performed By: #### C BC #### [facility] [address] [place] [address] Dr. Jessie Lomax CORRECTED WBC Normal 4.0-11.0 [facility] Comment on above: Performed By: #### C BC #### [facility] [address] [place] [address] Dr. Jessie Lomax EOS # 0.12 103/ul Normal 0.00-0.70 [facility] Comment on above: Performed By: #### C BC #### [facility] [address] [place] [address] Dr. Jessie Lomax EOS% 1.0 % Normal 0.9-7.0 [facility] Comment on above: Performed By: #### C BC #### [facility] [address] [place] [address] Dr. Jessie Lomax HCT 45.4 % Normal 42.0-54.0 [facility] Comment on above: Performed By: #### C BC #### [facility] [address] [place] [address] Dr. Jessie Lomax HGB 15.5 g/dl Normal 14.0-18.0 [facility] Comment on above: Performed By: #### C BC #### [facility] [address] [place] [address] Dr. Jessie Lomax LYMPHM # 0.48 103/ul Critically low 1.20-3.80 [facility] Comment on above: Performed By: #### C BC #### [facility] [address] [place] [address] Dr. Jessie Lomax LYMPHM% 4.0 % Critically low 20.5-60.0 [facility] Comment on above: Performed By: #### C BC #### [facility] [address] [place] [address] Dr. Jessie Lomax MCH 31.8 pg Normal 25.9-34.0 [facility] Comment on above: Performed By: #### C BC #### [facility] [address] [place] [address] Dr. Jessie Lomax MCHC 34.1 g/dl Normal 29.9-35.2 [facility] Comment on above: Performed By: #### C BC #### [facility] [address] [place] [address] Dr. Jessie Lomax MCV 93.0 fL Normal 80.0-94.0 [facility] Comment on above: Performed By: #### C BC #### [facility] [address] [place] [address] Dr. Jessie oLmax METAMYELOCYTE # Normal [facility] Comment on above: Performed By: #### C BC #### [facility] [address] [place] [address] Dr. Jessie Lomax METAMYELOCYTE % Normal [facility] Comment on above: Performed By: #### C BC #### [facility] [address] [place] [address] Dr. Jessie Lomax MONOM# 0.24 103/ul Critically low 0.30-0.80 [facility] Comment on above: Performed By: #### C BC #### [facility] [address] [place] [address] Dr. Jessie Lomax MONOM% 2.0 % Normal 1.7-12.0 [facility] Comment on above: Performed By: #### C BC #### [facility] [address] [place] [address] Dr. Jessie Lomax MPV 9.6 fL Normal 9.5-13.5 [facility] Comment on above: Performed By: #### C BC #### [facility] [address] [place] [address] Dr. Jessie Lomax MYELOCYTE # Normal [facility] Comment on above: Performed By: #### C BC #### [facility] [address] [place] [address] Dr. Jessie Lomax MYELOCYTE % Normal [facility] Comment on above: Performed By: #### C BC #### [facility] [address] [place] [address] Dr. Jessie Lomax NRBC Normal [facility] Comment on above: Performed By: #### C BC #### [facility] [address] [place] [address] Dr. Jessie Lomax PLT 300 103/ul Normal 150-450 [facility] Comment on above: Performed By: #### C BC #### [facility] [address] [place] [address] Dr. Jessie Lomax RBC 4.88 106/ul Normal 4.70-6.10 [facility] Comment on above: Performed By: #### C BC #### [facility] [address] [place] [address] Dr. Jessie Lomax RDW 13.5 % Normal 11.0-15.0 [facility] Comment on above: Performed By: #### C BC #### [facility] [address] [place] [address] Dr. Jessie Lomax SEG # 10.95 103/ul Critically high 1.40-6.50 [facility] Comment on above: Performed By: #### C BC #### [facility] [address] [place] [address] Dr. Jessie Lomax SEG % 92.0 % Critically high 43.0-75.0 [facility] Comment on above: Performed By: #### C BC #### [facility] [address] [place] [address] Dr. Jessie Lomax WBC 11.9 103/ul Critically high 4.0-11.0 [facility] Comment on above: Performed By: #### C BC #### [facility] [address] [address] [address] Jessie Lomax POINT OF CARE GLUCOSEon 06-17 Glucose [Mass/Vol] 428 mg/dL Critically high [facility]106 [facility] Comment on above: Performed By: #### A CETON #### [facility] [address] [address] [address] Jessie Lomax Glucose [Mass/Vol] 337 mg/dL Critically high -106 [facility] Comment on above: Performed By: #### B LDCX1 #### [facility] [address] [address] [address] Jessie Lomax Glucose [Mass/Vol] 233 mg/dL Critically high [address] [place] [address] Comment on above: Performed By: #### B LDCX1 #### [facility] [address] [address] [address] Jessie Lomax PROF 14(COMP METB)on 022 Albumin [Mass/Vol] 3.7 g/dL Normal 3.4-5.0 [facility] Comment on above: Performed By: #### C MP #### [facility] [address] [place] [address] Dr. Jessie Lomax Albumin/Globulin [Mass ratio] 1.1 {ratio} Normal [facility] Comment on above: Performed By: #### C MP #### [facility] [address] [place] [address] Dr. Jessie Lomax ALP [Catalytic activity/Vol] 86 U/L Normal 46-116 [facility] Comment on above: Performed By: #### C MP #### [facility] [address] [address] [address] Jessie Lomax ALT [Catalytic activity/Vol] 20 U/L Normal 16-63 [facility] Comment on above: Performed By: #### C MP #### [facility] [address] [address] [address] Jessie Lomax Anion gap [Moles/Vol] 13.8 mmol/L Normal [facility] Comment on above: Performed By: #### C MP #### [facility] [address] [address] [address] Jessie Lomax AST [Catalytic activity/Vol] 10 U/L Critically low 15-37 [facility] Comment on above: Performed By: #### C MP #### [facility] [address] [address] [address] Jessie Lomax Bilirubin [Mass/Vol] 0.3 mg/dL Normal 0.2-1.0 [facility] Comment on above: Performed By: #### C MP #### [facility] [address] [address] [address] Jessie Lomax Calcium [Mass/Vol] 9.3 mg/dL Normal 8.5-10.1 [facility] Comment on above: Performed By: #### C MP #### [facility] [address] [address] [address] Jessie Lomax Chloride [Moles/Vol] 101 mmol/L Normal 98-107 [facility] Comment on above: Performed By: #### C MP #### [facility] [address] [address] [address] Jessie Lomax CO2 [Moles/Vol] 27.0 mmol/L Normal 21.0-32.0 [facility] Comment on above: Performed By: #### C MP #### [facility] [address] [address] [address] Jessie Lomax Creatinine [Mass/Vol] 1.15 mg/dL Normal 0.70-1.30 [facility] Comment on above: Performed By: #### C MP #### [facility] [address] [address] [address] Jessie Lomax EGFR-AF YEMENI >60 Normal >=60 [facility] Comment on above: Performed By: #### C MP #### [facility] [address] [address] [address] Jessie Lomax EGFR-NON AF YEMENI >60 Normal >=60 [facility] Comment on above: Performed By: #### C MP #### [facility] [address] [address] [address] Jessie Lomax Globulin (S) [Mass/Vol] 3.5 g/dL Normal [facility] Comment on above: Performed By: #### C MP #### [facility] [address] [place] [address] Dr. Jessie Lomax Glucose [Mass/Vol] 284 mg/dL Critically high 74-106 [facility] Comment on above: Performed By: #### C MP #### [facility] [address] [place] [address] Dr. Jessie Lomax Potassium [Moles/Vol] 4.8 mmol/L Normal 3.5-5.1 [facility] Comment on above: Performed By: #### C MP #### [facility] [address] [place] [address] Dr. Jessie Lomax Protein [Mass/Vol] 7.2 g/dL Normal 6.4-8.2 [facility] Comment on above: Performed By: #### C MP #### [facility] [address] [place] [address] Dr. Jessie Lomax Sodium [Moles/Vol] 137 mmol/L Normal 136-145 [facility] Comment on above: Performed By: #### C MP #### [facility] [address] [place] [address] Dr. Jessie Lomax Urea nitrogen [Mass/Vol] 22.0 mg/dL Critically high 7.0-18.0 [facility] Comment on above: Performed By: #### C MP #### [facility] [address] [place] [address] Dr. Jessie Lomax Urea nitrogen/Creatinine [Mass ratio] 19.1 mg/mg Normal [facility] Comment on above: Performed By: #### C MP #### [facility] [address] [place] [address] Dr. Jessie Lomax ACETONE SERUMon 06-30-2022 ACETONE Negative Normal NEGATIVE [facility] Comment on above: Performed By: #### A CETON #### [facility] [address] [place] [address] Dr. Jessie Lomax BNPon 06-30-2022 Natriuretic peptide B (Bld) [Mass/Vol] 45.0 pg/mL Normal <=900.0 [facility] Comment on above: Performed By: #### T TYLER #### [facility] [address] [place] [address] Dr. Jessie Lomax CBC AUTO DIFFon 06-30-2022 BASO # 0.1 103/ul Normal 0.0-0.1 [facility] Comment on above: Performed By: #### C MP #### [facility] [address] [place] [address] Dr. Jessie Lomax Basophils/100 WBC (Bld) 0.9 % Normal 0.2-2.0 [facility] Comment on above: Performed By: #### C MP #### [facility] [address] [place] [address] Dr. Jessie Lomax EO # 0.1 103/ul Normal 0.0-0.7 [facility] Comment on above: Performed By: #### C MP #### [facility] [address] [place] [address] Dr. Jessie Lomax Eosinophils/100 WBC (Bld) 0.9 % Normal 0.9-7.0 [facility] Comment on above: Performed By: #### C MP #### [facility] [address] [place] [address] Dr. Jessie Lomax Erythrocyte distribution width (RBC) [Ratio] 13.4 % Normal 11.0-15.0 [facility] Comment on above: Performed By: #### C MP #### [facility] [address] [place] [address] Dr. Jessie Lomax Hematocrit (Bld) [Volume fraction] 47.0 % Normal 42.0-54.0 [facility] Comment on above: Performed By: #### C MP #### [facility] [address] [place] [address] Dr. Jessie Lomax Hemoglobin (Bld) [Mass/Vol] 16.0 g/dL Normal 14.0-18.0 [facility] Comment on above: Performed By: #### C MP #### [facility] [address] [address] [address] Jessie Lomax IG # 0.05 10e3/ul Critically high 0.00-0.03 [facility] Comment on above: Performed By: #### C MP #### [facility] [address] [place] [address] Dr. Jessie Lomax IG % 0.5 % Normal 0.0-0.5 [facility] Comment on above: Performed By: #### C MP #### [facility] [address] [place] [address] Dr. Jessie Lomax LYMPH # 2.0 103/ul Normal 1.2-3.8 [facility] Comment on above: Performed By: #### C MP #### [facility] [address] [place] [address] Dr. Jessie Lomax Lymphocytes/100 WBC (Bld) 20.1 % Critically low 20.5-60.0 [facility] Comment on above: Performed By: #### C MP #### [facility] [address] [place] [address] Dr. Jessie Lomax MANUAL DIFF REQ NO Normal [facility] Comment on above: Performed By: #### C MP #### [facility] [address] [place] [address] Dr. Jessie Lomax MCH (RBC) [Entitic mass] 31.5 pg Normal 25.9-34.0 [facility] Comment on above: Performed By: #### C MP #### [facility] [address] [place] [address] Dr. Jessie Lomax MCHC (RBC) [Mass/Vol] 34.0 g/dL Normal 29.9-35.2 [facility] Comment on above: Performed By: #### C MP #### [facility] [address] [place] [address] Dr. Jessie Lomax MCV (RBC) [Entitic vol] 92.5 fL Normal 80.0-94.0 [facility] Comment on above: Performed By: #### C MP #### [facility] [address] [address] [address] Jessie Lomax MONO # 0.7 103/ul Normal 0.3-0.8 [facility] Comment on above: Performed By: #### C MP #### [facility] [address] [place] [address] Dr. Jessie Lomax Monocytes/100 WBC (Bld) 6.8 % Normal 1.7-12.0 [facility] Comment on above: Performed By: #### C MP #### [facility] [address] [place] [address] Dr. Jessie Lomax NEUT # 6.9 103/ul Critically high 1.4-6.5 [facility] Comment on above: Performed By: #### C MP #### [facility] [address] [place] [address] Dr. Jessie Lomax Neutrophils/100 WBC (Bld) 70.8 % Normal 43.0-75.0 [facility] Comment on above: Performed By: #### C MP #### [facility] [address] [place] [address] Dr. Jessie Lomax Platelet mean volume (Bld) [Entitic vol] 9.5 fL Normal 9.5-13.5 [facility] Comment on above: Performed By: #### C MP #### [facility] [address] [place] [address] Dr. Jessie Lomax PLT 308 103/ul Normal 150-450 [facility] Comment on above: Performed By: #### C MP #### [facility] [address] [place] [address] Dr. Jessie Lomax RBC 5.08 106/ul Normal 4.70-6.10 [facility] Comment on above: Performed By: #### C MP #### [facility] [address] [place] [address] Dr. Jessie Lomax WBC 9.7 103/ul Normal 4.0-11.0 [facility] Comment on above: Performed By: #### C MP #### [facility] [address] [place] [address] Dr. Jessie Lomax CULTURE BLOODon 12-14-2022 Microscopic examination of blood, culture Culture Observations: NO GROWTH AT 5 DAYS. Normal [facility] Comment on above: Performed By: #### B LDCX2 #### [facility] [address] [address] [address] Jessie Lomax Microscopic examination of blood, culture Culture Observations: NO GROWTH AT 5 DAYS. Normal [facility] Comment on above: Performed By: #### B LDCX1 #### [facility] [address] [address] [address] Jessie Lomax [facility] SARS-CoV-2 (COVID-19) RNA YOLANDA+probe Ql (Unsp spec) Not detected Normal NOT DETECTED [facility] Comment on above: Result Comment: When [...] for this test is supported by the [place] of Health and Human Service's declaration that [...] used). Performed By: #### B LDCX1 #### [facility] [address] [place] [address] Dr. Jessie Lomax D-DIMERon 06-30-2022 D-DIMER 0.26 mg/L FEU Normal <=0.59 [facility] Comment on above: Performed By: #### C BC #### [facility] [address] [place] [address] Dr. Jessie Lomax D-DIMER COMMENTS SEE BELOW Normal [facility] Comment on above: Result Comment: Incr [...] hospitalization. Performed By: #### C BC #### [facility] [address] [place] [address] Dr. Jessie Lomax LACTATE/LACTIC ACIDon 2021 Lactate [Moles/Vol] 1.7 mmol/L Normal 0.4-1.9 [facility] Comment on above: Performed By: #### B LDCX1 #### [facility] [address] [place] [address] Dr. Jessie Lomax PH VENOUS BLOODon 06-30-2022 PCO2 VENOUS 54.1 mmHg Critically high 40.0-52.0 [facility] Comment on above: Performed By: #### B LDCX1 #### [facility] [address] [place] [address] Dr. Jessie Lomax pH VENOUS 7.323 Critically low 7.330-7.430 [facility] Comment on above: Performed By: #### B LDCX1 #### [facility] [address] [place] [address] Dr. Jessie Lomax PROF 14(COMP METB)on 022 Albumin [Mass/Vol] 3.9 g/dL Normal 3.4-5.0 [facility] Comment on above: Performed By: #### T TYLER #### [facility] [address] [place] [address] Dr. Jessie Lomax Albumin/Globulin [Mass ratio] 1.1 {ratio} Normal [facility] Comment on above: Performed By: #### T TYLER #### [facility] [address] [place] [address] Dr. Jessie Lomax ALP [Catalytic activity/Vol] 96 U/L Normal 46-116 [facility] Comment on above: Performed By: #### T TYLER #### [facility] [address] [address] [address] Jessie Lomax ALT [Catalytic activity/Vol] 19 U/L Normal 16-63 [facility] Comment on above: Performed By: #### T TYLER #### [facility] [address] [address] [address] Jessie Lomax Anion gap [Moles/Vol] 4.5 mmol/L Normal [facility] Comment on above: Performed By: #### T TYLER #### [facility] [address] [address] [address] Jessie Lomax AST [Catalytic activity/Vol] 13 U/L Critically low 15-37 [facility] Comment on above: Performed By: #### T TYLER #### [facility] [address] [address] [address] Jessie Lomax Bilirubin [Mass/Vol] 0.4 mg/dL Normal 0.2-1.0 [facility] Comment on above: Performed By: #### T TYLER #### [facility] [address] [address] [address] Jessie Lomax Calcium [Mass/Vol] 9.2 mg/dL Normal 8.5-10.1 [facility] Comment on above: Performed By: #### T TYLER #### [facility] [address] [address] [address] Jessie Lomax Chloride [Moles/Vol] 103 mmol/L Normal 98-107 [facility] Comment on above: Performed By: #### T TYLER #### [facility] [address] [address] [address] Jessie Lomax CO2 [Moles/Vol] 26.3 mmol/L Normal 21.0-32.0 [facility] Comment on above: Performed By: #### T TYLER #### [facility] [address] [address] [address] Jessie Lomax Creatinine [Mass/Vol] 1.06 mg/dL Normal 0.70-1.30 [facility] Comment on above: Performed By: #### T TYLER #### [facility] [address] [address] [address] Jessie Lomax EGFR-AF YEMENI >60 Normal >=60 [facility] Comment on above: Performed By: #### T TYLER #### [facility] [address] [address] [address] Jessie Lomax EGFR-NON AF YEMENI >60 Normal >=60 [facility] Comment on above: Performed By: #### T TYLER #### [facility] [address] [address] [address] Jessie Lomax Globulin (S) [Mass/Vol] 3.5 g/dL Normal [facility] Comment on above: Performed By: #### T TYLER #### [facility] [address] [address] [address] Jessie Lomax Glucose [Mass/Vol] 221 mg/dL Critically high 74-106 [facility] Comment on above: Performed By: #### T TYLER #### [facility] [address] [address] [address] Jessie Lomax Potassium [Moles/Vol] 4.6 mmol/L Normal 3.5-5.1 [facility] Comment on above: Performed By: #### T TYLER #### [facility] [address] [address] [address] Jessie Lomax Protein [Mass/Vol] 7.4 g/dL Normal 6.4-8.2 [facility] Comment on above: Performed By: #### T TYLER #### [facility] [address] [address] [address] Jessie Lomax Sodium [Moles/Vol] 138 mmol/L Normal 136-145 [facility] Comment on above: Performed By: #### T TYLER #### [facility] [address] [address] [address] Jessie Lomax Urea nitrogen [Mass/Vol] 23.0 mg/dL Critically high 7.0-18.0 [facility] Comment on above: Performed By: #### T TYLER #### [facility] [address] [place] [address] Dr. Jessie Lomax Urea nitrogen/Creatinine [Mass ratio] 20.2 mg/mg Normal [facility] Comment on above: Performed By: #### T TYLER #### [facility] [address] [place] [address] Dr. Jessie Lomax PROTIMEon 06-30-2022 INR Coag (PPP) [Relative time] 0.93 {INR} Normal [facility] Comment on above: Performed By: #### A CETON #### [facility] [address] [place] [address] Dr. Jessie Lomax INR GUIDELINES SEE BELOW Normal [facility] Comment on above: Result Comment: VANESSA RED INR: 2.0 - 3.0 CONDITIONS NOT LISTED BELOW 2.5 - 3.5 FOR PROSTHETIC HEART VALVE REPLACEMENT 2.5 - 3.5 RECURRENT THROMBOSIS Performed By: #### A CETON #### [facility] [address] [place] [address] Dr. Jessie Lomax PT Coag (PPP) [Time] 10.1 s Normal 9.0-11.6 [facility] Comment on above: Performed By: #### A CETON #### [facility] [address] [place] [address] Dr. Jessie Lomax PTTon 06-30-2022 aPTT Coag (Bld) [Time] 25.1 s Normal 22.3-36.2 [facility] Comment on above: Performed By: #### B [id number] #### [facility] [address] [place] [address] Dr. Jessie Lomax TROPONIN, HIGH SENSITIVITYon 06-30-2022 HSTROP 11.4 pg/mL Normal 4.0-76.1 [facility] Comment on above: Result Comment: CUT- OFF POINTS HAVE BEEN ESTABLISHED BASED ON THE FOURTH UNIVERSAL DEFINITIONS OF MYOCARDIAL INFARCTION. THE UPPER REFERENCE LIMIT (URL) OF TROPONIN, DEFINED THE 99TH PERCENTILE OF cTnI DISTRIBUTION IN A REFERENCE POPULATION, HAS BEEN CONFIRMED THE DECISION THRESHOLD FOR PR DIAGNOSIS. Performed By: #### T TYLER #### [facility] [address] [place] [address] Dr. Jessie Lomax XR CHEST 1 Von [...] by: SOLA SHELL Date: 2022-06-30 21:00 Normal [facility] BNPon 05-02-2022 Natriuretic peptide B (Bld) [Mass/Vol] 90.0 pg/mL Normal <=900.0 [facility] Comment on above: Performed By: #### B [id number] #### [facility] [address] [place] [address] Dr. Jessie Lomax CARDIAC JUSTINE ADMITon 022 CK [Catalytic activity/Vol] 84 U/L Normal 39-308 [facility] Comment on above: Performed By: #### B LDCX1 #### [facility] [address] [place] [address] Dr. Jessie Lomax CK.MB [Mass/Vol] 3.74 ng/mL Critically high <=3.60 [facility] Comment on above: Performed By: #### B LDCX1 #### [facility] [address] [place] [address] Dr. Jessie Lomax HSTROP 14.1 pg/mL Normal 4.0-76.1 [facility] Comment on above: Result Comment: CUT- OFF POINTS HAVE BEEN ESTABLISHED BASED ON THE FOURTH UNIVERSAL DEFINITIONS OF MYOCARDIAL INFARCTION. THE UPPER REFERENCE LIMIT (URL) OF TROPONIN, DEFINED THE 99TH PERCENTILE OF cTnI DISTRIBUTION IN A REFERENCE POPULATION, HAS BEEN CONFIRMED THE DECISION THRESHOLD FOR PR DIAGNOSIS. Performed By: #### B LDCX1 #### [facility] [address] [place] [address] Dr. Jessie Lomax HERLINDA 55 ng/mL Normal 16-96 [facility] Comment on above: Performed By: #### B LDCX1 #### [facility] [address] [address] [address] Jessie Lomax CBC AUTO DIFFon 05-02-2022 BASO # 0.1 103/ul Normal 0.0-0.1 [facility] Comment on above: Performed By: #### C BC #### [facility] [address] [address] [address] Jessie Lomax Basophils/100 WBC (Bld) 0.5 % Normal 0.2-2.0 [facility] Comment on above: Performed By: #### C BC #### [facility] [address] [address] [address] Jessie Lomax EO # 0.0 103/ul Normal 0.0-0.7 [facility] Comment on above: Performed By: #### C BC #### [facility] [address] [place] [address] Dr. Jessie Lomax Eosinophils/100 WBC (Bld) 0.3 % Critically low 0.9-7.0 [facility] Comment on above: Performed By: #### C BC #### [facility] [address] [place] [address] Dr. Jsesie Lomax Erythrocyte distribution width (RBC) [Ratio] 13.6 % Normal 11.0-15.0 [facility] Comment on above: Performed By: #### C BC #### [facility] [address] [place] [address] Dr. Jessie Lomax Hematocrit (Bld) [Volume fraction] 46.1 % Normal 42.0-54.0 [facility] Comment on above: Performed By: #### C BC #### [facility] [address] [place] [address] Dr. Jessie Lomax Hemoglobin (Bld) [Mass/Vol] 15.6 g/dL Normal 14.0-18.0 [facility] Comment on above: Performed By: #### C BC #### [facility] [address] [place] [address] Dr. Jessie Lomax IG # 0.07 10e3/ul Critically high 0.00-0.03 [facility] Comment on above: Performed By: #### C BC #### [facility] [address] [place] [address] Dr. Jessie Lomax IG % 0.6 % Critically high 0.0-0.5 [facility] Comment on above: Performed By: #### C BC #### [facility] [address] [place] [address] Dr. Jessie Lomax LYMPH # 2.0 103/ul Normal 1.2-3.8 [facility] Comment on above: Performed By: #### C BC #### [facility] [address] [place] [address] Dr. Jessie Lomax Lymphocytes/100 WBC (Bld) 16.0 % Critically low 20.5-60.0 [facility] Comment on above: Performed By: #### C BC #### [facility] [address] [place] [address] Dr. Jessie Lomax MANUAL DIFF REQ NO Normal [facility] Comment on above: Performed By: #### C BC #### [facility] [address] [place] [address] Dr. Jessie Lomax MCH (RBC) [Entitic mass] 31.7 pg Normal 25.9-34.0 [facility] Comment on above: Performed By: #### C BC #### [facility] [address] [place] [address] Dr. Jessie Lomax MCHC (RBC) [Mass/Vol] 33.8 g/dL Normal 29.9-35.2 [facility] Comment on above: Performed By: #### C BC #### [facility] [address] [place] [address] Dr. Jessie Lomax MCV (RBC) [Entitic vol] 93.7 fL Normal 80.0-94.0 [facility] Comment on above: Performed By: #### C BC #### [facility] [address] [place] [address] Dr. Jessie Lomax MONO # 0.8 103/ul Normal 0.3-0.8 [facility] Comment on above: Performed By: #### C BC #### [facility] [address] [address] [address] Jessie Lomax Monocytes/100 WBC (Bld) 6.2 % Normal 1.7-12.0 [facility] Comment on above: Performed By: #### C BC #### [facility] [address] [place] [address] Dr. Jessie Lomax NEUT # 9.5 103/ul Critically high 1.4-6.5 [facility] Comment on above: Performed By: #### C BC #### [facility] [address] [place] [address] Dr. Jessie Lomax Neutrophils/100 WBC (Bld) 76.4 % Critically high 43.0-75.0 [facility] Comment on above: Performed By: #### C BC #### [facility] [address] [place] [address] Dr. Jessie Lomax Platelet mean volume (Bld) [Entitic vol] 9.6 fL Normal 9.5-13.5 [facility] Comment on above: Performed By: #### C BC #### [facility] [address] [place] [address] Dr. Jessie Lomax PLT 338 103/ul Normal 150-450 [facility] Comment on above: Performed By: #### C BC #### [facility] [address] [place] [address] Dr. Jessie Lomax RBC 4.92 106/ul Normal 4.70-6.10 [facility] Comment on above: Performed By: #### C BC #### [facility] [address] [place] [address] Dr. Jessie Lomax WBC 12.4 103/ul Critically high 4.0-11.0 [facility] Comment on above: Performed By: #### C BC #### [facility] [address] [place] [address] Dr. Jessie Lomax Covid-19 PCR ([facility])on 04-17 SARS-CoV-2 (COVID-19) RNA YOLANDA+probe Ql (Unsp spec) Not detected Normal NOT DETECTED [facility] Comment on above: Result Comment: When [...] for this test is supported by the [employer] [employer] of Health and Human Service's declaration that [...] used). Performed By: #### C MP #### [facility] [address] [place] [address] Dr. Jessie Lomax PROF 14(COMP METB)on 022 Albumin [Mass/Vol] 3.5 g/dL Normal 3.4-5.0 [facility] Comment on above: Performed By: #### B LDCX1 #### [facility] [address] [place] [address] Dr. Jessie Lomax Albumin/Globulin [Mass ratio] 1.0 {ratio} Normal [facility] Comment on above: Performed By: #### B LDCX1 #### [facility] [address] [place] [address] Dr. Jessie Lomax ALP [Catalytic activity/Vol] 104 U/L Normal 46-116 [facility] Comment on above: Performed By: #### B LDCX1 #### [facility] [address] [place] [address] Dr. Jessie Lomax ALT [Catalytic activity/Vol] 21 U/L Normal 16-63 [facility] Comment on above: Performed By: #### B LDCX1 #### [facility] [address] [place] [address] Dr. Jessie Lomax Anion gap [Moles/Vol] 11.7 mmol/L Normal [facility] Comment on above: Performed By: #### B LDCX1 #### [facility] [address] [address] [address] Jessie Lomax AST [Catalytic activity/Vol] U/L Critically low 15-37 [facility] Comment on above: Performed By: #### B LDCX1 #### [facility] [address] [address] [address] Jessie Lomax Bilirubin [Mass/Vol] 0.2 mg/dL Normal 0.2-1.0 [facility] Comment on above: Performed By: #### B LDCX1 #### [facility] [address] [address] [address] Jessie Lomax Calcium [Mass/Vol] 8.9 mg/dL Normal 8.5-10.1 [facility] Comment on above: Performed By: #### B LDCX1 #### [facility] [address] [address] [address] Jessie Lomax Chloride [Moles/Vol] 99 mmol/L Normal 98-107 [facility] Comment on above: Performed By: #### B LDCX1 #### [facility] [address] [address] [address] Jessie Lomax CO2 [Moles/Vol] 30.4 mmol/L Normal 21.0-32.0 [facility] Comment on above: Performed By: #### B LDCX1 #### [facility] [address] [address] [address] Jessie Lomax Creatinine [Mass/Vol] 1.29 mg/dL Normal 0.70-1.30 [facility] Comment on above: Performed By: #### B LDCX1 #### [facility] [address] [address] [address] Jessie Lomax EGFR-AF YEMENI >60 Normal >=60 [facility] Comment on above: Performed By: #### B LDCX1 #### [facility] [address] [address] [address] Jessie Lomax EGFR-NON AF YEMENI 56 mL/min/1.73m2 Critically low >=60 [facility] Comment on above: Performed By: #### B LDCX1 #### [facility] [address] [address] [address] Jessie Lomax Globulin (S) [Mass/Vol] 3.4 g/dL Normal [facility] Comment on above: Performed By: #### B LDCX1 #### [facility] [address] [address] [address] Jessie Lomax Glucose [Mass/Vol] 310 mg/dL Critically high 74-106 [facility] Comment on above: Performed By: #### B LDCX1 #### [facility] [address] [address] [address] Jessie Lomax Potassium [Moles/Vol] 4.1 mmol/L Normal 3.5-5.1 [facility] Comment on above: Performed By: #### B LDCX1 #### [facility] [address] [place] [address] Dr. Jessie Lomax Protein [Mass/Vol] 6.9 g/dL Normal 6.4-8.2 [facility] Comment on above: Performed By: #### B LDCX1 #### [facility] [address] [address] [address] Jessie Lomax Sodium [Moles/Vol] 137 mmol/L Normal 136-145 [facility] Comment on above: Performed By: #### B LDCX1 #### [facility] [address] [address] [address] Jessie Lomax Urea nitrogen [Mass/Vol] 16.0 mg/dL Normal 7.0-18.0 [facility] Comment on above: Performed By: #### B LDCX1 #### [facility] [address] [address] [address] Jessie Lomax Urea nitrogen/Creatinine [Mass ratio] 12.4 mg/mg Normal [facility] Comment on above: Performed By: #### B LDCX1 #### [facility] [address] [address] [address] Jessie Lomax PROTIMEon 05-02-2022 INR Coag (PPP) [Relative time] {INR} Normal [facility] Comment on above: Performed By: #### T TYLER #### [facility] [address] [place] [address] Dr. Jessie Lomax INR GUIDELINES SEE BELOW Normal [facility] Comment on above: Result Comment: VANESSA RED INR: 2.0 - 3.0 CONDITIONS NOT LISTED BELOW 2.5 - 3.5 FOR PROSTHETIC HEART VALVE REPLACEMENT 2.5 - 3.5 RECURRENT THROMBOSIS Performed By: #### T TYLER #### [facility] [address] [address] [address] Jessie Lomax PT Coag (PPP) [Time] 9.8 s Normal 9.0-11.6 [facility] Comment on above: Performed By: #### T TYLER #### [facility] [address] [place] [address] Dr. Jessie Lomax PTTon 05-02-2022 aPTT Coag (Bld) [Time] 23.0 s Normal 22.3-36.2 [facility] Comment on above: Performed By: #### T TYLER #### [facility] [address] [place] [address] Dr. Jessie Lomax XR CHEST 1 Von [...] GERARD ESPANA Date: 2022-05-02 08:55 Normal [facility] Covid-19 PCR ([facility])on 04-17 SARS-CoV-2 (COVID-19) RNA YOLANDA+probe Ql (Unsp spec) Not detected Normal NOT DETECTED [facility] Comment on above: Result Comment: This test is not yet approved or cleared by the [place] FDA. When there are no FDA-approved or cleared tests available, and other criteria are met, FDA can make tests available under an emergency access mechanism called an Emergency Use Authorization (EUA). The EUA for this test is supported by the [place] of Health and Human Service's (HHS's) declaration [...] SARS-CoV-2. Performed By: #### A CETON #### [facility] [address] [place] [address] Dr. Jessie Lomax CBC AUTO DIFFon 03-19-2022 BASO # 0.0 103/ul Normal 0.0-0.1 [facility] Comment on above: Performed By: #### C BC #### [facility] [address] [place] [address] Dr. Jessie Lomax Basophils/100 WBC (Bld) 0.4 % Normal 0.2-2.0 [facility] Comment on above: Performed By: #### C BC #### [facility] [address] [place] [address] Dr. Jessie Lomax EO # 0.0 103/ul Normal 0.0-0.7 [facility] Comment on above: Performed By: #### C BC #### [facility] [address] [place] [address] Dr. Jessie Lomax Eosinophils/100 WBC (Bld) 0.1 % Critically low 0.9-7.0 [facility] Comment on above: Performed By: #### C BC #### [facility] [address] [place] [address] Dr. Jessie Lomax Erythrocyte distribution width (RBC) [Ratio] 13.6 % Normal 11.0-15.0 [facility] Comment on above: Performed By: #### C BC #### [facility] [address] [place] [address] Dr. Jessie Lomax Hematocrit (Bld) [Volume fraction] 47.4 % Normal 42.0-54.0 [facility] Comment on above: Performed By: #### C BC #### [facility] [address] [place] [address] Dr. Jessie Lomax Hemoglobin (Bld) [Mass/Vol] 16.0 g/dL Normal 14.0-18.0 [facility] Comment on above: Performed By: #### C BC #### [facility] [address] [place] [address] Dr. Jessie Lomax IG # 0.03 10e3/ul Normal 0.00-0.03 [facility] Comment on above: Performed By: #### C BC #### [facility] [address] [place] [address] Dr. Jessie Lomax IG % 0.3 % Normal 0.0-0.5 [facility] Comment on above: Performed By: #### C BC #### [facility] [address] [place] [address] Dr. Jessie Lomax LYMPH # 0.5 103/ul Critically low 1.2-3.8 [facility] Comment on above: Performed By: #### C BC #### [facility] [address] [place] [address] Dr. Jessie Lomax Lymphocytes/100 WBC (Bld) 5.4 % Critically low 20.5-60.0 [facility] Comment on above: Performed By: #### C BC #### [facility] [address] [place] [address] Dr. Jessie Lomax MANUAL DIFF REQ NO Normal [facility] Comment on above: Performed By: #### C BC #### [facility] [address] [place] [address] Dr. Jessie Lomax MCH (RBC) [Entitic mass] 31.7 pg Normal 25.9-34.0 [facility] Comment on above: Performed By: #### C BC #### [facility] [address] [place] [address] Dr. Jessie Lomax MCHC (RBC) [Mass/Vol] 33.8 g/dL Normal 29.9-35.2 [facility] Comment on above: Performed By: #### C BC #### [facility] [address] [place] [address] Dr. Jessie Lomax MCV (RBC) [Entitic vol] 93.9 fL Normal 80.0-94.0 [facility] Comment on above: Performed By: #### C BC #### [facility] [address] [place] [address] Dr. Jessie Lomax MONO # 0.2 103/ul Critically low 0.3-0.8 [facility] Comment on above: Performed By: #### C BC #### [facility] [address] [place] [address] Dr. Jessie Lomax Monocytes/100 WBC (Bld) 2.4 % Normal 1.7-12.0 [facility] Comment on above: Performed By: #### C BC #### [facility] [address] [place] [address] Dr. Jessie Lomax NEUT # 9.1 103/ul Critically high 1.4-6.5 [facility] Comment on above: Performed By: #### C BC #### [facility] [address] [place] [address] Dr. Jessie Lomax Neutrophils/100 WBC (Bld) 91.4 % Critically high 43.0-75.0 [facility] Comment on above: Performed By: #### C BC #### [facility] [address] [place] [address] Dr. Jessie Lomax Platelet mean volume (Bld) [Entitic vol] 9.5 fL Normal 9.5-13.5 [facility] Comment on above: Performed By: #### C BC #### [facility] [address] [place] [address] Dr. Jessie Lomax PLT 303 103/ul Normal 150-450 [facility] Comment on above: Performed By: #### C BC #### [facility] [address] [place] [address] Dr. Jessie Lomax RBC 5.05 106/ul Normal 4.70-6.10 [facility] Comment on above: Performed By: #### C BC #### [facility] [address] [place] [address] Dr. Jessie Lomax WBC 10.0 103/ul Normal 4.0-11.0 [facility] Comment on above: Performed By: #### C BC #### [facility] [address] [place] [address] Dr. Jessie Lomax Covid-19 PCR ([facility])on SARS-CoV-2 (COVID-19) RNA YOLANDA+probe Ql (Unsp spec) Not detected Normal NOT DETECTED [facility] Comment on above: Result Comment: When [...] for this test is supported by the [employer] of Health and Human Service's declaration that [...] used). Performed By: #### B LDCX1 #### [facility] [address] [place] [address] Dr. Jessie Lomax PROF 14(COMP METB)on 022 Albumin [Mass/Vol] 3.9 g/dL Normal 3.4-5.0 [facility] Comment on above: Performed By: #### C BC #### [facility] [address] [place] [address] Dr. Jessie Lomax Albumin/Globulin [Mass ratio] 1.1 {ratio} Normal [facility] Comment on above: Performed By: #### C BC #### [facility] [address] [address] [address] Jessie Lomax ALP [Catalytic activity/Vol] 81 U/L Normal 46-116 [facility] Comment on above: Performed By: #### C BC #### [facility] [address] [address] [address] Jessie Lomax ALT [Catalytic activity/Vol] 26 U/L Normal 16-63 [facility] Comment on above: Performed By: #### C BC #### [facility] [address] [address] [address] Jessie Lomax Anion gap [Moles/Vol] 14.5 mmol/L Normal [facility] Comment on above: Performed By: #### C BC #### [facility] [address] [place] [address] Dr. Jessie Lomax AST [Catalytic activity/Vol] 7 U/L Critically low 15-37 [facility] Comment on above: Performed By: #### C BC #### [facility] [address] [place] [address] Dr. Jessie Lomax Bilirubin [Mass/Vol] 0.3 mg/dL Normal 0.2-1.0 [facility] Comment on above: Performed By: #### C BC #### [facility] [address] [place] [address] Dr. Jessie Lomax Calcium [Mass/Vol] 9.2 mg/dL Normal 8.5-10.1 [facility] Comment on above: Performed By: #### C BC #### [facility] [address] [place] [address] Dr. Jessie Lomax Chloride [Moles/Vol] 101 mmol/L Normal 98-107 [facility] Comment on above: Performed By: #### C BC #### [facility] [address] [address] [address] Jessie Lomax CO2 [Moles/Vol] 26.1 mmol/L Normal 21.0-32.0 [facility] Comment on above: Performed By: #### C BC #### [facility] [address] [place] [address] Dr. Jessie Lomax Creatinine [Mass/Vol] 1.50 mg/dL Critically high 0.70-1.30 [facility] Comment on above: Performed By: #### C BC #### [facility] [address] [address] [address] Jessie Lomax EGFR-AF YEMENI 57 mL/min/1.73m2 Critically low >=60 [facility] Comment on above: Performed By: #### C BC #### [facility] [address] [address] [address] Jessie Lomax EGFR-NON AF YEMENI 47 mL/min/1.73m2 Critically low >=60 [facility] Comment on above: Performed By: #### C BC #### [facility] [address] [place] [address] Dr. Jessie Lomax Globulin (S) [Mass/Vol] 3.4 g/dL Normal [facility] Comment on above: Performed By: #### C BC #### [facility] [address] [place] [address] Dr. Jessie Lomax Glucose [Mass/Vol] 264 mg/dL Critically high 74-106 [facility] Comment on above: Performed By: #### C BC #### [facility] [address] [place] [address] Dr. Jessie Lomax Potassium [Moles/Vol] 4.6 mmol/L Normal 3.5-5.1 [facility] Comment on above: Performed By: #### C BC #### [facility] [address] [address] [address] Jessie Lomax Protein [Mass/Vol] 7.3 g/dL Normal 6.4-8.2 [facility] Comment on above: Performed By: #### C BC #### [facility] [address] [place] [address] Dr. Jessie Lomax Sodium [Moles/Vol] 137 mmol/L Normal 136-145 [facility] Comment on above: Performed By: #### C BC #### [facility] [address] [place] [address] Dr. Jessie Lomax Urea nitrogen [Mass/Vol] 20.0 mg/dL Critically high 7.0-18.0 [facility] Comment on above: Performed By: #### C BC #### [facility] [address] [place], [place] [address] Dr. Jessie Lomax Urea nitrogen/Creatinine [Mass ratio] 13.3 mg/mg Normal [facility] Comment on above: Performed By: #### C BC #### [facility] [address] [place], [place] [address] Dr. Jessie Lomax XR CHEST 1 Von [...] GERARD WOLFF Date: 2022-03-19 00:11 Normal [facility] Cardiovascular Lab Reporton 12-29-2018 Cardiovascular Lab Report [facility] Patient Name: [facility] MR #: [id number] Physician: Calli Devlin, Department of M.D. Medicine Service Date: 12/28/2018 Division of Birthdate: 1960 Cardiology Room #: Adult Cardiovascular Services [place] [id number] Cardiovascular Laboratory Report FINAL IMPRESSIONS: 1. Nonobstructive [...] as an outpatient. 6. Follow up with ma in the [facility] in the next 2-4 weeks. 7. Follow up with Dr. Cowart as scheduled. PROCEDURES: Ultrasound-guided access to the right common femoral vein and artery, right heart catheterization, bilateral selective coronary angiography, left heart catheterization, left ventriculography, limited femoral angiogram, placement of a 6-Bahraini MynxGrip closure device. METHODS: After risks, benefits, and alternatives were explained, written informed consent was obtained. The patient was prepped and draped in usual sterile fashion over the right groin. Using 1% lidocaine solution, local infiltration anesthesia was achieved. Using a modified Seldinger technique and under ultrasound guidance access to the right common femoral vein and artery was obtained and 6-Bahraini 11 cm sheath placed in each. Limited [...] the procedure. All catheters were removed. A 6-Bahraini MynxGrip closure device was deployed per protocol [...] Devlin M.D. Date Trans: 12/29/2018 04:14 Marek/rosetta [id number] cc: Calli Devlin M.D. [address] [place] [address] ANNA NASH [place] [facility] Vital Signs Date Time Vital Sign Value Performing Clinician Facility 10-05-2024 13:44-0400 Heart rate 104 /min Pranay Bai MD Work Phone: [facility] 10-05-2024 13:44-0400 Respiratory rate 22 /min Pranay Bai MD Work Phone: [facility] 10-05-2024 12:00-0400 Body temperature 97.3 [degF] Pranay Bai MD Work Phone: [facility] 10-05-2024 12:00-0400 Diastolic blood pressure 79 mm[Hg] Pranay Bai MD Work Phone: [facility] 10-05-2024 12:00-0400 Inhaled oxygen flow rate 3 L/min Pranay Bai MD Work Phone: [facility] 10-05-2024 12:00-0400 SaO2% (BldA) [Mass fraction] 96 % Pranay Bai MD Work Phone: [facility] 10-05-2024 12:00-0400 Systolic blood pressure 126 mm[Hg] Pranay Bai MD Work Phone: [facility] 10-05-2024 04:57-0400 Body weight 106.6 kg Pranay Bai MD Work Phone: [facility] 10-04-2024 17:07-0400 Body height 175.26 cm Pranay Bai MD Work Phone: [facility] 10-04-2024 14:00-0400 Diastolic blood pressure 81 mm[Hg] Pranay Bai MD Work Phone: [facility] 10-04-2024 14:00-0400 Heart rate 106 /min Pranay Bai MD Work Phone: [facility] 10-04-2024 14:00-0400 Inhaled oxygen flow rate 4 L/min Pranay Bai MD Work Phone: [facility] 10-04-2024 14:00-0400 Respiratory rate 30 /min Pranay Bai MD Work Phone: [facility] 10-04-2024 14:00-0400 SaO2% (BldA) [Mass fraction] 96 % Pranay Bai MD Work Phone: [facility] 10-04-2024 14:00-0400 Systolic blood pressure 148 mm[Hg] Pranay Bai MD Work Phone: [facility] 10-03-2024 22:30-0400 Body height 175.26 cm Pranay Bai MD Work Phone: [facility] 10-03-2024 22:30-0400 Body temperature 97.9 [degF] Pranay Bai MD Work Phone: [facility] 10-03-2024 22:30-0400 Body weight 109.5 kg Pranay Bai MD Work Phone: [facility] 11-11-2023 14:15-0400 Body height 175.26 cm [facility] 11-11-2023 14:15-0400 Body mass index (BMI) [Ratio] 37 kg/m2 [facility] 11-11-2023 14:15-0400 Body weight 113.85 kg [facility] 11-11-2023 14:15-0400 Diastolic blood pressure 102 mm[Hg] [facility] 11-11-2023 14:15-0400 Heart rate 96 /min [facility] 11-11-2023 14:15-0400 SaO2% (BldA) [Mass fraction] 92 % [facility] 11-11-2023 14:15-0400 Systolic blood pressure 149 mm[Hg] [facility] 09-15-2023 11:02-0500 Body height 175.26 cm [facility] 09-15-2023 11:02-0500 Body mass index (BMI) [Ratio] 38.2 kg/m2 [facility] 09-15-2023 11:02-0500 Body weight 117.59 kg [facility] 09-15-2023 11:02-0500 Diastolic blood pressure 87 mm[Hg] [facility] 09-15-2023 11:02-0500 Heart rate 113 /min [facility] 09-15-2023 11:02-0500 SaO2% (BldA) [Mass fraction] 97 % [facility] 09-15-2023 11:02-0500 Systolic blood pressure 158 mm[Hg] [facility] 06-27-2023 11:00-0500 Body height 175.26 cm Bryon Cowart Other [employer] Other 06-27-2023 11:00-0500 Body mass index (BMI) [Ratio] 37.8 kg/m2 Bryon Cowart Other [employer] Other 06-27-2023 11:00-0500 Body weight 116.12 kg Bryon Cowart Other [employer] Other 06-27-2023 11:00-0500 Diastolic blood pressure 88 mm[Hg] Bryon Cowart Other [employer] Other 06-27-2023 11:00-0500 SaO2% (BldA) [Mass fraction] 92 % Bryon Cowart Other [employer] Other 06-27-2023 11:00-0500 Systolic blood pressure 134 mm[Hg] Bryon Cowart Other [employer] Other 03-03-2023 15:00-0400 Body height 175.26 cm Bryon Cowart Other [employer] Other 03-03-2023 15:00-0400 Body mass index (BMI) [Ratio] 38.69 kg/m2 Bryon Cowart Other [employer] Other 03-03-2023 15:00-0400 Body weight 118.84 kg Bryon Cowart Other [employer] Other 03-03-2023 15:00-0400 Diastolic blood pressure 82 mm[Hg] Bryon Cowart Other [employer] Other 03-03-2023 15:00-0400 Systolic blood pressure 157 mm[Hg] Bryon Cowart Other [employer] Other 12-30-2022 14:30-0400 Body height 175.26 cm Bryon Cowart Other [employer] Other 12-30-2022 14:30-0400 Body mass index (BMI) [Ratio] 39.57 kg/m2 Bryon Cowart Other [employer] Other 12-30-2022 14:30-0400 Body weight 121.56 kg Bryon Cowart Other [employer] Other 12-30-2022 14:30-0400 Diastolic blood pressure 85 mm[Hg] Bryon Cowart Other [employer] Other 12-30-2022 14:30-0400 SaO2% (BldA) [Mass fraction] 95 % Bryon Cowart Other [employer] Other 12-30-2022 14:30-0400 Systolic blood pressure 147 mm[Hg] Bryon Cowart Other [employer] Other 09-02-2022 14:00-0500 Body height 175.26 cm Bryon Cowart Other [employer] Other 09-02-2022 14:00-0500 Body mass index (BMI) [Ratio] 38.69 kg/m2 Bryon Cowart Other [employer] Other 09-02-2022 14:00-0500 Body weight 118.84 kg Bryon Cowart Other [employer] Other 09-02-2022 14:00-0500 Diastolic blood pressure 84 mm[Hg] Bryon Cowart Other [employer] Other 09-02-2022 14:00-0500 Respiratory rate 60 /min Bryon Cowart Other [employer] Other 09-02-2022 14:00-0500 SaO2% (BldA) [Mass fraction] 91 % Bryon Cowart Other [employer] Other 09-02-2022 14:00-0500 Systolic blood pressure 142 mm[Hg] Bryon Cowart Other [employer] Other Encounters Encounter Date Encounter Type Care Provider Facility Start: 02-13-2025 ambulatory Joo Nievesi ty:MELISSA Hardy Start: 02-06-2025 ambulatory Joo Nievesi ty:MELISSA Hardy Start: 01-24-2025 End: 01-24-2025 ambulatory [facility] Start: 11-28-2024 End: 11-28-2024 ambulatory Joo Reji YIP Facility:MELISSA Hardy Start: 11-28-2024 End: 11-28-2024 Patient encounter procedure Joo R YIP [facility] Start: 11-01-2024 ambulatory Joo YIP Facility :MELISSA Hardy Start: 10-25-2024 End: 10-25-2024 Lab Drop off SARAH A SHIKHA [facility] Start: 10-25-2024 End: 10-25-2024 ambulatory SYSTEM ADMIN SARAH A SHIKHA Facility:[facility] Start: 10-11-2024 End: 10-11-2024 ambulatory SYSTEM ADMIN SARAH A SHIKHA Facility:[facility] Jaz richey Start: 10-08-2024 End: 10-26-2024 ambulatory SYSTEM ADMIN ASRAH A SHIKHA Facility:[id number] Start: 10-04-2024 End: 10-05-2024 Evaluation and management of inpatient Pranay Bai MD Work Phone: [facility] [place] Work Phone: Start: 08-20-2024 Non-patient / Non-visit Pranay Bai MD Work Phone: [facility] Work Phone: Start: 06-21-2024 End: 06-21-2024 ambulatory SYSTEM ADMIN SARAH A SHIKHA Facility:[facility] Start: 06-19-2024 End: 06-19-2024 ambulatory SYSTEM ADMIN SARAH A SHIKHA Facility:[facility] Start: 06-04-2024 End: 06-04-2024 ambulatory SYSTEM ADMIN SARAH A SHIKHA Facility:[facility] Start: 05-22-2024 End: 05-22-2024 ambulatory SYSTEM ADMIN SARAH A SHIKHA Facility:[facility] Start: 05-08-2024 End: 05-08-2024 ambulatory SYSTEM ADMIN SARAH A SIHKHA Facility:[facility] Start: 04-30-2024 End: 05-14-2024 ambulatory SYSTEM ADMIN SARAH A SHIKHA Facility:[id number] Start: 04-24-2024 End: 04-24-2024 ambulatory SYSTEM ADMIN SARAH A SHIKHA Facility:[facility] Start: 01-24-2024 End: 01-24-2024 Lab Drop off SARAH A SHIKHA [facility] Start: 11-11-2023 End: 11-11-2023 ambulatory [facility] Work Phone: Start: 11-11-2023 End: 11-11-2023 Patient encounter procedure [facility] Work Phone: Start: 10-03-2023 Non-patient / Non-visit [facility] Work Phone: Start: 09-15-2023 End: 09-15-2023 Patient encounter procedure [facility] Work Phone: Start: 08-26-2023 End: 08-26-2023 ambulatory Bryon Sofya Other [employer] Other Start: 08-26-2023 Telephone encounter Bryon Cowart [facility] Start: 08-04-2023 End: 08-04-2023 ambulatory Bryon Cowart Other [employer] Other Start: 08-04-2023 Telephone encounter Bryon Cowart [facility] Start: 08-03-2023 End: 08-03-2023 ambulatory Bryon Cowart Other [employer] Other Start: 08-03-2023 Telephone encounter Bryon Cowart [facility] Start: 07-19-2023 End: 07-19-2023 ambulatory Bryon Sofya Other [employer] Other Start: 07-19-2023 Telephone encounter Bryon Cowart [facility] Start: 07-12-2023 End: 07-12-2023 ambulatory Bryon Sofya Other [employer] Other Start: 07-12-2023 Telephone encounter Bryon Cowart [facility] Start: 07-07-2023 End: 07-07-2023 ambulatory Bryon Sofya Other [employer] Other Start: 07-07-2023 Telephone encounter Bryon Cowart [facility] Start: 07-04-2023 End: 07-04-2023 ambulatory Bryon Cowart Other [employer] Other Start: 07-04-2023 Telephone encounter Bryon Cowart [facility] Start: 06-30-2023 End: 06-30-2023 ambulatory Bryon Cowart Other [employer] Other Start: 06-30-2023 Telephone encounter Bryon Cowart [facility] Start: 06-27-2023 End: 06-27-2023 ambulatory Bryon Cowart Other [employer] Other Start: 06-27-2023 Office outpatient vi sit 25 minutes Bryon Cowart [facility] Start: 06-27-2023 Telephone encounter Bryon Cowart [facility] Start: 06-24-2023 End: 06-24-2023 ambulatory Bryon Cowart Other [employer] Other Start: 06-24-2023 Telephone encounter Bryon Cowart [facility] Start: 06-13-2023 End: 06-13-2023 ambulatory Bryon Cowart Other [employer] Other Start: 06-13-2023 Telephone encounter Bryon Cowart [facility] Start: 06-03-2023 End: 06-03-2023 ambulatory Bryon Cowart Other [employer] Other Start: 06-03-2023 Telephone encounter Bryon Cowart [facility] Start: 05-31-2023 End: 05-31-2023 ambulatory Bryon Cowart Other [employer] Other Start: 05-31-2023 Telephone encounter Bryon Cowart [facility] Start: 05-09-2023 End: 05-09-2023 ambulatory Bryon Cowart Other [employer] Other Start: 05-09-2023 Telephone encounter Bryon Cowart [facility] Start: 04-25-2023 Telephone encounter Capo Meraz RN Pulmonary Medicine Comment on above: Closing Referral Start: 04-13-2023 End: 04-13-2023 ambulatory Bryon Cowart Other [employer] Other Start: 04-13-2023 Telephone encounter Bryon Cowart [facility] Start: 03-14-2023 End: 03-14-2023 ambulatory Bryon Cowart Other [employer] Other Start: 03-14-2023 Telephone encounter Bryon Cowart [facility] Start: 03-11-2023 End: 03-11-2023 ambulatory Bryon Cowart Other [employer] Other Start: 03-11-2023 Telephone encounter Bryon Cowart [facility] Start: 03-10-2023 Telephone encounter Capo Meraz RN Pulmonary Medicine Comment on above: Follow up on Lung Tr ansplant Referral Start: 03-08-2023 End: 03-08-2023 ambulatory Bryon Cowart Other [employer] Other Start: 03-08-2023 Telephone encounter Bryon Cowart [facility] Start: 03-03-2023 End: 03-03-2023 ambulatory Bryon Cowart Other [employer] Other Start: 03-03-2023 Office outpatient vi sit 15 minutes Bryon Cowart [facility] Start: 02-10-2023 End: 02-10-2023 ambulatory Bryon Cowart Other [employer] Other Start: 02-10-2023 Telephone encounter Bryon Cowart [facility] Start: 12-30-2022 End: 12-30-2022 ambulatory Bryon Cowart Other [employer] Other Start: 12-30-2022 Office outpatient vi sit 25 minutes Bryon Cowart [facility] Start: 12-30-2022 Telephone encounter Bryon Cowart [facility] Start: 12-22-2022 End: 12-22-2022 ambulatory Bryon Cowart Other [employer] Other Start: 12-22-2022 Telephone encounter Bryon Cowart [facility] Start: 11-12-2022 End: 11-12-2022 ambulatory Bryon Cowart Other [employer] Other Start: 11-12-2022 Telephone encounter Bryon Cowart [facility] Start: 10-12-2022 End: 10-12-2022 ambulatory Rubén Pina Other [employer] Other Start: 10-12-2022 Telephone encounter Rubén Pina [facility] Start: 10-05-2022 End: 10-05-2022 ambulatory Bryon Cowart Other [employer] Other Start: 10-05-2022 Telephone encounter Bryon Cowart [facility] Start: 10-03-2022 End: 10-04-[address] BRYON COWART Facility:[facility] Start: 09-27-2022 End: 09-27-2022 ambulatory Bryon Cowart Other [employer] Other Start: 09-27-2022 Telephone encounter Bryon Cowart [facility] Start: 09-15-2022 End: 09-15-2022 ambulatory Bryon Cowart Other [employer] Other Start: 09-15-2022 Telephone encounter Bryon Cowart [facility] Start: 09-02-2022 End: 09-02-2022 ambulatory Bryon Cowart Other [employer] Other Start: 09-02-2022 Office outpatient vi sit 15 minutes Bryon Cowart [facility] Start: 08-29-2022 End: 08-30-[address] EVERETTE MONTAGUE . Facility:[facility] Start: 08-20-2022 End: 08-20-2022 ambulatory Bryon Cowart Other [employer] Other Start: 08-20-2022 Telephone encounter Bryon Cowart [facility] Start: 08-17-2022 End: 08-17-2022 ambulatory SHAIKH Jose BANDA Facility:[facility] Start: 08-17-2022 ambulatory VANDA Moreno Facility :[facility] Start: 08-10-2022 End: 08-11-2022 ambulatory VANDA GONZALEZ . Facility:[facility] Start: 08-09-2022 End: 08-09-2022 ambulatory Bryon Cowart Other [employer] Other Start: 08-09-2022 Telephone encounter Bryon Cowart [facility] Start: 07-22-2022 End: 07-22-2022 ambulatory Bryon Cowart Other [facility] Other Start: 07-22-2022 Telephone encounter Bryon Cowart [facility] Start: 07-01-2022 End: 07-02-[address] BRYON [...] Update Start: 11-04-2021 Telephone encounter Molly trinidad DIRECTOR [employer]SYSTEM ADMIN Work Phone: Pulmonary Medicine Comment on above: Missed appointments Start: 11-03-2021 Orders Only Molly aguirre DIRECTOR [employer]SYSTEM ADMIN Work Phone: Pulmonary Medicine Comment on above: Chronic obstructive pulmonary disease, unspecified COPD type (HCC) (Primary Dx); Lung transplant candidate [id number] deficiency (HCC) (Primary Dx) Start: 12-28-2018 End: 12-29-2018 Patient encounter procedure CALLI DEVLIN Facility:[facility] Procedures Date Procedure Procedure Detail Performing Clinician Start: 10-04-2024 Respiratory Panel (PCR) Pranay Bai MD Work Phone: Start: 10-03-2024 Plain chest X-ray Darrius Bai MD Work Phone: Cardiac catheter (ph ysical object) SARAH SHIKHA Comment on above: 2022 Plan of Treatment Date Care Activity Detail Author Start: 02-06-2025 ambulatory Ambulatory Facility:[facility] Start: 10-13-2024 [facility] Start: 10-12-2024 [facility] Start: 10-11-2024 [facility] Start: 10-10-2024 [facility] Start: 10-09-2024 [facility] Start: 10-08-2024 [facility] Start: 10-07-2024 [facility] Start: 10-06-2024 [facility] Start: 10-05-2024 End: 10-05-2024 [facility] Start: 10-04-2024 Administration of prophylactic treatment [facility] Start: 10-04-2024 Respiratory Panel (PCR) Respiratory Panel (PCR) [facility] Start: 10-04-2024 [facility] Start: 10-04-2024 [facility] Start: 10-04-2024 [facility] Start[facility]-18[facility] Start: 03-24-2022 Hepatitis B surface antibody level LDL CHOLESTEROL [facility] Start: 03-18-2022 Influenza vaccination INFLUENZ A (Season Ended) [facility] Start: 11-04-2021 End: 01-04-2022 HEPATITIS A ANTIBODY, IGG HEPATITIS A ANTIBODY, IGG Lab Routine Chronic obstructive pulmonary disease, unspecified COPD type (HCC) Lung transplant candidate Expected: 11/04/2021, Expires: 01/04/2022 [facility] Work Phone: Comment on above: Expected: 11/04/2021 , Expires: 01/04/2022 Start: 11-03-2021 End: 11-03-2022 ARTERIAL BLOOD GASES ARTERIAL BLOOD GASES Lab Routine [id number] deficiency (HCC) Expected: 11/03/2021, Expires: 11/03/2022 [facility] Work Phone: Comment on above: Expected: 11/03/2021 , Expires: 11/03/2022 Start: 11-04-2014 PROSTATE CANCER SCREENING DISCUSSION PROSTATE CANCER SCREENING DISCUSSION [facility] Start: 11-04-2009 SHINGRIX VACCINE (1 of 2) SHINGRIX VACCINE (1 of 2) [facility] Start: 11-04-2004 COLOGUARD (FIT-DNA) COLOGUARD (FIT-D NA) [facility] Start: 11-04-2004 Colonoscopy COLONOSCOPY [facility] Start: 11-04-2004 COLORECTAL CANCER SCREENING COLORECTAL CANCER SCREENING [facility] Start: 11-04-[address] COLONOGRAPHY [facility] Start: 11-04-2004 FECAL OCCULT BLOOD FECAL OCCULT BLOO D [facility] Start: 11-04-2004 SIGMOIDOSCOPY SIGMOIDOSCOPY [facility] Start: 11-04-1989 Zoledronic acid therapy ALPHA- 1 ANTITRYPSIN DEFICIENCY SCREENING [facility] Start: 11-04-1978 ADULT PREVNAR-13 ADULT PREVNAR-13 [facility] Start: 11-04-1978 HEPATITIS A (1 of 2 - Risk 2-dose series) HEPATITIS A (1 of 2 - Risk 2-dose series) [facility] Start: 11-04-1978 Hepatitis A Vaccine (1 of 2 - Risk 2-dose series) Hepatitis A Vaccine (1 of 2 - Risk 2-dose series) [facility] Start: 11-04-1978 SHINGRIX VACCINE (1 of 2) SHINGRIX VACCINE (1 of 2) [facility] Start: 11-04-1978 TWO PNEUMOVAX 5 YEAR S APART PRIOR TO AGE 65 (#1) TWO PNEUMOVAX 5 YEARS APART PRIOR TO AGE 65 (#1) [facility] Start: 11-04-1978 Urine microalbumin profile [facility] Start: 11-04-1977 ANNUAL PCP TEAM SOLE ROUNDER SARAH DISEASE VISIT ANNUAL PCP TEAM CHRONIC DISEASE VISIT [facility] Start: 11-04-1977 BP CONTROLLED (<130/80) BP CONTROLLE D (<130/80) [facility] Start: 11-04-1969 3 comp foot exam completed DIABETIC FOOT EXAM [facility] Start: 11-04-1969 Hepatitis B screening URINE ALBUMIN:CREATININE RATIO [facility] Start: 11-04-1969 Hepatitis C antibody , confirmatory test DILATED RETINAL EXAM [facility] Start: 11-04-1965 PNEUMOCOCCAL (1 - PCV) PNEUMOCOCCAL (1 - PCV) [facility] Start: 11-04-1965 Pneumococcal vaccination Pneum ococcal Vaccine (1 - PCV) [facility] Start: 11-04-1964 COVID-19 VACCINE (1) COVID-19 VACCIN E (1) [facility] Start: 11-04-1964 Hemoglobin A1c/Hemoglobin.total in Blood HBA1C [facility] Start: 11-04-1960 HEPATITIS A (1 of 2 - Risk 2-dose series) HEPATITIS A (1 of 2 - Risk 2-dose series) [facility] Start: 05-06-1960 COVID-19 VACCINE (#1) COVID-19 VACCI NE (#1) [facility] Anion gap measurement [facility] Basophils [#/volume] in Blood by Automated count [facility] Basophils/100 leukoc ytes in Blood by Automated count [facility] Eosinophils/100 leukocytes in Blood by Automated count [facility] Erythrocyte distribu tion width [Ratio] by Automated count [facility] Erythrocytes [#/volu me] in Blood [facility] Hematocrit [Volume Fraction] of Blood [facility] Hemoglobin [Mass/vol ume] in Blood [facility] Leukocytes [#/volume ] corrected for nucleated erythrocytes in Blood by Automated coun [facility] Leukocytes [#/volume ] in Blood [facility] Lymphocytes [#/volum e] in Blood by Automated count [facility] Lymphocytes/100 leukocytes in Blood by Automated count [facility] MCH [Entitic mass] b y Automated count [facility] MCHC [Mass/volume] b y Automated count [facility] MCV [Entitic volume] by Automated count [facility] Monocytes [#/volume] in Blood by Automated count [facility] Monocytes/100 leukoc ytes in Blood by Automated count [facility] Neutrophils [#/volum e] in Blood by Automated count [facility] Neutrophils/100 leukocytes in Blood by Automated count [facility] Nucleated erythrocyt es [Presence] in Blood by Automated count [facility] Patient Education Azithromycin ( Systemic) Cephalexin Know your Meds [facility] COVID-19 Discharge Instructions [facility] Work Phone: Patient referral [facility] Work Phone: Platelet mean volume [Entitic volume] in Blood by Automated count [facility] Platelets [#/volume] in Blood [facility] Respiratory pathogen s DNA and RNA panel - Nasopharynx by YOLANDA with non-probe detection [facility] [place] [facility] Immunizations Immunization Date Immunization Notes Care Provider Yvette iniguez 04-30-2024 influenza virus vaccine, unspecified formulation SARAH TRIVEDI [facility] 05-16-2020 influenza virus vaccine, unspecified formulation Capo Meraz RN [facility] 05-10-2018 influenza virus vaccine, unspecified formulation SARAH TRIVEDI [facility] 05-10-2018 pneumococcal conjuga te vaccine, 13 valent SARAH TRIVEDI [facility] Payers Date Payer Category Payer Unknown [id number] 2024 Private Health Insurance [id number] 2024 Private Health Insurance [id number] 2023 Medicare [id number] 2022 Medicare [id number] 2.16.840.1.692383.19 2018 Unknown TEREZA ACOSTA PPO [id number] 2018-Present [phone] [address] [place] [address] PPO [id number] [id number] .[id number] 2018 Unknown [id number]. 1.13.159.2.7 .3.456310.315 1959 Unknown [id number] 2.16.840.1.419547.3.579.2.6 47 1959 Unknown [id number] 2.16.840.1.698043.3.579.2.5 93 1959 Unknown [id number] 2.16.840.1.184374.3.579.2.5 93 1959 Unknown [id number] 2.16.840.1.581040.3.579.2.5 93 1959 Unknown [id number] 2.16.840.1.463107.3.579.2.5 93 1959 Unknown [id number] 2.16.840.1.055173.3.579.2.5 93 1959 Unknown [id number] 2.16.840.1.984005.3.579.2.5 93 1959 Unknown [id number] 2.16.840.1.925358.3.579.2.5 93 1959 Unknown [id number] 2.16.840.1.963793.3.579.2.5 93 1959 Unknown [id number] 2.16.840.1.161086.3.579.2.5 93 1959 Unknown [id number] 2.16.840.1.312144.3.579.2.5 93 1959 Unknown [id number] 2.16.840.1.036720.3.579.2.5 1959 Unknown [id number] 2.16.840.1.763027.3.579.2.7 27 1959 Unknown [id number] 2.16.840.1.027327.3.579.2.7 27 1959 Unknown [id number] 2.16.840.1.534779.3.579.2.7 1959 Unknown [id number] 2.16.840.1.125845.3.579.2.7 27 1959 Unknown [id number] 2.16.840.1.447508.3.579.2.7 27 1959 Unknown [id number] 2.16.840.1.576943.3.579.2.7 27 1959 Unknown [id number] 2.16.840.1.532612.3.579.2.7 27 1959 Unknown [id number] 2.16.840.1.061360.3.579.2.7 27 1959 Unknown [id number] 2.16.840.1.596127.3.579.2.7 27 1959 Unknown [id number] 2.16.840.1.204441.3.579.2.7 1959 Unknown [id number] 2.16.840.1.219377.3.579.2.7 27 1959 Unknown [id number] 2.16.840.1.937985.3.579.2.7 1959 Unknown [id number] 2.16.840.1.272250.3.579.2.7 1959 Unknown [id number] 2.16.840.1.264770.3.579.2.7 1959 Unknown [id number] 2.16.840.1.247282.3.579.2.7 1959 Private Health Insurance [id number] 2.16.840.1.346041.19 1959 Self-pay [id number] 1959 Self-pay 1959 Unknown [id number] 1959 Unknown [id number] Medicaid Medicaid [id number] Unknown [id number] Unknown [id number] 2.16.840.1.962212.3.579.2.5 31 Social History Date Type Detail Facility Tobacco smoking stat [facility] Tobacco smoking consumption unknown [facility] Work Phone: Start: 1960 [facility]igned [facility] Start: 10-24-2021 End: 11-03-2021 Exposure to SARS-CoV-2 (event) Not sure [facility] Work Phone: Start: 03-18-2021 Sex Assigned At F [facility] Start: 03-18-2021 History of Social function [facility] National Score (1-10 0), lower number is lower risk Not on file [facility] Comment on above: Patient is a former 2 pack a day smoker. Quit over 15 years ago. Start: 03-17-2021 Gender identity Identifies as male gender (finding) [facility] Start: 03-17-2021 Sexual orientation Heterosexual (fin ding) [facility] Start: 06-27-2023 End: 10-25-2024 Tobacco smoking status NHIS Ex-smoker (finding) [facility] Comment on above: Patient is a former 2 pack a day smoker. Quit over 15 years ago. Start: 1960 Sex Assigned At Male F [facility] Start: 10-04-2024 End: 10-05-2024 Sex Male (finding) [facility] Start: 10-05-2024 SDOH Follow up SDOH Follow up [facility] Work Phone: Sexual Orientation [facility] Goals Date Patient Goal Desired Activity /State Functional Status Date Assessment Result Facility 10-05-2024 Functional status Patient at Baseline [facility] Work Phone: Mental Status Date Assessment Result Facility 10-05-2024 Cognitive function Cognitive Sta tus Patient at Baseline [facility] Work Phone: Clinical Notes 11-04-2021 to 01-24-2025 Note Date & Type Note Facility 01-24-2025 Note [facility] Note Chief Complaint: New patient here to re-establish care. Ref from Dr. Gonzalez for tachycardia and frequent PVC's/PAC's. Had 2 EKG's last month. He is not on any beta blockers or antihypertensives. states his BP yesterday was 80/54. Patient denies lightheadedness/dizziness and syncope. Says he gets chest aches once in awhile but attributes those to his lungs. HPI: Ricardo Hylton is a 64 y.o. male with a history of nonischemic cardiomyopathy who I have not seen for about 5 years He has no documented coronary artery disease and had a cardiac catheterization in 2019 He has severe pulmonary disorders including alpha 1 antitrypsin deficiency, centrilobular emphysema, oxygen dependent respiratory failure and uses oxygen [id number]. He also uses inhalers multiple times a day. He was sent to see me as an EKG showed frequent premature supraventricular complexes and ST depressions. The patient denies anginal chest pain. His shortness of breath is about the same. He may need to be evaluated for lung transplant. He is actually unaware of any palpitations, he has had no significant lightheadedness, dizziness or syncope. He has obstructive sleep apnea and sleeps [...] 93% Comment: on 3L O2 BMI 34.70 kg/m??? Physical Examination: GENERAL: alert and oriented x3, [...] wedge pressure consistent with biventricular congestive heart failure 5. Reduced cardiac output/cardiac index EKG 01/04/2025: Sinus tachycardia with frequent supraventricular premature complexes Moderate ST depression Compared to prior EKG ST T wave deviation now present Echocardiography Report: Transthoracic Echo [facility] A17 Date of service: 03/24/2021 2:23:59 PM AND FIXTURE MAKER Ordering physician: LYLE HILLIARD Indication: Lung transplant Technologist: Mary Jo Brady Interpreting physician: Yadira Parrish MD PATIENT: Name: MR. RICARDO HYLTON : 1960 Age: 60 years Gender: M Primary rhythm: sinus. Height: 176.00 cm BSA: 2.17 m??? Weight: 96.40 kg BMI: 31.1 kg/m??? Heart rate 86 bpm Technically difficult exam due to body habitus. Color Doppler was utilized to interrogate the cardiac valves assessed and spectral Doppler was utilized to determine the flow velocities and pressure gradients reported in this exam. MEASUREMENTS: Value Indexed Normal Max aortic dimension 3.0 cm Ao < 3.8 Left atrial volume 67 ml (biplane A-L) 31 ml/m??? Radha <= 34 LV stroke volume 73 ml (2D 4-ch.) LV end diastolic volume 129 ml (2D 4-ch.) 59.4 ml/m??? 34<=EDVi<75 LV end systolic volume 56 ml (2D 4-ch.) 25.6 ml/m??? Ejection Fraction 57 % (2D 4-ch.) EF [...] 11.9 cm/s. Tricuspid annular displacement is 3.0 cm (more content not included)... [facility] 11-28-2024 Hospital Discharge instructions Patient Education 11/28/2024 09:39:09 Prostatitis Prostatitis Prostatitis is swelling or inflammation of the prostate gland, also called the prostate. This gland is about 1.5 inches wide and 1 inch high, and it is involved in making semen. The prostate is located below a man's bladder, in front of the rectum. There are four types of prostatitis: Chronic prostatitis (CP), also called chronic pelvic pain syndrome (CPPS). This is the most common type of prostatitis. It is associated with increased muscle tone in the area between the hip bones (pelvic area), around the prostate. This type is also known as a pelvic floor disorder. Chronic bacterial prostatitis. This type usually results from an acute bacterial infection in the prostate gland that keeps coming back or has not been treated properly. The symptoms are less severe than those caused by acute bacterial prostatitis, which lasts a shorter time. Asymptomatic inflammatory prostatitis. This type does not have symptoms and does not need treatment. This is diagnosed when tests are done for other disorders of the urinary tract or reproductive tract. Acute bacterial prostatitis. This type starts quickly and results from an acute bacterial infection in the prostate gland. It is usually associated with a bladder infection, high fever, and chills. This is the least common type of prostatitis. What are the causes? Bacterial prostatitis is caused by an infection from bacteria. Chronic nonbacterial prostatitis may be caused by: Factors related to the nervous system. This system includes thebrain, spinal cord, and nerves. An autoimmune response. This happens when the body's disease-fighting system attacks healthy tissue in the body by mistake. Psychological factors. These have to do with how the mind works. The causes of the other types of prostatitis are usually not known. What are the signs or symptoms? Symptoms of this condition depend on the type of prostatitis you have. Acute bacterial prostatitis Symptoms may include: Pain or burning during urination. Frequent and sudden urges to urinate. Trouble starting to urinate. Fever. Chills. Pain in your muscles or joints, lower back, or lower abdomen. Other types of prostatitis Symptoms may include: Sudden urges to urinate, or urinating often. Trouble starting to urinate. Weak urine stream. Dribbling after urination. Discharge coming from the penis. Pain in the testicles, the penis, or the tip of the penis. Pain in the area in front of the rectum and below the scrotum (perineum). Pain when ejaculating. How is this diagnosed? This condition may be diagnosed based on: A physical and medical exam. A digital rectal exam. For this, the health care provider may use a finger to feel the prostate. A urine test to check for bacteria. A semen sample or blood tests. Ultrasound. Urodynamic tests to check how your body handles urine. Cystoscopy to look inside your bladder or inside the part of your body that drains urine from the bladder (urethra). How is this treated? Treatment for this condition depends on the type of prostatitis. Treatment may involve: Medicines to relieve pain or inflammation, or to help relax your muscles. Physical therapy. Heat therapy. Biofeedback. These techniques help you control certain body functions. Relaxation exercises. Antibiotic medicine, if your condition is caused by bacteria. Sitz baths. These warm water baths help to relax your pelvic floor muscles, which helps to relieve pressure on the prostate. Follow these instructions at home: Medicines Take myjz-tsc-hpmhttw and prescription medicines only as told by your health care provider. If you were prescribed an antibiotic medicine, take it as told by your health care provider. Do not stop using the antibiotic even if you start to feel better. Managing pain and swelling Take sitz baths as directed by your health care provider. For a sitz bath, sit in warm water that is deep enough to cover your hips and buttocks. If directed, apply heat to the affected area as often as told by your health care provider. Use the heat source that your health care provider recommends, such as a moist heat pack or a heating pad. ?Place a towel between your skin and the heat source. ?Leave the heat on for 20 30 minutes. ?Remove the heat if your skin turns bright red. This is especially important if you are unable to feel pain, heat, or cold. You may have a greater risk of getting burned. General instructions Do exercises as told by your health care provider, if you were prescribed physical therapy, biofeedback, or relaxation exercises. Keep all follow-up visits as told by your health care provider. This is important. Where to find more information National [place] of Diabetes and Digestive and Kidney Diseases: https://www.niddk.nih.gov Contact a health care provider if: Your symptoms get worse. You have a fever. Get help right away if: You have chills. You feel light-headed or feel like you may faint. You cannot urinate. You have blood or blood clots in your urine. Summary Prostatitis is swelling or inflammation of the prostate gland. Treatment for this condition depends on the type of prostatitis. Take vuin-rit-dsyuhee and prescription medicines only as told by your health care provider. Get help right away of you have chills, feel light-headed, feel like you may faint, cannot urinate, or have blood or blood clots in your urine. This information is not intended to replace advice given to you by your health care provider. Make sure you discuss any questions you have with your health care provider. Document Revised: 05/19/2023 Document Reviewed: 05/19/2023 [employer] Patient Education 2023 [employer]. 11/28/2024 09:31:37 Prostate Cancer Screening Prostate Cancer Screening Prostate cancer screening is testing that is done to check for the presence of prostate cancer in men. The prostate gland is a walnut-sized gland that is located below the bladder and in front of the rectum in males. The function of the prostate is to add fluid to semen during ejaculation. Prostate cancer is one of the most common types of cancer in men. Who should have prostate cancer screening? Screening recommendations vary based on age and other risk factors, as well as between the professional organizations who make the recommendations. In general, screening is recommended if: You are age 50 to 70 and have an average risk for prostate cancer. You should talk with your health care provider about your need for screening and how often screening should be done. Because most prostate cancers are slow growing and will not cause , screening in this age group is generally reserved for men who have a 10- to 15-year life expectancy. You are younger than age 50, and you have these risk factors: ?Having a father, brother, or uncle who has been diagnosed with prostate cancer. The risk is higher if your family member's cancer occurred at an early age or if you have multiple family members with prostate cancer at an early age. ?Being a male who is Black or is of [place] or sub-Saharan descent. In general, screening is not recommended if: You are younger than age 40. You are between the ages of 40 and 49 and you have no risk factors. You are 70 years of age or older. At this age, the risks that screening can cause are greater than the benefits that it may provide. If you are at high risk for prostate cancer, your health care provider may recommend that you have screenings more often or that you start screening at a younger age. How is screening for prostate cancer done? The recommended prostate cancer screening test is a blood test called the prostate-specific antigen (PSA) test. PSA is a protein that is made in the prostate. As you age, your prostate naturally produces more PSA. Abnormally high PSA levels may be caused by: Prostate cancer. An enlarged prostate that is not caused by cancer (benign prostatic hyperplasia, or BPH). This condition is very common in older men. A prostate gland infection (prostatitis) or urinary tract infection. Certain medicines such as male hormones (like testosterone) or other medicines that raise testosterone levels. A rectal exam may be done as part of prostate cancer screening to help provide information about the size of your prostate gland. When a rectal exam is performed, it should be done after the PSA level is drawn to avoid any effect on the results. Depending on the PSA results, you may need more tests, such as: A physical exam to check the size of your prostate gland, if not done as part of screening. Blood and imaging tests. A procedure to remove tissue samples from your prostate gland for testing (biopsy). This is the only way to know for certain if you have prostate cancer. What are the benefits of prostate cancer screening? Screening can help to identify cancer at an early stage, before symptoms start and when the cancer can be treated more easily. There is a small chance that screening may lower your risk of dying from prostate cancer. The chance is small because prostate cancer is a slow-growing cancer, and most men with prostate cancer from a different cause. What are the risks of prostate cancer screening? The main risk of prostate cancer screening is diagnosing and treating prostate cancer that would never have caused any symptoms or problems. This is called overdiagnosisand overtreatment. PSA screening cannot tell you if your PSA is high due to cancer or a different cause. A prostate biopsy is the only procedure to diagnose prostate cancer. Even the results of a biopsy may not tell you if your cancer needs to be treated. Slow-growing prostate cancer may not need any treatment other than monitoring, so diagnosing and treating it may cause unnecessary stress or other side effects. Questions to ask your health care provider When should I start prostate cancer screening? What is my risk for prostate cancer? How often do I need screening? What type of screening tests do I need? How do I get my test results? What do my results mean? Do I need treatment? Where to find more information The [place] [employer]: www.cancer.org [place] [employer]: www.auanet.org Contact a health care provider if: You have difficulty urinating. You have pain when you urinate or ejaculate. You have blood in your urine or semen. You have pain in your back or in the area of your prostate. Summary Prostate cancer is a common type of cancer in men. The prostate gland is located below the bladder and in front of the rectum. This gland adds fluid to semen during ejaculation. Prostate cancer screening may identify cancer at an early stage, when the cancer can be treated more easily and is less likely to have spread to other areas of the body. The prostate-specific antigen (PSA) test is the recommended screening test for prostate cancer, but it has associated risks. Discuss the risks and benefits of prostate cancer screening with your health care provider. If you are age 70 or older, the risks that screening can cause are greater than the benefits that it may provide. This information is not intended to replace advice given to you by your health care provider. Make sure you discuss any questions you have with your health care provider. Document Revised: 12/28/2021 Document Reviewed: 12/28/2021 [employer] Patient Education 2023 [employer]. Follow Up Care 11/01/2024 14:15:46 With:PHI GOSS, Joo Mendoza, URL Address: [facility] [address] , [place] [address]- When: Unknown [facility] 11-28-2024 Note Urology Office/Clini c Note HPI Staff New Pt. Internal Referral per Sarah Trivedi CNP due to elevated PSA PSA 5.0 10/25/24 7.8 01/24/24 IPSS 10 Moderate urgency, denies pain or burning, denies visible blood, empties out well, denies abdomen/flank pain History of Present Illness Tests reviewed: UA, referral records, PSAs I have reviewed the previous health record information and history for this patient from Dr. Yip. I have reviewed and verified the staff HPI to be accurate for this encounter. Review of Systems ROS - Provider Constitutional: denies weight loss, denies hot flashes. Eyes: denies eye problems. Gastrointestinal: denies nausea, denies vomiting. Cardiovascular: denies chest pain or angina. Integumentary: no dryness Musculoskeletal: denies musculoskeletal symptoms. ENMT: denies otolaryngeal symptoms. Respiratory: no shortness of breath. Heme/Lymph: denies easy bleeding tendency, denies easy bruising tendency. Psychiatric: no confusion, no anxiety. Genitourinary: See HPI. Physical Exam General Appearance: alert, no distress, well nourished, well developed male. DESEAN ~ 40 g, no nodules. Assessment/Plan Ricardo is a 64 yo M new pt referred by Sarah Trivedi CNP due to elevated PSA. PMH: DMII. COPD and emphysema, on O2. Pt accompanied by an adult female today. 1. Elevated PSA (R97.20: Elevated prostate specific antigen [PSA]) PSA: 01/24/24 - 7.8 10/25/24 - 5.0 Reviewed abnl PSA levels. Had UTI a couple yrs ago. Was given med by Dr Cowart which resolved infection. Had burning with urination and incontinence. Given hx of infection, there is a good chance that his PSA elevation/fluctuation is d/t chronic low grade prostatitis which can falsely elevated PSA. Given foul smelling urine, this again suggests prostatitis. Will tx for prostatitis then repeat PSA level. DESEAN ~ 40 g, no nodules. Follow up 2 mos with PSA F&T (nurse visit) or sooner if needed. Pt understands and agrees with plan. -Repeat PSA F&T level after completing abx 2. BPH with obstruction/lower urinary tract symptoms (N40.1: Benign prostatic hyperplasia with lower urinary tract symptoms) UA neg. IPSS 10. No BPH or bladder meds. Chronic prostatitis can be exacerbated by suboptimal urination. Voids q1hr. Feels he empties completely. Nocturia sometimes 2x/night. Movement Education Specialist reports urine is very strong smelling, likely dehydration however foul odor can indicate infection. Movement Education Specialist feels his urine is foul smelling. 3. Chronic prostatitis (N41.1: Chronic prostatitis) See #1 and #2. -Start Doxycycline 100 mg bid x 3 wks. SEs discussed. Sent to [facility]. 4. Former smoker (Z87.891: Personal history of nicotine dependence) 37 yrs, 2 PPD. Increased risk for urothelial cancer. Follow-up With When Contact Information PHI GOSS, Joo Mendoza, URL [facility] [address] [place] [address]- Additional Instructions: 2 mos with PSA F&T (nurse visit) Patient Education Prostatitis Prostate Cancer Screening I, Ellen Cowan, personally scribed for Dr. Yip on 11/28/2024 09:39:31. . Documentation recorded by the scribe, Ellen Cowan, accurately reflects the services(s) I performed and decisions made by me. Authenticated by Dr. Yip on 11/28/2024 09:42:17. 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 Medications aripiprazole 10 mg Tab, 10 mg= 1 tab(s), Oral, Daily, 1 refills aripiprazole 10 mg Tab, See Instructions aspirin 81 mg Oral EC Tab, 81 mg= 1 tab(s), Oral, Daily cetirizine 10 mg Tab, 10 mg= 1 tab(s), Oral, Daily, PRN Combivent Respimat 20 mcg-100 mcg, 1 puff(s), Inhalation, QID cyclobenzaprine 5 mg Tab, 5 mg= 1 tab(s), Oral, BID furosemide 40 mg Tab, 40 mg= 1 tab(s), Oral, Daily glipiZIDE 10 mg Tab, See Instructions, 5 refills Glucose Kit, See Instructions hydrOXYzine hydrochloride 50 mg oral tablet, See Instructions Jardiance 25 mg oral tablet, 25 mg= 1 tab(s), Oral, qAM, 1 refills lisinopril 5 mg Tab, 5 mg= 1 tab(s), Oral, Daily metoprolol 25 mg ER Tab, 25 mg= 1 tab(s), Oral, Daily Mucinex DM 30 mg-600 mg Tab-ER, See Instructions omeprazole 20 mg Cap-DR, See Instructions Ozempic 2 mg/3 mL (0.25 mg or 0.5 mg dose) subcutaneous solution, See Instructions pravastatin 80 mg Tab, See Instructions Prolastin-C, See Instructions theophyll (more content not included)... [facility] Comment on above: Result Comment: Elec tronically Signed By: PHI GOSS, Joo Larios.mitchel\Date and Time Signed: 11/28/24 09:45 EDT 11-28-2024 Note Patient Education Infectious Disease Prostatitis Prostatitis is swelling or inflammation of the prostate gland, also called the prostate. This gland is about 1.5 inches wide and 1 inch high, and it is involved in making semen. The prostate is located below a man's bladder, in front of the rectum. There are four types of prostatitis: ??? Chronic prostatitis (CP), also called chronic pelvic pain syndrome (CPPS). This is the most common type of prostatitis. It is associated with increased muscle tone in the area between the hip bones (pelvic area), around the prostate. This type is also known as a pelvic floor disorder. ??? Chronic bacterial prostatitis. This type usually results from an acute bacterial infection in the prostate gland that keeps coming back or has not been treated properly. The symptoms are less severe than those caused by acute bacterial prostatitis, which lasts a shorter time. ??? Asymptomatic inflammatory prostatitis. This type does not have symptoms and does not need treatment. This is diagnosed when tests are done for other disorders of the urinary tract or reproductive tract. ??? Acute bacterial prostatitis. This type starts quickly and results from an acute bacterial infection in the prostate gland. It is usually associated with a bladder infection, high fever, and chills. This is the least common type of prostatitis. What are the causes? Bacterial prostatitis is caused by an infection from bacteria. Chronic nonbacterial prostatitis may be caused by: ??? Factors related to the nervous system. This system includes thebrain, spinal cord, and nerves. ??? An autoimmune response. This happens when the body's disease-fighting system attacks healthy tissue in the body by mistake. ??? Psychological factors. These have to do with how the mind works. The causes of the other types of prostatitis are usually not known. What are the signs or symptoms? Symptoms of this condition depend on the type of prostatitis you have. Acute bacterial prostatitis Symptoms may include: ??? Pain or burning during urination. ??? Frequent and sudden urges to urinate. ??? Trouble starting to urinate. ??? Fever. ??? Chills. ??? Pain in your muscles or joints, lower back, or lower abdomen. Other types of prostatitis Symptoms may include: ??? Sudden urges to urinate, or urinating often. ??? Trouble starting to urinate. ??? Weak urine stream. ??? Dribbling after urination. ??? Discharge coming from the penis. ??? Pain in the testicles, the penis, or the tip of the penis. ??? Pain in the area in front of the rectum and below the scrotum (perineum). ??? Pain when ejaculating. How is this diagnosed? This condition may be diagnosed based on: ??? A physical and medical exam. ??? A digital rectal exam. For this, the health care provider may use a finger to feel the prostate. ??? A urine test to check for bacteria. ??? A semen sample or blood tests. ??? Ultrasound. ??? Urodynamic tests to check how your body handles urine. ??? Cystoscopy to look inside your bladder or inside the part of your body that drains urine from the bladder (urethra). How is this treated? Treatment for this condition depends on the type of prostatitis. Treatment may involve: ??? Medicines to relieve pain or inflammation, or to help relax your muscles. ??? Physical therapy. ??? Heat therapy. ??? Biofeedback. These techniques help you control certain body functions. ??? Relaxation exercises. ??? Antibiotic medicine, if your condition is caused by bacteria. ??? Sitz baths. These warm water baths help to relax your pelvic floor muscles, which helps to relieve pressure on the prostate. Follow these instructions at home: Medicines ??? Take xeha-ocp-zkbbqyf and prescription medicines only as told by your health care provider. ??? If you were prescribed an antibiotic medicine, take it as told by your health care provider. Do not stop using the antibiotic even if you start to feel better. Managing pain and swelling ??? Take sitz baths as directed by your health care provider. For a sitz bath, sit in warm water that is deep enough to cover your hips and buttocks. ??? If directed, apply heat to the affected area as often as told by your health care provider. Use the heat source that your health care provider recommends, such as a moist heat pack or a heating pad. ? Place a towel between your skin and the heat source. ? Leave the heat on for 20?30 minutes. ? Remove the heat if your skin turns bright red. This is especially important if you are unable to feel pain, heat, or cold. You may have a greater risk of getting burned. General instructions ??? Do exercises as told by your health care provider, if you were prescribed physical therapy, biofeedback, or relaxation exercises. ??? Keep all follow-up visits as told by your health care provider. This is important. (more content not included)... [facility] 10-25-2024 Note Patient Education Endocrinology Diabetes Mellitus and [...] an expert trained in diabetes care (certified nuclear medicine technologist) can help you make an activity plan. [...] stroke). Where to find more information ??? [place] [employer]: diabetes.org ??? Association of Diabetes Care & Education Specialists: diabeteseducator.org This information is not intended to replace advice given to you by your health care provider. Make sure you discuss any questions you have with your health care provider. Document Revised: 12/22/2022 Document Reviewed: 12/22/2022 [employer] Patient Education ? 2023 [employer]. [facility] 10-05-2024 Progress note Note Date/Time October 05, 2024 12:00am [facility] [address] [place] [address] Hospitalist Progress Note Signed Patient: Ricardo Hylton MR#: [id number] : 1960 Acct:[id number] Age/Sex: 63 / M Adm Date: 5 Loc: Room: [address] [place] [address] Type: ADM IN Attending Dr: Eden Greenwood MD Copies to: ~ Date of Service: 10/04/2024 Subjective Subjective Narrative: Assessment And Plan 63M with HTN, DM, COPD with alpha-1 antitrypsin deficiency (awaiting lung transplant), CRF (on 4L Home O2), RANCHO (on CPAP) presented from home with shortness of breath and admitted for COPD exacerbation COPD Exacerbation Chronic Respiratory Failure the patient presents with SOB , The patient is afebrile since admission . there is no leukocytosis Troponin is not significantly elevated ABG shows no hypercapnia, hypoxia EKG ED: sinus tach with no acute ST changes CXR ED: bibasilar opacities likely atelectasis and or scarring. The cause of the acute exacerbation could be due to Covid19 infection, bacterialcan't be ruled out therefore she was started on Antibiotics empirically. Breathing treatment O2 supplement by nasal cannula ABx: Ceftriaxone and Azithromycin Mucinex Covid19 Infection Covid19 positive Steroids he was started on Remdesivir course Mild Hyperkalemia - resolved K 5.4 on admission LINTERVAL HPI: As Above, Pt resting in bed. feeling better. Denies any chest pain his SOB at baseline Chronic diseases: Unless mentioned Above, Essential home medications have been continued. DVT Px: Addressed Disposition: To be determined Plan of care Discussed with: the medical team, the patient L Exam Physical Exam Vital Signs: Temp Pulse Resp BP Pulse Ox O2 Del Method O2 Flow Rate 36.6 C 116 H 24 123/71 97 Nasal Cannula 3 10/04/24 08:00 10/04/24 12:00 10/04/24 12:00 10/04/24 12:00 10/04/24 12:00 10/04/24 12:00 10/04/24 12:00 Narrative: GEN: NAD, Cooperative NECK: ? JVD LUNGS: diminished breathing sounds with scattered wheezing . normal respiratory effort CV: nl S1 S2; no M/R/G ABD: Soft, ND, NT, + BS, ? HSM EXT: No peripheral edema, No calf muscle tenderness NEURO: ? FND. PSYCH: nl affect, AOx3 Objective Lab Results 10/04/24 05:59 10/04/24 05:59 Microbiology Results Microbiology 10/04/24 01:43 Nasopharyngeal Respiratory Panel (PCR) - Final Meds Allergies and Active Meds Allergies metformin Allergy (Unknown, Verified 10/03/24 22:43) Diarrhea Active Meds: Active Medications Generic Name Dose Route Start Last Admin Trade Name Freq PRN Reason Stop Dose Admin Albuterol/Ipratropium 3 ml 10/04/24 08:00 10/04/24 11:22 Ipratropium/Albuterol 0.5-3 Mg 3 Ml Ampul.Neb INHALATION 10/04/25 07:59 3 ml QID.RESP KAITLIN Administration Aripiprazole 10 mg 10/04/24 09:00 10/04/24 08:21 Aripiprazole 10 Mg Tablet PO 10/04/25 08:59 Not Given DAILY KAITLIN Aspirin 81 mg 10/04/24 09:00 10/04/24 08:21 Aspirin 81 Mg Tablet.Dr PO 10/04/25 08:59 Not Given DAILY [facility] Azithromycin 500 mg 10/04/24 02:00 10/04/24 03:34 Azithromycin 250 Mg Tablet PO 10/05/24 22:01 500 mg QHS KAITLIN Administration Cyclobenzaprine HCl 5 mg 10/04/24 09:00 10/04/24 08:21 Cyclobenzaprine 5 Mg Tablet PO 10/04/25 08:59 Not Given BID [facility] Dexamethasone 2 mg/ 6 mg 10/04/24 09:00 10/04/24 08:21 Dexamethasone 4 mg PO 10/13/24 09:01 Not Given DAILY [facility] Dextrose 0 gm 10/04/24 02:37 Dextrose 50% In Water 25 Gm/50 Ml Syringe IV-PUSH 10/04/25 02:36 PRN PRN Hypoglycemia Dextrose 0 gm 10/04/24 14:37 Dextrose 50% In Water 25 Gm/50 Ml Syringe IV-PUSH 10/04/25 14:36 PRN PRN Hypoglycemia Enoxaparin Sodium 40 mg 10/05/24 10:00 Enoxaparin 40 Mg/0.4 Ml Syringe SUBCUT 10/05/25 09:59 DAILY@1000 [facility] Furosemide 40 mg 10/04/24 08:00 10/04/24 07:50 Furosemide 40 Mg Tablet PO 10/04/25 07:59 40 mg DAILY@0800 [facility] Administration Glucose 0 gm 10/04/24 02:37 Dextrose 40% Gel 15 Gm Tube PO 10/04/25 02:36 PRN PRN Hypoglycemia Glucose 0 gm 10/04/24 14:37 Dextrose 40% Gel 15 Gm Tube PO 10/04/25 14:36 PRN PRN Hypoglycemia Guaifenesin 600 mg 10/04/24 21:00 Guaifenesin 600 Mg Tab.Er.12h PO 10/04/25 20:59 BID [facility] Ceftriaxone Sodium 1 gm in 50 mls @ 100 mls/hr 10/04/24 02:30 10/04/24 03:39 Rocephin IV 100 mls/hr Q24H KAITLIN Administration Remdesivir 100 mg/ Sodium 250 mls @ 250 mls/hr 10/05/24 09:00 Chloride IV 10/08/24 09:59 Q24H [facility] Insulin Aspart 0 units 10/04/24 17:00 Insulin Aspart 300 Units/3 Ml SUBCUT 10/04/25 16:59 TID.WM.HS [facility] Protocol Lisinopril 5 mg 10/04/24 09:00 10/04/24 08:21 Lisinopril 5 Mg Tablet PO 10/04/25 08:59 Not Given DAILY [facility] Metoprolol Succinate 25 mg 10/05/24 09:00 Metoprolol Succinate 25 Mg Tab.Er.24h PO 10/05/25 08:59 DAILY KA[facility]LIN Pantoprazole Sodium 40 mg 10/04/24 09:00 10/04/24 08:22 Pantoprazole 40 Mg Tablet. PO 10/04/25 08:59 Not Given DAILY [facility] Sodium Chloride 0 ml 10/03/24 22:43 10/04/24 01:29 Sodium Chloride 0.9 % 10 Ml Syringe IV-PUSH 10/03/25 22:42 10 ml PRN PRN Administration Flush Sodium Chloride 10 ml 10/05/24 10:00 Sodium Chloride 0.9 % 10 Ml Syringe IV-PUSH 10/08/24 10:01 Q24H [facility] Theophylline 450 mg 10/04/24 09:00 10/04/24 08:31 Theophylline Anhydrous 300 Mg Tab.Er.12h PO 10/04/25 08:59 450 mg BID [facility] Administration A&P - Hospitalist Assessment/Plan (1) Acute exacerbation of chronic obstructive pulmonary disease (COPD): (2) Wizlu-2-klvtnvrfilk deficiency: (3) Obstructive sleep apnea (adult) (pediatric): (4) Hypertension: Plan Documented By: Eden Greenwood MD 10/04/24 1438 Signed By: <Electronically signed by Eden Greenwood MD> 10/05/24 0000 [facility] Work Phone: 1(241) 952-219203-21-20[place] [address] Hospitalist Progress Note Signed Patient: Ricardo Hylton MR#: [id number] : 1960 Acct:[id number] Age/Sex: 63 / M Adm Date: 5 Loc: Room: [address] [place] [address] Type: ADM IN Attending Dr: Eden Greenwood MD Copies to: ~ Date of Service: 10/04/2024 Subjective Subjective Narrative: Assessment And Plan 63M with HTN, DM, COPD with alpha-1 antitrypsin deficiency (awaiting lung transplant), CRF (on 4L Home O2), RANCHO (on CPAP) presented from home with shortness of breath and admitted for COPD exacerbation COPD Exacerbation Chronic Respiratory Failure the patient presents with SOB , The patient is afebrile since admission . there is no leukocytosis Troponin is not significantly elevated ABG shows no hypercapnia, hypoxia EKG ED: sinus tach with no acute ST changes CXR ED: bibasilar opacities likely atelectasis and or scarring. The cause of the acute exacerbation could be due to Covid19 infection, bacterialcan't be ruled out therefore she was started on Antibiotics empirically. Breathing treatment O2 supplement by nasal cannula ABx: Ceftriaxone and Azithromycin Mucinex Covid19 Infection Covid19 positive Steroids he was started on Remdesivir course Mild Hyperkalemia - resolved K 5.4 on admission LINTERVAL HPI: As Above, Pt resting in bed. feeling better. Denies any chest pain his SOB at baseline Chronic diseases: Unless mentioned Above, Essential home medications have been continued. DVT Px: Addressed Disposition: To be determined Plan of care Discussed with: the medical team, the patient L Exam Physical Exam Vital Signs: Temp Pulse Resp BP Pulse Ox O2 Del Method O2 Flow Rate 36.6 C 116 H 24 123/71 97 Nasal Cannula 3 10/04/24 08:00 10/04/24 12:00 10/04/24 12:00 10/04/24 12:00 10/04/24 12:00 10/04/24 12:00 10/04/24 12:00 Narrative: GEN: NAD, Cooperative NECK: ? JVD LUNGS: diminished breathing sounds with scattered wheezing . normal respiratory effort CV: nl S1 S2; no M/R/G ABD: Soft, ND, NT, + BS, ? HSM EXT: No peripheral edema, No calf muscle tenderness NEURO: ? FND. PSYCH: nl affect, AOx3 Objective Lab Results 10/04/24 05:59 10/04/24 05:59 Microbiology Results Microbiology 10/04/24 01:43 Nasopharyngeal Respiratory Panel (PCR) - Final Meds Allergies and Active Meds Allergies metformin Allergy (Unknown, Verified 10/03/24 22:43) Diarrhea Active Meds: Active Medications Generic Name Dose Route Start Last Admin Trade Name Larissa PRN Reason Stop Dose Admin Albuterol/Ipratropium 3 ml 10/04/24 08:00 10/04/24 11:22 Ipratropium/Albuterol 0.5-3 Mg 3 Ml Ampul.Neb INHALATION 10/04/25 07:59 3 ml QID.RESP KAITLIN Administration Aripiprazole 10 mg 10/04/24 09:00 10/04/24 08:21 Aripiprazole 10 Mg Tablet PO 10/04/25 08:59 Not Given DAILY K[facility] Aspirin 81 mg 10/04/24 09:00 10/04/24 08:21 Aspirin 81 Mg Tablet.Dr PO 10/04/25 08:59 Not Given DAILY [facility] Azithromycin 500 mg 10/04/24 02:00 10/04/24 03:34 Azithromycin 250 Mg Tablet PO 10/05/24 22:01 500 mg QHS KAITLIN Administration Cyclobenzaprine HCl 5 mg 10/04/24 09:00 10/04/24 08:21 Cyclobenzaprine 5 Mg Tablet PO 10/04/25 08:59 Not Given BID [facility] Dexamethasone 2 mg/ 6 mg 10/04/24 09:00 10/04/24 08:21 Dexamethasone 4 mg PO 10/13/24 09:01 Not Given DAILY [facility] Dextrose 0 gm 10/04/24 02:37 Dextrose 50% In Water 25 Gm/50 Ml Syringe IV-PUSH 10/04/25 02:36 PRN PRN Hypoglycemia Dextrose 0 gm 10/04/24 14:37 Dextrose 50% In Water 25 Gm/50 Ml Syringe IV-PUSH 10/04/25 14:36 PRN PRN Hypoglycemia Enoxaparin Sodium 40 mg 10/05/24 10:00 Enoxaparin 40 Mg/0.4 Ml Syringe SUBCUT 10/05/25 09:59 DAILY@1000 [facility] Furosemide 40 mg 10/04/24 08:00 10/04/24 07:50 Furosemide 40 Mg Tablet PO 10/04/25 07:59 40 mg DAILY@0800 [facility] Administration Glucose 0 gm 10/04/24 02:37 Dextrose 40% Gel 15 Gm Tube PO 10/04/25 02:36 PRN PRN Hypoglycemia Glucose 0 gm 10/04/24 14:37 Dextrose 40% Gel 15 Gm Tube PO 10/04/25 14:36 PRN PRN Hypoglycemia Guaifenesin 600 mg 10/04/24 21:00 Guaifenesin 600 Mg Tab.Er.12h PO 10/04/25 20:59 BID [facility]LIN Ceftriaxone Sodium 1 gm in 50 mls @ 100 mls/hr 10/04/24 02:30 10/04/24 03:39 Rocephin IV 100 mls/hr Q24H KAITLIN Administration Remdesivir 100 mg/ Sodium 250 mls @ 250 mls/hr 10/05/24 09:00 Chloride IV 10/08/24 09:59 Q24H [facility] Insulin Aspart 0 units 10/04/24 17:00 Insulin Aspart 300 Units/3 Ml SUBCUT 10/04/25 16:59 TID.WM.HS [facility] Protocol Lisinopril 5 mg 10/04/24 09:00 10/04/24 08:21 Lisinopril 5 Mg Tablet PO 10/04/25 08:59 Not Given DAILY [facility] Metoprolol Succinate 25 mg 10/05/24 09:00 Metoprolol Succinate 25 Mg Tab.Er.24h PO 10/05/25 08:59 DAILY KAITLIN Pantoprazole Sodium 40 mg 10/04/24 09:00 10/04/24 08:22 Pantoprazole 40 Mg Tablet.Dr PO 10/04/25 08:59 Not Given DAILY [facility]LIN Sodium Chloride 0 ml 10/03/24 22:43 10/04/24 01:29 Sodium Chloride 0.9 % 10 Ml Syringe IV-PUSH 10/03/25 22:42 10 ml PRN PRN Administration Flush Sodium Chloride 10 ml 10/05/24 10:00 Sodium Chloride 0.9 % 10 Ml Syringe IV-PUSH 10/08/24 10:01 Q24H [facility] Theophylline 450 mg 10/04/24 09:00 10/04/24 08:31 Theophylline Anhydrous 300 Mg Tab.Er.12h PO 10/04/25 08:59 450 mg BID KAITLIN Administration A&P - Hospitalist Assessment/Plan (1) Acute exacerbation of chronic obstructive pulmonary disease (COPD): (2) Ifbar-6-hyzfaysdrbb deficiency: (3) Obstructive sleep apnea (adult) (pediatric): (4) Hypertension: Plan Documented By: Eden Greenwood MD 10/04/24 1438 Signed By: 10/05/24 0000 [facility]03-20-2025 Hospital Discharge instructions Additional Instructions Dietitian recommendations: Ensure clear, 1 container, twice daily with meals You tested positive for COVID-19 on 10/04/24. Please see attached COVID-19 discharge instructions. Continue use of CPAP and oxygen as per chronic orders.[facility] Work Phone: [phone]) 330-264803-20-2025 History and physical note Author Clifton Calderon [facility] Note Date/Time October 04, 2024 3:4 7am [facility] [address] [place] [address] Hospitalist H&P Signed with Addenda Patient: Ricardo Hylton MR#: [id number] : 1960 Acct:[id number] Age/Sex: 63 / M Adm Date: 5 Loc: Room: [address] [place] [address] Type: ADM IN Attending Dr: Clifton Calderon MD Copies to: MD Sarah Watts, [facility]~ ADDENDUM1 Respiratory panel resulted COVID positive, will start remdesivir and dexamethasone given increased O2 needs. Addendum Documented By: Clifton Calderon MD 10/04/24346 Addendum Signed By: <Electronically signed by Clifton Calderon MD> 10/04/24346 HPI DATE OF EXAMINATION: 10/04/24 CHIEF COMPLAINT: Shortness of Breath HISTORY OF PRESENT ILLNESS: Ricardo Hylton is a 63 y/o M history of COPD with alpha-1 antitrypsin deficiency, on 4 L NC baseline and receives on weekly infusions, HTN, DM II, presented from home with shortness of breath, no chest pain, concern for COPD exacerbation prompting request for medical admission. On assessment at bedside in the ER, patient is resting in bed, still slightly tachpneic but improved from presentation, states has had progressive shortness of breath for the past 2-3 days until not bearable prompting presentation to ER today. Endorses some fevers, no nausea or vomiting, no sick contacts. In the ER, Na 139, K 5.4, Cr 1.26, WBC 12.7, hgb 17.8. CXR with bibasilar opacities. Received solumedrol 40 mg IV x1, duonebs x1. Review of Systems Review of Systems All other systems reviewed & are negative unless noted below or in HPI [facility] Medical History Obstructive sleep apnea (adult) (pediatric) Hypertension History of left heart catheterization GERD (gastroesophageal reflux disease) Essential hypertension Diabetes type 2, controlled Depression Chronic obstructive pulmonary disease Centrilobular emphysema Anxiety, generalized Crdzw-7-tbgejpabwkp deficiency Family History Father Cancer Legacy FamHx Problem: Diagnosed with Cancer Family history of lung cancer Social History Smoking Status: Former smoker Tobacco Type: cigarettes Substance Use Type: Alcohol Meds Medications and Allergies Allergies metformin Allergy (Unknown, Verified 10/03/24 22:43) Diarrhea Home Medications CPAP (Continuous Positive Airway Pressure) 09/14/23 [History Confirmed 10/04/24] Oxygen 09/14/23 [History Confirmed 10/04/24] cyclobenzaprine 5 mg tablet 5 mg PO BID 09/14/23 [History Confirmed 10/04/24] diltiazem HCl 240 mg capsule,extended release 24 hr 240 mg PO DAILY 09/14/23 [History Confirmed 10/04/24] guaifenesin 600 mg tablet, extended release 12 hr (Mucinex) 600 mg PO Q12HR PRN congestion 09/14/23 [History Confirmed 10/04/24] lisinopril 5 mg tablet 5 mg PO DAILY 09/14/23 [History Confirmed 10/04/24] theophylline 400 mg tablet,extended release 24 hr 400 mg PO BID 09/14/23 [History Confirmed 10/04/24] glipizide 10 mg tablet See Rx Instructions .Route .COMPLEX #180 tabs 09/19/23 [Rx Confirmed 10/04/24] semaglutide 0.25 mg or 0.5 mg (2 mg/3 mL) subcutaneous pen injector (Ozempic) See Rx Instructions .Route .COMPLEX #3 mL 10/25/23 [Rx Confirmed 10/04/24] aripiprazole 10 mg tablet See Rx Instructions .Route .COMPLEX #30 tabs 11/14/23 [Rx Confirmed 10/04/24] omeprazole 20 mg capsule,delayed release See Rx Instructions .Route .COMPLEX #30caps 11/14/23 [Rx Confirmed 10/04/24] albuterol sulfate 90 mcg/actuation aerosol inhaler 2 puff inhalation BID 10/04/24 [History Confirmed 10/04/24] alpha-1 proteinase inhib.(hum) 1,000 mg intravenous solution 1,000 mg IV QWEEK 10/04/24 [History Confirmed 10/04/24] aripiprazole 10 mg tablet (Abilify) 10 mg PO DAILY 10/04/24 [History Confirmed 10/04/24] aspirin 81 mg tablet,delayed release 81 mg PO DAILY 10/04/24 [History Confirmed 10/04/24] fluticasone fur. 100 mcg-umeclid 62.5 mcg-vilant 25 mcg inhalat.powder (Trelegy Ellipta) 1 inh inhalation DAILY.0630 10/04/24 [History Confirmed 10/04/24] furosemide 40 mg tablet (Lasix) 40 mg PO DAILY 10/04/24 [History Confirmed 10/04/24] hydrocodone 5 mg-acetaminophen 325 mg tablet 1 tab PO QID 10/04/24 [History Confirmed 10/04/24] ipratropium 18 mcg-albuterol 103 mcg/actuation aerosol inhaler 1 spray inhalation QID 10/04/24 [History Confirmed 10/04/24] metoprolol succinate 25 mg tablet,extended release 24 hr 25 mg PO DAILY 10/04/24[History Confirmed 10/04/24] pravastatin 80 mg tablet 40 mg PO DAILY 10/04/24 [History Confirmed 10/04/24] prednisone 10 mg tablet 20 mg PO DAILY 10/04/24 [History Confirmed 10/04/24] Exam Physical Exam Vital Signs: Temp Pulse Resp BP Pulse Ox O2 Del Method O2 Flow Rate 97.9 F 120 H 32 H 142/88 H 95 Nasal Cannula 4 10/03/24 22:30 10/04/24 01:00 10/04/24 01:00 10/04/24 01:00 10/04/24 01:00 10/04/24 01:00 10/04/24 01:00 Narrative: General: cooperative and slightly uncomfortable Orientation: alert, awake and oriented x3 Head: normal to inspection Neck: normal visual inspection Cardio: no JVD, regular rate, regular rhythm Chest palpation & inspection: normal inspection of the chest Resp Effort & Inspection: , slight pursed lip breathing but able to talk in complete sentences without issue, distant breath sounds Abd: soft, non-tender, non-distended Extremities: Warm well perfused, no edema Results - Hospitalist H&P Lab Results Labs: Laboratory Last Values Corrected WBC 12.7 X10E3/uL (4.1-10.5) H 10/04/24 00:07 Uncorrected WBC Count 13.8 x10E3/uL (4.1-10.5) H 10/04/24 00:07 RBC 7.16 x10E6/uL (3.90-5.60) H 10/04/24 00:07 Hgb 17.8 g/dL (13.0-17.0) H 10/04/24 00:07 Hct 55.3 % (38.8-50.0) H 10/04/24 00:07 MCV 77.2 fl (83.5-101) L 10/04/24 00:07 MCH 24.8 pg (27.5-35.2) L 10/04/24 00:07 MCHC 32.1 g/dL (32.5-35.6) L 10/04/24 00:07 RDW 24.6 % (12.0-14.8) H 10/04/24 00:07 Plt Count 315 x10E3/uL (150-450) 10/04/24 00:07 MPV 8.1 fl (6.6-10.1) 10/04/24 00:07 Neut % (Auto) 74.8 % (.) 10/04/24 00:07 Lymph % (Auto) 11.7 % (.) 10/04/24 00:07 Esmeralda % (Auto) 12.6 % (.) 10/04/24 00:07 Eos % (Auto) 0.2 % (.) 10/04/24 00:07 Baso % (Auto) 0.7 % (.) 10/04/24 00:07 Nucleat RBC Rel Count 0.2 /100 WBC (0-0.5) 10/04/24 00:07 Neut # (Auto) 9.5 x10E3/uL (1.8-7.7) H 10/04/24 00:07 Lymph # (Auto) 1.5 x10E3/uL (1.00-4.8) 10/04/24 00:07 Esmeralda # (Auto) 1.6 x10E3/uL (0.0-0.8) H 10/04/24 00:07 Eos # (Auto) 0.0 x10E3/uL (0.0-0.45) 10/04/24 00:07 Baso # (Auto) 0.1 x10E3/uL (0.0-0.2) 10/04/24 00:07 Monocyte Dist Width 21.22 % (0.00-20.00) H 10/04/24 00:07 Platelet Estimate Normal (Normal) 10/04/24 00:07 Plt Morphology Comment Normal (Normal) 10/04/24 00:07 RBC Morphology N/A 10/04/24 00:07 Polychromasia Moderate 10/04/24 00:07 Hypochromasia Slight 10/04/24 00:07 Anisocytosis Marked 10/04/24 00:07 Microcytosis Marked 10/04/24 00:07 Sample Site Venous 10/04/24 00:09 VBG pH 7.33 (7.32-7.43) 10/04/24 00:09 VBG pCO2 48.8 mmHg (38.0-50.0) 10/04/24 00:09 VBG pO2 26.1 mmHg (35.0-45.0) L 10/04/24 00:09 VBG HCO3 25.2 mmol/L (23.0-29.0) 10/04/24 00:09 VBG Total CO2 26.6 mmol/L (24.0-29.0) 10/04/24 00:09 VBG O2 Saturation 43.8 % (73.0-76.0) L* 10/04/24 00:09 VBG O2 Content 4.9 mmol/L (6.6-9.7) L 10/04/24 00:09 VBG Base Excess -1.5 mmol/L (-3.0-3.0) 10/04/24 00:09 Liter Flow 3 10/04/24 00:09 FiO2 32 % 10/04/24 00:09 Critical Value 10/04/24 00:09 PHA Creatinine Clear 72.23 10/04/24 00:07 Sodium 139 mmol/L (136-145) 10/04/24 00:07 Potassium 5.4 mmol/L (3.5-5.1) H 10/04/24 00:07 Chloride 100 mmol/L (98-107) 10/04/24 00:07 Carbon Dioxide 24.6 mmol/L (21.0-31.0) 10/04/24 00:07 Anion Gap 19.8 mEq/L (6.0-15.0) H 10/04/24 00:07 BUN 15 mg/dL (7-25) 10/04/24 00:07 Creatinine 1.26 mg/dL (0.70-1.30) 10/04/24 00:07 Est GFR (CKD-EPI) > 60.0 mL/Min 10/04/24 00:07 Glucose 206 mg/dL (70-100) H 10/04/24 00:07 Calcium 9.8 mg/dL (8.6-10.3) 10/04/24 00:07 Total Bilirubin 0.5 mg/dl (0.3-1.0) 10/04/24 00:07 AST 15 U/L (13-39) 10/04/24 00:07 ALT 14 U/L (7-52) 10/04/24 00:07 Alkaline Phosphatase 112 U/L (34-104) H 10/04/24 00:07 Total Creatine Kinase 58 U/L (30-223) 10/04/24 00:07 Troponin I High Sens 27 ng/L (0-20) H 10/04/24 00:07 B-Natriuretic Peptide 32.0 pg/mL (5-100) 10/04/24 00:07 Total Protein 8.2 gm/dL (6.4-8.9) 10/04/24 00:07 Albumin 4.7 gm/dL (3.5-5.7) 10/04/24 00:07 Globulin 3.5 gm/dL 10/04/24 00:07 Albumin/Globulin Ratio 1.3 10/04/24 00:07 ABG Interpretation ABG results: 10/04/24 00:09 VBG pH 7.33 VBG pCO2 48.8 VBG pO2 26.1 L VBG HCO3 25.2 VBG Total CO2 26.6 VBG O2 Saturation 43.8 L* VBG Base Excess -1.5 Assessment & Plan Assessment/Plan (1) Acute exacerbation of chronic obstructive pulmonary disease (COPD): (2) Euxsn-9-oogruijceha deficiency: (3) Obstructive sleep apnea (adult) (pediatric): (4) Hypertension: Plan Ricardo Hylton is a 63 y/o M history of COPD with alpha-1 antitrypsin deficiency, on 4 L NC baseline and receives on weekly infusions, HTN, DM II, presented from home with shortness of breath, no chest pain, concern for COPD exacerbation prompting request for medical admission. 1. COPD exacerbation in the setting of alpha-1 antitrypsin deficiency - In the ER, Na 139, K 5.4, Cr 1.26, WBC 12.7, hgb 17.8. CXR with bibasilar opacities. Received solumedrol 40 mg IV x1, duonebs x1. - additional solumedrol 80 mg IV x1 - duonebs qid - resume home guafenescin and theophylline which patient states has been taking - clear liquid diet for now in case of worsening and need for bipap - ceftriaxone and azithromycin for CAP coverage 2. chronic conditions: HTN, DM II - reconcile home med list in am when confirmed with - sliding scale insulin for now Diet: clears Daily Labs: CBC, BMP Lines/Drains: PIV DVT ppx: sqh 5k q8h Code status: Full Status: inpatient IP vs OBS Justification Based on differential dx, clinical care plan, and risk of adverse events, if untreated, in my clinical judgement this patient requires an acute care setting as: INPATIENT because of an expectation of an over 2 midnight stay. Estimated length of stay (# of days): 3 Documented By: Clifton Calderon MD 10/04/24 0136 Signed By: <Electronically signed by Clifton Calderon MD> 10/04/24 0244 [facility] Work Phone: 1(918) 945-365603-20-2025 History and physical [place] [id number] Hospitalist H&P Signed with Sushil Patient: Ricardo Hylton MR#: [id number] : 1960 Acct:[id number] Age/Sex: 63 / M Adm Date: 5 Loc: 3T Room: [address] [place] [address] Type: ADM IN Attending Dr: Clifton Calderon MD Copies to: MD Sarah Watts, [facility]~ ADDENDUM1 Respiratory panel resulted COVID positive, will start remdesivir and dexamethasone given increased O2 needs. Addendum Documented By: Clifton Calderon MD 10/04/24346 Addendum Signed By: 10/04/24346 HPI DATE OF EXAMINATION: 10/04/24 CHIEF COMPLAINT: Shortness of Breath HISTORY OF PRESENT ILLNESS: Ricardo Hylton is a 63 y/o M history of COPD with alpha-1 antitrypsin deficiency, on 4 L NC baseline and receives on weekly infusions, HTN, DM II, presented from home with shortness of breath, no chestpain, concern for COPD exacerbation prompting request for medical admission. On assessment at bedside in the ER, patient is resting in bed, still slightly tachpneic but improved from presentation, states has had progressive shortness of breath for the past 2-3 days until not bearable prompting presentation to ER today. Endorses some fevers, no nausea or vomiting, no sick contacts. In the ER, Na 139, K 5.4, Cr 1.26, WBC 12.7, hgb 17.8. CXR with bibasilar opacities. Received solumedrol 40 mg IV x1, duonebs x1. Review of Systems Review of Systems All other systems reviewed & are negative unless noted below or in HPI [facility] Medical History Obstructive sleep apnea (adult) (pediatric) Hypertension History of left heart catheterization GERD (gastroesophageal reflux disease) Essential hypertension Diabetes type 2, controlled Depression Chronic obstructive pulmonary disease Centrilobular emphysema Anxiety, generalized Xkyeq-1-vbjdfizekpk deficiency Family History Father Cancer Legacy FamHx Problem: Diagnosed with Cancer Family history of lung cancer Social History Smoking Status: Former smoker Tobacco Type: cigarettes Substance Use Type: Alcohol Meds Medications and Allergies Allergies metformin Allergy (Unknown, Verified 10/03/24 22:43) Diarrhea Home Medications CPAP (Continuous Positive Airway Pressure) 09/14/23 [History Confirmed 10/04/24] Oxygen 09/14/23 [History Confirmed 10/04/24] cyclobenzaprine 5 mg tablet 5 mg PO BID 09/14/23 [History Confirmed 10/04/24] diltiazem HCl 240 mg capsule,extended release 24 hr 240 mg PO DAILY 09/14/23 [History Confirmed 10/04/24] guaifenesin 600 mg tablet, extended release 12 hr (Mucinex) 600 mg PO Q12HR PRN congestion 09/14/23[History Confirmed 10/04/24] lisinopril 5 mg tablet 5 mg PO DAILY 09/14/23 [History Confirmed 10/04/24] theophylline 400 mg tablet,extended release 24 hr 400 mg PO BID 09/14/23 [History Confirmed 10/04/24] glipizide 10 mg tablet See Rx Instructions .Route .COMPLEX #180 tabs 09/19/23 [Rx Confirmed 10/04/24] semaglutide 0.25 mg or 0.5 mg (2 mg/3 mL) subcutaneous pen injector (Ozempic) See Rx Instructions .Route .COMPLEX #3 mL 10/25/23 [Rx Confirmed 10/04/24] aripiprazole 10 mg tablet See Rx Instructions .Route .COMPLEX #30 tabs 11/14/23 [Rx Confirmed 10/04/24] omeprazole 20 mg capsule,delayed release See Rx Instructions .Route .COMPLEX #30caps 11/14/23 [Rx Confirmed 10/04/24] albuterol sulfate 90 mcg/actuation aerosol inhaler 2 puff inhalation BID 10/04/24 [History Confirmed 10/04/24] alpha-1 proteinase inhib.(hum) 1,000 mg intravenous solution 1,000 mg IV QWEEK 10/04/24 [History Confirmed 10/04/24] aripiprazole 10 mg tablet (Abilify) 10 mg PO DAILY 10/04/24 [History Confirmed 10/04/24] aspirin 81 mg tablet,delayed release 81 mg PO DAILY 10/04/24 [History Confirmed 10/04/24] fluticasone fur. 100 mcg-umeclid 62.5 mcg-vilant 25 mcg inhalat.powder (Trelegy Ellipta) 1 inh inhalation DAILY.0630 10/04/24 [History Confirmed 10/04/24] furosemide 40 mg tablet (Lasix) 40 mg PO DAILY 10/04/24 [History Confirmed 10/04/24] hydrocodone 5 mg-acetaminophen 325 mg tablet 1 tab PO QID 10/04/24 [History Confirmed 10/04/24] ipratropium 18 mcg-albuterol 103 mcg/actuation aerosol inhaler 1 spray inhalation QID 10/04/24 [History Confirmed 10/04/24] metoprolol succinate 25 mg tablet,extended release 24 hr 25 mg PO DAILY 10/04/24[History Confirmed 10/04/24] pravastatin 80 mg tablet 40 mg PO DAILY 10/04/24 [History Confirmed 10/04/24] prednisone 10 mg tablet 20 mg PO DAILY 10/04/24 [History Confirmed 10/04/24] Exam Physical Exam Vital Signs: Temp Pulse Resp BP Pulse Ox O2 Del Method O2 Flow Rate 97.9 F 120 H 32 H 142/88 H 95 Nasal Cannula 4 10/03/24 22:30 10/04/24 01:00 10/04/24 01:00 10/04/24 01:00 10/04/24 01:00 10/04/24 01:00 10/04/24 01:00 Narrative: General: cooperative and slightly uncomfortable Orientation: alert, awake and oriented x3 Head: normal to inspection Neck: normal visual inspection Cardio: no JVD, regular rate, regular rhythm Chest palpation & inspection: normal inspection of the chest Resp Effort & Inspection: , slight pursed lip breathing but able to talk in complete sentences without issue, distant breath sounds Abd: soft, non-tender, non-distended Extremities: Warm well perfused, no edema Results - Hospitalist H&P Lab Results Labs: Laboratory Last Values Corrected WBC 12.7 X10E3/uL (4.1-10.5) H 10/04/24 00:07 Uncorrected WBC Count 13.8 x10E3/uL (4.1-10.5) H 10/04/24 00:07 RBC 7.16 x10E6/uL (3.90-5.60) H 10/04/24 00:07 Hgb 17.8 g/dL (13.0-17.0) H 10/04/24 00:07 Hct 55.3 % (38.8-50.0) H 10/04/24 00:07 MCV 77.2 fl (83.5-101) L 10/04/24 00:07 MCH 24.8 pg (27.5-35.2) L 10/04/24 00:07 MCHC 32.1 g/dL (32.5-35.6) L 10/04/24 00:07 RDW 24.6 % (12.0-14.8) H 10/04/24 00:07 Plt Count 315 x10E3/uL (150-450) 10/04/24 00:07 MPV 8.1 fl (6.6-10.1) 10/04/24 00:07 Neut % (Auto) 74.8 % (.) 10/04/24 00:07 Lymph % (Auto) 11.7 % (.) 10/04/24 00:07 Esmeralda % (Auto) 12.6 % (.) 10/04/24 00:07 Eos % (Auto) 0.2 % (.) 10/04/24 00:07 Baso % (Auto) 0.7 % (.) 10/04/24 00:07 Nucleat RBC Rel Count 0.2 /100 WBC (0-0.5) 10/04/24 00:07 Neut # (Auto) 9.5 x10E3/uL (1.8-7.7) H 10/04/24 00:07 Lymph # (Auto) 1.5 x10E3/uL (1.00-4.8) 10/04/24 00:07 Esmeralda # (Auto) 1.6 x10E3/uL (0.0-0.8) H 10/04/24 00:07 Eos # (Auto) 0.0 x10E3/uL (0.0-0.45) 10/04/24 00:07 Baso # (Auto) 0.1 x10E3/uL (0.0-0.2) 10/04/24 00:07 Monocyte Dist Width 21.22 % (0.00-20.00) H 10/04/24 00:07 Platelet Estimate Normal (Normal) 10/04/24 00:07 Plt Morphology Comment Normal (Normal) 10/04/24 00:07 RBC Morphology N/A 10/04/24 00:07 Polychromasia Moderate 10/04/24 00:07 Hypochromasia Slight 10/04/24 00:07 Anisocytosis Marked 10/04/24 00:07 Microcytosis Marked 10/04/24 00:07 Sample Site Venous 10/04/24 00:09 VBG pH 7.33 (7.32-7.43) 10/04/24 00:09 VBG pCO2 48.8 mmHg (38.0-50.0) 10/04/24 00:09 VBG pO2 26.1 mmHg (35.0-45.0) L 10/04/24 00:09 VBG HCO3 25.2 mmol/L (23.0-29.0) 10/04/24 00:09 VBG Total CO2 26.6 mmol/L (24.0-29.0) 10/04/24 00:09 VBG O2 Saturation 43.8 % (73.0-76.0) L* 10/04/24 00:09 VBG O2 Content 4.9 mmol/L (6.6-9.7) L 10/04/24 00:09 VBG Base Excess -1.5 mmol/L (-3.0-3.0) 10/04/24 00:09 Liter Flow 3 10/04/24 00:09 FiO2 32 % 10/04/24 00:09 Critical Value 10/04/24 00:09 PHA Creatinine Clear 72.23 10/04/24 00:07 Sodium 139 mmol/L (136-145) 10/04/24 00:07 Potassium 5.4 mmol/L (3.5-5.1) H 10/04/24 00:07 Chloride 100 mmol/L (98-107) 10/04/24 00:07 Carbon Dioxide 24.6 mmol/L (21.0-31.0) 10/04/24 00:07 Anion Gap 19.8 mEq/L (6.0-15.0) H 10/04/24 00:07 BUN 15 mg/dL (7-25) 10/04/24 00:07 Creatinine 1.26 mg/dL (0.70-1.30) 10/04/24 00:07 Est GFR (CKD-EPI) > 60.0 mL/Min 10/04/24 00:07 Glucose 206 mg/dL (70-100) H 10/04/24 00:07 Calcium 9.8 mg/dL (8.6-10.3) 10/04/24 00:07 Total Bilirubin 0.5 mg/dl (0.3-1.0) 10/04/24 00:07 AST 15 U/L (13-39) 10/04/24 00:07 ALT 14 U/L (7-52) 10/04/24 00:07 Alkaline Phosphatase 112 U/L (34-104) H 10/04/24 00:07 Total Creatine Kinase 58 U/L (30-223) 10/04/24 00:07 Troponin I High Sens 27 ng/L (0-20) H 10/04/24 00:07 B-Natriuretic Peptide 32.0 pg/mL (5-100) 10/04/24 00:07 Total Protein 8.2 gm/dL (6.4-8.9) 10/04/24 00:07 Albumin 4.7 gm/dL (3.5-5.7) 10/04/24 00:07 Globulin 3.5 gm/dL 10/04/24 00:07 Albumin/Globulin Ratio 1.3 10/04/24 00:07 ABG Interpretation ABG results: 10/04/24 00:09 VBG pH 7.33 VBG pCO2 48.8 VBG pO2 26.1 L VBG HCO3 25.2 VBG Total CO2 26.6 VBG O2 Saturation 43.8 L* VBG Base Excess -1.5 Assessment & Plan Assessment/Plan (1) Acute exacerbation of chronic obstructive pulmonary disease (COPD): (2) Mohln-4-sapkwicksls deficiency: (3) Obstructive sleep apnea (adult) (pediatric): (4) Hypertension: Plan Ricardo Hylton is a 63 y/o M history of COPD with alpha-1 antitrypsin deficiency, on 4 L NC baseline and receives on weekly infusions, HTN, DM II, presented from home with shortness of breath, no chestpain, concern for COPD exacerbation prompting request for medical admission. 1. COPD exacerbation in the setting of alpha-1 antitrypsin deficiency - In the ER, Na 139, K 5.4, Cr 1.26, WBC 12.7, hgb 17.8. CXR with bibasilar opacities. Received solumedrol 40 mg IV x1, duonebs x1. - additional solumedrol 80 mg IV x1 - duonebs qid - resume home guafenescin and theophylline which patient states has been taking - clear liquid diet for now in case of worsening and need for bipap - ceftriaxone and azithromycin for CAP coverage 2. chronic conditions: HTN, DM II - reconcile home med list in am when confirmed with - sliding scale insulin for now Diet: clears Daily Labs: CBC, BMP Lines/Drains: PIV DVT ppx: sqh 5k q8h Code status: Full Status: inpatient IP vs OBS Justification Based on differential dx, clinical care plan, and risk of adverse events, if untreated, in my clinical judgement this patient requires an acute care setting as: INPATIENT because of an expectation ofan over 2 midnight stay. Estimated length of stay (# of days): 3 Documented By: Clifton Calderon MD 10/04/24 0136 Signed By: 10/04/24 0244 [facility]03-20-2025 Evaluation note* Diagnosis Onset Date Resolution Status Admit Date Acute exacerbation of chroni c obstructive pulmonary disease (COPD) acute October 04, 2024 12:57am Jvhyw-8-vyrpvlllxcu deficiency acute October 04, 2024 12:57am Diabetes type 2, controlled acute October 04, 2024 12:57am Essential hypertension acute [facility] 2024 12:57am Hypertension acute October 04, 2024 12:57am Obstructive sleep apnea (bernardino lt) (pediatric) acute October 04, 2024 12:57am [facility] Work Phone: 1(441) 612-229411-18-2024 NoteFamily Medicine Office/Clinic Note Chief Complaint ent referral HPI Staff [...] medical support in addressing this problem. Your BMIand weight management will be followed at subsequent [...] Previous treatment: None., 06/04/2024 (more content not included)...[facility] HealthComment on above:Result Comment: Electronically Signed By: SARAH TRIVEDI CNP.mitchel\Date and Time Signed: 06/04/24 15:43 [id number] NotePatient Education Immunology Allergic Rhinitis, Adult Allergic rhinitis [...] ??? Atopic dermatitis or eczema. This is meterman (chronic) irritation and swelling of the skin. [...] your medical history, and a physical exam. Yourhealth care provider may check for related conditions, such as: ??? Asthma. ??? [place] eye. This is eye swelling and irritation [...] that block allergy symptoms, such as corticosteroids (anti- inflammatories) andantihistamines. Medicine may be given as a shot, [...] and dust regularly. General instructions ??? Take mgjp-bgs-qbeuwkg and prescription medicines only as told by your provider. ??? Drink enough fluid to keep your pee pale yellow. Where to find more information ??? [place] [employer]: aaaai.org [...] see if the sy (more content not included)...[facility]2024 NotePatient Education Endocrinology Diabetes Mellitus and Exercise Regular [...] an expert trained in diabetes care (certified nuclear medicine technologist) can help you make an activity plan. [...] snack to make sure that your level isabove 100 mg/dL (5.6 mmol/L) before you start [...] are going to be used during exercise. Thismay include: ? Your arms, when you are [...] stroke). Where to find more information ??? [place] [employer] Association: diabetes.org ??? Association of Diabetes Care & Education Specialists: diabeteseducator.org This information is not intended to replace advice given to you by your health care provider. Make sure you discuss any questions you have with your health care provider. Document Revised: 12/22/2022 Document Reviewed: 12/22/2022 [employer] Patient Education ? 2023 [employer].[facility] 08-26-2023 Evaluation note* Encounter Date Diagnosis Assessment Notes Treatment Notes Treatment Clinical Notes Aug, Anxiety, generalized (ICD-10 - F41.1) [employer] Other 01-18-2024 Evaluation note* Encounter Date Diagnosis Assessment Notes Treatment Notes Treatment Clinical Notes Jul, Acute cervical radiculopathy (ICD-10 - M54.12) [employer] Other 12-26-2023 Evaluation note* Encounter Date Diagnosis Assessment Notes Treatment Notes Treatment Clinical Notes Jun, Acute cervical radiculopathy (ICD-10 - M54.12) [employer] Other 12-11-2023 Evaluation note* Encounter Date Diagnosis [...] F41.1) Chronic problem that is stable presently. [employer] Other 12-08-2023 Evaluation note* Encounter Date Diagnosis Assessment Notes Treatment Notes Treatment Clinical Notes Jun, Anxiety, generalized (ICD-10 - F41.1) [employer] Other 11-17-2023 Evaluation note* Encounter Date Diagnosis Assessment Notes Treatment Notes Treatment Clinical Notes May, Acute cervical radiculopathy (ICD-10 - M54.12) [employer] Other 11-14-2023 Evaluation note* Encounter Date Diagnosis Assessment Notes Treatment Notes Treatment Clinical Notes May, Anxiety, generalized (ICD-10 - F41.1) May, Acute cervical radiculopathy (ICD-10 - M54.12) [employer] Other 10-23-2023 Evaluation note* Encounter Date Diagnosis Assessment Notes Treatment Notes Treatment Clinical Notes Apr, Acute cervical radiculopathy (ICD-10 - M54.12) [employer] Other 10-09-2023 Miscellaneous Notes* Telephone Encounter - [...] any questions. Capo Meraz RN, BSN Pre-Lung Line Maintenance Technician [facility]* Encounter Date Diagnosis Assessment Notes Treatment Notes Treatment Clinical Notes Mar, Acute cervical radiculopathy (ICD-10 - M54.12) [facility] Other 08-28-2023 Evaluation note* Encounter Date Diagnosis Assessment Notes Treatment Notes Treatment Clinical Notes Feb, Acute cervical radiculopathy (ICD-10 - M54.12) [employer] Other 08-24-2023 Miscellaneous Notes* Telephone Encounter - Capo Mreaz RN - 03/10/2023 12:04 PM EDT Attempted to reach patient regarding lung transplant referral. He was last seen in 03/2021 and has not been back since. We have not heard from the patient since 10/2021. I was unable to speak with him and unable to leave a message due to his voicemail being full. Capo Meraz RN, BSN Pre-Lung Line Maintenance Technician documented in this encounterHock[facility]08-[facility]-2023 Evaluation note* Encounter Date Diagnosis Assessment Notes Treatment Notes Treatment Clinical Notes Feb, Type 2 diabetes mellitus with hyperglycemia, without long-term current use of insulin (ICD-10 - E11.65) [employer] Other 08-17-2023 Evaluation note* Encounter Date Diagnosis [...] lose weight to improved his severe COPD> [employer] Other 08-17-2023 Evaluation note* Encounter Date Diagnosis [...] lose weight to improve his lung function [employer] Other 07-27-2023 Evaluation note* Encounter Date Diagnosis Assessment Notes Treatment Notes Treatment Clinical Notes Jan, Acute cervical radiculopathy (ICD-10 - M54.12) [employer] Other 06-15-2023 Evaluation note* Encounter Date Diagnosis [...] the zephyr procedure can be started through [place]. Keep appt in January w his office. [facility] [employer] Other 04-28-2023 Evaluation note* Encounter Date Diagnosis Assessment Notes Treatment Notes Treatment Clinical Notes Oct, Acute cervical radiculopathy (ICD-10 - M54.12) [facility] Other 02-16-2023 Evaluation note* Encounter Date Diagnosis Assessment Notes Treatment Notes Treatment Clinical Notes Aug, Chronic obstructive pulmonary disease (ICD-10 - J44.9) Continue present meds including lengthy steroid taper. Continue to followup w Dr. Gonzalez. He has not heard anything lately [facility] [employer] Other 04-27-2022 Miscellaneous Notes* Telephone Encounter - [...] options. [facility] Transplant documented in this encounterHocking [facility]04-20-2022 Miscellaneous Notes* Telephone Encounter - Molly Gan APRN.CNP - 11/04/2021 2:27 PM EDT Patient not in attendance for lung transplant appts on 11/04. Attempted to contact patient to reschedule. VM left requesting call back. Molly Gan, MSN, DIRECTOR MARKET INTELLIGENCE-SYSTEM ADMIN Lung Line Maintenance Technician documented in this encounterHocking [facility] HospitalEvaluation + Plan note Future Appointments Appointment Date:04/24/2024 01:40:00 PM Scheduled Provider:SARAH TRIVEDI CNP [facility]: Open Appointment Date:01/29/2025 01:00:00 PM Scheduled Provider: [facility] Type: Medicare Wellness Subsequent Future Scheduled Tests Laboratory* HCV Antibody [facility] Quant PCR [facility] Future App[facility]ments Appointment Date:01/24/2025 01:20:00 PM Scheduled Provider:SARAH TRIVEDI CNP [facility] Type: Open Appointment Date:01/29/2025 01:00:00 PM Scheduled Provider: Location:[facility] Appointment Type:FM Medicare Wellness Subsequent Diagnostic Tests Pending * HgbA1c 10/25/24 * HCV Antibody RFX to Quant PCR 10/25/24 * PSA Total 10/25/24 [facility] Evaluation + Plan note Future Appointments Appointment Date:01/24/2025 01:20:00 PM Scheduled Provider:SARAH TRIVEDI CNP [facility] Type: Open Appointment Date:01/29/2025 01:00:00 PM Scheduled Provider: [facility] Type:FM Medicare Wellness Subsequent Appointment Date:02/06/2025 11:00:00 AM Scheduled Provider: Location:[facility] MELISSA Hardy Appointment Type:URO Nurse Visit Appointment Date:02/13/2025 11:15:00 AM Scheduled Provider:Joo YIP MD Location:[facility] Appointment Type:URO Office Visit [facility] Evaluation note* Diagnosis Chronic obstructive pulmonary disease, unspecified COPD type (HCC)- Primary Lung transplant candidate documented in this encounter [facility] note* Diagnosis 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 documented in this encounter [facility] noteNo [facility] Other Evaluation note* Diagnosis Onset Date Resolution Status Skin lesion of right arm acu te [facility] Work Phone: Evaluation note* Diagnosis Onset Date Resolution Status Admit Date Acute exacerbation of chroni c obstructive pulmonary disease (COPD) acute October 04, 2024 12:57am Diabetes type 2, controlled acute October 04, 2024 12:57am Essential hypertension acute [facility] 2024 12:57am [facility] Work Phone: History general Narrative - Reported* Type Description Date Medical History Hypertension Medical History COPD Medical History RANCHO Medical History Centrilobular Emphysema Medical History Obesity Medical History Alpha 1 Antitrypsin Deficieny Medical History Depression Medical History Diabetes Type 2 Medical History GERD Medical History Essential Hypertension. Surgical History heart catheterization, no stent s Hospitalization History SEE ABOVE [employer] Other Hospital course Narrative No data available for this section [facility] No data available for this section [facility] No data available for this section [facility] Summary Purpose Family History No [...] for Visit Skin lesion of right arm Chief Complaint Admit Date Shortness of Breath October 04, 2024 12: 57am Reason for Visit Admit Date Acute exacerbation of chroni c obstructive pulmonary disease (COPD) October 04, 2024 12:57am Diabetes type 2, controlled October 04, 2024 12:57am Essential hypertension October 04, 2024 12:57am Reason for Visit Admit Date Acute exacerbation of chroni c obstructive pulmonary disease (COPD) October 04, 2024 12:57am Wdudh-3-bcstjaotenq deficiency September 12:57am Diabetes type 2, controlled October 04, 2024 12:57am Essential hypertension October 04, 2024 12:57am Hypertension October 04, 2024 12: 57am Obstructive sleep apnea (adult) (pediatr ic) October 04, 2024 12:57am Additional Source Comments (unrecognized sect ion and content) No Status Records FoundNo Status Records FoundNo Status Records FoundNo Status Records FoundNo Status Records FoundNo Status Records FoundNo Status Records FoundNo Status Records FoundNo Status Records FoundNo Status Records FoundNo Status Records Found INFORMATION SOURCE (unrecogn ized section and content) DATE CREATED AUTHOR 03/17/2019 [facility] DATE CREATED AUTHOR AUTHOR'S ORGANIZ ATION 10/06/2022 [facility] DATE CREATED AUTHOR AUTHOR'S ORGANIZ ATION 04/25/2023 [facility] DATE CREATED AUTHOR AUTHOR'S ORGANIZ ATION 10/19/2024 [facility] ysician Group DATE CREATED AUTHOR AUTHOR'S ORGANIZ ATION 10/28/2024 [facility] DATE CREATED AUTHOR AUTHOR'S ORGANIZ ATION 11/29/2024 [facility] DATE CREATED AUTHOR AUTHOR'S ORGANIZ ATION 01/28/2025 [facility] DATE CREATED AUTHOR AUTHOR'S ORGANIZ ATION 01/28/2025 [facility] Source Comments (unrecognize d section and content) In the event this informatio n is protected by the Federal Confidentiality of Alcohol and Drug Abuse Patient Records regulations: The Federal rules restrict any use of the information to criminally investigate or prosecute any alcohol or drug abuse patient.[facility] the event this information is protected by the Federal Confidentiality of Alcohol and Drug Abuse Patient Records regulations: The Federal rules restrict any use of the information to criminally investigate or prosecute any alcohol or drug abuse patient.[facility] the event this information is protected by the Federal Confidentiality of Alcohol and Drug Abuse Patient Records regulations: The Federal rules restrict any use of the information to criminally investigate or prosecute any alcohol or drug abuse patient.[facility] the event this information is protected by the Federal Confidentiality of Alcohol and Drug Abuse Patient Records regulations: The Federal rules restrict any use of the information to criminally investigate or prosecute any alcohol or drug abuse patient.[facility] the event this information is protected by the Federal Confidentiality of Alcohol and Drug Abuse Patient Records regulations: The Federal rules restrict any use of the information to criminally investigate or prosecute any alcohol or drug abuse patient.[facility] the event this information is protected by the Federal Confidentiality of Alcohol and Drug Abuse Patient Records regulations: The Federal rules restrict any use of the information to criminally investigate or prosecute any alcohol or drug abuse patient.[facility] Care Teams (unrecognized sec tion and content) Folder Stitcher Operator Relationship Specialty Start Date End Date Bryon Cowart MD [address] [place] [address] PCP - General Family Practice 03/12/20 Vanda oGnzalez DO Referring Pulmonary and Critical Care Medicine 03/12/20 Folder Stitcher Operator Relationship Specialty Start Date End Date Bryon Cowart MD [address] [place] [address] PCP - General Family Practice 03/12/20 Vanda Gonzalez DO Referring Pulmonary and Critical Care Medicine 03/12/20 Folder Stitcher Operator Relationship Specialty Start Date End Date Bryon Cowart MD [address] [place] [address] PCP - General Family Practice 03/12/20 Vanda Gonzalez DO Referring Pulmonary and Critical Care Medicine 03/12/20 Folder Stitcher Operator Relationship Specialty Start Date End Date Bryon Cowart MD [address] [place] [address] PCP - General Family Medicine 03/12/20 Vanda Gonzalez DO [address] [place] [address] Referring Pulmonary and Critical Care Medicine 03/12/20 [...] November 11, 2023 End: November 11, 2023 Team Status: Active Member Role Status Dates Sarah Trivedi [facility] Primary Care Provider Active Team Status: Active Member Role Status Dates Rubén Pina DO Attending Provider Active Sta rt: August 20, 2024 Team Status: Active Member Role Status Dates Pranay Bai Jr, MD Emergency Provider Active Start: October 04, 2024 Sarah Trivedi [facility] Primary Care Provider Active Start: October 04, 2024 Clifton Calderon MD Admit Provider, Atte nding Provider Active Start: October 04, 2024 Team Status: Inactive Member Role Status Dates Pranay Bai Jr, MD Emergency Provider Active Start: October 04, 2024 End: October 05, 2024 Sarah Trivedi [facility] Primary Care Provider Active Start: October 04, 2024 End: October 05, 2024 Clifton Calderon MD Admit Provider Active Start: 2024 End: October 05, 2024 Eden Greenwood MD Attending Provider Active St art: October 04, 2024 End: October 05, 2024 Reason for Visit (unrecogniz ed section and [...] BE BASED ON THE PRIMARY CLINICAL RECORDS. [employer] provides no warranty or guarantee of the accuracy or completeness of information in this document.
--- OUTSIDE RECORDS SUMMARY | 2025-02-03 08:43 | XMS_ITS | CCD ---
Author Organization Unknown Care Team Providers Care Stereotype Caster Name Role Phone Unavailable Primary Care Provider Unavailabl e Unavailable Chronic Care Management Unavaila ble Summary Purpose DataExchange Insurance Providers Payer name Policy type / Coverage type Covered libertarian ID Effective Begin Date Effective End Date [facility] [id number] Unknown Unknown Family History Family History data not found Medication Administered No Medication Administered data Reason For Visit No Reason For Visit data Medical Equipment No Medical Equipment data Advance Directives No Advance Directive data
--- OUTSIDE RECORDS SUMMARY | 2025-02-03 08:43 | XMS_ITS | CCD ---
Author Organization Unknown Care Team Providers Care Sprinkling Truck Driver Name Role Phone Unavailable Primary Care Provider Unavailabl e Unavailable Chronic Care Management Unavaila ble Summary Purpose DataExchange Insurance Providers Payer name Policy type / Coverage type Covered constitution party ID Effective Begin Date Effective End Date [facility] [place] [id number] Unknown Unknown Family History Family History data not found Medication Administered No Medication Administered data Reason For Visit No Reason For Visit data Medical Equipment No Medical Equipment data Advance Directives No Advance Directive data
--- OUTSIDE RECORDS SUMMARY | 2025-02-05 15:18 | XMS_ITS | Encounter Summary ---
Author Organization [facility] Address [address] [place] [address] Care Team Providers Care Director Of Housing Name Role Phone Janet Benavides MD Primary Care Provider [phone] Douglas Pacheco DO Unavailable [phone] Source Comments In the event this information is protected by the Federal Confidentiality of Alcohol and Drug AbusePatient Records regulations: The Federal rules restrict any use of the information to criminally investigate or prosecute any alcohol or drug abuse patient.[facility] Encounter Details Date Type Department Care Team (Late st Contact Info) Description 12/23/2021 Patient Msg Transplant Center [address] [phone] Provider, [facility] Transplant Appointments Social History Tobacco Use Types Packs/Day Years Used Date Smoking Tobacco: Never Assessed Area Deprivation Index Answer Date Chirag rded National Score (1-100), lower number is lower ri sk Not on file 03/18/2021 State Score (1-10), lower number is lower risk N ot on file 03/18/2021 Data from: https://www.neighborhoodatlas.medicine.[facility].edu/. Last address used for calculation Not [...] 03/11/2025 12:15 PM EDT Procedure Pulmonary Medicine [address] [place] [address] Stage 4 copd 03/11/2025 12:45 PM EDT Procedure Pulmonary Medicine [id number] [place] [address] Stage 4 copd 03/11/2025 1:45 PM EDT Office Visit Pulmonary Medicine [id number] [place] [address] [place] [address] [place] [address] Stage 4 copd documented as of this encounter Visit Diagnoses Not on filedocumented in this encounter Care Teams Director Of Housing Relationship Specialty Start Date End Date Janet Benavides MD [address] [place] [address] PCP - General Family Medicine 03/12/20 Douglas Pacheco DO [address] [place] [address] Referring Pulmonary and Critical Care Medicine 03/12/20 documented as of this encounter
--- OUTSIDE RECORDS SUMMARY | 2025-02-05 15:18 | XMS_ITS | Encounter Summary ---
Author Organization [facility] Address [facility] [place] [address] Care Team Providers Care Security Assurance Specialist Name Role Phone Janet Benavides MD Primary Care Provider [phone] Douglas Pacheco DO Unavailable [phone] Source Comments In the event this information is protected by the Federal Confidentiality of Alcohol and Drug AbusePatient Records regulations: The Federal rules restrict any use of the information to criminally investigate or prosecute any alcohol or drug abuse patient.[facility] Reason for Visit * Reason Comments chart prep/review for OPD 11/04 Encounter Details Date Type Department Care Team (Late st Contact Info) Description 11/03/2021 Abstract Pulmonary Medicine [address] [address] Molly Gan APRN.FAMILY SUPPORT COORDINATOR [address] [place], [place] [phone] chart prep/review for OPD 11/04 Social History Tobacco Use Types Packs/Day Years Used Date Smoking Tobacco: Never Assessed Area Deprivation Index Answer Date Chirag rded National Score (1-100), lower number is lower ri sk Not on file 03/18/2021 State Score (1-10), lower number is lower risk N ot on file 03/18/2021 Data from: https://www.neighborhoodatlas.medicine.[facility] [place]/. Last address used for calculation Not [...] 03/11/2025 12:15 PM EDT Procedure Pulmonary Medicine [address] [place] [address] Stage 4 copd 03/11/2025 12:45 PM EDT Procedure Pulmonary Medicine [id number] [place] [address] Stage 4 copd 03/11/2025 1:45 PM EDT Office Visit Pulmonary Medicine [address] [place] [address] [place] [address] [place] [address] Stage 4 copd documented as of this encounter Visit Diagnoses Not on filedocumented in this encounter Care Teams Security Assurance Specialist Relationship Specialty Start Date End Date Janet Benavides MD [address] [place] [address] PCP - General Family Medicine 03/12/20 Douglas Pacheco DO [address] [place] [address] Referring Pulmonary and Critical Care Medicine 03/12/20 documented as of this encounter
--- OUTSIDE RECORDS SUMMARY | 2025-02-05 15:18 | XMS_ITS | Clinical Summary ---
Author Organization [facility] Address [address] [place] [address] Phone Care Team Providers Care Veneer Taper Name Role Phone Unavailable Primary Care Provider [...]
--- OUTSIDE RECORDS SUMMARY | 2025-02-05 15:18 | XMS_ITS | Clinical Summary ---
Author Organization [facility] Address [address] [place] [address] Care Team Providers Care Director Of Community Center Name Role Phone Janet Benavides MD Primary Care Provider [phone] Douglas Pacheco DO Unavailable [phone] Allergies Active Allergy Reactions Criticality Noted Date [...] mg by mouth twice daily. 1 Active nwxyd-9-xijnhg nase inhibitor (Human) 1,000 mg in water [...] 03/25/2021 Chronic respiratory failure with hypoxia 021 Wxkda-1-ianucrtmkaa 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/2021 Essential hypertension 02/14/2019 Chronic obstructive pulmonary disease 01/17/2019 Social History Tobacco Use Types Packs/Day Years Used Date Smoking Tobacco: Never Assessed Area Deprivation Index Answer Date Chirag rded National Score (1-100), lower number is lower ri sk Not on file 03/18/2021 State Score (1-10), lower number is lower risk N ot on file 03/18/2021 Data from: https://www.neighborhoodatlas.medicine.[facility].edu/. Last address used for calculation Not on [...] 03/11/2025 12:15 PM EDT Procedure Pulmonary Medicine [address] [place] [address] Stage 4 copd 03/11/2025 12:45 PM EDT Procedure Pulmonary Medicine [address] [place] [address] Stage 4 copd 03/11/2025 1:45 PM EDT Office Visit Pulmonary Medicine [id number] [place] [address] [place] [address] [place] [address] Stage 4 copd Health Maintenance Due Date [...] - PPSV23) 07/05/2018 05/10/2018 Covid-19 Vaccine ( - season) 2024 Diabetes Screening 03/24/2024 03/24/2021 Advance [...] of breath Lung transplant candidate Bone disorder correction (current) use of systemic steroids Chronic fatigue SOB (shortness of breath) Centrilobular emphysema (HCC) *HEP C AB Routine 03/24/2021 3:44 PM EDT Shortness of breath Lung transplant candidate 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) use of systemic steroids Chronic fatigue SOB (shortness of breath) Centrilobular emphysema (HCC) COMPREHENSIVE METABOLIC PANEL Routine 03/24/2021 3:44 PM EDT Shortness of breath Lung transplant candidate 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) use of systemic steroids Chronic fatigue SOB (shortness of breath) Centrilobular emphysema (HCC) LIPID PANEL, FASTING Routine 03/24/2021 3:44 PM EDT Shortness of breath Lung transplant candidate Bone disorder correction (current) use of systemic steroids Chronic fatigue SOB (shortness of breath) Centrilobular emphysema (HCC) from Last 3 Months or Most Recently Relevant to Health Maintenance Results * HIV 1 2 COMBO(AG/AB),WITH REFLEX TO DIFFERENTIATION (03/24/2021 3:44 PM EDT) HIV 12 Combo (Ag/Ab) Non Reactive Non Reactive 03/24/2021 6:36 PM EDT [facility] HIV-1/2 AB Test Not Indicated 03/24/2021 6:36 PM EDT [facility] HIV Interpretation Negative 03/24/2021 6:36 PM EDT [facility] Comment: No evidence of HIV-1 or HIV-2 infection. Should recent infection be suspected, repeat testing may be considered 2-3 weeks after this draw. HIV Information: [place] Rev. Code 3701.243(E): This information has been [...] Carol Ann Ybarra DO LABORATORY Final Result [facility] [address] [facility] [place] [address] [facility] [address] [place] [address] * (ABNORMAL) LIPID PANEL BASIC (03/24/2021 3:44 PM EDT) [facility] Cholesterol, Total 220(H) <200 mg/dL 03/24/2021 6:37 PM EDT [facility] Comment: <200 mg/dL, Desirable 200-239 mg/dL, Borderline high >239 mg/dL, High Triglyceride 244(H) <150 mg/dL 03/24/2021 6:37 PM EDT [facility] Comment: <150 mg/dL, Normal 150-199 mg/dL, Borderline high 200-499 mg/dL, High >499 mg/dL, Very high HDL Cholesterol 99 >39 mg/dL 6:37 PM EDT [facility] Comment: 40-59 mg/dL, Acceptable >59 mg/dL, High: Negative risk factor for coronary heart disease <40 mg/dL, Low: Positive risk factor for coronary heart disease LDL Cholesterol, Calculated 72 <100 mg/dL 03/24/2021 6:37 PM EDT [facility] Comment: <100 mg/dL, Optimal 100-129 mg/dL, Near optimal/above optimal 130-159 mg/dL, Borderline high 160-189 mg/dL, High >189 mg/dL, Very high Secondary prevention optimal LDL Cholesterol levels are recommended to be < 70 mg/dL Non HDL Cholesterol 121 <130 mg/dL 03/24/2021 6:37 PM EDT [facility] Comment: <130 mg/dL, Optimal 130-159 mg/dL, Near optimal/above optimal 160-189 mg/dL, Borderline high 190-219 mg/dL, High >219 mg/dL, Very high Secondary prevention optimal non HDL Cholesterol levels are recommended to be < 100 mg/dL Fasting Time Unknown hrs 03/24/2021 6:37 PM EDT [facility] VLDL Cholesterol 49(H) <30 mg/dL 03/24/20 6:37 PM EDT [facility] TC:HDL Ratio 2.22 <5.10 03/24/2021 6:37 PM EDT [facility] LDL:HDL Ratio 0.73 <2.54 03/24/2021 6:37 PM EDT [facility] Comment: Reference: 1. National Cholesterol Education Program ATP III Guideline At-A-Glance Quick Desk Reference: National Heart, Lung, and Blood [place]. National Institutes of Health. 2001: NIH Publication No. 01-3305. 2. An International Atherosclerosis Society position paper: global recommendations for the management of dyslipidemia: executive summary, Atherosclerosis. 2014: 232(2):410-413. Blood BLOOD SPECIMEN / Unknown 03/24/2021 3:44 PM EDT 03/24/2021 3:46 PM EDT us Carol Ann Ybarra DO LABORATORY Final Result [facility] [address] [place] [address] [facility] [address] [place] [address] * (ABNORMAL) HEP REMOTE PANEL BL (03/24/2021 3:44 PM EDT) Hep B Core Ab, Total Negative Negative 03/24/2021 6:57 PM EDT [facility] Hep C Antibody IA Negative Negative 03/24/2021 6:58 PM EDT [facility] HBsAg Negative Negative 03/24/2021 6:57 PM EDT [facility] Hep B Surface Ab, Qual Positive(A) Negative 03/24/2021 6:57 PM EDT [facility] Comment: These results are consistent with previous exposure and/or immunity to the hepatitis B virus antigen. Blood BLOOD SPECIMEN / Unknown 03/24/2021 3:44 PM EDT 03/24/2021 3:46 PM EDT Carol Ann Ybarra DO LABORATORY Final Result [facility] [address] [place] [address] [facility] [address] [place] [address] * COMP METABOLIC PANEL (03/24/2021 3:44 PM EDT) Protein, Total 6.9 6.3 - 8.0 g/dL 03/24/2021 6:37 PM EDT [facility] Albumin 4.3 3.9 - 4.9 g/dL 03/24/2021 6:37 PM EDT [facility] Calcium 9.5 8.5 - 10.2 mg/dL 03/24/2021 6:37 PM EDT [facility] Bilirubin, Total 0.3 0.2 - 1.3 mg/dL 03/24/2021 6:37 PM EDT [facility] Alkaline Phosphatase 85 38 - 113 U/L 03/24/2021 6:37 PM EDT [facility] AST 17 14 - 40 U/L 03/24/2021 6:37 PM EDT [facility] Glucose 93 74 - 99 mg/dL 03/24/2021 6:37 PM EDT [facility] Comment: The [place] Diabetes Association (ADA) provides guidance for cutoff [...] Standards of Medical Care in Diabetes 2016, [place] Diabetes Association. Diabetes Care. 2016.39(Suppl 1). BUN 13 9 - 24 mg/dL 03/24/2021 6:37 PM EDT [facility] Creatinine 0.93 0.73 - 1.22 mg/dL 03/24/2021 6:37 PM EDT [facility] Sodium 139 136 - 144 mmol/L 03/24/2021 6:37 PM EDT [facility] Potassium 4.2 3.7 - 5.1 mmol/L 03/24/2021 6:37 PM EDT [facility] Chloride 102 97 - 105 mmol/L 03/24/2021 6:37 PM EDT [facility] CO2 25 22 - 30 mmol/L 03/24/2021 6:37 PM EDT [facility] Anion Gap 12 9 - 18 mmol/L 03/24/2021 6:37 PM EDT [facility] ALT 14 10 - 54 U/L 03/24/2021 6:37 PM EDT [facility] eGFR- >60 03/24/2021 6:37 PM EDT [facility] eGFR-All Other Races >60 . 03/24/2021 6:37 PM EDT [facility] Comment: eGFR (Estimated GFR) Units of [...] Carol Ann Ybarra DO LABORATORY Final Result [facility] [address] [place] [address] [facility] [address] [place] [address] from Last 3 Months or Most Recently Relevant to Health Maintenance Insurance [facility] DUAL COMPLETE HMO POS SNP Care Teams Director Of Community Center Relationship Specialty Start Date End Date Janet Benavides MD [address] [place] [address] PCP - General Family Medicine 03/12/20 Douglas Pacheco DO [address] [place] [address] Referring Pulmonary and Critical Care Medicine 03/12/20
--- OUTSIDE RECORDS SUMMARY | 2025-02-05 15:18 | XMS_ITS | Encounter Summary ---
Author Organization [facility] Address [address] [place] [address] Care Team Providers Care Mechanical Process Engineer Name Role Phone Janet Benavides MD Primary Care Provider [phone] Douglas Pacheco DO Unavailable [phone] Source Comments In the event this information is protected by the Federal Confidentiality of Alcohol and Drug AbusePatient Records regulations: The Federal rules restrict any use of the information to criminally investigate or prosecute any alcohol or drug abuse patient.[facility] Encounter Details Date Type Department Care Team (Late st Contact Info) Description 11/26/2021 Patient Msg Transplant Center [address] [phone] Provider, [facility]cf Voice Mail Social History Tobacco Use Types Packs/Day Years Used Date Smoking Tobacco: Never Assessed Area Deprivation Index Answer Date Chirag rded National Score (1-100), lower number is lower ri sk Not on file 03/18/2021 State Score (1-10), lower number is lower risk N ot on file 03/18/2021 Data from: https://www.neighborhoodatlas.medicine.[facility].edu/. Last address used for calculation Not [...] 03/11/2025 12:15 PM EDT Procedure Pulmonary Medicine [address] [place] [address] Stage 4 copd 03/11/2025 12:45 PM EDT Procedure Pulmonary Medicine [id number] [place] [address] Stage 4 copd 03/11/2025 1:45 PM EDT Office Visit Pulmonary Medicine [address] [place] [address] [place] [address] [place] [address] Stage 4 copd documented as of this encounter Visit Diagnoses Not on filedocumented in this encounter Care Teams Mechanical Process Engineer Relationship Specialty Start Date End Date Janet Benavides MD [address] [place] [address] PCP - General Family Medicine 03/12/20 Douglas Pacheco DO [address] [place] [address] Referring Pulmonary and Critical Care Medicine 03/12/20 documented as of this encounter
--- OUTSIDE RECORDS SUMMARY | 2025-02-05 15:18 | XMS_ITS | Clinical Summary ---
Author Organization [facility] Address [address] [place] [address] Care Team Providers Care Senior Data Developer Name Role Phone Unavailable Primary Care Provider Unavailabl e Social History Tobacco Use Types Packs/Day Years Used Date Smoking Tobacco: Never Assessed Sex and Gender Information Value Date Recorded Sex Assigned at Not on file Legal Sex Male 7:15 PM EDT Gender Identity Not on file Sexual Orientation Not on file Plan of Treatment Not on file
--- OUTSIDE RECORDS SUMMARY | 2025-02-05 15:18 | XMS_ITS | Clinical Summary ---
Author Organization [facility] Address [address] [place] [address] Care Team Providers Care Oxidized Finish Plater Name Role Phone Zayra Peterson BLEACHER SULFITE PULP-C Primary Care Provider [phone] Allergies Active Allergy Reactions Criticality Noted Date [...] 01/24/2025 History of COVID-19 01/24/2025 Leukocytosis 01/24/2025 longterm (current) use of systemic steroids 04/2025 longterm current use of inhaled steroid 025 terminologist current use of insulin 01/24/2025 Obesity 01/24/2025 Bipolar 1 disorder 03/25/2021 Depression 03/25/2021 GERD (gastroesophageal reflux disease) Obstructive sleep apnea syndrome 03/25/2021 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 Chronic respiratory failure with hypoxia 021 Left ventricular systolic dysfunction 12/23/2020 Diabetes mellitus 02/14/2019 Essential hypertension 02/14/2019 Coronary atherosclerosis 01/17/2019 Chest pain 12/04/2018 Dyspnea 12/04/2018 Encounters Date Type Department Care Team Description 01/24/2025 2:00 PM EDT Office Visit [address] [address] Calli Devlin MD Chronic respiratory failure with hypoxia (CMS/HCC) (Primary Dx); Rdalz-9-izjtffyubbl deficiency (CMS/HCC); Essential hypertension; terminologist current use of inhaled steroid; SVT (supraventricular tachycardia); Non-ischemic cardiomyopathy (CMS/HCC) 01/24/2025 Orders Only [facility] [address] [facility] [place] [address] Vianney Davis MA SVT (supraventricular tachycardia) (Primary Dx); PIKE (dyspnea on exertion) 01/24/2025 Refill [facility] [address] [facility] [place] [address] Racheal Joshi MA 01/24/2025 Orders Only [facility] [address] [facility] [place] [address] Racheal Joshi MA Tachycardia (Primary Dx) 01/23/2025 Orders Only [facility] [address] [place] [phone] Provider, MD [place] from Last 3 Months [...] Description 03/13/2025 1:00 PM EDT Office Visit [facility] [address] [facility] [place] [address] Calli Devlin MD [address] [facility] [place] [address] Health Maintenance Due Date Last [...] patient's age to complete this topic Insurance [facility] Care Teams Oxidized Finish Plater Relationship Specialty Start Date End Date Zayra Peterson FNP-C [address] [place] [address] PCP - General Nurse Practitioner 01/24/25
--- OUTSIDE RECORDS SUMMARY | 2025-02-05 15:19 | XMS_ITS | Encounter Summary ---
Author Organization [facility] Address [address] [place] [address] Care Team Providers Care Loan Operations Specialist Name Role Phone Zayra Peterson TALENT RECRUITER-C Primary Care Provider [phone] Reason for Referral * Imaging (Routine) - Pending Review Specialty Diagnoses / Procedures Referred By Anthony gomez Referred To Contact Cardiology Diagnoses SVT (supraventricular tachycardia) PIKE (dyspnea on exertion) Procedures Transthoracic echo (TTE) complete Calli Devlin MD [address] [facility] [address] [facility] [place] [place] [address] Phone: tel: fax: Referral ID Status Reason Start Date Expiration Date Visits Requested Visits Authorized [id number] Pending Review Perform Procedure 01/24/2025 01/24/2026 1 1 Encounter Details Date Type Department Care Team (Late Contact Info) Description 01/24/2025 Orders Only [facility] [address] [place] [phone] Vianney Davis MA SVT (supraventricular tachycardia) (Primary [...] Description 03/13/2025 1:00 PM EDT Office Visit [facility] [address] [place] [address] Calli Devlin MD [address] [facility] [place] [address] Scheduled Orders Name Type Priority Associated Diagnoses Order Schedule Transthoracic echo (TTE) complete Echocardiography Routine SVT (supraventricular tachycardia) PIKE (dyspnea on exertion) Expected: 01/24/2025 (Approximate), Expires: 01/24/2027 documented as of this encounter Visit Diagnoses Diagnosis SVT (supraventricular tachycardia)- Primary Other specified cardiac dysrhythmias PIKE (dyspnea on exertion) Other dyspnea and respiratory abnormality documented in this encounter Care Teams Loan Operations Specialist Relationship Specialty Start Date End Date Zayra Peterson FNP-C [address] [place] [address] PCP - General Nurse Practitioner 01/24/25 documented as of this encounter
--- OUTSIDE RECORDS SUMMARY | 2025-02-05 15:19 | XMS_ITS | Encounter Summary ---
Author Organization [facility] Address [address] [place] [address] Care Team Providers Care Mainspring Winder And Oiler Name Role Phone Janet Benavides MD Primary Care Provider [phone] Douglas Pacheco DO Unavailable [phone] Source Comments In the event this information is protected by the Federal Confidentiality of Alcohol and Drug AbusePatient Records regulations: The Federal rules restrict any use of the information to criminally investigate or prosecute any alcohol or drug abuse patient.[facility] Reason for Visit * Reason Comments New Eval Chart Prep Encounter Details Date Type Department Care Team (Late st Contact Info) Description 03/18/2021 Abstract Pulmonary Medicine [address] [place] [address] Idalmis Bai RN New Eval Chart Prep Social History Tobacco Use Types Packs/Day Years Used Date Smoking Tobacco: Never Assessed Area Deprivation Index Answer Date Chirag rded National Score (1-100), lower number is lower ri sk Not on file 03/18/2021 State Score (1-10), lower number is lower risk N ot on file 03/18/2021 Data from: https://www.neighborhoodatlas.medicine.[facility].edu/. Last address used for calculation Not [...] 03/11/2025 12:15 PM EDT Procedure Pulmonary Medicine [id number] [place] [address] Stage 4 copd 03/11/2025 12:45 PM EDT Procedure Pulmonary Medicine [id number] [place] [address] Stage 4 copd 03/11/2025 1:45 PM EDT Office Visit Pulmonary Medicine [id number] [place] [address] [place] [address] [place] [address] Stage 4 copd documented as of this encounter Visit Diagnoses Not on filedocumented in this encounter Care Teams Mainspring Winder And Oiler Relationship Specialty Start Date End Date Janet Benavides MD [address] [place] [phone] PCP - General Family Medicine 03/12/20 Douglas Pacheco DO [address] [place] [phone] Referring Pulmonary and Critical Care Medicine 03/12/20 documented as of this encounter
--- OUTSIDE RECORDS SUMMARY | 2025-02-05 15:19 | XMS_ITS | Encounter Summary ---
Author Organization [facility] Address [address] [place] [address] Care Team Providers Care Network Support Technician Name Role Phone Zayra Peterson STORE ASSISTANT-C Primary Care Provider [phone] Encounter Details Date Type Department Care Team (Late st Contact Info) Description 01/23/2025 Orders Only [address] [address] ProviderSalina MD [address] [place] [address] Social History Tobacco Use Types Packs/Day [...] Description 03/13/2025 1:00 PM EDT Office Visit [address] [address] Calli Devlin MD [address] [facility] [address] [facility] [place] [place] [address] documented as of this encounter Procedures Procedure Name Priority Date/Time Associated Diagnosis Comments PULMONARY FUNCTION TESTING Routine 11/14/2023 1:05 PM EDT documented in this encounter Results * Pulmonary function testing (11/14/2023 1:05 PM EDT) Anatomical Region Laterality Modality Other us Historical Provider PFT ORDERABLES Final Res ult documented in this encounter Visit Diagnoses Not on filedocumented in this encounter Care Teams Network Support Technician Relationship Specialty Start Date End Date Zayra Peterson FNP-C [address] [place] [address] PCP - General Nurse Practitioner 01/24/25 documented as of this encounter
--- OUTSIDE RECORDS SUMMARY | 2025-02-05 15:19 | XMS_ITS | Encounter Summary ---
Author Organization [facility] Address [address] [place] [address] Care Team Providers Care Environmental Services Manager Name Role Phone Zayra Peterson-[place] Primary Care Provider [phone] Reason for Visit * Reason Onset Date Comments Med Refill 01/24/2025 Encounter Details Date Type Department Care Team (Late st Contact Info) Description 01/24/[address] [address] Racheal Joshi MA Social History [...] Description 03/13/2025 1:00 PM EDT Office Visit [address] [address] Calli Devlin MD [address] [facility] [address] [facility] [place] [address] documented as of this encounter Visit Diagnoses Not on filedocumented in this encounter Care Teams Environmental Services Manager Relationship Specialty Start Date End Date Zayra Peterson FNP-C [address] [place] [address] PCP - General Nurse Practitioner 01/24/25 documented as of this encounter
--- OUTSIDE RECORDS SUMMARY | 2025-02-05 15:19 | XMS_ITS | Encounter Summary ---
Author Organization [facility] Address [address] [place] [address] Care Team Providers Care Railroad Baggage Porter Name Role Phone Zayra Peterson HAULING CONTRACTOR-C Primary Care Provider [phone] Reason for Referral * Cardiac Stress Testing (Routine) - Pending Review Specialty Diagnoses / Procedures Referred By Anthony gomez Referred To Contact Cardiology Diagnoses Tachycardia Procedures Cardiac event monitor Calli Devlin MD [address] [facility] [address] [facility] [place] [address] Phone: tel: fax: Referral ID Status Reason Start Date Expiration Date V isits Requested Visits Authorized [id number] Pending Review 01/24/2025 01/24/2026 1 1 Encounter Details Date Type Department Care Team (Late st Contact Info) Description 01/24/2025 Orders Only [facility] [address] [place] [address] Racheal Joshi MA Tachycardia (Primary [...] Description 03/13/2025 1:00 PM EDT Office Visit [facility] [address] [place] [address] Calli Devlin MD [address] [facility] [place] [phone] Scheduled Orders Name Type Priority Associated Diagnoses Orde r Schedule Cardiac event monitor Cardiac Services Routine Tachycardia Expected: 01/24/2025 (Approximate), Expires: 01/24/2027 documented as of this encounter Visit Diagnoses Diagnosis Tachycardia- Primary Unspecified tachycardia documented in this encounter Care Teams Railroad Baggage Porter Relationship Specialty Start Date End Date Zayra Peterson FNP-C [address] [place] [address] PCP - General Nurse Practitioner 01/24/25 documented as of this encounter
--- OUTSIDE RECORDS SUMMARY | 2025-02-05 15:20 | XMS_ITS | Patient Health Record ---
Author Organization [facility] [place] Address [address] [place] [address] Care Team Providers Care Ultrasonic Cleaner Name Role Phone Dali Blue Primary Care Provider Ludivina vailakim Douglas Pacheco Unavailable [phone] Allergies Allergen (clinical drug ingredient) Drug/Non Drug Allergy documented on EMR Reaction Allergy Type Onset Date Status metformin Metformin diarrhea Drug Allergy Active Results Component Value Reference Range Notes CBC AUTO DIFF Reviewed date:04/29/2024 02:51:35 PM Interpretation: Performing Lab: Notes/Report: [facility] , White Blood Count 9.9 4.0-11.0 10 [...] 3/uL Performing Lab: see note ML - [facility] LB PROF CHEM 8 (BAS METB) Reviewed date:04/29/2024 02:51:35 PM Interpretation: Performing Lab: Notes/Report: [facility] , Sodium 139 136-145 mmol/L Potassium 4.7 [...] 8.5-10.1 mg/dL Performing Lab: see note - [facility] THEOPHYLLINE Reviewed date:04/29/2024 02:51:35 PM Interpretation: Performing Lab: Notes/Report: [facility] , Theophylline 13.0 10.0-20.0 ug/mL Performing Lab: see note - [facility] ECG 12 lead Reviewed date:12/19/2024 07:19:18 AM Interpretation: Performing Lab: Notes/Report: Source Facility: [facility]-[address] [place] [address] [place] [address] Electrocardiograph Report Signed Patient: RICARDO HALLMAN MR#: [id number] : 1960 Acct:[id number] Age/Sex: 64 / M ADM Date: 12/18/24 Loc: CARD Attending Dr: Douglas Pacheco D.O. Ordering Physician: Douglas Pacheco D.O. Date of Service: 12/18/24 Procedure(s): ECG 12 lead Accession Number(s): [id number] cc: [facility] Test Date: 2024-12-18 Pat Name: RICARDO HALLMAN Department: Room: - Gender: Male Roll Examiner: : 1960 Requested By: Douglas Pacheco Order Number: [id number] Reading MD: JAGRUTI DOMINIQUE M.D. Measurements Intervals [place] Rate: 100 P: 77 MA: 161 QRS: 50 QRSD: 93 T: 91 QT: 332 QTc: 429 Interpretive Statements SINUS TACHYCARDIA WITH FREQUENT SUPRAVENTRICULAR PREMATURE COMPLEXES MODERATE ST DEPRESSION [0.05+ mV ST DEPRESSION] Abnormal ECG Compared to ECG 08/20/2024 15:27:35 ST (T wave) deviation now present Indeterminate axis no longer present Electronically Signed On 12-18-2024 18:10:03 EDT by JAGRUTI DOMINIQUE M.D. Dictated By: JAGRUTI DOMINIQUE Signed By: 12/18/24 1810 12/18/24 1810 DD/ 1437 TD/TT: Roll Line Operator: [place] [address] Electrocardiograph Report Signed Patient: VELIA HALLMAN MR#: [id number] : 1960 Acct:[id number] Age/Sex: 64 / M ADM Date: 12/18/24 Loc: CARD Attending Dr: Douglas Pacheco D.O. Ordering Physician: Douglas Pacheco D.O. Date of Service: 12/18/24 Procedure(s): ECG 12 lead Accession Number(s): [id number] cc: [facility] Test Date: 2024-12-18 Pat Name: RICARDO LINDQUIST Department: 76 Room: - Gender: Male Roll Examiner: : 1960 Requ ested By: Douglas Pacheco Order Number: [id number] Reading MD: JAGRUTI DOMINIQUE M.D. Measurements Intervals [place] Rate: 100 P: 77 MA: 161 QRS: 50 QRSD: 93 T: 91 [...] M.D. Dictated By: JAGRUTI DOMINIQUE Signed By: 12/18/24180912/18/24 181 DD/ 1437 TD/TT: Roll Line Operator: ECG 12 lead Reviewed date:12/19/2024 07:18:59 AM Interpretation: Performing Lab: Notes/Report: Source Facility: [place] [address] Electrocardiograph Report Signed Patient: RICARDO HALLMAN MR#: [id number] : 1960 Acct:[id number] Age/Sex: 64 / M ADM Date: 12/18/24 Loc: CARD Attending Dr: Douglas Pacheco D.O. Ordering Physician: Douglas Pacheco D.O. Date of Service: 12/18/24 Procedure(s): ECG 12 lead Accession Number(s): [id number] cc: [facility] Test Date: 2024-12-18 Pat Name: RICARDO HALLMAN Department: Room: - Gender: Male Roll Examiner: : 1960 Requested By: Douglas Pacheco Order Number: [id number] Reading MD: JAGRUTI DOMINIQUE M.D. Measurements Intervals [place] Rate: 96 P: 73 MA: 150 QRS: 54 QRSD: 98 T: 87 QT: 365 QTc: 463 Interpretive Statements SINUS RHYTHM WITH OCCASIONAL SUPRAVENTRICULAR PREMATURE COMPLEXES [place] ECG Compared to ECG 12/18/2024 14:37:29 Sinus tachycardia no longer present ST (T wave) deviation no longer present Electronically Signed On 12-18-2024 18:10:48 EDT by JAGRUTI DOMINIQUE M.D. Dictated By: JAGRUTI DOMINIQUE Signed By: 12/18/241810 DD/ 38 TD/TT: Roll Line Operator: [place] [address] Electrocardiograph Report Signed Patient: VELIA HALLMAN MR#: [id number] : 1960 Acct:[id number] Age/Sex: 64 / M ADM Date: 12/18/24 Loc: CARD Attending Dr: Douglas Pacheco D.O. Ordering Physician: Douglas Pacheco D.O. Date of Service: 12/18/24 Procedure(s): ECG 12 lead Accession Number(s): [id number] cc: [facility] Test Date: 2024-12-18 Pat Name: RICARDO LINDQUIST Department: 76 Room: - Gender: Male Roll Examiner: : 1960 Requ ested By: Douglas Pacheco Order Number: [id number] Reading MD: JAGRUTI DOMINIQUE M.D. Measurements Intervals [place] Rate: 96 P: 73 MA: 150 QRS: 54 QRSD: 98 T: 87 QT: 365 QTc: 463 Interpretive Statements SINUS RHYTHM WITH OCCASIONAL SUPRAVENTRICULAR PREMATURE COMPLEXES [place] ECG Compared to ECG 09/2024 14:37:29 Sinus tachycardia no longer present ST (T wave) deviatio n no longer present Electronically Korin d On 12-18-2024 18:10:48 EDT by JAGRUTI DOMINIQUE M.D. Dictated By: AJGRUTI DOMINIQUE Signed By: 12/18/241810 DD/ 143 TD/TT: Roll Line Operator: THEOPHYLLINE Reviewed date:04/28/2024 09:39:37 PM Interpretation: Performing Lab: Notes/Report: [facility] , Theophylline 15.6 10.0-20.0 ug/mL Performing Lab: see note - [facility] LB THEOPHYLLINE Reviewed date:04/30/2024 08:12:03 PM Interpretation: Performing Lab: Notes/Report: [facility] , Theophylline 13.7 10.0-20.0 ug/mL Performing Lab: see note ML - [facility] LB PROF CHEM 8 (BAS METB) Reviewed date:04/30/2024 08:12:03 PM Interpretation: Performing Lab: Notes/Report: [facility] , Sodium 137 136-145 mmol/L Potassium 4.8 3.5-5.1 mmol/L Chloride 101 98-107 mmol/L Carbon Dioxide 26.0 21.0-32.0 mmol/L Anion Gap 14.8 Glucose 189 74-106 mg/dL Blood Urea Nitrogen 19.0 7.0-18.0 mg/dL Creatinine 1.20 0.70-1.30 mg/dL Estimated GFR ( Elizabeth >60 >=60 mL/min/1.73m 2 Estimated GFR (Non- Surekha >60 >=60 mL/min/1.73m 2 BUN Creatinine Ratio 15.8 Calcium 9.6 8.5-10.1 mg/dL Performing Lab: see note ML - [facility] LB CBC AUTO DIFF Reviewed date:04/30/2024 08:12:03 PM Interpretation: Performing Lab: Notes/Report: [facility] , White Blood Count 16.6 4.0-11.0 10 [...] Performing Lab: see note ML - [facility] LB Reason For Referral Reason Tachycardia, frequen t PACs & PVCs Diagnosis 1 Tachycardia, unspeci fied (R00.0) Referral Organization [facility] Referring Provider First Name Douglas Referring Provider Last Name Mart Referring Provider Speciality Pulmonolog y Referred Provider Calli Devlin Referred Provider Specialty Cardiology General Notes Faisal Ayala 12/18 04:56:55 PM >Referral was taken to Racheal Mclaughlin at [facility] Card[facility]., Faisal Ayala 12/20/2024 11:19:56 AM >I called and spoke with Vianney at [facility] Card[facility] who confirmed the referral was received and states she has left a voicemail for the patient to call the office. Vianney states the patient was previously under [facility] Card[facility] care but did not follow up in the past., Faisal Ayala 12/27/2024 11:16:15 AM >I called and spoke with Vianney at [facility] Card[facility] who states the patient has not returned the call to schedule. I personally called the patient and advised him he needs to return the call to [facility] Card[facility] and schedule. Patient verbalized understanding and states he planned on calling today., Faisal Ayala 12/27/2024 01:28:07 PM >Patient called and left a voicemail stating he is scheduled with [facility] on 01/24/2025 at 1400., Faisal [...] Administration Date Status Comme nts Flu, Flucelvax (82408) 6 mos and older, single-dose syringe Unknown 04/30/2024 Administered Flu, Flucelvax (57408) 2 yrs +, single-dose syringe (5319-2240) Unknown 05/16/2020 Administered Pneumococcal (Prevnar 13) Unknown [...] Problem Status W/U Status Risk Notes Problem 873836327 Chronic obstructive pulmonary disease, unspecified (J44.9) Active confirmed Problem 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 , 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 (113.6m g/dL) Problem Centrilobular emphysema (88731224) Centrilobular emphysema (J43.2) Active confirmed Problem Chronic respiratory failure (67170555) Chronic respiratory failure with hypoxia (J96.11) Active confirmed Problem Long-term current use of inhaled steroid (704661792) exterminator (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 (Z79.51) Active confirmed Problem 329742338619035 retirement (current) use of systemic steroids (Z79.52) Active confirmed Problem Obesity (340480628) Obesity (E66.9) Active confirmed Problem Obstructive sleep apnea syndrome (74861843) RANCHO (obstructive sleep apnea) (G47.33) Active confirmed Problem Generalized anxiety disorder (54863684) CANDACE (generalized anxiety disorder) (F41.1) Active confirmed Problem Acute exacerbation of chronic obstructive airways disease (304649219) COPD exacerbation (J44.1) Active confirmed Problem Type II diabetes mellitus well controlled (715653006) Diabetes mellitus type 2, controlled (E11.9) Active confirmed Problem Ex-tobacco user (finding) (745081273) History of tobacco abuse (Z87.891) Active confirmed 3ppd x 40 years (120 pack-ye ars), quit 2012 Problem Long-term current use of insulin (840454067) Long-term insulin use (Z79.4) Active confirmed Problem Leukocytosis (258626517) Elevated WBCs (D72.829) Active confirmed Problem Essential hypertension (23923038) BP (high blood pressure) (I10) Active confirmed Problem Hypertensive disorder (17173057) Chronic hypertension (I10) Active confirmed Problem Diabetes mellitus (67940676) Diabetes mellitus (E11.9) Active confirmed Problem 179293196 Body mass index [BMI] 35.0-35.9, adult (Z68.35) Active confirmed Problem 140414201 Body mass index [BMI] 37.0-37.9, adult (Z68.37) Active confirmed Problem History of COVID-19 (92415608698244271 5) History of COVID-19 (Z86.16) Active confirmed Vital Signs Heart Rate 120 /min 12/18/2024 Temperature 96.8 degrees Fahrenheit 12/18/2024 Respiratory Rate 22 /min 12/18/2024 Oximetry 94 % 12/18/2024 Blood pressure diastolic 84 mm Hg 12/18/2024 Height 71 in 12/18/2024 Blood pressure systolic 166 mm Hg 12/18/2024 Weight 234.4 lbs 12/18/2024 BMI 32.69 kg/m2 12/18/2024 Procedures Procedure Date Ordered Date Performed Result Body Sit e EKG 12/18/2024 12/18/2024 N/A Encounters Encounter Location Date Provider Diagnosis [facility] [address] [address] 03/14/[address] J43.2 ; Pmpzx-9-qqocccmdlde deficiency E88.01 ; Chronic respiratory failure with hypoxia J96.11 ; RANCHO (obstructive sleep apnea) G47.33 ; Diabetes mellitus type 2, controlled E11.9 ; Obesity E66.9 ; exterminator (current) use of systemic steroids Z79.52 ; retirement (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 Z79.51 ; History of tobacco abuse Z87.891 ; History of COVID-19 Z86.16 and Encounter for screening for malignant neoplasm of respiratory organs Z12.[address] [address] [address] 06/20/20[address] J43.2 ; Zojyq-7-olcqfvuoqcw deficiency E88.01 ; Chronic respiratory failure with hypoxia J96.11 ; RANCHO (obstructive sleep apnea) G47.33 ; Diabetes mellitus type 2, controlled E11.9 ; Obesity E66.9 ; retirement (current) use of systemic steroids Z79.52 ; retirement (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 Z79.51 and History of tobacco abuse Z87.891 [facility] [address] [address] 09/19/20[address] J43.2 ; Vifom-9-sabxkwqgavi deficiency E88.01 ; Chronic respiratory failure with hypoxia J96.11 ; RANCHO (obstructive sleep apnea) G47.33 ; Diabetes mellitus type 2, controlled E11.9 ; Obesity E66.9 ; exterminator (current) use of systemic steroids Z79.52 ; exterminator (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 Z79.51 and History of tobacco abuse Z87.891 [facility] [address] [place] [address] 12/18/2024 [facility] [address]rilob[address] emph[address] J43.2 ; Tachycardia, unspecified R00.0 ; Hlvow-0-oachnuzzszk deficiency E88.01 ; Chronic respiratory failure with hypoxia J96.11 ; RANCHO (obstructive sleep apnea) G47.33 ; Diabetes mellitus type 2, controlled E11.9 ; Obesity E66.9 ; retirement (current) use of systemic steroids Z79.52 ; exterminator (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 Z79.51 and History of tobacco abuse Z87.891 [facility] [address] [place] [address] 03/14/2024 [facility] [address] [place] [address] 05/30/2024 [facility] [address] [place] [address] 07/02/2024 [facility] [address] [place] [address] 2024 [facility] [address] [place] [address] 12/19/2024 [facility] [address] [place] [address] 01/31/2025 [facility] Assessments Encounter Date Diagnosis (ICD Code) Assessment Notes Treatment Notes Treatment Clinical Notes Section Notes 03/14/2024 Jwehr-6-wbacgimpj in deficiency (ICD-10 - E88.01) Genotype: MZ , 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 (113.6mg/dL) Last dose of Prolastin was 09/2021. PFT done 11/14/2023 shows FEV1 @ 33%, which has been an improvement since 12/27/2019 (29%) and 05/24/2017 (21%). Will discuss repeating PFT in October 2024 next visit. 03/14/2024 Centrilobular emphysema (ICD-10 - J43.2) Patient [...] weight loss to qualify for endobronchial valves. Obne-du-usdi encounter performed with the patient to document continued need for a nebulizer with nebulized medications. -Current nebulized medications: DuoNeb. Hypertonic saline (3%) -Symptom control: Improved breathing with DuoNeb -Reported side or adverse effects: None -Recommendations: Continue nebulizer with solutions. Patient was encouragd to use the hypertonic saline more often when feeling congested. 06/20/2024 Oahlx-2-pfrcdbokt in deficiency (ICD-10 - E88.01) Genotype: MZ , 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 (113.6mg/dL) Last dose of Prolastin was 09/2021. Will try to restart Prolastin at this time. 06/20/2024 Centrilobular emphysema (ICD-10 - J43.2) Very [...] Prescription written and handed to the patient. 09/19/2024 Centrilobular emphysema (ICD-10 - J43.2) Very severe COPD. Ohtuvayre not covered, Dupixent not an option as eosinophils are 200. On theophylline, prednisone, O2, and triple inhaled therapy. Participated in pulmonary rehab. Restarted Prolastin. Explained to patient that I have no other medical options to offer him at this time. He previously went to [place] for evaluation of endobronchial valves or lung [...] Participated in pulmonary rehab. Was evaluated in [place] for endobronchial valves & lung transplant ~2022, but he was deemed to be in too good a shape at that time. Clinical status has declined. He was instructed to return to [place] for re-evaluation, but he has not gone - he was reminded to contact their office to schedule an appointment as he is already established there. 12/18/2024 Tachycardia, unspecified (ICD-10 - R00.0) Tachycardic and irregular on examination. Concern for afib - he has severe COPD. Ordered a STAT EKG through [facility] (was done in my presence as [...] contribute to tachycardia and ectopy. He saw [facility] Dr. Devlin ~7 years ago. I recommended re-evaluation by cardiology as I am limited on what I am able to do for him currently. 12/18/2024 Nmkyz-9-wcxwmbugv in deficiency (ICD-10 - E88.01) Genotype: MZ [...] then I would recommend a port. 09/19/2024 Pijnc-2-dcekvticj in deficiency (ICD-10 - E88.01) Genotype: MZ , 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 (113.6mg/dL) Restarted Prolastin. Continue with weekly infusions. 06/20/2024 Chronic respiratory failure with hypoxia (ICD-10 - J96.11) Xlwc-ft-mbzv encounter performed with the patient to document [...] respiratory failure with hypoxia (ICD-10 - J96.11) Mnje-oe-mkri encounter performed with the patient to document [...] RANCHO (obstructive sleep apnea) (ICD-10 - G47.33) Pqqh-ig-ezje encounter performed with the patient to document continued need for PAP therapy. -Current DME: UWE-Bifbd-eodbv 02/23/2023 AHI 20; BiPAP titration: 30/04 -Compliance [...] use. Patient voices no concerns toay.-Note: This upbp-qk-tmjc visit comes with my authorization that the patient's DME may request to renew, reorder, and/or replace tubing, supplies, mask, and/or PAP device (if applicable). 09/19/2024 Chronic respiratory failure with hypoxia (ICD-10 - J96.11) Ucho-vv-arjc encounter performed with the patient to document [...] : No changes today. Continue O2 ATC 06/20/2024 RANCHO (obstructive sleep apnea) (ICD-10 - G47.33) Previously addressed: Yzjm-qp-ypds encounter performed with the patient to document continued need for PAP therapy. -Current DME: KQN-Cteet-qqquu 02/23/2023 AHI 20; BiPAP titration: 30/04 -Compliance [...] use. Patient voices no concerns toay.-Note: This zwwu-bv-otcn visit comes with my authorization that the patient's DME may request to renew, reorder, and/or replace tubing, supplies, mask, and/or PAP device (if applicable). 12/18/2024 Chronic respiratory failure with hypoxia (ICD-10 - J96.11) Yinn-br-griv encounter performed with the patient to document [...] RANCHO (obstructive sleep apnea) (ICD-10 - G47.33) Shln-ra-vrks encounter performed with the patient to document continued need for PAP therapy. -Current DME: BGD-Yswhj-ffnte 02/23/2023 AHI 20; BiPAP titration: 30/04 -Compliance [...] excellent compliance and voices no issues.-Note: This djdh-ts-wrnn visit comes with my authorization that the patient's DME may request to renew, reorder, and/or replace tubing, supplies, mask, and/or PAP device (if applicable). 06/20/2024 Diabetes mellitus type 2, controlled (ICD-10 - E11.9) Goal is to eventually get patient off steroids d/t underlying DM2. 09/19/2024 RANCHO (obstructive sleep apnea) (ICD-10 - G47.33) Previously addressed: Cgvz-bg-krni encounter performed with the patient to document continued need for PAP therapy. -Current DME: TIK-Cirfc-nkzxg 02/23/2023 AHI 20; BiPAP titration: 30/04 -Compliance was reviewed from 02/11/2024 - 03/11/2024-Total days used: 30 (100%)-Total of all days >4 hours of use: 030 (100%)-Current model, mode, & pressure: AirCurve 10 VAuto-Residual AHI: 0.4-Air leak (95th percentile): 85.5L/min-Mask/harn ess fitting: Decent - leaks d/t facial contour and anderson-Sleep quality: Improved with PAP use-Daytime hypersomnolence: Decreased with PAP use-Recommendations : Superb compliance with voiced benefit with use. Patient voices no concerns toay.-Note: This wnqe-uq-tugb visit comes with my authorization that the patient's DME may request to renew, reorder, and/or replace tubing, supplies, mask, and/or PAP device (if applicable). 03/14/2024 Diabetes mellitus type 2, controlled (ICD-10 - E11.9) Goal is to eventually get patient off steroids d/t underlying DM2. 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 Monitor for hyperglycemia. 03/14/2024 Obesity (ICD-10 - E66.9) Discussed weight loss. Already on Ozempic. Discussed calories in, caloriies out. [place] and other lower diest were dicsussed. 06/20/2024 Obesity (ICD-10 - E66.9) Continue losing weight. 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 Monitor for hyperglycemia. 09/19/2024 Obesity (ICD-10 - E66.9) Weight loss advised. 12/18/2024 Obesity (ICD-10 - E66.9) Weight loss advised. 06/20/2024 retirement (current) use of systemic steroids (ICD-10 - Z79.52) Discussed adverse effects of usp systemic steroids including, but not limited to: increased risk of cataracts, elevated blood sugars/worsening of underlying diabetes mellitus, impaired wound healing, gastrointestinal ulcers, osteoporosis. 03/14/2024 exterminator (current) use of systemic steroids (ICD-10 - Z79.52) Discussed adverse effects of exterminator systemic steroids including, but not limited to: increased risk of cataracts, elevated blood sugars/worsening of underlying diabetes mellitus, impaired wound healing, gastrointestinal ulcers, osteoporosis. 03/14/2024 exterminator (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 (ICD-10 - Z79.51) Patient was counseled to rinse & gargle with water after inhaled corticosteroid use. 06/20/2024 exterminator (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 (ICD-10 - Z79.51) Patient was counseled to rinse & gargle with water after inhaled corticosteroid use. 09/19/2024 exterminator (current) use of systemic steroids (ICD-10 - Z79.52) Discussed adverse effects of exterminator systemic steroids including, but not limited to: increased risk of cataracts, elevated blood sugars/worsening of underlying diabetes mellitus, impaired wound healing, gastrointestinal ulcers, osteoporosis. 12/18/2024 retirement (current) use of systemic steroids (ICD-10 - Z79.52) Discussed adverse effects of usp systemic steroids including, but not limited to: increased risk of cataracts, elevated blood sugars/worsening of underlying diabetes mellitus, impaired wound healing, gastrointestinal ulcers, osteoporosis. 12/18/2024 retirement (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 (ICD-10 - Z79.51) Patient was counseled to rinse & gargle with water after inhaled corticosteroid use. 06/20/2024 History of tobacco abuse (ICD-10 - Z87.891) 3ppd x 40 years (120 pack-years), quit 2012 3ppd x 40 years (120 pack-years), quit 2012 LDCT due 12/2024. 09/19/2024 retirement (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 (ICD-10 - Z79.51) Patient was counseled to rinse & gargle with water after inhaled corticosteroid use. 03/14/2024 History of tobacco abuse (ICD-10 - [...] Insured Coverage Start Date Coverage End Date [facility] [employer] [address] [place] [address] [id number] Ricardo Hallman Self - patient is the insured MEDICAID [place] 2ND INS [address] OFF[place] OF [place], [place] [id number] [phone] [id number] Ricardo Hallman Self - patient is the insured 3 Medical (General) History Medical History History ICD Code Centrilobular emphysema J43.2 Uchxa-7-omiesrjvnwc deficiency E88.01 Chronic respiratory failure with hypoxia J96.11 RANCHO (obstructive sleep apnea) G47.33 Diabetes mellitus type 2, controlled E11 .9 GERD (gastroesophageal reflux disease) K 21.9 Essential Hypertension I10 Depression F32.A Obesity E66.9 retirement (current) use of inhaled stero ids Z79.51 History of tobacco abuse Z87.891 History of COVID-19 Z86.16 Surgical History Surgery Date(Month/Year) oral surgery Hospitalization History Reason Date(Month/Year) COPD Exacerbation-[facility] 04/28/2024 [facility]os-91-[facility] ER 10/16/2023 COPD Exacerbation-TB[facility] 06/20/2023 COPD Exacerbation-TB[facility] 12/20/2022
--- OUTSIDE RECORDS SUMMARY | 2025-02-05 16:18 | XMS_ITS | CCD ---
Author Organization Unknown Care Team Providers Care Chopper Operator Name Role Phone Unavailable Primary Care Provider Unavailabl e Unavailable Chronic Care Management Unavaila ble Summary Purpose DataExchange Insurance Providers Payer name Policy type / Coverage type Covered alliance party ID Effective Begin Date Effective End Date [facility] [id number] Unknown Unknown Family History Family History data not found Medication Administered No Medication Administered data Reason For Visit No Reason For Visit data Medical Equipment No Medical Equipment data Advance Directives No Advance Directive data
--- OUTSIDE RECORDS SUMMARY | 2025-02-05 16:18 | XMS_ITS | CCD ---
Author Organization Unknown Care Team Providers Care Web Engineer Name Role Phone Unavailable Primary Care Provider Unavailabl e Unavailable Chronic Care Management Unavaila ble Summary Purpose DataExchange Insurance Providers Payer name Policy type / Coverage type Covered green party ID Effective Begin Date Effective End Date [facility] [id number] Unknown Unknown Family History Family History data not found Medication Administered No Medication Administered data Reason For Visit No Reason For Visit data Medical Equipment No Medical Equipment data Advance Directives No Advance Directive data
== END 2025-02-14 23:59 | disposition home or self-care (01) ==
LOC: INF 15:14
PROVIDERS: PCP Internal Medicine; Visit Provider Internal Medicine
DX: E88.01 Alpha-1-antitrypsin deficiency (principal); J43.2 Centrilobular emphysema
CPT/HCPCS: 96365; J0256

== ENCOUNTER 2025-03-15 12:16 | Outpatient (RCR) | payer MEDICARE, SELFPAY ==
[2025-02-20 14:33] VITALS: BP 146/75; PULSE 88; TEMP 36.1; O2SAT 94
[2025-02-20] MEDS: ALPHA IV (15:01)
[2025-02-20] MEDS: PROTEINASE INHIBITOR IV (15:01)
[2025-03-01 14:09] VITALS: BP 148/89; PULSE 100; TEMP 36.2; O2SAT 97
[2025-03-01] MEDS: PROTEINASE INHIBITOR IV (14:23)
[2025-03-01] MEDS: ALPHA IV (14:23)
[2025-03-15 13:51] VITALS: PULSE 94; TEMP 36.1; O2SAT 92
== END 2025-03-17 23:59 | disposition home or self-care (01) ==
LOC: INF 12:16
PROVIDERS: PCP Internal Medicine; Visit Provider Internal Medicine
DX: E88.01 Alpha-1-antitrypsin deficiency (principal); J43.2 Centrilobular emphysema; I47.10 Supraventricular tachycardia, unspecified; R06.09 Other forms of dyspnea
CPT/HCPCS: 93306; 96365; J0256

== ENCOUNTER 2025-03-15 12:52 | Outpatient (OUT) | payer MEDICARE, SELFPAY ==
--- OUTSIDE RECORDS SUMMARY | 2025-03-11 12:45 | XMS_ITS | Encounter Summary ---
Author Organization [facility] Address [address] [place] [id number] Care Team Providers Care Aprn Name Role Phone Janet Benavides MD Primary Care Provider [phone] Douglas Pacheco DO Unavailable [phone] Source Comments In the event this information is protected by the Federal Confidentiality of Alcohol and Drug AbusePatient Records regulations: The Federal rules restrict any use of the information to criminally investigate or prosecute any alcohol or drug abuse patient.[facility] Reason for Visit * Reason Comments Spirometry * Outpatient Procedure (Routine) - Closed Specialty Diagnoses / Procedures Referred By Contac t Referred To Contact [facility] Diagnoses Chronic obstructive pulmonary disease, unspecified COPD type (HCC) Procedures LUNG DIFFUSION CAPACITY (DLCO) [place] [address] [place] [address] Phone: tel: fax: [facility] [address] [place] [id number] Referral ID Status Reason Start Date Expiration Date V isits Requested Visits Authorized [id number] Closed Auto-Generate d Referral 03/06/2025 04/05/2026 1 1 Encounter Details Date Type Department Care Team ([facility] st Contact Info) Description 03/11/2025 12:45 PM EDT Procedure Pulmonary Medicine [address] [place] [address] Spirometry Social History Tobacco Use Types Packs/Day Years Used Date Smoking Tobacco: Never Assessed Area Deprivation Index Answer Date Chirag rded National Score (1-100), lower number is lower ri sk 61 03/11/2025 State Score (1-10), lower number is lower risk 4 03/11/2025 Data from: https://www.neighborhoodatlas.medicine.[facility]/. Last address used for calculation [address] 03/11/2025 Sex and Gender Information Value Date Recorded Sex Assigned at Not on file Legal Sex Male 8:40 AM EDT Gender Identity Male 03/17/2021 10:03 PM EDT Sexual Orientation Straight 03/17/2021 10 :03 PM EDT documented as of this encounter Plan of Treatment Upcoming Encounters Date Type Department Care Team ([facility] st Contact Info) Description 05/10/2025 12:30 PM EDT Procedure Pulmonary Medicine [address] [place] [address] Chronic obstructive pulmonary disease, unspecified COPD type (HCC) [J44.9] 05/10/2025 1:00 PM EDT Office Visit Pulmonary Medicine [address] [place] [address] [place] [address] [place] [address] Chronic obstructive pulmonary disease, unspecified COPD type (HCC) [J44.9] documented as of this encounter Procedures Procedure Name Priority Date/Time Associated Diagnosis Comments LUNG DIFFUSION CAPACITY (DLCO) Routine 03/11/2025 12:26 PM EDT Chronic obstructive pulmonary disease, unspecified COPD type (HCC) documented in this encounter Results * LUNG DIFFUSION CAPACITY (DLCO) (03/11/2025 12:26 PM EDT) FVC PRE (L) 3.71 L [facility] FVC POST (L) 3.63 L PULMONA RY FUNCTION LAB FVC PREDICTED (L) 4.01 L [facility] FVC LLN (L) 3.00 L [facility] FVC ULN (L) 5.04 L [facility] Y [facility] FEV1 PRE (L) 1.18 L [facility] FEV1_POST (L) 1.28 L PULMON KAUR FUNCTION LAB FEV1 PREDICTED (L) 3.09 L [facility] FEV1 LLN (L) 2.27 L [facility] FEV1 ULN (L) 3.85 L [facility] FEV1/FVC PRE (%) 32 % [facility] FEV1/FVC POST (%) 35 % [facility] FEV1/FVC PREDICTED (%) 78 % [facility] FEV1/FVC LLN (%) 65 % [facility] FEF25% PRE (L/S) 0.81 L/S [facility] FEF25% POST (L/S) 0.98 L/S [facility] FEF75% PRE (L/S0 0.15 L/S [facility] FEF75% POST (L/S) 0.16 L/S [facility] FEF75% PREDICTED (L/S) 0.75 L/S [facility] FEF75% LLN (L/S) 0.29 L/S [facility] FEF75% ULN (L/S) 1.83 L/S [facility] BNC90-15% PRE (L/S) 0.30 L/S [facility] ENQ94-08% POST (L/S) 0.32 L/S [facility] ZOG55-22% PREDICTED (L/S) 2.61 L/S [facility] TAP26-82% LLN (L/S) 1.21 L/S [facility] PEF PRE (L/S) 3.50 L/S PULMON KAUR [facility] PEF POST (L/S) 3.72 L/S PULMO NARY FUNCTION [facility] PEF LLN (L/S) 6.30 L/S [facility] PEF ULN (L/S) 10.79 L/S [facility] SVC PREDICTED (L) 4.01 L/S [facility] SVC LLN (L) 3.00 L/S [facility] SVC ULN (L) 5.04 L/S [facility] IC PREDICTED (L) 2.67 L/S [facility] ERV PREDICTED (L) 1.34 L/S [facility] DLCO (ml/min/mmHg) 17.58 ml/min/mmH g [facility] DLCO PREDICTED (ml/min/mmHg) 25.83 ml/min/mmH g [facility] DLCO LLN (ml/min/mmHg) 19.17 ml/min/mmH g [facility] DLCO ULN (ml/min/mmHg) 33.72 ml/min/mmH g [facility] FET PRE (S) 17.14 S [facility] FET POST (S) 16.29 S [facility]ULMONA RY FUNCTION [facility] VA (L) 5.02 L [facility] VA PREDICTED (L) 6.24 L PULMON[facility] FUNCTION [facility] DLCO/VA (ml/min/mmHg/L) 0.04 ml/min/mmH g/L [facility] DLCO/VA PREDICTED (ml/min/mmHg/L) 0.04 ml/min/mmH g/L [facility] DLCOcor (ml/min/mmHg) 17.37 ml/min/mmH g [facility] DLCOcor PREDICTED (ml/min/mmHg) 25.83 ml/min/mmH g [facility] DLCO/VAcor (ml/min/mmHg/L) 0.03 ml/min/mmH g/L [facility] 03/11/2025 12:2 6 PM EDT Narrative PULMONARY FUNCTION [facility] - 03/12/2025 1:32 PM EDT [facility] [address] [place] [address] Test Date: 2025-03-11 Pat Name: RAMIRO HALLMAN Department: Room: Gender: Male [employer]: : 1960 Requested By: Order Number: [id number] Reading MD: Tory Mukherjee MD Interpretive Statements PRE GRICELDA: The two largest FVCs were not repeatable. Second largest FVC was 3.51L. FEV1 repeatable x 3. POST BD GRICELDA: Current ATS/ERS acceptability and repeatability standards for spirometry met. Start of test and EOFE criteria met. The two acceptable DLCO measurements obtained [were] repeatable. Medications and Allergies were reviewed for possible drug interactions per policy. No contraindications or sensitivities were noted. Meds taken: Trelegy 6 hours and Albuterol 1 hour before testing. 2 puffs Albuterol (180 mcg) delivered by MDI via holding chamber. HR pre = 112/min, HR post = 114/min. //RK IMPRESSION: Spirometry indicates severe obstruction. Negative bronchodilator response. The diffusing capacity (corrected for hemoglobin) is reduced. Electronically Signed On 03-12-2025 13:32:49 EDT by Tory Mukherjee MD ID: [id number] Name: RAMIRO HALLMAN Race: White Ht: 68.90 in Wt: 240.30 lbs Age: 64 Gender: Male : 1960 Dx: COPD_ Smoking Hx: Non-smoker Doctor: LESLYE LESTER Test Date: 03/11/2025 Site: Tech: Meghan Salazar PRE-BRONCH POST-BRONCH [place] LLN Pred ULN %Pred ZScore [place] %Pred %Chg ZScore SPIROMETRY FVC 3.71 3.00 4.01 5.04 92 -0.49 3.63 90 -1 -0.62 FEV1 1.18 2.27 3.09 3.85 38 -3.64 1.28 41 3 -3.47 FEV1/FVC 0.32 0.65 0.78 0.88 41 -4.13 0.35 45 10 -3.98 FEFMax 3.50 6.30 8.55 10.79 40 -3.70 3.72 43 6 -3.54 FEF50 0.38 1.91 4.04 6.16 9 -2.83 0.38 9 0 -2.83 FIF50 5.71 5.68 0 FEF50/FIF50 0.07 90-100 0.07 0 FIVC 3.40 3.54 4 ZMK02-93 0.30 1.21 2.61 4.56 11 -3.39 0.32 12 5 -3.34 ExpiredTime 17.14 16.29 -4 TimeToFEFMax 0.04 0.08 98 EDYTA 0.02 0.03 96 VolExtrap% 0 1 100 LUNG DIFFUSION DLCOunc 17.58 19.17 25.83 33.72 68 -2.09 DLCOStdPB 17.37 19.17 25.83 33.72 67 -2.15 VA 5.02 5.04 6.24 7.54 80 -1.66 Kco 3.46 3.12 4.17 5.30 83 -1.09 Comments: PRE GRICELDA: The two largest FVCs were not repeatable. Second largest FVC was 3.51L. FEV1 repeatable x 3. POST BD GRICELDA: Current ATS/ERS acceptability and repeatability standards for spirometry met. Start of test and EOFE criteria met. The two acceptable DLCO measurements obtained [were] repeatable. Medications and Allergies were reviewed for possible drug interactions per policy. No contraindications or sensitivities were noted. Meds taken: Trelegy 6 hours and Albuterol 1 hour before testing. 2 puffs Albuterol (180 mcg) delivered by MDI via holding chamber. HR pre = 112/min, HR post = 114/min. //RK Leslye Tayler GOSS SCHEDULED PROCEDURES Final Resul t [facility] [address] [facility], [facility] [place] [address] documented in this encounter Visit Diagnoses Diagnosis Chronic obstructive pulmonary disease, unspecified COPD type (HCC) documented in this encounter Care Teams Aprn Relationship Specialty Start Date End Date Janet Benavides MD [address] [place] [id number] PCP - General Family Medicine 03/12/20 Douglas Pacheco DO [address] [place] [address] Referring Pulmonary and Critical Care Medicine 03/12/20 documented as of this encounter
--- OUTSIDE RECORDS SUMMARY | 2025-03-11 13:45 | XMS_ITS | Encounter Summary ---
Author Organization [facility] [place] Address [address] [place], [place] [address] Care Team Providers Care Bonbon Cream Warmer Name Role Phone Janet Benavides MD Primary Care Provider [phone] Douglas Pacheco DO Unavailable [phone] Source Comments In the event this information is protected by the Federal Confidentiality of Alcohol and Drug AbusePatient Records regulations: The Federal rules restrict any use of the information to criminally investigate or prosecute any alcohol or drug abuse patient.[facility] [place] Reason for Referral * MRI/CT (Routine) - New Request Specialty Diagnoses / Procedures Referred By Anthony gomez Referred To Contact CT IMAGING Diagnoses Chronic obstructive pulmonary disease, unspecified COPD type (HCC) Procedures CT CHEST WO IVCON DIAGNOSTIC COMPUTED TOMOGRAPHY THORAX W/[place] [address] [place] [address] Phone: tel: fax: [place] [phone] Referral ID Status Reason Start Date Expiration Date Visits Requested Visits Authorized [id number] New Request Auto-Generat ed Referral 03/11/2025 04/10/2026 1 1 * Outpatient Procedure (Routine) - Pending Review Specialty Diagnoses / Procedures Referred By Contac t Referred To [facility] Diagnoses Chronic obstructive pulmonary disease, unspecified COPD type (HCC) Procedures SIX MINUTE WALK CARDIOPULMONARY [place] [address] [place] [address] Phone: tel: fax: Respiratory [address] [address] Referral ID Status Reason Start Date Expiration Date Visits Requested Visits Authorized [id number] Pending Review Auto-Generat ed Referral 03/11/2025 04/10/2026 1 1 * Outpatient Procedure (Routine) - Closed Specialty Diagnoses / Procedures Referred By Contac t Referred To [facility] Diagnoses Chronic obstructive pulmonary disease, unspecified COPD type (HCC) Procedures [place] [address] [place] [address] Phone: tel: fax: Respiratory [address] [address] Referral ID Status Reason Start Date Expiration Date V isits Requested Visits Authorized [id number] Closed Auto-Generate d Referral 03/11/2025 07/17/2025 1 1 Reason for Visit * Reason Comments COPD Encounter Details Date Type Department Care Team (Late st Contact Info) Description 03/11/2025 1:45 PM EDT Office Visit Pulmonary Medicine [id number] [place] [address] Leslye [place]ester [place] [id number] [place] [address] Chronic obstructive pulmonary disease, unspecified COPD type (HCC) (Primary Dx); Chronic respiratory failure with hypoxia (HCC); Xzpit-2-lbkpccdwajo deficiency (HCC); Chronic rhinitis; Obstructive sleep apnea (adult) (pediatric); Former smoker Social History Tobacco Use Types Packs/Day Years Used Date Smoking Tobacco: Never Assessed Area Deprivation Index Answer Date Chirag rded National Score (1-100), lower number is lower ri sk 61 03/11/2025 State Score (1-10), lower number is lower risk 4 03/11/2025 Data from: https://www.neighborhoodatlas.medicine.[facility]/. Last address used for calculation [address] 03/11/2025 Sex and Gender Information Value Date Recorded Sex Assigned at Not on file Legal Sex Male 8:40 AM EDT Gender Identity Male 03/17/2021 10:03 PM EDT Sexual Orientation Straight 03/17/2021 10 :03 PM EDT documented as of this encounter Last Filed Vital Signs Vital Sign Reading Time Taken Comments Blood Pressure 134/84 03/11/2025 1:27 PM EDT Pulse 113 03/11/2025 1:27 PM EDT Temperature - - Respiratory Rate - - Oxygen Saturation 97% 03/11/2025 1:27 PM EDT 3L Inhaled Oxygen Concentration - - Weight 106.6 kg (235 lb) 03/11/2025 1:27 PM EDT Height - - Body Mass Index 34.69 03/25/2021 1:59 PM EDT documented in this encounter Patient Instructions * Patient Instructions* Leslye Lester MD - 03/11/2025 2:28 PM EDT We discussed your COPD and respiratory health: - You are currently on Trelegy inhaler, albuterol inhaler (used 5-6 times daily), albuterol nebulizer (used less frequently), theophylline, and prednisone 10 mg daily. Continue these medications as prescribed. No refills were needed today. - You are also on Prolastin injections weekly for Alpha-1 antitrypsin deficiency. Continue this as prescribed. - I will order blood work to check your Alpha-1 antitrypsin levels, as this has not been done recently. - You are on 3 liters of oxygen during the day and 2 liters at night with your CPAP. Ensure your oxygen concentrator is available for use with your CPAP at night. 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 Mtz, on Tuesday. This is important as some of your inhalers may affect your heart rhythm. We discussed further evaluation for your COPD: - I will order additional breathing tests, including lung volume testing, to assess for air trapping or hyperinflation. This will help determine if you are a candidate for [place] valves. - A 6-minute walk test will also be scheduled to evaluate your functional capacity. This will not be done today but will be arranged before your next visit. - I will order a quantitative CT scan to assess your lungs and monitor the lung nodules previously identified. If possible, this can be done in [place] for your convenience. - Your case will be presented at our monthly conference to determine if you are a candidate for [place] valves. If the tests indicate you are not a candidate, we will discuss alternative management options. We discussed lung transplant as a potential future option: - You expressed concerns about lung transplantation, and I understand this is a significant decision. We will not proceed with this path without your consent. - Weight loss remains an important factor for transplant eligibility. Your weight is currently 235 lbs, and the goal is to reduce this closer to 212 lbs, as previously achieved during pulmonary rehab. We discussed your runny nose and possible rhinitis: - I prescribed Atrovent nasal spray to use twice daily as needed to help manage your symptoms. Let me know if this does not improve your condition. Follow-up plan: - We will meet again in 2 months to review your test results and discuss next steps. - In the meantime, continue your current medications and oxygen therapy as prescribed. - If you experience worsening symptoms, such as increased shortness of breath, chest pain, or otherconcerns, please contact our office or seek immediate medical attention. documented in this encounter Plan of Treatment Upcoming Encounters Date Type Department Care Team (Late st Contact Info) Description 05/10/2025 12:30 PM EDT Procedure Pulmonary Medicine [address] [place], [place] [id number] Chronic obstructive pulmonary disease, unspecified COPD type (HCC) [J44.9] 05/10/2025 1:00 PM EDT Office Visit Pulmonary Medicine [address] [place], [place] [id number] [place] [address] [place], [place] [address] Chronic obstructive pulmonary disease, unspecified COPD type (HCC) [J44.9] Scheduled Orders Name Type Priority Associated Diagnoses Orde r Schedule SIX MINUTE WALK PFT Routine Chronic obstructive pulmonary disease, unspecified COPD type (HCC) 1 Occurrences starting 03/11/2025 until 04/10/2026 CT CHEST WO IVCON Radiology Routine Chronic obstructive pulmonary disease, unspecified COPD type (HCC) 1 Occurrences starting 03/11/2025 until 04/10/2026 documented as of this encounter Results * (ABNORMAL) THEOPHYLLINE/AMINOPHYLLINE (03/11/2025 3:24 PM EDT) Pathologist [facility] Theophylline 30.0(H) 10.0 - 20.0 ug/mL 03/11/2025 9:56 PM EDT [facility] Comment:Reference ranges and high/low indicator flags are provided as general guidelines only. The treating physician must determine appropriate target levels/dosing based on the specific clinical situation. Blood BLOOD SPECIMEN / Unknown Venipuncture / Unknown 03/11/2025 3:24 PM EDT 03/11/2025 3:24 PM EDT us Leslye Tayler [facility] Final Result [facility] [address] [place] [address], * (ABNORMAL) COMPREHENSIVE METABOLIC PANEL (03/11/2025 3:24 PM EDT) Pathologist [facility] Protein, Total 7.6 6.3 - 8.0 g/dL 03/11/2025 4:31 PM EDT [facility] Albumin 4.7 3.9 - 4.9 g/dL 03/11/2025 4:31 PM EDT [facility] Calcium, Total 9.9 8.5 - 10.2 mg/dL 03/11/2025 4:31 PM EDT [facility] Bilirubin, Total 0.4 0.2 - 1.3 mg/dL 03/11/2025 4:31 PM EDT [facility] Alkaline Phosphatase 115(H) 38 - 113 U/L 03/11/2025 4:31 PM EDT [facility] AST 10(L) 14 - 40 U/L 03/11/2025 4:31 PM [facility] ALT 12 10 - 54 U/L 03/11/2025 4:31 PM [facility] Glucose 156(H) 74 - 99 mg/dL 03/11/2025 4:31 PM [facility] Comment: The [place] Diabetes Association (ADA) provides guidance for cutoff [...] Standards of Medical Care in Diabetes 2016, [place] [employer] Association. Diabetes Care. 2016.39(Suppl 1). BUN 21 9 - 24 mg/dL 03/11/2025 4:31 PM [facility] Creatinine 0.85 0.73 - 1.22 mg/dL 03/11/2025 4:31 PM [facility] Sodium 140 136 - 144 mmol/L 03/11/2025 4:31 PM [facility] Potassium 4.0 3.7 - 5.1 mmol/L 03/11/2025 4:31 PM [facility] Chloride 100 98 - 107 mmol/L 03/11/2025 4:31 PM [facility] CO2 22 22 - 30 mmol/L 03/11/2025 4:31 PM [facility] Anion Gap 18(H) 8 - 15 mmol/L 03/11/2025 4:31 PM [facility] Estimated Glomerular Filtration Rate 96 >=60 mL/min/1. 73m 03/11/2025 4:31 PM [facility] Comment:Estimated Glomerular Filtration Rate (eGFR) is calculated using the 2020 CKD-EPI creatinine equation. This equation utilizes serum creatinine, sex, and age as parameters. The creatinine assay has traceable calibration to isotope dilution- mass spectrometry. Refer to KDIGO guidelines for clinical interpretation. In patients with unstable renal function, e.g. those with acute kidney injury, the eGFR may not accurately reflect actual GFR. Blood BLOOD SPECIMEN / Unknown Venipuncture / Unknown 03/11/2025 3:24 PM EDT 03/11/2025 3:24 PM EDT us Leslye Lester MD LABORATORY Final Result [facility] [address] [facility] [place] [address], * (ABNORMAL) COMPLETE BLOOD COUNT AND DIFFERENTIAL (03/11/2025 3:24 PM EDT) WBC 13.55(H) 3.70 - 11.00 k/uL 03/11/2025 3:43 PM EDT [facility] RBC 6.39(H) 4.20 - 6.00 m/uL 03/11/2025 3:43 PM [facility] Hemoglobin 16.6 13.0 - 17.0 g/dL 03/11/2025 3:43 PM [facility] Hematocrit 52.5(H) 39.0 - 51.0 % 03/11/2025 3:43 PM [facility] MCV 82.2 80.0 - 100.0 fL 03/11/2025 3:43 PM [facility] MCH 26.0 26.0 - 34.0 pg 03/11/2025 3:43 PM [facility] MCHC 31.6 30.5 - 36.0 g/dL 03/11/2025 3:43 PM [facility] RDW-CV 17.0(H) 11.5 - 15.0 % 03/11/2025 3:43 PM T [facility] Platelet Count 359 150 - 400 k/uL 03/11/2025 3:43 PM [facility] MPV 9.2 9.0 - 12.7 fL 03/11/2025 3:43 PM [facility] Neutrophils % 87.7 % 03/11/2025 3:43 PM [facility] Abs Neut 11.88(H) 1.45 - 7.50 k/uL 03/11/2025 3:43 PM EDT [facility] Lymphocytes % 7.5 % 03/11/2025 3:43 PM EDT [facility] Abs Lymph 1.01 1.00 - 4.00 k/uL 03/11/2025 3:43 PM EDT [facility] Monocytes % 3.9 % 03/11/2025 3:43 PM EDT [facility] Abs Woodruff 0.53 <0.87 k/uL 03/11/2025 3:43 PM EDT [facility] Eosinophils % 0.1 % 03/11/2025 3:43 PM EDT [facility] Abs Eosin <0.03 <0.46 k/uL 03/11/2025 3:43 PM EDT [facility] Basophils % 0.4 % 03/11/2025 3:43 PM EDT [facility] Abs Baso 0.06 <0.11 k/uL 03/11/2025 3:43 PM EDT [facility] Immature Granulocytes % 0.4 % 03/11/2025 3:43 PM EDT [facility] Abs Immature Gran 0.06 <0.10 k/uL 03/11/2025 3:43 PM EDT [facility] NRBC 0.1 /100 WBC 03/11/2025 3:43 PM EDT [facility] Absolute nRBC 0.02(H) <0.01 k/uL 03/11/2025 3:43 PM EDT [facility] Diff Type Auto 03/11/2025 3:43 PM T [facility] Blood BLOOD SPECIMEN / Unknown Venipuncture / Unknown 03/11/2025 3:24 PM EDT 03/11/2025 3:24 PM EDT us Leslye Lester MD LABORATORY Final Result [facility] [address] [facility] [place] [address], * [id number] (03/11/2025 3:24 PM EDT) Alpha 1 Antitrypsin 112 90 - 200 mg/dL 03/12/2025 10:09 AM EDT [facility] Blood BLOOD SPECIMEN / Unknown Venipuncture / Unknown 03/11/2025 3:24 PM EDT 03/11/2025 3:24 PM EDT Leslye Lester MD LABORATORY Final Result [facility] [address] [facility] [address] [place] [address], [place] * LUNG VOLUMES (03/11/2025 2:24 PM EDT) VC (L) BOX 3.76 L [facility] SVC PREDICTED (L) 4.01 L/S [facility] SVC LLN (L) 3.00 L/S PULMONAR Y FUNCTION LAB SVC ULN (L) 5.04 L/S PULMONAR Y FUNCTION LAB IC BOX (L) 2.01 L [facility] IC PREDICTED (L) 2.67 L/S [facility] ERV BOX (L) 1.59 L PULMONAR Y FUNCTION LAB ERV PREDICTED (L) 1.34 L/S [facility] FRC Box (L) 5.23 L PULMONAR Y FUNCTION LAB RV Box (L) 3.53 L [facility] RV Box PREDICTED (L) 2.30 L [facility] TLC Box (L) 7.27 L PULMONAR Y FUNCTION LAB TLC Box PREDICTED (L) 6.92 L [facility] RV/TLC Box (%) 49 % PULMO NARY FUNCTION LAB RV/TLC Box PREDICTED (%) 33 % [facility] 03/11/2025 2:24 PM EDT Narrative [facility] - 03/12/2025 1:37 PM EDT [facility] [address] [facility] 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 Patient has dyspnea, COPD and was tachypneic. 2 techs attempted. Best test reported despite difficult testing session. //JH IMPRESSION: Lung volumes (FRC and/or RV) are elevated indicating hyperinflation and air trapping. Electronically Signed On 03-12-2025 13:37:37 EDT by Tory Mukherjee MD ID: [id number] Name: RAMIRO HALLMAN Race: White Ht: 68.90 in Wt: 240.30 lbs Age: 64 Gender: Male : 1960 Dx: Chronic obstructive pulmonary disease, unspecified Smoking Hx: Non-smoker Doctor: LESLYE LESTER Test Date: 03/11/2025 Site: Tech: Gabbie Garcia PRE-BRONCH POST-BRONCH [employer] LLN Pred ULN %Pred ZScore America %Pred %Chg ZScore LUNG VOLUMES FRC([place]) 5.23 2.49 3.60 4.98 145 1.91 ERV 1.59 1.34 118 RV([place]) 3.53 1.40 2.30 3.37 153 1.87 SVC 3.76 3.00 4.01 5.04 93 -0.41 IC 2.01 2.67 74 TLC([place]) 7.27 5.52 6.92 8.35 104 0.40 RV/TLC([place]) 49 22 33 43 148 2.41 Comments: 2 acceptable lung volumes reported. Patient has dyspnea, COPD and was tachypneic. 2 techs attempted. Best test reported despite difficult testing session. // Leslye Lester MD SCHEDULED PROCEDURES Final Resul t [facility] [address] 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
--- OUTSIDE RECORDS SUMMARY | 2025-03-11 14:30 | XMS_ITS | Encounter Summary ---
Author Organization [facility] Address [address] [place] [address] Care Team Providers Care Coffee Grower Name Role Phone Janet Benavides MD Primary Care Provider Douglas Pacheco DO Unavailable [phone] Source Comments In the event this information is protected by the Federal Confidentiality of Alcohol and Drug AbusePatient Records regulations: The Federal rules restrict any use of the information to criminally investigate or prosecute any alcohol or drug abuse patient.[facility] Reason for Visit * Reason Comments Spirometry * Outpatient Procedure (Routine) - Closed Specialty Diagnoses / Procedures Referred By Contac t Referred To Contact [facility] Diagnoses Chronic obstructive pulmonary disease, unspecified COPD type (HCC) Procedures [place] [address] [place] [address] Phone: tel: fax: Respiratory [place] [address] [place] [address] Referral ID Status Reason Start Date Expiration Date V isits Requested Visits Authorized [id number] Closed Auto-Generate d Referral 03/11/2025 07/17/2025 1 1 Encounter Details Date Type Department Care Team (Late st Contact Info) Description 03/11/2025 2:30 PM EDT Procedure Pulmonary Medicine [address] [place] [address] Spirometry Social History Tobacco Use Types Packs/Day Years Used Date Smoking Tobacco: Never Assessed Area Deprivation Index Answer Date Chirag rded National Score (1-100), lower number is lower ri sk 61 03/11/2025 State Score (1-10), lower number is lower risk 4 03/11/2025 Data from: https://www.neighborhoodatlas.medicine.[facility]/. Last address used for calculation [address] [...] 05/10/2025 12:30 PM EDT Procedure Pulmonary Medicine [address] [place] [address] Chronic obstructive pulmonary disease, unspecified COPD type (HCC) [J44.9] 05/10/2025 1:00 PM EDT Office Visit Pulmonary Medicine [address] [place] [address] [place] [address] [place] [address] Chronic obstructive pulmonary disease, unspecified COPD type (HCC) [J44.9] documented as of this encounter Procedures Procedure Name Priority Date/Time Associated Diagnosis Comments LUNG VOLUMES Routine 03/11/2025 2:24 PM EDT Chronic obstructive pulmonary disease, unspecified COPD type (HCC) documented in this encounter Results * LUNG VOLUMES (03/11/2025 2:24 PM EDT) [...] FUNCTION LAB - 03/12/2025 1:37 PM EDT [facility] [address] [facility] [place] [address] Test Date: 2025-03-11 Pat Name: RAMIRO HALLMAN Department: Room: Gender: Male Chips Screen Tender: : 1960 Requested By: Order Number: [id number] Reading MD: Tory Mukherjee MD Interpretive Statements 2 acceptable lung volumes reported. Patient has dyspnea, COPD and was tachypneic. 2 techs attempted. Best test reported despite difficult testing session. // IMPRESSION: Lung volumes (FRC and/or RV) are elevated indicating hyperinflation and air trapping. Electronically Signed On 03-12-2025 13:37:37 EDT by Tory Mukherjee MD ID: [id number] Name: RAMIRO HALLMAN Race: White Ht: 68.90 [...] test reported despite difficult testing session. // us Leslye Lester MD SCHEDULED PROCEDURES Final Resul t [facility] [address] [place] [address] documented in this encounter Visit Diagnoses Diagnosis Chronic obstructive pulmonary disease, unspecified COPD type (HCC)- Primary documented in this encounter Care Teams Coffee Grower Relationship Specialty Start Date End Date Janet Benavides MD [address] [place] [address] PCP - General Family Medicine 03/12/20 Douglas Pacheco DO [address] [place] [address] Referring Pulmonary and Critical Care Medicine 03/12/20 documented as of this encounter
--- OUTSIDE RECORDS SUMMARY | 2025-03-15 12:54 | XMS_ITS | Encounter Summary ---
Author Organization [facility] Address [address] [place] [address] Care Team Providers Care Arc Cutter Plasma Arc Name Role Phone Janet Benavides MD Primary Care Provider [phone] Douglas Pacheco DO Unavailable [phone] Source Comments In the event this information is protected by the Federal Confidentiality of Alcohol and Drug AbusePatient Records regulations: The Federal rules restrict any use of the information to criminally investigate or prosecute any alcohol or drug abuse patient.[facility] Encounter Details Date Type Department Care Team ([facility] st Contact Info) Description 03/13/2025 Telephone Pulmonary Medicine [address] [place], [place] [id number] [place] [address] [place] [address] Social History Tobacco Use Types Packs/Day Years Used Date Smoking Tobacco: Never Assessed Area Deprivation Index Answer Date Chirag rded National Score (1-100), lower number is lower ri sk 61 03/11/2025 State Score (1-10), lower number is lower risk 4 03/11/2025 Data from: https://www.neighborhoodatlas.medicine.[facility].edu/. Last address used for calculation [address] [facility] 03/11/2025 Sex and Gender Information Value Date Recorded Sex Assigned at Not on file Legal Sex Male 8:40 AM EDT Gender Identity Male 03/17/2021 10:03 PM EDT Sexual Orientation Straight 03/17/2021 10 :03 PM EDT documented as of this encounter Miscellaneous Notes * Telephone Encounter - Desean Cole LPN - 03/14/2025 1:10 PM EDT Received pulmonary records from Dr. Pacheco from [place]. Placed in Dr [place] folder for review * Telephone Encounter - Desean Cole LPN - 03/13/2025 3:54 PM EDT Images from the original note were not included. Message Received: 2 days ago Leslye Lester MD P Avw Pulm Nurse Pls get pulmonary records from Dr. Pacheco from [place] also get PFT echo and ct chest thanks Faxed CARLOS ENRIQUE request from [facility] with confirmation documented in this encounter Plan of Treatment Upcoming Encounters Date Type Department Care Team (Late st Contact Info) Description 05/10/2025 12:30 PM EDT Procedure Pulmonary Medicine [address] [place] [address] Chronic obstructive pulmonary disease, unspecified COPD type (HCC) [J44.9] 05/10/2025 1:00 PM EDT Office Visit Pulmonary Medicine [address] [place] [address] [place] [address] [place] [address] Chronic obstructive pulmonary disease, unspecified COPD type (HCC) [J44.9] documented as of this encounter Visit Diagnoses Not on filedocumented in this encounter Care Teams Arc Cutter Plasma Arc Relationship Specialty Start Date End Date Janet Benavides MD [address] [place] [address] PCP - General Family Medicine 03/12/20 Douglas Pacheco DO [facility] [place] [address] Referring Pulmonary and Critical Care Medicine 03/12/20 documented as of this encounter
--- OUTSIDE RECORDS SUMMARY | 2025-03-15 12:54 | XMS_ITS | Encounter Summary ---
Author Organization [facility] Address [address] [place] [address] Care Team Providers Care Wallpaper Printer Helper Name Role Phone Janet Benavides MD Primary Care Provider [phone] Douglas Pacheco DO Unavailable [phone] Source Comments In the event this information is protected by the Federal Confidentiality of Alcohol and Drug AbusePatient Records regulations: The Federal rules restrict any use of the information to criminally investigate or prosecute any alcohol or drug abuse patient.[facility] Reason for Visit * Reason Comments New Eval Chart Prep Encounter Details Date Type Department Care Team (Late st Contact Info) Description 03/18/2021 Abstract Pulmonary Medicine [address] [place] [address] Idalmis Bai RN New Eval Chart Prep Social History Tobacco Use Types Packs/Day Years Used Date Smoking Tobacco: Never Assessed Area Deprivation Index Answer Date Chirag rded National Score (1-100), lower number is lower ri sk Not on file 03/18/2021 State Score (1-10), lower number is lower risk N ot on file 03/18/2021 Data from: https://www.neighborhoodatlas.medicine.[facility].edu/. Last address used for calculation [...] 05/10/2025 12:30 PM EDT Procedure Pulmonary Medicine [address] [place] [address] Chronic obstructive pulmonary disease, unspecified COPD type (HCC) [J44.9] 05/10/2025 1:00 PM EDT Office Visit Pulmonary Medicine [address] [place] [address] [place] [address] [place] [address] Chronic obstructive pulmonary disease, unspecified COPD type (HCC) [J44.9] documented as of this encounter Visit Diagnoses Not on filedocumented in this encounter Care Teams Wallpaper Printer Helper Relationship Specialty Start Date End Date Janet Benavides MD [address] [place] [address] PCP - General Family Medicine 03/12/20 Douglas Pacheco DO [address] [place] [address] Referring Pulmonary and Critical Care Medicine 03/12/20 documented as of this encounter
--- OUTSIDE RECORDS SUMMARY | 2025-03-15 12:54 | XMS_ITS | Encounter Summary ---
Author Organization [facility] Address [address] [place] [address] Care Team Providers Care Box Toe Stitcher Name Role Phone Janet Benavides MD Primary Care Provider [phone] Douglas Pacheco DO Unavailable [phone] Source Comments In the event this information is protected by the Federal Confidentiality of Alcohol and Drug AbusePatient Records regulations: The Federal rules restrict any use of the information to criminally investigate or prosecute any alcohol or drug abuse patient.[facility] Encounter Details Date Type Department Care Team (Late st Contact Info) Description 12/23/2021 Patient Msg Transplant Center [address] [id number] Provider, [facility] Transplant Appointments Social History Tobacco Use Types Packs/Day Years Used Date Smoking Tobacco: Never Assessed Area Deprivation Index Answer Date Chirag rded National Score (1-100), lower number is lower ri sk Not on file 03/18/2021 State Score (1-10), lower number is lower risk N ot on file 03/18/2021 Data from: https://www.neighborhoodatlas.medicine.[facility].edu/. Last address used for calculation Not on [...] 05/10/2025 12:30 PM EDT Procedure Pulmonary Medicine [address] [place] [address] Chronic obstructive pulmonary disease, unspecified COPD type (HCC) [J44.9] 05/10/2025 1:00 PM EDT Office Visit Pulmonary Medicine [address] [place] [address] [place] [address] [place] [address] Chronic obstructive pulmonary disease, unspecified COPD type (HCC) [J44.9] documented as of this encounter Visit Diagnoses Not on filedocumented in this encounter Care Teams Box Toe Stitcher Relationship Specialty Start Date End Date Janet Benavides MD [address] [place] [address] PCP - General Family Medicine 03/12/20 Douglas Pacheco DO [address] [place] [address] Referring Pulmonary and Critical Care Medicine 03/12/20 documented as of this encounter
--- OUTSIDE RECORDS SUMMARY | 2025-03-15 12:54 | XMS_ITS | Encounter Summary ---
Author Organization [facility] Address [address] [place] [address] Care Team Providers Care Transfer Operator Name Role Phone Janet Benavides MD Primary Care Provider [phone] Douglas Pacheco DO Unavailable [phone] Source Comments In the event this information is protected by the Federal Confidentiality of Alcohol and Drug AbusePatient Records regulations: The Federal rules restrict any use of the information to criminally investigate or prosecute any alcohol or drug abuse patient.[facility] Encounter Details Date Type Department Care Team (Late st Contact Info) Description 11/04/2024 [place] [address] Provider, [facility] Medicare Coverage of Physical Exams Social History Tobacco Use Types Packs/Day Years Used Date Smoking Tobacco: Never Assessed Area Deprivation Index Answer Date Chirag rded National Score (1-100), lower number is lower ri sk Not on file 03/18/2021 State Score (1-10), lower number is lower risk N ot on file 03/18/2021 Data from: https://www.neighborhoodatlas.medicine.[facility].edu/. Last address used for calculation Not [...] 05/10/2025 12:30 PM EDT Procedure Pulmonary Medicine [address] [place] [address] Chronic obstructive pulmonary disease, unspecified COPD type (HCC) [J44.9] 05/10/2025 1:00 PM EDT Office Visit Pulmonary Medicine [address] [place] [address] [place] [address] [place] [address] Chronic obstructive pulmonary disease, unspecified COPD type (HCC) [J44.9] documented as of this encounter Visit Diagnoses Not on filedocumented in this encounter Care Teams Transfer Operator Relationship Specialty Start Date End Date Janet Benavides MD [address] [place] [address] PCP - General Family Medicine 03/12/20 Douglas Pacheco DO [address] [place] [address] Referring Pulmonary and Critical Care Medicine 03/12/20 documented as of this encounter
--- OUTSIDE RECORDS SUMMARY | 2025-03-15 12:54 | XMS_ITS | Clinical Summary ---
Author Organization [facility] Address [address] [place] [address] Care Team Providers Care Line Therapist Name Role Phone Unavailable Primary Care Provider [...]
--- OUTSIDE RECORDS SUMMARY | 2025-03-15 12:54 | XMS_ITS | Encounter Summary ---
Author Organization [facility] Address [address] [place] [address] Care Team Providers Care Manufacturing Executive Name Role Phone Janet Benavides MD Primary Care Provider [phone] Douglas Pacheco DO Unavailable [phone] Source Comments In the event this information is protected by the Federal Confidentiality of Alcohol and Drug AbusePatient Records regulations: The Federal rules restrict any use of the information to criminally investigate or prosecute any alcohol or drug abuse patient.[facility] Encounter Details Date Type Department Care Team (Latest Contact Info) Description 03/11/2025 Travel Social History Tobacco Use Types Packs/Day Years Used Date Smoking Tobacco: Never Assessed Area Deprivation Index Answer Date Chirag rded National Score (1-100), lower number is lower ri sk 61 03/11/2025 State Score (1-10), lower number is lower risk 4 03/11/2025 Data from: https://www.neighborhoodatlas.medicine.[facility].edu/. Last address used for calculation [address] [facility] 03/11/2025 Sex and Gender Information [...] 05/10/2025 12:30 PM EDT Procedure Pulmonary Medicine [address] [place] [address] Chronic obstructive pulmonary disease, unspecified COPD type (HCC) [J44.9] 05/10/2025 1:00 PM EDT Office Visit Pulmonary Medicine [address] [place] [address] [place] [address] [place] [address] Chronic obstructive pulmonary disease, unspecified COPD type (HCC) [J44.9] documented as of this encounter Visit Diagnoses Not on filedocumented in this encounter Care Teams Manufacturing Executive Relationship Specialty Start Date End Date Janet Benavides MD [address] [place] [address] PCP - General Family Medicine 03/12/20 Douglas Pacheco DO [address] [place] [address] Referring Pulmonary and Critical Care Medicine 03/12/20 documented as of this encounter
--- OUTSIDE RECORDS SUMMARY | 2025-03-15 12:54 | XMS_ITS | Encounter Summary ---
Author Organization [facility] Address [facility] [place] [address] Care Team Providers Care Bench Molder Apprentice Name Role Phone Janet Benavides MD Primary Care Provider [phone] Douglas Pacheco DO Unavailable [phone] Source Comments In the event this information is protected by the Federal Confidentiality of Alcohol and Drug AbusePatient Records regulations: The Federal rules restrict any use of the information to criminally investigate or prosecute any alcohol or drug abuse patient.[facility] Encounter Details Date Type Department Care Team ([facility] st Contact Info) Description 03/12/2025 Refill Pulmonary Medicine [address] [place] [address] [place] [address] [place] [address] Social History Tobacco Use Types Packs/Day Years Used Date Smoking Tobacco: Never Assessed Area Deprivation Index Answer Date Chirag rded National Score (1-100), lower number is lower ri sk 61 03/11/2025 State Score (1-10), lower number is lower risk 4 03/11/2025 Data from: https://www.neighborhoodatlas.medicine.[facility].edu/. Last address used for calculation [address] [facility] [facility] 03/11/2025 Sex and Gender Information Value Date Recorded Sex Assigned at Not on file Legal Sex Male 8:40 AM EDT Gender Identity Male 03/17/2021 10:03 PM EDT Sexual Orientation Straight 03/17/2021 10 :03 PM EDT documented as of this encounter Miscellaneous Notes * Addendum Note - Francisco Mcneil LPN - 03/15/2025 11:42 AM EDTAddended by: FRANCISCO MCNEIL on: 03/15/2025 11:42 AM Modules accepted: Orders * Telephone Encounter - Khadijah Pascual - 03/15/2025 11:37 AM EDT Patient states needs to send over a script for CPAP and supplies to [place] [facility] Fax not given Please advise * Telephone Encounter - Penelope Armas RN - 03/13/2025 2:31 PM EDT Patient returned call to the office today. Read message below and verbalized understanding. Doesn't use MyChart. * Telephone Encounter - Francisco Mcneil LPN - 03/12/2025 8:59 AM EDT Leslye Lester MD P Avw Pulm Nurse PLS GET pap REPORT FROM [facility] Thanks Called and spoke with [facility], was informed pt needs to call to establish that Dr. Lester is provider andthey can send us information on the patient. Called and lvm x1 for pt. Sent MCM x1 documented in this encounter Plan of Treatment Upcoming Encounters Date Type Department Care Team (Late st Contact Info) Description 05/10/2025 12:30 PM EDT Procedure Pulmonary Medicine [address] [place] [address] Chronic obstructive pulmonary disease, unspecified COPD type (HCC) [J44.9] 05/10/2025 1:00 PM EDT Office Visit Pulmonary Medicine [address] [place], [place] [id number] [place] [address] [place] [address] Chronic obstructive pulmonary disease, unspecified COPD type (HCC) [J44.9] documented as of this encounter Visit Diagnoses Diagnosis RANCHO (obstructive sleep apnea)- Primary Obstructive sleep apnea (adult) (pediatric) documented in this encounter Care Teams Bench Molder Apprentice Relationship Specialty Start Date End Date Janet Benavides MD [address] [place] [address] PCP - General Family Medicine 03/12/20 Douglas Pacheco DO [address] [place] [address] Referring Pulmonary and Critical Care Medicine 03/12/20 documented as of this encounter
--- OUTSIDE RECORDS SUMMARY | 2025-03-15 12:55 | XMS_ITS | Encounter Summary ---
Author Organization [facility] Address [address] [place] [address] Care Team Providers Care Top Cleaner Name Role Phone Janet Benavides MD Primary Care Provider [phone] Douglas Pacheco DO Unavailable [phone] Source Comments In the event this information is protected by the Federal Confidentiality of Alcohol and Drug AbusePatient Records regulations: The Federal rules restrict any use of the information to criminally investigate or prosecute any alcohol or drug abuse patient.[facility] Encounter Details Date Type Department Care Team (Late st Contact Info) Description 11/26/2021 Patient Msg Transplant Center [address] [place] [phone] Provider, [facility] Voice Mail Social History Tobacco Use Types Packs/Day Years Used Date Smoking Tobacco: Never Assessed Area Deprivation Index Answer Date Chirag rded National Score (1-100), lower number is lower ri sk Not on file 03/18/2021 State Score (1-10), lower number is lower risk N ot on file 03/18/2021 Data from: https://www.neighborhoodatlas.medicine.[facility].edu/. Last address used for calculation Not on [...] 05/10/2025 12:30 PM EDT Procedure Pulmonary Medicine [address] [place] [address] Chronic obstructive pulmonary disease, unspecified COPD type (HCC) [J44.9] 05/10/2025 1:00 PM EDT Office Visit Pulmonary Medicine [address] [place] [address] [place] [address] [place] [address] Chronic obstructive pulmonary disease, unspecified COPD type (HCC) [J44.9] documented as of this encounter Visit Diagnoses Not on filedocumented in this encounter Care Teams Top Cleaner Relationship Specialty Start Date End Date Janet Benavides MD [address] [place] [address] PCP - General Family Medicine 03/12/20 Douglas Pacheco DO [address] [place] [address] Referring Pulmonary and Critical Care Medicine 03/12/20 documented as of this encounter
--- OUTSIDE RECORDS SUMMARY | 2025-03-15 12:55 | XMS_ITS | Clinical Summary ---
Author Organization [facility] Address [address] [place] [address] Care Team Providers Care Tour Narrator Name Role Phone Janet Benavides MD Primary Care Provider [phone] Douglas Pacheco DO Unavailable [phone] Allergies Active Allergy Reactions Criticality Noted Date Comments Metformin Intolerance 03/25/2021 diarrhea Medications ARIPiprazole (ABILIFY) 10 mg tablet Take 10 mg by mouth once daily. 02/28/20 21 Active aspirin, enteric coated (ASPIRIN, ENTERIC COATED) 81 mg EC tablet Take 81 mg by mouth once daily. 02/08/20 21 Active FREESTYLE MARTIN 2 SENSOR kit as directed. 02/18/20 21 Active TRELEGY ELLIPTA 100-62.5-25 mcg INHALE 1 PUFF BY MOUTH DAILY 02/18/20 21 Active glipiZIDE (GLUCOTROL) 10 mg tablet Take 10 mg by mouth twice daily. 02/08/20 21 Active HYDROcodone-a cetaminophen (NORCO) 5-325 mg per tablet TAKE 1 TABLET BY MOUTH FOUR TIMES A DAY NEEDED 03/02/20 21 Active metoprolol succinate ER (TOPROL XL) 25 mg 24 hr tablet Take 25 mg by mouth once daily. 02/08/20 21 Active omeprazole (PRILOSEC) 20 mg capsule Take 20 mg by mouth once daily. 02/25/20 21 Active OZEMPIC 0.25 mg or 0.5 mg(2 mg/1.5 mL) pnij INJECT 0.5MG SUBCUTANEOUSLY WEEKLY 02/18/20 21 Active theophylline ER (UNIPHYL) 400 mg 24 hr tablet Take 400 mg by mouth twice daily. 12/26/19 21 Active valACYclovir (VALTREX) 1 gram Take 2,000 mg by mouth twice daily. 12/29/19 Active VENLAFAXINE ER 150 MG TABLET,EXTEND ED RELEASE 24 HR Take 150 mg by mouth twice daily. 03/03/20 Active hgmdq-7-bedzm inase inhibitor (Human) 1,000 mg in water for injection Inject 1,000 mg intravenously one time a week. 03/25/20 Active pravastatin (PRAVACHOL) 40 mg tablet Take 1 tablet by mouth daily at bedtime. 03/25/20 Active predniSONE (DELTASONE) 10 mg tablet Take 1 tablet by mouth once daily. 03/25/20 Active guaiFENesin (MUCINEX) 600 mg 12 hr tablet Take 2 tablets by mouth twice daily. 03/25/20 Active dilTIAZem CD (CARDIZEM CD) 240 mg 24 hr capsule Take 1 capsule by mouth once daily. 03/25/20 Active albuterol (PROVENTIL) 2.5 mg /3 mL (0.083 %) nebulizer solution Use 3 mL via nebulizer three times a day as needed for wheezing/shortnes s of breath. Inhale over 5-15 minutes 360 mL 4 03/11/20 Active Ipratropium [place] (ATROVENT) 21 mcg (0.03 %) nasal spray Use 2 sprays in the nose every 12 hours. 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 Essential hypertension 02/14/2019 Chronic obstructive pulmonary disease 01/17/2019 Encounters Date Type Department Care Team Description 03/13/2025 Telephone Pulmonary Medicine [address] [facility] [place] [address] Sara Lester MD 03/12/2025 Refill Pulmonary Medicine [address] [place] [address] Sara Lester MD 03/11/2025 2:30 PM EDT Procedure Pulmonary Medicine [address] [place] [address] Spirometry 03/11/2025 1:45 PM EDT Office Visit Pulmonary Medicine [id number] [place] [address] Sara Lester MD Chronic obstructive pulmonary disease, unspecified COPD type (HCC) (Primary Dx); Chronic respiratory failure with hypoxia (HCC); Aegdp-4-swkvhruitmb deficiency (HCC); Chronic rhinitis; Obstructive sleep apnea (adult) (pediatric); Former smoker 03/11/2025 12:45 PM EDT Procedure Pulmonary Medicine [id number] [place] [address] Spirometry 03/11/2025 12:15 PM EDT Procedure Pulmonary Medicine [id number] [place] [address] Spirometry 03/11/2025 Travel 03/06/2025 Orders Only Respiratory [place] [address] [place] [address] Sara Lester MD Chronic obstructive pulmonary disease, unspecified COPD type (HCC) (Primary Dx) from Last 3 Months Social History Tobacco Use Types Packs/Day Years Used Date Smoking Tobacco: Never Assessed Area Deprivation Index Answer Date Chirag rded National Score (1-100), lower number is lower ri sk 61 03/11/2025 State Score (1-10), lower number is lower risk 4 03/11/2025 Data from: https://www.neighborhoodatlas.medicine.[facility].edu/. Last address used for calculation [address] 03/11/2025 Sex and Gender Information Value Date Recorded Sex Assigned at Not on file Legal Sex Male 8:40 AM EDT Gender Identity Male 03/17/2021 10:03 PM EDT Sexual Orientation Straight 03/17/2021 10 :03 PM EDT Last Filed Vital Signs Vital Sign Reading Time Taken Comments Blood Pressure 134/84 03/11/2025 1:27 PM EDT Pulse 113 03/11/2025 1:27 PM EDT Temperature 36.3 C (97.3 F) 03/25/2021 1:59 PM EDT Respiratory Rate - - Oxygen Saturation 97% 03/11/2025 1:27 PM EDT 3L Inhaled Oxygen Concentration - - Weight 106.6 kg (235 lb) 03/11/2025 1:27 PM EDT Height 175.3 cm (5' 9.02 ) 03/25/2021 1:59 PM ED T Body Mass Index 34.69 03/25/2021 1:59 PM EDT Plan of Treatment Upcoming Encounters Date Type Department Care Team (Late st Contact Info) Description 05/10/2025 12:30 PM EDT Procedure Pulmonary Medicine [address] [place] [address] Chronic obstructive pulmonary disease, unspecified COPD type (HCC) [J44.9] 05/10/2025 1:00 PM EDT Office Visit Pulmonary Medicine [address] [place] [address] [place] [address] [place] [address] Chronic obstructive pulmonary disease, unspecified COPD type (HCC) [J44.9] Health Maintenance Due Date Last Done Comments HbA1C 11/04/1964 Diabetic Foot Exam 11/04/1969 Dilated Retinal Exam 11/04/1969 Urine Albumin:Creatinine Ratio 11/04/1969 Annual PCP Team Chronic Disease Visit 11/04/1977 Anxiety Screening 11/04/1977 DTaP,Tdap,Td Vaccine (1 - Tdap) 11/04/1978 Hepatitis A Vaccine (1 of 2 - Risk 2-dose series) 11/04/1978 Shingrix Vaccine (1 of 2) 11/04/1978 CT Colonography 11/04/2004 Cologuard (FIT-DNA) 11/04/2004 Colonoscopy 11/04/2004 Colorectal Cancer Screening 11/04/2004 Fecal Occult Blood 11/04/2004 Prostate Cancer Screening Discussion 11/04/2004 Sigmoidoscopy 11/04/2004 Pneumococcal Vaccine: 50+ (2 of 2 - PPSV23, PCV20, or PCV21) 07/05/2018 05/10/2018 RSV Vaccine (1 - Risk 60-74 years 1-dose series) 2019 LDL Cholesterol 03/24/2022 03/24/2021 Medicare Advantage Annual We llness Visit 07/18/2024 Advance Directive Discussion 11/04/2024 Influenza Vaccine (#1) 2025 , 05/16/2020, 05/10/2018 HIV Screening Completed 03/24/2021 Hepatitis C Screening Completed 03/24/2021 Procedures Procedure Name Priority Date/Time Associated Diagnosis Comments SHAMIR/AMINOPHYLLINE Routine 03/11/2025 3: 24 PM EDT Chronic obstructive pulmonary disease, unspecified COPD type (HCC) COMPREHENSIVE METABOLIC PANEL Routine 03/11/2025 3:24 PM EDT Chronic obstructive pulmonary disease, unspecified COPD type (HCC) CBC + DIFF Routine 03/11/2025 3:24 PM EDT Chronic obstructive pulmonary disease, unspecified COPD type (HCC) AHBXF-0-OQZJEROIT BL Routine 03/11/2025 3:24 PM EDT Chronic obstructive pulmonary disease, unspecified COPD type (HCC) LUNG VOLUMES Routine 03/11/2025 2:24 PM EDT Chronic obstructive pulmonary disease, unspecified COPD type (HCC) LUNG DIFFUSION CAPACITY (DLCO) Routine 03/11/2025 12:26 PM EDT Chronic obstructive pulmonary disease, unspecified COPD type (HCC) SPIROMETRY WITH DILATOR IF OBSTRUCTED Routine 03/11/2025 12:26 PM EDT Chronic obstructive pulmonary disease, unspecified COPD type (HCC) HIV 1/2 COMBO WITH REFLEX TO DIFFERENTIATION Routine 03/24/2021 3:44 PM EDT Shortness of breath Lung transplant candidate Bone 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) use of systemic steroids Chronic fatigue SOB (shortness of breath) Centrilobular emphysema (HCC) *HEP C AB Routine 03/24/2021 3:44 PM EDT Shortness of breath Lung transplant candidate Bone 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) 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 of systemic steroids Chronic fatigue SOB (shortness of breath) Centrilobular emphysema (HCC) LIPID PANEL, FASTING Routine 03/24/2021 3:44 PM EDT Shortness of breath Lung transplant candidate Bone disorder detention (current) use of systemic steroids Chronic fatigue SOB (shortness of breath) Centrilobular emphysema (HCC) from Last 3 Months or Most Recently Relevant to Health Maintenance Results * (ABNORMAL) THEOPHYLLINE/AMINOPHYLLINE (03/11/2025 3:24 PM EDT) [facility] Theophylline 30.0(H) 10.0 - 20.0 ug/mL 03/11/2025 9:56 PM EDT [facility] Comment:Reference ranges and high/low indicator flags are provided as general guidelines only. The treating physician must determine appropriate target levels/dosing based on the specific clinical situation. Blood BLOOD SPECIMEN / Unknown Venipuncture / Unknown 03/11/2025 3:24 PM EDT 03/11/2025 3:24 PM EDT us Sara Lester MD LABORATORY Final Result [facility] [address] [address], * (ABNORMAL) COMPREHENSIVE METABOLIC PANEL (03/11/2025 3:24 PM EDT) [facility] Protein, Total 7.6 6.3 - 8.0 g/dL 03/11/2025 4:31 PM EDT [facility] Albumin 4.7 3.9 - 4.9 g/dL 03/11/2025 4:31 PM [facility] Calcium, Total 9.9 8.5 - 10.2 mg/dL 03/11/2025 4:31 PM [facility] Bilirubin, Total 0.4 0.2 - 1.3 mg/dL 03/11/2025 4:31 PM T [facility] Alkaline Phosphatase 115(H) 38 - 113 U/L 03/11/2025 4:31 PM [facility] AST 10(L) 14 - 40 U/L 03/11/2025 4:31 PM [facility] ALT 12 10 - 54 U/L 03/11/2025 4:31 PM [facility] Glucose 156(H) 74 - 99 mg/dL 03/11/2025 4:31 PM [facility] Comment: The [place] Diabetes Association (ADA) provides guidance for cutoff [...] Standards of Medical Care in Diabetes 2016, [place] [employer] Association. Diabetes Care. 2016.39(Suppl 1). BUN 21 9 - 24 mg/dL 03/11/2025 4:31 PM [facility] Creatinine 0.85 0.73 - 1.22 mg/dL 03/11/2025 4:31 PM [facility] Sodium 140 136 - 144 mmol/L 03/11/2025 4:31 PM [facility] Potassium 4.0 3.7 - 5.1 mmol/L 03/11/2025 4:31 PM [facility] Chloride 100 98 - 107 mmol/L 03/11/2025 4:31 PM [facility] CO2 22 22 - 30 mmol/L 03/11/2025 4:31 PM [facility] Anion Gap 18(H) 8 - 15 mmol/L 03/11/2025 4:31 PM [facility] Estimated Glomerular Filtration Rate 96 >=60 mL/min/1. 73m 03/11/2025 4:31 PM [facility] Comment:Estimated Glomerular Filtration Rate (eGFR) is [...] PM EDT 03/11/2025 3:24 PM EDT us Sara Lester MD LABORATORY Final Result [facility] [address] [facility] [place] [address], [place] * (ABNORMAL) COMPLETE BLOOD COUNT AND DIFFERENTIAL (03/11/2025 3:24 PM EDT) WBC 13.55(H) 3.70 - 11.00 k/uL 03/11/2025 3:43 PM EDT [facility] RBC 6.39(H) 4.20 - 6.00 m/uL 03/11/2025 3:43 PM EDT [facility] Hemoglobin 16.6 13.0 - 17.0 g/dL 03/11/2025 3:43 PM T [facility] Hematocrit 52.5(H) 39.0 - 51.0 % 03/11/2025 3:43 PM T [facility] MCV 82.2 80.0 - 100.0 fL 03/11/2025 3:43 PM T [facility] MCH 26.0 26.0 - 34.0 pg 03/11/2025 3:43 PM [facility] MCHC 31.6 30.5 - 36.0 g/dL 03/11/2025 3:43 PM T [facility] RDW-CV 17.0(H) 11.5 - 15.0 % 03/11/2025 3:43 PM T [facility] Platelet Count 359 150 - 400 k/uL 03/11/2025 3:43 PM T [facility] MPV 9.2 9.0 - 12.7 fL 03/11/2025 3:43 PM [facility] Neutrophils % 87.7 % 03/11/2025 3:43 PM T [facility] Abs Neut 11.88(H) 1.45 - 7.50 k/uL 03/11/2025 3:43 PM EDT [facility] Lymphocytes % 7.5 % 03/11/2025 3:43 PM EDT [facility] Abs Lymph 1.01 1.00 - 4.00 k/uL 03/11/2025 3:43 PM EDT [facility] Monocytes % 3.9 % 03/11/2025 3:43 PM EDT [facility] Abs Canadian 0.53 <0.87 k/uL 03/11/2025 3:43 PM EDT [facility] Eosinophils % 0.1 % 03/11/2025 3:43 PM EDT [facility] Abs Eosin <0.03 <0.46 k/uL 03/11/2025 3:43 PM EDT [facility] Basophils % 0.4 % 03/11/2025 3:43 PM EDT [facility] Abs Baso 0.06 <0.11 k/uL 03/11/2025 3:43 PM EDT [facility] Immature Granulocytes % 0.4 % 03/11/2025 3:43 PM EDT [facility] Abs Immature Gran 0.06 <0.10 k/uL 03/11/2025 3:43 PM EDT [facility] NRBC 0.1 /100 WBC 03/11/2025 3:43 PM EDT [facility] Absolute nRBC 0.02(H) <0.01 k/uL 03/11/2025 3:43 PM EDT [facility] Diff Type Auto 03/11/2025 3:43 PM EDT [facility] Blood BLOOD SPECIMEN / Unknown Venipuncture / Unknown 03/11/2025 3:24 PM EDT 03/11/2025 3:24 PM EDT us Sara Lester MD LABORATORY Final Result [facility] [address] [facility] [place] [address], * [id number] (03/11/2025 3:24 PM EDT) Alpha 1 Antitrypsin 112 90 - 200 mg/dL 03/12/2025 10:09 AM EDT [facility] Blood BLOOD SPECIMEN / Unknown Venipuncture / Unknown 03/11/2025 3:24 PM EDT 03/11/2025 3:24 PM EDT Sara Lester MD LABORATORY Final Result [facility] [address] [place] [address], [place] * LUNG VOLUMES (03/11/2025 2:24 PM [...] FUNCTION LAB - 03/12/2025 1:37 PM EDT [facility] [address] 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 Patient has dyspnea, COPD and was tachypneic. 2 techs attempted. Best test reported despite difficult testing session. //URMILA IMPRESSION: Lung volumes (FRC and/or RV) are elevated indicating hyperinflation and air trapping. Electronically Signed On 03-12-2025 13:37:37 EDT by Tory Mukherjee MD ID: [id number] Name: RICARDO HALLMAN Race: White Ht: 68.90 in Wt: 240.30 lbs Age: 64 Gender: Male : 1960 Dx: Chronic obstructive pulmonary disease, unspecified Smoking Hx: Non-smoker Doctor: SARA LESTER Test Date: 03/11/2025 Site: AV Tech: Gabbie Garcia PRE-BRONCH POST-BRONCH [employer] LLN [...] Best test reported despite difficult testing session. //URMILA Sara Lester MD SCHEDULED PROCEDURES Final Resul t [facility] [address] [place] [address] * LUNG DIFFUSION CAPACITY (DLCO) (03/11/2025 12:26 [...] ULN (L/S) 1.83 L/S [facility] [id number]% PRE (L/S) 0.30 L/S [facility] ZLP79-59% POST (L/S) 0.32 L/S [facility] ONP08-24% PREDICTED (L/S) 2.61 L/S [facility] CVU36-61% LLN (L/S) 1.21 L/S PULMON[facility] FUNCTION LAB [...] FUNCTION LAB - 03/12/2025 1:32 PM EDT [facility] [address] [facility] 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 //RK Sara Lester MD SCHEDULED PROCEDURES Final Resul t [facility] [address] [place] [address] * SPIROMETRY WITH DILATOR IF OBSTRUCTED (03/11/2025 12:26 PM EDT) 03/11/2025 12:2 6 PM EDT Narrative PULMONARY FUNCTION LAB - 03/12/2025 1:32 PM EDT [facility] [address] [facility] [place] [address] Test Date: 2025-03-11 Pat Name: RICARDO HALLMAN Department: Room: Gender: Male Roof Panel Hanger: : 1960 Requested By: Order Number: [id number] Reading MD: Tory Mukherjee MD Interpretive Statements [...] 13:32:49 EDT by Tory Mukherjee MD ID: [id number] Name: RICARDO HALLMAN Race: White Ht: 68.90 in Wt: 240.30 lbs Age: 64 Gender: Male : 1960 Dx: COPD_ Smoking Hx: Non-smoker Doctor: SARA LESTER Test Date: 03/11/2025 Site: Tech: Meghan Salazar PRE-BRONCH [employer] Pred ULN %Pred ZScore [place] %Pred %Chg ZScore SPIROMETRY FVC 3.71 3.00 [...] 90-100 0.07 0 FIVC 3.40 3.54 4 [id number] 0.30 1.21 2.61 4.56 11 -3.39 0.32 [...] = 112/min, HR post = 114/min. //RK Sara Tayler GOSS SCHEDULED PROCEDURES Final Resul t PULMONARY FUNCTION LAB [address] [facility] [place] [id number] * HIV 1 2 COMBO(AG/AB),WITH REFLEX TO DIFFERENTIATION (03/24/2021 3:44 PM EDT) HIV 12 Combo (Ag/Ab) Non Reactive Non Reactive 03/24/2021 6:36 PM EDT [facility] HIV 1/2 Ab Confirmatory Test Not Indicated 03/24/2021 6:36 PM EDT [facility] HIV Interpretation Negative 03/24/2021 6:36 PM EDT [facility] Comment: No evidence of HIV-1 or HIV-2 infection. Should recent infection be suspected, repeat testing may be considered 2-3 weeks after this draw. HIV Information: [place] Rev. Code 3701.243(E): This information has been [...] Carol Ann Ybarra DO LABORATORY Final Result [facility] [address] [facility] [place] [address] [facility] [address] [place] [address] * (ABNORMAL) LIPID PANEL BASIC (03/24/2021 3:44 PM EDT) Cholesterol, Total 220(H) <200 mg/dL 03/24/2021 6:37 PM EDT [facility] Comment: <200 mg/dL, Desirable 200-239 mg/dL, Borderline high >239 mg/dL, High Triglyceride 244(H) <150 mg/dL 03/24/2021 6:37 PM EDT [facility] Comment: <150 mg/dL, Normal 150-199 mg/dL, Borderline high 200-499 mg/dL, High >499 mg/dL, Very high HDL Cholesterol 99 >39 mg/dL 6:37 PM T [facility] Comment: 40-59 mg/dL, Acceptable >59 mg/dL, High: Negative risk factor for coronary heart disease <40 mg/dL, Low: Positive risk factor for coronary heart disease LDL Cholesterol, Calculated 72 <100 mg/dL 03/24/2021 6:37 PM T [facility] Comment: <100 mg/dL, Optimal 100-129 mg/dL, Near optimal/above optimal 130-159 mg/dL, Borderline high 160-189 mg/dL, High >189 mg/dL, Very high Secondary prevention optimal LDL Cholesterol levels are recommended to be < 70 mg/dL Non HDL Cholesterol 121 <130 mg/dL 03/24/2021 6:37 PM T [facility] Comment: <130 mg/dL, Optimal 130-159 mg/dL, Near optimal/above optimal 160-189 mg/dL, Borderline high 190-219 mg/dL, High >219 mg/dL, Very high Secondary prevention optimal non HDL Cholesterol levels are recommended to be < 100 mg/dL Fasting Time Unknown hrs 03/24/2021 6:37 PM EDT [facility] VLDL Cholesterol 49(H) <30 mg/dL 03/24/20 6:37 PM T [facility] TC:HDL Ratio 2.22 <5.10 03/24/2021 6:37 PM EDT [facility] LDL:HDL Ratio 0.73 <2.54 03/24/2021 6:37 PM EDT [facility] Comment: Reference: 1. National Cholesterol Education Program ATP III Guideline At-A-Glance Quick Desk Reference: National Heart, Lung, and Blood [place]. National Institutes of Health. 2001: NIH Publication No. 01-3305. 2. An International Atherosclerosis Society position paper: global recommendations for the management of dyslipidemia: executive summary, Atherosclerosis. 2014: 232(2):410-413. Blood BLOOD SPECIMEN / Unknown 03/24/2021 3:44 PM EDT 03/24/2021 3:46 PM EDT Carol Ann Ybarra DO LABORATORY Final Result Performing Organization Address [facility] Co de Phone Number [facility] [address] [place] [address] [facility] [address] [place] [address] * (ABNORMAL) HEP REMOTE PANEL BL (03/24/2021 3:44 PM EDT) Hep B Core Ab, Total Negative Negative 03/24/2021 6:57 PM EDT [facility] Hep C Antibody IA Negative Negative 03/24/2021 6:58 PM EDT [facility] HBsAg Negative Negative 03/24/2021 6:57 PM EDT [facility] Hep B Surface Ab, Qual Positive(A) Negative 03/24/2021 6:57 PM EDT [facility] Comment: These results are consistent with previous exposure and/or immunity to the hepatitis B virus antigen. Blood BLOOD SPECIMEN / Unknown 03/24/2021 3:44 PM EDT 03/24/2021 3:46 PM EDT Carol Ann Ybarra DO LABORATORY Final Result Performing Organization Address [facility]/ZIP Co de Phone Number [facility] [address] [place] [address] [facility] [address] [place] [address] from Last 3 Months or Most Recently Relevant to Health Maintenance Insurance [employer] H[employer] Care Teams Tour Narrator Relationship Specialty Start Date End Date Janet Benavides MD [address] [place] [id number] PCP - General Family Medicine 03/12/20 Douglas Pacheco DO [address] [place] [address] Referring Pulmonary and Critical Care Medicine 03/12/20
--- OUTSIDE RECORDS SUMMARY | 2025-03-15 12:55 | XMS_ITS | Encounter Summary ---
Author Organization [facility] Address [address] [place] [address] Care Team Providers Care Emt Driver Name Role Phone Janet Benavides MD Primary Care Provider [phone] Douglas Pacheco DO Unavailable [phone] Source Comments In the event this information is protected by the Federal Confidentiality of Alcohol and Drug AbusePatient Records regulations: The Federal rules restrict any use of the information to criminally investigate or prosecute any alcohol or drug abuse patient.[facility] Reason for Referral * Outpatient Procedure (Routine) - Closed Specialty Diagnoses / Procedures Referred By Contac t Referred To Contact [facility] Diagnoses Chronic obstructive pulmonary disease, unspecified COPD type (HCC) Procedures SPIROMETRY WITH DILATOR IF OBSTRUCTED BRNCDILAT RSPSE SPMTRY PRE&[place] [address] [place] [address] Phone: tel: fax: [facility] [address] [place] [address] Referral ID Status Reason Start Date Expiration Date V isits Requested Visits Authorized [id number] Closed Auto-Generate d Referral 03/06/2025 04/05/2026 1 1 * Outpatient Procedure (Routine) - Closed Specialty Diagnoses / Procedures Referred By Contac t Referred To Contact [facility] Diagnoses Chronic obstructive pulmonary disease, unspecified COPD type (HCC) Procedures LUNG DIFFUSION CAPACITY (DLCO) [place] [address] [place] [address] Phone: tel: fax: [facility] [address] [place] [address] Referral ID Status Reason Start Date Expiration Date V isits Requested Visits Authorized [id number] Closed Auto-Generate d Referral 03/06/2025 04/05/2026 1 1 Encounter Details Date Type Department Care Team (Late st Contact Info) Description 03/06/2025 Orders Only [facility] [address] [place] [address] [place] [address] [place], [place] [phone] Chronic obstructive pulmonary disease, unspecified COPD type (HCC) (Primary Dx) Social History Tobacco Use Types Packs/Day Years Used Date Smoking Tobacco: Never Assessed Area Deprivation Index Answer Date Chirag rded National Score (1-100), lower number is lower ri sk Not on file 03/18/2021 State Score (1-10), lower number is lower risk N ot on file 03/18/2021 Data from: https://www.neighborhoodatlas.medicine.[facility].edu/. Last address used for calculation Not [...] 05/10/2025 12:30 PM EDT Procedure Pulmonary Medicine [id number] [place] [id number] Chronic obstructive pulmonary disease, unspecified COPD type (HCC) [J44.9] 05/10/2025 1:00 PM EDT Office Visit Pulmonary Medicine [address] [place] [address] [place] [address] [place] [address] Chronic obstructive pulmonary disease, unspecified COPD type (HCC) [J44.9] Scheduled Orders Name Type Priority Associated Diagnoses Orde r Schedule XR CHEST 2V FRONTAL/LAT Radiology Routine Chronic obstructive pulmonary disease, unspecified COPD type (HCC) 1 Occurrences starting 03/06/2025 until 04/05/2026 documented as of this encounter Results * SPIROMETRY WITH DILATOR IF OBSTRUCTED (03/11/2025 12:26 PM EDT) 03/11/2025 12:2 6 PM EDT Narrative PULMONARY FUNCTION LAB - 03/12/2025 1:32 PM EDT [facility] [address] [facility] [place] [address] Test Date: 2025-03-11 Pat Name: RAMIRO HALLMAN Department: Room: Gender: Male Tear Down Man: : 1960 Requested By: Order Number: [id number] Reading MD: Tory Mukherjee MD Interpretive Statements [...] 13:32:49 EDT by Tory Mukherjee MD ID: [id number] Name: RAMIRO HALLMAN Race: White Ht: 68.90 [...] 90-100 0.07 0 FIVC 3.40 3.54 4 BUL34-37 0.30 1.21 2.61 4.56 11 -3.39 0.32 [...] = 112/min, HR post = 114/min. //RK us Leslye Lester MD SCHEDULED PROCEDURES Final Resul t PULMONARY FUNCTION LAB [address] [facility] [place] [address] * LUNG DIFFUSION CAPACITY (DLCO) (03/11/2025 12:26 [...] ULN (L/S) 1.83 L/S PULMON[facility]CTION LAB HWP32-41% PRE (L/S) 0.30 L/S PULMON[facility]CTION LAB PFZ58-17% POST (L/S) 0.32 L/S PULMONARY FUNCTION LAB AQD16-65% PREDICTED (L/S) 2.61 L/S PULMONARY FUNCTION LAB YIC30-73% LLN (L/S) 1.21 L/S PULMONARY FUNCTION LAB [...] FUNCTION LAB - 03/12/2025 1:32 PM EDT [facility] [address] [facility] [place] [address] Test Date: 2025-03-11 Pat Name: RAMIRO HALLMAN Department: Room: Gender: Male Tear Down Man: : 1960 Requested By: Order Number: [id number] Reading MD: Tory Mukherjee MD Interpretive Statements [...] 13:32:49 EDT by Tory Mukherjee MD ID: [id number] Name: RAMIRO HALLMAN Race: White Ht: 68.90 [...] 90-100 0.07 0 FIVC 3.40 3.54 4 FRK31-64 0.30 1.21 2.61 4.56 11 -3.39 0.32 [...] 112/min, HR post = 114/min. //RK Leslye Lester MD SCHEDULED PROCEDURES Final Resul t PULMONARY FUNCTION LAB [address] [facility] [place] [address] documented in this encounter Visit Diagnoses Diagnosis Chronic obstructive pulmonary disease, unspecified COPD type (HCC)- Primary Chronic obstructive pulmonary disease, unspecified COPD type (HCC) Chronic obstructive pulmonary disease, unspecified COPD type (HCC) documented in this encounter Care Teams Emt Driver Relationship Specialty Start Date End Date Janet Benavides MD [address] [place] [address] PCP - General Family Medicine 03/12/20 Douglas Pacheco DO [address] [place] [address] Referring Pulmonary and Critical Care Medicine 03/12/20 documented as of this encounter
--- OUTSIDE RECORDS SUMMARY | 2025-03-15 12:55 | XMS_ITS | Clinical Summary ---
Author Organization [facility] Address [address] [place] [address] Phone Care Team Providers Care Platform Operations Director Name Role Phone Unavailable Primary Care Provider [...]
--- OUTSIDE RECORDS SUMMARY | 2025-03-15 12:55 | XMS_ITS | Encounter Summary ---
Author Organization [facility] Address [facility] [place] [address] Care Team Providers Care Oncology Navigator Name Role Phone Janet Benavides MD Primary Care Provider [phone] Douglas Pacheco DO Unavailable [phone] Source Comments In the event this information is protected by the Federal Confidentiality of Alcohol and Drug AbusePatient Records regulations: The Federal rules restrict any use of the information to criminally investigate or prosecute any alcohol or drug abuse patient.[facility] Reason for Visit * Reason Comments chart prep/review for OPD 11/04 Encounter Details Date Type Department Care Team (Late st Contact Info) Description 11/03/2021 Abstract Pulmonary Medicine [address] [address] Molly Gan APRN.[employer]OTION PI[employer]URE EQUIPMENT MACHINIST [address] [place], [place] [phone] chart prep/review for OPD 11/04 Social History Tobacco Use Types Packs/Day Years Used Date Smoking Tobacco: Never Assessed Area Deprivation Index Answer Date Chirag rded National Score (1-100), lower number is lower ri sk Not on file 03/18/2021 State Score (1-10), lower number is lower risk N ot on file 03/18/2021 Data from: https://www.neighborhoodatlas.medicine.[facility]/. Last address used for calculation Not on [...] 05/10/2025 12:30 PM EDT Procedure Pulmonary Medicine [address] [place] [address] Chronic obstructive pulmonary disease, unspecified COPD type (HCC) [J44.9] 05/10/2025 1:00 PM EDT Office Visit Pulmonary Medicine [address] [place] [address] [place] [address] [place] [address] Chronic obstructive pulmonary disease, unspecified COPD type (HCC) [J44.9] documented as of this encounter Visit Diagnoses Not on filedocumented in this encounter Care Teams Oncology Navigator Relationship Specialty Start Date End Date Janet Benavides MD [address] [place] [address] PCP - General Family Medicine 03/12/20 Douglas Pacheco DO [address] [place] [address] Referring Pulmonary and Critical Care Medicine 03/12/20 documented as of this encounter
--- OUTSIDE RECORDS SUMMARY | 2025-03-15 12:55 | XMS_ITS | Clinical Summary ---
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 04/2025 terminal supervisor current use of inhaled steroid 025 shelter current use of insulin 01/24/2025 Obesity 01/24/2025 Bipolar 1 disorder 03/25/2021 Depression 03/25/2021 GERD (gastroesophageal reflux disease) Obstructive sleep apnea syndrome 03/25/2021 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 Chronic respiratory failure with hypoxia 021 Left ventricular systolic dysfunction 12/23/2020 Diabetes mellitus 02/14/2019 Essential hypertension 02/14/2019 Coronary atherosclerosis 01/17/2019 Chest pain 12/04/2018 Dyspnea 12/04/2018 Encounters Date Type Department Care Team Description 02/11/2025 Telephone [facility] [address] [place] [address] Racheal Joshi MA 01/24/2025 2:00 PM EDT Office Visit [facility] [address] [place] [address] Calli Devlin MD Chronic respiratory failure with hypoxia (CMS/HCC) (Primary Dx); Pjeov-7-bqktkuvpohv deficiency (CMS/HCC); Essential hypertension; shelter current use of inhaled steroid; SVT (supraventricular tachycardia); Non-ischemic cardiomyopathy (CMS/HCC) 01/24/2025 Orders Only [facility] [address] [place] [facility] [place] [address] Vianney Davis MA SVT (supraventricular tachycardia) (Primary Dx); PIKE (dyspnea on exertion) 01/24/2025 Refill [facility] [address] [place] [facility] [place] [address] Racheal Joshi MA 01/24/2025 Orders Only [facility] [address] [place] [facility] [place] [address] Racheal Joshi MA Tachycardia (Primary Dx) 01/23/2025 Orders Only [facility] [address] [place] [address] Provider, MD [place] from Last 3 Months [...] Information Value Date Recorded Sex Assigned at Male 03/11/2025 3:42 PM EDT Legal Sex Male 10:32 PM EDT Gender Identity Male 03/11/2025 3:42 PM EDT Sexual Orientation Heterosexual or Straight 02/16 3:42 PM EDT Last Filed Vital Signs Vital [...] Care Team (Late st Contact Info) Description 04/16/2025 2:00 PM EDT Office Visit [facility] [address] [place] [address] Jeanette Silva, SKIDDER RUNNER [address] [place] [address] Health Maintenance Due Date Last Done Comments [...] PCV20, or PCV21) 07/05/2018 05/10/2018 COVID-19 Vaccine (1 - season) 2024 Fall Risk Screening 11/04/2024 Influenza Vaccine (#1) 2025 4, 04/30/2024, 05/16/2020, Additional history exists HIB Vaccines Aged Out No longer eligi [...] patient[place] [address] [facility] Care Teams Embossing Machine Operator Helper Relationship Specialty Start Date End Date Zayra Peterson FNP-C [address] [place] [address] PCP - General Nurse Practitioner 01/24/25
--- NOTE | 2025-03-15 12:58 | CA_ITS ---
Patient Name: RICARDO HYLTON MR#: [id number] : 1960 Exam Date: 03/15/2025 Ordering Doctor: DR DEANDRE LOYOLA M.D. ECHOCARDIOGRAM REPORT PROCEDURE: CA ECHO DOPPLER COMPLETE INDICATIONS: SVT, PIKE COMPARISON: None. DESCRIPTION: COMPLETE ECHOCARDIOGRAM Real-time transthoracic echocardiography with 2D, M-mode, spectral and color flow Doppler performed. QUALITY: Technical quality was difficult. LEFT VENTRICLE: Normal chamber size. Borderline left ventricular hypertrophy. Global left ventricular systolic function is normal without wall motion abnormalities. Calculated left ventricular ejection fraction is 58%. LV EF: DIASTOLIC: Grade I diastolic dysfunction. ATRIAL SEPTUM: Visually appears intact LEFT ATRIUM: Normal chamber size. RIGHT ATRIUM: Normal chamber size. RIGHT VENTRICLE: Normal chamber size. Normal right ventricular systolic function. TRICUSPID VALVE: Normal mobility and thickness. No stenosis with trivial regurgitation. No evidence of pulmonary hypertension.RVSP 14mmHg. MITRAL VALVE: Normal mobility and thickness. No evidence of mitral valve stenosis. There is no mitral annular calcification. Trivial mitral regurgitation. AORTIC VALVE: Not well-visualized. Normal leaflet mobility on parasternal long axis view. No evidence of aortic valve stenosis. No aortic regurgitation. AORTIC ROOT: Normal diameter and appearance. Measuring 3.7cm. The ascending aorta measures 3.4cm. PULMONIC VALVE: Not well visualized. No regurgitation. PERICARDIUM: No evidence of pericardial effusion. IVC: Collapes with inspirations. Normal size PLEURA: CONCLUSION: Technically difficult study Normal left ventricular systolic function without wall motion abnormalities, ejection fraction 58% Grade 1 left ventricular diastolic dysfunction Normal right ventricular size and systolic function Normal right-sided pressures. RVSP 14 mmHg No significant valvular abnormalities Adult Echocardiography Procedure Report Left Ventricle LVEDD (3.7 - 5.6 cm): 4.65 cm LVESD (2.2 - 4.0 cm): 2.96 cm LVIVS thickness (0.6 - 1.2 cm): 1.16 cm LVPW thickness (0.5 - 1.0 cm): 1.04 cm e': 0.07 m/s E - e': 10.56 LVOT Max Gradient: 4.64 mm[Hg] LVOT Area (cm2): 1.08 m/s Peak Velocity (LVOT): 1.08 m/s Mean Velocity (LVOT): 0.72 m/s LVOT Diameter 2.13 cm Left Ventricular Ejection Fraction: 57.61 % Left Atrium LA Volume Index (2D A2C): 24.76 ml/m2 Left Atrium Systolic Dimension: 2.82 cm Mitral Valve MV E to A Ratio: 0.80 MV Max Gradient: MV Mean Gradient: Mitral Valve A-Wave Peak Velocity: 0.87 m/s Mitral Valve E-Wave Peak Velocity: 0.70 m/s Cardiovascular Orifice Area: Right Ventricle RV Internal Diastolic Dimension: 3.04 cm Aorta AO Root Diam: 3.75 cm Ascending Ao Diam: 3.37 cm Aortic Valve AoV Area ([place]): 2.62 cm2, 2.62 cm2 AoV Area (VTI): 3.04 cm2, 3.04 cm2 Deceleration Freestone: Pressure Half-Time: Peak Velocity(Antegrade Flow): 1.46 m/s Peak Gradient(Antegrade Flow): 8.53 mm[Hg] Mean Velocity(Antegrade Flow): 0.99 m/s Mean Gradient(Antegrade Flow): 4.56 mm[Hg] Velocity Time Integral: 20.95 cm Tricuspid Valve Peak Velocity (Regurgitant Flow): 1.64 m/s, 1.51 m/s Peak Velocity: Pulmonic Valve Mean Gradient: Mean Velocity: Peak Velocity: 1.13 m/s Peak Gradient: 5.91 mm[Hg], 4.31 mm[Hg] Right Atrium Right Atrium Systolic Pressure: 24.56 ml, 24.56 ml Dictated by: Romeo Jacob MD on 03/17/2025 at 15:14 Approved by: Romeo Jacob MD on 03/17/2025 at 15:28
--- OUTSIDE RECORDS SUMMARY | 2025-03-15 13:03 | XMS_ITS | CCD ---
Author Organization [facility] CliniSyid Care Team Providers Care Metal Hanging Helper Name Role Phone ELTAHAWY, EHAB A Admitting Unavailable ELTAHAWY, EHAB A Attending Unavailable BRYON COWART Unavailable ELTAHAWY, EHAB Marek Primary Care Unavailable Bryon Cowart MD Primary Care Provider Tara DO, Vanda P Unavailable Bryon Cowart Unavailable [...] [place] ., DR EVERETTE Richey Admitting Unavailable JOSE SALINAS Consulting UnavailHEBERT Garcia Consulting Unavailable SOLA SHELL Consulting Unavailable , BERTA Consulting Unavailable DR BRYON COWART Primary Care Unavailable SAMSA ., VANDA Attending Unavailable SAMSA ., VANDA Admitting Unavailable DR BRYON COWART Primary Care Unavailable SAMSA ., VANDA Attending Unavailable SAMSA ., VANDA Admitting Unavailable SAMSA ., VANDA Admitting Unavailable SAMSA ., VANDA Consulting Unavailable SAMSA ., VANDA Attending Unavailable SOFYA DR BRYON Richey Primary Care Unavailable COWART, DR BRYON Richey Primary Care Unavailable COWART, DR BRYON Richey Consulting Unavailable SOFYA, DR BRYON Richey Attending Unavailable SOFYA, DR BRYON Richey Admitting Unavailable SOFYA, DR BRYON Richey Primary Care Unavailable SAI, DR JUSTINE Mendoza Consulting Unavailable GIBBS, DR JUSTINE Mendoza Attending Unavailable GIBBS, DR JUSTINE Mendoza Admitting Unavailable GERARD WOLFF Consulting Unavailable SHAIKH Jose BANDA Attending Unavailable SHAIKH BANDA H Admitting Unavailable JOSE SALINAS Consulting Unavaildemetria e SOFYA, DR BRYON Richey Primary Care Unavailable DAVID GIBBS Consulting Unavailable Rubén Pina Unavailable Bryon Cowart MD Primary Care Provider [phone] Vanda Gonzalez DO Unavailable SARAH TRIVEDI Primary Care Physician [phone] Pranay Bai MD Emergency Provider [facility] Provider Clifton Calderon MD Admit Provider Clifton Calderon MD Attending Provider [phone] Eden Greenwood MD Attending Provider Sarah Trivedi Primary Care Unavailable Eden Greenwood Attending Unavailable Clifton Calderon Admitting Unavailable Joo YIP Attending Unavailable Joo YIP Attending Unavailable Joo YIP Attending Unavailable NGOZI TRIVEDI Referring UnavailCALLI Byrne Attending Unavailable SHIKHA, NGOZI Jara Attending Unavailabl e SHIKHA, [...] SHIKHA, NGOZI Jara Attending Unavailabl e SHIKHA, CUPOLA MAN SARAH A Admitting Unavailabl e SHIKHA, CUPOLA MAN SARAH A Attending Unavailabl e SHIKHA, CUPOLA MAN SARAH A Admitting Unavailabl e SHIKHA, CUPOLA MAN SARAH A Admitting Unavailabl e SHIKHA, ASRAH A Attending Unavailable SARAH TRIVEDI Admitting Unavailable Bryon Cowart MD Primary Care Provider VINAY, LESLYE Referring Unavailable BRYON COWART Primary Care Unavailable BRYON COWART Primary Care Unavailable VINAY, LESLYE Referring Unavailable BRYON COWART Primary Care Unavailable VINAY, LESLYE Referring Unavailable VINAY, LESLYE Attending Unavailable BRYON COWART Primary Care Unavailable VINAY, LESLYE Referring Unavailable BRYON COWART Primary Care Unavailable Allergies Allergy Classification Reported Allergen(s) Allergy Type Date of Onset Reaction(s) Facility (20 sources) metFORMIN; Translations: [metformin] Drug Allergy 1 Intolerance, Diarrhea (finding) [facility] (4 sources) metFORMIN Drug Allergy Diarrhea Papriika Other (1 source) metFORMIN Drug Allergy 2 [facility] (1 source) metFORMIN Drug Allergy 5 [facility] Repository Medications Current Medications Medication Drug [...] (20 sources) Opioid Agonist Start: 09-06-2023 End: 10-04-2024 take 1 tablet by mouth every six hours as needed for pain Hydrocodone-Acetaminophen 5-325 mg tablet Discontinued 1 TAB PO Every 6 hours [...] inhalation solution (20 sources) beta2-Adrenergic Agonist Start: 03-11-2025 take 2.5 mg by inhalation every eight hours as needed albuterol (PROVENTIL) 2.5 mg /3 mL (0.083 %) nebulizer solution Use 3 mL via nebulizer three times a day as needed for wheezing/shortness of breath. Inhale over 5-15 minutes 360 mL 4 03/11/2025 Active Start: 10-04-2024 take 1 puff(s) by in halation twice daily Albuterol Sulfate 90 mcg/actuation HFA [...] Unit: g Repeat number: 1 Start: 02-17-2021 End: 03-11-2025 take 20-100 ug by inhalation four times daily COMBIVENT RESPIMAT 20-100 mcg/actuation inhaler INHALE 1 PUFF BY MOUTH 4 TIMES A DAY 02/17/2021 03/11/2025 Discontinued Comment on above: INHALE 1 PUFF BY [...] Prolastin-C 1000 MG as directed Intravenous Active szknu-9-dwziebzcta inhibitor (Human) 1,000 mg in water for injection (11 sources) Start: 03-25-2021 inject 1000 mg intravenously every week dvbku-3-medwkfymow inhibitor (Human) 1,000 mg in water for injection Inject 1,000 mg intravenously one time a week. 03/25/2021 Active Start: 03-25-2021 inject 1000 mg intra venously every week rgjfb-0-yzinxqldzb inhibitor (Human) 1,000 mg in water for injection Inject 1,000 mg intravenously one time a week. 0 03/25/2021 Active Comment on above: Inject 1,000 mg intr avenously one time a week. ARIPiprazole 10 mg oral tablet (20 sources) Atypical Antipsychotic Start: 11-14-19 take 1 tablet by mouth once daily Aripiprazole 10 mg tablet Active 0 .ROUTE .COMPLEX November 14, 2023 2:14pm TAKE 1 TABLET BY MOUTH EVERY DAY Start: 02-27-2021 End: 11-14-2023 take 1 tablet by mouth once daily ARIPiprazole (ABILIFY) 10 mg tablet Take 10 mg by mouth once daily. 02/27/2021 Active Comment on above: Take 10 mg by mouth once daily. aspirin 81 mg delayed release oral tablet (16 sources) Platelet Aggregation Inhibitor, Nonsteroidal Anti-inflammatory Drug Start: 021 take 1 tablet by mouth once daily aspirin, enteric coated (ASPIRIN, ENTERIC COATED) 81 mg EC tablet Take 81 mg by mouth once daily. 02/07/2021 Active Comment on above: Take 81 mg by mouth once daily. azithromycin 250 mg oral tablet (1 source) Macrolide Antimicrobial Start: 025 take 1 tablet by mouth once daily Azithromycin 250 mg tablet Active 250 MG PO Daily 2 October 05, 2024 12:00am start 10/06/24 cephalexin 500 mg oral capsule (1 source) Cephalosporin Antibacterial Start: 025 take 1 capsule by mouth twice daily Cephalexin 500 mg capsule Active 500 MG PO Twice daily 10 October 05, 2024 12:00am cetirizine hydrochloride 10 mg oral tablet (2 sources) Histamine-1 Receptor Antagonist Start: 024 cetirizine 10 mg Tab 10 mg = [...] Take 1 capsule by mouth once daily. 03/25/2021 Active Comment on above: Take 1 capsule by mo ut once daily. doxycycline hyclate 100 mg oral capsule (1 source) Tetracycline-class Drug Start: 11-28-2024 End: 12-19-2024 take 1 capsule by mouth twice daily doxycycline hyclate 100 mg Cap 100 mg = 1 cap(s), Oral, BID, X 21 day(s), # 42 cap(s), Refills(s) 0, Pharmacy: [facility]/pharm[facility] #[id number], 177, cm, 10/25/24 14:03:00 EDT, Height/Length Dosing, 109.4, kg, 10/25/24 14:03:00 EDT, Weight Dosing Start Date: 11/28/24 Stop Date: 12/19/24 Status: Ordered Quantity: 42.0 Unit: cap(s) Repeat number: 1 empagliflozin 25 mg oral tablet (20 sources) Sodium-Glucose Cotransporter 2 Inhibitor Start: 10-25-2024 take 1 tablet by mouth once daily in the morning Jardiance 25 mg oral tablet 25 mg = 1 tab(s), Oral, qAM, # 90 tab(s), Refills(s) 1, Pharmacy: [facility]pharmacy #[id number], 177, cm, 10/25/24 14:03:00 EDT, Height/Length [...] TABLET BY MOUTH DAILY for 30 Active Eoqqfevlwct-Swywcifcr-Gsjgpb er (13 sources) Anticholinergic, Corticosteroid, beta2-Adrenergic Agonist Start: 10-04-2024 Gyqrowftufc-Xhlmuhana-Xukmbb er (Trelegy Ellipta) 100-62.5-25 mcg blister with device Active 1 INH INHALATION Daily at 0630 October 04, 2024 12:00am Start: 02-17-2021 take 1 puff(s) by mo uth once daily TRELEGY ELLIPTA 100-62.5-25 mcg INHALE 1 PUFF BY MOUTH DAILY 02/17/2021 Active Comment on above: INHALE 1 PUFF BY BEVERLY TH DAILY FREESTYLE MARTIN 2 SENSOR kit (11 sources) Start: 02-17-2021 FREESTYLE MARTIN 2 SENSOR kit as directed. 02/17/2021 Active Start: 02-17-2021 FREESTYLE LIBR E 2 SENSOR kit as directed. 0 02/17/2021 Active Comment on above: as directed. furosemide 40 mg oral tablet (5 sources) Loop Diuretic Start: 12-28-2023 take 1 tablet by mouth once daily furosemide 40 mg Tab 40 mg = 1 tab(s), Oral, Daily, Refills(s) 0 Start Date: 12/28/23 Status: Ordered Repeat number: 1 glipiZIDE 10 mg oral tablet (20 sources) Sulfonylurea Start: 09-19-2023 take 1 tablet by mouth twice daily Glipizide 10 mg tablet Active 0 .ROUTE .COMPLEX 180 September 19, 2023 1:16pm TAKE 1 TABLET BY MOUTH TWICE A DAY Start: 02-07-2021 End: 09-19-2023 take 1 tablet by mouth twice daily glipiZIDE (GLUCOTROL) 10 mg tablet Take 10 mg by mouth twice daily. 02/07/2021 Active Comment on above: Take 10 [...] Take 2 tablets by mouth twice daily. 03/25/2021 Active take 1 tablet by beverly [...] ANXIETY, # 270 tab(s), Refills(s) 0, Pharmacy: [id number], 177, cm, 06/04/24 15:02:00 EST, Height/Length Dosing, 108, kg, 06/04/24 15:02:00 EST, Weight Dosing Start Date: 10/08/24 Status: Ordered Quantity: 270.0 Unit: tab(s) Repeat number: 1 Start: 01-24-2024 take 1 tablet by beverly th three times daily as needed for anxiety hydrOXYzine hydrochloride 25 mg Tab 25 mg = 1 tab(s), Oral, TID, PRN for anxiety, # 90 tab(s), Refills(s) 2, Pharmacy: [facility]/pharm[facility] #[id number], 177, cm, 01/24/24 10:21:00 EDT, Height/Length Dosing, 115.7, kg, 12/28/23 13:07:00 EDT, Weight Dosing Start Date: 01/24/24 Status: Ordered ipratropium bromide 0.021 mg/actuat metered dose nasal spray (3 sources) Anticholinergic Start: 03-11-2025 Ipratropium [place] (ATROVENT) 21 mcg (0.03 %) nasal spray Use 2 sprays in the nose every 12 hours. 30 mL 2 03/11/2025 Active Ipratropium-Albut mavis 18-103 mcg/actuation aerosol (2 sources) Start: 10-04-2024 take 1 spray(s) by inhalation four times daily Ipratropium-Albu terol 18-103 mcg/actuation aerosol Active 1 SPRAY INHALATION [...] tablet (20 sources) beta-Adrenergic Shivam Start: 10-25-2023 End: 10-04-2024 take 1 tablet by mouth once daily Metoprolol Succinate 25 mg tablet extended release 24 hr Discontinued 0 .ROUTE .COMPLEX 90 October 25, 2023 2:51pm October 04, 2024 1:41am TAKE 1 TABLET BY MOUTH EVERY DAY Start: 02-07-2021 End: 10-25-2023 take 1 tablet by mouth once daily metoprolol succinate ER (TOPROL XL) 25 mg 24 hr tablet Take 25 mg by mouth once daily. 02/07/2021 Active Comment on above: Take 25 [...] Start: 12-28-2023 take 1 tablet by beverly twice daily as needed for congestion Mucinex DM 30 mg-600 mg Tab-ER See Instructions, Refill(s) 0, 1-2 orally twice a day as needed for chest congestion Start Date: 12/28/23 Status: Ordered Glasgow 3 1000 MG (20 sources) take 1 capsule by mouth once daily Glasgow 3 1000 MG 1 capsule Orally Once a day Active Glasgow-3 Fatty Acids (1 source) Start: 09-14-2023 take 1000 mg by mouth once daily Glasgow-3 Fatty Acids Active 1000 MG PO Daily September 14, 2023 1:00am omeprazole 20 mg delayed release oral capsule (20 sources) Proton Pump Inhibitor Start: 10-17-2023 End: 11-14-2023 take 1 capsule by mouth once daily in the morning Omeprazole 20 mg capsule,delayed release(DR/EC) Active 0 .ROUTE .COMPLEX November 14, 2023 2:14pm TAKE 1 CAPSULE BY MOUTH EVERY DAY IN THE MORNING Start: 02-24-2021 End: 10-17-2023 take 1 capsule by mouth once daily omeprazole (PRILOSEC) 20 mg capsule Take 20 mg by mouth once daily. 02/24/2021 Active Comment on above: Take 20 [...] BEDTIME, # 30 tab(s), Refills(s) 0, Pharmacy: [facility]/pharm[facility] #[id number], 177, cm, 06/04/24 15:02:00 EST, Height/Length [...] bedtime), # 90 tab(s), Refills(s) 1, Pharmacy: [facility] #[id number], 177, cm, 01/24/24 11:56:00 EDT, Height/Length Dosing, 111.6, kg, 01/24/24 11:57:00 EDT, Weight Dosing Start Date: 01/24/24 Status: Ordered Start: 03-25-2021 take 1 tablet by beverly th once daily at bedtime pravastatin (PRAVACHOL) 40 mg tablet Take 1 tablet by mouth daily at bedtime. 03/25/2021 Active take 1 tablet by beverly th every twenty-four hours Pravastatin Sodium 10 MG 1 tablet Orally Once a day for 30 day(s) Not-Taking Comment on above: Take 1 tablet by beverly th daily at bedtime. prednisoLONE (20 sources) Corticosteroid take 1 tablet by mouth once daily Prednisolone 20 mg 20 mg one tab orally daily Active predniSONE 20 mg oral tablet (17 sources) Start: 10-06-19 take 2 tablets by [...] Take 1 tablet by mouth once daily. 03/25/2021 Active Comment on above: Take 1 tablet by beverly th once daily. Prolastin-C (3 sources) Start: 12-28-2023 Prolastin-C Se e Instructions, 1000mg once a week, Refills(s) 0 Start Date: 12/28/23 Status: Ordered Repeat number: 1 Start: 12-28-2023 Prolastin-C Se e Instructions, 1000mg once a week, Refills(s) 0 Start Date: 12/28/23 Status: Ordered 0.25 mg, 0.5 mg dose 1.5 ml semaglutide 1.34 mg/ml pen injector (20 sources) Start: 02-17-2021 OZEMPIC 0.25 mg or 0.5 mg(2 mg/1.5 mL) pnij INJECT 0.5MG SUBCUTANEOUSLY WEEKLY 02/17/2021 Active Comment on above: INJECT 0.5MG SUBCUTANEOUSLY WEEKLY Semaglutide (6 sources) Start: 10-25-2023 inject 0.5 mg by subcutaneous injection every week Semaglutide (Ozempic) 0.25 mg or 0.5 mg (2 mg/3 mL) pen injector Active 0 .ROUTE .COMPLEX October 25, 2023 2:51pm INJECT 0.5 MG [...] NACL 0.9% 25 mL FLUSH (I RB [id number]) Inject 10 mL intravenously. 0 02/13/2021 05/15/2022 Active Comment on above: Inject 10 mL intrave nously. theophylline 450 mg extended release oral tablet (20 sources) Methylxanthine Start: 07-16-20 take 1 tablet by mouth every twelve hours theophylline 450 mg ER Tab See Instructions, TAKE 1 TABLET BY MOUTH EVERY 12 HOURS, # 180 tab(s), Refills(s) 1, Pharmacy: [facility]pharm[facility] #[id number], 177, cm, 10/25/24 14:03:00 EDT, Height/Length Dosing, 109.4, kg, 10/25/24 14:03:00 EDT, Weight Dosing Start Date: 11/05/24 Status: Ordered Quantity: 180.0 Unit: tab(s) Repeat number: 2 Start: 01-24-2024 take 1 tablet by beverly th every twelve hours theophylline 450 mg ER Tab 450 mg = 1 tab(s), Oral, q12hr, # 180 tab(s), Refills(s) 0, Pharmacy: [facility]pharm[facility] #[id number], 177, cm, 01/24/24 10:21:00 EDT, Height/Length [...] Take 400 mg by mouth twice daily. 12/25/2020 Active take 1 tablet by beverly [...] Refills(s) 0 Start Date: 12/28/23 Status: Ordered valACYclovir 1000 mg oral tablet (11 sources) Herpesvirus Nucleoside Analog DNA Polymerase Inhibitor, Herpes Simplex Virus Nucleoside Analog DNA Polymerase Inhibitor, Herpes Zoster Virus Nucleoside Analog DNA Polymerase Inhibitor Start: 12-28-2020 take 2000 mg by mouth twice daily valACYclovir (VALTREX) 1 gram Take 2,000 mg by mouth twice daily. 12/28/2020 Active Comment on above: Take 2,000 mg by beverly th twice daily. 24 hr venlafaxine 150 mg extended release oral capsule (20 sources) Serotonin and Norepinephrine Reuptake Inhibitor Start: 2024 take 1 capsule by mouth twice daily venlafaxine 150 mg Cap-ER See Instructions, TAKE 1 CAPSULE BY MOUTH TWICE A DAY, # 180 cap(s), Refills(s) 0, Pharmacy: [id number], 177, cm, 10/25/24 14:03:00 EDT, Height/Length Dosing, 109.4, kg, 10/25/24 14:03:00 EDT, Weight Dosing Start Date: 11/05/24 Status: Ordered Quantity: 180.0 Unit: cap(s) Repeat number: 1 Start: 09-14-2023 End: 10-04-2024 take 1 capsule by mouth twice daily venlafaxine 150 mg Cap-ER 150 mg = 1 cap(s), Oral, BID, # 180 cap(s), Refills(s) 0, Pharmacy: [facility] #[id number], 177, cm, 06/04/24 15:02:00 EST, Height/Length Dosing, 108, kg, 06/04/24 15:02:00 EST, Weight Dosing Start Date: 08/07/24 Status: Ordered Quantity: 180.0 Unit: cap(s) Repeat number: 1 Start: 03-03-2021 take 1 tablet by beverly th twice daily VENLAFAXINE ER 150 MG TABLET,EXTENDED RELEASE 24 HR Take 150 mg by mouth twice daily. 03/03/2021 Active take 1 capsule by mo ut every twelve hours Effexor XR 150 MG 1 capsule with food Orally bid for 90 days Active take 1 capsule by mo uth every twenty-four hours Effexor XR 150 MG 1 capsule with food Orally Once a day for 30 days Active take 1 capsule by mo uth every twelve hours Effexor XR 75 MG 1 capsule with food Orally Twice a day for 30 days Active Comment on above: Take 150 mg by mouth twice daily. Completed/Discontinued Medications Medication Drug Class(es) Dates Sig (Normalized) Sig (Original) ALPRAZolam 0.5 mg oral tablet (20 sources) [...] a day for 30 day(s) Dec, Not-Taking Glucose (2 sources) Start: 10-25-2024 Glucose Kit Glucose Kit, See Instructions, 1 EA, 0, Glucose meter. Include autolet, matching test strips, lancets, & alcohol wipes, #100 or as allowed by insurance; DX: E11.9, [facility] #[id number], Supply, 177, cm, 10/25/24 14:03:00 EDT, [...] 15, 2023 1:00am October 04, 2024 1:48am Glasgow-3 Fatty Acids 1,000 mg capsule (2 sources) Start: 09-14-2023 End: 10-04-2024 take 1 capsule by mouth once daily Glasgow-3 Fatty Acids 1,000 mg capsule Discontinued 1000 MG PO Daily September 14, 2023 1:00am October 04, 2024 1:48am tiotropium 0.018 mg inhalation powder (12 sources) Anticholinergic Start: 12-18-2013 take 1 capsule by inhalation once daily Spiriva HandiHaler 18 MCG 1 capsule Inhalation Once a day Dec, Not-Taking ubidecarenone 100 mg oral capsule (12 sources) take 1 capsule by mouth every twenty-four hours Coenzyme Q10 100 MG 1 capsule with a meal Orally Once a day for 30 day(s) Not-Taking Problems Active Problems Problem Classification Problem Date [...] Onset: 10-05-2022 Chronic Diabetes mellitus without complication (20 sources) Diabetes mellitus; Translations: [Type 2 diabetes mellitus without complications] Onset: 03-25-2021 03-25-2021 Chronic Comment on above: Noted in 12/28/2023 o ffice note, added per outpatient CDI policy. Linked per outpatien t CDI policy for greater specification. Disorders of lipid metabolism (3 sources) Pure hypercholesterolemia, unspecified; Translations: [Hyperlipidemia] Onset: 10-05-2022 01-25-2024 Chronic Comment on above: Noted in 01/24/2024 of dinora blue, added per ouptatient CDI policy Esophageal disorders (14 sources) Gastroesophageal reflux disease; Translations: [Gastro-esophageal reflux disease without esophagitis] Onset: 03-25-2021 03-25-2021 Chronic Essential hypertension (20 sources) Essential hypertension; Translations: [Essential (primary) hypertension] Onset: 02-14-2019 03-25-2021 Chronic Hyperplasia of prostate (2 sources) Benign prostatic hypertrophy with outflow obstruction; Translations: [Benign prostatic hyperplasia with lower urinary tract symptoms] Onset: 11-28-2024 Chronic Inflammatory conditions of male genital organs (1 source) Chronic prostatitis; Translations: [Chronic prostatitis] Onset: 11-28-2024 Chronic Mood disorders (20 sources) Depressive disorder; Translations: [Depression] Onset: 03-25-2021 03-25-2021 Chronic Other aftercare (1 source) Other termite treater (current) drug therapy; Translations: [OTH GROUP HOME CURRENT DRUG THERAPY] Onset: 10-05-2022 Episodic Other aftercare (1 source) USP (current) use of aspirin; Translations: [GROUP HOME CURRENT USE OF ASPIRIN] Onset: 10-05-2022 Episodic Other aftercare (1 source) terminal computer operator (current) use of oral hypoglycemic drugs; Translations: [GROUP HOME USE ORAL HYPOGLYCEMIC DX] Onset: 08-19-2022 Episodic Other aftercare (4 sources) Encounter for therapeutic drug level monitoring; Translations: [ENC THERAPEUTC DRUG LEVL MONITORING] Onset: 08-10-2022 Episodic Other aftercare (2 sources) terminal computer operator (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; Translations: [USP (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] Onset: 01-24-2025 Episodic Other lower respiratory disease (4 sources) Shortness of breath; Translations: [SHORTNESS OF BREATH] Onset: 09-01-2022 Episodic Other lower respiratory disease (4 sources) Hypoxemia; Translations: [HYPOXEMIA] Onset: 08-17-2022 Episodic Other non-traumatic joint disorders (2 sources) Pain in left knee; Translations: [Chronic pain of left knee] 11-14-2023 Episodic Other nutritional; endocrine; and metabolic disorders (16 sources) Vxmmg-0-stwuqlcfiba deficiency; Translations: [Uxgnw-0-zozotclhjqa deficiency] Onset: 02-16-2021 03-25-2021 Chronic Other nutritional; [...] Chronic Other nutritional; endocrine; and metabolic disorders (5 sources) Aygth-2-mhiwuoxxhgu deficiency; Translations: [Ehxtz-9-aspygnvicrv deficiency] Onset: 03-25-2021 10-05-2024 Chronic Other nutritional; endocrine; and metabolic [...] of skin and subcutaneous tissue] 09-15-2023 Episodic Other upper respiratory disease (1 source) Chronic rhinitis; Translations: [Chronic rhinitis] Onset: 03-11-2025 Chronic Lily-; endo-; and myocarditis; cardiomyopathy (except that [...] per OP CDI policy. Residual codes; unclassified (4 sources) Obstructive sleep apnea (adult) (pediatric); Translations: [Obstructive sleep apnea (adult)(pediatric)] Onset: 09-01-2022 10-05-2024 Chronic Residual codes; unclassified (1 source) Patient's intentional underdosing of medication regimen due to financial hardship; Translations: [PT INTENT UNDRDOS MED FINANC HRDSHP] Onset: 07-20-2022 Episodic Respiratory failure; insufficiency; arrest (adult) (18 sources) Chronic hypoxemic respiratory failure; Translations: [Chronic respiratory failure with hypoxia] Onset: 02-16-2021 03-25-2021 Chronic Screening and history of mental health and substance abuse codes (4 sources) Personal history of nicotine dependence; Translations: [...] COVID-19] Onset: 05-04-2022 Unclassified (1 source) A [facility] screening has identified you as FRAIL or [...] Four Ways to Beat the Frailty Risk [email or web address]-uii-wvgawmwnhp/sta w-zdvhpf-thas-ways-to- qopz-jwl-vaz ilty-risk 10-05-2024 Unclassified (2 sources) Long-term current [...] Name Value Interpretation Reference Range Facility [facility] 03-12-2025 CNPN Telephone (PULMAV) RICARDO HYLTON ([id number]) 1960 M Date Time Provider Department 03/12/25 LESLYE MCLEAN PULMAV During your visit today, we recorded the following information about you: Francisco Sosa LPN 03/12/2025 9:52 AM Signed Leslye Mclean MD [facility] Pulm Nurse PLS GET pap REPORT FROM [facility] Thanks Called and spoke with [facility], was informed pt needs to call to establish that Dr. Mclean is provider and they can send us information on the patient. Called and lvm x1 for pt. Sent MCM x1 Allergies As of Date: 03/12/2025 Noted Allergy Reaction METFORMIN 03/25/2021 5 - Intolerance Comments: diarrhea Date Reviewed: 03/11/2025 Reviewed by: Leslye Mclean MD - Fully Assessed Prescriptions as of 03/12/2025 - albuterol (PROVENTIL) 2.5 mg /3 mL (0.083 %) nebulizer solution Use 3 mL via nebulizer three times a day as needed for wheezing/shortness of breath. Inhale over 5-15 minutes - Ipratropium [place] (ATROVENT) 21 mcg (0.03 %) nasal spray Use 2 sprays in the nose every 12 hours. - snxoe-3-krqkwvugsz inhibitor (Human) 1,000 mg in water for [...] MOUTH FOUR TIMES A DAY NEEDED - metoprolol succinate ER (TOPROL XL) 25 [...] twice daily. 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] 02/16/2021 Chronic obstructive pulmonary disease (HCC) [J4*01/17/2019 Essential hypertension [I10] 02/14/2019 RANCHO (obstructive sleep apnea) [G47.33] 03/25/2021 Depression [F32.A] 03/25/2021 GERD (gastroesophageal reflux disease) [K21.9] 03/25/2021 Diabetes (HCC) [E11.9] 03/25/2021 Bipolar 1 disorder (HCC) [F31.9] 03/25/2021 Encounter Status:Closed by FRANCISCO SOSA on 03/12/25 Normal [facility] A1AT SerPl-mCncon 03-11-2025 Alpha 1 antitrypsin [Mass/Vol] 112 mg/dL Normal 90-200 [facility] Comment on above: Order Comment: Speci men Type: BLOOD SPECIMEN Ordering Facility: [facility] Address: [address] [place] [address] Performed By: #### 1 [id number] #### [facility] CLIA [id number] [address] [place] [address] [place] [address] [place] CBC W Auto Differential pane l (Bld)on 03-11-2025 Basophils (Bld) [#/Vol] 0.06 10*3/uL Normal <0.11 [facility] Comment on above: Order Comment: Speci men Type: BLOOD SPECIMEN Ordering Facility: [facility] Address: [address] [place] [address] Performed By: #### [id number] #### [facility] LABORATORY CLIA [id number] [address] [facility] [place] [address] [place] Basophils/100 WBC (Bld) 0.4 % Normal [facility] Comment on above: Order Comment: Speci men Type: BLOOD SPECIMEN Ordering Facility: [facility] Address: [address] [place] [address] Performed By: #### 5 7021-8 #### [facility] CLIA [id number] [address] [place] [id number] [place] Differential cell count method Nom (Bld) Auto Normal [facility] Comment on above: Order Comment: Speci men Type: BLOOD SPECIMEN Ordering Facility: [facility] Address: [address] [place] [address] Performed By: #### 5 7021-8 #### [facility] CLIA [id number] [address] [place] [address] [place] Eosinophils (Bld) [#/Vol] 10*3/uL Normal <0.46 [facility] Comment on above: Order Comment: Speci men Type: BLOOD SPECIMEN Ordering Facility: [facility] Address: [address] [place] [address] Performed By: #### 5 7021-8 #### [facility] CLIA [id number] [address] [facility] [place] [address] [place] Eosinophils/100 WBC (Bld) 0.1 % Normal [facility] Comment on above: Order Comment: Speci men Type: BLOOD SPECIMEN Ordering Facility: [facility] Address: [address] [place] [address] Performed By: #### 5 7021-8 #### [facility] CLIA [id number] [address] [facility] [place] [address] [place] Erythrocyte distribution width (RBC) [Ratio] 17.0 % High 11.5-15.0 [facility] Comment on above: Order Comment: Speci men Type: BLOOD SPECIMEN Ordering Facility: [facility] Address: [address] [place] [address] Performed By: #### 5 7021-8 #### [facility] CLIA [id number] [address] [place] [address] [facility] [place] Hematocrit (Bld) [Volume fraction] 52.5 % High 39.0-51.0 [facility] Comment on above: Order Comment: Speci men Type: BLOOD SPECIMEN Ordering Facility: [facility] Address: [address] [place] [address] Performed By: #### 5 7021-8 #### [facility] CLIA [id number] [address] [place] [address] [place] Hemoglobin (Bld) [Mass/Vol] 16.6 g/dL Normal 13.0-17.0 [facility] Comment on above: Order Comment: Speci men Type: BLOOD SPECIMEN Ordering Facility: [facility] Address: [address] [place] [address] Performed By: #### 5 7021-8 #### [facility] IA [id number] [address] [place] [address] [place] Immature granulocytes (Bld) [#/Vol] 0.06 10*3/uL Normal <0.10 [facility] Comment on above: Order Comment: Speci men Type: BLOOD SPECIMEN Ordering Facility: [facility] Address: [address] [place] [address] Performed By: #### 5 7021-8 #### [facility] CLIA [id number] [address] [place], [place] [address] [place] [address] [place] Immature granulocytes/100 WBC (Bld) 0.4 % Normal [facility] Comment on above: Order Comment: Speci men Type: BLOOD SPECIMEN Ordering Facility: [facility] Address: [address] [place] [address] Performed By: #### 5 7021-8 #### [facility] CLIA [id number] [address] [facility] [address] [place] Lymphocytes (Bld) [#/Vol] 1.01 10*3/uL Normal 1.00-4.00 [facility] Comment on above: Order Comment: Speci men Type: BLOOD SPECIMEN Ordering Facility: [facility] Address: [address] [place] [address] Performed By: #### 5 7021-8 #### [facility] CLIA [id number] [address] [place] Lymphocytes/100 WBC (Bld) 7.5 % Normal [facility] Comment on above: Order Comment: Speci men Type: BLOOD SPECIMEN Ordering Facility: [facility] Address: [address] [place] [address] Performed By: #### 5 7021-8 #### [facility] IA [id number] [address] [place] MCH (RBC) [Entitic mass] 26.0 pg Normal 26.0-34.0 [facility] Comment on above: Order Comment: Speci men Type: BLOOD SPECIMEN Ordering Facility: [facility] Address: [address] [place] [address] Performed By: #### 5 7021-8 #### [facility] IA [id number] [address] [place] MCHC (RBC) [Mass/Vol] 31.6 g/dL Normal 30.5-36.0 [facility] Comment on above: Order Comment: Speci men Type: BLOOD SPECIMEN Ordering Facility: [facility] Address: [address] [place] [address] Performed By: #### 5 7021-8 #### [facility] CLIA [id number] [address] [place] MCV (RBC) [Entitic vol] 82.2 fL Normal 80.0-100.0 [facility] Comment on above: Order Comment: Speci men Type: BLOOD SPECIMEN Ordering Facility: [facility] Address: [address] [place] [address] Performed By: #### 5 7021-8 #### [facility] IA [id number] [address] [facility] [place] [address] [place] Monocytes (Bld) [#/Vol] 0.53 10*3/uL Normal <0.87 [facility] Comment on above: Order Comment: Speci men Type: BLOOD SPECIMEN Ordering Facility: [facility] Address: [address] [place] [address] Performed By: #### 5 7021-8 #### [facility] IA [id number] [address] [place] [address] [place] Monocytes/100 WBC (Bld) 3.9 % Normal [facility] Comment on above: Order Comment: Speci men Type: BLOOD SPECIMEN Ordering Facility: [facility] Address: [address] [place] [address] Performed By: #### 5 7021-8 #### [facility] IA [id number] [address] [place] [address] [place] Neutrophils (Bld) [#/Vol] 11.88 10*3/uL High 1.45-7.50 [facility] Comment on above: Order Comment: Speci men Type: BLOOD SPECIMEN Ordering Facility: [facility] Address: [address] [place] [address] Performed By: #### 5 7021-8 #### [facility] IA [id number] [address] [facility] [place] [address] [place] Neutrophils/100 WBC (Bld) 87.7 % Normal [facility] Comment on above: Order Comment: Speci men Type: BLOOD SPECIMEN Ordering Facility: [facility] Address: [address] [place] [address] Performed By: #### 5 7021-8 #### [facility] IA [id number] [address] [place] [address] [place] Nucleated RBC (Bld) [#/Vol] 0.02 10*3/uL High <0.01 [facility] Comment on above: Order Comment: Speci men Type: BLOOD SPECIMEN Ordering Facility: [facility] Address: [address] [place] [address] Performed By: #### 5 7021-8 #### [facility] IA [id number] [address] [place] [address] [place] Nucleated RBC/100 WBC (Bld) [Ratio] 0.1 /100 WBC Normal [facility] Comment on above: Order Comment: Speci men Type: BLOOD SPECIMEN Ordering Facility: [facility] Address: [address] [place] [address] Performed By: #### 5 7021-8 #### [facility] IA [id number] [address] [place] [address] [place] Platelet mean volume (Bld) [Entitic vol] 9.2 fL Normal 9.0-12.7 [facility] Comment on above: Order Comment: Speci men Type: BLOOD SPECIMEN Ordering Facility: [facility] Address: [address] [place] [address] Performed By: #### 5 7021-8 #### [facility] IA [id number] [address] [place] [address] [place] Platelets (Bld) [#/Vol] 359 10*3/uL Normal 150-400 [facility] Comment on above: Order Comment: Speci men Type: BLOOD SPECIMEN Ordering Facility: [facility] Address: [address] [place] [address] Performed By: #### 5 7021-8 #### [facility] IA [id number] [address] [place] [address] [place] RBC (Bld) [#/Vol] 6.39 10*6/uL High 4.20-6.00 [facility] Comment on above: Order Comment: Speci men Type: BLOOD SPECIMEN Ordering Facility: [facility] Address: [address] [place] [address] Performed By: #### 5 7021-8 #### [facility] IA [id number] [address] [place] [address] [place] WBC (Bld) [#/Vol] 13.55 10*3/uL High 3.70-11.00 [facility] Comment on above: Order Comment: Speci men Type: BLOOD SPECIMEN Ordering Facility: [facility] Address: [address] [place] [address] Performed By: #### 5 7021-8 #### [facility] CLIA [id number] [address] [place] [address] [facility] Comprehensive metabolic 2000 panelon 03-11-2025 Albumin [Mass/Vol] 4.7 g/dL Normal 3.9-4.9 [facility] Comment on above: Order Comment: Speci men Type: BLOOD SPECIMEN Ordering Facility: [facility] Address: [address] [place] [address] Performed By: #### 2 4323-8 #### [facility] CLIA [id number] [address] [place] [address] [place] ALP [Catalytic activity/Vol] 115 U/L High 38-113 [facility] Comment on above: Order Comment: Speci men Type: BLOOD SPECIMEN Ordering Facility: [facility] Address: [address] [place] [address] Performed By: #### 2 4323-8 #### [facility] CLIA [id number] [address] [place] [address] [place] ALT [Catalytic activity/Vol] 12 U/L Normal 10-54 [facility] Comment on above: Order Comment: Speci men Type: BLOOD SPECIMEN Ordering Facility: [facility] Address: [address] [place] [address] Performed By: #### 2 4323-8 #### [facility] CLIA [id number] [address] [place] [address] [place] Anion gap [Moles/Vol] 18 mmol/L High 8-15 [facility] Comment on above: Order Comment: Speci men Type: BLOOD SPECIMEN Ordering Facility: [facility] Address: [address] [place] [address] Performed By: #### 2 4323-8 #### [facility] CLIA [id number] [address] [place] [address] [place] AST [Catalytic activity/Vol] 10 U/L Low 14-40 [facility] Comment on above: Order Comment: Speci men Type: BLOOD SPECIMEN Ordering Facility: [facility] Address: [address] [place] [address] Performed By: #### 2 4323-8 #### [facility] IA [id number] [address] [place] [address] [place] Bilirubin [Mass/Vol] 0.4 mg/dL Normal 0.2-1.3 [facility] Comment on above: Order Comment: Speci men Type: BLOOD SPECIMEN Ordering Facility: [facility] Address: [address] [place] [address] Performed By: #### 2 4323-8 #### [facility] IA [id number] [address] [place] [address] [place] Calcium [Mass/Vol] 9.9 mg/dL Normal 8.5-10.2 [facility] Comment on above: Order Comment: Speci men Type: BLOOD SPECIMEN Ordering Facility: [facility] Address: [address] [place] [address] Performed By: #### 2 4323-8 #### [facility] IA [id number] [address] [place] [address] [place] Chloride [Moles/Vol] 100 mmol/L Normal 98-107 [facility] Comment on above: Order Comment: Speci men Type: BLOOD SPECIMEN Ordering Facility: [facility] Address: [address] [place] [address] Performed By: #### 2 4323-8 #### [facility] IA [id number] [address] [place] [address] [place] CO2 [Moles/Vol] 22 mmol/L Normal 22-30 [facility] Comment on above: Order Comment: Speci men Type: BLOOD SPECIMEN Ordering Facility: [facility] Address: [address] [place] [address] Performed By: #### 2 4323-8 #### [facility] CLIA [id number] [address] [place] [address] [place] Creatinine [Mass/Vol] 0.85 mg/dL Normal 0.73-1.22 [facility] Comment on above: Order Comment: Kike larry Type: BLOOD SPECIMEN Ordering Facility: [facility] Address: [address] [place] [address] Performed By: #### 2 4323-8 #### [facility] CLIA [id number] [address] [place] [address] [place] eGFRcr SerPlBld CKD-EPI 2020 96 mL/min/1.73m??? Normal >=60 [facility] Comment on above: Order Comment: Kike larry Type: BLOOD SPECIMEN Ordering Facility: [facility] Address: [address] [place] [address] Result Comment: Alicia mated Glomerular Filtration Rate (eGFR) is calculated using the 2020 CKD-EPI creatinine equation. This equation utilizes serum creatinine, sex, and age as parameters. The creatinine assay has traceable calibration to isotope dilution-mass spectrometry. Refer to KDIGO guidelines for clinical interpretation. In patients with unstable renal function, e.g. those with acute kidney injury, the eGFR may not accurately reflect actual GFR. Performed By: #### 2 4323-8 #### [facility] CLIA [id number] [address] [place] [address] [place] Glucose [Mass/Vol] 156 mg/dL High 74-99 [facility] Comment on above: Order Comment: Kike larry Type: BLOOD SPECIMEN Ordering Facility: [facility] Address: [address] [place] [address] Result Comment: The [place] [employer] (ADA) provides guidance for cutoff [...] Standards of Medical Care in Diabetes 2016, [place] [employer]. Diabetes Care. 2016.39(Suppl 1). Performed By: #### 2 4323-8 #### [facility] IA [id number] [address] [place] [address] [place] Potassium [Moles/Vol] 4.0 mmol/L Normal 3.7-5.1 [facility] Comment on above: Order Comment: Speci men Type: BLOOD SPECIMEN Ordering Facility: [facility] Address: [address] [place] [address] Performed By: #### 2 4323-8 #### [facility] IA [id number] [address] [place] [address] [place] Protein [Mass/Vol] 7.6 g/dL Normal 6.3-8.0 [facility] Comment on above: Order Comment: Speci men Type: BLOOD SPECIMEN Ordering Facility: [facility] Address: [address] [place] [address] Performed By: #### 2 4323-8 #### [facility] IA [id number] [address] [place] [address] [place] Sodium [Moles/Vol] 140 mmol/L Normal 136-144 [facility] Comment on above: Order Comment: Speci men Type: BLOOD SPECIMEN Ordering Facility: [facility] Address: [address] [place] [address] Performed By: #### 2 4323-8 #### [facility] IA [id number] [address] [place] [address] [place] Urea nitrogen [Mass/Vol] 21 mg/dL Normal 9-24 [facility] Comment on above: Order Comment: Speci men Type: BLOOD SPECIMEN Ordering Facility: [facility] Address: [address] [place] [address] Performed By: #### 2 4323-8 #### [facility] IA [id number] [address] [place], [place] [address] [address] [place] LUNG DIFFUSION CAPACITY (TOMA O)on 03-11-2025 LUNG DIFFUSION CAPACITY (DLCO) [facility] [address] [facility] 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 //RK FVC_PRE (L) : 3.71 L FVC_POST (L) : 3.63 L FVC_PRED (L) : 4.01 L FVC_LLN (L) : 3.00 L FVC_ULN (L) : 5.04 L FEV1_PRE (L) : 1.18 L FEV1_POST (L) : 1.28 L FEV1_PRED (L) : 3.09 L FEV1_LLN (L) : 2.27 L FEV1_ULN (L) : 3.85 L FEV1/FVC_PRE (%) : 32 % FEV1/FVC_POST (%) : 35 % FEV1/FVC_PRED (%) : 78 % FEV1/FVC_LLN (%) : 65 % MPX50_KKR (L/S) : 0.81 L/S UUM47_JDQO (L/S) : 0.98 L/S PBT86_GZP (L/S) : 0.15 L/S FSL96_AMUC (L/S) : 0.16 L/S WMQ58_GHWD (L/S) : 0.75 L/S ZAL60_RAF (L/S) : 0.29 L/S CDR32_NMT (L/S) : 1.83 L/S WLG69-80%_PRE (L/S) : 0.30 L/S UCQ46-81%_POST (L/S) : 0.32 L/S RVM08-66%_PRED (L/S) : 2.61 L/S ONE35-38%_LLN (L/S) : 1.21 L/S PEF_PRE (L/S) : 3.50 L/S PEF_POST (L/S) : 3.72 L/S PEFMAX_LLN (L/S) : 6.30 L/S PEFMAX_ULN (L/S) : 10.79 L/S SVC_PRED (L) : 4.01 L/S SVC_LLN (L) : 3.00 L/S SVC_ULN (L/S) : 5.04 L/S IC_PRED (L) : 2.67 L/S ERV_PREDICTED (L) : 1.34 L/S DLCO (ML/MIN/MMHG) : 17.58 ml/min/mmHg DLCO_PRED (ML/MIN/MMHG) : 25.83 ml/min/mmHg DLCO_LLN(ML/MIN/MMHG ) : 19.17 ml/min/mmHg DLCO_ULN (ML/MIN/MMHG) : 33.72 ml/min/mmHg FET_PRE (S) : 17.14 S FET_POST (S) : 16.29 S VA (L) : 5.02 L VA_PRD (L) : 6.24 L DLCO/VA (ML/MIN/MMHG/L) : 0.04 ml/min/mmHg/L DLCO_VA_PRED (L) : 0.04 ml/min/mmHg/L DLCOCOR (ML/MIN/MMHG) : 17.37 ml/min/mmHg DLCOCOR_PRED (ML/MIN/MMHG) : 25.83 ml/min/mmHg DLCO/VACOR (ML/MIN/MMHG/L) : 0.03 ml/min/mmHg/L Normal [facility] LUNG VOLUMESon 03-11-2025 LUNG VOLUMES [facility] [address] [facility] 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 Patient has dyspnea, COPD and was tachypneic. 2 techs attempted. Best test reported despite difficult testing session. //JH IMPRESSION: Lung volumes (FRC and/or RV) are elevated indicating hyperinflation and air trapping. Electronically Signed On 03-12-2025 13:37:37 EDT by Tory Mukherjee MD ID: [id number] Name: RICARDO HYLTON Race: White Ht: 68.90 in Wt: 240.30 lbs Age: 64 Gender: Male : 1960 Dx: Chronic obstructive pulmonary disease, unspecified Smoking Hx: Non-smoker Doctor: LESLYE MCLEAN Test Date: 03/11/2025 Site: AV Tech: Gabbie [...] test reported despite difficult testing session. // VC BOX (L) : 3.76 L SVC_PRED (L) : 4.01 L/S SVC_LLN (L) : 3.00 L/S SVC_ULN (L/S) : 5.04 L/S IC BOX (L) : 2.01 L IC_PRED (L) : 2.67 L/S ERV BOX (L) : 1.59 L ERV_PREDICTED (L) : 1.34 L/S FRC BOX (L) : 5.23 L RV BOX (L) : 3.53 L RV_PLETH_PRED (L) : 2.30 L TLC BOX (L) : 7.27 L TLC_PLETH_PRED (L) : 6.92 L RV/TLC BOX (%) : 49 % RV_TLC_PLETH_PRED (%) : 33 % Normal [facility] SPIROMETRY WITH DILATOR IF O BSTRUCTEDon 03-11-2025 SPIROMETRY WITH DILATOR IF OBSTRUCTED [facility] [address] 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 //RK Normal [facility] Theophylline SerPl-mCncon Theophylline [Mass/Vol] 30.0 ug/mL High 10.0-20.0 [facility] Comment on above: Order Comment: Kike larry Type: BLOOD SPECIMEN Ordering Facility: [facility] Address: [address] [place] [address] Result Comment: Refe rence ranges and high/low indicator flags are provided as general guidelines only. The treating physician must determine appropriate target levels/dosing based on the specific clinical situation. Performed By: #### 4 049-3 #### [facility] CLIA [id number] [address] [place] [address] [place] BMPon 02-20-2025 Anion gap [Moles/Vol] 14 mmol/L Normal 6-16 [facility] Comment on above: Performed By: #### 2 [id number] #### [facility] [address] [place] [address] BUN/Creat Ratio 20 No Units Normal 10-20 [facility] Comment on above: Performed By: #### 2 583723 #### [facility] [address] [place] [address] Calcium [Mass/Vol] 10.2 mg/dL Normal 8.9-11.1 [facility] Comment on above: Performed By: #### 2 568453 #### [facility] [address] [place] [address] Chloride [Moles/Vol] 104 mmol/L Normal 101-111 [facility] Comment on above: Performed By: #### 2 [id number] #### [facility] [address] [place] [address] CO2 [Moles/Vol] 24 mmol/L Normal 21-[address] [facility] Comment on above: Performed By: #### 2 680537 #### [facility] [address] [place] [address] Creatinine [Mass/Vol] 1.0 mg/dL Normal 0.5-1.3 [facility] Comment on above: Performed By: #### 2 053116 #### [facility] [address] [place] [address] Glucose [Mass/Vol] 151 mg/dL Normal 55-199 [facility] Comment on above: Performed By: #### 2 796288 #### [facility] [address] [place] [address] Potassium [Moles/Vol] 4.4 mmol/L Normal 3.5-5.3 [facility] Comment on above: Performed By: #### 2 846984 #### [facility] [address] [place] [address] Sodium [Moles/Vol] 138 mmol/L Normal 135-145 [facility] Comment on above: Performed By: #### 2 557043 #### [facility] [address] [place] [address] Urea nitrogen [Mass/Vol] 20 mg/dL Normal 5-21 [facility] Comment on above: Performed By: #### 2 496997 #### [facility] [address] [place] [address] PbjM9jzv 02-20-2025 HbA1c (Bld) [Mass fraction] 7.3 % High <=5.9 [facility] Comment on above: Performed By: #### 7 [id number] #### [facility] [address] [place] [address] U MA/Cr Ratioon 02-20-2025 Microalb/Cr Ratio NOT CALCULATED Invalid Interpretation Code .0-30.0 [facility] Comment on above: Result Comment: 30-3 00 mg/g Cr indicates an increased risk for diabetic nephropathy. >300 mg/g Cr is consistent with clinical nephropathy. Performed By: #### 1 [id number] #### [facility] [address] [place] [address] U Creatinine 32.8 mg/dL Invalid Interpretation Code [facility] Comment on above: Performed By: #### 1 [id number] #### [facility] [address] [place] [address] U Microalb <0.7 Normal 0.0-1.9 [facility] Comment on above: Performed By: #### 1 [id number] #### [facility] [address] [place] [address] eGFRon 02-20-2025 eGFR 83 mL/min/1.73 m2 Normal >=59 [facility] Comment on above: Performed By: #### 1 [id number] #### [facility] [address] [place] [address] Ambulatory Visit Summaryon 0 02-19-2025 Ambulatory Visit Summary Ambulatory Visit Summary RICARDO HYLTON :1960 Visit Date:02/19/2025 Ambulatory Visit Instructions Your Diagnosis Type 2 diabetes mellitus with complication Emphysema/COPD Obesity (BMI 30-39.9) Obesity, Class II, BMI 35-39.9, no comorbidity Former smoker Your Care Team Attending Physician - SARAH TRIVEDI CNP Primary Care Physician - SARAH TRIVEDI CNP This Is Your Medications List [facility] Prescription (Glucose Kit) albuterol-ipratropiu m (Combivent Respimat [...] Cardiac catheter. Discharge Vitals Temperature (Temporal Artery) 36.1 ???C Heart Rate (Peripheral) 84 Respiratory Rate 18 Blood Pressure 132/82 Height 177.0 cm Height 70 in Weight 109.7 kg Weight 241.847 lb BMI 35.02 What to do next Scheduled Follow-Up Appointments Tuesday 2:00 PM EDT With: PHI GOSS, Joo Mendoza Where: [facility] [address] [place] [address]- Tuesday 2:30 PM EST With: Where: [address] [address]- Tuesday 3:20 PM EST With: SARAH TRIVEDI CNP Where: [address] [address]- Medications What How Much When Why Instructions Unchanged albuterol-ipratropiu m (Combivent Respimat 20 mcg-100 mcg) 1 Puffs Inhalation 4 times a day Unchanged alpha 1-proteinase inhibitor (Prolastin-C) See instructions 1000mg once a week Unchanged aripiprazole (aripiprazole 10 mg Tab) See instructions TAKE 1 TABLET BY MOUTH EVERY DAY Unchanged aripiprazole (aripiprazole 10 mg Tab) 1 Tablets By Mouth Every day Unchanged aspirin (aspirin 81 mg Oral EC Tab) 1 Tablets By Mouth Every day Unchanged cetirizine (cetirizine 10 mg Tab) 1 Tablets By Mouth Every day as needed for for allergy symptoms Allergic rhinitis, mild Unchanged cyclobenzaprine (cyclobenzaprine 5 mg Tab) 1 Tablets By Mouth 2 times a day Unchanged dextromethorphan-gua ifenesin (Mucinex DM 30 mg-600 mg Tab-ER) See instructions 1-2 orally twice a day as needed for chest congestion Unchanged empagliflozin (Jardiance 25 mg oral tablet) 1 Tablets By Mouth Once a day (in the morning) Unchanged fluticasone/ umeclidinium/ vilanterol (Trelegy Ellipta 100 mcg-62.5 mcg-25 mcg inhalation powder) 1 Puffs Inhalation Every day Unchanged furosemide (furosemide 40 mg Tab) 1 Tablets By Mouth Every day Unchanged glipiZIDE (glipiZIDE 10 mg Tab) See instructions TAKE 1 TABLET BY MOUTH TWICE A DAY Unchanged hydrOXYzine (hydrOXYzine hydrochloride 50 mg oral tablet) See instructions TAKE 1 TABLET BY MOUTH THREE TIMES A DAY NEEDED FOR ANXIETY Unchanged lisinopril (lisinopril 5 mg Tab) 1 Tablets By Mouth Every day Unchanged metoprolol (metoprolol 25 mg ER Tab) 1 Tablets By Mouth Every day Unchanged [facility] Prescription (Glucose Kit) See instructions Type 2 diabetes mellitus with complication Glucose meter. Include autolet, matching test strips, lancets, & alcohol wipes, #100 or as allowed by insurance; DX: E11.9 Unchanged omeprazole (omeprazole 20 mg Cap-DR) See instructions TAKE 1 CAPSULE BY MOUTH EVERY DAY Unchanged pravastatin (pravastatin 80 mg Tab) See instructions TAKE 1 TABLET BY MOUTH EVERYDAY AT BEDTIME Pickup at [facility] #[id number] Unchanged semaglutide (Ozempic 2 mg/ 3 mL (0.25 mg or 0.5 mg dose) subcutaneous solution) See instructions INJECT 0.5 MG SUBCUTANEOUSLY ONE TIME PER WEEK Unchanged theophylline (theophylline 450 mg ER Tab) See instructions TAKE 1 TABLET BY MOUTH EVERY 12 HOURS Unchanged theophylline (theophylline 450 mg ER Tab) See instructions TAKE 1 TABLET BY MOUTH EVERY 12 HOURS Unchanged venlafaxine (venlafaxine 150 mg Cap-ER) See instructions TAKE 1 CAPSULE BY MOUTH TWICE A DAY Pharmacy Information [id number]: [address], [place] [id number] [phone] (more content not included)... Normal [facility] Ambulatory Visit Summary Ambulatory Visit Summary RICARDO HYLTON :1960 Visit Date:02/19/2025 Ambulatory Visit Instructions Your Diagnosis Type 2 diabetes mellitus with complication Emphysema/COPD Obesity (BMI 30-39.9) Obesity, Class II, BMI 35-39.9, no comorbidity Former smoker Your Care Team Attending Physician - SARAH TRIVEDI CNP Primary Care Physician - SARAH TRIVEDI CNP This Is Your Medications List [facility] Prescription (Glucose Kit) albuterol-ipratropiu m (Combivent Respimat [...] Cardiac catheter. Discharge Vitals Temperature (Temporal Artery) 36.1 ???C Heart Rate (Peripheral) 84 Respiratory Rate 18 Blood Pressure 132/82 Height 177.0 cm Height 70 in Weight 109.7 kg Weight 241.847 lb BMI 35.02 What to do next Scheduled Follow-Up Appointments Tuesday 2:00 PM EDT With: PHI GOSS, Joo Mendoza Where: [facility] [place] [address] [place] [address]- Tuesday 2:30 PM EST With: Where: [address] [address]- Tuesday 3:20 PM EST With: SARAH TRIVEDI CNP Where: [address] [address]- Medications What How Much When Why Instructions Unchanged albuterol-ipratropiu m (Combivent Respimat 20 mcg-100 mcg) 1 Puffs Inhalation 4 times a day Unchanged alpha 1-proteinase inhibitor (Prolastin-C) See instructions 1000mg once a week Unchanged aripiprazole (aripiprazole 10 mg Tab) See instructions TAKE 1 TABLET BY MOUTH EVERY DAY Unchanged aripiprazole (aripiprazole 10 mg Tab) 1 Tablets By Mouth Every day Unchanged aspirin (aspirin 81 mg Oral EC Tab) 1 Tablets By Mouth Every day Unchanged cetirizine (cetirizine 10 mg Tab) 1 Tablets By Mouth Every day as needed for for allergy symptoms Allergic rhinitis, mild Unchanged cyclobenzaprine (cyclobenzaprine 5 mg Tab) 1 Tablets By Mouth 2 times a day Unchanged dextromethorphan-gua ifenesin (Mucinex DM 30 mg-600 mg Tab-ER) See instructions 1-2 orally twice a day as needed for chest congestion Unchanged empagliflozin (Jardiance 25 mg oral tablet) 1 Tablets By Mouth Once a day (in the morning) Unchanged fluticasone/ umeclidinium/ vilanterol (Trelegy Ellipta 100 mcg-62.5 mcg-25 mcg inhalation powder) 1 Puffs Inhalation Every day Unchanged furosemide (furosemide 40 mg Tab) 1 Tablets By Mouth Every day Unchanged glipiZIDE (glipiZIDE 10 mg Tab) See instructions TAKE 1 TABLET BY MOUTH TWICE A DAY Unchanged hydrOXYzine (hydrOXYzine hydrochloride 50 mg oral tablet) See instructions TAKE 1 TABLET BY MOUTH THREE TIMES A DAY NEEDED FOR ANXIETY Unchanged lisinopril (lisinopril 5 mg Tab) 1 Tablets By Mouth Every day Unchanged metoprolol (metoprolol 25 mg ER Tab) 1 Tablets By Mouth Every day Unchanged [facility] Prescription (Glucose Kit) See instructions Type 2 diabetes mellitus with complication Glucose meter. Include autolet, matching test strips, lancets, & alcohol wipes, #100 or as allowed by insurance; DX: E11.9 Unchanged omeprazole (omeprazole 20 mg Cap-DR) See instructions TAKE 1 CAPSULE BY MOUTH EVERY DAY Unchanged pravastatin (pravastatin 80 mg Tab) See instructions TAKE 1 TABLET BY MOUTH EVERYDAY AT BEDTIME Pickup at [facility] #[id number] Unchanged semaglutide (Ozempic 2 mg/ 3 mL (0.25 mg or 0.5 mg dose) subcutaneous solution) See instructions INJECT 0.5 MG SUBCUTANEOUSLY ONE TIME PER WEEK Unchanged theophylline (theophylline 450 mg ER Tab) See instructions TAKE 1 TABLET BY MOUTH EVERY 12 HOURS Unchanged theophylline (theophylline 450 mg ER Tab) See instructions TAKE 1 TABLET BY MOUTH EVERY 12 HOURS Unchanged venlafaxine (venlafaxine 150 mg Cap-ER) See instructions TAKE 1 CAPSULE BY MOUTH TWICE A DAY [facility] Information [id number] [address], [place] [phone] (more content not included)... Normal [facility] Family Medicine Office/Clini c Noteon 02-19-2025 Family Medicine Office/Clinic Note Family Medicine Office/Clinic Note Chief Complaint The patient presents for follow-up on diabetes management and respiratory issues related to emphysema/COPD. HPI Staff Ricardo is a 64 year old male presenting with 3 month f/u Do you have any of the following symptoms? Foot Exam: due today Eye Exam: due Last A1C: October 25 2024 ( 7.9) Statin: Pravastatin 80 mg He gets a rash in his Groin area, was wondering if it from his Jardiance needs refills on Pravastatin History of Present Illness 64-year-old male presenting with type 2 diabetes mellitus and emphysema/COPD management. The patient reports blood sugar levels fluctuating between 135 and 200 mg/dL, indicating suboptimal control of diabetes. He is currently on glipizide and Jardiance, with a noted side effect of a yeast infection, which is being managed with nystatin powder. The patient has a history of emphysema/COPD, previously managed by Dr. Montenegro, who is no longer available. Pulmonology follow-up is pending with a new provider. The patient has a history of obesity, classified as Class II with a BMI between 35-39.9, without comorbidities. He is a former smoker, which contributes to his respiratory condition. Review of Systems PHQ Score Initial Depression Screen Score: 0 SCORE - Endocrine: Reports blood sugar levels fluctuating between 135 and 200 mg/dL. - Respiratory: Reports stable emphysema/COPD symptoms, pending pulmonology follow-up. - Dermatological: Reports yeast infection managed with nystatin powder. - General: Denies acute distress. Physical Exam Vitals & Measurements T: 36.1 ???C(Temporal Artery) HR: 84(Peripheral) RR: 18 BP: 132/82 SpO2: 94% HT: 70 in HT: 177.0 cm WT: 109.7 kg WT: 241.847 lb BMI: 35.02 General: alert, no acute distress Cardiovascular: regular rate and rhythm, normal peripheral perfusion Respiratory: Lungs CTA, respirations non labored Extremities: no deformity, no trauma Neurological: oriented x 4, LOC appropriate for age speech normal Assessment/Plan 1. Type 2 diabetes mellitus with complication (E11.8: Type 2 diabetes mellitus with unspecified complications) - Continue current medications, glipizide and Jardiance, with monitoring for side effects such as yeast infections. - Blood sugar levels to be monitored regularly, with target range adjustments as needed. - Awaiting laboratory test results - Follow-up in three months to reassess A1c and overall management. Ordered: Basic Metabolic Panel HgbA1c Lab Specimen Collect [id number] Urine Microalbumin/Creatin ine Ratio 2. Emphysema/COPD (J43.9: Emphysema, unspecified) - Pulmonology follow-up is pending with a new provider for continued management. - Monitor respiratory status and adjust inhaler use as needed. 3. Obesity, Class II, BMI 35-39.9, no comorbidity (E66.812: Obesity, class 2) - Encourage lifestyle modifications including diet and exercise to manage weight. 4. Former smoker (Z87.891: Personal history of nicotine dependence) - Continue to monitor respiratory health and provide support for smoking cessation maintenance. 5. Skin yeast infection (B37.2: Candidiasis of skin and nail) Ordered: nystatin topical, 1 scarlett, Topical, TID, 15 gram, [facility]) [id number], cm, 02/19/25 15:09:00 EDT, Height/Length Dosing, 109.7, kg, 02/19/25 15:09:00 EDT, Weight Dosing 6. Rhinitis (J31.0: Chronic rhinitis) Ordered: hydrOXYzine, 25 mg = 1 tab(s), Oral, QID, PRN for itching, # 40 tab(s), Refills(s) 0, [id number] 177, cm, 02/19/25 15:09:00 EDT, Height/Length Dosing, 109.7, kg, 02/19/25 15:09:00 EDT, Weight Dosing Orders: pravastatin, See Instructions, TAKE 1 TABLET BY MOUTH EVERYDAY AT BEDTIME, # 90 tab(s), Refills(s) 1, [id number] 177, cm, 02/19/25 15:09:00 EDT, Height/Length Dosing, 109.7, kg, 02/19/25 15:09:00 EDT, Weight Dosing Follow-up No qualifying data available Patient Education Skin Yeast Infection Problem List/Past Medical History Ongoing Anxiety BPH with obstruction/lower urinary tract symptoms Chronic hypoxic respiratory failure Emphysema/COPD Former smoker History of opioid abuse Hyperlipidemia 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 Normal [facility] Comment on above: Result Comment: Elec tronically Signed By: SARAH TRIVEDI CNP\Date and Time Signed: 02/19/25 16:37 EDT 36on 02-11-2025 36 LM for patient letting him know Dr. Devlin did not want to start him on anticoagulation at this time, and he would prefer he wait and discuss this with Dr. Cook at his upcoming apt on 03/05. [facility] 36 Regarding new onset afib on event monitor on 02/05/2025: MD Racheal Mcleod MA Please have him set up see an MD or an SCARLETT in the next 1 week to discuss probable AF and the need for anti-coagulation Thanks. Spoke with patient and tried to get him to come for visit tomorrow with Jadon, or 02/14 with Jenni. He states he cannot pay for gas to drive here from [place] until Tuesday, 02/15. I have nothing available again with anyone until Tuesday, with Dr. Cook. Can you start him on something to get him to that apt by chance? Thanks. [facility] Office Visiton 01-24-2025 Follow-up visit [id number] Ricardo Hylton 1960 M Date Provider Department Center 01/24/2025 Rosemary-CALLI DEVLIN Family History Problem Relation Age of Onset Hypertension Mother Family Status - Relation Status Age at Mother Level of Service:82663 CT OFFICE/OUTPATIENT NEW MODERATE MDM 45 MINUTES [facility] Orders Onlyon 01-23-2025 Orders Only [id number] Ricardo Hylton 1960 M Date Provider Department Center 01/23/2025 [id number], HISTORICAL STEWART Pelletier Family History Problem Relation Age of Onset Hypertension Mother Family Status - Relation Status Age at Mother [facility] Ambulatory Visit Summaryon 0 11-28-2024 Ambulatory Visit [...] PM EDT With: SARAH TRIVEDI CNP Where: [address] [address]- Tuesday 1:00 PM EDT With: Where: [facility] [address] [address]- Tuesday 11:00 AM EDT With: Where: [facility] [address] [place] [address]- Tuesday 11:15 AM EDT With: Joo YIP MD Where: [facility] [address] [place] [address]- You Need to Schedule the Following Appointments Follow Up with Joo YIP MD, URL When: Where: [facility] [address] [place] [address]- Medications What How Much When Why Instructions New doxycycline (doxycycline hyclate 100 mg Cap) 1 Capsules By Mouth 2 times a day Duration: 21 Days Pickup at [facility] #[id number] Unchanged albuterol-ipratropiu m (Combivent Respimat 20 mcg-100 [...] concerns U (more content not included)... Normal [facility] .Interpretation:on HCV Ab IA Ql Comment Invalid Interpretation Code [facility] Comment on above: Result Comment: Not infected with HCV unless early or acute infection is suspected (which may be delayed in an immunocompromised individual), or other evidence exists to indicate HCV infection. Performed at: [employer] [facility] [address] [place] [address] [id number] PhD Antelmo Cornejo Performed By: #### 2 [id number] #### [facility] [address] [place] [address] HCV Antibody RFX to Quant PC Georges 10-28-2024 HCV Ab IA Ql Non-Reactive Invalid Interpretation Code Non Reactive [facility] Comment on above: Result Comment: Perf ormed at: [facility] [facility] [address] [place] [address] [id number] PhD Antelmo Cornejo Performed By: #### 2 [id number] #### [facility] [address] [place] [address] [id number] 10-26-2024 HbA1c (Bld) [Mass fraction] 7.9 % High <=5.9 [facility] Comment on above: Performed By: #### 7 [id number] #### [facility] [address] [place] [address] PSA Totalon 10-26-2024 Prostate specific Ag [Mass/Vol] 5.0 ng/mL High 0.1-3.5 [facility] Comment on above: Result Comment: The concentration of PSA determined by different manufacturers can vary due to differences in assay methods and reagent specificity. Values obtained from different assay methods cannot be used interchangeably. The methodology used for this result was chemiluminescence using [employer]'s Access Hybritech PSA reagent. Performed By: #### 1 [id number] #### [facility] [address] [place] [address] Family Medicine Office/Clini c Noteon 10-25-2024 Family Medicine Office/Clinic Note Family Medicine Office/Clinic Note Chief Complaint Difficulty breathing due to known lung disease; concern for blood glucose management. HPI Staff Ricardo is a 63 year old male presenting with [facility] Hospital: [facility] Admission date: 10/04/24 Discharge date: 10/05/24 Symptoms [...] 2 diabetes mellitus with unspecified complications) Ordered: [facility] Prescription, Glucose Kit, See Instructions, 1 EA, [...] qAM, # 90 tab(s), Refills(s) 1, Pharmacy: [facility] #[id number], 177, cm, 10/25/24 14:03:00 EDT, Height/Length Dosing, 109.4, kg, 10/25/24 14:03:00 EDT, Weight Dosing glipiZIDE, See Instructions, TAKE 1 TABLET BY MOUTH TWICE A DAY, # 60 tab(s), Refills(s) 5, Pharmacy: [facility] #[id number], 177, cm, 10/25/24 14:03:00 EDT, Height/Length Dosing, 109.4, kg, 10/25/24 14:03:00 EDT, Weight Dosing Follow-up With When Contact Information SARAH TRIVEDI CNP, FAM Within [address] [place], [place] [id number] [facility] (1) Additional Instructions: Diabetes Patient Education Diabetes Mellitus and Exercise Problem List/Past Medical History Ongoing Anxiety Chronic hypoxic respiratory failure Emphysema/COPD History of opioid abuse Hyperlipidemia 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 HPI Staff Ricardo is a 63 year old male presenting with [facility] Hospital: [facility] Admission date: 10/04/24 Discharge date: 10/05/24 Symptoms [...] exercise - f/u in 3 months Ordered: [facility] Prescription, Glucose Kit, See Instructions, 1 EA, 0, Glucose meter. Include autolet, matching test strips, lancets, & alcohol wipes, #100 or as allowed by insurance; DX: E11.9, [facility] #[id number], Supply, 177, cm, 10/25/24 14:03:00 EDT, [...] qAM, # 90 tab(s), Refills(s) 1, Pharmacy: [facility] #[id number], 177, cm, 10/25/24 14:03:00 EDT, Height/Length Dosing, 109.4, kg, 10/25/24 14:03:00 EDT, Weight Dosing glipiZIDE, See Instructions, TAKE 1 TABLET BY MOUTH TWICE A DAY, # 60 tab(s), Refills(s) 5, Pharmacy: [facility]pharm[facility] #[id number], 177, cm, 10/25/24 14:03:00 EDT, Height/Length Dosing, 109.4, kg, 10/25/24 14:03:00 EDT, Weight Dosing Follow-up No qualifying data available Patient Education Diabetes Mellitus and Exercise Problem List/Past Medical History Ongoing Anxiety [place] (more content not included)... Normal [facility] Comment on above: Result Comment: Elec tronically Signed By: SARAH TRIVEDI CNP\.br\Date and Time Signed: 10/25/24 14:46 EDT Pre-Visit Planningon 025 Pre-Visit Planning Pre-Visit Planning - From: Xochilt Mehta To: SARAH TRIVEDI CNP; Sent: 10/24/2024 15:13:30 EDT Subject: Pre-Visit Planning Due Date/Time: 10/24/2024 15:13:00 EDT Caller Name: RICARDO HYLTON; Caller Number: Jose , Maurice Stephen Mcnally. During a pre-visit planning chart review, I [...] feel free to contact me at extension [phone]. Thank you! Xochilt Mehta LPN Clinical Air Brake Worker [address] [address] Extension: [phone] [email or web address] [email or web address] - From: SARAH TRIVEDI CNP To: Xochilt Mehta; Sent: 10/25/2024 15:41:25 EDT Subject: RE: Pre-Visit Planning Caller Name: RICARDO HYLTON; Caller Number: H , M Major depressive disorder, recurrent, in partial remission- Please update the chart to reflect this diagnosis Normal [facility] Pre-Visit Planningon 025 Pre-Visit Planning Pre-Visit Planning - From: Xochilt Mehta To: SARAH TRIVEDI CNP; Sent: 10/10/2024 08:04:54 EDT Subject: Pre-Visit Planning Due Date/Time: 10/10/2024 08:04:00 EDT Caller Name: RICARDO HYLTON; Caller Number: H , M [facility] Sarah. During a pre-visit planning chart review, I [...] feel free to contact me at extension [phone]. Thank you! Xochilt Mehta LPN Clinical Air Brake Worker [place] [phone] Extension: [phone] [email or web address] [email or web address] - From: SARAH TRIVEDI CNP To: Xochilt Mehta; Sent: 10/11/2024 14:27:33 EDT Subject: RE: Pre-Visit Planning Caller Name: RICARDO HYLTON; Caller Number: , M Patient was a no-show for his appointment today. Normal [facility] Provider Letteron 10-09-2024 Provider Letter Provider Letter October 09, 2024 RICARDO HYLTON [address] [place] [phone] RICARDO HYLTON 1960 Dear Ricardo Hylton, We have been trying to reach you with no success. It is important that you return our call regarding your hospital discharge upon receiving this letter. Also, at the time of your call, please provide us with your current information. Thank you for your prompt attention to this matter. Sincerely, Mary Silva RN/Project Program Manager [facility] Care option 2 Normal [facility] Alanine aminotransferase [En zymatic activity/volume] in Serum or PlasmaOrdered By: Clifton Calderon on 10-05-2024 ALT [Catalytic activity/Vol] Alanine aminotransferase [Enzymatic activity/volume] in Serum or Plasma [facility] Albumin [Mass/volume] in Ser um or Plasma by Bromocresol green (BCG) dye binding methoOrdered By: Clifton Calderon on 10-05-2024 Albumin BCG dye [Mass/Vol] Albumin [Mass/volume] in Serum or Plasma by Bromocresol green (BCG) dye binding metho 3.5-5.7 [facility] Alkaline phosphatase [Enzyma tic activity/volume] in Serum or PlasmaOrdered By: Clifton Calderon on 10-05-2024 ALP [Catalytic activity/Vol] Alkaline phosphatase [Enzymatic activity/volume] in Serum or Plasma 34-104 [facility] Aspartate aminotransferase [ Enzymatic activity/volume] in Serum or PlasmaOrdered By: Clifton Calderon on 10-05-2024 AST [Catalytic activity/Vol] Aspartate aminotransferase [Enzymatic activity/volume] in Serum or Plasma Low 13-39 [facility] Basophils Auto (Bld) [#/Vol] Ordered By: Clifton Calderon on 10-05-2024 Basophils (Bld) [#/Vol] Automated basoph il count 0.0-0.2 [facility] Basophils/100 WBC Auto (Bld) Ordered By: Clifton Calderon on 10-05-2024 Basophils/100 WBC (Bld) Automated basophil % . [facility] Bilirubin.total [Mass/volume ] in Serum or PlasmaOrdered By: Clifton Calderon on 10-05-2024 Bilirubin [Mass/Vol] Bilirubin.total [Mass/volume] in Serum or Plasma 0.3-1.0 [facility] Calcium [Mass/volume] in Ser um or PlasmaOrdered By: Clifton Calderon on 10-05-2024 Calcium [Mass/Vol] Calcium [Mass/volume] in Serum or Plasma 8.6-10.3 [facility] Carbon dioxide, total [Moles /volume] in Serum or PlasmaOrdered By: Clifton Calderon on 10-05-2024 CO2 [Moles/Vol] Carbon dioxide, total [Moles/volume] in Serum or Plasma 21.0-31.0 [facility] Chloride [Moles/volume] in S bee or PlasmaOrdered By: Clifton Calderon on 10-05-2024 Chloride [Moles/Vol] Chloride [Moles/volume] in Serum or Plasma 98-107 [facility] Complete Blood Count Auto Di ffon 10-05-2024 Basophils (Bld) [#/Vol] 0.1 10*3/uL Normal 0.0-0.2 [facility] Comment on above: Result Comment: PERF ORMED BY: [place] [address] PATHOLOGIST POWERHOUSE HELPER NARESH VERA M.D. Performed By: #### G LULS #### Point of Care testing , Basophils/100 WBC (Bld) 0.4 % Normal . T he [facility] Comment on above: Performed By: #### G LULS #### Point of Care testing , Eosinophils (Bld) [#/Vol] 0.0 10*3/uL Normal 0.0-0.45 [facility] Comment on above: Performed By: #### G LULS #### Point of Care testing , Eosinophils/100 WBC (Bld) 0.1 % Normal . [facility] Comment on above: Performed By: #### G LULS #### Point of Care testing , Erythrocyte distribution width (RBC) [Ratio] 24.7 % High 12.0-14.8 [facility] Comment on above: Performed By: #### G LULS #### Point of Care testing , Hematocrit (Bld) [Volume fraction] 44.8 % Normal 38.8-50.0 [facility] Comment on above: Performed By: #### G LULS #### Point of Care testing , Hemoglobin (Bld) [Mass/Vol] 14.7 g/dL Normal 13.0-17.0 [facility] Comment on above: Performed By: #### G LULS #### Point of Care testing , Lymphocytes (Bld) [#/Vol] 1.3 10*3/uL Normal 1.00-4.8 [facility] Comment on above: Performed By: #### G LULS #### Point of Care testing , Lymphocytes/100 WBC (Bld) 9.3 % Normal . [facility] Comment on above: Performed By: #### G LULS #### Point of Care testing , MCH (RBC) [Entitic mass] 24.7 pg Low 27.5-35.2 [facility] Comment on above: Performed By: #### G LULS #### Point of Care testing , MCV (RBC) [Entitic vol] 75.2 fL Low 83.5-101 [facility] Comment on above: Performed By: #### G LULS #### Point of Care testing , Mean Corpuscular HGB Conc 32.9 g/dL Normal 32.5-35.6 [facility] Comment on above: Performed By: #### G LULS #### Point of Care testing , Monocytes (Bld) [#/Vol] 1.3 10*3/uL High 0.0-0.8 [facility] Comment on above: Performed By: #### G LULS #### Point of Care testing , Monocytes/100 WBC (Bld) 9.1 % Normal . [facility] Comment on above: Performed By: #### G LULS #### Point of Care testing , Neutrophils (Bld) [#/Vol] 11.5 10*3/uL High 1.8-7.7 [facility] Comment on above: Performed By: #### G LULS #### Point of Care testing , Neutrophils/100 WBC (Bld) 81.1 % Normal . [facility] Comment on above: Performed By: #### G LULS #### Point of Care testing , NRBC% 0.0 /100{WBC} Normal 0-0.5 [facility] Comment on above: Performed By: #### G LULS #### Point of Care testing , Platelet mean volume (Bld) [Entitic vol] 8.6 fL Normal 6.6-10.1 [facility] Comment on above: Performed By: #### G LULS #### Point of Care testing , Platelets (Bld) [#/Vol] 350 10*3/uL Normal 150-450 [facility] Comment on above: Performed By: #### G LULS #### Point of Care testing , RBC (Bld) [#/Vol] 5.95 10*6/uL High 3.90-5.60 [facility] Comment on above: Performed By: #### G LULS #### Point of Care testing , WBC (Bld) [#/Vol] 14.2 10*3/uL High 4.1-10.5 [facility] Comment on above: Performed By: #### G RAYMUNDOLS #### Point of Care testing , Comprehensive Metabolic Pane serene 10-05-2024 Albumin [Mass/Vol] 4.0 g/dL Normal 3.5-5.7 [facility] Comment on above: Performed By: #### G RAYMUNDOLS #### Point of Care testing , Albumin/Globulin [Mass ratio] 1.4 {ratio} Normal [facility] Comment on above: Performed By: #### G RAYMUNDOLS #### Point of Care testing , ALP [Catalytic activity/Vol] 83 U/L Normal 34-104 [facility] Comment on above: Performed By: #### G RAYMUNDOLS #### Point of Care testing , ALT [Catalytic activity/Vol] 10 U/L Normal 7-52 [facility] Comment on above: Performed By: #### G RAYMUNDOLS #### Point of Care testing , Anion gap [Moles/Vol] 15.2 mmol/L High 6.0-15.0 [facility] Comment on above: Performed By: #### G RAYMUNDOLS #### Point of Care testing , AST [Catalytic activity/Vol] 9 U/L Low 13-39 [facility] Comment on above: Performed By: #### G RAYMUNDOLS #### Point of Care testing , Bilirubin [Mass/Vol] 0.3 mg/dL Normal 0.3-1.0 [facility] Comment on above: Performed By: #### G RAYMUNDOLS #### Point of Care testing , Calcium [Mass/Vol] 9.0 mg/dL Normal 8.6-10.3 [facility] Comment on above: Performed By: #### G RAYMUNDOLS #### Point of Care testing , Chloride [Moles/Vol] 100 mmol/L Normal 98-107 [facility] Comment on above: Performed By: #### G LESLEE #### Point of Care testing , CO2 [Moles/Vol] 28.2 mmol/L Normal 21.0-31.0 [facility] Comment on above: Performed By: #### G LULS #### Point of Care testing , Creatinine [Mass/Vol] 1.18 mg/dL Normal 0.70-1.30 [facility] Comment on above: Performed By: #### G LULS #### Point of Care testing , Creatinine Clr Calc Pharmacy 76.09 Normal [facility] Comment on above: Result Comment: PERF ORMED BY: [facility] [place] [address] PATHOLOGIST [employer]PER NARESH VERA M.D. Performed By: #### G LULS #### Point of Care testing , GFR/1.73 sq M.predicted MDRD (S/P/Bld) [Vol rate/Area] mL/min/{1.73_m2} Normal [facility] Comment on above: Performed By: #### G LULS #### Point of Care testing , Globulin (S) [Mass/Vol] 2.8 g/dL Normal T he [facility] Comment on above: Performed By: #### G LULS #### Point of Care testing , Glucose [Mass/Vol] 157 mg/dL High 70-100 [facility] Comment on above: Result Comment: [place] Glucose Reference Range is dependent on time and content of last meal. Glucose of more than 200 mg/dL in a nonstressed, ambulatory subject supports the diagnosis of Diabetes Mellitus. ADA recommended reference range Performed By: #### G LULS #### Point of Care testing , Potassium [Moles/Vol] 4.4 mmol/L Normal 3.5-5.1 [facility] Comment on above: Performed By: #### G LULS #### Point of Care testing , Protein [Mass/Vol] 6.8 g/dL Normal 6.4-8.9 [facility] Comment on above: Performed By: #### G LULS #### Point of Care testing , Sodium [Moles/Vol] 139 mmol/L Normal 136-145 [facility] Comment on above: Performed By: #### G LULS #### Point of Care testing , Urea nitrogen [Mass/Vol] 31 mg/dL High 7-25 [facility] Comment on above: Performed By: #### G LESLEE #### Point of Care testing , Creatinine [Mass/volume] in Serum or PlasmaOrdered By: Clifton Calderon on 10-05-2024 Creatinine [Mass/Vol] Creatinine [Mass/volume] in Serum or Plasma 0.70-1.30 [facility] Eosinophils Auto (Bld) [#/Vo l]Ordered By: Clifton Calderon on 10-05-2024 Eosinophils (Bld) [#/Vol] Automated eosinophil count 0.0-0.45 [facility] Eosinophils/100 WBC Auto (Bl d)Ordered By: Clifton Calderon on 10-05-2024 Eosinophils/100 WBC (Bld) Automated eosinophil % . [facility] Erythrocyte distribution wid th Auto (RBC) [Ratio]Ordered By: Clifton Calderon on 10-05-2024 Erythrocyte distribution width (RBC) [Ratio] Erythrocyte distribution width [Ratio] by Automated count High 12.0-14.8 [facility] Globulin Calc (S) [Mass/Vol] Ordered By: Clifton Calderon on 10-05-2024 Globulin (S) [Mass/Vol] Serum globulin measurement by calculation (mass/volume) [facility] Glucose Glucometer (BldC) [M ass/Vol]Ordered By: Eden Greenwood on 10-05-2024 Glucose [Mass/Vol] Capillary blood glucose measurement by glucometer (mass/volume) [facility] Comment on above: Random Glucose Refer ence Range is dependent on time and content of last meal. Glucose of more than 200 mg/dL in a nonstressed, ambulatory subject supports the diagnosis of Diabetes Mellitus. Glucose Poct Glucometerson 0 10-05-2024 Glucose [Mass/Vol] 321 mg/dL Normal [facility] Comment on above: Result Comment: [place] Glucose Reference Range is dependent on time and content of last meal. Glucose of more than 200 mg/dL in a nonstressed, ambulatory subject supports the diagnosis of Diabetes Mellitus. PERFORMED BY: [facility] [address] [place] [address] PATHOLOGIST [employer]OWERHOUSE HELPER NARESH VERA M.D. Performed By: #### G LESLEE #### Point of Care testing , Glucose [Mass/Vol] 178 mg/dL Normal [facility] Comment on above: Result Comment: [place] om Glucose Reference Range is dependent on time and content of last meal. Glucose of more than 200 mg/dL in a nonstressed, ambulatory subject supports the diagnosis of Diabetes Mellitus. PERFORMED BY: [facility] [address] [place] [address] PATHOLOGIST POWERHOUSE HELPER NARESH VERA M.D. Performed By: #### G LESLEE #### Point of Care testing , Glucose [Mass/volume] in Ser um or PlasmaOrdered By: Clifton Calderon on 10-05-2024 Glucose [Mass/Vol] Glucose [Mass/volume] in Serum or Plasma High 70-100 [facility] Comment on above: ADA recommended refe rence rangeRandom Glucose Reference Range is dependent on time and content of last meal. Glucose of more than 200 mg/dL in a nonstressed, ambulatory subject supports the diagnosis of Diabetes Mellitus. Hematocrit Auto (Bld) [Volum e fraction]Ordered By: Clifton Caldreon on 10-05-2024 Hematocrit (Bld) [Volume fraction] Hematocrit [Volume Fraction] of Blood by Automated count 38.8-50.0 [facility] Hemoglobin [Mass/volume] in BloodOrdered By: Clifton Calderon on 10-05-2024 Hemoglobin (Bld) [Mass/Vol] Hemoglobin [Mass/volume] in Blood 13.0-17.0 [facility] Leukocytes [#/volume] correc yamil for nucleated erythrocytes in Blood by Automated counOrdered By: Clifton Calderon on 10-05-2024 WBC corrected for nucl RBC Auto (Bld) [#/Vol] Leukocytes [#/volume] corrected for nucleated erythrocytes in Blood by Automated coun High 4.1-10.5 [facility] Lymphocytes Auto (Bld) [#/Vo l]Ordered By: Clifton Calderon on 10-05-2024 Lymphocytes (Bld) [#/Vol] Lymphocytes [#/volume] in Blood by Automated count 1.00-4.8 [facility] Lymphocytes/100 WBC Auto (Bl d)Ordered By: Clifton Calderon on 10-05-2024 Lymphocytes/100 WBC (Bld) Lymphocytes/100 leukocytes in Blood by Automated count . [facility] MCH Auto (RBC) [Entitic mass ]Ordered By: Clifton Calderon on 10-05-2024 MCH (RBC) [Entitic mass] MCH [Entitic mass] by Automated count Low 27.5-35.2 [facility] MCHC Auto (RBC) [Mass/Vol]Or dered By: Clifton Calderon on 10-05-2024 MCHC (RBC) [Mass/Vol] MCHC [Mass/volume] by Automated count 32.5-35.6 [facility] MCV Auto (RBC) [Entitic vol] Ordered By: Clifton Calderon on 10-05-2024 MCV (RBC) [Entitic vol] MCV [Entitic vol ume] by Automated count Low 83.5-101 [facility] Monocytes Auto (Bld) [#/Vol] Ordered By: Clifton Calderon on 10-05-2024 Monocytes (Bld) [#/Vol] Automated blood monocyte count High 0.0-0.8 [facility] Monocytes/100 WBC Auto (Bld) Ordered By: Clifton Calderon on 10-05-2024 Monocytes/100 WBC (Bld) Automated monocyte % . [facility] Neutrophils Auto (Bld) [#/Vo l]Ordered By: Clifton Calderon on 10-05-2024 Neutrophils (Bld) [#/Vol] Neutrophils [#/volume] in Blood by Automated count High 1.8-7.7 [facility] Neutrophils/100 WBC Auto (Bl d)Ordered By: Clifton Calderon on 10-05-2024 Neutrophils/100 WBC (Bld) Automated neutrophil % . [facility] No Panel InformationOrdered By: Clifton Calderon on 10-05-2024 Estimated GFR (CKD-EPI) > 60.0 mL/Min [facility] Creatinine Clearance (Chem 76.09 [facility] Nucleated erythrocytes [Pres ence] in Blood by Automated countOrdered By: Clifton Calderon on 10-05-2024 Nucleated RBC Auto Ql (Bld) Nucleated erythrocytes [Presence] in Blood by Automated count 0-0.5 [facility] Platelet mean volume Auto (B ld) [Entitic vol]Ordered By: Clifton Calderon on 10-05-2024 Platelet mean volume (Bld) [Entitic vol] Platelet mean volume [Entitic volume] in Blood by Automated count 6.6-10.1 [facility] Platelets Auto (Bld) [#/Vol] Ordered By: Clifton Calderon on 10-05-2024 Platelets (Bld) [#/Vol] Platelets [#/vol ume] in Blood by Automated count 150-450 [facility] Potassium [Moles/volume] in Serum or PlasmaOrdered By: Clifton Calderon on 10-05-2024 Potassium [Moles/Vol] Potassium [Moles/volume] in Serum or Plasma 3.5-5.1 [facility] Protein [Mass/volume] in Ser um or PlasmaOrdered By: Clifton Calderon on 10-05-2024 Protein [Mass/Vol] Protein [Mass/volume] in Serum or Plasma 6.4-8.9 [facility] RBC Auto (Bld) [#/Vol]Ordere d By: Clifton Calderon on 10-05-2024 RBC (Bld) [#/Vol] Erythrocytes [#/volume] in Blood by Automated count High 3.90-5.60 [facility] Serum or plasma albumin/glob ulin mass ratioOrdered By: Clifton Calderon on 10-05-2024 Albumin/Globulin [Mass ratio] Serum or plasma albumin/globulin mass ratio [facility] Serum or plasma anion gap de terminationOrdered By: Clifton Calderon on 10-05-2024 Anion gap [Moles/Vol] Serum or plasma anion gap determination High 6.0-15.0 [facility] Sodium [Moles/volume] in Ser um or PlasmaOrdered By: Clifton Calderon on 10-05-2024 Sodium [Moles/Vol] Sodium [Moles/volume] in Serum or Plasma 136-145 [facility] Urea nitrogen [Mass/volume] in Serum or PlasmaOrdered By: Clifton Calderon on 10-05-2024 Urea nitrogen [Mass/Vol] Urea nitrogen [Mass/volume] in Serum or Plasma High 7-25 [facility] WBC Auto (Bld) [#/Vol]Ordere d By: Clifton Calderon on 10-05-2024 WBC (Bld) [#/Vol] Leukocytes [#/volume] in Blood by Automated count High 4.1-10.5 [facility] Alanine aminotransferase [En zymatic activity/volume] in Serum or PlasmaOrdered By: Pranay Bai on 10-04-2024 ALT [Catalytic activity/Vol] Alanine aminotransferase [Enzymatic activity/volume] in Serum or Plasma 7-52 [facility] Albumin [Mass/volume] in Ser um or Plasma by Bromocresol green (BCG) dye binding methoOrdered By: Pranay Bai on 10-04-2024 Albumin BCG dye [Mass/Vol] Albumin [Mass/volume] in Serum or Plasma by Bromocresol green (BCG) dye binding metho 3.5-5.7 [facility] Alkaline phosphatase [Enzyma tic activity/volume] in Serum or PlasmaOrdered By: Pranay Bai on 10-04-2024 ALP [Catalytic activity/Vol] Alkaline phosphatase [Enzymatic activity/volume] in Serum or Plasma High 34-104 [facility] Anisocytosis LM Ql (Bld)Orde red By: Pranay Bai on 10-04-2024 Anisocytosis Ql (Bld) Anisocytosis [Presence] in Blood by Light microscopy [facility] Aspartate aminotransferase [ Enzymatic activity/volume] in Serum or PlasmaOrdered By: Pranay Bai on 10-04-2024 AST [Catalytic activity/Vol] Aspartate aminotransferase [Enzymatic activity/volume] in Serum or Plasma 13-39 [facility] B-Type Natriuretic Peptideon 10-04-2024 Natriuretic peptide B (Bld) [Mass/Vol] 32.0 pg/mL Normal 5-100 [facility] Comment on above: Result Comment: PERF ORMED BY: [facility] [address] [place] [address] PATHOLOGIST P[employer]SE HELPER NARESH VERA M.D. Performed By: #### S CAN CBC, CK, HS TROP, BNP, CMP #### [facility] [address] [id number] [place] Basophils Auto (Bld) [#/Vol] Ordered By: Pranay Bai on 10-04-2024 Basophils (Bld) [#/Vol] Automated basoph il count 0.0-0.2 [facility] Basophils/100 WBC Auto (Bld) Ordered By: Pranay Bai on 10-04-2024 Basophils/100 WBC (Bld) Automated basophil % . [facility] Bilirubin.total [Mass/volume ] in Serum or PlasmaOrdered By: Pranay Bai on 10-04-2024 Bilirubin [Mass/Vol] Bilirubin.total [Mass/volume] in Serum or Plasma 0.3-1.0 [facility] BioFire Detectedon BioFire Detected Detected Critically abnormal Not Detecte [facility] Comment on above: Result Comment: This is a duplicate RP2.1 COVID (PCR) result to be used for statistical tracking purpose only. PERFORMED BY: [place] [address] PATHOLOGIST POWERHOUSE HELPER NARESH VERA M.D. Performed By: #### G LULS #### Point of Care testing , COVID-19 Detected/Not Detect edOrdered By: Clifton Calderon on 10-04-2024 SARS-CoV-2 (COVID-19) RNA YOLANDA+non-probe Ql (Nph) Not detected Abnormal Not Detecte [facility] Comment on above: This is a duplicate RP2.1 COVID (PCR) result to be used for statistical tracking purpose only. Calcium [Mass/volume] in Ser um or PlasmaOrdered By: Pranay Bai on 10-04-2024 Calcium [Mass/Vol] Calcium [Mass/volume] in Serum or Plasma 8.6-10.3 [facility] Carbon dioxide, total [Moles /volume] in Serum or PlasmaOrdered By: Pranay Bai on 10-04-2024 CO2 [Moles/Vol] Carbon dioxide, total [Moles/volume] in Serum or Plasma 21.0-31.0 [facility] Chloride [Moles/volume] in S bee or PlasmaOrdered By: Pranay Bai on 10-04-2024 Chloride [Moles/Vol] Chloride [Moles/volume] in Serum or Plasma 98-107 [facility] Complete Blood Count Auto Di ffon 10-04-2024 Basophils (Bld) [#/Vol] 0.0 10*3/uL Normal 0.0-0.2 [facility] Comment on above: Result Comment: PERF ORMED BY: [place] [address] PATHOLOGIST P[employer]HOUSE HELPER NARESH VERA M.D. Performed By: #### C MP, CBC, MG #### [address] Basophils/100 WBC (Bld) 0.5 % Normal . [facility] Comment on above: Performed By: #### C MP, CBC, MG #### [facility] [address] [place] [address] Eosinophils (Bld) [#/Vol] 0.0 10*3/uL Normal 0.0-0.45 [facility] Comment on above: Performed By: #### C MP, CBC, MG #### [address] Eosinophils/100 WBC (Bld) 0.2 % Normal . [facility] Comment on above: Performed By: #### C MP, CBC, MG #### [address] Erythrocyte distribution width (RBC) [Ratio] 24.9 % High 12.0-14.8 [facility] Comment on above: Performed By: #### C MP, CBC, MG #### [facility] [address] [place] [address] Hematocrit (Bld) [Volume fraction] 48.8 % Normal 38.8-50.0 [facility] Comment on above: Performed By: #### C MP, CBC, MG #### [address] Hemoglobin (Bld) [Mass/Vol] 16.0 g/dL Normal 13.0-17.0 [facility] Comment on above: Performed By: #### C MP, CBC, MG #### [facility] [address] Lymphocytes (Bld) [#/Vol] 0.6 10*3/uL Low 1.00-4.8 [facility] Comment on above: Performed By: #### C MP, CBC, MG #### [facility] [address] Lymphocytes/100 WBC (Bld) 7.2 % Normal . [facility] Comment on above: Performed By: #### C MP, CBC, MG #### [address] MCH (RBC) [Entitic mass] 25.0 pg Low 27.5-35.2 [facility] Comment on above: Performed By: #### C MP, CBC, MG #### [address] MCV (RBC) [Entitic vol] 76.3 fL Low 83.5-101 [facility] Comment on above: Performed By: #### C MP, CBC, MG #### [address] Mean Corpuscular HGB Conc 32.8 g/dL Normal 32.5-35.6 [facility] Comment on above: Performed By: #### C MP, CBC, MG #### [address] Monocytes (Bld) [#/Vol] 0.3 10*3/uL Normal 0.0-0.8 [facility] Comment on above: Performed By: #### C MP, CBC, MG #### [place] [address] [place] Monocytes/100 WBC (Bld) 3.4 % Normal . [facility] Comment on above: Performed By: #### C MP, CBC, MG #### [address] Neutrophils (Bld) [#/Vol] 7.3 10*3/uL Normal 1.8-7.7 [facility] Comment on above: Performed By: #### C MP, CBC, MG #### [facility] [address] Neutrophils/100 WBC (Bld) 88.7 % Normal . [facility] Comment on above: Performed By: #### C MP, CBC, MG #### [facility] [address] NRBC% 0.2 /100{WBC} Normal 0-0.5 [facility] Comment on above: Performed By: #### C MP, CBC, MG #### [facility] [address] Platelet mean volume (Bld) [Entitic vol] 8.2 fL Normal 6.6-10.1 [facility] Comment on above: Performed By: #### C MP, CBC, MG #### [facility] [address] Platelets (Bld) [#/Vol] 272 10*3/uL Normal 150-450 [facility] Comment on above: Performed By: #### C MP, CBC, MG #### [facility] [address] RBC (Bld) [#/Vol] 6.39 10*6/uL High 3.90-5.60 [facility] Comment on above: Performed By: #### C MP, CBC, MG #### [address] WBC (Bld) [#/Vol] 8.2 10*3/uL Normal 4.1-10.5 [facility] Comment on above: Performed By: #### C MP, CBC, MG #### [address] Comprehensive Metabolic Pane serene 10-04-2024 Albumin [Mass/Vol] 4.3 g/dL Normal 3.5-5.7 [facility] Comment on above: Performed By: #### C MP, CBC, MG #### [address] Albumin/Globulin [Mass ratio] 1.5 {ratio} Normal [facility] Comment on above: Performed By: #### C MP, CBC, MG #### [address] ALP [Catalytic activity/Vol] 97 U/L Normal 34-104 [facility] Comment on above: Performed By: #### C MP, CBC, MG #### [address] ALT [Catalytic activity/Vol] 12 U/L Normal 7-52 [facility] Comment on above: Performed By: #### C MP, CBC, MG #### [address] Anion gap [Moles/Vol] 19.3 mmol/L High 6.0-15.0 [facility] Comment on above: Performed By: #### C MP, CBC, MG #### [address] AST [Catalytic activity/Vol] 12 U/L Low 13-39 [facility] Comment on above: Performed By: #### C MP, CBC, MG #### [address] Bilirubin [Mass/Vol] 0.4 mg/dL Normal 0.3-1.0 [facility] Comment on above: Performed By: #### C MP, CBC, MG #### [address] Calcium [Mass/Vol] 8.8 mg/dL Normal 8.6-10.3 [facility] Comment on above: Performed By: #### C MP, CBC, MG #### [address] Chloride [Moles/Vol] 102 mmol/L Normal 98-107 [facility] Comment on above: Performed By: #### C MP, CBC, MG #### [place] [address] [place] CO2 [Moles/Vol] 22.4 mmol/L Normal 21.0-31.0 The [facility] Comment on above: Performed By: #### C MP, CBC, MG #### [address] Creatinine [Mass/Vol] 1.10 mg/dL Normal 0.70-1.30 [facility] Comment on above: Performed By: #### C MP, CBC, MG #### [address] Creatinine Clr Calc Pharmacy 82.74 Normal [facility] Comment on above: Performed By: #### C MP, CBC, MG #### [place] [address] [place] GFR/1.73 sq M.predicted MDRD (S/P/Bld) [Vol rate/Area] mL/min/{1.73_m2} Normal [facility] Comment on above: Performed By: #### C MP, CBC, MG #### [address] Globulin (S) [Mass/Vol] 2.9 g/dL Normal T he [facility] Comment on above: Performed By: #### C MP, CBC, MG #### [address] Glucose [Mass/Vol] 183 mg/dL High 70-100 [facility] Comment on above: Result Comment: [place] Glucose Reference Range is dependent on time and content of last meal. Glucose of more than 200 mg/dL in a nonstressed, ambulatory subject supports the diagnosis of Diabetes Mellitus. ADA recommended reference range Performed By: #### C MP, CBC, MG #### [address] Potassium [Moles/Vol] 4.7 mmol/L Normal 3.5-5.1 [facility] Comment on above: Performed By: #### C MP, CBC, MG #### [address] Protein [Mass/Vol] 7.2 g/dL Normal 6.4-8.9 [facility] Comment on above: Performed By: #### C MP, CBC, MG #### [address] Sodium [Moles/Vol] 139 mmol/L Normal 136-145 [facility] Comment on above: Performed By: #### C MP, CBC, MG #### [address] Urea nitrogen [Mass/Vol] 18 mg/dL Normal 7-25 [facility] Comment on above: Performed By: #### C MP, CBC, MG #### [address] Albumin [Mass/Vol] 4.7 g/dL Normal 3.5-5.7 [facility] Comment on above: Performed By: #### S CAN CBC, CK, HS TROP, BNP, CMP #### [address] Albumin/Globulin [Mass ratio] 1.3 {ratio} Normal [facility] Comment on above: Performed By: #### S CAN CBC, CK, HS TROP, BNP, CMP #### [address] ALP [Catalytic activity/Vol] 112 U/L High 34-104 [facility] Comment on above: Performed By: #### S CAN CBC, CK, HS TROP, BNP, CMP #### [address] ALT [Catalytic activity/Vol] 14 U/L Normal 7-52 [facility] Comment on above: Performed By: #### S CAN CBC, CK, HS TROP, BNP, CMP #### [address] Anion gap [Moles/Vol] 19.8 mmol/L High 6.0-15.0 Th e [facility] Comment on above: Performed By: #### S CAN CBC, CK, HS TROP, BNP, CMP #### [address] AST [Catalytic activity/Vol] 15 U/L Normal 13-39 [facility] Comment on above: Performed By: #### S CAN CBC, CK, HS TROP, BNP, CMP #### [address] Bilirubin [Mass/Vol] 0.5 mg/dL Normal 0.3-1.0 [facility] Comment on above: Performed By: #### S CAN CBC, CK, HS TROP, BNP, CMP #### [address] Calcium [Mass/Vol] 9.8 mg/dL Normal 8.6-10.3 [facility] Comment on above: Performed By: #### S CAN CBC, CK, HS TROP, BNP, CMP #### [address] Chloride [Moles/Vol] 100 mmol/L Normal 98-107 [facility] Comment on above: Performed By: #### S CAN CBC, CK, HS TROP, BNP, CMP #### [address] CO2 [Moles/Vol] 24.6 mmol/L Normal 21.0-31.0 The [facility] Comment on above: Performed By: #### S CAN CBC, CK, HS TROP, BNP, CMP #### [address] Creatinine [Mass/Vol] 1.26 mg/dL Normal 0.70-1.30 [facility] Comment on above: Performed By: #### S CAN CBC, CK, HS TROP, BNP, CMP #### [place] [address] [place] Creatinine Clr Calc Pharmacy 72.23 Normal [facility] Comment on above: Result Comment: PERF ORMED BY: [place] [address] PATHOLOGIST [employer]HOUSE HELPER NARESH VERA M.D. Performed By: #### S CAN CBC, CK, HS TROP, BNP, CMP #### [address] [place] [address] [place] GFR/1.73 sq M.predicted MDRD (S/P/Bld) [Vol rate/Area] mL/min/{1.73_m2} Normal [facility] Comment on above: Performed By: #### S CAN CBC, CK, HS TROP, BNP, CMP #### [facility] [address] [place] [address] [place] Globulin (S) [Mass/Vol] 3.5 g/dL Normal T he [facility] Comment on above: Performed By: #### S CAN CBC, CK, HS TROP, BNP, CMP #### [facility] [address] Glucose [Mass/Vol] 206 mg/dL High 70-100 The [facility] Comment on above: Result Comment: [facility] [place] Glucose Reference Range is dependent on time and content of last meal. Glucose of more than 200 mg/dL in a nonstressed, ambulatory subject supports the diagnosis of Diabetes Mellitus. ADA recommended reference range Performed By: #### S CAN CBC, CK, HS TROP, BNP, CMP #### [facility] [address] [place] [address] [place] Potassium [Moles/Vol] 5.4 mmol/L High 3.5-5.1 [facility] Comment on above: Performed By: #### S CAN CBC, CK, HS TROP, BNP, CMP #### [facility] [address] [place] [address] [place] Protein [Mass/Vol] 8.2 g/dL Normal 6.4-8.9 [facility] Comment on above: Performed By: #### S CAN CBC, CK, HS TROP, BNP, CMP #### [facility] [address] [place] [address] [place] Sodium [Moles/Vol] 139 mmol/L Normal 136-145 [facility] Comment on above: Performed By: #### S CAN CBC, CK, HS TROP, BNP, CMP #### [facility] [address] [place] [address] [place] Urea nitrogen [Mass/Vol] 15 mg/dL Normal 7-25 [facility] Comment on above: Performed By: #### S CAN CBC, CK, HS TROP, BNP, CMP #### [facility] [address] [place] [address] [place] Creatine Kinaseon 10-04-2024 CK [Catalytic activity/Vol] 58 U/L Normal [facility] Comment on above: Performed By: #### S CAN CBC, CK, HS TROP, BNP, CMP #### [facility] [address] [place] [id number] [facility] Creatine kinase [Enzymatic a ctivity/volume] in Serum or PlasmaOrdered By: Pranay Bai on 10-04-2024 CK [Catalytic activity/Vol] Creatine kinase [Enzymatic activity/volume] in Serum or Plasma [facility] Creatinine [Mass/volume] in Serum or PlasmaOrdered By: Pranay Bai on 10-04-2024 Creatinine [Mass/Vol] Creatinine [Mass/volume] in Serum or Plasma 0.70-1.30 [facility] Eosinophils Auto (Bld) [#/Vo l]Ordered By: Pranay Bai on 10-04-2024 Eosinophils (Bld) [#/Vol] Automated eosinophil count 0.0-0.45 [facility] Eosinophils/100 WBC Auto (Bl d)Ordered By: Pranay Bai on 10-04-2024 Eosinophils/100 WBC (Bld) Automated eosinophil % . [facility] Erythrocyte distribution wid th Auto (RBC) [Ratio]Ordered By: Pranay Bai on 10-04-2024 Erythrocyte distribution width (RBC) [Ratio] Erythrocyte distribution width [Ratio] by Automated count High 12.0-14.8 [facility] Erythrocyte morphology findi ng [Identifier] in BloodOrdered By: Pranay Bai on 10-04-2024 RBC morphology finding Nom (Bld) RBC morphology [facility] Globulin Calc (S) [Mass/Vol] Ordered By: Pranay Bai on 10-04-2024 Globulin (S) [Mass/Vol] Serum globulin measurement by calculation (mass/volume) [facility] Glucose Poct Glucometerson 0 10-04-2024 Glucose [Mass/Vol] 305 mg/dL Normal [facility] Comment on above: Result Comment: [facility] [place] Glucose Reference Range is dependent on time and content of last meal. Glucose of more than 200 mg/dL in a nonstressed, ambulatory subject supports the diagnosis of Diabetes Mellitus. PERFORMED BY: [address] [place] [address] PATHOLOGIST POWERHOUSE HELPER NARESH VERA M.D. Performed By: #### G LULS #### Point of Care testing , Glucose [Mass/Vol] 395 mg/dL Normal [facility] Comment on above: Result Comment: [facility] [place] Glucose Reference Range is dependent on time and content of last meal. Glucose of more than 200 mg/dL in a nonstressed, ambulatory subject supports the diagnosis of Diabetes Mellitus. PERFORMED BY: [address] [place] [address] PATHOLOGIST POWERHOUSE HELPER NARESH VERA M.D. Performed By: #### G LULS #### Point of Care testing , Glucose [Mass/Vol] 288 mg/dL Normal [facility] Comment on above: Result Comment: [facility] [place] Glucose Reference Range is dependent on time and content of last meal. Glucose of more than 200 mg/dL in a nonstressed, ambulatory subject supports the diagnosis of Diabetes Mellitus. PERFORMED BY: [address] [place] [address] PATHOLOGIST POWERHOUSE HELPER NARESH VERA M.D. Performed By: #### G LULS #### Point of Care testing , Glucose [Mass/Vol] 174 mg/dL Normal [facility] Comment on above: Result Comment: [facility] [place] Glucose Reference Range is dependent on time and content of last meal. Glucose of more than 200 mg/dL in a nonstressed, ambulatory subject supports the diagnosis of Diabetes Mellitus. PERFORMED BY: [address] [place] [address] PATHOLOGIST POWERHOUSE HELPER NARESH VERA M.D. Performed By: #### G LULS #### Point of Care testing , Glucose [Mass/volume] in Ser um or PlasmaOrdered By: Pranay Bai on 10-04-2024 Glucose [Mass/Vol] Glucose [Mass/volume] in Serum or Plasma High 70-100 [facility] Comment on above: ADA recommended refe rence rangeRandom Glucose Reference Range is dependent on time and content of last meal. Glucose of more than 200 mg/dL in a nonstressed, ambulatory subject supports the diagnosis of Diabetes Mellitus. Hematocrit Auto (Bld) [Volum e fraction]Ordered By: Pranay Bai on 10-04-2024 Hematocrit (Bld) [Volume fraction] Hematocrit [Volume Fraction] of Blood by Automated count High 38.8-50.0 [facility] Hemoglobin [Mass/volume] in BloodOrdered By: Pranay Bai on 10-04-2024 Hemoglobin (Bld) [Mass/Vol] Hemoglobin [Mass/volume] in Blood High 13.0-17.0 [facility] Hypochromia LM Ql (Bld)Order ed By: Pranay Bai on 10-04-2024 Hypochromia Ql (Bld) Hypochromia [Presence] in Blood by Light microscopy [facility] Leukocytes [#/volume] correc yamil for nucleated erythrocytes in Blood by Automated counOrdered By: Pranay Bai on 10-04-2024 WBC corrected for nucl RBC Auto (Bld) [#/Vol] Leukocytes [#/volume] corrected for nucleated erythrocytes in Blood by Automated coun High 4.1-10.5 [facility] Lymphocytes Auto (Bld) [#/Vo l]Ordered By: Pranay Bai on 10-04-2024 Lymphocytes (Bld) [#/Vol] Lymphocytes [#/volume] in Blood by Automated count 1.00-4.8 [facility] Lymphocytes/100 WBC Auto (Bl d)Ordered By: Pranay Bai on 10-04-2024 Lymphocytes/100 WBC (Bld) Lymphocytes/100 leukocytes in Blood by Automated count . [facility] MCH Auto (RBC) [Entitic mass ]Ordered By: Pranay Bai on 10-04-2024 MCH (RBC) [Entitic mass] MCH [Entitic mass] by Automated count Low 27.5-35.2 [facility] MCHC Auto (RBC) [Mass/Vol]Or dered By: Pranay Bai on 10-04-2024 MCHC (RBC) [Mass/Vol] MCHC [Mass/volume] by Automated count Low 32.5-35.6 [facility] MCV Auto (RBC) [Entitic vol] Ordered By: Pranay Bai on 10-04-2024 MCV (RBC) [Entitic vol] MCV [Entitic vol ume] by Automated count Low 83.5-101 [facility] Magnesiumon 10-04-2024 Magnesium [Mass/Vol] 2.2 mg/dL Normal 1.9-2.7 [facility] Comment on above: Result Comment: PERF ORMED BY: [facility] [address] [place] [address] PATHOLOGIST POWERHOUSE HELPER NARESH VERA M.D. Performed By: #### C MP, CBC, MG #### [address] Magnesium [Mass/volume] in S bee or PlasmaOrdered By: Clifton Calderon on 10-04-2024 Magnesium [Mass/Vol] Magnesium [Mass/volume] in Serum or Plasma 1.9-2.7 [facility] Microcytes LM Ql (Bld)Ordere d By: Pranay Bai on 10-04-2024 Microcytes Ql (Bld) Microcytes [Presence] in Blood by Light microscopy [facility] Monocyte distribution width [Entitic volume] in Blood by AutomatedOrdered By: Pranay Bai on 10-04-2024 Monocyte distribution width Auto (Bld) [Entitic vol] Monocyte distribution width [Entitic volume] in Blood by Automated High 0.00-20.00 [facility] Comment on above: For adults in ED, MD W > 20.0 may be associated with a higher risk of sepsis during the first 12 hrs of hospital admission Monocytes Auto (Bld) [#/Vol] Ordered By: Pranay Bai on 10-04-2024 Monocytes (Bld) [#/Vol] Automated blood monocyte count High 0.0-0.8 [facility] Monocytes/100 WBC Auto (Bld) Ordered By: Pranay Bai on 10-04-2024 Monocytes/100 WBC (Bld) Automated monocyte % . [facility] Natriuretic peptide B [Mass/ Vol]Ordered By: Pranay Bai on 10-04-2024 Natriuretic peptide B (Bld) [Mass/Vol] BNP ser/plas 5-100 [facility] Neutrophils Auto (Bld) [#/Vo l]Ordered By: Pranay Bai on 10-04-2024 Neutrophils (Bld) [#/Vol] Neutrophils [#/volume] in Blood by Automated count High 1.8-7.7 [facility] Neutrophils/100 WBC Auto (Bl d)Ordered By: Pranay Bai on 10-04-2024 Neutrophils/100 WBC (Bld) Automated neutrophil % . [facility] No Panel InformationOrdered By: Pranay Bai on 10-04-2024 Blood Gas Critical Value See comment [facility] Comment on above: Critical Value bragg d on: 10/04/2024 at 00:11 Blood Gas Liter Flow 3 [facility] Blood Gas Sample Site Venous Fir [facility] FiO2 32 % [facility] Venous Blood Base Excess -1.5 mmol/L -3.0-3.0 [facility] Venous Blood Oxygen Content 4.9 mmol/L Low 6.6-9.7 [facility] Venous Blood Oxygen Saturation 43.8 % Critically low 73.0-76.0 [facility] Venous Blood Partial Pressure CO2 48.8 mm[Hg] 38.0-50.0 [facility] Venous Blood Partial Pressure O2 26.1 mm[Hg] Low 35.0-45.0 [facility] Venous Blood pH 7.33 7.32-7.43 [facility] Estimated GFR (CKD-EPI) > 60.0 mL/Min [facility] Pharmacy Creatinine Clearance (Chem 72.23 [facility] Nucleated erythrocytes [Pres ence] in Blood by Automated countOrdered By: Pranay Bai on 10-04-2024 Nucleated RBC Auto Ql (Bld) Nucleated erythrocytes [Presence] in Blood by Automated count 0-0.5 [facility] Platelet adequacy [Presence] in Blood by Light microscopyOrdered By: Pranay Bai on 10-04-2024 Platelets LM Ql (Bld) Platelet adequacy [Presence] in Blood by Light microscopy Normal [facility] Platelet mean volume Auto (B ld) [Entitic vol]Ordered By: Pranay Bai on 10-04-2024 Platelet mean volume (Bld) [Entitic vol] Platelet mean volume [Entitic volume] in Blood by Automated count 6.6-10.1 [facility] Platelet morphology finding [Identifier] in BloodOrdered By: Pranay Bai on 10-04-2024 Platelet morphology finding Nom (Bld) Platelet morphology finding [Identifier] in Blood Normal [facility] Platelets Auto (Bld) [#/Vol] Ordered By: Pranay Bai on 10-04-2024 Platelets (Bld) [#/Vol] Platelets [#/vol ume] in Blood by Automated count 150-450 [facility] Polychromasia [Presence] in Blood by Light microscopyOrdered By: Pranay Bai on 10-04-2024 Polychromasia LM Ql (Bld) Polychromasia [Presence] in Blood by Light microscopy [facility] Potassium [Moles/volume] in Serum or PlasmaOrdered By: Pranay Bai on 10-04-2024 Potassium [Moles/Vol] Potassium [Moles/volume] in Serum or Plasma High 3.5-5.1 [facility] Protein [Mass/volume] in Ser um or PlasmaOrdered By: Pranay Bai on 10-04-2024 Protein [Mass/Vol] Protein [Mass/volume] in Serum or Plasma 6.4-8.9 [facility] RBC Auto (Bld) [#/Vol]Ordere d By: Pranay Bai on 10-04-2024 RBC (Bld) [#/Vol] Erythrocytes [#/volume] in Blood by Automated count High 3.90-5.60 [facility] Respiratory (Upper) Panel, P CRon 10-04-2024 Respiratory [...] FLUA TEST INCLUDES - Influenza A H1 2009 FLUA TEST INCLUDES - Influenza A H3 Blank Space PERFORMED BY: [facility] [address] [place] [address] PATHOLOGIST POWERHOUSE HELPER NARESH VERA M.D. Normal [facility] Comment on above: Performed By: #### G LULS #### Point of Care testing , Respiratory pathogens DNA an d RNA panel - Nasopharynx by YOLANDA with non-probe detectionOrdered By: Clifton Calderon on 10-04-2024 Respiratory pathogens DNA and RNA panel YOLANDA+non-probe (Nph) Respiratory pathogens DNA and RNA panel - Nasopharynx by YOLANDA with non-probe detection [facility] Scan and CBCon 10-04-2024 Anisocytosis Ql (Bld) Marked Normal [facility] Comment on above: Performed By: #### S CAN CBC, CK, HS TROP, BNP, CMP #### [facility] [address] [place] [address] [place] Basophils (Bld) [#/Vol] 0.1 10*3/uL Normal 0.0-0.2 [facility] Comment on above: Performed By: #### S CAN CBC, CK, HS TROP, BNP, CMP #### [address] Basophils/100 WBC (Bld) 0.7 % Normal . [facility] Comment on above: Performed By: #### S CAN CBC, CK, HS TROP, BNP, CMP #### [address] Eosinophils (Bld) [#/Vol] 0.0 10*3/uL Normal 0.0-0.45 [facility] Comment on above: Performed By: #### S CAN CBC, CK, HS TROP, BNP, CMP #### [address] Eosinophils/100 WBC (Bld) 0.2 % Normal . [facility] Comment on above: Performed By: #### S CAN CBC, CK, HS TROP, BNP, CMP #### [address] Erythrocyte distribution width (RBC) [Ratio] 24.6 % High 12.0-14.8 [facility] Comment on above: Performed By: #### S CAN CBC, CK, HS TROP, BNP, CMP #### [address] Hematocrit (Bld) [Volume fraction] 55.3 % High 38.8-50.0 [facility] Comment on above: Performed By: #### S CAN CBC, CK, HS TROP, BNP, CMP #### [address] Hemoglobin (Bld) [Mass/Vol] 17.8 g/dL High 13.0-17.0 [facility] Comment on above: Performed By: #### S CAN CBC, CK, HS TROP, BNP, CMP #### [address] Hypochromasia Slight Normal [facility] Comment on above: Performed By: #### S CAN CBC, CK, HS TROP, BNP, CMP #### [address] Lymphocytes (Bld) [#/Vol] 1.5 10*3/uL Normal 1.00-4.8 [facility] Comment on above: Performed By: #### S CAN CBC, CK, HS TROP, BNP, CMP #### [address] Lymphocytes/100 WBC (Bld) 11.7 % Normal . [facility] Comment on above: Performed By: #### S CAN CBC, CK, HS TROP, BNP, CMP #### [address] MCH (RBC) [Entitic mass] 24.8 pg Low 27.5-35.2 [facility] Comment on above: Performed By: #### S CAN CBC, CK, HS TROP, BNP, CMP #### [address] MCV (RBC) [Entitic vol] 77.2 fL Low 83.5-101 T [facility] Comment on above: Performed By: #### S CAN CBC, CK, HS TROP, BNP, CMP #### [address] Mean Corpuscular HGB Conc 32.1 g/dL Low 32.5-35.6 [facility] Comment on above: Performed By: #### S CAN CBC, CK, HS TROP, BNP, CMP #### [address] Microcytosis Marked Normal [facility] Comment on above: Performed By: #### S CAN CBC, CK, HS TROP, BNP, CMP #### [address] Monocytes (Bld) [#/Vol] 1.6 10*3/uL High 0.0-0.8 [facility] Comment on above: Performed By: #### S CAN CBC, CK, HS TROP, BNP, CMP #### [place] [address] Monocytes/100 WBC (Bld) 21.22 % High 0.00-20.00 [facility] Comment on above: Result Comment: For adults in ED, MDW > 20.0 may be associated with a higher risk of sepsis during the first 12 hrs of hospital admission Performed By: #### S CAN CBC, CK, HS TROP, BNP, CMP #### [address] Monocytes/100 WBC (Bld) 12.6 % Normal . [facility] Comment on above: Performed By: #### S CAN CBC, CK, HS TROP, BNP, CMP #### [address] Neutrophils (Bld) [#/Vol] 9.5 10*3/uL High 1.8-7.7 [facility] Comment on above: Performed By: #### S CAN CBC, CK, HS TROP, BNP, CMP #### [address] Neutrophils/100 WBC (Bld) 74.8 % Normal . [facility] Comment on above: Performed By: #### S CAN CBC, CK, HS TROP, BNP, CMP #### [address] NRBC% 0.2 /100{WBC} Normal 0-0.5 [facility] Comment on above: Performed By: #### S CAN CBC, CK, HS TROP, BNP, CMP #### [address] Platelet Estimate Normal Normal Normal [facility] Comment on above: Performed By: #### S CAN CBC, CK, HS TROP, BNP, CMP #### [address] Platelet mean volume (Bld) [Entitic vol] 8.1 fL Normal 6.6-10.1 [facility] Comment on above: Performed By: #### S CAN CBC, CK, HS TROP, BNP, CMP #### [address] [place] [address] [place] Platelet Morphology Normal Normal Normal [facility] Comment on above: Result Comment: PERF ORMED BY: [place] [address] PATHOLOGIST POWERHOUSE HELPER NARESH VERA M.D. Performed By: #### S CAN CBC, CK, HS TROP, BNP, CMP #### [address] Platelets (Bld) [#/Vol] 315 10*3/uL Normal 150-450 [facility] Comment on above: Performed By: #### S CAN CBC, CK, HS TROP, BNP, CMP #### [address] Polychromasia Moderate Normal [facility] Comment on above: Performed By: #### S CAN CBC, CK, HS TROP, BNP, CMP #### [address] RBC (Bld) [#/Vol] 7.16 10*6/uL High 3.90-5.60 [facility] Comment on above: Performed By: #### S CAN CBC, CK, HS TROP, BNP, CMP #### [address] WBC (Bld) [#/Vol] 12.7 10*3/uL High 4.1-10.5 [facility] Comment on above: Performed By: #### S CAN CBC, CK, HS TROP, BNP, CMP #### [address] WBC (Bld) [#/Vol] 13.8 10*3/uL High 4.1-10.5 [facility] Comment on above: Performed By: #### S CAN CBC, CK, HS TROP, BNP, CMP #### [address] Serum or plasma albumin/glob ulin mass ratioOrdered By: Pranay Bai on 10-04-2024 Albumin/Globulin [Mass ratio] Serum or plasma albumin/globulin mass ratio [facility] [facility] Serum or plasma anion gap de terminationOrdered By: Pranay Bai on 10-04-2024 Anion gap [Moles/Vol] Serum or plasma anion gap determination High 6.0-15.0 [facility] Sodium [Moles/volume] in Ser um or PlasmaOrdered By: Pranay Bai on 10-04-2024 Sodium [Moles/Vol] Sodium [Moles/volume] in Serum or Plasma 136-145 [facility] Troponin I High Sensitivityo n 10-04-2024 Troponin I High Sensitivity 27 High 0-20 [facility] Comment on above: Result Comment: The Troponin units of report have been changed to meet the Chest Pain Accreditation requirement, element EC5.M1l2. Troponin units are changed from pg/ml to ng/L. Also, the decimal is removed and results are in whole numbers. PERFORMED BY: [place] [address] PATHOLOGIST POWERHOUSE HELPER NARESH VERA M.D. Performed By: #### S CAN CBC, CK, HS TROP, BNP, CMP #### [address] Troponin I.cardiac [Mass/vol ume] in Serum or Plasma by Detection limit <= 0.01 ng/Ordered By: Pranay Bai on 10-04-2024 Troponin I.cardiac DL <= 0.01 ng/mL [Mass/Vol] Troponin I.cardiac [Mass/volume] in Serum or Plasma by Detection limit <= 0.01 ng/ High 0-20 [facility] Comment on above: The Troponin units o f report have been changed to meet the Chest Pain Accreditation requirement, element EC5.M1l2. Troponin units are changed from pg/ml to ng/L. Also, the decimal is removed and results are in whole numbers. Urea nitrogen [Mass/volume] in Serum or PlasmaOrdered By: Pranay Bai on 10-04-2024 Urea nitrogen [Mass/Vol] Urea nitrogen [Mass/volume] in Serum or Plasma 7-25 [facility] Venous Blood GasOrdered By: Pranay Bai on 10-04-2024 CO2 [Moles/Vol] 26.6 mmol/L Normal 24.0-29.0 [facility] Comment on above: Performed By: #### G LULS #### Point of Care testing , HCO3 (Bld) [Moles/Vol] 25.2 mmol/L Normal 23.0-29.0 [facility] Comment on above: Performed By: #### G LULS #### Point of Care testing , Venous Blood Gason Respiratory Critical Normal [facility] Comment on above: Result Comment: Crit ical Value called on: 10/04/2024 at 00:11 PERFORMED BY: [facility] [address] [place] [address] PATHOLOGIST POWERHOUSE HELPER NARESH VERA M.D. Performed By: #### G LULS #### Point of Care testing , VBG Base Excess -1.5 mmol/L Normal -3.0-3.0 [facility] Comment on above: Performed By: #### G LULS #### Point of Care testing , VBG Draw Site Venous Normal [facility] Comment on above: Performed By: #### G LULS #### Point of Care testing , VBG Frac Inspired O2 32 % Normal [facility] Comment on above: Performed By: #### G LULS #### Point of Care testing , VBG Liter Flow 3 Normal [facility] Comment on above: Performed By: #### G LULS #### Point of Care testing , VBG O2 Content 4.9 mmol/L Low 6.6-9.7 [facility] Comment on above: Performed By: #### G LULS #### Point of Care testing , VBG Oxygen Saturation 43.8 % Off scale low 73.0-76.0 [facility] Comment on above: Performed By: #### G LULS #### Point of Care testing , VBG PCO2 48.8 mm[Hg] Normal 38.0-50.0 [facility] Comment on above: Performed By: #### G LULS #### Point of Care testing , VBG PH Venous PH 7.33 Normal 7.32-7.43 [facility] Comment on above: Performed By: #### G LULS #### Point of Care testing , VBG PO2 26.1 mm[Hg] Low 35.0-45.0 [facility] Comment on above: Performed By: #### G LULS #### Point of Care testing , WBC Auto (Bld) [#/Vol]Ordere d By: Pranay Bai on 10-04-2024 WBC (Bld) [#/Vol] Leukocytes [#/volume] in Blood by Automated count High 4.1-10.5 [facility] ECG 12 lead ECGon 10-03-2024 ECG 12 lead ECG [facility] Main [place] [id number] Electrocardiograph Report Signed Patient: Ricardo Hylton MR#: [id number] 88 : 1960 Acct:[id number] Age/Sex: 63 / M ADM Date: 10/04/24 Loc: Room: [address] [place] [address] Type: ADM IN Attending Dr: Eden Greenwood [...] QRS duration Confirmed by PRANAY BAI MD ([id number]) on 10/05/2024 4:50:26 AM Referred By: Electronically Signed By: PRANAY BAI MD Transcribed By: MUS Signed By Pranay Bai Jr, MD 0450 Normal [facility] X-ray reportOrdered By: Ludin Bateman on 10-03-2024 Study report [facility] Main [address] [address] XRay Report Signed Patient: Ricardo Hylton MR#: [id number] : 1960 Acct:[id number] Age/Sex: 63 / M ADM Date: 5 Loc: ER Room: Type: [facility] ER Attending Dr: Copies to: Pranay [...] Daryl Bateman M.D.10/03/2024 11:14 PM Dictation Location: [place] [address] Transcribed By: [facility] 10/03/242313 Dictated By: Daryl Bateman MD 10/03/242312 Signed By: 10/03/242313 [facility] Work Phone: XR chest 1V portableon 10-03 XR chest 1V portable [facility] [place] [address] XRay Report Signed Patient: Ricardo Hylton MR#: [id number] 88 : 1960 Acct:[id number] Age/Sex: 63 / M ADM Date: 10/03/24 Loc: ER Room: Type: [facility] ER Attending Dr: Copies to: Pranay [...] Daryl Bateman M.D.10/03/2024 11:14 PM Dictation Location: [facility]-- Transcribed By: [facility] 10/03/242313 Dictated By: Daryl Bateman MD 10/03/242312 Signed By: 10/03/242313 Normal [facility] Ambulatory Visit Summaryon 1 07-22-2023 Ambulatory Visit Summary Ambulatory Visit Summary RCIARDO HYLTON :1960 Visit Date:05/22/2024 Ambulatory Visit Instructions [...] PM EST With: SARAH TRIVEDI CNP Where: [address] [address]- Tuesday 1:00 PM EDT With: Where: [address] [address]- Medications What How Much When Why Instructions New empagliflozin (Jardiance 25 mg oral tablet) 1 Tablets By Mouth Once a day (in the morning) Pickup at [facility] #[id number] Unchanged albuterol-ipratropiu m (Combivent Respimat 20 mcg-100 [...] physician if questions or concerns Pharmacy Information [facility] #[id number]: [address], [place] [id number] [phone] Allergies metFORMIN (Diarrhea) Pro (more content not included)... Normal [facility] Family Medicine Office/Clini c Noteon 05-22-2024 Family [...] f/u in 3 months Ordered: A1c POC 37311 2. Anxiety (F41.9: Anxiety disorder, unspecified) Completed and reviewed the PHQ-9 score of 10 and the CANDACE-7 score of 12 Encouraged patient to contact [facility] for counseling Increase hydroxyzine 50 mg one tablet po TID prn for anxiety f/u in 4 weeks Ordered: hydrOXYzine, 50 mg = 1 tab(s), Oral, TID, PRN for anxiety, # 90 tab(s), Refills(s) 0, Pharmacy: [facility] #[id number], 177, cm, 05/22/24 15:06:00 EST, Height/Length Dosing, 107.7, kg, 05/22/24 15:06:00 EST, Weight Dosing A1c POC 42452 3. Former smoker (Z87.891: Personal history of nicotine dependence) Courage to continue is a non-smoker Ordered: A1c POC 84067 4. BMI 34.0-34.9,adult (Z68.34: Body mass index [...] control and daily exercise Ordered: A1c POC 13200 5. Exogenous obesity (E66.09: Other obesity due to excess calories) The standard range for ages 18 and older is >=18.5 and < 25 kg/m2. Your BMI today was above this range, this falls in the overweight to obese category and there are medical benefits to weight loss. We can off (more content not included)... Normal [facility] Comment on above: Result Comment: Elec tronically Signed By: SARAH TRIVEDI CNP\.mitchel\Date and Time Signed: 05/22/24 15:51 EST Provider Letteron 05-02-2024 Provider Letter Provider Letter May 02, 2024 RICARDO HYLTON [address] [place] [address] RICARDO HYLTON 1960 Dear Ricardo, We have been trying to reach you with no success. It is important that you return our call regarding your hospital discharge upon receiving this letter. Also, at the time of your call, please provide us with your current information. Thank you for your prompt attention to this matter. Sincerely, Mark Project Program Manager [phone] [facility] Pre-Visit Planningon 024 Pre-Visit Planning Pre-Visit Planning - From: Yesenia Muñoz RN To: SARAH TRIVEDI CNP; Sent: 04/23/2024 12:51:08 EDT Subject: Pre-Visit Planning Due Date/Time: 04/23/2024 12:51:00 EDT Caller Name: RICARDO HYLTON; Caller Number: H , M Stephen Mcnally, bernice in January you responded to the below [...] was 93%. 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 Patient admits to be a little more [...] Name: RICARDO HYLTON; Caller Number: Jose , Maurice Hi Sarah, *Based on your response below, can [...] feel free to contact me at extension [phone]. Thank you! Yesenia Muñoz, ARIELN, RN, CCM, CCDS, CCDS-O CDI Desk Editor [address] [address] P: [phone] F: [phone] [email or web address] [email or web address] - From: SARAH TRIVEDI CNP To: Yesenia Muñoz RN; Sent: 04/24/2024 13:57:06 EDT Subject: RE: Pre-Visit Planning Caller Name: RICARDO HYLTON; Caller Number: Jose , M Patient did not show for his appointment however, dx added to the chronic list. [facility] Pre-Visit Planning Pre-Visit Planning - From: Yesenia Muñoz RN To: SARAH TRIVEDI CNP; Sent: 04/23/2024 12:47:25 EDT Subject: Pre-Visit Planning Due Date/Time: 04/23/2024 12:47:00 EDT Caller Name: RICARDO HYLTON; Caller Number: Jose , M Stephen Mcnally, back in January [...] RN To: SARAH TRIVEDI CNP; Sent: 01/17/2024 10:02:44 EDT Subject: Pre-Visit [...] BMI of 36 on 12/29/2022. The National [place] [employer] defines obesity as morbid if [...] feel free to contact me at extension [phone]. Thank you! Yesenia Muñoz, ROWDY, RN, CCM, CCDS, CCDS-O CDI Desk Editor [place] [address] P: [phone] F: [phone] [email or web address] [email or web address] - From: SARAH TRIVEDI CNP To: Wanda BRYANT, Yesenia; Sent: 04/24/2024 13:56:56 EDT Subject: RE: Pre-Visit Planning Caller Name: RICARDO HYLTON; Caller Number: Jose , M Patient did not show for his appointment however, dx added to the chronic list. Normal [facility] CHEMISTRYOrdered By: SYSTEM SYSTEM on [...] used for this result was chemiluminescence using [employer] Access Hybritech PSA reagent. Protein [Mass/Vol] 7.3 g/dL Normal 6.0 - 7.8 gm/dL [facility] Sodium [Moles/Vol] 139 mmol/L Normal 135 - 145 mmol/L [facility] Triglyceride [Mass/Vol] 189 mg/dL High <=149mg/dL R emisol Chem Urea nitrogen [Mass/Vol] 18 mg/dL Normal 5 - 21 mg/dL [facility] Urea nitrogen/Creatinine [Mass ratio] 16 mg/mg Normal 10 - 20 [facility] CARDIAC JUSTINE 3-6on 3 CK [Catalytic activity/Vol] 49 U/L Normal 39-308 [facility] Comment on above: Performed By: #### C MP #### [facility] [address] [place] [address] [address] Jessie Lomax CK.MB [Mass/Vol] 1.93 ng/mL Normal <=3.60 [facility] Comment on above: Performed By: #### C MP #### [facility] [address] [place] [id number] Jessie Lomax HSTROP 7.8 pg/mL Normal 4.0-76.1 [facility] Comment on above: Result Comment: CUT- OFF POINTS HAVE BEEN ESTABLISHED BASED ON THE FOURTH UNIVERSAL DEFINITIONS OF MYOCARDIAL INFARCTION. THE UPPER REFERENCE LIMIT (URL) OF TROPONIN, DEFINED THE 99TH PERCENTILE OF cTnI DISTRIBUTION IN A REFERENCE POPULATION, HAS BEEN CONFIRMED THE DECISION THRESHOLD FOR PA DIAGNOSIS. Performed By: #### C MP #### [facility] [address] [place] [address] Dr. Jessie Lomax LACTATE/LACTIC ACIDon 2022 Lactate [Moles/Vol] 1.5 mmol/L Normal 0.4-2.0 [facility] Comment on above: Performed By: #### B LDCX1 #### [facility] [address] [place] [address] Dr. Jessie Lomax Lactate [Moles/Vol] 2.5 mmol/L Critically high 0.4-2.0 [facility] Comment on above: Performed By: #### B LDCX1 #### [facility] [address] [place] [address] Dr. Jessie Lomax CARDIAC JUSTINE ADMITon 023 CK [Catalytic activity/Vol] 36 U/L Critically low 39-308 [facility] Comment on above: Performed By: #### A CETON #### [facility] [address] [place] [address] Dr. Jessie Lomax CK.MB [Mass/Vol] 1.50 ng/mL Normal <=3.60 [facility] Comment on above: Performed By: #### A CETON #### [facility] [address] [place] [address] Dr. Jessie Lomax HSTROP 7.4 pg/mL Normal 4.0-76.1 [facility] Comment on above: Result Comment: CUT- OFF POINTS HAVE BEEN ESTABLISHED BASED ON THE FOURTH UNIVERSAL DEFINITIONS OF MYOCARDIAL INFARCTION. THE UPPER REFERENCE LIMIT (URL) OF TROPONIN, DEFINED THE 99TH PERCENTILE OF cTnI DISTRIBUTION IN A REFERENCE POPULATION, HAS BEEN CONFIRMED THE DECISION THRESHOLD FOR PA DIAGNOSIS. Performed By: #### A CETON #### [facility] [address] [place] [address] Dr. Jessie Lomax HERLINDA 44 ng/mL Normal 16-96 [facility] Comment on above: Performed By: #### A CETON #### [facility] [address] [place] [address] Dr. Jessie Lomax CBC AUTO DIFFon 10-03-2022 BASO # 0.1 103/ul Normal 0.0-0.1 [facility] Comment on above: Performed By: #### C BC #### [facility] [address] [place] [address] Dr. Jessie Lomax Basophils/100 WBC (Bld) 0.5 % Normal 0.2-2.0 [facility] Comment on above: Performed By: #### C BC #### [facility] [address] [place] [address] Dr. Jessie Lomax EO # 0.0 103/ul Normal 0.0-0.7 [facility] Comment on above: Performed By: #### C BC #### [facility] [address] [place] [address] Dr. Jessie Lomax Eosinophils/100 WBC (Bld) 0.2 % Critically low 0.9-7.0 [facility] Comment on above: Performed By: #### C BC #### [facility] [address] [place] [address] Dr. Jessie Lomax Erythrocyte distribution width (RBC) [Ratio] 14.6 % Normal 11.0-15.0 [facility] Comment on above: Performed By: #### C BC #### [facility] [address] [place] [address] Dr. Jessie Lomax Hematocrit (Bld) [Volume fraction] 49.6 % Normal 42.0-54.0 [facility] Comment on above: Performed By: #### C BC #### [facility] [address] [place] [address] Dr. Jessie Lomax Hemoglobin (Bld) [Mass/Vol] 16.6 g/dL Normal 14.0-18.0 [facility] Comment on above: Performed By: #### C BC #### [facility] [address] [place] [address] Dr. Jessie Lomax IG # 0.10 10e3/ul Critically high 0.00-0.03 [facility] Comment on above: Performed By: #### C BC #### [facility] [address] [place] [address] Dr. Jessie Lomax IG % 0.8 % Critically high 0.0-0.5 [facility] Comment on above: Performed By: #### C BC #### [facility] [address] [place] [address] Dr. Jessie Lomax LYMPH # 1.0 103/ul Critically low 1.2-3.8 [facility] Comment on above: Performed By: #### C BC #### [facility] [address] [place] [address] Dr. Jessie Lomax Lymphocytes/100 WBC (Bld) 8.2 % Critically low 20.5-60.0 [facility] Comment on above: Performed By: #### C BC #### [facility] [address] [place] [address] Dr. Jessie Lomax MANUAL DIFF REQ NO Normal [facility] Comment on above: Performed By: #### C BC #### [facility] [address] [place] [address] Dr. Jessie Lomax MCH (RBC) [Entitic mass] 31.0 pg Normal 25.9-34.0 [facility] Comment on above: Performed By: #### C BC #### [facility] [address] [place] [address] Dr. Jessie Lomax MCHC (RBC) [Mass/Vol] 33.5 g/dL Normal 29.9-35.2 [facility] Comment on above: Performed By: #### C BC #### [facility] [address] [place] [address] Dr. Jessie Lomax MCV (RBC) [Entitic vol] 92.5 fL Normal 80.0-94.0 [facility] Comment on above: Performed By: #### C BC #### [facility] [address] [place] [address] Dr. Jessie Lomax MONO # 0.6 103/ul Normal 0.3-0.8 [facility] Comment on above: Performed By: #### C BC #### [facility] [address] [place] [address] Dr. Jessie Lomax Monocytes/100 WBC (Bld) 4.9 % Normal 1.7-12.0 [facility] Comment on above: Performed By: #### C BC #### [facility] [address] [place] [address] Dr. Jessie Lomax NEUT # 10.5 103/ul Critically high 1.4-6.5 [facility] Comment on above: Performed By: #### C BC #### [facility] [address] [place] [address] Dr. Jessie Lomax Neutrophils/100 WBC (Bld) 85.4 % Critically high 43.0-75.0 [facility] Comment on above: Performed By: #### C BC #### [facility] [address] [place] [address] Dr. Jessie Lomax Platelet mean volume (Bld) [Entitic vol] 9.3 fL Critically low 9.5-13.5 [facility] Comment on above: Performed By: #### C BC #### [facility] [address] [place] [address] Dr. Jessie Lomax PLT 259 103/ul Normal 150-450 [facility] Comment on above: Performed By: #### C BC #### [facility] [address] [place] [address] Dr. Jessie Lomax RBC 5.36 106/ul Normal 4.70-6.10 [facility] Comment on above: Performed By: #### C BC #### [facility] [address] [place] [address] Dr. Jessie Lomax WBC 12.3 103/ul Critically high 4.0-11.0 [facility] Comment on above: Performed By: #### C BC #### [facility] [address] [place] [address] Dr. Jessie Lomax LACTATE/LACTIC ACIDon 2022 Lactate [Moles/Vol] 2.9 mmol/L Critically high 0.4-2.0 [facility] Comment on above: Performed By: #### C MP #### [facility] [address] [place] [address] Dr. Jessie Lomax PROF CHEM 8 (BAS METB)on Anion gap [Moles/Vol] 8.7 mmol/L Normal [facility] Comment on above: Performed By: #### A CETON #### [facility] [address] [address] [address] Jessie Lomax Calcium [Mass/Vol] 8.9 mg/dL Normal 8.5-10.1 [facility] Comment on above: Performed By: #### A CETON #### [facility] [address] [address] [address] Jessie Lomax Chloride [Moles/Vol] 100 mmol/L Normal 98-107 [facility] Comment on above: Performed By: #### A CETON #### [facility] [address] [address] [address] Jessie Lomax CO2 [Moles/Vol] 32.6 mmol/L Critically high 21.0-32.0 [facility] Comment on above: Performed By: #### A CETON #### [facility] [address] [address] [address] Jessie Lomax Creatinine [Mass/Vol] 1.32 mg/dL Critically high 0.70-1.30 [facility] Comment on above: Performed By: #### A CETON #### [facility] [address] [address] [address] Jessie Lomax EGFR-AF ERITREAN >60 Normal >=60 [facility] Comment on above: Performed By: #### A CETON #### [facility] [address] [address] [address] Jessie Lomax EGFR-NON AF ERITREAN 55 mL/min/1.73m2 Critically low >=60 [facility] Comment on above: Performed By: #### A CETON #### [facility] [address] [address] [address] Jessie Lomax Glucose [Mass/Vol] 360 mg/dL Critically high 74-106 [facility] Comment on above: Performed By: #### A CETON #### [facility] [address] [address] [address] Jessie Lomax Potassium [Moles/Vol] 4.3 mmol/L Normal 3.5-5.1 [facility] Comment on above: Performed By: #### A CETON #### [facility] [address] [place] [address] Dr. Jessie Lomax Sodium [Moles/Vol] 137 mmol/L Normal 136-145 [facility] Comment on above: Performed By: #### A CETON #### [facility] [address] [place] [address] Dr. Jessie Lomax Urea nitrogen [Mass/Vol] 20.0 mg/dL Critically high 7.0-18.0 [facility] Comment on above: Performed By: #### A CETON #### [facility] [address] [place] [address] Dr. Jessie Lomax Urea nitrogen/Creatinine [Mass ratio] 15.2 mg/mg Normal [facility] Comment on above: Performed By: #### A CETON #### [facility] [address] [place] [address] Dr. Jessie Lomax XR CHEST 1 Von [...] SOLA SHELL Date: 2022-10-03 20:56 Normal [facility] ER URINE PROFILEon 3 Bilirubin Ql (U) Negative Normal NEGATIVE [facility] Comment on above: Performed By: #### T TYLER #### [facility] [address] [place] [address] Dr. Jessie Lomax Clarity (U) CLEAR Normal CLEAR [facility] Comment on above: Performed By: #### T TYLER #### [facility] [address] [place] [address] Dr. Jessie Lomax Color (U) LT. YELLOW Normal YELLOW [facility] Comment on above: Performed By: #### T TYLER #### [facility] [address] [address] [address] Jessie BROOKS A micrscopic examination will be performed if indicated. Normal [facility] Comment on above: Performed By: #### T TYLER #### [facility] [address] [place] [address] Dr. Jessie Lomax Glucose Ql (U) >1000 Abnormal NEGATIVE [facility] Comment on above: Performed By: #### T TYLER #### [facility] [address] [address] [address] Jessie Lomax Hemoglobin Ql (U) Negative Normal NEGATIVE [facility] Comment on above: Performed By: #### T TYLER #### [facility] [address] [place] [address] Dr. Jessie Lomax Ketones Ql (U) Negative Normal NEGATIVE [facility] Comment on above: Performed By: #### T TYLER #### [facility] [address] [place] [address] Dr. Jessie Lomax LEUKOCYTES Negative Normal NEGATIVE [facility] Comment on above: Performed By: #### T TYLER #### [facility] [address] [place] [address] Dr. Jessie Lomax Nitrite Ql (U) Negative Normal NEGATIVE [facility] Comment on above: Performed By: #### T TYLER #### [facility] [address] [place] [address] Dr. Jessie Lomax pH (U) 6.0 [pH] Normal 5-9 [facility] Comment on above: Performed By: #### T TYLER #### [facility] [address] [address] [address] Jessie Lomax SPEC GRAVITY <=1.005 Abnormal 1.005-<=1.02 5 [facility] Comment on above: Performed By: #### T TYLER #### [facility] [address] [place] [address] Dr. Jessie Lomax UA PROTEIN Negative Normal NEGATIVE/ TRACE [facility] Comment on above: Performed By: #### T TYLER #### [facility] [address] [place] [address] Dr. Jessie Lomax UR MICRO IND NOT INDICATED Normal [facility] Comment on above: Performed By: #### T TYLER #### [facility] [address] [place] [address] Dr. Jessie Lomax Urobilinogen Qn (U) 0.2 {Angelique'U}/dL Normal 0.2 - 1. 0 [facility] Comment on above: Performed By: #### T TYLER #### [facility] [address] [place] [address] Dr. Jessie Lomax CBC AUTO DIFFon 08-30-2022 BASO # 0.0 103/ul Normal 0.0-0.1 [facility] Comment on above: Performed By: #### C BC #### [facility] [address] [place] [address] Dr. Jessie Lomax Basophils/100 WBC (Bld) 0.1 % Critically low 0.2-2.0 [facility] Comment on above: Performed By: #### C BC #### [facility] [address] [place] [address] Dr. Jessie Lomax EO # 0.0 103/ul Normal 0.0-0.7 [facility] Comment on above: Performed By: #### C BC #### [facility] [address] [place] [address] Dr. Jessie Lomax Eosinophils/100 WBC (Bld) 0.1 % Critically low 0.9-7.0 [facility] Comment on above: Performed By: #### C BC #### [facility] [address] [place] [address] Dr. Jessie Lomax Erythrocyte distribution width (RBC) [Ratio] 13.6 % Normal 11.0-15.0 [facility] Comment on above: Performed By: #### C BC #### [facility] [address] [place] [address] Dr. Jessie Lomax Hematocrit (Bld) [Volume fraction] 46.3 % Normal 42.0-54.0 [facility] Comment on above: Performed By: #### C BC #### [facility] [address] [address] [address] Jessie Lomax Hemoglobin (Bld) [Mass/Vol] 15.4 g/dL Normal 14.0-18.0 [facility] Comment on above: Performed By: #### C BC #### [facility] [address] [address] [address] Jessie Lomax IG # 0.08 10e3/ul Critically high 0.00-0.03 [facility] Comment on above: Performed By: #### C BC #### [facility] [address] [address] [address] Jessie Lomax IG % 0.6 % Critically high 0.0-0.5 [facility] Comment on above: Performed By: #### C BC #### [facility] [address] [address] [address] Jessie Lomax LYMPH # 0.8 103/ul Critically low 1.2-3.8 [facility] Comment on above: Performed By: #### C BC #### [facility] [address] [address] [address] Jessie Lomax Lymphocytes/100 WBC (Bld) 5.7 % Critically low 20.5-60.0 [facility] Comment on above: Performed By: #### C BC #### [facility] [address] [address] [address] Jessie Lomax MANUAL DIFF REQ NO Normal [facility] Comment on above: Performed By: #### C BC #### [facility] [address] [address] [address] Jessie Lomax MCH (RBC) [Entitic mass] 30.2 pg Normal 25.9-34.0 [facility] Comment on above: Performed By: #### C BC #### [facility] [address] [address] [address] Jessie Lomax MCHC (RBC) [Mass/Vol] 33.3 g/dL Normal 29.9-35.2 [facility] Comment on above: Performed By: #### C BC #### [facility] [address] [address] [address] Jessie Lomax MCV (RBC) [Entitic vol] 90.8 fL Normal 80.0-94.0 [facility] Comment on above: Performed By: #### C BC #### [facility] [address] [address] [address] Jessie Lomax MONO # 0.4 103/ul Normal 0.3-0.8 [facility] Comment on above: Performed By: #### C BC #### [facility] [address] [place] [address] Dr. Jessie Lomax Monocytes/100 WBC (Bld) 2.9 % Normal 1.7-12.0 [facility] Comment on above: Performed By: #### C BC #### [facility] [address] [place] [address] Dr. Jessie Lomax NEUT # 12.3 103/ul Critically high 1.4-6.5 [facility] Comment on above: Performed By: #### C BC #### [facility] [address] [place] [address] Dr. Jessie Lomax Neutrophils/100 WBC (Bld) 90.6 % Critically high 43.0-75.0 [facility] Comment on above: Performed By: #### C BC #### [facility] [address] [place] [address] Dr. Jessie Lomax Platelet mean volume (Bld) [Entitic vol] 9.3 fL Critically low 9.5-13.5 [facility] Comment on above: Performed By: #### C BC #### [facility] [address] [place] [address] Dr. Jessie Lomax PLT 389 103/ul Normal 150-450 [facility] Comment on above: Performed By: #### C BC #### [facility] [address] [place] [address] Dr. Jessie Lomax RBC 5.10 106/ul Normal 4.70-6.10 [facility] Comment on above: Performed By: #### C BC #### [facility] [address] [address] [address] Jessie Lomax WBC 13.6 103/ul Critically high 4.0-11.0 [facility] Comment on above: Performed By: #### C BC #### [facility] [address] [address] [address] Jessie Lomax POINT OF CARE GLUCOSEon 08-18 Glucose [Mass/Vol] 283 mg/dL Critically high 74-106 [facility] Comment on above: Performed By: #### C BC #### [facility] [address] [place] [address] Dr. Jessie Lomax Glucose [Mass/Vol] 315 mg/dL Critically high 74-106 [facility] Comment on above: Performed By: #### T TYLER #### [facility] [address] [place] [address] Dr. Jessie Lomax PROF 14(COMP METB)on 023 Albumin [Mass/Vol] 3.7 g/dL Normal 3.4-5.0 [facility] Comment on above: Performed By: #### C MP #### [facility] [address] [place] [address] Dr. Jessie Lomax Albumin/Globulin [Mass ratio] 1.0 {ratio} Normal [facility] Comment on above: Performed By: #### C MP #### [facility] [address] [place] [address] Dr. Jessie Lomax ALP [Catalytic activity/Vol] 94 U/L Normal 46-116 [facility] Comment on above: Performed By: #### C MP #### [facility] [address] [place] [address] Dr. Jessie Lomax ALT [Catalytic activity/Vol] 23 U/L Normal 16-63 [facility] Comment on above: Performed By: #### C MP #### [facility] [address] [place] [address] Dr. Jessie Lomax Anion gap [Moles/Vol] 13.6 mmol/L Normal [facility] Comment on above: Performed By: #### C MP #### [facility] [address] [address] [address] Jessie Lomax AST [Catalytic activity/Vol] 9 U/L Critically low 15-37 [facility] Comment on above: Performed By: #### C MP #### [facility] [address] [address] [address] Jessie Lomax Bilirubin [Mass/Vol] 0.3 mg/dL Normal 0.2-1.0 [facility] Comment on above: Performed By: #### C MP #### [facility] [address] [address] [address] Jessie Lomax Calcium [Mass/Vol] 9.8 mg/dL Normal 8.5-10.1 [facility] Comment on above: Performed By: #### C MP #### [facility] [address] [place] [address] Dr. Jessie Lomax Chloride [Moles/Vol] 99 mmol/L Normal 98-107 [facility] Comment on above: Performed By: #### C MP #### [facility] [address] [address] [address] Jessie Lomax CO2 [Moles/Vol] 29.2 mmol/L Normal 21.0-32.0 [facility] Comment on above: Performed By: #### C MP #### [facility] [address] [place] [address] Dr. Jessie Lomax Creatinine [Mass/Vol] 1.17 mg/dL Normal 0.70-1.30 [facility] Comment on above: Performed By: #### C MP #### [facility] [address] [place] [address] Dr. Jessie Lomax EGFR-AF ERITREAN >60 Normal >=60 [facility] Comment on above: Performed By: #### C MP #### [facility] [address] [address] [address] Jessie Lomax EGFR-NON AF ERITREAN >60 Normal >=60 [facility] Comment on above: Performed By: #### C MP #### [facility] [address] [place] [address] Dr. Jessie Lomax Globulin (S) [Mass/Vol] 3.6 g/dL Normal [facility] Comment on above: Performed By: #### C MP #### [facility] [address] [address] [address] Jessie Lomax Glucose [Mass/Vol] 259 mg/dL Critically high 74-106 [facility] Comment on above: Performed By: #### C MP #### [facility] [address] [address] [address] Jessie Lomax Potassium [Moles/Vol] 3.8 mmol/L Normal 3.5-5.1 [facility] Comment on above: Performed By: #### C MP #### [facility] [address] [place] [address] Dr. Jessie Lomax Protein [Mass/Vol] 7.3 g/dL Normal 6.4-8.2 [facility] Comment on above: Performed By: #### C MP #### [facility] [address] [place] [address] Dr. Jessie Lomax Sodium [Moles/Vol] 138 mmol/L Normal 136-145 [facility] Comment on above: Performed By: #### C MP #### [facility] [address] [place] [address] Dr. Jessie Lomax Urea nitrogen [Mass/Vol] 21.0 mg/dL Critically high 7.0-18.0 [facility] Comment on above: Performed By: #### C MP #### [facility] [address] [address] [address] Jessie Lomax Urea nitrogen/Creatinine [Mass ratio] 17.9 mg/mg [facility] Comment on above: Performed By: #### C MP #### [facility] [address] [place], [place] [id number] Dr. Jessie Lomax BLOOD GASES BTYon 08-29-2022 02 MODE HAND HELD NEB Normal [facility] Comment on above: Performed By: #### C MP #### [facility] [address] [place] [address] Dr. Jessie Lomax ALLENS TEST Positive [facility] Comment on above: Performed By: #### C MP #### [facility] [address] [address] [address] Jessie Lomax Base excess Calc (Bld) [Moles/Vol] 2.1 mmol/L Critically high -2.0-2.0 [facility] Comment on above: Performed By: #### C MP #### [facility] [address] [address] [address] Jessie Lomax BIPAP PRESSURE [facility] Comment on above: Performed By: #### C MP #### [facility] [address] [address] [address] Jessie Lomax CPAP [facility] Comment on above: Performed By: #### C MP #### [facility] [address] [place] [address] Dr. Jessie Lomax FIO2 [facility] Comment on above: Performed By: #### C MP #### [facility] [address] [address] [address] Jessie Lomax HCO3 (Bld) [Moles/Vol] 27.7 mmol/L Critically high 22.0-26 .0 [facility] Comment on above: Performed By: #### C MP #### [facility] [address] [place] [address] Dr. Jessie Lomax LPM 6 [facility] Comment on above: Performed By: #### C MP #### [facility] [address] [address] [address] Jessie Lomax MINUTE VOLUME Normal [facility] Comment on above: Performed By: #### C MP #### [facility] [address] [address] [address] Jessie Lomax Oxygen (Bld) [Partial pressure] 90.6 mm[Hg] Normal 80.0-100.0 [facility] Comment on above: Performed By: #### C MP #### [facility] [address] [place] [address] Dr. Jessie Lomax Oxygen saturation in Blood 95.5 % Normal 95.0-100.0 [facility] Comment on above: Performed By: #### C MP #### [facility] [address] [address] [address] Jessie Lomax PCO2 49.7 mmHg Critically high 35.0-45.0 [facility] Comment on above: Performed By: #### C MP #### [facility] [address] [address] [address] Jessie Lomax PEEP [facility] Comment on above: Performed By: #### C MP #### [facility] [address] [address] [address] Jessie Lomax pH (Bld) 7.354 [pH] Normal 7.350-7.450 [facility] Comment on above: Performed By: #### C MP #### [facility] [address] [address] [address] Jessie Lomax PIP [facility] Comment on above: Performed By: #### C MP #### [facility] [address] [address] [address] Jessie Lomax PS [facility] Comment on above: Performed By: #### C MP #### [facility] [address] [address] [address] Jessie Lomax PUNCTURE SITE RR [facility] Comment on above: Performed By: #### C MP #### [facility] [address] [place] [address] Dr. Jessie Lomax RATE [facility] Comment on above: Performed By: #### C MP #### [facility] [address] [place] [address] Dr. Jessie Lomax VENT MODE [facility] Comment on above: Performed By: #### C MP #### [facility] [address] [place] [address] Dr. Jessie Lomax [place] [facility] Comment on above: Performed By: #### C MP #### [facility] [address] [place] [address] Dr. Jessie Lomax BNPon 08-29-2022 Natriuretic peptide B (Bld) [Mass/Vol] 130.0 pg/mL Normal <=900.0 [facility] Comment on above: Performed By: #### B [id number] #### [facility] [address] [place] [address] Dr. Jessie Lomax CARDIAC JUSTINE ADMITon 023 CK [Catalytic activity/Vol] 41 U/L Normal 39-308 [facility] Comment on above: Performed By: #### B [id number] #### [facility] [address] [place] [address] Dr. Jessie Lomax CK.MB [Mass/Vol] 1.87 ng/mL Normal <=3.60 [facility] Comment on above: Performed By: #### B [id number] #### [facility] [address] [place] [address] Dr. Jessie Lomax HSTROP 27.3 pg/mL Normal 4.0-76.1 [facility] Comment on above: Result Comment: CUT- OFF POINTS HAVE BEEN ESTABLISHED BASED ON THE FOURTH UNIVERSAL DEFINITIONS OF MYOCARDIAL INFARCTION. THE UPPER REFERENCE LIMIT (URL) OF TROPONIN, DEFINED THE 99TH PERCENTILE OF cTnI DISTRIBUTION IN A REFERENCE POPULATION, HAS BEEN CONFIRMED THE DECISION THRESHOLD FOR PA DIAGNOSIS. Performed By: #### B [id number] #### [facility] [address] [place] [address] Dr. Jessie Lomax HERLINDA 36 ng/mL Normal 16-96 [facility] Comment on above: Performed By: #### B [id number] #### [facility] [address] [place] [address] Dr. Jessie Lomax CBC AUTO DIFFon 08-29-2022 BASO # 0.1 103/ul Normal 0.0-0.1 [facility] Comment on above: Performed By: #### C BC #### [facility] [address] [place] [address] Dr. Jessie Lomax Basophils/100 WBC (Bld) 0.7 % Normal 0.2-2.0 [facility] Comment on above: Performed By: #### C BC #### [facility] [address] [place] [address] Dr. Jessie Lomax EO # 0.1 103/ul Normal 0.0-0.7 [facility] Comment on above: Performed By: #### C BC #### [facility] [address] [place] [address] Dr. Jessie Lomax Eosinophils/100 WBC (Bld) 0.8 % Critically low 0.9-7.0 [facility] Comment on above: Performed By: #### C BC #### [facility] [address] [place] [address] Dr. Jessie Lomax Erythrocyte distribution width (RBC) [Ratio] 13.6 % Normal 11.0-15.0 [facility] Comment on above: Performed By: #### C BC #### [facility] [address] [place] [address] Dr. Jessie Lomax Hematocrit (Bld) [Volume fraction] 51.6 % Normal 42.0-54.0 [facility] Comment on above: Performed By: #### C BC #### [facility] [address] [place] [address] Dr. Jessie Lomax Hemoglobin (Bld) [Mass/Vol] 17.1 g/dL Normal 14.0-18.0 [facility] Comment on above: Performed By: #### C BC #### [facility] [address] [place] [address] Dr. Jessie Lomax IG # 0.05 10e3/ul Critically high 0.00-0.03 [facility] Comment on above: Performed By: #### C BC #### [facility] [address] [place] [address] Dr. Jessie Lomax IG % 0.5 % Normal 0.0-0.5 [facility] Comment on above: Performed By: #### C BC #### [facility] [address] [place] [address] Dr. Jessie Lomax LYMPH # 2.1 103/ul Normal 1.2-3.8 [facility] Comment on above: Performed By: #### C BC #### [facility] [address] [place] [address] Dr. Jessie Lomax Lymphocytes/100 WBC (Bld) 20.9 % Normal 20.5-60.0 [facility] Comment on above: Performed By: #### C BC #### [facility] [address] [place] [address] Dr. Jessie Lomax MANUAL DIFF REQ NO Normal [facility] Comment on above: Performed By: #### C BC #### [facility] [address] [place] [address] Dr. Jessie Lomax MCH (RBC) [Entitic mass] 30.7 pg Normal 25.9-34.0 [facility] Comment on above: Performed By: #### C BC #### [facility] [address] [place] [address] Dr. Jessie Lomax MCHC (RBC) [Mass/Vol] 33.1 g/dL Normal 29.9-35.2 [facility] Comment on above: Performed By: #### C BC #### [facility] [address] [place] [address] Dr. Jessie Lomax MCV (RBC) [Entitic vol] 92.6 fL Normal 80.0-94.0 [facility] Comment on above: Performed By: #### C BC #### [facility] [address] [place] [address] Dr. Jessie Lomax MONO # 1.0 103/ul Critically high 0.3-0.8 [facility] Comment on above: Performed By: #### C BC #### [facility] [address] [place] [address] Dr. Jessie Lomax Monocytes/100 WBC (Bld) 9.5 % Normal 1.7-12.0 [facility] Comment on above: Performed By: #### C BC #### [facility] [address] [place] [address] Dr. Jessie Lomax NEUT # 6.7 103/ul Critically high 1.4-6.5 [facility] Comment on above: Performed By: #### C BC #### [facility] [address] [place] [address] Dr. Jessie Lomax Neutrophils/100 WBC (Bld) 67.6 % Normal 43.0-75.0 [facility] Comment on above: Performed By: #### C BC #### [facility] [address] [place] [address] Dr. Jessie Lomax Platelet mean volume (Bld) [Entitic vol] 9.5 fL Normal 9.5-13.5 [facility] Comment on above: Performed By: #### C BC #### [facility] [address] [place] [address] Dr. Jessie Lomax PLT 407 103/ul Normal 150-450 [facility] Comment on above: Performed By: #### C BC #### [facility] [address] [place] [address] Dr. Jessie Lomax RBC 5.57 106/ul Normal 4.70-6.10 [facility] Comment on above: Performed By: #### C BC #### [facility] [address] [place] [address] Dr. Jessie Lomax WBC 10.0 103/ul Normal 4.0-11.0 [facility] Comment on above: Performed By: #### C BC #### [facility] [address] [place] [address] Dr. Jessie Lomax CULTURE BLOODon 08-29-2022 Microscopic examination of blood, culture Culture Observations: NO GROWTH AT 5 DAYS. Normal [facility] Comment on above: Performed By: #### C MP #### [facility] [address] [place] [address] Dr. Jessie Lomax Microscopic examination of blood, culture Culture Observations: NO GROWTH AT 5 DAYS. Normal [facility] Comment on above: Performed By: #### B [id number] #### [facility] [address] [place] [address] Dr. Jessie Lomax Covid-19 PCR ([facility])on 08-18 SARS-CoV-2 (COVID-19) RNA YOLANDA+probe Ql (Unsp spec) Not detected Normal NOT DETECTED [facility] Comment on above: Result Comment: When [...] for this test is supported by the [employer]'s declaration that [...] used). Performed By: #### B [id number] #### [facility] [address] [place] [address] Dr. Jessie Lomax ER URINE PROFILEon 3 Bilirubin Ql (U) Negative Normal NEGATIVE [facility] Comment on above: Performed By: #### A CETON #### [facility] [address] [place] [address] Dr. Jessie Lomax Clarity (U) CLEAR Normal CLEAR [facility] Comment on above: Performed By: #### A CETON #### [facility] [address] [place] [address] Dr. Jessie Lomax Color (U) YELLOW Normal YELLOW [facility] Comment on above: Performed By: #### A CETON #### [facility] [address] [place] [address] Dr. Jessie Lomax ERURIVASD A micrscopic examination will be performed if indicated. Normal [facility] Comment on above: Performed By: #### A CETON #### [facility] [address] [place] [address] Dr. Jessie Lomax Glucose Ql (U) 500 mg/dl Abnormal NEGATIVE [facility] Comment on above: Performed By: #### A CETON #### [facility] [address] [place] [address] Dr. Jessie Lomax Hemoglobin Ql (U) Negative Normal NEGATIVE [facility] Comment on above: Performed By: #### A CETON #### [facility] [address] [place] [address] Dr. Jessie Lomax Ketones Ql (U) TRACE Abnormal NEGATIVE [facility] Comment on above: Performed By: #### A CETON #### [facility] [facility] [address] [place] [address] Dr. Jessie Lomax LEUKOCYTES Negative Normal NEGATIVE [facility] Comment on above: Performed By: #### A CETON #### [facility] [address] [place] [address] Dr. Jessie Lomax Nitrite Ql (U) Negative Normal NEGATIVE [facility] Comment on above: Performed By: #### A CETON #### [facility] [address] [place] [address] Dr. Jessie Lomax pH (U) 5.5 [pH] Normal 5-9 [facility] Comment on above: Performed By: #### A CETON #### [facility] [address] [place] [address] Dr. Jessie Lomax SPEC GRAVITY >=1.030 Abnormal 1.005-<=1.[address] [place] [address] Comment on above: Performed By: #### A CETON #### [facility] [address] [place] [address] Dr. Jessie Lomax UA PROTEIN Negative Normal NEGATIVE/ TRACE [facility] Comment on above: Performed By: #### A CETON #### [facility] [address] [place] [address] Dr. Jessie Lomax UR MICRO IND NOT INDICATED Normal [facility] Comment on above: Performed By: #### A CETON #### [facility] [address] [place] [address] Dr. Jessie Lomax Urobilinogen Qn (U) 0.2 {Angelique'U}/dL Normal 0.2 - 1. 0 [facility] Comment on above: Performed By: #### A CETON #### [facility] [address] [place] [address] Dr. Jessie Lomax LACTATE/LACTIC ACIDon 2022 Lactate [Moles/Vol] 1.6 mmol/L Normal 0.4-1.9 [facility] Comment on above: Performed By: #### L ACT #### [facility] [address] [place] [address] Dr. Jessie Lomax POINT OF CARE GLUCOSEon 08-18 Glucose [Mass/Vol] 330 mg/dL Critically high 74-106 [facility] Comment on above: Performed By: #### A CETON #### [facility] [address] [place] [address] Dr. Jessie Lomax Glucose [Mass/Vol] 284 mg/dL Critically high 74-106 [facility] Comment on above: Performed By: #### C BC #### [facility] [address] [place] [address] Dr. Jessie Lomax Glucose [Mass/Vol] 379 mg/dL Critically high -106 [facility] Comment on above: Performed By: #### B [id number] #### [facility] [address] [place] [address] Dr. Jessie Lomax Glucose [Mass/Vol] 276 mg/dL Critically high -106 [facility] Comment on above: Performed By: #### T TYLER #### [facility] [address] [place] [address] Dr. Jessie Lomax PROF 14(COMP METB)on 023 Albumin [Mass/Vol] 3.8 g/dL Normal 3.4-5.0 [facility] Comment on above: Performed By: #### B [id number] #### [facility] [address] [place] [address] Dr. Jessie Lomax Albumin/Globulin [Mass ratio] 1.0 {ratio} Normal [facility] Comment on above: Performed By: #### B [id number] #### [facility] [address] [place] [address] Dr. Jessie Lomax ALP [Catalytic activity/Vol] 106 U/L Normal 46-116 [facility] Comment on above: Performed By: #### B [id number] #### [facility] [address] [place] [address] Dr. Jessie Lomax ALT [Catalytic activity/Vol] 27 U/L Normal 16-63 [facility] Comment on above: Performed By: #### B [id number] #### [facility] [address] [place] [address] Dr. Jessie Lomax Anion gap [Moles/Vol] 12.0 mmol/L Normal [facility] Comment on above: Performed By: #### B [id number] #### [facility] [address] [place] [address] Dr. Jessie Lomax AST [Catalytic activity/Vol] 15 U/L Normal 15-37 [facility] Comment on above: Performed By: #### B [id number] #### [facility] [address] [place] [address] Dr. Jessie Lomax Bilirubin [Mass/Vol] 0.3 mg/dL Normal 0.2-1.0 [facility] Comment on above: Performed By: #### B [id number] #### [facility] [address] [place] [address] Dr. Jessie Lomax Calcium [Mass/Vol] 10.0 mg/dL Normal 8.5-10.1 [facility] Comment on above: Performed By: #### B [id number] #### [facility] [address] [place] [address] Dr. Jessie Lomax Chloride [Moles/Vol] 101 mmol/L Normal 98-107 [facility] Comment on above: Performed By: #### B [id number] #### [facility] [address] [place] [address] Dr. Jessie Lomax CO2 [Moles/Vol] 32.4 mmol/L Critically high 21.0-32.0 [facility] Comment on above: Performed By: #### B [id number] #### [facility] [address] [place] [address] Dr. Jessie Lomax Creatinine [Mass/Vol] 1.14 mg/dL Normal 0.70-1.30 [facility] Comment on above: Performed By: #### B [id number] #### [facility] [address] [place] [address] Dr. Jessie Lomax EGFR-AF ERITREAN >60 Normal >=60 [facility] Comment on above: Performed By: #### B [id number] #### [facility] [address] [place] [address] Dr. Jessie Lomax EGFR-NON AF ERITREAN >60 Normal >=60 [facility] Comment on above: Performed By: #### B [id number] #### [facility] [address] [place] [address] Dr. Jessie Lomax Globulin (S) [Mass/Vol] 3.7 g/dL Normal [facility] Comment on above: Performed By: #### B [id number] #### [facility] [address] [place] [address] Dr. Jessie Lomax Glucose [Mass/Vol] 204 mg/dL Critically high 74-106 [facility] Comment on above: Performed By: #### B [id number] #### [facility] [address] [place] [address] Dr. Jessie Lomax Potassium [Moles/Vol] 4.4 mmol/L Normal 3.5-5.1 [facility] Comment on above: Performed By: #### B [id number] #### [facility] [address] [place] [address] Dr. Jessie Lomax Protein [Mass/Vol] 7.5 g/dL Normal 6.4-8.2 [facility] Comment on above: Performed By: #### B [id number] #### [facility] [address] [place] [address] Dr. Jessie Lomax Sodium [Moles/Vol] 141 mmol/L Normal 136-145 [facility] Comment on above: Performed By: #### B [id number] #### [facility] [address] [place] [address] Dr. Jessie Lomax Urea nitrogen [Mass/Vol] 23.0 mg/dL Critically high 7.0-18.0 [facility] Comment on above: Performed By: #### B [id number] #### [facility] [address] [place] [address] Dr. Jessie Lomax Urea nitrogen/Creatinine [Mass ratio] 20.2 mg/mg Normal [facility] Comment on above: Performed By: #### B [id number] #### [facility] [address] [address] [address] Jessie Lomax THEOPHYLLINEon 08-29-2022 THEOPHYLLINE <2.0 Critically low 10.0-20.0 [facility] Comment on above: Performed By: #### B [id number] #### [facility] [address] [address] [address] Jessie Lomax XR CHEST 1 Von [...] YADIRA BALLESTEROS Date: 2022-08-29 02:03 Normal [facility] ACETONE SERUMon 08-17-2022 ACETONE Negative Normal NEGATIVE [facility] Comment on above: Performed By: #### A CETON #### [facility] [address] [place] [address] Dr. Jessie Lomax BNPon 08-17-2022 Natriuretic peptide B (Bld) [Mass/Vol] 294.0 pg/mL Normal <=900.0 [facility] Comment on above: Performed By: #### A CETON #### [facility] [address] [place] [address] Dr. Jessie Lomax CBC AUTO DIFFon 08-17-2022 BASO # 0.1 103/ul Normal 0.0-0.1 [facility] Comment on above: Performed By: #### C BC #### [facility] [address] [place] [address] Dr. Jessie Lomax Basophils/100 WBC (Bld) 0.7 % Normal 0.2-2.0 [facility] Comment on above: Performed By: #### C BC #### [facility] [address] [place] [address] Dr. Jessie Lomax EO # 0.1 103/ul Normal 0.0-0.7 [facility] Comment on above: Performed By: #### C BC #### [facility] [address] [place] [address] Dr. Jessie Lomax Eosinophils/100 WBC (Bld) 0.9 % Normal 0.9-7.0 [facility] Comment on above: Performed By: #### C BC #### [facility] [address] [place] [address] Dr. Jessie Lomax Erythrocyte distribution width (RBC) [Ratio] 13.4 % Normal 11.0-15.0 [facility] Comment on above: Performed By: #### C BC #### [facility] [address] [place] [address] Dr. Jessie Lomax Hematocrit (Bld) [Volume fraction] 43.2 % Normal 42.0-54.0 [facility] Comment on above: Performed By: #### C BC #### [facility] [address] [place] [address] Dr. Jessie Lomax Hemoglobin (Bld) [Mass/Vol] 14.5 g/dL Normal 14.0-18.0 [facility] Comment on above: Performed By: #### C BC #### [facility] [address] [place] [address] Dr. Jessie Lomax IG # 0.04 10e3/ul Critically high 0.00-0.03 [facility] Comment on above: Performed By: #### C BC #### [facility] [address] [place] [address] Dr. Jessie Lomax IG % 0.5 % Normal 0.0-0.5 [facility] Comment on above: Performed By: #### C BC #### [facility] [address] [address] [address] Jessie Lomax LYMPH # 1.9 103/ul Normal 1.2-3.8 [facility] Comment on above: Performed By: #### C BC #### [facility] [address] [address] [address] Jessie Lomax Lymphocytes/100 WBC (Bld) 22.1 % Normal 20.5-60.0 [facility] Comment on above: Performed By: #### C BC #### [facility] [address] [place] [address] Dr. Jessie Lomax MANUAL DIFF REQ NO Normal [facility] Comment on above: Performed By: #### C BC #### [facility] [address] [place] [address] Dr. Jessie Lomax MCH (RBC) [Entitic mass] 30.7 pg Normal 25.9-34.0 [facility] Comment on above: Performed By: #### C BC #### [facility] [address] [place] [address] Dr. Jessie Lomax MCHC (RBC) [Mass/Vol] 33.6 g/dL Normal 29.9-35.2 [facility] Comment on above: Performed By: #### C BC #### [facility] [address] [place] [address] Dr. Jessie Lomax MCV (RBC) [Entitic vol] 91.5 fL Normal 80.0-94.0 [facility] Comment on above: Performed By: #### C BC #### [facility] [address] [place] [address] Dr. Jessie Lomax MONO # 0.7 103/ul Normal 0.3-0.8 [facility] Comment on above: Performed By: #### C BC #### [facility] [address] [place] [address] Dr. Jessie Lomax Monocytes/100 WBC (Bld) 7.7 % Normal 1.7-12.0 [facility] Comment on above: Performed By: #### C BC #### [facility] [address] [place] [address] Dr. Jessie Lomax NEUT # 5.8 103/ul Normal 1.4-6.5 [facility] Comment on above: Performed By: #### C BC #### [facility] [address] [place] [address] Dr. Jessie Lomax Neutrophils/100 WBC (Bld) 68.1 % Normal 43.0-75.0 [facility] Comment on above: Performed By: #### C BC #### [facility] [address] [place] [address] Dr. Jessie Lomax Platelet mean volume (Bld) [Entitic vol] 9.0 fL Critically low 9.5-13.5 [facility] Comment on above: Performed By: #### C BC #### [facility] [address] [place] [address] Dr. Jessie Lomax PLT 275 103/ul Normal 150-450 [facility] Comment on above: Performed By: #### C BC #### [facility] [address] [place] [address] Dr. Jessie Lomax RBC 4.72 106/ul Normal 4.70-6.10 [facility] Comment on above: Performed By: #### C BC #### [facility] [address] [place] [address] Dr. Jessie Lomax WBC 8.6 103/ul Normal 4.0-11.0 [facility] Comment on above: Performed By: #### C BC #### [facility] [address] [place] [address] Dr. Jessie Lomax CTA CHEST WO W [...] by: DAVID GIBBS Date: 2022-08-17 17:23 Normal [facility] CULTURE BLOODon 08-17-2022 Microscopic examination of blood, culture Culture Observations: NO GROWTH AT 5 DAYS. Normal [facility] Comment on above: Performed By: #### C MP #### [facility] [address] [address] [address] Jessie Lomax Microscopic examination of blood, culture Culture Observations: NO GROWTH AT 5 DAYS. Normal [facility] Comment on above: Performed By: #### B [id number] #### [facility] [address] [address] [address] Jessie Lomax [facility] SARS-CoV-2 (COVID-19) RNA YOLANDA+probe Ql (Unsp spec) Not detected Normal NOT DETECTED [facility] Comment on above: Result Comment: When [...] for this test is supported by the Educational [employer] President of Health and Human Service's declaration that [...] used). Performed By: #### C BC #### [facility] [address] [place] [address] Dr. Jessie Lomax LACTATE/LACTIC ACIDon 2022 Lactate [Moles/Vol] 2.0 mmol/L Critically high 0.4-1.9 [facility] Comment on above: Performed By: #### C BC #### [facility] [address] [place] [address] Dr. Jessie Lomax PH VENOUS BLOODon 08-17-2022 PCO2 VENOUS 44.5 mmHg Normal 40.0-52.0 [facility] Comment on above: Performed By: #### C BC #### [facility] [address] [place] [address] Dr. Jessie Lomax pH VENOUS 7.433 Critically high 7.330-7.430 [facility] Comment on above: Performed By: #### C BC #### [facility] [address] [place] [address] Dr. Jessie Lomax PROF 14(COMP METB)on 023 Albumin [Mass/Vol] 3.4 g/dL Normal 3.4-5.0 [facility] Comment on above: Performed By: #### C BC #### [facility] [address] [place] [address] Dr. Jessie Lomax Albumin/Globulin [Mass ratio] 1.1 {ratio} Normal [facility] Comment on above: Performed By: #### C BC #### [facility] [address] [place] [address] Dr. Jessie Lomax ALP [Catalytic activity/Vol] 90 U/L Normal 46-116 [facility] Comment on above: Performed By: #### C BC #### [facility] [address] [place] [address] Dr. Jessie Lomax ALT [Catalytic activity/Vol] 26 U/L Normal 16-63 [facility] Comment on above: Performed By: #### C BC #### [facility] [address] [place] [address] Dr. Jessie Lomax Anion gap [Moles/Vol] 11.1 mmol/L Normal [facility] Comment on above: Performed By: #### C BC #### [facility] [address] [address] [address] Jessie Lomax AST [Catalytic activity/Vol] 9 U/L Critically low 15-37 [facility] Comment on above: Performed By: #### C BC #### [facility] [address] [address] [address] Jessie Lomax Bilirubin [Mass/Vol] 0.2 mg/dL Normal 0.2-1.0 [facility] Comment on above: Performed By: #### C BC #### [facility] [address] [address] [address] Jessie Lomax Calcium [Mass/Vol] 9.0 mg/dL Normal 8.5-10.1 [facility] Comment on above: Performed By: #### C BC #### [facility] [address] [place] [address] Dr. Jessie Lomax Chloride [Moles/Vol] 103 mmol/L Normal 98-107 [facility] Comment on above: Performed By: #### C BC #### [facility] [address] [address] [address] Jessie Lomax CO2 [Moles/Vol] 31.5 mmol/L Normal 21.0-32.0 [facility] Comment on above: Performed By: #### C BC #### [facility] [address] [place] [address] Dr. Jessie Lomax Creatinine [Mass/Vol] 0.94 mg/dL Normal 0.70-1.30 [facility] Comment on above: Performed By: #### C BC #### [facility] [address] [address] [address] Jessie Lomax EGFR-AF ERITREAN >60 Normal >=60 [facility] Comment on above: Performed By: #### C BC #### [facility] [address] [place] [address] Dr. Jessie Lomax EGFR-NON AF ERITREAN >60 Normal >=60 [facility] Comment on above: Performed By: #### C BC #### [facility] [address] [place], [place] [id number] Dr. Jessie Lomax Globulin (S) [Mass/Vol] 3.2 g/dL Normal [facility] Comment on above: Performed By: #### C BC #### [facility] [address] [place] [address] Dr. Jessie Lomax Glucose [Mass/Vol] 124 mg/dL Critically high 74-106 [facility] Comment on above: Performed By: #### C BC #### [facility] [address] [place] [address] Dr. Jessie Lomax Potassium [Moles/Vol] 3.6 mmol/L Normal 3.5-5.1 [facility] Comment on above: Performed By: #### C BC #### [facility] [address] [place] [address] Dr. Jessie Lomax Protein [Mass/Vol] 6.6 g/dL Normal 6.4-8.2 [facility] Comment on above: Performed By: #### C BC #### [facility] [address] [place] [address] Dr. Jessie oLmax Sodium [Moles/Vol] 142 mmol/L Normal 136-145 [facility] Comment on above: Performed By: #### C BC #### [facility] [address] [place] [address] Dr. Jessie Lomax Urea nitrogen [Mass/Vol] 14.0 mg/dL Normal 7.0-18.0 [facility] Comment on above: Performed By: #### C BC #### [facility] [address] [place] [address] Dr. Jessie Lomax Urea nitrogen/Creatinine [Mass ratio] 14.9 mg/mg Normal [facility] Comment on above: Performed By: #### C BC #### [facility] [address] [place] [address] Dr. Jessie Lomax PROTIMEon 08-17-2022 INR Coag (PPP) [Relative time] {INR} Normal [facility] Comment on above: Performed By: #### B [id number] #### [facility] [address] [place] [address] Dr. Jessie Lomax INR GUIDELINES SEE BELOW Normal [facility] Comment on above: Result Comment: VANESSA RED INR: 2.0 - 3.0 CONDITIONS NOT LISTED BELOW 2.5 - 3.5 FOR PROSTHETIC HEART VALVE REPLACEMENT 2.5 - 3.5 RECURRENT THROMBOSIS Performed By: #### B LDCX1 #### [facility] [address] [place] [address] Dr. Jessie Lomax PT Coag (PPP) [Time] 9.7 s Normal 9.0-11.6 [facility] Comment on above: Performed By: #### B [id number] #### [facility] [address] [place] [address] Dr. Jessie Lomax PTTon 08-17-2022 aPTT Coag (Bld) [Time] 23.4 s Normal 22.3-36.2 [facility] Comment on above: Performed By: #### B LDCX1 #### [facility] [address] [place] [address] Dr. Jessie Lomax TROPONIN, HIGH SENSITIVITYon 08-17-2022 HSTROP 14.6 pg/mL Normal 4.0-76.1 [facility] Comment on above: Result Comment: CUT- OFF POINTS HAVE BEEN ESTABLISHED BASED ON THE FOURTH UNIVERSAL DEFINITIONS OF MYOCARDIAL INFARCTION. THE UPPER REFERENCE LIMIT (URL) OF TROPONIN, DEFINED THE 99TH PERCENTILE OF cTnI DISTRIBUTION IN A REFERENCE POPULATION, HAS BEEN CONFIRMED THE DECISION THRESHOLD FOR PA DIAGNOSIS. Performed By: #### A CETON #### [facility] [address] [place] [address] Dr. Jessie Lomax TSHon 08-17-2022 TSH 1.079 uIU/mL Normal 0.358-3.740 [facility] Comment on above: Performed By: #### C BC #### [facility] [address] [place] [address] Dr. Jessie Lomax THEOPHYLLINEon 08-10-2022 THEOPHYLLINE 11.3 ug/mL Normal 10.0-20.0 [facility] Comment on above: Performed By: #### T TYLER #### [facility] [address] [place] [address] Dr. Jessie Lomax CBC AUTO DIFFon 07-02-2022 BASO # 0.0 103/ul Normal 0.0-0.1 [facility] Comment on above: Performed By: #### T TYLER #### [facility] [address] [place] [address] Dr. Jessie Lomax Basophils/100 WBC (Bld) 0.1 % Critically low 0.2-2.0 [facility] Comment on above: Performed By: #### T TYLER #### [facility] [address] [place] [address] Dr. Jessie Lomax EO # 0.0 103/ul Normal 0.0-0.7 [facility] Comment on above: Performed By: #### T TYLER #### [facility] [address] [place] [address] Dr. Jessie Lomax Eosinophils/100 WBC (Bld) 0.1 % Critically low 0.9-7.0 [facility] Comment on above: Performed By: #### T TYLER #### [facility] [address] [place] [address] Dr. Jessie Lomax Erythrocyte distribution width (RBC) [Ratio] 13.6 % Normal 11.0-15.0 [facility] Comment on above: Performed By: #### T TYLER #### [facility] [address] [place] [address] Dr. Jessie Lomax Hematocrit (Bld) [Volume fraction] 44.4 % Normal 42.0-54.0 [facility] Comment on above: Performed By: #### T TYLER #### [facility] [address] [place] [address] Dr. Jessie Lomax Hemoglobin (Bld) [Mass/Vol] 14.9 g/dL Normal 14.0-18.0 [facility] Comment on above: Performed By: #### T TYLER #### [facility] [address] [place] [address] Dr. Jessie Lomax IG # 0.11 10e3/ul Critically high 0.00-0.03 [facility] Comment on above: Performed By: #### T TYLER #### [facility] [address] [address] [address] Jessie Lomax IG % 0.7 % Critically high 0.0-0.5 [facility] Comment on above: Performed By: #### T TYLER #### [facility] [address] [address] [address] Jessie Lomax LYMPH # 0.8 103/ul Critically low 1.2-3.8 [facility] Comment on above: Performed By: #### T TYLER #### [facility] [address] [address] [address] Jessie Lomax Lymphocytes/100 WBC (Bld) 5.1 % Critically low 20.5-60.0 [facility] Comment on above: Performed By: #### T TYLER #### [facility] [address] [place] [address] Dr. Jessie Lomax MANUAL DIFF REQ NO Normal [facility] Comment on above: Performed By: #### T TYLER #### [facility] [address] [place] [address] Dr. Jessie Lomax MCH (RBC) [Entitic mass] 31.1 pg Normal 25.9-34.0 [facility] Comment on above: Performed By: #### T TLYER #### [facility] [address] [place] [address] Dr. Jessie Lomax MCHC (RBC) [Mass/Vol] 33.6 g/dL Normal 29.9-35.2 [facility] Comment on above: Performed By: #### T TYLER #### [facility] [address] [place] [address] Dr. Jessie Lomax MCV (RBC) [Entitic vol] 92.7 fL Normal 80.0-94.0 [facility] Comment on above: Performed By: #### T TYLER #### [facility] [address] [address] [address] Jessie Lomax MONO # 0.4 103/ul Normal 0.3-0.8 [facility] Comment on above: Performed By: #### T TYLER #### [facility] [address] [address] [address] Jessie Lomax Monocytes/100 WBC (Bld) 2.6 % Normal 1.7-12.0 [facility] Comment on above: Performed By: #### T TYLER #### [facility] [address] [address] [address] Jessie Lomax NEUT # 13.8 103/ul Critically high 1.4-6.5 [facility] Comment on above: Performed By: #### T TYLER #### [facility] [address] [place] [address] Dr. Jessie Lomax Neutrophils/100 WBC (Bld) 91.4 % Critically high 43.0-75.0 [facility] Comment on above: Performed By: #### T TYLER #### [facility] [address] [place] [address] Dr. Jessie Lomax Platelet mean volume (Bld) [Entitic vol] 9.9 fL Normal 9.5-13.5 [facility] Comment on above: Performed By: #### T TYLER #### [facility] [address] [place] [address] Dr. Jessie Lomax PLT 300 103/ul Normal 150-450 [facility] Comment on above: Performed By: #### T TYLER #### [facility] [address] [place] [address] Dr. Jessie Lomax RBC 4.79 106/ul Normal 4.70-6.10 [facility] Comment on above: Performed By: #### T TYLER #### [facility] [address] [place] [address] Dr. Jessie Lomax WBC 15.1 103/ul Critically high 4.0-11.0 [facility] Comment on above: Performed By: #### T TYLER #### [facility] [address] [place] [address] Dr. Jessie Lomax POINT OF CARE GLUCOSEon 06-17 Glucose [Mass/Vol] 288 mg/dL Critically high 74-106 [facility] Comment on above: Performed By: #### C BC #### [facility] [address] [address] [address] Jessie Lomax Glucose [Mass/Vol] 280 mg/dL Critically high 74-106 [facility] Comment on above: Performed By: #### T TYLER #### [facility] [address] [address] [address] Jessie Lomax PROF 14(COMP METB)on 022 Albumin [Mass/Vol] 3.7 g/dL Normal 3.4-5.0 [facility] Comment on above: Performed By: #### C MP #### [facility] [address] [place] [address] Dr. Jessie Lomax Albumin/Globulin [Mass ratio] 1.1 {ratio} Normal [facility] Comment on above: Performed By: #### C MP #### [facility] [address] [place] [address] Dr. Jessie Lomax ALP [Catalytic activity/Vol] 73 U/L Normal 46-116 [facility] Comment on above: Performed By: #### C MP #### [facility] [address] [place] [address] Dr. Jessie Lomax ALT [Catalytic activity/Vol] 22 U/L Normal 16-63 [facility] Comment on above: Performed By: #### C MP #### [facility] [address] [place] [address] Dr. Jessie Lomax Anion gap [Moles/Vol] 13.4 mmol/L Normal [facility] Comment on above: Performed By: #### C MP #### [facility] [address] [place] [address] Dr. Jessie Lomax AST [Catalytic activity/Vol] 16 U/L Normal 15-37 [facility] Comment on above: Performed By: #### C MP #### [facility] [address] [place] [address] Dr. Jessie Lomax Bilirubin [Mass/Vol] 0.3 mg/dL Normal 0.2-1.0 [facility] Comment on above: Performed By: #### C MP #### [facility] [address] [address] [address] Jessie Lomax Calcium [Mass/Vol] 9.3 mg/dL Normal 8.5-10.1 [facility] Comment on above: Performed By: #### C MP #### [facility] [address] [address] [address] Jessie Lomax Chloride [Moles/Vol] 98 mmol/L Normal 98-107 [facility] Comment on above: Performed By: #### C MP #### [facility] [address] [address] [address] Jessie Lomax CO2 [Moles/Vol] 29.9 mmol/L Normal 21.0-32.0 [facility] Comment on above: Performed By: #### C MP #### [facility] [address] [place] [address] Dr. Jessie Lomax Creatinine [Mass/Vol] 1.18 mg/dL Normal 0.70-1.30 [facility] Comment on above: Performed By: #### C MP #### [facility] [address] [place] [address] Dr. Jessie Lomax EGFR-AF ERITREAN >60 Normal >=60 [facility] Comment on above: Performed By: #### C MP #### [facility] [address] [place] [address] Dr. Jessie Lomax EGFR-NON AF ERITREAN >60 Normal >=60 [facility] Comment on above: Performed By: #### C MP #### [facility] [address] [address] [address] Jessie Lomax Globulin (S) [Mass/Vol] 3.3 g/dL Normal [facility] Comment on above: Performed By: #### C MP #### [facility] [address] [place] [address] Dr. Jessie Lomax Glucose [Mass/Vol] 329 mg/dL Critically high 74-106 [facility] Comment on above: Performed By: #### C MP #### [facility] [address] [address] [address] Jessie Lomax Potassium [Moles/Vol] 4.3 mmol/L Normal 3.5-5.1 [facility] Comment on above: Performed By: #### C MP #### [facility] [address] [place] [address] Dr. Jessie Lomax Protein [Mass/Vol] 7.0 g/dL Normal 6.4-8.2 [facility] Comment on above: Performed By: #### C MP #### [facility] [address] [place] [address] Dr. Jessie Lomax Sodium [Moles/Vol] 137 mmol/L Normal 136-145 [facility] Comment on above: Performed By: #### C MP #### [facility] [address] [place] [address] Dr. Jessie Lomax Urea nitrogen [Mass/Vol] 21.0 mg/dL Critically high 7.0-18.0 [facility] Comment on above: Performed By: #### C MP #### [facility] [address] [place] [address] Dr. Jessie Lomax Urea nitrogen/Creatinine [Mass ratio] 17.8 mg/mg Normal [facility] Comment on above: Performed By: #### C MP #### [facility] [address] [place] [address] Dr. Jessie Lomax CBC W MANUAL DIFFon 07-01-20 22 ATYPICAL LYMPH # Normal [facility] Comment on above: Performed By: #### C BC #### [facility] [address] [place] [address] Dr. Jessie Lomax ATYPICAL LYMPH % Normal [facility] Comment on above: Performed By: #### C BC #### [facility] [address] [place] [address] Dr. Jessie Lomax BAND # 0.1 103/ul Normal 0.0-0.3 [facility] Comment on above: Performed By: #### C BC #### [facility] [address] [place] [address] Dr. Jessie Lomax BAND % 1 % Normal 0-5 [facility] Comment on above: Performed By: #### C BC #### [facility] [address] [place] [address] Dr. Jessie Lomax BASOM # 0.00 103/ul Normal 0.00-0.10 [facility] Comment on above: Performed By: #### C BC #### [facility] [address] [place] [address] Dr. Jessie Lomax BASOM % 0.0 % Critically low 0.2-2.0 [facility] Comment on above: Performed By: #### C BC #### [facility] [address] [place] [address] Dr. Jessie Lomax BLAST # Normal [facility] Comment on above: Performed By: #### C BC #### [facility] [address] [place] [address] Dr. Jessie Lomax BLAST % Normal [facility] Comment on above: Performed By: #### C BC #### [facility] [address] [place] [address] Dr. Jessie Lomax CORRECTED WBC Normal 4.0-11.0 [facility] Comment on above: Performed By: #### C BC #### [facility] [address] [place] [address] Dr. Jessie Lomax EOS # 0.12 103/ul Normal 0.00-0.70 [facility] Comment on above: Performed By: #### C BC #### [facility] [address] [place] [address] Dr. Jessie Lomax EOS% 1.0 % Normal 0.9-7.0 [facility] Comment on above: Performed By: #### C BC #### [facility] [address] [place] [address] Dr. Jessie Lomax HCT 45.4 % Normal 42.0-54.0 [facility] Comment on above: Performed By: #### C BC #### [facility] [address] [place] [address] Dr. Jessie Lomax HGB 15.5 g/dl Normal 14.0-18.0 [facility] Comment on above: Performed By: #### C BC #### [facility] [address] [place] [address] Dr. Jessie Lomax LYMPHM # 0.48 103/ul Critically low 1.20-3.80 [facility] Comment on above: Performed By: #### C BC #### [facility] [address] [place] [address] Dr. Jessie Lomax LYMPHM% 4.0 % Critically low 20.5-60.0 [facility] Comment on above: Performed By: #### C BC #### [facility] [address] [place] [address] Dr. Jessie Lomax MCH 31.8 pg Normal 25.9-34.0 [facility] Comment on above: Performed By: #### C BC #### [facility] [address] [place] [address] Dr. Jessie Lomax MCHC 34.1 g/dl Normal 29.9-35.2 [facility] Comment on above: Performed By: #### C BC #### [facility] [address] [place] [address] Dr. Jessie Lomax MCV 93.0 fL Normal 80.0-94.0 [facility] Comment on above: Performed By: #### C BC #### [facility] [address] [place] [address] Dr. Jessie Lomax METAMYELOCYTE # Normal [facility] Comment on above: Performed By: #### C BC #### [facility] [address] [place] [address] Dr. Jessie Lomax METAMYELOCYTE % Normal [facility] Comment on above: Performed By: #### C BC #### [facility] [address] [place] [address] Dr. Jessie Lomax MONOM# 0.24 103/ul Critically low 0.30-0.80 [facility] Comment on above: Performed By: #### C BC #### [facility] [address] [place] [address] Dr. Jessie Lomax MONOM% 2.0 % Normal 1.7-12.0 [facility] Comment on above: Performed By: #### C BC #### [facility] [address] [place] [address] Dr. Jessie Lomax MPV 9.6 fL Normal 9.5-13.5 [facility] Comment on above: Performed By: #### C BC #### [facility] [address] [address] [address] Jessie Lomax MYELOCYTE # Normal [facility] Comment on above: Performed By: #### C BC #### [facility] [address] [address] [address] Jessie Lomax MYELOCYTE % Normal [facility] Comment on above: Performed By: #### C BC #### [facility] [address] [place] [address] Dr. Jessie Lomax NRBC Normal [facility] Comment on above: Performed By: #### C BC #### [facility] [address] [place] [address] Dr. Jessie Lomax PLT 300 103/ul Normal 150-450 [facility] Comment on above: Performed By: #### C BC #### [facility] [address] [place] [address] Dr. Jessie Lomax RBC 4.88 106/ul Normal 4.70-6.10 [facility] Comment on above: Performed By: #### C BC #### [facility] [address] [place] [address] Dr. Jessie Lomax RDW 13.5 % Normal 11.0-15.0 [facility] Comment on above: Performed By: #### C BC #### [facility] [address] [place] [address] Dr. Jessie Lomax SEG # 10.95 103/ul Critically high 1.40-6.50 [facility] Comment on above: Performed By: #### C BC #### [facility] [address] [place] [address] Dr. Jessie Lomax SEG % 92.0 % Critically high 43.0-75.0 [facility] Comment on above: Performed By: #### C BC #### [facility] [address] [place] [address] Dr. Jessie Lomax WBC 11.9 103/ul Critically high 4.0-11.0 [facility] Comment on above: Performed By: #### C BC #### [facility] [address] [place] [address] Dr. Jessie Lomax POINT OF CARE GLUCOSEon 06-17 Glucose [Mass/Vol] 428 mg/dL Critically high 74-106 [facility] Comment on above: Performed By: #### A CETON #### [facility] [address] [place] [address] Dr. Jessie Lomax Glucose [Mass/Vol] 337 mg/dL Critically high 74-106 [facility] Comment on above: Performed By: #### B [id number] #### [facility] [address] [place] [address] Dr. Jessie Lomax Glucose [Mass/Vol] 233 mg/dL Critically high 74-106 [facility] Comment on above: Performed By: #### B [id number] #### [facility] [address] [place] [address] Dr. Jessie Lomax PROF 14(COMP METB)on 022 Albumin [Mass/Vol] 3.7 g/dL Normal 3.4-5.0 [facility] Comment on above: Performed By: #### C MP #### [facility] [address] [place] [address] Dr. Jessie Lomax Albumin/Globulin [Mass ratio] 1.1 {ratio} Normal [facility] Comment on above: Performed By: #### C MP #### [facility] [address] [place] [address] Dr. Jessie Lomax ALP [Catalytic activity/Vol] 86 U/L Normal 46-116 [facility] Comment on above: Performed By: #### C MP #### [facility] [address] [place] [address] Dr. Jessie Lomax ALT [Catalytic activity/Vol] 20 U/L Normal 16-63 [facility] Comment on above: Performed By: #### C MP #### [facility] [address] [address] [address] Jessie Lomax Anion gap [Moles/Vol] 13.8 mmol/L Normal [facility] Comment on above: Performed By: #### C MP #### [facility] [address] [address] [address] Jessie Lomax AST [Catalytic activity/Vol] 10 U/L Critically low 15-37 [facility] Comment on above: Performed By: #### C MP #### [facility] [address] [address] [address] Jessie Lomax Bilirubin [Mass/Vol] 0.3 mg/dL Normal 0.2-1.0 [facility] Comment on above: Performed By: #### C MP #### [facility] [address] [address] [address] Jessie Lomax Calcium [Mass/Vol] 9.3 mg/dL Normal 8.5-10.1 [facility] Comment on above: Performed By: #### C MP #### [facility] [address] [place] [address] Dr. Jessie Lomax Chloride [Moles/Vol] 101 mmol/L Normal 98-107 [facility] Comment on above: Performed By: #### C MP #### [facility] [address] [address] [address] Jessie Lomax CO2 [Moles/Vol] 27.0 mmol/L Normal 21.0-32.0 [facility] Comment on above: Performed By: #### C MP #### [facility] [address] [address] [address] Jessie Lomax Creatinine [Mass/Vol] 1.15 mg/dL Normal 0.70-1.30 [facility] Comment on above: Performed By: #### C MP #### [facility] [address] [place] [address] Dr. Jessie Lomax EGFR-AF ERITREAN >60 Normal >=60 [facility] Comment on above: Performed By: #### C MP #### [facility] [address] [place] [address] Dr. Jessie Lomax EGFR-NON AF ERITREAN >60 Normal >=60 [facility] Comment on above: Performed By: #### C MP #### [facility] [address] [address] [address] Jessie Lomax Globulin (S) [Mass/Vol] 3.5 g/dL Normal [facility] Comment on above: Performed By: #### C MP #### [facility] [address] [address] [address] Jessie Lomax Glucose [Mass/Vol] 284 mg/dL Critically high 74-106 [facility] Comment on above: Performed By: #### C MP #### [facility] [address] [address] [address] Jessie Lomax Potassium [Moles/Vol] 4.8 mmol/L Normal 3.5-5.1 [facility] Comment on above: Performed By: #### C MP #### [facility] [address] [place] [address] Dr. Jessie Lomax Protein [Mass/Vol] 7.2 g/dL Normal 6.4-8.2 [facility] Comment on above: Performed By: #### C MP #### [facility] [address] [place] [address] Dr. Jessie Lomax Sodium [Moles/Vol] 137 mmol/L Normal 136-145 [facility] Comment on above: Performed By: #### C MP #### [facility] [address] [address] [address] Jessie Lomax Urea nitrogen [Mass/Vol] 22.0 mg/dL Critically high 7.0-18.0 [facility] Comment on above: Performed By: #### C MP #### [facility] [address] [address] [address] Jessie Lomax Urea nitrogen/Creatinine [Mass ratio] 19.1 mg/mg Normal [facility] Comment on above: Performed By: #### C MP #### [facility] [address] [place] [address] Dr. Jessie Lomax ACETONE SERUMon 06-30-2022 ACETONE Negative Normal NEGATIVE [facility] Comment on above: Performed By: #### A CETON #### [facility] [address] [place] [address] Dr. Jessie Lomax BNPon 06-30-2022 Natriuretic peptide B (Bld) [Mass/Vol] 45.0 pg/mL Normal <=900.0 [facility] Comment on above: Performed By: #### T TYLER #### [facility] [address] [place] [address] Dr. Jessie Lomax CBC AUTO DIFFon 06-30-2022 BASO # 0.1 103/ul Normal 0.0-0.1 [facility] Comment on above: Performed By: #### C MP #### [facility] [address] [place] [address] Dr. Jessie Lomax Basophils/100 WBC (Bld) 0.9 % Normal 0.2-2.0 [facility] Comment on above: Performed By: #### C MP #### [facility] [address] [place] [address] Dr. Jessie Lomax EO # 0.1 103/ul Normal 0.0-0.7 [facility] Comment on above: Performed By: #### C MP #### [facility] [address] [place] [address] Dr. Jessie Lomax Eosinophils/100 WBC (Bld) 0.9 % Normal 0.9-7.0 [facility] Comment on above: Performed By: #### C MP #### [facility] [address] [place] [address] Dr. Jessie Lomax Erythrocyte distribution width (RBC) [Ratio] 13.4 % Normal 11.0-15.0 [facility] Comment on above: Performed By: #### C MP #### [facility] [address] [place] [address] Dr. Jessie Lomax Hematocrit (Bld) [Volume fraction] 47.0 % Normal 42.0-54.0 [facility] Comment on above: Performed By: #### C MP #### [facility] [address] [place] [address] Dr. Jessie Lomax Hemoglobin (Bld) [Mass/Vol] 16.0 g/dL Normal 14.0-18.0 [facility] Comment on above: Performed By: #### C MP #### [facility] [address] [place] [address] Dr. Jessie Lomax IG # 0.05 10e3/ul Critically high 0.00-0.03 [facility] Comment on above: Performed By: #### C MP #### [facility] [address] [place] [address] Dr. Jessie Lomax IG % 0.5 % Normal 0.0-0.5 [facility] Comment on above: Performed By: #### C MP #### [facility] [address] [place] [address] Dr. Jessie Lomax LYMPH # 2.0 103/ul Normal 1.2-3.8 [facility] Comment on above: Performed By: #### C MP #### [facility] [address] [place] [address] Dr. Jessie Lomax Lymphocytes/100 WBC (Bld) 20.1 % Critically low 20.5-60.0 [facility] Comment on above: Performed By: #### C MP #### [facility] [address] [place] [address] Dr. Jessie Lomax MANUAL DIFF REQ NO Normal [facility] Comment on above: Performed By: #### C MP #### [facility] [address] [place] [address] Dr. Jessie Lomax MCH (RBC) [Entitic mass] 31.5 pg Normal 25.9-34.0 [facility] Comment on above: Performed By: #### C MP #### [facility] [address] [place] [address] Dr. Jessie Lomax MCHC (RBC) [Mass/Vol] 34.0 g/dL Normal 29.9-35.2 [facility] Comment on above: Performed By: #### C MP #### [facility] [address] [place] [address] Dr. Jessie Lomax MCV (RBC) [Entitic vol] 92.5 fL Normal 80.0-94.0 [facility] Comment on above: Performed By: #### C MP #### [facility] [address] [place] [address] Dr. Jessie Lomax MONO # 0.7 103/ul Normal 0.3-0.8 [facility] Comment on above: Performed By: #### C MP #### [facility] [address] [place] [address] Dr. Jessie Lomax Monocytes/100 WBC (Bld) 6.8 % Normal 1.7-12.0 [facility] Comment on above: Performed By: #### C MP #### [facility] [address] [place] [address] Dr. Jessie Lomax NEUT # 6.9 103/ul Critically high 1.4-6.5 [facility] Comment on above: Performed By: #### C MP #### [facility] [address] [place] [address] Dr. Jessie Lomax Neutrophils/100 WBC (Bld) 70.8 % Normal 43.0-75.0 [facility] Comment on above: Performed By: #### C MP #### [facility] [address] [place] [address] Dr. Jessie Lomax Platelet mean volume (Bld) [Entitic vol] 9.5 fL Normal 9.5-13.5 [facility] Comment on above: Performed By: #### C MP #### [facility] [address] [place] [address] Dr. Jessie Lomax PLT 308 103/ul Normal 150-450 [facility] Comment on above: Performed By: #### C MP #### [facility] [address] [place] [address] Dr. Jessie Lomax RBC 5.08 106/ul Normal 4.70-6.10 [facility] Comment on above: Performed By: #### C MP #### [facility] [address] [place] [address] Dr. Jessie Lomax WBC 9.7 103/ul Normal 4.0-11.0 [facility] Comment on above: Performed By: #### C MP #### [facility] [address] [place] [address] Dr. Jessie Lomax CULTURE BLOODon 06-30-2022 Microscopic examination of blood, culture Culture Observations: NO GROWTH AT 5 DAYS. Normal [facility] Comment on above: Performed By: #### B [id number] #### [facility] [address] [place] [address] Dr. Jessie Lomax Microscopic examination of blood, culture Culture Observations: NO GROWTH AT 5 DAYS. Normal [facility] Comment on above: Performed By: #### B [id number] #### [facility] [address] [place] [address] Dr. Jessie Lomax Covid-19 PCR ([facility])on 06-17 SARS-CoV-2 (COVID-19) RNA YOLANDA+probe Ql (Unsp spec) Not detected Normal NOT DETECTED [facility] Comment on above: Result Comment: When [...] for this test is supported by the Educational [employer] President of Health and Human Service's declaration that [...] used). Performed By: #### B [id number] #### [facility] [address] [place] [address] Dr. Jessie Lomax D-DIMERon 06-30-2022 D-DIMER 0.26 mg/L FEU Normal <=0.59 [facility] Comment on above: Performed By: #### C BC #### [facility] [address] [place] [address] Dr. Jessie Lomax D-DIMER COMMENTS SEE BELOW Normal [facility] Comment on above: Result Comment: Incr eases [...] hospitalization. Performed By: #### C BC #### [facility] [address] [place] [address] Dr. Jessie Lomax LACTATE/LACTIC ACIDon 2021 Lactate [Moles/Vol] 1.7 mmol/L Normal 0.4-1.9 [facility] Comment on above: Performed By: #### B [id number] #### [facility] [address] [place] [address] Dr. Jessie Lomax PH VENOUS BLOODon 06-30-2022 PCO2 VENOUS 54.1 mmHg Critically high 40.0-52.0 [facility] Comment on above: Performed By: #### B [id number] #### [facility] [address] [place] [address] Dr. Jessie Lomax pH VENOUS 7.323 Critically low 7.330-7.430 [facility] Comment on above: Performed By: #### B [id number] #### [facility] [address] [place] [address] Dr. Jessie Lomax PROF 14(COMP METB)on 022 Albumin [Mass/Vol] 3.9 g/dL Normal 3.4-5.0 [facility] Comment on above: Performed By: #### T TYLER #### [facility] [address] [place] [address] Dr. Jessie Lomax Albumin/Globulin [Mass ratio] 1.1 {ratio} Normal [facility] Comment on above: Performed By: #### T TYLER #### [facility] [address] [address] [address] Jessie Lomax ALP [Catalytic activity/Vol] 96 U/L Normal 46-116 [facility] Comment on above: Performed By: #### T TYLER #### [facility] [address] [place] [address] Dr. Jessie Lomax ALT [Catalytic activity/Vol] 19 U/L Normal 16-63 [facility] Comment on above: Performed By: #### T TYLER #### [facility] [address] [place] [address] Dr. Jessie Lomax Anion gap [Moles/Vol] 4.5 mmol/L Normal [facility] Comment on above: Performed By: #### T TYLER #### [facility] [address] [place] [address] Dr. Jessie Lomax AST [Catalytic activity/Vol] 13 U/L Critically low 15-37 [facility] Comment on above: Performed By: #### T TYLER #### [facility] [address] [place] [address] Dr. Jessie Lomax Bilirubin [Mass/Vol] 0.4 mg/dL Normal 0.2-1.0 [facility] Comment on above: Performed By: #### T TYLER #### [facility] [address] [place] [address] Dr. Jessie Lomax Calcium [Mass/Vol] 9.2 mg/dL Normal 8.5-10.1 [facility] Comment on above: Performed By: #### T TYLER #### [facility] [address] [place] [address] Dr. Jessie Lomax Chloride [Moles/Vol] 103 mmol/L Normal 98-107 [facility] Comment on above: Performed By: #### T TYLER #### [facility] [address] [place] [address] Dr. Jessie Lomax CO2 [Moles/Vol] 26.3 mmol/L Normal 21.0-32.0 [facility] Comment on above: Performed By: #### T TYLER #### [facility] [address] [place] [address] Dr. Jessie Lomax Creatinine [Mass/Vol] 1.06 mg/dL Normal 0.70-1.30 [facility] Comment on above: Performed By: #### T TYLER #### [facility] [address] [place] [address] Dr. Jessie Lomax EGFR-AF ERITREAN >60 Normal >=60 [facility] Comment on above: Performed By: #### T TYLER #### [facility] [address] [address] [address] Jessie Lomax EGFR-NON AF ERITREAN >60 Normal >=60 [facility] Comment on above: Performed By: #### T TYLER #### [facility] [address] [place] [address] Dr. Jessie Lomax Globulin (S) [Mass/Vol] 3.5 g/dL Normal [facility] Comment on above: Performed By: #### T TYLER #### [facility] [address] [place] [address] Dr. Jessie Lomax Glucose [Mass/Vol] 221 mg/dL Critically high 74-106 [facility] Comment on above: Performed By: #### T TYLER #### [facility] [address] [place] [address] Dr. Jessie Lomax Potassium [Moles/Vol] 4.6 mmol/L Normal 3.5-5.1 [facility] Comment on above: Performed By: #### T TYLER #### [facility] [address] [place] [address] Dr. Jessie Lomax Protein [Mass/Vol] 7.4 g/dL Normal 6.4-8.2 [facility] Comment on above: Performed By: #### T TYLER #### [facility] [address] [place] [address] Dr. Jessie Lomax Sodium [Moles/Vol] 138 mmol/L Normal 136-145 [facility] Comment on above: Performed By: #### T TYLER #### [facility] [address] [place] [address] Dr. Jessie Lomax Urea nitrogen [Mass/Vol] 23.0 mg/dL Critically high 7.0-18.0 [facility] Comment on above: Performed By: #### T TYLER #### [facility] [address] [place] [address] Dr. Jessie Lomax Urea nitrogen/Creatinine [Mass ratio] 20.2 mg/mg Normal [facility] Comment on above: Performed By: #### T TYLER #### [facility] [address] [place] [address] Dr. Jessie oLmax PROTIMEon 06-30-2022 INR Coag (PPP) [Relative time] 0.93 {INR} Normal [facility] Comment on above: Performed By: #### A CETON #### [facility] [address] [place] [address] Dr. Jessie Lomax INR GUIDELINES SEE BELOW Normal [facility] Comment on above: Result Comment: VANESSA RED INR: 2.0 - 3.0 CONDITIONS NOT LISTED BELOW 2.5 - 3.5 FOR PROSTHETIC HEART VALVE REPLACEMENT 2.5 - 3.5 RECURRENT THROMBOSIS Performed By: #### A CETON #### [facility] [address] [place] [address] Dr. Jessie Lomax PT Coag (PPP) [Time] 10.1 s Normal 9.0-11.6 [facility] Comment on above: Performed By: #### A CETON #### [facility] [address] [place] [address] Dr. Jessie Lomax PTTon 06-30-2022 aPTT Coag (Bld) [Time] 25.1 s Normal 22.3-36.2 [facility] Comment on above: Performed By: #### B [id number] #### [facility] [address] [place] [address] Dr. Jessie Lomax TROPONIN, HIGH SENSITIVITYon 06-30-2022 HSTROP 11.4 pg/mL Normal 4.0-76.1 [facility] Comment on above: Result Comment: CUT- OFF POINTS HAVE BEEN ESTABLISHED BASED ON THE FOURTH UNIVERSAL DEFINITIONS OF MYOCARDIAL INFARCTION. THE UPPER REFERENCE LIMIT (URL) OF TROPONIN, DEFINED THE 99TH PERCENTILE OF cTnI DISTRIBUTION IN A REFERENCE POPULATION, HAS BEEN CONFIRMED THE DECISION THRESHOLD FOR PA DIAGNOSIS. Performed By: #### T TYLER #### [facility] [address] [place] [address] Dr. Jessie Lomax XR CHEST 1 Von [...] SOLA SHELL Date: 2022-06-30 21:00 Normal [facility] BNPon 05-02-2022 Natriuretic peptide B (Bld) [Mass/Vol] 90.0 pg/mL Normal <=900.0 [facility] Comment on above: Performed By: #### B [id number] #### [facility] [address] [place] [address] Dr. Jessie Lomax CARDIAC JUSTINE ADMITon 022 CK [Catalytic activity/Vol] 84 U/L Normal 39-308 [facility] Comment on above: Performed By: #### B [id number] #### [facility] [address] [place] [address] Dr. Jessie Lomax CK.MB [Mass/Vol] 3.74 ng/mL Critically high <=3.60 [facility] Comment on above: Performed By: #### B [id number] #### [facility] [address] [place] [address] Dr. Jessie Lomax HSTROP 14.1 pg/mL Normal 4.0-76.1 [facility] Comment on above: Result Comment: CUT- OFF POINTS HAVE BEEN ESTABLISHED BASED ON THE FOURTH UNIVERSAL DEFINITIONS OF MYOCARDIAL INFARCTION. THE UPPER REFERENCE LIMIT (URL) OF TROPONIN, DEFINED THE 99TH PERCENTILE OF cTnI DISTRIBUTION IN A REFERENCE POPULATION, HAS BEEN CONFIRMED THE DECISION THRESHOLD FOR PA DIAGNOSIS. Performed By: #### B [id number] #### [facility] [address] [place] [address] Dr. Jessie Lomax HERLINDA 55 ng/mL Normal 16-96 [facility] Comment on above: Performed By: #### B [id number] #### [facility] [address] [place] [address] Dr. Jessie Lomax CBC AUTO DIFFon 05-02-2022 BASO # 0.1 103/ul Normal 0.0-0.1 [facility] Comment on above: Performed By: #### C BC #### [facility] [address] [place] [address] Dr. Jessie Lomax Basophils/100 WBC (Bld) 0.5 % Normal 0.2-2.0 [facility] Comment on above: Performed By: #### C BC #### [facility] [address] [place] [address] Dr. Jessie Lomax EO # 0.0 103/ul Normal 0.0-0.7 [facility] Comment on above: Performed By: #### C BC #### [facility] [address] [place] [address] Dr. Jessie Lomax Eosinophils/100 WBC (Bld) 0.3 % Critically low 0.9-7.0 [facility] Comment on above: Performed By: #### C BC #### [facility] [address] [place] [address] Dr. Jessie Lomax Erythrocyte distribution width (RBC) [Ratio] 13.6 % Normal 11.0-15.0 [facility] Comment on above: Performed By: #### C BC #### [facility] [address] [place] [address] Dr. Jessie Lomax Hematocrit (Bld) [Volume fraction] 46.1 % Normal 42.0-54.0 [facility] Comment on above: Performed By: #### C BC #### [facility] [address] [place] [address] Dr. Jessie Lomax Hemoglobin (Bld) [Mass/Vol] 15.6 g/dL Normal 14.0-18.0 [facility] Comment on above: Performed By: #### C BC #### [facility] [address] [place] [address] Dr. Jessie Lomax IG # 0.07 10e3/ul Critically high 0.00-0.03 [facility] Comment on above: Performed By: #### C BC #### [facility] [address] [place] [address] Dr. Jessie Lomax IG % 0.6 % Critically high 0.0-0.5 [facility] Comment on above: Performed By: #### C BC #### [facility] [address] [place] [address] Dr. Jessie Lomax LYMPH # 2.0 103/ul Normal 1.2-3.8 [facility] Comment on above: Performed By: #### C BC #### [facility] [address] [place] [address] Dr. Jessie Lomax Lymphocytes/100 WBC (Bld) 16.0 % Critically low 20.5-60.0 [facility] Comment on above: Performed By: #### C BC #### [facility] [address] [place] [address] Dr. Jessie Lomax MANUAL DIFF REQ NO Normal [facility] Comment on above: Performed By: #### C BC #### [facility] [address] [place] [address] Dr. Jessie Lomax MCH (RBC) [Entitic mass] 31.7 pg Normal 25.9-34.0 [facility] Comment on above: Performed By: #### C BC #### [facility] [address] [place] [address] Dr. Jessie Lomax MCHC (RBC) [Mass/Vol] 33.8 g/dL Normal 29.9-35.2 [facility] Comment on above: Performed By: #### C BC #### [facility] [address] [place] [address] Dr. Jessie Lomax MCV (RBC) [Entitic vol] 93.7 fL Normal 80.0-94.0 [facility] Comment on above: Performed By: #### C BC #### [facility] [address] [place] [address] Dr. Jessie Lomax MONO # 0.8 103/ul Normal 0.3-0.8 [facility] Comment on above: Performed By: #### C BC #### [facility] [address] [address] [address] Jessie Lomax Monocytes/100 WBC (Bld) 6.2 % Normal 1.7-12.0 [facility] Comment on above: Performed By: #### C BC #### [facility] [address] [address] [address] Jessie Lomax NEUT # 9.5 103/ul Critically high 1.4-6.5 [facility] Comment on above: Performed By: #### C BC #### [facility] [address] [address] [address] Jessie Lomax Neutrophils/100 WBC (Bld) 76.4 % Critically high 43.0-75.0 [facility] Comment on above: Performed By: #### C BC #### [facility] [address] [place] [address] Dr. Jessie Lomax Platelet mean volume (Bld) [Entitic vol] 9.6 fL Normal 9.5-13.5 [facility] Comment on above: Performed By: #### C BC #### [facility] [address] [place] [address] Dr. Jessie Lomax PLT 338 103/ul Normal 150-450 [facility] Comment on above: Performed By: #### C BC #### [facility] [address] [place] [address] Dr. Jessie Lomax RBC 4.92 106/ul Normal 4.70-6.10 [facility] Comment on above: Performed By: #### C BC #### [facility] [address] [place] [address] Dr. Jessie Lomax WBC 12.4 103/ul Critically high 4.0-11.0 [facility] Comment on above: Performed By: #### C BC #### [facility] [address] [place] [address] Dr. Jessie Lomax [facility] SARS-CoV-2 (COVID-19) RNA YOLANDA+probe Ql (Unsp spec) Not detected Normal NOT DETECTED [facility] Comment on above: Result Comment: When [...] for this test is supported by the Educational [employer] President of Health and Human Service's declaration that [...] used). Performed By: #### C MP #### [facility] [address] [place] [address] Dr. Jessie Lomax PROF 14(COMP METB)on 022 Albumin [Mass/Vol] 3.5 g/dL Normal 3.4-5.0 [facility] Comment on above: Performed By: #### B [id number] #### [facility] [address] [place] [address] Dr. Jessie Lomax Albumin/Globulin [Mass ratio] 1.0 {ratio} Normal [facility] Comment on above: Performed By: #### B [id number] #### [facility] [address] [place] [address] Dr. Jessie Lomax ALP [Catalytic activity/Vol] 104 U/L Normal 46-116 [facility] Comment on above: Performed By: #### B [id number] #### [facility] [address] [place] [address] Dr. Jessie Lomax ALT [Catalytic activity/Vol] 21 U/L Normal 16-63 [facility] Comment on above: Performed By: #### B [id number] #### [facility] [address] [place] [address] Dr. Jessie Lomax Anion gap [Moles/Vol] 11.7 mmol/L Normal [facility] Comment on above: Performed By: #### B [id number] #### [facility] [address] [place] [address] Dr. Jessie Lomax AST [Catalytic activity/Vol] U/L Critically low 15-37 [facility] Comment on above: Performed By: #### B [id number] #### [facility] [address] [place] [address] Dr. Jessie Lomax Bilirubin [Mass/Vol] 0.2 mg/dL Normal 0.2-1.0 [facility] Comment on above: Performed By: #### B [id number] #### [facility] [address] [place] [address] Dr. Jessie Lomax Calcium [Mass/Vol] 8.9 mg/dL Normal 8.5-10.1 [facility] Comment on above: Performed By: #### B [id number] #### [facility] [address] [place] [address] Dr. Jessie Lomax Chloride [Moles/Vol] 99 mmol/L Normal 98-107 [facility] Comment on above: Performed By: #### B [id number] #### [facility] [address] [place] [address] Dr. Jessie Lomax CO2 [Moles/Vol] 30.4 mmol/L Normal 21.0-32.0 [facility] Comment on above: Performed By: #### B [id number] #### [facility] [address] [place] [address] Dr. Jessie Lomax Creatinine [Mass/Vol] 1.29 mg/dL Normal 0.70-1.30 [facility] Comment on above: Performed By: #### B [id number] #### [facility] [address] [place] [address] Dr. Jessie Lomax EGFR-AF ERITREAN >60 Normal >=60 [facility] Comment on above: Performed By: #### B [id number] #### [facility] [address] [place] [address] Dr. Jessie Lomax EGFR-NON AF ERITREAN 56 mL/min/1.73m2 Critically low >=60 [facility] Comment on above: Performed By: #### B [id number] #### [facility] [address] [place] [address] Dr. Jessie Lomax Globulin (S) [Mass/Vol] 3.4 g/dL Normal [facility] Comment on above: Performed By: #### B [id number] #### [facility] [address] [address] [address] Jessie Lomax Glucose [Mass/Vol] 310 mg/dL Critically high 74-106 [facility] Comment on above: Performed By: #### B [id number] #### [facility] [address] [place] [address] Dr. Jessie Lomax Potassium [Moles/Vol] 4.1 mmol/L Normal 3.5-5.1 [facility] Comment on above: Performed By: #### B [id number] #### [facility] [address] [place] [address] Dr. Jessie Lomax Protein [Mass/Vol] 6.9 g/dL Normal 6.4-8.2 [facility] Comment on above: Performed By: #### B [id number] #### [facility] [address] [place] [address] Dr. Jessie Lomax Sodium [Moles/Vol] 137 mmol/L Normal 136-145 [facility] Comment on above: Performed By: #### B [id number] #### [facility] [address] [place] [address] Dr. Jessie Lomax Urea nitrogen [Mass/Vol] 16.0 mg/dL Normal 7.0-18.0 [facility] Comment on above: Performed By: #### B [id number] #### [facility] [address] [place] [address] Dr. Jessie Lomax Urea nitrogen/Creatinine [Mass ratio] 12.4 mg/mg Normal [facility] Comment on above: Performed By: #### B [id number] #### [facility] [address] [place] [address] Dr. Jessie Lomax PROTIMEon 05-02-2022 INR Coag (PPP) [Relative time] {INR} Normal [facility] Comment on above: Performed By: #### T TYLER #### [facility] [address] [place] [address] Dr. Jessie Lomax INR GUIDELINES SEE BELOW Normal [facility] Comment on above: Result Comment: VANESSA RED INR: 2.0 - 3.0 CONDITIONS NOT LISTED BELOW 2.5 - 3.5 FOR PROSTHETIC HEART VALVE REPLACEMENT 2.5 - 3.5 RECURRENT THROMBOSIS Performed By: #### T TYLER #### [facility] [address] [place] [address] Dr. Jessie Lomax PT Coag (PPP) [Time] 9.8 s Normal 9.0-11.6 [facility] Comment on above: Performed By: #### T TYLER #### [facility] [address] [place] [address] Dr. Jessie Lomax PTTon 05-02-2022 aPTT Coag (Bld) [Time] 23.0 s Normal 22.3-36.2 [facility] Comment on above: Performed By: #### T TYLER #### [facility] [address] [place] [address] Dr. Jessie Lomax XR CHEST 1 Von [...] GERARD ESPANA Date: 2022-05-02 08:55 Normal [facility] Covid-19 PCR ([facility])on 04-17 SARS-CoV-2 (COVID-19) RNA YOLANDA+probe Ql (Unsp spec) Not detected Normal NOT DETECTED [facility] Comment on above: Result Comment: This test is not yet approved or cleared by the [place] FDA. When there are no FDA-approved or cleared tests available, and other criteria are met, FDA can make tests available under an emergency access mechanism called an Emergency Use Authorization (EUA). The EUA for this test is supported by the [place] of Health and Human Service's (HHS's) declaration [...] SARS-CoV-2. Performed By: #### A CETON #### [facility] [address] [place] [address] Dr. Jessie Lomax CBC AUTO DIFFon 03-19-2022 BASO # 0.0 103/ul Normal 0.0-0.1 [facility] Comment on above: Performed By: #### C BC #### [facility] [address] [place] [address] Dr. Jessie Lomax Basophils/100 WBC (Bld) 0.4 % Normal 0.2-2.0 [facility] Comment on above: Performed By: #### C BC #### [facility] [address] [place] [address] Dr. Jesise Lomax EO # 0.0 103/ul Normal 0.0-0.7 [facility] Comment on above: Performed By: #### C BC #### [facility] [facility] [address] [place] [address] Dr. Jessie Lomax Eosinophils/100 WBC (Bld) 0.1 % Critically low 0.9-7.0 [facility] Comment on above: Performed By: #### C BC #### [facility] [address] [place] [address] Dr. Jessie Lomax Erythrocyte distribution width (RBC) [Ratio] 13.6 % Normal 11.0-15.0 [facility] Comment on above: Performed By: #### C BC #### [facility] [address] [place] [address] Dr. Jessie Lomax Hematocrit (Bld) [Volume fraction] 47.4 % Normal 42.0-54.0 [facility] Comment on above: Performed By: #### C BC #### [facility] [address] [place] [address] Dr. Jessie Lomax Hemoglobin (Bld) [Mass/Vol] 16.0 g/dL Normal 14.0-18.0 [facility] Comment on above: Performed By: #### C BC #### [facility] [address] [place] [address] Dr. Jessie Lomax IG # 0.03 10e3/ul Normal 0.00-0.03 [facility] Comment on above: Performed By: #### C BC #### [facility] [address] [place] [address] Dr. Jessie Lomax IG % 0.3 % Normal 0.0-0.5 [facility] Comment on above: Performed By: #### C BC #### [facility] [address] [place] [address] Dr. Jessie Lomax LYMPH # 0.5 103/ul Critically low 1.2-3.8 [facility] Comment on above: Performed By: #### C BC #### [facility] [address] [place] [address] Dr. Jessie Lomax Lymphocytes/100 WBC (Bld) 5.4 % Critically low 20.5-60.0 [facility] Comment on above: Performed By: #### C BC #### [facility] [address] [place] [address] Dr. Jessie Lomax MANUAL DIFF REQ NO Normal [facility] Comment on above: Performed By: #### C BC #### [facility] [address] [place] [address] Dr. Jessie Lomax MCH (RBC) [Entitic mass] 31.7 pg Normal 25.9-34.0 [facility] Comment on above: Performed By: #### C BC #### [facility] [address] [address] [address] Jessie Lomax MCHC (RBC) [Mass/Vol] 33.8 g/dL Normal 29.9-35.2 [facility] Comment on above: Performed By: #### C BC #### [facility] [address] [address] [address] Jessie Lomax MCV (RBC) [Entitic vol] 93.9 fL Normal 80.0-94.0 [facility] Comment on above: Performed By: #### C BC #### [facility] [address] [address] [address] Jessie Lomax MONO # 0.2 103/ul Critically low 0.3-0.8 [facility] Comment on above: Performed By: #### C BC #### [facility] [address] [place] [address] Dr. Jessie Lomax Monocytes/100 WBC (Bld) 2.4 % Normal 1.7-12.0 [facility] Comment on above: Performed By: #### C BC #### [facility] [address] [place] [address] Dr. Jessie Lomax NEUT # 9.1 103/ul Critically high 1.4-6.5 [facility] Comment on above: Performed By: #### C BC #### [facility] [address] [place] [address] Dr. Jessie Lomax Neutrophils/100 WBC (Bld) 91.4 % Critically high 43.0-75.0 [facility] Comment on above: Performed By: #### C BC #### [facility] [address] [place] [address] Dr. Jessie Lomax Platelet mean volume (Bld) [Entitic vol] 9.5 fL Normal 9.5-13.5 [facility] Comment on above: Performed By: #### C BC #### [facility] [address] [place] [address] Dr. Jessie Lomax PLT 303 103/ul Normal 150-450 [facility] Comment on above: Performed By: #### C BC #### [facility] [address] [place] [address] Dr. Jessie Lomax RBC 5.05 106/ul Normal 4.70-6.10 [facility] Comment on above: Performed By: #### C BC #### [facility] [address] [place] [address] Dr. Jessie Lomax WBC 10.0 103/ul Normal 4.0-11.0 [facility] Comment on above: Performed By: #### C BC #### [facility] [address] [place] [address] Dr. Jessie Lomax Covid-19 PCR ([facility])on SARS-CoV-2 (COVID-19) RNA YOLANDA+probe Ql (Unsp spec) Not detected Normal NOT DETECTED [facility] Comment on above: Result Comment: When [...] for this test is supported by the [place] [employer] and [employer]'s declaration that [...] used). Performed By: #### B [id number] #### [facility] [address] [place] [address] Dr. Jessie Lomax PROF 14(COMP METB)on 022 Albumin [Mass/Vol] 3.9 g/dL Normal 3.4-5.0 [facility] Comment on above: Performed By: #### C BC #### [facility] [address] [place] [address] Dr. Jessie Lomax Albumin/Globulin [Mass ratio] 1.1 {ratio} Normal [facility] Comment on above: Performed By: #### C BC #### [facility] [address] [place] [address] Dr. Jessie Lomax ALP [Catalytic activity/Vol] 81 U/L Normal 46-116 [facility] Comment on above: Performed By: #### C BC #### [facility] [address] [address] [address] Jessie Lomax ALT [Catalytic activity/Vol] 26 U/L Normal 16-63 [facility] Comment on above: Performed By: #### C BC #### [facility] [address] [address] [address] Jessie Lomax Anion gap [Moles/Vol] 14.5 mmol/L Normal [facility] Comment on above: Performed By: #### C BC #### [facility] [address] [place] [address] Dr. Jessie Lomax AST [Catalytic activity/Vol] 7 U/L Critically low 15-37 [facility] Comment on above: Performed By: #### C BC #### [facility] [address] [address] [address] Jessie Lomax Bilirubin [Mass/Vol] 0.3 mg/dL Normal 0.2-1.0 [facility] Comment on above: Performed By: #### C BC #### [facility] [address] [address] [address] Jessie Lomax Calcium [Mass/Vol] 9.2 mg/dL Normal 8.5-10.1 [facility] Comment on above: Performed By: #### C BC #### [facility] [address] [address] [address] Jessie Lomax Chloride [Moles/Vol] 101 mmol/L Normal 98-107 [facility] Comment on above: Performed By: #### C BC #### [facility] [address] [address] [address] Jessie Lomax CO2 [Moles/Vol] 26.1 mmol/L Normal 21.0-32.0 [facility] Comment on above: Performed By: #### C BC #### [facility] [address] [address] [address] Jessie Lomax Creatinine [Mass/Vol] 1.50 mg/dL Critically high 0.70-1.30 [facility] Comment on above: Performed By: #### C BC #### [facility] [address] [address] [address] Jessie Lomax EGFR-AF ERITREAN 57 mL/min/1.73m2 Critically low >=60 [facility] Comment on above: Performed By: #### C BC #### [facility] [address] [address] [address] Jessie Lomax EGFR-NON AF ERITREAN 47 mL/min/1.73m2 Critically low >=60 [facility] Comment on above: Performed By: #### C BC #### [facility] [address] [address] [address] Jessie Lomax Globulin (S) [Mass/Vol] 3.4 g/dL Normal [facility] Comment on above: Performed By: #### C BC #### [facility] [address] [address] [address] Jessie Lomax Glucose [Mass/Vol] 264 mg/dL Critically high 74-106 [facility] Comment on above: Performed By: #### C BC #### [facility] [address] [address] [address] Jessie Lomax Potassium [Moles/Vol] 4.6 mmol/L Normal 3.5-5.1 [facility] Comment on above: Performed By: #### C BC #### [facility] [address] [address] [address] Jessie Lomax Protein [Mass/Vol] 7.3 g/dL Normal 6.4-8.2 [facility] Comment on above: Performed By: #### C BC #### [facility] [address] [address] [address] Jessie Lomax Sodium [Moles/Vol] 137 mmol/L Normal 136-145 [facility] Comment on above: Performed By: #### C BC #### [facility] [address] [place], [place] [address] Dr. Jessie Lomax Urea nitrogen [Mass/Vol] 20.0 mg/dL Critically high 7.0-18.0 [facility] Comment on above: Performed By: #### C BC #### [facility] [address] [place], [place] [address] Dr. Jessie Lomax Urea nitrogen/Creatinine [Mass ratio] 13.3 mg/mg Normal [facility] Comment on above: Performed By: #### C BC #### [facility] [address] [place], [place] [address] Dr. Jessie Lomax XR CHEST 1 Von [...] GERARD WOLFF Date: 2022-03-19 00:11 Normal [facility] Cardiovascular Lab Reporton 12-29-2018 Cardiovascular Lab Report [facility]: [id number] Physician: Calli Devlin Department of M.D. Medicine Service Date: 12/28/2018 Division of Birthdate: 1960 Cardiology Room #: Adult Cardiovascular Services [address] [place] [address] Cardiovascular Laboratory Report FINAL IMPRESSIONS: 1. Nonobstructive [...] 6. Follow up with me in the [facility] in the next 2-4 weeks. 7. Follow up with Dr. Cowart as scheduled. PROCEDURES: Ultrasound-guided access to the right common femoral vein and artery, right heart catheterization, bilateral selective coronary angiography, left heart catheterization, left ventriculography, limited femoral angiogram, placement of a 6-Luxembourger MynxGrip closure device. METHODS: After risks, benefits, and alternatives were explained, written informed consent was obtained. The patient was prepped and draped in usual sterile fashion over the right groin. Using 1% lidocaine solution, local infiltration anesthesia was achieved. Using a modified Seldinger technique and under ultrasound guidance access to the right common femoral vein and artery was obtained and 6-Luxembourger 11 cm sheath placed in each. Limited [...] the procedure. All catheters were removed. A 6-Luxembourger MynxGrip closure device was deployed per protocol achieving optimal hemostasis. Overall, the patient tolerated the procedure well. There were no overt complications. He was to be [facility] in stable condition. FINDINGS: Hemodynamics: RA [...] Devlin M.D. Date Trans: 12/29/2018 04:14 Marek/rosetta [id number] cc: Calli Devlin M.D. [address] [place] [address] ANNA NASH Normal [facility] Vital Signs Date Time Vital Sign Value Performing Clinician Facility 10-05-2024 13:44-0400 Heart rate 104 /min Pranay Bai MD Work Phone: [facility] 10-05-2024 13:44-0400 Respiratory rate 22 /min Pranay Bai MD Work Phone: [facility] 10-05-2024 12:00-0400 Body temperature 97.3 [degF] Pranay Bai MD Work Phone: [facility] 10-05-2024 12:00-0400 Diastolic blood pressure 79 mm[Hg] Pranay Bai MD Work Phone: [facility] 10-05-2024 12:00-0400 Inhaled oxygen flow rate 3 L/min Pranay Bai MD Work Phone: [facility] 10-05-2024 12:00-0400 SaO2% (BldA) [Mass fraction] 96 % Pranay Bai MD Work Phone: [facility] 10-05-2024 12:00-0400 Systolic blood pressure 126 mm[Hg] Pranay Bai MD Work Phone: [facility] 10-05-2024 04:57-0400 Body weight 106.6 kg rPanay Bai MD Work Phone: [facility] 10-04-2024 17:07-0400 Body height 175.26 cm Pranay Bai MD Work Phone: [facility] 10-04-2024 14:00-0400 Diastolic blood pressure 81 mm[Hg] Pranay Bai MD Work Phone: [facility] 10-04-2024 14:00-0400 Heart rate 106 /min Pranay Bai MD Work Phone: [facility] 10-04-2024 14:00-0400 Inhaled oxygen flow rate 4 L/min Pranay Bai MD Work Phone: [facility] 10-04-2024 14:00-0400 Respiratory rate 30 /min Pranay Bai MD Work Phone: [facility] 10-04-2024 14:00-0400 SaO2% (BldA) [Mass fraction] 96 % Pranay Bai MD Work Phone: [facility] 10-04-2024 14:00-0400 Systolic blood pressure 148 mm[Hg] Pranay Bai MD Work Phone: [facility] 10-03-2024 22:30-0400 Body height 175.26 cm Pranay Bai MD Work Phone: [facility] 10-03-2024 22:30-0400 Body temperature 97.9 [degF] Pranay Bai MD Work Phone: [facility] 10-03-2024 22:30-0400 Body weight 109.5 kg Pranay Bai MD Work Phone: [facility] 11-11-2023 14:15-0400 Body height 175.26 cm [facility] 11-11-2023 14:15-0400 Body mass index (BMI) [Ratio] 37 kg/m2 [facility] 11-11-2023 14:15-0400 Body weight 113.85 kg [facility] 11-11-2023 14:15-0400 Diastolic blood pressure 102 mm[Hg] [facility] 11-11-2023 14:15-0400 Heart rate 96 /min [facility] 11-11-2023 14:15-0400 SaO2% (BldA) [Mass fraction] 92 % [facility] 11-11-2023 14:15-0400 Systolic blood pressure 149 mm[Hg] [facility] 09-15-2023 11:02-0500 Body height 175.26 cm [facility] 09-15-2023 11:02-0500 Body mass index (BMI) [Ratio] 38.2 kg/m2 [facility] 09-15-2023 11:02-0500 Body weight 117.59 kg [facility] 09-15-2023 11:02-0500 Diastolic blood pressure 87 mm[Hg] [facility] 09-15-2023 11:02-0500 Heart rate 113 /min [facility] 09-15-2023 11:02-0500 SaO2% (BldA) [Mass fraction] 97 % [facility] 09-15-2023 11:02-0500 Systolic blood pressure 158 mm[Hg] [facility] 06-27-2023 11:00-0500 Body height 175.26 cm Bryon Cowart Other [facility] Other 06-27-2023 11:00-0500 Body mass index (BMI) [Ratio] 37.8 kg/m2 Bryon Cowart Other [facility] Other 06-27-2023 11:00-0500 Body weight 116.12 kg Bryon Cowart Other [facility] Other 06-27-2023 11:00-0500 Diastolic blood pressure 88 mm[Hg] Bryon Cowart Other [facility] Other 06-27-2023 11:00-0500 SaO2% (BldA) [Mass fraction] 92 % Bryon Cowart Other [facility] Other 06-27-2023 11:00-0500 Systolic blood pressure 134 mm[Hg] Bryon Cowart Other [facility] Other 03-03-2023 15:00-0400 Body height 175.26 cm Bryon Cowart Other [facility] Other 03-03-2023 15:00-0400 Body mass index (BMI) [Ratio] 38.69 kg/m2 Bryon Cowart Other [facility] Other 03-03-2023 15:00-0400 Body weight 118.84 kg Bryon Cowart Other [facility] Other 03-03-2023 15:00-0400 Diastolic blood pressure 82 mm[Hg] Bryon Cowart Other [facility] Other 03-03-2023 15:00-0400 Systolic blood pressure 157 mm[Hg] Bryon Cowart Other [facility] Other 12-30-2022 14:30-0400 Body height 175.26 cm Bryon Cowart Other [facility] Other 12-30-2022 14:30-0400 Body mass index (BMI) [Ratio] 39.57 kg/m2 Bryon Cowart Other [facility] Other 12-30-2022 14:30-0400 Body weight 121.56 kg Bryon Cowart Other [facility] Other 12-30-2022 14:30-0400 Diastolic blood pressure 85 mm[Hg] Bryon Cowart Other [facility] Other 12-30-2022 14:30-0400 SaO2% (BldA) [Mass fraction] 95 % Bryon Cowart Other [facility] Other 12-30-2022 14:30-0400 Systolic blood pressure 147 mm[Hg] Bryon Cowart Other [facility] Other 09-02-2022 14:00-0500 Body height 175.26 cm Bryon Cowart Other [facility] Other 09-02-2022 14:00-0500 Body mass index (BMI) [Ratio] 38.69 kg/m2 Bryon Cowart Other [facility] Other 09-02-2022 14:00-0500 Body weight 118.84 kg Bryon Cowart Other [facility] Other 09-02-2022 14:00-0500 Diastolic blood pressure 84 mm[Hg] Bryon Cowart Other [facility] Other 09-02-2022 14:00-0500 Respiratory rate 60 /min Bryon Cowart Other [facility] Other 09-02-2022 14:00-0500 SaO2% (BldA) [Mass fraction] 91 % Bryon Cowart Other [facility] Other 09-02-2022 14:00-0500 Systolic blood pressure 142 mm[Hg] Bryon Cowart Other [facility] Other Encounters Encounter Date Encounter Type Care Provider Facility Start: 03-20-2025 ambulatory Joo Jaimes ty:MELISSA Hardy Start: 03-13-2025 End: 03-13-2025 Telephone encounter Leslye Mclean MD Work Phone: Pulmonary Medicine Start: 03-12-2025 End: 03-12-2025 Telephone encounter Leslye Mclean MD Work Phone: Pulmonary Medicine Start: 03-11-2025 End: 03-11-2025 Patient encounter procedure [facility] Rej Work Phone: Pulmonary Medicine Comment on above: Spirometry Start: 03-11-2025 End: 03-11-2025 ambulatory LESLYE VINAY Facility:[facility] [place] Start: 03-11-2025 End: 03-11-2025 Patient encounter procedure [facility] Rej 2 Work Phone: Pulmonary Medicine Comment on above: Spirometry Start: 03-11-2025 End: 03-11-2025 ambulatory LESLYE VINAY Facility:[facility] [place] Start: 02-19-2025 End: 02-19-2025 ambulatory SARAH Marek QURESHISHIKHA Facility:[facility] Start: 02-19-2025 End: 02-19-2025 ambulatory [facility] Facility:[facility] Jaz richey Start: 02-06-2025 ambulatory Joo YIP Facili ty:[facility] Start: 01-24-2025 End: 01-24-2025 ambulatory EHAB [facility] Start: 11-28-2024 End: 11-28-2024 ambulatory Joo YIP Facility:[facility] Start: 11-28-2024 End: 11-28-2024 Patient encounter procedure Joo YIP [facility] Start: 11-01-2024 ambulatory Joo YIP Facility :[facility] Start: 10-25-2024 End: 10-25-2024 Lab Drop off SARAH A SHIKHA [facility] Start: 10-25-2024 End: 10-25-2024 ambulatory CUPOLA MAN SARAH A SHIKHA Facility:[facility] Start: 10-11-2024 End: 10-11-2024 ambulatory CUPOLA MAN SARAH A SHIKHA Facility:[facility] Start: 10-08-2024 End: 10-26-2024 ambulatory CUPOLA MAN SARAH A SHIKHA Facility:[id number] Start: 10-04-2024 End: 10-05-2024 Evaluation and management of inpatient Pranay Bai MD Work Phone: [facility] Work Phone: Start: 08-20-2024 Non-patient / Non-visit Pranay Bai MD Work Phone: [facility] Work Phone: Start: 06-21-2024 End: 06-21-2024 ambulatory CUPOLA MAN SARAH A SHIKHA Facility:[facility] Start: 06-19-2024 End: 06-19-2024 ambulatory CUPOLA MAN SARAH A SHIKHA Facility:[facility] Start: 06-04-2024 End: 06-04-2024 ambulatory CUPOLA MAN SARAH A SHIKHA Facility:[facility] Start: 05-22-2024 End: 05-22-2024 ambulatory CUPOLA MAN SARAH A SHIKHA Facility:[facility] Start: 05-08-2024 End: 05-08-2024 ambulatory CUPOLA MAN SARAH A SHIKHA Facility:[facility] Start: 04-30-2024 End: 05-14-2024 ambulatory CUPOLA MAN SARAH A SHIKHA Facility:[id number] Start: 04-24-2024 End: 04-24-2024 ambulatory CUPOLA MAN SARAH A SHIKHA Facility:[facility] Start: 01-24-2024 End: 01-24-2024 Lab Drop off SARAH A SHIKHA [facility] Start: 11-11-2023 End: 11-11-2023 ambulatory [facility] Work Phone: Start: 11-11-2023 End: 11-11-2023 Patient encounter procedure [facility] Physician [facility] Work Phone: Start: 10-03-2023 Non-patient / Non-visit [facility] Phys[facility] Work Phone: Start: 09-15-2023 End: 09-15-2023 Patient encounter procedure [facility]ician [facility] Work Phone: Start: 08-26-2023 End: 08-26-2023 ambulatory Bryon Cowart Other [facility] Other Start: 08-26-2023 Telephone encounter Bryon Cowart [facility] Start: 08-04-2023 End: 08-04-2023 ambulatory Bryon Cowart Other [facility] Other Start: 08-04-2023 Telephone encounter Bryon Cowart [facility] Start: 08-03-2023 End: 08-03-2023 ambulatory Bryon Cowart Other [facility] Other Start: 08-03-2023 Telephone encounter Bryon Cowart [facility] Start: 07-19-2023 End: 07-19-2023 ambulatory Bryon Cowart Other [facility] Other Start: 07-19-2023 Telephone encounter Bryon Cowart [facility] Start: 07-12-2023 End: 07-12-2023 ambulatory Bryon Cowart Other [facility] Other Start: 07-12-2023 Telephone encounter Bryon Cowart [facility] Start: 07-07-2023 End: 07-07-2023 ambulatory Bryon Cowart Other [facility] Other Start: 07-07-2023 Telephone encounter Bryon Cowart [facility] Start: 07-04-2023 End: 07-04-2023 ambulatory Bryon Cowart Other [facility] Other Start: 07-04-2023 Telephone encounter Bryon Cowart [facility] Start: 06-30-2023 End: 06-30-2023 ambulatory Bryon Cowart Other [facility] Other Start: 06-30-2023 Telephone encounter Bryon Cowart [facility] Start: 06-27-2023 End: 06-27-2023 ambulatory Bryon Cowart Other [facility] Other Start: 06-27-2023 Office outpatient vi sit 25 minutes Bryon Cowart [facility] Start: 06-27-2023 Telephone encounter Bryon Cowart [facility] Start: 06-24-2023 End: 06-24-2023 ambulatory Bryon Cowart Other [facility] Other Start: 06-24-2023 Telephone encounter Bryon Cowart [facility] Start: 06-13-2023 End: 06-13-2023 ambulatory Bryon Cowart Other [facility] Other Start: 06-13-2023 Telephone encounter Bryon Cowart [facility] Start: 06-03-2023 End: 06-03-2023 ambulatory Bryon Cowart Other [facility] Other Start: 06-03-2023 Telephone encounter Bryon Cowart [facility] Start: 05-31-2023 End: 05-31-2023 ambulatory Bryon Cowart Other [facility] Other Start: 05-31-2023 Telephone encounter Bryon Cowart [facility] Start: 05-09-2023 End: 05-09-2023 ambulatory Bryon Cowart Other [facility] Other Start: 05-09-2023 Telephone encounter Bryon Cowart [facility] Start: 04-25-2023 Telephone encounter Yaima Meraz RN Pulmonary Medicine Comment on above: Closing Referral Start: 04-13-2023 End: 04-13-2023 ambulatory Bryon Cowart Other [facility] Other Start: 04-13-2023 Telephone encounter Bryon Cowart [facility] Start: 03-14-2023 End: 03-14-2023 ambulatory Bryon Cowart Other [facility] Other Start: 03-14-2023 Telephone encounter Bryon Cowart [facility] Start: 03-11-2023 End: 03-11-2023 ambulatory Bryon Cowart Other [facility] Other Start: 03-11-2023 Telephone encounter Bryon Cowart [facility] Start: 03-10-2023 Telephone encounter Yaima Meraz RN Pulmonary Medicine Comment on above: Follow up on Lung Tr ansplant Referral Start: 03-08-2023 End: 03-08-2023 ambulatory Bryon Cowart Other [facility] Other Start: 03-08-2023 Telephone encounter Bryon Cowart [facility] Start: 03-03-2023 End: 03-03-2023 ambulatory Bryon Cowart Other [facility] Other Start: 03-03-2023 Office outpatient vi sit 15 minutes Bryon Cowart [facility] Start: 02-10-2023 End: 02-10-2023 ambulatory Bryon Cowart Other [facility] Other Start: 02-10-2023 Telephone encounter Bryon Cowart [facility] Start: 12-30-2022 End: 12-30-2022 ambulatory Bryon Cowart Other [facility] Other Start: 12-30-2022 Office outpatient vi sit 25 minutes Bryon Cowart [facility] Start: 12-30-2022 Telephone encounter Bryon Cowart [facility] Start: 12-22-2022 End: 12-22-2022 ambulatory Bryon Cowart Other [facility] Other Start: 12-22-2022 Telephone encounter Bryon Cowart [facility] Start: 11-12-2022 End: 11-12-2022 ambulatory Bryon Cowart Other [facility] Other Start: 11-12-2022 Telephone encounter Bryon Cowart [facility] Start: 10-12-2022 End: 10-12-2022 ambulatory Rubén Pina Other [facility] Other Start: 10-12-2022 Telephone encounter Rubén Pina [facility] Start: 10-05-2022 End: 10-05-2022 ambulatory Bryon Cowart Other [facility] Other Start: 10-05-2022 Telephone encounter Bryon Cowart [facility] Start: 10-03-2022 End: 10-04-[address] BRYON COWART Facility: Start: 09-27-2022 End: 09-27-2022 ambulatory Bryon Cowart Other [facility] Other Start: 09-27-2022 Telephone encounter Bryon Cowart [facility] Start: 09-15-2022 End: 09-15-2022 ambulatory Bryon Cowart Other [facility] Other Start: 09-15-2022 Telephone encounter Bryon Cowart [facility] Start: 09-02-2022 End: 09-02-2022 ambulatory Bryon Cowart Other [facility] Other Start: 09-02-2022 Office outpatient vi sit 15 minutes Bryon Cowart [facility] Start: 08-29-2022 End: 08-30-[address] EVERETTE MONTAGUE . Facility:[facility]1 Start: 08-20-2022 End: 08-20-2022 ambulatory Bryon Cowart Other [facility] Other Start: 08-20-2022 Telephone encounter Bryon Cowart [facility] Start: 08-17-2022 End: 08-17-2022 ambulatory SHAIKH Jose SMITHLILY Facility:[facility] Start: 08-17-2022 ambulatory VANDA GONZALEZ . Facility :[facility] Start: 08-10-2022 End: 08-11-2022 ambulatory VANDA GONZALEZ . Facility:[facility] Start: 08-09-2022 End: 08-09-2022 ambulatory Bryon Cowart Other [facility] Other Start: 08-09-2022 Telephone encounter Bryon Cowart [facility] Start: 07-22-2022 End: 07-22-2022 ambulatory Bryon Cowart Other [facility] Other Start: 07-22-2022 Telephone encounter Bryon Cowart [facility] Start: 07-01-2022 End: 07-02-2022 ambulatory [...] Update Start: 11-04-2021 Telephone encounter Molly trinidad [employer] Work Phone: Pulmonary Medicine Comment on above: Missed appointments Start: 11-03-2021 Orders Only Molly augirre [employer]NER[employer] Work Phone: Pulmonary Medicine Comment on above: Chronic obstructive pulmonary disease, unspecified COPD type (HCC) (Primary Dx); 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) Start: 12-28-2018 End: 12-29-2018 Patient encounter procedure [facility] Facility[facility] Procedures Date Procedure Procedure Detail Performing Clinician Start: 03-11-2025 Plethysmography lung volumes w/wo airway resist Leslye Mclean MD Work Phone: Start: 03-11-2025 Brncdilat rspse spmt ry pre&post-brncdilat admn Leslye Mclean MD Work Phone: Start: 10-04-2024 Respiratory Panel (PCR) Pranya Bai MD Work Phone: Start: 10-03-2024 Plain chest X-ray Darrius Bai MD Work Phone: Cardiac catheter (ph ysical object) SARAH TRIVEDI Comment on above: 2022 Plan of Treatment Date Care Activity Detail Author Start: 05-10-2025 End: 05-10-2025 Patient encounter procedure Pulmonary Medicine Comment on above: Chronic obstructive pulmonary disease, unspecified COPD type (HCC) [J44.9] Start: 03-18-2025 Influenza vaccination Influenza Vacc ine (#1) [facility] Start: 11-04-2024 Advance Directive Discussion Advance Directive Discussion [facility] Start: 10-13-2024 [facility] Start: 10-12-2024 [facility] Start: 10-11-2024 [facility] Start: 10-10-2024 [facility] Start: 10-09-2024 [facility] Start: 10-08-2024 [facility] Start: 10-07-2024 [facility] Start: 10-06-2024 [facility] Start: 10-05-2024 End: 10-05-2024 [facility] Start: 10-04-2024 Administration of prophylactic treatment [facility] Start: 10-04-2024 Respiratory Panel (PCR) Respiratory Panel (PCR) [facility] Start: 10-04-2024 [facility] Start: 10-04-2024 [facility] Start: 10-04-2024 Hospital admission [facility] Start: 07-18-2024 Medicare Advantage Annual Wellness Visit Medicare [facility] Annual Wellness Visit [facility] Start: 03-18-2023 Influenza vaccination [facility] Start: 03-24-2022 Hepatitis B surface antibody level LDL CHOLESTEROL [facility] Start: 03-18-2022 Influenza vaccination INFLUENZ A (Season Ended) [facility] Start: 11-04-2021 End: 01-04-2022 HEPATITIS A ANTIBODY, IGG HEPATITIS A ANTIBODY, IGG Lab Routine Chronic obstructive pulmonary disease, unspecified COPD type (HCC) Lung transplant candidate Expected: 11/04/2021, Expires: 01/04/2022 [facility] Work Phone: Comment on above: Expected: 11/04/2021 , Expires: 01/04/2022 Start: 11-03-2021 End: 11-03-2022 ARTERIAL BLOOD GASES ARTERIAL BLOOD GASES Lab Routine Cpucx-9-bhsoamlgbbr deficiency (HCC) Expected: 11/03/2021, Expires: 11/03/2022 [facility] Work Phone: Comment on above: Expected: 11/03/2021 , Expires: 11/03/2022 Start: 2019 RSV Vaccine (1 - Ris k 60-74 years 1-dose series) RSV Vaccine (1 - Risk 60-74 years 1-dose series) [facility] Start: 07-05-2018 Pneumococcal Vaccine : 50+ (2 of 2 - PPSV23, PCV20, or PCV21) Pneumococcal Vaccine: 50+ (2 of 2 - PPSV23, PCV20, or PCV21) [facility] Start: 11-04-2014 PROSTATE CANCER SCREENING DISCUSSION PROSTATE CANCER SCREENING DISCUSSION [facility] Start: 11-04-2009 SHINGRIX VACCINE (1 of 2) SHINGRIX VACCINE (1 of 2) [facility] Start: 11-04-2004 COLOGUARD (FIT-DNA) COLOGUARD (FIT-D NA) [facility] Start: 11-04-2004 Colonoscopy COLONOSCOPY [facility] Start: 11-04-2004 COLORECTAL CANCER SCREENING COLORECTAL CANCER SCREENING [facility] Start: 11-04-[address] COLONOGRAPHY [facility] Start: 11-04-2004 FECAL OCCULT BLOOD FECAL OCCULT BLOO D [facility] Start: 11-04-2004 Prostate specific antigen measurement Prostate Cancer Screening Discussion [facility] Start: 11-04-2004 Screening for malign ant neoplasm of colon [facility] Start: 11-04-2004 SIGMOIDOSCOPY SIGMOIDOSCOPY [facility] Start: 11-04-1989 Zoledronic acid therapy ALPHA- 1 ANTITRYPSIN DEFICIENCY SCREENING [facility] Start: 11-04-1978 ADULT PREVNAR-13 ADULT PREVNAR-13 Cl [facility] Start: 11-04-1978 HEPATITIS A (1 of 2 - Risk 2-dose series) HEPATITIS A (1 of 2 - Risk 2-dose series) [facility] Start: 11-04-1978 Hepatitis A Vaccine (1 of 2 - Risk 2-dose series) Hepatitis A Vaccine (1 of 2 - Risk 2-dose series) [facility] Start: 11-04-1978 SHINGRIX VACCINE (1 of 2) SHINGRIX VACCINE (1 of 2) [facility] Start: 11-04-1978 TWO PNEUMOVAX 5 YEAR S APART PRIOR TO AGE 65 (#1) TWO PNEUMOVAX 5 YEARS APART PRIOR TO AGE 65 (#1) [facility] Start: 11-04-1978 Urine microalbumin profile [facility] Start: 11-04-1977 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 DISEASE VISIT ANNUAL PCP TEAM CHRONIC DISEASE VISIT [facility] Start: 11-04-1977 Anxiety Screening Anxiety Screening [facility] Start: 11-04-1977 BP CONTROLLED (<130/80) BP CONTROLLE D (<130/80) [facility] Start: 11-04-1969 3 comp foot exam completed DIABETIC FOOT EXAM [facility] Start: 11-04-1969 Diabetic foot examination Diabetic Foot Exam [facility] Start: 11-04-1969 Glaucoma screening Dilated Retinal E xam [facility] Start: 11-04-1969 Hepatitis B screening URINE ALBUMIN:CREATININE RATIO [facility] Start: 11-04-1969 Hepatitis C antibody , confirmatory test DILATED RETINAL EXAM [facility] Start: 11-04-1965 PNEUMOCOCCAL (1 - PCV) PNEUMOCOCCAL (1 - PCV) [facility] Start: 11-04-1965 Pneumococcal vaccination Pneum ococcal Vaccine (1 - PCV) [facility] Start: 11-04-1964 COVID-19 VACCINE (1) COVID-19 VACCIN E (1) [facility] Start: 11-04-1964 Hemoglobin A1c measurement HbA1C [facility] Start: 11-04-1964 Hemoglobin A1c/Hemoglobin.total in Blood HBA1C [facility] Start: 11-04-1960 HEPATITIS A (1 of 2 - Risk 2-dose series) HEPATITIS A (1 of 2 - Risk 2-dose series) [facility] Start: 05-06-1960 COVID-19 VACCINE (#1) COVID-19 VACCI NE (#1) [facility] Anion gap measurement [facility] Basophils [#/volume] in Blood by Automated count [facility] Basophils/100 leukoc ytes in Blood by Automated count [facility] Eosinophils/100 leukocytes in Blood by Automated count [facility] Erythrocyte distribu tion width [Ratio] by Automated count [facility] Erythrocytes [#/volu me] in Blood [facility] Hematocrit [Volume Fraction] of Blood [facility] Hemoglobin [Mass/vol ume] in Blood [facility] Leukocytes [#/volume ] corrected for nucleated erythrocytes in Blood by Automated coun [facility] Leukocytes [#/volume ] in Blood [facility] LUNG DIFFUSION CAPAC ITY (DLCO) LUNG DIFFUSION CAPACITY (DLCO) PFT Routine Chronic obstructive pulmonary disease, unspecified COPD type (HCC) 03/11/2025 12:26 PM EDT [facility] Work Phone: LUNG VOLUMES LUNG VOLUMES PFT Routine Chronic obstructive pulmonary disease, unspecified COPD type ([facility]) 03/11/2025 2:24 PM EDT [facility] Work Phone: Lymphocytes [#/volum e] in Blood by Automated count [facility] Lymphocytes/100 leukocytes in Blood by Automated count [facility] MCH [Entitic mass] b y Automated count [facility] MCHC [Mass/volume] b y Automated count [facility] MCV [Entitic volume] by Automated count [facility] Monocytes [#/volume] in Blood by Automated count [facility] Monocytes/100 leukoc ytes in Blood by Automated count [facility] Neutrophils [#/volum e] in Blood by Automated count [facility] Neutrophils/100 leukocytes in Blood by Automated count [facility] Nucleated erythrocyt es [Presence] in Blood by Automated count [facility] Patient Education Azithromycin ( Systemic) Cephalexin Know your Meds [facility] COVID-19 Discharge Instructions [facility] Work Phone: Patient referral [facility] Work Phone: Platelet mean volume [Entitic volume] in Blood by Automated count [facility] Platelets [#/volume] in Blood [facility] Respiratory pathogen s DNA and RNA panel - Nasopharynx by YOLANDA with non-probe detection [facility] SPIROMETRY WITH DILA TOR IF OBSTRUCTED SPIROMETRY WITH DILATOR IF OBSTRUCTED PFT Routine Chronic obstructive pulmonary disease, unspecified COPD type ([facility]) 03/11/2025 12:26 PM EDT [facility] Work Phone: [facility] Immunizations Immunization Date Immunization Notes Care Provider Fa avera [facility] 04-30-2024 influenza virus vaccine, unspecified formulation SARAH TRIVEDI [facility] 05-16-2020 influenza virus vaccine, unspecified formulation Yaima Meraz RN [facility] 05-10-2018 influenza virus vaccine, unspecified formulation SARAH TRIVEDI [facility] 05-10-2018 pneumococcal conjuga te vaccine, 13 valent SARAH SHIKHA [facility] Payers Date Payer Category Payer Medicare (Managed Care) TEREZA Ames HARI MARTÍNEZ HMO [id number] 2025 Unknown [id number] 2024 Private Health Insurance [id number] 2024 Private Health Insurance [id number] 2023 Medicare [id number] 2022 Medicare [id number] 2.16.840.1.544981.19 2018 Unknown TEREZA WICK DAVE SCHWAB PPO [id number] 2018-Present [phone] [address] [place] [address] O [id number] [id number]. [id number] 2018 Unknown [id number]. 1.13.159.2. 7.3.936896.315 1959 Unknown [id number] 2.16.840.1.017394.3.579.2. 647 1959 Unknown [id number] 2.16.840.1.505072.3.579.2. 593 1959 Unknown [id number] 2.16.840.1.930376.3.579.2. 593 1959 Unknown [id number] 2.16.840.1.377952.3.579.2. 593 1959 Unknown [id number] 2.16.840.1.620009.3.579.2. 593 1959 Unknown [id number] 2.16.840.1.810111.3.579.2. 593 1959 Unknown [id number] 2.16.840.1.384189.3.579.2. 593 1959 Unknown [id number] 2.16.840.1.080801.3.579.2. 593 1959 Unknown [id number] 2.16.840.1.115314.3.579.2. 593 1959 Unknown [id number] 2.16.840.1.339625.3.579.2. 593 1959 Unknown [id number] 2.16.840.1.209852.3.579.2. 593 1959 Unknown [id number] 2.16.840.1.665993.3.579.2. 593 1959 Unknown [id number] 2.16.840.1.887585.3.579.2. 727 1959 Unknown [id number] 2.16.840.1.544316.3.579.2. 727 1959 Unknown [id number] 2.16.840.1.631339.3.579.2. 727 1959 Unknown [id number] 2.16.840.1.016299.3.579.2. 727 1959 Unknown [id number] 2.16.840.1.409521.3.579.2. 727 1959 Unknown [id number] 2.16.840.1.375844.3.579.2. 727 1959 Unknown [id number] 2.16.840.1.472863.3.579.2. 727 1959 Unknown [id number] 2.16.840.1.607153.3.579.2. 727 1959 Unknown [id number] 2.16.840.1.800088.3.579.2. 727 1959 Unknown [id number] 2.16.840.1.350104.3.579.2. 727 1959 Unknown [id number] 2.16.840.1.918112.3.579.2. 727 1959 Unknown [id number] 2.16.840.1.338548.3.579.2. 727 1959 Unknown [id number] 2.16.840.1.861665.3.579.2. 7 1959 Unknown [id number] 2.16.840.1.347890.3.579.2. 727 1959 Unknown [id number] 2.16.840.1.286466.3.579.2. 727 1959 Unknown [id number] 2.16.840.1.710246.3.579.2. 727 1959 Private Health Insurance [id number] 2.16.840.1.685845.19 1959 Self-pay [id number] 1959 Self-pay 1959 Unknown [id number] 1959 Unknown [id number] Medicaid Medicaid [id number] Unknown [id number] Unknown [id number] 2.16.840.1.786613.3.579.2. 531 Social History Date Type Detail [facility] Work Phone: Start: 1960 Sex Assigned At Not on file [facility] Start: 10-24-2021 End: 11-03-2021 Exposure to SARS-CoV-2 (event) Not sure [facility] Work Phone: Start: 03-18-2021 End: 03-11-2025 Sex Assigned At [facility] Start: 03-18-2021 End: 03-11-2025 History of Social function [facility] Start: 03-12-2020 National Score (1-10 0), lower number is lower risk Not on file [facility] [place] Comment on above: Patient is a former 2 pack a day smoker. Quit over 15 years ago. Start: 03-17-2021 Gender identity Identifies as male gender (finding) [facility] Start: 03-17-2021 Sexual orientation Heterosexual (fin ding) [facility] Start: 06-27-2023 End: 10-25-2024 Tobacco smoking status NHIS Ex-smoker (finding) [facility] Comment on above: Patient is a former 2 pack a day smoker. Quit over 15 years ago. Start: 1960 Sex Assigned At Male F [facility] Start: 10-04-2024 End: 10-05-2024 Sex Male (finding) [facility] Start: 10-05-2024 SDOH Follow up SDOH Follow up [facility] Work Phone: Sexual Orientation [facility] Goals Date Patient Goal Desired Activity /State Functional Status Date Assessment Result Facility 10-05-2024 Functional status Patient at Baseline [facility] Work Phone: Mental Status Date Assessment Result Facility 10-05-2024 Cognitive function Cognitive Sta tus Patient at Baseline [facility] Work Phone: Clinical Notes 11-04-2021 to 03-13-2025 Telephone Encounter - Sola Cole LPN - 03/13/2025 3:54 PM EDTTelephone Encounter - Sola Cole LPN - 03/13/2025 3:54 PM EDTTelephone Encounter - Francisco Sosa LPN - 03/12/2025 8:59 AM EDT Note Date & Type Note Facility 03-13-2025 Telephone encounter Note Images from the original note were not included. Message Received: 2 days ago Leslye Mclean MD [facility] Nurse Pls get pulmonary records from Dr. Gonzalez from [place] also get PFT echo and ct chest thanks Faxed CARLOS ENRIQUE request from [facility] with confirmation [facility] 03-13-2025 Miscellaneous Notes Images from the original note were not included. Message Received: 2 days ago Leslye Mclean MD [facility] Nurse Pls get pulmonary records from Dr. Gonzalez from [place] also get PFT echo and ct chest thanks Faxed CARLOS ENRIQUE request from [facility] with confirmation documented in this encounter [facility] 03-12-2025 Telephone encounter Note Leslye Mclean MD P [facility] Nurse BRIAN GET pap REPORT FROM [facility] Thanks Called and spoke with [facility], was informed pt needs to call to establish that Dr. Mclean is provider and they can send us information on the patient. Called and lvm x1 for pt. Sent MCM x1 [facility] 03-12-2025 Miscellaneous Notes Leslye Mclean MD P [facility] Nurse BRIAN GET pap REPORT FROM [facility] Thanks Called and spoke with [facility], was informed pt needs to call to establish that Dr. Mclean is provider and they can send us information on the patient. Called and lvm x1 for pt. Sent MCM x1 documented in this encounter [facility] 02-19-2025 Note Patient Education Infectious Disease Skin Yeast Infection A skin yeast infection is a condition in which there is an overgrowth of yeast (Sylvia) that normally lives on the skin. This condition usually occurs in areas of the skin that are constantly warm and moist, such as the skin under the breasts or armpits, or in the groin and other body folds. What are the causes? This condition is caused by a change in the normal balance of the yeast that live on the skin. What increases the risk? You are more likely to develop this condition if you: ??? Are obese. ??? Are . ??? Are 65 years of age or older. ??? Wear tight clothing. ??? Have any of the following conditions: ? Diabetes. ? Malnutrition. ? A weak body defense system (immune system). ??? Take medicines such as: ? control pills. ? Antibiotics. ? Steroid medicines. What are the signs or symptoms? The most common symptom of this condition is itchiness in the affected area. Other symptoms include: ??? A red, swollen area of the skin. ??? Bumps on the skin. How is this diagnosed? This condition is diagnosed with a medical history and physical exam. Your health care provider may check for yeast by taking scrapings of the skin to be viewed under a microscope. How is this treated? This condition is treated with medicine. Medicines may be prescribed or available over the counter. The medicines may be: ??? Taken by mouth (orally). ??? Applied as a cream or powder to your skin. Follow these instructions at home: ??? Take or apply qxlk-fkb-tqhzksa and prescription medicines only as told by your health care provider. ??? Maintain a healthy weight. If you need help losing weight, talk with your health care provider. ??? Keep your skin clean and dry. ??? Wear loose-fitting clothing. ??? If you have diabetes, keep your blood sugar under control. ??? Keep all follow-up visits. This is important. Contact a health care provider if: ??? Your symptoms go away and then come back. ??? Your symptoms do not get better with treatment. ??? Your symptoms get worse. ??? Your rash spreads. ??? You have a fever or chills. ??? You have new symptoms. ??? You have new warmth or redness of your skin. ??? Your rash is painful or bleeding. Summary ??? A skin yeast infection is a condition in which there is an overgrowth of yeast (Sylvia) that normally lives on the skin. ??? Take or apply nyqk-ugf-mxecakp and prescription medicines only as told by your health care provider. ??? Keep your skin clean and dry. ??? Contact a health care provider if your symptoms do not get better with treatment. This information is not intended to replace advice given to you by your health care provider. Make sure you discuss any questions you have with your health care provider. Document Revised: 09/22/2021 Document Reviewed: 09/22/2021 Digital Theatre Patient Education ? 2023 [email or web address]. [facility] 01-24-2025 Note [facility] Cardiology Clinic Note Chief Complaint: [...] oxygen dependent respiratory failure and uses oxygen zepqed-jqi-qvzdt. 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 [facility] 11-28-2024 Hospital Discharg e instructions Patient Education 11/28/2024 09:39:09 Prostatitis Prostatitis [...] Follow these instructions at home: Medicines Take rmtv-fvt-qzaprxn and prescription medicines only as told by [...] important. Where to find more information National [place] of Diabetes and Digestive and Kidney Diseases: [...] depends on the type of prostatitis. Take qrgt-ezd-xgsbpew and prescription medicines only as told by [...] provider. Document Revised: 05/19/2023 Document Reviewed: 05/19/2023 Digital Theatre Patient Education 2023 [email or web address]. 11/28/2024 09:31:37 Prostate Cancer Screening Prostate Cancer [...] treatment? Where to find more information [employer] [place] [employer]: www.cancer.org [place] [employer]: www.auanet.org Contact a health care [...] provider. Document Revised: 12/28/2021 Document Reviewed: 12/28/2021 Digital Theatre Patient Education 2023 [email or web address]. Follow Up Care 11/01/2024 14:15:46 With:PHI GOSS, Joo Mendoza, URL Address: [facility] [address], [place] [address]- When: Unknown [facility] 11-28-2024 Note Urology Office/Clini c Note HPI [...] Feels he empties completely. Nocturia sometimes 2x/night. [employer] Wellness Director reports urine is very strong smelling, likely dehydration however foul odor can indicate infection. Sports Fitness And Wellness Director feels his urine is foul smelling. 3. Chronic prostatitis (N41.1: Chronic prostatitis) See #1 and #2. -Start Doxycycline 100 mg bid x 3 wks. SEs discussed. Sent to [facility]. 4. Former smoker (Z87.891: Personal history of nicotine dependence) 36 yrs, 2 PPD. Increased risk for urothelial cancer. Follow-up With When Contact Information PHI GOSS, Joo Mendoza, URL [facility] [address], [place] [address]- Additional Instructions: 2 mos with PSA F&T (nurse visit) Patient Education Prostatitis Prostate Cancer Screening IEllen, personally scribed for Dr. Yip on 11/28/2024 09:39:31. . Documentation recorded by the scribe, Ellen Cowan, accurately reflects the services(s) I performed and decisions made by me. Authenticated by Dr. Yip on 11/28/2024 09:42:17. 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 [facility] Comment on above: Result Comment: Elec tronically Signed By: PHI GOSS, Joo Caraballo\Date and Time Signed: 11/28/24 09:45 EDT 11-28-2024 [...] these instructions at home: Medicines ??? Take ejmw-aer-mqykwhm and prescription medicines only as told by [...] This is important. (more content not included)... [facility] 10-25-2024 Note Patient Education Endocrinology Diabetes Mellitus [...] an expert trained in diabetes care (certified technician) can help you make an activity plan. [...] stroke). Where to find more information ??? [place] [employer]: diabetes.org ??? Association of Diabetes Care & Education Specialists: diabeteseducator.org This information is not intended to replace advice given to you by your health care provider. Make sure you discuss any questions you have with your health care provider. Document Revised: 12/22/2022 Document Reviewed: 12/22/2022 [employer] Patient Education ? 2023 [employer] [facility] 10-05-2024 Progress note Note Date/Time October 05, 2024 12:00am [facility] [address] [place] [address] Hospitalist Progress Note Signed Patient: Ricardo Hylton MR#: [id number] : 1960 Acct:[id number] Age/Sex: 63 / M Adm Date: 5 Loc: 3T Room: [address] [place] [address] Type: ADM IN Attending Dr: Eden Greenwood [...] 97 Nasal Cannula 3 10/04/24 08:00 10/04/24 12:10/04/24 12:10/04/24 12:00 10/04/24 12:00 10/04/24 12:10/04/24 12:00 Narrative: GEN: NAD, Cooperative NECK: ? [...] 10/04/24 09:00 10/04/24 08:21 Aspirin 81 Mg Tablet. PO 10/04/25 08:59 Not Given [...] mg PO 10/13/24 09:01 Not Given DAILY [facility] Dextrose 0 gm 10/04/24 02:37 Dextrose 50% [...] 600 Mg Tab.Er.12h PO 10/04/25 20:59 BID [facility] Ceftriaxone Sodium 1 gm in 50 mls @ 100 mls/hr 10/04/24 02:30 10/04/24 03:39 Rocephin IV 100 mls/hr Q24H [facility] Administration Remdesivir 100 mg/ Sodium 250 mls @ 250 mls/hr 10/05/24 09:00 Chloride IV 10/08/24 09:59 Q24H [facility] Insulin Aspart 0 units 10/04/24 17:00 Insulin Aspart 300 Units/3 Ml SUBCUT 10/04/25 16:59 TID.WM.[facility] Protocol Lisinopril 5 mg 10/04/24 09:00 10/04/24 08:21 Lisinopril 5 Mg Tablet PO 10/04/25 08:59 Not Given DAILY [facility] Metoprolol Succinate 25 mg 10/05/24 09:00 Metoprolol Succinate 25 Mg Tab.Er.24h PO 10/05/25 08:59 DAILY [facility] Pantoprazole Sodium 40 mg 10/04/24 09:00 10/04/24 08:22 Pantoprazole 40 Mg Tablet.Dr PO 10/04/25 08:59 Not Given DAILY [facility] Sodium Chloride 0 ml 10/03/24 22:43 10/04/24 [...] of chronic obstructive pulmonary disease (COPD): (2) Pnsug-2-ugnylqvcmqj deficiency: (3) Obstructive sleep apnea (adult) (pediatric): (4) Hypertension: Plan Documented By: Eden Greenwood MD 10/04/24 1438 Signed By: <Electronically signed by Eden Greenwood MD> 10/05/24 0000 [facility] Work Phone: 1(382) 958-966503-21-2025 [place] [address] Hospitalist Progress Note Signed Patient: Ricardo Hylton MR#: [id number] : 1960 Acct:[id number] Age/Sex: 63 / M Adm Date: 5 Loc: Room: [address] [place] [address] Type: ADM IN Attending Dr: Edne Greenwood MD Copies to: ~ Date of [...] Dose Route Start Last Admin Trade Name Robertq PRN Reason Stop Dose Admin Albuterol/Ipratropium 3 [...] mg PO 10/13/24 09:01 Not Given DAILY [facility] Dextrose 0 gm 10/04/24 02:37 Dextrose 50% [...] 10/05/24 09:00 Chloride IV 10/08/24 09:59 Q24H [facility] Insulin Aspart 0 units 10/04/24 17:00 Insulin Aspart 300 Units/3 Ml SUBCUT 10/04/25 16:59 TID.WM.HS [facility] Protocol Lisinopril 5 mg 10/04/24 09:00 10/04/24 [...] of chronic obstructive pulmonary disease (COPD): (2) Ypmfm-6-ensriblzrwe deficiency: (3) Obstructive sleep apnea (adult) (pediatric): (4) Hypertension: Plan Documented By: Eden Greenwood MD 10/04/24 2828 Signed By: 10/05/24 0000 [facility]03-20-2025 Hospital Discharge instructions Additional Instructions Dietitian recommendations: Ensure clear, 1 container, twice daily with meals You tested positive for COVID-19 on 10/04/24. Please see attached COVID-19 discharge instructions. Continue use of CPAP and oxygen as per chronic orders.[facility] Work Phone: 1(486) 653-175003-20-2025 History and physical note Author Clifton Calderon [facility] Note Date/Time October 04, 2024 3:4 7am [facility] [address] [place] [address] Hospitalist H&P Signed with Addenda Patient: Ricardo Hylton MR#: [id number] : 1960 Acct:[id number] Age/Sex: 63 / M Adm Date: 5 Loc: 3T Room: [address] [place] [address] Type: ADM IN Attending Dr: Clifton Calderon MD Copies to: MD Sarah Watts, [facility]~ ADDENDUM1 Respiratory panel resulted COVID positive, will start remdesivir and dexamethasone given increased O2 needs. Addendum Documented By: Clifton Calderon MD 03/346 Addendum Signed By: <Electronically signed by Clifton Calderon MD> 10/04/24 0347 HPI DATE OF EXAMINATION: 10/04/24 CHIEF COMPLAINT: [...] negative unless noted below or in HPI [facility] Medical History Obstructive sleep apnea (adult) (pediatric) Hypertension History of left heart catheterization GERD (gastroesophageal reflux disease) Essential hypertension Diabetes type 2, controlled Depression Chronic obstructive pulmonary disease Centrilobular emphysema Anxiety, generalized Itumy-0-kpigretamrc deficiency Family History Father Cancer Legacy Famx Problem: Diagnosed with Cancer Family history of [...] % (Auto) 11.7 % (.) 10/04/24 00:07 [place] % (Auto) 12.6 % (.) 10/04/24 00:07 Eos % (Auto) 0.2 % (.) 10/04/24 00:07 Baso % (Auto) 0.7 % (.) 10/04/24 00:07 Nucleat RBC Rel Count 0.2 /100 WBC (0-0.5) 10/04/24 00:07 Neut # (Auto) 9.5 x10E3/uL (1.8-7.7) H 10/04/24 00:07 Lymph # (Auto) 1.5 x10E3/uL (1.00-4.8) 10/04/24 00:07 [place] # (Auto) 1.6 x10E3/uL (0.0-0.8) H 10/04/24 [...] of chronic obstructive pulmonary disease (COPD): (2) Pxkpy-2-gbhpwsomjme deficiency: (3) Obstructive sleep apnea (adult) (pediatric): (4) Hypertension: Bon Hylton is a 63 y/o M history [...] signed by Clifton Calderon MD> 10/04/24 0244 [facility] Work Phone: 1(248) 200-678503-20-2025 [place] [address] Hospitalist H&P Signed with Addenda Patient: Ricardo Hylton MR#: [id number] : 1960 Acct:[id number] Age/Sex: 63 / M Adm Date: 5 Loc: Room: [address] [place] [address] Type: ADM IN Attending Dr: Clifton Calderon MD Copies to: MD Sarah Watts, [facility]~ ADDENDUM1 Respiratory panel resulted COVID positive, will start remdesivir and dexamethasone given increased O2 needs. Addendum Documented By: Clifton Calderon MD 10/04/24 0347 Addendum Signed By: 10/04/24 0347 HPI DATE OF EXAMINATION: 10/04/24 CHIEF COMPLAINT: [...] negative unless noted below or in HPI [facility] Medical History Obstructive sleep apnea (adult) (pediatric) Hypertension History of left heart catheterization GERD (gastroesophageal reflux disease) Essential hypertension Diabetes type 2, controlled Depression Chronic obstructive pulmonary disease Centrilobular emphysema Anxiety, generalized Tpsxy-0-emrfgctjsxp deficiency Family History Father Cancer Legacy FamHx [...] % (Auto) 11.7 % (.) 10/04/24 00:07 [place] % (Auto) 12.6 % (.) 10/04/24 00:07 Eos % (Auto) 0.2 % (.) 10/04/24 00:07 Baso % (Auto) 0.7 % (.) 10/04/24 00:07 Nucleat RBC Rel Count 0.2 /100 WBC (0-0.5) 10/04/24 00:07 Neut # (Auto) 9.5 x10E3/uL (1.8-7.7) H 10/04/24 00:07 Lymph # (Auto) 1.5 x10E3/uL (1.00-4.8) 10/04/24 00:07 [place] # (Auto) 1.6 x10E3/uL (0.0-0.8) H 10/04/24 [...] of chronic obstructive pulmonary disease (COPD): (2) Jzeec-3-qtgczqzhupi deficiency: (3) Obstructive sleep apnea (adult) (pediatric): [...] MD 10/04/24 0136 Signed By: 10/04/24 0244 [facility]03-20-2025 Evaluation note* Diagnosis Onset Date Resolution Status Admit Date Acute exacerbation of chroni c obstructive pulmonary disease (COPD) acute October 04, 2024 12:57am Ydeom-1-wchmqtxszhg deficiency acute October 04, 2024 12:57am Diabetes type 2, controlled acute October 04, 2024 12:57am Essential hypertension acute [facility] 2024 12:57am Hypertension acute October 04, 2024 12:57am Obstructive sleep apnea (bernardino lt) (pediatric) acute October 04, 2024 12:57am [facility] Work Phone: 1(878) 334-730411-18-2024 NoteFamily Medicine Office/Clinic Note Chief Complaint ent [...] Previous treatment: None., 06/04/2024 (more content not included)...[facility]Result Comment: Electronically Signed By: SARAH TRIVEDI CNP\.mitchel\Date and Time Signed: 06/04/24 15:43 [id number] NotePatient Education Immunology Allergic Rhinitis, Adult Allergic [...] ??? Atopic dermatitis or eczema. This is termite treater (chronic) irritation and swelling of the skin. [...] related conditions, such as: ??? Asthma. ??? [place] eye. This is eye swelling and irritation [...] and dust regularly. General instructions ??? Take ookt-lze-adpsyvt and prescription medicines only as told by your provider. ??? Drink enough fluid to keep your pee pale yellow. Where to find more information ??? [place] [employer]ergy, Asthma & Immunology: aaaai.org [...] see if the sy (more content not included)...[facility]2024 NotePatient Education Endocrinology Diabetes Mellitus and Exercise [...] an expert trained in diabetes care (certified technician) can help you make an activity plan. [...] stroke). Where to find more information ??? [place] [employer] Association: diabetes.org ??? Association of Diabetes Care & Education Specialists: diabeteseducator.org This information is not intended to replace advice given to you by your health care provider. Make sure you discuss any questions you have with your health care provider. Document Revised: 12/22/2022 Document Reviewed: 12/22/2022 [employer] Patient Education ? 2023 [employer].[facility] 08-26-2023 Evaluation note* Encounter Date Diagnosis Assessment Notes Treatment Notes Treatment Clinical Notes Aug, Anxiety, generalized (ICD-10 - F41.1) [facility] Other 01-18-2024 Evaluation note* Encounter Date Diagnosis Assessment Notes Treatment Notes Treatment Clinical Notes Jul, Acute cervical radiculopathy (ICD-10 - M54.12) [facility] Other 12-26-2023 Evaluation note* Encounter Date Diagnosis Assessment Notes Treatment Notes Treatment Clinical Notes Jun, Acute cervical radiculopathy (ICD-10 - M54.12) [facility] Other 12-11-2023 Evaluation note* Encounter Date Diagnosis [...] F41.1) Chronic problem that is stable presently. [facility] Other 12-08-2023 Evaluation note* Encounter Date Diagnosis Assessment Notes Treatment Notes Treatment Clinical Notes Jun, Anxiety, generalized (ICD-10 - F41.1) [facility] Other 11-17-2023 Evaluation note* Encounter Date Diagnosis Assessment Notes Treatment Notes Treatment Clinical Notes May, Acute cervical radiculopathy (ICD-10 - M54.12) [facility] Other 11-14-2023 Evaluation note* Encounter Date Diagnosis Assessment Notes Treatment Notes Treatment Clinical Notes May, Anxiety, generalized (ICD-10 - F41.1) May, Acute cervical radiculopathy (ICD-10 - M54.12) [facility] Other 10-23-2023 Evaluation note* Encounter Date Diagnosis Assessment Notes Treatment Notes Treatment Clinical Notes Apr, Acute cervical radiculopathy (ICD-10 - M54.12) [facility] Other 10-09-2023 Miscellaneous Notes* Telephone Encounter - Yaima Meraz RN - 04/25/2023 11:47 AM EDT [...] number in case they had any questions. Yaima Meraz RN, BSN Pre-Lung Auto Body Repair Technician [facility] note* Encounter Date Diagnosis Assessment Notes Treatment Notes Treatment Clinical Notes Mar, Acute cervical radiculopathy (ICD-10 - M54.12) [facility] Other 08-28-2023 Evaluation note* Encounter Date Diagnosis Assessment Notes Treatment Notes Treatment Clinical Notes Feb, Acute cervical radiculopathy (ICD-10 - M54.12) [facility] Other 08-24-2023 Miscellaneous Notes* Telephone Encounter - Yaima Meraz RN - 03/10/2023 12:04 PM EDT Attempted to reach patient regarding lung transplant referral. He was last seen in 03/2021 and has not been back since. We have not heard from the patient since 10/2021. I was unable to speak with him and unable to leave a message due to his voicemail being full. Yaima Meraz RN, BSN Pre-Lung Auto Body Repair Technician documented in this encounterK[facility]08-22-2023 Evaluation note* Encounter Date Diagnosis Assessment Notes Treatment Notes Treatment Clinical Notes Feb, Type 2 diabetes mellitus with hyperglycemia, without long-term current use of insulin (ICD-10 - E11.65) [facility] Other 08-17-2023 Evaluation note* Encounter Date Diagnosis [...] lose weight to improved his severe COPD> [facility] Other 08-17-2023 Evaluation note* Encounter Date Diagnosis [...] lose weight to improve his lung function [facility] Other 07-27-2023 Evaluation note* Encounter Date Diagnosis Assessment Notes Treatment Notes Treatment Clinical Notes Jan, Acute cervical radiculopathy (ICD-10 - M54.12) [facility] Other 06-15-2023 Evaluation note* Encounter Date Diagnosis [...] the zephyr procedure can be started through [place]. Keep appt in January w his office. [facility] Other 04-28-2023 Evaluation note* Encounter Date Diagnosis Assessment Notes Treatment Notes Treatment Clinical Notes Oct, Acute cervical radiculopathy (ICD-10 - M54.12) [facility] Other 02-16-2023 Evaluation note* Encounter Date Diagnosis Assessment Notes Treatment Notes Treatment Clinical Notes Aug, Chronic obstructive pulmonary disease (ICD-10 - J44.9) Continue present meds including lengthy steroid taper. Continue to followup w Dr. Gonzalez. He has not heard anything [facility] Other 04-27-2022 Miscellaneous Notes* Telephone Encounter - [...] options. Maximino Callaway Transplant documented in this encounterK[facility]04-20-2022 Miscellaneous Notes* Telephone Encounter - Molly Gan APRN.CNP - 11/04/2021 2:27 PM EDT Patient not in attendance for lung transplant appts on 11/04. Attempted to contact patient to reschedule. VM left requesting call back. Molly Gan, MSN, RENÉE-GNOZI Lung Auto Body Repair Technician documented in this encounterK[facility] CenterEvaluation + Plan note Future Appointments Appointment Date:04/24/2024 01:40:00 PM Scheduled Provider:SARAH TRIVEDI CNP [facility] Type: Open Appointment Date:01/29/2025 01:00:00 PM Scheduled Provider: Location:[facility] Appointment Type: Medicare Wellness Subsequent Future Scheduled Tests Laboratory* HCV Antibody RFX to Quant PCR [facility]ments Appointment Date:01/24/2025 01:20:00 PM Scheduled Provider:SARAH TRIVEDI CNP [facility] App[facility] Type: Open Appointment Date:01/29/2025 01:00:00 PM Scheduled Provider: [facility] Appoint[facility] Type:FM Medicare Wellness Subsequent Diagnostic Tests Pending * HgbA1c 10/25/24 * HCV Antibody RFX to Quant PCR 10/25/24 * PSA Total 10/25/24 [facility] Evaluation + Plan note Future Appointments Appointment Date:01/24/2025 01:20:00 PM Scheduled Provider:SARAH TRIVEDI CNP [facility] App[facility] Type: Open Appointment Date:01/29/2025 01:00:00 PM Scheduled Provider: Location:[facility] Natasha Appointment Type: Medicare Wellness Subsequent Appointment Date:02/06/2025 11:00:00 AM Scheduled Provider: Location:[facility] MELISSA Hardy Appointment Type:URO Nurse Visit Appointment Date:02/13/2025 11:15:00 AM Scheduled Provider:Joo YIP MD Location:[facility] MELISSA Hardy Appointment Type:URO Office Visit [facility] Evaluation note* Diagnosis Chronic obstructive pulmonary disease, unspecified COPD type (HCC)- Primary Lung transplant candidate [facility] encounter [facility]* Diagnosis Vespl-4-tovkthqsgtp deficiency (HCC)- Primary Omaix-6-qlvnamoxqmg deficiency documented in this encounter [facility] CenterEvaluation noteNo [facility] [employer] Other Evaluation note* Diagnosis Onset Date Resolution Status Skin lesion of right arm acu te [facility] Work Phone: evaluation note* Diagnosis Onset Date Resolution Status Admit Date Acute exacerbation of chroni c obstructive pulmonary disease (COPD) acute October 04, 2024 12:57am Diabetes type 2, controlled acute October 04, 2024 12:57am Essential hypertension acute [facility] 2024 12:57am [facility] Work Phone: Evaluation note* Diagnosis Chronic obstructive pulmonary disease, unspecified COPD type (HCC) [facility] Chronic obstructive pulmonary disease, unspecified COPD type (HCC)- [facility] Narrative - Reported* Type Description Date Medical History Hypertension Medical History COPD Medical History RANCHO Medical History Centrilobular Emphysema Medical History Obesity Medical History Alpha 1 Antitrypsin Deficieny Medical History Depression Medical History Diabetes Type 2 Medical History GERD Medical History Essential Hypertension. Surgical History heart catheterization, no stent s Hospitalization History SEE ABOVE [facility] Other Hospital course Narrative No data available for this section [facility] No data available for this section [facility] No data available for this section [facility] Summary Purpose Family History Relationship Condition Age at Onset Recorded Date/T fadi father Malignant neoplasm Unknown Family history of lung cancer Unknown Unknown Advance Directives Advance Directive Response Recorded Date/ Time Advance [...] pulmonary disease (COPD) October 04, 2024 12:57am Nhjnw-2-vukgzkiobox deficiency September 12:57am Diabetes type 2, controlled [...] and content) DATE CREATED AUTHOR 03/17/2019 [facility] DATE CREATED AUTHOR AUTHOR'S ORGANIZ ATION 10/06/2022 [facility] DATE CREATED AUTHOR AUTHOR'S ORGANIZ ATION 10/19/2024 [facility] DATE CREATED AUTHOR AUTHOR'S ORGANIZ ATION 10/28/2024 [facility] DATE CREATED AUTHOR AUTHOR'S ORGANIZ ATION 02/07/2025 [facility] DATE CREATED AUTHOR AUTHOR'S ORGANIZ ATION 02/12/2025 [facility] DATE CREATED AUTHOR AUTHOR'S ORGANIZ ATION 02/20/2025 [facility] DATE CREATED AUTHOR AUTHOR'S ORGANIZ ATION 02/23/2025 [facility] DATE CREATED AUTHOR AUTHOR'S ORGANIZ ATION 02/28/2025 [facility] DATE CREATED AUTHOR AUTHOR'S ORGANIZ ATION 03/12/2025 [facility] DATE CREATED AUTHOR AUTHOR'S ORGANIZ ATION 03/12/2025 [facility] Source Comments (unrecognize d section and content) In the event this informatio n is protected by the Federal Confidentiality of Alcohol and Drug Abuse Patient Records regulations: The Federal rules restrict any use of the information to criminally investigate or prosecute any alcohol or drug abuse patient.[facility] CenterIn the event this information is protected by the Federal Confidentiality of Alcohol and Drug Abuse Patient Records regulations: The Federal rules restrict any use of the information to criminally investigate or prosecute any alcohol or drug abuse patient.[facility] CenterIn the event this information is protected by the Federal Confidentiality of Alcohol and Drug Abuse Patient Records regulations: The Federal rules restrict any use of the information to criminally investigate or prosecute any alcohol or drug abuse patient.[facility] CenterIn the event this information is protected by the Federal Confidentiality of Alcohol and Drug Abuse Patient Records regulations: The Federal rules restrict any use of the information to criminally investigate or prosecute any alcohol or drug abuse patient.[facility] CenterIn the event this information is protected by the Federal Confidentiality of Alcohol and Drug Abuse Patient Records regulations: The Federal rules restrict any use of the information to criminally investigate or prosecute any alcohol or drug abuse patient.[facility] CenterIn the event this information is protected by the Federal Confidentiality of Alcohol and Drug Abuse Patient Records regulations: The Federal rules restrict any use of the information to criminally investigate or prosecute any alcohol or drug abuse patient.[facility] CenterIn the event this information is protected by the Federal Confidentiality of Alcohol and Drug Abuse Patient Records regulations: The Federal rules restrict any use of the information to criminally investigate or prosecute any alcohol or drug abuse patient.[facility] CenterIn the event this information is protected by the Federal Confidentiality of Alcohol and Drug Abuse Patient Records regulations: The Federal rules restrict any use of the information to criminally investigate or prosecute any alcohol or drug abuse patient.[facility] CenterIn the event this information is protected by the Federal Confidentiality of Alcohol and Drug Abuse Patient Records regulations: The Federal rules restrict any use of the information to criminally investigate or prosecute any alcohol or drug abuse patient.[facility] CenterIn the event this information is protected by the Federal Confidentiality of Alcohol and Drug Abuse Patient Records regulations: The Federal rules restrict any use of the information to criminally investigate or prosecute any alcohol or drug abuse patient.[facility] CenterIn the event this information is protected by the Federal Confidentiality of Alcohol and Drug Abuse Patient Records regulations: The Federal rules restrict any use of the information to criminally investigate or prosecute any alcohol or drug abuse patient.[facility] Care Teams (unrecognized sec tion and content) Metal Hanging Helper Relationship Specialty Start Date End Date Bryon Cowart MD [address] [place] [address] PCP - General Family Practice 03/12/20 Vanda Gonzalez DO Referring Pulmonary and Critical Care Medicine 03/12/20 Metal Hanging Helper Relationship Specialty Start Date End Date Bryon Cowart MD [address] [place] [address] PCP - General Family Practice 03/12/20 Vanda Gonzalez DO Referring Pulmonary and Critical Care Medicine 03/12/20 Metal Hanging Helper Relationship Specialty Start Date End Date Bryon Cowart MD [address] [place] [address] PCP - General Family Practice 03/12/20 Vanda Gonzalez DO Referring Pulmonary and Critical Care Medicine 03/12/20 Metal Hanging Helper Relationship Specialty Start Date End Date Bryon Cowart MD [address] [place] [id number] PCP - General Family Medicine 03/12/20 Vanda Gonzalez DO [address] [place] [id number] Referring Pulmonary and Critical Care Medicine 03/12/20 [...] Active Member Role Status Dates Sarah Trivedi [facility] Primary Care Provider Active Team Status: Active Member Role Status Dates Rubén Pina DO Attending Provider Active Sta rt: August 20, 2024 Team Status: Active Member Role Status Dates Pranay Bai Jr, MD Emergency Provider Active Start: October 04, 2024 Sarah Trivedi [facility] Primary Care Provider Active Start: October 04, 2024 Clifton Calderon MD Admit Provider, Atte nding Provider Active Start: October 04, 2024 Team Status: Inactive Member Role Status Dates Pranay Bai Jr, MD Emergency Provider Active Start: October 04, 2024 End: October 05, 2024 Sarah Trivedi [facility] Primary Care Provider Active Start: October 04, 2024 End: October 05, 2024 Clifton Calderon MD Admit Provider Active Start: 2024 End: October 05, 2024 Eden Greenwood MD Attending Provider Active art: October 04, 2024 End: October 05, 2024 Metal Hanging Helper Relationship Specialty Start Date End Date Bryon Cowart MD [address] [place] [id number] PCP - General Family Medicine 03/12/20 Vanda Gonzalez DO [address] [facility] [id number] Referring Pulmonary and Critical Care Medicine 03/12/20 Metal Hanging Helper Relationship Specialty Start Date End Date Bryon Cowart MD [address] [place] [address] PCP - General Family Medicine 03/12/20 Vanda Gonzalez DO [address] [facility] [address] Referring Pulmonary and Critical Care Medicine 03/12/20 Metal Hanging Helper Relationship Specialty Start Date End Date Bryon Cowart MD [address] [place] [address] PCP - General Family Medicine 03/12/20 Vanda Gonzalez DO [address] [facility] [address] Referring Pulmonary and Critical Care Medicine 03/12/20 Reason for Visit (unrecogniz ed section and content) Reason Comments Missed appointments Reason Comments Patient Update Reason Comments Follow up on Lung Transplant Referral Reason Comments Closing Referral Reason Comments Spirometry Specialty Diagnoses / Procedures Referred By Contac t Referred To [facility] Diagnoses Chronic obstructive pulmonary disease, unspecified COPD type (HCC) Procedures SPIROMETRY WITH DILATOR IF OBSTRUCTED BRNCDILAT RSPSE SPMTRY PRE&[place] [address] [place] [address] Phone: tel: fax: [facility] [address] [address] Referral ID Status Reason Start Date Expiration Date V isits Requested Visits Authorized [id number] Closed Auto-Generate d Referral 03/06/2025 04/05/2026 1 1 Specialty Diagnoses / Procedures Referred By Contac t Referred To [facility] [place] Diagnoses Chronic obstructive pulmonary disease, unspecified COPD type (HCC) Procedures LUNG DIFFUSION CAPACITY (DLCO) [place] [address] [place] [address] Phone: tel: fax: [facility] [address] [address] Referral ID Status Reason Start Date Expiration Date V isits Requested Visits Authorized [id number] Closed Auto-Generate d Referral 03/06/2025 04/05/2026 1 1 Specialty Diagnoses / Procedures Referred By Contac t Referred To [facility] [place] Diagnoses Chronic obstructive pulmonary disease, unspecified COPD type (HCC) Procedures [place] [address] [place] [address] Phone: tel: fax: [facility] [address] [address] Referral ID Status Reason Start Date Expiration Date V isits Requested Visits Authorized [id number] Closed Auto-Generate d Referral 03/11/2025 07/17/2025 1 1 Goals (unrecognized section and content) Goals may [...] BE BASED ON THE PRIMARY CLINICAL RECORDS. [facility]. provides no warranty or guarantee of the accuracy or completeness of information in this document.
== END 2025-03-15 12:53 | disposition home or self-care (01) ==
LOC: CARD 12:52
PROVIDERS: PCP Internal Medicine; Visit Provider Internal Medicine Interventional Cardiology
DX: R06.09 Other forms of dyspnea (principal); I47.10 Supraventricular tachycardia, unspecified
CPT/HCPCS: 93306

== ENCOUNTER 2025-04-10 13:50 | Outpatient (RCR) | payer MEDICARE, SELFPAY ==
[2025-03-22 13:10] VITALS: BP 143/93; PULSE 90; TEMP 36.8; O2SAT 96
[2025-03-22] MEDS: ALPHA IV (13:38)
[2025-03-22] MEDS: PROTEINASE INHIBITOR IV (13:38)
[2025-03-27 13:34] VITALS: BP 153/76; PULSE 91; TEMP 36.3; O2SAT 96
[2025-03-27] MEDS: ALPHA IV (13:59)
[2025-03-27] MEDS: PROTEINASE INHIBITOR IV (13:59)
[2025-04-10 13:59] VITALS: BP 140/78; PULSE 88; TEMP 36.4; O2SAT 94
[2025-04-10] MEDS: ALPHA IV (14:16)
[2025-04-10] MEDS: PROTEINASE INHIBITOR IV (14:16)
== END 2025-04-16 23:59 | disposition home or self-care (01) ==
LOC: INF 13:50
PROVIDERS: PCP Internal Medicine; Visit Provider Internal Medicine
DX: E88.01 Alpha-1-antitrypsin deficiency (principal); J43.2 Centrilobular emphysema
CPT/HCPCS: 96365; J0256

== ENCOUNTER 2025-04-30 07:45 | Day surgery (SDC) | payer MEDICARE, SELFPAY ==
--- OUTSIDE RECORDS SUMMARY | 2025-03-12 10:00 | XMS_ITS ---
Author Organization [facility] [place] Address [address] [place] [address] Care Team Providers Care Concrete Gun Operator Name Role Phone Dali Blue Primary Care Provider Ludivina vailaDouglas Cruz Unavailable [phone] REASON FOR VISIT 3m F/U - COPD, RANCHO Encounters Encounter Location Date Provider Diagnosis Pulmonary Medicine [place] [address] [place] [address] 03/12/2025 Douglas Pacheco Plan Of Treatment No Information Progress Notes * Ramiro HALLMAN ADOB: 0 (64 yo M)Acc No.[id number]:03/12/2025 UNLOCKED PROGRESS NOTE Follow Up Patient: Ramiro VILLAGOMEZ Provider: Babak Pacheco DO :1960 A ge:64 Y S ex:Male Date:03/12/2025 Address:[address] [place], [place] [id number] Pcp:BIANKA Turner Subjective: * Chief Complaints: * 1 . 3m F/U - COPD, RANCHO. * Medical History: Objective: * Vitals: Assessment: Plan: * Treatment: * * Electronic signature of Rosalba Pacheco DO on 04/30/2025 at 07:48 AM EDT Sign off status: Pending Visit Status: O FF CANC (OFFICE CANCEL) * Provider: Babak Pacheco DO Date: 0 03/12/2025 Generated for Allyson antony/Missy/Jeremias on: 1 07:48 AM EDT
--- OUTSIDE RECORDS SUMMARY | 2025-04-17 10:32 | XMS_ITS | Continuity of Care Document ---
Author Organization [facility] Address [address] [place] [address] Phone Care Team Providers Care Tank Inspector Name Role Phone Dali Trivedi [facility] Primary Care Provider + Leslye Lester MD Attending Provider Joo Trejo MD Attending Provider Abel Perez PA-C Emergency Provider [phone] Serene Cho MD Admit Provider Gael Marrero DO Attending Provider Care Teams Patient Care Team Team Status: Active Member Role Status Dates Dali Trivedi [facility] Primary Care Provider Active Visit Care Team Team Status: Active Member Role Status Dates Dali Trivedi [facility] Primary Care Provider Active Start: March 11, 2025 Leslye Lester MD Attending Provider Active Start: Marek [email or web address] Visit Care Team Team Status: Active Member Role Status Dates Dali Trivedi [facility] Primary Care Provider Active Start: March 26, 2025 Leslye Lester MD Attending Provider Active Start: Andrew joshi 2024 Visit Care Team Team Status: Inactive Member Role Status Dates Dali Trivedi [facility] Primary Care Provider Active Start: April 11, 2025 End: April 11, 2025 Joo Trejo MD Attending Provider Active St art: April 11, 2025 End: April 11, 2025 Visit Care Team Team Status: Inactive Member Role Status Dates Dali Trivedi [facility] Primary Care Provider Active Start: April 15, 2025 End: April 17, 2025 Abel Perez PA-C Emergency Provider Active Start: April 15, 2025 End: April 17, 2025 Serene Cho MD Admit Provider Active Start: [email or web address] End: April 17, 2025 Gael Marrero DO Attending Provider Active Sta rt: April 15, 2025 End: April 17, 2025 Chief Complaint and Reason for Visit Chief Complaint Admit Date R97.20 April 11, 2025 9:16pm diff breathing, COPD April 15 5:46pm Reason for Visit Admit Date Acute exacerbation of chroni c obstructive pulmonary disease (COPD) April 15, 2025 5:46pm Reason for Referral Referring Provider Name Referring Provider Address Referring Provider Phone Referral Date Requested Appointment Date Referral Reason Serene Cho [address] [phone] Work Phone: You have b een scheduled for a follow up appointment for the following date and time, please call to reschedule if needed. Health Concerns Concerns A [facility] screening has identified you as FRAIL [...] Four Ways to Beat the Frailty Risk [email or web address] Allergies, Adverse Reactions, Alerts Allergen Type Severity Reaction Last Updated Verified Status metformin Allergy Unknown Diarrhea April 15, 2025 2:33pm Y es Active Social History Smoking Status Status Start Date End Date Date of Observa tion Ex-smoker (finding) Jordin r 2024 6:40pm Observation Status Observation Response Date of Response Legal Sex Male (finding) Sex Assigned At Male October Family History Relationship Condition Age at Onset Recorded Date/T fdai Not Specified Chronic obstructive pulmonary disease Un known father Family history of lung cancer Unknown Unknown Malignant neoplasm Unknown Problems Active Problems Medical Problem Onset Date Status Chronic cervical radiculopathy Unknown A ctive Ipuox-0-ihntdgsmozo deficiency Unknown A ctive COVID-19 Unknown Active Anxiety, generalized Unknown Active Chronic pain of left knee Unknown Active Centrilobular emphysema Unknown Active Obstructive sleep apnea (adult) (pediatric) Unkn own Active Depression Unknown Active Skin lesion of right arm Unknown Active Essential hypertension Unknown Active Diabetes type 2, controlled Unknown Acti ve Chronic obstructive pulmonary disease Unknown Active Acute exacerbation of chronic obstructive pulmon mya disease (COPD) Unknown Active GERD (gastroesophageal reflux disease) Unknown Active Hypertension Unknown Active Medications Medication Status Dose Units Route Directions Qty Days St art Date Stop Date End Date Instructions Adherence Hydrocodone -Acetaminop hen 5-325 mg tablet Discont inued 1 TAB PO Every 6 hours as needed for pain 120 30 2023October 03, 2023 12:43 pm Glipizide 10 mg tablet Discont inued 0 .ROUTE .COMPLEX 180 September 19, 2023 1:16pm [facility] 2024 7:12p m TAKE 1 TABLET BY MOUTH TWICE A DAY Alprazolam 0.5 mg tablet Discont inued 0.5 MG PO Twice daily as needed for anxiety 60 30 September 27, 2023 10:35a m November 11, 2023 2:39p m Omeprazole 20 mg capsule,del ayed release(DR/ EC) Discont inued 0 .ROUTE .COMPLEX October 17, 2023 12:35p m November 14, 2023 2:14p m TAKE 1 CAPSULE BY MOUTH EVERY DAY IN THE MORNING Metoprolol Succinate 25 mg tablet extended release 24 hr Discont inued 0 .ROUTE .COMPLEX October 25, 2023 2:51pm October 04, 2024 1:41a m TAKE 1 TABLET BY MOUTH EVERY DAY Semaglutide (Ozempic) 0.25 mg or 0.5 mg (2 mg/3 mL) pen injector Discont inued 0 .ROUTE .COMPLEX 3 October 25, 2023 2:51pm [facility] 2024 7:26p m INJECT 0.5 MG SUBCUTANEOUSL Y ONCE A WEEK Empaglifloz in (Jardiance) 25 mg tablet Discont inued 0 .ROUTE .COMPLEX October 25, 2023 2:51pm October 04, 2024 1:40a m TAKE 1 TABLET BY MOUTH EVERY DAY Omeprazole 20 mg capsule,del ayed release(DR/ EC) Active 0 .ROUTE .COMPLEX November 14, 2023 2:14pm TAKE 1 CAPSULE BY MOUTH EVERY DAY IN THE MORNING Complies with drug therapy Aripiprazol e 10 mg tablet Active 0 .ROUTE .COMPLEX November 14, 2023 2:14pm TAKE 1 TABLET BY MOUTH EVERY DAY Complies with drug therapy Albuterol Sulfate 90 mcg/actuati on HFA aerosol inhaler Active 2 PUFF INHALA TION Twice daily October 04, 2024 12:00a m Complies with drug therapy Pravastatin 80 mg tablet Active 40 MG PO Every morning October 04, 2024 12:00a m Complies with drug therapy Fluticasone -Umeclidin- Vilanter (Trelegy Ellipta) 100-62.5-25 mcg blister with device Active 1 INH INHALA TION Every morning October 04, 2024 12:00a m Complies with drug therapy Aspirin 81 mg tablet,amari yed release (DR/EC) Discont inued 81 MG PO Daily October 04, 2024 12:00a m [facility] 2024 7:16p m Furosemide (Lasix) 40 mg tablet Discont inued 40 MG PO Daily October 04, 2024 12:00a m [facility] 2024 7:18p m Metoprolol Succinate 25 mg tablet extended release 24 hr Discont inued 25 MG PO Daily October 04, 2024 12:00a m [facility] 2024 10:57 am Ipratropium -Albuterol 18-103 mcg/actuati on aerosol Discont inued 1 SPRAY INHALA TION Four times daily October 04, 2024 12:00a m [facility] 2024 7:18p m Alpha-1 Proteinase Inhib.(Hum) 1,000 mg recon soln Active 1000 MG IV every week October 04, 2024 12:00a m Complies with drug therapy Hydrocodone -Acetaminop hen 5-325 mg tablet Discont inued 1 TAB PO Four times daily October 04, 2024 12:00a m [facility] 2024 7:18p m Azithromyci n 250 mg tablet Discont inued 250 MG PO Daily 2 2 October 05, 2024 12:00a m [facility] 2024 7:17p m start 10/06/24 Cephalexin 500 mg capsule Discont inued 500 MG PO Twice daily 10 5 October 05, 2024 12:00a m [facility] 2024 7:17p m Prednisone 20 mg tablet Discont inued 20 MG PO Daily October 05, 2024 12:00a m October 05, 2024 12:17 pm Prednisone 20 mg tablet Discont inued 20 MG PO Daily 3 October 05, 2024 12:16p m Octob er 2024 12:07 pm take 40 mg for three days then resume 20 mg days after that Theophyllin e 200 mg tablet extended release 12 hr Active 200 MG PO Twice daily 2024 12:00a m Complies with drug therapy Venlafaxine 150 mg capsule,ext ended release 24hr Active 150 MG PO Twice daily 2024 12:00a m Complies with drug therapy Ipratropium Ellis 21 mcg (0.03 %) spray,non-a erosol Active 2 SPRAY INTRAN DEE DEE Twice daily as needed for nasal congestion 2024 12:00a m Complies with drug therapy Empaglifloz in (Jardiance) 25 mg tablet Active 25 MG PO Every morning 2024 12:00a m Complies with drug therapy Glipizide 10 mg tablet Active 10 MG PO Twice daily 2024 12:00a m TAKE 1 TABLET BY MOUTH TWICE A DAY Complies with drug therapy Hydroxyzine Hcl 25 mg tablet Active 25 MG PO Four times daily as needed for itching 2024 12:00a m Complies with drug therapy Nystatin (Klayesta) 100,000 unit/gram powder Active 1 APPLIC TOPICA L Daily as needed for rash 2024 12:00a m Complies with drug therapy Semaglutide (Ozempic) 0.25 mg or 0.5 mg (2 mg/3 mL) pen injector Active 0.5 MG SUBCUT every week 2024 12:00a m INJECT 0.5 MG SUBCUTANEOUSL Y ONCE A WEEK (Next dose due 04/16/25) Complies with drug therapy Diltiazem Hcl (Cardizem Cd) 240 mg capsule,ext ended release 24hr Active 240 MG PO Daily Octobe r 2024 12:00a m Complies with drug therapy Prednisone 10 mg tablet Active 10 MG PO As Directed r 2024 12:00a m see taper instructions 40 mg qdx3 then 30 mg qdx3 then 10 mg qdx3 Unknown Alprazolam 0.5 mg tablet Discont inued 0.5 MG PO Twice daily as needed for anxiety 60 November 11, 2023 2:38pm October 04, 2024 1:38a m Albuterol Sulfate 2.5 mg /3 mL (0.083 %) solution for nebulizatio n Discont inued 2.5 MG INHALA TION EVERY 4-6 HOURS as needed 2023 1:00am October 04, 2024 1:47a m Alprazolam 0.5 mg tablet Discont inued 0.5 MG PO Twice daily as needed 2023 1:00am September 27, 2023 10:37 am Aripiprazol e 10 mg tablet Discont inued 10 MG PO Daily 2023 1:00am November 14, 2023 2:14p m Cpap (Continuous Positive Airway Pressure) unit Active 0 .Route 2023 1:00am Connect to 2L O2 during use. Cyclobenzap rine 5 mg tablet Discont inued 5 MG PO Twice daily 2023 1:00am 2024 7:17p m Diltiazem Hcl 240 mg capsule,ext ended release 24hr Discont inued 240 MG PO Daily 2023 1:00am 2024 7:17p m Venlafaxine (Effexor Xr) 150 mg capsule,ext ended release 24hr Discont inued 150 MG PO Twice daily with meals 2023 1:00am October 04, 2024 1:49a m Glipizide 10 mg tablet Discont inued 10 MG PO Twice daily 2023 1:00am September 19, 2023 1:16p m Empaglifloz in 25 mg tablet Discont inued 25 MG PO Daily 2023 1:00am October 25, 2023 2:52p m Lisinopril 5 mg tablet Discont inued 5 MG PO Daily 2023 1:00am [facility] 2024 10:57 am Metoprolol Succinate 25 mg tablet extended release 24 hr Discont inued 25 MG PO Daily 2023 1:00am October 25, 2023 2:52p m Guaifenesin (Mucinex) 600 mg tablet extended release 12hr Active 600 MG PO Every 12 hours 2023 1:00am Complies with drug therapy Willow-3 Fatty Acids 1,000 mg capsule Discont inued 1000 MG PO Daily 2023 1:00am October 04, 2024 1:48a m Omeprazole 20 mg capsule,del ayed release(DR/ EC) Discont inued 20 MG PO Daily 2023 1:00am October 17, 2023 12:35 pm Oxygen unit Active 0 .Route u a 2023 1:00am 3L O2 N/C AATs Semaglutide 0.25 mg or 0.5 mg (2 mg/3 mL) pen injector Discont inued 0.5 MG SUBCUT every week 2023 1:00am October 25, 2023 2:52p m Prednisone 20 mg tablet Discont inued 20 MG PO Daily 2023 1:00am October 04, 2024 1:48a m Alpha-1 Proteinase Inhib.(Hum) 1,000 mg recon soln Discont inued MG IV As Directed 2023 1:00am October 04, 2024 1:38a m Theophyllin e 400 mg tablet extended release 24 hr Discont inued 450 MG PO Twice daily 2023 1:00am [facility] 2024 7:11p m Mupirocin 2 % ointment Discont inued 1 APPLIC TOPICA L Twice daily 2023 1:00am October 04, 2024 1:48a m Hydrocodone -Acetaminop hen 5-325 mg tablet Discont inued 1 TAB PO Every 6 hours as needed for pain 120 30 October 03, 2023 October 04, 2024 1:40a m Procedures Procedure Date Performed Status MR prostate wo/w con April 11, 2025 9:23pm completed XR chest 2V* April 15, 2025 2:53pm comp leted Respiratory Panel (PCR) April 15, 2025 com pleted Relevant Diagnostic Tests and/or Laboratory Data Laboratory Results Test Collection Date/Time Result Date/Time Result Interpretation Reference Range Result Comment Performing Site Alanine Aminotra nsferase (ALT/SGP T) March 11, 2025 3:24pm March 11, 2025 3:24pm 12 U/L 10-54 Alpha-1- Antitryp sin March 11, 2025 3:24pm March 11, 2025 3:24pm 112 mg/dL 90-200 Theophyl line Level March 11, 2025 3:24pm March 11, 2025 3:24pm 30.0 ug/mL Above high normal 10.0-20.0 Reference ranges and high/low indicator flags are provided as general guidelines only. The treating physician must determine appropriate target levels/dosi ng based on the specific clinical situation. Basophil s # (Auto) March 11, 2025 3:24pm March 11, 2025 3:24pm 0.06 k/uL <0.11 Theophyl line Level March 26, 2025 1:57pm March 26, 2025 1:57pm 2.2 ug/mL Below low normal 10.0-20.0 Reference ranges and high/low indicator flags are provided as general guidelines only. The treating physician must determine appropriate target levels/dosi ng based on the specific clinical situation. Albumin March 11, 2025 3:24pm March 11, 2025 3:24pm 4.7 g/dL 3.9-4.9 Basophil s (%) (Auto) March 11, 2025 3:24pm March 11, 2025 3:24pm 0.4 % Aspartat e Amino Transf (AST/SGO T) March 11, 2025 3:24pm March 11, 2025 3:24pm 10 U/L Below low normal 14-40 Eosinoph ils # (Auto) March 11, 2025 3:24pm March 11, 2025 3:24pm <0.03 k/uL <0.46 Total Bilirubi n March 11, 2025 3:24pm March 11, 2025 3:24pm 0.4 mg/dL 0.2-1.3 Eosinoph ils (%) (Auto) March 11, 2025 3:24pm March 11, 2025 3:24pm 0.1 % Carbon Dioxide Level March 11, 2025 3:24pm March 11, 2025 3:24pm 22 mmol/L 22-30 Hemoglob in March 11, 2025 3:24pm March 11, 2025 3:24pm 16.6 g/dL 13.0-17.0 Chloride Level March 11, 2025 3:24pm March 11, 2025 3:24pm 100 mmol/L 98-107 Lymphocy shanna # (Auto) March 11, 2025 3:24pm March 11, 2025 3:24pm 1.01 k/uL 1.00-4.00 Creatini ne March 11, 2025 3:24pm March 11, 2025 3:24pm 0.85 mg/dL 0.73-1.22 Lymphocy shanna (%) (Auto) March 11, 2025 3:24pm March 11, 2025 3:24pm 7.5 % Glucose Level March 11, 2025 3:24pm March 11, 2025 3:24pm 156 mg/dL Above high normal 74-99 The [place] [employer] (ADA) provides guidance for cutoff values for fasting glucose and random glucose. The ADA defines fasting as no caloric intake for at least 8 hours. Fasting plasma glucose results between 100 to 125 mg/dL indicate increased risk for diabetes (prediabete s).Fasting plasma glucose results greater than or equal to 126 mg/dL meet the criteria for diagnosis of diabetes. In the absence of unequivocal hyperglycem ia, results should be confirmed by repeat testing. In a patient with classic symptoms of hyperglycem ia or hyperglycem ic crisis, random plasma glucose results greater than or equal to 200 mg/dL meet the criteria for diagnosis of diabetes.Nikia villegas: Standards of Medical Care in Diabetes 2016, [place] [employer] . Diabetes Care. 2016.39(Sup pl 1). Monocyte s # (Auto) March 11, 2025 3:24pm March 11, 2025 3:24pm 0.53 k/uL <0.87 Potassiu m Level March 11, 2025 3:24pm March 11, 2025 3:24pm 4.0 mmol/L 3.7-5.1 Neutroph ils # (Auto) March 11, 2024 3:24pm March 11, 2025 3:24pm 11.88 k/uL Above high normal 1.45-7.50 Serum Total Protein March 11, 2025 3:24pm March 11, 2025 3:24pm 7.6 g/dL 6.3-8.0 Neutroph ils (%) (Auto) March 11, 2025 3:24pm March 11, 2025 3:24pm 87.7 % Sodium Level March 11, 2025 3:24pm March 11, 2025 3:24pm 140 mmol/L 136-144 Nucleate d Red Blood Cells # March 11, 2025 3:24pm March 11, 2025 3:24pm 0.02 k/uL Above high normal <0.01 Blood Urea Nitrogen March 11, 2025 3:24pm March 11, 2025 3:24pm 21 mg/dL 9-24 Platelet Count March 11, 2025 3:24pm March 11, 2025 3:24pm 359 k/uL 150-400 Alkaline Phosphat ase March 11, 2025 3:24pm March 11, 2025 3:24pm 115 U/L Above high normal 38-113 Mean Corpuscu lar Hemoglob in March 11, 2025 3:24pm March 11, 2025 3:24pm 26.0 pg 26.0-34.0 Calcium Level March 11, 2025 3:24pm March 11, 2025 3:24pm 9.9 mg/dL 8.5-10.2 Mean Corpuscu lar Hemoglob in Concent March 11, 2025 3:24pm March 11, 2025 3:24pm 31.6 g/dL 30.5-36.0 Anion Gap March 11, 2025 3:24pm March 11, 2025 3:24pm 18 mmol/L Above high normal 8-15 Mean Corpuscu lar Volume March 11, 2025 3:24pm March 11, 2025 3:24pm 82.2 fL 80.0-100.0 Estimate d GFR (CKD-EPI ) March 11, 2025 3:24pm March 11, 2025 3:24pm 96 mL/min/1. 73m??? >=60 Estimated Glomerular Filtration Rate (eGFR) is calculated using the 2020 CKD-EPI creatinine equation. This equation utilizes serum creatinine, sex, and age as parameters. The creatinine assay has traceable calibration to isotope dilution-ma ss spectrometr y. Refer to KDIGO guidelines for clinical interpretat ion. In patients with unstable renal function, e.g. those with acute kidney injury, the eGFR may not accurately reflect actual GFR. Red Blood Count March 11, 2025 3:24pm March 11, 2025 3:24pm 6.39 m/uL Above high normal 4.20-6.00 Hematocr it March 11, 2025 3:24pm March 11, 2025 3:24pm 52.5 % Above high normal 39.0-51.0 Monocyte s (%) (Auto) March 11, 2025 3:24pm March 11, 2025 3:24pm 3.9 % Correcte d White Blood Count March 11, 2025 3:24pm March 11, 2025 3:24pm 13.55 k/uL Above high normal 3.70-11.00 Nucleate d RBC Relative Count (auto) March 11, 2025 3:24pm March 11, 2025 3:24pm 0.1 /100{WBC} Red Cell Distribu tion Width March 11, 2025 3:24pm March 11, 2025 3:24pm 17.0 % Above high normal 11.5-15.0 Mean Platelet Volume March 11, 2025 3:24pm March 11, 2025 3:24pm 9.2 fL 9.0-12.7 Differen tial Comment March 11, 2025 3:24pm March 11, 2025 3:24pm Auto Immature Granuloc yte # (Auto) March 11, 2025 3:24pm March 11, 2025 3:24pm 0.06 k/uL <0.10 Immature Granuloc yte % (Auto) March 11, 2025 3:24pm March 11, 2025 3:24pm 0.4 % Correcte d White Blood Count April 15, 2025 2:55pm April 15, 2025 3:17pm 9.7 10*3/uL 4.1-10.5 [facility] [id number] [address] [place] [id number] Uncorrec yamil WBC Count April 15, 2025 2:55pm April 15, 2025 3:17pm 9.7 10*3/uL 4.1-10.5 [facility] [id number] [address] [facility] [address] Red Blood Count April 15, 2025 2:55pm April 15, 2025 3:17pm 5.95 10*6/uL Above high normal 3.90-5.60 [facility] [id number] [address] [place] [address] Hemoglob in April 15, 2025 2:55pm April 15, 2025 3:17pm 15.6 g/dL 13.0-17.0 [facility] [id number] [address] [place] [address] Hematocr it April 15, 2025 2:55pm April 15, 2025 3:17pm 47.5 % 38.8-50.0 [facility] [id number] [address] [place] [address] Mean Corpuscu lar Volume April 15, 2025 2:55pm April 15, 2025 3:17pm 79.8 fL Below low normal 83.5-101 [facility] [id number] [address] [place] [address] Mean Corpuscu lar Hemoglob in April 15, 2025 2:55pm April 15, 2025 3:17pm 26.2 pg Below low normal 27.5-35.2 [facility] [id number] [address] [place] [address] Mean Corpuscu lar Hemoglob in Concent April 15, 2025 2:55pm April 15, 2025 3:17pm 32.8 g/dL 32.5-35.6 [facility] [id number] [address] [facility] [address] Red Cell Distribu tion Width April 15, 2025 2:55pm April 15, 2025 3:17pm 18.1 % Above high normal 12.0-14.8 [facility] [id number] [address] [facility] [address] Platelet Count April 15, 2025 2:55pm April 15, 2025 3:17pm 214 10*3/uL 150-450 [facility] [id number] [address] [facility] [address] Mean Platelet Volume April 15, 2025 2:55pm April 15, 2025 3:17pm 7.4 fL 6.6-10.1 [facility] [id number] [address] [facility] [address] Monocyte Distribu tion Width April 15, 2025 2:55pm April 15, 2025 3:17pm 16.49 % 0.00-20.00 [facility] [id number] [address] [facility] [address] Neutroph ils (%) (Auto) April 15, 2025 2:55pm April 15, 2025 3:17pm 86.0 % . [facility] [id number] [address] [facility] [address] Lymphocy shanna (%) (Auto) April 15, 2025 2:55pm April 15, 2025 3:17pm 8.6 % . [facility] [id number] [address] [facility] [id number] Monocyte s (%) (Auto) April 15, 2025 2:55pm April 15, 2025 3:17pm 4.4 % . [facility] [id number] [address] [facility] [address] Eosinoph ils (%) (Auto) April 15, 2025 2:55pm April 15, 2025 3:17pm 0.3 % . [facility] [id number] [address] [facility] [address] Basophil s (%) (Auto) April 15, 2025 2:55pm April 15, 2025 3:17pm 0.7 % . [facility] [id number] [address] [facility] [address] Nucleate d RBC Relative Count (auto) April 15, 2025 2:55pm April 15, 2025 3:17pm 0.1 /100{WBC} 0-0.5 [facility] [id number] [address] [facility] [address] Neutroph ils # (Auto) April 15, 2025 2:55pm April 15, 2025 3:17pm 8.3 10*3/uL Above high normal 1.8-7.7 [facility] [id number] [address] [facility] [address] Lymphocy shanna # (Auto) April 15, 2025 2:55pm April 15, 2025 3:17pm 0.8 10*3/uL Below low normal 1.00-4.8 [facility] [id number] [address] [facility] [address] Monocyte s # (Auto) April 15, 2025 2:55pm April 15, 2025 3:17pm 0.4 10*3/uL 0.0-0.8 [facility] [id number] [address] [facility] [address] Eosinoph ils # (Auto) April 15, 2025 2:55pm April 15, 2025 3:17pm 0.0 10*3/uL 0.0-0.45 [facility] [id number] [address] [facility] [address] Basophil s # (Auto) April 15, 2025 2:55pm April 15, 2025 3:17pm 0.1 10*3/uL 0.0-0.2 [facility] [id number] [address] [place] [address] Prothrom bin Time April 15, 2025 2:55pm April 15, 2025 3:56pm 10.3 s 9.0-12.9 A hematocrit value greater than 55% may lead to inaccurate results in coagulation testing. Patients having hematocrit values >55% require a special collection tube for coagulation studies. Please contact the laboratory at [phone] for redraw instruction s. [facility] [id number] [address] [facility] [address] Prothrom b Time Internat ional Ratio April 15, 2025 2:55pm April 15, 2025 3:56pm 0.9 INR Therapeutic Range A) Pre- and Peroperativ e OAT started two weeks before surgery. NOT HIP SURGERY: 1.5 - 2.5 HIP SURGERY: 2 - 3B) Primary and secondary prevention of venous THROMBOSIS: 2 - 3C) Active venous thrombosis, pulmonary embolismand prevention of recurrent venous thrombosis: 2 - 3D) Prevention of arterial thromboembo lismincludi ng patients with mechanical heart valves: 3 - 4.5 [facility] [id number] [address] [place] [address] Activate d Partial Thrombop last Time April 15, 2025 2:55pm April 15, 2025 3:56pm 31.0 s 25.1-36.5 A hematocrit value greater than 55% may lead to inaccurate results in coagulation testing. Patients having hematocrit values >55% require a special collection tube for coagulation studies. Please contact the laboratory at [phone] for redraw instruction s. [facility] [id number] [address] [facility] [address] Glucose Level April 16, 2025 6:27am April 16, 2025 7:39am 193 mg/dL Above high normal 70-100 ADA recommended reference rangeRandom Glucose Reference Range is dependent on time and content of last meal. Glucose of more than 200 mg/dL in a nonstressed , ambulatory subject supports the diagnosis of Diabetes Mellitus. [facility] [id number] [address] [place] [address] Blood Urea Nitrogen April 16, 2025 6:27am April 16, 2025 7:39am 24 mg/dL 7-25 [facility] [id number] [address] [place] [address] Creatini ne April 16, 2025 6:27am April 16, 2025 7:39am 1.09 mg/dL 0.70-1.30 [facility] [id number] [address] [place] [address] Estimate d GFR (CKD-EPI ) April 16, 2025 6:27am April 16, 2025 7:39am > 60.0 mL/Min [facility] [id number] [address] [place], [place] [id number] Sodium Level April 16, 2025 6:27am April 16, 2025 7:39am 139 mmol/L 136-145 [facility] [id number] [address] [place], [place] [id number] Potassiu m Level April 16, 2025 6:27am April 16, 2025 7:39am 4.4 mmol/L 3.5-5.1 [facility] [id number] [address] [place], [place] [id number] Chloride Level April 16, 2025 6:27am April 16, 2025 7:39am 100 mmol/L 98-107 [facility] [id number] [address] [place], [place] [id number] Carbon Dioxide Level April 16, 2025 6:27am April 16, 2025 7:39am 28.7 mmol/L 21.0-31.0 [facility] [id number] [address] [place], [place] [id number] Anion Gap April 16, 2025 6:27am April 16, 2025 7:39am 14.7 mEq/L 6.0-15.0 [facility] [id number] [address] [place], [place] [id number] Calcium Level April 16, 2025 6:27am April 16, 2025 7:39am 9.2 mg/dL 8.6-10.3 [facility] [id number] [address] [place], [place] [id number] Total Protein April 15, 2025 2:55pm April 15, 2025 3:49pm 7.1 g/dL 6.4-8.9 [facility] [id number] [address] [place] [id number] Albumin April 15, 2025 2:55pm April 15, 2025 3:49pm 4.3 g/dL 3.5-5.7 [facility] [id number] [address] [place] [address] 40978 Globulin April 15, 2025 2:55pm April 15, 2025 3:49pm 2.8 g/dL [facility] [id number] [address] [place], [place] [id number] Albumin/ Globulin Ratio April 15, 2025 2:55pm April 15, 2025 3:49pm 1.5 [facility] [id number] [address] [place], [place] [id number] Total Bilirubi n April 15, 2025 2:55pm April 15, 2025 3:49pm 0.6 mg/dL 0.3-1.0 [facility] [id number] [address] [place] [address] 55461 Aspartat e Amino Transf (AST/SGO T) April 15, 2025 2:55pm April 15, 2025 3:49pm 13 U/L 13-39 [facility] [id number] [address] [place] [address]954 Alanine Aminotra nsferase (ALT/SGP T) April 15, 2025 2:55pm April 15, 2025 3:49pm 14 U/L 7-52 [facility] [id number] [address] [place] [address] 79711 Alkaline Phosphat ase April 15, 2025 2:55pm April 15, 2025 3:49pm 79 U/L 34-104 [facility] [id number] [address] [place] [address] 88539 Total Creatine Kinase April 15, 2025 2:55pm April 15, 2025 4:52pm 43 U/L 30-223 [facility] [id number] [address] [place] [address] 62488 Troponin I High Sensitiv ity April 15, 2025 2:55pm April 15, 2025 3:56pm 7 ng/L 0-20 The Troponin units of report have been changed to meet the Chest Pain Accreditati on requirement , element EC5.M1l2. Troponin units are changed from pg/ml to ng/L. Also, the decimal is removed and results are in whole numbers. [facility] [id number] [address] [place] [address] 38622 B-Type Natriure tic Peptide April 15, 2025 2:55pm April 15, 2025 3:54pm 17.0 pg/mL 5-100 [facility] [id number] [address] [place] [address] Pharmacy Creatini ne Clearanc e (Chem April 16, 2025 6:27am April 16, 2025 7:39am 82.89 [facility] [id number] [address] [place] [address]3268 Coronavi bonifacio 2019 Clinical Comment 2 April 15, 2025 3:03pm April 15, 2025 4:23pm Not detected Not Detecte This is a duplicate RP2.1 COVID (PCR) result to be used for statistical tracking purpose only. [facility] [id number] [address] [place] [address] 59565 Arterial Blood pH April 15, 2025 3:11pm April 15, 2025 3:14pm 7.42 7.35-7.45 Point of Care testing Arterial Blood Partial Pressure CO2 April 15, 2025 3:11pm April 15, 2025 3:14pm 38.7 mm[Hg] 35.0-45.0 Point of Care testing Arterial Blood Partial Pressure O2 April 15, 2025 3:11pm April 15, 2025 3:14pm 108.8 mm[Hg] Above high normal 80.0-100.0 Point of Care testing Arterial Blood HCO3 April 15, 2025 3:11pm April 15, 2025 3:14pm 24.6 mmol/L 23.0-29.0 Point of Care testing Arterial Blood Base Excess April 15, 2025 3:11pm April 15, 2025 3:14pm 0.3 mmol/L -3.0-3.0 Point of Care testing Arterial Blood Oxygen Saturati on April 15, 2025 3:11pm April 15, 2025 3:14pm 97.9 % 95.0-100.0 Point of Care testing Arterial Blood Oxygen Content April 15, 2025 3:11pm April 15, 2025 3:14pm 9.5 mmol/L 6.6-9.7 Point of Care testing Arterial Blood Total CO2 April 15, 2025 3:11pm April 15, 2025 3:14pm 25.8 mmol/L 23.0-27.0 Point of Care testing FiO2 April 15, 2025 3:11pm April 15, 2025 3:14pm 60 % Point of Care testing Blood Gas Liter Flow April 15, 2025 3:11pm April 15, 2025 3:14pm 8 L/min Point of Care testing Blood Gas Sample Site April 15, 2025 3:11pm April 15, 2025 3:14pm Left radial Point of Care testing Oxygen Delivery Device April 15, 2025 3:11pm April 15, 2025 3:14pm Aerosol Point of Care testing Blood Gas Critical Value April 15, 2025 3:11pm April 15, 2025 3:14pm See comment Critical Value called on: 04/15/2025 at 15:13 Point of Care testing Bedside Glucose April 15, 2025 10:48pm April 15, 2025 10:54pm 348 mg/dL Random Glucose Reference Range is dependent on time and content of last meal. Glucose of more than 200 mg/dL in a nonstressed , ambulatory subject supports the diagnosis of Diabetes Mellitus. Point of Care testing Microbiology Results Procedure Source Result Collection Date/Time Result Date/Time Result Comment Performing Site Respiratory Panel (PCR) Nasopharyngeal April 15, 2025 3:03pm April 15, 2025 4:21pm [facility] [id number] [address] [place] [address] 49172 Diagnostic Imaging Reports Author Jd Lan [facility] Report Date/Time April 15, 2025 3:51pm [facility] [place] [id number] XRay Report Signed Patient: Ramiro Hallman MR#: [id number] : 1960 Acct:[id number] Age/Sex: 64 / M ADM Date: 5 Loc: ER Room: Type: [facility] ER Attending Dr: Copies to: Abel Perez PA-C~ Ordering Provider: Abel Perez PA-C Date of Service: 04/15/25 XR/XR chest 2V*: Shortness of Breath/Dyspnea Plain film chest 2 view HISTORY: Shortness of breath for several days. COPD exacerbation COMPARISON: 10/03/2024 FINDINGS: SUPPORT DEVICES: None POSTSURGICAL CHANGES: None HEART: Within normal limits PULMONARY MERCEDEZ: Hilar vascular prominence MEDIASTINUM: Unremarkable LUNGS AND PLEURA: Mild basilar parenchymal densities. Minimal blunting of the costophrenic angles. No pneumothorax. Hyperinflation. Moderate basilar scarring. BONY STRUCTURES: Degenerative change. Stable old right clavicle fracture. Hyperostosis of thoracic spine. ADDITIONAL FINDINGS None XR/XR chest 2V* IMPRESSION: CHF findings. COPD. Impression dictated by: Jd Lan M.D. 04/15/2025 3:51 PM [facility]ictation [facility] Transcribed By: [facility] 04/15/25 0421 Dictated By: Jd Lan DO 04/15/25 1549 Signed By: <Electronically signed by Jd Lan DO in OV> 04/15/25 1551 Vital Signs Vital Reading Result Reference Range Collection Date/Time Height 69 [in_i] April 11, 2025 10:07pm Weight 108.86 kg April 11, 2025 10:07pm Height 69 [in_i] April 15, 2025 10:30pm Weight 109.60 kg April 17 6:00am Body Temperature 98.2 [degF] 97.6-99.0 April 9:00am Heart Rate 70 /min 60-100 April 17 9:00am Respiratory rate 20 /min -April 9:00am Oxygen saturation by Pulse oximetry 91 % 95-100 April 17, 2025 9: 00am BP Systolic 142 mm[Hg] 100-140 April 17 9:00am BP Diastolic 83 mm[Hg] 60-100 April 17 9:00am Inhaled oxygen concentration 3 % April 15, 2025 10:30pm Inhaled oxygen flow rate 3 L/min Apr 9:01am Advance Directives Advance Directive Response Recorded Date/ Time Advance Directives No August 11:59am Insurance Providers Guarantor Ramiro Hallman Address [address] [place] [phone] Contact Info. Home Phone: Payer Policy Id Subscriber's Name Subscriber Id Effective Date Expiration Date Neli SESAY/BS [id number] Ramiro Hallman [id number] Medicaid [id number] Ramiro Marek Hallman [id number] Medicare [id number] Ramiro Marek [place] [id number] [facility] Adv [id number] Ramiro Hallman [id number] [facility] Dual Compl [id number] Ramiro Hallman [id number] Insurance No Card Encounters Encounter Location(s) Arrival/Admit Date Discharge /Depart Date Provider(s) Non-patient / Non-visit -[facility] March 11, 2025 3:24pm Leslye Lester MD Non-patient / Non-visit -[facility] March 26, 2025 1:57pm Leslye Lester MD Departed Clinical -[facility] April 11, 2025 9:16pm April 11, 2025 9:17pm Joo Trejo MD Discharged Inpatient -[facility] April 15, 2025 5:46pm April 17, 2025 12:12pm Gael Marrero DO Recent Diagnosis Onset Date Admit Date Acute exacerbation of chroni c obstructive pulmonary disease (COPD) Unknown April 15, 2025 5:46pm Functional Status Observation Response Date Recorded Dressing Patient at Baseline April 17, 2025 2:30pm Eating Patient at Baseline April 17, 2025 2:30pm Bathing Patient at Baseline April 17, 2025 2:30pm Disability Status Patient at Baseline April 2:30pm Mental Status Observation Response Date Recorded Cognitive Status Patient at Baseline April 2:30pm Cognitive/Mental Status Assessments Assessments Diagnosis Onset Date Resolution Status Admit Date Acute exacerbation of chroni c obstructive pulmonary disease (COPD) acute April 15, 2025 5:46pm Plan of Treatment Future Tests Future scheduled test information is unavailable Pending Tests Pending diagnostic test information is unavailable Future Visits Future appointment information is unavailable Referrals to Other Providers Reason for Referral Referral Start Date Provider Provider Contact Information Provider Address You have been scheduled for a follow up appointment for the following date and time, please call to reschedule if needed. BIANKA Turner Work Phone: [address] [place] [phone] Future Procedures Procedure Name Ordered Date Scheduled Date Admit Status Order April 15, 2025 5:46pm S eptember 2024 5:46pm Discharge Order April 17, 2025 12:07pm Octobe r 2024 12:07pm Future Medications Future medication information is unavailable Patient Instructions Instruction Admit Date Know your Meds April 15, 2025 5:46pm Goals Acute Goals Author Authored Date Exhibit optimal tissue perfu mónica * Exhibits adequate oxygenation and ventilation * Exhibits adequate cardiac output * Regains stable cardiac rhythm * Maintains optimal activity level * Maintains balanced intake and output [facility] April 17, 2025 2:31pm Maintain/increase activity levels * Understands factors that may lead to activity intolerance * Helps perform self care activities * Maintains maximum range of motion * Increase/regain muscle mass and strength * Maintains VS WNL during activity * Maintain intact skin integrity Updated: 08/30/2022 Teena Malone [facility] April 17, 2025 2:31pm Preferences Type Detail Treatment Intervention Code Status: Full Code Discharge Summary Note Author Gael Marrero [facility] Note Date/Time April 17, 2025 12 :09pm [facility] [address] [place], [place] [id number] Discharge Summary Signed Patient: Ramiro Hallman MR#: [id number] : 1960 Acct:[id number] Age/Sex: 64 / M Adm Date: 5 Loc: Room: [address] [place] [address]: Gael Marrero DO Copies to: Dali Trivedi, HAND POLISHER-BC Gael Marrero, ~ Providers Date of Discharge: 04/17/25 Discharging Provider: Gael Marrero Primary Care Provider: Dali Trivedi Discharge Diagnosis (1) Acute exacerbation of chronic obstructive pulmonary disease (COPD): Final Diagnosis Final Discharge Diagnosis: COPD exacerbation Summary Hospital Course Hospital course: Patient is a 64-year-old male with a past medical history of chronic respiratoryfailure on 3 L/min nasal cannula, RANCHO on CPAP, obesity, COPD who presented to the hospital with dyspnea. He was treated for COPD exacerbation. He improved with nebulizer treatment and steroids. He was discharged in stable condition onsteroid taper. He has inhalers including albuterol inhaler and nebulizer supplies at home. He follows up with [facility] pulmonology at [place]. He was instructed to follow-up with them in 1 week. He verbalized understanding. Condition Condition at Discharge: Stable Time Spent with Patient Time spent providing/coordinating discharge services (# min): 36 Discharge Plan Discharge Plan Patient Disposition: Home Instructions: Know your Meds Prescriptions: New prednisone 10 mg tablet 10 mg PO DIRECTED Qty: 30 0RF Rx Instructions: see taper instructions 40 mg qdx3 then 30 mg qdx3 then 10 mg qdx3 Continued omeprazole 20 mg capsule,delayed release(DR/EC) See Rx Instructions .ROUTE .COMPLEX Qty: 30 0RF Dose Instruction: TAKE 1 CAPSULE BY MOUTH EVERY DAY IN THE MORNING Rx Instructions: TAKE 1 CAPSULE BY MOUTH EVERY DAY IN THE MORNING aripiprazole 10 mg tablet See Rx Instructions .ROUTE .COMPLEX Qty: 30 0RF Dose Instruction: TAKE 1 TABLET BY MOUTH EVERY DAY Rx Instructions: TAKE 1 TABLET BY MOUTH EVERY DAY albuterol sulfate 90 mcg/actuation HFA aerosol inhaler 2 puff INHALATION BID pravastatin 80 mg tablet 40 mg PO QAM Trelegy Ellipta 100-62.5-25 mcg blister with device 1 inh INHALATION QAM alpha-1 proteinase inhib.(hum) 1,000 mg recon soln 1,000 mg IV QWEEK theophylline 200 mg tablet extended release 12 hr 200 mg PO BID venlafaxine 150 mg capsule,extended release 24hr 150 mg PO BID ipratropium bromide 21 mcg (0.03 %) spray,non-aerosol 2 spray intranasal BID PRN (Reason: nasal congestion) Jardiance 25 mg tablet 25 mg PO QAM glipizide 10 mg tablet 10 mg PO BID Rx Instructions: TAKE 1 TABLET BY MOUTH TWICE A DAY hydroxyzine HCl 25 mg tablet 25 mg PO QID PRN (Reason: itching) nystatin [Klayesta] 100,000 unit/gram powder 1 applic TOPICAL DAILY PRN (Reason: rash) Ozempic 0.25 mg or 0.5 mg (2 mg/3 mL) pen injector 0.5 mg subcut QWEEK Rx Instructions: INJECT 0.5 MG SUBCUTANEOUSLY ONCE A WEEK (Next dose due 04/16/25) diltiazem HCl [Cardizem CD] 240 mg capsule,extended release 24hr 240 mg PO DAILY (DME) CPAP (Continuous Positive Airway Pressure) Unit See Rx Instructions .Route Rx Instructions: Connect to 2L O2 during use. guaifenesin [Mucinex] 600 mg tablet extended release 12hr 600 mg PO Q12HR (DME) Oxygen Unit See Rx Instructions .Route Rx Instructions: 3L O2 N/C AATs Discontinued prednisone 20 mg tablet 20 mg PO DAILY Qty: 3 0RF Rx Instructions: take 40 mg for three days then resume 20 mg days after that Follow Up: Dali Trivedi, HAND POLISHER-BC [Primary Care Provider, Nursing] Continuity of Care Document Health Concerns: A [facility] screening has identified you as FRAIL or AT RISK FOR FRAILTY. This puts you at a higher risk for infection, illness, falls,and other injuries. Here are four ways to [...] Four Ways to Beat the Frailty Risk [email or web address].org/health/inyvjeme-vks-dmeldwlqff/vyae-mnroyy-sslc- tnwp-fb-escu-kix-fzrlijz-yqql Exam Physical Exam Vital Signs: Temp Pulse Resp BP Pulse Ox O2 Del Method O2 Flow Rate 98.2 F 70 20 142/83 H 91 L Nasal Cannula 3 04/17/25 09:00 04/17/25 09:00 04/17/25 09:00 04/17/25 09:00 04/17/25 09:00 04/17/25 09:01 04/17/25 09:01 FiO2 3 04/15/25 22:30 Narrative: Generally no acute distress HEENT head atraumatic normocephalic, neck supple Heart regular rate and rhythm Lungs good air movement bilaterally. No increased respiratory effort Abdomen soft nontender Neurologically intact throughout Extremities no edema, pulses intact Documented By: Gael Marrero DO 04/17/25 1207 Signed By: <Electronically signed by Gael Marrero DO> 04/17/25 1209 History & Physical Note Author Serene Cho [facility] Note Date/Time April 15, 2025 6:10pm [facility] [address] [place] [address] Hospitalist H&P Signed Patient: Ramiro Hallman MR#: [id number] : 1960 Acct:[id number] Age/Sex: 64 / M Adm Date: 5 Loc: ER Room: Type: [facility] ER Attending Dr: Copies to: ABRAHAM [place] MD Shelly A Lehmann, HAND POLISHER-~ HPI DATE OF EXAMINATION: 04/15/25 CHIEF COMPLAINT: Shortness of breath HISTORY OF PRESENT ILLNESS: This is a 64 yo male with history of COPD who presents to the ED for evaluation of SOB. The patient has been feeling increasingly SOB over the past 2-3 days, worse with exertion, associated with cough productive of dark sputum. Denies Fever or chills. CXR showed no infiltrate. He has increased work of breathing, especially with exertion. He received IV steroids and duoneb, and is admitted for further management Review of Systems Review of Systems All other systems reviewed & are negative unless noted below or in HPI [facility] Medical History Oxygen dependent 3L CONTINUOUS Obstructive sleep apnea (adult) (pediatric) Hypertension History of left heart catheterization GERD (gastroesophageal reflux disease) Essential hypertension Diabetes type 2, controlled Depression Chronic obstructive pulmonary disease Centrilobular emphysema Anxiety, generalized Lkxjv-2-mtxdbhwzdcz deficiency Family History (Updated 04/15/25 @ 18:03 by Lea Wallis RN) Father Family history of lung cancer Cancer throat cancer Other COPD (chronic obstructive pulmonary disease) Social History Smoking Status: Former smoker Tobacco Type: cigarettes Substance Use Type: None Substance Abuse Comment: THC gummies approx once a month Meds Medications and Allergies Allergies metformin Allergy (Unknown, Verified 04/15/25 14:33) Diarrhea Home Medications CPAP (Continuous Positive Airway [...] theophylline 400 mg tablet,extended release 24 hr 450 mg PO BID 09/14/23 [History Confirmed 10/04/24] [...] mg IV QWEEK 10/04/24 [History Confirmed 10/04/24] aspirin 81 mg [...] mg PO DAILY 10/04/24 [History Confirmed 10/04/24] azithromycin 250 mg tablet 250 mg PO DAILY 2 days #2 tabs 10/05/24 [Rx] cephalexin 500 mg capsule 500 mg PO BID 5 days #10 caps 10/05/24 [Rx] prednisone 20 mg tablet 20 mg PO DAILY #3 tabs 10/05/24 [Rx] Exam Physical Exam Vital Signs: Temp Pulse Resp BP Pulse Ox O2 Del Method O2 Flow Rate 97.9 F 88 28 H 148/70 H 97 Nasal Cannula 3 04/15/25 14:32 04/15/25 15:55 04/15/25 15:55 04/15/25 15:55 04/15/25 16:17 04/15/25 16:17 04/15/25 16:17 Narrative: General: cooperative, alert & oriented x3 HEENT: Normal oropharyngeal mucosa without any ulcers or exudates, Conjunctiva normal Lungs: expiratory wheezes bilaterally Heart: normal rate, regular rhythm, S1 normal, S2 normal and no murmurs GI: non-distended, soft, not firm and nontender. No rigidity or rebound. Neuro No obvious new focal deficit Musculoskeletal: normal range of motion Extrem: no cyanosis, no pedal edema Results - Hospitalist H&P Lab Results Labs: Laboratory Last Values Corrected WBC 9.7 X10E3/uL (4.1-10.5) 04/15/25 14:55 Uncorrected WBC Count 9.7 x10E3/uL (4.1-10.5) 04/15/25 14:55 RBC 5.95 x10E6/uL (3.90-5.60) H 04/15/25 14:55 Hgb 15.6 g/dL (13.0-17.0) 04/15/25 14:55 Hct 47.5 % (38.8-50.0) 04/15/25 14:55 MCV 79.8 fl (83.5-101) L 04/15/25 14:55 MCH 26.2 pg (27.5-35.2) L 04/15/25 14:55 MCHC 32.8 g/dL (32.5-35.6) 04/15/25 14:55 RDW 18.1 % (12.0-14.8) H 04/15/25 14:55 Plt Count 214 x10E3/uL (150-450) 04/15/25 14:55 MPV 7.4 fl (6.6-10.1) 04/15/25 14:55 Neut % (Auto) 86.0 % (.) 04/15/25 14:55 Lymph % (Auto) 8.6 % (.) 04/15/25 14:55 [place] % (Auto) 4.4 % (.) 04/15/25 14:55 Eos % (Auto) 0.3 % (.) 04/15/25 14:55 Baso % (Auto) 0.7 % (.) 04/15/25 14:55 Nucleat RBC Rel Count 0.1 /100 WBC (0-0.5) 04/15/25 14:55 Neut # (Auto) 8.3 x10E3/uL (1.8-7.7) H 04/15/25 14:55 Lymph # (Auto) 0.8 x10E3/uL (1.00-4.8) L 04/15/25 14:55 [place] # (Auto) 0.4 x10E3/uL (0.0-0.8) 04/15/25 14:55 Eos # (Auto) 0.0 x10E3/uL (0.0-0.45) 04/15/25 14:55 Baso # (Auto) 0.1 x10E3/uL (0.0-0.2) 04/15/25 14:55 Monocyte Dist Width 16.49 % (0.00-20.00) 04/15/25 14:55 PT 10.3 Seconds (9.0-12.9) 04/15/25 14:55 INR 0.9 04/15/25 14:55 APTT 31.0 Seconds (25.1-36.5) 04/15/25 14:55 Sample Site Left radial 04/15/25 15:11 ABG pH 7.42 (7.35-7.45) 04/15/25 15:11 ABG pCO2 38.7 mmHg (35.0-45.0) 04/15/25 15:11 ABG pO2 108.8 mmHg (80.0-100.0) H 04/15/25 15:11 ABG HCO3 24.6 mmol/L (23.0-29.0) 04/15/25 15:11 ABG Total CO2 25.8 mmol/L (23.0-27.0) 04/15/25 15:11 ABG O2 Saturation 97.9 % (95.0-100.0) 04/15/25 15:11 ABG O2 Content 9.5 mmol/L (6.6-9.7) 04/15/25 15:11 ABG Base Excess 0.3 mmol/L (-3.0-3.0) 04/15/25 15:11 O2 Delivery Device Aerosol 04/15/25 15:11 Liter Flow 8 L/min 04/15/25 15:11 FiO2 60 % 04/15/25 15:11 Critical Value 04/15/25 15:11 PHA Creatinine Clear 87.31 04/15/25 14:55 Sodium 139 mmol/L (136-145) 04/15/25 14:55 Potassium 3.9 mmol/L (3.5-5.1) 04/15/25 14:55 Chloride 102 mmol/L (98-107) 04/15/25 14:55 Carbon Dioxide 29.6 mmol/L (21.0-31.0) 04/15/25 14:55 Anion Gap 11.3 mEq/L (6.0-15.0) 04/15/25 14:55 BUN 22 mg/dL (7-25) 04/15/25 14:55 Creatinine 1.03 mg/dL (0.70-1.30) 04/15/25 14:55 Est GFR (CKD-EPI) > 60.0 mL/Min 04/15/25 14:55 Glucose 108 mg/dL (70-100) H 04/15/25 14:55 Calcium 9.1 mg/dL (8.6-10.3) 04/15/25 14:55 Total Bilirubin 0.6 mg/dl (0.3-1.0) 04/15/25 14:55 AST 13 U/L (13-39) 04/15/25 14:55 ALT 14 U/L (7-52) 04/15/25 14:55 Alkaline Phosphatase 79 U/L (34-104) 04/15/25 14:55 Total Creatine Kinase 43 U/L (30-223) 04/15/25 14:55 Troponin I High Sens 7 ng/L (0-20) 04/15/25 14:55 B-Natriuretic Peptide 17.0 pg/mL (5-100) 04/15/25 14:55 Total Protein 7.1 gm/dL (6.4-8.9) 04/15/25 14:55 Albumin 4.3 gm/dL (3.5-5.7) 04/15/25 14:55 Globulin 2.8 gm/dL 04/15/25 14:55 Albumin/Globulin Ratio 1.5 04/15/25 14:55 COVID-19 Clin Com Not detected (Not Detecte) 04/15/25 15:03 Microbiology Results Micro: Microbiology - Results from entire visit 04/15/25 15:03 Nasopharyngeal Respiratory Panel (PCR) - Final ABG Interpretation ABG results: 04/15/25 15:11 ABG pH 7.42 ABG pCO2 38.7 ABG pO2 108.8 H ABG HCO3 24.6 ABG Total CO2 25.8 ABG O2 Saturation 97.9 ABG O2 Content 9.5 ABG Base Excess 0.3 Assessment & Plan Assessment/Plan (1) Acute exacerbation of chronic obstructive pulmonary disease (COPD): Plan Acute hypoxic respiratory failure COPD exacerbation Plan: CXR shows vascular congestion vs scarring. will order low dose IV lasix, Duonebs, Solumedrol, zithromax, mucinex Supplemental oxygen Check echo DVT proph IP vs OBS Justification Based on differential dx, clinical care plan, and risk of adverse events, if untreated, in my clinical judgement this patient requires an acute care setting as: INPATIENT because of an expectation of an over 2 midnight stay. Estimated length of stay (# of days): 2 Documented By: Serene Cho MD 04/15/25 1735 Signed By: <Electronically signed by Serene Cho MD> 04/15/25 1810 Progress Note Author Gael Marrero [facility] Note Date/Time April 16, 2025 12:26pm [facility] [address] [place] [address] Hospitalist Progress Note Signed Patient: Ramiro Hallman MR#: [id number] : 1960 Acct:[id number] Age/Sex: 64 / M Adm Date: 5 Loc: Room: [address] [place] [address] Type: ADM IN Attending Dr: Gael Marrero DO Copies to: ~ Date of Service: 04/16/2025 Subjective Subjective Narrative: He reports that his dyspnea is better today. No chest pain or chest heaviness. He continues to have some dyspnea worse than his normal however. Exam Physical Exam Vital Signs: Temp Pulse Resp BP Pulse Ox O2 Del Method O2 Flow Rate 97.2 F L 74 21 131/72 98 Nasal Cannula 3 04/16/25 11:51 04/16/25 11:51 04/16/25 11:51 04/16/25 11:51 04/16/25 11:51 04/16/25 08:00 04/16/25 11:51 FiO2 3 09/29/25 22:30 Narrative: Generally no acute distress HEENT head atraumatic normocephalic, neck supple Heart regular rate and rhythm Lungs diminished bilaterally at the bases but better air movement superiorly. He has mild conversational dyspnea Abdomen soft nontender Neurologically intact throughout Extremities no edema, pulses intact Objective Lab Results 04/15/25 14:55 04/16/25 06:27 Microbiology Results Microbiology 04/15/25 15:03 Nasopharyngeal Respiratory Panel (PCR) - Final Meds Allergies and Active Meds Allergies metformin Allergy (Unknown, Verified 04/15/25 14:33) Diarrhea Active Meds: Active Medications Generic Name Dose Route Start Last Admin Trade Name Freq PRN Reason Stop Dose Admin Albuterol/Ipratropium 3 ml 04/15/25 20:00 04/16/25 11:39 Ipratropium/Albuterol 0.5-3 Mg 3 Ml Ampul.Neb INHALATION 04/15/26 19:59 3 ml QID.RESP KAITLIN Administration Aripiprazole 10 mg 04/16/25 09:00 04/16/25 08:01 Aripiprazole 10 Mg Tablet PO 04/16/26 08:59 10 mg DAILY KAITLIN Administration Enoxaparin Sodium 40 mg 04/16/25 10:00 04/16/25 09:50 Enoxaparin 40 Mg/0.4 Ml Syringe SUBCUT 04/16/26 09:59 40 mg DAILY@10 KAITLIN Administration Furosemide 20 mg 04/16/25 08:00 04/16/25 08:01 Furosemide 20 Mg/2 Ml Vial IV-PUSH 04/16/26 07:59 20 mg DAILY.8A KAITLIN Administration Glipizide 10 mg 04/16/25 08:00 04/16/25 08:01 Glipizide 5 Mg Tablet PO 04/16/26 07:59 10 mg BID.WITH.MEALS KAITLIN Administration Guaifenesin 600 mg 04/15/25 17:46 Guaifenesin 600 Mg Tab.Er.12h PO 04/15/26 17:45 BID PRN Congestion Influenza Virus Vacc Triv Types A&B 0.5 ml 04/17/25 09:00 Flu Vacc High-Dose Tv (65yr+)Pf 0.5 Ml Syringe 25-26 IM 04/17/25 09:01 .ONCE ONE Lisinopril 5 mg 04/16/25 09:00 04/16/25 08:01 Lisinopril 5 Mg Tablet PO 04/16/26 08:59 5 mg DAILY KAITLIN Administration Methylprednisolone Sodium Succinate 40 mg 04/15/25 22:00 04/16/25 06:04 Methylprednisolone Sod Succ/Pf 40 Mg/Ml (1ml) Vial IV-PUSH 04/15/26 21:59 40 mg Q8HR KAITLIN Administration Metoprolol Succinate 25 mg 04/15/25 18:30 04/16/25 08:01 Metoprolol Succinate 25 Mg Tab.Er.24h PO 04/15/26 18:29 25 mg DAILY KAITLIN Administration Pantoprazole Sodium 40 mg 04/16/25 09:00 04/16/25 08:01 Pantoprazole 40 Mg Tablet.Dr PO 04/16/26 08:59 40 mg DAILY KAITLIN Administration Pravastatin Sodium 40 mg 04/16/25 22:00 Pravastatin 40 Mg Tablet PO 04/16/26 21:59 HS KAITLIN Sodium Chloride 0 ml 04/15/25 14:32 04/16/25 06:04 Sodium Chloride 0.9 % 10 Ml Syringe IV-PUSH 04/15/26 14:31 10 ml PRN PRN Administration Flush Theophylline 200 mg 04/16/25 09:00 04/16/25 09:51 Theophylline Anhydrous 200 Mg Cap.Er.24h PO 04/16/26 08:59 200 mg BID KAITLIN Administration A&P - Hospitalist Assessment/Plan (1) Acute exacerbation of chronic obstructive pulmonary disease (COPD): Plan Acute hypoxic respiratory failure COPD exacerbation Plan: Anticipate discharge in next 1 to 2 days Appears euvolemic at this point. Resume current medications. Resume Duonebs, Solumedrol, zithromax, mucinex Supplemental oxygen Check echo DVT proph Documented By: Gael Marrero DO 04/16/25 1229 Signed By: <Electronically signed by Gael Marrero DO> 04/16/25 1222
--- OUTSIDE RECORDS SUMMARY | 2025-04-30 07:48 | XMS_ITS | Clinical Summary ---
Author Organization [facility] Address [address] [place] [address] Care Team Providers Care Heater Installer Name Role Phone Janet Benavides MD Primary Care Provider [phone] Douglas Pacheco DO Unavailable [phone] Allergies Active Allergy Reactions Criticality Noted [...] INJECT 0.5MG SUBCUTANEOUSLY WEEKLY 02/18/20 21 Active valACYclovir (VALTREX) 1 gram Take 2,000 mg by mouth twice daily. 12/29/19 21 Active VENLAFAXINE ER 150 MG TABLET,EXTEND ED RELEASE 24 HR Take 150 mg by mouth twice daily. 03/03/20 Active rfqqh-8-euigt inase inhibitor (Human) 1,000 mg in water [...] minutes 360 mL 4 03/11/20 Active Ipratropium [place] (ATROVENT) 21 mcg (0.03 %) nasal spray Use 2 sprays in the nose every 12 hours. 30 mL 2 03/11/20 Active theophylline ER 300 mg 12 hr tablet Take 1 tablet by mouth two times a day. 60 tablet 04/25/20 Active theophylline ER 200 mg 12 hr tablet Take 1 tablet by mouth two times a day. 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 Essential hypertension 02/14/2019 Chronic obstructive pulmonary disease 01/17/2019 Encounters Date Type Department Care Team Description 04/24/2025 Refill Pulmonary Medicine [address] [place] [address] Sara Lester MD Med Change Request 04/23/2025 Travel 04/21/2025 Telephone Pulmonary Medicine [address] [place] [address] Sara Lester MD Patient Update (Blood test is pending milo levels ); Orders 03/26/2025 Telephone Pulmonary Medicine [address] [place] [address] Sara Lester MD Patient Update 03/24/2025 Telephone Pulmonary Medicine [address] [place] [address] Sara Lester MD 03/24/2025 Results Follow-Up Pulmonary Medicine [address] [place] [address] Sara Lester MD 03/20/2025 Telephone Pulmonary Medicine [address] [place] [address] Sara Lester MD 03/19/2025 Telephone Pulmonary Medicine [address] [place] [address] Sara Lester MD 03/13/2025 Telephone Pulmonary Medicine [address] [place] [address] Sara Lester MD 03/12/2025 Refill Pulmonary Medicine [address] [place] [address] Sara Lester MD 03/11/2025 2:30 PM EDT Procedure Pulmonary Medicine [address] [place] [address] Spirometry 03/11/2025 1:45 PM EDT Office Visit Pulmonary Medicine [address] [place] [address] Sara Lester MD Chronic obstructive pulmonary disease, unspecified COPD type (HCC) (Primary Dx); Chronic respiratory failure with hypoxia (HCC); Chsaj-8-dlrevhxqigr deficiency (HCC); Chronic rhinitis; Obstructive sleep apnea (adult) (pediatric); Former smoker 03/11/2025 12:45 PM EDT Procedure Pulmonary Medicine [address] [place] [address] Spirometry 03/11/2025 12:15 PM EDT Procedure Pulmonary Medicine [address] [place] [address] Spirometry 03/11/2025 Travel 03/06/2025 Orders Only Respiratory [place] [address] [place] [address] Sara Lester MD Chronic obstructive pulmonary disease, unspecified COPD type (HCC) (Primary Dx) from Last 3 Months Social History Tobacco Use Types Packs/Day Years Used Date Smoking Tobacco: Former Cigarettes Tobacco Cessation:Counseling Given: Not Answered Comments:Almost 80 pack year smoker Area Deprivation Index Answer Date Chirag rded National Score (1-100), lower number is lower ri sk 61 03/11/2025 State Score (1-10), lower number is lower risk 4 03/11/2025 Data from: https://www.neighborhoodatlas.medicine.[facility].edu/. Last address used for calculation [address] 03/11/2025 Sex and Gender Information Value Date [...] 05/10/2025 12:30 PM EDT Procedure Pulmonary Medicine [address] [place] [address] Chronic obstructive pulmonary disease, unspecified COPD type (HCC) [J44.9] 05/10/2025 1:00 PM EDT Office Visit Pulmonary Medicine [address] [place] [address] [place] [address] [facility] [address] [place], [place] [id number] Chronic obstructive pulmonary disease, unspecified COPD type (HCC) [J44.9] Health Maintenance Due Date Last Done Comments Abdominal Aortic Aneurysm Screening 1960 HbA1C 11/04/1964 Diabetic Foot Exam 11/04/1969 Dilated [...] llness Visit 07/18/2024 Advance Directive Discussion 11/04/2024 Covid-19 Vaccine ( season) 2025 Influenza Vaccine (#1) 2025 , 05/16/2020, 05/10/2018 HIV Screening Completed 03/24/2021 Hepatitis C Screening Completed 03/24/2021 Procedures Procedure Name Priority Date/Time Associated Diagnosis Comments MILO/AMINOPHYLLINE Routine 04/23/2025 1: 53 PM EDT Pulmonary emphysema (HCC) MILO/AMINOPHYLLINE Routine 03/26/2025 1: 57 PM EDT Adverse effect of theophylline MILO/AMINOPHYLLINE Routine 03/11/2025 3: 24 PM EDT Chronic obstructive pulmonary disease, unspecified COPD type (HCC) COMPREHENSIVE METABOLIC PANEL Routine 03/11/2025 3:24 PM EDT Chronic obstructive pulmonary disease, unspecified COPD type (HCC) CBC + DIFF Routine 03/11/2025 3:24 PM EDT Chronic obstructive pulmonary disease, unspecified COPD type (HCC) [id number] BL Routine 03/11/2025 3:24 PM EDT Chronic [...] of breath Lung transplant candidate 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 Chronic fatigue SOB (shortness of breath) Centrilobular emphysema (HCC) *HEP C AB Routine 03/24/2021 3:44 PM EDT Shortness of breath Lung transplant candidate Bone disorder USP (current) use of systemic steroids Chronic fatigue SOB (shortness of breath) Centrilobular emphysema (HCC) LIPID PANEL, FASTING Routine 03/24/2021 3:44 PM EDT Shortness of breath Lung transplant candidate Bone disorder USP (current) use of systemic steroids Chronic fatigue SOB (shortness of breath) Centrilobular emphysema (HCC) from Last 3 Months or Most Recently Relevant to Health Maintenance Results * (ABNORMAL) THEOPHYLLINE/AMINOPHYLLINE (04/23/2025 1:53 PM EDT) Only the most recent of3 resultswithin the time period is included. [facility] Theophylline 3.1(L) 10.0 - 20.0 ug/mL 04/24/2025 3:43 AM EDT [facility] Comment:Reference ranges and high/low indicator flags are provided as general guidelines only. The treating physician must determine appropriate target levels/dosing based on the specific clinical situation. Blood BLOOD SPECIMEN / Unknown Venipuncture / Unknown 04/23/2025 1:53 PM EDT 04/23/2025 1:53 PM EDT us Sara Lester MD LABORATORY Final Result [facility] [address] [facility] [place] [address], * (ABNORMAL) COMPREHENSIVE METABOLIC PANEL (03/11/2025 3:24 PM EDT) [facility] Protein, Total 7.6 6.3 - 8.0 g/dL 03/11/2025 4:31 PM [facility] Albumin 4.7 3.9 - 4.9 g/dL 03/11/2025 4:31 PM [facility] Calcium, Total 9.9 8.5 - 10.2 mg/dL 03/11/2025 4:31 PM [facility] Bilirubin, Total 0.4 0.2 - 1.3 mg/dL 03/11/2025 4:31 PM [facility] Alkaline Phosphatase 115(H) 38 - 113 U/L 03/11/2025 4:31 PM [facility] AST 10(L) 14 - 40 U/L 03/11/2025 4:31 PM [facility] ALT 12 10 - 54 U/L 03/11/2025 4:31 PM [facility] Glucose 156(H) 74 - 99 mg/dL 03/11/2025 4:31 PM [facility] Comment: The [place] Diabetes Association (ADA) provides guidance for cutoff [...] Standards of Medical Care in Diabetes 2016, Australian Diabetes Association. Diabetes Care. 2016.39(Suppl 1). BUN 21 9 - 24 mg/dL 03/11/2025 4:31 PM [facility] Creatinine 0.85 0.73 - 1.22 mg/dL 03/11/2025 4:31 PM [facility] Sodium 140 136 - 144 mmol/L 03/11/2025 4:31 PM [facility] Potassium 4.0 3.7 - 5.1 mmol/L 03/11/2025 4:31 PM [facility] Chloride 100 98 - 107 mmol/L 03/11/2025 4:31 PM [facility] CO2 22 22 - 30 mmol/L 03/11/2025 4:31 PM [facility] Anion Gap 18(H) 8 - 15 mmol/L 03/11/2025 4:31 PM [facility] Estimated Glomerular Filtration Rate 96 >=60 mL/min/1. 73m 03/11/2025 4:31 PM [facility] Comment:Estimated Glomerular Filtration Rate (eGFR) is [...] EDT Sara Lester MD LABORATORY Final Result [facility] [address] [facility] [place] [address], [place] * (ABNORMAL) COMPLETE BLOOD COUNT AND DIFFERENTIAL (03/11/2025 3:24 PM EDT) WBC 13.55(H) 3.70 - 11.00 k/uL 03/11/2025 3:43 PM EDT [facility] RBC 6.39(H) 4.20 - 6.00 m/uL 03/11/2025 3:43 PM EDT [facility] Hemoglobin 16.6 13.0 - 17.0 g/dL 03/11/2025 3:43 PM EDT [facility] Hematocrit 52.5(H) 39.0 - 51.0 % 03/11/2025 3:43 PM EDT [facility] MCV 82.2 80.0 - 100.0 fL 03/11/2025 3:43 PM EDT [facility] MCH 26.0 26.0 - 34.0 pg 03/11/2025 3:43 PM EDT [facility] MCHC 31.6 30.5 - 36.0 g/dL 03/11/2025 3:43 PM EDT [facility] RDW-CV 17.0(H) 11.5 - 15.0 % 03/11/2025 3:43 PM EDT [facility] Platelet Count 359 150 - 400 k/uL 03/11/2025 3:43 PM EDT [facility] MPV 9.2 9.0 - 12.7 fL 03/11/2025 3:43 PM EDT [facility] Neutrophils % 87.7 % 03/11/2025 3:43 PM EDT [facility] Abs Neut 11.88(H) 1.45 - 7.50 k/uL 03/11/2025 3:43 PM EDT [facility] Lymphocytes % 7.5 % 03/11/2025 3:43 PM EDT [facility] Abs Lymph 1.01 1.00 - 4.00 k/uL 03/11/2025 3:43 PM EDT [facility] Monocytes % 3.9 % 03/11/2025 3:43 PM EDT [facility] Abs [place] 0.53 <0.87 k/uL 03/11/2025 3:43 PM EDT [facility] Eosinophils % 0.1 % 03/11/2025 3:43 PM EDT [facility] Abs Eosin <0.03 <0.46 k/uL 03/11/2025 3:43 PM EDT [facility] Basophils % 0.4 % 03/11/2025 3:43 PM EDT [facility] Abs Baso 0.06 <0.11 k/uL 03/11/2025 3:43 PM EDT [facility] Immature Granulocytes % 0.4 % 03/11/2025 3:43 PM EDT [facility] Abs Immature Gran 0.06 <0.10 k/uL 03/11/2025 3:43 PM EDT [facility] NRBC 0.1 /100 WBC 03/11/2025 3:43 PM EDT [facility] Absolute nRBC 0.02(H) <0.01 k/uL 03/11/2025 3:43 PM EDT [facility] Diff Type Auto 03/11/2025 3:43 PM EDT [facility] Blood BLOOD SPECIMEN / Unknown Venipuncture / Unknown 03/11/2025 3:24 PM EDT 03/11/2025 3:24 PM EDT us Sara Lester MD LABORATORY Final Result [facility] [address] [place] [address], * [id number] (03/11/2025 3:24 PM EDT) Alpha 1 Antitrypsin 112 90 - 200 mg/dL 03/12/2025 10:09 AM EDT [facility] Blood BLOOD SPECIMEN / Unknown Venipuncture / Unknown 03/11/2025 3:24 PM EDT 03/11/2025 3:24 PM EDT us Sara Lester MD LABORATORY Final Result [facility] [address] [facility] [address] [place] [address], * LUNG VOLUMES (03/11/2025 2:24 PM EDT) [...] FUNCTION LAB - 03/12/2025 1:37 PM EDT [facility] [address] [facility] 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 Patient has dyspnea, COPD and was tachypneic. 2 techs attempted. Best test reported despite difficult testing session. // IMPRESSION: Lung volumes (FRC and/or RV) are elevated indicating hyperinflation and air trapping. Electronically Signed On 03-12-2025 13:37:37 EDT by Tory Mukherjee MD ID: [id number] Name: RICARDO HALLMAN Race: White Ht: 68.90 in Wt: 240.30 lbs Age: 64 Gender: Male : 1960 Dx: Chronic obstructive pulmonary disease, unspecified Smoking Hx: Non-smoker Doctor: SARA LESTER Test Date: 03/11/2025 Site: Tech: Gabbie [...] reported despite difficult testing session. // us Sara Lester MD SCHEDULED PROCEDURES Final Resul t [facility] [address] [facility]. [place], [place] [address] * LUNG DIFFUSION CAPACITY (DLCO) (03/11/2025 12:26 [...] ULN (L/S) 1.83 L/S [facility] IBO49-43% PRE (L/S) 0.30 L/S [facility] LNW10-59% POST (L/S) 0.32 L/S [facility] IFO14-22% PREDICTED (L/S) 2.61 L/S [facility] AQT98-63% LLN (L/S) 1.21 L/S [facility] [...] FUNCTION LAB - 03/12/2025 1:32 PM EDT [facility] [address] [facility] 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 //RK us Sara Lester MD SCHEDULED PROCEDURES Final Resul t [facility] [address] [facility] [place] [address] * SPIROMETRY WITH DILATOR IF OBSTRUCTED (03/11/2025 12:26 PM EDT) 03/11/2025 12:2 6 PM EDT Narrative [facility] - 03/12/2025 1:32 PM EDT [facility] [address] [facility] 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 [address] * HIV 1 2 COMBO(AG/AB),WITH REFLEX TO DIFFERENTIATION (03/24/2021 3:44 PM EDT) HIV 12 Combo (Ag/Ab) Non Reactive Non Reactive 03/24/2021 6:36 PM EDT [facility] HIV 1/2 Ab Confirmatory Test Not Indicated 03/24/2021 6:36 PM EDT [facility] HIV Interpretation Negative 03/24/2021 6:36 PM EDT [facility] Comment: No evidence of HIV-1 or HIV-2 infection. Should recent infection be suspected, repeat testing may be considered 2-3 weeks after this draw. HIV Information: [place] Rev. Code 3701.243(E): This information has been [...] DO LABORATORY Final Result Performing Organization Address [facility]/ZIP Co de Phone Number [facility] [address] [place] [address] [facility] [address] [place] [address] * (ABNORMAL) LIPID PANEL BASIC (03/24/2021 3:44 PM EDT) Cholesterol, Total 220(H) <200 mg/dL 03/24/2021 6:37 PM [facility] Comment: <200 mg/dL, Desirable 200-239 mg/dL, Borderline high >239 mg/dL, High Triglyceride 244(H) <150 mg/dL 03/24/2021 6:37 PM [facility] Comment: <150 mg/dL, Normal 150-199 mg/dL, Borderline high 200-499 mg/dL, High >499 mg/dL, Very high HDL Cholesterol 99 >39 mg/dL 6:37 PM [facility] Comment: 40-59 mg/dL, Acceptable >59 mg/dL, High: Negative risk factor for coronary heart disease <40 mg/dL, Low: Positive risk factor for coronary heart disease LDL Cholesterol, Calculated 72 <100 mg/dL 03/24/2021 6:37 PM [facility] Comment: <100 mg/dL, Optimal 100-129 mg/dL, Near optimal/above optimal 130-159 mg/dL, Borderline high 160-189 mg/dL, High >189 mg/dL, Very high Secondary prevention optimal LDL Cholesterol levels are recommended to be < 70 mg/dL Non HDL Cholesterol 121 <130 mg/dL 03/24/2021 6:37 PM [facility] Comment: <130 mg/dL, Optimal 130-159 mg/dL, Near optimal/above optimal 160-189 mg/dL, Borderline high 190-219 mg/dL, High >219 mg/dL, Very high Secondary prevention optimal non HDL Cholesterol levels are recommended to be < 100 mg/dL Fasting Time Unknown hrs 03/24/2021 6:37 PM [facility] VLDL Cholesterol 49(H) <30 mg/dL 03/24/20 6:37 PM [facility] TC:HDL Ratio 2.22 <5.10 03/24/2021 6:37 PM [facility] LDL:HDL Ratio 0.73 <2.54 03/24/2021 6:37 PM [facility] Comment: Reference: 1. National Cholesterol Education Program ATP III Guideline At-A-Glance Quick Desk Reference: National Heart, Lung, and Blood [place]. National Institutes of Health. 2001: NIH Publication No. 01-3305. 2. An International Atherosclerosis Society position paper: global recommendations for the management of dyslipidemia: executive summary, Atherosclerosis. 2014: 232(2):410-413. Blood BLOOD SPECIMEN / Unknown 03/24/2021 3:44 PM EDT 03/24/2021 3:46 PM EDT [facility] Final Result Performing Organization Address [facility] Co de Phone Number [facility] [address] [place] [address] [facility] [address] [place] [address] * (ABNORMAL) HEP REMOTE PANEL BL (03/24/2021 3:44 PM EDT) Hep B Core Ab, Total Negative Negative 03/24/2021 6:57 PM EDT [facility] Hep C Antibody IA Negative Negative 03/24/2021 6:58 PM EDT [facility] HBsAg Negative Negative 03/24/2021 6:57 PM EDT [facility] Hep B Surface Ab, Qual Positive(A) Negative 03/24/2021 6:57 PM EDT [facility] Comment: These results are consistent with previous exposure and/or immunity to the hepatitis B virus antigen. Blood BLOOD SPECIMEN / Unknown 03/24/2021 3:44 PM EDT 03/24/2021 3:46 PM EDT [facility] LABORATORY Final Result Performing Organization Address City/[facility]/ZIP Co de Phone Number [facility] [address] [place] [address] [facility] [address] [place] [address] from Last 3 Months or Most Recently Relevant to Health Maintenance Insurance [employer] HMO [employer] O Care Teams Heater Installer Relationship Specialty Start Date End Date Janet Benavides MD [address] [place] [address] PCP - General Family Medicine 03/12/20 Douglas Pacheco DO [address] [place] [address] Referring Pulmonary and Critical Care Medicine 03/12/20
--- OUTSIDE RECORDS SUMMARY | 2025-04-30 07:48 | XMS_ITS | Encounter Summary ---
Author Organization [facility] Address [address] [place] [address] Care Team Providers Care Specialty Sales Consultant Name Role Phone Janet Benavides MD Primary Care Provider Douglas Pacheco DO Unavailable [phone] Source Comments In the event this information is protected by the Federal Confidentiality of Alcohol and Drug AbusePatient Records regulations: The Federal rules restrict any use of the information to criminally investigate or prosecute any alcohol or drug abuse patient.[facility] Encounter Details Date Type Department Care Team (Late st Contact Info) Description 12/23/2021 Patient Msg Transplant Center [address] [phone] Provider, [facility] Transplant Appointments Social History Tobacco Use Types Packs/Day Years Used Date Smoking Tobacco: Never Assessed Area Deprivation Index Answer Date Chirag rded National Score (1-100), lower number is lower ri sk Not on file 03/18/2021 State Score (1-10), lower number is lower risk N ot on file 03/18/2021 Data from: https://www.neighborhoodatlas.medicine.[facility].edu/. Last address used for calculation [...] 05/10/2025 12:30 PM EDT Procedure Pulmonary Medicine [address] [place] [address] Chronic obstructive pulmonary disease, unspecified COPD type (HCC) [J44.9] 05/10/2025 1:00 PM EDT Office Visit Pulmonary Medicine [address] [place] [address] [place] [address] [place] [address] Chronic obstructive pulmonary disease, unspecified COPD type (HCC) [J44.9] documented as of this encounter Visit Diagnoses Not on filedocumented in this encounter Care Teams Specialty Sales Consultant Relationship Specialty Start Date End Date Janet Benavides MD [address] [place] [address] PCP - General Family Medicine 03/12/20 Douglas Pacheco DO [address] [place] [address] Referring Pulmonary and Critical Care Medicine 03/12/20 documented as of this encounter
--- OUTSIDE RECORDS SUMMARY | 2025-04-30 07:48 | XMS_ITS | Encounter Summary ---
Author Organization [facility] Address [address] [place] [address] Care Team Providers Care Senior Hadoop Developer Name Role Phone Janet Benavides MD Primary Care Provider [phone] Douglas Pacheco DO Unavailable [phone] Source Comments In the event this information is protected by the Federal Confidentiality of Alcohol and Drug AbusePatient Records regulations: The Federal rules restrict any use of the information to criminally investigate or prosecute any alcohol or drug abuse patient.[facility] Encounter Details Date Type Department Care Team (Late st Contact Info) Description 11/26/2021 Patient Msg Transplant [facility] [address] [id number] Provider, [facility] Voice Mail Social History Tobacco Use Types Packs/Day Years Used Date Smoking Tobacco: Never Assessed Area Deprivation Index Answer Date Chirag rded National Score (1-100), lower number is lower ri sk Not on file 03/18/2021 State Score (1-10), lower number is lower risk N ot on file 03/18/2021 Data from: https://www.neighborhoodatlas.medicine.[facility].edu/. Last address used for calculation Not on [...] 05/10/2025 12:30 PM EDT Procedure Pulmonary Medicine [address] [place] [address] Chronic obstructive pulmonary disease, unspecified COPD type (HCC) [J44.9] 05/10/2025 1:00 PM EDT Office Visit Pulmonary Medicine [address] [place] [address] [place] [address] [place] [address] Chronic obstructive pulmonary disease, unspecified COPD type (HCC) [J44.9] documented as of this encounter Visit Diagnoses Not on filedocumented in this encounter Care Teams Senior Hadoop Developer Relationship Specialty Start Date End Date Janet Benavides MD [address] [place] [id number] PCP - General Family Medicine 03/12/20 Douglas Pacheco DO [address] [place] [address] Referring Pulmonary and Critical Care Medicine 03/12/20 documented as of this encounter
--- OUTSIDE RECORDS SUMMARY | 2025-04-30 07:49 | XMS_ITS | Patient Health Record ---
Author Organization [facility] [place] Address [address] [place] [address] Care Team Providers Care Lacquer Mixer Name Role Phone ShikhaDali Powers Primary Care Provider Ludivina vailable Douglas Pacheco Unavailable [phone] Allergies Allergen (clinical drug ingredient) Drug/Non Drug Allergy documented on EMR Reaction Allergy Type Onset Date Status metformin Metformin diarrhea Drug Allergy Active Results Component Value Reference Range Notes ECG 12 lead Reviewed date:12/19/2024 07:19:18 AM Interpretation: Performing Lab: Notes/Report: Source Facility: [place] [address] Electrocardiograph Report Signed Patient: RICARDO HALLMAN MR#: [id number] : 1960 Acct:[id number] Age/Sex: 64 / M ADM Date: 12/18/24 Loc: CARD Attending Dr: Douglas Pacheco D.O. Ordering Physician: Douglas Pacheco D.O. 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 Measurements Intervals [place] Rate: 100 P: 77 NC: 161 QRS: 50 QRSD: 93 T: 91 [...] Signed By: 12/18/24180912/18/24 181 DD/ 1437 TD/TT: Nurse Orthopedic: ECG 12 lead Reviewed date:12/19/2024 07:18:59 AM Interpretation: Performing Lab: Notes/Report: Source Facility: [place] [address] Electrocardiograph Report Signed Patient: RICARDO HALLMAN MR#: [id number] : 1960 Acct:[id number] Age/Sex: 64 / M ADM Date: 12/18/24 Loc: CARD Attending Dr: Douglas Pacheco D.O. Ordering Physician: Douglas Pacheco D.O. 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 Measurements Intervals [place] Rate: 96 P: 73 NC: 150 QRS: 54 QRSD: 98 T: 87 QT: 365 QTc: 463 Interpretive Statements SINUS RHYTHM WITH OCCASIONAL SUPRAVENTRICULAR PREMATURE COMPLEXES [place] ECG Compared to ECG 12/18/2024 14:37:29 Sinus tachycardia no longer present ST (T wave) deviation no longer present Electronically Signed On 12-18-2024 18:10:48 EDT by JAGRUTI DOMINIQUE M.D. Dictated By: JAGRUTI DOMINIQUE Signed By: 12/18/24 1811 DD/ 1439 TD/TT: Nurse Orthopedic: THEOPHYLLINE Reviewed date:04/30/2024 08:12:03 PM Interpretation: Performing Lab: Notes/Report: [facility] , Theophylline 13.7 10.0-20.0 ug/mL Performing Lab: see note ML - [facility] LB PROF CHEM 8 (BAS METB) Reviewed date:04/30/2024 08:12:03 PM Interpretation: Performing Lab: Notes/Report: [facility] , Sodium 137 136-145 mmol/L Potassium 4.8 3.5-5.1 mmol/L Chloride 101 98-107 mmol/L Carbon Dioxide 26.0 21.0-32.0 mmol/L Anion Gap 14.8 Glucose 189 74-106 mg/dL Blood Urea Nitrogen 19.0 7.0-18.0 mg/dL Creatinine 1.20 0.70-1.30 mg/dL Estimated GFR ( Elizabeth >60 >=60 mL/mi n/1.73m 2 Estimated GFR (Non- Surekha >60 >=60 mL/mi n/1.73m 2 BUN Creatinine Ratio 15.8 Calcium 9.6 8.5-10.1 mg/dL Performing Lab: see note ML - [facility] LB CBC AUTO DIFF Reviewed date:04/30/2024 08:12:03 PM Interpretation: Performing Lab: Notes/Report: [facility] , White Blood Count 16.6 4.0-11.0 [...] Performing Lab: see note ML - [facility] Reason For Referral Reason Tachycardia, frequen t PACs & PVCs Diagnosis 1 Tachycardia, unspeci fied (R00.0) Referral Organization [facility] [place] Referring Provider First Name Douglas Referring Provider Last Name Tara Referring Provider Speciality Pulmonolog y Referred Provider Calli Devlin Referred Provider Specialty Cardiology General Notes Faisal Ayala 12/18 04:56:55 PM >Referral was taken to Racheal Mclaughlin at [facility] Cardiology.Jamie Riley 12/20/2024 11:19:56 AM >I called and spoke with Vianney at [facility] Cardiology who confirmed the referral was received and states she has left a voicemail for the patient to call the office. Vianney states the patient was previously under [facility] Cardiology care but did not follow up in the past.Jamie Riley 12/27/2024 11:16:15 AM >I called and spoke with Vianney at [facility] Cardiology who states the patient has not returned the call to schedule. I personally called the patient and advised him he needs to return the call to [facility] Cardiology and schedule. Patient verbalized understanding and states he planned on calling today.Jamie Riley 12/27/2024 01:28:07 PM >Patient called and left a voicemail stating he is scheduled with [facility] on 01/24/2025 at 1400.Jamie Riley 01/24/2025 04:54:17 PM >Consult letter received and scanned to Dr.Samsa for review. Referral Priority Routine Referral Appointment Date 01/24/2025 Medications Medication SIG (Take, Route, Frequency, Duration) Notes Start Date End Date Status Ipratropium-Albuterol 0.5-2.5 (3) MG/3ML 3mL Inhalation QID; Duration: 30 days Dispense 120 each Active Theophylline ER 400 mg 1 tablet Orally B ID; Duration: 90 days Active Jardiance 25 MG TAKE 1 TABLET BY BEVERLY TH DAILY Oral; Duration: 30 Days Active Lisinopril 5 MG 1 tablet Orally Once a day Active Trelegy Ellipta 100-62.5-25 MCG/ACT INHALE 1 PUFF BY MOUTH EVERY DAY RINSE MOUTH AFTER USE; Duration: 90 Active Albuterol Sulfate HFA 108 (90 Base) MCG/ACT 2 puffs as needed for SOB Inhalation Q4H; Duration: 90 days Active Venlafaxine HCl ER 150 MG 1 tablet with food Orally Once a day Active dilTIAZem HCl ER 240 MG 1 capsule Orally Once a day Active Pravastatin Sodium 40 MG 1 tablet Orally Once a day Active Furosemide 40 MG 1 tablet Orally Once a day Active predniSONE 20 MG 1 tablet Orally QD; Duration: 90 days Active glipiZIDE 10 MG 1 tablet 30 minutes before breakfast Orally Once a day Active Prolastin-C 1000 MG/20ML as directed Intravenous Active HYDROcodone-Acetaminophen 5-325 MG 1 tablet as needed Orally every 6 hrs Active Sodium Chloride 3 % 3mL Inhalation TID; Duration: 30 days Dispense 90 each 12/07/2023 Active Metoprolol Succinate ER 25 MG 1 tablet Orally Once a day Active ALPRAZolam 0.5 MG TAKE 1 TABLET BY BEVERLY TH TWICE DAILY NEEDED Oral; Duration: 30 Days Active Mucinex DM 30-600 MG 1 to 2 tablets PRN chest congestion Orally BID; Duration: 90 days Active ARIPiprazole 10 MG 1 [...] Administration Date Status Comme nts Flu, Flucelvax (02612) 6 mos and older, single-dose syringe () Unknown 04/30/2024 Administered Flu, Flucelvax (02510) 2 yrs +, single-dose syringe (0618-0618) Unknown 05/16/2020 Administered Pneumococcal (Prevnar 13) Unknown [...] Problem Status W/U Status Risk Notes Problem Chronic obstructive pulmonary disease (92457923) Chronic obstructive pulmonary disease, unspecified (J44.9) Active confirmed Problem Jmdrg-0-ijdasohz sin deficiency (41958794) 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 Genotype : MZ , 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 (113.6mg /dL) Problem Centrilobular emphysema (36075394) Centrilobular emphysema (J43.2) Active confirmed Problem Chronic respiratory failure (30386609) Chronic respiratory failure with hypoxia (J96.11) Active confirmed Problem Long-term current use of inhaled steroid (256769650) shelter (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 (Z79.51) Active confirmed Problem Long-term current use of systemic steroid (867767329120439 ) shelter (current) use of systemic steroids (Z79.52) Active confirmed Problem Obesity (511551278) Obesity (E66.9) Active confirmed Problem Obstructive sleep apnea syndrome (93861453) RANCHO (obstructive sleep apnea) (G47.33) Active confirmed Problem Generalized anxiety disorder (85237488) CANDACE (generalized anxiety disorder) (F41.1) Active confirmed Problem Acute exacerbation of chronic obstructive airways disease (911639884) COPD exacerbation (J44.1) Active confirmed Problem Type II diabetes mellitus well controlled (591501871) Diabetes mellitus type 2, controlled (E11.9) Active confirmed Problem Ex-tobacco user (finding) (319385060) History of tobacco abuse (Z87.891) Active confirmed 3ppd x 40 years (120 pack-yea rs), quit 2012 Problem Long-term current use of insulin (471985273) Long-term insulin use (Z79.4) Active confirmed Problem Leukocytosis (606998867) Elevated WBCs (D72.829) Active confirmed Problem Essential hypertension (98104907) BP (high blood pressure) (I10) Active confirmed Problem Hypertensive disorder (87733466) Chronic hypertension (I10) Active confirmed Problem Diabetes mellitus (91795233) Diabetes mellitus (E11.9) Active confirmed Problem Obese class II (505214585910724 ) Body mass index [BMI] 35.0-35.9, adult (Z68.35) Active confirmed Problem Body mass index 35.00 to 39.99 (943708985623278 ) Body mass index [BMI] 37.0-37.9, adult (Z68.37) Active confirmed Problem History of COVID-19 (178193352062349 105) History of COVID-19 (Z86.16) Active confirmed Vital [...] Encounter Location Date Provider Diagnosis [facility] [address] [place] [address] 06/20/2024 Douglas Pacheco [address]obular emphys lane J43.2 ; Bueje-3-aqerkemijlm deficiency E88.01 ; Chronic respiratory failure with hypoxia J96.11 ; RANCHO (obstructive sleep apnea) G47.33 ; Diabetes mellitus type 2, controlled E11.9 ; Obesity E66.9 ; exterminator termite (current) use of systemic steroids Z79.52 ; exterminator termite (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 Z79.51 and History of tobacco abuse Z87.891 [facility] [place] [address] [place] [address] 09/19/2024 Douglas Pacheco Centrilobular emphys lane J43.2 ; Efpye-9-hgjbhzqkutb deficiency E88.01 ; Chronic respiratory failure with hypoxia J96.11 ; RANCHO (obstructive sleep apnea) G47.33 ; Diabetes mellitus type 2, controlled E11.9 ; Obesity E66.9 ; shelter (current) use of systemic steroids Z79.52 ; exterminator termite (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 Z79.51 and History of tobacco abuse Z87.891 Pulmonary [facility] [address] [place] [address] 12/18/2024 [facility] Centrilobular emphys lane J43.2 ; Tachycardia, unspecified R00.0 ; Totrz-9-pvhynbpqajx deficiency E88.01 ; Chronic respiratory failure with hypoxia J96.11 ; RANCHO (obstructive sleep apnea) G47.33 ; Diabetes mellitus type 2, controlled E11.9 ; Obesity E66.9 ; exterminator termite (current) use of systemic steroids Z79.52 ; exterminator termite (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 Z79.51 and History of tobacco abuse Z87.891 [facility] [address] [place] [address] 05/30/2024 [facility] Pulmonary [facility] [address] [place] [address] 07/02/2024 [facility] Pulmonary [facility] [address] [place] [address] 2024 [facility] Pulmonary [facility] [address] [place] [address] 12/19/2024 [facility] Pulmonary [facility] [address] [place] [address] 01/31/2025 [facility] Assessments Encounter Date Diagnosis (ICD Code) Assessment Notes Treatment Notes Treatment Clinical Notes Section Notes 06/20/2024 Tzhie-4-jvvsvzxdk in deficiency (ICD-10 - E88.01) Genotype: MZ [...] at this time. He previously went to [place] for evaluation of endobronchial valves or lung [...] Participated in pulmonary rehab. Was evaluated in [place] for endobronchial valves & lung transplant ~2022, but he was deemed to be in too good a shape at that time. Clinical status has declined. He was instructed to return to [place] for re-evaluation, but he has not gone - he was reminded to contact their office to schedule an appointment as he is already established there. 12/18/2024 Tachycardia, unspecified (ICD-10 - R00.0) Tachycardic and irregular on examination. Concern for afib - he has severe COPD. Ordered a STAT EKG through [facility] (was done in my presence as [...] contribute to tachycardia and ectopy. He saw [facility] Dr. Devlin ~7 years ago. I recommended re-evaluation by cardiology as I am limited on what I am able to do for him currently. 12/18/2024 Ojqgo-7-hmwwnpqtk in deficiency (ICD-10 - E88.01) Genotype: MAURA , 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 (113.6mg/dL) He is to [...] then I would recommend a port. 09/19/2024 Dqwek-4-nhvrozibm in deficiency (ICD-10 - E88.01) Genotype: MAURA , 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 (113.6mg/dL) Restarted Prolastin. Continue with weekly infusions. 06/20/2024 Chronic respiratory failure with hypoxia (ICD-10 - J96.11) Ffom-hb-zedh encounter performed with the patient to document [...] of requiring O2.-Recommendations : Continue O2 ATC 09/19/2024 Chronic respiratory failure with hypoxia (ICD-10 - J96.11) Tgam-sk-luri encounter performed with the patient to document [...] sleep apnea) (ICD-10 - G47.33) Previously addressed: Foxb-wn-nwav encounter performed with the patient to document continued need for PAP therapy. -Current DME: RTU-Edzgz-gdejm 02/23/2023 AHI 20; BiPAP titration: 30/04 -Compliance [...] use. Patient voices no concerns toay.-Note: This donn-ej-oytc visit comes with my authorization that the patient's DME may request to renew, reorder, and/or replace tubing, supplies, mask, and/or PAP device (if applicable). 12/18/2024 Chronic respiratory failure with hypoxia (ICD-10 - J96.11) Kfrd-tg-krbe encounter performed with the patient to document [...] RANCHO (obstructive sleep apnea) (ICD-10 - G47.33) Lorg-lz-ebrm encounter performed with the patient to document continued need for PAP therapy. -Current DME: SIW-Dfygr-agdpf 02/23/2023 AHI 20; BiPAP titration: 30/04 -Compliance was reviewed from 02/11/2024 - 03/11/2024-Total days used: 30 (100%)-Total of all days >4 hours of use: 29 (97%)-Current model, mode, & pressure: AirCurve 10 VAuto-Residual AHI: 0.3-Air leak (95th percentile): 39.6L/min-Mask/harn ess fitting: Has a leak from the anderson-Sleep quality: Makes me sleep really good. -Daytime hypersomnolence: Decreased with PAP use-Recommendations : Continues to have excellent compliance and voices no issues.-Note: This fcbh-td-koab visit comes with my authorization that the patient's DME may request to renew, reorder, and/or replace tubing, supplies, mask, and/or PAP device (if applicable). 06/20/2024 Diabetes mellitus type 2, controlled (ICD-10 - E11.9) Goal is to eventually get patient off steroids d/t underlying DM2. 09/19/2024 RANCHO (obstructive sleep apnea) (ICD-10 - G47.33) Previously addressed: Xfcb-mc-vbgh encounter performed with the patient to document continued need for PAP therapy. -Current DME: DCA-Pipuu-lfpii 02/23/2023 AHI 20; BiPAP titration: 30/04 -Compliance [...] use. Patient voices no concerns toay.-Note: This dpxk-pv-eelz visit comes with my authorization that the patient's DME may request to renew, reorder, and/or replace tubing, supplies, mask, and/or PAP device (if applicable). 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 Monitor for hyperglycemia. 06/20/2024 Obesity (ICD-10 - E66.9) Continue losing weight. 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 Monitor for hyperglycemia. 09/19/2024 Obesity (ICD-10 - E66.9) Weight loss advised. 12/18/2024 Obesity (ICD-10 - E66.9) Weight loss advised. 06/20/2024 exterminator termite (current) use of systemic steroids (ICD-10 - Z79.52) Discussed adverse effects of longshore equipment operator systemic steroids including, but not limited to: increased risk of cataracts, elevated blood sugars/worsening of underlying diabetes mellitus, impaired wound healing, gastrointestinal ulcers, osteoporosis. 06/20/2024 exterminator termite (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 (ICD-10 - Z79.51) Patient was counseled to rinse & gargle with water after inhaled corticosteroid use. 09/19/2024 shelter (current) use of systemic steroids (ICD-10 - Z79.52) Discussed adverse effects of longshore equipment operator systemic steroids including, but not limited to: increased risk of cataracts, elevated blood sugars/worsening of underlying diabetes mellitus, impaired wound healing, gastrointestinal ulcers, osteoporosis. 12/18/2024 shelter (current) use of systemic steroids (ICD-10 - Z79.52) Discussed adverse effects of intermediate systemic steroids including, but not limited to: [...] pack-years), quit 2012 LDCT due 12/2024. 09/19/2024 exterminator termite (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 (ICD-10 - Z79.51) Patient was counseled to rinse & gargle with water after inhaled corticosteroid use. 09/19/2024 History of tobacco abuse (ICD-10 - Z87.891) 3ppd x 40 years (120 pack-years), quit 2012 3ppd x 40 years (120 pack-years), quit 2012 LDCT due 12/2024. 12/18/2024 History of tobacco abuse (ICD-10 - Z87.891) 3ppd x 40 years (120 pack-years), quit 2012 3ppd x 40 years (120 pack-years), quit 2012 LDCT due 12/2024. 06/20/2024 Other Had COVID-19 again 10/16/2023. 09/19/2024 Other Plan Of Treatment Future Test Test Name Order Date CT Chest Low Dose for Screening* 025 Insurance Providers Payer Name Payer Address Payer Phone Subscriber Number Group Number Insured Name Patient Relationship to Insured Coverage Start Date Coverage End Date [facility] [employer] [address] [place] [address] [phone] [id number] Ricardo Hallman Self - patient is the insured MEDICAID [place] 2ND INS [address] OFFICE OF [place], [place] [id number] [phone] [id number] Ricardo Hallman Self - patient is the insured 3 Medical (General) History Medical History History ICD Code Centrilobular emphysema J43.2 Apive-6-kxqihoqlvgr deficiency E88.01 Chronic respiratory failure with hypoxia J96.11 RANCHO (obstructive sleep apnea) G47.33 Diabetes mellitus type 2, controlled E11 .9 GERD (gastroesophageal reflux disease) K 21.9 Essential Hypertension I10 Depression F32.A Obesity E66.9 exterminator termite (current) use of inhaled stero ids Z79.51 History of tobacco abuse Z87.891 History of COVID-19 Z86.16 Surgical History Surgery Date(Month/Year) oral surgery Hospitalization History Reason Date(Month/Year) COPD Exacerbation-[facility] 04/28/2024 Yakyi-43-PKA ER 10/16/2023 COPD Exacerbation-[facility] 06/20/2023 COPD Exacerbation-[facility] 12/20/2022
--- OUTSIDE RECORDS SUMMARY | 2025-04-30 07:49 | XMS_ITS | Clinical Summary ---
Author Organization [facility] Address [address] [place] [address] Care Team Providers Care Line Service Technician Name Role Phone Unavailable Primary Care Provider [...]
--- OUTSIDE RECORDS SUMMARY | 2025-04-30 07:49 | XMS_ITS | Encounter Summary ---
Author Organization [facility] Address [address] [place] [address] Care Team Providers Care Heel Compressor Name Role Phone Janet Benavides MD Primary Care Provider [phone] Douglas Pacheco DO Unavailable [phone] Source Comments In the event this information is protected by the Federal Confidentiality of Alcohol and Drug AbusePatient Records regulations: The Federal rules restrict any use of the information to criminally investigate or prosecute any alcohol or drug abuse patient.[facility] Reason for Visit * Reason Comments chart prep/review for OPD 11/04 Encounter Details Date Type Department Care Team (Late st Contact Info) Description 11/03/2021 Abstract Pulmonary Medicine [address] [address] Molly Radford, MATE SHIP.ADVERTISING SOLICITOR [address] [place], [place] [id number] chart prep/review for OPD 11/04 Social History Tobacco Use Types Packs/Day Years Used Date Smoking Tobacco: Never Assessed Area Deprivation Index Answer Date Chirag rded National Score (1-100), lower number is lower ri sk Not on file 03/18/2021 State Score (1-10), lower number is lower risk N ot on file 03/18/2021 Data from: https://www.neighborhoodatlas.medicine.[facility]/. Last address used for calculation Not [...] 05/10/2025 12:30 PM EDT Procedure Pulmonary Medicine [address] [place] [address] Chronic obstructive pulmonary disease, unspecified COPD type (HCC) [J44.9] 05/10/2025 1:00 PM EDT Office Visit Pulmonary Medicine [address] [place] [address] [place] [address] [place] [address] Chronic obstructive pulmonary disease, unspecified COPD type (HCC) [J44.9] documented as of this encounter Visit Diagnoses Not on filedocumented in this encounter Care Teams Heel Compressor Relationship Specialty Start Date End Date Janet Benavides MD [address] [place] [id number] PCP - General Family Medicine 03/12/20 Douglas Pacheco DO [address] [place] [address] Referring Pulmonary and Critical Care Medicine 03/12/20 documented as of this encounter
--- OUTSIDE RECORDS SUMMARY | 2025-04-30 07:49 | XMS_ITS | Encounter Summary ---
Author Organization [facility] Address [address] [place] [address] Care Team Providers Care Hostess Cashier Name Role Phone Janet Benavides MD Primary Care Provider [phone] Douglas Pacheco DO Unavailable [phone] Source Comments In the event this information is protected by the Federal Confidentiality of Alcohol and Drug AbusePatient Records regulations: The Federal rules restrict any use of the information to criminally investigate or prosecute any alcohol or drug abuse patient.[facility] Reason for Visit * Reason Comments Med Change Request Encounter Details Date Type Department Care Team (Late st Contact Info) Description 04/24/2025 Refill Pulmonary Medicine [address] [place] [address] [place] [address] [place] [address] Med Change Request Social History Tobacco Use Types Packs/Day Years Used Date Smoking Tobacco: Former Cigarettes Comments:Almost 80 pack year smoker Area Deprivation Index Answer Date Chirag rded National Score (1-100), lower number is lower ri sk 61 03/11/2025 State Score (1-10), lower number is lower risk 4 03/11/2025 Data from: https://www.neighborhoodatlas.medicine.[place].edu/. Last address used for calculation [address] 03/11/2025 Sex and Gender Information Value Date Recorded Sex Assigned at Not on file Legal Sex Male 8:40 AM EDT Gender Identity Male 03/17/2021 10:03 PM EDT Sexual Orientation Straight 03/17/2021 10 :03 PM EDT documented as of this encounter Miscellaneous Notes * Telephone Encounter - Desean Cole LPN - 04/25/2025 3:07 PM EDT Advised pt via Tujia message per Dr [place] directions * Addendum Note - Leslye Lester MD - 04/25/2025 1:56 PM EDTAddended by: LESLYE LESTER on: 04/25/2025 01:56 PM Modules accepted: Orders * Telephone Encounter - Leslye Lester MD - 04/25/2025 1:55 PM EDT I am sending higher dose Theophylline 300 mg twice a day for the patient based on the low lab valueof milo levels from 04/23 Please let him know Thanks Leslye Lester MD * Telephone Encounter - Desean Cole LPN - 04/24/2025 12:09 PM EDT TAMMIE 03/11/25 NOV 05/10/25 Requested Prescriptions Pending Prescriptions Disp Refills theophylline ER 200 mg 12 hr tablet [Pharmacy Med Name: THEOPHYLLINE ER 200 MG TABLET] 180 tablet 1 Sig: TAKE 1 TABLET BY MOUTH TWICE A DAY documented in this encounter Plan of Treatment Upcoming Encounters Date Type Department Care Team (Late st Contact Info) Description 05/10/2025 12:30 PM EDT Procedure Pulmonary Medicine [address] [place] [address] Chronic obstructive pulmonary disease, unspecified COPD type (HCC) [J44.9] 05/10/2025 1:00 PM EDT Office Visit Pulmonary Medicine [address] [place] [address] [place] [address] [place] [address] Chronic obstructive pulmonary disease, unspecified COPD type (HCC) [J44.9] documented as of this encounter Visit Diagnoses Not on filedocumented in this encounter Care Teams Hostess Cashier Relationship Specialty Start Date End Date Janet Benavides MD [address] [place] [address] PCP - General Family Medicine 03/12/20 Douglas Pacheco DO [address] [place] [address] Referring Pulmonary and Critical Care Medicine 03/12/20 documented as of this encounter
--- OUTSIDE RECORDS SUMMARY | 2025-04-30 07:49 | XMS_ITS | Encounter Summary ---
Author Organization [facility] Address [address] [place] [address] Care Team Providers Care Household Appliances Salesperson Name Role Phone Janet Benavides MD Primary Care Provider [phone] Douglas Pacheco DO Unavailable [phone] Source Comments In the event this information is protected by the Federal Confidentiality of Alcohol and Drug AbusePatient Records regulations: The Federal rules restrict any use of the information to criminally investigate or prosecute any alcohol or drug abuse patient.[facility] Reason for Visit * Reason Comments New Eval Chart Prep Encounter Details Date Type Department Care Team (Late st Contact Info) Description 03/18/2021 Abstract Pulmonary Medicine [address] [place] [address] Idalmis Bai RN New Eval Chart Prep Social History Tobacco Use Types Packs/Day Years Used Date Smoking Tobacco: Never Assessed Area Deprivation Index Answer Date Chirag rded National Score (1-100), lower number is lower ri sk Not on file 03/18/2021 State Score (1-10), lower number is lower risk N ot on file 03/18/2021 Data from: https://www.neighborhoodatlas.medicine.[facility].edu/. Last address used for calculation Not on [...] 05/10/2025 12:30 PM EDT Procedure Pulmonary Medicine [address] [place] [address] Chronic obstructive pulmonary disease, unspecified COPD type (HCC) [J44.9] 05/10/2025 1:00 PM EDT Office Visit Pulmonary Medicine [address] [place] [address] [place] [address] [place] [address] Chronic obstructive pulmonary disease, unspecified COPD type (HCC) [J44.9] documented as of this encounter Visit Diagnoses Not on filedocumented in this encounter Care Teams Household Appliances Salesperson Relationship Specialty Start Date End Date Janet Benavides MD [address] [place] [address] PCP - General Family Medicine 03/12/20 Douglas Pacheco DO [address] [place] [address] Referring Pulmonary and Critical Care Medicine 03/12/20 documented as of this encounter
--- OUTSIDE RECORDS SUMMARY | 2025-04-30 07:49 | XMS_ITS | Encounter Summary ---
Author Organization [facility] Address [address] [place] [address] Care Team Providers Care Leather Currier Name Role Phone Janet Benavides MD Primary Care Provider [phone] Douglas Pacheco DO Unavailable [phone] Source Comments In the event this information is protected by the Federal Confidentiality of Alcohol and Drug AbusePatient Records regulations: The Federal rules restrict any use of the information to criminally investigate or prosecute any alcohol or drug abuse patient.[facility] Encounter Details Date Type Department Care Team (Late st Contact Info) Description 11/04/2024 [place] [address] Provider, [facility] Medicare Coverage of Physical Exams Social History Tobacco Use Types Packs/Day Years Used Date Smoking Tobacco: Never Assessed Area Deprivation Index Answer Date Chirag rded National Score (1-100), lower number is lower ri sk Not on file 03/18/2021 State Score (1-10), lower number is lower risk N ot on file 03/18/2021 Data from: https://www.neighborhoodatlas.medicine.[facility].edu/. Last address used for calculation Not [...] 05/10/2025 12:30 PM EDT Procedure Pulmonary Medicine [address] [place] [address] Chronic obstructive pulmonary disease, unspecified COPD type (HCC) [J44.9] 05/10/2025 1:00 PM EDT Office Visit Pulmonary Medicine [address] [place] [address] [place] [address] [place] [address] Chronic obstructive pulmonary disease, unspecified COPD type (HCC) [J44.9] documented as of this encounter Visit Diagnoses Not on filedocumented in this encounter Care Teams Leather Currier Relationship Specialty Start Date End Date Janet Benavides MD [address] [place] [address] PCP - General Family Medicine 03/12/20 Douglas Pacheco DO [address] [place] [address] Referring Pulmonary and Critical Care Medicine 03/12/20 documented as of this encounter
--- OUTSIDE RECORDS SUMMARY | 2025-04-30 07:49 | XMS_ITS | Clinical Summary ---
Author Organization [facility] Address [address] [place] [address] Phone Care Team Providers Care Cheese Cook Name Role Phone Unavailable Primary Care Provider [...]
--- OUTSIDE RECORDS SUMMARY | 2025-04-30 07:49 | XMS_ITS | Encounter Summary ---
Author Organization [facility] Address [address] [place] [address] Care Team Providers Care House Parent Name Role Phone Janet Benavides MD Primary Care Provider [phone] Douglas Pacheco DO Unavailable Source Comments In the event this information is protected by the Federal Confidentiality of Alcohol and Drug AbusePatient Records regulations: The Federal rules restrict any use of the information to criminally investigate or prosecute any alcohol or drug abuse patient.[facility] Reason for Visit * Reason Comments Patient Update Blood test is pendin g milo levels Orders Encounter Details Date Type Department Care Team (Late st Contact Info) Description 04/21/2025 Telephone Pulmonary Medicine [address] [place], [place] [id number] [place] [address] [place], [place] [id number] Patient Update (Blood test is pending milo levels ); Orders Social History Tobacco Use Types Packs/Day Years Used Date Smoking Tobacco: Former Cigarettes Comments:Almost 80 pack year smoker Area Deprivation Index Answer Date Chirag rded National Score (1-100), lower number is lower ri sk 61 03/11/2025 State Score (1-10), lower number is lower risk 4 03/11/2025 Data from: https://www.neighborhoodatlas.[facility]/. Last address used for calculation [address] 03/11/2025 Sex and Gender Information Value Date Recorded Sex Assigned at Not on file Legal Sex Male 8:40 AM EDT Gender Identity Male 03/17/2021 10:03 PM EDT Sexual Orientation Straight 03/17/2021 10 :03 PM EDT documented as of this encounter Miscellaneous Notes * Telephone Encounter - Finn Mcneil LPN - 04/23/2025 9:21 AM EDT Called and LVM x1. Passed along Dr. Lester's message again. Instructed pt to call back with any questions. * Telephone Encounter - Finn Mcneil LPN - 04/22/2025 9:55 AM EDT Called and LVM x1, sent MCM x1 * Telephone Encounter - Leslye Lester MD - 04/21/2025 8:48 AM EDT I noted his theophylline levels aren't yet completed, he was advised to get this cone 2 weeks ago to ensure the milo levels are ok Please advise him to get this completed on Tuesday or latest by Tuesday Please note level to be done 6- 8 hours post dose WE CAN TITRATE UP NEEDED and guided by levels Thanks Leslye Lester MD Result Notes Component Ref Range & Units 3 wk ago 1 mo ago Theophylline 10.0 - 20.0 ug/mL 2.2 Low 30.0 High CM documented in this encounter Plan of Treatment Upcoming Encounters Date Type Department Care Team (Late st Contact Info) Description 05/10/2025 12:30 PM EDT Procedure Pulmonary Medicine [address] [place] [address] Chronic obstructive pulmonary disease, unspecified COPD type (HCC) [J44.9] 05/10/2025 1:00 PM EDT Office Visit Pulmonary Medicine [address] [place] [address] [place] [address] [place] [address] Chronic obstructive pulmonary disease, unspecified COPD type (HCC) [J44.9] documented as of this encounter Visit Diagnoses Not on filedocumented in this encounter Care Teams House Parent Relationship Specialty Start Date End Date Janet Benavides MD [address] [place] [address] PCP - General Family Medicine 03/12/20 Douglas Pacheco DO [address] [place] [address] Referring Pulmonary and Critical Care Medicine 03/12/20 documented as of this encounter
--- OUTSIDE RECORDS SUMMARY | 2025-04-30 07:49 | XMS_ITS | Encounter Summary ---
Author Organization [facility] Address [address] [place] [address] Care Team Providers Care Manager Regional Sales Name Role Phone Janet Benavides MD Primary Care Provider [phone] Douglas Pacheco DO Unavailable [phone] Source Comments In the event this information is protected by the Federal Confidentiality of Alcohol and Drug AbusePatient Records regulations: The Federal rules restrict any use of the information to criminally investigate or prosecute any alcohol or drug abuse patient.[facility] Encounter Details Date Type Department Care Team (Latest Contact Info) Description 04/23/2025 Travel Social History Tobacco Use Types Packs/Day Years Used Date Smoking Tobacco: Former Cigarettes Comments:Almost 80 pack year smoker Area Deprivation Index Answer Date Chirag rded National Score (1-100), lower number is lower ri sk 61 03/11/2025 State Score (1-10), lower number is lower risk 4 03/11/2025 Data from: https://www.neighborhoodatlas.medicine.[facility].edu/. Last address used for calculation [address] [facility] 03/11/2025 Sex and Gender Information Value Date Recorded Sex Assigned at Not on file Legal Sex Male 8:40 AM EDT Gender Identity Male 03/17/2021 10:03 PM EDT Sexual Orientation Straight 03/17/2021 10 :03 PM EDT documented as of this encounter Plan of Treatment Upcoming Encounters Date Type Department Care Team (Late st Contact Info) Description 05/10/2025 12:30 PM EDT Procedure Pulmonary Medicine [address] [place] [address] Chronic obstructive pulmonary disease, unspecified COPD type (HCC) [J44.9] 05/10/2025 1:00 PM EDT Office Visit Pulmonary Medicine [address] [place] [address] [place] [address] [place] [address] Chronic obstructive pulmonary disease, unspecified COPD type (HCC) [J44.9] documented as of this encounter Visit Diagnoses Not on filedocumented in this encounter Care Teams Manager Regional Sales Relationship Specialty Start Date End Date Janet Benavides MD [address] [place] [address] PCP - General Family Medicine 03/12/20 Douglas Pacheco DO [address] [place] [address] Referring Pulmonary and Critical Care Medicine 03/12/20 documented as of this encounter
--- OUTSIDE RECORDS SUMMARY | 2025-04-30 07:49 | XMS_ITS | Clinical Summary ---
Author Organization [facility] Address [address] [place] [address] Care Team Providers Care Desizing Pad Operator Name Role Phone Zayra Peterson AUDIT MANAGER-C Primary Care Provider [phone] Allergies Active Allergy Reactions Criticality Noted Date [...] Take 80 mg by mouth at bedtime. 5 Active predniSONE (Deltasone) 20 mg tablet Take 20 mg by mouth in the morning. Active Ozempic 0.25 mg or 0.5 mg (2 mg/3 mL) pen injector INJECT 0.5 MG SUBCUTANEOUSLY ONE TIME PER WEEK Active theophylline ER (Abundio-Dur) 450 mg 12 hr tablet Take 1 tablet by mouth Twice daily at 6am and 6pm. 5 Active venlafaxine (Effexor) 150 mg 24 hr tablet Take 150 mg by mouth with breakfast. Active Active Problems Problem Noted Date Diagnosed Date Centrilobular emphysema 01/24/2025 Acute exacerbation of chronic obstructive airway s disease 01/24/2025 Type 2 diabetes mellitus without complications 0 01/24/2025 Former tobacco use 01/24/2025 Generalized anxiety disorder 01/24/2025 History of COVID-19 01/24/2025 Leukocytosis 01/24/2025 correction (current) use of systemic steroids 04/2025 correction current use of inhaled steroid 025 correction current use of insulin 01/24/2025 Obesity 01/24/2025 Bipolar 1 disorder 03/25/2021 Depression 03/25/2021 GERD (gastroesophageal reflux disease) Obstructive sleep apnea syndrome 03/25/2021 [place]-4-mbmqdekhihy 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/2021 Chronic respiratory failure with hypoxia 021 Left ventricular systolic dysfunction 12/23/2020 Diabetes mellitus 02/14/2019 Essential hypertension 02/14/2019 Coronary atherosclerosis 01/17/2019 Chest pain 12/04/2018 Dyspnea 12/04/2018 Encounters Date Type Department Care Team Description 03/19/2025 Orders Only [place] [address] [place] [address] Provider, MD [place] 02/11/2025 Telephone [facility] [address] [place] [address] MadelynRacheal MA from Last 3 Months Family History Medical [...] 01/24/2025 2:17 PM EDT Plan of Treatment Health Maintenance Due Date Last Done Comments CT Colonography 1959 Colonoscopy 1959 Colorectal Cancer Screening 1959 Diabetes: Hemoglobin A1C 1959 FIT-DNA 1959 FIT 1959 FOBT 1959 Medicare Annual Wellness (AWV) 1959 Medicare Initial Physical (IPPE) 1959 Sigmoidoscopy 1959 Diabetes: Retinopathy Screening 11/04/1969 Depression Screening 1971 Diabetes: Urine Protein Screening 11/04/1978 Adult Tetanus 11/04/1981 Zoster Vaccines (1 of 2) 11/04/2009 Pneumococcal Vaccine: 50+ Years (2 of 2 - PPSV23, PCV20, or PCV21) 07/05/2018 05/10/2018 Fall Risk Screening 11/04/2024 COVID-19 Vaccine (1 - season) 2025 Influenza Vaccine (#1) 2025 , 04/30/2024, 05/16/2020, Additional history exists HIB Vaccines [...] on patient's age to complete this topic Procedures Procedure Name Priority Date/Time Associated Diagnosis Comments COMPLETE TRANSTHORACIC ECHO (TTE) W/WO IMAGING AGENT, STRAIN, 3D, BUBBLE STUDY Routine 03/19/2025 8:20 AM EDT CARDIAC EVENT MONITOR Routine 02/23/2025 5:02 PM EDT from Last 3 Months Results * Complete Echo (TTE) w/wo Imaging Agent, Strain, 3D, Bubble Study (03/19/2025 8:20 AM EDT) Anatomical Region Laterality Modality Ultrasound Historical Provider CV ECHO PROCEDURES Final Result * Cardiac event monitor (02/23/2025 5:02 PM EDT) Anatomical Region Laterality Modality Other Historical Provider [facility] CARDIAC SERVICES REJI MULLER Final Result from Last 3 Months Insurance [employer] MED[employer] Care Teams Desizing Pad Operator Relationship Specialty Start Date End Date Zayra Peterson FNP-C [address] [place] [address] PCP - General Nurse Practitioner 01/24/25
--- OUTSIDE RECORDS SUMMARY | 2025-04-30 07:50 | XMS_ITS | CCD ---
Author Organization [facility] CliniSymo Care Team Providers Care French Edge Operator Name Role Phone ELTAHAWY, EHAB A Admitting Unavailable ELTAHAWY, EHAB A Attending Unavailable BRYON COWART Referring Unavailable ELTAHAWY, EHAB Marek Primary Care Unavailable Bryon Cowart MD Primary Care Provider [phone] Sam DOVanda P Unavailable [phone] Bryon Cowart Unavailable SAMSA ., VANDA [...] Unavailable SOLO, JEAN H Admitting Unavailable CUCO ., JOSE ESPINO Consulting Unavaildemetria e SOFYA, DR BRYON Richey Primary Care Unavailable DAVID GIBBS Consulting Unavailable Rubén Pina Unavailable Bryon Cowart MD Primary Care Provider [phone] Vanda Gonzalez DO Unavailable SARAH TRIVEDI Primary Care Physician Richardson GOSS, Pranay Mclaughlin Emergency [facility] Provider Clifton Calderon MD Admit Provider Clifton Calderon MD Attending Provider Eden Greenwood MD Attending Provider [phone] NGOZI TRIVEDI A Attending Unavailabl e SHIKHA, NGOZI SARAH A Attending Unavailabl e SHIKHA, NGOZI SARAH A Attending Unavailabl e SHIKHA, CINETECHNICIAN SARAH A Attending Unavailabl e SHIKHA, NGOZI SARAH A Attending Unavailabl e SHIKHA, CINETECHNICIAN SARAH A Attending Unavailabl e SHIKHA, CINETECHNICIAN SARAH A Attending Unavailabl e SHIKHA, CINETECHNICIAN SARAH A Attending Unavailabl e SHIKHA, CINETECHNICIAN SARAH A Attending Unavailabl e SHIKHA, CINETECHNICIAN SARAH A Attending Unavailabl e SHIKHA, CINETECHNICIAN SARAH A Attending Unavailabl e SHIKHA, CINETECHNICIAN SARAH A Admitting Unavailabl e SHIKHA, CINETECHNICIAN SARAH A Attending Unavailabl e SHIKHA, CINETECHNICIAN SARAH A Admitting Unavailabl e SHIKHA, CINETECHNICIAN SARAH A Admitting UnavailBryon Henry MD Primary Care Provider [phone] VINAY, LESLYE Referring Unavailable COWART, BRYON E Primary Care Unavailable SHIKHA, SARAH A Primary Care Physician SHIKHA, SARAH A Attending Unavailable PHI, Joo R Attending Unavailable YIP, Joo R Attending Unavailable YIP, Joo R Attending Unavailable SHIKHA, SARAH A Referring Unavailable SHIKHA, SARAH A Admitting Unavailable SHIKHA, SARAH A Attending Unavailable SHIKHA, SARAH A Attending Unavailable YIP, Joo R Attending Unavailable YIP, Joo R Attending Unavailable YIP, Joo R Admitting Unavailable CALLI DEVLIN Attending Unavailable Shikha BARREL PLANER-BC, Sarah A Primary Care Provider Vinay GOSS, Leslye Attending Provider Phi GOSS, Joo Attending Provider [phone] Chris ROSARIO, Abel Can Emergency Provider Marquis GOSS, Serene Admit Provider Marquis GOSS, Serene Attending Provider [phone] VINAY, LESLYE Attending Unavailable COWART, BRYON E Primary Care Unavailable COWART, BRYON E Primary Care Unavailable VINAY, LESLYE Referring Unavailable COWART, BRYON E Primary Care Unavailable VINAY, LESLYE Referring Unavailable COWART, BRYON E Primary Care Unavailable COWART, BRYON E Primary Care Unavailable VINAY, LESLYE Referring Unavailable COWART, BRYON E Primary Care Unavailable PHI, Joo R Attending Unavailable SHIKHA, SARAH A Admitting Unavailable YIP, Joo R Attending Unavailable SHIKHA, SARAH A Attending Unavailable Flora Nuñez Attending Unavailable Phi Joo Admitting Unavailable Joo Yip Attending Unavailable Shikha, Sarah A Primary Care Unavailable Marquis Firnatasha Admitting Unavailable Gael Marrero Attending Unavailable Shikha, Sarah A Primary Care Unavailable Clifton Calderon Admitting Unavailable Eden Greenwood Attending Unavailable Shikha, Sarah A Primary Care Unavailable Allergies Allergy Classification Reported Allergen(s) Allergy Type Date of Onset Reaction(s) Facility (20 sources) metFORMIN; Translations: [metformin] Drug Allergy 1 Intolerance, Diarrhea (finding) [facility] (4 sources) metFORMIN Drug Allergy Diarrhea Friday Other (1 source) metFORMIN Drug Allergy 2 [facility] Rep[facility] (1 source) metFORMIN Drug Allergy 5 [facility] Repository Medications Current Medications Medication Drug Class(es) Dates Sig (Normalized) Sig (Original) 0.25 MG, 0.5 MG Dose 3 ML semaglutide 0.68 MG/ML Pen Injector [Ozempic] (15 sources) Start: 02-01-2025 inject 0.5 mg by subcutaneous injection every week Start: 2024 inject 0.5 mg by sub cutaneous injection every week Start: 09-11-2024 inject 0.5 [...] 0.5mg Subcutaneous weekly for 30 days Active albuterol 0.83 mg/ml inhalation solution (20 sources) [...] INHALATION Twice daily October 04, 2024 12:00am Complies with drug therapy Start: 09-14-2023 End: 10-04-2024 take 2.5 mg [...] IV every week October 04, 2024 12:00am Complies with drug therapy Start: 09-14-2023 End: 10-04-2024 Alpha-1 Proteinase Inhib.(Hu m) 1,000 mg recon soln Discontinued MG IV As Directed September 14, 2023 1:00am October 04, 2024 1:38am Prolastin-C 1000 MG as directed Intravenous Active sfwod-1-mniblpwnww inhibitor (Human) 1,000 mg in water for injection (17 sources) Start: 03-25-2021 inject 1000 mg intravenously every week schlo-8-hudgbqpqjo inhibitor (Human) 1,000 mg in water for injection Inject 1,000 mg intravenously one time a week. 03/25/2021 Active Start: 03-25-2021 inject 1000 mg intra venously every week chvmr-3-mybnfevpbb inhibitor (Human) 1,000 mg in water for injection Inject 1,000 mg intravenously one time a week. 0 03/25/2021 Active Comment on above: Inject 1,000 mg intr avenously one time a week. ARIPiprazole 10 mg oral tablet (20 sources) Atypical Antipsychotic Start: 10-20-19 take 1 tablet by mouth once daily aripiprazole 10 mg Tab 10 mg = 1 tab(s), Oral, Daily, # 90 tab(s), Refills(s) 1, Pharmacy: [facility]/pharmacy #[id number], 177, cm, 10/25/24 14:03:00 EDT, Height/Length Dosing, 109.4, kg, 10/25/24 14:03:00 EDT, Weight Dosing Start Date: 11/05/24 Status: Ordered Quantity: 90.0 Unit: tab(s) Repeat number: 2 Start: 11-14-2023 take 1 tablet by beverly th once daily Aripiprazole 10 mg tablet Active 0 .ROUTE .COMPLEX November 14, 2023 2:14pm TAKE 1 TABLET BY MOUTH EVERY DAY Complies with drug therapy Start: 02-27-2021 End: 11-14-2023 take 1 tablet by mouth once daily Aripiprazole 10 mg tablet Discontinued 10 MG PO Daily September 14, 2023 1:00am November 14, 2023 2:14pm Comment on above: Take 10 mg by mouth once daily. aspirin 81 mg delayed release oral tablet (20 sources) Platelet Aggregation Inhibitor, Nonsteroidal Anti-inflammatory Drug Start: 1 End: 5 take 1 tablet by mouth once daily aspirin 81 mg Oral EC Tab 81 mg = 1 tab(s), Oral, Daily, Refills(s) 0 Start Date: 12/28/23 Status: Ordered Repeat number: 1 Comment on above: Take 81 mg by mouth once daily. cetirizine hydrochloride 10 mg oral tablet (2 sources) Histamine-1 Receptor Antagonist Start: 4 cetirizine 10 mg Tab 10 mg = [...] directed Cpap (Continuous Positive Airway Pressure) unit (4 sources) Start: Cpap (Continuous Positive Airway Pressure) unit Active 0 .Route September 14, 2023 1:00am Connect to 2L O2 during use. Start: 09-14-2023 Cpap (Continuo us Positive Airway Pressure) unit Active 0 .Route September 14, 2023 1:00am As directed CPAP Machine (20 sources) CPAP Machine As Directed Active cyclobenzaprine hydrochloride 5 mg oral tablet (20 sources) Muscle Relaxant Start: 09-14-19 End: 04-15-20 take 1 tablet by mouth twice daily [...] as needed Orally Once a day Active doxycycline hyclate 100 mg oral capsule (1 source) Tetracycline-class Drug Start: 11-28-2024 End: 12-19-2024 take 1 capsule by mouth twice daily doxycycline hyclate 100 mg Cap 100 mg = 1 cap(s), Oral, BID, X 21 day(s), # 42 cap(s), Refills(s) 0, Pharmacy: [facility]/pharmacy #[id number], 177, cm, 10/25/24 14:03:00 EDT, Height/Length Dosing, 109.4, kg, 10/25/24 14:03:00 EDT, Weight Dosing Start Date: 11/28/24 Stop Date: 12/19/24 Status: Ordered Quantity: 42.0 Unit: cap(s) Repeat number: 1 empagliflozin 25 mg oral tablet (20 sources) Sodium-Glucose Cotransporter 2 Inhibitor Start: 10-25-2024 take 1 tablet by mouth once daily in the morning Empagliflozin (Jardiance) 25 mg tablet Active 25 MG PO Every morning April 15, 2025 12:00am Complies with drug therapy Start: 10-25-2023 End: 10-04-2024 take 1 tablet by mouth once daily Empagliflozin (Jardiance) 25 mg tablet Discontinued 0 .ROUTE .COMPLEX 30 October 25, 2023 2:51pm October 04, 2024 1:40am TAKE 1 TABLET BY MOUTH EVERY DAY Start: 09-14-2023 End: 10-25-2023 take 1 tablet by mouth once daily Empagliflozin 25 mg tablet Discontinued 25 MG PO Daily September 14, 2023 1:00am October 25, 2023 2:52pm take 1 tablet by beverly once daily Jardiance 25 mg TAKE 1 TABLET BY MOUTH DAILY for 30 Active Wopnhxignei-Mjbnaxehk-Lrlmpd er (20 sources) Anticholinergic, Corticosteroid, beta2-Adrenergic Agonist Start: 10-04-2024 Vhlukxatyxi-Ukztvnpza-Ryuwei er (Trelegy Ellipta) 100-62.5-25 mcg blister with device Active 1 INH INHALATION Every morning October 04, 2024 12:00am Complies with drug therapy Start: 10-04-2024 Start: 10-04-2024 Fluticasone-Um eclidin-Vilanter (Trelegy Ellipta) 100-62.5-25 mcg blister with device Active 1 INH INHALATION Daily at 0630 October 04, 2024 12:00am Start: 02-17-2021 take 1 puff(s) by mo [facility] once daily TRELEGY ELLIPTA 100-62.5-25 mcg INHALE 1 PUFF BY MOUTH DAILY 02/17/2021 Active Comment on above: INHALE 1 PUFF BY BEVERLY TH DAILY FREESTYLE MARTIN 2 SENSOR kit (17 sources) Start: 02-17-2021 FREESTYLE MARTIN 2 SENSOR kit as directed. 02/17/2021 Active Start: 02-17-2021 FREESTYLE LIBR E 2 SENSOR kit as directed. 0 02/17/2021 Active Comment on above: as directed. furosemide 40 mg oral tablet (9 sources) Loop Diuretic Start: 12-28-2023 End: 04-15-2025 take 1 tablet by mouth once daily furosemide 40 mg Tab 40 mg = 1 tab(s), Oral, Daily, Refills(s) 0 Start Date: 12/28/23 Status: Ordered Repeat number: 1 glipiZIDE 10 mg oral tablet (20 sources) Sulfonylurea Start: 10-25-2024 take 1 tablet by mouth twice daily Glipizide 10 mg tablet Active 10 MG PO Twice daily April 15, 2025 12:00am TAKE 1 TABLET BY MOUTH TWICE A DAY Complies with drug therapy Start: 09-19-2023 End: 04-15-2025 take 1 tablet by mouth twice daily Glipizide 10 mg tablet Discontinued 0 .ROUTE .COMPLEX 180 September 19, 2023 1:16pm April 15, 2025 7:12pm TAKE 1 TABLET BY MOUTH TWICE A DAY Start: 02-07-2021 End: 09-19-2023 take 1 tablet by mouth twice daily Glipizide 10 mg tablet Discontinued 10 MG PO Twice daily September 14, 2023 1:00am September 19, 2023 1:16pm Comment on above: Take 10 mg by mouth twice daily. 12 hr guaiFENesin 600 mg extended release oral tablet (20 sources) Start: 09-14-2023 take 1 tablet by mouth every twelve hours, then take 1 tablet by mouth every twelve hours Guaifenesin (Mucinex) 600 mg tablet extended release 12hr Active 600 MG PO Every 12 hours September 14, 2023 1:00am Complies with drug therapy Start: 03-25-2021 take 2 tablets by mo [facility] twice daily guaiFENesin (MUCINEX) 600 mg 12 hr tablet Take 2 tablets by mouth twice daily. 03/25/2021 Active take 1 tablet by [facility] every twelve hours Mucinex 600 MG 1 tablet as needed Orally every 12 hrs Active Comment on above: Take 2 tablets by mo [facility] twice daily. Handicap placards as directed (20 sources) Handicap placard s as directed as directed as directed as directed Active hydrOXYzine hydrochloride 25 mg oral tablet (7 sources) Antihistamine Start: 04-15-20 take 1 tablet by mouth four times daily as needed Hydroxyzine Hcl 25 mg tablet Active 25 MG PO Four times daily as needed for itching April 15, 2025 12:00am Complies with drug therapy Start: 02-19-2025 take 1 tablet by beverly four times daily as needed hydrOXYzine hydrochloride 25 mg Tab 25 mg = 1 tab(s), Oral, QID, PRN for itching, # 40 tab(s), Refills(s) 0, [id number] 177, cm, 02/19/25 15:09:00 EDT, Height/Length Dosing, 109.7, kg, 02/19/25 15:09:00 EDT, Weight Dosing Start Date: 02/19/25 Status: Ordered Quantity: 40.0 Unit: tab(s) Repeat number: 1 Indications: Chronic rhinitis; Start: 10-08-2024 take 1 tablet by beverly three times daily as needed for anxiety hydrOXYzine hydrochloride 50 mg oral tablet See Instructions, TAKE 1 TABLET BY MOUTH THREE TIMES A DAY NEEDED FOR ANXIETY, # 270 tab(s), Refills(s) 0, Pharmacy: [id number], 177, cm, 06/04/24 15:02:00 EST, Height/Length Dosing, 108, kg, 06/04/24 15:02:00 EST, Weight Dosing Start Date: 10/08/24 Status: Ordered Quantity: 270.0 Unit: tab(s) Repeat number: 1 Start: 01-24-2024 take 1 tablet by [facility] three times daily as needed for anxiety hydrOXYzine hydrochloride 25 mg Tab 25 mg = 1 tab(s), Oral, TID, PRN for anxiety, # 90 tab(s), Refills(s) 2, [id number] 177, cm, 01/24/24 10:21:00 EDT, Height/Length Dosing, 115.7, kg, 12/28/23 13:07:00 EDT, Weight Dosing Start Date: 01/24/24 Status: Ordered ipratropium bromide 0.021 mg/actuat metered dose nasal spray (12 sources) Anticholinergic Start: 04-15-2025 Ipratropium Br omide 21 mcg (0.03 %) spray,non-aerosol Active 2 SPRAY INTRANASAL Twice daily as needed for nasal congestion April 15, 2025 12:00am Complies with drug therapy Start: 03-20-2025 ipratropium [place]sey 0.03% [place] Refill(s) 0 Start Date: 03/20/25 Status: Ordered Repeat number: 1 Start: 03-11-2025 Ipratropium Br omide (ATROVENT) 21 mcg (0.03 %) nasal spray Use 2 sprays in the nose every 12 hours. 30 mL 2 03/11/2025 Active lisinopril 5 mg oral tablet (20 [...] 25 mg tablet extended release 24 hr Active 25 MG PO Daily October 04, 2024 12:00am Complies with drug therapy Start: 10-25-2023 End: 10-04-2024 take 1 tablet [...] 14, 2023 1:00am October 25, 2023 2:52pm Comment on above: Take 25 mg by mouth once daily. Mucinex DM 30 mg-600 mg Tab-ER (5 sources) Start: 12-28-2023 take 1 tablet by [...] chest congestion Start Date: 12/28/23 Status: Ordered nystatin 100 unt/mg topical powder (3 sources) Polyene Antifungal Start: 04-15-2025 Nystatin (K layesta) 100,000 unit/gram powder Active 1 APPLIC TOPICAL Daily as needed for rash April 15, 2025 12:00am Complies with drug therapy Start: 02-19-2025 nystatin Top 1 00,000 units/g Pwdr 1 scarlett, Topical, TID, 15 gram, Refill(s) 0, [facility]/pharm[facility] #[id number], 177, cm, 02/19/25 15:09:00 EDT, Height/Length Dosing, 109.7, kg, 02/19/25 15:09:00 EDT, Weight Dosing Start Date: 02/19/25 Status: Ordered Quantity: 15.0 Unit: g Repeat number: 1 Indications: Candidiasis of skin and nail; Risingsun 3 1000 MG (20 sources) take 1 capsule by mouth once daily Risingsun 3 1000 MG 1 capsule Orally Once a day Active Risingsun-3 Fatty Acids (1 source) Start: 09-14-2023 take 1000 mg by mouth once daily Risingsun-3 Fatty Acids Active 1000 MG PO Daily September 14, 2023 1:00am omeprazole 20 mg delayed release oral capsule (20 sources) Proton Pump Inhibitor Start: 01-30-2025 take 1 capsule by mouth once daily omeprazole 20 mg Cap-DR See Instructions, TAKE 1 CAPSULE BY MOUTH EVERY DAY, # 90 cap(s), Refills(s) 0, Pharmacy: [id number], 177, cm, 10/25/24 14:03:00 EDT, Height/Length Dosing, 109.4, kg, 10/25/24 14:03:00 EDT, Weight Dosing Start Date: 01/30/25 Status: Ordered Quantity: 90.0 Unit: cap(s) Repeat number: 1 Start: 10-17-2023 End: 11-14-2023 take 1 capsule by mouth once daily in the morning Omeprazole 20 mg capsule,delayed release(DR/EC) Active 0 .ROUTE .COMPLEX November 14, 2023 2:14pm TAKE 1 CAPSULE BY MOUTH EVERY DAY IN THE MORNING Complies with drug therapy Start: 02-24-2021 End: 10-17-2023 take 1 capsule by mouth once daily Omeprazole 20 mg capsule,delayed release(DR/EC) Discontinued 20 MG PO Daily September 14, 2023 1:00am October 17, 2023 12:35pm Comment on above: Take 20 mg by mouth once daily. Oxygen (1 source) Start: 09-14-2023 Oxygen Active 0 .Route September 14, 2023 1:00am As directed Oxygen 2 liters (20 sources) Oxygen 2 liters continuous Active Oxygen unit (4 sources) Start: 09-14-2023 Oxygen unit Active 0 .Route September 14, 2023 1:00am 3L O2 N/C AATs Start: 09-14-2023 Oxygen unit Ac tive 0 .Route September 14, 2023 1:00am As [...] BEDTIME, # 90 tab(s), Refills(s) 1, Pharmacy: [facility]/pharm[facility] #[id number], 177, cm, 02/19/25 15:09:00 EDT, Height/Length Dosing, 109.7, kg, 02/19/25 15:09:00 EDT, Weight Dosing Start Date: 02/19/25 Status: Ordered Quantity: 90.0 Unit: tab(s) Repeat number: 2 Start: 10-23-2024 take 1 tablet by beverly th once daily at bedtime pravastatin 80 mg Tab See Instructions, TAKE 1 TABLET BY MOUTH EVERYDAY AT BEDTIME, # 30 tab(s), Refills(s) 0, Pharmacy: [facility]/pharmacy #[id number], 177, cm, 06/04/24 15:02:00 EST, Height/Length Dosing, 108, kg, 06/04/24 15:02:00 EST, Weight Dosing Start Date: 10/23/24 Status: Ordered Quantity: 30.0 Unit: tab(s) Repeat number: 1 Start: 10-04-2024 Pravastatin 80 mg tablet Active 40 MG PO Every morning October 04, 2024 12:00am Complies with drug therapy Start: 01-24-2024 take 1 tablet by beverly th once daily at bedtime pravastatin 80 mg Tab 80 mg = 1 tab(s), Oral, Once a day (at bedtime), # 90 tab(s), Refills(s) 1, Pharmacy: [facility]/pharmacy #[id number], 177, cm, 01/24/24 11:56:00 EDT, Height/Length [...] daily Active predniSONE 20 mg oral tablet (20 sources) Start: 10-06-19 take 2 tablets by mouth once daily, then take 1 tablet by mouth once daily Prednisone 20 mg tablet Active 20 MG PO Daily October 05, 2024 12:16pm take 40 mg for three days then resume 20 mg days after that Complies with drug therapy Start: 10-04-2024 take 2 tablets by mo [...] tablet by beverly th once daily. Prolastin-C (5 sources) Start: 12-28-2023 Prolastin-C Se e Instructions, [...] on above: INJECT 0.5MG SUBCUTANEOUSLY WEEKLY Semaglutide (11 sources) Start: 04-15-2025 inject 0.5 mg by subcutaneous injection every week Semaglutide (Ozempic) 0.25 mg or 0.5 mg (2 mg/3 mL) pen injector Active 0.5 MG SUBCUT every week April 15, 2025 12:00am INJECT 0.5 MG SUBCUTANEOUSLY ONCE A WEEK (Next dose due 04/16/25) Complies with drug therapy Start: 10-25-2023 End: 04-15-2025 inject 0.5 mg by subcutaneous injection every week Semaglutide (Ozempic) 0.25 mg or 0.5 mg (2 mg/3 mL) pen injector Discontinued 0 .ROUTE .COMPLEX October 25, 2023 2:51pm April 15, 2025 7:26pm INJECT 0.5 MG SUBCUTANEOUSLY ONCE A WEEK Start: 10-25-2023 inject 0.5 mg by sub cutaneous injection every week Start: 10-25-2023 inject 0.5 mg by sub cutaneous injection every week Semaglutide (Ozempic) 0.25 mg [...] NACL 0.9% 25 mL FLUSH (I RB [id number]) Inject 10 mL intravenously. 0 02/13/2021 05/15/2022 Active Comment on above: Inject 10 mL intrave nously. theophylline 200 mg extended release oral tablet (20 sources) Methylxanthine Start: 04-15-20 take 1 tablet by mouth twice daily Theophylline 200 mg tablet extended release 12 hr Active 200 MG PO Twice daily April 15, 2025 12:00am Complies with drug therapy Start: 07-16-2024 take 1 tablet by beverly th every twelve hours theophylline 450 mg ER Tab See Instructions, TAKE 1 TABLET BY MOUTH EVERY 12 HOURS, # 180 tab(s), Refills(s) 0, Pharmacy: [id number], 177, cm, 06/04/24 15:02:00 EST, Height/Length Dosing, 108, kg, 06/04/24 15:02:00 EST, Weight Dosing Start Date: 07/16/24 Status: Ordered Quantity: 180.0 Unit: tab(s) Repeat number: 1 Start: 01-24-2024 take 1 tablet by beverly th every twelve hours theophylline 450 mg ER Tab 450 mg = 1 tab(s), Oral, q12hr, # 180 tab(s), Refills(s) 0, Pharmacy: [facility] #[id number], 177, cm, 01/24/24 10:21:00 EDT, Height/Length Dosing, 115.7, kg, 12/28/23 13:07:00 EDT, Weight Dosing Start Date: 01/24/24 Status: Ordered Start: 09-14-2023 End: 04-15-2025 Theophylline 400 mg tablet e xtended release 24 hr Discontinued 450 MG PO Twice daily September 14, 2023 1:00am April 15, 2025 7:11pm Start: 09-14-2023 take 400 mg by mouth once daily Theophylline Active 400 MG PO Daily September 14, 2023 1:00am Start: 12-25-2020 End: 03-24-2025 take 1 tablet by mouth twice daily, then take 1 tablet by mouth every twenty-four hours theophylline ER (UNIPHYL) 400 mg 24 hr tablet Take 400 mg by mouth twice daily. 12/25/2020 03/24/2025 Discontinued (Other) take 1 tablet by beverly th every twenty-four hours Theophylline ER 400 MG 1 tablet Orally Once a day Active Comment on above: Take 400 mg by mouth twice daily. Trelegy Ellipta 100 mcg-62.5 mcg-25 mcg inhalation powder (5 sources) Start: 12-28-2023 take 1 puff(s) by [...] Status: Ordered valACYclovir 1000 mg oral tablet (17 sources) Herpesvirus Nucleoside Analog DNA Polymerase Inhibitor, [...] sources) Serotonin and Norepinephrine Reuptake Inhibitor Start: 01-30-2025 take 1 capsule by mouth twice daily Venlafaxine 150 mg capsule,extended release 24hr Active 150 MG PO Twice daily April 15, 2025 12:00am Complies with drug therapy Start: 2024 take 1 capsule by mo ut twice daily venlafaxine 150 mg Cap-ER See Instructions, TAKE 1 CAPSULE BY MOUTH TWICE A DAY, # 180 cap(s), Refills(s) 0, Pharmacy: [id number], 177, cm, 10/25/24 14:03:00 EDT, Height/Length Dosing, 109.4, kg, 10/25/24 14:03:00 EDT, Weight Dosing Start Date: 11/05/24 Status: Ordered Quantity: 180.0 Unit: cap(s) Repeat number: 1 Start: 09-14-2023 End: 10-04-2024 take 1 capsule by mouth twice daily at mealtime Venlafaxine (Effexor Xr) 150 mg capsule,extended release 24hr Discontinued 150 MG PO Twice daily with meals September 14, 2023 1:00am October 04, 2024 1:49am Start: 03-03-2021 [facility] VENLAFAXINE ER 150 MG TABLET,EXTENDED RELEASE 24 HR Take 150 mg by mouth twice daily. 03/03/2021 Active take 1 capsule by mo [facility] every twelve hours Effexor XR 150 MG 1 capsule with food Orally bid for 90 days Active take 1 capsule by mo ut every twenty-four hours Effexor XR 150 MG 1 capsule with food Orally Once a day for 30 days Active take 1 capsule by mo [facility] every twelve hours Effexor XR 75 MG 1 capsule with food Orally Twice a day for 30 days Active Comment on above: Take 150 mg by mouth twice daily. Completed/Discontinued Medications Medication Drug Class(es) Dates Sig (Normalized) Sig (Original) acetaminophen 325 mg / HYDROcodone bitartrate 5 mg oral tablet (20 sources) Opioid Agonist Start: 09-06-2023 End: 10-04-2024 take 1 tablet by mouth every six hours as needed for pain Hydrocodone-Acetami nophen 5-325 mg tablet Discontinued 1 TAB PO [...] for 30 days Jul, Active Start: 03-02-2021 End: 04-15-2025 take 1 tablet by mouth four times daily Hydrocodone-Acetaminophen 5-325 mg table t Discontinued 1 TAB PO Four times daily October 04, 2024 12:00am April 15, 2025 7:18pm Comment on above: TAKE 1 TABLET BY BEVERLY TH FOUR TIMES A DAY NEEDED ALPRAZolam 0.5 mg oral tablet (20 sources) Benzodiazepine Start: 09-14-19 End: 10-05-19 take 1 tablet by mouth twice daily [...] 12 hrs for 10 day(s) Sep, Not-Taking azithromycin 250 mg oral tablet (3 sources) Macrolide Antimicrobial Start: 10-05-2024 End: 04-15-2025 take 1 tablet by mouth once daily Azithromycin 250 mg tablet Discontinued 250 MG PO Daily 2 October 05, 2024 12:00am April 15, 2025 7:17pm start 10/06/24 Breo Ellipta 100-25 MCG/INH (12 sources) Start: 01-14-2014 take 1 puff(s) by inhalation once daily Breo Ellipta 100-25 MCG/INH 1 puff Inhalation Once a day for 30 day(s) Dec, Not-Taking cephalexin 500 mg oral capsule (3 sources) Cephalosporin Antibacterial Start: 10-05-2024 End: 04-15-2025 take 1 capsule by mouth twice daily Cephalexin 500 mg capsule Discontinued 500 MG PO Twice daily 10 October 05, 2024 12:00am April 15, 2025 7:17pm 24 hr dilTIAZem hydrochloride 240 mg extended release oral capsule (20 sources) Calcium Channel Shivam Start: 03-25-2021 End: 04-15-2025 take 1 capsule by mouth once daily Diltiazem Hcl 240 mg capsule,extended release 24hr Discontinued 240 MG PO Daily September 14, 2023 1:00am April 15, 2025 7:17pm Comment on above: Take 1 capsule by mo uth once daily. Glucose (4 sources) Start: 10-25-2024 Glucose Kit Glucose Kit, See Instructions, 1 EA, 0, Glucose meter. Include autolet, matching test strips, lancets, & alcohol wipes, #100 or as allowed by insurance; DX: E11.9, [id number], Supply, 177, cm, 10/25/24 14:03:00 EDT, Height/Length Dosing, 109.4, kg, 10/25/24 14:03:00 EDT, Weight Dosing Start Date: 10/25/24 Status: Ordered Quantity: 1.0 Unit: EA Repeat number: 1 Indications: Type 2 diabetes mellitus with unspecified complications; Start: 10-25-2024 Glucose Kit Gl ucose Kit, See Instructions, 1 EA, 0, Glucose meter. Include autolet, matching test strips, lancets, & alcohol wipes, #100 or as allowed by insurance; DX: E11.9, [facility]/pharmacy #[id number], Supply, 177, cm, 10/25/24 14:03:00 EDT, [...] Once a day for 30 day(s) Not-Taking Ipratropium-Albuterol 18-103 mcg/actuation aerosol (4 sources) Start: 2024 End: 2024 take 1 spray(s) by inhalation four times daily Ipratropium-Albuterol 18-103 mcg/actuation aerosol Discontinued 1 SPRAY INHALATION Four times daily October 04, 2024 12:00am April 15, 2025 7:18pm Start: 10-04-2024 take 1 spray(s) by i nhalation four times daily Start: 10-04-2024 take 1 spray(s) by i nhalation four times daily Ipratropium-Albuterol 18-103 mcg/actuation aerosol Active 1 SPRAY INHALATION Four times daily October 04, 2024 12:00am mupirocin 0.02 mg/mg topical ointment (5 sources) RNA Synthetase Inhibitor Antibacterial Start: 09-15-2023 End: 10-04-2024 Mupirocin 2 % ointment Discontinued 1 APPLIC TOPICAL Twice daily September 15, 2023 1:00am October 04, 2024 1:48am Risingsun-3 Fatty Acids 1,000 mg capsule (4 sources) Start: 09-14-2023 End: 10-04-2024 take 1 capsule by mouth once daily Risingsun-3 Fatty Acids 1,000 mg capsule Discontinued 1000 [...] for greater specification. Disorders of lipid metabolism (5 sources) Pure hypercholesterolemia, unspecified; Translations: [Hyperlipidemia] Onset: 10-05-2022 01-25-2024 Chronic Comment on above: Noted in 01/24/2024 of dinora note, added per ouptatient CDI policy E Codes: Adverse effects of medical drugs (2 sources) Theophylline adverse reaction; Translations: [Adverse effect of antiasthmatics, initial encounter] Onset: 03-26-2025 03-24-2025 Episodic Esophageal disorders (20 sources) Gastroesophageal reflux disease; Translations: [Gastro-esophageal reflux disease without esophagitis] Onset: 03-25-2021 03-25-2021 Chronic Essential hypertension (20 sources) Essential hypertension; Translations: [Essential (primary) hypertension] Onset: 02-14-2019 03-25-2021 Chronic Hyperplasia of prostate (6 sources) Benign prostatic hypertrophy with outflow obstruction; Translations: [Benign prostatic hyperplasia with lower urinary tract symptoms] Onset: 11-28-2024 Chronic Inflammatory conditions of male genital organs (5 sources) Chronic prostatitis; Translations: [Chronic prostatitis] Onset: 11-28-2024 Chronic Mood disorders (20 sources) Depressive disorder; Translations: [Depression] Onset: 03-25-2021 03-25-2021 Chronic Other aftercare (1 source) Other group home (current) drug therapy; Translations: [OTH PRISON CURRENT DRUG THERAPY] Onset: 10-05-2022 Episodic Other aftercare (1 source) retirement (current) use of aspirin; Translations: [PRISON CURRENT USE OF ASPIRIN] Onset: 10-05-2022 Episodic Other aftercare (1 source) retirement (current) use of oral hypoglycemic drugs; Translations: [LEGAL BILLER USE ORAL HYPOGLYCEMIC DX] Onset: 08-19-2022 Episodic Other aftercare (4 sources) Encounter for therapeutic drug level monitoring; Translations: [ENC THERAPEUTC DRUG LEVL MONITORING] Onset: 08-10-2022 Episodic Other aftercare (2 sources) retirement (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; Translations: [retirement (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] Onset: 01-24-2025 Episodic Other lower respiratory disease (4 sources) Shortness of breath; Translations: [SHORTNESS OF BREATH] Onset: 09-01-2022 Episodic Other lower respiratory disease (4 sources) Hypoxemia; Translations: [HYPOXEMIA] Onset: 08-17-2022 Episodic Other non-traumatic joint disorders (4 sources) Pain in left knee; Translations: [Chronic pain of left knee] 11-14-2023 Episodic Other nutritional; endocrine; and metabolic disorders (20 sources) Rtzfr-6-urlvfouszuh deficiency; Translations: [Ujtii-5-lfvodrtyhkf deficiency] Onset: 02-16-2021 03-25-2021 Chronic Other nutritional; [...] nutritional; endocrine; and metabolic disorders (5 sources) Xcbxd-1-jjcdjbxqoqt deficiency; Translations: [Nqpwx-6-xqfgyafaplq deficiency] Onset: 03-25-2021 10-05-2024 Chronic Other nutritional; [...] conditions (not mental disorders or infectious disease) (6 sources) Raised prostate specific antigen; Translations: [Elevated prostate specific antigen [PSA]] Onset: 11-28-2024 Episodic Other skin disorders (5 sources) Disorder of skin of upper limb; Translations: [Disorder of the skin and subcutaneous tissue, unspecified] 09-17-2023 Episodic Other skin disorders (1 source) Disorder of the skin and subcutaneous tissue, unspecified; Translations: [Unspecified disorder of skin and subcutaneous tissue] 09-15-2023 Episodic Other upper respiratory disease (1 source) Chronic rhinitis; Translations: [Chronic rhinitis] 03-11-2025 Chronic Other upper respiratory disease (1 source) Chronic [...] 07-20-2022 Episodic Respiratory failure; insufficiency; arrest (adult) (20 sources) Chronic hypoxemic respiratory failure; Translations: [Chronic respiratory failure with hypoxia] Onset: 02-16-2021 03-25-2021 Chronic Screening and history of mental health and substance abuse codes (9 sources) Personal history of nicotine dependence; Translations: [H/O: Disorder] Onset: 10-05-2022 Episodic Spondylosis; intervertebral disc disorders; other back problems (14 sources) Radiculopathy, cervical region; Translations: [Cervical radiculopathy] Episodic Substance-related disorders (5 sources) History of drug abuse 01-24-2024 Chronic Unclassified (4 sources) CONTACT W/AND (SUSP) EXPOS COVID-19; Translations: [CONTACT W/AND (SUSP) EXPOS COVID-19] Onset: 04-27-2022 Unclassified (3 sources) COUGH, UNSPECIFIED; Translations: [COUGH, UNSPECIFIED] Onset: 03-22-2022 Unclassified (1 source) UNVACCINATED FOR COVID-19; Translations: [UNVACCINATED FOR COVID-19] Onset: 05-04-2022 Unclassified (1 source) A [facility] screening has identified you as FRAIL [...] Four Ways to Beat the Frailty Risk [email or web address] oea-qiv-uvfuykbmji/sta p-vkwspy-ftcf-ways-to- ukno-azs-gcq ilty-risk 10-05-2024 Unclassified (4 sources) Long-term current use of inhaled steroid 10-10-2024 Comment on above: noted in 09/19/2024 Pulmonology Consult Note page 2. added per OP CDI policy. Unclassified (4 sources) Long-term current use of steroid 10-10-2024 Comment on above: noted in 09/19/2024 Pulmonology Consult Note page 2. added per OP CDI policy. Unclassified (1 source) Supraventricular tachycardia, unspecified; Translations: [Supraventricular tachycardia, unspecified] Onset: 01-24-2025 Viral infection (2 sources) Disease caused by 2019-nCoV; Translations: [COVID-19] 10-06-2024 Episodic Viral infection (1 source) COVID-19; Translations: [COVID-19] [...] Test Name Value Interpretation Reference Range Facility Theophylline SerPl-mCncon Theophylline [Mass/Vol] 3.1 ug/mL Low 10.0-20.0 [facility] Comment on above: Order Comment: Speci men Type: BLOOD SPECIMEN Ordering Facility: [facility] Address: [address] [place] [address] Result Comment: Refe rence ranges and high/low indicator flags are provided as general guidelines only. The treating physician must determine appropriate target levels/dosing based on the specific clinical situation. Performed By: #### 4 [id number] #### [facility] CLIA [id number] [address] [place] [address] CNPNon 04-21-2025 CNPN Telephone (PULMAV) -- RICARDO HYLTON ([id number]) 1960 M Date Time Provider Department 04/21/25 LESLYE MCLEAN PULMAV During your visit today, we recorded the following information about you: Leslye Mclean MD 04/21/2025 8:52 AM Signed I noted his theophylline levels aren't yet completed, he was advised to get this cone 2 weeks ago to ensure the milo levels are ok Please advise him to get this completed on Tuesday or latest by Tuesday Please note level to be done 6- 8 hours post dose WE CAN TITRATE UP NEEDED and guided by levels Thanks Leslye Mclean MD Result Notes Component Ref Range AND Units 3 wk ago 1 mo ago Theophylline 10.0 - 20.0 ug/mL 2.2 Low 30.0 High CM Francisco Sosa LPN 04/22/2025 9:55 AM Signed Called and LVM x1, sent MCM x1 Francisco Sosa LPN 04/23/2025 9:23 AM Addendum Called and LVM x1. Passed along Dr. Mclean's message again. Instructed pt to call back with any questions. Allergies As of Date: 04/21/2025 Noted Allergy Reaction METFORMIN 03/25/2021 5 - Intolerance Comments: diarrhea Date Reviewed: 03/11/2025 Reviewed by: Leslye Mclean MD - Fully Assessed Reason for Visit: Patient Update [1234] Cmt: Blood test is pending milo levels Orders [681] Prescriptions as of 04/23/2025 - theophylline ER 200 mg 12 hr tablet Take 1 tablet by mouth two times a day. - albuterol (PROVENTIL) 2.5 mg /3 mL (0.083 %) nebulizer solution Use 3 mL via nebulizer three times a day as needed for wheezing/shortness of breath. Inhale over 5-15 minutes - Ipratropium [place] (ATROVENT) 21 mcg (0.03 %) nasal spray Use 2 sprays in the nose every 12 hours. - thqai-8-qfpnjsnmbe inhibitor (Human) 1,000 mg in water for [...] 10 mg by mouth twice daily. - HYDROcodone-acetaminophen (NORCO) 5-325 mg per tablet TAKE 1 TABLET BY MOUTH FOUR TIMES A DAY NEEDED - metoprolol succinate ER (TOPROL XL) 25 mg 24 hr tablet Take 25 mg by mouth once daily. - omeprazole (PRILOSEC) 20 mg capsule Take 20 mg by mouth once daily. - OZEMPIC 0.25 mg or 0.5 mg(2 mg/1.5 mL) pnij INJECT 0.5MG SUBCUTANEOUSLY WEEKLY - valACYclovir (VALTREX) 1 gram Take 2,000 mg by mouth twice daily. - VENLAFAXINE ER 150 MG TABLET,EXTENDED RELEASE 24 HR Take 150 mg by mouth twice daily. 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] 02/16/2021 Chronic obstructive pulmonary disease (HCC) [J4*01/17/2019 Essential hypertension [I10] 02/14/2019 RANCHO (obstructive sleep apnea) [G47.33] 03/25/2021 Depression [F32.A] 03/25/2021 GERD (gastroesophageal reflux disease) [K21.9] 03/25/2021 Diabetes (HCC) [E11.9] 03/25/2021 Bipolar 1 disorder (HCC) [F31.9] 03/25/2021 Encounter Status:Closed by LESLYE MCLEAN on 04/21/25 [facility] 04-18-20 [facility] Case Information Case Priority: None Programs: -- Referral Source: Advertising Inserter Referral Reason: Care coordination Case Type: Transition Care Management Risk Score: -- Case Status: Enrolled (April 18, 2025) Date Assigned: April 18, 2025 Assigned By: Mark Richardson Date Enrolled: April 18, 2025 Assigned Primary Personnel: Mark Richardson Assigned Secondary Personnel: -- Case Physician: SARAH TRIVEDI CNP Problems Ongoing Anxiety BPH with obstruction/lower urinary tract symptoms Chronic hypoxic respiratory failure Chronic prostatitis Elevated PSA Emphysema/COPD Former smoker History of opioid abuse Hyperlipidemia 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 Home Medications aripiprazole 10 mg Tab, 10 mg= 1 tab(s), Oral, Daily, 1 refills cyclobenzaprine 5 mg Tab, 5 mg= 1 tab(s), Oral, BID DuoNeb 2.5 mg-0.5 mg/3 mL Soln-Inh, 3 mL, NEB, QID, PRN furosemide 40 mg Tab, 40 mg= 1 [...] DM 30 mg-600 mg Tab-ER, See Instructions nystatin Top 100,000 units/g Pwdr, 1 scarlett, Topical, TID omeprazole 20 mg Cap-DR, See Instructions Ozempic 2 mg/3 mL (0.25 mg or 0.5 mg dose) subcutaneous solution, See Instructions pravastatin 80 mg Tab, See Instructions, 1 refills predniSONE, 10 mg, Oral Prolastin-C, See Instructions theophylline 450 mg ER Tab, See Instructions Trelegy Ellipta 100 mcg-62.5 mcg-25 mcg inhalation powder, 1 puff(s), Inhalation, Daily venlafaxine 150 mg Cap-ER, See Instructions Allergies metFORMIN (Diarrhea) Social History Alcohol Current. Beer. Daily., 06/04/2024 Substance Abuse Past. Marijuana. 1-2 times per year. Previous treatment: None., 06/04/2024 Tobacco Former smoker, quit more than 30 days ago, quit 15 years ago Tobacco Use:. Never Smokeless Tobacco Use:. Cigarettes, Stopped age 39 Years., 04/15/2025 Family History Cancer: Father. Diabetes mellitus type 2: Mother. Heart disease: Mother. Screenings and Assessments 04/18/25 14:12:00 Result Name Value Comment Phone Call Monitoring Consent Agreed to continue call Phone Verification Patient Information Full name, street address and date of verified CM Program Enrollment Provides verbal consent for enrollment Goals and Interventions Care Plan Progress Note Admit Date: 04/15/25 [facility] Date of Discharge: 04/17/25 Follow-up appointment scheduled? yes, TCM f/u 04/19 at 1040 with Claire Trivedi Did you understand your discharge instructions? yes Are you able to follow them? yes Did you receive new medications? yes, prednisone taper- 40 mg x 3 days then, 30 mg x 3 days then, 10 mg x 3 days Have you filled the Rx's? going this afternoon to [facility] when ready Are you taking them as prescribed? see previous Are you having difficulty eating or swallowing your pills? no Are you having any stomach upset, diarrhea or constipation? no How are you sleeping? sleep like a baby Are you having any pain? no Do you have everything you need at home to care for yourself? yes Do you have Home Health? no Called patient for initial Transitional Care Management program call. Readmission risk is not available. Reviewed d/c instructions and dx of: acute exacerbation of COPD. Medication reconciled with patient list, EHR, and d/c list. Reviewed purpose and side effects of new medication with patient. Patient states he is doing okay. Notes he has his O2 at 3 liters, continuous flow, nasal cannula. He does get SOB with exertion, or walking distance. His appetite is okay. He drinks lots of water. He wears his CPAP every night, sleeping like a baby. He lays flat, on either side without difficulty. Denies bowel or urinary system issues. Denies any questions or concerns. CN explained TCM program and gave CN contact number. Reviewed TCM appointment with patient. Nothing further at this time. Communication Events Date: April 18, 2025 Method: Phone call Type: Outbound Duration (min): 8 Outcome: Case discussion Contact Type: Patient Contact Name: RICARDO HYLTON Notes: TCM#1- See TCM note. Created By: Mark Richardson Date: April 18, 2025 Method: Phone call Type: Outbound Duration (min): 1 Outcome: Left message-voicemail Cont (more content not included)... Normal [facility] Basic Metabolic Panelon 09-3 Anion gap [Moles/Vol] 14.7 mmol/L Normal 6.0-15.0 Th e Count Includes [facility] Comment on above: Performed By: #### G LULS #### Point of Care testing , Calcium [Mass/Vol] 9.2 mg/dL Normal 8.6-10.3 The Count Includes [facility] Comment on above: Performed By: #### G LULS #### Point of Care testing , Chloride [Moles/Vol] 100 mmol/L Normal 98-107 The Count Includes [facility] Comment on above: Performed By: #### G LULS #### Point of Care testing , CO2 [Moles/Vol] 28.7 mmol/L Normal 21.0-31.0 The Count Includes [facility] Comment on above: Performed By: #### G LULS #### Point of Care testing , Creatinine [Mass/Vol] 1.09 mg/dL Normal 0.70-1.30 The Count Includes [facility] Comment on above: Performed By: #### G LULS #### Point of Care testing , Creatinine Clr Calc Pharmacy 82.89 Normal The Count Includes [facility] Comment on above: Result Comment: PERF ORMED BY: [place] [id number] PATHOLOGIST BREAD SUPERVISOR SHIVA RIVAS M.D. Performed By: #### G LULS #### Point of Care testing , GFR/1.73 sq M.predicted MDRD (S/P/Bld) [Vol rate/Area] mL/min/{1.73_m2} Normal The Count Includes [facility] Comment on above: Performed By: #### G LULS #### Point of Care testing , Glucose [Mass/Vol] 193 mg/dL High 70-100 The Count Includes [facility] Comment on above: Result Comment: [facility] Glucose Reference Range is dependent on time and content of last meal. Glucose of more than 200 mg/dL in a nonstressed, ambulatory subject supports the diagnosis of Diabetes Mellitus. ADA recommended reference range Performed By: #### G LULS #### Point of Care testing , Potassium [Moles/Vol] 4.4 mmol/L Normal 3.5-5.1 The Count Includes [facility] Comment on above: Performed By: #### G LULS #### Point of Care testing , Sodium [Moles/Vol] 139 mmol/L Normal 136-145 The Count Includes [facility] Comment on above: Performed By: #### G LULS #### Point of Care testing , Urea nitrogen [Mass/Vol] 24 mg/dL Normal 7-25 The Count Includes [facility] Comment on above: Performed By: #### G LULS #### Point of Care testing , ECH echo transthoracicon [facility] echo transthoracic [facility] Main [place] [id number] Echocardiogram Signed Patient: Ricardo Hylton MR#: [id number] : 1960 Acct:[id number] Age/Sex: 64 / M ADM Date: 04/15/25 Loc: Room: [address] [place] [address] Type: ADM IN Attending Dr: Gael Marreor DO Ordering Provider: Serene Cho MD Date of Service: 04/15/25 ECH/ECH echo transthoracic: Shortness of Breath/Dyspnea Copies to: MD Simba Tellez MD A PM Patient Location: : 1960 Gender: Male (MM/DD/YYYY) Age: 64 Years Ordering Physician: Serene Cho Height: 69 in Weight: 244.272 lb Performed By: Florencio Major [facility], T BSA: 2.25 m2 BP: 131 / 72 mmHg HR: 77 bpm Reason For Study: Shortness of Breath/Dyspnea History: ESRD CHF CVA HLD HTN + + Interpretation Summary Ejection Fraction = 55-60%. Mild concentric left ventricular hypertrophy. A variety of Doppler measurements indicate normal left ventricular diastolic function. Regional wall motion abnormalities cannot be excluded due to limited visualization. Inadequate TR to estimate RVSP. The study was technically suboptimal in quality due to poor acoustic windows . There is no comparison study available. Procedure/Quality: A two-dimensional transthoracic echocardiogram with color flow, Doppler and injection of contrast agent Definity was performed. The study was technically suboptimal in quality due to poor acoustic windows . Left Ventricle: The left ventricular size is normal. Mild concentric left ventricular hypertrophy. Ejection Fraction = 55-60%. A variety of Doppler measurements indicate normal left ventricular diastolic function. Regional wall motion abnormalities cannot be excluded due to limited visualization. Left Atrium: The left atrium appears normal in size. Right Atrium: The right atrium is not well visualized. Right Ventricle: The right ventricle is not well visualized. The right ventricle is normal in size and function. Aortic Valve: The aortic valve is not well visualized. No hemodynamically significant valvular aortic stenosis. Mitral Valve: The mitral valve is normal in structure. No significant mitral valve stenosis. There is no mitral regurgitation noted. Tricuspid Valve: The tricuspid valve is not well visualized. No tricuspid regurgitation. Inadequate TR to estimate RVSP. Pulmonic Valve: The pulmonic valve is not well visualized. Arteries: The aortic root is normal size. Pericardium/Pleura: No pericardial effusion seen. IVC/Hepatic Veins: The inferior vena cava is normal in size, with a normal collapsibility index. MMode/2D Measurements Calculations IVSd (0.7-1.1 cm): 1.30 cm LVIDd (3.7-5.4 cm): 4.4 cm LVPWd (0.7-1.1 cm): 1.30 cm LVIDs (2.3-3.6 cm): 2.9 cm LA dimension (2.3-4.0 cm): 3.5 LVOT diam: 2.10 cm cm FS: 34.1 % LVOT area: 3.5 cm2 EDV(Teich): 87.7 ml Ao root area: 9.1 cm2 ESV(Teich): 32.2 ml Ao root diam (2.0-3.2 cm): 3.4 cm EF(Teich): 63.3 % asc Aorta Diam: 3.3 cm LA A2 area: 17.6 cm2 LA A4 area: 12.9 cm2 LA length (vol): 4.6 cm LA vol: 42.2 ml LA vol index: 18.8 ml/m2 Doppler Measurements Calculations E/E' med: 9.3 Ao V2 max: 152.0 cm/sec E/E' lat: 10.5 Ao max P.2 mmHg MV E max davin: 71.6 cm/sec Ao mean P.0 mmHg MV A max davin: 90.0 cm/sec Ao V2 mean: 99.1 cm/sec MV E/A: 0.80 Ao V2 VTI: 28.2 cm FLORESITA(I,D): 2.5 cm2 FLORESITA(V,D): 2.5 cm2 MV V2 VTI: 38.5 cm MV mean P.00 mmHg MV V2 mean: 53.2 cm/sec MV dec time: 0.25 sec TV max P.0 mmHg LV V1 max: 111.0 cm/sec TR max davin: 124.0 cm/sec LV V1 max P.9 mmHg TR max P.2 mmHg LV V1 mean: 72.2 cm/sec RAP systole: 3.0 mmHg LV V1 mean P.0 mmHg RVSP(TR): 9.2 mmHg LV V1 VTI: 20.6 cm + + + -+ + : Electronically : : : : signed by: Simba : : Harry : : : : Teri : : : : : : on: 04/16/2025, : : 8:01 PM : + -+ + Tech Comments No previous echo. Transcribed By: SCV Performed At: 04/16/25 1522 Signed By: Simba Williamson MD 04/16/252000 Normal The Count Includes [facility] Alanine aminotransferase [En zymatic activity/volume] in Serum or PlasmaOrdered By: Abel Perez on 04-15-2025 ALT [Catalytic activity/Vol] 14 U/L Normal 7-52 [facility] Comment on above: Performed By: #### B CALISTA, RESP PANEL UPP. #### [address] [place] [address] [facility] Albumin [Mass/volume] in Ser um or Plasma by Bromocresol green (BCG) dye binding methoOrdered By: Abel Perez on 04-15-2025 Albumin BCG dye [Mass/Vol] 4.3 g/dL 3.5-5.7 [facility] Alkaline phosphatase [Enzyma tic activity/volume] in Serum or PlasmaOrdered By: Abel Perez on 04-15-2025 ALP [Catalytic activity/Vol] 79 U/L Normal 34-104 [facility] Comment on above: Performed By: #### B IOFIRECOVDET, RESP PANEL UPP. #### [facility] [address] Ambulatory Visit Summaryon 0 04-15-2025 Ambulatory Visit Summary Ambulatory Visit Summary RICARDO HYLTON :1960 Visit Date:04/15/2025 Ambulatory Visit Instructions Your Diagnosis Elevated PSA BPH with obstruction/lower urinary tract symptoms Chronic prostatitis Former smoker Other obstructive and reflux uropathy Your Care Team Attending Physician - BARRERA Nuñez APRN, Flora Torer Primary Care Physician - SARAH TRIVEDI CNP This Is Your Medications List [facility] Prescription (Glucose Kit) albuterol-ipratropium (Combivent Respimat 20 mcg-100 mcg) alpha 1-proteinase inhibitor (Prolastin-C) aripiprazole (aripiprazole 10 mg Tab) aripiprazole (aripiprazole 10 mg Tab) aspirin (aspirin 81 mg Oral EC Tab) cyclobenzaprine (cyclobenzaprine 5 mg Tab) dextromethorphan-guaifenes in (Mucinex DM 30 mg-600 mg Tab-ER) empagliflozin (Jardiance 25 mg oral tablet) fluticasone/umeclidinium/v ilanterol (Trelegy Ellipta 100 mcg-62.5 mcg-25 mcg inhalation powder) furosemide (furosemide 40 mg Tab) glipiZIDE (glipiZIDE 10 mg Tab) hydrOXYzine (hydrOXYzine hydrochloride 50 mg oral tablet) ipratropium nasal (ipratropium Nasal 0.03% [place]) lisinopril (lisinopril 5 mg Tab) metoprolol (metoprolol 25 mg ER Tab) nystatin topical (nystatin Top 100,000 units/g Pwdr) omeprazole (omeprazole 20 mg Cap-DR) pravastatin (pravastatin 80 mg Tab) semaglutide (Ozempic 2 mg/3 mL (0.25 mg or 0.5 mg dose) subcutaneous solution) theophylline (theophylline 450 mg ER Tab) venlafaxine (venlafaxine 150 mg Cap-ER) Procedures Performed Cardiac catheter. Discharge Vitals Heart Rate (Peripheral) 81 Blood Pressure 143/87 Height 178 cm Height 70 in Weight 109.2 kg Weight 240.745 lb BMI 34.47 What to do next Scheduled Follow-Up Appointments Tuesday 2:30 PM EST With: Where: [address] [id number]- Tuesday 3:20 PM EST With: SARAH TRIVEDI CNP Where: [address] [id number]- [id number] 1:15 PM EDT With: Joo YIP MD Where: [facility] [address] [place] [address]- Medications What How Much When Why Instructions Unchanged albuterol-ipratropium (Combivent Respimat 20 mcg-100 mcg) 1 Puffs [...] 1 Tablets By Mouth Every day Unchanged cyclobenzaprine (cyclobenzaprine 5 mg Tab) 1 Tablets By Mouth 2 times a day Unchanged dextromethorphan-guaifenes in (Mucinex DM 30 mg-600 mg Tab-ER) See [...] TIMES A DAY NEEDED FOR ANXIETY Unchanged ipratropium nasal (ipratropium Nasal 0.03% [place]) Unchanged lisinopril (lisinopril 5 mg Tab) 1 Tablets By Mouth Every day Unchanged metoprolol (metoprolol 25 mg ER Tab) 1 Tablets By Mouth Every day Unchanged [facility] [place] [facility] Prescription (Glucose Kit) See instructions Type 2 diabetes mellitus with complication Glucose meter. Include autolet, matching test strips, lancets, & alcohol wipes, #100 or as allowed by insurance; DX: E11.9 Unchanged nystatin topical (nystatin Top 100,000 units/ g Pwdr) 1 Application Topical 3 times a day Skin yeast infection Unchanged omeprazole (omeprazole 20 mg Cap-DR) See instructions TAKE 1 CAPSULE BY MOUTH EVERY DAY Unchanged pravastatin (pravastatin 80 mg Tab) See instructions TAKE 1 TABLET BY MOUTH EVERYDAY AT BEDTIME Unchanged semaglutide (Ozempic 2 mg/ 3 mL (0.25 mg or 0.5 mg dose) subcutaneous solution) See instructions INJECT 0.5 MG SUBCUTANEOUSLY ONE TIME PER WEEK Unchanged theophylline (theophylline 450 mg ER Tab) See instructions TAKE 1 TABLET BY MOUTH EVERY 12 HOURS Unchanged venlafaxine (venlafaxine 150 mg Cap-ER) See instructions TAKE 1 CAPSULE BY MOUTH TWICE A DAY Allergies metFORMIN (Diarrhea) Problems Ongoing - Any problem that you are currently receiving treatment for. Anxiety BPH with obstruction/lower urinary tract symptoms Chronic hypoxic respiratory failure Chronic pro (more content not included)... Normal [facility] Arterial Blood Gason 025 ABG Base Excess 0.3 mmol/L Normal -3.0-3.0 The Count Includes [facility] Comment on above: Performed By: #### B CALISTA, RESP PANEL UPP. #### [place] [address] ABG Frac Inspired O2 60 % Normal The Count Includes [facility] Comment on above: Performed By: #### B IOFIRECOVDET, RESP PANEL UPP. #### [address] ABG Liter Flow 8 Normal The Count Includes [facility] Comment on above: Performed By: #### B IOFIRECOVDET, RESP PANEL UPP. #### [address] ABG Oxygen Content 9.5 mmol/L Normal 6.6-9.7 The Count Includes [facility] Comment on above: Performed By: #### B IOFIRECOVDET, RESP PANEL UPP. #### [address] ABG Oxygen Saturation 97.9 % Normal 95.0-100.0 The Count Includes [facility] Comment on above: Performed By: #### B IOFIRECOVDET, RESP PANEL UPP. #### [address] ABG PCO2 38.7 mm[Hg] Normal 35.0-45.0 The Count Includes [facility] Comment on above: Performed By: #### B IOFIRECOVDET, RESP PANEL UPP. #### [address] ABG PH 7.42 Normal 7.35-7.45 The Count Includes [facility] Comment on above: Performed By: #### B IOFIRECOVDET, RESP PANEL UPP. #### [address] ABG PO2 108.8 mm[Hg] High 80.0-100.0 The Count Includes [facility] Comment on above: Performed By: #### B IOFIRECOVDET, RESP PANEL UPP. #### [address] Oxygen Device Aerosol Normal The Count Includes [facility] Comment on above: Performed By: #### B IOFIRECOVDET, RESP PANEL UPP. #### [address] [place] [address] [place] Respiratory Critical Normal The Count Includes [facility] Comment on above: Result Comment: Crit ical Value called on: 04/15/2025 at 15:13 PERFORMED BY: [place] [address] PATHOLOGIST BREAD SUPERVISOR SHIVA RIVAS M.D. Performed By: #### B IOFIRECOVDET, RESP PANEL UPP. #### [address] VBG Draw Site Left Radial Normal The Count Includes [facility] Comment on above: Performed By: #### B IOFIRECOVDET, RESP PANEL UPP. #### [address] Arterial Blood GasOrdered By : Abel Perez on 04-15-2025 CO2 [Moles/Vol] 25.8 mmol/L Normal 23.0-27.0 [facility] Comment on above: Performed By: #### B IOFIRECOVDET, RESP PANEL UPP. #### [address] HCO3 (Bld) [Moles/Vol] 24.6 mmol/L Normal 23.0-29.0 [facility] Comment on above: Performed By: #### B IOFIRECOVDET, RESP PANEL UPP. #### [address] Aspartate aminotransferase [ Enzymatic activity/volume] in Serum or PlasmaOrdered By: Abel Perez on 04-15-2025 AST [Catalytic activity/Vol] 13 U/L Normal 13-39 [facility] Comment on above: Performed By: #### B IOFIRECOVDET, RESP PANEL UPP. #### [address] BNP ser/plasOrdered By: Robin Perez on 04-15-2025 Natriuretic peptide B (Bld) [Mass/Vol] 17.0 pg/mL Normal 5-100 [facility] Comment on above: Result Comment: PERF ORMED BY: [place] [address] PATHOLOGIST BREAD SUPERVISOR SHIVA RIVAS M.D. Performed By: #### B IOFIRECOVDET, RESP PANEL UPP. #### [address] Basophils [#/volume] in Bloo d by Automated countOrdered By: Abel Perez on 04-15-2025 Basophils (Bld) [#/Vol] 0.1 10*3/uL Normal 0.0-0.2 [facility] Comment on above: Result Comment: PERF ORMED BY: [place] [address] PATHOLOGIST BREAD SUPERVISOR SHIVA RIVAS M.D. Performed By: #### B IOFIRECOVDET, RESP PANEL UPP. #### [address] Basophils/100 leukocytes in Blood by Automated countOrdered By: Abel Perez on 04-15-2025 Basophils/100 WBC (Bld) 0.7 % Normal . [facility] Comment on above: Performed By: #### B IOFIRECOVDET, RESP PANEL UPP. #### [address] Bilirubin.total [Mass/volume ] in Serum or PlasmaOrdered By: Abel Perez on 04-15-2025 Bilirubin [Mass/Vol] 0.6 mg/dL Normal 0.3-1.0 [facility] Comment on above: Performed By: #### B IOFIRECOVDET, RESP PANEL UPP. #### [place] [address] [place] BioFire Not Detectedon 04-15 BioFire Not Detected Not detected Normal Not Detecte The Count Includes [facility] Comment on above: Result Comment: This is a duplicate RP2.1 COVID (PCR) result to be used for statistical tracking purpose only. PERFORMED BY: [place] [address] PATHOLOGIST BREAD SUPERVISOR SHIVA RIVAS M.D. Performed By: #### G LESLEE #### Point of Care testing , COVID-19 Detected/Not Detect edOrdered By: Abel Perez on 04-15-2025 SARS-CoV-2 (COVID-19) RNA YOLANDA+non-probe Ql (Nph) Not detected Not Detecte [facility] Comment on above: This is a duplicate RP2.1 COVID (PCR) result to be used for statistical tracking purpose only. Calcium [Mass/volume] in Ser um or PlasmaOrdered By: Abel Perez on 04-15-2025 Calcium [Mass/Vol] 9.1 mg/dL Normal 8.6-10.3 [facility] Comment on above: Performed By: #### B IOFIRECOVDET, RESP PANEL UPP. #### [address] Carbon dioxide, total [Moles /volume] in Serum or PlasmaOrdered By: Abel Perez on 04-15-2025 CO2 [Moles/Vol] 29.6 mmol/L Normal 21.0-31.0 [facility] Comment on above: Performed By: #### B IOFIRECOVDET, RESP PANEL UPP. #### [facility] [address] [place] [address] Chloride [Moles/volume] in S bee or PlasmaOrdered By: Abel Perez on 04-15-2025 Chloride [Moles/Vol] 102 mmol/L Normal 98-107 [facility] Comment on above: Performed By: #### B IOFIRECOVDET, RESP PANEL UPP. #### [address] Complete Blood Count Auto Di ffon 04-15-2025 Mean Corpuscular HGB Conc 32.8 g/dL Normal 32.5-35.6 The Count Includes [facility] Comment on above: Performed By: #### B IOFIRECOVDET, RESP PANEL UPP. #### [place] [address] [place] Monocytes/100 WBC (Bld) 16.49 % Normal 0.00-20.00 The Count Includes [facility] Comment on above: Performed By: #### B IOFIRECOVDET, RESP PANEL UPP. #### [address] NRBC% 0.1 /100{WBC} Normal 0-0.5 The Count Includes [facility] Comment on above: Performed By: #### B IOFIRECOVDET, RESP PANEL UPP. #### [address] White Blood Count 9.7 [CFU]/mL Normal 4.1-10.5 The Count Includes [facility] Comment on above: Performed By: #### B IOFIRECOVDET, RESP PANEL UPP. #### [address] Comprehensive Metabolic Pane serene 04-15-2025 Albumin [Mass/Vol] 4.3 g/dL Normal 3.5-5.7 The Count Includes [facility] Comment on above: Performed By: #### B IOFIRECOVDET, RESP PANEL UPP. #### [address] Creatinine Clr Calc Pharmacy 87.31 Normal The Count Includes [facility] Comment on above: Result Comment: PERF ORMED BY: [place] [address] PATHOLOGIST BREAD SUPERVISOR SHIVA RIVAS M.D. Performed By: #### B IOFIRECOVDET, RESP PANEL UPP. #### [address] GFR/1.73 sq M.predicted MDRD (S/P/Bld) [Vol rate/Area] mL/min/{1.73_m2} Normal The Count Includes [facility] Comment on above: Performed By: #### B IOFIRECOVDET, RESP PANEL UPP. #### [address] Creatine kinase [Enzymatic a ctivity/volume] in Serum or PlasmaOrdered By: Abel Perez on 04-15-2025 CK [Catalytic activity/Vol] 43 U/L Normal 30-223 [facility] Comment on above: Performed By: #### B IOFIRECOVDET, RESP PANEL UPP. #### [facility] [address] Creatinine [Mass/volume] in Serum or PlasmaOrdered By: Abel Perez on 04-15-2025 Creatinine [Mass/Vol] 1.03 mg/dL Normal 0.70-1.30 [facility] Comment on above: Performed By: #### B IOFIRECOVDET, RESP PANEL UPP. #### [facility] [address] ECG 12 lead ECGon 04-15-2025 ECG 12 lead ECG [facility] [place] [address] [place] [address] Electrocardiograph Report Signed Patient: Ricardo Hylton MR#: [id number] [birth year] : 1960 Acct:[id number] Age/Sex: 64 / M ADM Date: 04/15/25 Loc: Room: [address] [place] [address] Type: ADM IN Attending Dr: Serene Cho MD Ordering Provider: Abel Perez PA-C Date of Service: 04/15/25 ECG/ECG 12 lead ECG: Shortness of Breath/Dyspnea Copies to: Test Reason : Blood Pressure : 160/83 mmHG Vent. Rate : 94 BPM Atrial Rate : 94 BPM P-R Int : 132 ms QRS Dur : 90 ms QT Int : 376 ms P-R-T Axes : 67 75 -4 degrees QTcB Int : 470 ms Normal sinus rhythm Confirmed by Mason MANDEL DO ([id number]) on 04/15/2025 8:04:34 PM Referred By: Electronically Signed By: Mason MANDEL DO Transcribed By: MUS Signed By Mason Mandel DO 0 04/15/252003 Normal The Count Includes [facility] Eosinophils [#/volume] in Bl ood by Automated countOrdered By: Abel Perez on 04-15-2025 Eosinophils (Bld) [#/Vol] 0.0 10*3/uL Normal 0.0-0.45 [facility] Comment on above: Performed By: #### B IOFIRECOVDET, RESP PANEL UPP. #### [facility] [address] Eosinophils/100 leukocytes i n Blood by Automated countOrdered By: Abel Perez on 04-15-2025 Eosinophils/100 WBC (Bld) 0.3 % Normal . [facility] Comment on above: Performed By: #### B IOFIRECOVDET, RESP PANEL UPP. #### [address] Erythrocyte distribution wid th [Ratio] by Automated countOrdered By: Abel Perez on 04-15-2025 Erythrocyte distribution width (RBC) [Ratio] 18.1 % High 12.0-14.8 [facility] Comment on above: Performed By: #### B IOFIRECOVDET, RESP PANEL UPP. #### [address] Erythrocytes [#/volume] in B lood by Automated countOrdered By: Abel Perez on 04-15-2025 RBC (Bld) [#/Vol] 5.95 10*6/uL High 3.90-5.60 [facility] Comment on above: Performed By: #### B IOFIRECOVDET, RESP PANEL UPP. #### [address] Glomerular filtration rate [ Volume Rate/Area] in Serum, Plasma or Blood by CreatinineOrdered By: Abel Perez on 04-15-2025 Glomerular filtration rate [Volume Rate/Area] in Serum, Plasma or Blood by Creatinine > 60.0 mL/Min [facility] Glucose Poct Glucometerson 0 04-15-2025 Glucose [Mass/Vol] 348 mg/dL Normal The Count Includes [facility] Comment on above: Result Comment: [facility] Glucose Reference Range is dependent on time and content of last meal. Glucose of more than 200 mg/dL in a nonstressed, ambulatory subject supports the diagnosis of Diabetes Mellitus. PERFORMED BY: [place] [address] PATHOLOGIST BREAD SUPERVISOR SHIVA RIVAS M.D. Performed By: #### B IOFIRECOVDET, RESP PANEL UPP. #### [facility] [address] Glucose [Mass/volume] in Ser um or PlasmaOrdered By: Abel Perez on 04-15-2025 Glucose [Mass/Vol] 108 mg/dL High 70-100 [facility] Comment on above: ADA recommended refe rence rangeRandom Glucose Reference Range is dependent on time and content of last meal. Glucose of more than 200 mg/dL in a nonstressed, ambulatory subject supports the diagnosis of Diabetes Mellitus. Result Comment: [place] om Glucose Reference Range is dependent on time and content of last meal. Glucose of more than 200 mg/dL in a nonstressed, ambulatory subject supports the diagnosis of Diabetes Mellitus. ADA recommended reference range Performed By: #### B IOFIRECOVDET, RESP PANEL UPP. #### [facility] [address] [place] [address] Hematocrit [Volume Fraction] of Blood by Automated countOrdered By: Abel Perez on 04-15-2025 Hematocrit (Bld) [Volume fraction] 47.5 % Normal 38.8-50.0 [facility] Comment on above: Performed By: #### B IOFIRECOVDET, RESP PANEL UPP. #### [facility] [address] [place] [address] Hemoglobin [Mass/volume] in BloodOrdered By: Abel Perez on 04-15-2025 Hemoglobin (Bld) [Mass/Vol] 15.6 g/dL Normal 13.0-17.0 [facility] Comment on above: Performed By: #### B IOFIRECOVDET, RESP PANEL UPP. #### [address] INR in Platelet poor plasma by Coagulation assayOrdered By: Abel Perez on 04-15-2025 INR Coag (PPP) [Relative time] 0.9 {INR} Normal [facility] Comment on above: INR Therapeutic Rang e A) Pre- and Peroperative OAT started two weeks before surgery. NOT HIP SURGERY: 1.5 - 2.5 HIP SURGERY: 2 - 3B) Primary and secondary prevention of venous THROMBOSIS: 2 - 3C) Active venous thrombosis, pulmonary embolismand prevention of recurrent venous thrombosis: 2 - 3D) Prevention of arterial thromboembolismincluding patients with mechanical heart valves: 3 - 4.5 Result Comment: INR Therapeutic Range A) Pre- and Peroperative OAT started two weeks before surgery. NOT HIP SURGERY: 1.5 - 2.5 HIP SURGERY: 2 - 3 B) Primary and secondary prevention of venous THROMBOSIS: 2 - 3 C) Active venous thrombosis, pulmonary embolism and prevention of recurrent venous thrombosis: 2 - 3 D) Prevention of arterial thromboembolism including patients with mechanical heart valves: 3 - 4.5 Performed By: #### B IOFIRECOVDET, RESP PANEL UPP. #### [facility] [address] Leukocytes [#/volume] correc yamil for nucleated erythrocytes in Blood by Automated counOrdered By: Abel Perez on 04-15-2025 WBC corrected for nucl RBC Auto (Bld) [#/Vol] 9.7 10*3/uL 4.1-10.5 [facility] Leukocytes [#/volume] in Blo od by Automated countOrdered By: Abel Perez on 04-15-2025 WBC (Bld) [#/Vol] 9.7 10*3/uL Normal 4.1-10.5 [facility] Comment on above: Performed By: #### B IOFIRECOVDET, RESP PANEL UPP. #### [place] [address] [place] Lymphocytes [#/volume] in Bl ood by Automated countOrdered By: Abel Perez on 04-15-2025 Lymphocytes (Bld) [#/Vol] 0.8 10*3/uL Low 1.00-4.8 [facility] Comment on above: Performed By: #### B IOFIRECOVDET, RESP PANEL UPP. #### [place] [address] [place] Lymphocytes/100 leukocytes i n Blood by Automated countOrdered By: Abel Perez on 04-15-2025 Lymphocytes/100 WBC (Bld) 8.6 % Normal . [facility] Comment on above: Performed By: #### B IOFIRECOVDET, RESP PANEL UPP. #### [facility] [address] MCH [Entitic mass] by Automa yamil countOrdered By: Abel Perez on 04-15-2025 MCH (RBC) [Entitic mass] 26.2 pg Low 27.5-35.2 [facility] Comment on above: Performed By: #### B IOFIRECOVDET, RESP PANEL UPP. #### [facility] [address] MCHC Auto (RBC) [Mass/Vol]Or dered By: Abel Perez on 04-15-2025 MCHC (RBC) [Mass/Vol] 32.8 g/dL 32.5-35.6 [facility] MCV [Entitic volume] by Auto mated countOrdered By: Abel Perez on 04-15-2025 MCV (RBC) [Entitic vol] 79.8 fL Low 83.5-101 [facility] Comment on above: Performed By: #### B IOFIRECOVDET, RESP PANEL UPP. #### [address] Monocyte distribution width [Entitic volume] in Blood by AutomatedOrdered By: Abel Perez on 04-15-2025 Monocyte distribution width Auto (Bld) [Entitic vol] 16.49 % 0.00-20.00 [facility] Monocytes [#/volume] in Bloo d by Automated countOrdered By: Abel Perez on 04-15-2025 Monocytes (Bld) [#/Vol] 0.4 10*3/uL Normal 0.0-0.8 [facility] Comment on above: Performed By: #### B IOFIRECOVDET, RESP PANEL UPP. #### [place] [address] [place] Monocytes/100 leukocytes in Blood by Automated countOrdered By: Abel Perez on 04-15-2025 Monocytes/100 WBC (Bld) 4.4 % Normal . [facility] Comment on above: Performed By: #### B IOFIRECOVDET, RESP PANEL UPP. #### [place] [id number] [place] Neutrophils [#/volume] in Bl ood by Automated countOrdered By: Abel Perez on 04-15-2025 Neutrophils (Bld) [#/Vol] 8.3 10*3/uL High 1.8-7.7 [facility] Comment on above: Performed By: #### B IOFIRECOVDET, RESP PANEL UPP. #### [facility] [address] [place] [address] [place] Neutrophils/100 leukocytes i n Blood by Automated countOrdered By: Abel Perez on 04-15-2025 Neutrophils/100 WBC (Bld) 86.0 % Normal . [facility] Comment on above: Performed By: #### B IOFIRECOVDET, RESP PANEL UPP. #### [facility] [address] No Panel InformationOrdered By: Abel Perez on 04-15-2025 Arterial Blood Base Excess 0.3 mmol/L -3.0-3.0 [facility] Arterial Blood Oxygen Content 9.5 mmol/L 6.6-9.7 [facility] Arterial Blood Oxygen Saturation 97.9 % 95.0-100.0 [facility] Arterial Blood Partial Pressure CO2 38.7 mm[Hg] 35.0-45.0 [facility] Arterial Blood Partial Pressure O2 108.8 mm[Hg] High 80.0-100.0 [facility] Arterial Blood pH 7.42 7.35-7.45 [facility] Blood Gas Critical Value See comment [facility] Comment on above: Critical Value bragg d on: 04/15/2025 at 15:13 Blood Gas Liter Flow 8 L/min [facility] Blood Gas Sample Site Left radial [facility] FiO2 60 % [facility] Oxygen Delivery Device Aerosol [facility] Creatinine Clearance (Chem 87.31 [facility] Nucleated erythrocytes [Pres ence] in Blood by Automated countOrdered By: Abel Perez on 04-15-2025 Nucleated RBC Auto Ql (Bld) 0.1 /100{WBC} 0-0.5 [facility] Partial Thromboplastin Timeo n 04-15-2025 aPTT Coag (Bld) [Time] 31.0 s Normal 25.1-36.5 Th e Count Includes [facility] Comment on above: Result Comment: A he matocrit value greater than 55% may lead to inaccurate results in coagulation testing. Patients having hematocrit values >55% require a special collection tube for coagulation studies. Please contact the laboratory at [phone] for redraw instructions. PERFORMED BY: [place] [address] PATHOLOGIST BREAD SUPERVISOR SHIVA RIVAS M.D. Performed By: #### B IOFIRECOVDET, RESP PANEL UPP. #### [place] [address] [place] Platelet mean volume [Entiti c volume] in Blood by Automated countOrdered By: Abel Perez on 04-15-2025 Platelet mean volume (Bld) [Entitic vol] 7.4 fL Normal 6.6-10.1 [facility] Comment on above: Performed By: #### B IOFIRECOVDET, RESP PANEL UPP. #### [facility] [address] [place] [address] [place] Platelets [#/volume] in Bloo d by Automated countOrdered By: Abel Perez on 04-15-2025 Platelets (Bld) [#/Vol] 214 10*3/uL Normal 150-450 [facility] Comment on above: Performed By: #### B IOFIRECOVDET, RESP PANEL UPP. #### [place] [address] [place] Potassium [Moles/volume] in Serum or PlasmaOrdered By: Abel Perez on 04-15-2025 Potassium [Moles/Vol] 3.9 mmol/L Normal 3.5-5.1 [facility] Comment on above: Performed By: #### B IOFIRECOVDET, RESP PANEL UPP. #### [place] [address] [place] Protein [Mass/volume] in Ser um or PlasmaOrdered By: Abel Perez on 04-15-2025 Protein [Mass/Vol] 7.1 g/dL Normal 6.4-8.9 [facility] Comment on above: Performed By: #### B IOFIRECOVDET, RESP PANEL UPP. #### [facility] [address] Prothrombin time (PT)Ordered By: Abel Perez on 04-15-2025 PT Coag (PPP) [Time] 10.3 s Normal 9.0-12.9 [facility] Comment on above: A hematocrit value g reater than 55% may lead to inaccurate results in coagulation testing. Patients having hematocrit values >55% require a special collection tube for coagulation studies. Please contact the laboratory at [phone] for redraw instructions. Result Comment: A he matocrit value greater than 55% may lead to inaccurate results in coagulation testing. Patients having hematocrit values >55% require a special collection tube for coagulation studies. Please contact the laboratory at [phone] for redraw instructions. Performed By: #### B IOFIRECOVDET, RESP PANEL UPP. #### [facility] [address] [place], [place] [address] [facility] Respiratory (Upper) Panel, P CRon 04-15-2025 Respiratory (Upper) Panel, PCR Adenovirus Not detected [...] Not detected Resp. Syncytial Virus Not detected COVID-19 Detected/Not Detected Not detected Blank Space -- FLUA TEST INCLUDES Influenza A tests for the following clinically FLUA TEST INCLUDES significant subtypes: FLUA TEST INCLUDES - Influenza A FLUA TEST INCLUDES - Influenza A H1 FLUA TEST INCLUDES - Influenza A H1 2009 FLUA TEST INCLUDES - Influenza A H3 Blank Space -- PERFORMED BY: [place] [address] PATHOLOGIST BREAD SUPERVISOR SHIVA RIVAS M.D. Normal The Count Includes [facility] Comment on above: Performed By: #### G LESLEE #### Point of Care testing , Respiratory pathogens DNA an d RNA panel - Nasopharynx by YOLANDA with non-probe detectionOrdered By: Abel Perez on 04-15-2025 Respiratory pathogens DNA and RNA panel YOLANDA+non-probe (Nph) [facility] Serum globulin measurement b y calculation (mass/volume)Ordered By: Abel Perez on 04-15-2025 Globulin (S) [Mass/Vol] 2.8 g/dL [facility] Comment on above: Performed By: #### B IOFIRECOVDET, RESP PANEL UPP. #### [facility] [address] [place] [address] Serum or plasma albumin/glob ulin mass ratioOrdered By: Abel Perez on 04-15-2025 Albumin/Globulin [Mass ratio] 1.5 {ratio} [facility] Comment on above: Performed By: #### B IOFIRECOVDET, RESP PANEL UPP. #### [facility] [address] [place] [address] Serum or plasma anion gap de terminationOrdered By: Abel Perez on 04-15-2025 Anion gap [Moles/Vol] 11.3 mmol/L Normal 6.0-15.0 [facility] Comment on above: Performed By: #### B IOFIRECOVDET, RESP PANEL UPP. #### [facility] [address] [place] [address] Sodium [Moles/volume] in Ser um or PlasmaOrdered By: Abel Perez on 04-15-2025 Sodium [Moles/Vol] 139 mmol/L Normal 136-145 [facility] Comment on above: Performed By: #### B IOFIRECOVDET, RESP PANEL UPP. #### [facility] [address] Troponin I High Sensitivityo n 04-15-2025 Troponin I High Sensitivity 7 Normal 0-20 The Count Includes [facility] Comment on above: Result Comment: The Troponin units of report have been changed to meet the Chest Pain Accreditation requirement, element EC5.M1l2. Troponin units are changed from pg/ml to ng/L. Also, the decimal is removed and results are in whole numbers. PERFORMED BY: [place] [address] PATHOLOGIST BREAD SUPERVISOR SHIVA RIVAS M.D. Performed By: #### B IOFIRECOVDET, RESP PANEL UPP. #### [facility] [address] Troponin I.cardiac [Mass/vol ume] in Serum or Plasma by Detection limit <= 0.01 ng/mLOrdered By: Abel Perez on 04-15-2025 Troponin I.cardiac DL <= 0.01 ng/mL [Mass/Vol] 7 ng/L 0-20 [facility] Comment on above: The Troponin units o f report have been changed to meet the Chest Pain Accreditation requirement, element EC5.M1l2. Troponin units are changed from pg/ml to ng/L. Also, the decimal is removed and results are in whole numbers. Urea nitrogen [Mass/volume] in Serum or PlasmaOrdered By: Abel Perez on 04-15-2025 Urea nitrogen [Mass/Vol] 22 mg/dL Normal 7-25 [facility] Comment on above: Performed By: #### B IOFIRECOVDET, RESP PANEL UPP. #### [facility] [address] Urology Office/Clinic Noteon 04-15-2025 Urology Office/Clinic Note Urology Office/Clinic Note Chief Complaint review MRI HPI Staff 64 year old male presents to review MRI. Prev dx: elevated PSA, BPH, chronic prostatitis, former smoker 03/20/25 - 5.0 & 0.5% IPSS:8 no urine sample at this time Denies dysuria, denies visible blood in urine. History of Present Illness I have reviewed and verified the staff HPI to be accurate for this encounter. Portions of this record may have been created with voice recognition artificial intelligence software, specifically [employer] and or [employer]. Substitutions may have occurred due to the inherent limitations of voice recognition and artificial intelligence software. Review of Systems PHQ Score Initial Depression Screen Score: 0 SCORE Physical Exam Vitals & Measurements HR: 81(Peripheral) BP: 143/87 HT: 70 in HT: 178 cm WT: 240.745 lb WT: 109.2 kg BMI: 34.47 General: Well developed, well nourished, in no acute distress. Here w/ significant other today Assessment/Plan PRW pt 1. Elevated PSA (R97.20: Elevated prostate specific antigen [PSA]) PSA: 01/24/24 - 7.8 10/25/24 - 5.0 03/20/25 - 5.0 & 10% (PSAD 0.13) DESEAN 11/28/24 - 40 g, no nodules MRI 04/11/25 - volume 39 ml, PI-RADS 4 Discussed PSA trend and recent MRI results. Rec fusion bx at this time. We discussed risks of MRI fusion prostate biopsy approaches including transrectal. Risks of the procedure were discussed to include but not be limited to bleeding, pain, infection (higher, including sepsis with transrectal approach), difficulties with urination, injury to the urethra, prostate or bladder or surrounding tissues, injury from positioning on the table, swelling and bruising of the skin, and need for further procedures. Pt declines any questions at this time, does agree to move forward. DM, emphysema/COPD 3 L O2 at baseline, sees pulm at [facility], [facility]CHO -schedule fusion bx 2. BPH with obstruction/lower urinary tract symptoms (N40.1: Benign prostatic hyperplasia with lower urinary tract symptoms) IPSS 8 (11), QoL 1 No specimen for UA today no prostate or bladder meds at this time -cont to monitor 3. Chronic prostatitis (N41.1: Chronic prostatitis) tx w/ doxycycline x 3wk at initial OV denies sxs today 4. 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 retirement (current) use of systemic steroids Major depressive [...] hydrochloride 50 mg oral tablet, See Instructions ipratropium Nasal 0.03% [place] Jardiance 25 mg oral tablet, 25 mg= 1 tab(s), Oral, qAM, 1 refills lisinopril 5 mg Tab, 5 mg= 1 tab(s), Oral, Daily metoprolol 25 mg ER Tab, 25 mg= 1 tab(s), Oral, Daily Mucinex DM 30 mg-600 mg Tab-ER, See Instructions nystatin Top 100,000 units/g Pwdr, 1 scarlett, Topical, TID omeprazole 20 mg Cap-DR, See Instructions Ozempic 2 mg/3 mL (0.25 mg or 0.5 mg dose) subcutaneous solution, See Instructions pravastatin 80 mg Tab, See Instructions, 1 refills Prolastin-C, See Instructions theophylline 450 mg ER Tab, See Instructions Trelegy Ellipta 100 mcg-62.5 mcg-25 mcg inhalation powder, 1 puff(s), Inhalation, Daily venlafaxine 150 mg Cap-ER, See Instructions Allergies metFORMIN (Diarrhea) Social History Alcohol Current. Beer. Daily., 06/04/2024 Substance Abuse Past. Marijuana. 1-2 times per year. Previous treatment: None., 06/04/2024 Tobacco Former smoker, quit more than 30 days ago, quit 15 years ago Tobacco Use:. Never Smokeless Tobacco Use:. Cigarettes, Stopped age 39 Years., 04/15/2025 Family History Cancer: Father. Diabetes mellitus type 2: Mother. Heart disease: Moth (more content not included)... Normal [facility] Comment on above: Result Comment: Elec tronically Signed By: BARRERA Nuñez APRN, Flora Torre\.br\Date and Time Signed: 04/15/25 14:15 EDT X-ray reportOrdered By: Tino Lan on 04-15-2025 Study report [facility] [place] [address] [place] [address] XRay Report Signed Patient: Ricardo Hylton MR#: [id number] : 1960 Acct:[id number] Age/Sex: 64 / M ADM Date: 5 Loc: ER Room: Type: [facility] ER Attending Dr: Copies to: Abel Perez [...] Lan M.D. 04/15/2025 3:51 PM Dictation Location: [facility]-20 Transcribed By: DOROTEO 04/15/25 1551 Dictated By: Jd Lan DO 04/15/25 1549 Signed By: 04/15/25 155 [facility] XR chest 2V*on 04-15-2025 XR chest 2V* [place] [address] XRay Report Signed Patient: Ricardo Hylton MR#: [id number] 88 : 1960 Acct:[id number] Age/Sex: 64 / M ADM Date: 04/15/25 Loc: ER Room: Type: [facility] ER Attending Dr: Copies to: Abel Perez PA-C Ordering Provider: Abel Perez PA-C Date of [...] Lan M.D. 04/15/2025 3:51 PM Dictation Location: [facility]-PC-20 Transcribed By: DOROTEO 04/15/25 155 Dictated By: Jd Lan DO 04/15/25 1549 Signed By: 04/15/25 155 Normal The Count Includes [facility] aPTT in Platelet poor plasma by Coagulation assayOrdered By: Abel Perez on 04-15-2025 aPTT Coag (PPP) [Time] 31.0 s 25.1-36.5 [facility] Comment on above: A hematocrit value g reater than 55% may lead to inaccurate results in coagulation testing. Patients having hematocrit values >55% require a special collection tube for coagulation studies. Please contact the laboratory at [phone] for redraw instructions. MR prostate wo/w conon 04-12 MR prostate wo/w con [facility] [place] [address] [place] [id number] MRI Report Signed Patient: Ricardo Hylton MR#: [id number] 88 : 1960 Acct:[id number] Age/Sex: 64 / M ADM Date: 04/11/25 Loc: MR Room: Type: [facility] Attending Dr: Joo Yip MD Copies to: Joo Yip MD Ordering Provider: Joo Yip MD Date of Service: 04/11/25 MR/MR prostate wo/w con: R97.20 EXAMINATION: MR prostate wo/w con HISTORY: ELEVATED PSA COMPARISON: NONE TECHNIQUE: Multiparametric imaging of the prostate gland was performed with IV contrast. FINDINGS: Prostate Dimensions: 4.4 x 3.6 x 4.7 cm. Prostate Volume: 39 mL. Peripheral Zone: Heterogenous inT2 signal suggestive of prior prostatitis. A focal area of T2 hypointensity is seen involving the lateral aspect of the right peripheral zone at the level of the mid gland measuring 9 x 4 mm with associated restricted diffusion and low ADC value. No gross extracapsular extension is seen. Please see series 4 image 12, series 650 image 14 and series 600 image 14. Central/Transitional Zone: BPH changes. Seminal Vesicles: Unremarkable Neurovascular bundles: Unremarkable. Lymphadenopathy: No evidence of lymphadenopathy. Bladder: No focal lesion. Bowel: The visualized bowel is without acute abnormality. Peritoneal Cavity: No free fluid. Bones: No suspicious bony lesion. MR/MR prostate wo/w con IMPRESSION: A focal area of T2 hypointensity is seen involving the lateral aspect of the right peripheral zone at the level of the mid gland measuring 9 x 4 mm with associated restricted diffusion and low ADC value. No gross extracapsular extension is seen. Please see series 4 image 12, series 650 image 14 and series 600 image 14. PI-RADS 4. Targeting of this area on biopsy is recommended. Impression dictated by: Gelacio Wagner Jr. DAlex 04/12/2025 8:25 AM Dictation Location: [facility]22 Transcribed By: DOROTEO 04/12/25824 Dictated By: Gelacio Wagner Jr, DO 04/12/25818 Signed By: 04/12/25824 Normal The Count Includes [facility] Chuyita 03-26-2025 CNPN Telephone (PULMAV) -- RICARDO HYLTON ([id number]) 1960 M Date Time Provider Department 03/26/25 LESLYE MCLEAN [facility] During your visit today, we recorded the following information about you: Leslye Mclean MD 03/26/2025 12:40 PM Signed Please remind pt to get theophylline levels done today. I don't see the levels which was ordered for today His levels were high and if this persists to be high, he would need to be hospitalized for monitoring Please call him otto Thanks MD Tarun Aparicio James, LPN 03/26/2025 12:50 PM Signed Called and spoke with pt, pt stated he will be heading to lab in [address] Mclean through [employer] chat. Will be sure to monitor for results. Leslye Mclean MD 03/27/2025 2:51 PM Signed Pls let pt know Lab levels is low now. Very perplexing. Please ask him, when he got the milo levels checked 2 weeks ago, how much time had lapsed between he took the medicine dose and got level checked? I would have to talk to pharmacy to get some guidance on the resuming dose and based on his answers For now, please hold off to theophylline Thanks MD Tarun Aparicio James, LPN 03/27/2025 3:49 PM Addendum Called and spoke with patient. Passed along Dr. Mclean's message. Pt verbalized understanding. Pt stated that he believes he took the theophylline about 3 hours before he got the 30 lab result draw. Deon Norris [facility] 03/27/2025 4:04 PM Signed The half-life for patients >60 years of age (nonsmoking, healthy) is 9.8 hours (range: 1.6 to 18 hours). We usually say around 5 times the half-life will result in the medication being mostly cleared. So 5x9.8 hours = 49 hours to clear on average but could take longer. But if he stopped it 03/24/2025 before evening dose or 03/25/2025 before morning dose per message then this sub-therapeutic level makes sense. Factors that can slow down theophylline clearance: patients >60 years of age; acute pulmonary edema, cor pulmonale; fever (>=102?F for >=24 hours or lesser temperature elevations for longer periods); heart failure; hepatic impairment (eg, cirrhosis, acute hepatitis, cholestasis); hypothyroidism; patients following cessation of smoking; sepsis with multiple organ failure; shock. I do not have clinical experience with this but from reading: For 25 to 30 mcg/mL: Skip next dose; decrease subsequent doses by at least 25% even if no adverse effects present; recheck serum theophylline concentrations after 3 days to guide further dosage adjustments; if symptomatic or signs of toxicity, discontinue therapy and consider if overdose treatment is needed.. For >30 mcg/mL: Stop therapy and treat overdose; if theophylline is resumed, decrease dose by at least 50% and recheck serum theophylline concentrations after 3 days to guide further dosage adjustment. So would suggest to use 200 mg PO BID if 400 mg PO BID caused level to be 30.0 ug/mL and aiming for 10-15 ug/mL. Deon Norris, GordoD, BCPS Primary Care Clinical Pharmacist Tee Farah [facility] Leslye Mclean MD 03/29/2025 11:16 AM Signed Thanks all. Appreciate it. Pulmonary nursing, please advise pt that we are working with pharmacy on getting correct dosage. How is he doing while he is off theophylline? Any changes in the clinical condition. We could consider coming off the medication all together as this medication could have dosage / side effects challenges, if the levels go high Please let me know his thoughts on this and I will decide accordingly. If we do decide to resume, I would suggest switching him to the 12 hour formulation at 300 mg BID and rechecking a level 6-8 hours post-dose in 3-4 days from when he restarts, then adjusting from there. He shouldn't not use the prior medication of theophylline that he has at home, because, that formulation is longer acting and can risk him to be at supra therapeutic range in future Thanks MD Tarun Aparicio James, LPN 03/29/2025 3:01 PM Signed Called and spoke with pt, passed along Dr. Mclean's message. Pt verbalized understanding. Pt stated he has noticed worsening sob and productive cough being off medication. Would like to start new prescription that Dr. Mclean mentioned. Leslye Mclean MD 04/01/2025 11:00 AM Signed I am sending Theophylline 200 mg ER 12 hour foRmulation to be taken BID Pls start medication And get labs done in 4 days ( pls note level to be done 6- 8 hours post dose) WE CAN TITRATE UP NEEDED and guided by levels Levels ordered Thanks MD Vinay Aparicio Anu, MD 04/01/2025 11:00 AM Signed Addended by: LESLYE MCLEAN on: 04/01/2025 11:00 AM Modules accepted: Orders Allergies As of Date: 03/26/2025 Noted Allergy Reaction METFORMIN 03/25/2021 5 - Intolerance Comments: diarrhea Date Reviewed: 03/11/2025 Reviewed by: Leslye Mclean MD - Fully Assessed Reason for Visit: Patient Update [1234] Primary Visit Diagnosis:Pulmonary (more content not included)... Normal [facility] No Panel InformationOrdered By: Leslye Mclean on 03-26-2025 Theophylline Level 2.2 ug/mL Low 10.0-20.0 [facility] Comment on above: Reference ranges and high/low indicator flags are provided as general guidelines only. The treating physician must determine appropriate target levels/dosing based on the specific clinical situation. Theophylline SerPl-mCncon Theophylline [Mass/Vol] 2.2 ug/mL Low 10.0-20.0 [facility] Comment on above: Order Comment: Kike larry Type: BLOOD SPECIMEN Ordering Facility: [facility] Address: [address] [place] [address] Result Comment: Refe rence ranges and high/low indicator flags are provided as general guidelines only. The treating physician must determine appropriate target levels/dosing based on the specific clinical situation. Performed By: #### 4 [id number] #### [facility] CLIA [id number] [address] [place] [address] [place] Chuyita 03-24-2025 CNPN Telephone (PULMAV) -- RICARDO HYLTON ([id number]) 1960 M Date Time Provider Department 03/24/25 LESLYE MCLEAN [facility] During your visit today, we recorded the following information about you: Allergies As of Date: 03/24/2025 Noted Allergy Reaction METFORMIN 03/25/2021 5 - Intolerance Comments: diarrhea Date Reviewed: 03/11/2025 Reviewed by: Leslye Mclean MD - Fully Assessed Prescriptions as of 03/24/2025 - albuterol (PROVENTIL) 2.5 mg /3 mL (0.083 %) nebulizer solution Use 3 mL via nebulizer three times a day as needed for wheezing/shortness of breath. Inhale over 5-15 minutes - Ipratropium [place] (ATROVENT) 21 mcg (0.03 %) nasal spray Use 2 sprays in the nose every 12 hours. - kspvk-2-yexaylawcu inhibitor (Human) 1,000 mg in water for [...] 10 mg by mouth twice daily. - HYDROcodone-acetaminophen (NORCO) 5-325 mg per tablet TAKE 1 TABLET BY MOUTH FOUR TIMES A DAY NEEDED - metoprolol succinate ER (TOPROL XL) 25 mg 24 hr tablet Take 25 mg by mouth once daily. - omeprazole (PRILOSEC) 20 mg capsule Take 20 mg by mouth once daily. - OZEMPIC 0.25 mg or 0.5 mg(2 mg/1.5 mL) pnij INJECT 0.5MG SUBCUTANEOUSLY WEEKLY - valACYclovir (VALTREX) 1 gram Take 2,000 mg by mouth twice daily. - VENLAFAXINE ER 150 MG TABLET,EXTENDED RELEASE 24 HR Take 150 mg by mouth twice daily. 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 Encounter Status:Closed by LESLYE MCLEAN on 03/24/25 Normal [facility] Ambulatory Visit Summaryon 0 03-20-2025 Ambulatory Visit Summary Ambulatory Visit Summary RICARDO HYLTON :1960 Visit Date:03/20/2025 Ambulatory Visit Instructions Your Diagnosis Elevated PSA BPH with obstruction/lower urinary tract symptoms Chronic prostatitis Former smoker Your Care Team Attending Physician - Joo YIP MD Primary Care Physician - SARAH TRIVEDI CNP This Is Your Medications List Contact prescribing physician if questions or concerns Misc Prescription (Glucose Kit) albuterol-ipratropium (Combivent Respimat 20 mcg-100 mcg) alpha 1-proteinase inhibitor (Prolastin-C) aripiprazole (aripiprazole 10 mg Tab) aripiprazole (aripiprazole 10 mg Tab) aspirin (aspirin 81 mg Oral EC Tab) cyclobenzaprine (cyclobenzaprine 5 mg Tab) dextromethorphan-guaifenes in (Mucinex DM 30 mg-600 mg Tab-ER) empagliflozin (Jardiance 25 mg oral tablet) fluticasone/umeclidinium/v ilanterol (Trelegy Ellipta 100 mcg-62.5 mcg-25 mcg inhalation powder) furosemide (furosemide 40 mg Tab) glipiZIDE (glipiZIDE 10 mg Tab) hydrOXYzine (hydrOXYzine hydrochloride 25 mg Tab) hydrOXYzine (hydrOXYzine hydrochloride 50 mg oral tablet) ipratropium nasal (ipratropium Nasal 0.03% [place]) lisinopril (lisinopril 5 mg Tab) metoprolol (metoprolol 25 mg ER Tab) nystatin topical (nystatin Top 100,000 units/g Pwdr) omeprazole (omeprazole 20 mg Cap-DR) pravastatin (pravastatin 80 mg Tab) semaglutide (Ozempic 2 mg/3 mL (0.25 mg or 0.5 mg dose) subcutaneous solution) theophylline (theophylline 450 mg ER Tab) theophylline (theophylline 450 mg ER Tab) venlafaxine (venlafaxine 150 mg Cap-ER) venlafaxine (venlafaxine 150 mg oral tablet, extended release) Procedures Performed Cardiac catheter. Discharge Vitals Heart Rate (Peripheral) 96 Respiratory Rate 18 Blood Pressure 148/88 Height 178 cm Height 70 in Weight 109.2 kg Weight 240.745 lb BMI 34.47 What to do next Scheduled Follow-Up Appointments Tuesday 2:30 PM EST With: Where: [place] [id number]- Tuesday 3:20 PM EST With: SARAH TRIVEDI CNP Where: [facility] [place] [address] [place] [address]- Tuesday2025 1:15 PM EDT With: Joo YIP MD Where: [facility] [address] [place] [address]- You Need to Schedule the Following Appointments Follow Up with Joo YIP MD, URL When: Where: [facility] [address] [place] [address]- Medications What How Much When Why Instructions Unchanged albuterol-ipratropium (Combivent Respimat 20 mcg-100 mcg) 1 Puffs [...] prescribing physician if questions or concerns Unchanged dextromethorphan-guaifenes in (Mucinex DM 30 mg-600 mg Tab-ER) See [...] 25 mg Tab) 1 Tablets By Mouth 4 times a day as needed for for itching Rhinitis Contact prescribing physician if questions or concerns Unchanged hydrOXYzine (hydrOXYzine hydrochloride 50 mg oral tablet) See instructions TAKE 1 TABLET BY MOUTH THREE TIMES A DAY NEEDED FOR ANXIETY Contact prescribing physician if questions or concerns Unchanged ipratropium nasal (ipratropium Nasal 0.03% [place]) Contact prescribing physician if questions or concerns Unchanged lisinopril (lisinopril 5 mg Tab) (more content not included)... [facility] 03-20-2025 [facility] Telephone (PULMAV) -- RICARDO HYLTON ([id number]) 1960 M Date Time Provider Department 03/20/25 LESLYE MCLEAN [facility] During your visit today, we recorded the following information about you: Sola Hoskins LPN 03/20/2025 12:21 PM Signed CPAP order faxed to [facility] via [employer] Allergies As of Date: 03/20/2025 Noted Allergy Reaction METFORMIN 03/25/2021 5 - Intolerance Comments: diarrhea Date Reviewed: 03/11/2025 Reviewed by: Leslye Mclean MD - Fully Assessed Prescriptions as of 03/20/2025 - albuterol (PROVENTIL) 2.5 mg /3 mL (0.083 %) nebulizer solution Use 3 mL via nebulizer three times a day as needed for wheezing/shortness of breath. Inhale over 5-15 minutes - Ipratropium [place] (ATROVENT) 21 mcg (0.03 %) nasal spray Use 2 sprays in the nose every 12 hours. - gcqsu-3-uzfsxooxsz inhibitor (Human) 1,000 mg in water for [...] 81 mg by mouth once daily. - [employer] MARTIN 2 SENSOR kit as directed. - TRELEGY ELLIPTA 100-62.5-25 mcg INHALE 1 PUFF BY MOUTH DAILY - glipiZIDE (GLUCOTROL) 10 mg tablet Take 10 mg by mouth twice daily. - HYDROcodone-acetaminophen (NORCO) 5-325 mg per tablet TAKE [...] twice daily. 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] 02/16/2021 Chronic obstructive pulmonary disease (HCC) [J4*01/17/2019 Essential hypertension [I10] 02/14/2019 RANCHO (obstructive sleep apnea) [G47.33] 03/25/2021 Depression [F32.A] 03/25/2021 GERD (gastroesophageal reflux disease) [K21.9] 03/25/2021 Diabetes (HCC) [E11.9] 03/25/2021 Bipolar 1 disorder (HCC) [F31.9] 03/25/2021 Letter Text Encounter Status:Closed by SOLA HOSKINS on 03/20/25 Normal [facility] Urology Office/Clinic Noteon 03-20-2025 Urology Office/Clinic Note Urology Office/Clinic Note Chief Complaint 2 month follow up HPI Staff 2 month follow up w/PSA FT Previous DX: BPH w/LUTS, chronic prostatitis Previous PSA 10/25/24 - 5.0 -Start Doxycycline 100 mg bid x 3 wks. PSA FT drawn IO today Pt unable to give urine sample Denies pain or burning, denies visible blood IPSS 11 History of Present Illness Tests reviewed: I have reviewed the previous health record information and history for this patient from Dr. Yip. I have reviewed and verified the staff HPI to be accurate for this encounter. Review of Systems PHQ Score Initial Depression Screen Score: 0 SCORE ROS - Provider Constitutional: denies weight loss, denies hot flashes. Eyes: denies eye problems. Gastrointestinal: denies nausea, denies vomiting. Cardiovascular: denies chest pain or angina. Integumentary: no dryness Musculoskeletal: denies musculoskeletal symptoms. ENMT: denies otolaryngeal symptoms. Respiratory: no shortness of breath. Heme/Lymph: denies easy bleeding tendency, denies easy bruising tendency. Psychiatric: no confusion, no anxiety. Genitourinary: See HPI. Physical Exam Vitals & Measurements HR: 96(Peripheral) RR: 18 BP: 148/88 HT: 70 in HT: 178 cm WT: 240.745 lb WT: 109.2 kg BMI: 34.47 General Appearance: alert, no distress, well nourished, well developed adult. Assessment/Plan PMH: DMII. COPD and emphysema, on O2. Pt accompanied by an adult female today. 1. Elevated PSA (R97.20: Elevated prostate specific antigen [PSA]) PSA: 01/24/24 - 7.8 10/25/24 - 5.0 PSA drawn IO today DESEAN 11/28/24 ~ 40 g, no nodules. Pt was unaware that PSA was to be drawn prior to appt to rev results. Hopefully, his PSA will have decreased after abx course. If PSA decreases to around 3 or less, can f/u in 1 yr with PSA. Pt agreeable. Follow up 1 yr with PSA F&T (pending PSA results below) or sooner if needed. Pt understands and agrees with plan. -Will call pt with PSA results 2. BPH with obstruction/lower urinary tract symptoms (N40.1: Benign prostatic hyperplasia with lower urinary tract symptoms) Pt unable to provide urine sample today. IPSS 11 (10). No BPH meds. Sometimes has UUI if he waits too long to void. Nocturia 1-2x/night. Feels his urination is doing well. 3. Chronic prostatitis (N41.1: Chronic prostatitis) Completed Doxycycline 100 mg bid x 3 wks from prior OV. 4. Former smoker (Z87.891: Personal history of nicotine dependence) 37 yrs, 2 PPD. [1] Increased risk for urothelial cancer. Follow-up With When Contact Information PHI GOSS, Joo Mendoza, URL [facility] [address], [place] [address]- Additional Instructions: 1 yr with PSA F&T (pending PSA results) Patient Education Prostate Cancer Screening I, Ellen Cowan, personally scribed for Dr. Yip on 03/20/2025 14:30:00. . Documentation recorded by the scribe, Ellen Cowan, accurately reflects the services(s) I performed and decisions made by me. Authenticated by Dr. Yip on 03/20/2025 14:31:36. 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 Major depressive [...] refills Glucose Kit, See Instructions hydrOXYzine hydrochloride 25 mg Tab, 25 mg= 1 tab(s), Oral, QID, PRN hydrOXYzine hydrochloride 50 mg oral tablet, See Instructions ipratropium Nasal 0.03% [place] Jardiance 25 mg oral tablet, 25 mg= 1 tab(s), Oral, qAM, 1 refills lisinopril 5 mg Tab, 5 mg= 1 tab(s), Oral, Daily metoprolol 25 mg ER Tab, 25 mg= 1 tab(s), Oral, Daily Mucinex DM 30 mg-600 mg Tab-ER, See Instructions nystatin Top 100,000 units/g Pwdr, 1 scarlett, Topical, TID omeprazole 20 mg Cap-DR, See Instructions Ozempic 2 mg/3 mL (0.25 mg or 0.5 mg dose) subcutaneous solution, See Instructions pravastatin 80 mg Tab, See Instructions, 1 refills Prolastin-C, See Instructions theophylline 450 mg ER Tab, See Instructions, 1 refills theophylline 450 mg ER Tab, See Instruct (more content not included)... Normal [facility] Comment on above: Result Comment: Elec tronically Signed By: Joo YIP MD\.br\Date and Time Signed: 03/20/25 14:31 EDT\.br\Electronically Co-Signed By: Ellen Cowan.br\Date and Time Co-Signed: 03/20/25 14:30 EDT [place] 03-19-2025 NGOZIN Telephone (PULMAV) -- RICARDO HYLTON ([id number]) 1960 M Date Time Provider Department 03/19/25 LESLYE MCLEAN PULMAV During your visit today, we recorded the following information about you: Sola HoskinsTOÑO 03/19/2025 12:10 PM Signed Message Received: Yesterday Leslye Mclean MD [facility] fax note to patient's PCP thanks TAMMIE notes faced to Dr Cowart via [employer] Allergies As of Date: 03/19/2025 Noted Allergy Reaction METFORMIN 03/25/2021 5 - Intolerance Comments: diarrhea Date Reviewed: 03/11/2025 Reviewed by: Leslye Mclean MD - Fully Assessed Prescriptions as of 03/19/2025 - albuterol (PROVENTIL) 2.5 mg /3 mL (0.083 %) nebulizer solution Use 3 mL via nebulizer three times a day as needed for wheezing/shortness of breath. Inhale over 5-15 minutes - Ipratropium [place] (ATROVENT) 21 mcg (0.03 %) nasal spray Use 2 sprays in the nose every 12 hours. - jauez-8-haokstudbv inhibitor (Human) 1,000 mg in water for [...] 10 mg by mouth twice daily. - HYDROcodone-acetaminophen (NORCO) 5-325 mg per tablet TAKE [...] twice daily. 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 Natasha Pelletier Family History Problem Relation Age of Onset Hypertension Mother Family Status - Relation Status Age at Mother [facility] 03[facility]2025 [facility] Telephone (PULMAV) -- RICARDO HYLTON ([id number]) 1960 M Date Time Provider Department 03/13/25 LESLYE MCLEAN PULLORNA During your visit today, we recorded the following information about you: Sola Hoskins LPN 03/13/2025 4:01 PM Signed Message Received: 2 days ago Leslye Mclean MD [facility] Nurse Pls get pulmonary records from Dr. Gonzalez from [place] also get PFT echo and ct chest thanks Faxed CARLOS ENRIQUE request from [facility] with confirmation Sola Hoskins LPN 03/14/2025 1:11 PM Signed Received pulmonary records from Dr. Gonzalez from [place]. Placed in Dr Washington folder for review Sola Hoskins LPN 03/19/2025 2:09 PM Signed Received additional pulmonary records from [facility]. Placed in Dr Washington folder for review Allergies As of Date: 03/13/2025 Noted Allergy Reaction METFORMIN 03/25/2021 5 - Intolerance Comments: diarrhea Date Reviewed: 03/11/2025 Reviewed by: Leslye Mclean MD - Fully Assessed Prescriptions as of 03/19/2025 - albuterol (PROVENTIL) 2.5 mg /3 mL (0.083 %) nebulizer solution Use 3 mL via nebulizer three times a day as needed for wheezing/shortness of breath. Inhale over 5-15 minutes - Ipratropium [place] (ATROVENT) 21 mcg (0.03 %) nasal spray Use 2 sprays in the nose every 12 hours. - wlabn-5-bvwwyprkzf inhibitor (Human) 1,000 mg in water for [...] 10 mg by mouth twice daily. - HYDROcodone-acetaminophen (NORCO) 5-325 mg per tablet TAKE [...] twice daily. 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] 02/16/2021 Chronic obstructive pulmonary disease (HCC) [J4*01/17/2019 Essential hypertension [I10] 02/14/2019 RANCHO (obstructive sleep apnea) [G47.33] 03/25/2021 Depression [F32.A] 03/25/2021 GERD (gastroesophageal reflux disease) [K21.9] 03/25/2021 Diabetes (HCC) [E11.9] 03/25/2021 Bipolar 1 disorder (HCC) [F31.9] 03/25/2021 Encounter Status:Closed by SOLA HOSKINS on 03/13/25 Normal [facility] UKUKN-3-FNSUVDVJEXZes 2024 Alpha 1 antitrypsin [Mass/Vol] 112 mg/dL 90 - 200 mg/dL [facility] Alpha 1 antitrypsin [Mass/Vo l]on 03-12-2025 Interpretation and review of laboratory results Normal [facility] CNPNon 03-12-2025 CNPN Refill (PULMAV) -- RICARDO HYLTON ([id number]) 1960 M Date Time Provider Department 03/12/25 [...] lvm x1 for pt. Sent MCM x1 Penelope Armas RN 03/13/2025 2:31 PM Signed Patient returned call to the office today. Read message below and verbalized understanding. Doesn't use MyChart. Khadijah Pascual 03/15/2025 11:38 AM Signed Patient states needs to send over a script for CPAP and supplies to [facility] Fax not given Please advise Francisco Sosa LPN 03/15/2025 11:42 AM Signed Addended by: FRANCISCO SOSA on: 03/15/2025 11:42 AM Modules accepted: Orders Allergies As of Date: 03/12/2025 Noted Allergy Reaction METFORMIN 03/25/2021 5 - Intolerance Comments: diarrhea Date Reviewed: 03/11/2025 Reviewed by: Leslye Mclean MD - Fully Assessed Primary Visit Diagnosis:RANCHO (obstructive sleep apnea) [G47.33] Prescriptions as of 03/15/2025 - albuterol (PROVENTIL) 2.5 mg /3 mL (0.083 %) nebulizer solution Use 3 mL via nebulizer three times a day as needed for wheezing/shortness of breath. Inhale over 5-15 minutes - Ipratropium [place] (ATROVENT) 21 mcg (0.03 %) nasal spray Use 2 sprays in the nose every 12 hours. - wtrsp-5-slqebjmnnu inhibitor (Human) 1,000 mg in water for [...] 81 mg by mouth once daily. - FieldbookE 2 SENSOR kit as directed. - TRELEGY ELLIPTA 100-62.5-25 mcg INHALE 1 PUFF BY MOUTH DAILY - glipiZIDE (GLUCOTROL) 10 mg tablet Take 10 mg by mouth twice daily. 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] 02/16/2021 Chronic obstructive pulmonary disease (HCC) [J4*01/17/2019 Essential hypertension [I10] 02/14/2019 RANCHO (obstructive sleep apnea) [G47.33] 03/25/2021 Depression [F32.A] 03/25/2021 GERD (gastroesophageal reflux disease) [K21.9] 03/25/2021 Diabetes (HCC) [E11.9] 03/25/2021 Bipolar 1 disorder (HCC) [F31.9] 03/25/2021 Encounter Status:Closed by FRANCISCO SOSA on 03/12/25 [facility] 03-12-2025 ERV BOX (L) 1.59 L [facility] ERV PREDICTED (L) 1.34 L/S [facility] FRC Box (L) 5.23 L [facility] IC BOX (L) 2.01 L [facility] IC PREDICTED (L) 2.67 L[facility] RV Box (L) 3.53 L [facility] RV Box PREDICTED (L) 2.30 L [facility] RV/TLC Box (%) 49 % [facility] RV/TLC Box PREDICTED (%) 33 % [facility] SVC LLN (L) 3.00 L/S [facility] SVC PREDICTED (L) 4.01 L/S [facility] SVC ULN (L) 5.04 L/S [facility] TLC Box (L) 7.27 L [facility] TLC Box PREDICTED (L) 6.92 L [facility] VC (L) BOX 3.76 L [facility] [address] 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 Patient has dyspnea, COPD and was tachypneic. 2 techs attempted. Best test reported despite difficult testing session. // IMPRESSION: Lung volumes (FRC and/or RV) are elevated indicating hyperinflation and air trapping. Electronically Signed On 03-12-2025 13:37:37 EDT by Tory Mukherjee MD ID: [id number] Name: RICARDO HYLTON Race: White Ht: 68.90 in Wt: 240.30 lbs Age: 64 Gender: Male : 1960 Dx: Chronic obstructive pulmonary disease, unspecified Smoking Hx: Non-smoker Doctor: LESLYE MCLEAN Test Date: 03/11/2025 Site: Tech: Gabbie Garcia [...] test reported despite difficult testing session. // PULMONARY FUNCTION LAB [facility] A1AT SerPl-mCncon 03-11-2025 Alpha 1 antitrypsin [Mass/Vol] 112 mg/dL Normal 90-200 [facility] Comment on above: Order Comment: Speci men Type: BLOOD SPECIMEN [facility]ing Facility: [facility] Address: [address] [place] [address] Performed By: #### 1 825-9 #### [facility] CLIA [id number] [address] [place] [address] [place] Basophils Auto (Bld) [#/Vol] Ordered By: Leslye Mclean on 03-11-2025 Basophils (Bld) [#/Vol] 0.06 10*3/uL <0.11 [facility] Basophils/100 WBC Auto (Bld) Ordered By: Leslye Mclean on 03-11-2025 Basophils/100 WBC (Bld) 0.4 % [facility] Blood manual differential co mment interpretation narrativeOrdered By: Leslye Mclean on 03-11-2025 Manual differential comment Carlos (Bld) [Interp] Auto [facility] CBC W Auto Differential pane l (Bld)on 03-11-2025 Basophils (Bld) [#/Vol] 0.06 10*3/uL [facility] Basophils/100 WBC (Bld) 0.4 % [facility] Differential cell count method Nom (Bld) Auto [facility] Eosinophils (Bld) [#/Vol] [facility] Eosinophils/100 WBC (Bld) 0.1 % [facility] Erythrocyte distribution width (RBC) [Ratio] 17.0 % High 11.5 - 15.0 % [facility] Hematocrit (Bld) [Volume fraction] 52.5 % High 39.0 - 51.0 % [facility] Hemoglobin (Bld) [Mass/Vol] 16.6 g/dL 13.0 - 17.0 g/dL [facility] Immature granulocytes (Bld) [#/Vol] 0.06 10*3/uL [facility] Immature granulocytes/100 WBC (Bld) 0.4 % [facility] Interpretation and review of laboratory results Abnormal [facility] Lymphocytes (Bld) [#/Vol] 1.01 10*3/uL [facility] Lymphocytes/100 WBC (Bld) 7.5 % [facility] MCH (RBC) [Entitic mass] 26.0 pg 26.0 - 34.0 pg [facility] MCHC (RBC) [Mass/Vol] 31.6 g/dL 30.5 - 36.0 g/dL [facility] MCV (RBC) [Entitic vol] 82.2 fL 80.0 - 100.0 fL [facility] Monocytes (Bld) [#/Vol] 0.53 10*3/uL [facility] Monocytes/100 WBC (Bld) 3.9 % [facility] Neutrophils (Bld) [#/Vol] 11.88 10*3/uL High [facility] Neutrophils/100 WBC (Bld) 87.7 % [facility] Nucleated RBC (Bld) [#/Vol] 0.02 10*3/uL High [facility] Nucleated RBC/100 WBC (Bld) [Ratio] 0.1 % /100 WBC [facility] Platelet mean volume (Bld) [Entitic vol] 9.2 fL 9.0 - 12.7 fL [facility] Platelets (Bld) [#/Vol] 359 10*3/uL [facility] RBC (Bld) [#/Vol] 6.39 10*6/uL High 4.20 - 6.00 m/uL [facility] WBC (Bld) [#/Vol] 13.55 10*3/uL High [facility] Basophils (Bld) [#/Vol] 0.06 10*3/uL Normal <0.11 [facility] Comment on above: Order Comment: Speci men Type: BLOOD SPECIMEN [facility] Address: [address] [place] [address] Performed By: #### 5 7021-8 #### [facility] CLIA [id number] [address] [place] [address] [place] Basophils/100 WBC (Bld) 0.4 % Normal [facility] Comment on above: Order Comment: Speci men Type: BLOOD SPECIMEN [facility] Address: [address] [place] [address] Performed By: #### 5 7021-8 #### [facility] [place] [id number] [address] [place] [address] [place] Differential cell count method Nom (Bld) Auto Normal [facility] Comment on above: Order Comment: Speci men Type: BLOOD SPECIMEN [facility]ing [facility] Address: [address] [place] [address] Performed By: #### 5 7021-8 #### [facility] IA [id number] [address] [place] [address] [place] Eosinophils (Bld) [#/Vol] 10*3/uL Normal <0.46 [facility] Comment on above: Order Comment: Speci men Type: BLOOD SPECIMEN [facility] Address: [address] [place] [address] Performed By: #### 5 7021-8 #### [facility] IA [id number] [address] [facility] [place] [id number] [place] Eosinophils/100 WBC (Bld) 0.1 % Normal [facility] Comment on above: Order Comment: Speci men Type: BLOOD SPECIMEN [facility]: [facility] Address: [address] [place] [address] Performed By: #### 5 7021-8 #### [facility] IA [id number] [address] [place] [address] [place] Erythrocyte distribution width (RBC) [Ratio] 17.0 % High 11.5-15.0 [facility] Comment on above: Order Comment: Speci men Type: BLOOD SPECIMEN [facility] Facility[facility] Address: [facility] [place] [address] Performed By: #### 5 7021-8 #### [facility] CLIA [id number] [address] [place] [address] [place] Hematocrit (Bld) [Volume fraction] 52.5 % High 39.0-51.0 [facility] Comment on above: Order Comment: Speci men Type: BLOOD SPECIMEN [facility] Address: [address] [place] [address] Performed By: #### 5 7021-8 #### [facility] IA [id number] [address] [place] [address] [place] Hemoglobin (Bld) [Mass/Vol] 16.6 g/dL Normal 13.0-17.0 [facility] Comment on above: Order Comment: Speci men Type: BLOOD SPECIMEN [facility] Address: [address] [place] [address] Performed By: #### 5 7021-8 #### [facility] IA [id number] [address] [place] Immature granulocytes (Bld) [#/Vol] 0.06 10*3/uL Normal <0.10 [facility] Comment on above: Order Comment: Speci men Type: BLOOD SPECIMEN [facility] Address: [address] [place] [address] Performed By: #### 5 7021-8 #### [facility] CLIA [id number] [place] Immature granulocytes/100 WBC (Bld) 0.4 % Normal [facility] Comment on above: Order Comment: Speci men Type: BLOOD SPECIMEN [facility] Address: [address] [place] [address] Performed By: #### 5 7021-8 #### [facility] CLIA [id number] [address] [place] [address] [place] Lymphocytes (Bld) [#/Vol] 1.01 10*3/uL Normal 1.00-4.00 [facility] Comment on above: Order Comment: Speci men Type: BLOOD SPECIMEN [facility] Address: [address] [place] [address] Performed By: #### 5 7021-8 #### [facility] CLIA [id number] [place] [address] [place] Lymphocytes/100 WBC (Bld) 7.5 % Normal [facility] Comment on above: Order Comment: Speci men Type: BLOOD SPECIMEN [facility] Address: [address] [place] [address] Performed By: #### 5 7021-8 #### [facility] IA [id number] [place] [address] [place] MCH (RBC) [Entitic mass] 26.0 pg Normal 26.0-34.0 [facility] Comment on above: Order Comment: Speci men Type: BLOOD SPECIMEN [facility] Address: [address] [place] [address] Performed By: #### 5 7021-8 #### [facility] IA [id number] [place] [address] [place] MCHC (RBC) [Mass/Vol] 31.6 g/dL Normal 30.5-36.0 [facility] Comment on above: Order Comment: Speci men Type: BLOOD SPECIMEN [facility] Address: [address] [place] [address] Performed By: #### 5 7021-8 #### [facility] IA [id number] [place] [address] [place] MCV (RBC) [Entitic vol] 82.2 fL Normal 80.0-100.0 [facility] Comment on above: Order Comment: Speci men Type: BLOOD SPECIMEN [facility] Address: [address] [place] [address] Performed By: #### 5 7021-8 #### [facility] CLIA [id number] [address] [place] [address] [place] Monocytes (Bld) [#/Vol] 0.53 10*3/uL Normal <0.87 [facility] Comment on above: Order Comment: Speci men Type: BLOOD SPECIMEN [facility] Address: [address] [place] [address] Performed By: #### 5 7021-8 #### [facility] CLIA [id number] [address] [place] [address] [place] Monocytes/100 WBC (Bld) 3.9 % Normal [facility] Comment on above: Order Comment: Speci men Type: BLOOD SPECIMEN [facility] Address: [address] [place] [address] Performed By: #### 5 7021-8 #### [facility] IA [id number] [address] [place] [address] [place] Neutrophils (Bld) [#/Vol] 11.88 10*3/uL High 1.45-7.50 [facility] Comment on above: Order Comment: Speci men Type: BLOOD SPECIMEN [facility] Address: [address] [place] [address] Performed By: #### 5 7021-8 #### [facility] IA [id number] [address] [place] [address] [place] Neutrophils/100 WBC (Bld) 87.7 % Normal [facility] Comment on above: Order Comment: Speci men Type: BLOOD SPECIMEN [facility] Address: [address] [place] [address] Performed By: #### 5 7021-8 #### [facility] IA [id number] [address] [facility] [place] [address] [place] Nucleated RBC (Bld) [#/Vol] 0.02 10*3/uL High <0.01 [facility] Comment on above: Order Comment: Speci men Type: BLOOD SPECIMEN [facility] Address: [address] [place] [address] Performed By: #### 5 7021-8 #### [facility] IA [id number] [address] [place] [address] [place] Nucleated RBC/100 WBC (Bld) [Ratio] 0.1 /100 WBC Normal [facility] Comment on above: Order Comment: Speci men Type: BLOOD SPECIMEN [facility] Address: [address] [place] [address] Performed By: #### 5 7021-8 #### [facility] IA [id number] [address] [place] [address] [place] Platelet mean volume (Bld) [Entitic vol] 9.2 fL Normal 9.0-12.7 [facility] Comment on above: Order Comment: Speci men Type: BLOOD SPECIMEN Order[facility] Address: [address] [place] [address] Performed By: #### 5 7021-8 #### [facility] CLIA [id number] [address] [place] [address] [place] Platelets (Bld) [#/Vol] 359 10*3/uL Normal 150-400 [facility] Comment on above: Order Comment: Speci men Type: BLOOD SPECIMEN [facility] Address: [address] [place] [address] Performed By: #### 5 7021-8 #### [facility] CLIA [id number] [place] [address] [place] RBC (Bld) [#/Vol] 6.39 10*6/uL High 4.20-6.00 [facility] Comment on above: Order Comment: Speci men Type: BLOOD SPECIMEN [facility] Address: [address] [place] [address] Performed By: #### 5 7021-8 #### [facility] CLIA [id number] [address] [place] [address] [place] WBC (Bld) [#/Vol] 13.55 10*3/uL High 3.70-11.00 [facility] Comment on above: Order Comment: Speci men Type: BLOOD SPECIMEN [facility] Address: [address], [place] [address] Performed By: #### 5 7021-8 #### [facility] CLIA [id number] [address] [facility] [place] [address] [facility] CNOVon 03-11-2025 CNOV Office Visit (PULMAV ) -- RICARDO HYLTON ([id number]) 1960 M Date Time Provider Department 03/11/25 1:45 PM LESLYE MCLEAN PULMAV During your visit today, we recorded the following information about you: Pulse Blood pressure Weight 113/minute 134/84 106.6 kg Leslye Mclean MD 03/18/2025 8:35 AM Signed Consultation requested by Dr. Gonzalez for an opinion regarding COPD and alpha 1 antitrypsin deficiency. My final recommendations will be communicated back to the requesting physician by way of shared Medical record or letter to requesting physician via US mail. Ricardo Hylton is a 64 year old male who presents for dyspnea and COPD He is accompanied by his . Recording using [employer] software for draft documentation of the visit was discussed with the patient/authorized liability claims representative; all questions welcomed and answered. Patient/authorized liability claims representative agreed to proceed HPI: Ricardo Hylton is a 64-year-old male with a history of COPD, respiratory failure, HTN, RANCHO, GERD, DM, and bipolar disorder, presenting for evaluation of worsening dyspnea and management of COPD. Ricardo reports a significant worsening of dyspnea over the past year, noting that he is unable to walk more than 15-20 feet without supplemental oxygen. He has been on continuous oxygen therapy for at least 10 years, currently using 3 L/min during the day and 2 L/min at night via CPAP. He also uses 3 L/min when ambulating. He was previously able to walk 45 minutes on a treadmill during pulmonary rehabilitation in 2020, but now struggles with short distances. Ricardo has a history of Alpha-1 antitrypsin deficiency and has been receiving infusions weekly for the past 6 months, after a previous interruption due to insurance issues. He is also on chronic prednisone 10 mg daily for the past 5 years, Trelegy inhaler, albuterol inhaler (used 5-6 times daily), and theophylline. He has a nebulizer but admits to not using it as frequently as prescribed. He denies use of DaliResp or Combivent, any other new COPD medications. No prior pulmonary rehab attendance reported. He was hospitalized in October for COVID-19, during which he received Remdesivir and steroids. Prior to this, he had not been hospitalized for COPD exacerbations for a significant period. Ricardo has a history of two cardiac catheterizations, the most recent being approximately 8 years ago. He also had an echocardiogram recently due to arrhythmias. He has a follow-up appointment with a trial justice at the [facility]. He was evaluated for a lung transplant in 2020 but was deemed ineligible due to being in too good shape and weight issues. His lowest weight was 212 lbs, but he has since gained weight and is currently 235 lbs. He is on Ozempic for weight management. He expresses interest in learning more about the [place] valve procedure, and shared her worries about lung transplant. He wants to hold off to lung txp evaluation at this time. Ricardo quit smoking 12-15 years ago after a 40-year history of smoking 2 packs per day. He used Chantix to aid in smoking cessation. He denies any known allergies or history of asthma. He has a dog at home and lives with his spouse. He has grown children from a previous marriage but no grandchildren. 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 DianDian REVIEW OF SYSTEMS GENERAL: No unintentional weight loss, Fatigue, or fever HEENT: Negative for frequent or significant headaches, No changes in hearing or vision, no nose bleeds or other nasal problems RESPIRATORY: dyspnea chronic. No cough/ congestion CARDIOVASCULAR: Negative for chest pain, leg swelling or palpitations. GASTROINTESTINAL: No nausea, vomiting, or diarrhea. MUSCULOSKELETAL: Negative for joint pain or swelling NEUROLOGIC: Negative for focal numbness or weakness All other systems were reviewed and Negative PAST MEDICAL HISTORY Diagnosis Date Vsekm-2-ntoaqdphszp deficiency (HCC) COPD (chronic obstructive pulmonary disease) (HCC) COVID-03 November 2024 - ADMITTED TO [facility] HTN (hypertension) RANCHO (obstructive sleep apnea) Respiratory failure (HCC) : History reviewed. No pertinent family history.: SOCIAL HISTORY[1] Allergies: ALLERGIES Allergen Reactions Metformin Intolerance diarrhea Current Medications: euyzp-3-npluegqeej inhibitor (Human) 1,000 mg in water for injection Inject 1,000 mg intravenously one time a week. pravastatin (PRAVACHOL) 40 mg tablet Take 1 tablet by mouth daily at bedtime. predniSONE (DELTASONE) 10 mg tablet Take 1 tablet by mouth once daily. guaiFENesin (MUCINEX) 600 mg 12 hr tablet Take 2 tablets by mouth twice daily. dilTIAZem CD (CARDIZEM CD) 240 mg 24 hr capsule Take 1 capsule by mouth once daily. ARIPiprazole (ABILIFY) 10 mg tablet Ta (more content not included)... Normal [facility] Comprehensive metabolic 2000 panelon 03-11-2025 Albumin [Mass/Vol] 4.7 g/dL 3.9 - 4.9 g/dL [facility] ALP [Catalytic activity/Vol] 115 U/L High 38 - 113 U/L [facility] ALT [Catalytic activity/Vol] 12 U/L 10 - 54 U/L [facility] Anion gap [Moles/Vol] 18 mmol/L High 8 - 15 mmol/L [facility] AST [Catalytic activity/Vol] 10 U/L Low 14 - 40 U/L [facility] Bilirubin [Mass/Vol] 0.4 mg/dL 0.2 - 1 .3 mg/dL [facility] Calcium [Mass/Vol] 9.9 mg/dL 8.5 - 10. 2 mg/dL [facility] Chloride [Moles/Vol] 100 mmol/L 98 - 10 7 mmol/L [facility] CO2 [Moles/Vol] 22 mmol/L 22 - 30 mmol/L [facility] Creatinine [Mass/Vol] 0.85 mg/dL 0.73 - 1.22 mg/dL [facility] GFR/1.73 sq M.predicted among non-blacks MDRD (S/P/Bld) [Vol rate/Area] 96 mL/min/{1.73_m2} - PINF [facility] Comment on above: Estimated Glomerular Filtration Rate (eGFR) is calculated using the 2020 CKD-EPI creatinine equation. This equation utilizes serum creatinine, sex, and age as parameters. The creatinine assay has traceable calibration to isotope dilution-mass spectrometry. Refer to KDIGO guidelines for clinical interpretation. In patients with unstable renal function, e.g. those with acute kidney injury, the eGFR may not accurately reflect actual GFR. Glucose [Mass/Vol] 156 mg/dL High 74 - 99 mg/dL [facility] Comment on above: The [place] Diabete s Association (ADA) provides guidance for cutoff values [...] Standards of Medical Care in Diabetes 2016, [place] Diabetes Association. Diabetes Care. 2016.39(Suppl 1). Interpretation and review of laboratory results Abnormal [facility] Potassium [Moles/Vol] 4.0 mmol/L 3.7 - 5.1 mmol/L [facility] Protein [Mass/Vol] 7.6 g/dL 6.3 - 8.0 g/dL [facility] Sodium [Moles/Vol] 140 mmol/L 136 - 144 mmol/L [facility] Urea nitrogen [Mass/Vol] 21 mg/dL 9 - 24 mg/dL [facility] Albumin [Mass/Vol] 4.7 g/dL Normal 3.9-4.9 [facility] Comment on above: Order Comment: Kike larry Type: BLOOD SPECIMEN [facility]ing Facility: [facility] Address: [address] [place] [address] [place] [address] Performed By: #### 2 4323-8 #### [facility] CLIA [id number] [address] [place] [address] [place] ALP [Catalytic activity/Vol] 115 U/L High 38-113 [facility] Comment on above: Order Comment: Speci men Type: BLOOD SPECIMEN Ordering Facility: [facility] Address: [address] [place] [address] Performed By: #### 2 4323-8 #### [facility] CLIA [id number] [address] [place] [address] [place] ALT [Catalytic activity/Vol] 12 U/L Normal 10-54 [facility] Comment on above: Order Comment: Speci men Type: BLOOD SPECIMEN [facility]ing Facility: [facility] Address: [address] [place] [address] Performed By: #### 2 4323-8 #### [facility] CLIA [id number] [address] [place] [address] [place] Anion gap [Moles/Vol] 18 mmol/L High 8-15 [facility] Comment on above: Order Comment: Speci men Type: BLOOD SPECIMEN [facility]ing Facility: [facility] Address: [address] [place] [address] Performed By: #### 2 4323-8 #### [facility] CLIA [id number] [address] [place] [address] [place] AST [Catalytic activity/Vol] 10 U/L Low 14-40 [facility] Comment on above: Order Comment: Speci men Type: BLOOD SPECIMEN [facility]ing Facility: [facility] Address: [address] [place] [address] Performed By: #### 2 4323-8 #### [facility] CLIA [id number] [address] [place] [address] [place] Bilirubin [Mass/Vol] 0.4 mg/dL Normal 0.2-1.3 [facility] Comment on above: Order Comment: Speci men Type: BLOOD SPECIMEN [facility]ing Facility: [facility] Address: [address] [place] [address] Performed By: #### 2 4323-8 #### [facility] CLIA [id number] [address] [place] [address] [place] Calcium [Mass/Vol] 9.9 mg/dL Normal 8.5-10.2 [facility] Comment on above: Order Comment: Speci men Type: BLOOD SPECIMEN [facility] Address: [address] [place] [address] Performed By: #### 2 4323-8 #### [facility] CLIA [id number] [place] [address] [place] Chloride [Moles/Vol] 100 mmol/L Normal 98-107 [facility] Comment on above: Order Comment: Speci men Type: BLOOD SPECIMEN [facility] Address: [address] [place] [address] Performed By: #### 2 4323-8 #### [facility] [place] [id number] [address] [place] [address] [place] CO2 [Moles/Vol] 22 mmol/L Normal 22-30 [facility] Comment on above: Order Comment: Speci men Type: BLOOD SPECIMEN [facility]ing [facility] Address: [address] [place] [address] Performed By: #### 2 4323-8 #### [facility] [place] [id number] [address] [place] [address] [place] Creatinine [Mass/Vol] 0.85 mg/dL Normal 0.73-1.22 [facility] Comment on above: Order Comment: Speci men Type: BLOOD SPECIMEN [facility] Address: [address] [place] [address] Performed By: #### 2 4323-8 #### [facility] IA [id number] [place], [place] [id number] [place] eGFRcr SerPlBld CKD-EPI 2020 96 mL/min/1.73m??? Normal >=60 [facility] Comment on above: Order Comment: Speci men Type: BLOOD SPECIMEN [facility]ing [facility] Address: [address] [place] [address] Result Comment: Alicia mated Glomerular Filtration Rate [...] GFR. Performed By: #### 2 4323-8 #### [facility] CLIA [id number] [address] [place] [address] [place] Glucose [Mass/Vol] 156 mg/dL High 74-99 [facility] Comment on above: Order Comment: Kike larry Type: BLOOD SPECIMEN [facility] Address: [address] [place] [address] Result Comment: The [place] Diabetes Association (ADA) provides guidance for cutoff [...] Standards of Medical Care in Diabetes 2016, [place] Diabetes Association. Diabetes Care. 2016.39(Suppl 1). Performed By: #### 2 4323-8 #### [facility] CLIA [id number] [address] [place] [address] [place] Potassium [Moles/Vol] 4.0 mmol/L Normal 3.7-5.1 [facility] Comment on above: Order Comment: Kike larry Type: BLOOD SPECIMEN [facility] Address: [address] [id number] Performed By: #### 2 4323-8 #### [facility] CLIA [id number] [address] [place] [address] [place] Protein [Mass/Vol] 7.6 g/dL Normal 6.3-8.0 [facility] Comment on above: Order Comment: Speci men Type: BLOOD SPECIMEN [facility] Address: [address] [place] [address] Performed By: #### 2 4323-8 #### [facility] CLIA [id number] [address] [place] [address] [place] Sodium [Moles/Vol] 140 mmol/L Normal 136-144 [facility] Comment on above: Order Comment: Speci men Type: BLOOD SPECIMEN [facility] Address: [address] [place] [address] Performed By: #### 2 4323-8 #### [facility] CLIA [id number] [address] [place] [address] [place] Urea nitrogen [Mass/Vol] 21 mg/dL Normal 9-24 [facility] Comment on above: Order Comment: Afsanehi men Type: BLOOD SPECIMEN [facility] Address: [address] [place] [address] Performed By: #### 2 4323-8 #### [facility] CLIA [id number] [address] [place] [address] [place] Eosinophils/100 WBC Auto (Bl d)Ordered By: Leslye Vinay on 03-11-2025 Eosinophils/100 WBC (Bld) 0.1 % [facility] Erythrocyte distribution wid th Auto (RBC) [Ratio]Ordered By: Leslye Vinay on 03-11-2025 Erythrocyte distribution width (RBC) [Ratio] 17.0 % High 11.5-15.0 [facility] Glomerular filtration rate [ Volume Rate/Area] in Serum, Plasma or Blood by CreatinineOrdered By: Leslye Vinay on 03-11-2025 Glomerular filtration rate [Volume Rate/Area] in Serum, Plasma or Blood by Creatinine 96 mL/min/1.73m??? >=60 [facility] Comment on above: Estimated Glomerular Filtration Rate (eGFR) is calculated using the 2020 CKD-EPI creatinine equation. This equation utilizes serum creatinine, sex, and age as parameters. The creatinine assay has traceable calibration to isotope dilution-mass spectrometry. Refer to KDIGO guidelines for clinical interpretation. In patients with unstable renal function, e.g. those with acute kidney injury, the eGFR may not accurately reflect actual GFR. Hematocrit Auto (Bld) [Volum e fraction]Ordered By: Leslye Mclean on 03-11-2025 Hematocrit (Bld) [Volume fraction] 52.5 % High 39.0-51.0 [facility] Hemoglobin [Mass/volume] in BloodOrdered By: Leslye Mclean on 03-11-2025 Hemoglobin (Bld) [Mass/Vol] 16.6 g/dL 13.0-17.0 [facility] LUNG DIFFUSION CAPACITY (TOMA O)on 03-11-2025 LUNG DIFFUSION CAPACITY (DLCO) [facility] [address] 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1960 Requested By: Order Number: [id number] Reading MD: Tory Mukherjee MD Interpretive Statements [...] 13:32:49 EDT by Tory Mukherjee MD ID: [id number] Name: RICARDO HYLTON Race: White Ht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ml/min/mmHg DLCO_PRED (ML/MIN/MMHG) : 25.83 ml/min/mmHg DLCO_LLN(ML/MIN/MMHG) : 19.17 ml/min/mmHg DLCO_ULN (ML/MIN/MMHG) : 33.72 ml/min/mmHg FET_PRE (S) : 17.14 S FET_POST (S) : 16.29 S VA (L) : 5.02 L VA_PRD (L) : 6.24 L DLCO/VA (ML/MIN/MMHG/L) : 0.04 ml/min/mmHg/L DLCO_VA_PRED (L) : 0.04 ml/min/mmHg/L DLCOCOR (ML/MIN/MMHG) : 17.37 ml/min/mmHg DLCOCOR_PRED (ML/MIN/MMHG) : 25.83 ml/min/mmHg DLCO/VACOR (ML/MIN/MMHG/L) : 0.03 ml/min/mmHg/L Normal [facility] LUNG VOLUMESon 03-11-2025 LUNG VOLUMES [facility] enter [address] 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 Patient has dyspnea, COPD and was tachypneic. 2 techs attempted. Best test reported despite difficult testing session. //JH IMPRESSION: Lung volumes (FRC and/or RV) are elevated indicating hyperinflation and air trapping. Electronically Signed On 03-12-2025 13:37:37 EDT by Tory Mukherjee MD ID: [id number] Name: RICARDO HYLTON Race: White Ht: 68.90 in Wt: 240.30 lbs Age: 64 Gender: Male : 1960 Dx: Chronic obstructive pulmonary disease, unspecified Smoking Hx: Non-smoker Doctor: LESLYE MCLEAN Test Date: 03/11/2025 Site: Tech: Radha Gabbie PRE-BRONCH POST-BRONCH [place] LLN Pred ULN %Pred [...] test reported despite difficult testing session. //JH VC BOX (L) : 3.76 L SVC_PRED [...] % RV_TLC_PLETH_PRED (%) : 33 % Normal [facility] - Chemistry and C hemistry - challengeOrdered By: Leslye Mclean on 03-11-2025 Albumin [Mass/Vol] 4.7 g/dL 3.9-4.9 [facility] ALP [Catalytic activity/Vol] 115 U/L High 38-113 [facility] ALT [Catalytic activity/Vol] 12 U/L 10-54 [facility] AST [Catalytic activity/Vol] 10 U/L Low 14-40 [facility] Bilirubin [Mass/Vol] 0.4 mg/dL 0.2-1.3 [facility] Calcium [Mass/Vol] 9.9 mg/dL 8.5-10.2 [facility] Chloride [Moles/Vol] 100 mmol/L 98-107 [facility] CO2 [Moles/Vol] 22 mmol/L 22-30 [facility] Creatinine [Mass/Vol] 0.85 mg/dL 0.73-1.22 [facility] Glucose [Mass/Vol] 156 mg/dL High 74-99 [facility] Comment on above: The [place] Diabete s Association (ADA) provides guidance for cutoff values for fasting glucose and random glucose. The ADA defines fasting as no caloric intake for at least 8 hours. Fasting plasma glucose results between 100 to 125 mg/dL indicate increased risk for diabetes (prediabetes).Fasting plasma glucose results greater than or equal to 126 mg/dL meet the criteria for diagnosis of diabetes. In the absence of unequivocal hyperglycemia, results should be confirmed by repeat testing. In a patient with classic symptoms of hyperglycemia or hyperglycemic crisis, random plasma glucose results greater than or equal to 200 mg/dL meet the criteria for diagnosis of diabetes.Reference: Standards of Medical Care in Diabetes 2016, [place] Diabetes Association. Diabetes Care. 2016.39(Suppl 1). Potassium [Moles/Vol] 4.0 mmol/L 3.7-5.1 [facility] Sodium [Moles/Vol] 140 mmol/L 136-144 [facility] Urea nitrogen [Mass/Vol] 21 mg/dL 9-24 [facility] - Hematology and Cell countsOrdered By: Leslye Vinay on 03-11-2025 Eosinophils (Bld) [#/Vol] 10*3/uL <0.46 [facility] Immature granulocytes (Bld) [#/Vol] 0.06 10*3/uL <0.10 [facility] Immature granulocytes/100 WBC (Bld) 0.4 % [facility] Leukocytes [#/volume] correc yamil for nucleated erythrocytes in Blood by Automated counOrdered By: Leslye Vinay on 03-11-2025 WBC corrected for nucl RBC Auto (Bld) [#/Vol] 13.55 k/uL High 3.70-11.00 [facility] Lymphocytes Auto (Bld) [#/Vo l]Ordered By: Leslye Vinay on 03-11-2025 Lymphocytes (Bld) [#/Vol] 1.01 10*3/uL 1.00-4.00 [facility] Lymphocytes/100 WBC Auto (Bl d)Ordered By: Leslye Vinay on 03-11-2025 Lymphocytes/100 WBC (Bld) 7.5 % [facility] MCH Auto (RBC) [Entitic mass ]Ordered By: Leslye Vinay on 03-11-2025 MCH (RBC) [Entitic mass] 26.0 pg 26.0-34.0 [facility] MCHC Auto (RBC) [Mass/Vol]Or dered By: Leslye Vinay on 03-11-2025 MCHC (RBC) [Mass/Vol] 31.6 g/dL 30.5-36.0 [facility] MCV Auto (RBC) [Entitic vol] Ordered By: Leslye Vinay on 03-11-2025 MCV (RBC) [Entitic vol] 82.2 fL 80.0-100.0 [facility] Monocytes Auto (Bld) [#/Vol] Ordered By: Leslye Vinay on 03-11-2025 Monocytes (Bld) [#/Vol] 0.53 10*3/uL <0.87 [facility] Monocytes/100 WBC Auto (Bld) Ordered By: Leslye Vinay on 03-11-2025 Monocytes/100 WBC (Bld) 3.9 % [facility] Neutrophils Auto (Bld) [#/Vo l]Ordered By: Leslye Vinay on 03-11-2025 Neutrophils (Bld) [#/Vol] 11.88 10*3/uL High 1.45-7.50 [facility] Neutrophils/100 WBC Auto (Bl d)Ordered By: Leslye Vinay on 03-11-2025 Neutrophils/100 WBC (Bld) 87.7 % [facility] No Panel InformationOrdered By: Leslye Vinay on 03-11-2025 Theophylline Level 30.0 ug/mL High 10.0-20.0 [facility] Comment on above: Reference ranges and high/low indicator flags are provided as general guidelines only. The treating physician must determine appropriate target levels/dosing based on the specific clinical situation. Nucleated RBC Auto (Bld) [#/ Vol]Ordered By: Leslye Vinay on 03-11-2025 Nucleated RBC (Bld) [#/Vol] 0.02 10*3/uL High <0.01 [facility] Nucleated erythrocytes [Pres ence] in Blood by Automated countOrdered By: Leslye Vinay on 03-11-2025 Nucleated RBC Auto Ql (Bld) 0.1 /100{WBC} [facility] Platelet mean volume Auto (B ld) [Entitic vol]Ordered By: Leslye Vinay on 03-11-2025 Platelet mean volume (Bld) [Entitic vol] 9.2 fL 9.0-12.7 [facility] Platelets Auto (Bld) [#/Vol] Ordered By: Leslye Vinay on 03-11-2025 Platelets (Bld) [#/Vol] 359 10*3/uL 150-400 [facility] Protein [Mass/volume] in Ser um or PlasmaOrdered By: Leslye Vinay on 03-11-2025 Protein [Mass/Vol] 7.6 g/dL 6.3-8.0 [facility] RBC Auto (Bld) [#/Vol]Ordere d By: Leslye Vinay on 03-11-2025 RBC (Bld) [#/Vol] 6.39 10*6/uL High 4.20-6.00 [facility] SPIROMETRY WITH DILATOR IF O BSTRUCTEDon 03-11-2025 SPIROMETRY WITH DILATOR IF OBSTRUCTED [facility] 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 //RK Normal [facility] Serum qzncw-0-pjmoppeacnn me asurementOrdered By: Leslye Mclean on 03-11-2025 Alpha 1 antitrypsin [Mass/Vol] 112 mg/dL 90-200 [facility] Serum or plasma anion gap de terminationOrdered By: Leslye Mclean on 03-11-2025 Anion gap [Moles/Vol] 18 mmol/L High 8-15 [facility] THEOPHYLLINE/AMINOPHYLLINEon 03-11-2025 Theophylline [Mass/Vol] 30.0 ug/mL High 10.0 - 20.0 ug/mL [facility] Comment on above: Reference ranges and high/low indicator flags are provided as general guidelines only. The treating physician must determine appropriate target levels/dosing based on the specific clinical situation. Theophylline SerPl-mCncon Theophylline [Mass/Vol] 30.0 ug/mL High 10.0-20.0 [facility] Comment on above: Order Comment: Kike larry Type: BLOOD SPECIMEN [facility] Address: [address] [place] [address] Result Comment: Refe rence ranges and high/low indicator flags are provided as general guidelines only. The treating physician must determine appropriate target levels/dosing based on the specific clinical situation. Performed By: #### 4 049-3 #### [facility] CLIA [id number] [address] [place] [address] [place] Theophylline [Mass/Vol]on Interpretation and review of laboratory results Abnormal [facility] BMPon 02-20-2025 Anion gap [Moles/Vol] 14 mmol/L Normal 6-16 [facility] Comment on above: Performed By: #### 2 [id number] #### [facility] [address] [place] [address] BUN/Creat Ratio 20 No Units Normal 10-20 [facility] Comment on above: Performed By: #### 2 [id number] #### [facility] [address] [place] [address] Calcium [Mass/Vol] 10.2 mg/dL Normal 8.9-11.1 [facility] Comment on above: Performed By: #### 2 [id number] #### [facility] [address] [place] [address] Chloride [Moles/Vol] 104 mmol/L Normal 101-111 [facility] Comment on above: Performed By: #### 2 [id number] #### [facility] [address] [place] [address] CO2 [Moles/Vol] 24 mmol/L Normal 21-31 [facility] Comment on above: Performed By: #### 2 [id number] #### [facility] [address] [place] [address] Creatinine [Mass/Vol] 1.0 mg/dL Normal 0.5-1.3 [facility] Comment on above: Performed By: #### 2 [id number] #### [facility] [address] [place] [address] Glucose [Mass/Vol] 151 mg/dL Normal 55-199 [facility] Comment on above: Performed By: #### 2 [id number] #### [facility] [address] [place] [address] Potassium [Moles/Vol] 4.4 mmol/L Normal 3.5-5.3 [facility] Comment on above: Performed By: #### 2 [id number] #### [facility] [address] [place] [address] Sodium [Moles/Vol] 138 mmol/L Normal 135-145 [facility] Comment on above: Performed By: #### 2 306060 #### [facility] [address] [place] [address] Urea nitrogen [Mass/Vol] 20 mg/dL Normal 5-21 [facility] Comment on above: Performed By: #### 2 [id number] #### [facility] [facility] [address] [place] [address] [id number] 02-20-2025 HbA1c (Bld) [Mass fraction] 7.3 % High <=5.9 [facility] Comment on above: Performed By: #### 7 [id number] #### [facility] [address] [place] [address] U MA/Cr Ratioon 02-20-2025 Microalb/Cr Ratio NOT CALCULATED Invalid Interpretation Code .0-30.0 [facility] Comment on above: Result Comment: 30-3 00 mg/g Cr indicates an increased risk for diabetic nephropathy. >300 mg/g Cr is consistent with clinical nephropathy. Performed By: #### 1 [id number] #### [facility] [address] [place] [address] U Creatinine 32.8 mg/dL Invalid Interpretation Code [facility] Comment on above: Performed By: #### 1 [id number] #### [facility] [address] [place] [address] U Microalb <0.7 Normal 0.0-1.9 [facility] Comment on above: Performed By: #### 1 [id number] #### [facility] [address] [place] [address] eGFRon 02-20-2025 eGFR 83 mL/min/1.73 m2 Normal >=59 [facility] Comment on above: Performed By: #### 1 [id number] #### [facility] [address] [place] [address] Ambulatory Visit Summaryon 0 02-19-2025 Ambulatory Visit Summary Ambulatory Visit Summary RICARDO HYLTON :1960 Visit Date:02/19/2025 Ambulatory Visit Instructions Your Diagnosis Type 2 diabetes mellitus with complication Emphysema/COPD Obesity (BMI 30-39.9) Obesity, Class II, BMI 35-39.9, no comorbidity Former smoker Your Care Team Attending Physician - SARAH TRIVEDI CNP Primary Care Physician - SARAH TRIVEDI CNP This Is Your Medications List [facility] Prescription (Glucose Kit) albuterol-ipratropium (Combivent Respimat 20 mcg-100 mcg) alpha 1-proteinase inhibitor (Prolastin-C) aripiprazole (aripiprazole 10 mg Tab) aripiprazole (aripiprazole 10 mg Tab) aspirin (aspirin 81 mg Oral EC Tab) cetirizine (cetirizine 10 mg Tab) cyclobenzaprine (cyclobenzaprine 5 mg Tab) dextromethorphan-guaifenes in (Mucinex DM 30 mg-600 mg Tab-ER) empagliflozin (Jardiance 25 mg oral tablet) fluticasone/umeclidinium/v ilanterol (Trelegy Ellipta 100 mcg-62.5 mcg-25 mcg inhalation [...] Follow-Up Appointments Tuesday 2:00 PM EDT With: Joo YIP MD Where: [facility] [address] [place] [address]- Tuesday 2:30 PM EST With: Where: [address] [address]- Tuesday 3:20 PM EST With: SARAH TRIVEDI CNP Where: [address] [address]- Medications What How Much When Why Instructions Unchanged albuterol-ipratropium (Combivent Respimat 20 mcg-100 mcg) 1 Puffs [...] By Mouth 2 times a day Unchanged dextromethorphan-guaifenes in (Mucinex DM 30 mg-600 mg Tab-ER) See [...] 1 Tablets By Mouth Every day Unchanged [facility] Prescription (Glucose Kit) See instructions Type 2 diabetes mellitus with complication Glucose meter. Include autolet, matching test strips, lancets, & alcohol wipes, #100 or as allowed by insurance; DX: E11.9 Unchanged omeprazole (omeprazole 20 mg Cap-DR) See instructions TAKE 1 CAPSULE BY MOUTH EVERY DAY Unchanged pravastatin (pravastatin 80 mg Tab) See instructions TAKE 1 TABLET BY MOUTH EVERYDAY AT BEDTIME Pickup at [facility]/pharmacy #[id number] Unchanged semaglutide (Ozempic 2 mg/ 3 [...] BY MOUTH TWICE A DAY Pharmacy Information [facility]/pharmacy #[id number]: [address], [place] [id number] [phone] (more content not included)... Normal [facility] Ambulatory Visit Summary Ambulatory Visit Summary RICARDO HYLTON :1960 Visit Date:02/19/2025 Ambulatory Visit Instructions Your Diagnosis Type 2 diabetes mellitus with complication Emphysema/COPD Obesity (BMI 30-39.9) Obesity, Class II, BMI 35-39.9, no comorbidity Former smoker Your Care Team Attending Physician - SARAH TRIVEDI CNP Primary Care Physician - SARAH TRIVEDI CNP This Is Your Medications List [facility] Prescription (Glucose Kit) albuterol-ipratropium (Combivent Respimat 20 mcg-100 mcg) alpha 1-proteinase inhibitor (Prolastin-C) aripiprazole (aripiprazole 10 mg Tab) aripiprazole (aripiprazole 10 mg Tab) aspirin (aspirin 81 mg Oral EC Tab) cetirizine (cetirizine 10 mg Tab) cyclobenzaprine (cyclobenzaprine 5 mg Tab) dextromethorphan-guaifenes in (Mucinex DM 30 mg-600 mg Tab-ER) empagliflozin (Jardiance 25 mg oral tablet) fluticasone/umeclidinium/v ilanterol (Trelegy Ellipta 100 mcg-62.5 mcg-25 mcg inhalation [...] GOSS, Joo Mendoza Where: [facility] [address] [place] [address]- Tuesday 2:30 PM EST With: Where: [address] [address]- Tuesday 3:20 PM EST With: SARAH TRIVEDI CNP Where: [address] [address]- Medications What How Much When Why Instructions Unchanged albuterol-ipratropium (Combivent Respimat 20 mcg-100 mcg) 1 Puffs [...] By Mouth 2 times a day Unchanged dextromethorphan-guaifenes in (Mucinex DM 30 mg-600 mg Tab-ER) See [...] 1 Tablets By Mouth Every day Unchanged [facility] Prescription (Glucose Kit) See instructions Type 2 diabetes mellitus with complication Glucose meter. Include autolet, matching test strips, lancets, & alcohol wipes, #100 or as allowed by insurance; DX: E11.9 Unchanged omeprazole (omeprazole 20 mg Cap-DR) See instructions TAKE 1 CAPSULE BY MOUTH EVERY DAY Unchanged pravastatin (pravastatin 80 mg Tab) See instructions TAKE 1 TABLET BY MOUTH EVERYDAY AT BEDTIME Pickup at [facility]/pharmacy #[id number] Unchanged semaglutide (Ozempic 2 mg/ 3 mL [...] DAY Pharmacy Information [id number]: [address], [place] [phone] (more content not included)... Normal [facility] Family Medicine Office/Clini c Noteon 02-19-2025 Family [...] Basic Metabolic Panel HgbA1c Lab Specimen Collect [address] Urine Microalbumin/Creatinine Ratio 2. Emphysema/COPD (J43.9: Emphysema, unspecified) - [...] scarlett, Topical, TID, 15 gram, Refill(s) 0, [facility]/pharmacy #[id number], 177, cm, 02/19/25 15:09:00 EDT, Height/Length Dosing, 109.7, kg, 02/19/25 15:09:00 EDT, Weight Dosing 6. Rhinitis (J31.0: Chronic rhinitis) Ordered: hydrOXYzine, 25 mg = 1 tab(s), Oral, QID, PRN for itching, # 40 tab(s), Refills(s) 0, Pharmacy: [facility]/pharmacy #[id number], 177, cm, 02/19/25 15:09:00 EDT, Height/Length Dosing, 109.7, kg, 02/19/25 15:09:00 EDT, Weight Dosing Orders: pravastatin, See Instructions, TAKE 1 TABLET BY MOUTH EVERYDAY AT BEDTIME, # 90 tab(s), Refills(s) 1, Pharmacy: [facility]/pharmacy #[id number], 177, cm, 02/19/25 15:09:00 EDT, Height/Length Dosing, 109.7, kg, 02/19/25 15:09:00 EDT, Weight Dosing Follow-up No qualifying data available Patient Education Skin Yeast Infection Problem List/Past Medical History Ongoing Anxiety BPH with obstruction/lower urinary tract symptoms Chronic hypoxic respiratory failure Emphysema/COPD Former smoker History of opioid abuse Hyperlipidemia 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 Normal [facility] Comment on above: Result Comment: Elec tronically Signed By: SARAH TRIVEDI CNP\.br\Date and Time Signed: 02/19/25 16:37 EDT 36on 02-11-2025 36 LM for patient abhijeet antony him know Dr. Devlin did not want to start him on anticoagulation at this time, and he would prefer he wait and discuss this with Dr. Cook at his upcoming apt on 03/05. Normal [facility] 36 Regarding new onset afib on [...] pay for gas to drive here from [place] until 02/15. I have nothing available again with anyone until with Dr. Cook. Can you start him on something to get him to that apt by chance? Thanks. Normal [facility] Office Visiton 01-24-2025 Follow-up visit [id number] Cadence Hylton Marek 1960 M Date Provider Department Center 01/24/2025 [id number], YONATHANAB CARD [facility] Family History Problem Relation Age of Onset Hypertension Mother Family Status - Relation Status Age at Mother Level of Service:98638 ME OFFICE/OUTPATIENT NEW MODERATE MDM 45 MINUTES [facility] Orders Onlyon 01-23-2025 Orders Only [id number] Cadence Hylton 1960 M Date Provider Department Center 01/23/2025 [id number], HISTORICAL CARD [facility] Family History Problem Relation Age of Onset Hypertension Mother Family Status - Relation Status Age at Mother [facility] Ambulatory Visit Summaryon 0 11-28-2024 Ambulatory [...] questions or concerns Misc Prescription (Glucose Kit) albuterol-ipratropium (Combivent Respimat 20 mcg-100 mcg) alpha 1-proteinase inhibitor (Prolastin-C) aripiprazole (aripiprazole 10 mg Tab) aripiprazole (aripiprazole 10 mg Tab) aspirin (aspirin 81 mg Oral EC Tab) cetirizine (cetirizine 10 mg Tab) cyclobenzaprine (cyclobenzaprine 5 mg Tab) dextromethorphan-guaifenes in (Mucinex DM 30 mg-600 mg Tab-ER) empagliflozin (Jardiance 25 mg oral tablet) fluticasone/umeclidinium/v ilanterol (Trelegy Ellipta 100 mcg-62.5 mcg-25 mcg inhalation [...] PM EDT With: SARAH TRIVEDI CNP Where: [address] [address]- Tuesday 1:00 PM EDT With: Where: [address] [address]- Tuesday 11:00 AM EDT With: Where: [facility] [place] [address] [place] [address]- Tuesday 11:15 AM EDT With: Joo YIP MD Where: [facility] [address] [place] [address]- You Need to Schedule the Following Appointments Follow Up with Joo YIP MD, URL When: Where: [facility] [address], [place] [address]- Medications What How Much When Why Instructions New doxycycline (doxycycline hyclate 100 mg Cap) 1 Capsules By Mouth 2 times a day Duration: 21 Days Pickup at [facility]/pharmacy #[id number] Unchanged albuterol-ipratropium (Combivent Respimat 20 mcg-100 mcg) 1 Puffs [...] prescribing physician if questions or concerns Unchanged dextromethorphan-guaifenes in (Mucinex DM 30 mg-600 mg Tab-ER) See [...] concerns U (more content not included)... Normal [facility] .Interpretation:on 5 HCV Ab IA Ql Comment Invalid Interpretation Code [facility] Comment on above: Result Comment: Not infected with HCV unless early or acute infection is suspected (which may be delayed in an immunocompromised individual), or other evidence exists to indicate HCV infection. Performed at: [facility] [address] [place], [place] [id number] PhD Antelmo Cornejo Performed By: #### 2 [id number] #### [facility] [address] [place] [address] HCV Antibody RFX to Quant PC Georges 10-28-2024 HCV Ab IA Ql Non-Reactive Invalid Interpretation Code Non Reactive [facility] Comment on above: Result Comment: Perf ormed at: [facility] [address] [place], [place] [id number] PhD Antelmo Cornejo Performed By: #### 2 [id number] #### [facility] [address] [place] [address] [id number] 10-26-2024 HbA1c (Bld) [Mass fraction] 7.9 % High <=5.9 [facility] Comment on above: Performed By: #### 7 [id number] #### [facility] [address] [place] [address] PSA Totalon 10-26-2024 Prostate specific Ag [Mass/Vol] 5.0 ng/mL High 0.1-3.5 [facility] Comment on above: Result Comment: The concentration of PSA determined by different manufacturers can vary due to differences in assay methods and reagent specificity. Values obtained from different assay methods cannot be used interchangeably. The methodology used for this result was chemiluminescence using [employer]'s Access Hybritech PSA reagent. Performed By: #### 1 [id number] #### [facility] [address] [place] [address] Family Medicine Office/Clini c Noteon 10-25-2024 Family Medicine Office/Clinic Note Family Medicine Office/Clinic Note Chief Complaint Difficulty breathing due to known lung disease; concern for blood glucose management. HPI Staff Ricardo is a 63 year old male presenting with [facility] Hospital: [facility] Admission date: 10/04/24 Discharge date: 10/05/24 Symptoms [...] 2 diabetes mellitus with unspecified complications) Ordered: [facility] Prescription, Glucose Kit, See Instructions, 1 EA, 0, Glucose meter. Include autolet, matching test strips, lancets, & alcohol wipes, #100 or as allowed by insurance; DX: E11.9, [facility]/pharmacy #[id number], Supply, 177, cm, 10/25/24 14:03:00 EDT, [...] qAM, # 90 tab(s), Refills(s) 1, Pharmacy: [facility]/pharmacy #[id number], 177, cm, 10/25/24 14:03:00 EDT, Height/Length Dosing, 109.4, kg, 10/25/24 14:03:00 EDT, Weight Dosing glipiZIDE, See Instructions, TAKE 1 TABLET BY MOUTH TWICE A DAY, # 60 tab(s), Refills(s) 5, Pharmacy: [facility]/pharmacy #[id number], 177, cm, 10/25/24 14:03:00 EDT, Height/Length Dosing, 109.4, kg, 10/25/24 14:03:00 EDT, Weight Dosing Follow-up With When Contact Information SARAH TRIVEDI CNP, FAM Within 3 months [address] [place] [address] [facility] (1) Additional Instructions: Diabetes Patient Education Diabetes Mellitus and Exercise Problem List/Past Medical History Ongoing Anxiety Chronic hypoxic respiratory failure Emphysema/COPD History of opioid abuse Hyperlipidemia 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 HPI Staff Ricardo is a 63 year old male presenting with [facility] Hospital: [facility] Admission date: 10/04/24 Discharge date: 10/05/24 Symptoms [...] exercise - f/u in 3 months Ordered: [facility] Prescription, Glucose Kit, See Instructions, 1 EA, 0, Glucose meter. Include autolet, matching test strips, lancets, & alcohol wipes, #100 or as allowed by insurance; DX: E11.9, [facility]/pharmacy #[id number], Supply, 177, cm, 10/25/24 14:03:00 EDT, [...] qAM, # 90 tab(s), Refills(s) 1, Pharmacy: [facility]/pharmacy #[id number], 177, cm, 10/25/24 14:03:00 EDT, Height/Length Dosing, 109.4, kg, 10/25/24 14:03:00 EDT, Weight Dosing glipiZIDE, See Instructions, TAKE 1 TABLET BY MOUTH TWICE A DAY, # 60 tab(s), Refills(s) 5, Pharmacy: [facility]/pharmacy #[id number], 177, cm, 10/25/24 14:03:00 EDT, Height/Length Dosing, 109.4, kg, 10/25/24 14:03:00 EDT, Weight Dosing Follow-up No qualifying data available Patient Education Diabetes Mellitus and Exercise Problem List/Past Medical History Ongoing Anxiety [employer]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 Normal [facility] Comment on above: Result Comment: Elec tronically Signed By: SARAH TRIVEDI CNP\.br\Date and Time Signed: 10/25/24 14:46 EDT Pre-Visit Planningon 025 Pre-Visit Planning Pre-Visit Planning From: Xochilt Mehta To: SARAH TRIVEDI CNP; Sent: 10/24/2024 15:13:30 EDT Subject: Pre-Visit Planning Due Date/Time: 10/24/2024 15:13:00 EDT Caller Name: RICARDO HYLTON; Caller Number: Jose , Stephen Mcnally. During a pre-visit planning chart [...] feel free to contact me at extension [phone]. Thank you! Xochilt Mehta LPN Clinical Back Strip Machine Operator [place] [address] Extension: [phone] [email or web address] From: SARAH TRIVEDI CNP To: Xochilt Mehta; Sent: 10/25/2024 15:41:25 EDT Subject: RE: Pre-Visit Planning Caller Name: RICARDO HYLTON; Caller Number: Jose , M Major depressive disorder, recurrent, in partial remission- Please update the chart to reflect this diagnosis Normal [facility] Pre-Visit Planningon 025 Pre-Visit Planning Pre-Visit Planning From: Xochilt Mehta To: SARAH TRIVEDI CNP; Sent: 10/10/2024 08:04:54 EDT Subject: Pre-Visit Planning Due Date/Time: 10/10/2024 08:04:00 EDT Caller Name: RICARDO HYLTON; Caller Number: Jsoe , M Good [facility] Sarah. During a pre-visit planning chart review, [...] feel free to contact me at extension [phone]. Thank you! Xochilt Mehta LPN Clinical Back Strip Machine Operator [place] [address] Extension: [phone] [email or web address] From: SARAH TRIVEDI CNP To: Xochilt Mehta; Sent: 10/11/2024 14:27:33 EDT Subject: RE: Pre-Visit Planning Caller Name: RICARDO HYLTON; Caller Number: Jose , M Patient was a no-show for his appointment today. Normal [facility] Provider Letteron 10-09-2024 Provider Letter Provider Letter October 09, 2024 RICARDO HYLTON [facility] [address] [address] RICARDO HYLTON 1960 Dear Ricardo Hylton, We have been trying to reach you with no success. It is important that you return our call regarding your hospital discharge upon receiving this letter. Also, at the time of your call, please provide us with your current information. Thank you for your prompt attention to this matter. Sincerely, Mary Silva, RN/Hand [facility] option 2 Normal [facility] Alanine aminotransferase [En zymatic activity/volume] in Serum or PlasmaOrdered By: Clifton Calderon on 10-05-2024 ALT [Catalytic activity/Vol] Alanine aminotransferase [Enzymatic activity/volume] in Serum or Plasma 7-52 [facility] Albumin [Mass/volume] in Ser um or Plasma by Bromocresol green (BCG) dye binding methoOrdered By: Clifton Calderon on 10-05-2024 Albumin BCG dye [Mass/Vol] Albumin [Mass/volume] in Serum or Plasma by Bromocresol green (BCG) dye binding metho 3.5-5.7 [facility] Alkaline phosphatase [Enzyma tic activity/volume] in Serum or PlasmaOrdered By: Clifton Calderon on 10-05-2024 ALP [Catalytic activity/Vol] Alkaline phosphatase [Enzymatic activity/volume] in Serum or Plasma 34-104 [facility] Aspartate aminotransferase [ Enzymatic activity/volume] in Serum or PlasmaOrdered By: Clifton Calderon on 10-05-2024 AST [Catalytic activity/Vol] Aspartate aminotransferase [Enzymatic activity/volume] in Serum or Plasma Low 13-39 [facility] Basophils Auto (Bld) [#/Vol] Ordered By: Clifton Beltread on 10-05-2024 Basophils (Bld) [#/Vol] Automated basophil count 0.0-0.2 [facility] Basophils/100 WBC Auto (Bld) Ordered By: Clifton Calderon on 10-05-2024 Basophils/100 WBC (Bld) Automated basophil % . [facility] Bilirubin.total [Mass/volume ] in Serum or PlasmaOrdered By: Clifton Calderon on 10-05-2024 Bilirubin [Mass/Vol] Bilirubin.total [Mass/volume] in Serum or Plasma 0.3-1.0 [facility] Calcium [Mass/volume] in Ser um or PlasmaOrdered By: Clifton Calderon on 10-05-2024 Calcium [Mass/Vol] Calcium [Mass/volume ] in Serum or Plasma 8.6-10.3 [facility] Carbon dioxide, total [Moles /volume] in Serum or PlasmaOrdered By: Clifton Calderon on 10-05-2024 CO2 [Moles/Vol] Carbon dioxide, tota l [Moles/volume] in Serum or Plasma 21.0-31.0 [facility] Chloride [Moles/volume] in S bee or PlasmaOrdered By: Clifton Calderon on 10-05-2024 Chloride [Moles/Vol] Chloride [Moles/vol ume] in Serum or Plasma 98-107 [facility] Complete Blood Count Auto Di ffon 10-05-2024 Basophils (Bld) [#/Vol] 0.1 10*3/uL Normal 0.0-0.2 The Count Includes [facility] Comment on above: Result Comment: PERF ORMED BY: [address] [place] [address] PATHOLOGIST BREAD SUPERVISOR NARESH VERA M.D. Performed By: #### C BC #### [facility] [address] [place] [address] [place] Basophils/100 WBC (Bld) 0.4 % Normal . The Count Includes [facility] Comment on above: Performed By: #### C BC #### [facility] [address] [place] [address] [place] Eosinophils (Bld) [#/Vol] 0.0 10*3/uL Normal 0.0-0.45 The Count Includes [facility] Comment on above: Performed By: #### C BC #### [place] [address] [place] Eosinophils/100 WBC (Bld) 0.1 % Normal . The Count Includes [facility] Comment on above: Performed By: #### C BC #### [address] Erythrocyte distribution width (RBC) [Ratio] 24.7 % High 12.0-14.8 The Count Includes [facility] Comment on above: Performed By: #### C BC #### [address] Hematocrit (Bld) [Volume fraction] 44.8 % Normal 38.8-50.0 The Count Includes [facility] Comment on above: Performed By: #### C BC #### [address] Hemoglobin (Bld) [Mass/Vol] 14.7 g/dL Normal 13.0-17.0 The Count Includes [facility] Comment on above: Performed By: #### C BC #### [address] Lymphocytes (Bld) [#/Vol] 1.3 10*3/uL Normal 1.00-4.8 The Count Includes [facility] Comment on above: Performed By: #### C BC #### [place] [address] [place] Lymphocytes/100 WBC (Bld) 9.3 % Normal . The Count Includes [facility] Comment on above: Performed By: #### C BC #### [address] MCH (RBC) [Entitic mass] 24.7 pg Low 27.5-35.2 The Count Includes [facility] Comment on above: Performed By: #### C BC #### [address] MCV (RBC) [Entitic vol] 75.2 fL Low 83.5-101 The Count Includes [facility] Comment on above: Performed By: #### C BC #### [address] Mean Corpuscular HGB Conc 32.9 g/dL Normal 32.5-35.6 The Count Includes [facility] Comment on above: Performed By: #### C BC #### [address] Monocytes (Bld) [#/Vol] 1.3 10*3/uL High 0.0-0.8 The Count Includes [facility] Comment on above: Performed By: #### C BC #### [address] Monocytes/100 WBC (Bld) 9.1 % Normal . The Count Includes [facility] Comment on above: Performed By: #### C BC #### [address] Neutrophils (Bld) [#/Vol] 11.5 10*3/uL High 1.8-7.7 The Count Includes [facility] Comment on above: Performed By: #### C BC #### [address] Neutrophils/100 WBC (Bld) 81.1 % Normal . The Count Includes [facility] Comment on above: Performed By: #### C BC #### [address] NRBC% 0.0 /100{WBC} Normal 0-0.5 The Count Includes [facility] Comment on above: Performed By: #### C BC #### [address] Platelet mean volume (Bld) [Entitic vol] 8.6 fL Normal 6.6-10.1 The Count Includes [facility] Comment on above: Performed By: #### C BC #### [address] Platelets (Bld) [#/Vol] 350 10*3/uL Normal 150-450 The Count Includes [facility] Comment on above: Performed By: #### C BC #### [address] RBC (Bld) [#/Vol] 5.95 10*6/uL High 3.90-5.60 The Count Includes [facility] Comment on above: Performed By: #### C BC #### [address] WBC (Bld) [#/Vol] 14.2 10*3/uL High 4.1-10.5 The Count Includes [facility] Comment on above: Performed By: #### C BC #### [address] Comprehensive Metabolic Pane serene 10-05-2024 Albumin [Mass/Vol] 4.0 g/dL Normal 3.5-5.7 The Count Includes [facility] Comment on above: Performed By: #### C BC, CMP, MG #### [address] Albumin/Globulin [Mass ratio] 1.4 {ratio} Normal The Count Includes [facility] Comment on above: Performed By: #### C BC, CMP, MG #### [address] ALP [Catalytic activity/Vol] 83 U/L Normal 34-104 The Count Includes [facility] Comment on above: Performed By: #### C BC, CMP, MG #### [address] ALT [Catalytic activity/Vol] 10 U/L Normal 7-52 The Count Includes [facility] Comment on above: Performed By: #### C BC, CMP, MG #### [address] Anion gap [Moles/Vol] 15.2 mmol/L High 6.0-15.0 Th e Count Includes [facility] Comment on above: Performed By: #### C BC, CMP, MG #### [address] AST [Catalytic activity/Vol] 9 U/L Low 13-39 The Count Includes [facility] Comment on above: Performed By: #### C BC, CMP, MG #### [address] Bilirubin [Mass/Vol] 0.3 mg/dL Normal 0.3-1.0 The Count Includes [facility] Comment on above: Performed By: #### C BC, CMP, MG #### [address] Calcium [Mass/Vol] 9.0 mg/dL Normal 8.6-10.3 The Count Includes [facility] Comment on above: Performed By: #### C BC, CMP, MG #### [address] Chloride [Moles/Vol] 100 mmol/L Normal 98-107 The Count Includes [facility] Comment on above: Performed By: #### C BC, CMP, MG #### [address] CO2 [Moles/Vol] 28.2 mmol/L Normal 21.0-31.0 The Count Includes [facility] Comment on above: Performed By: #### C BC, CMP, MG #### [address] Creatinine [Mass/Vol] 1.18 mg/dL Normal 0.70-1.30 The Count Includes [facility] Comment on above: Performed By: #### C BC, CMP, MG #### [address] Creatinine Clr Calc Pharmacy 76.09 Normal The Count Includes [facility] Comment on above: Result Comment: PERF ORMED BY: [place] [address] PATHOLOGIST BREAD SUPERVISOR NARESH VERA M.D. Performed By: #### C BC, CMP, MG #### [address] GFR/1.73 sq M.predicted MDRD (S/P/Bld) [Vol rate/Area] mL/min/{1.73_m2} Normal The Count Includes [facility] Comment on above: Performed By: #### C BC, CMP, MG #### [place] [address] [place] Globulin (S) [Mass/Vol] 2.8 g/dL Normal The Count Includes [facility] Comment on above: Performed By: #### C BC, CMP, MG #### [address] Glucose [Mass/Vol] 157 mg/dL High 70-100 The Count Includes [facility] Comment on above: Result Comment: [facility] Glucose Reference Range is dependent on time and content of last meal. Glucose of more than 200 mg/dL in a nonstressed, ambulatory subject supports the diagnosis of Diabetes Mellitus. ADA recommended reference range Performed By: #### C BC, CMP, MG #### [facility] [address] Potassium [Moles/Vol] 4.4 mmol/L Normal 3.5-5.1 The Count Includes [facility] Comment on above: Performed By: #### C BC, CMP, MG #### [facility] [address] Protein [Mass/Vol] 6.8 g/dL Normal 6.4-8.9 The Count Includes [facility] Comment on above: Performed By: #### C BC, CMP, MG #### [facility] [address] Sodium [Moles/Vol] 139 mmol/L Normal 136-145 The Count Includes [facility] Comment on above: Performed By: #### C BC, CMP, MG #### [facility] [address] [place] [address] [place] Urea nitrogen [Mass/Vol] 31 mg/dL High 7-25 The Count Includes [facility] Comment on above: Performed By: #### C BC, CMP, MG #### [facility] [address] [place] [address] [place] Creatinine [Mass/volume] in Serum or PlasmaOrdered By: Clifton Calderon on 10-05-2024 Creatinine [Mass/Vol] Creatinine [Mass/v olume] in Serum or Plasma 0.70-1.30 [facility] Eosinophils Auto (Bld) [#/Vo l]Ordered By: Clifton Beltread on 10-05-2024 Eosinophils (Bld) [#/Vol] Automated eosinophil count 0.0-0.45 [facility] Eosinophils/100 WBC Auto (Bl d)Ordered By: Clifton Calderon on 10-05-2024 Eosinophils/100 WBC (Bld) Automated eosinophil % . [facility] Erythrocyte distribution wid th Auto (RBC) [Ratio]Ordered By: Clifton Calderon on 10-05-2024 Erythrocyte distribution width (RBC) [Ratio] Erythrocyte distribution width [Ratio] by Automated count High 12.0-14.8 [facility] Globulin Calc (S) [Mass/Vol] Ordered By: Clifton Calderon on 10-05-2024 Globulin (S) [Mass/Vol] Serum globulin measurement by calculation (mass/volume) [facility] Glucose Glucometer (BldC) [M ass/Vol]Ordered By: Eden Greenwood on 10-05-2024 Glucose [Mass/Vol] Capillary blood gluc ose measurement by glucometer (mass/volume) [facility] Comment on above: Random Glucose Refer ence Range is dependent on time and content of last meal. Glucose of more than 200 mg/dL in a nonstressed, ambulatory subject supports the diagnosis of Diabetes Mellitus. Glucose Poct Glucometerson 0 10-05-2024 Glucose [Mass/Vol] 321 mg/dL Normal The Count Includes [facility] Comment on above: Result Comment: [facility] Glucose Reference Range is dependent on time and content of last meal. Glucose of more than 200 mg/dL in a nonstressed, ambulatory subject supports the diagnosis of Diabetes Mellitus. PERFORMED BY: [facility] [address] [place] [address] PATHOLOGIST BREAD SUPERVISOR NARESH VERA M.D. Performed By: #### G LULS #### Point of Care testing , Glucose [Mass/Vol] 178 mg/dL Normal The Count Includes [facility] Comment on above: Result Comment: [facility] Glucose Reference Range is dependent on time and content of last meal. Glucose of more than 200 mg/dL in a nonstressed, ambulatory subject supports the diagnosis of Diabetes Mellitus. PERFORMED BY: [facility] [address] [place] [address] PATHOLOGIST BREAD SUPERVISOR NARESH VERA M.D. Performed By: #### G LULS #### Point of Care testing , Glucose [Mass/volume] in Ser um or PlasmaOrdered By: Clifton Calderon on 10-05-2024 Glucose [Mass/Vol] Glucose [Mass/volume ] in Serum or Plasma High 70-100 [facility] Comment on above: ADA recommended refe rence rangeRandom Glucose Reference Range is dependent on time and content of last meal. Glucose of more than 200 mg/dL in a nonstressed, ambulatory subject supports the diagnosis of Diabetes Mellitus. Hematocrit Auto (Bld) [Volum e fraction]Ordered By: Clifton Calderon on 10-05-2024 Hematocrit (Bld) [Volume fraction] Hematocrit [Volume Fraction] of Blood by Automated count 38.8-50.0 [facility] Hemoglobin [Mass/volume] in BloodOrdered By: Clifton Calderon on 10-05-2024 Hemoglobin (Bld) [Mass/Vol] Hemoglobin [Mass/volume] in Blood 13.0-17.0 [facility] Leukocytes [#/volume] correc yamil for nucleated erythrocytes in Blood by Automated counOrdered By: Clifton Calderon on 10-05-2024 WBC corrected for nucl RBC Auto (Bld) [#/Vol] Leukocytes [#/volume] corrected for nucleated erythrocytes in Blood by Automated coun High 4.1-10.5 [facility] Lymphocytes Auto (Bld) [#/Vo l]Ordered By: Clifton Calderon on 10-05-2024 Lymphocytes (Bld) [#/Vol] Lymphocytes [#/volume] in Blood by Automated count 1.00-4.8 [facility] Lymphocytes/100 WBC Auto (Bl d)Ordered By: Clifton Calderon on 10-05-2024 Lymphocytes/100 WBC (Bld) Lymphocytes/100 leukocytes in Blood by Automated count . [facility] MCH Auto (RBC) [Entitic mass ]Ordered By: Clifton Calderon on 10-05-2024 MCH (RBC) [Entitic mass] MCH [Entitic mass] by Automated count Low 27.5-35.2 [facility] MCHC Auto (RBC) [Mass/Vol]Or dered By: Clifton Calderon on 10-05-2024 MCHC (RBC) [Mass/Vol] MCHC [Mass/volume] by Automated count 32.5-35.6 [facility] MCV Auto (RBC) [Entitic vol] Ordered By: Clifton Calderon on 10-05-2024 MCV (RBC) [Entitic vol] MCV [Entitic volume] by Automated count Low 83.5-101 [facility] Monocytes Auto (Bld) [#/Vol] Ordered By: Clifton Calderon on 10-05-2024 Monocytes (Bld) [#/Vol] Automated blood monocyte count High 0.0-0.8 [facility] Monocytes/100 WBC Auto (Bld) Ordered By: Clifton Calderon on 10-05-2024 Monocytes/100 WBC (Bld) Automated monocyte % . [facility] Neutrophils Auto (Bld) [#/Vo l]Ordered By: Clifton Calderon on 10-05-2024 Neutrophils (Bld) [#/Vol] Neutrophils [#/volume] in Blood by Automated count High 1.8-7.7 [facility] Neutrophils/100 WBC Auto (Bl d)Ordered By: Clifton Calderon on 10-05-2024 Neutrophils/100 WBC (Bld) Automated neutrophil % . [facility] No Panel InformationOrdered By: Clifton Calderon on 10-05-2024 Estimated GFR (CKD-EPI) > 60.0 mL/Min [facility] Creatinine Clearance (Chem 76.09 [facility] Nucleated erythrocytes [Pres ence] in Blood by Automated countOrdered By: Clifton Calderon on 10-05-2024 Nucleated RBC Auto Ql (Bld) Nucleated erythrocytes [Presence] in Blood by Automated count 0-0.5 [facility] Platelet mean volume Auto (B ld) [Entitic vol]Ordered By: Clifton Calderon on 10-05-2024 Platelet mean volume (Bld) [Entitic vol] Platelet mean volume [Entitic volume] in Blood by Automated count 6.6-10.1 [facility] Platelets Auto (Bld) [#/Vol] Ordered By: Clifton Calderon on 10-05-2024 Platelets (Bld) [#/Vol] Platelets [#/volume] in Blood by Automated count 150-450 [facility] Potassium [Moles/volume] in Serum or PlasmaOrdered By: Clifton Calderon on 10-05-2024 Potassium [Moles/Vol] Potassium [Moles/v olume] in Serum or Plasma 3.5-5.1 [facility] Protein [Mass/volume] in Ser um or PlasmaOrdered By: Clifton Calderon on 10-05-2024 Protein [Mass/Vol] Protein [Mass/volume ] in Serum or Plasma 6.4-8.9 [facility] RBC Auto (Bld) [#/Vol]Ordere d By: Clifton Calderon on 10-05-2024 RBC (Bld) [#/Vol] Erythrocytes [#/volu me] in Blood by Automated count High 3.90-5.60 [facility] Serum or plasma albumin/glob ulin mass ratioOrdered By: Clifton Calderon on 10-05-2024 Albumin/Globulin [Mass ratio] Serum or plasma albumin/globulin mass ratio [facility] Serum or plasma anion gap de terminationOrdered By: Clifton Calderon on 10-05-2024 Anion gap [Moles/Vol] Serum or plasma an ion gap determination High 6.0-15.0 [facility] Sodium [Moles/volume] in Ser um or PlasmaOrdered By: Clifton Calderon on 10-05-2024 Sodium [Moles/Vol] Sodium [Moles/volume ] in Serum or Plasma 136-145 [facility] Urea nitrogen [Mass/volume] in Serum or PlasmaOrdered By: Clifton Calderon on 10-05-2024 Urea nitrogen [Mass/Vol] Urea nitrogen [Mass/volume] in Serum or Plasma High 7-25 [facility] WBC Auto (Bld) [#/Vol]Ordere d By: Clifton Beltread on 10-05-2024 WBC (Bld) [#/Vol] Leukocytes [#/volume ] in Blood by Automated count High 4.1-10.5 [facility] Alanine aminotransferase [En zymatic activity/volume] in Serum or PlasmaOrdered By: Pranay Bai on 10-04-2024 ALT [Catalytic activity/Vol] Alanine aminotransferase [Enzymatic activity/volume] in Serum or Plasma 7-52 [facility] Albumin [Mass/volume] in Ser um or Plasma by Bromocresol green (BCG) dye binding methoOrdered By: Pranay Bai on 10-04-2024 Albumin BCG dye [Mass/Vol] Albumin [Mass/volume] in Serum or Plasma by Bromocresol green (BCG) dye binding metho 3.5-5.7 [facility] Alkaline phosphatase [Enzyma tic activity/volume] in Serum or PlasmaOrdered By: Pranay Bai on 10-04-2024 ALP [Catalytic activity/Vol] Alkaline phosphatase [Enzymatic activity/volume] in Serum or Plasma High 34-104 [facility] Anisocytosis LM Ql (Bld)Orde red By: Pranay Bai on 10-04-2024 Anisocytosis Ql (Bld) Anisocytosis [Pres ence] in Blood by Light microscopy [facility] Aspartate aminotransferase [ Enzymatic activity/volume] in Serum or PlasmaOrdered By: Pranay Bai on 10-04-2024 AST [Catalytic activity/Vol] Aspartate aminotransferase [Enzymatic activity/volume] in Serum or Plasma 13-39 [facility] B-Type Natriuretic Peptideon 10-04-2024 Natriuretic peptide B (Bld) [Mass/Vol] 32.0 pg/mL Normal 5-100 The Count Includes [facility] Comment on above: Result Comment: PERF ORMED BY: [address] [place] [address] PATHOLOGIST BREAD SUPERVISOR NARESH VERA M.D. Performed By: #### C BC, CMP, MG #### [address] Basophils Auto (Bld) [#/Vol] Ordered By: Pranay Bai on 10-04-2024 Basophils (Bld) [#/Vol] Automated basophil count 0.0-0.2 [facility] Basophils/100 WBC Auto (Bld) Ordered By: Pranay Bai on 10-04-2024 Basophils/100 WBC (Bld) Automated basophil % . [facility] Bilirubin.total [Mass/volume ] in Serum or PlasmaOrdered By: Pranay Bai on 10-04-2024 Bilirubin [Mass/Vol] Bilirubin.total [Mass/volume] in Serum or Plasma 0.3-1.0 [facility] BioFire Detectedon BioFire Detected Detected Critically abnormal Not Detecte The Count Includes [facility] Comment on above: Result Comment: This is a duplicate RP2.1 COVID (PCR) result to be used for statistical tracking purpose only. PERFORMED BY: [facility] [address] [place] [address] PATHOLOGIST BREAD SUPERVISOR NARESH VERA M.D. Performed By: #### B CALISTA, RESP PANEL UPP. #### [place] [address] [place] COVID-19 Detected/Not Detect edOrdered By: Clifton Calderon on 10-04-2024 SARS-CoV-2 (COVID-19) RNA YOLANDA+non-probe Ql (Nph) Not detected Abnormal Not Detecte [facility] Comment on above: This is a duplicate RP2.1 COVID (PCR) result to be used for statistical tracking purpose only. Calcium [Mass/volume] in Ser um or PlasmaOrdered By: Pranay Bai on 10-04-2024 Calcium [Mass/Vol] Calcium [Mass/volume ] in Serum or Plasma 8.6-10.3 [facility] Carbon dioxide, total [Moles /volume] in Serum or PlasmaOrdered By: Pranay Bai on 10-04-2024 CO2 [Moles/Vol] Carbon dioxide, tota l [Moles/volume] in Serum or Plasma 21.0-31.0 [facility] Chloride [Moles/volume] in S bee or PlasmaOrdered By: Pranay Bai on 10-04-2024 Chloride [Moles/Vol] Chloride [Moles/vol ume] in Serum or Plasma 98-107 [facility] Complete Blood Count Auto Di ffon 10-04-2024 Basophils (Bld) [#/Vol] 0.0 10*3/uL Normal 0.0-0.2 The Count Includes [facility] Comment on above: Result Comment: PERF ORMED BY: [facility] [address] [place] [address] PATHOLOGIST BREAD SUPERVISOR NARESH VERA M.D. Performed By: #### C BC, CMP, MG #### [address] Basophils/100 WBC (Bld) 0.5 % Normal . The Count Includes [facility] Comment on above: Performed By: #### C BC, CMP, MG #### [place] [address] Eosinophils (Bld) [#/Vol] 0.0 10*3/uL Normal 0.0-0.45 The Count Includes [facility] Comment on above: Performed By: #### C BC, CMP, MG #### [address] Eosinophils/100 WBC (Bld) 0.2 % Normal . The Count Includes [facility] Comment on above: Performed By: #### C BC, CMP, MG #### [address] Erythrocyte distribution width (RBC) [Ratio] 24.9 % High 12.0-14.8 The Count Includes [facility] Comment on above: Performed By: #### C BC, CMP, MG #### [address] Hematocrit (Bld) [Volume fraction] 48.8 % Normal 38.8-50.0 The Count Includes [facility] Comment on above: Performed By: #### C BC, CMP, MG #### [address] Hemoglobin (Bld) [Mass/Vol] 16.0 g/dL Normal 13.0-17.0 The Count Includes [facility] Comment on above: Performed By: #### C BC, CMP, MG #### [address] Lymphocytes (Bld) [#/Vol] 0.6 10*3/uL Low 1.00-4.8 The Count Includes [facility] Comment on above: Performed By: #### C BC, CMP, MG #### [address] Lymphocytes/100 WBC (Bld) 7.2 % Normal . The Count Includes [facility] Comment on above: Performed By: #### C BC, CMP, MG #### [address] MCH (RBC) [Entitic mass] 25.0 pg Low 27.5-35.2 The Count Includes [facility] Comment on above: Performed By: #### C BC, CMP, MG #### [address] MCV (RBC) [Entitic vol] 76.3 fL Low 83.5-101 The Count Includes [facility] Comment on above: Performed By: #### C BC, CMP, MG #### [address] Mean Corpuscular HGB Conc 32.8 g/dL Normal 32.5-35.6 The Count Includes [facility] Comment on above: Performed By: #### C BC, CMP, MG #### [facility] [address] Monocytes (Bld) [#/Vol] 0.3 10*3/uL Normal 0.0-0.8 The Count Includes [facility] Comment on above: Performed By: #### C BC, CMP, MG #### [address] Monocytes/100 WBC (Bld) 3.4 % Normal . The Count Includes [facility] Comment on above: Performed By: #### C BC, CMP, MG #### [place] [address] [place] Neutrophils (Bld) [#/Vol] 7.3 10*3/uL Normal 1.8-7.7 The Count Includes [facility] Comment on above: Performed By: #### C BC, CMP, MG #### [place] [address] [place] Neutrophils/100 WBC (Bld) 88.7 % Normal . The Count Includes [facility] Comment on above: Performed By: #### C BC, CMP, MG #### [address] NRBC% 0.2 /100{WBC} Normal 0-0.5 The Count Includes [facility] Comment on above: Performed By: #### C BC, CMP, MG #### [address] Platelet mean volume (Bld) [Entitic vol] 8.2 fL Normal 6.6-10.1 The Count Includes [facility] Comment on above: Performed By: #### C BC, CMP, MG #### [address] Platelets (Bld) [#/Vol] 272 10*3/uL Normal 150-450 The Count Includes [facility] Comment on above: Performed By: #### C BC, CMP, MG #### [address] RBC (Bld) [#/Vol] 6.39 10*6/uL High 3.90-5.60 The Count Includes [facility] Comment on above: Performed By: #### C BC, CMP, MG #### [address] WBC (Bld) [#/Vol] 8.2 10*3/uL Normal 4.1-10.5 The Count Includes [facility] Comment on above: Performed By: #### C BC, CMP, MG #### [address] Comprehensive Metabolic Pane serene 10-04-2024 Albumin [Mass/Vol] 4.3 g/dL Normal 3.5-5.7 The Count Includes [facility] Comment on above: Performed By: #### C BC, CMP, MG #### [address] Albumin/Globulin [Mass ratio] 1.5 {ratio} Normal The Count Includes [facility] Comment on above: Performed By: #### C BC, CMP, MG #### [address] ALP [Catalytic activity/Vol] 97 U/L Normal 34-104 The Count Includes [facility] Comment on above: Performed By: #### C BC, CMP, MG #### [address] ALT [Catalytic activity/Vol] 12 U/L Normal 7-52 The Count Includes [facility] Comment on above: Performed By: #### C BC, CMP, MG #### [address] Anion gap [Moles/Vol] 19.3 mmol/L High 6.0-15.0 Th e Count Includes [facility] Comment on above: Performed By: #### C BC, CMP, MG #### [facility] [address] [place] [address] [place] AST [Catalytic activity/Vol] 12 U/L Low 13-39 The Count Includes [facility] Comment on above: Performed By: #### C BC, CMP, MG #### [facility] [address] [place] [id number] [place] Bilirubin [Mass/Vol] 0.4 mg/dL Normal 0.3-1.0 The Count Includes [facility] Comment on above: Performed By: #### C BC, CMP, MG #### [facility] [address] [place] [address] [place] Calcium [Mass/Vol] 8.8 mg/dL Normal 8.6-10.3 The Count Includes [facility] Comment on above: Performed By: #### C BC, CMP, MG #### [facility] [address] [place] [address] [place] Chloride [Moles/Vol] 102 mmol/L Normal 98-107 The Count Includes [facility] Comment on above: Performed By: #### C BC, CMP, MG #### [facility] [address] [place] [address] [place] CO2 [Moles/Vol] 22.4 mmol/L Normal 21.0-31.0 The Count Includes [facility] Comment on above: Performed By: #### C BC, CMP, MG #### [facility] [address] [place] [address] [place] Creatinine [Mass/Vol] 1.10 mg/dL Normal 0.70-1.30 The Count Includes [facility] Comment on above: Performed By: #### C BC, CMP, MG #### [facility] [address] [place] [id number] [place] Creatinine Clr Calc Pharmacy 82.74 Normal The Count Includes [facility] Comment on above: Performed By: #### C BC, CMP, MG #### [facility] [address] [place] [address] [place] GFR/1.73 sq M.predicted MDRD (S/P/Bld) [Vol rate/Area] mL/min/{1.73_m2} Normal The Count Includes [facility] Comment on above: Performed By: #### C BC, CMP, MG #### [facility] [address] Globulin (S) [Mass/Vol] 2.9 g/dL Normal The Count Includes [facility] Comment on above: Performed By: #### C BC, CMP, MG #### [address] Glucose [Mass/Vol] 183 mg/dL High 70-100 The Count Includes [facility] Comment on above: Result Comment: [facility] Glucose Reference Range is dependent on time and content of last meal. Glucose of more than 200 mg/dL in a nonstressed, ambulatory subject supports the diagnosis of Diabetes Mellitus. ADA recommended reference range Performed By: #### C BC, CMP, MG #### [address] Potassium [Moles/Vol] 4.7 mmol/L Normal 3.5-5.1 The Count Includes [facility] Comment on above: Performed By: #### C BC, CMP, MG #### [address] Protein [Mass/Vol] 7.2 g/dL Normal 6.4-8.9 The Count Includes [facility] Comment on above: Performed By: #### C BC, CMP, MG #### [address] Sodium [Moles/Vol] 139 mmol/L Normal 136-145 The Count Includes [facility] Comment on above: Performed By: #### C BC, CMP, MG #### [place] [address] [place] Urea nitrogen [Mass/Vol] 18 mg/dL Normal 7-25 The Count Includes [facility] Comment on above: Performed By: #### C BC, CMP, MG #### [address] Albumin [Mass/Vol] 4.7 g/dL Normal 3.5-5.7 The Count Includes [facility] Comment on above: Performed By: #### C BC, CMP, MG #### [address] [place] [address] [place] Albumin/Globulin [Mass ratio] 1.3 {ratio} Normal The Count Includes [facility] Comment on above: Performed By: #### C BC, CMP, MG #### [address] ALP [Catalytic activity/Vol] 112 U/L High 34-104 The Count Includes [facility] Comment on above: Performed By: #### C BC, CMP, MG #### [address] ALT [Catalytic activity/Vol] 14 U/L Normal 7-52 The Count Includes [facility] Comment on above: Performed By: #### C BC, CMP, MG #### [address] Anion gap [Moles/Vol] 19.8 mmol/L High 6.0-15.0 Th e Count Includes [facility] Comment on above: Performed By: #### C BC, CMP, MG #### [address] AST [Catalytic activity/Vol] 15 U/L Normal 13-39 The Count Includes [facility] Comment on above: Performed By: #### C BC, CMP, MG #### [address] Bilirubin [Mass/Vol] 0.5 mg/dL Normal 0.3-1.0 The Count Includes [facility] Comment on above: Performed By: #### C BC, CMP, MG #### [address] Calcium [Mass/Vol] 9.8 mg/dL Normal 8.6-10.3 The Count Includes [facility] Comment on above: Performed By: #### C BC, CMP, MG #### [place] [address] [place] Chloride [Moles/Vol] 100 mmol/L Normal 98-107 The Count Includes [facility] Comment on above: Performed By: #### C BC, CMP, MG #### [address] CO2 [Moles/Vol] 24.6 mmol/L Normal 21.0-31.0 The Count Includes [facility] Comment on above: Performed By: #### C BC, CMP, MG #### [address] Creatinine [Mass/Vol] 1.26 mg/dL Normal 0.70-1.30 The Count Includes [facility] Comment on above: Performed By: #### C BC, CMP, MG #### [address] Creatinine Clr Calc Pharmacy 72.23 Normal The Count Includes [facility] Comment on above: Result Comment: PERF ORMED BY: [place] [address] PATHOLOGIST BREAD SUPERVISOR NARESH VERA M.D. Performed By: #### C BC, CMP, MG #### [address] GFR/1.73 sq M.predicted MDRD (S/P/Bld) [Vol rate/Area] mL/min/{1.73_m2} Normal The Count Includes [facility] Comment on above: Performed By: #### C BC, CMP, MG #### [address] Globulin (S) [Mass/Vol] 3.5 g/dL Normal The Count Includes [facility] Comment on above: Performed By: #### C BC, CMP, MG #### [address] Glucose [Mass/Vol] 206 mg/dL High 70-100 The Count Includes [facility] Comment on above: Result Comment: [place] Glucose Reference Range is dependent on time and content of last meal. Glucose of more than 200 mg/dL in a nonstressed, ambulatory subject supports the diagnosis of Diabetes Mellitus. ADA recommended reference range Performed By: #### C BC, CMP, MG #### [address] Potassium [Moles/Vol] 5.4 mmol/L High 3.5-5.1 The Count Includes [facility] Comment on above: Performed By: #### C BC, CMP, MG #### [facility] [address] [id number] [place] Protein [Mass/Vol] 8.2 g/dL Normal 6.4-8.9 The Count Includes [facility] Comment on above: Performed By: #### C BC, CMP, MG #### [facility] [address] [place] [address] [place] Sodium [Moles/Vol] 139 mmol/L Normal 136-145 The Count Includes [facility] Comment on above: Performed By: #### C BC, CMP, MG #### [facility] [address] [id number] [place] Urea nitrogen [Mass/Vol] 15 mg/dL Normal 7-25 The Count Includes [facility] Comment on above: Performed By: #### C BC, CMP, MG #### [facility] [address] [id number] [place] Creatine Kinaseon 10-04-2024 CK [Catalytic activity/Vol] 58 U/L Normal 30-223 The Count Includes [facility] Comment on above: Performed By: #### C BC, CMP, MG #### [facility] [address] [id number] [place] Creatine kinase [Enzymatic a ctivity/volume] in Serum or PlasmaOrdered By: Pranay Bai on 10-04-2024 CK [Catalytic activity/Vol] Creatine kinase [Enzymatic activity/volume] in Serum or Plasma 30-223 [facility] Creatinine [Mass/volume] in Serum or PlasmaOrdered By: Pranay Bai on 10-04-2024 Creatinine [Mass/Vol] Creatinine [Mass/v olume] in Serum or Plasma 0.70-1.30 [facility] Eosinophils Auto (Bld) [#/Vo l]Ordered By: Pranay Bai on 10-04-2024 Eosinophils (Bld) [#/Vol] Automated eosinophil count 0.0-0.45 [facility] Eosinophils/100 WBC Auto (Bl d)Ordered By: Pranay Bai on 10-04-2024 Eosinophils/100 WBC (Bld) Automated eosinophil % . [facility] Erythrocyte distribution wid th Auto (RBC) [Ratio]Ordered By: Pranay Bai on 10-04-2024 Erythrocyte distribution width (RBC) [Ratio] Erythrocyte distribution width [Ratio] by Automated count High 12.0-14.8 [facility] Erythrocyte morphology findi ng [Identifier] in BloodOrdered By: Pranay Bai on 10-04-2024 RBC morphology finding Nom (Bld) RBC morphology [facility] Globulin Calc (S) [Mass/Vol] Ordered By: Pranay Bai on 10-04-2024 Globulin (S) [Mass/Vol] Serum globulin measurement by calculation (mass/volume) [facility] Glucose Poct Glucometerson 0 10-04-2024 Glucose [Mass/Vol] 305 mg/dL Normal The Count Includes [facility] Comment on above: Result Comment: [facility] Glucose Reference Range is dependent on time and content of last meal. Glucose of more than 200 mg/dL in a nonstressed, ambulatory subject supports the diagnosis of Diabetes Mellitus. PERFORMED BY: [place] [address] PATHOLOGIST BREAD SUPERVISOR NARESH VERA M.D. Performed By: #### B IOFIRECOVDET, RESP PANEL UPP. #### [address] Glucose [Mass/Vol] 395 mg/dL Normal The Count Includes [facility] Comment on above: Result Comment: [facility] Glucose Reference Range is dependent on time and content of last meal. Glucose of more than 200 mg/dL in a nonstressed, ambulatory subject supports the diagnosis of Diabetes Mellitus. PERFORMED BY: [place] [address] PATHOLOGIST BREAD SUPERVISOR NARESH VERA M.D. Performed By: #### G LULS #### Point of Care testing , Glucose [Mass/Vol] 288 mg/dL Normal The Count Includes [facility] Comment on above: Result Comment: [facility] Glucose Reference Range is dependent on time and content of last meal. Glucose of more than 200 mg/dL in a nonstressed, ambulatory subject supports the diagnosis of Diabetes Mellitus. PERFORMED BY: [place] [address] PATHOLOGIST BREAD SUPERVISOR NARESH VERA M.D. Performed By: #### G LULS #### Point of Care testing , Glucose [Mass/Vol] 174 mg/dL Normal The Count Includes [facility] Comment on above: Result Comment: [place] om Glucose Reference Range is dependent on time and content of last meal. Glucose of more than 200 mg/dL in a nonstressed, ambulatory subject supports the diagnosis of Diabetes Mellitus. PERFORMED BY: [facility] [place] [address] PATHOLOGIST BREAD SUPERVISOR NARESH VERA M.D. Performed By: #### G LULS #### Point of Care testing , Glucose [Mass/volume] in Ser um or PlasmaOrdered By: Pranay Bai on 10-04-2024 Glucose [Mass/Vol] Glucose [Mass/volume ] in Serum or Plasma High 70-100 [facility] Comment on above: ADA recommended refe rence rangeRandom Glucose Reference Range is dependent on time and content of last meal. Glucose of more than 200 mg/dL in a nonstressed, ambulatory subject supports the diagnosis of Diabetes Mellitus. Hematocrit Auto (Bld) [Volum e fraction]Ordered By: Pranay Bai on 10-04-2024 Hematocrit (Bld) [Volume fraction] Hematocrit [Volume Fraction] of Blood by Automated count High 38.8-50.0 [facility] Hemoglobin [Mass/volume] in BloodOrdered By: Pranay Bai on 10-04-2024 Hemoglobin (Bld) [Mass/Vol] Hemoglobin [Mass/volume] in Blood High 13.0-17.0 [facility] Hypochromia LM Ql (Bld)Order ed By: Pranay Bai on 10-04-2024 Hypochromia Ql (Bld) Hypochromia [Presen ce] in Blood by Light microscopy [facility] Leukocytes [#/volume] correc yamil for nucleated erythrocytes in Blood by Automated counOrdered By: Pranay Bai on 10-04-2024 WBC corrected for nucl RBC Auto (Bld) [#/Vol] Leukocytes [#/volume] corrected for nucleated erythrocytes in Blood by Automated coun High 4.1-10.5 [facility] Lymphocytes Auto (Bld) [#/Vo l]Ordered By: Pranay Bai on 10-04-2024 Lymphocytes (Bld) [#/Vol] Lymphocytes [#/volume] in Blood by Automated count 1.00-4.8 [facility] Lymphocytes/100 WBC Auto (Bl d)Ordered By: Pranay Bai on 10-04-2024 Lymphocytes/100 WBC (Bld) Lymphocytes/100 leukocytes in Blood by Automated count . [facility] MCH Auto (RBC) [Entitic mass ]Ordered By: Pranay Bai on 10-04-2024 MCH (RBC) [Entitic mass] MCH [Entitic mass] by Automated count Low 27.5-35.2 [facility] MCHC Auto (RBC) [Mass/Vol]Or dered By: Pranay Bai on 10-04-2024 MCHC (RBC) [Mass/Vol] MCHC [Mass/volume] by Automated count Low 32.5-35.6 [facility] MCV Auto (RBC) [Entitic vol] Ordered By: Pranay Bai on 10-04-2024 MCV (RBC) [Entitic vol] MCV [Entitic volume] by Automated count Low 83.5-101 [facility] Magnesiumon 10-04-2024 Magnesium [Mass/Vol] 2.2 mg/dL Normal 1.9-2.7 The Count Includes [facility] Comment on above: Result Comment: PERF ORMED BY: [place] [address] PATHOLOGIST BREAD SUPERVISOR NARESH VERA M.D. Performed By: #### C BC, CMP, MG #### [address] Magnesium [Mass/volume] in S bee or PlasmaOrdered By: Clifton Calderon on 10-04-2024 Magnesium [Mass/Vol] Magnesium [Mass/vol ume] in Serum or Plasma 1.9-2.7 [facility] Microcytes LM Ql (Bld)Ordere d By: Pranay Bai on 10-04-2024 Microcytes Ql (Bld) Microcytes [Presence ] in Blood by Light microscopy [facility] Monocyte distribution width [Entitic volume] in Blood by AutomatedOrdered By: Pranay Bai on 10-04-2024 Monocyte distribution width Auto (Bld) [Entitic vol] Monocyte distribution width [Entitic volume] in Blood by Automated High 0.00-20.00 [facility] Comment on above: For adults in ED, MD W > 20.0 may be associated with a higher risk of sepsis during the first 12 hrs of hospital admission Monocytes Auto (Bld) [#/Vol] Ordered By: Pranay Bai on 10-04-2024 Monocytes (Bld) [#/Vol] Automated blood monocyte count High 0.0-0.8 [facility] Monocytes/100 WBC Auto (Bld) Ordered By: Pranay Bai on 10-04-2024 Monocytes/100 WBC (Bld) Automated monocyte % . [facility] Natriuretic peptide B [Mass/ Vol]Ordered By: Pranay Bai on 10-04-2024 Natriuretic peptide B (Bld) [Mass/Vol] BNP ser/plas 5-100 [facility] Neutrophils Auto (Bld) [#/Vo l]Ordered By: Pranay Bai on 10-04-2024 Neutrophils (Bld) [#/Vol] Neutrophils [#/volume] in Blood by Automated count High 1.8-7.7 [facility] Neutrophils/100 WBC Auto (Bl d)Ordered By: Pranay Bai on 10-04-2024 Neutrophils/100 WBC (Bld) Automated neutrophil % . [facility] No Panel InformationOrdered By: Pranay Bia on 10-04-2024 Blood Gas Critical Value See comment [facility] Comment on above: Critical Value bragg d on: 10/04/2024 at 00:11 Blood Gas Liter Flow 3 [facility] Blood Gas Sample Site Venous Fir [facility] FiO2 32 % [facility] Venous Blood Base Excess -1.5 mmol/L -3.0-3.0 [facility] Venous Blood Oxygen Content 4.9 mmol/L Low 6.6-9.7 [facility] Venous Blood Oxygen Saturation 43.8 % Critically low 73.0-76.0 [facility] Venous Blood Partial Pressure CO2 48.8 mm[Hg] 38.0-50.0 [facility] Venous Blood Partial Pressure O2 26.1 mm[Hg] Low 35.0-45.0 [facility] Venous Blood pH 7.33 7.32-7.43 [facility] Estimated GFR (CKD-EPI) > 60.0 mL/Min [facility] Creatinine Clearance (Chem 72.23 [facility] Nucleated erythrocytes [Pres ence] in Blood by Automated countOrdered By: Pranay Bai on 10-04-2024 Nucleated RBC Auto Ql (Bld) Nucleated erythrocytes [Presence] in Blood by Automated count 0-0.5 [facility] Platelet adequacy [Presence] in Blood by Light microscopyOrdered By: Pranay Bai on 10-04-2024 Platelets LM Ql (Bld) Platelet adequacy [Presence] in Blood by Light microscopy Normal [facility] Platelet mean volume Auto (B ld) [Entitic vol]Ordered By: Pranay Bai on 10-04-2024 Platelet mean volume (Bld) [Entitic vol] Platelet mean volume [Entitic volume] in Blood by Automated count 6.6-10.1 [facility] Platelet morphology finding [Identifier] in BloodOrdered By: Pranay Bai on 10-04-2024 Platelet morphology finding Nom (Bld) Platelet morphology finding [Identifier] in Blood Normal [facility] Platelets Auto (Bld) [#/Vol] Ordered By: Pranay Bai on 10-04-2024 Platelets (Bld) [#/Vol] Platelets [#/volume] in Blood by Automated count 150-450 [facility] Polychromasia [Presence] in Blood by Light microscopyOrdered By: Pranay Bai on 10-04-2024 Polychromasia LM Ql (Bld) Polychromasia [Presence] in Blood by Light microscopy [facility] Potassium [Moles/volume] in Serum or PlasmaOrdered By: Pranay Bai on 10-04-2024 Potassium [Moles/Vol] Potassium [Moles/v olume] in Serum or Plasma High 3.5-5.1 [facility] Protein [Mass/volume] in Ser um or PlasmaOrdered By: Pranay Bai on 10-04-2024 Protein [Mass/Vol] Protein [Mass/volume ] in Serum or Plasma 6.4-8.9 [facility] RBC Auto (Bld) [#/Vol]Ordere d By: Pranay Bai on 10-04-2024 RBC (Bld) [#/Vol] Erythrocytes [#/volu me] in Blood by Automated count High 3.90-5.60 [facility] Respiratory (Upper) Panel, P CRon 10-04-2024 [...] Syncytial Virus Not detected COVID19 Blank Space -- COVID19 Det Results Detected results will only be called to COVID19 Det Results Providers for Inpatients. COVID19 Blank Space -- COVID-19 Detected/Not Detected Detected Blank Space -- FLUA TEST INCLUDES Influenza A tests for the following clinically FLUA TEST INCLUDES significant subtypes: FLUA TEST INCLUDES - Influenza A FLUA TEST INCLUDES - Influenza A H1 FLUA TEST INCLUDES - Influenza A H1 2009 FLUA TEST INCLUDES - Influenza A H3 Blank Space -- PERFORMED BY: [facility] [place] [address] PATHOLOGIST BREAD SUPERVISOR NARESH VERA M.D. Normal The Count Includes [facility] Comment on above: Performed By: #### B IOFIRECOVDET, RESP PANEL UPP. #### [facility] [address] Respiratory pathogens DNA an d RNA panel - Nasopharynx by YOLANDA with non-probe detectionOrdered By: Clifton Calderon on 10-04-2024 Respiratory pathogens DNA and RNA panel YOLANDA+non-probe (Nph) Respiratory pathogens DNA and RNA panel - Nasopharynx by YOLANDA with non-probe detection [facility] Scan and CBCon 10-04-2024 Anisocytosis Ql (Bld) Marked Normal The Count Includes [facility] Comment on above: Performed By: #### C BC, CMP, MG #### [address] Basophils (Bld) [#/Vol] 0.1 10*3/uL Normal 0.0-0.2 The Count Includes [facility] Comment on above: Performed By: #### C BC, CMP, MG #### [address] Basophils/100 WBC (Bld) 0.7 % Normal . The Count Includes [facility] Comment on above: Performed By: #### C BC, CMP, MG #### [address] Eosinophils (Bld) [#/Vol] 0.0 10*3/uL Normal 0.0-0.45 The Count Includes [facility] Comment on above: Performed By: #### C BC, CMP, MG #### [address] Eosinophils/100 WBC (Bld) 0.2 % Normal . The Count Includes [facility] Comment on above: Performed By: #### C BC, CMP, MG #### [address] Erythrocyte distribution width (RBC) [Ratio] 24.6 % High 12.0-14.8 The Count Includes [facility] Comment on above: Performed By: #### C BC, CMP, MG #### [address] Hematocrit (Bld) [Volume fraction] 55.3 % High 38.8-50.0 The Count Includes [facility] Comment on above: Performed By: #### C BC, CMP, MG #### [address] Hemoglobin (Bld) [Mass/Vol] 17.8 g/dL High 13.0-17.0 The Count Includes [facility] Comment on above: Performed By: #### C BC, CMP, MG #### [address] Hypochromasia Slight Normal The Count Includes [facility] Comment on above: Performed By: #### C BC, CMP, MG #### [address] Lymphocytes (Bld) [#/Vol] 1.5 10*3/uL Normal 1.00-4.8 The Count Includes [facility] Comment on above: Performed By: #### C BC, CMP, MG #### [address] Lymphocytes/100 WBC (Bld) 11.7 % Normal . The Count Includes [facility] Comment on above: Performed By: #### C BC, CMP, MG #### [address] MCH (RBC) [Entitic mass] 24.8 pg Low 27.5-35.2 The Count Includes [facility] Comment on above: Performed By: #### C BC, CMP, MG #### [address] MCV (RBC) [Entitic vol] 77.2 fL Low 83.5-101 The Count Includes [facility] Comment on above: Performed By: #### C BC, CMP, MG #### [address] Mean Corpuscular HGB Conc 32.1 g/dL Low 32.5-35.6 The Count Includes [facility] Comment on above: Performed By: #### C BC, CMP, MG #### [address] Microcytosis Marked Normal The Count Includes [facility] Comment on above: Performed By: #### C BC, CMP, MG #### [address] Monocytes (Bld) [#/Vol] 1.6 10*3/uL High 0.0-0.8 The Count Includes [facility] Comment on above: Performed By: #### C BC, CMP, MG #### [place] [address] [place] Monocytes/100 WBC (Bld) 21.22 % High 0.00-20.00 The Count Includes [facility] Comment on above: Result Comment: For adults in ED, MDW > 20.0 may be associated with a higher risk of sepsis during the first 12 hrs of hospital admission Performed By: #### C BC, CMP, MG #### [address] Monocytes/100 WBC (Bld) 12.6 % Normal . The Count Includes [facility] Comment on above: Performed By: #### C BC, CMP, MG #### [address] Neutrophils (Bld) [#/Vol] 9.5 10*3/uL High 1.8-7.7 The Count Includes [facility] Comment on above: Performed By: #### C BC, CMP, MG #### [address] Neutrophils/100 WBC (Bld) 74.8 % Normal . The Count Includes [facility] Comment on above: Performed By: #### C BC, CMP, MG #### [address] NRBC% 0.2 /100{WBC} Normal 0-0.5 The Count Includes [facility] Comment on above: Performed By: #### C BC, CMP, MG #### [address] Platelet Estimate Normal Normal Normal The Count Includes [facility] Comment on above: Performed By: #### C BC, CMP, MG #### [address] Platelet mean volume (Bld) [Entitic vol] 8.1 fL Normal 6.6-10.1 The Count Includes [facility] Comment on above: Performed By: #### C BC, CMP, MG #### [address] Platelet Morphology Normal Normal Normal The Count Includes [facility] Comment on above: Result Comment: PERF ORMED BY: [place] [address] PATHOLOGIST BREAD SUPERVISOR NARESH VERA M.D. Performed By: #### C BC, CMP, MG #### [address] Platelets (Bld) [#/Vol] 315 10*3/uL Normal 150-450 The Count Includes [facility] Comment on above: Performed By: #### C BC, CMP, MG #### [address] Polychromasia Moderate Normal The Count Includes [facility] Comment on above: Performed By: #### C BC, CMP, MG #### [address] RBC (Bld) [#/Vol] 7.16 10*6/uL High 3.90-5.60 The Count Includes [facility] Comment on above: Performed By: #### C BC, CMP, MG #### [place] [address] [place] WBC (Bld) [#/Vol] 12.7 10*3/uL High 4.1-10.5 The Count Includes [facility] Comment on above: Performed By: #### C BC, CMP, MG #### [place] [address] [place] WBC (Bld) [#/Vol] 13.8 10*3/uL High 4.1-10.5 The Count Includes [facility] Comment on above: Performed By: #### C BC, CMP, MG #### [address] Serum or plasma albumin/glob ulin mass ratioOrdered By: Pranay Bai on 10-04-2024 Albumin/Globulin [Mass ratio] Serum or plasma albumin/globulin mass ratio [facility] Serum or plasma anion gap de terminationOrdered By: Pranay Bai on 10-04-2024 Anion gap [Moles/Vol] Serum or plasma an ion gap determination High 6.0-15.0 [facility] Sodium [Moles/volume] in Ser um or PlasmaOrdered By: Pranay Bai on 10-04-2024 Sodium [Moles/Vol] Sodium [Moles/volume ] in Serum or Plasma 136-145 [facility] Troponin I High Sensitivityo n 10-04-2024 Troponin I High Sensitivity 27 High 0-20 The Count Includes [facility] Comment on above: Result Comment: The Troponin units of report have been changed to meet the Chest Pain Accreditation requirement, element EC5.M1l2. Troponin units are changed from pg/ml to ng/L. Also, the decimal is removed and results are in whole numbers. PERFORMED BY: [place] [address] PATHOLOGIST BREAD SUPERVISOR NARESH VERA M.D. Performed By: #### C BC, CMP, MG #### [address] Troponin I.cardiac [Mass/vol ume] in Serum or Plasma by Detection limit <= 0.01 ng/Ordered By: Pranay Bai on 10-04-2024 Troponin I.cardiac DL <= 0.01 ng/mL [Mass/Vol] Troponin I.cardiac [Mass/volume] in Serum or Plasma by Detection limit <= 0.01 ng/ High 0-20 [facility] Comment on above: The Troponin units [...] nitrogen [Mass/volume] in Serum or Plasma 7-25 [facility] Venous Blood GasOrdered By: Pranay Bai on 10-04-2024 CO2 [Moles/Vol] 26.6 mmol/L Normal 24.0-29.0 [facility] Comment on above: Performed By: #### C BC, CMP, MG #### [address] HCO3 (Bld) [Moles/Vol] 25.2 mmol/L Normal 23.0-29.0 [facility] Comment on above: Performed By: #### C BC, CMP, MG #### [address] Venous Blood [place]ason Respiratory Critical Normal The Count Includes [facility] Comment on above: Result Comment: Crit ical Value called on: 10/04/2024 at 00:11 PERFORMED BY: [place] [address] PATHOLOGIST BREAD SUPERVISOR NARESH VERA M.D. Performed By: #### C BC, CMP, MG #### [address] VBG Base Excess -1.5 mmol/L Normal -3.0-3.0 The Count Includes [facility] Comment on above: Performed By: #### C BC, CMP, MG #### [address] VBG Draw Site Venous Normal The Count Includes [facility] Comment on above: Performed By: #### C BC, CMP, MG #### [address] VBG Frac Inspired O2 32 % Normal The Count Includes [facility] Comment on above: Performed By: #### C BC, CMP, MG #### [address] VBG Liter Flow 3 Normal The Count Includes [facility] Comment on above: Performed By: #### C BC, CMP, MG #### [address] VBG O2 Content 4.9 mmol/L Low 6.6-9.7 The Count Includes [facility] Comment on above: Performed By: #### C BC, CMP, MG #### [address] VBG Oxygen Saturation 43.8 % Off scale low 73.0-76.0 The Count Includes [facility] Comment on above: Performed By: #### C BC, CMP, MG #### [address] VBG PCO2 48.8 mm[Hg] Normal 38.0-50.0 The Count Includes [facility] Comment on above: Performed By: #### C BC, CMP, MG #### [address] VBG PH Venous PH 7.33 Normal 7.32-7.43 The Count Includes [facility] Comment on above: Performed By: #### C BC, CMP, MG #### [address] VBG PO2 26.1 mm[Hg] Low 35.0-45.0 The Count Includes [facility] Comment on above: Performed By: #### C BC, CMP, MG #### [address] WBC Auto (Bld) [#/Vol]Ordere d By: Pranay Bai on 10-04-2024 WBC (Bld) [#/Vol] Leukocytes [#/volume ] in Blood by Automated count High 4.1-10.5 [facility] ECG 12 lead ECGon 10-03-2024 ECG 12 lead ECG [facility] [place] [address] Electrocardiograph Report Signed Patient: Ricardo Hylton MR#: [id number] : 1960 Acct:[id number] Age/Sex: 63 / M ADM Date: 10/04/24 Loc: Room: [address] [place] [address] Type: ADM IN Attending Dr: Eden Greenwood [...] QRS duration Confirmed by PRANAY BAI MD ([id number]) on 10/05/2024 4:50:26 AM Referred By: Electronically Signed By: PRANAY BAI MD Transcribed By: MUS Signed By Pranay Bai Jr, MD [id number] Normal The Count Includes [facility] X-ray reportOrdered By: Ludin Bateman on 10-03-2024 Study report [facility] Main [address] [address] XRay Report Signed Patient: Ricardo Hylton MR#: [id number] : 1960 Acct:[id number] Age/Sex: 63 / M ADM Date: 5 Loc: ER Room: Type: [facility] ER Attending Dr: Copies to: Pranay [...] Daryl Bateman M.D.10/03/2024 11:14 PM Dictation Location: [place] [address] Transcribed By: [facility] 10/03/242313 Dictated By: Daryl Bateman MD 10/03/242312 Signed By: 10/03/24 231 [facility] Work Phone: XR chest 1V portableon 10-03 XR chest 1V portable [address] [address] XRay Report Signed Patient: Ricardo Hylton MR#: [id number] 88 : 1960 Acct:[id number] Age/Sex: 63 / M ADM Date: 10/03/24 Loc: ER Room: Type: [facility] ER Attending Dr: Copies to: Pranay [...] Daryl Bateman M.D.10/03/2024 11:14 PM Dictation Location: [place] [address] Transcribed By: [facility] 10/03/242313 Dictated By: Daryl Bateman MD 10/03/242312 Signed By: 10/03/242313 Normal [facility] Ambulatory Visit Summaryon [...] Contact prescribing physician if questions or concerns albuterol-ipratropium (Combivent Respimat 20 mcg-100 mcg) alpha 1-proteinase inhibitor (Prolastin-C) aripiprazole (aripiprazole 10 mg Tab) aspirin (aspirin 81 mg Oral EC Tab) cyclobenzaprine (cyclobenzaprine 5 mg Tab) dextromethorphan-guaifenes in (Mucinex DM 30 mg-600 mg Tab-ER) fluticasone/umeclidinium/v ilanterol (Trelegy Ellipta 100 mcg-62.5 mcg-25 mcg inhalation [...] PM EST With: SARAH TRIVEDI CNP Where: [address] [address]- Tuesday 1:00 PM EDT With: Where: [address] [id number]- Medications What How Much When Why Instructions New empagliflozin (Jardiance 25 mg oral tablet) 1 Tablets By Mouth Once a day (in the morning) Pickup at [facility]/pharmacy #[id number] Unchanged albuterol-ipratropium (Combivent Respimat 20 mcg-100 mcg) 1 Puffs [...] prescribing physician if questions or concerns Unchanged dextromethorphan-guaifenes in (Mucinex DM 30 mg-600 mg Tab-ER) See [...] or concerns Pharmacy Information [id number]: [address], [place] [phone] Allergies metFORMIN (Diarrhea) Pro (more content not included)... Normal [facility] Office/Clini c Noteon 05-22-2024 [...] f/u in 3 months Ordered: A1c POC 30097 2. Anxiety (F41.9: Anxiety disorder, unspecified) Completed and reviewed the PHQ-9 score of 10 and the CANDACE-7 score of 12 Encouraged patient to contact [facility] for counseling Increase hydroxyzine 50 mg one tablet po TID prn for anxiety f/u in 4 weeks Ordered: hydrOXYzine, 50 mg = 1 tab(s), Oral, TID, PRN for anxiety, # 90 tab(s), Refills(s) 0, Pharmacy: [facility]/pharmacy #[id number], 177, cm, 05/22/24 15:06:00 EST, Height/Length Dosing, 107.7, kg, 05/22/24 15:06:00 EST, Weight Dosing A1c POC 40916 3. Former smoker (Z87.891: Personal history of nicotine dependence) Courage to continue is a non-smoker Ordered: A1c POC 59173 4. BMI 34.0-34.9,adult (Z68.34: Body mass index [...] control and daily exercise Ordered: A1c POC 06666 5. Exogenous obesity (E66.09: Other obesity due to excess calories) The standard range for ages 18 and older is >=18.5 and < 25 kg/m2. Your BMI today was above this range, this falls in the overweight to obese category and there are medical benefits to weight loss. We can off (more content not included)... [facility] Comment on above: Result Comment: Elec tronically Signed By: SARAH TRIVEDI CNP\.br\Date and Time Signed: 05/22/24 15:51 EST Provider Letteron 05-02-2024 Provider Letter Provider Letter May 02, 2024 [address] [place] [id number] RICARDO HYLTON 1960 Dear Ricardo, We have been trying to reach you with no success. It is important that you return our call regarding your hospital discharge upon receiving this letter. Also, at the time of your call, please provide us with your current information. Thank you for your prompt attention to this matter. Sincerely, Mark, Hand Tier [phone] [facility] Pre-Visit Planningon 024 Pre-Visit Planning Pre-Visit Planning From: Wanda BRYANT, Yesenia To: SARAH TRIVEDI [...] was 93%. 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 Patient admits to be a little more SOB today. Follows up as directed and prn with pcp. Addendum by SARAH TRIVEDI CNP on January 24, 2024 11:51:10 EDT (Verified) From: SARAH TRIVEDI CNP To: Yesenia Muñoz RN; Sent: 01/24/2024 11:51:10 EDT Subject: RE: Pre-Visit Planning Caller Name: RICARDO HYLTON; Caller Number: Jose , M Added to diagnosis From: Yesenia Muñoz RN To: SARAH TRIVEDI [...] feel free to contact me at extension [phone]. Thank you! ROWDY Kidd, RN, CCM, CCDS, CCDS-O CDI [employer] Architect [address] [address] P: [phone] F: [phone] [email or web address] From: SARAH TRIVEDI CNP To: Yesenia Muñoz RN; Sent: 04/24/2024 13:57:06 EDT Subject: RE: Pre-Visit Planning Caller Name: RICARDO HYLTON; Caller Number: Jose , M Patient did not show for his appointment however, dx added to the chronic list. Normal [facility] Pre-Visit Planning Pre-Visit Planning From: Yesenia Muñoz RN To: SARAH TRIVEDI CNP; Sent: 04/23/2024 12:47:25 EDT Subject: Pre-Visit Planning Due Date/Time: 04/23/2024 12:47:00 EDT Caller Name: RICARDO HYLTON; Caller Number: H , M brenice Whatley in January you responded to the [...] on January 24, 2024 11:50:53 EDT (Verified) From: SARAH TRIVEDI CNP To: Yesenia Muñoz RN; Sent: 01/24/2024 11:50:53 EDT Subject: RE: Pre-Visit Planning Caller Name: RICARDO HYLTON; Caller Number: Jose , M Added to diagnosis From: Wanda BRYANT, Yesenia To: SARAH TRIVEDI CNP; Sent: 01/17/2024 10:02:44 [...] BMI of 36 on 12/29/2022. The [employer] defines obesity as morbid if [...] feel free to contact me at extension [phone]. Thank you! Yesenia Muñoz, ROWDY, RN, CCM, CCDS, CCDS-O CDI [employer]fd[employer] Architect [place] [address] P: [phone] F: [phone] [email or web address] From: SARAH TRIVEDI CNP To: Wanda BRYANT, Yesenia; Sent: 04/24/2024 13:56:56 EDT Subject: RE: Pre-Visit Planning Caller Name: RICARDO HYLTON; Caller Number: Jose , M Patient did not show for his appointment however, dx added to the chronic list. Normal [facility] CHEMISTRYOrdered By: SYSTEM SYSTEM on 01-24-2024 [...] activity/Vol] 78 [iU]/d Normal 21 - 98 Int._Unit/ L Remisol Chem ALT No additional P-5'-P [Catalytic activity/Vol] 18 [iU]/d Normal 6 - 46 Int._Unit/ L Remisol Chem Anion gap [Moles/Vol] 13 mmol/L Normal 6 - 16 mEq/L Remisol Chem AST [Catalytic activity/Vol] 15 [iU]/d Normal 5 - 43 Int._Unit/ L Remisol Chem Bilirubin [Mass/Vol] 0.4 mg/dL Normal [...] used for this result was chemiluminescence using [employer]'s Access Hybritech PSA reagent. Protein [Mass/Vol] 7.3 [...] [Catalytic activity/Vol] 49 U/L Normal 39-308 [facility] Comment on above: Performed By: #### C MP #### [facility] [address] [place] [address] Dr. Jessie Lomax CK.MB [Mass/Vol] 1.93 ng/mL Normal <=3.60 [facility] Comment on above: Performed By: #### C MP #### [facility] [address] [place] [address] Dr. Jessie Lomax HSTROP 7.8 pg/mL Normal 4.0-76.1 [facility] Comment on above: Result Comment: CUT- OFF POINTS HAVE BEEN ESTABLISHED BASED ON THE FOURTH UNIVERSAL DEFINITIONS OF MYOCARDIAL INFARCTION. THE UPPER REFERENCE LIMIT (URL) OF TROPONIN, DEFINED THE 99TH PERCENTILE OF cTnI DISTRIBUTION IN A REFERENCE POPULATION, HAS BEEN CONFIRMED THE DECISION THRESHOLD FOR AR DIAGNOSIS. Performed By: #### C MP #### [facility] [address] [place] [address] Dr. Jessie Lomax LACTATE/LACTIC ACIDon 2022 Lactate [Moles/Vol] 1.5 mmol/L Normal 0.4-2.0 [facility] Comment on above: Performed By: #### B LDCX1 #### [facility] [address] [place] [address] Dr. Jessie Lomax Lactate [Moles/Vol] 2.5 mmol/L Critically high 0.4-2.0 [facility] Comment on above: Performed By: #### B LDCX1 #### [facility] [address] [place] [address] Dr. Jessie Lomax CARDIAC JUSTINE ADMITon 023 CK [Catalytic activity/Vol] 36 U/L Critically low 39-308 [facility] Comment on above: Performed By: #### A CETON #### [facility] [address] [place] [address] Dr. Jessie Lomax CK.MB [Mass/Vol] 1.50 ng/mL Normal <=3.60 [facility] Comment on above: Performed By: #### A CETON #### [facility] [address] [place] [address] Dr. Jessie Lomax HSTROP 7.4 pg/mL Normal 4.0-76.1 [facility] Comment on above: Result Comment: CUT- OFF POINTS HAVE BEEN ESTABLISHED BASED ON THE FOURTH UNIVERSAL DEFINITIONS OF MYOCARDIAL INFARCTION. THE UPPER REFERENCE LIMIT (URL) OF TROPONIN, DEFINED THE 99TH PERCENTILE OF cTnI DISTRIBUTION IN A REFERENCE POPULATION, HAS BEEN CONFIRMED THE DECISION THRESHOLD FOR AR DIAGNOSIS. Performed By: #### A CETON #### [facility] [address] [place] [address] Dr. Jessie Lomax HERLINDA 44 ng/mL Normal 16-96 [facility] Comment on above: Performed By: #### A CETON #### [facility] [address] [place] [address] Dr. Jessie Lomax CBC AUTO DIFFon 10-03-2022 BASO # 0.1 103/ul Normal 0.0-0.1 [facility] Comment on above: Performed By: #### C BC #### [facility] [address] [place] [address] Dr. Jessie Lomax Basophils/100 WBC (Bld) 0.5 % Normal 0.2-2.0 [facility] Comment on above: Performed By: #### C BC #### [facility] [address] [place] [address] Dr. Jessie Lomax EO # 0.0 103/ul Normal 0.0-0.7 [facility] Comment on above: Performed By: #### C BC #### [facility] [address] [place] [address] Dr. Jessie Lomax Eosinophils/100 WBC (Bld) 0.2 % Critically low 0.9-7.0 [facility] Comment on above: Performed By: #### C BC #### [facility] [address] [place] [address] Dr. Jessie Lomax Erythrocyte distribution width (RBC) [Ratio] 14.6 % Normal 11.0-15.0 [facility] Comment on above: Performed By: #### C BC #### [facility] [address] [place] [address] Dr. Jessie Lomax Hematocrit (Bld) [Volume fraction] 49.6 % Normal 42.0-54.0 [facility] Comment on above: Performed By: #### C BC #### [facility] [address] [place] [address] Dr. Jessie Lomax Hemoglobin (Bld) [Mass/Vol] 16.6 g/dL Normal 14.0-18.0 [facility] Comment on above: Performed By: #### C BC #### [facility] [address] [place] [address] Dr. Jessie Lomax IG # 0.10 10e3/ul Critically high 0.00-0.03 [facility] Comment on above: Performed By: #### C BC #### [facility] [address] [place] [address] Dr. Jessie Lomax IG % 0.8 % Critically high 0.0-0.5 [facility] Comment on above: Performed By: #### C BC #### [facility] [address] [place] [address] Dr. Jessie Lomax LYMPH # 1.0 103/ul Critically low 1.2-3.8 [facility] Comment on above: Performed By: #### C BC #### [facility] [address] [place] [address] Dr. Jessie Lomax Lymphocytes/100 WBC (Bld) 8.2 % Critically low 20.5-60.0 [facility] Comment on above: Performed By: #### C BC #### [facility] [address] [place] [address] Dr. Jessie Lomax MANUAL DIFF REQ NO Normal [facility] Comment on above: Performed By: #### C BC #### [facility] [address] [place] [address] Dr. Jessie Lomax MCH (RBC) [Entitic mass] 31.0 pg Normal 25.9-34.0 [facility] Comment on above: Performed By: #### C BC #### [facility] [address] [place] [address] Dr. Jessie Lomax MCHC (RBC) [Mass/Vol] 33.5 g/dL Normal 29.9-35.2 [facility] Comment on above: Performed By: #### C BC #### [facility] [address] [place] [address] [address] Jessie Lomax MCV (RBC) [Entitic vol] 92.5 fL Normal 80.0-94.0 [facility] Comment on above: Performed By: #### C BC #### [facility] [address] [place] [address] [address] Jessie Lomax MONO # 0.6 103/ul Normal 0.3-0.8 [facility] Comment on above: Performed By: #### C BC #### [facility] [address] [place] [address] Dr. Jessie Lomax Monocytes/100 WBC (Bld) 4.9 % Normal 1.7-12.0 [facility] Comment on above: Performed By: #### C BC #### [facility] [address] [place] [address] Dr. Jessie Lomax NEUT # 10.5 103/ul Critically high 1.4-6.5 [facility] Comment on above: Performed By: #### C BC #### [facility] [address] [place] [address] Dr. Jessie Lomax Neutrophils/100 WBC (Bld) 85.4 % Critically high 43.0-75.0 [facility] Comment on above: Performed By: #### C BC #### [facility] [address] [place] [address] Dr. Jessie Lomax Platelet mean volume (Bld) [Entitic vol] 9.3 fL Critically low 9.5-13.5 [facility] Comment on above: Performed By: #### C BC #### [facility] [address] [place] [address] Dr. Jessie Lomax PLT 259 103/ul Normal 150-450 [facility] Comment on above: Performed By: #### C BC #### [facility] [address] [place] [address] Dr. Jessie Lomax RBC 5.36 106/ul Normal 4.70-6.10 [facility] Comment on above: Performed By: #### C BC #### [facility] [address] [place] [address] Dr. Jessie Lomax WBC 12.3 103/ul Critically high 4.0-11.0 [facility] Comment on above: Performed By: #### C BC #### [facility] [address] [place] [address] Dr. Jessie Lomax LACTATE/LACTIC ACIDon 2022 Lactate [Moles/Vol] 2.9 mmol/L Critically high 0.4-2.0 [facility] Comment on above: Performed By: #### C MP #### [facility] [address] [place] [address] Dr. Jessie Lomax PROF CHEM 8 (BAS METB)on Anion gap [Moles/Vol] 8.7 mmol/L Normal [facility] Comment on above: Performed By: #### A CETON #### [facility] [address] [place] [address] Dr. Jessie Lomax Calcium [Mass/Vol] 8.9 mg/dL Normal 8.5-10.1 [facility] Comment on above: Performed By: #### A CETON #### [facility] [address] [place] [address] Dr. Jessie Lomax Chloride [Moles/Vol] 100 mmol/L Normal 98-107 [facility] Comment on above: Performed By: #### A CETON #### [facility] [address] [place] [address] Dr. Jessie Lomax CO2 [Moles/Vol] 32.6 mmol/L Critically high 21.0-32.0 [facility] Comment on above: Performed By: #### A CETON #### [facility] [address] [place] [address] Dr. Jessie Lomax Creatinine [Mass/Vol] 1.32 mg/dL Critically high 0.70-1.30 [facility] Comment on above: Performed By: #### A CETON #### [facility] [address] [place] [address] Dr. Jessie Lomax EGFR-AF SRI LANKAN >60 Normal >=60 [facility] Comment on above: Performed By: #### A CETON #### [facility] [address] [place] [address] Dr. Jessie Lomax EGFR-NON AF SRI LANKAN 55 mL/min/1.73m2 Critically low >=60 [facility] Comment on above: Performed By: #### A CETON #### [facility] [address] [place] [address] Dr. Jessie Lomax Glucose [Mass/Vol] 360 mg/dL Critically high 74-106 [facility] Comment on above: Performed By: #### A CETON #### [facility] [address] [place] [address] Dr. Jessie Lomax Potassium [Moles/Vol] 4.3 mmol/L Normal 3.5-5.1 [facility] Comment on above: Performed By: #### A CETON #### [facility] [address] [place] [address] Dr. Jessie Lomax Sodium [Moles/Vol] 137 mmol/L Normal 136-145 [facility] Comment on above: Performed By: #### A CETON #### [facility] [address] [place] [address] Dr. Jessie Lomax Urea nitrogen [Mass/Vol] 20.0 mg/dL Critically high 7.0-18.0 [facility] Comment on above: Performed By: #### A CETON #### [facility] [address] [place] [address] Dr. Jessie Lomax Urea nitrogen/Creatinine [Mass ratio] 15.2 mg/mg Normal [facility] Comment on above: Performed By: #### A CETON #### [facility] [address] [place] [address] Dr. Jessie Lomax XR CHEST 1 Von [...] SOLA SHELL Date: 2022-10-03 20:56 Normal [facility] ER URINE PROFILEon 3 Bilirubin Ql (U) Negative Normal NEGATIVE [facility] Comment on above: Performed By: #### T TYLER #### [facility] [address] [place] [address] Dr. Jessie Lomax Clarity (U) CLEAR Normal CLEAR [facility] Comment on above: Performed By: #### T TYLER #### [facility] [address] [place] [address] [address] Jessie Lomax Color (U) LT. YELLOW Normal YELLOW [facility] Comment on above: Performed By: #### T TYLER #### [facility] [address] [place] [address] Dr. Jessie Lomax ERUAHD A micrscopic examina tion will be performed if indicated. Normal [facility] Comment on above: Performed By: #### T TYLER #### [facility] [address] [place] [address] Dr. Jessie Lomxa Glucose Ql (U) >1000 Abnormal NEGATIVE [facility] Comment on above: Performed By: #### T TYLER #### [facility] [address] [place] [address] Dr. Jessie Lomax Hemoglobin Ql (U) Negative Normal NEGATIVE [facility] Comment on above: Performed By: #### T TYLER #### [facility] [address] [place] [address] [address] Jessie Lomax Ketones Ql (U) Negative Normal NEGATIVE [facility] Comment on above: Performed By: #### T TYLER #### [facility] [address] [place] [address] [address] Jessie Lomax LEUKOCYTES Negative Normal NEGATIVE [facility] Comment on above: Performed By: #### T TYLER #### [facility] [address] [place] [address] Dr. Jessie Lomax Nitrite Ql (U) Negative Normal NEGATIVE [facility] Comment on above: Performed By: #### T TYLER #### [facility] [address] [place] [address] Dr. Jessie Lomax pH (U) 6.0 [pH] Normal 5-9 [facility] Comment on above: Performed By: #### T TYLER #### [facility] [address] [place] [address] Dr. Jessie Lomax SPEC GRAVITY <=1.005 Abnormal 1.005-<=1. 025 [facility] Comment on above: Performed By: #### T TYLER #### [facility] [address] [place] [address] Dr. Jessie Lomax UA PROTEIN Negative Normal NEGATIVE/ TRACE [facility] Comment on above: Performed By: #### T TYLER #### [facility] [address] [place] [address] Dr. Jessie Lomax UR MICRO IND NOT INDICATED Normal [facility] Comment on above: Performed By: #### T TYLER #### [facility] [address] [place] [address] Dr. Jessie Lomax Urobilinogen Qn (U) 0.2 {Angelique'U}/dL Normal 0.2 - 1. 0 [facility] Comment on above: Performed By: #### T TYLER #### [facility] [address] [place] [address] Dr. Jessie Lomax CBC AUTO DIFFon 08-30-2022 BASO # 0.0 103/ul Normal 0.0-0.1 [facility] Comment on above: Performed By: #### C BC #### [facility] [address] [place] [address] Dr. Jessie Lomax Basophils/100 WBC (Bld) 0.1 % Critically low 0.2-2.0 [facility] Comment on above: Performed By: #### C BC #### [facility] [address] [place] [address] Dr. Jessie Lomax EO # 0.0 103/ul Normal 0.0-0.7 [facility] Comment on above: Performed By: #### C BC #### [facility] [address] [place] [address] Dr. Jessie Lomax Eosinophils/100 WBC (Bld) 0.1 % Critically low 0.9-7.0 [facility] Comment on above: Performed By: #### C BC #### [facility] [address] [place] [address] Dr. Jessie Lomax Erythrocyte distribution width (RBC) [Ratio] 13.6 % Normal 11.0-15.0 [facility] Comment on above: Performed By: #### C BC #### [facility] [address] [place] [address] Dr. Jessie Lomax Hematocrit (Bld) [Volume fraction] 46.3 % Normal 42.0-54.0 [facility] Comment on above: Performed By: #### C BC #### [facility] [address] [place] [address] Dr. Jessie Lomax Hemoglobin (Bld) [Mass/Vol] 15.4 g/dL Normal 14.0-18.0 [facility] Comment on above: Performed By: #### C BC #### [facility] [address] [place] [address] Dr. Jessie Lomax IG # 0.08 10e3/ul Critically high 0.00-0.03 [facility] Comment on above: Performed By: #### C BC #### [facility] [address] [place] [address] Dr. Jessie Lomax IG % 0.6 % Critically high 0.0-0.5 [facility] Comment on above: Performed By: #### C BC #### [facility] [address] [place] [address] Dr. Jessie Lomax LYMPH # 0.8 103/ul Critically low 1.2-3.8 [facility] Comment on above: Performed By: #### C BC #### [facility] [address] [place] [address] Dr. Jessie Lomax Lymphocytes/100 WBC (Bld) 5.7 % Critically low 20.5-60.0 [facility] Comment on above: Performed By: #### C BC #### [facility] [address] [place] [address] Dr. Jessie Lomax MANUAL DIFF REQ NO Normal [facility] Comment on above: Performed By: #### C BC #### [facility] [address] [place] [address] Dr. Jessie Lomax MCH (RBC) [Entitic mass] 30.2 pg Normal 25.9-34.0 [facility] Comment on above: Performed By: #### C BC #### [facility] [address] [place] [address] Dr. Jessie Lomax MCHC (RBC) [Mass/Vol] 33.3 g/dL Normal 29.9-35.2 [facility] Comment on above: Performed By: #### C BC #### [facility] [address] [place] [address] Dr. Jessie Lomax MCV (RBC) [Entitic vol] 90.8 fL Normal 80.0-94.0 [facility] Comment on above: Performed By: #### C BC #### [facility] [address] [place] [address] Dr. Jessie Lomax MONO # 0.4 103/ul Normal 0.3-0.8 [facility] Comment on above: Performed By: #### C BC #### [facility] [address] [place] [address] Dr. Jessie Lomax Monocytes/100 WBC (Bld) 2.9 % Normal 1.7-12.0 [facility] Comment on above: Performed By: #### C BC #### [facility] [address] [place] [address] Dr. Jessie Lomax NEUT # 12.3 103/ul Critically high 1.4-6.5 [facility] Comment on above: Performed By: #### C BC #### [facility] [address] [place] [address] Dr. Jessie Lomax Neutrophils/100 WBC (Bld) 90.6 % Critically high 43.0-75.0 [facility] Comment on above: Performed By: #### C BC #### [facility] [address] [place] [address] Dr. Jessie Lomax Platelet mean volume (Bld) [Entitic vol] 9.3 fL Critically low 9.5-13.5 [facility] Comment on above: Performed By: #### C BC #### [facility] [address] [place] [address] Dr. Jessie Lomax PLT 389 103/ul Normal 150-450 [facility] Comment on above: Performed By: #### C BC #### [facility] [address] [place] [address] Dr. Jessie Lomax RBC 5.10 106/ul Normal 4.70-6.10 [facility] Comment on above: Performed By: #### C BC #### [facility] [address] [place] [address] Dr. Jessie Lomax WBC 13.6 103/ul Critically high 4.0-11.0 [facility] Comment on above: Performed By: #### C BC #### [facility] [address] [place] [address] Dr. Jessie Lomax POINT OF CARE GLUCOSEon 08-18 Glucose [Mass/Vol] 283 mg/dL Critically high 74-106 [facility] Comment on above: Performed By: #### C BC #### [facility] [address] [place] [address] Dr. Jessie Lomax Glucose [Mass/Vol] 315 mg/dL Critically high 74-106 [facility] Comment on above: Performed By: #### T TYLER #### [facility] [address] [place] [address] Dr. Jessie Lomax PROF 14(COMP METB)on 023 Albumin [Mass/Vol] 3.7 g/dL Normal 3.4-5.0 [facility] Comment on above: Performed By: #### C MP #### [facility] [address] [place] [address] Dr. Jessie Lomax Albumin/Globulin [Mass ratio] 1.0 {ratio} Normal [facility] Comment on above: Performed By: #### C MP #### [facility] [address] [place] [address] Dr. Jessie Lomax ALP [Catalytic activity/Vol] 94 U/L Normal 46-116 [facility] Comment on above: Performed By: #### C MP #### [facility] [address] [place] [address] Dr. Jessie Lomax ALT [Catalytic activity/Vol] 23 U/L Normal 16-63 [facility] Comment on above: Performed By: #### C MP #### [facility] [address] [place] [address] Dr. Jessie Lomax Anion gap [Moles/Vol] 13.6 mmol/L Normal [facility] Comment on above: Performed By: #### C MP #### [facility] [address] [place] [address] Dr. Jessie Lomax AST [Catalytic activity/Vol] 9 U/L Critically low 15-37 [facility] Comment on above: Performed By: #### C MP #### [facility] [address] [place] [address] Dr. Jessie Lomax Bilirubin [Mass/Vol] 0.3 mg/dL Normal 0.2-1.0 [facility] Comment on above: Performed By: #### C MP #### [facility] [address] [place] [address] Dr. Jessie Lomax Calcium [Mass/Vol] 9.8 mg/dL Normal 8.5-10.1 [facility] Comment on above: Performed By: #### C MP #### [facility] [address] [place] [address] Dr. Jessie Lomax Chloride [Moles/Vol] 99 mmol/L Normal 98-107 [facility] Comment on above: Performed By: #### C MP #### [facility] [address] [place] [address] Dr. Jessie Lomax CO2 [Moles/Vol] 29.2 mmol/L Normal 21.0-32.0 [facility] Comment on above: Performed By: #### C MP #### [facility] [address] [place] [address] Dr. Jessie Lomax Creatinine [Mass/Vol] 1.17 mg/dL Normal 0.70-1.30 [facility] Comment on above: Performed By: #### C MP #### [facility] [address] [address] [address] Jessie oLmax EGFR-AF SRI LANKAN >60 Normal >=60 [facility] Comment on above: Performed By: #### C MP #### [facility] [address] [address] [address] Jessie Lomax EGFR-NON AF SRI LANKAN >60 Normal >=60 [facility] Comment on above: Performed By: #### C MP #### [facility] [address] [address] [address] Jessie Lomax Globulin (S) [Mass/Vol] 3.6 g/dL Normal [facility] Comment on above: Performed By: #### C MP #### [facility] [address] [place] [address] Dr. Jessie Lomax Glucose [Mass/Vol] 259 mg/dL Critically high 74-106 [facility] Comment on above: Performed By: #### C MP #### [facility] [address] [address] [address] Jessie Lomax Potassium [Moles/Vol] 3.8 mmol/L Normal 3.5-5.1 [facility] Comment on above: Performed By: #### C MP #### [facility] [address] [place] [address] Dr. Jessie Lomax Protein [Mass/Vol] 7.3 g/dL Normal 6.4-8.2 [facility] Comment on above: Performed By: #### C MP #### [facility] [address] [place] [address] Dr. Jessie Lomax Sodium [Moles/Vol] 138 mmol/L Normal 136-145 [facility] Comment on above: Performed By: #### C MP #### [facility] [address] [place] [address] Dr. Jessie Lomax Urea nitrogen [Mass/Vol] 21.0 mg/dL Critically high 7.0-18.0 [facility] Comment on above: Performed By: #### C MP #### [facility] [address] [address] [address] Jessie Lomax Urea nitrogen/Creatinine [Mass ratio] 17.9 mg/mg [facility] Comment on above: Performed By: #### C MP #### [facility] [address] [address] [address] Jessie Lomax BLOOD GASES BTYon 08-29-2022 02 MODE HAND HELD NEB [facility] Comment on above: Performed By: #### C MP #### [facility] [address] [place] [address] Dr. Jessie Lomax ALLENS TEST Positive [facility] Comment on above: Performed By: #### C MP #### [facility] [address] [address] [address] Jessie Lomax Base excess Calc (Bld) [Moles/Vol] 2.1 mmol/L Critically high -2.0-2.0 [facility] Comment on above: Performed By: #### C MP #### [facility] [address] [place] [address] Dr. Jessie Lomax BIPAP PRESSURE [facility] Comment on above: Performed By: #### C MP #### [facility] [address] [place] [address] Dr. Jessie Lomax CPAP [facility] Comment on above: Performed By: #### C MP #### [facility] [address] [address] [address] Jessie Lomax FIO2 [facility] Comment on above: Performed By: #### C MP #### [facility] [address] [place] [address] Dr. Jessie Lomax HCO3 (Bld) [Moles/Vol] 27.7 mmol/L Critically high 22.0-26 .0 [facility] Comment on above: Performed By: #### C MP #### [facility] [address] [place] [address] Dr. Jessie Lomax LPM 6 [facility] Comment on above: Performed By: #### C MP #### [facility] [address] [address] [address] Jessie Lomax MINUTE VOLUME [facility] Comment on above: Performed By: #### C MP #### [facility] [address] [place] [address] Dr. Jessie Lomax Oxygen (Bld) [Partial pressure] 90.6 mm[Hg] Normal 80.0-100.0 [facility] Comment on above: Performed By: #### C MP #### [facility] [address] [place] [address] Dr. Jessie Lomax Oxygen saturation in Blood 95.5 % Normal 95.0-100.0 [facility] Comment on above: Performed By: #### C MP #### [facility] [address] [place] [address] Dr. Jessie Lomax PCO2 49.7 mmHg Critically high 35.0-45.0 [facility] Comment on above: Performed By: #### C MP #### [facility] [address] [place] [address] Dr. Jessie Lomax [facility] Comment on above: Performed By: #### C MP #### [facility] [address] [place] [address] Dr. Jessie Lomax pH (Bld) 7.354 [pH] Normal 7.350-7.45 0 [facility] Comment on above: Performed By: #### C MP #### [facility] [address] [place] [address] Dr. Jessie Lomax PIP [facility] Comment on above: Performed By: #### C MP #### [facility] [address] [place] [address] Dr. Jessie Lomax PS [facility] Comment on above: Performed By: #### C MP #### [facility] [address] [place] [address] Dr. Jessie Lomax PUNCTURE SITE RR [facility] Comment on above: Performed By: #### C MP #### [facility] [address] [place] [address] Dr. Jessie Lomax RATE [facility] Comment on above: Performed By: #### C MP #### [facility] [address] [place] [address] Dr. Jessie Lomax [place] Comment on above: Performed By: #### C MP #### [facility] [address] [place] [address] Dr. Jessie Lomax [facility] Comment on above: Performed By: #### C MP #### [facility] [address] [place] [address] Dr. Jessie Lomax BNPon 08-29-2022 Natriuretic peptide B (Bld) [Mass/Vol] 130.0 pg/mL Normal <=900.0 [facility] Comment on above: Performed By: #### B [id number] #### [facility] [address] [place] [address] Dr. Jessie Lomax CARDIAC JUSTINE ADMITon 023 CK [Catalytic activity/Vol] 41 U/L Normal 39-308 [facility] Comment on above: Performed By: #### B [id number] #### [facility] [address] [place] [address] Dr. Jessie Lomax CK.MB [Mass/Vol] 1.87 ng/mL Normal <=3.60 [facility] Comment on above: Performed By: #### B [id number] #### [facility] [address] [place] [address] Dr. Jessie Lomax HSTROP 27.3 pg/mL Normal 4.0-76.1 [facility] Comment on above: Result Comment: CUT- OFF POINTS HAVE BEEN ESTABLISHED BASED ON THE FOURTH UNIVERSAL DEFINITIONS OF MYOCARDIAL INFARCTION. THE UPPER REFERENCE LIMIT (URL) OF TROPONIN, DEFINED THE 99TH PERCENTILE OF cTnI DISTRIBUTION IN A REFERENCE POPULATION, HAS BEEN CONFIRMED THE DECISION THRESHOLD FOR AR DIAGNOSIS. Performed By: #### B [id number] #### [facility] [address] [place] [address] Dr. Jessie Lomax HERLINDA 36 ng/mL Normal 16-96 [facility] Comment on above: Performed By: #### B [id number] #### [facility] [address] [place] [address] Dr. Jessie Lomax CBC AUTO DIFFon 08-29-2022 BASO # 0.1 103/ul Normal 0.0-0.1 [facility] Comment on above: Performed By: #### C BC #### [facility] [address] [address] [address] Jessie Lomax Basophils/100 WBC (Bld) 0.7 % Normal 0.2-2.0 [facility] Comment on above: Performed By: #### C BC #### [facility] [address] [place] [address] Dr. Jessie Lomax EO # 0.1 103/ul Normal 0.0-0.7 [facility] Comment on above: Performed By: #### C BC #### [facility] [address] [place] [address] Dr. Jessie Lomax Eosinophils/100 WBC (Bld) 0.8 % Critically low 0.9-7.0 [facility] Comment on above: Performed By: #### C BC #### [facility] [address] [place] [address] Dr. Jessie Lomax Erythrocyte distribution width (RBC) [Ratio] 13.6 % Normal 11.0-15.0 [facility] Comment on above: Performed By: #### C BC #### [facility] [address] [place] [address] Dr. Jessie Lomax Hematocrit (Bld) [Volume fraction] 51.6 % Normal 42.0-54.0 [facility] Comment on above: Performed By: #### C BC #### [facility] [address] [place] [address] Dr. Jessie Lomax Hemoglobin (Bld) [Mass/Vol] 17.1 g/dL Normal 14.0-18.0 [facility] Comment on above: Performed By: #### C BC #### [facility] [address] [place] [address] Dr. Jessie Lomax IG # 0.05 10e3/ul Critically high 0.00-0.03 [facility] Comment on above: Performed By: #### C BC #### [facility] [address] [place] [address] Dr. Jessie Lomax IG % 0.5 % Normal 0.0-0.5 [facility] Comment on above: Performed By: #### C BC #### [facility] [address] [place] [address] Dr. Jessie Lomax LYMPH # 2.1 103/ul Normal 1.2-3.8 [facility] Comment on above: Performed By: #### C BC #### [facility] [address] [place] [address] Dr. Jessie Lomax Lymphocytes/100 WBC (Bld) 20.9 % Normal 20.5-60.0 [facility] Comment on above: Performed By: #### C BC #### [facility] [address] [place] [address] Dr. Jessie Lomax MANUAL DIFF REQ NO Normal [facility] Comment on above: Performed By: #### C BC #### [facility] [address] [place] [address] Dr. Jessie Lomax MCH (RBC) [Entitic mass] 30.7 pg Normal 25.9-34.0 [facility] Comment on above: Performed By: #### C BC #### [facility] [address] [place] [address] Dr. Jessie Lomax MCHC (RBC) [Mass/Vol] 33.1 g/dL Normal 29.9-35.2 [facility] Comment on above: Performed By: #### C BC #### [facility] [address] [place] [address] Dr. Jessie Lomax MCV (RBC) [Entitic vol] 92.6 fL Normal 80.0-94.0 [facility] Comment on above: Performed By: #### C BC #### [facility] [address] [place] [address] Dr. Jessie Lomax MONO # 1.0 103/ul Critically high 0.3-0.8 [facility] Comment on above: Performed By: #### C BC #### [facility] [address] [place] [address] Dr. Jessie Lomax Monocytes/100 WBC (Bld) 9.5 % Normal 1.7-12.0 [facility] Comment on above: Performed By: #### C BC #### [facility] [address] [place] [address] Dr. Jessie Lomax NEUT # 6.7 103/ul Critically high 1.4-6.5 [facility] Comment on above: Performed By: #### C BC #### [facility] [address] [place] [address] Dr. Jessie Lomax Neutrophils/100 WBC (Bld) 67.6 % Normal 43.0-75.0 [facility] Comment on above: Performed By: #### C BC #### [facility] [address] [place] [address] Dr. Jessie Lomax Platelet mean volume (Bld) [Entitic vol] 9.5 fL Normal 9.5-13.5 [facility] Comment on above: Performed By: #### C BC #### [facility] [address] [place] [address] Dr. Jessie Lomax PLT 407 103/ul Normal 150-450 [facility] Comment on above: Performed By: #### C BC #### [facility] [address] [place] [address] Dr. Jessie Lomax RBC 5.57 106/ul Normal 4.70-6.10 [facility] Comment on above: Performed By: #### C BC #### [facility] [address] [place] [address] Dr. Jessie Lomax WBC 10.0 103/ul Normal 4.0-11.0 [facility] Comment on above: Performed By: #### C BC #### [facility] [address] [place] [address] Dr. Jessie Lomax CULTURE BLOODon 08-29-2022 Microscopic examination of blood, culture Culture Observations: NO GROWTH AT 5 DAYS. Normal [facility] Comment on above: Performed By: #### C MP #### [facility] [address] [place] [address] Dr. Jessie Lomax Microscopic examination of blood, culture Culture Observations: NO GROWTH AT 5 DAYS. Normal [facility] Comment on above: Performed By: #### B [id number] #### [facility] [address] [place] [address] Dr. Jessie Lomax [facility] SARS-CoV-2 (COVID-19) RNA YLOANDA+probe Ql (Unsp spec) Not detected Normal NOT DETECTED [facility] Comment on above: Result Comment: When [...] for this test is supported by the [employer]'s declaration that [...] used). Performed By: #### B [id number] #### [facility] [address] [place] [address] Dr. Jessie Lomax ER URINE PROFILEon 3 Bilirubin Ql (U) Negative Normal NEGATIVE [facility] Comment on above: Performed By: #### A CETON #### [facility] [address] [place] [address] Dr. Jessie Lomax Clarity (U) CLEAR Normal CLEAR [facility] Comment on above: Performed By: #### A CETON #### [facility] [address] [place] [address] Dr. Jessie Lomax Color (U) YELLOW Normal YELLOW [facility] Comment on above: Performed By: #### A CETON #### [facility] [address] [place] [address] Dr. Jessie Jara micrscopic examina tion will be performed if indicated. Normal [facility] Comment on above: Performed By: #### A CETON #### [facility] [address] [place] [address] Dr. Jessie Lomax Glucose Ql (U) 500 mg/dl Abnormal NEGATIVE [facility] Comment on above: Performed By: #### A CETON #### [facility] [address] [place] [address] Dr. Jessie Lomax Hemoglobin Ql (U) Negative Normal NEGATIVE [facility] Comment on above: Performed By: #### A CETON #### [facility] [address] [place] [address] Dr. Jessie Lomax Ketones Ql (U) TRACE Abnormal NEGATIVE [facility] Comment on above: Performed By: #### A CETON #### [facility] [address] [place] [address] Dr. Jessie Lomax LEUKOCYTES Negative Normal NEGATIVE [facility] Comment on above: Performed By: #### A CETON #### [facility] [address] [place] [address] Dr. Jessie Lomax Nitrite Ql (U) Negative Normal NEGATIVE [facility] Comment on above: Performed By: #### A CETON #### [facility] [address] [place] [address] Dr. Jessie Lomax pH (U) 5.5 [pH] Normal 5-9 [facility] Comment on above: Performed By: #### A CETON #### [facility] [address] [place] [address] Dr. Jessie Lomax SPEC GRAVITY >=1.030 Abnormal 1.005-<=1. 025 [facility] Comment on above: Performed By: #### A CETON #### [facility] [address] [place] [address] Dr. Jessie Lomax UA PROTEIN Negative Normal NEGATIVE/ TRACE [facility] Comment on above: Performed By: #### A CETON #### [facility] [address] [place] [address] Dr. Jessie Lomax UR MICRO IND NOT INDICATED Normal [facility] Comment on above: Performed By: #### A CETON #### [facility] [address] [place] [address] Dr. Jessie Lomax Urobilinogen Qn (U) 0.2 {Angelique'U}/dL Normal 0.2 - 1. 0 [facility] Comment on above: Performed By: #### A CETON #### [facility] [address] [place] [address] Dr. Jessie Lomax LACTATE/LACTIC ACIDon 2022 Lactate [Moles/Vol] 1.6 mmol/L Normal 0.4-1.9 [facility] Comment on above: Performed By: #### L ACT #### [facility] [address] [place] [address] Dr. Jessie Lomax POINT OF CARE GLUCOSEon 08-18 Glucose [Mass/Vol] 330 mg/dL Critically high 74-106 [facility] Comment on above: Performed By: #### A CETON #### [facility] [address] [place] [address] Dr. Jessie Lomax Glucose [Mass/Vol] 284 mg/dL Critically high -106 [facility] Comment on above: Performed By: #### C BC #### [facility] [address] [place] [address] Dr. Jessie Lomax Glucose [Mass/Vol] 379 mg/dL Critically high -106 [facility] Comment on above: Performed By: #### B [id number] #### [facility] [address] [place] [address] Dr. Jesise Lomax Glucose [Mass/Vol] 276 mg/dL Critically high 74-106 [facility] Comment on above: Performed By: #### T TYLER #### [facility] [address] [place] [address] Dr. Jessie Lomax PROF 14(COMP METB)on 023 Albumin [Mass/Vol] 3.8 g/dL Normal 3.4-5.0 [facility] Comment on above: Performed By: #### B [id number] #### [facility] [address] [place] [address] Dr. Jessie Lomax Albumin/Globulin [Mass ratio] 1.0 {ratio} Normal [facility] Comment on above: Performed By: #### B [id number] #### [facility] [address] [place] [address] Dr. Jessie Lomax ALP [Catalytic activity/Vol] 106 U/L Normal 46-116 [facility] [facility] [place] Comment on above: Performed By: #### B [id number] #### [facility] [address] [place] [address] Dr. Jessie Lomax ALT [Catalytic activity/Vol] 27 U/L Normal 16-63 [facility] Comment on above: Performed By: #### B [id number] #### [facility] [address] [place] [address] Dr. Jessie Lomax Anion gap [Moles/Vol] 12.0 mmol/L Normal [facility] Comment on above: Performed By: #### B [id number] #### [facility] [address] [place] [address] Dr. Jessie Lomax AST [Catalytic activity/Vol] 15 U/L Normal 15-37 [facility] Comment on above: Performed By: #### B [id number] #### [facility] [address] [place] [address] Dr. Jessie Lomax Bilirubin [Mass/Vol] 0.3 mg/dL Normal 0.2-1.0 [facility] Comment on above: Performed By: #### B [id number] #### [facility] [address] [place] [address] Dr. Jessie Lomax Calcium [Mass/Vol] 10.0 mg/dL Normal 8.5-10.1 [facility] Comment on above: Performed By: #### B [id number] #### [facility] [address] [place] [address] Dr. Jessie Lomax Chloride [Moles/Vol] 101 mmol/L Normal 98-107 [facility] Comment on above: Performed By: #### B [id number] #### [facility] [address] [place] [address] Dr. Jessie Lomax CO2 [Moles/Vol] 32.4 mmol/L Critically high 21.0-32.0 [facility] Comment on above: Performed By: #### B [id number] #### [facility] [address] [place] [address] Dr. Jessie Lomax Creatinine [Mass/Vol] 1.14 mg/dL Normal 0.70-1.30 [facility] Comment on above: Performed By: #### B [id number] #### [facility] [address] [place] [address] Dr. Jessie Lomax EGFR-AF SRI LANKAN >60 Normal >=60 [facility] Comment on above: Performed By: #### B [id number] #### [facility] [address] [place] [address] Dr. Jessie Lomax EGFR-NON AF SRI LANKAN >60 Normal >=60 [facility] Comment on above: Performed By: #### B [id number] #### [facility] [address] [place] [address] Dr. Jessie Lomax Globulin (S) [Mass/Vol] 3.7 g/dL Normal [facility] Comment on above: Performed By: #### B [id number] #### [facility] [address] [place] [address] Dr. Jessie Lomax Glucose [Mass/Vol] 204 mg/dL Critically high 74-106 [facility] Comment on above: Performed By: #### B [id number] #### [facility] [address] [place] [address] Dr. Jessie Lomax Potassium [Moles/Vol] 4.4 mmol/L Normal 3.5-5.1 [facility] Comment on above: Performed By: #### B [id number] #### [facility] [address] [place] [address] Dr. Jessie Lomax Protein [Mass/Vol] 7.5 g/dL Normal 6.4-8.2 [facility] Comment on above: Performed By: #### B [id number] #### [facility] [address] [place] [address] Dr. Jessie Lomax Sodium [Moles/Vol] 141 mmol/L Normal 136-145 [facility] Comment on above: Performed By: #### B [id number] #### [facility] [address] [address] [address] Jessie Lomax Urea nitrogen [Mass/Vol] 23.0 mg/dL Critically high 7.0-18.0 [facility] Comment on above: Performed By: #### B [id number] #### [facility] [address] [address] [address] Jessie Lomax Urea nitrogen/Creatinine [Mass ratio] 20.2 mg/mg Normal [facility] Comment on above: Performed By: #### B [id number] #### [facility] [address] [place] [address] Dr. Jessie Lomax THEOPHYLLINEon 08-29-2022 THEOPHYLLINE <2.0 Critically low 10.0-20.0 [facility] Comment on above: Performed By: #### B [id number] #### [facility] [address] [place] [address] Dr. Jessie Lomax XR CHEST 1 Von [...] YADIRA BALLESTEROS Date: 2022-08-29 02:03 Normal [facility] ACETONE SERUMon 08-17-2022 ACETONE Negative Normal NEGATIVE [facility] Comment on above: Performed By: #### A CETON #### [facility] [address] [place] [address] Dr. Jessie Lomax BNPon 08-17-2022 Natriuretic peptide B (Bld) [Mass/Vol] 294.0 pg/mL Normal <=900.0 [facility] Comment on above: Performed By: #### A CETON #### [facility] [address] [place] [address] Dr. Jessie Lomax CBC AUTO DIFFon 08-17-2022 BASO # 0.1 103/ul Normal 0.0-0.1 [facility] Comment on above: Performed By: #### C BC #### [facility] [address] [place] [address] Dr. Jessie Lomax Basophils/100 WBC (Bld) 0.7 % Normal 0.2-2.0 [facility] Comment on above: Performed By: #### C BC #### [facility] [address] [place] [address] Dr. Jessie Lomax EO # 0.1 103/ul Normal 0.0-0.7 [facility] Comment on above: Performed By: #### C BC #### [facility] [address] [place] [address] Dr. Jessie Lomax Eosinophils/100 WBC (Bld) 0.9 % Normal 0.9-7.0 [facility] Comment on above: Performed By: #### C BC #### [facility] [address] [place] [address] Dr. Jessie Lomax Erythrocyte distribution width (RBC) [Ratio] 13.4 % Normal 11.0-15.0 [facility] Comment on above: Performed By: #### C BC #### [facility] [address] [place] [address] Dr. Jessie Lomax Hematocrit (Bld) [Volume fraction] 43.2 % Normal 42.0-54.0 [facility] Comment on above: Performed By: #### C BC #### [facility] [address] [place] [address] Dr. Jessie Lomax Hemoglobin (Bld) [Mass/Vol] 14.5 g/dL Normal 14.0-18.0 [facility] Comment on above: Performed By: #### C BC #### [facility] [address] [place] [address] Dr. Jessie Lomax IG # 0.04 10e3/ul Critically high 0.00-0.03 [facility] Comment on above: Performed By: #### C BC #### [facility] [address] [place] [address] Dr. Jessie Lomax IG % 0.5 % Normal 0.0-0.5 [facility] Comment on above: Performed By: #### C BC #### [facility] [address] [place] [address] Dr. Jessie Lomax LYMPH # 1.9 103/ul Normal 1.2-3.8 [facility] Comment on above: Performed By: #### C BC #### [facility] [address] [place] [address] Dr. Jessie Lomax Lymphocytes/100 WBC (Bld) 22.1 % Normal 20.5-60.0 [facility] Comment on above: Performed By: #### C BC #### [facility] [address] [place] [address] Dr. Jessie Lomax MANUAL DIFF REQ NO Normal [facility] Comment on above: Performed By: #### C BC #### [facility] [address] [place] [address] Dr. Jessie Lomax MCH (RBC) [Entitic mass] 30.7 pg Normal 25.9-34.0 [facility] Comment on above: Performed By: #### C BC #### [facility] [address] [place] [address] Dr. Jessie Lomax MCHC (RBC) [Mass/Vol] 33.6 g/dL Normal 29.9-35.2 [facility] Comment on above: Performed By: #### C BC #### [facility] [address] [place] [address] Dr. Jessie Lomax MCV (RBC) [Entitic vol] 91.5 fL Normal 80.0-94.0 [facility] Comment on above: Performed By: #### C BC #### [facility] [address] [place] [address] Dr. Jessie Lomax MONO # 0.7 103/ul Normal 0.3-0.8 [facility] Comment on above: Performed By: #### C BC #### [facility] [address] [place] [address] Dr. Jessie Lomax Monocytes/100 WBC (Bld) 7.7 % Normal 1.7-12.0 [facility] Comment on above: Performed By: #### C BC #### [facility] [address] [place] [address] Dr. Jessie Lomax NEUT # 5.8 103/ul Normal 1.4-6.5 [facility] Comment on above: Performed By: #### C BC #### [facility] [address] [place] [address] Dr. Jessie Lomax Neutrophils/100 WBC (Bld) 68.1 % Normal 43.0-75.0 [facility] Comment on above: Performed By: #### C BC #### [facility] [address] [place] [address] Dr. Jessie Lomax Platelet mean volume (Bld) [Entitic vol] 9.0 fL Critically low 9.5-13.5 [facility] Comment on above: Performed By: #### C BC #### [facility] [address] [place] [address] Dr. Jessie Lomax PLT 275 103/ul Normal 150-450 [facility] Comment on above: Performed By: #### C BC #### [facility] [address] [place] [address] Dr. Jessie Lomax RBC 4.72 106/ul Normal 4.70-6.10 [facility] Comment on above: Performed By: #### C BC #### [facility] [address] [place] [address] Dr. Jessie Lomax WBC 8.6 103/ul Normal 4.0-11.0 [facility] Comment on above: Performed By: #### C BC #### [facility] [address] [place] [address] Dr. Jessie Lomax CTA CHEST WO W CONon 023 CTA CHEST WO W CON EXAMINATION: CTA BRETT ST WO W CON HISTORY: SHORTNESS OF BREATH [...] DAVID GIBBS Date: 2022-08-17 17:23 Normal [facility] CULTURE BLOODon 08-17-2022 Microscopic examination of blood, culture Culture Observations: NO GROWTH AT 5 DAYS. Normal [facility] Comment on above: Performed By: #### C MP #### [facility] [address] [place] [address] Dr. Jessie Lomax Microscopic examination of blood, culture Culture Observations: NO GROWTH AT 5 DAYS. Normal [facility] Comment on above: Performed By: #### B [id number] #### [facility] [address] [place] [address] Dr. Jessie Lomax [facility] SARS-CoV-2 (COVID-19) RNA YOLANDA+probe Ql (Unsp spec) Not detected Normal NOT DETECTED [facility] Comment on above: Result Comment: When [...] for this test is supported by the Career Advisor of [employer] and Human Service's declaration that [...] used). Performed By: #### C BC #### [facility] [address] [place] [address] Dr. Jessie Lomax LACTATE/LACTIC ACIDon 2022 Lactate [Moles/Vol] 2.0 mmol/L Critically high 0.4-1.9 [facility] Comment on above: Performed By: #### C BC #### [facility] [address] [place] [address] Dr. Jessie Lomax PH VENOUS BLOODon 08-17-2022 PCO2 VENOUS 44.5 mmHg Normal 40.0-52.0 [facility] Comment on above: Performed By: #### C BC #### [facility] [address] [place] [address] Dr. Jessie Lomax pH VENOUS 7.433 Critically high 7.330-7.43 0 [facility] Comment on above: Performed By: #### C BC #### [facility] [address] [place] [address] Dr. Jessie Lomax PROF 14(COMP METB)on 023 Albumin [Mass/Vol] 3.4 g/dL Normal 3.4-5.0 [facility] Comment on above: Performed By: #### C BC #### [facility] [address] [place] [address] Dr. Jessie Lomax Albumin/Globulin [Mass ratio] 1.1 {ratio} Normal [facility] Comment on above: Performed By: #### C BC #### [facility] [address] [place] [address] Dr. Jessie Lomax ALP [Catalytic activity/Vol] 90 U/L Normal 46-116 [facility] Comment on above: Performed By: #### C BC #### [facility] [address] [address] [address] Jessie Lomax ALT [Catalytic activity/Vol] 26 U/L Normal 16-63 [facility] Comment on above: Performed By: #### C BC #### [facility] [address] [address] [address] Jessie Lomax Anion gap [Moles/Vol] 11.1 mmol/L Normal [facility] Comment on above: Performed By: #### C BC #### [facility] [address] [address] [address] Jessie Lomax AST [Catalytic activity/Vol] 9 U/L Critically low 15-37 [facility] Comment on above: Performed By: #### C BC #### [facility] [address] [place] [address] Dr. Jessie Lomax Bilirubin [Mass/Vol] 0.2 mg/dL Normal 0.2-1.0 [facility] Comment on above: Performed By: #### C BC #### [facility] [address] [address] [address] Jessie Lomax Calcium [Mass/Vol] 9.0 mg/dL Normal 8.5-10.1 [facility] Comment on above: Performed By: #### C BC #### [facility] [address] [place] [address] Dr. Jessie Lomax Chloride [Moles/Vol] 103 mmol/L Normal 98-107 [facility] Comment on above: Performed By: #### C BC #### [facility] [address] [address] [address] Jessie Lomax CO2 [Moles/Vol] 31.5 mmol/L Normal 21.0-32.0 [facility] Comment on above: Performed By: #### C BC #### [facility] [address] [place] [address] Dr. Jessie Lomax Creatinine [Mass/Vol] 0.94 mg/dL Normal 0.70-1.30 [facility] Comment on above: Performed By: #### C BC #### [facility] [address] [address] [address] Jessie Lomax EGFR-AF SRI LANKAN >60 Normal >=60 [facility] Comment on above: Performed By: #### C BC #### [facility] [address] [address] [address] Jessie Lomax EGFR-NON AF SRI LANKAN >60 Normal >=60 [facility] Comment on above: Performed By: #### C BC #### [facility] [address] [place] [address] Dr. Jessie Lomax Globulin (S) [Mass/Vol] 3.2 g/dL Normal [facility] Comment on above: Performed By: #### C BC #### [facility] [address] [place] [address] Dr. Jessie Lomax Glucose [Mass/Vol] 124 mg/dL Critically high 74-106 [facility] Comment on above: Performed By: #### C BC #### [facility] [address] [place] [address] Dr. Jessie Lomax Potassium [Moles/Vol] 3.6 mmol/L Normal 3.5-5.1 [facility] Comment on above: Performed By: #### C BC #### [facility] [address] [place] [address] Dr. Jessie Lomax Protein [Mass/Vol] 6.6 g/dL Normal 6.4-8.2 [facility] Comment on above: Performed By: #### C BC #### [facility] [address] [place] [address] Dr. Jessie Lomax Sodium [Moles/Vol] 142 mmol/L Normal 136-145 [facility] Comment on above: Performed By: #### C BC #### [facility] [address] [place] [address] Dr. Jessie Lomax Urea nitrogen [Mass/Vol] 14.0 mg/dL Normal 7.0-18.0 [facility] Comment on above: Performed By: #### C BC #### [facility] [address] [place] [address] Dr. Jessie Lomax Urea nitrogen/Creatinine [Mass ratio] 14.9 mg/mg Normal [facility] Comment on above: Performed By: #### C BC #### [facility] [address] [place] [address] Dr. Jessie Lomax PROTIMEon 08-17-2022 INR Coag (PPP) [Relative time] {INR} Normal [facility] Comment on above: Performed By: #### B [id number] #### [facility] [address] [place] [address] Dr. Jessie Lomax INR GUIDELINES SEE BELOW Normal [facility] Comment on above: Result Comment: VANESSA RED INR: 2.0 - 3.0 CONDITIONS NOT LISTED BELOW 2.5 - 3.5 FOR PROSTHETIC HEART VALVE REPLACEMENT 2.5 - 3.5 RECURRENT THROMBOSIS Performed By: #### B LDCX1 #### [facility] [address] [place] [address] Dr. Jessie Lomax PT Coag (PPP) [Time] 9.7 s Normal 9.0-11.6 [facility] Comment on above: Performed By: #### B [id number] #### [facility] [address] [place] [address] Dr. Jessie Lomax PTTon 08-17-2022 aPTT Coag (Bld) [Time] 23.4 s Normal 22.3-36.2 [facility] Comment on above: Performed By: #### B [id number] #### [facility] [address] [place] [address] Dr. Jessie Lomax TROPONIN, HIGH SENSITIVITYon 08-17-2022 HSTROP 14.6 pg/mL Normal 4.0-76.1 [facility] Comment on above: Result Comment: CUT- OFF POINTS HAVE BEEN ESTABLISHED BASED ON THE FOURTH UNIVERSAL DEFINITIONS OF MYOCARDIAL INFARCTION. THE UPPER REFERENCE LIMIT (URL) OF TROPONIN, DEFINED THE 99TH PERCENTILE OF cTnI DISTRIBUTION IN A REFERENCE POPULATION, HAS BEEN CONFIRMED THE DECISION THRESHOLD FOR AR DIAGNOSIS. Performed By: #### A CETON #### [facility] [address] [place] [address] Dr. Jessie Lomax TSHon 08-17-2022 TSH 1.079 uIU/mL Normal 0.358-3.74 0 [facility] Comment on above: Performed By: #### C BC #### [facility] [address] [place] [address] Dr. Jessie Lomax THEOPHYLLINEon 08-10-2022 THEOPHYLLINE 11.3 ug/mL Normal 10.0-20.0 [facility] Comment on above: Performed By: #### T TYLER #### [facility] [address] [place] [address] Dr. Jessie Lomax CBC AUTO DIFFon 07-02-2022 BASO # 0.0 103/ul Normal 0.0-0.1 [facility] Comment on above: Performed By: #### T TYLER #### [facility] [address] [place] [address] Dr. Jessie Lomax Basophils/100 WBC (Bld) 0.1 % Critically low 0.2-2.0 [facility] Comment on above: Performed By: #### T TYLER #### [facility] [address] [place] [address] Dr. Jessie Lomax EO # 0.0 103/ul Normal 0.0-0.7 [facility] Comment on above: Performed By: #### T TYLER #### [facility] [address] [place] [address] Dr. Jessie Lomax Eosinophils/100 WBC (Bld) 0.1 % Critically low 0.9-7.0 [facility] Comment on above: Performed By: #### T TYLER #### [facility] [address] [place] [address] Dr. Jessie Lomax Erythrocyte distribution width (RBC) [Ratio] 13.6 % Normal 11.0-15.0 [facility] Comment on above: Performed By: #### T TYLER #### [facility] [address] [place] [address] Dr. Jessie Lomax Hematocrit (Bld) [Volume fraction] 44.4 % Normal 42.0-54.0 [facility] Comment on above: Performed By: #### T TYLER #### [facility] [address] [address] [address] Jessie Lomax Hemoglobin (Bld) [Mass/Vol] 14.9 g/dL Normal 14.0-18.0 [facility] Comment on above: Performed By: #### T TYLER #### [facility] [address] [address] [address] Jessie Lomax IG # 0.11 10e3/ul Critically high 0.00-0.03 [facility] Comment on above: Performed By: #### T TYLER #### [facility] [address] [place] [address] Dr. Jessie Lomax IG % 0.7 % Critically high 0.0-0.5 [facility] Comment on above: Performed By: #### T TYLER #### [facility] [address] [place] [address] Dr. Jessie Lomax LYMPH # 0.8 103/ul Critically low 1.2-3.8 [facility] Comment on above: Performed By: #### T TYLER #### [facility] [address] [place] [address] Dr. Jessie Lomax Lymphocytes/100 WBC (Bld) 5.1 % Critically low 20.5-60.0 [facility] Comment on above: Performed By: #### T TYLER #### [facility] [address] [place] [address] Dr. Jessie Lomax MANUAL DIFF REQ NO Normal [facility] Comment on above: Performed By: #### T TYLER #### [facility] [address] [place] [address] Dr. Jessie Lomax MCH (RBC) [Entitic mass] 31.1 pg Normal 25.9-34.0 [facility] Comment on above: Performed By: #### T TYLER #### [facility] [address] [place] [address] Dr. Jessie Lomax MCHC (RBC) [Mass/Vol] 33.6 g/dL Normal 29.9-35.2 [facility] Comment on above: Performed By: #### T TYLER #### [facility] [address] [address] [address] Jessie Lomax MCV (RBC) [Entitic vol] 92.7 fL Normal 80.0-94.0 [facility] Comment on above: Performed By: #### T TYLER #### [facility] [address] [place] [address] Dr. Jessie Loamx MONO # 0.4 103/ul Normal 0.3-0.8 [facility] Comment on above: Performed By: #### T TYLER #### [facility] [address] [place] [address] Dr. Jessie Lomax Monocytes/100 WBC (Bld) 2.6 % Normal 1.7-12.0 [facility] Comment on above: Performed By: #### T TYLER #### [facility] [address] [place] [address] Dr. Jessie Lomax NEUT # 13.8 103/ul Critically high 1.4-6.5 [facility] Comment on above: Performed By: #### T TYLER #### [facility] [address] [place] [address] Dr. Jessie Lomax Neutrophils/100 WBC (Bld) 91.4 % Critically high 43.0-75.0 [facility] Comment on above: Performed By: #### T TYLER #### [facility] [address] [place] [address] Dr. Jessie Lomax Platelet mean volume (Bld) [Entitic vol] 9.9 fL Normal 9.5-13.5 [facility] Comment on above: Performed By: #### T TYLER #### [facility] [address] [place] [address] Dr. Jessie Lomax PLT 300 103/ul Normal 150-450 [facility] Comment on above: Performed By: #### T TYLER #### [facility] [address] [place] [address] Dr. Jessie Lomax RBC 4.79 106/ul Normal 4.70-6.10 [facility] Comment on above: Performed By: #### T TYLER #### [facility] [address] [address] [address] Jessie Lomax WBC 15.1 103/ul Critically high 4.0-11.0 [facility] Comment on above: Performed By: #### T TYLER #### [facility] [address] [place] [address] Dr. Jessie Lomax POINT OF CARE GLUCOSEon 06-17 Glucose [Mass/Vol] 288 mg/dL Critically high 74-106 [facility] Comment on above: Performed By: #### C BC #### [facility] [address] [place] [address] Dr. Jessie Lomax Glucose [Mass/Vol] 280 mg/dL Critically high 74-106 [facility] Comment on above: Performed By: #### T TYLER #### [facility] [address] [place] [address] Dr. Jessie Lomax PROF 14(COMP METB)on 022 Albumin [Mass/Vol] 3.7 g/dL Normal 3.4-5.0 [facility] Comment on above: Performed By: #### C MP #### [facility] [address] [place] [address] Dr. Jessie Lomax Albumin/Globulin [Mass ratio] 1.1 {ratio} Normal [facility] Comment on above: Performed By: #### C MP #### [facility] [address] [place] [address] Dr. Jessie Lomax ALP [Catalytic activity/Vol] 73 U/L Normal 46-116 [facility] Comment on above: Performed By: #### C MP #### [facility] [address] [place] [address] Dr. Jessie Lomax ALT [Catalytic activity/Vol] 22 U/L Normal 16-63 [facility] Comment on above: Performed By: #### C MP #### [facility] [address] [place] [address] Dr. Jessie Lomax Anion gap [Moles/Vol] 13.4 mmol/L Normal [facility] Comment on above: Performed By: #### C MP #### [facility] [address] [address] [address] Jessie Lomax AST [Catalytic activity/Vol] 16 U/L Normal 15-37 [facility] Comment on above: Performed By: #### C MP #### [facility] [address] [place] [address] Dr. Jessie Lomax Bilirubin [Mass/Vol] 0.3 mg/dL Normal 0.2-1.0 [facility] Comment on above: Performed By: #### C MP #### [facility] [address] [place] [address] Dr. Jessie Lomax Calcium [Mass/Vol] 9.3 mg/dL Normal 8.5-10.1 [facility] Comment on above: Performed By: #### C MP #### [facility] [address] [place] [address] Dr. Jessie Lomax Chloride [Moles/Vol] 98 mmol/L Normal 98-107 [facility] Comment on above: Performed By: #### C MP #### [facility] [address] [place] [address] Dr. Jessie Lomax CO2 [Moles/Vol] 29.9 mmol/L Normal 21.0-32.0 [facility] Comment on above: Performed By: #### C MP #### [facility] [address] [place] [address] Dr. Jessie Lomax Creatinine [Mass/Vol] 1.18 mg/dL Normal 0.70-1.30 [facility] Comment on above: Performed By: #### C MP #### [facility] [address] [place] [address] Dr. Jessie Lomax EGFR-AF SRI LANKAN >60 Normal >=60 [facility] Comment on above: Performed By: #### C MP #### [facility] [address] [place] [address] Dr. Jessie Lomax EGFR-NON AF SRI LANKAN >60 Normal >=60 [facility] Comment on above: Performed By: #### C MP #### [facility] [address] [place] [address] Dr. Jessie Lomax Globulin (S) [Mass/Vol] 3.3 g/dL Normal [facility] Comment on above: Performed By: #### C MP #### [facility] [address] [address] [address] Jessie Lomax Glucose [Mass/Vol] 329 mg/dL Critically high 74-106 [facility] Comment on above: Performed By: #### C MP #### [facility] [address] [address] [address] Jessie Lomax Potassium [Moles/Vol] 4.3 mmol/L Normal 3.5-5.1 [facility] Comment on above: Performed By: #### C MP #### [facility] [address] [address] [address] Jessie Lomax Protein [Mass/Vol] 7.0 g/dL Normal 6.4-8.2 [facility] Comment on above: Performed By: #### C MP #### [facility] [address] [place] [address] Dr. Jessie Lomax Sodium [Moles/Vol] 137 mmol/L Normal 136-145 [facility] Comment on above: Performed By: #### C MP #### [facility] [address] [place] [address] Dr. Jessie Lomax Urea nitrogen [Mass/Vol] 21.0 mg/dL Critically high 7.0-18.0 [facility] Comment on above: Performed By: #### C MP #### [facility] [address] [place] [address] Dr. Jessie Lomax Urea nitrogen/Creatinine [Mass ratio] 17.8 mg/mg Normal [facility] Comment on above: Performed By: #### C MP #### [facility] [address] [address] [address] Jessie Lomax CBC W MANUAL DIFFon 07-01-20 22 ATYPICAL LYMPH # Normal [facility] Comment on above: Performed By: #### C BC #### [facility] [address] [place] [address] Dr. Jessie Lomax ATYPICAL LYMPH % Normal [facility] Comment on above: Performed By: #### C BC #### [facility] [address] [place] [address] Dr. Jessie Lomax BAND # 0.1 103/ul Normal 0.0-0.3 [facility] Comment on above: Performed By: #### C BC #### [facility] [address] [place] [address] Dr. Jessie Lomax BAND % 1 % Normal 0-5 [facility] Comment on above: Performed By: #### C BC #### [facility] [address] [place] [address] Dr. Jessie Lomax BASOM # 0.00 103/ul Normal 0.00-0.10 [facility] Comment on above: Performed By: #### C BC #### [facility] [address] [place] [address] Dr. Jessie Lomax BASOM % 0.0 % Critically low 0.2-2.0 [facility] Comment on above: Performed By: #### C BC #### [facility] [address] [place] [address] Dr. Jessie Lomax BLAST # Normal [facility] Comment on above: Performed By: #### C BC #### [facility] [address] [place] [address] Dr. Jessie Lomax BLAST % Normal [facility] Comment on above: Performed By: #### C BC #### [facility] [address] [place] [address] Dr. Jessie Lomax CORRECTED WBC Normal 4.0-11.0 [facility] Comment on above: Performed By: #### C BC #### [facility] [address] [place] [address] Dr. Jessie Lomax EOS # 0.12 103/ul Normal 0.00-0.70 [facility] Comment on above: Performed By: #### C BC #### [facility] [address] [place] [address] Dr. Jessie Lomax EOS% 1.0 % Normal 0.9-7.0 [facility] Comment on above: Performed By: #### C BC #### [facility] [address] [place] [address] Dr. Jessie Lomax HCT 45.4 % Normal 42.0-54.0 [facility] Comment on above: Performed By: #### C BC #### [facility] [address] [place] [address] Dr. Jessie Lomax HGB 15.5 g/dl Normal 14.0-18.0 [facility] Comment on above: Performed By: #### C BC #### [facility] [address] [place] [address] Dr. Jessie Lomax LYMPHM # 0.48 103/ul Critically low 1.20-3.80 [facility] Comment on above: Performed By: #### C BC #### [facility] [address] [place] [address] Dr. Jessie Lomax LYMPHM% 4.0 % Critically low 20.5-60.0 [facility] Comment on above: Performed By: #### C BC #### [facility] [address] [place] [address] Dr. Jessie Lomax MCH 31.8 pg Normal 25.9-34.0 [facility] Comment on above: Performed By: #### C BC #### [facility] [address] [place] [address] Dr. Jessie Lomax MCHC 34.1 g/dl Normal 29.9-35.2 [facility] Comment on above: Performed By: #### C BC #### [facility] [address] [place] [address] Dr. Jessie Lomax MCV 93.0 fL Normal 80.0-94.0 [facility] Comment on above: Performed By: #### C BC #### [facility] [address] [place] [address] Dr. Jessie Lomax METAMYELOCYTE # Normal [facility] Comment on above: Performed By: #### C BC #### [facility] [address] [place] [address] Dr. Jessie Lomax METAMYELOCYTE % Normal [facility] Comment on above: Performed By: #### C BC #### [facility] [address] [place] [address] Dr. Jessie Lomax MONOM# 0.24 103/ul Critically low 0.30-0.80 [facility] Comment on above: Performed By: #### C BC #### [facility] [address] [place] [address] Dr. Jessie Lomax MONOM% 2.0 % Normal 1.7-12.0 [facility] Comment on above: Performed By: #### C BC #### [facility] [address] [place] [address] Dr. Jessie Lomax MPV 9.6 fL Normal 9.5-13.5 [facility] Comment on above: Performed By: #### C BC #### [facility] [address] [place] [address] Dr. Jessie Lomax MYELOCYTE # Normal [facility] Comment on above: Performed By: #### C BC #### [facility] [address] [place] [address] Dr. Jessie Lomax MYELOCYTE % Normal [facility] Comment on above: Performed By: #### C BC #### [facility] [address] [place] [address] Dr. Jessie Lomax NRBC Normal [facility] Comment on above: Performed By: #### C BC #### [facility] [address] [place] [address] Dr. Jessie Lomax PLT 300 103/ul Normal 150-450 [facility] Comment on above: Performed By: #### C BC #### [facility] [address] [place] [address] Dr. Jessie Lomax RBC 4.88 106/ul Normal 4.70-6.10 [facility] Comment on above: Performed By: #### C BC #### [facility] [address] [place] [address] Dr. Jessie Lomax RDW 13.5 % Normal 11.0-15.0 [facility] Comment on above: Performed By: #### C BC #### [facility] [address] [place] [address] Dr. Jessie Lomax SEG # 10.95 103/ul Critically high 1.40-6.50 [facility] Comment on above: Performed By: #### C BC #### [facility] [address] [place] [address] Dr. Jessie Lomax SEG % 92.0 % Critically high 43.0-75.0 [facility] Comment on above: Performed By: #### C BC #### [facility] [address] [place] [address] Dr. Jessie Lomax WBC 11.9 103/ul Critically high 4.0-11.0 [facility] Comment on above: Performed By: #### C BC #### [facility] [address] [place] [address] Dr. Jessie Lomax POINT OF CARE GLUCOSEon 06-17 Glucose [Mass/Vol] 428 mg/dL Critically high 74-106 [facility] Comment on above: Performed By: #### A CETON #### [facility] [address] [place] [address] Dr. Jessie Lomax Glucose [Mass/Vol] 337 mg/dL Critically high 74-106 [facility] Comment on above: Performed By: #### B LDCX1 #### [facility] [address] [place] [address] Dr. Jessie Lomax Glucose [Mass/Vol] 233 mg/dL Critically high 74-106 [facility] Comment on above: Performed By: #### B LDCX1 #### [facility] [address] [place] [address] Dr. Jessie Lomax PROF 14(COMP METB)on 022 Albumin [Mass/Vol] 3.7 g/dL Normal 3.4-5.0 [facility] Comment on above: Performed By: #### C MP #### [facility] [address] [place] [address] Dr. Jessie Lomax Albumin/Globulin [Mass ratio] 1.1 {ratio} Normal [facility] Comment on above: Performed By: #### C MP #### [facility] [address] [place] [address] Dr. Jessie Lomax ALP [Catalytic activity/Vol] 86 U/L Normal 46-116 [facility] Comment on above: Performed By: #### C MP #### [facility] [address] [place] [address] Dr. Jessie Lomax ALT [Catalytic activity/Vol] 20 U/L Normal 16-63 [facility] Comment on above: Performed By: #### C MP #### [facility] [address] [place] [address] Dr. Jessie Lomax Anion gap [Moles/Vol] 13.8 mmol/L Normal [facility] Comment on above: Performed By: #### C MP #### [facility] [address] [place] [address] Dr. Jessie Lomax AST [Catalytic activity/Vol] 10 U/L Critically low 15-37 [facility] Comment on above: Performed By: #### C MP #### [facility] [address] [place] [address] Dr. Jessie Lomax Bilirubin [Mass/Vol] 0.3 mg/dL Normal 0.2-1.0 [facility] Comment on above: Performed By: #### C MP #### [facility] [address] [place] [address] Dr. Jessie Lomax Calcium [Mass/Vol] 9.3 mg/dL Normal 8.5-10.1 [facility] Comment on above: Performed By: #### C MP #### [facility] [address] [place] [address] Dr. Jessie Lomax Chloride [Moles/Vol] 101 mmol/L Normal 98-107 [facility] Comment on above: Performed By: #### C MP #### [facility] [address] [place] [address] Dr. Jessie Lomax CO2 [Moles/Vol] 27.0 mmol/L Normal 21.0-32.0 [facility] Comment on above: Performed By: #### C MP #### [facility] [address] [place] [address] Dr. Jessie Lomax Creatinine [Mass/Vol] 1.15 mg/dL Normal 0.70-1.30 [facility] Comment on above: Performed By: #### C MP #### [facility] [address] [address] [address] Jessie Lomax EGFR-AF SRI LANKAN >60 Normal >=60 [facility] Comment on above: Performed By: #### C MP #### [facility] [address] [place] [address] Dr. Jessie Lomax EGFR-NON AF SRI LANKAN >60 Normal >=60 [facility] Comment on above: Performed By: #### C MP #### [facility] [address] [address] [address] Jessie Lomax Globulin (S) [Mass/Vol] 3.5 g/dL Normal [facility] Comment on above: Performed By: #### C MP #### [facility] [address] [place] [address] Dr. Jessie Lomax Glucose [Mass/Vol] 284 mg/dL Critically high 74-106 [facility] Comment on above: Performed By: #### C MP #### [facility] [address] [place] [address] Dr. Jessie Lomax Potassium [Moles/Vol] 4.8 mmol/L Normal 3.5-5.1 [facility] Comment on above: Performed By: #### C MP #### [facility] [address] [place] [address] Dr. Jessie Lomax Protein [Mass/Vol] 7.2 g/dL Normal 6.4-8.2 [facility] Comment on above: Performed By: #### C MP #### [facility] [address] [place] [address] Dr. Jessie Lomax Sodium [Moles/Vol] 137 mmol/L Normal 136-145 [facility] Comment on above: Performed By: #### C MP #### [facility] [address] [place] [address] Dr. Jessie Lomax Urea nitrogen [Mass/Vol] 22.0 mg/dL Critically high 7.0-18.0 [facility] Comment on above: Performed By: #### C MP #### [facility] [address] [place] [address] Dr. Jessie Lomax Urea nitrogen/Creatinine [Mass ratio] 19.1 mg/mg Normal [facility] Comment on above: Performed By: #### C MP #### [facility] [address] [place] [address] Dr. Jessie Lomax ACETONE SERUMon 06-30-2022 ACETONE Negative Normal NEGATIVE [facility] Comment on above: Performed By: #### A CETON #### [facility] [address] [place] [address] Dr. Jessie Lomax BNPon 06-30-2022 Natriuretic peptide B (Bld) [Mass/Vol] 45.0 pg/mL Normal <=900.0 [facility] Comment on above: Performed By: #### T TYLER #### [facility] [address] [place] [address] Dr. Jessie Lomax CBC AUTO DIFFon 06-30-2022 BASO # 0.1 103/ul Normal 0.0-0.1 [facility] Comment on above: Performed By: #### C MP #### [facility] [address] [place] [address] Dr. Jessie Lomax Basophils/100 WBC (Bld) 0.9 % Normal 0.2-2.0 [facility] Comment on above: Performed By: #### C MP #### [facility] [address] [place] [address] Dr. Jessie Lomax EO # 0.1 103/ul Normal 0.0-0.7 [facility] Comment on above: Performed By: #### C MP #### [facility] [address] [place] [address] Dr. Jessie Lomax Eosinophils/100 WBC (Bld) 0.9 % Normal 0.9-7.0 [facility] Comment on above: Performed By: #### C MP #### [facility] [address] [place] [address] Dr. Jessie Lomax Erythrocyte distribution width (RBC) [Ratio] 13.4 % Normal 11.0-15.0 [facility] Comment on above: Performed By: #### C MP #### [facility] [address] [place] [address] Dr. Jessie Lomax Hematocrit (Bld) [Volume fraction] 47.0 % Normal 42.0-54.0 [facility] Comment on above: Performed By: #### C MP #### [facility] [address] [place] [address] Dr. Jessie Lomax Hemoglobin (Bld) [Mass/Vol] 16.0 g/dL Normal 14.0-18.0 [facility] Comment on above: Performed By: #### C MP #### [facility] [address] [place] [address] Dr. Jessie Lomax IG # 0.05 10e3/ul Critically high 0.00-0.03 [facility] Comment on above: Performed By: #### C MP #### [facility] [address] [place] [address] Dr. Jessie Lomax IG % 0.5 % Normal 0.0-0.5 [facility] Comment on above: Performed By: #### C MP #### [facility] [address] [place] [address] Dr. Jessie Lomax LYMPH # 2.0 103/ul Normal 1.2-3.8 [facility] Comment on above: Performed By: #### C MP #### [facility] [address] [place] [address] Dr. Jessie Lomax Lymphocytes/100 WBC (Bld) 20.1 % Critically low 20.5-60.0 [facility] Comment on above: Performed By: #### C MP #### [facility] [address] [place] [address] Dr. Jessie Lomax MANUAL DIFF REQ NO Normal [facility] Comment on above: Performed By: #### C MP #### [facility] [address] [place] [address] Dr. Jessie Lomax MCH (RBC) [Entitic mass] 31.5 pg Normal 25.9-34.0 [facility] Comment on above: Performed By: #### C MP #### [facility] [address] [address] [address] Jessie Lomax MCHC (RBC) [Mass/Vol] 34.0 g/dL Normal 29.9-35.2 [facility] Comment on above: Performed By: #### C MP #### [facility] [address] [address] [address] Jessie Lomax MCV (RBC) [Entitic vol] 92.5 fL Normal 80.0-94.0 [facility] Comment on above: Performed By: #### C MP #### [facility] [address] [address] [address] Jessie Lomax MONO # 0.7 103/ul Normal 0.3-0.8 [facility] Comment on above: Performed By: #### C MP #### [facility] [address] [place] [address] Dr. Jessie Lomax Monocytes/100 WBC (Bld) 6.8 % Normal 1.7-12.0 [facility] Comment on above: Performed By: #### C MP #### [facility] [address] [place] [address] Dr. Jessie Lomax NEUT # 6.9 103/ul Critically high 1.4-6.5 [facility] Comment on above: Performed By: #### C MP #### [facility] [address] [place] [address] Dr. Jessie Lomax Neutrophils/100 WBC (Bld) 70.8 % Normal 43.0-75.0 [facility] Comment on above: Performed By: #### C MP #### [facility] [address] [place] [address] Dr. Jessie Lomax Platelet mean volume (Bld) [Entitic vol] 9.5 fL Normal 9.5-13.5 [facility] Comment on above: Performed By: #### C MP #### [facility] [address] [place] [address] Dr. Jessie Lomax PLT 308 103/ul Normal 150-450 [facility] Comment on above: Performed By: #### C MP #### [facility] [address] [place] [address] Dr. Jessie Lomax RBC 5.08 106/ul Normal 4.70-6.10 [facility] Comment on above: Performed By: #### C MP #### [facility] [address] [place] [address] Dr. Jessie Lomax WBC 9.7 103/ul Normal 4.0-11.0 [facility] Comment on above: Performed By: #### C MP #### [facility] [address] [place] [address] Dr. Jessie Lomax CULTURE BLOODon 06-30-2022 Microscopic examination of blood, culture Culture Observations: NO GROWTH AT 5 DAYS. Normal [facility] Comment on above: Performed By: #### B [id number] #### [facility] [address] [place] [address] Dr. Jessie Lomax Microscopic examination of blood, culture Culture Observations: NO GROWTH AT 5 DAYS. Normal [facility] Comment on above: Performed By: #### B [id number] #### [facility] [address] [place] [address] Dr. Jessie Lomax [facility] SARS-CoV-2 (COVID-19) RNA YOLANDA+probe Ql (Unsp spec) Not detected Normal NOT DETECTED [facility] Comment on above: Result Comment: When diagnostic [...] for this test is supported by the Career Advisor of [employer] and Human Service's declaration that [...] used). Performed By: #### B [id number] #### [facility] [address] [place] [address] Dr. eJssie Lomax D-DIMERon 06-30-2022 D-DIMER 0.26 mg/L FEU Normal <=0.59 [facility] Comment on above: Performed By: #### C BC #### [facility] [address] [place] [address] Dr. Jessie Lomax D-DIMER COMMENTS SEE BELOW Normal [facility] Comment on above: Result Comment: Incr [...] hospitalization. Performed By: #### C BC #### [facility] [address] [place] [address] Dr. Jessie Lomax LACTATE/LACTIC ACIDon 2021 Lactate [Moles/Vol] 1.7 mmol/L Normal 0.4-1.9 [facility] Comment on above: Performed By: #### B [id number] #### [facility] [address] [place] [address] Dr. Jessie Lomax PH VENOUS BLOODon 06-30-2022 PCO2 VENOUS 54.1 mmHg Critically high 40.0-52.0 [facility] Comment on above: Performed By: #### B [id number] #### [facility] [address] [place] [address] Dr. Jessie Lomax pH VENOUS 7.323 Critically low 7.330-7.43 0 [facility] Comment on above: Performed By: #### B [id number] #### [facility] [address] [place] [address] Dr. Jessie Lomax PROF 14(COMP METB)on 022 Albumin [Mass/Vol] 3.9 g/dL Normal 3.4-5.0 [facility] Comment on above: Performed By: #### T TYLER #### [facility] [address] [address] [address] Jessie Lomax Albumin/Globulin [Mass ratio] 1.1 {ratio} Normal [facility] Comment on above: Performed By: #### T TYLER #### [facility] [address] [place] [address] Dr. Jessie Lomax ALP [Catalytic activity/Vol] 96 U/L Normal 46-116 [facility] Comment on above: Performed By: #### T TYLER #### [facility] [address] [address] [address] Jessie Lomax ALT [Catalytic activity/Vol] 19 U/L Normal 16-63 [facility] Comment on above: Performed By: #### T TYLER #### [facility] [address] [place] [address] Dr. Jessie Lomax Anion gap [Moles/Vol] 4.5 mmol/L Normal [facility] Comment on above: Performed By: #### T TYLER #### [facility] [address] [place] [address] Dr. Jessie Lomax AST [Catalytic activity/Vol] 13 U/L Critically low 15-37 [facility] Comment on above: Performed By: #### T TYLER #### [facility] [address] [place] [address] Dr. Jessie Lomax Bilirubin [Mass/Vol] 0.4 mg/dL Normal 0.2-1.0 [facility] Comment on above: Performed By: #### T TYLER #### [facility] [address] [address] [address] Jessie Lomax Calcium [Mass/Vol] 9.2 mg/dL Normal 8.5-10.1 [facility] Comment on above: Performed By: #### T TYLER #### [facility] [address] [address] [address] Jessie Lomax Chloride [Moles/Vol] 103 mmol/L Normal 98-107 [facility] Comment on above: Performed By: #### T TYLER #### [facility] [address] [address] [address] Jessie Lomax CO2 [Moles/Vol] 26.3 mmol/L Normal 21.0-32.0 [facility] Comment on above: Performed By: #### T TYLER #### [facility] [address] [address] [address] Jessie Lomax Creatinine [Mass/Vol] 1.06 mg/dL Normal 0.70-1.30 [facility] Comment on above: Performed By: #### T TYLER #### [facility] [address] [place] [address] Dr. Jessie Lomax EGFR-AF SRI LANKAN >60 Normal >=60 [facility] Comment on above: Performed By: #### T TYLER #### [facility] [address] [place] [address] Dr. Jessie Lomax EGFR-NON AF SRI LANKAN >60 Normal >=60 [facility] Comment on above: Performed By: #### T TYLER #### [facility] [address] [place] [address] Dr. Jessie Lomax Globulin (S) [Mass/Vol] 3.5 g/dL Normal [facility] Comment on above: Performed By: #### T TYLER #### [facility] [address] [place] [address] Dr. Jessie Lomax Glucose [Mass/Vol] 221 mg/dL Critically high 74-106 [facility] Comment on above: Performed By: #### T TYLER #### [facility] [address] [place] [address] Dr. Jessie Lomax Potassium [Moles/Vol] 4.6 mmol/L Normal 3.5-5.1 [facility] Comment on above: Performed By: #### T TYLER #### [facility] [address] [place] [address] Dr. Jessie Lomax Protein [Mass/Vol] 7.4 g/dL Normal 6.4-8.2 [facility] Comment on above: Performed By: #### T TYLER #### [facility] [address] [place] [address] Dr. Jessie Lomax Sodium [Moles/Vol] 138 mmol/L Normal 136-145 [facility] Comment on above: Performed By: #### T TYLER #### [facility] [address] [place] [address] Dr. Jessie Lomax Urea nitrogen [Mass/Vol] 23.0 mg/dL Critically high 7.0-18.0 [facility] Comment on above: Performed By: #### T TYLER #### [facility] [address] [place] [address] Dr. Jessie Lomax Urea nitrogen/Creatinine [Mass ratio] 20.2 mg/mg Normal [facility] Comment on above: Performed By: #### T TYLER #### [facility] [address] [place] [address] Dr. Jessie Lomax PROTIMEon 06-30-2022 INR Coag (PPP) [Relative time] 0.93 {INR} Normal [facility] Comment on above: Performed By: #### A CETON #### [facility] [address] [place] [address] Dr. Jessie Lomax INR GUIDELINES SEE BELOW Normal [facility] Comment on above: Result Comment: VANESSA RED INR: 2.0 - 3.0 CONDITIONS NOT LISTED BELOW 2.5 - 3.5 FOR PROSTHETIC HEART VALVE REPLACEMENT 2.5 - 3.5 RECURRENT THROMBOSIS Performed By: #### A CETON #### [facility] [address] [place] [address] Dr. Jessie Lomax PT Coag (PPP) [Time] 10.1 s Normal 9.0-11.6 [facility] Comment on above: Performed By: #### A CETON #### [facility] [address] [place] [address] Dr. Jessie Lomax PTTon 06-30-2022 aPTT Coag (Bld) [Time] 25.1 s Normal 22.3-36.2 [facility] Comment on above: Performed By: #### B [id number] #### [facility] [address] [place] [address] Dr. Jessie Lomax TROPONIN, HIGH SENSITIVITYon 06-30-2022 HSTROP 11.4 pg/mL Normal 4.0-76.1 [facility] Comment on above: Result Comment: CUT- OFF POINTS HAVE BEEN ESTABLISHED BASED ON THE FOURTH UNIVERSAL DEFINITIONS OF MYOCARDIAL INFARCTION. THE UPPER REFERENCE LIMIT (URL) OF TROPONIN, DEFINED THE 99TH PERCENTILE OF cTnI DISTRIBUTION IN A REFERENCE POPULATION, HAS BEEN CONFIRMED THE DECISION THRESHOLD FOR AR DIAGNOSIS. Performed By: #### T TYLER #### [facility] [address] [place] [address] Dr. Jessie Lomax XR CHEST 1 Von [...] SOLA SHELL Date: 2022-06-30 21:00 Normal [facility] BNPon 05-02-2022 Natriuretic peptide B (Bld) [Mass/Vol] 90.0 pg/mL Normal <=900.0 [facility] Comment on above: Performed By: #### B [id number] #### [facility] [address] [place] [address] Dr. Jessie Lomax CARDIAC JUSTINE ADMITon 022 CK [Catalytic activity/Vol] 84 U/L Normal 39-308 [facility] Comment on above: Performed By: #### B [id number] #### [facility] [address] [place] [address] Dr. Jessie Lomax CK.MB [Mass/Vol] 3.74 ng/mL Critically high <=3.60 [facility] Comment on above: Performed By: #### B [id number] #### [facility] [address] [place] [address] Dr. Jessie Lomax HSTROP 14.1 pg/mL Normal 4.0-76.1 [facility] Comment on above: Result Comment: CUT- OFF POINTS HAVE BEEN ESTABLISHED BASED ON THE FOURTH UNIVERSAL DEFINITIONS OF MYOCARDIAL INFARCTION. THE UPPER REFERENCE LIMIT (URL) OF TROPONIN, DEFINED THE 99TH PERCENTILE OF cTnI DISTRIBUTION IN A REFERENCE POPULATION, HAS BEEN CONFIRMED THE DECISION THRESHOLD FOR AR DIAGNOSIS. Performed By: #### B [id number] #### [facility] [address] [place] [address] Dr. Jessie Lomax HERLINDA 55 ng/mL Normal 16-96 [facility] Comment on above: Performed By: #### B [id number] #### [facility] [address] [place] [address] Dr. Jessie Lomax CBC AUTO DIFFon 05-02-2022 BASO # 0.1 103/ul Normal 0.0-0.1 [facility] Comment on above: Performed By: #### C BC #### [facility] [address] [place] [address] Dr. Jessie Lomax Basophils/100 WBC (Bld) 0.5 % Normal 0.2-2.0 [facility] Comment on above: Performed By: #### C BC #### [facility] [address] [place] [address] Dr. Jessie Lomax EO # 0.0 103/ul Normal 0.0-0.7 [facility] Comment on above: Performed By: #### C BC #### [facility] [address] [place] [address] Dr. Jessie Lomax Eosinophils/100 WBC (Bld) 0.3 % Critically low 0.9-7.0 [facility] Comment on above: Performed By: #### C BC #### [facility] [address] [place] [address] Dr. Jessie Lomax Erythrocyte distribution width (RBC) [Ratio] 13.6 % Normal 11.0-15.0 [facility] Comment on above: Performed By: #### C BC #### [facility] [address] [place] [address] Dr. Jessie Lomax Hematocrit (Bld) [Volume fraction] 46.1 % Normal 42.0-54.0 [facility] Comment on above: Performed By: #### C BC #### [facility] [address] [place] [address] Dr. Jessie Lomax Hemoglobin (Bld) [Mass/Vol] 15.6 g/dL Normal 14.0-18.0 [facility] Comment on above: Performed By: #### C BC #### [facility] [address] [place] [address] Dr. Jessie Lomax IG # 0.07 10e3/ul Critically high 0.00-0.03 [facility] Comment on above: Performed By: #### C BC #### [facility] [address] [place] [address] Dr. Jessie Lomax IG % 0.6 % Critically high 0.0-0.5 [facility] Comment on above: Performed By: #### C BC #### [facility] [address] [place] [address] Dr. Jessie Lomax LYMPH # 2.0 103/ul Normal 1.2-3.8 [facility] Comment on above: Performed By: #### C BC #### [facility] [address] [place] [address] Dr. Jessie Lomax Lymphocytes/100 WBC (Bld) 16.0 % Critically low 20.5-60.0 [facility] Comment on above: Performed By: #### C BC #### [facility] [address] [place] [address] Dr. Jessie Lomax MANUAL DIFF REQ NO Normal [facility] Comment on above: Performed By: #### C BC #### [facility] [address] [place] [address] Dr. Jessie Lomax MCH (RBC) [Entitic mass] 31.7 pg Normal 25.9-34.0 [facility] Comment on above: Performed By: #### C BC #### [facility] [address] [place] [address] Dr. Jessie Lomax MCHC (RBC) [Mass/Vol] 33.8 g/dL Normal 29.9-35.2 [facility] Comment on above: Performed By: #### C BC #### [facility] [address] [place] [address] Dr. Jessie Lomax MCV (RBC) [Entitic vol] 93.7 fL Normal 80.0-94.0 [facility] Comment on above: Performed By: #### C BC #### [facility] [address] [place] [address] Dr. Jessie Lomax MONO # 0.8 103/ul Normal 0.3-0.8 [facility] Comment on above: Performed By: #### C BC #### [facility] [address] [place] [address] Dr. Jessie Lomax Monocytes/100 WBC (Bld) 6.2 % Normal 1.7-12.0 [facility] Comment on above: Performed By: #### C BC #### [facility] [address] [place] [address] Dr. Jessie Lomax NEUT # 9.5 103/ul Critically high 1.4-6.5 [facility] Comment on above: Performed By: #### C BC #### [facility] [address] [place] [address] Dr. Jessie Lomax Neutrophils/100 WBC (Bld) 76.4 % Critically high 43.0-75.0 [facility] Comment on above: Performed By: #### C BC #### [facility] [address] [place] [address] Dr. Jessie Lomax Platelet mean volume (Bld) [Entitic vol] 9.6 fL Normal 9.5-13.5 [facility] Comment on above: Performed By: #### C BC #### [facility] [address] [place] [address] Dr. Jessie Lomax PLT 338 103/ul Normal 150-450 [facility] Comment on above: Performed By: #### C BC #### [facility] [address] [place] [address] Dr. Jessie Lomax RBC 4.92 106/ul Normal 4.70-6.10 [facility] Comment on above: Performed By: #### C BC #### [facility] [address] [place] [address] Dr. Jessie Lomax WBC 12.4 103/ul Critically high 4.0-11.0 [facility] Comment on above: Performed By: #### C BC #### [facility] [address] [place] [address] Dr. Jessie Lomax Covid-19 PCR ([facility])on 04-17 SARS-CoV-2 (COVID-19) RNA YOLANDA+probe Ql (Unsp spec) Not detected Normal NOT DETECTED [facility] Comment on above: Result Comment: When [...] for this test is supported by the [employer]'s declaration that [...] used). Performed By: #### C MP #### [facility] [address] [place] [address] Dr. Jessie Lomax PROF 14(COMP METB)on 022 Albumin [Mass/Vol] 3.5 g/dL Normal 3.4-5.0 [facility] Comment on above: Performed By: #### B [id number] #### [facility] [address] [place] [address] Dr. Jessie Lomax Albumin/Globulin [Mass ratio] 1.0 {ratio} Normal [facility] Comment on above: Performed By: #### B [id number] #### [facility] [address] [place] [address] Dr. Jessie Lomax ALP [Catalytic activity/Vol] 104 U/L Normal 46-116 [facility] Comment on above: Performed By: #### B [id number] #### [facility] [address] [address] [address] Jessie Lomax ALT [Catalytic activity/Vol] 21 U/L Normal 16-63 [facility] Comment on above: Performed By: #### B [id number] #### [facility] [address] [address] [address] Jessie Lomax Anion gap [Moles/Vol] 11.7 mmol/L Normal [facility] Comment on above: Performed By: #### B [id number] #### [facility] [address] [address] [address] Jessie Lomax AST [Catalytic activity/Vol] U/L Critically low 15-37 [facility] Comment on above: Performed By: #### B [id number] #### [facility] [address] [place] [address] Dr. Jessie Lomax Bilirubin [Mass/Vol] 0.2 mg/dL Normal 0.2-1.0 [facility] Comment on above: Performed By: #### B [id number] #### [facility] [address] [place] [address] Dr. Jessie Lomax Calcium [Mass/Vol] 8.9 mg/dL Normal 8.5-10.1 [facility] Comment on above: Performed By: #### B [id number] #### [facility] [address] [place] [address] Dr. Jessie Lomax Chloride [Moles/Vol] 99 mmol/L Normal 98-107 [facility] Comment on above: Performed By: #### B [id number] #### [facility] [address] [address] [address] Jessie Lomax CO2 [Moles/Vol] 30.4 mmol/L Normal 21.0-32.0 [facility] Comment on above: Performed By: #### B [id number] #### [facility] [address] [address] [address] Jessie Lomax Creatinine [Mass/Vol] 1.29 mg/dL Normal 0.70-1.30 [facility] Comment on above: Performed By: #### B [id number] #### [facility] [address] [place] [address] Dr. Jessie Lomax EGFR-AF SRI LANKAN >60 Normal >=60 [facility] Comment on above: Performed By: #### B [id number] #### [facility] [address] [address] [address] Jessie Lomax EGFR-NON AF SRI LANKAN 56 mL/min/1.73m2 Critically low >=60 [facility] Comment on above: Performed By: #### B [id number] #### [facility] [address] [address] [address] Jessie Lomax Globulin (S) [Mass/Vol] 3.4 g/dL Normal [facility] Comment on above: Performed By: #### B [id number] #### [facility] [address] [place] [address] Dr. Jessie Lomax Glucose [Mass/Vol] 310 mg/dL Critically high 74-106 [facility] Comment on above: Performed By: #### B [id number] #### [facility] [address] [place] [address] Dr. Jessie Lomax Potassium [Moles/Vol] 4.1 mmol/L Normal 3.5-5.1 [facility] Comment on above: Performed By: #### B [id number] #### [facility] [address] [place] [address] Dr. Jessie Lomax Protein [Mass/Vol] 6.9 g/dL Normal 6.4-8.2 [facility] Comment on above: Performed By: #### B [id number] #### [facility] [address] [place] [address] Dr. Jessie Lomax Sodium [Moles/Vol] 137 mmol/L Normal 136-145 [facility] Comment on above: Performed By: #### B [id number] #### [facility] [address] [place] [address] Dr. Jessie Lomax Urea nitrogen [Mass/Vol] 16.0 mg/dL Normal 7.0-18.0 [facility] Comment on above: Performed By: #### B [id number] #### [facility] [address] [place] [address] Dr. Jessie Lomax Urea nitrogen/Creatinine [Mass ratio] 12.4 mg/mg Normal [facility] Comment on above: Performed By: #### B [id number] #### [facility] [address] [place], [place] [id number] Dr. Jessie Lomax PROTIMEon 05-02-2022 INR Coag (PPP) [Relative time] {INR} Normal [facility] Comment on above: Performed By: #### T TYLER #### [facility] [address] [place] [address] Dr. Jessie Lomax INR GUIDELINES SEE BELOW Normal [facility] Comment on above: Result Comment: VANESSA RED INR: 2.0 - 3.0 CONDITIONS NOT LISTED BELOW 2.5 - 3.5 FOR PROSTHETIC HEART VALVE REPLACEMENT 2.5 - 3.5 RECURRENT THROMBOSIS Performed By: #### T TYLER #### [facility] [address] [place] [address] Dr. Jessie Lomax PT Coag (PPP) [Time] 9.8 s Normal 9.0-11.6 [facility] Comment on above: Performed By: #### T TYLER #### [facility] [address] [place] [address] Dr. Jessie Lomax PTTon 05-02-2022 aPTT Coag (Bld) [Time] 23.0 s Normal 22.3-36.2 [facility] Comment on above: Performed By: #### T TYLER #### [facility] [address] [place] [address] Dr. Jessie Lomax XR CHEST 1 Von [...] GERARD ESPANA Date: 2022-05-02 08:55 Normal [facility] Covid-19 PCR ([facility])on 04-17 SARS-CoV-2 (COVID-19) RNA YOLANDA+probe Ql (Unsp spec) Not detected Normal NOT DETECTED [facility] Comment on above: Result Comment: This test is not yet approved or cleared by the [place] FDA. When there are no FDA-approved or cleared tests available, and other criteria are met, FDA can make tests available under an emergency access mechanism called an Emergency Use Authorization (EUA). The EUA for this test is supported by the [employer]'s (HHS's) declaration [...] SARS-CoV-2. Performed By: #### A CETON #### [facility] [address] [place] [address] Dr. Jessie Lomax CBC AUTO DIFFon 03-19-2022 BASO # 0.0 103/ul Normal 0.0-0.1 [facility] Comment on above: Performed By: #### C BC #### [facility] [address] [place] [address] Dr. Jessie Lomax Basophils/100 WBC (Bld) 0.4 % Normal 0.2-2.0 [facility] Comment on above: Performed By: #### C BC #### [facility] [address] [place] [address] Dr. Jessie Lomax EO # 0.0 103/ul Normal 0.0-0.7 [facility] Comment on above: Performed By: #### C BC #### [facility] [address] [place] [address] Dr. Jessie Lomax Eosinophils/100 WBC (Bld) 0.1 % Critically low 0.9-7.0 [facility] Comment on above: Performed By: #### C BC #### [facility] [address] [place] [address] Dr. Jessie Lomax Erythrocyte distribution width (RBC) [Ratio] 13.6 % Normal 11.0-15.0 [facility] Comment on above: Performed By: #### C BC #### [facility] [address] [place] [address] Dr. Jessie Lomax Hematocrit (Bld) [Volume fraction] 47.4 % Normal 42.0-54.0 [facility] Comment on above: Performed By: #### C BC #### [facility] [address] [place] [address] Dr. Jessie Lomax Hemoglobin (Bld) [Mass/Vol] 16.0 g/dL Normal 14.0-18.0 [facility] Comment on above: Performed By: #### C BC #### [facility] [address] [place] [address] Dr. Jessie Lomax IG # 0.03 10e3/ul Normal 0.00-0.03 [facility] Comment on above: Performed By: #### C BC #### [facility] [address] [place] [address] Dr. Jessie Lomax IG % 0.3 % Normal 0.0-0.5 [facility] Comment on above: Performed By: #### C BC #### [facility] [address] [place] [address] Dr. Jessie Lomax LYMPH # 0.5 103/ul Critically low 1.2-3.8 [facility] Comment on above: Performed By: #### C BC #### [facility] [address] [place] [address] Dr. Jessie Lomax Lymphocytes/100 WBC (Bld) 5.4 % Critically low 20.5-60.0 [facility] Comment on above: Performed By: #### C BC #### [facility] [address] [place] [address] Dr. Jessie Lomax MANUAL DIFF REQ NO Normal [facility] Comment on above: Performed By: #### C BC #### [facility] [address] [address] [address] Jessie Lomax MCH (RBC) [Entitic mass] 31.7 pg Normal 25.9-34.0 [facility] Comment on above: Performed By: #### C BC #### [facility] [address] [place] [address] Dr. Jessie Lomax MCHC (RBC) [Mass/Vol] 33.8 g/dL Normal 29.9-35.2 [facility] Comment on above: Performed By: #### C BC #### [facility] [address] [place] [address] Dr. Jessie Lomax MCV (RBC) [Entitic vol] 93.9 fL Normal 80.0-94.0 [facility] Comment on above: Performed By: #### C BC #### [facility] [address] [place] [address] Dr. Jessie Lomax MONO # 0.2 103/ul Critically low 0.3-0.8 [facility] Comment on above: Performed By: #### C BC #### [facility] [address] [place] [address] Dr. Jessie Lomax Monocytes/100 WBC (Bld) 2.4 % Normal 1.7-12.0 [facility] Comment on above: Performed By: #### C BC #### [facility] [address] [place] [address] Dr. Jessie Lomax NEUT # 9.1 103/ul Critically high 1.4-6.5 [facility] Comment on above: Performed By: #### C BC #### [facility] [address] [place] [address] Dr. Jessie Lomax Neutrophils/100 WBC (Bld) 91.4 % Critically high 43.0-75.0 [facility] Comment on above: Performed By: #### C BC #### [facility] [address] [place] [address] Dr. Jessie Lomax Platelet mean volume (Bld) [Entitic vol] 9.5 fL Normal 9.5-13.5 [facility] Comment on above: Performed By: #### C BC #### [facility] [address] [address] [address] Jessie Lomax PLT 303 103/ul Normal 150-450 [facility] Comment on above: Performed By: #### C BC #### [facility] [address] [place] [address] Dr. Jessie Lomax RBC 5.05 106/ul Normal 4.70-6.10 [facility] Comment on above: Performed By: #### C BC #### [facility] [address] [address] [address] Jessie Lomax WBC 10.0 103/ul Normal 4.0-11.0 [facility] Comment on above: Performed By: #### C BC #### [facility] [address] [place] [address] Dr. Jessie Lomax Covid-19 PCR (CVDTB)on SARS-CoV-2 (COVID-19) RNA YOLANDA+probe Ql (Unsp spec) Not detected Normal NOT DETECTED [facility] Comment on above: Result Comment: When [...] for this test is supported by the [place] [employer]'s declaration that [...] used). Performed By: #### B [id number] #### [facility] [address] [place] [address] Dr. Jessie Lomax PROF 14(COMP METB)on 022 Albumin [Mass/Vol] 3.9 g/dL Normal 3.4-5.0 [facility] Comment on above: Performed By: #### C BC #### [facility] [address] [place] [address] Dr. Jessie Lomax Albumin/Globulin [Mass ratio] 1.1 {ratio} Normal [facility] Comment on above: Performed By: #### C BC #### [facility] [address] [place] [address] Dr. Jessie Lomax ALP [Catalytic activity/Vol] 81 U/L Normal 46-116 [facility] Comment on above: Performed By: #### C BC #### [facility] [address] [place] [address] Dr. Jessie Lomax ALT [Catalytic activity/Vol] 26 U/L Normal 16-63 [facility] Comment on above: Performed By: #### C BC #### [facility] [address] [place] [address] Dr. Jessie Lomax Anion gap [Moles/Vol] 14.5 mmol/L Normal [facility] Comment on above: Performed By: #### C BC #### [facility] [address] [place] [address] Dr. Jessie Lomax AST [Catalytic activity/Vol] 7 U/L Critically low 15-37 [facility] Comment on above: Performed By: #### C BC #### [facility] [address] [place] [address] Dr. Jessie Lomax Bilirubin [Mass/Vol] 0.3 mg/dL Normal 0.2-1.0 [facility] Comment on above: Performed By: #### C BC #### [facility] [address] [place] [address] Dr. Jessie Lomax Calcium [Mass/Vol] 9.2 mg/dL Normal 8.5-10.1 [facility] Comment on above: Performed By: #### C BC #### [facility] [address] [place] [address] Dr. Jessie Lomax Chloride [Moles/Vol] 101 mmol/L Normal 98-107 [facility] Comment on above: Performed By: #### C BC #### [facility] [address] [address] [address] Jessie Lomax CO2 [Moles/Vol] 26.1 mmol/L Normal 21.0-32.0 [facility] Comment on above: Performed By: #### C BC #### [facility] [address] [address] [address] Jessie Lomax Creatinine [Mass/Vol] 1.50 mg/dL Critically high 0.70-1.30 [facility] Comment on above: Performed By: #### C BC #### [facility] [address] [address] [address] Jessie Lomax EGFR-AF SRI LANKAN 57 mL/min/1.73m2 Critically low >=60 [facility] Comment on above: Performed By: #### C BC #### [facility] [address] [place] [address] Dr. Jessie Lomax EGFR-NON AF SRI LANKAN 47 mL/min/1.73m2 Critically low >=60 [facility] Comment on above: Performed By: #### C BC #### [facility] [address] [address] [address] Jessie Lomax Globulin (S) [Mass/Vol] 3.4 g/dL Normal [facility] Comment on above: Performed By: #### C BC #### [facility] [address] [address] [address] Jessie Lomax Glucose [Mass/Vol] 264 mg/dL Critically high 74-106 [facility] Comment on above: Performed By: #### C BC #### [facility] [address] [address] [address] Jessie Lomax Potassium [Moles/Vol] 4.6 mmol/L Normal 3.5-5.1 [facility] Comment on above: Performed By: #### C BC #### [facility] [address] [place] [address] Dr. Jessie Lomax Protein [Mass/Vol] 7.3 g/dL Normal 6.4-8.2 [facility] Comment on above: Performed By: #### C BC #### [facility] [address] [place], [place] [address] Dr. Jessie Lomax Sodium [Moles/Vol] 137 mmol/L Normal 136-145 [facility] Comment on above: Performed By: #### C BC #### [facility] [address] [place], [place] [address] Dr. Jessie Lomax Urea nitrogen [Mass/Vol] 20.0 mg/dL Critically high 7.0-18.0 [facility] Comment on above: Performed By: #### C BC #### [facility] [address] [place], [place] [address] Dr. Jessie Lomax Urea nitrogen/Creatinine [Mass ratio] 13.3 mg/mg Normal [facility] Comment on above: Performed By: #### C BC #### [facility] [address] [place], [place] [address] Dr. Jessie Lomax XR CHEST 1 Von [...] GERARD WOLFF Date: 2022-03-19 00:11 Normal [facility] Cardiovascular Lab Reporton 12-29-2018 Cardiovascular Lab Report [facility] Patient Name: Ric[facility] MR #: [id number] Physician: Calli Devlin, Department of M.D. Medicine Service Date: 12/28/2018 Division of Birthdate: 1960 Cardiology Room #: Adult Cardiovascular Services [place] [address] Cardiovascular Laboratory Report FINAL IMPRESSIONS: 1. Nonobstructive [...] 6. Follow up with me in the [facility] in the next 2-4 weeks. 7. Follow up with Dr. Cowart as scheduled. PROCEDURES: Ultrasound-guided access to the right common femoral vein and artery, right heart catheterization, bilateral selective coronary angiography, left heart catheterization, left ventriculography, limited femoral angiogram, placement of a 6-Citizen [place] MynxGrip closure device. METHODS: After risks, benefits, and alternatives were explained, written informed consent was obtained. The patient was prepped and draped in usual sterile fashion over the right groin. Using 1% lidocaine solution, local infiltration anesthesia was achieved. Using a modified Seldinger technique and under ultrasound guidance access to the right common femoral vein and artery was obtained and 6-[place]izen [place] 11 cm sheath placed in each. Limited [...] the procedure. All catheters were removed. A 6-Citizen [place] MynxGrip closure device was deployed per protocol [...] Devlin M.D. Date Trans: 12/29/2018 04:14 Marek/rosetta [id number] cc: Calli Devlin M.D. [address] [facility] [address] ANNA NASH Normal [facility] Vital Signs Date Time Vital Sign Value Performing Clinician Facility 04-15-2025 22:30-0400 Body height 175.26 cm Sarahalex Trivedi [employer] Work Phone: [facility] 04-15-2025 22:30-0400 Body temperature 97.8 [degF] Sarah Shikha [employer] Work Phone: [facility] 04-15-2025 22:30-0400 Body weight 112.3 kg Sarah Shikha [employer] Work Phone: [facility] 04-15-2025 22:30-0400 Diastolic blood pressure 93 mm[Hg] Sarah Shikha [employer] Work Phone: [facility] 04-15-2025 22:30-0400 Heart rate 100 /min Sarah Shikha [employer] Work Phone: [facility] 04-15-2025 22:30-0400 Inhaled oxygen concentration 3 % Sarah Shikha [employer] Work Phone: [facility] 04-15-2025 22:30-0400 Respiratory rate 20 /min Sarah Shikha [employer] Work Phone: [facility] 04-15-2025 22:30-0400 SaO2% (BldA) [Mass fraction] 98 % Sarah Blakeann [employer] Work Phone: [facility] 04-15-2025 22:30-0400 Systolic blood pressure 167 mm[Hg] Sarah Shikha [employer]BC Work Phone: [facility] 04-15-2025 21:00-0400 Inhaled oxygen flow rate 3 L/min Sarah Shikha [employer] Work Phone: [facility] 04-11-2025 22:07-0400 Body height 175.26 cm Sarah Shikha [employer] Work Phone: [facility] 04-11-2025 22:07-0400 Body weight 108.86 kg Sarah Trivedi [employer] Work Phone: [facility] 03-11-2025 13:27-0400 Body mass index (BMI) [Ratio] 34.69 kg/m2 Leslye Mclean MD Work Phone: [facility] 03-11-2025 13:27-0400 Body weight 106.59 kg Leslye Mclean MD Work Phone: [facility] 03-11-2025 13:27-0400 Diastolic blood pressure 84 mm[Hg] Leslye Mclean MD Work Phone: [facility] 03-11-2025 13:27-0400 Heart rate 113 /min Leslye Mclean MD Work Phone: [facility] 03-11-2025 13:27-0400 SaO2% (BldA) [Mass fraction] 97 % Leslye Mclean MD Work Phone: [facility] Comment on above: 3L 03-11-2025 13:27-0400 Systolic blood pressure 134 mm[Hg] Leslye Mclean MD Work Phone: [facility] 10-05-2024 13:44-0400 Heart rate 104 /min Pranay Bai MD Work Phone: [facility] 10-05-2024 13:44-0400 Respiratory rate 22 /min Pranay Bai MD Work Phone: [facility] 10-05-2024 12:00-0400 Body temperature 97.3 [degF] Pranay Bai MD Work Phone: [facility] 10-05-2024 12:00-0400 Diastolic blood pressure 79 mm[Hg] Pranay Bai MD Work Phone: [facility] 10-05-2024 12:00-0400 Inhaled oxygen flow rate 3 L/min Pranay Bai MD Work Phone: [facility] 10-05-2024 12:00-0400 SaO2% (BldA) [Mass fraction] 96 % Pranay Bai MD Work Phone: [facility] 10-05-2024 12:00-0400 Systolic blood pressure 126 mm[Hg] Pranay Bai MD Work Phone: [facility] 10-05-2024 04:57-0400 Body weight 106.6 kg Pranay Bai MD Work Phone: [facility] 10-04-2024 17:07-0400 Body height 175.26 cm Pranay Bai MD Work Phone: [facility] 10-04-2024 14:00-0400 Diastolic blood pressure 81 mm[Hg] Pranay Bai MD Work Phone: [facility] 10-04-2024 14:00-0400 Heart rate 106 /min Pranay Bai MD Work Phone: [facility] 10-04-2024 14:00-0400 Inhaled oxygen flow rate 4 L/min Pranay Bai MD Work Phone: [facility] 10-04-2024 14:00-0400 Respiratory rate 30 /min Pranay Bai MD Work Phone: [facility] 10-04-2024 14:00-0400 SaO2% (BldA) [Mass fraction] 96 % Pranay Bai MD Work Phone: [facility] 10-04-2024 14:00-0400 Systolic blood pressure 148 mm[Hg] Pranay Bai MD Work Phone: [facility] 10-03-2024 22:30-0400 Body height 175.26 cm Pranay Bai MD Work Phone: [facility] 10-03-2024 22:30-0400 Body temperature 97.9 [degF] Pranay Bai MD Work Phone: [facility] 10-03-2024 22:30-0400 Body weight 109.5 kg Pranay Bai MD Work Phone: [facility] 11-11-2023 14:15-0400 Body height 175.26 cm [facility] 11-11-2023 14:15-0400 Body mass index (BMI) [Ratio] 37 kg/m2 [facility] 11-11-2023 14:15-0400 Body weight 113.85 kg [facility] 11-11-2023 14:15-0400 Diastolic blood pressure 102 mm[Hg] [facility] 11-11-2023 14:15-0400 Heart rate 96 /min [facility] 11-11-2023 14:15-0400 SaO2% (BldA) [Mass fraction] 92 % [facility] 11-11-2023 14:15-0400 Systolic blood pressure 149 mm[Hg] [facility] 09-15-2023 11:02-0500 Body height 175.26 cm [facility] 09-15-2023 11:02-0500 Body mass index (BMI) [Ratio] 38.2 kg/m2 [facility] 09-15-2023 11:02-0500 Body weight 117.59 kg [facility] 09-15-2023 11:02-0500 Diastolic blood pressure 87 mm[Hg] [facility] 09-15-2023 11:02-0500 Heart rate 113 /min [facility] 09-15-2023 11:02-0500 SaO2% (BldA) [Mass fraction] 97 % [facility] 09-15-2023 11:02-0500 Systolic blood pressure 158 mm[Hg] [facility] 06-27-2023 11:00-0500 Body height 175.26 cm Bryon Cowart Other Friday Other 06-27-2023 11:00-0500 Body mass index (BMI) [Ratio] 37.8 kg/m2 Bryon Cowart Other Friday Other 06-27-2023 11:00-0500 Body weight 116.12 kg Bryon Cowart Other Friday Other 06-27-2023 11:00-0500 Diastolic blood pressure 88 mm[Hg] Bryon Cowart Other Friday Other 06-27-2023 11:00-0500 SaO2% (BldA) [Mass fraction] 92 % Bryon Cowart Other Friday Other 06-27-2023 11:00-0500 Systolic blood pressure 134 mm[Hg] Bryon Cowart Other Friday Other 03-03-2023 15:00-0400 Body height 175.26 cm Bryon Cowart Other Friday Other 03-03-2023 15:00-0400 Body mass index (BMI) [Ratio] 38.69 kg/m2 Bryon Cowart Other Friday Other 03-03-2023 15:00-0400 Body weight 118.84 kg Bryon Cowart Other Friday Other 03-03-2023 15:00-0400 Diastolic blood pressure 82 mm[Hg] Bryon Cowart Other Friday Other 03-03-2023 15:00-0400 Systolic blood pressure 157 mm[Hg] Bryon Cowart Other Friday Other 12-30-2022 14:30-0400 Body height 175.26 cm Bryon Cowart Other Friday Other 12-30-2022 14:30-0400 Body mass index (BMI) [Ratio] 39.57 kg/m2 Bryon Cowart Other Friday Other 12-30-2022 14:30-0400 Body weight 121.56 kg Bryon Cowart Other Friday Other 12-30-2022 14:30-0400 Diastolic blood pressure 85 mm[Hg] Bryon Cowart Other Friday Other 12-30-2022 14:30-0400 SaO2% (BldA) [Mass fraction] 95 % Bryon Cowart Other Friday Other 12-30-2022 14:30-0400 Systolic blood pressure 147 mm[Hg] Bryon Cowart Other Friday Other 09-02-2022 14:00-0500 Body height 175.26 cm Bryon Cowart Other Friday Other 09-02-2022 14:00-0500 Body mass index (BMI) [Ratio] 38.69 kg/m2 Bryon Cowart Other Friday Other 09-02-2022 14:00-0500 Body weight 118.84 kg Bryon Cowart Other Friday Other 09-02-2022 14:00-0500 Diastolic blood pressure 84 mm[Hg] Bryon Cowart Other Friday Other 09-02-2022 14:00-0500 Respiratory rate 60 /min Bryon Cowart Other Friday Other 09-02-2022 14:00-0500 SaO2% (BldA) [Mass fraction] 91 % Bryon Cowart Other Friday Other 02-16-2023 14:00-0500 Systolic blood pressure 142 mm[Hg] Bryon Cowart Other [facility] [employer] Other Encounters Encounter Date Encounter Type Care Provider Facility Start: 03-19-2026 ambulatory Joo Jaimes ty:[facility] Start: 05-28-2025 ambulatory [facility] Start: 05-20-2025 ambulatory Joo Jaimes ty: Natasha Start: 04-30-2025 ambulatory Joo Jaimes ty:[id number] Start: 04-23-2025 End: 04-23-2025 ambulatory BRYON COWART Facility:[facility] Start: 04-19-2025 End: 04-19-2025 ambulatory SARAH TRIVEDI [facility] Start: 04-18-2025 ambulatory SARAH TRIVEDI Facili ty:[id number] Start: 04-15-2025 End: 04-17-2025 Evaluation and management of inpatient Serene Cho MD -[address] [place] [address] Med Surg Work Phone: Start: 04-15-2025 End: 04-15-2025 ambulatory Flora X Brech Facility: [place] Start: 04-15-2025 End: 04-15-2025 Patient encounter procedure Flora X Orzech [facility] Start: 04-11-2025 End: 04-11-2025 Patient encounter procedure Joo Yip MD -[facility] Work Phone: Start: 04-11-2025 End: 04-11-2025 ambulatory Sarah Trivedi [facility]- Work Phone: [facility] Work Phone: Start: 03-26-2025 End: 03-26-2025 Telephone encounter Leslye Mclean MD Work Phone: Pulmonary Medicine Comment on above: Patient Update Start: 03-26-2025 Non-patient / Non-visit Leslye Mclean MD -[facility] [employer] Work Phone: Start: 03-26-2025 End: 03-26-2025 ambulatory BRYON COWART Facility:[facility] Start: 03-24-2025 End: 03-25-2025 Follow-up encounter Leslye Mclean MD Work Phone: Pulmonary Medicine Start: 03-24-2025 End: 03-24-2025 Telephone encounter Leslye Mclean MD Work Phone: Pulmonary Medicine Start: 03-20-2025 End: 03-20-2025 Telephone encounter Leslye Mclean MD Work Phone: Pulmonary Medicine Start: 03-20-2025 End: 03-20-2025 ambulatory Joo YIP Facility:[facility] [place] Start: 03-20-2025 End: 03-20-2025 Patient encounter procedure Joo YIP [facility] Start: 03-19-2025 End: 03-19-2025 Telephone encounter Leslye Mclean MD Work Phone: Pulmonary Medicine Start: 03-13-2025 End: 03-13-2025 Telephone encounter Leslye Mclean MD Work Phone: Pulmonary Medicine Start: 03-12-2025 End: 03-12-2025 Telephone encounter Leslye Mclean MD Work Phone: Pulmonary Medicine Start: 03-11-2025 Non-patient / Non-visit Leslye Mclean MD -[facility] Work Phone: Start: 03-11-2025 End: 03-11-2025 ambulatory LESLYE MCLEAN Facility:[facility] Start: 03-11-2025 End: 03-11-2025 Patient encounter procedure Pulm [facility] Work Phone: Pulmonary Medicine Comment on above: Spirometry Chronic obstructive pulmonary disease, unspecified COPD type (HCC) (Primary Dx); Chronic respiratory failure with hypoxia (HCC); Osjks-4-clhfjyjmwhz deficiency (HCC); Chronic rhinitis; Obstructive sleep apnea (adult) (pediatric); Former smoker Start: 03-11-2025 End: 03-11-2025 Patient encounter procedure Pulm Lab [facility] 2 Work Phone: Pulmonary Medicine Comment on above: Spirometry Start: 03-11-2025 End: 03-11-2025 ambulatory LESLYE VINAY Facility:[facility] Start: 02-19-2025 End: 02-19-2025 ambulatory SARAH A SHIKHA Facility:[facility] Start: 02-19-2025 End: 02-19-2025 ambulatory CINETECHNICIAN SARAH A SHIKHA Facility:[facility] Start: 02-06-2025 ambulatory Joo YIP Facili ty:[facility] Start: 01-24-2025 End: 01-24-2025 ambulatory EHAB [facility] Start: 11-28-2024 End: 11-28-2024 ambulatory Joo YIP Facility:[facility] Start: 11-28-2024 End: 11-28-2024 Patient encounter procedure Joo YIP [facility] Antony Start: 11-01-2024 ambulatory SARAH SHIKHA Facility :[facility] Start: 10-25-2024 End: 10-25-2024 Lab Drop off SARAH A SHIKHA [facility] Start: 10-25-2024 End: 10-25-2024 ambulatory CINETECHNICIAN SARAH A SHIKHA Facility:[facility] Start: 10-11-2024 End: 10-11-2024 ambulatory CINETECHNICIAN SARAH A SHIKHA Facility:[facility] Start: 10-08-2024 End: 10-26-2024 ambulatory CINETECHNICIAN SARAH A SHIKHA Facility:[id number] Start: 10-04-2024 End: 10-05-2024 Evaluation and management of inpatient Pranay Bai MD Work Phone: [facility] [place] [facility] Work Phone: Start: 08-20-2024 Non-patient / Non-visit Pranay Bai MD Work Phone: Count Includes [facility] Physician [facility] Work Phone: Start: 06-21-2024 End: 06-21-2024 ambulatory CINETECHNICIAN SARAH A SHIKHA Facility:[facility] Start: 06-19-2024 End: 06-19-2024 ambulatory CINETECHNICIAN SARAH A SHIKHA Facility:[facility] [place] [facility] Start: 06-04-2024 End: 06-04-2024 ambulatory CINETECHNICIAN SARAH A SHIKHA Facility:[facility] [place] [facility] Start: 05-22-2024 End: 05-22-2024 ambulatory CINETECHNICIAN SARAH A SHIKHA Facility:[facility] [place] [facility] Start: 05-08-2024 End: 05-08-2024 ambulatory CINETECHNICIAN SARAH A SHIKHA Facility:[facility] [place] [facility] Start: 04-30-2024 End: 05-14-2024 ambulatory CINETECHNICIAN SARAH A SHIKHA Facility:[id number] Start: 04-24-2024 End: 04-24-2024 ambulatory CINETECHNICIAN SARAH A SHIKHA Facility:[facility] [place] [facility] Start: 01-24-2024 End: 01-24-2024 Lab Drop off SARAH A SHIKHA [facility] Start: 11-11-2023 End: 11-11-2023 ambulatory [facility] Work Phone: Start: 11-11-2023 End: 11-11-2023 Patient encounter procedure Count Includes [facility] Physician [facility] Work Phone: Start: 10-03-2023 Non-patient / Non-visit Count Includes [facility] Physician [facility] Work Phone: Start: 09-15-2023 End: 09-15-2023 Patient encounter procedure Count Includes [facility] Physician [facility] Work Phone: Start: 08-26-2023 End: 08-26-2023 ambulatory Bryon Cowart Other Friday Other Start: 08-26-2023 Telephone encounter Bryon [facility] Start: 08-04-2023 End: 08-04-2023 ambulatory Bryon Cowart Other Friday Other Start: 08-04-2023 Telephone encounter Bryon Cowart [facility] Start: 08-03-2023 End: 08-03-2023 ambulatory Bryon Cowart Other Friday Other Start: 08-03-2023 Telephone encounter Bryon Cowart [facility] Start: 07-19-2023 End: 07-19-2023 ambulatory Bryon Cowart Other Friday Other Start: 07-19-2023 Telephone encounter Bryon Cowart [facility] Start: 07-12-2023 End: 07-12-2023 ambulatory Bryon Cowart Other Friday Other Start: 07-12-2023 Telephone encounter Bryon Cowart [facility] Start: 07-07-2023 End: 07-07-2023 ambulatory Bryon Cowart Other Friday Other Start: 07-07-2023 Telephone encounter Bryon Cowart [facility] Start: 07-04-2023 End: 07-04-2023 ambulatory Bryon Cowart Other Friday Other Start: 07-04-2023 Telephone encounter Bryon Cow[facility] Start: 06-30-2023 End: 06-30-2023 ambulatory Bryon Cowart Other Friday Other Start: 06-30-2023 Telephone encounter Bryon Cowart [facility] Start: 06-27-2023 End: 06-27-2023 ambulatory Bryon Cowart Other Friday Other Start: 06-27-2023 Office outpatient vi sit 25 minutes Bryon Cowart [facility] Start: 06-27-2023 Telephone encounter Bryon Cowart [facility] Start: 06-24-2023 End: 06-24-2023 ambulatory Bryon Cowart Other Friday Other Start: 06-24-2023 Telephone encounter Bryon Cowart [facility] Start: 06-13-2023 End: 06-13-2023 ambulatory Bryon Cowart Other Friday Other Start: 06-13-2023 Telephone encounter Bryon Cowart [facility] Start: 06-03-2023 End: 06-03-2023 ambulatory Bryon Cowart Other Friday Other Start: 06-03-2023 Telephone encounter Bryon Cowart [facility] Start: 05-31-2023 End: 05-31-2023 ambulatory Bryon Cowart Other Friday Other Start: 05-31-2023 Telephone encounter Bryon Cowart [facility] Start: 05-09-2023 End: 05-09-2023 ambulatory Bryon Cowart Other Friday Other Start: 05-09-2023 Telephone encounter Bryon Cowart [facility] Start: 04-25-2023 Telephone encounter Yaima Meraz RN Pulmonary Medicine Comment on above: Closing Referral Start: 04-13-2023 End: 04-13-2023 ambulatory Bryon Cowart Other Friday Other Start: 04-13-2023 Telephone encounter Bryon Cowart [facility] Start: 03-14-2023 End: 03-14-2023 ambulatory Bryon Cowart Other Friday Other Start: 03-14-2023 Telephone encounter Bryon Cowart [facility] Start: 03-11-2023 End: 03-11-2023 ambulatory Bryon Sofya Other Friday Other Start: 03-11-2023 Telephone encounter Bryon Cowart [facility] Start: 03-10-2023 Telephone encounter Yaima Meraz RN Pulmonary Medicine Comment on above: Follow up on Lung Tr ansplant Referral Start: 03-08-2023 End: 03-08-2023 ambulatory Bryon Sofya Other Friday Other Start: 03-08-2023 Telephone encounter Bryon Cowart [facility] Start: 03-03-2023 End: 03-03-2023 ambulatory Bryon Sofya Other Friday Other Start: 03-03-2023 Office outpatient vi sit 15 minutes Bryon Cowart [facility] Start: 02-10-2023 End: 02-10-2023 ambulatory Bryon Sofya Other Friday Other Start: 02-10-2023 Telephone encounter Bryon Cowart [facility] Start: 12-30-2022 End: 12-30-2022 ambulatory Bryon Sofya Other Friday Other Start: 12-30-2022 Office outpatient vi sit 25 minutes Bryon Cowart [facility] Start: 12-30-2022 Telephone encounter Bryon Cowart [facility] Start: 12-22-2022 End: 12-22-2022 ambulatory Bryon Cowart Other Friday Other Start: 12-22-2022 Telephone encounter Bryon Cowart [facility] Start: 11-12-2022 End: 11-12-2022 ambulatory Bryon Sofya Other Friday Other Start: 11-12-2022 Telephone encounter Bryon Cowart [facility] Start: 10-12-2022 End: 10-12-2022 ambulatory Rubén Pina Other Friday Other Start: 10-12-2022 Telephone encounter Rubén Pina [facility] Start: 10-05-2022 End: 10-05-2022 ambulatory Bryon Cowart Other Friday Other Start: 10-05-2022 Telephone encounter Bryno Cowart [facility] Start: 10-03-2022 End: 10-04-[address] BRYON COWART Facility:[facility]1 Start: 09-27-2022 End: 09-27-2022 ambulatory Bryon Cowart Other Friday Other Start: 09-27-2022 Telephone encounter Bryon Cowart [facility] Start: 09-15-2022 End: 09-15-2022 ambulatory Bryon Cowart Other Friday Other Start: 09-15-2022 Telephone encounter Bryon Cowart [facility] Start: 09-02-2022 End: 09-02-2022 ambulatory Bryon Cowart Other Friday Other Start: 09-02-2022 Office outpatient vi sit 15 minutes Bryon Cowart [facility] Start: 08-29-2022 End: 08-30-[address] EVERETTE MONTAGUE . Facility:[facility] Start: 08-20-2022 End: 08-20-2022 ambulatory Bryon Cowart Other Friday Other Start: 08-20-2022 Telephone encounter Bryon Cowart [facility] Start: 08-17-2022 End: 08-17-2022 ambulatory SHAIKH Jose BANDA Facility:[facility] Start: 08-17-2022 ambulatory VANDA GONZALEZ . Facility :[facility] Start: 08-10-2022 End: 08-11-2022 ambulatory VANDA CHAPASA . Facility:[facility] Start: 08-09-2022 End: 08-09-2022 ambulatory Bryon Cowart Other Friday Other Start: 08-09-2022 Telephone encounter Bryon Cowart [facility] Start: 07-22-2022 End: 07-22-2022 ambulatory Bryon Cowart Other [facility] [employer] Other Start: 07-22-2022 Telephone encounter Bryon Cowart [facility] Start: 07-01-2022 End: 07-02-2022 ambulatory [...] Update Start: 11-04-2021 Telephone encounter Molly trinidad CASH MANAGER.CINETECHNICIAN Work Phone: Pulmonary Medicine Comment on above: Missed appointments Start: 11-03-2021 Orders Only Molly aguirre CASH MANAGER.CINETECHNICIAN Work Phone: Pulmonary Medicine Comment on above: Chronic obstructive pulmonary disease, unspecified COPD type (HCC) (Primary Dx); 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) Start: 12-28-2018 End: 12-29-2018 Patient encounter procedure CALLI DEVLIN Facility:[facility] Procedures Date Procedure Procedure Detail Performing Clinician Start: 04-15-2025 Plain chest X-ray Anabel Trivedi BARREL PLANER-BC Work Phone: Start: 04-15-2025 Respiratory Panel (PCR) Sarah Trivedi BARREL PLANER-BC Work Phone: Start: 04-11-2025 MR prostate wo/w con Sh wendie Trivedi BARREL PLANER-BC Work Phone: Start: 03-11-2025 Plethysmography lung volumes w/wo airway resist Leslye Mclean MD Work Phone: Start: 03-11-2025 Brncdilat rspse spmt ry pre&post-brncdilat admn Leslye Mclean MD Work Phone: Start: 10-04-2024 Respiratory Panel (PCR) Pranay Bai MD Work Phone: Start: 10-03-2024 Plain chest X-ray Darrius Bai MD Work Phone: Cardiac catheter (ph ysical object) SARAH QURESHIHMANN Comment on above: 2022 Plan of Treatment Date Care Activity Detail Author Start: 05-10-2025 End: 05-10-2025 Patient encounter procedure Pulmonary Medicine Comment on above: Chronic obstructive pulmonary disease, unspecified COPD type (HCC) [J44.9] Start: 04-16-2025 [facility] Start: 04-15-2025 Hospital admission [facility] Start: 04-15-2025 [facility] Start: 04-11-2025 MR Prostate WO and W contrast IV [facility] Start: 04-11-2025 MR prostate wo/w con MR prostate wo/ w con [facility] Start: 03-24-2025 End: 06-23-2025 Theophylline [Mass/volume] in Serum or Plasma THEOPHYLLINE/AMINOPHYLL INE Lab Routine Adverse effect of theophylline Expected: 03/24/2025, Expires: 06/23/2025 [facility] Work Phone: Comment on above: Expected: 03/24/2025 , Expires: 06/23/2025 Start: 03-18-2025 Influenza vaccination Influenza Vacc ine (#1) [facility] Start: 11-04-2024 Advance Directive Discussion Advance Directive Discussion [facility] Start: 10-13-2024 [facility] Start: 10-12-2024 [facility] Start: 10-11-2024 [facility] Start: 10-10-2024 [facility] Start: 10-09-2024 [facility] Start: 10-08-2024 [facility] Start: 10-07-2024 [facility] Start: 10-06-2024 [facility] Start: 10-05-2024 End: 10-05-2024 [facility] Start: 10-04-2024 Administration of prophylactic treatment [facility] Start: 10-04-2024 Respiratory Panel (PCR) Respiratory Panel (PCR) [facility] Start: 10-04-2024 [facility] Start: 10-04-2024 [facility] Start: 10-04-2024 Hospital admission [facility] Start: 07-18-2024 Medicare Advantage Annual Wellness Visit Medicare Advantage Annual Wellness Visit [facility] Start: 03-18-2023 [facility] Start: 03-24-2022 Hepatitis B surface antibody level LDL CHOLESTEROL [facility] Start: 03-18-2022 Influenza vaccination INFLUENZ A (Season Ended) [facility] Start: 11-04-2021 End: 01-04-2022 HEPATITIS A ANTIBODY, IGG HEPATITIS A ANTIBODY, IGG Lab Routine Chronic obstructive pulmonary disease, unspecified COPD type (HCC) Lung transplant candidate Expected: 11/04/2021, Expires: 01/04/2022 [facility] Work Phone: Comment on above: Expected: 11/04/2021 , Expires: 01/04/2022 Start: 11-03-2021 End: 11-03-2022 ARTERIAL BLOOD GASES ARTERIAL BLOOD GASES Lab Routine Pbzvi-9-mplwvptaddv deficiency (HCC) Expected: 11/03/2021, Expires: 11/03/2022 [facility] Work Phone: Comment on above: Expected: 11/03/2021 , Expires: 11/03/2022 Start: 2019 RSV Vaccine (1 - Ris k 60-74 years 1-dose series) RSV Vaccine (1 - Risk 60-74 years 1-dose series) [facility] Start: 07-05-2018 Pneumococcal Vaccine : 50+ (2 of 2 - PPSV23, PCV20, or PCV21) Pneumococcal Vaccine: 50+ (2 of 2 - PPSV23, PCV20, or PCV21) [facility] Start: 11-04-2014 PROSTATE CANCER SCREENING DISCUSSION PROSTATE CANCER SCREENING DISCUSSION [facility] Start: 11-04-2009 SHINGRIX VACCINE (1 of 2) SHINGRIX VACCINE (1 of 2) [facility] Start: 11-04-2004 COLOGUARD (FIT-DNA) COLOGUARD (FIT-D NA) [facility] Start: 11-04-2004 Colonoscopy COLONOSCOPY [facility] Start: 11-04-2004 COLORECTAL CANCER SCREENING COLORECTAL CANCER SCREENING [facility] Start: 11-04-[address] COLONOGRAPHY [facility] Start: 11-04-2004 FECAL OCCULT BLOOD FECAL OCCULT BLOO D [facility] Start: 11-04-2004 Prostate specific antigen measurement Prostate Cancer Screening Discussion [facility] Start: 11-04-2004 Screening for malign ant neoplasm of colon [facility] Start: 11-04-2004 SIGMOIDOSCOPY SIGMOIDOSCOPY [facility] Start: 11-04-1989 Zoledronic acid therapy ALPHA- 1 ANTITRYPSIN DEFICIENCY SCREENING [facility] Start: 11-04-1978 ADULT PREVNAR-13 ADULT PREVNAR-[address] [facility] Start: 11-04-1978 HEPATITIS A (1 of 2 - Risk 2-dose series) HEPATITIS A (1 of 2 - Risk 2-dose series) [facility] Start: 11-04-1978 Hepatitis A Vaccine (1 of 2 - Risk 2-dose series) Hepatitis A Vaccine (1 of 2 - Risk 2-dose series) [facility] Start: 11-04-1978 SHINGRIX VACCINE (1 of 2) SHINGRIX VACCINE (1 of 2) [facility] Start: 11-04-1978 TWO PNEUMOVAX 5 YEAR S APART PRIOR TO AGE 65 (#1) TWO PNEUMOVAX 5 YEARS APART PRIOR TO AGE 65 (#1) [facility] Start: 11-04-1978 Urine microalbumin profile [facility] Start: 11-04-1977 ANNUAL PCP TEAM LENDING CONSULTANT SARAH DISEASE VISIT ANNUAL PCP TEAM CHRONIC DISEASE VISIT [facility] Start: 11-04-1977 Anxiety Screening Anxiety Screening [facility] Start: 11-04-1977 BP CONTROLLED (<130/80) BP CONTROLLE D (<130/80) [facility] Start: 11-04-1969 3 comp foot exam completed DIABETIC FOOT EXAM [facility] Start: 11-04-1969 Diabetic foot examination Diabetic Foot Exam [facility] Start: 11-04-1969 Glaucoma screening Dilated Retinal E xam [facility] Start: 11-04-1969 Hepatitis B screening URINE ALBUMIN:CREATININE RATIO [facility] Start: 11-04-1969 Hepatitis C antibody , confirmatory test DILATED RETINAL EXAM [facility] Start: 11-04-1965 PNEUMOCOCCAL (1 - PCV) PNEUMOCOCCAL (1 - PCV) [facility] Start: 11-04-1965 Pneumococcal vaccination Pneum ococcal Vaccine (1 - PCV) [facility] Start: 11-04-1964 COVID-19 VACCINE (1) COVID-19 VACCIN E (1) [facility] Start: 11-04-1964 Hemoglobin A1c measurement HbA1C [facility] Start: 11-04-1964 Hemoglobin A1c/Hemoglobin.total in Blood HBA1C [facility] Start: 11-04-1960 HEPATITIS A (1 of 2 - Risk 2-dose series) HEPATITIS A (1 of 2 - Risk 2-dose series) [facility] Start: 05-06-1960 COVID-19 VACCINE (#1) COVID-19 VACCI NE (#1) [facility] Start: 1960 Abdominal aortic aneurysm screening Abdominal Aortic Aneurysm Screening [facility] Anion gap measurement [facility] Basophils [#/volume] in Blood by Automated count [facility] Basophils/100 leukoc ytes in Blood by Automated count [facility] End: 04-10-2026 CT Chest WO contrast CT CHEST WO IVCON Radiology Routine Chronic obstructive pulmonary disease, unspecified COPD type (HCC) 1 Occurrences starting 03/11/2025 until 04/10/2026 [facility] Comment on above: 1 Occurrences starti ng 03/11/2025 until 04/10/2026 Eosinophils/100 leukocytes in Blood by Automated count [facility] Erythrocyte distribu tion width [Ratio] by Automated count [facility] Erythrocytes [#/volu me] in Blood [facility] Hematocrit [Volume Fraction] of Blood [facility] Hemoglobin [Mass/vol ume] in Blood [facility] Leukocytes [#/volume ] corrected for nucleated erythrocytes in Blood by Automated coun [facility] Leukocytes [#/volume ] in Blood [facility] LUNG DIFFUSION CAPAC ITY (DLCO) LUNG DIFFUSION CAPACITY (DLCO) PFT Routine Chronic obstructive pulmonary disease, unspecified COPD type (HCC) 03/11/2025 12:26 PM EDT [facility] Work Phone: LUNG VOLUMES LUNG VOLUMES PFT Routine Chronic obstructive pulmonary disease, unspecified COPD type (HCC) 03/11/2025 2:24 PM EDT [facility] Work Phone: Lymphocytes [#/volum e] in Blood by Automated count [facility] Lymphocytes/100 leukocytes in Blood by Automated count [facility] MCH [Entitic mass] b y Automated count [facility] MCHC [Mass/volume] b y Automated count [facility] MCV [Entitic volume] by Automated count [facility] Monocytes [#/volume] in Blood by Automated count [facility] Monocytes/100 leukoc ytes in Blood by Automated count [facility] Neutrophils [#/volum e] in Blood by Automated count [facility] Neutrophils/100 leukocytes in Blood by Automated count [facility] Nucleated erythrocyt es [Presence] in Blood by Automated count [facility] Patient Education Azithromycin ( Systemic) Cephalexin Know your Meds [facility] COVID-19 Discharge Instructions [facility] Work Phone: Patient referral [facility] Work Phone: Platelet mean volume [Entitic volume] in Blood by Automated count [facility] Platelets [#/volume] in Blood [facility] Respiratory pathogen s DNA and RNA panel - Nasopharynx by YOLANDA with non-probe detection [facility] End: 04-10-2026 SIX MINUTE WALK SIX MINUTE WALK PFT Routine Chronic obstructive pulmonary disease, unspecified COPD type (HCC) 1 Occurrences starting 03/11/2025 until 04/10/2026 [facility] Work Phone: Comment on above: 1 Occurrences starti ng 03/11/2025 until 04/10/2026 SPIROMETRY WITH DILA TOR IF OBSTRUCTED SPIROMETRY WITH DILATOR IF OBSTRUCTED PFT Routine Chronic obstructive pulmonary disease, unspecified COPD type (HCC) 03/11/2025 12:26 PM EDT [facility] Work Phone: [facility] Immunizations Immunization Date Immunization Notes Care Provider Yvette iniguez 04-30-2024 influenza virus vaccine, unspecified formulation SARAH SHIKHA [facility] 05-16-2020 influenza virus vaccine, unspecified formulation Yaima Meraz RN [facility] 05-10-2018 influenza virus vaccine, unspecified formulation SARAH TRIVEDI [facility] 05-10-2018 pneumococcal conjuga te vaccine, 13 valent SARAH TRIVEDI [facility] Payers Date Payer Category Payer Medicaid [id number] 2025 Medicare [id number] 2025 Medicare (Managed Care) [facility] [id number] 2025 Unknown [id number] 2024 Private Health Insurance [id number] 2024 Private Health Insurance [id number] 2023 Medicare [id number] 2022 Medicare [id number] .[id number] 2018 Unknown TEREZA SCHWAB PPO [id number] 2018-Present [phone] [facility] [id number] [place] [address] PPO [id number]. [id number] 2018 Unknown [id number]. 1.13.159.2. 7.3.072384.315 1959 Unknown [id number] 2.16.840.1.917140.3.579.2. 647 1959 Unknown [id number] 2.16.840.1.552431.3.579.2. 593 1959 Unknown [id number] 2.16.840.1.654653.3.579.2. 593 1959 Unknown [id number] 2.16.840.1.685167.3.579.2. 593 1959 Unknown [id number] 2.16.840.1.418564.3.579.2. 593 1959 Unknown [id number] 2.16.840.1.224704.3.579.2. 593 1959 Unknown [id number] 2.16.840.1.866642.3.579.2. 593 1959 Unknown [id number] 2.16.840.1.386474.3.579.2. 593 1959 Unknown [id number] 2.16.840.1.365289.3.579.2. 593 1959 Unknown [id number] 2.16.840.1.597405.3.579.2. 593 1959 Unknown [id number] 2.16.840.1.724175.3.579.2. 593 1959 Unknown [id number] 2.16.840.1.089521.3.579.2. 593 1959 Unknown [id number] 2.16.840.1.552065.3.579.2. 1959 Unknown [id number] 2.16.840.1.000719.3.579.2 1959 Unknown [id number] 2.16.840.1.693541.3.579.2 1959 Unknown [id number] 2.16.840.1.032940.3.579.2 1959 Unknown [id number] 2.16.840.1.608290.3.579.2 1959 Unknown [id number] 2.16.840.1.802134.3.579.2 1959 Unknown [id number] 2.16.840.1.220756.3.579.2 1959 Unknown [id number] 2.16.840.1.224700.3.579.2 1959 Unknown [id number] 2.16.840.1.574178.3.579.2 1959 Unknown [id number] 2.16.840.1.424161.3.579.2 1959 Unknown [id number] 2.16.840.1.694870.3.579.2 1959 Unknown [id number] 2.16.840.1.207324.3.579.2 1959 Unknown [id number] 2.16.840.1.393048.3.579.2 1959 Unknown [id number] 2.16.840.1.433537.3.579.2 1959 Unknown [id number] 2.16.840.1.486665.3.579.2 1959 Unknown [id number] 2.16.840.1.729030.3.579.2 1959 Unknown [id number] 2.16.840.1.750720.3.579.2. 727 1959 Unknown [id number] 2.16.840.1.528118.3.579.2. 727 1959 Unknown [id number] 2.16.840.1.250311.3.579.2. 727 1959 Unknown [id number] 2.16.840.1.949352.3.579.2. 727 1959 Unknown [id number] 2.16.840.1.509946.3.579.2. 727 1959 Unknown [id number] 2.16.840.1.484176.3.579.2. 727 1959 Unknown [id number] 2.16.840.1.202264.3.579.2. 727 1959 Unknown [id number] 2.16.840.1.255380.3.579.2. 727 1959 Private Health Insurance [id number] 2.16.840.1.424455.19 1959 Self-pay [id number] 1959 Self-pay 1959 Unknown [id number] 1959 Unknown [id number] Unknown [id number] Unknown [id number] 2.16.840.1.257071.3.579.2. 531 Unknown [id number] 2.16.840.1.583026.3.579.2. 531 Unknown [id number] 2.16.840.1.855194.3.579.2. 531 Social History Date Type Detail Facility Tobacco smoking stat [facility] Tobacco smoking consumption unknown [facility] Work Phone: Start: 1960 Sex Assigned At Not on file C [facility] Start: 10-24-2021 End: 11-03-2021 Exposure to SARS-CoV-2 (event) Not sure [facility] Work Phone: Start: 03-18-2021 End: 03-11-2025 Sex Assigned At [facility] Start: 03-18-2021 End: 03-11-2025 History of Social function [facility] Start: 03-12-2020 National Score (1-10 0), lower number is lower risk Not on file [facility] [place] Comment on above: Patient is a former 2 pack a day smoker. Quit over 15 years ago. Start: 03-17-2021 Gender identity Identifies as male gender (finding) [facility] Start: 03-17-2021 Sexual orientation Heterosexual (fin ding) [facility] Start: 06-27-2023 End: 04-15-2025 Tobacco smoking status NHIS Ex-smoker (finding) [facility] Comment on above: Patient is a former 2 pack a day smoker. Quit over 15 years ago. Start: 1960 Sex Assigned At Male F [facility] Start: 10-04-2024 End: 12-24-2024 Sex Male (finding) [facility] Start: 10-05-2024 SDOH Follow up SDOH Follow up [facility] Work Phone: Sexual Orientation [facility] History of tobacco use Current smoker [facility] History of tobacco use Cigarette Smoker [facility] Start: 03-18-2025 Tobacco Comment Almost 80 pack year smoker [facility] Goals Date Patient Goal Desired Activity /State Functional Status Date Assessment Result Facility 04-15-2025 Functional status Patient at Baseline [facility] Work Phone: 10-05-2024 Functional status Patient at Baseline [facility] Work Phone: Mental Status Date Assessment Result Facility 04-15-2025 Cognitive function Cognitive Sta tus Patient at Baseline [facility] Work Phone: 10-05-2024 Cognitive function Cognitive Sta tus Patient at Baseline [facility] Work Phone: Clinical Notes 11-04-2021 to 04-15-2025 Note Date & Type Note Facility 04-15-2025 History and physi lisa note Note Date/Time April 15, 2025 6:10pm [facility] [address] [place] [address] Hospitalist H&P Signed Patient: Ricardo Hylton MR#: [id number] : 1960 Acct:[id number] Age/Sex: 64 / M Adm Date: 5 Loc: ER Room: Type: [facility] ER Attending Dr: Copies to: ABRAHAM Cadena MD Shelly A Lehmann, [facility]-~ HPI DATE OF EXAMINATION: 04/15/25 CHIEF COMPLAINT: [...] negative unless noted below or in [facility]PI [facility] History Oxygen dependent 3L CONTINUOUS Obstructive sleep apnea (adult) (pediatric) Hypertension History of left heart catheterization GERD (gastroesophageal reflux disease) Essential hypertension Diabetes type 2, controlled Depression Chronic obstructive pulmonary disease Centrilobular emphysema Anxiety, generalized Chkao-2-wgwvrqdjzqd deficiency Family History (Updated 04/15/25 @ 18:03 [...] % (Auto) 8.6 % (.) 04/15/25 14:55 [place] % (Auto) 4.4 % (.) 04/15/25 14:55 Eos % (Auto) 0.3 % (.) 04/15/25 14:55 Baso % (Auto) 0.7 % (.) 04/15/25 14:55 Nucleat RBC Rel Count 0.1 /100 WBC (0-0.5) 04/15/25 14:55 Neut # (Auto) 8.3 x10E3/uL (1.8-7.7) H 04/15/25 14:55 Lymph # (Auto) 0.8 x10E3/uL (1.00-4.8) L 04/15/25 14:55 [place] # (Auto) 0.4 x10E3/uL (0.0-0.8) 04/15/25 14:55 [...] days): 2 Documented By: Serene Cho MD 04/15/251734 Signed By: <Electronically signed by Serene Cho MD> 04/15/251809 [facility] [employer] Work Phone: 1(755) 145-227109-29-2025 Evaluation note* Diagnosis Onset Date Resolution Status Admit Date Acute exacerbation of chroni c obstructive pulmonary disease (COPD) acute April 15, 2025 5:46pm [facility] [employer] Work Phone: 1(384) 830-465009-29-2025 [place] [address] Hospitalist H&P Signed Patient: Ricardo Hylton MR#: [id number] : 1960 Acct:[id number] Age/Sex: 64 / M Adm Date: 5 Loc: ER Room: Type: [facility] ER Attending Dr: Copies to: ABRAHAM Cadena MD Shelly A Lehmann, [facility]~ HPI DATE OF EXAMINATION: 04/15/25 CHIEF COMPLAINT: Shortness of breath HISTORY OF PRESENT ILLNESS: This is a 64 yo male with history of COPD who presents to the ED for evaluation of SOB. The patienthas been feeling increasingly SOB over the past 2-3 days, worse with exertion, associated with cough productive of dark sputum. Denies Fever or chills. CXR showed no infiltrate. He has increased workof breathing, especially with exertion. He received IV steroids and duoneb, and is admitted for further management Review of Systems Review of Systems All other systems reviewed & are negative unless noted below or in HPI [facility] Medical History Oxygen dependent 3L CONTINUOUS Obstructive sleep apnea (adult) (pediatric) Hypertension History of left heart catheterization GERD (gastroesophageal reflux disease) Essential hypertension Diabetes type 2, controlled Depression Chronic obstructive pulmonary disease Centrilobular emphysema Anxiety, generalized Nwroz-4-dtmkogaziha deficiency Family History (Updated 04/15/25 @ 18:03 [...] % (Auto) 8.6 % (.) 04/15/25 14:55 [place] % (Auto) 4.4 % (.) 04/15/25 14:55 Eos % (Auto) 0.3 % (.) 04/15/25 14:55 Baso % (Auto) 0.7 % (.) 04/15/25 14:55 Nucleat RBC Rel Count 0.1 /100 WBC (0-0.5) 04/15/25 14:55 Neut # (Auto) 8.3 x10E3/uL (1.8-7.7) H 04/15/25 14:55 Lymph # (Auto) 0.8 x10E3/uL (1.00-4.8) L 04/15/25 14:55 [place] # (Auto) 0.4 x10E3/uL (0.0-0.8) 04/15/25 14:55 [...] days): 2 Documented By: Serene Cho MD 04/15/255 Signed By: 04/15/25 1810 [facility]09-29-2025 Hospital Discharge instructions Patient Education 04/15/2025 14:15:27 Transrectal Ultrasound-Guided Prostate Biopsy Transrectal Ultrasound-Guided Prostate Biopsy A transrectal ultrasound-guided prostate biopsy is a procedure to remove samples of prostate tissuefor testing. The prostate is a walnut-sized gland that is located below the bladder and in front ofthe rectum. During this procedure, a small device (probe) is lubricated and put inside the rectum. The probe sends out sound waves that make a picture of the prostate and surrounding tissues (transrectal ultrasound). The images are used to help guide the process of removing the samples. The samplesare taken to a lab to be checked for prostate cancer. This procedure is usually done to evaluate the prostate gland of men who have raised (elevated) levels of prostate-specific antigen (PSA), which can be a sign of prostate cancer or prostate enlargement related to aging (benign prostatic hyperplasia, or BPH). Tell a health care provider about: Any allergies you have. All medicines you are taking, including vitamins, herbs, eye drops, creams, and blaq-huy-nbqnhwl medicines. Any problems you or family members have had with anesthetic medicines. Any bleeding problems you have. Any surgeries you have had. Any medical conditions you have. Any prostate infections you have had. What are the risks? Generally, this is a safe procedure. However, problems may occur, including: Prostate infection. Bleeding from the rectum. Blood in the urine. Allergic reactions to medicines. Damage to surrounding structures such as blood vessels, organs, or muscles. Difficulty passing urine. Nerve damage. This is usually temporary. What happens before the procedure? Medicines Ask your health care provider about: Changing or stopping your regular medicines. This is especially important if you are taking diabetes medicines or blood thinners. Taking medicines such as aspirin and ibuprofen. These medicines can thin your blood. Do not take these medicines unless your health care provider tells you to take them. Taking vuaw-brw-rtxmpkm medicines, vitamins, herbs, and supplements. General instructions Follow instructions from your health care provider about eating and drinking. In most instances, you will not need to stop eating and drinking completely before the procedure. You will be given an enema. During an enema, a liquid is injected into your rectum to clear out waste. You may have a blood or urine sample taken. Ask your health care provider what steps will be taken to help prevent infection. These steps may include: ?Washing skin with a germ-killing soap. ?Taking antibiotic medicine. If you will be going home right after the procedure, plan to have a responsible adult: ?Take you home from the hospital or clinic. You will not be allowed to drive. ?Care for you for the time you are told. What happens during the procedure? An IV will be inserted into one of your veins. You will be given one or both of the following: ?A medicine to help you relax (sedative). ?A medicine to numb the area (local anesthetic). You will be placed on your left side, and your knees will be bent toward your chest. A probe with lubricated gel will be placed into your rectum, and images will be taken of your prostate and surrounding structures. Numbing medicine will be injected into your prostate. A biopsy needle will be inserted through your rectum or perineum and guided to your prostate using the ultrasound images. Prostate tissue samples will be removed, and the needle and probe will then be removed. The biopsy samples will be sent to a lab to be tested. The procedure may vary among health care providers and hospitals. What happens after the procedure? Your blood pressure, heart rate, breathing rate, and blood oxygen level will be monitored until youleave the hospital or clinic. You may have some discomfort in the rectal area. You will be given pain medicine as needed. If you were given a sedative during the procedure, it can affect you for several hours. Do not drive or operate machinery until your health care provider says that it is safe. It is up to you to get the results of your procedure. Ask your health care provider, or the department that is doing the procedure, when your results will be ready. Keep all follow-up visits. This is important. Summary A transrectal ultrasound-guided biopsy removes samples of tissue from your prostate using ultrasound-guided sound waves to help guide the process. This procedure is usually done to evaluate the prostate gland of men who have raised (elevated) levels of prostate-specific antigen (PSA), which can be a sign of prostate cancer or prostate enlargement related to aging. After your procedure, you may feel some discomfort in the rectal area. Plan to have a responsible adult take you home from the hospital or clinic, and follow up with yourhealth care provider for your results. This information is not intended to replace advice given to you by your health care provider. Make sure you discuss any questions you have with your health care provider. Document Revised: 12/28/2021 Document Reviewed: 12/28/2021 [employer] Patient Education 2023 [employer]. 04/15/2025 14:15:19 Prostate Cancer Screening Prostate Cancer Screening Prostate cancer screening is testing that is done to check for the presence of prostate cancer in men. The prostate gland is a walnut-sized gland that is located below the bladder and in front of therectum in males. The function of the prostate is to add fluid to semen during ejaculation. Prostatecancer is one of the most common types of cancer in men. Who should have prostate cancer screening? Screening recommendations vary based on age and other risk factors, as well as between the professional organizations who make the recommendations. In general, screening is recommended if: You are age 50 to 70 and have an average risk for prostate cancer. You should talk with your healthcare provider about your need for screening and [...] diagnosed with prostate cancer. The risk is higherif your family member's cancer occurred at an early age or if you have multiple family members withprostate cancer at an early age. ?Being a [...] is a blood test called the prostate-specific antigen(PSA) test. PSA is a protein that is [...] treatment? Where to find more information The [place] [employer]: www.cancer.org [place] [employer] Association: www.auanet.org Contact a health care [...] the recommended screening test for prostate cancer, butit has associated risks. Discuss the risks and [...] provider. Document Revised: 12/28/2021 Document Reviewed: 12/28/2021 [employer] Patient Education 2023 [employer]. Follow Up Care 04/12/2025 15:09:55 With:PHI GOSS, Joo Mendoza, URL Address: [address] [place], [place] [id number]- When: Unknown Comments:peter bx [facility] 09-29-2025 NotePatient Education Oncology Transrectal Ultrasound-Guided Prostate Biopsy A transrectal ultrasound-guided prostate biopsy is a procedure to remove samples of prostate tissuefor testing. The prostate is a walnut-sized gland that is located below the bladder and in front ofthe rectum. During this procedure, a small device (probe) is lubricated and put inside the rectum. The probe sends out sound waves that make a picture of the prostate and surrounding tissues (transrectal ultrasound). The images are used to help guide the process of removing the samples. The samplesare taken to a lab to be checked for prostate cancer. This procedure is usually done to evaluate the prostate gland of men who have raised (elevated) levels of prostate-specific antigen (PSA), which can be a sign of prostate cancer or prostate enlargement related to aging (benign prostatic hyperplasia, or BPH). Tell a health care provider about: ??? Any allergies you have. ??? All medicines you are taking, including vitamins, herbs, eye drops, creams, and nuqu-wji-fvilenn medicines. ??? Any problems you or family members have had with anesthetic medicines. ??? Any bleeding problems you have. ??? Any surgeries you have had. ??? Any medical conditions you have. ??? Any prostate infections you have had. What are the risks? Generally, this is a safe procedure. However, problems may occur, including: ??? Prostate infection. ??? Bleeding from the rectum. ??? Blood in the urine. ??? Allergic reactions to medicines. ??? Damage to surrounding structures such as blood vessels, organs, or muscles. ??? Difficulty passing urine. ??? Nerve damage. This is usually temporary. What happens before the procedure? Medicines Ask your health care provider about: ??? Changing or stopping your regular medicines. This is especially important if you are taking diabetes medicines or blood thinners. ??? Taking medicines such as aspirin and ibuprofen. These medicines can thin your blood. Do not take these medicines unless your health care provider tells you to take them. ??? Taking mkji-wrp-wvpedje medicines, vitamins, herbs, and supplements. General instructions ??? Follow instructions from your health care provider about eating and drinking. In most instances, you will not need to stop eating and drinking completely before the procedure. ??? You will be given an enema. During an enema, a liquid is injected into your rectum to clear outwaste. ??? You may have a blood or urine sample taken. ??? Ask your health care provider what steps will be taken to help prevent infection. These steps may include: ? Washing skin with a germ-killing soap. ? Taking antibiotic medicine. ??? If you will be going home right after the procedure, plan to have a responsible adult: ? Take you home from the hospital or clinic. You will not be allowed to drive. ? Care for you for the time you are told. What happens during the procedure? An IV will be inserted into one of your veins. ??? You will be given one or both of the following: ? A medicine to help you relax (sedative). ? A medicine to numb the area (local anesthetic). ??? You will be placed on your left side, and your knees will be bent toward your chest. ??? A probe with lubricated gel will be placed into your rectum, and images will be taken of your prostate and surrounding structures. ??? Numbing medicine will be injected into your prostate. ??? A biopsy needle will be inserted through your rectum or perineum and guided to your prostate using the ultrasound images. ??? Prostate tissue samples will be removed, and the needle and probe will then be removed. ??? The biopsy samples will be sent to a lab to be tested. The procedure may vary among health care providers and hospitals. What happens after the procedure? Your blood pressure, heart rate, breathing rate, and blood oxygen level will be monitored untilyou leave the hospital or clinic. ??? You may have some discomfort in the rectal area. You will be given pain medicine as needed. ??? If you were given a sedative during the procedure, it can affect you for several hours. Do not drive or operate machinery until your health care provider says that it is safe. ??? It is up to you to get the results of your procedure. Ask your health care provider, or the department that is doing the procedure, when your results will be ready. ??? Keep all follow-up visits. This is important. Summary ??? A transrectal ultrasound-guided biopsy removes samples of tissue from your prostate using ultrasound-guided sound waves to help guide the process. ??? This procedure is usually done to evaluate the prostate gland of men who have raised (elevated)levels of prostate-specific antigen (PSA), which can be a sign of prostate cancer or prostate enlargement related to aging. ??? After your procedure, you may feel some discomfort in the rectal area. ?? (more content not included)...[facility]09-09-2025 Telephone encounter Note* Telephone Encounter - Francisco Sosa LPN - 03/26/2025 12:48 PM EDT Called and spoke with pt, pt stated he will be heading to lab in [address] Mclean through [employer]. Will be sure to monitor for results. [facility]09-09-2025 Miscellaneous Notes* Telephone Encounter - Francisco Sosa LPN - 03/26/2025 12:48 PM EDT Called and spoke with pt, pt stated he will be heading to lab in [address] Mclean through [employer]. Will be sure to monitor for results. * Telephone Encounter - Leslye Mclean MD - 03/26/2025 12:27 PM EDT Please remind pt to get theophylline levels done today. I don't see the levels which was ordered for today His levels were high and if this persists to be high, he would need to be hospitalized for monitoring Please call him otto Thanks Leslye Mclean MD [facility] Telephone encounter Note * Telephone Encounter - Leslye Mclean MD - 03/26/2025 12:27 PM EDT Please remind pt to get theophylline levels done today. I don't see the levels which was ordered for today His levels were high and if this persists to be high, he would need to be hospitalized for monitoring Please call him otto Thanks Leslye Mclean MD [facility]09-08-2025 Telephone encounter Note* Telephone Encounter - Sola Hoskins LPN - 03/25/2025 3:40 PM EDT Phones being out I sent a [employer] message reiterating to d/c medication [facility]09-08-2025 Miscellaneous Notes* Telephone Encounter - Sola Hoskins LPN - 03/25/2025 3:40 PM EDT Phones being out I sent a [employer] message reiterating to d/c medication * Telephone Encounter - Leslye Mclean MD - 03/24/2025 8:27 PM EDT I called pt about his thophylline levels. It is high I called him to stop his theophylline. He is feeling well, and denies any new medications that may have interacted with the meds His labs showed that the levels are higher than we aim them to be. 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 High levels can be associated with neuro and cardiac toxicity Repeat lab to be done on Tuesday. He understands. I also advised them to seek emergency medical assistance if he experiences any symptoms of side effects such as arrhythmias/ seizures/ nausea/ vomiting/ diarrhea / headaches Thanks Leslye Mclean MD documented [facility] Telephone encounter Note * Telephone Encounter - Leslye Mclean MD - 03/24/2025 8:27 PM EDT I called pt about his thophylline levels. It is high I called him to stop his theophylline. He is feeling well, and denies any new medications that may have interacted with the meds His labs showed that the levels are higher than we aim them to be. 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 High levels can be associated with neuro and cardiac toxicity Repeat lab to be done on Tuesday. He understands. I also advised them to seek emergency medical assistance if he experiences any symptoms of side effects such as arrhythmias/ seizures/ nausea/ vomiting/ diarrhea / headaches Thanks Leslye Mclean MD [facility]09-03-2025 Hospital Discharge instructions Patient Education 03/20/2025 14:24:33 Prostate Cancer Screening Prostate Cancer Screening Prostate cancer screening is testing that is done to check for the presence of prostate cancer in men. The prostate gland is a walnut-sized gland that is located below the bladder and in front of therectum in males. The function of the prostate is to add fluid to semen during ejaculation. Prostatecancer is one of the most common types of cancer in men. Who should have prostate cancer screening? Screening recommendations vary based on age and other risk factors, as well as between the professional organizations who make the recommendations. In general, screening is recommended if: You are age 50 to 70 and have an average risk for prostate cancer. You should talk with your healthcare provider about your need for screening and [...] diagnosed with prostate cancer. The risk is higherif your family member's cancer occurred at an early age or if you have multiple family members withprostate cancer at an early age. ?Being a [...] is a blood test called the prostate-specific antigen(PSA) test. PSA is a protein that is [...] treatment? Where to find more information The [place] [employer]: www.cancer.org [place] [employer] Association: www.auanet.org Contact a health care [...] the recommended screening test for prostate cancer, butit has associated risks. Discuss the risks and [...] provider. Document Revised: 12/28/2021 Document Reviewed: 12/28/2021 [employer] Patient Education 2023 [employer]. Follow Up Care 11/28/2024 09:46:35 With:PHI GOSS, Joo Mendoza, URL Address: [facility] [address], [place] [address] When: Unknown [facility] 09-03-2025 NotePatient Education Oncology Prostate Cancer Screening Prostate cancer screening is testing that is done to check for the presence of prostate cancer in men. The prostate gland is a walnut-sized gland that is located below the bladder and in front of therectum in males. The function of the prostate is to add fluid to semen during ejaculation. Prostatecancer is one of the most common types of cancer in men. Who should have prostate cancer screening? Screening recommendations vary based on age and other risk factors, as well as between the professional organizations who make the recommendations. In general, screening is recommended if: ??? You are age 50 to 70 and [...] have a 10- to 15-year life expectancy. ??? You are younger than age 50, and you have these risk factors: ? Having a father, brother, or uncle who has been diagnosed with prostate cancer. The risk is higher if your family member's cancer occurred at an early age or if you have multiple family members with prostate cancer at an early age. ? Being a male who is Black or is of [place] or sub-Saharan descent. In general, screening is not recommended if: ??? You are younger than age 40. ??? You are between the ages of 40 and 49 and you have no risk factors. ??? You are 70 years of age or [...] is a blood test called the prostate-specific antigen(PSA) test. PSA is a protein that is made in the prostate. As you age, your prostate naturally produces more PSA. Abnormally high PSA levels may be caused by: ??? Prostate cancer. ??? An enlarged prostate that is not caused by cancer (benign prostatic hyperplasia, or BPH). This condition is very common in older men. ??? A prostate gland infection (prostatitis) or urinary tract infection. ??? Certain medicines such as male hormones (like [...] you may need more tests, such as: ??? A physical exam to check the size of your prostate gland, if not done as part of screening. ??? Blood and imaging tests. ??? A procedure to remove tissue samples from your prostate gland for testing (biopsy). This is theonly way to know for certain if you have prostate cancer. What are the benefits of prostate cancer screening? Screening can help to identify cancer at an early stage, before symptoms start and when the cancer can be treated more easily. ??? There is a small chance that screening [...] Questions to ask your health care provider ??? When should I start prostate cancer screening? What is my risk for prostate cancer? How often do I need screening? What type of screening tests do I need? How do I get my test results? What do my results mean? Do I need treatment? Where to find more information ??? The [place] Cancer [employer]: www.cancer.org ??? [place] U[employer] Association: www.auanet.org Contact a health care provider if: ??? You have difficulty urinating. ??? You have pain when you urinate or ejaculate. ??? You have blood in your urine or semen. ??? You have pain in your back or in the area of your prostate. Summary ??? Prostate cancer is a common type of cancer in men. The prostate gland (more content not included)...[facility]09-03-2025 Telephone encounter Note* Telephone Encounter - Sola Hoskins LPN - 03/20/2025 12:17 PM EDT [place] [facility] [place] [facility]09-03-2025 Miscellaneous Notes* Telephone Encounter - Sola Hoskins LPN - 03/20/2025 12:17 PM EDT [place] [facility] [place] documented in this encounterCh[facility]09-[facility]25 Telephone encounter Note * Telephone Encounter - Sola Hoskins LPN - 03/19/2025 12:08 PM EDT Images from the original note were not included. Message Received: Yesterday Leslye Mclean MD [facility] Nurse Pls fax note to patient's PCP thanks TAMMIE notes faced to Dr Cowart via Epic [facility]09-02-2025 Miscellaneous Notes* Telephone Encounter - Sola Hoskins LPN - 03/19/2025 12:08 PM EDT Images from the original note were not included. Message Received: Yesterday Leslye Mclean MD P [facility] Pulmaurice Nurse Pls fax note to patient's PCP thanks TAMMIE notes faced to Dr Cowart via Epic documented in this encounterCleveland [id number] Telephone encounter Note * Telephone Encounter - Sola Hoskins LPN - 03/13/2025 3:54 PM EDT Images from the original note were not included. Message Received: 2 days ago Leslye Mclean MD P Avw Pulm Nurse Pls get pulmonary records from Dr. Gonzalez from [place] also get PFT echo and ct chest thanks Faxed CARLOS ENRIQUE request from [facility] with confirmation [facility]08-27-2025 Miscellaneous Notes* Telephone Encounter - Sola Hoskins LPN - 03/13/2025 3:54 PM EDT Images from the original note were not included. Message Received: 2 days ago Leslye Mclean MD P Avw Pulm Nurse Pls get pulmonary records from Dr. Gonzalez from [place] also get PFT echo and ct chest thanks Faxed CARLOS ENRIQUE request from [facility] with confirmation documented in this encounterChillicothe Hospital08-26-2025 Telephone encounter Note * Telephone Encounter - Francisco Sosa LPN - 03/12/2025 8:59 AM EDT Leslye Mclean MD P Avw Pulm Nurse BRIAN GET pap REPORT FROM [facility] Thanks Called and spoke with [facility], was informed pt needs to call to establish that Dr. Mclean is provider andthey can send us information on the patient. Called and lvm x1 for pt. Sent MCM x1 [facility]08-26-2025 Miscellaneous Notes* Telephone Encounter - Francisco Sosa LPN - 03/12/2025 8:59 AM EDT Leslye Mclean MD P Avw Pulm Nurse PLS GET pap REPORT FROM [facility] Thanks Called and spoke with [facility], was informed pt needs to call to establish that Dr. Mclean is provider andthey can send us information on the patient. Called and lvm x1 for pt. Sent MCM x1 documented in this encounterChillicothe Hospital08-25-2025 Instructions* Patient Instructions* Leslye Mclean MD - 03/11/2025 2:28 PM EDT We [...] You have a follow-up appointment with your trial justice, Dr. Mtz, on Tuesday. This is important as some of your inhalers may affect your heart rhythm. We discussed further evaluation for your COPD: - I will order additional breathing tests, including lung volume testing, to assess for air trapping or hyperinflation. This will help determine if you are a candidate for [place] valves. - A 6-minute walk test will also be scheduled to evaluate your functional capacity. This will not be done today but will be arranged before your next visit. - I will order a quantitative CT scan to assess your lungs and monitor the lung nodules previously identified. If possible, this can be done in [place] for your convenience. - Your case will be presented at our monthly conference to determine if you are a candidate for [place] valves. If the tests indicate you are [...] seek immediate medical attention. documented in this encounterChillicothe [facility]08-[facility]-2025 History of Present illness Narrative* Leslye Mclean MD - 03/11/2025 1:45 PM EDT Consultation requested by Dr. Gonzalez for an opinion regarding COPD and alpha 1 antitrypsin deficiency. My final recommendations will be communicated back to the requesting physician by way of shared Medical record or letter to requesting physician via US mail. Ricardo Hylton is a 64 year old male who presents for dyspnea and COPD He is accompanied by his . Recording using [employer] software for draft documentation of the visit was discussed with the patient/authorized liability claims representative; all questions welcomed and answered. Patient/authorized liability claims representative agreed to proceed HPI: Ricardo Hylton is a 64-year-old male with a history of COPD, respiratory failure, HTN, RANCHO, GERD, DM,and bipolar disorder, presenting for evaluation of worsening dyspnea and management of COPD. Ricardo reports a significant worsening of dyspnea over the past year, noting that he is unable to walk more than 15-20 feet without supplemental oxygen. He has been on continuous oxygen therapy for atleast 10 years, currently using 3 L/min during the day and 2 L/min at night via CPAP. He also uses 3 L/min when ambulating. He was previously able to walk 45 minutes on a treadmill during pulmonary rehabilitation in 2020, but now struggles with short distances. Ricardo has a history of Alpha-1 antitrypsin deficiency and has been receiving infusions weekly for the past 6 months, after a previous interruption due to insurance issues. He is also on chronic prednisone 10 mg daily for the past 5 years, Trelegy inhaler, albuterol inhaler (used 5-6 times daily), and theophylline. He has a nebulizer but admits to not using it as frequently as prescribed. He denies use of DaliResp or Combivent, any other new COPD medications. No prior pulmonary rehab attendance reported. He was hospitalized in October for COVID-19, during which he received Remdesivir and steroids. Prior to this, he had not been hospitalized for COPD exacerbations for a significant period. Ricardo has a history of two cardiac catheterizations, the most recent being approximately 8 years ago. He also had an echocardiogram recently due to arrhythmias. He has a follow-up appointment with a trial justice at the [facility]. He was evaluated for a lung transplant in 2020 but was deemed ineligible due to being in too good shape and weight issues. His lowest weight was 212 lbs, but he has since gained weight and is currently 235 lbs. He is on Ozempic for weight management. He expresses interest in learning more about the [place] valve procedure, and shared her worries about lung transplant. He wants to hold off to lung txp evaluation at this time. Ricardo quit smoking 12-15 years ago after a 40-year history of smoking 2 packs per day. He used Chantix to aid in smoking cessation. He denies any known allergies or history of asthma. He has a dog athome and lives with his spouse. He has grown children from a previous marriage but no grandchildren. 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 DianDian REVIEW OF SYSTEMS GENERAL: No unintentional weight loss, Fatigue, or fever HEENT: Negative for frequent or significant headaches, No changes in hearing or vision, no nose bleeds or other nasal problems RESPIRATORY: dyspnea chronic. No cough/ congestion CARDIOVASCULAR: Negative for chest pain, leg swelling or palpitations. GASTROINTESTINAL: No nausea, vomiting, or diarrhea. MUSCULOSKELETAL: Negative for joint pain or swelling NEUROLOGIC: Negative for focal numbness or weakness All other systems were reviewed and Negative PAST MEDICAL HISTORY Diagnosis Date Mkenh-8-uofglsjfbde deficiency (HCC) COPD (chronic obstructive pulmonary disease) (HCC) COVID-03 November 2024 - ADMITTED TO [facility] HTN (hypertension) RANCHO (obstructive sleep apnea) Respiratory failure (HCC) : History reviewed. No pertinent family history.: SOCIAL HISTORY[1] Allergies: ALLERGIES Allergen Reactions Metformin Intolerance diarrhea Current Medications: odlno-3-bbmcbmwkie inhibitor (Human) 1,000 mg in water for injection Inject 1,000 mg intravenously one time a week. pravastatin (PRAVACHOL) 40 mg tablet Take 1 tablet by mouth daily at bedtime. predniSONE (DELTASONE) 10 mg tablet Take 1 tablet by mouth once daily. guaiFENesin (MUCINEX) 600 mg 12 hr tablet Take 2 tablets by mouth twice daily. dilTIAZem CD (CARDIZEM CD) 240 mg 24 hr capsule Take 1 capsule by mouth once daily. ARIPiprazole (ABILIFY) 10 mg tablet Take 10 mg by mouth once daily. aspirin, enteric coated (ASPIRIN, ENTERIC COATED) 81 mg EC tablet Take 81 mg by mouth once daily. [employer] 2 SENSOR kit as directed. TRELEGY ELLIPTA 100-62.5-25 mcg INHALE 1 PUFF BY MOUTH DAILY glipiZIDE (GLUCOTROL) 10 mg tablet Take 10 mg by mouth twice daily. HYDROcodone-acetaminophen (NORCO) 5-325 mg per tablet TAKE 1 TABLET BY MOUTH FOUR TIMES A DAY NEEDED COMBIVENT RESPIMAT 20-100 mcg/actuation inhaler INHALE 1 PUFF BY MOUTH 4 TIMES A DAY metoprolol succinate ER (TOPROL XL) 25 mg 24 hr tablet Take 25 mg by mouth once daily. omeprazole (PRILOSEC) 20 mg capsule Take 20 mg by mouth once daily. OZEMPIC 0.25 mg or 0.5 mg(2 mg/1.5 mL) pnij INJECT 0.5MG SUBCUTANEOUSLY WEEKLY theophylline ER (UNIPHYL) 400 mg 24 hr tablet Take 400 mg by mouth twice daily. valACYclovir (VALTREX) 1 gram Take 2,000 mg by mouth twice daily. VENLAFAXINE ER 150 MG TABLET,EXTENDED RELEASE 24 HR Take 150 mg by mouth twice daily. BP 134/84 Pulse 113 Wt 106.6 kg (235 lb) SpO2 97% BMI 34.69 kg/m PHYSICAL EXAM General appearance: well appearing, alert, in no acute distress on supplemental oxygen Skin: no suspicious rashes or lesions Nose/Sinuses: no drainage or sinus tenderness Oropharynx: oropharynx normal, no thrush Respiratory: lungs clear to auscultation. No wheezing, rhonchi, and rales unlabored on room air no chest deformities noted Cardiovascular: RRR without murmur,S1 normal, S2 normal. Extremities: No deformities, edema Neuro: Speech normal, mental status intact Lab Results: CBC with diff: WBC 7.21 03/24/2021 RBC 4.66 03/24/2021 Hemoglobin 14.7 03/24/2021 Hematocrit 43.5 03/24/2021 MCV 93.3 03/24/2021 MCH 31.5 03/24/2021 MCHC 33.8 03/24/2021 RDW-CV 14.1 03/24/2021 Platelet Count 370 03/24/2021 MPV 9.4 03/24/2021 Neut% 66.9 03/24/2021 Lymph% 21.4 03/24/2021 [place]% 9.3 03/24/2021 Eosin% 1.4 03/24/2021 Baso% 1.0 03/24/2021 Abs Neut (ANC) 4.81 03/24/2021 Abs [place] 0.67 03/24/2021 Abs Eosin 0.10 03/24/2021 Abs Baso 0.07 03/24/2021 Glucose (mg/dL) Date Value 03/24/2021 93 Potassium (mmol/L) Date Value 03/24/2021 4.2 Sodium (mmol/L) Date Value 03/24/2021 139 Chloride (mmol/L) Date Value 03/24/2021 102 CO2 (mmol/L) Date Value 03/24/2021 25 Creatinine (mg/dL) Date Value 03/24/2021 0.93 BUN (mg/dL) Date Value 03/24/2021 13 Anion Gap (mmol/L) Date Value 03/24/2021 12 Calcium (mg/dL) Date Value 03/24/2021 9.5 Protein, Total (g/dL) Date Value 03/24/2021 6.9 Albumin (g/dL) Date Value 03/24/2021 4.3 Bilirubin, Total (mg/dL) Date Value 03/24/2021 0.3 Alkaline Phosphatase (U/L) Date Value 03/24/2021 85 AST (U/L) Date Value 03/24/2021 17 ALT (U/L) Date Value 03/24/2021 14 SPIROMETRY BASELINE ONLY and DLCO TODAY Severe airflow obstructions No significant response noted Diffusion capacity is reduced Leslye Mclean MD PRE-BRONCH POST-BRONCH [employer] LLN Pred ULN %Pred [...] 90-100 0.07 0 FIVC 3.40 3.54 4 NQV16-81 0.30 1.21 2.61 4.56 11 -3.39 0.32 12 5 -3.34 ExpiredTime 17.14 16.29 -4 TimeToFEFMax 0.04 0.08 98 EDYTA 0.02 0.03 96 VolExtrap% 0 1 100 LUNG DIFFUSION DLCOunc 17.58 19.17 25.83 33.72 68 -2.09 DLCOStdPB 17.37 19.17 25.83 33.72 67 -2.15 VA 5.02 5.04 6.24 7.54 80 -1.66 Kco 3.46 3.12 4.17 5.30 83 -1.09 2020 IMPRESSION: Spirometry indicates severe obstruction. The TLC is normal. The RV/TLC is elevated indicating air trapping. The diffusing capacity is mildly reduced. The diffusing capacity independent of alveolar volume (kCO), is normal. The presence of a reduced lung diffusion capacity - that normalizes when measured independent of alveolar volume (kCO) is consistent with a nonparenchymal disorder but does not rule out parenchymal or pulmonary vascular disorder. Electronically Signed On 03-25-2021 14:13:24 EDT by Richa Ma MD [employer] LL[employer] Pred ULN % FVC L 3.89 3.40 4.48 5.57 86.8 FEV1 L 1.45 2.59 3.46 4.27 42.0 FEV1/FVC % 37 65 77 88 48.2 PEF L/s 4.10 6.72 8.99 11.26 45.6 FEF50% L/s 0.39 1.59 4.26 6.94 9.2 FIF50% L/s 4.59 FE%FIF % 8 FIVC L 4.02 OOV92-35% L/s 0.39 1.38 2.86 4.87 13.7 XXH970% sec 14.75 FETPEF sec 0.04 VBe%FV % 1 VBEex L 0.03 FIVC/FVC % 104 ----- ----- ----- ----- ----- FRCpl L 4.64 2.11 3.57 5.03 130.1 ERVpl L 1.33 1.15 1.52 1.89 87.3 RVpl L 3.31 1.46 2.22 2.98 148.9 VCpl L 4.21 3.40 4.48 5.57 94.1 ICpl L 2.89 3.22 3.22 3.22 89.7 TLCpl L 7.53 5.25 6.85 8.46 109.8 RV%TLCpl % 44 24 33 42 133.8 ----- ----- ----- ----- ----- ----- ----- ----- ----- ----- DLCO_SBml/(min*m19.07 19.95 27.91 35.88 68.3 DLCOcSBml/(min*m19.48 19.95 27.91 35.88 69.8 VA_SB L 5.98 5.32 6.68 8.05 89.5 DL/VAml/(min*mmHg3.19 3.05 4.26 5.46 74.9 KCOc_SBml/(min*mm3.25 3.05 4.26 5.46 76.5 IVC_SB L 3.82 3.40 4.48 5.57 85.3 IC_SB L 2.89 3.22 3.22 3.22 89.8 BHT sec 11.71 Hb g(Hb)/dL 14.90 %COHb % 4.90 ----- ----- ----- ----- ----- Pbar mmHg 734.00 Assessment/Plan: 1. Chronic obstructive pulmonary disease, unspecified COPD type ([facility]) (J44.9) 2. Chronic respiratory failure with hypoxia ([facility]) (J96.11) 3. 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 Worsening dyspnea over the past year, with significant decline in functional capacity. Hospitalized in October for COVID-19, treated with IV steroids and Remdesivir. On weekly Prolastin infusions for ckzlh-5-qyztebjtrva deficiency. Current regimen includes Trelegy, albuterol inhaler (5-6 times daily), albuterol nebulizer, theophylline, and chronic prednisone 10 mg daily for 5-6 years. Prior pulmonary rehab in 2020 with improved function and weight loss; nowBMI increased from 212 to 235. Prior lung transplant evaluation deferred due to being too well and above target BMI. - Order lung volumes and quantitative CT scan to assess for hyperinflation and air trapping; will determine candidacy for [place] valve placement. - Order 6-minute walk test to assess functional capacity. - Order labs, including zdagk-5-voenbdzvscy levels. - Re-engage transplant team for reassessment. - Discussed [place] valve procedure, including risks and benefits; patient expressed understanding. - Plan to present case at monthly conference if criteria met. 4. Chronic rhinitis (J31.0) Chronic rhinitis with vasomotor component, including rhinorrhea triggered by eating. - Start Atrovent nasal spray BID as needed. 5. Obstructive sleep apnea (adult) (pediatric) (G47.33) Obstructive sleep apnea managed with CPAP; patient reports good adherence and sleep quality. - Continue current CPAP therapy. Obtain records from DME on usage AND SETTINGS. He is requesting supplies. 6. Former smoker (Z87.891) - remains absteinent. Quit about 12 years ago - Follow-up in 2 months to review results and discuss next steps. -Leslye Mclean MD [1] [facility] NoteHNO ID: [id number] Author: LESLYE MCLEAN MD Service: ? Author Type: Physician Type: Progress Notes Filed: 03/18/2025 08:35 Note Text: Consultation requested by Dr. Gonzalez for an opinion regarding COPD and alpha 1 antitrypsin deficiency. My final recommendations will be communicated back to the requesting physician by way of shared Medical record or letter to requesting physician via US mail. Ricardo Hylton is a 64 year old male who presents for dyspnea and COPD He is accompanied by his . Recording using [employer] software for draft documentation of the visit was discussed with the patient/authorized liability claims representative; all questions welcomed and answered. Patient/authorized liability claims representative agreed to proceed HPI: Ricardo Hylton is a 64-year-old male with a history of COPD, respiratory failure, HTN, RANCHO, GERD, DM, and bipolar disorder, presenting for evaluation of worsening dyspnea and management of COPD. Ricardo reports a significant worsening of dyspnea over the past year, noting that he is unable to walk more than 15-20 feet without supplemental oxygen. He has been on continuous oxygen therapy for at least 10 years, currently using 3 L/min during the day and 2 L/min at night via CPAP. He also uses 3 L/min when ambulating. He was previously able to walk 45 minutes on a treadmill during pulmonary rehabilitation in 2020, but now struggles with short distances. Ricardo has a history of Alpha-1 antitrypsin deficiency and has been receiving infusions weekly for the past 6 months, after a previous interruption due to insurance issues. He is also on chronic prednisone 10 mg daily for the past 5 years, Trelegy inhaler, albuterol inhaler (used 5-6 times daily), and theophylline. He has a nebulizer but admits to not using it as frequently as prescribed. He denies use of DaliResp or Combivent, any other new COPD medications. No prior pulmonary rehab attendance reported. He was hospitalized in October for COVID-19, during which he received Remdesivir and steroids. Prior to this, he had not been hospitalized for COPD exacerbations for a significant period. Ricardo has a history of two cardiac catheterizations, the most recent being approximately 8 years ago. He also had an echocardiogram recently due to arrhythmias. He has a follow-up appointment with a trial justice at the [facility]. He was evaluated for a lung transplant in 2020 but was deemed ineligible due to being in too good shape and weight issues. His lowest weight was 212 lbs, but he has since gained weight and is currently 235 lbs. He is on Ozempic for weight management. He expresses interest in learning more about the [place] valve procedure, and shared her worries about lung transplant. He wants to hold off to lung txp evaluation at this time. Ricardo quit smoking 12-15 years ago after a 40-year history of smoking 2 packs per day. He used Chantix to aid in smoking cessation. He denies any known allergies or history of asthma. He has a dog at home and lives with his spouse. He has grown children from a previous marriage but no grandchildren. 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 DianDian REVIEW OF SYSTEMS GENERAL: No unintentional weight loss, Fatigue, or fever HEENT: Negative for frequent or significant headaches, No changes in hearing or vision, no nose bleeds or other nasal problems RESPIRATORY: dyspnea chronic. No cough/ congestion CARDIOVASCULAR: Negative for chest pain, leg swelling or palpitations. GASTROINTESTINAL: No nausea, vomiting, or diarrhea. MUSCULOSKELETAL: Negative for joint pain or swelling NEUROLOGIC: Negative for focal numbness or weakness All other systems were reviewed and Negative PAST MEDICAL HISTORY Diagnosis Date Mqayq-6-azbatcdooym deficiency (HCC) COPD (chronic obstructive pulmonary disease) (HCC) COVID-03 November 2024 - ADMITTED TO [facility] HTN (hypertension) RANCHO (obstructive sleep apnea) Respiratory failure (HCC) : History reviewed. No pertinent family history.: SOCIAL HISTORY[1] Allergies: ALLERGIES Allergen Reactions Metformin Intolerance diarrhea Current Medications: cdpxm-4-nmcrdgwxxp inhibitor (Human) 1,000 mg in water for injection Inject 1,000 mg intravenously one time a week. pravastatin (PRAVACHOL) 40 mg tablet Take 1 tablet by mouth daily at bedtime. predniSONE (DELTASONE) 10 mg tablet Take 1 tablet by mouth once daily. guaiFENesin (MUCINEX) 600 mg 12 hr tablet Take 2 tablets by mouth twice daily. dilTIAZem CD (CARDIZEM CD) 240 mg 24 hr capsule Take 1 capsule by mouth once daily. ARIPiprazole (ABILIFY) 10 mg tablet Take 10 mg by mouth once daily. aspirin, enteric coated (ASPIRIN, ENTERIC COATED) 81 mg EC tablet Take 81 mg by mouth once daily. [employer] MARTIN 2 SENSOR kit as directed. TRUONG ELLIPTA 100-62.5-25 mcg INHALE 1 PUFF BY MOUTH DAILY g (more content not included)...[facility]08-05-2025 NotePatient Education Infectious Disease Skin Yeast Infection A [...] and physical exam. Your health care provider maycheck for yeast by taking scrapings of the skin to be viewed under a microscope. How is this treated? This condition is treated with medicine. Medicines may be prescribed or available over the counter.The medicines may be: ??? Taken by mouth (orally). ??? Applied as a cream or powder to your skin. Follow these instructions at home: ??? Take or apply qwiq-uxx-qgmiadn and prescription medicines only as told by [...] on the skin. ??? Take or apply awuz-vwm-yrbstyw and prescription medicines only as told by [...] provider. Document Revised: 09/22/2021 Document Reviewed: 09/22/2021 [employer] Patient Education ? 2023 [employer].[facility] 01-24-2025 [facility] Note Chief Complaint: New patient [...] oxygen dependent respiratory failure and uses oxygen gceefi-jgw-ixibj. He also uses inhalers multiple times a [...] deviation now present Echocardiography Report: Transthoracic Echo [facility] A17 Date of service: 03/24/2021 2:23:59 PM [employer]CE [employer] OTHER RANKS Ordering physician: LYLE HILLIARD Indication: Lung transplant [...] displacement is 3.0 cm (more content not included)...[facility]05-14-2025 Hospital Discharge instructions Patient Education 11/28/2024 09:39:09 Prostatitis Prostatitis Prostatitis is swelling or inflammation of the prostate gland, also called the prostate. This glandis about 1.5 inches wide and 1 inch [...] quickly and results from an acute bacterial infectionin the prostate gland. It is usually associated [...] when the body's disease-fighting system attacks healthy tissuein the body by mistake. Psychological factors. These [...] Follow these instructions at home: Medicines Take nbql-yuf-rpjjzmu and prescription medicines only as told by your health care provider. If you were prescribed an antibiotic medicine, take it as told by your health care provider. Do notstop using the antibiotic even if you start to feel better. Managing pain and swelling Take sitz baths as directed by your health care provider. For a sitz bath, sit in warm water that is deep enough to cover your hips and buttocks. If directed, apply heat to the affected area as often as told by your health care provider. Use theheat source that your health care provider recommends, [...] important. Where to find more information [place] of Diabetes and Digestive and Kidney Diseases: [...] depends on the type of prostatitis. Take nubd-eye-mqosdwd and prescription medicines only as told by your health care provider. Get help right away of you have chills, feel light-headed, feel like you may faint, cannot urinate,or have blood or blood clots in your urine. This information is not intended to replace advice given to you by your health care provider. Make sure you discuss any questions you have with your health care provider. Document Revised: 05/19/2023 Document Reviewed: 05/19/2023 [employer] Patient Education 2023 [employer]. 11/28/2024 09:31:37 Prostate Cancer Screening Prostate Cancer Screening Prostate cancer screening is testing that is done to check for the presence of prostate cancer in men. The prostate gland is a walnut-sized gland that is located below the bladder and in front of therectum in males. The function of the prostate is to add fluid to semen during ejaculation. Prostatecancer is one of the most common types of cancer in men. Who should have prostate cancer screening? Screening recommendations vary based on age and other risk factors, as well as between the professional organizations who make the recommendations. In general, screening is recommended if: You are age 50 to 70 and have an average risk for prostate cancer. You should talk with your healthcare provider about your need for screening and [...] diagnosed with prostate cancer. The risk is higherif your family member's cancer occurred at an early age or if you have multiple family members withprostate cancer at an early age. ?Being a [...] is a blood test called the prostate-specific antigen(PSA) test. PSA is a protein that is [...] treatment? Where to find more information The [place] [employer] Society: www.cancer.org [place] [employer] Association: www.auanet.org Contact a health care [...] the recommended screening test for prostate cancer, butit has associated risks. Discuss the risks and [...] provider. Document Revised: 12/28/2021 Document Reviewed: 12/28/2021 [employer] Patient Education 2023 [employer]. Follow Up Care 11/01/2024 14:15:46 With:PHI GOSS, Joo R, URL Address: [facility] [address] [place] [address]- When: Unknown [facility] 05-14-2025 NoteUrology Office/Clinic Note HPI Staff New Pt. Internal Referral [...] of infection, there is a good chance thathis PSA elevation/fluctuation is d/t chronic low grade [...] Feels he empties completely. Nocturia sometimes 2x/night. [employer] reports urine is very strong smelling, likely dehydration however foul odor can indicate infection. [employer] feels his urine is foul smelling. 3. Chronic prostatitis (N41.1: Chronic prostatitis) See #1 and #2. -Start Doxycycline 100 mg bid x 3 wks. SEs discussed. Sent to [facility]. 4. Former smoker (Z87.891: Personal history of nicotine dependence) 37 yrs, 2 PPD. Increased risk for urothelial cancer. 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 This glandis about 1.5 inches wide and 1 inch [...] other disorders of the urinary tract or reproductivetract. ??? Acute bacterial prostatitis. This type starts [...] these instructions at home: Medicines ??? Take blft-hlx-albhqdw and prescription medicines only as told by your health care provider. ??? If you were prescribed an antibiotic medicine, take it as told by your health care provider. Donot stop using the antibiotic even if you start to feel better. Managing pain and swelling ??? Take sitz baths as directed by your health care provider. For a sitz bath, sit in warm water that is deep enough to cover your hips and buttocks. ??? If directed, apply heat to the affected area as often as told by your health care provider. Usethe heat source that your health care provider [...] provider. This is important. (more content not included)...[facility]04-10-2025 NotePatient Education Endocrinology Diabetes Mellitus and Exercise [...] an expert trained in diabetes care (certified pesticide applicator) can help you make an activity plan. [...] stroke). Where to find more information ??? [place] Diabetes Association: diabetes.org ??? Association of Diabetes Care & Education Specialists: diabeteseducator.org This information is not intended to replace advice given to you by your health care provider. Make sure you discuss any questions you have with your health care provider. Document Revised: 12/22/2022 Document Reviewed: 12/22/2022 Elsevier Patient Education ? 2023 [employer].[facility] 10-05-2024 Progress note Author Eden Greenwood [facility] Note Date/Time October 05, 2024 12: 00am [facility] [address] [place] [address] Hospitalist Progress Note Signed Patient: Ricardo Hylton MR#: [id number] : 1960 Acct:[id number] Age/Sex: 63 / M Adm Date: 5 Loc: Room: [address] [place] [address] Type: ADM IN Attending Dr: Eden Greenwood [...] Tablet PO 10/04/25 08:59 Not Given BID [facility] Dexamethasone 2 mg/ 6 mg 10/04/24 09:00 [...] Mg/0.4 Ml Syringe SUBCUT 10/05/25 09:59 DAILY@1000 [facility] Furosemide 40 mg 10/04/24 08:00 10/04/24 07:50 Furosemide 40 Mg Tablet PO 10/04/25 07:59 40 mg DAILY@0800 [facility] Administration Glucose 0 gm 10/04/24 02:37 Dextrose 40% Gel 15 Gm Tube PO 10/04/25 02:36 PRN PRN Hypoglycemia Glucose 0 gm 10/04/24 14:37 Dextrose 40% Gel 15 Gm Tube PO 10/04/25 14:36 PRN PRN Hypoglycemia Guaifenesin 600 mg 10/04/24 21:00 Guaifenesin 600 Mg Tab.Er.12h PO 10/04/25 20:59 BID [facility] Ceftriaxone Sodium 1 gm in 50 mls @ 100 mls/hr 10/04/24 02:30 10/04/24 03:39 Rocephin IV 100 mls/hr Q24H [facility] Administration Remdesivir 100 mg/ Sodium 250 mls @ 250 mls/hr 10/05/24 09:00 Chloride IV 10/08/24 09:59 Q24H [facility] Insulin Aspart 0 units 10/04/24 17:00 Insulin Aspart 300 Units/3 Ml SUBCUT 10/04/25 16:59 TID.WM.HS [facility] Protocol Lisinopril 5 mg 10/04/24 09:00 [...] of chronic obstructive pulmonary disease (COPD): (2) Lottk-2-pkjzqipbozg deficiency: (3) Obstructive sleep apnea (adult) (pediatric): (4) Hypertension: Plan Documented By: Eden Greenwood MD 10/04/24 1437 Signed By: <Electronically signed by Eden Greenwood MD> 10/05/24 0000 [facility] Work Phone: [phone] [place] [address] Hospitalist Progress Note Signed Patient: Ricardo Hylton MR#: [id number] : 1960 Acct:[id number] Age/Sex: 63 / M Adm Date: 5 Loc: Room: [address] [place] [address] Type: ADM IN Attending Dr: Eden Greenwood [...] 300 Units/3 Ml SUBCUT 10/04/25 16:59 TID.WM.HS [facility] Protocol Lisinopril 5 mg 10/04/24 09:00 [...] of chronic obstructive pulmonary disease (COPD): (2) Lzclc-1-owjcatlxhmo deficiency: (3) Obstructive sleep apnea (adult) (pediatric): (4) Hypertension: Plan Documented By: Eden Greenwood MD 10/04/24 1438 Signed By: 10/05/24 0000 [facility]03-20-2025 Hospital Discharge instructions Additional Instructions Dietitian recommendations: Ensure clear, 1 container, twice daily with meals You tested positive for COVID-19 on 10/04/24. Please see attached COVID-19 discharge instructions. Continue use of CPAP and oxygen as per chronic orders.[facility] Work Phone: 1(506) 648-954603-20-2025 History and physical note Author Clifton Calderon [facility] Note Date/Time October 04, 2024 3:4 7am [facility] [address] [place] [address] Hospitalist H&P Signed with Addleida Patient: Ricardo Hylton MR#: [id number] : 1960 Acct:[id number] Age/Sex: 63 / M Adm Date: 5 Loc: Room: [address] [place] [address] Type: ADM IN Attending Dr: Clifton Calderon MD Copies to: MD Sarah Watts, [facility]~ ADDENDUM1 Respiratory panel resulted COVID positive, will start remdesivir and dexamethasone given increased O2 needs. Addendum Documented By: Clifton Calderon MD 10/04/24 034 Addendum Signed By: <Electronically signed by Clifton [...] negative unless noted below or in HPI [facility] Medical History Obstructive sleep apnea (adult) (pediatric) Hypertension History of left heart catheterization GERD (gastroesophageal reflux disease) Essential hypertension Diabetes type 2, controlled Depression Chronic obstructive pulmonary disease Centrilobular emphysema Anxiety, generalized Nbzft-7-hikvxzhupff deficiency Family History Father Cancer Legacy FamHx [...] % (Auto) 11.7 % (.) 10/04/24 00:07 [place] % (Auto) 12.6 % (.) 10/04/24 00:07 Eos % (Auto) 0.2 % (.) 10/04/24 00:07 Baso % (Auto) 0.7 % (.) 10/04/24 00:07 Nucleat RBC Rel Count 0.2 /100 WBC (0-0.5) 10/04/24 00:07 Neut # (Auto) 9.5 x10E3/uL (1.8-7.7) H 10/04/24 00:07 Lymph # (Auto) 1.5 x10E3/uL (1.00-4.8) 10/04/24 00:07 [place] # (Auto) 1.6 x10E3/uL (0.0-0.8) H 10/04/24 [...] of chronic obstructive pulmonary disease (COPD): (2) Hesdt-7-qlpawkrtzvx deficiency: (3) Obstructive sleep apnea (adult) (pediatric): [...] signed by Clifton Calderon MD> 10/04/24 0244 [facility] Work Phone: 1(647) 622-683003-20-2025 [place] [address] Hospitalist H&P Signed with Addenda Patient: Ricardo Hylton MR#: [id number] : 1960 Acct:[id number] Age/Sex: 63 / M Adm Date: 5 Loc: Room: [address] [place] [address] Type: ADM IN Attending Dr: Clifton Calderon MD Copies to: MD Sarah Watts, [facility]~ ADDENDUM1 Respiratory panel resulted COVID positive, [...] negative unless noted below or in HPI [facility] Medical History Obstructive sleep apnea (adult) (pediatric) Hypertension History of left heart catheterization GERD (gastroesophageal reflux disease) Essential hypertension Diabetes type 2, controlled Depression Chronic obstructive pulmonary disease Centrilobular emphysema Anxiety, generalized Xpmfl-2-jdthitdhjhl deficiency Family History Father Cancer [facility] Problem: Diagnosed with Cancer Family history of [...] % (Auto) 11.7 % (.) 10/04/24 00:07 [place] % (Auto) 12.6 % (.) 10/04/24 00:07 Eos % (Auto) 0.2 % (.) 10/04/24 00:07 Baso % (Auto) 0.7 % (.) 10/04/24 00:07 Nucleat RBC Rel Count 0.2 /100 WBC (0-0.5) 10/04/24 00:07 Neut # (Auto) 9.5 x10E3/uL (1.8-7.7) H 10/04/24 00:07 Lymph # (Auto) 1.5 x10E3/uL (1.00-4.8) 10/04/24 00:07 [place] # (Auto) 1.6 x10E3/uL (0.0-0.8) H 10/04/24 [...] of chronic obstructive pulmonary disease (COPD): (2) Fvjge-2-otieyznytbc deficiency: (3) Obstructive sleep apnea (adult) (pediatric): [...] MD 10/04/24 0136 Signed By: 10/04/24 0244 [facility]03-20-2025 Evaluation note* Diagnosis Onset Date Resolution Status Admit Date Acute exacerbation of chroni c obstructive pulmonary disease (COPD) acute October 04, 2024 12:57am Slqpv-7-ezythuzgsbv deficiency acute October 04, 2024 12:57am Diabetes type 2, controlled acute October 04, 2024 12:57am Essential hypertension acute [facility] 2024 12:57am Hypertension acute October 04, 2024 12:57am Obstructive sleep apnea (bernardino lt) (pediatric) acute October 04, 2024 12:57am [facility] Work Phone: 1(642) 518-272811-18-2024 NoteFamily Medicine Office/Clinic Note Chief Complaint ent [...] Previous treatment: None., 06/04/2024 (more content not included)...[facility]:Result Comment: Electronically Signed By: SARAH TRIVEDI CNP.mitchel\Date and Time Signed: 06/04/24 15:43 [id number] NotePatient Education Immunology Allergic Rhinitis, Adult Allergic [...] ??? Atopic dermatitis or eczema. This is group home (chronic) irritation and swelling of the skin. [...] related conditions, such as: ??? Asthma. ??? [place] eye. This is eye swelling and irritation [...] and dust regularly. General instructions ??? Take cnpk-gky-fjlugpu and prescription medicines only as told by your provider. ??? Drink enough fluid to keep your pee pale yellow. Where to find more information ??? [place] [employer], Asthma & Immunology: aaaai.org [...] see if the sy (more content not included)...[facility]2024 NotePatient Education Endocrinology Diabetes Mellitus and Exercise [...] an expert trained in diabetes care (certified pesticide applicator) can help you make an activity plan. [...] stroke). Where to find more information ??? [place] [employer]: diabetes.org ??? Association of Diabetes Care & Education Specialists: diabeteseducator.org This information is not intended to replace advice given to you by your health care provider. Make sure you discuss any questions you have with your health care provider. Document Revised: 12/22/2022 Document Reviewed: 12/22/2022 Elsevier Patient Education ? 2023 [employer].[facility] 08-26-2023 Evaluation note* Encounter Date Diagnosis Assessment Notes Treatment Notes Treatment Clinical Notes Aug, Anxiety, generalized (ICD-10 - F41.1) Friday Other 01-18-2024 Evaluation note* Encounter Date Diagnosis Assessment Notes Treatment Notes Treatment Clinical Notes Jul, Acute cervical radiculopathy (ICD-10 - M54.12) Friday Other 12-26-2023 Evaluation note* Encounter Date Diagnosis Assessment Notes Treatment Notes Treatment Clinical Notes Jun, Acute cervical radiculopathy (ICD-10 - M54.12) Friday Other 12-11-2023 Evaluation note* Encounter Date Diagnosis [...] F41.1) Chronic problem that is stable presently. Friday Other 12-08-2023 Evaluation note* Encounter Date Diagnosis Assessment Notes Treatment Notes Treatment Clinical Notes Jun, Anxiety, generalized (ICD-10 - F41.1) Friday Other 11-17-2023 Evaluation note* Encounter Date Diagnosis Assessment Notes Treatment Notes Treatment Clinical Notes May, Acute cervical radiculopathy (ICD-10 - M54.12) Friday Other 11-14-2023 Evaluation note* Encounter Date Diagnosis Assessment Notes Treatment Notes Treatment Clinical Notes May, Anxiety, generalized (ICD-10 - F41.1) 14 May, 2023 Acute cervical radiculopathy (ICD-10 - M54.12) [employer] Other 10-23-2023 Evaluation note* Encounter Date Diagnosis Assessment Notes Treatment Notes Treatment Clinical Notes Apr, Acute cervical radiculopathy (ICD-10 - M54.12) [employer] Other 10-09-2023 Miscellaneous Notes* Telephone Encounter - [...] any questions. Yaima Meraz RN, BSN Pre-Lung Leveler Helper [facility]* Encounter Date Diagnosis Assessment Notes Treatment Notes Treatment Clinical Notes Mar, Acute cervical radiculopathy (ICD-10 - M54.12) [facility] [employer] Other 08-28-2023 Evaluation note* Encounter Date Diagnosis Assessment Notes Treatment Notes Treatment Clinical Notes Feb, Acute cervical radiculopathy (ICD-10 - M54.12) [facility] [employer] Other 08-24-2023 Miscellaneous Notes* Telephone Encounter - [...] being full. Yaima Meraz RN, BSN Pre-Lung Leveler Helper documented in this encounterCh[facility]ic[facility]08-22-2023 Evaluation note* Encounter Date Diagnosis Assessment Notes Treatment Notes Treatment Clinical Notes Feb, Type 2 diabetes mellitus with hyperglycemia, without long-term current use of insulin (ICD-10 - E11.65) Friday Other 08-17-2023 Evaluation note* Encounter Date Diagnosis [...] lose weight to improved his severe COPD> Friday Other 08-17-2023 Evaluation note* Encounter Date Diagnosis [...] lose weight to improve his lung function Friday Other 07-27-2023 Evaluation note* Encounter Date Diagnosis Assessment Notes Treatment Notes Treatment Clinical Notes Jan, Acute cervical radiculopathy (ICD-10 - M54.12) Friday Other 06-15-2023 Evaluation note* Encounter Date Diagnosis [...] the zephyr procedure can be started through [place]. Keep appt in January w his office. Friday Other 04-28-2023 Evaluation note* Encounter Date Diagnosis Assessment Notes Treatment Notes Treatment Clinical Notes Oct, Acute cervical radiculopathy (ICD-10 - M54.12) Friday Other 02-16-2023 Evaluation note* Encounter Date Diagnosis Assessment Notes Treatment Notes Treatment Clinical Notes Aug, Chronic obstructive pulmonary disease (ICD-10 - J44.9) Continue present meds including lengthy steroid taper. Continue to followup w Dr. Gonzalez. He has not [facility] Friday Other 04-27-2022 Miscellaneous Notes* Telephone Encounter - [...] options. Maximino Callaway Transplant documented in this encounterChillic[facility]04-20-2022 Miscellaneous Notes* Telephone Encounter - Molly Gan APRN.[email or web address] - 11/04/2021 2:27 PM EDT Patient not in attendance for lung transplant appts on 11/04. Attempted to contact patient to reschedule. left requesting call back. Molly Gan, MSN, CASH MANAGER-CINETECHNICIAN Lung Leveler Helper documented in this encounterChillicothe HospitalEvaluation + Plan note Future Appointments Appointment Date:04/24/2024 01:40:00 PM Scheduled Provider:SARAH TRIVEDI CNP [facility] Type: Open Appointment Date:01/29/2025 01:00:00 PM Scheduled Provider: [facility] App[facility] Type: Medicare Wellness Subsequent Future Scheduled Tests Laboratory* HCV Antibody RFX to Quant PCR [facility] Future Appointments Appointment Date:01/24/2025 01:20:00 PM Scheduled Provider:SARAH TRIVEDI CNP [facility] Appointment Type: Open Appointment Date:01/29/2025 01:00:00 PM Scheduled Provider: [facility] Appoint[facility] Type:FM Medicare Wellness Subsequent Diagnostic Tests Pending * HgbA1c 10/25/24 * HCV Antibody RFX to Quant PCR 10/25/24 * PSA Total 10/25/24 [facility] Evaluation + Plan note Future Appointments Appointment Date:01/24/2025 01:20:00 PM Scheduled Provider:SARAH TRIVEDI CNP [facility] Appointment Type: Open Appointment Date:01/29/2025 01:00:00 PM Scheduled Provider: [facility] Appointment Type:FM Medicare Wellness Subsequent Appointment Date:02/06/2025 11:00:00 AM Scheduled Provider: Location:[facility] MELISSA Singh Appointment Type:URO Nurse Visit Appointment Date:02/13/2025 11:15:00 AM Scheduled Provider:Joo YIP MD Location:[facility] MELISSA Singh Appointment Type:URO Office Visit [facility] Evaluation + Plan note Future Appointments Appointment Date:05/28/2025 02:30:00 PM Scheduled Provider: [facility] Appointment Type:FM Medicare Wellness Subsequent Appointment Date:05/28/2025 03:20:00 PM Scheduled Provider:SARAH TRIVEDI CNP Location:[facility] Natasha Appointment Type:FM Open Appointment Date:03/19/2026 01:15:00 PM Scheduled Provider:Joo YIP MD Location:[facility] Antony Appointment Type:URO Office Visit [facility] Antony evaluation note* Diagnosis Chronic obstructive pulmonary disease, unspecified COPD type (HCC)- Primary Lung transplant candidate documented in this encounter [facility] note* Diagnosis Xdsad-7-ezslprqdfbx deficiency (HCC)- Primary Ykryt-0-oxzgyzeneio deficiency documented in this encounter [facility] noteNo [employer] Other evaluation note* Diagnosis Onset Date Resolution Status Skin lesion of right arm acu te [facility] Work Phone: evaluation note* Diagnosis Onset Date Resolution Status Admit Date Acute exacerbation of chroni c obstructive pulmonary disease (COPD) acute October 04, 2024 12:57am Diabetes type 2, controlled acute [facility] 2024 12:57am Essential hypertension acute [facility] 2024 12:57am [facility] Work Phone: evaluation note* Diagnosis Chronic obstructive pulmonary disease, unspecified COPD type (HCC) documented in this encounter [facility] note* Diagnosis Chronic obstructive pulmonary disease, unspecified COPD type (HCC)- Primary documented in this encounter [facility] note* Diagnosis Chronic obstructive pulmonary disease, unspecified COPD type (HCC)- Primary Chronic respiratory failure with hypoxia (HCC) Chronic respiratory failure 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 Chronic rhinitis Obstructive sleep apnea (adult) (pediatric) Former smoker Personal history of tobacco use, presenting hazards to health Chronic obstructive pulmonary disease, unspecified COPD type (HCC)- Primary documented in this encounter [facility] note* Diagnosis Adverse effect of theophylline- Primary documented in this encounter [facility] noteNo assessment information availableParkview [facility] Work Phone: History general Narrative - Reported* Type Description Date Medical History Hypertension Medical History COPD Medical History RANCHO Medical History Centrilobular Emphysema Medical History Obesity Medical History Alpha 1 Antitrypsin Deficieny Medical History Depression Medical History Diabetes Type 2 Medical History GERD Medical History Essential Hypertension. Surgical History heart catheterization, no stent s Hospitalization History SEE ABOVE Friday Other Hospital course Narrative No data available for this section [facility] Dis[facility] No data available for this section [facility] HospitalProgress note No data available for this section [facility] HospitalReason for referral (narrative)No reason for referral information availableParkview [facility] Work Phone: Summary Purpose Family History No Family History Records Found Relationship Condition Age at Onset Recorded Date/T fadi father Malignant neoplasm Unknown Family history of lung cancer Unknown Unknown Relationship Condition Age at Onset Recorded Date/T fadi Not Specified Chronic obstructive pulmonary disease Un known father Family history of lung cancer Unknown Unknown Malignant neoplasm Unknown Advance Directives No Advanced Directives Records [...] pulmonary disease (COPD) October 04, 2024 12:57am Okldy-4-rtllmghghsh deficiency September 12:57am Diabetes type 2, controlled October 04, 2024 12:57am Essential hypertension October 04, 2024 12:57am Hypertension October 04, 2024 12: 57am Obstructive sleep apnea (adult) (pediatr ic) October 04, 2024 12:57am Chief Complaint Admit Date R97.20 Alyssa 25th, 2025 9:16pm Chief Complaint Admit Date R97.20 April 11, 2025 9:16pm diff breathing, COPD April 15 5:46pm Reason for Visit Admit Date Acute exacerbation of chroni c obstructive pulmonary disease (COPD) April 15, 2025 5:46pm Additional Source Comments (unrecognized sect ion and [...] content) DATE CREATED AUTHOR 03/17/2019 [facility] DATE CREATED AUTHOR AUTHOR'S ORGANIZ ATION 10/06/2022 [facility] DATE CREATED AUTHOR AUTHOR'S ORGANIZ ATION 10/28/2024 Shi As[facility] DATE CREATED AUTHOR AUTHOR'S ORGANIZ ATION [facility]/20/2025 [facility] DATE CREATED AUTHOR AUTHOR'S ORGANIZ ATION 02/23/2025 [facility] DATE CREATED AUTHOR AUTHOR'S ORGANIZ ATION 03/12/2025 [facility] DATE CREATED AUTHOR AUTHOR'S ORGANIZ ATION 03/22/2025 Shi Dunn [facility] DATE CREATED AUTHOR AUTHOR'S ORGANIZ ATION 03/24/2025 [place] DATE CREATED AUTHOR AUTHOR'S ORGANIZ ATION 04/24/2025 [facility] DATE CREATED AUTHOR AUTHOR'S ORGANIZ ATION 04/25/2025 Shi Asim [facility] DATE CREATED AUTHOR AUTHOR'S ORGANIZ ATION 04/27/2025 [facility] Source Comments (unrecognize d section and content) In the event this informatio n is protected by the Federal Confidentiality of Alcohol and Drug Abuse Patient Records regulations: The Federal rules restrict any use of the information to criminally investigate or prosecute any alcohol or drug abuse patient.[facility] HospitalIn the event this information is protected by the Federal Confidentiality of Alcohol and Drug Abuse Patient Records regulations: The Federal rules restrict any use of the information to criminally investigate or prosecute any alcohol or drug abuse patient.[facility] HospitalIn the event this information is protected by the Federal Confidentiality of Alcohol and Drug Abuse Patient Records regulations: The Federal rules restrict any use of the information to criminally investigate or prosecute any alcohol or drug abuse patient.[facility] HospitalIn the event this information is protected by the Federal Confidentiality of Alcohol and Drug Abuse Patient Records regulations: The Federal rules restrict any use of the information to criminally investigate or prosecute any alcohol or drug abuse patient.[facility] HospitalIn the event this information is protected by the Federal Confidentiality of Alcohol and Drug Abuse Patient Records regulations: The Federal rules restrict any use of the information to criminally investigate or prosecute any alcohol or drug abuse patient.[facility] HospitalIn the event this information is protected by the Federal Confidentiality of Alcohol and Drug Abuse Patient Records regulations: The Federal rules restrict any use of the information to criminally investigate or prosecute any alcohol or drug abuse patient.[facility] HospitalIn the event this information is protected by the Federal Confidentiality of Alcohol and Drug Abuse Patient Records regulations: The Federal rules restrict any use of the information to criminally investigate or prosecute any alcohol or drug abuse patient.[facility] HospitalIn the event this information is protected by the Federal Confidentiality of Alcohol and Drug Abuse Patient Records regulations: The Federal rules restrict any use of the information to criminally investigate or prosecute any alcohol or drug abuse patient.[facility] HospitalIn the event this information is protected by the Federal Confidentiality of Alcohol and Drug Abuse Patient Records regulations: The Federal rules restrict any use of the information to criminally investigate or prosecute any alcohol or drug abuse patient.[facility] HospitalIn the event this information is protected by the Federal Confidentiality of Alcohol and Drug Abuse Patient Records regulations: The Federal rules restrict any use of the information to criminally investigate or prosecute any alcohol or drug abuse patient.[facility] HospitalIn the event this information is protected by the Federal Confidentiality of Alcohol and Drug Abuse Patient Records regulations: The Federal rules restrict any use of the information to criminally investigate or prosecute any alcohol or drug abuse patient.[facility] HospitalIn the event this information is protected by the Federal Confidentiality of Alcohol and Drug Abuse Patient Records regulations: The Federal rules restrict any use of the information to criminally investigate or prosecute any alcohol or drug abuse patient.[facility] HospitalIn the event this information is protected by the Federal Confidentiality of Alcohol and Drug Abuse Patient Records regulations: The Federal rules restrict any use of the information to criminally investigate or prosecute any alcohol or drug abuse patient.[facility] HospitalIn the event this information is protected by the Federal Confidentiality of Alcohol and Drug Abuse Patient Records regulations: The Federal rules restrict any use of the information to criminally investigate or prosecute any alcohol or drug abuse patient.[facility] HospitalIn the event this information is protected by the Federal Confidentiality of Alcohol and Drug Abuse Patient Records regulations: The Federal rules restrict any use of the information to criminally investigate or prosecute any alcohol or drug abuse patient.[facility] HospitalIn the event this information is protected by the Federal Confidentiality of Alcohol and Drug Abuse Patient Records regulations: The Federal rules restrict any use of the information to criminally investigate or prosecute any alcohol or drug abuse patient.[facility] HospitalIn the event this information is protected by the Federal Confidentiality of Alcohol and Drug Abuse Patient Records regulations: The Federal rules restrict any use of the information to criminally investigate or prosecute any alcohol or drug abuse patient.[facility] Care Teams (unrecognized sec tion and content) French Edge Operator Relationship Specialty Start Date End Date Bryon Cowart MD [address] [place] [address] PCP - General Family Practice 03/12/20 Vanda Gonzalez DO Referring Pulmonary and Critical Care Medicine 03/12/20 French Edge Operator Relationship Specialty Start Date End Date Bryon Cowart MD [address] [place] [address] PCP - General Family Practice 03/12/20 Vanda Gonzalez DO Referring Pulmonary and Critical Care Medicine 03/12/20 French Edge Operator Relationship Specialty Start Date End Date Bryon Cowart MD [address] [place] [address] PCP - General Family Practice 03/12/20 Vanda Gonzalez DO Referring Pulmonary and Critical Care Medicine 03/12/20 French Edge Operator Relationship Specialty Start Date End Date Bryon Cowart MD [address] [place] [address] PCP - General Family Medicine 03/12/20 Vanda Gonzalez DO [address] [place] [id number] Referring Pulmonary and Critical Care Medicine 03/12/20 [...] Active Member Role Status Dates Sarah Trivedi [facility] Primary Care Provider Active Team Status: Active Member Role Status Dates Rubén Pina DO Attending Provider Active Sta rt: August 20, 2024 Team Status: Active Member Role Status Dates Pranay Bai Jr, MD Emergency Provider Active Start: October 04, 2024 Sarah Trivedi [facility] Primary Care Provider Active Start: October 04, 2024 Clifton Calderon MD Admit Provider, Atte nding Provider Active Start: October 04, 2024 Team Status: Inactive Member Role Status Dates Pranay Bai Jr, MD Emergency Provider Active Start: October 04, 2024 End: October 05, 2024 Sarah Trivedi [facility] Primary Care Provider Active Start: October 04, 2024 End: October 05, 2024 Clifton Calderon MD Admit Provider Active Start: 2024 End: October 05, 2024 Eden Greenwood MD Attending Provider Active St art: October 04, 2024 End: October 05, 2024 French Edge Operator Relationship Specialty Start Date End Date Bryon Cowart MD [address] [place] [id number] PCP - General Family Medicine 03/12/20 Vanda Gonzalez DO [address] [facility] [place] [id number] Referring Pulmonary and Critical Care Medicine 03/12/20 French Edge Operator Relationship Specialty Start Date End Date Bryon Cowart MD [address] [facility] [place] [phone] PCP - General Family Medicine 03/12/20 Vanda Gonzalez DO [address] [facility] [place] [phone] Referring Pulmonary and Critical Care Medicine 03/12/20 French Edge Operator Relationship Specialty Start Date End Date Bryon Cowart MD [address] [facility] [place] [phone] PCP - General Family Medicine 03/12/20 Vanda Gonzalez DO [address] [facility] [place] [phone] Referring Pulmonary and Critical Care Medicine 03/12/20 French Edge Operator Relationship Specialty Start Date End Date Bryon Cowart MD [address] [facility] [place] [phone] PCP - General Family Medicine 03/12/20 Vanda Gonzalez DO [address] [facility] [place] [phone] Referring Pulmonary and Critical Care Medicine 03/12/20 French Edge Operator Relationship Specialty Start Date End Date Bryon Cowart MD [address] [facility] [place] [address] PCP - General Family Medicine 03/12/20 Vanda Gonzalez DO [address] [place] [address] Referring Pulmonary and Critical Care Medicine 03/12/20 French Edge Operator Relationship Specialty Start Date End Date Bryon Cowart MD [address] [facility] [place] [address] PCP - General Family Medicine 03/12/20 Vanda Gonzalez DO [address] [facility] [place] [address] Referring Pulmonary and Critical Care Medicine 03/12/20 Team Status: Active Member Role Status Dates Sarah Trivedi [facility] Primary Care Provider Active Start: March 11, 2025 Leslye Mclean MD Attending Provider Active Start: Marek smith 2024 Team Status: Active Member Role Status Dates Sarah Trivedi [facility] Primary Care Provider Active Start: March 26, 2025 Leslye Mclean MD Attending Provider Active Start: Andrew joshi 2024 Team Status: Inactive Member Role Status Dates Sarah Trivedi [facility] Primary Care Provider Active Start: April 11, 2025 End: April 11, 2025 Joo Yip MD Attending Provider Active St art: April 11, 2025 End: April 11, 2025 Team Status: Active Member Role Status Dates Sarah Trivedi [facility] Primary Care Provider Active Start: April 15, 2025 Abel Perez PA-C Emergency Provider Active Start: April 15, 2025 Serene Cho MD Admit Provider Active Start: Se ptember 2024 Serene Cho MD Attending Provider Active Start : April 15, 2025 Reason for Visit (unrecogniz ed section and content) Reason Comments Missed appointments Reason Comments Patient Update Reason Comments Follow up on Lung Transplant Referral Reason Comments Closing Referral Reason Comments Spirometry Specialty Diagnoses / Procedures Referred By Contac t Referred To Contact [facility] Diagnoses Chronic obstructive pulmonary disease, unspecified COPD type (HCC) Procedures SPIROMETRY WITH DILATOR IF OBSTRUCTED BRNCDILAT RSPSE SPMTRY PRE&[place] [address] [place] [address] Phone: tel: fax: Respiratory [address] [address] Referral ID Status Reason Start Date Expiration Date V isits Requested Visits Authorized [id number] Closed Auto-Generate d Referral 03/06/2025 04/05/2026 1 1 Specialty Diagnoses / Procedures Referred By Contac t Referred To [facility] Diagnoses Chronic obstructive pulmonary disease, unspecified COPD type (HCC) Procedures LUNG DIFFUSION CAPACITY (DLCO) [place] [address] [place] [address] Phone: tel: fax: [address] [address] Referral ID Status Reason Start Date Expiration Date V isits Requested Visits Authorized [id number] Closed Auto-Generate d Referral 03/06/2025 04/05/2026 1 1 Specialty Diagnoses / Procedures Referred By Contac t Referred To [facility] Diagnoses Chronic obstructive pulmonary disease, unspecified COPD type (HCC) Procedures LUNG VOLUMES Leslye Mclean [place] [id number] [place] [phone] Phone: tel: fax: Respiratory [address] [address] Referral ID Status Reason Start Date Expiration Date V isits Requested Visits Authorized [id number] Closed Auto-Generate d Referral 03/11/2025 07/17/2025 1 1 Reason Comments COPD Goals (unrecognized section and content) Goals may [...] BE BASED ON THE PRIMARY CLINICAL RECORDS. [facility]. provides no warranty or guarantee of the accuracy or completeness of information in this document.
[2025-04-30 07:58] VITALS: BP 153/89; PULSE 100; TEMP 36.3; O2SAT 98; BMI 36.3
[2025-04-30] MEDS: GENTAMICIN SULFATE 80 MG/2 ML VIAL 120 MG IM (08:01)
--- OUTSIDE RECORDS SUMMARY | 2025-04-30 08:48 | XMS_ITS | CCD ---
Author Organization Unknown Care Team Providers Care Wastewater Analyst Lab Analyst Name Role Phone Unavailable Primary Care Provider Unavailabl e Unavailable Chronic Care Management Unavaila ble Summary Purpose DataExchange Insurance Providers Payer name Policy type / Coverage type Covered constitution party ID Effective Begin Date Effective End Date [facility] [id number] Unknown Unknown Family History Family History data not found Medication Administered No Medication Administered data Reason For Visit No Reason For Visit data Medical Equipment No Medical Equipment data Advance Directives No Advance Directive data
[2025-04-30] MEDS: LIDOCAINE 2% JELLY 20 ML UR (08:49)
[2025-04-30] MEDS: LIDOCAINE HCL 1% 100 MG/10 ML MDV INJ (08:54)
--- NOTE | 2025-04-30 09:12 | PM.URSON ---
Urology Surgery Operative Note Operative Note Procedure Date: 04/30/25 Time Out Performed: yes Pre-op Diagnosis: 1. Elevated PSA. 2. PI-RADS 4 lesion at the right mid gland on prostate MRI Post-op Diagnosis: same as pre-op Procedures performed: 1. Transrectal prostate MRI fusion biopsies Anesthesia: local and other (Periprostatic block) Primary Surgeon: Joo Trejo Complications: None Estimated blood loss (mL): 5 Findings: Peripheral calcifications Specimens: 1. 6 separate biopsies taken from the area of interest sent separately labeled area of interest. 2. 6 mapped out biopsies from the left side and 6 mapped out biopsies from the right side. Drains: None Indications for Procedures: This gentleman has a elevated PSA of 5 and a 10% free PSA. DESEAN is benign. He was found to have a PI-RADS 4 lesion on his MRI. He now presents for transrectal MRI prostate fusion biopsies. He has signed an informed consent after risks were explained. Some of these risks include bleeding, infection, urosepsis and anesthesia to name a few. Detailed description of Procedure: The patient was kept on his gurseneca bed and brought into the operating room. He was placed in the left lateral decubitus position. Timeout was done by all parties in the room. We all agreed upon the patient's identification and the planned procedures for this patient. I started by passing Betadine soaked sponges per rectum and swabbing his rectum. This was done several times. I then passed 2% lidocaine gel per rectum. The Workman go ultrasound probe was then passed per rectum. Segmentation was then done so as diffuse the MRI images onto the live ultrasound. A 1% plain lidocaine periprosthetic block was then done in the usual fashion. We then lined up the area of interest and started taking biopsies from the prostate with the needle gun. We took a total of 6 biopsies from the area of interest and these were sent separately labeled as the area of interest. We then did our standard mapped out biopsies. We started on the left side and went from the base towards the apex. 6 cores were obtained from the left. A similar maneuver was done on the right side. At the end of the procedure we had 18 satisfactory cores. He was then transferred to PACU and discharged to home in good condition.
--- NOTE | 2025-04-30 09:30 | PC.NURSE ---
Patient urinated without issue post biopsy.
== END 2025-04-30 09:30 | disposition home or self-care (01) ==
LOC: SURGOUT 07:46
PROVIDERS: PCP Nurse Practitioner Family; Visit Provider Urology
PROC: (CPT 55700; principal; 2025-04-30 08:25)
DX: C61 Malignant neoplasm of prostate (principal); R97.20 Elevated prostate specific antigen [PSA]; N40.2 Nodular prostate without lower urinary tract symptoms; F41.9 Anxiety disorder, unspecified; J44.9 Chronic obstructive pulmonary disease, unspecified; E11.9 Type 2 diabetes mellitus without complications; G47.30 Sleep apnea, unspecified; E78.5 Hyperlipidemia, unspecified; N40.0 Benign prostatic hyperplasia without lower urinary tract symptoms
CPT/HCPCS: 55700; J1580

== ENCOUNTER 2025-05-01 13:52 | Outpatient (OUT) | payer MEDICARE, SELFPAY ==
--- OUTSIDE RECORDS SUMMARY | 2025-03-12 10:00 | XMS_ITS ---
Author Organization [facility] [place] Address [address] [place] [address] Care Team Providers Care Acid Cleaner Name Role Phone Dali Blue Primary Care Provider Ludivina vailaDouglas Cruz Unavailable [phone] REASON FOR VISIT 3m F/U - COPD, RANCHO Encounters Encounter Location Date Provider Diagnosis Pulmonary Medicine [place] [address] [place] [address] 03/12/2025 Douglas Pacheco Plan Of Treatment No Information Progress Notes * Ramiro HALLMAN ADOB: 0 (64 yo M)Acc No.[id number]:03/12/2025 UNLOCKED PROGRESS NOTE Follow Up Patient: Ramiro VILLAGOMEZ Provider: Babak Pacheco DO :1960 A ge:64 Y S ex:Male Date:03/12/2025 Address:[address] [place], [place] [phone] Pcp:BIANKA Turner Subjective: * Chief Complaints: * 1 . 3m F/U - COPD, RANCHO. * Medical History: Objective: * Vitals: Assessment: Plan: * Treatment: * * Electronic signature of Rosalba Pacheco DO on 05/01/2025 at 01:56 PM EDT Sign off status: Pending Visit Status: O FF CANC (OFFICE CANCEL) * Provider: Babak Pacheco DO Date: 0 03/12/2025 Generated for Allyson antony/Missy/Jeremias on: 1 01:56 PM EDT
--- OUTSIDE RECORDS SUMMARY | 2025-04-30 20:43 | XMS_ITS | Continuity of Care Document ---
Author Organization [facility] Address [address] [place] [address] Phone Care Team Providers Care Photo Stylist Name Role Phone [facility] Care Provider + Leslye Lester MD Attending Provider Joo Trejo MD Attending Provider [phone] Abel Perez PA-C Emergency Provider Serene Cho MD Admit Provider Gael Marrero DO Attending Provider [phone] Care Teams Visit Care Team Team Status: Active Member Role Status Dates Dali Trivedi [facility] Primary Care Provider Active Start: March 11, 2025 Leslye Lester MD Attending Provider Active Start: Marek smith 2024 Visit Care Team Team Status: Active Member Role Status Dates [facility]ali [facility]riv[facility] Care Provider Active Start: March 26, 2025 Leslye Lester MD Attending Provider Active Start: Andrew joshi 2024 Visit Care Team Team Status: Inactive Member Role Status Dates Dali Trivedi [facility] Primary Care Provider Active Start: April 11, 2025 End: April 11, 2025 Joo Trejo MD Attending Provider Active St art: April 11, 2025 End: April 11, 2025 Visit Care Team Team Status: Inactive Member Role Status Dates Dali Trivedi [facility] Primary Care Provider Active Start: April 15, 2025 End: April 17, 2025 Abel Perez PA-C Emergency Provider Active Start: April 15, 2025 End: April 17, 2025 Serene Cho MD Admit Provider Active Start: pt2024 End: April 17, 2025 Gael Marrero DO Attending Provider Active Sta rt: April 15, 2025 End: April 17, 2025 Visit Care Team Team Status: Active Member Role Status Dates Dali Trivedi [facility] Primary Care Provider Active Start: April 23, 2025 Leslye Lester MD Attending Provider Active Start: O ct2024 Patient Care Team Team Status: Inactive Member Role Status Dates Joo Trejo MD Attending Provider Active St art: April 30, 2025 End: April 30, 2025 Chief Complaint and Reason for Visit Chief Complaint Admit Date R97.20 April 11, 2025 9:16pm diff breathing, COPD April 15 5:46pm Unknown April 30, 2025 9 :06am Reason for Visit Admit Date Acute exacerbation of chroni c obstructive pulmonary disease (COPD) April 15, 2025 5:46pm Reason for Referral Referring Provider Name Referring Provider Address Referring Provider Phone Referral Date Requested Appointment Date Referral Reason Serene Cho [address] [address] Work Phone: You have b een scheduled for a follow up appointment for the following date and time, please call to reschedule if needed. Health Concerns Concerns A [facility] screening has identified you as FRAIL [...] Four Ways to Beat the Frailty Risk [email or web address]-[email or web address] ways- hz-poji-qdf-fra ilty-risk Allergies, Adverse Reactions, Alerts Allergen Type Severity Reaction Last Updated Verified Status metformin Allergy Unknown Diarrhea April 15, 2025 2:33pm Y es Active Social History Smoking Status Status Start Date End Date Date of Observa tion Ex-smoker (finding) Marmiguel a r 2024 6:40pm Observation Status Observation Response Date of Response Legal Sex Male (finding) Sex Assigned At Male October Family History Relationship Condition Age at Onset Recorded Date/T fadi Not Specified Chronic obstructive pulmonary disease Un known father Family history of lung cancer Unknown Unknown Malignant neoplasm Unknown Problems Active Problems Medical Problem Onset Date Status Chronic cervical radiculopathy Unknown A ctive Cvfdg-0-rxnayhghpxe deficiency Unknown A ctive COVID-19 Unknown Active [...] hours as needed for pain 120 30 Februa 2023October 03, 2023 12:43 pm Glipizide 10 mg tablet Discont inued 0 .ROUTE .COMPLEX 180 September 19, 2023 1:16pm [facility] 2024 7:12p m TAKE 1 TABLET BY [...] .ROUTE .COMPLEX 3 October 25, 2023 2:51pm [facility]2024 7:26p m INJECT 0.5 MG SUBCUTANEOUSL Y ONCE A WEEK Empaglifloz in (Jardiance) 25 mg tablet Discont inued 0 .ROUTE .COMPLEX October 25, 2023 2:51pm October 04, 2024 1:40a m TAKE 1 TABLET BY MOUTH EVERY DAY Omeprazole 20 mg capsule,del ayed release(DR/ EC) Active 0 .ROUTE .COMPLEX November 14, 2023 2:14pm TAKE 1 CAPSULE BY MOUTH EVERY DAY IN THE MORNING Unknown Aripiprazol e 10 mg tablet Active 0 .ROUTE .COMPLEX November 14, 2023 2:14pm TAKE 1 TABLET BY MOUTH EVERY DAY Unknown Albuterol Sulfate 90 mcg/actuati on HFA aerosol inhaler Active 2 PUFF INHALA TION Twice daily October 04, 2024 12:00a m Unknown Pravastatin 80 mg tablet Active 40 MG PO Every morning October 04, 2024 12:00a m Unknown Fluticasone -Umeclidin- Vilanter (Trelegy Ellipta) 100-62.5-25 mcg blister with device Active 1 INH INHALA TION Every morning October 04, 2024 12:00a m Unknown Aspirin 81 mg tablet,amari yed release (DR/EC) Discont inued 81 MG PO Daily October 04, 2024 12:00a m [facility] 2024 7:16p m Furosemide (Lasix) 40 mg tablet Discont inued 40 MG PO Daily October 04, 2024 12:00a m [facility] 2024 7:18p m Metoprolol Succinate 25 mg tablet extended release 24 hr Discont inued 25 MG PO Daily October 04, 2024 12:00a m [facility] 2024 10:57 am Ipratropium -Albuterol 18-103 mcg/actuati on aerosol Discont inued 1 SPRAY INHALA TION Four times daily October 04, 2024 12:00a m [facility] 2024 7:18p m Alpha-1 Proteinase Inhib.(Hum) 1,000 mg recon soln Active 1000 MG IV every week October 04, 2024 12:00a m Unknown Hydrocodone -Acetaminop hen 5-325 mg tablet Discont inued 1 TAB PO Four times daily October 04, 2024 12:00a m [facility] 2024 7:18p m Azithromyci n 250 mg tablet Discont inued 250 MG PO Daily 2 2 October 05, 2024 12:00a m [facility] 2024 7:17p m start 10/06/24 Cephalexin 500 mg capsule Discont inued 500 MG PO Twice daily 10 October 05, 2024 12:00a m [facility] 2024 7:17p m Prednisone 20 mg tablet [...] MG PO Twice daily 2024 12:00a m Unknown Venlafaxine 150 mg capsule,ext ended release 24hr Active 150 MG PO Twice daily 2024 12:00a m Unknown Ipratropium Blaine 21 mcg (0.03 %) spray,non-a erosol Active 2 SPRAY INTRAN DEE DEE Twice daily as needed for nasal congestion 2024 12:00a m Unknown Empaglifloz in (Jardiance) 25 mg tablet Active 25 MG PO Every morning 2024 12:00a m Unknown Glipizide 10 mg tablet Active 10 MG PO Twice daily 2024 12:00a m TAKE 1 TABLET BY MOUTH TWICE A DAY Unknown Hydroxyzine Hcl 25 mg tablet Active 25 MG PO Four times daily as needed for itching 2024 12:00a m Unknown Nystatin (Klayesta) 100,000 unit/gram powder Active 1 APPLIC TOPICA L Daily as needed for rash 2024 12:00a m Unknown Semaglutide (Ozempic) 0.25 mg or 0.5 mg (2 mg/3 mL) pen injector Active 0.5 MG SUBCUT every week 2024 12:00a m INJECT 0.5 MG SUBCUTANEOUSL Y ONCE A WEEK (Next dose due 04/16/25) Unknown Diltiazem Hcl (Cardizem Cd) 240 mg capsule,ext ended release 24hr Active 240 MG PO Daily Octobe r 2024 12:00a m Unknown Prednisone 10 mg tablet Active 10 MG PO As Directed Octobe r 2024 12:00a m see taper instructions [...] Discont inued 10 MG PO Daily 2023 1:00November 14, 2023 2:14p m Cpap (Continuous Positive Airway Pressure) unit Active 0 .Route 2023 1:00am Connect to 2L O2 during use. Cyclobenzap rine 5 mg tablet Discont inued 5 MG PO Twice daily 2023 1:00am [facility] 2024 7:17p m Diltiazem Hcl 240 mg capsule,ext ended release 24hr Discont inued 240 MG PO Daily 2023 1:00am [facility]2024 7:17p m Venlafaxine (Effexor Xr) 150 mg [...] inued 5 MG PO Daily 2023 1:00am Sept 2024 10:57 am Metoprolol Succinate 25 mg tablet extended release 24 hr Discont inued 25 MG PO Daily 2023 1:00am October 25, 2023 2:52p m Guaifenesin (Mucinex) 600 mg tablet extended release 12hr Active 600 MG PO Every 12 hours 2023 1:00am Unknown [place]-3 Fatty Acids 1,000 mg capsule Discont inued [...] 450 MG PO Twice daily 2023 1:00am 2024 7:11p m Mupirocin 2 % ointment Discont inued 1 APPLIC TOPICA L Twice daily 2023 1:00am October 04, 2024 1:48a m Hydrocodone -Acetaminop hen 5-325 mg tablet Discont inued 1 TAB PO Every 6 hours as needed for pain 120 October 03, 2023 October 04, 2024 1:40a [...] ng based on the specific clinical situation. Theophyl line Level April 23, 2025 1:53pm April 23, 2025 1:53pm 3.1 ug/mL Below low normal 10.0-20.0 Reference ranges [...] 156 mg/dL Above high normal 74-99 The [place] [employer] (ADA) provides guidance for cutoff [...] Standards of Medical Care in Diabetes 2016, [place] [employer] . Diabetes Care. 2016.39(Sup pl 1). Monocyte s # (Auto) March 11, 2025 3:24pm March 11, 2025 3:24pm 0.53 k/uL <0.87 Potassiu m Level March 11, 2025 3:24pm March 11, 2025 3:24pm 4.0 mmol/L 3.7-5.1 Neutroph ils # (Auto) March 11, 2025 3:24pm March 11, 2025 3:24pm 11.88 k/uL [...] April 15, 2025 3:17pm 9.7 10*3/uL 4.1-10.5 [facility] [id number] [address] [facility] [address] Uncorrec yamil WBC Count April 15, 2025 2:55pm April 15, 2025 3:17pm 9.7 10*3/uL 4.1-10.5 [facility] [id number] [address] [facility] [address] Red Blood Count April 15, 2025 2:55pm April 15, 2025 3:17pm 5.95 10*6/uL Above high normal 3.90-5.60 [facility] [id number] [address] [facility] [address] Hemoglob in April 15, 2025 2:55pm April 15, 2025 3:17pm 15.6 g/dL 13.0-17.0 [facility] [id number] [address] [facility] [address] Hematocr it April 15, 2025 2:55pm April 15, 2025 3:17pm 47.5 % 38.8-50.0 [facility] [id number] [address] [facility] [address] Mean Corpuscu lar Volume April 15, 2025 2:55pm April 15, 2025 3:17pm 79.8 fL Below low normal 83.5-101 [facility] [id number] [address] [facility] [address] Mean Corpuscu lar Hemoglob in April 15, 2025 2:55pm April 15, 2025 3:17pm 26.2 pg Below low normal 27.5-35.2 [facility] [id number] [address] [facility] [address] Mean Corpuscu lar Hemoglob in Concent April 15, 2025 2:55pm April 15, 2025 3:17pm 32.8 g/dL 32.5-35.6 [facility] [id number] [address] [facility] [address] Red Cell Distribu tion Width April 15, 2025 2:55pm April 15, 2025 3:17pm 18.1 % Above high normal 12.0-14.8 [facility] [id number] [address] [facility] [address] Platelet Count April 15, 2025 2:55pm April 15, 2025 3:17pm 214 10*3/uL 150-450 [facility] [id number] [address] [facility] [address] Mean Platelet Volume April 15, 2025 2:55pm April 15, 2025 3:17pm 7.4 fL 6.6-10.1 [facility] [id number] [address] [facility] [address] Monocyte Distribu tion Width April 15, 2025 2:55pm April 15, 2025 3:17pm 16.49 % 0.00-20.00 [facility] [id number] [address] [facility] [address] Neutroph ils (%) (Auto) April 15, 2025 2:55pm April 15, 2025 3:17pm 86.0 % . [facility] [id number] [address] [facility] [address] Lymphocy shanna (%) (Auto) April 15, 2025 2:55pm April 15, 2025 3:17pm 8.6 % . [facility] [id number] [address] [facility] [address] Monocyte s (%) (Auto) April 15, 2025 2:55pm April 15, 2025 3:17pm 4.4 % . [facility] [id number] [address] [facility] [address] Eosinoph ils (%) (Auto) April 15, 2025 2:55pm April 15, 2025 3:17pm 0.3 % . [facility] [id number] [address] [facility] [address] Basophil s (%) (Auto) April 15, 2025 2:55pm April 15, 2025 3:17pm 0.7 % . [facility] [id number] [address] [facility] [address] Nucleate d RBC Relative Count (auto) April 15, 2025 2:55pm April 15, 2025 3:17pm 0.1 /100{WBC} 0-0.5 [facility] [id number] [address] [place], [place] [address] Neutroph ils # (Auto) April 15, 2025 2:55pm April 15, 2025 3:17pm 8.3 10*3/uL Above high normal 1.8-7.7 [facility] [id number] [address] [place], [place] [address] Lymphocy shanna # (Auto) April 15, 2025 2:55pm April 15, 2025 3:17pm 0.8 10*3/uL Below low normal 1.00-4.8 [facility] [id number] [address] [place], [place] [address] Monocyte s # (Auto) April 15, 2025 2:55pm April 15, 2025 3:17pm 0.4 10*3/uL 0.0-0.8 [facility] [id number] [address] [place], [place] [address] Eosinoph ils # (Auto) April 15, 2025 2:55pm April 15, 2025 3:17pm 0.0 10*3/uL 0.0-0.45 [facility] [id number] [address] [place] [address] Basophil s # (Auto) April 15, 2025 2:55pm April 15, 2025 3:17pm 0.1 10*3/uL 0.0-0.2 [facility] [id number] [address] [place] [address] Prothrom bin Time April 15, 2025 2:55pm April 15, 2025 3:56pm 10.3 s 9.0-12.9 A hematocrit value greater than 55% may lead to inaccurate results in coagulation testing. Patients having hematocrit values >55% require a special collection tube for coagulation studies. Please contact the laboratory at for redraw instruction s. [facility] [id number] [address] [place], [place] [address] Prothrom b Time Internat ional Ratio April [...] with mechanical heart valves: 3 - 4.5 [facility] [id number] [address] [place] [address] Activate d Partial Thrombop last Time April 15, 2025 2:55pm April 15, 2025 3:56pm 31.0 s 25.1-36.5 A hematocrit value greater than 55% may lead to inaccurate results in coagulation testing. Patients having hematocrit values >55% require a special collection tube for coagulation studies. Please contact the laboratory at [phone] for redraw instruction s. [facility] [id number] [address] [id number] Glucose Level April 16, 2025 6:27am April 16, 2025 7:39am 193 mg/dL Above high normal 70-100 ADA recommended reference rangeRandom Glucose Reference Range is dependent on time and content of last meal. Glucose of more than 200 mg/dL in a nonstressed , ambulatory subject supports the diagnosis of Diabetes Mellitus. [facility] [id number] [address] [facility] [address] Blood Urea Nitrogen April 16, 2025 6:27am April 16, 2025 7:39am 24 mg/dL 7-25 [facility] [id number] [address] [place] [address] Creatini ne April 16, 2025 6:27am April 16, 2025 7:39am 1.09 mg/dL 0.70-1.30 [facility] [id number] [address] [place] [address] Estimate d GFR (CKD-EPI ) April 16, 2025 6:27am April 16, 2025 7:39am > 60.0 mL/Min [facility] [id number] [address] [facility] [address] Sodium Level April 16, 2025 6:27am April 16, 2025 7:39am 139 mmol/L 136-145 [facility] [id number] [address] [facility] [address] Potassiu m Level April 16, 2025 6:27am April 16, 2025 7:39am 4.4 mmol/L 3.5-5.1 [facility] [id number] [address] [id number] Chloride Level April 16, 2025 6:27am April 16, 2025 7:39am 100 mmol/L 98-107 [facility] [id number] [address] [id number] Carbon Dioxide Level April 16, 2025 6:27am April 16, 2025 7:39am 28.7 mmol/L 21.0-31.0 [facility] [id number] [address] [place], [place] [address] Anion Gap April 16, 2025 6:27am April 16, 2025 7:39am 14.7 mEq/L 6.0-15.0 [facility] [id number] [address] [place], [place] [address] Calcium Level April 16, 2025 6:27am April 16, 2025 7:39am 9.2 mg/dL 8.6-10.3 [facility] [id number] [address] [place] [address] Total Protein April 15, 2025 2:55pm April 15, 2025 3:49pm 7.1 g/dL 6.4-8.9 [facility] [id number] [address] [facility] [address] Albumin April 15, 2025 2:55pm April 15, 2025 3:49pm 4.3 g/dL 3.5-5.7 [facility] [id number] [address] [facility] [address] Globulin April 15, 2025 2:55pm April 15, 2025 3:49pm 2.8 g/dL [facility] [id number] [address] [place] [address] Albumin/ Globulin Ratio April 15, 2025 2:55pm April 15, 2025 3:49pm 1.5 [facility] [id number] [address] [place] [address] Total Bilirubi n April 15, 2025 2:55pm April 15, 2025 3:49pm 0.6 mg/dL 0.3-1.0 [facility] [id number] [address] [place], [place] [address] Aspartat e Amino Transf (AST/SGO T) April 15, 2025 2:55pm April 15, 2025 3:49pm 13 U/L 13-39 [facility] [id number] [address] [place], [place] [address] Alanine Aminotra nsferase (ALT/SGP T) April 15, 2025 2:55pm April 15, 2025 3:49pm 14 U/L 7-52 [facility] [id number] [address] [place], [place] [address] Alkaline Phosphat ase April 15, 2025 2:55pm April 15, 2025 3:49pm 79 U/L 34-104 [facility] [id number] [address] [place], [place] [address] Total Creatine Kinase April 15, 2025 2:55pm April 15, 2025 4:52pm 43 U/L 30-223 [facility] [id number] [address] [place], [place] [address] Troponin I High Sensitiv ity April 15, 2025 2:55pm April 15, 2025 3:56pm 7 ng/L 0-20 The Troponin units of report have been changed to meet the Chest Pain Accreditati on requirement , element EC5.M1l2. Troponin units are changed from pg/ml to ng/L. Also, the decimal is removed and results are in whole numbers. [facility] [id number] [address] [place], [place] [address] B-Type Natriure tic Peptide April 15, 2025 2:55pm April 15, 2025 3:54pm 17.0 pg/mL 5-100 [facility] [id number] [address] [place], [place] [address] Pharmacy Creatini ne Clearanc e (Chem April 16, 2025 6:27am April 16, 2025 7:39am 82.89 [facility] [id number] [address] [place], [place] [address] Coronavi bonifacio 2019 Clinical Comment 2 April 15, 2025 3:03pm April 15, 2025 4:23pm Not detected Not Detecte This is a duplicate RP2.1 COVID (PCR) result to be used for statistical tracking purpose only. [facility] [id number] [address] [facility] [address] Arterial Blood pH April 15, 2025 3:11pm [...] 15, 2025 3:03pm April 15, 2025 4:21pm [facility] [id number] [address] [place] [address] Diagnostic Imaging Reports Author Gelacio Wagner [facility] Authored April 12, 2025 8:19am Report Dictated Date/Time Dictated By Status Radiology Report April 12, 2025 8:19am Gelacio Wagner Jr DO completed [facility] [place] [address] MRI Report Signed Patient: Ramiro Hallman MR#: [id number] : 1960 Acct:[id number] Age/Sex: 64 / M ADM Date: 5 Loc: Room: Type: [facility] Attending Dr: Joo Trejo MD Copies to: Joo Trejo MD~ Ordering Provider: Joo Trejo MD Date of Service: 04/11/25 MR/MR prostate [...] is recommended. Impression dictated by: Gelacio Wagner Jr., D.O. 04/12/2025 8:25 AM Dictation Location: [place] [address] Transcribed By: [facility] 04/12/25824 Dictated By: Gelacio Wagner Jr, DO 04/12/25818 Signed By: <Electronically signed by Gelacio Wagner Jr, DO in OV> 04/12/25824 Author Jd Lan [facility] Authored April 15, 2025 3:49pm Report Dictated Date/Time Dictated By Status Radiology Report April 15, 2025 3:49pm Jd Lan DO completed [facility] [place] [address] XRay Report Signed Patient: Ramiro Hallman MR#: [id number] : 1960 Acct:[id number] Age/Sex: 64 / M ADM Date: 5 Loc: ER Room: Type: [facility] ER Attending Dr: Copies to: [...] Lan M.D. 04/15/2025 3:51 PM Dictation Location: [employer]20 Transcribed By: PWS 04/15/25 1551 Dictated By: Jd Lan DO [...] 11:59am Insurance Providers Guarantor Ramiro Hallman Address [address] [place] [phone] Contact Info. Home Phone: Payer Policy Id Subscriber's Name Subscriber Id Effective Date Expiration Date Neli ADAMS [id number] Ramiro Hallman [id number] Medicaid [id number] Ramiro Hallman [id number] Medicare [id number] Ramiro Hallman [id number] [facility] [id number] Ramiro Hallman [id number] [facility] Dual Compl [id number] Ramiro Hallman [id number] Insurance No Card Encounters Encounter Location(s) Arrival/Admit Date Discharge /Depart Date Provider(s) Non-patient / Non-visit -[facility] March 11, 2025 3:24pm Leslye Lester MD Non-patient / Non-visit -[facility] March 26, 2025 1:57pm Leslye Lester MD Departed Clinical -MRI [facility] April 11, 2025 9:16pm April 11, 2025 9:17pm Joo Trejo MD Discharged Inpatient -[facility] April 15, 2025 5:46pm April 17, 2025 12:12pm Gael Marrero DO Non-patient / Non-visit -[facility] April 23, 2025 1:53pm Leslye Lester MD Departed Referred -[facility] April 30, 2025 9:06am April 30, 2025 9:07am Joo Trejo MD Recent Diagnosis Onset Date Admit Date Acute [...] scheduled test information is unavailable Pending Tests Test Name Ordered Date Scheduled Date Miscellaneous Pathology Test April 30, 2025 9:06am Future Visits Future appointment information is unavailable Referrals to Other Providers Reason for Referral Referral Start Date Provider Provider Contact Information Provider Address You have been scheduled for a follow up appointment for the following date and time, please call to reschedule if needed. BIANKA Turner Work Phone: [address] [facility] [address] Future Procedures Procedure Name Ordered Date Scheduled Date Admit Status Order April 15, 2025 5:46pm S eptember 2024 5:46pm Discharge Order April 17, 2025 12:07pm Octobe r 2024 12:07pm Pathology Request for Lab Erin April 30, 2025 2:32pm April 30, 2025 9:06am Future Medications Future medication information is unavailable Patient Instructions Instruction Admit Date Know your Meds April 15, 2025 5:46pm Goals Acute Goals Author Authored Date Exhibit optimal tissue perfu mónica * Exhibits adequate oxygenation and ventilation * Exhibits adequate cardiac output * Regains stable cardiac rhythm * Maintains optimal activity level * Maintains balanced intake and output [facility] April 17, 2025 2:31pm Maintain/increase activity levels * Understands factors that may lead to activity intolerance * Helps perform self care activities * Maintains maximum range of motion * Increase/regain muscle mass and strength * Maintains VS WNL during activity * Maintain intact skin integrity Updated: 08/30/2022 [facility] April 17, 2025 2:31pm Preferences Type Detail Treatment Intervention Code Status: Full Code
--- OUTSIDE RECORDS SUMMARY | 2025-05-01 13:56 | XMS_ITS | Clinical Summary ---
Author Organization [facility] Address [address] [place] [address] Care Team Providers Care Calender Wind Up Tender Name Role Phone Janet Benavides MD Primary Care Provider [phone] Douglas Pacheco DO Unavailable [phone] Allergies Active Allergy Reactions Criticality Noted [...] mg by mouth twice daily. 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 Essential hypertension 02/14/2019 Chronic obstructive pulmonary disease 01/17/2019 Encounters Date Type Department Care Team Description 04/24/2025 Refill Pulmonary Medicine [address] [place] [address] Sara Lester MD Med Change Request 04/23/2025 Travel 04/21/2025 Telephone Pulmonary Medicine [address] [place] [address] Sara Lester MD Patient Update (Blood test is pending milo levels ); Orders 03/26/2025 Telephone Pulmonary Medicine [address] [place] [address] Sara Lester MD Patient Update 03/24/2025 Telephone Pulmonary Medicine [address] [place] [address] Sara Lester MD 03/24/2025 Results Follow-Up Pulmonary Medicine [address] [place] [address] Sara Lester MD 03/20/2025 Telephone Pulmonary Medicine [address] [place] [address] Sara Lester MD 03/19/2025 Telephone Pulmonary Medicine [address] [place] [address] Sara Lester MD 03/13/2025 Telephone Pulmonary Medicine [address] [place] [address] Sara Lester MD 03/12/2025 Refill Pulmonary Medicine [address] [place] [address] Sara Lester MD 03/11/2025 2:30 PM EDT Procedure Pulmonary Medicine [address] [place] [address] Spirometry 03/11/2025 1:45 PM EDT Office Visit Pulmonary Medicine [address] [place] [address] Sara Lester MD Chronic obstructive pulmonary disease, unspecified COPD type (HCC) (Primary Dx); Chronic respiratory failure with hypoxia (HCC); Jyzcb-8-phvfkhzmgsf deficiency (HCC); Chronic rhinitis; Obstructive sleep apnea (adult) (pediatric); Former smoker 03/11/2025 12:45 PM EDT Procedure Pulmonary Medicine [address] [place] [address] Spirometry 03/11/2025 12:15 PM EDT Procedure Pulmonary Medicine [address] [place] [address] Spirometry 03/11/2025 Travel 03/06/2025 Orders Only Respiratory [place] [address] [place] [address] Sara Lester MD Chronic obstructive pulmonary disease, [...] is lower risk 4 03/11/2025 Data from: https://www.neighborhoodatlas.medicine.[facility].edu/. 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 continuous churn (current) use of systemic steroids Chronic fatigue SOB (shortness of breath) Centrilobular emphysema (HCC) *HEP C AB Routine 03/24/2021 3:44 PM EDT Shortness of breath Lung transplant candidate Bone disorder shelter (current) use of systemic steroids Chronic fatigue SOB (shortness of breath) Centrilobular emphysema (HCC) LIPID PANEL, FASTING Routine 03/24/2021 3:44 PM EDT Shortness of breath Lung transplant candidate Bone disorder shelter (current) use of systemic steroids Chronic fatigue SOB (shortness of breath) Centrilobular emphysema (HCC) from Last 3 Months or Most Recently Relevant to Health Maintenance Results * (ABNORMAL) THEOPHYLLINE/AMINOPHYLLINE (04/23/2025 1:53 PM EDT) Only the most recent of3 resultswithin the time period is included. [facility] Theophylline 3.1(L) 10.0 - 20.0 ug/mL 04/24/2025 3:43 AM EDT [facility] Comment:Reference ranges and high/low indicator flags are provided as general guidelines only. The treating physician must determine appropriate target levels/dosing based on the specific clinical situation. Blood BLOOD SPECIMEN / Unknown Venipuncture / Unknown 04/23/2025 1:53 PM EDT 04/23/2025 1:53 PM EDT us Sara Lester MD LABORATORY Final Result [facility] [address] [facility] [place] [address], * (ABNORMAL) COMPREHENSIVE METABOLIC PANEL (03/11/2025 3:24 PM EDT) [facility] Protein, Total 7.6 6.3 - 8.0 g/dL 03/11/2025 4:31 PM [facility] Albumin 4.7 3.9 - 4.9 g/dL 03/11/2025 4:31 PM [facility] Calcium, Total 9.9 8.5 - 10.2 mg/dL 03/11/2025 4:31 PM [facility] Bilirubin, Total 0.4 0.2 - 1.3 mg/dL 03/11/2025 4:31 PM [facility] Alkaline Phosphatase 115(H) 38 - 113 U/L 03/11/2025 4:31 PM [facility] AST 10(L) 14 - 40 U/L 03/11/2025 4:31 PM [facility] ALT 12 10 - 54 U/L 03/11/2025 4:31 PM [facility] Glucose 156(H) 74 - 99 mg/dL 03/11/2025 4:31 PM [facility] Comment: The [place] Diabetes Association (ADA) provides guidance for cutoff [...] Standards of Medical Care in Diabetes 2016, [place] Diabetes Association. Diabetes Care. 2016.39(Suppl 1). BUN 21 9 - 24 mg/dL 03/11/2025 4:31 PM [facility] Creatinine 0.85 0.73 - 1.22 mg/dL 03/11/2025 4:31 PM [facility] Sodium 140 136 - 144 mmol/L 03/11/2025 4:31 PM [facility] Potassium 4.0 3.7 - 5.1 mmol/L 03/11/2025 4:31 PM [facility] Chloride 100 98 - 107 mmol/L 03/11/2025 4:31 PM [facility] CO2 22 22 - 30 mmol/L 03/11/2025 4:31 PM [facility] Anion Gap 18(H) 8 - 15 mmol/L 03/11/2025 4:31 PM [facility] Estimated Glomerular Filtration Rate 96 >=60 mL/min/1. 73m 03/11/2025 4:31 PM [facility] Comment:Estimated Glomerular Filtration Rate (eGFR) [...] EDT Sara Lester MD LABORATORY Final Result [facility] [address] [facility] [place] [address], [place] * (ABNORMAL) COMPLETE BLOOD COUNT AND DIFFERENTIAL (03/11/2025 3:24 PM EDT) WBC 13.55(H) 3.70 - 11.00 k/uL 03/11/2025 3:43 PM EDT [facility] RBC 6.39(H) 4.20 - 6.00 m/uL 03/11/2025 3:43 PM EDT [facility] Hemoglobin 16.6 13.0 - 17.0 g/dL 03/11/2025 3:43 PM EDT [facility] Hematocrit 52.5(H) 39.0 - 51.0 % 03/11/2025 3:43 PM EDT [facility] MCV 82.2 80.0 - 100.0 fL 03/11/2025 3:43 PM EDT [facility] MCH 26.0 26.0 - 34.0 pg 03/11/2025 3:43 PM EDT [facility] MCHC 31.6 30.5 - 36.0 g/dL 03/11/2025 3:43 PM EDT [facility] RDW-CV 17.0(H) 11.5 - 15.0 % 03/11/2025 3:43 PM EDT [facility] Platelet Count 359 150 - 400 k/uL 03/11/2025 3:43 PM EDT [facility] MPV 9.2 9.0 - 12.7 fL 03/11/2025 3:43 PM EDT [facility] Neutrophils % 87.7 % 03/11/2025 3:43 PM EDT [facility] Abs Neut 11.88(H) 1.45 - 7.50 k/uL 03/11/2025 3:43 PM EDT [facility] Lymphocytes % 7.5 % 03/11/2025 3:43 PM EDT [facility] Abs Lymph 1.01 1.00 - 4.00 k/uL 03/11/2025 3:43 PM EDT [facility] Monocytes % 3.9 % 03/11/2025 3:43 PM EDT [facility] Abs Jones 0.53 <0.87 k/uL 03/11/2025 3:43 PM EDT [facility] Eosinophils % 0.1 % 03/11/2025 3:43 PM EDT [facility] Abs Eosin <0.03 <0.46 k/uL 03/11/2025 3:43 PM EDT [facility] Basophils % 0.4 % 03/11/2025 3:43 PM EDT [facility] Abs Baso 0.06 <0.11 k/uL 03/11/2025 3:43 PM EDT [facility] Immature Granulocytes % 0.4 % 03/11/2025 3:43 PM EDT [facility] Abs Immature Gran 0.06 <0.10 k/uL 03/11/2025 3:43 PM EDT [facility] NRBC 0.1 /100 WBC 03/11/2025 3:43 PM EDT [facility] Absolute nRBC 0.02(H) <0.01 k/uL 03/11/2025 3:43 PM EDT [facility] Diff Type Auto 03/11/2025 3:43 PM EDT [facility] Blood BLOOD SPECIMEN / Unknown Venipuncture / Unknown 03/11/2025 3:24 PM EDT 03/11/2025 3:24 PM EDT us Sara Lester MD LABORATORY Final Result [facility] [address] [place] [address], * [id number] (03/11/2025 3:24 PM EDT) Alpha 1 Antitrypsin 112 90 - 200 mg/dL 03/12/2025 10:09 AM EDT [facility] Blood BLOOD SPECIMEN / Unknown Venipuncture / Unknown 03/11/2025 3:24 PM EDT 03/11/2025 3:24 PM EDT us Sara Lester MD LABORATORY Final Result [facility] [address] [facility] [address] [place] [address], * LUNG VOLUMES (03/11/2025 2:24 PM EDT) [...] FUNCTION LAB - 03/12/2025 1:37 PM EDT [facility] [address] [facility] [place] [address] Test Date: 2025-03-11 Pat Name: RICARDO HALLMAN Department: Room: Gender: Male Domain Architect: : 1960 Requested By: Order Number: [id number] Reading MD: Tory Mukherjee MD Interpretive Statements 2 acceptable lung volumes reported. Patient has dyspnea, COPD and was tachypneic. 2 techs attempted. Best test reported despite difficult testing session. // IMPRESSION: Lung volumes (FRC and/or RV) are elevated indicating hyperinflation and air trapping. Electronically Signed On 03-12-2025 13:37:37 EDT by Tory Mukherjee MD ID: [id number] Name: RICARDO HALLMAN Race: White Ht: 68.90 [...] PROCEDURES Final Resul t [facility] [address] [facility] [place], [place] [id number] * LUNG DIFFUSION CAPACITY (DLCO) (03/11/2025 12:26 [...] ULN (L/S) 1.83 L/S [facility] URZ81-35% PRE (L/S) 0.30 L/S [facility] WHR70-17% POST (L/S) 0.32 L/S [facility] LEO43-60% PREDICTED (L/S) 2.61 L/S [facility] YFC81-04% LLN (L/S) 1.21 L/S [facility] [...] FUNCTION LAB - 03/12/2025 1:32 PM EDT [facility] [address] [facility] [place] [address] Test Date: 2025-03-11 Pat Name: RICARDO HALLMAN Department: Room: Gender: Male Domain Architect: : 1960 Requested By: Order Number: [id number] Reading MD: Tory Mukherjee MD Interpretive Statements [...] 13:32:49 EDT by Tory Mukherjee MD ID: [id number] Name: RICARDO HALLMAN Race: White Ht: 68.90 [...] 90-100 0.07 0 FIVC 3.40 3.54 4 OQM58-78 0.30 1.21 2.61 4.56 11 -3.39 0.32 [...] Final Resul t [facility] [address] [place] [place] [address] * SPIROMETRY WITH DILATOR IF OBSTRUCTED (03/11/2025 12:26 PM EDT) 03/11/2025 12:2 6 PM EDT Narrative [facility] - 03/12/2025 1:32 PM EDT [facility] [address] [facility] [place] [address] Test Date: 2025-03-11 Pat Name: RICARDO HALLMAN Department: Room: Gender: Male Domain Architect: : 1960 Requested By: Order Number: [id number] Reading MD: Tory Mukherjee MD Interpretive Statements [...] 13:32:49 EDT by Tory Mukherjee MD ID: [id number] Name: RICARDO HALLMAN Race: White Ht: 68.90 [...] 90-100 0.07 0 FIVC 3.40 3.54 4 XZH32-89 0.30 1.21 2.61 4.56 11 -3.39 0.32 [...] PROCEDURES Final Resul t Performing Organization Address City/[facility]/ZIP Co de Phone Number [facility] [address] [place] [address] * HIV 1 2 COMBO(AG/AB),WITH REFLEX TO [...] 2-3 weeks after this draw. HIV Information: [place] Rev. Code 3701.243(E): This information has been [...] DO LABORATORY Final Result Performing Organization Address [facility]/ZIP Co de Phone Number [facility] [address] [place] [address] [facility] [address] [place] [address] * (ABNORMAL) LIPID PANEL BASIC (03/24/2021 3:44 PM EDT) Cholesterol, Total 220(H) <200 mg/dL 03/24/2021 6:37 PM [facility] Comment: <200 mg/dL, Desirable 200-239 mg/dL, Borderline high >239 mg/dL, High Triglyceride 244(H) <150 mg/dL 03/24/2021 6:37 PM [facility] Comment: <150 mg/dL, Normal 150-199 mg/dL, Borderline high 200-499 mg/dL, High >499 mg/dL, Very high HDL Cholesterol 99 >39 mg/dL 6:37 PM [facility] Comment: 40-59 mg/dL, Acceptable >59 mg/dL, High: Negative risk factor for coronary heart disease <40 mg/dL, Low: Positive risk factor for coronary heart disease LDL Cholesterol, Calculated 72 <100 mg/dL 03/24/2021 6:37 PM [facility] Comment: <100 mg/dL, Optimal 100-129 mg/dL, Near optimal/above optimal 130-159 mg/dL, Borderline high 160-189 mg/dL, High >189 mg/dL, Very high Secondary prevention optimal LDL Cholesterol levels are recommended to be < 70 mg/dL Non HDL Cholesterol 121 <130 mg/dL 03/24/2021 6:37 PM [facility] Comment: <130 mg/dL, Optimal 130-159 mg/dL, Near optimal/above optimal 160-189 mg/dL, Borderline high 190-219 mg/dL, High >219 mg/dL, Very high Secondary prevention optimal non HDL Cholesterol levels are recommended to be < 100 mg/dL Fasting Time Unknown hrs 03/24/2021 6:37 PM [facility] VLDL Cholesterol 49(H) <30 mg/dL 03/24/20 6:37 PM [facility] TC:HDL Ratio 2.22 <5.10 03/24/2021 6:37 PM [facility] LDL:HDL Ratio 0.73 <2.54 03/24/2021 6:37 PM [facility] Comment: Reference: 1. National Cholesterol Education Program ATP III Guideline At-A-Glance Quick Desk Reference: National Heart, Lung, and Blood [place]. National Institutes of Health. 2001: NIH Publication No. 01-3305. 2. An International Atherosclerosis Society position paper: global recommendations for the management of dyslipidemia: executive summary, Atherosclerosis. 2014: 232(2):410-413. Blood BLOOD SPECIMEN / Unknown 03/24/2021 3:44 PM EDT 03/24/2021 3:46 PM EDT [facility] Final Result Performing Organization Address [facility] Co de Phone Number [facility] [address] [email or web address] [address] [facility] [address] [place] [address] * (ABNORMAL) HEP REMOTE PANEL BL (03/24/2021 [...] [facility] LABORATORY Final Result Performing Organization Address City/[facility]/ZIP Co de Phone Number [facility] [address] [place] [address] [facility] [address] [email or web address] [address] from Last 3 Months or Most Recently Relevant to Health Maintenance Insurance [employer]ARE ADVANTAGE HMO [employer] MED[employer] ADVANTAGE O Care Teams Calender Wind Up Tender Relationship Specialty Start Date End Date Janet Benavides MD [address] [place] [address] PCP - General Family Medicine 03/12/20 Douglas Pacheco DO [address] [place] [address] Referring Pulmonary and Critical Care Medicine 03/12/20
--- OUTSIDE RECORDS SUMMARY | 2025-05-01 13:56 | XMS_ITS | Encounter Summary ---
Author Organization [facility] Address [address] [place] [address] Care Team Providers Care Child Daycare Worker Name Role Phone Janet Benavides MD Primary Care Provider [phone] Douglas Pacheco DO Unavailable [phone] Source Comments In the event this information is protected by the Federal Confidentiality of Alcohol and Drug AbusePatient Records regulations: The Federal rules restrict any use of the information to criminally investigate or prosecute any alcohol or drug abuse patient.[facility] Reason for Visit * Reason Comments chart prep/review for OPD 11/04 Encounter Details Date Type Department Care Team (Late st Contact Info) Description 11/03/2021 Abstract Pulmonary Medicine [address] [address] Molly Radford, SEX WORKER OR [employer]ORT.FURNACE MASON [address] [place], [place] [phone] chart prep/review for OPD 11/04 Social History Tobacco Use Types Packs/Day Years Used Date Smoking Tobacco: Never Assessed Area Deprivation Index Answer Date Chirag rded National Score (1-100), lower number is lower ri sk Not on file 03/18/2021 State Score (1-10), lower number is lower risk N ot on file 03/18/2021 Data from: https://www.neighborhoodatlas.medicine.[facility]/. Last address used for calculation Not on [...] 05/10/2025 12:30 PM EDT Procedure Pulmonary Medicine [address] [place] [address] Chronic obstructive pulmonary disease, unspecified COPD type (HCC) [J44.9] 05/10/2025 1:00 PM EDT Office Visit Pulmonary Medicine [address] [place] [address] [place] [address] [place] [address] Chronic obstructive pulmonary disease, unspecified COPD type (HCC) [J44.9] documented as of this encounter Visit Diagnoses Not on filedocumented in this encounter Care Teams Child Daycare Worker Relationship Specialty Start Date End Date Janet Benavides MD [address] [place] [phone] PCP - General Family Medicine 03/12/20 Douglas Pacheco DO [address] [place] [address] Referring Pulmonary and Critical Care Medicine 03/12/20 documented as of this encounter
--- OUTSIDE RECORDS SUMMARY | 2025-05-01 13:56 | XMS_ITS | Encounter Summary ---
Author Organization [facility] Address [address] [place] [address] Care Team Providers Care Damper Fitter Name Role Phone Janet Benavides MD Primary Care Provider [phone] Douglas Pacheco DO Unavailable [phone] Source Comments In the event this information is protected by the Federal Confidentiality of Alcohol and Drug AbusePatient Records regulations: The Federal rules restrict any use of the information to criminally investigate or prosecute any alcohol or drug abuse patient.[facility] Encounter Details Date Type Department Care Team (Late st Contact Info) Description 12/23/2021 Patient Msg Transplant Center [address] [place] [phone] Provider, [facility] Transplant Appointments Social History Tobacco Use Types Packs/Day Years Used Date Smoking Tobacco: Never Assessed Area Deprivation Index Answer Date Chirag rded National Score (1-100), lower number is lower ri sk Not on file 03/18/2021 State Score (1-10), lower number is lower risk N ot on file 03/18/2021 Data from: https://www.neighborhoodatlas.medicine.[facility].edu/. Last address used for calculation Not [...] 05/10/2025 12:30 PM EDT Procedure Pulmonary Medicine [address] [place] [address] Chronic obstructive pulmonary disease, unspecified COPD type (HCC) [J44.9] 05/10/2025 1:00 PM EDT Office Visit Pulmonary Medicine [address] [place] [address] [place] [address] [place] [address] Chronic obstructive pulmonary disease, unspecified COPD type (HCC) [J44.9] documented as of this encounter Visit Diagnoses Not on filedocumented in this encounter Care Teams Damper Fitter Relationship Specialty Start Date End Date Janet Benavides MD [address] [place] [phone] PCP - General Family Medicine 03/12/20 Douglas Pacheco DO [address] [place] [address] Referring Pulmonary and Critical Care Medicine 03/12/20 documented as of this encounter
--- OUTSIDE RECORDS SUMMARY | 2025-05-01 13:56 | XMS_ITS | Encounter Summary ---
Author Organization [facility] Address [address] [place] [address] Care Team Providers Care Water Truck Driver Name Role Phone Janet Benavides MD Primary Care Provider [phone] Douglas Pacheco DO Unavailable [phone] Source Comments In the event this information is protected by the Federal Confidentiality of Alcohol and Drug AbusePatient Records regulations: The Federal rules restrict any use of the information to criminally investigate or prosecute any alcohol or drug abuse patient.[facility] Encounter Details Date Type Department Care Team (Late st Contact Info) Description 11/26/2021 Patient Msg Transplant Center [address] [phone] Provider, [facility] Voice Mail Social History Tobacco Use Types Packs/Day Years Used Date Smoking Tobacco: Never Assessed Area Deprivation Index Answer Date Chirag rded National Score (1-100), lower number is lower ri sk Not on file 03/18/2021 State Score (1-10), lower number is lower risk N ot on file 03/18/2021 Data from: https://www.neighborhoodatlas.medicine.[facility].edu/. Last address used for calculation Not on [...] 05/10/2025 12:30 PM EDT Procedure Pulmonary Medicine [address] [place] [address] Chronic obstructive pulmonary disease, unspecified COPD type (HCC) [J44.9] 05/10/2025 1:00 PM EDT Office Visit Pulmonary Medicine [address] [place] [address] [place] [address] [place] [address] Chronic obstructive pulmonary disease, unspecified COPD type (HCC) [J44.9] documented as of this encounter Visit Diagnoses Not on filedocumented in this encounter Care Teams Water Truck Driver Relationship Specialty Start Date End Date Janet Benavides MD [address] [place] [phone] PCP - General Family Medicine 03/12/20 Douglas Pacheco DO [address] [place] [address] Referring Pulmonary and Critical Care Medicine 03/12/20 documented as of this encounter
--- OUTSIDE RECORDS SUMMARY | 2025-05-01 13:56 | XMS_ITS | Encounter Summary ---
Author Organization [facility] Address [address] [place] [address] Care Team Providers Care Print Project Manager Name Role Phone Janet Benavides MD Primary Care Provider [phone] Douglas Pacheco DO Unavailable Source Comments In the event this information is protected by the Federal Confidentiality of Alcohol and Drug AbusePatient Records regulations: The Federal rules restrict any use of the information to criminally investigate or prosecute any alcohol or drug abuse patient.[facility] Reason for Visit * Reason Comments New Eval Chart Prep Encounter Details Date Type Department Care Team (Late st Contact Info) Description 03/18/2021 Abstract Pulmonary Medicine [address] [place] [address] Idalmis Bai RN New Eval Chart Prep Social History Tobacco Use Types Packs/Day Years Used Date Smoking Tobacco: Never Assessed Area Deprivation Index Answer Date Chirag rded National Score (1-100), lower number is lower ri sk Not on file 03/18/2021 State Score (1-10), lower number is lower risk N ot on file 03/18/2021 Data from: https://www.neighborhoodatlas.medicine.[facility].edu/. Last address used for calculation [...] 05/10/2025 12:30 PM EDT Procedure Pulmonary Medicine [address] [place] [address] Chronic obstructive pulmonary disease, unspecified COPD type (HCC) [J44.9] 05/10/2025 1:00 PM EDT Office Visit Pulmonary Medicine [address] [place] [address] [place] [address] [place] [address] Chronic obstructive pulmonary disease, unspecified COPD type (HCC) [J44.9] documented as of this encounter Visit Diagnoses Not on filedocumented in this encounter Care Teams Print Project Manager Relationship Specialty Start Date End Date Janet Benavides MD [address] [place] [id number] PCP - General Family Medicine 03/12/20 Douglas Pacheco DO [address] [place] [address] Referring Pulmonary and Critical Care Medicine 03/12/20 documented as of this encounter
--- OUTSIDE RECORDS SUMMARY | 2025-05-01 13:57 | XMS_ITS | Clinical Summary ---
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 Chronic respiratory failure with hypoxia 021 Left ventricular systolic dysfunction 12/23/2020 Diabetes mellitus 02/14/2019 Essential hypertension 02/14/2019 Coronary atherosclerosis 01/17/2019 Chest pain 12/04/2018 Dyspnea 12/04/2018 Encounters Date Type Department Care Team Description 03/19/2025 Orders Only [place] [address] [place] [address] Provider, MD [place] 02/11/2025 Telephone [facility] [address] [place] [address] MadelynRacheal MA from Last 3 [...] Months Insurance [employer] Care Teams Gusset Ripper Relationship Specialty Start Date End Date aZyra Peterson FNP-C [address] [place] [address] PCP - General Nurse Practitioner 01/24/25
--- OUTSIDE RECORDS SUMMARY | 2025-05-01 13:57 | XMS_ITS | Clinical Summary ---
Author Organization [facility] Address [address] [place] [address] Phone Care Team Providers Care Patternmaker Plastics Name Role Phone Unavailable Primary Care Provider [...]
--- OUTSIDE RECORDS SUMMARY | 2025-05-01 13:57 | XMS_ITS | Encounter Summary ---
Author Organization [facility] Address [address] [place] [address] Care Team Providers Care Pole Framer Name Role Phone Janet Benavides MD Primary Care Provider [phone] Douglas Pacheco DO Unavailable [phone] Source Comments In the event this information is protected by the Federal Confidentiality of Alcohol and Drug AbusePatient Records regulations: The Federal rules restrict any use of the information to criminally investigate or prosecute any alcohol or drug abuse patient.[facility] Encounter Details Date Type Department Care Team (Late st Contact Info) Description 11/04/2024 [place] [address] Provider, [facility] Medicare Coverage of Physical Exams Social History Tobacco Use Types Packs/Day Years Used Date Smoking Tobacco: Never Assessed Area Deprivation Index Answer Date Chirag rded National Score (1-100), lower number is lower ri sk Not on file 03/18/2021 State Score (1-10), lower number is lower risk N ot on file 03/18/2021 Data from: https://www.neighborhoodatlas.medicine.[facility].edu/. Last address used for calculation Not [...] 05/10/2025 12:30 PM EDT Procedure Pulmonary Medicine [address] [place] [address] Chronic obstructive pulmonary disease, unspecified COPD type (HCC) [J44.9] 05/10/2025 1:00 PM EDT Office Visit Pulmonary Medicine [address] [place] [address] [place] [address] [place] [address] Chronic obstructive pulmonary disease, unspecified COPD type (HCC) [J44.9] documented as of this encounter Visit Diagnoses Not on filedocumented in this encounter Care Teams Pole Framer Relationship Specialty Start Date End Date Janet Benavides MD [address] [place] [phone] PCP - General Family Medicine 03/12/20 Douglas Pacheco DO [address] [place] [address] Referring Pulmonary and Critical Care Medicine 03/12/20 documented as of this encounter
--- OUTSIDE RECORDS SUMMARY | 2025-05-01 13:57 | XMS_ITS | Encounter Summary ---
Author Organization [facility] Address [address] [place] [address] Care Team Providers Care Sheet Mill Supervisor Name Role Phone Janet Benavides MD Primary Care Provider [phone] Douglas Pacheco DO Unavailable [phone] Source Comments In the event this information is protected by the Federal Confidentiality of Alcohol and Drug AbusePatient Records regulations: The Federal rules restrict any use of the information to criminally investigate or prosecute any alcohol or drug abuse patient.[facility] Reason for Visit * Reason Comments Patient Update Blood test is pendin g milo levels Orders Encounter Details Date Type Department Care Team (Late st Contact Info) Description 04/21/2025 Telephone Pulmonary Medicine [address] [place], [place] [id number] [place] [address] [place], [place] [id number] Patient Update (Blood test is pending milo levels ); Orders Social History Tobacco Use Types Packs/Day Years Used Date Smoking Tobacco: Former Cigarettes Comments:Almost 80 pack year smoker Area Deprivation Index Answer Date Chirag rded National Score (1-100), lower number is lower ri sk 61 03/11/2025 State Score (1-10), lower number is lower risk 4 03/11/2025 Data from: https://www.neighborhoodatlas.[facility]/. Last address used for calculation [address] [...] 05/10/2025 12:30 PM EDT Procedure Pulmonary Medicine [address] [place] [address] Chronic obstructive pulmonary disease, unspecified COPD type (HCC) [J44.9] 05/10/2025 1:00 PM EDT Office Visit Pulmonary Medicine [address] [place] [address] [place] [address] [place] [address] Chronic obstructive pulmonary disease, unspecified COPD type (HCC) [J44.9] documented as of this encounter Visit Diagnoses Not on filedocumented in this encounter Care Teams Sheet Mill Supervisor Relationship Specialty Start Date End Date Janet Benavides MD [address] [place] [address] PCP - General Family Medicine 03/12/20 Douglas Pacheco DO [address] [place] [address] Referring Pulmonary and Critical Care Medicine 03/12/20 documented as of this encounter
--- OUTSIDE RECORDS SUMMARY | 2025-05-01 13:57 | XMS_ITS | Encounter Summary ---
Author Organization [facility] Address [address] [place] [address] Care Team Providers Care Membership Solicitor Name Role Phone Janet Benavides MD Primary Care Provider Douglas Pacheco DO Unavailable [phone] Source Comments In the event this information is protected by the Federal Confidentiality of Alcohol and Drug AbusePatient Records regulations: The Federal rules restrict any use of the information to criminally investigate or prosecute any alcohol or drug abuse patient.[facility] Reason for Visit * Reason Comments Med Change Request Encounter Details Date Type Department Care Team (Late st Contact Info) Description 04/24/2025 Refill Pulmonary Medicine [address] [place] [address] [place] [address] [place] [address] Med Change Request Social History Tobacco Use [...] 04/25/2025 3:07 PM EDT Advised pt via Qui[employer] message per Dr [place] directions * Addendum [...] 05/10/2025 12:30 PM EDT Procedure Pulmonary Medicine [address] [place] [address] Chronic obstructive pulmonary disease, unspecified COPD type (HCC) [J44.9] 05/10/2025 1:00 PM EDT Office Visit Pulmonary Medicine [address] [place] [address] [place] [address] [place] [address] Chronic obstructive pulmonary disease, unspecified COPD type (HCC) [J44.9] documented as of this encounter Visit Diagnoses Not on filedocumented in this encounter Care Teams Membership Solicitor Relationship Specialty Start Date End Date Janet Benavides MD [address] [place] [address] PCP - General Family Medicine 03/12/20 Douglas Pacheco DO [address] [place] [address] Referring Pulmonary and Critical Care Medicine 03/12/20 documented as of this encounter
--- OUTSIDE RECORDS SUMMARY | 2025-05-01 13:57 | XMS_ITS | Patient Health Record ---
Author Organization [facility] [place] Address [address] [place] [address] Care Team Providers Care Vice President Diversity Name Role Phone ShikhaDali Powers Primary Care Provider Ludivina vailable Douglas Pacheco Unavailable [phone] Allergies Allergen (clinical drug ingredient) Drug/Non Drug Allergy documented on EMR Reaction Allergy Type Onset Date Status metformin Metformin diarrhea Drug Allergy Active Results Component Value Reference Range Notes ECG 12 lead Reviewed date:12/19/2024 07:19:18 AM Interpretation: Performing Lab: Notes/Report: Source Facility: [place] [address] Electrocardiograph Report Signed Patient: RICARDO HALLMAN MR#: [id number] : 1960 Acct:[id number] Age/Sex: 64 / M ADM Date: 12/18/24 Loc: CARD Attending Dr: Douglas Pacheco D.O. Ordering Physician: Douglas Pacheco D.O. Date of Service: 12/18/24 Procedure(s): ECG 12 lead Accession Number(s): [id number] cc: [facility] Test Date: 2024-12-18 Pat Name: RICARDO HALLMAN Department: Room: - Gender: Male High Pressure Kettle Operator: : 1960 Requested By: Douglas Pacheco Order Number: [id number] Reading MD: JAGRUTI DOMINIQUE M.D. Measurements Intervals [place] Rate: 100 P: 77 KS: 161 QRS: 50 QRSD: 93 T: 91 [...] Signed By: 12/18/24180912/18/24 181 DD/ 1437 TD/TT: Receiver Setter: ECG 12 lead Reviewed date:12/19/2024 07:18:59 AM Interpretation: Performing Lab: Notes/Report: Source Facility: [place] [address] Electrocardiograph Report Signed Patient: RICARDO HALLMAN MR#: [id number] : 1960 Acct:[id number] Age/Sex: 64 / M ADM Date: 12/18/24 Loc: CARD Attending Dr: Douglas Pacheco D.O. Ordering Physician: Douglas Pacheco D.O. Date of Service: 12/18/24 Procedure(s): ECG 12 lead Accession Number(s): [id number] cc: [facility] Test Date: 2024-12-18 Pat Name: RICARDO HALLMAN Department: Room: - Gender: Male High Pressure Kettle Operator: : 1960 Requested By: Douglas Pacheco Order Number: [id number] Reading MD: JAGRUTI DOMINIQUE M.D. Measurements Intervals [place] Rate: 96 P: 73 KS: 150 QRS: 54 QRSD: 98 T: 87 QT: 365 QTc: 463 Interpretive Statements SINUS RHYTHM WITH OCCASIONAL SUPRAVENTRICULAR PREMATURE COMPLEXES [place] ECG Compared to ECG 12/18/2024 14:37:29 Sinus tachycardia no longer present ST (T wave) deviation no longer present Electronically Signed On 12-18-2024 18:10:48 EDT by JAGRUTI DOMINIQUE M.D. Dictated By: JAGRUTI DOMINIQUE Signed By: 12/18/24 1811 DD/ 1439 TD/TT: Receiver Setter: Reason For Referral Reason Tachycardia, frequen t PACs & PVCs Diagnosis 1 Tachycardia, unspeci fied (R00.0) Referral Organization [facility] [place] Referring Provider First Name Douglas Referring Provider Last Name Tara Referring Provider Speciality Pulmonolog y Referred Provider Calli Devlin Referred Provider Specialty Cardiology General Notes Faisal Ayala 12/18 04:56:55 PM >Referral was taken to Racheal Mclaughlin at [facility] Cardiology., Faisal Ayala 12/20/2024 11:19:56 AM >I called and spoke with Vianney at [facility] Cardiology who confirmed the referral was received and states she has left a voicemail for the patient to call the office. Vianney states the patient was previously under [facility] Cardiology care but did not follow up in the past., Faisal Ayala 12/27/2024 11:16:15 AM >I called and spoke with Vianney at [facility] Cardiology who states the patient has not returned the call to schedule. I personally called the patient and advised him he needs to return the call to [facility] Cardiology and schedule. Patient verbalized understanding and states he planned on calling today., Faisal Ayala 12/27/2024 01:28:07 PM >Patient called and left a voicemail stating he is scheduled with [facility] on 01/24/2025 at 1400., Faisal [...] Administration Date Status Comme nts Flu, Flucelvax (30341) 6 mos and older, single-dose syringe (1284-4660) Unknown 04/30/2024 Administered Flu, Flucelvax (44017) 2 yrs +, single-dose syringe (5332-0852) Unknown 05/16/2020 Administered Pneumococcal (Prevnar 13) Unknown [...] Risk Notes Problem Chronic obstructive pulmonary disease (62866635) Chronic obstructive pulmonary disease, unspecified (J44.9) Active confirmed Problem Fxgtz-8-wllqayna sin deficiency (94225974) 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 , 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 (113.6mg /dL) Problem Centrilobular emphysema (82575560) Centrilobular emphysema (J43.2) Active confirmed Problem Chronic respiratory failure (18411115) Chronic respiratory failure with hypoxia (J96.11) Active confirmed Problem Long-term current use of inhaled steroid (705064385) bed bug exterminator (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 (Z79.51) Active confirmed Problem Long-term current use of systemic steroid (051650523638803 ) bed bug exterminator (current) use of systemic steroids (Z79.52) Active confirmed Problem Obesity (835093688) Obesity (E66.9) Active confirmed Problem Obstructive sleep apnea syndrome (70354739) RANCHO (obstructive sleep apnea) (G47.33) Active confirmed Problem Generalized anxiety disorder (15439246) CANDACE (generalized anxiety disorder) (F41.1) Active confirmed Problem Acute exacerbation of chronic obstructive airways disease (632084557) COPD exacerbation (J44.1) Active confirmed Problem Type II diabetes mellitus well controlled (444772235) Diabetes mellitus type 2, controlled (E11.9) Active confirmed Problem Ex-tobacco user (finding) (802465127) History of tobacco abuse (Z87.891) Active confirmed 3ppd x 40 years (120 pack-yea rs), quit 2012 Problem Long-term current use of insulin (457086013) Long-term insulin use (Z79.4) Active confirmed Problem Leukocytosis (692137125) Elevated WBCs (D72.829) Active confirmed Problem Essential hypertension (76236144) BP (high blood pressure) (I10) Active confirmed Problem Hypertensive disorder (36915340) Chronic hypertension (I10) Active confirmed Problem Diabetes mellitus (44869642) Diabetes mellitus (E11.9) Active confirmed Problem Obese class II (173248136137135 ) Body mass index [BMI] 35.0-35.9, adult (Z68.35) Active confirmed Problem Body mass index 35.00 to 39.99 (101495252573176 ) Body mass index [BMI] 37.0-37.9, adult (Z68.37) Active confirmed Problem History of COVID-19 (582350376376276 105) History of COVID-19 (Z86.16) Active confirmed [...] Encounters Encounter Location Date Provider Diagnosis Pulmonary [facility] [address] [place] [address] 05/30/2024 [facility] [address] [place] [address] 07/02/2024 [facility] Pulmonary [facility] [address] [place] [address] [facility] [address] [place] [address] 12/19/2024 [facility] [address] [place] [address] 01/31/2025 [facility] [address] [place] [address] 06/20/2024 [facility] Centrilobular emphys lane J43.2 ; Lialg-3-auhauvltngn deficiency E88.01 ; Chronic respiratory failure with hypoxia J96.11 ; RANCHO (obstructive sleep apnea) G47.33 ; Diabetes mellitus type 2, controlled E11.9 ; Obesity E66.9 ; bed bug exterminator (current) use of systemic steroids Z79.52 ; assisted (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 Z79.51 and History of tobacco abuse Z87.891 [facility] [address] [place] [address] 09/19/2024 [facility] [address]rilob[address] emphys lane J43.2 ; Ulldu-8-xuhilnvkagq deficiency E88.01 ; Chronic respiratory failure with hypoxia J96.11 ; RANCHO (obstructive sleep apnea) G47.33 ; Diabetes mellitus type 2, controlled E11.9 ; Obesity E66.9 ; assisted (current) use of systemic steroids Z79.52 ; bed bug exterminator (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 Z79.51 and History of tobacco abuse Z87.891 [facility] [address] [place] [address] 12/18/2024 Douglas Pacheco Centrilobular emphys lane J43.2 ; Tachycardia, unspecified R00.0 ; Lygqn-3-tdjgvmomoys deficiency E88.01 ; Chronic respiratory failure with hypoxia J96.11 ; RANCHO (obstructive sleep apnea) G47.33 ; Diabetes mellitus type 2, controlled E11.9 ; Obesity E66.9 ; bed bug exterminator (current) use of systemic steroids Z79.52 ; bed bug exterminator (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 Z79.51 and History of tobacco abuse Z87.891 Assessments Encounter Date Diagnosis (ICD Code) Assessment Notes Treatment Notes Treatment Clinical Notes Section Notes 06/20/2024 Centrilobular emphysema (ICD-10 - J43.2) Very [...] written and handed to the patient. 06/20/2024 Othhw-9-sxzsokmzp in deficiency (ICD-10 - E88.01) Genotype: MZ [...] at this time. He previously went to [place] for evaluation of endobronchial valves or lung [...] Participated in pulmonary rehab. Was evaluated in [place] for endobronchial valves & lung transplant ~2022, but he was deemed to be in too good a shape at that time. Clinical status has declined. He was instructed to return to [place] for re-evaluation, but he has not gone - he was reminded to contact their office to schedule an appointment as he is already established there. 12/18/2024 Tachycardia, unspecified (ICD-10 - R00.0) Tachycardic and irregular on examination. Concern for afib - he has severe COPD. Ordered a STAT EKG through [facility] (was done in my presence as [...] contribute to tachycardia and ectopy. He saw [facility] Dr. Devlin ~7 years ago. I recommended re-evaluation by cardiology as I am limited on what I am able to do for him currently. 12/18/2024 Wtgnd-2-xhjqflhtm in deficiency (ICD-10 - E88.01) Genotype: MZ [...] then I would recommend a port. 09/19/2024 Udroz-5-moongddle in deficiency (ICD-10 - E88.01) Genotype: MZ , 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 (113.6mg/dL) Restarted Prolastin. Continue with weekly infusions. 06/20/2024 Chronic respiratory failure with hypoxia (ICD-10 - J96.11) Catc-mm-ynus encounter performed with the patient to document [...] of requiring O2.-Recommendations : Continue O2 ATC 06/20/2024 RANCHO (obstructive sleep apnea) (ICD-10 - G47.33) Previously addressed: Wkua-yx-twdq encounter performed with the patient to document continued need for PAP therapy. -Current DME: MOG-Ubedu-bsbxq 02/23/2023 AHI 20; BiPAP titration: 30/04 -Compliance [...] use. Patient voices no concerns toay.-Note: This ueqx-tc-nhgo visit comes with my authorization that the patient's DME may request to renew, reorder, and/or replace tubing, supplies, mask, and/or PAP device (if applicable). 09/19/2024 Chronic respiratory failure with hypoxia (ICD-10 - J96.11) Gxyo-tm-etug encounter performed with the patient to document [...] respiratory failure with hypoxia (ICD-10 - J96.11) Yhbs-xj-wsiy encounter performed with the patient to document [...] RANCHO (obstructive sleep apnea) (ICD-10 - G47.33) Jlkp-mv-qbsq encounter performed with the patient to document continued need for PAP therapy. -Current DME: CGT-Sqsgf-zqxyb 02/23/2023 AHI 20; BiPAP titration: 10 -Compliance was reviewed from 02/11/2024 - 03/11/2024-Total [...] excellent compliance and voices no issues.-Note: This xbrx-vk-usax visit comes with my authorization that the patient's DME may request to renew, reorder, and/or replace tubing, supplies, mask, and/or PAP device (if applicable). 09/19/2024 RANCHO (obstructive sleep apnea) (ICD-10 - G47.33) Previously addressed: Wqcq-gh-rtje encounter performed with the patient to document continued need for PAP therapy. -Current DME: GKA-Zsrvo-npbqz 02/23/2023 AHI 20; BiPAP titration: 30/04 -Compliance [...] use. Patient voices no concerns toay.-Note: This rgvl-gn-aumf visit comes with my authorization that the patient's DME may request to renew, reorder, and/or replace tubing, supplies, mask, and/or PAP device (if applicable). 06/20/2024 Diabetes mellitus type 2, controlled (ICD-10 - E11.9) Goal is to eventually get patient off steroids d/t underlying DM2. 06/20/2024 Obesity (ICD-10 - E66.9) Continue losing weight. 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 Monitor for hyperglycemia. 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 Monitor for hyperglycemia. 12/18/2024 Obesity (ICD-10 - E66.9) Weight loss advised. 09/19/2024 Obesity (ICD-10 - E66.9) Weight loss advised. 06/20/2024 bed bug exterminator (current) use of systemic steroids (ICD-10 - Z79.52) Discussed adverse effects of ad terminal makeup operator systemic steroids including, but not limited to: increased risk of cataracts, elevated blood sugars/worsening of underlying diabetes mellitus, impaired wound healing, gastrointestinal ulcers, osteoporosis. 06/20/2024 assisted (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 (ICD-10 - Z79.51) Patient was counseled to rinse & gargle with water after inhaled corticosteroid use. 09/19/2024 assisted (current) use of systemic steroids (ICD-10 - Z79.52) Discussed adverse effects of jail systemic steroids including, but not limited to: increased risk of cataracts, elevated blood sugars/worsening of underlying diabetes mellitus, impaired wound healing, gastrointestinal ulcers, osteoporosis. 12/18/2024 assisted (current) use of systemic steroids (ICD-10 - Z79.52) Discussed adverse effects of jail systemic steroids including, but not limited to: increased risk of cataracts, elevated blood sugars/worsening of underlying diabetes mellitus, impaired wound healing, gastrointestinal ulcers, osteoporosis. 12/18/2024 assisted (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 (ICD-10 - Z79.51) Patient was counseled to rinse & gargle with water after inhaled corticosteroid use. 09/19/2024 bed bug exterminator (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 (ICD-10 - Z79.51) Patient was counseled to rinse & gargle with water after inhaled corticosteroid use. 06/20/2024 History of tobacco abuse (ICD-10 - Z87.891) 3ppd x 40 years (120 pack-years), quit 2012 3ppd x 40 years (120 pack-years), quit 2012 LDCT due 12/2024. 09/19/2024 History of tobacco abuse (ICD-10 - [...] Coverage Start Date Coverage End Date [facility] [address] [place] [address] [phone] [id number] Ricardo Hallman Self - patient is the insured MEDICAID [place] 2ND INS [address] OFFICE OF [place], [place] [phone] [id number] Ricardo Hallman Self - patient is the insured 3 Medical (General) History Medical History History ICD Code Centrilobular emphysema J43.2 Pgaff-6-iwtytrduskf deficiency E88.01 Chronic respiratory failure with hypoxia J96.11 RANCHO (obstructive sleep apnea) G47.33 Diabetes mellitus type 2, controlled E11 .9 GERD (gastroesophageal reflux disease) K 21.9 Essential Hypertension I10 Depression F32.A Obesity E66.9 bed bug exterminator (current) use of inhaled stero ids Z79.51 History of tobacco abuse Z87.891 History of COVID-19 Z86.16 Surgical History Surgery Date(Month/Year) oral surgery Hospitalization History Reason Date(Month/Year) COPD Exacerbation-TB[facility] 04/28/2024 Tsggk-33-QKJ ER 10/16/2023 COPD Exacerbation-TBH 06/20/2023 COPD Exacerbation-TBH 12/20/2022
--- OUTSIDE RECORDS SUMMARY | 2025-05-01 13:57 | XMS_ITS | Encounter Summary ---
Author Organization [facility] Address [address] [place] [address] Care Team Providers Care Plant Chief Name Role Phone Janet Benavides MD Primary Care Provider [phone] Douglas Pacheco DO Unavailable [phone] Source Comments In the event this information is protected by the Federal Confidentiality of Alcohol and Drug AbusePatient Records regulations: The Federal rules restrict any use of the information to criminally investigate or prosecute any alcohol or drug abuse patient.[facility] Encounter Details Date Type Department Care Team (Latest Contact Info) Description 04/23/2025 Travel Social History Tobacco Use Types Packs/Day Years Used Date Smoking Tobacco: Former Cigarettes Comments:Almost 80 pack year smoker Area Deprivation Index Answer Date Chirag rded National Score (1-100), lower number is lower ri sk 61 03/11/2025 State Score (1-10), lower number is lower risk 4 03/11/2025 Data from: https://www.neighborhoodatlas.medicine.[facility].edu/. Last address used for calculation [address] 03/11/2025 Sex and Gender Information Value Date Recorded Sex Assigned at Not on file Legal Sex Male 8:40 AM EDT Gender Identity Male 03/17/2021 10:03 PM EDT Sexual Orientation Straight 03/17/2021 10 :03 PM EDT documented as of this encounter Plan of Treatment Upcoming Encounters Date Type Department Care Team (Late st Contact Info) Description 05/10/2025 12:30 PM EDT Procedure Pulmonary Medicine [address] [place] [address] Chronic obstructive pulmonary disease, unspecified COPD type (HCC) [J44.9] 05/10/2025 1:00 PM EDT Office Visit [facility]monary Medicine [address] [place] [address] [place] [address] [place] [address] Chronic obstructive pulmonary disease, unspecified COPD type (HCC) [J44.9] documented as of this encounter Visit Diagnoses Not on filedocumented in this encounter Care Teams Plant Chief Relationship Specialty Start Date End Date Janet Benavides MD [address] [place] [phone] PCP - General Family Medicine 03/12/20 Douglas Pacheco DO [address] [place] [address] Referring Pulmonary and Critical Care Medicine 03/12/20 documented as of this encounter
--- OUTSIDE RECORDS SUMMARY | 2025-05-01 13:57 | XMS_ITS | Clinical Summary ---
Author Organization [facility] Address [address] [place] [address] Care Team Providers Care Organ Pipe Finisher Name Role Phone Unavailable Primary Care Provider [...]
--- OUTSIDE RECORDS SUMMARY | 2025-05-01 14:02 | XMS_ITS | CCD ---
Author Organization [facility] CliniSyme Care Team Providers Care [employer] Sewer Name Role Phone ELTAHAWY, EHAB A Admitting Unavailable ELTAHAWY, EHAB A Attending Unavailable BRYON COWART Referring Unavailable ELTAHAWY, EHAB Marek Primary Care Unavailable Bryon Cowart MD Primary Care Provider [phone] Sam DOVanda P Unavailable Bryon Cowart Unavailable SAMSA [...] Unavailable Bryon Cowart MD Primary Care Provider [phone] Vanda Gonzalez DO Unavailable [phone] SARAH TRIVEDI Primary Care Physician Richardson GOSS, Pranay Mclaughlin Emergency Provider [facility] Primary [facility] Provider Clifton Calderon MD Admit Provider Clifton Calderon MD Attending Provider Eden Greenwood MD Attending Provider [phone] NGOZI TRIVEDI A Attending Unavailabl e SHIKHA, NGOZI SARAH A Attending Unavailabl e SHIKHA, NGOZI SARAH A Attending Unavailabl e SHIKHA, CAREER COORDINATOR SARAH A Attending Unavailabl e SHIKHA, NGOZI SARAH A Attending Unavailabl e SHIKHA, CAREER COORDINATOR SARAH A Attending Unavailabl e SHIKHA, CAREER COORDINATOR SARAH A Attending Unavailabl e SHIKHA, CAREER COORDINATOR SARAH A Attending Unavailabl e SHIKHA, CAREER COORDINATOR SARAH A Attending Unavailabl e SHIKHA, CAREER COORDINATOR SARAH A Attending Unavailabl e SHIKHA, CAREER COORDINATOR SARAH A Attending Unavailabl e SHIKHA, CAREER COORDINATOR SARAH A Admitting Unavailabl e SHIKHA, CAREER COORDINATOR SARAH A Attending Unavailabl e SHIKHA, CAREER COORDINATOR SARAH A Admitting Unavailabl e SHIKHA, CAREER COORDINATOR SARAH A Admitting UnavailBryon Henry MD Primary Care Provider VINAY, LESLYE Referring Unavailable COWART, BRYON E [...] Admitting Unavailable CALLI DEVLIN Attending Unavailable Shikha SIGN HANGER-BC, Sarah A Primary Care Provider Vinay GOSS, Leslye Attending Provider [phone] Phi GOSS, Joo Attending Provider [phone] Chris ROSARIO, Abel Can Emergency Provider Marquis GOSS, Serene Admit Provider Marquis GOSS, Serene Attending Provider VINAY, LESLYE Attending Unavailable COWART, BRYON E [...] [metformin] Drug Allergy 1 Intolerance, Diarrhea (finding) [facility] (4 sources) metFORMIN Drug Allergy Diarrhea [facility] Other (1 source) metFORMIN Drug Allergy 2 [facility] Repository (1 source) metFORMIN Drug Allergy [...] Prolastin-C 1000 MG as directed Intravenous Active qaydl-8-jioziybrgg inhibitor (Human) 1,000 mg in water for injection (17 sources) Start: 03-25-2021 inject 1000 mg intravenously every week tnojd-6-agxcsvturi inhibitor (Human) 1,000 mg in water for injection Inject 1,000 mg intravenously one time a week. 03/25/2021 Active Start: 03-25-2021 inject 1000 mg intra venously every week ptfxw-0-qwvylfutgr inhibitor (Human) 1,000 mg in water for [...] Daily, # 90 tab(s), Refills(s) 1, Pharmacy: [facility]/pharmacy #[id number], 177, cm, 10/25/24 14:03:00 EDT, [...] day(s), # 42 cap(s), Refills(s) 0, Pharmacy: [facility]/pharmacy #[id number], 177, cm, 10/25/24 14:03:00 EDT, [...] TABLET BY MOUTH DAILY for 30 Active Gqtxkkikprq-Bjuzrkfxx-Ocfaxn er (20 sources) Anticholinergic, Corticosteroid, beta2-Adrenergic Agonist Start: 10-04-2024 Luypsqoxvif-Hrehkichh-Axtcmo er (Trelegy Ellipta) 100-62.5-25 mcg blister with device Active 1 INH INHALATION Every morning October 04, 2024 12:00am Complies with drug therapy Start: 10-04-2024 Start: 10-04-2024 Fluticasone-Um eclidin-Vilanter (Trelegy Ellipta) 100-62.5-25 mcg blister with device Active 1 INH INHALATION Daily at 0630 October 04, 2024 12:00am Start: 02-17-2021 take 1 puff(s) by mo [facility] once daily TRELEGY ELLIPTA 100-62.5-25 mcg INHALE [...] 03-25-2021 take 2 tablets by mo [facility] twice daily guaiFENesin (MUCINEX) 600 mg 12 hr tablet Take 2 tablets by mouth twice daily. 03/25/2021 Active take 1 tablet by [facility] every twelve hours Mucinex 600 MG 1 tablet as needed Orally every 12 hrs Active Comment on above: Take 2 tablets by mo [facility] twice daily. Handicap placards as directed [...] # 40 tab(s), Refills(s) 0, [id number], cm, 02/19/25 15:09:00 [...] ANXIETY, # 270 tab(s), Refills(s) 0, Pharmacy: [facility] STORE [id number], 177, cm, 06/04/24 15:02:00 EST, Height/Length Dosing, 108, kg, 06/04/24 15:02:00 EST, Weight Dosing Start Date: 10/08/24 Status: Ordered Quantity: 270.0 Unit: tab(s) Repeat number: 1 Start: 01-24-2024 take 1 tablet by [facility] three times daily as needed for anxiety hydrOXYzine hydrochloride 25 mg Tab 25 mg = 1 tab(s), Oral, TID, PRN for anxiety, # 90 tab(s), Refills(s) 2, [id number], cm, 01/24/24 10:21:00 EDT, Height/Length [...] therapy Start: 03-20-2025 ipratropium [place] 0.03% [place] Refill(s) 0 Start Date: 03/20/25 Status: Ordered [...] scarlett, Topical, TID, 15 gram, Refill(s) 0, [facility]/pharmacy #[id number], 177, cm, 02/19/25 15:09:00 EDT, Height/Length Dosing, 109.7, kg, 02/19/25 15:09:00 EDT, Weight Dosing Start Date: 02/19/25 Status: Ordered Quantity: 15.0 Unit: g Repeat number: 1 Indications: Candidiasis of skin and nail; Hollins 3 1000 MG (20 sources) take 1 capsule by mouth once daily Hollins 3 1000 MG 1 capsule Orally Once a day Active Hollins-3 Fatty Acids (1 source) Start: 09-14-2023 take 1000 mg by mouth once daily Hollins-3 Fatty Acids Active 1000 MG PO Daily September 14, 2023 1:00am omeprazole 20 mg delayed release oral capsule (20 sources) Proton Pump Inhibitor Start: 01-30-2025 take 1 capsule by mouth once daily omeprazole 20 mg Cap-DR See Instructions, TAKE 1 CAPSULE BY MOUTH EVERY DAY, # 90 cap(s), Refills(s) 0, Pharmacy: [facility] STORE [id number], 177, cm, 10/25/24 14:03:00 EDT, Height/Length Dosing, [...] BEDTIME, # 90 tab(s), Refills(s) 1, Pharmacy: [facility]/pharmacy #[id number], 177, cm, 02/19/25 15:09:00 EDT, Height/Length Dosing, 109.7, kg, 02/19/25 15:09:00 EDT, Weight Dosing Start Date: 02/19/25 Status: Ordered Quantity: 90.0 Unit: tab(s) Repeat number: 2 Start: 10-23-2024 take 1 tablet by [facility] once daily at bedtime pravastatin 80 mg Tab See Instructions, TAKE 1 TABLET BY MOUTH EVERYDAY AT BEDTIME, # 30 tab(s), Refills(s) 0, Pharmacy: [facility]/pharmacy #[id number], 177, cm, 06/04/24 15:02:00 EST, [...] bedtime), # 90 tab(s), Refills(s) 1, Pharmacy: [facility]/pharmacy #[id number], 177, cm, 01/24/24 11:56:00 EDT, [...] NACL 0.9% 25 mL FLUSH (I [id number]) Inject 10 mL intravenously. 0 02/13/2021 05/15/2022 [...] HOURS, # 180 tab(s), Refills(s) 0, Pharmacy: [facility] STORE [id number], 177, cm, 06/04/24 15:02:00 EST, Height/Length Dosing, 108, kg, 06/04/24 15:02:00 EST, Weight Dosing Start Date: 07/16/24 Status: Ordered Quantity: 180.0 Unit: tab(s) Repeat number: 1 Start: 01-24-2024 take 1 tablet by [facility] every twelve hours theophylline 450 mg ER Tab 450 mg = 1 tab(s), Oral, q12hr, # 180 tab(s), Refills(s) 0, Pharmacy: [facility]/pharmacy #[id number], 177, cm, 01/24/24 10:21:00 EDT, Height/Length Dosing, [...] DAY, # 180 cap(s), Refills(s) 0, Pharmacy: [facility] / TLL [id number], 177, cm, 10/25/24 14:03:00 EDT, Height/Length Dosing, [...] 1:49am Start: 03-03-2021 [facility] VENLAFAXINE ER 150 MG TABLET,EXTENDED RELEASE 24 HR Take 150 mg by mouth twice daily. 03/03/2021 Active take 1 capsule by mo [facility] every twelve hours Effexor XR 150 MG 1 capsule with food Orally bid for 90 days Active take 1 capsule by mo ut every twenty-four hours Effexor XR 150 MG 1 capsule with food Orally Once a day for 30 days Active take 1 capsule by mo [facility] every twelve hours Effexor XR 75 [...] or as allowed by insurance; DX: E11.9, [facility]/pharmacy #[id number], Supply, 177, cm, 10/25/24 14:03:00 [...] 15, 2023 1:00am October 04, 2024 1:48am Hollins-3 Fatty Acids 1,000 mg capsule (4 sources) Start: 09-14-2023 End: 10-04-2024 take 1 capsule by mouth once daily Hollins-3 Fatty Acids 1,000 mg capsule Discontinued 1000 [...] group home (current) drug therapy; Translations: [OTH HALFWAY CURRENT DRUG THERAPY] Onset: 10-05-2022 Episodic Other aftercare (1 source) [facility] (current) use of aspirin; Translations: [HALFWAY CURRENT USE OF ASPIRIN] Onset: 10-05-2022 Episodic Other aftercare (1 source) [facility] (current) use of oral hypoglycemic drugs; Translations: [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 ORAL HYPOGLYCEMIC DX] Onset: 08-19-2022 Episodic Other aftercare (4 sources) Encounter for therapeutic drug level monitoring; Translations: [ENC THERAPEUTC DRUG LEVL MONITORING] Onset: 08-10-2022 Episodic Other aftercare (2 sources) [facility] (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; Translations: [[facility] (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] Onset: 01-24-2025 Episodic Other lower respiratory disease (4 sources) Shortness of breath; Translations: [SHORTNESS OF BREATH] Onset: 09-01-2022 Episodic Other lower respiratory disease (4 sources) Hypoxemia; Translations: [HYPOXEMIA] Onset: 08-17-2022 Episodic Other non-traumatic joint disorders (4 sources) Pain in left knee; Translations: [Chronic pain of left knee] 11-14-2023 Episodic Other nutritional; endocrine; and metabolic disorders (20 sources) Wlfwj-8-mnfmdwpxtzm deficiency; Translations: [Whtbi-3-ohkghocskha deficiency] Onset: 02-16-2021 03-25-2021 Chronic Other nutritional; [...] nutritional; endocrine; and metabolic disorders (5 sources) Jjkvu-5-zcgxhnywalx deficiency; Translations: [Xrnmg-2-vnjbpxzxeuz deficiency] Onset: 03-25-2021 10-05-2024 Chronic Other nutritional; [...] Four Ways to Beat the Frailty Risk [email or web address]://[email or web address].[email or web address].org/health/[facility] ouv-joi-iplczveudw/sta z-jylrpo-dgvv-ways-to- qzdu-xmi-kph ilty-risk 10-05-2024 Unclassified (4 sources) Long-term current [...] SerPl-mCncon Theophylline [Mass/Vol] 3.1 ug/mL Low 10.0-20.0 [facility] Comment on above: Order Comment: Speci men Type: BLOOD SPECIMEN Ordering Facility: [facility] Address: [address] [place] [address] Result Comment: Refe rence ranges and high/low indicator flags are provided as general guidelines only. The treating physician must determine appropriate target levels/dosing based on the specific clinical situation. Performed By: #### 4 049-3 #### [facility] CLIA [id number] [address] [place] [address] CNPNon 04-21-2025 CNPN Telephone (PULMAV) -- RICARDO HYLTON ([id number]) 1960 M Date Time Provider Department 04/21/25 [...] breath. Inhale over 5-15 minutes - Ipratropium [place] (ATROVENT) 21 mcg (0.03 %) nasal spray Use 2 sprays in the nose every 12 hours. 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] 02/16/2021 Chronic obstructive pulmonary disease (HCC) [J4*01/17/2019 Essential hypertension [I10] 02/14/2019 RANCHO (obstructive sleep apnea) [G47.33] 03/25/2021 Depression [F32.A] 03/25/2021 GERD (gastroesophageal reflux disease) [K21.9] 03/25/2021 Diabetes (HCC) [E11.9] 03/25/2021 Bipolar 1 disorder (HCC) [F31.9] 03/25/2021 Encounter Status:Closed by LESLYE MCLEAN on 04/21/25 [facility] 04-18-20 [facility] Case Information Case Priority: None Programs: -- Referral Source: Continuous Improvement Analyst Referral Reason: Care coordination Case Type: Transition [...] Former smoker History of opioid abuse Hyperlipidemia 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 [...] filled the Rx's? going this afternoon to grape picker when ready Are you taking them [...] message-voicemail Cont (more content not included)... Normal [facility] Basic Metabolic Panelon 09-3 Anion gap [Moles/Vol] 14.7 mmol/L Normal 6.0-15.0 [facility] Comment on above: Performed By: #### G LULS #### Point of Care testing , Calcium [Mass/Vol] 9.2 mg/dL Normal 8.6-10.3 [facility] Comment on above: Performed By: #### G LULS #### Point of Care testing , Chloride [Moles/Vol] 100 mmol/L Normal 98-107 [facility] Comment on above: Performed By: #### G LULS #### Point of Care testing , CO2 [Moles/Vol] 28.7 mmol/L Normal 21.0-31.0 [facility] Comment on above: Performed By: #### G LULS #### Point of Care testing , Creatinine [Mass/Vol] 1.09 mg/dL Normal 0.70-1.30 [facility] Comment on above: Performed By: #### G LULS #### Point of Care testing , Creatinine Clr Calc Pharmacy 82.89 Normal [facility] Comment on above: Result Comment: PERF ORMED BY: [place] [id number] PATHOLOGIST RISK CONTROL FIELD REPRESENTATIVE SHIVA RIVAS M.D. Performed By: #### G LULS #### Point of Care testing , GFR/1.73 sq M.predicted MDRD (S/P/Bld) [Vol rate/Area] mL/min/{1.73_m2} Normal [facility] Comment on above: Performed By: #### G LULS #### Point of Care testing , Glucose [Mass/Vol] 193 mg/dL High 70-100 [facility] Comment on above: Result Comment: [facility] Glucose Reference Range is dependent on time and content of last meal. Glucose of more than 200 mg/dL in a nonstressed, ambulatory subject supports the diagnosis of Diabetes Mellitus. ADA recommended reference range Performed By: #### G LULS #### Point of Care testing , Potassium [Moles/Vol] 4.4 mmol/L Normal 3.5-5.1 [facility] Comment on above: Performed By: #### G LULS #### Point of Care testing , Sodium [Moles/Vol] 139 mmol/L Normal 136-145 [facility] Comment on above: Performed By: #### G LULS #### Point of Care testing , Urea nitrogen [Mass/Vol] 24 mg/dL Normal 7-25 [facility] Comment on above: Performed By: #### G LULS #### Point of Care testing , ECH echo transthoracicon [facility] echo transthoracic [facility] Main [place] [id number] Echocardiogram Signed Patient: Ricardo Hylton MR#: [id number] : 1960 Acct:[id number] Age/Sex: 64 / M ADM Date: 04/15/25 Loc: Room: [address] [place] [address] Type: ADM IN Attending Dr: Gael Marrero DO Ordering Provider: Serene Cho MD Date of Service: 04/15/25 ECH/ECH echo transthoracic: Shortness of Breath/Dyspnea Copies to: MD Simba Tellez MD A PM Patient Location: : 1960 Gender: Male (MM/DD/YYYY) Age: 64 Years Ordering Physician: Serene Cho Height: 69 in Weight: 244.272 lb Performed By: Florencio Major [facility], T BSA: 2.25 m2 BP: 131 / [...] By: Simba Williamson MD 04/16/252000 Normal [facility] Alanine aminotransferase [En zymatic activity/volume] in Serum or PlasmaOrdered By: Abel Perez on 04-15-2025 ALT [Catalytic activity/Vol] 14 U/L Normal 7-52 [facility] Comment on above: Performed By: #### B CALISTA, RESP PANEL UPP. #### [address] [place] [address] [facility] Albumin [Mass/volume] in Ser [...] #### B IOFIRECOVDET, RESP PANEL UPP. #### [facility] [address] Ambulatory Visit Summaryon 0 04-15-2025 Ambulatory Visit Summary Ambulatory Visit Summary RICARDO HYLTON :1960 Visit Date:04/15/2025 Ambulatory Visit Instructions Your Diagnosis Elevated PSA BPH with obstruction/lower urinary tract symptoms Chronic prostatitis Former smoker Other obstructive and reflux uropathy Your Care Team Attending Physician - BARRERA Nuñez APRN, Flora Torre Primary Care Physician - SARAH TRIVEDI CNP This Is Your Medications List [facility] Prescription (Glucose Kit) albuterol-ipratropium [...] oral tablet) ipratropium nasal (ipratropium Nasal 0.03% [place]) lisinopril (lisinopril 5 mg Tab) metoprolol (metoprolol [...] Appointments Tuesday 2:30 PM EST With: Where: [address] [address]- Tuesday 3:20 PM EST With: SARAH TRIVEDI CNP Where: [address] [address]- Tuesday2025 1:15 PM EDT With: Joo YIP MD Where: [facility] [address] [place] [address]- Medications What How Much When Why Instructions [...] ANXIETY Unchanged ipratropium nasal (ipratropium Nasal 0.03% [place]) Unchanged lisinopril (lisinopril 5 mg Tab) 1 Tablets By Mouth Every day Unchanged metoprolol (metoprolol 25 mg ER Tab) 1 Tablets By Mouth Every day Unchanged [facility] Prescription (Glucose Kit) See [...] Chronic pro (more content not included)... Normal [facility] Arterial Blood [place] 025 ABG Base Excess 0.3 mmol/L Normal -3.0-3.0 [facility] Comment on above: Performed By: #### B CALISTA, RESP PANEL UPP. #### [place] [address] ABG Frac Inspired O2 60 % Normal [facility] Comment on above: Performed By: #### B IOFIRECOVDET, RESP PANEL UPP. #### [address] ABG Liter Flow 8 Normal [facility] Comment on above: Performed By: #### B IOFIRECOVDET, RESP PANEL UPP. #### [address] ABG Oxygen Content 9.5 mmol/L Normal 6.6-9.7 [facility] Comment on above: Performed By: #### B IOFIRECOVDET, RESP PANEL UPP. #### [address] ABG Oxygen Saturation 97.9 % Normal 95.0-100.0 [facility] Comment on above: Performed By: #### B IOFIRECOVDET, RESP PANEL UPP. #### [address] ABG PCO2 38.7 mm[Hg] Normal 35.0-45.0 [facility] Comment on above: Performed By: #### B IOFIRECOVDET, RESP PANEL UPP. #### [address] ABG PH 7.42 Normal 7.35-7.45 [facility] Comment on above: Performed By: #### B IOFIRECOVDET, RESP PANEL UPP. #### [address] ABG PO2 108.8 mm[Hg] High 80.0-100.0 [facility] Comment on above: Performed By: #### B IOFIRECOVDET, RESP PANEL UPP. #### [address] Oxygen Device Aerosol Normal [facility] Comment on above: Performed By: #### B IOFIRECOVDET, RESP PANEL UPP. #### [address] [place] [address] [place] Respiratory Critical Normal [facility] Comment on above: Result Comment: Crit ical Value called on: 04/15/2025 at 15:13 PERFORMED BY: [place] [address] PATHOLOGIST RISK CONTROL FIELD REPRESENTATIVE SHIVA RIVAS M.D. Performed By: #### B IOFIRECOVDET, RESP PANEL UPP. #### [address] VBG Draw Site Left Radial Normal [facility] Comment on above: Performed By: #### B IOFIRECOVDET, RESP PANEL UPP. #### [address] Arterial Blood GasOrdered By : Abel Perez on 04-15-2025 CO2 [Moles/Vol] 25.8 mmol/L Normal 23.0-27.0 [facility] Comment on above: Performed By: #### B IOFIRECOVDET, RESP PANEL UPP. #### [address] HCO3 (Bld) [Moles/Vol] 24.6 mmol/L Normal 23.0-29.0 [facility] Comment on above: Performed By: #### B IOFIRECOVDET, RESP PANEL UPP. #### [address] Aspartate aminotransferase [ Enzymatic activity/volume] in Serum or PlasmaOrdered By: Abel Perez on 04-15-2025 AST [Catalytic activity/Vol] 13 U/L Normal 13-39 [facility] Comment on above: Performed By: #### B IOFIRECOVDET, RESP PANEL UPP. #### [address] BNP ser/plasOrdered By: Robin Perez on 04-15-2025 Natriuretic peptide B (Bld) [Mass/Vol] 17.0 pg/mL Normal 5-100 [facility] Comment on above: Result Comment: PERF ORMED BY: [place] [address] PATHOLOGIST RISK CONTROL FIELD REPRESENTATIVE SHIVA RIVAS M.D. Performed By: #### B IOFIRECOVDET, RESP PANEL UPP. #### [address] Basophils [#/volume] in Bloo d by Automated countOrdered By: Abel Perez on 04-15-2025 Basophils (Bld) [#/Vol] 0.1 10*3/uL Normal 0.0-0.2 [facility] Comment on above: Result Comment: PERF ORMED BY: [place] [address] PATHOLOGIST RISK CONTROL FIELD REPRESENTATIVE SHIVA RIVAS M.D. Performed By: #### B IOFIRECOVDET, RESP PANEL UPP. #### [address] Basophils/100 leukocytes in Blood by Automated countOrdered By: Abel Perez on 04-15-2025 Basophils/100 WBC (Bld) 0.7 % Normal . [facility] Comment on above: Performed By: #### B IOFIRECOVDET, RESP PANEL UPP. #### [address] Bilirubin.total [Mass/volume ] in Serum or PlasmaOrdered By: Abel Perez on 04-15-2025 Bilirubin [Mass/Vol] 0.6 mg/dL Normal 0.3-1.0 [facility] Comment on above: Performed By: #### B IOFIRECOVDET, RESP PANEL UPP. #### [place] [address] [place] BioFire Not Detectedon 04-15 BioFire Not Detected Not detected Normal Not Detecte [facility] Comment on above: Result Comment: This is a duplicate RP2.1 COVID (PCR) result to be used for statistical tracking purpose only. PERFORMED BY: [place] [address] PATHOLOGIST RISK CONTROL FIELD REPRESENTATIVE SHIVA RIVAS M.D. Performed By: #### G [...] 04-15-2025 Calcium [Mass/Vol] 9.1 mg/dL Normal 8.6-10.3 [facility] Comment on above: Performed By: #### B IOFIRECOVDET, RESP PANEL UPP. #### [address] Carbon dioxide, total [Moles /volume] in Serum or PlasmaOrdered By: Abel Perez on 04-15-2025 CO2 [Moles/Vol] 29.6 mmol/L Normal 21.0-31.0 [facility] Comment on above: Performed By: #### B IOFIRECOVDET, RESP PANEL UPP. #### [facility] [address] [place] [address] Chloride [Moles/volume] in S bee or PlasmaOrdered By: Abel Perez on 04-15-2025 Chloride [Moles/Vol] 102 mmol/L Normal 98-107 [facility] Comment on above: Performed By: #### B IOFIRECOVDET, RESP PANEL UPP. #### [address] Complete Blood Count Auto Di ffon 04-15-2025 Mean Corpuscular HGB Conc 32.8 g/dL Normal 32.5-35.6 [facility] Comment on above: Performed By: #### B IOFIRECOVDET, RESP PANEL UPP. #### [place] [address] [place] Monocytes/100 WBC (Bld) 16.49 % Normal 0.00-20.00 [facility] Comment on above: Performed By: #### B IOFIRECOVDET, RESP PANEL UPP. #### [address] NRBC% 0.1 /100{WBC} Normal 0-0.5 [facility] Comment on above: Performed By: #### B IOFIRECOVDET, RESP PANEL UPP. #### [address] White Blood Count 9.7 [CFU]/mL Normal 4.1-10.5 [facility] Comment on above: Performed By: #### B IOFIRECOVDET, RESP PANEL UPP. #### [address] Comprehensive Metabolic Pane serene 04-15-2025 Albumin [Mass/Vol] 4.3 g/dL Normal 3.5-5.7 [facility] Comment on above: Performed By: #### B IOFIRECOVDET, RESP PANEL UPP. #### [address] Creatinine Clr Calc Pharmacy 87.31 Normal [facility] Comment on above: Result Comment: PERF ORMED BY: [place] [address] PATHOLOGIST RISK CONTROL FIELD REPRESENTATIVE SHIVA RIVAS M.D. Performed By: #### B IOFIRECOVDET, RESP PANEL UPP. #### [address] GFR/1.73 sq M.predicted MDRD (S/P/Bld) [Vol rate/Area] mL/min/{1.73_m2} Normal [facility] Comment on above: Performed By: #### B IOFIRECOVDET, RESP PANEL UPP. #### [address] Creatine kinase [Enzymatic a ctivity/volume] in Serum or PlasmaOrdered By: Abel Perez on 04-15-2025 CK [Catalytic activity/Vol] 43 U/L Normal 30-223 [facility] Comment on above: Performed By: #### B IOFIRECOVDET, RESP PANEL UPP. #### [facility] [address] Creatinine [Mass/volume] in Serum or PlasmaOrdered By: Abel Perez on 04-15-2025 Creatinine [Mass/Vol] 1.03 mg/dL Normal 0.70-1.30 [facility] Comment on above: Performed By: #### B IOFIRECOVDET, RESP PANEL UPP. #### [facility] [address] ECG 12 lead ECGon 04-15-2025 ECG 12 lead ECG [facility] Main [place] [address] [place] [address] Electrocardiograph Report Signed Patient: Ricardo Hylton MR#: [id number] 88 : 1960 Acct:[id number] Age/Sex: 64 / M ADM Date: 04/15/25 Loc: Room: [address] [place] [address] Type: ADM IN Attending Dr: Serene Cho [...] sinus rhythm Confirmed by Mason MANDEL DO ([id number]) on 04/15/2025 8:04:34 PM Referred By: Electronically Signed By: Mason MANDEL DO Transcribed By: MUS Signed By Mason Mandel DO 0 04/15/252003 Normal [facility] Eosinophils [#/volume] in Bl ood by Automated countOrdered By: Abel Perez on 04-15-2025 Eosinophils (Bld) [#/Vol] 0.0 10*3/uL Normal 0.0-0.45 [facility] Comment on above: Performed By: #### B IOFIRECOVDET, RESP PANEL UPP. #### [facility] [address] Eosinophils/100 leukocytes i n Blood by Automated countOrdered By: Abel Perez on 04-15-2025 Eosinophils/100 WBC (Bld) 0.3 % Normal . [facility] Comment on above: Performed By: #### B IOFIRECOVDET, RESP PANEL UPP. #### [address] Erythrocyte distribution wid th [Ratio] by Automated countOrdered By: Abel Perez on 04-15-2025 Erythrocyte distribution width (RBC) [Ratio] 18.1 % High 12.0-14.8 [facility] Comment on above: Performed By: #### B IOFIRECOVDET, RESP PANEL UPP. #### [address] Erythrocytes [#/volume] in B lood by Automated countOrdered By: Abel Perez on 04-15-2025 RBC (Bld) [#/Vol] 5.95 10*6/uL High 3.90-5.60 [facility] Comment on above: Performed By: #### B IOFIRECOVDET, RESP PANEL UPP. #### [address] Glomerular filtration rate [ Volume Rate/Area] in Serum, Plasma or Blood by CreatinineOrdered By: Abel Perez on 04-15-2025 Glomerular filtration rate [Volume Rate/Area] in Serum, Plasma or Blood by Creatinine > 60.0 mL/Min [facility] Glucose Poct Glucometerson 0 04-15-2025 Glucose [Mass/Vol] 348 mg/dL Normal [facility] Comment on above: Result Comment: [facility] Glucose Reference Range is dependent on time and content of last meal. Glucose of more than 200 mg/dL in a nonstressed, ambulatory subject supports the diagnosis of Diabetes Mellitus. PERFORMED BY: [place] [address] PATHOLOGIST RISK CONTROL FIELD REPRESENTATIVE SHIVA RIVAS M.D. Performed By: #### B IOFIRECOVDET, RESP PANEL UPP. #### [facility] [address] Glucose [Mass/volume] in Ser um or PlasmaOrdered By: Abel Perez on 04-15-2025 Glucose [Mass/Vol] 108 mg/dL High 70-100 [facility] Comment on above: ADA recommended refe rence rangeRandom Glucose Reference Range is dependent on time and content of last meal. Glucose of more than 200 mg/dL in a nonstressed, ambulatory subject supports the diagnosis of Diabetes Mellitus. Result Comment: [place] [facility] Glucose Reference Range is dependent on time and content of last meal. Glucose of more than 200 mg/dL in a nonstressed, ambulatory subject supports the diagnosis of Diabetes Mellitus. ADA recommended reference range Performed By: #### B IOFIRECOVDET, RESP PANEL UPP. #### [facility] [address] [place] [address] Hematocrit [Volume Fraction] of Blood by Automated countOrdered By: Abel Perez on 04-15-2025 Hematocrit (Bld) [Volume fraction] 47.5 % Normal 38.8-50.0 [facility] Comment on above: Performed By: #### B IOFIRECOVDET, RESP PANEL UPP. #### [facility] [address] [place] [address] Hemoglobin [Mass/volume] in BloodOrdered By: Abel Perez on 04-15-2025 Hemoglobin (Bld) [Mass/Vol] 15.6 g/dL Normal 13.0-17.0 [facility] Comment on above: Performed By: #### B IOFIRECOVDET, RESP PANEL UPP. #### [address] INR in Platelet poor plasma by [...] #### B IOFIRECOVDET, RESP PANEL UPP. #### [facility] [address] Leukocytes [#/volume] correc yamil for nucleated erythrocytes in Blood by Automated counOrdered By: Abel Perez on 04-15-2025 WBC corrected for nucl RBC Auto (Bld) [#/Vol] 9.7 10*3/uL 4.1-10.5 [facility] Leukocytes [#/volume] in Blo od by Automated countOrdered By: Abel Perez on 04-15-2025 WBC (Bld) [#/Vol] 9.7 10*3/uL Normal 4.1-10.5 [facility] Comment on above: Performed By: #### B IOFIRECOVDET, RESP PANEL UPP. #### [place] [address] [place] Lymphocytes [#/volume] in Bl ood by Automated countOrdered By: Abel Perez on 04-15-2025 Lymphocytes (Bld) [#/Vol] 0.8 10*3/uL Low 1.00-4.8 [facility] Comment on above: Performed By: #### B IOFIRECOVDET, RESP PANEL UPP. #### [place] [address] [place] Lymphocytes/100 leukocytes i n Blood by Automated countOrdered By: Abel Perez on 04-15-2025 Lymphocytes/100 WBC (Bld) 8.6 % Normal . [facility] Comment on above: Performed By: #### B IOFIRECOVDET, RESP PANEL UPP. #### [facility] [address] MCH [Entitic mass] by Automa yamil countOrdered By: Abel Perez on 04-15-2025 MCH (RBC) [Entitic mass] 26.2 pg Low 27.5-35.2 [facility] Comment on above: Performed By: #### B IOFIRECOVDET, RESP PANEL UPP. #### [facility] [address] MCHC Auto (RBC) [Mass/Vol]Or dered By: Abel Perez on 04-15-2025 MCHC (RBC) [Mass/Vol] 32.8 g/dL 32.5-35.6 [facility] MCV [Entitic volume] by Auto mated countOrdered By: Abel Perez on 04-15-2025 MCV (RBC) [Entitic vol] 79.8 fL Low 83.5-101 [facility] Comment on above: Performed By: #### B IOFIRECOVDET, RESP PANEL UPP. #### [address] Monocyte distribution width [Entitic volume] in Blood by AutomatedOrdered By: Abel Perez on 04-15-2025 Monocyte distribution width Auto (Bld) [Entitic vol] 16.49 % 0.00-20.00 [facility] Monocytes [#/volume] in Bloo d by Automated countOrdered By: Abel Perez on 04-15-2025 Monocytes (Bld) [#/Vol] 0.4 10*3/uL Normal 0.0-0.8 [facility] Comment on above: Performed By: #### B IOFIRECOVDET, RESP PANEL UPP. #### [place] [address] [place] Monocytes/100 leukocytes in Blood by Automated countOrdered By: Abel Perez on 04-15-2025 Monocytes/100 WBC (Bld) 4.4 % Normal . [facility] Comment on above: Performed By: #### B IOFIRECOVDET, RESP PANEL UPP. #### [place] [id number] [place] Neutrophils [#/volume] in Bl ood by Automated countOrdered By: Abel Perez on 04-15-2025 Neutrophils (Bld) [#/Vol] 8.3 10*3/uL High 1.8-7.7 [facility] Comment on above: Performed By: #### B IOFIRECOVDET, RESP PANEL UPP. #### [facility] [address] [place] [address] [place] Neutrophils/100 leukocytes i n Blood by Automated countOrdered By: Abel Perez on 04-15-2025 Neutrophils/100 WBC (Bld) 86.0 % Normal . [facility] Comment on above: Performed By: #### B IOFIRECOVDET, RESP PANEL UPP. #### [facility] [address] No Panel InformationOrdered By: Abel Perez [...] [facility] Arterial Blood pH 7.42 7.35-7.45 [facility] Blood Gas Critical Value See comment [facility] Comment on above: Critical Value bragg d on: 04/15/2025 at 15:13 Blood Gas Liter Flow 8 L/min [facility] Blood Gas Sample Site Left radial [facility] FiO2 60 % [facility] Oxygen Delivery Device Aerosol [facility] Creatinine Clearance (Chem 87.31 [facility] Nucleated erythrocytes [Pres ence] in Blood by Automated countOrdered By: Abel Perez on 04-15-2025 Nucleated RBC Auto Ql (Bld) 0.1 /100{WBC} 0-0.5 [facility] Partial Thromboplastin Timeo n 04-15-2025 aPTT Coag (Bld) [Time] 31.0 s Normal 25.1-36.5 [facility] Comment on above: Result Comment: A he matocrit value greater than 55% may lead to inaccurate results in coagulation testing. Patients having hematocrit values >55% require a special collection tube for coagulation studies. Please contact the laboratory at [phone] for redraw instructions. PERFORMED BY: [place] [address] PATHOLOGIST RISK CONTROL FIELD REPRESENTATIVE SHIVA RIVAS M.D. Performed By: #### B IOFIRECOVDET, RESP PANEL UPP. #### [place] [address] [place] Platelet mean volume [Entiti c volume] in Blood by Automated countOrdered By: Abel Perez on 04-15-2025 Platelet mean volume (Bld) [Entitic vol] 7.4 fL Normal 6.6-10.1 [facility] Comment on above: Performed By: #### B IOFIRECOVDET, RESP PANEL UPP. #### [facility] [address] [place] [address] [place] Platelets [#/volume] in Bloo d by Automated countOrdered By: Abel Perez on 04-15-2025 Platelets (Bld) [#/Vol] 214 10*3/uL Normal 150-450 [facility] Comment on above: Performed By: #### B IOFIRECOVDET, RESP PANEL UPP. #### [place] [address] [place] Potassium [Moles/volume] in Serum or PlasmaOrdered By: Abel Perez on 04-15-2025 Potassium [Moles/Vol] 3.9 mmol/L Normal 3.5-5.1 [facility] Comment on above: Performed By: #### B IOFIRECOVDET, RESP PANEL UPP. #### [place] [address] [place] Protein [Mass/volume] in Ser um or PlasmaOrdered By: Abel Perez on 04-15-2025 Protein [Mass/Vol] 7.1 g/dL Normal 6.4-8.9 [facility] Comment on above: Performed By: #### B IOFIRECOVDET, RESP PANEL UPP. #### [facility] [address] Prothrombin time (PT)Ordered By: Abel Perez on 04-15-2025 PT Coag (PPP) [Time] 10.3 s Normal 9.0-12.9 [facility] Comment on above: A hematocrit value g reater than 55% may lead to inaccurate results in coagulation testing. Patients having hematocrit values >55% require a special collection tube for coagulation studies. Please contact the laboratory at [phone] for redraw instructions. Result Comment: A he matocrit value greater than 55% may lead to inaccurate results in coagulation testing. Patients having hematocrit values >55% require a special collection tube for coagulation studies. Please contact the laboratory at [phone] for redraw instructions. Performed By: #### B IOFIRECOVDET, RESP PANEL UPP. #### [facility] [address] [place], [place] [id number] [facility] Respiratory (Upper) Panel, P [...] A H3 Blank Space -- PERFORMED BY: [place] [address] PATHOLOGIST RISK CONTROL FIELD REPRESENTATIVE SHIVA RIVAS M.D. Normal [facility] Comment on above: Performed [...] on 04-15-2025 Globulin (S) [Mass/Vol] 2.8 g/dL [facility] Comment on above: Performed By: #### B IOFIRECOVDET, RESP PANEL UPP. #### [facility] [address] [place] [address] Serum or plasma albumin/glob ulin mass ratioOrdered By: Abel Perez on 04-15-2025 Albumin/Globulin [Mass ratio] 1.5 {ratio} [facility] Comment on above: Performed By: #### B IOFIRECOVDET, RESP PANEL UPP. #### [facility] [address] [place] [address] Serum or plasma anion gap de terminationOrdered By: Abel Perez on 04-15-2025 Anion gap [Moles/Vol] 11.3 mmol/L Normal 6.0-15.0 [facility] Comment on above: Performed By: #### B IOFIRECOVDET, RESP PANEL UPP. #### [facility] [address] [place] [address] Sodium [Moles/volume] in Ser um or PlasmaOrdered By: Abel Perez on 04-15-2025 Sodium [Moles/Vol] 139 mmol/L Normal 136-145 [facility] Comment on above: Performed By: #### B IOFIRECOVDET, RESP PANEL UPP. #### [facility] [address] Troponin I High Sensitivityo n 04-15-2025 Troponin I High Sensitivity 7 Normal 0-20 [facility] Comment on above: Result Comment: The Troponin units of report have been changed to meet the Chest Pain Accreditation requirement, element EC5.M1l2. Troponin units are changed from pg/ml to ng/L. Also, the decimal is removed and results are in whole numbers. PERFORMED BY: [place] [address] PATHOLOGIST RISK CONTROL FIELD REPRESENTATIVE SHIVA RIVAS M.D. Performed By: #### B IOFIRECOVDET, RESP PANEL UPP. #### [facility] [address] Troponin I.cardiac [Mass/vol ume] in Serum [...] #### B IOFIRECOVDET, RESP PANEL UPP. #### [facility] [address] Urology Office/Clinic Noteon 04-15-2025 Urology Office/Clinic [...] with voice recognition artificial intelligence software, specifically [email or web address], [employer] and or [employer]. 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 Normal [facility] Comment on above: Result Comment: Elec tronically Signed By: BARRERA Nuñez APRN, Flora Torre\.br\Date and Time Signed: 04/15/25 14:15 EDT X-ray reportOrdered By: Tino Lan on 04-15-2025 Study report [facility] Main [place] [address] [place] [address] XRay Report Signed Patient: Ricardo Hylton MR#: [id number] : 1960 Acct:[id number] Age/Sex: 64 / M ADM Date: 5 Loc: ER Room: Type: [facility] ER Attending Dr: Copies to: Abel [...] XR chest 2V*on 04-15-2025 XR chest 2V* [facility] [place] [address] XRay Report Signed Patient: Ricardo Hylton MR#: [id number] 88 : 1960 Acct:[id number] Age/Sex: 64 / M ADM Date: 04/15/25 Loc: ER Room: Type: [facility] ER Attending Dr: Copies to: Abel [...] 1549 Signed By: 04/15/25 155 Normal [facility] aPTT in Platelet poor plasma by Coagulation assayOrdered By: Abel Perez on 04-15-2025 aPTT Coag (PPP) [Time] 31.0 s 25.1-36.5 [facility] Comment on above: A hematocrit value g reater than 55% may lead to inaccurate results in coagulation testing. Patients having hematocrit values >55% require a special collection tube for coagulation studies. Please contact the laboratory at [phone] for redraw instructions. MR prostate wo/w conon 04-12 MR prostate wo/w con [facility] Main [place] [address] [place] [address] MRI Report Signed Patient: Ricardo Hylton MR#: [id number] 88 : 1960 Acct:[id number] Age/Sex: 64 / M ADM Date: 04/11/25 Loc: MR Room: Type: [facility] Attending Dr: Joo Yip MD Copies to: [...] Jr. DAlex 04/12/2025 8:25 AM Dictation Location: [facility] Transcribed By: DOROTEO 04/12/25824 Dictated By: Gelacio Wagner Jr, DO 04/12/25818 Signed By: 04/12/25824 Normal [facility] Chuyita 03-26-2025 CNPN Telephone (PULMAV) -- RICARDO HYLTON ([id number]) 1960 M Date Time Provider Department 03/26/25 [facility] During your visit today, we recorded the [...] in [address] Mclean through Smartjog chat. Will be sure to monitor for [...] the 30 lab result draw. Deon Norris [facility] 03/27/2025 4:04 PM Signed The half-life [...] [facility] Primary Care Clinical Pharmacist Tee Farah [facility] Leslye Mclean MD 03/29/2025 11:16 AM Signed [...] MD 04/01/2025 11:00 AM Signed Addended by: LELSYE MCLEAN on: 04/01/2025 11:00 AM Modules accepted: Orders Allergies As of Date: 03/26/2025 Noted Allergy Reaction METFORMIN 03/25/2021 5 - Intolerance Comments: diarrhea Date Reviewed: 03/11/2025 Reviewed by: Leslye Mclean MD - Fully Assessed Reason for Visit: Patient Update [1234] Primary Visit Diagnosis:Pulmonary (more content not included)... Normal [facility] No Panel InformationOrdered By: Leslye Mclean on 03-26-2025 Theophylline Level 2.2 ug/mL Low 10.0-20.0 [facility] Comment on above: Reference ranges and high/low indicator flags are provided as general guidelines only. The treating physician must determine appropriate target levels/dosing based on the specific clinical situation. Theophylline SerPl-mCncon Theophylline [Mass/Vol] 2.2 ug/mL Low 10.0-20.0 [facility] Comment on above: Order Comment: Kike larry Type: BLOOD SPECIMEN Ordering Facility: [facility] Address: [address] [place] [address] Result Comment: Refe rence ranges and high/low indicator flags are provided as general guidelines only. The treating physician must determine appropriate target levels/dosing based on the specific clinical situation. Performed By: #### 4 049-3 #### [facility] CLIA [id number] [address] [place] [address] [place] Chuy[place] 03-24-2025 CNPN Telephone (PULMAV) -- RICARDO HYLTON ([id number]) 1960 M Date Time Provider Department 03/24/25 [facility] During your visit today, we recorded the [...] breath. Inhale over 5-15 minutes - Ipratropium [place] (ATROVENT) 21 mcg (0.03 %) nasal spray Use 2 sprays in the nose every 12 hours. 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] 02/16/2021 Chronic obstructive pulmonary [...] Status:Closed by LESLYE MCLEAN on 03/24/25 Normal [facility] Ambulatory Visit Summaryon 0 03-20-2025 Ambulatory [...] oral tablet) ipratropium nasal (ipratropium Nasal 0.03% [place]) lisinopril (lisinopril 5 mg Tab) metoprolol (metoprolol [...] Appointments Tuesday 2:30 PM EST With: Where: [place] [id number]- Tuesday 3:20 PM EST With: SARAH TRIVEDI CNP Where: [facility] [place] [address] [place] [address]- Tuesday2025 1:15 PM EDT With: Joo YIP MD Where: [facility] [address] [place] [address]- You Need to Schedule the Following Appointments Follow Up with Joo YIP MD, URL When: Where: [facility] [address] [place] [address]- Medications What How Much When Why Instructions [...] concerns Unchanged ipratropium nasal (ipratropium Nasal 0.03% [place]) Contact prescribing physician if questions or concerns Unchanged lisinopril (lisinopril 5 mg Tab) (more content not included)... [facility] 03-20-2025 [facility] Telephone (PULMAV) -- RICARDO HYLTON ([id number]) 1960 M Date Time Provider Department 03/20/25 [facility] During your visit today, we recorded the following information about you: Sola Hoskins LPN 03/20/2025 12:21 PM Signed CPAP order faxed to [facility] via [employer] Allergies As of Date: 03/20/2025 Noted Allergy Reaction METFORMIN 03/25/2021 5 - Intolerance Comments: diarrhea Date Reviewed: 03/11/2025 Reviewed by: Leslye Mclean MD - Fully Assessed Prescriptions as of 03/20/2025 - albuterol (PROVENTIL) 2.5 mg /3 mL (0.083 %) nebulizer solution Use 3 mL via nebulizer three times a day as needed for wheezing/shortness of breath. Inhale over 5-15 minutes - Ipratropium [place] (ATROVENT) 21 mcg (0.03 %) nasal spray Use 2 sprays in the nose every 12 hours. - hlqmu-3-fwwdmealqi inhibitor (Human) 1,000 mg in water for [...] 81 mg by mouth once daily. - treadalong MARTIN 2 SENSOR kit as directed. 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] 02/16/2021 Chronic obstructive pulmonary disease (HCC) [J4*01/17/2019 Essential hypertension [I10] 02/14/2019 RANCHO (obstructive sleep apnea) [G47.33] 03/25/2021 Depression [F32.A] 03/25/2021 GERD (gastroesophageal reflux disease) [K21.9] 03/25/2021 Diabetes (HCC) [E11.9] 03/25/2021 Bipolar 1 disorder (HCC) [F31.9] 03/25/2021 Letter Text Encounter Status:Closed by SOLA HOSKINS on 03/20/25 Normal [facility] Urology Office/Clinic Noteon 03-20-2025 Urology Office/Clinic [...] [facility] [address], [place] [address]- Additional Instructions: 1 yr with PSA F&T [...] Former smoker History of opioid abuse Hyperlipidemia [facility] (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 Normal [facility] Comment on above: Result Comment: Elec tronically Signed By: Joo YIP MD\.br\Date and Time Signed: 03/20/25 14:31 EDT\.br\Electronically Co-Signed By: Ellen Cowan.br\Date and Time Co-Signed: 03/20/25 14:30 EDT [place] 03-19-2025 NGOZIN Telephone (PULMAV) -- RICARDO HYLTON ([id number]) 1960 M Date Time Provider Department 03/19/25 LESLYE MCLEAN PULMAV During your visit today, we recorded the following information about you: Sola HoskinsTOÑO 03/19/2025 12:10 PM Signed Message Received: Yesterday Leslye Mclean MD P [facility] Pulm Nurse Pls fax note to patient's PCP thanks TAMMIE notes faced to Dr Cowart via [employer] Allergies As of Date: 03/19/2025 Noted Allergy Reaction METFORMIN 03/25/2021 5 - Intolerance Comments: diarrhea Date Reviewed: 03/11/2025 Reviewed by: Leslye Mclean MD - Fully Assessed Prescriptions as of 03/19/2025 - albuterol (PROVENTIL) 2.5 mg /3 mL (0.083 %) nebulizer solution Use 3 mL via nebulizer three times a day as needed for wheezing/shortness of breath. Inhale over 5-15 minutes - Ipratropium [place] (ATROVENT) 21 mcg (0.03 %) nasal spray Use 2 sprays in the nose every 12 hours. 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] 02/16/2021 Chronic obstructive pulmonary disease (HCC) [J4*01/17/2019 Essential hypertension [I10] 02/14/2019 RANCHO (obstructive sleep apnea) [G47.33] 03/25/2021 Depression [F32.A] 03/25/2021 GERD (gastroesophageal reflux disease) [K21.9] 03/25/2021 Diabetes (HCC) [E11.9] 03/25/2021 Bipolar 1 disorder (HCC) [F31.9] 03/25/2021 Letter Text Encounter Status:Closed by SOLA HOSKINS on 03/19/25 [facility] Orders Onlyon 03-19-2025 Orders Only [id number] Cadence Hlyton 1960 M Date Provider Department Center 03/19/2025 [id number], HISTORICAL [facility] Natasha Pelletier Family History Problem Relation Age of Onset Hypertension Mother Family Status - Relation Status [facility] Mother [facility] [facility] Telephone (PULMAV) -- RICARDO HYLTON ([id number]) 1960 M Date Time Provider Department 03/13/25 LESLYE MCLEAN PULLORNA During your visit today, we recorded the following information about you: Sola Hoskins LPN 03/13/2025 4:01 PM Signed Message Received: 2 days ago Leslye Mclean MD P Avw Pulm Nurse Pls get pulmonary records from Dr. Gonzalez from [place] also get PFT echo and ct chest thanks Faxed CARLOS ENRIQUE request from [facility] with confirmation Sola Hoskins LPN 03/14/2025 1:11 PM Signed Received pulmonary records from Dr. Gonzalez from [place]. Placed in Dr Washington folder for review Sola Hoskins LPN 03/19/2025 2:09 PM Signed Received additional pulmonary records from [facility]. Placed in Dr Washington folder for review [...] breath. Inhale over 5-15 minutes - Ipratropium [place] (ATROVENT) 21 mcg (0.03 %) nasal spray Use 2 sprays in the nose every 12 hours. 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] 02/16/2021 Chronic obstructive pulmonary disease (HCC) [J4*01/17/2019 Essential hypertension [I10] 02/14/2019 RANCHO (obstructive sleep apnea) [G47.33] 03/25/2021 Depression [F32.A] 03/25/2021 GERD (gastroesophageal reflux disease) [K21.9] 03/25/2021 Diabetes (HCC) [E11.9] 03/25/2021 Bipolar 1 disorder (HCC) [F31.9] 03/25/2021 Encounter Status:Closed by SOLA HOSKINS on 03/13/25 Normal [facility] EPDWZ-6-CFMRETRQCCZze 2024 Alpha 1 antitrypsin [Mass/Vol] 112 mg/dL 90 - 200 mg/dL [facility] Alpha 1 antitrypsin [Mass/Vo l]on 03-12-2025 Interpretation and review of laboratory results Normal [facility] CNPNon 03-12-2025 CNPN Refill (PULMAV) -- RICARDO HYLTON ([id number]) 1960 M Date Time Provider Department 03/12/25 [...] a script for CPAP and supplies to [facility] Fax not given Please advise Francisco Sosa [...] breath. Inhale over 5-15 minutes - Ipratropium [place] (ATROVENT) 21 mcg (0.03 %) nasal spray Use 2 sprays in the nose every 12 hours. - vfyzu-5-jbdhzichln inhibitor (Human) 1,000 mg in water for [...] 81 mg by mouth once daily. - NegoramaE 2 SENSOR kit as directed. 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] 02/16/2021 Chronic obstructive pulmonary disease (HCC) [J4*01/17/2019 Essential hypertension [I10] 02/14/2019 RANCHO (obstructive sleep apnea) [G47.33] 03/25/2021 Depression [F32.A] 03/25/2021 GERD (gastroesophageal reflux disease) [K21.9] 03/25/2021 Diabetes (HCC) [E11.9] 03/25/2021 Bipolar 1 disorder (HCC) [F31.9] 03/25/2021 Encounter Status:Closed by FRANCISCO SOSA on 03/12/25 [facility] 03-12-2025 ERV BOX (L) 1.59 L [facility] ERV PREDICTED (L) 1.34 L/S [facility] FRC Box (L) 5.23 L [facility] IC BOX (L) 2.01 L [facility] IC PREDICTED (L) 2.67 [facility] RV Box (L) 3.53 L [facility] RV Box PREDICTED (L) 2.30 L [facility] RV/TLC Box (%) 49 % [facility] RV/TLC Box PREDICTED (%) 33 % [facility] SVC LLN (L) 3.00 L/S [facility] SVC PREDICTED (L) 4.01 L/S [facility] nd [facility] SVC ULN (L) 5.04 L/S [facility] TLC Box (L) 7.27 L [facility] TLC Box PREDICTED (L) 6.92 L [facility] VC (L) BOX 3.76 L [facility] enter [address] [place] [address] Test Date: 2025-03-11 Pat Name: RICARDO HYLTON Department: Room: Gender: Male Ssis Etl Developer: : 1960 Requested By: Order Number: [id number] Reading MD: Tory Mukherjee MD Interpretive Statements 2 acceptable lung volumes reported. Patient has dyspnea, COPD and was tachypneic. 2 techs attempted. Best test reported despite difficult testing session. // IMPRESSION: Lung volumes (FRC and/or RV) are elevated indicating hyperinflation and air trapping. Electronically Signed On 03-12-2025 13:37:37 EDT by Tory Mukherjee MD ID: [id number] Name: RICARDO HYLTON Race: White Ht: 68.90 [...] difficult testing session. // PULMONARY FUNCTION LAB [facility] A1AT SerPl-mCncon 03-11-2025 Alpha 1 antitrypsin [Mass/Vol] 112 mg/dL Normal 90-200 [facility] Comment on above: Order Comment: Speci men Type: BLOOD SPECIMEN Ordering Facility: [facility] Address: [address] [place] [address] Performed By: #### 1 825-9 #### [facility] CLIA [id number] [address] [place] [address] [place] Basophils Auto (Bld) [...] (Bld)on 03-11-2025 Basophils (Bld) [#/Vol] 0.06 10*3/uL [facility] Basophils/100 WBC (Bld) 0.4 % [facility] Differential cell count method Nom (Bld) Auto [facility] Eosinophils (Bld) [#/Vol] [facility] Eosinophils/100 WBC (Bld) 0.1 % [facility] Erythrocyte distribution width (RBC) [Ratio] 17.0 % High 11.5 - 15.0 % [facility] Hematocrit (Bld) [Volume fraction] 52.5 % High 39.0 - 51.0 % [facility] Hemoglobin (Bld) [Mass/Vol] 16.6 g/dL 13.0 - 17.0 g/dL [facility] Immature granulocytes (Bld) [#/Vol] 0.06 10*3/uL [facility] Immature granulocytes/100 WBC (Bld) 0.4 % [facility] Interpretation and review of laboratory results Abnormal [facility] Lymphocytes (Bld) [#/Vol] 1.01 10*3/uL [facility] Lymphocytes/100 WBC (Bld) 7.5 % [facility] MCH (RBC) [Entitic mass] 26.0 pg 26.0 - 34.0 pg [facility] MCHC (RBC) [Mass/Vol] 31.6 g/dL 30.5 - 36.0 g/dL [facility] MCV (RBC) [Entitic vol] 82.2 fL 80.0 - 100.0 fL [facility] Monocytes (Bld) [#/Vol] 0.53 10*3/uL [facility] Monocytes/100 WBC (Bld) 3.9 % [facility] Neutrophils (Bld) [#/Vol] 11.88 10*3/uL High [facility] Neutrophils/100 WBC (Bld) 87.7 % [facility] Nucleated RBC (Bld) [#/Vol] 0.02 10*3/uL High [facility] Nucleated RBC/100 WBC (Bld) [Ratio] 0.1 % /100 WBC [facility] Platelet mean volume (Bld) [Entitic vol] 9.2 fL 9.0 - 12.7 fL [facility] Platelets (Bld) [#/Vol] 359 10*3/uL [facility] RBC (Bld) [#/Vol] 6.39 10*6/uL High 4.20 - 6.00 m/uL [facility] WBC (Bld) [#/Vol] 13.55 10*3/uL High [facility] Basophils (Bld) [#/Vol] 0.06 10*3/uL Normal <0.11 [facility] Comment on above: Order Comment: Speci men Type: BLOOD SPECIMEN Ordering Facility: [facility] Address: [address] [place] [address] Performed By: #### 5 7021-8 #### [facility] CLIA [id number] [address] [place] [address] [place] Basophils/100 WBC (Bld) 0.4 % Normal [facility] Comment on above: Order Comment: Speci men Type: BLOOD SPECIMEN Ordering Facility: [facility] Address: [address] [place] [address] Performed By: #### 5 7021-8 #### [facility] IA [id number] [address] [place] [address] [place] Differential cell count method Nom (Bld) Auto Normal [facility] Comment on above: Order Comment: Speci men Type: BLOOD SPECIMEN Ordering Facility: [facility] Address: [address] [place] [address] Performed By: #### 5 7021-8 #### [facility] IA [id number] [address] [place] [address] [place] Eosinophils (Bld) [#/Vol] 10*3/uL Normal <0.46 [facility] Comment on above: Order Comment: Speci men Type: BLOOD SPECIMEN Ordering Facility: [facility] Address: [address] [place] [address] Performed By: #### 5 7021-8 #### [facility] IA [id number] [facility] [place] [id number] [place] Eosinophils/100 WBC (Bld) 0.1 % Normal [facility] Comment on above: Order Comment: Speci men Type: BLOOD SPECIMEN Ordering Facility: [facility] Address: [address] [place] [address] Performed By: #### 5 7021-8 #### [facility] IA [id number] [address] [place] [address] [place] Erythrocyte distribution width (RBC) [Ratio] 17.0 % High 11.5-15.0 [facility] Comment on above: Order Comment: Speci men Type: BLOOD SPECIMEN Ordering Facility: [facility] Address: [facility] [place] [address] Performed By: #### 5 7021-8 #### [facility] CLIA [id number] [address] [place] [address] [place] Hematocrit (Bld) [Volume fraction] 52.5 % High 39.0-51.0 [facility] Comment on above: Order Comment: Speci men Type: BLOOD SPECIMEN Ordering Facility: [facility] Address: [address] [place] [address] Performed By: #### 5 7021-8 #### [facility] IA [id number] [address] [place] [address] [place] Hemoglobin (Bld) [Mass/Vol] 16.6 g/dL Normal 13.0-17.0 [facility] Comment on above: Order Comment: Speci men Type: BLOOD SPECIMEN Ordering Facility: [facility] Address: [address] [place] [address] Performed By: #### 5 7021-8 #### [facility] IA [id number] [place] Immature granulocytes (Bld) [#/Vol] 0.06 10*3/uL Normal <0.10 [facility] Comment on above: Order Comment: Speci men Type: BLOOD SPECIMEN Ordering Facility: [facility] Address: [address] [place] [address] Performed By: #### 5 7021-8 #### [facility] CLIA [id number] [place] Immature granulocytes/100 WBC (Bld) 0.4 % Normal [facility] Comment on above: Order Comment: Speci men Type: BLOOD SPECIMEN Ordering Facility: [facility] Address: [address] [place] [address] Performed By: #### 5 7021-8 #### [facility] CLIA [id number] [address] [place] [address] [place] Lymphocytes (Bld) [#/Vol] 1.01 10*3/uL Normal 1.00-4.00 [facility] Comment on above: Order Comment: Speci men Type: BLOOD SPECIMEN Ordering Facility: [facility] Address: [address] [place] [address] Performed By: #### 5 7021-8 #### [facility] CLIA [id number] [place] [address] [place] Lymphocytes/100 WBC (Bld) 7.5 % Normal [facility] Comment on above: Order Comment: Speci men Type: BLOOD SPECIMEN Ordering Facility: [facility] Address: [address] [place] [address] Performed By: #### 5 7021-8 #### [facility] IA [id number] [place] [address] [place] MCH (RBC) [Entitic mass] 26.0 pg Normal 26.0-34.0 [facility] Comment on above: Order Comment: Speci men Type: BLOOD SPECIMEN Ordering Facility: [facility] Address: [address] [place] [address] Performed By: #### 5 7021-8 #### [facility] IA [id number] [place] [address] [place] MCHC (RBC) [Mass/Vol] 31.6 g/dL Normal 30.5-36.0 [facility] Comment on above: Order Comment: Speci men Type: BLOOD SPECIMEN Ordering Facility: [facility] Address: [address] [place] [address] Performed By: #### 5 7021-8 #### [facility] IA [id number] [place] [address] [place] MCV (RBC) [Entitic vol] 82.2 fL Normal 80.0-100.0 [facility] Comment on above: Order Comment: Speci men Type: BLOOD SPECIMEN Ordering Facility: [facility] Address: [address] [place] [address] Performed By: #### 5 7021-8 #### [facility] CLIA [id number] [address] [place] [address] [place] Monocytes (Bld) [#/Vol] 0.53 10*3/uL Normal <0.87 [facility] Comment on above: Order Comment: Speci men Type: BLOOD SPECIMEN Ordering Facility: [facility] Address: [address] [place] [address] Performed By: #### 5 7021-8 #### [facility] CLIA [id number] [address] [place] [address] [place] Monocytes/100 WBC (Bld) 3.9 % Normal [facility] Comment on above: Order Comment: Speci men Type: BLOOD SPECIMEN Ordering Facility: [facility] Address: [address] [place] [address] Performed By: #### 5 7021-8 #### [facility] IA [id number] [address] [place] [address] [place] Neutrophils (Bld) [#/Vol] 11.88 10*3/uL High 1.45-7.50 [facility] Comment on above: Order Comment: Speci men Type: BLOOD SPECIMEN Ordering Facility: [facility] Address: [address] [place] [address] Performed By: #### 5 7021-8 #### [facility] IA [id number] [address] [place] [address] [place] Neutrophils/100 WBC (Bld) 87.7 % Normal [facility] Comment on above: Order Comment: Speci men Type: BLOOD SPECIMEN Ordering Facility: [facility] Address: [address] [place] [address] Performed By: #### 5 7021-8 #### [facility] IA [id number] [place] [address] [place] Nucleated RBC (Bld) [#/Vol] 0.02 10*3/uL High <0.01 [facility] Comment on above: Order Comment: Speci men Type: BLOOD SPECIMEN Ordering Facility: [facility] Address: [address] [place] [address] Performed By: #### 5 7021-8 #### [facility] IA [id number] [address] [place] [address] [place] Nucleated RBC/100 WBC (Bld) [Ratio] 0.1 /100 WBC Normal [facility] Comment on above: Order Comment: Speci men Type: BLOOD SPECIMEN Ordering Facility: [facility] Address: [address] [place] [address] Performed By: #### 5 7021-8 #### [facility] IA [id number] [address] [place] [address] [place] Platelet mean volume (Bld) [Entitic vol] 9.2 fL Normal 9.0-12.7 [facility] Comment on above: Order Comment: Speci men Type: BLOOD SPECIMEN Ordering Facility: [facility] Address: [address] [place] [address] Performed By: #### 5 7021-8 #### [facility] CLIA [id number] [address] [place] [address] [place] Platelets (Bld) [#/Vol] 359 10*3/uL Normal 150-400 [facility] Comment on above: Order Comment: Speci men Type: BLOOD SPECIMEN Ordering Facility: [facility] Address: [address] [place] [address] Performed By: #### 5 7021-8 #### [facility] CLIA [id number] [address] [place] [address] [place] RBC (Bld) [#/Vol] 6.39 10*6/uL High 4.20-6.00 [facility] Comment on above: Order Comment: Speci men Type: BLOOD SPECIMEN Ordering Facility: [facility] Address: [address] [place] [address] Performed By: #### 5 7021-8 #### [facility] CLIA [id number] [address] [place] [address] [place] WBC (Bld) [#/Vol] 13.55 10*3/uL High 3.70-11.00 [facility] Comment on above: Order Comment: Speci men Type: BLOOD SPECIMEN Ordering Facility: [facility] Address: [address], [place] [address] Performed By: #### 5 7021-8 #### [facility] CLIA [id number] [facility] [address] [place] [address] [facility] CNOVon 03-11-2025 CNOV Office Visit (PULMAV ) -- RICARDO HYLTON ([id number]) 1960 M Date Time Provider Department 03/11/25 [...] is accompanied by his . Recording using [employer] software for draft documentation of the visit was discussed with the patient/authorized outside sales account representative; all questions welcomed and answered. Patient/authorized outside sales account representative agreed to proceed HPI: Ricardo Hylton [...] He has a follow-up appointment with a street supervisor at the [facility]. He was evaluated for a lung transplant in 2020 but was deemed ineligible due to being in too good shape and weight issues. His lowest weight was 212 lbs, but he has since gained weight and is currently 235 lbs. He is on Ozempic for weight management. 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 [employer] REVIEW OF SYSTEMS GENERAL: No unintentional weight [...] and Negative PAST MEDICAL HISTORY Diagnosis Date Rmwhe-4-zjryxarfsgu deficiency (HCC) COPD (chronic obstructive pulmonary disease) (HCC) COVID-03 November 2024 - ADMITTED TO [facility] HTN (hypertension) RANCHO (obstructive sleep apnea) Respiratory failure (HCC) : History reviewed. No pertinent family history.: SOCIAL HISTORY[1] Allergies: ALLERGIES Allergen Reactions Metformin Intolerance diarrhea Current Medications: jhixc-9-enpbvcvtud inhibitor (Human) 1,000 mg in water for [...] tablet Ta (more content not included)... Normal [facility] Comprehensive metabolic 2000 panelon 03-11-2025 Albumin [Mass/Vol] 4.7 g/dL 3.9 - 4.9 g/dL [facility] ALP [Catalytic activity/Vol] 115 U/L High 38 - 113 U/L [facility] ALT [Catalytic activity/Vol] 12 U/L 10 - 54 U/L [facility] Anion gap [Moles/Vol] 18 mmol/L High 8 - 15 mmol/L [facility] AST [Catalytic activity/Vol] 10 U/L Low 14 - 40 U/L [facility] Bilirubin [Mass/Vol] 0.4 mg/dL 0.2 - 1 .3 mg/dL [facility] Calcium [Mass/Vol] 9.9 mg/dL 8.5 - 10. 2 mg/dL [facility] Chloride [Moles/Vol] 100 mmol/L 98 - 10 7 mmol/L [facility] CO2 [Moles/Vol] 22 mmol/L 22 - 30 mmol/L [facility] Creatinine [Mass/Vol] 0.85 mg/dL 0.73 - 1.22 mg/dL [facility] GFR/1.73 sq M.predicted among non-blacks MDRD (S/P/Bld) [Vol rate/Area] 96 mL/min/{1.73_m2} - PINF [facility] Comment on above: Estimated Glomerular Filtration Rate [...] 156 mg/dL High 74 - 99 mg/dL [facility] Comment on above: The [place] Diabete s Association (ADA) provides guidance for [...] Standards of Medical Care in Diabetes 2016, [place] Diabetes Association. Diabetes Care. 2016.39(Suppl 1). Interpretation and review of laboratory results Abnormal [facility] Potassium [Moles/Vol] 4.0 mmol/L 3.7 - 5.1 mmol/L [facility] Protein [Mass/Vol] 7.6 g/dL 6.3 - 8.0 g/dL [facility] Sodium [Moles/Vol] 140 mmol/L 136 - 144 mmol/L [facility] Urea nitrogen [Mass/Vol] 21 mg/dL 9 - 24 mg/dL [facility] Albumin [Mass/Vol] 4.7 g/dL Normal 3.9-4.9 [facility] Comment on above: Order Comment: Kike larry Type: BLOOD SPECIMEN Ordering Facility: [facility] Address: [address] [place] [address] [place] [address] Performed By: #### 2 4323-8 #### [facility] CLIA [id number] [address] [place] [address] [place] ALP [Catalytic activity/Vol] 115 U/L High 38-113 [facility] Comment on above: Order Comment: Speci men Type: BLOOD SPECIMEN Ordering Facility: [facility] Address: [address] [place] [address] Performed By: #### 2 4323-8 #### [facility] CLIA [id number] [address] [place] [address] [place] ALT [Catalytic activity/Vol] 12 U/L Normal 10-54 [facility] Comment on above: Order Comment: Speci men Type: BLOOD SPECIMEN Ordering Facility: [facility] Address: [address] [place] [address] Performed By: #### 2 4323-8 #### [facility] CLIA [id number] [address] [place] [address] [place] Anion gap [Moles/Vol] 18 mmol/L High 8-15 [facility] Comment on above: Order Comment: Speci men Type: BLOOD SPECIMEN Ordering Facility: [facility] Address: [address] [place] [address] Performed By: #### 2 4323-8 #### [facility] CLIA [id number] [address] [place] [address] [place] AST [Catalytic activity/Vol] 10 U/L Low 14-40 [facility] Comment on above: Order Comment: Speci men Type: BLOOD SPECIMEN Ordering Facility: [facility] Address: [address] [place] [address] Performed By: #### 2 4323-8 #### [facility] CLIA [id number] [address] [place] [address] [place] Bilirubin [Mass/Vol] 0.4 mg/dL Normal 0.2-1.3 [facility] Comment on above: Order Comment: Speci men Type: BLOOD SPECIMEN Ordering Facility: [facility] Address: [address] [place] [address] Performed By: #### 2 4323-8 #### [facility] CLIA [id number] [address] [place] [address] [place] Calcium [Mass/Vol] 9.9 mg/dL Normal 8.5-10.2 [facility] Comment on above: Order Comment: Speci men Type: BLOOD SPECIMEN Ordering Facility: [facility] Address: [address] [place] [address] Performed By: #### 2 4323-8 #### [facility] CLIA [id number] [place] [address] [place] Chloride [Moles/Vol] 100 mmol/L Normal 98-107 [facility] Comment on above: Order Comment: Speci men Type: BLOOD SPECIMEN Ordering Facility: [facility] Address: [address] [place] [address] Performed By: #### 2 4323-8 #### [facility] IA [id number] [address] [place] [address] [place] CO2 [Moles/Vol] 22 mmol/L Normal 22-30 [facility] Comment on above: Order Comment: Speci men Type: BLOOD SPECIMEN Ordering Facility: [facility] Address: [address] [place] [address] Performed By: #### 2 4323-8 #### [facility] IA [id number] [address] [place] [address] [place] Creatinine [Mass/Vol] 0.85 mg/dL Normal 0.73-1.22 [facility] Comment on above: Order Comment: Speci men Type: BLOOD SPECIMEN Ordering Facility: [facility] Address: [address] [place] [address] Performed By: #### 2 4323-8 #### [facility] IA [id number] [place], [place] [id number] [place] eGFRcr SerPlBld CKD-EPI 2020 96 mL/min/1.73m??? Normal >=60 [facility] Comment on above: Order Comment: Speci men Type: BLOOD SPECIMEN Ordering Facility: [facility] Address: [address] [place] [address] Result Comment: Alicia mated Glomerular Filtration Rate [...] GFR. Performed By: #### 2 4323-8 #### [facility] CLIA [id number] [address] [place] [address] [place] Glucose [Mass/Vol] 156 mg/dL High 74-99 [facility] Comment on above: Order Comment: Kike larry Type: BLOOD SPECIMEN Ordering Facility: [facility] Address: [address] [place] [address] Result Comment: The [place] Diabetes Association (ADA) provides guidance for cutoff [...] Standards of Medical Care in Diabetes 2016, [place] Diabetes Association. Diabetes Care. 2016.39(Suppl 1). Performed By: #### 2 4323-8 #### [facility] CLIA [id number] [address] [place] [address] [place] Potassium [Moles/Vol] 4.0 mmol/L Normal 3.7-5.1 [facility] Comment on above: Order Comment: Kike larry Type: BLOOD SPECIMEN Ordering Facility: [facility] Address: [address] [id number] Performed By: #### 2 4323-8 #### [facility] CLIA [id number] [address] [place] [address] [place] Protein [Mass/Vol] 7.6 g/dL Normal 6.3-8.0 [facility] Comment on above: Order Comment: Speci men Type: BLOOD SPECIMEN Ordering Facility: [facility] Address: [address] [place] [address] Performed By: #### 2 4323-8 #### [facility] CLIA [id number] [address] [place] [address] [place] Sodium [Moles/Vol] 140 mmol/L Normal 136-144 [facility] Comment on above: Order Comment: Speci men Type: BLOOD SPECIMEN Ordering Facility: [facility] Address: [address] [place] [address] Performed By: #### 2 4323-8 #### [facility] CLIA [id number] [address] [place] [address] [place] Urea nitrogen [Mass/Vol] 21 mg/dL Normal 9-24 [facility] Comment on above: Order Comment: Afsanehi men Type: BLOOD SPECIMEN Ordering Facility: [facility] Address: [address] [place] [address] Performed By: #### 2 4323-8 #### [facility] CLIA [id number] [address] [place] [address] [place] Eosinophils/100 WBC Auto [...] (TOMA O)on 03-11-2025 LUNG DIFFUSION CAPACITY (DLCO) [facility] [address] [place] [address] Test Date: 2025-03-11 Pat Name: RICARDO HYLTON Department: Room: Gender: Male Ssis Etl Developer: : 1960 Requested By: Order Number: [id number] Reading MD: Tory Mukherjee MD Interpretive Statements [...] 13:32:49 EDT by Tory Mukherjee MD ID: [id number] Name: RICARDO HYLTON Race: White Ht: 68.90 [...] 90-100 0.07 0 FIVC 3.40 3.54 4 PRY21-74 0.30 1.21 2.61 4.56 11 -3.39 0.32 [...] 78 % FEV1/FVC_LLN (%) : 65 % IFH57_LST (L/S) : 0.81 L/S UMQ82_PATT (L/S) : 0.98 L/S KDO64_PVI (L/S) : 0.15 L/S GUB07_SZIA (L/S) : 0.16 L/S GNR88_FTFV (L/S) : 0.75 L/S GPE17_AFM (L/S) : 0.29 L/S TTQ39_OCH (L/S) : 1.83 L/S AKF26-53%_PRE (L/S) : 0.30 L/S YMT24-87%_POST (L/S) : 0.32 L/S YGH61-99%_PRED (L/S) : 2.61 L/S HAJ87-78%_LLN (L/S) : 1.21 L/S PEF_PRE (L/S) : [...] ml/min/mmHg DLCO/VACOR (ML/MIN/MMHG/L) : 0.03 ml/min/mmHg/L Normal [facility] LUNG VOLUMESon 03-11-2025 LUNG VOLUMES [facility] [address] [facility] [place] [address] Test Date: 2025-03-11 Pat Name: RICARDO HYLTON Department: Room: Gender: Male Ssis Etl Developer: : 1960 Requested By: Order Number: [id number] Reading MD: Tory Mukherjee MD Interpretive Statements 2 acceptable lung volumes reported. Patient has dyspnea, COPD and was tachypneic. 2 techs attempted. Best test reported despite difficult testing session. //JH IMPRESSION: Lung volumes (FRC and/or RV) are elevated indicating hyperinflation and air trapping. Electronically Signed On 03-12-2025 13:37:37 EDT by Tory Mukherjee MD ID: [id number] Name: RICARDO HYLTON Race: White Ht: 68.90 [...] % RV_TLC_PLETH_PRED (%) : 33 % Normal [facility] - Chemistry and C hemistry - challengeOrdered By: Leslye Mclean on 03-11-2025 Albumin [Mass/Vol] 4.7 g/dL 3.9-4.9 [facility] ALP [Catalytic activity/Vol] 115 U/L High 38-113 [facility] ALT [Catalytic activity/Vol] 12 U/L 10-54 [facility] AST [Catalytic activity/Vol] 10 U/L Low 14-40 [facility] Bilirubin [Mass/Vol] 0.4 mg/dL 0.2-1.3 [facility] Calcium [Mass/Vol] 9.9 mg/dL 8.5-10.2 [facility] Chloride [Moles/Vol] 100 mmol/L 98-107 [facility] CO2 [Moles/Vol] 22 mmol/L 22-30 [facility] Creatinine [Mass/Vol] 0.85 mg/dL 0.73-1.22 [facility] Glucose [Mass/Vol] 156 mg/dL High 74-99 [facility] Comment on above: The [place] Diabete s Association (ADA) provides guidance for [...] Standards of Medical Care in Diabetes 2016, [place] Diabetes Association. Diabetes Care. 2016.39(Suppl 1). Potassium [Moles/Vol] 4.0 mmol/L 3.7-5.1 [facility] Sodium [Moles/Vol] 140 mmol/L 136-144 [facility] Urea nitrogen [Mass/Vol] 21 mg/dL 9-24 [facility] [...] 03-11-2025 MCHC (RBC) [Mass/Vol] 31.6 g/dL 30.5-36.0 [facility] MCV Auto (RBC) [Entitic vol] Ordered By: [...] 03-11-2025 Theophylline Level 30.0 ug/mL High 10.0-20.0 [facility] Comment on above: Reference ranges and high/low [...] on 03-11-2025 Protein [Mass/Vol] 7.6 g/dL 6.3-8.0 [facility] RBC Auto (Bld) [#/Vol]Ordere d By: Leslye Vinay on 03-11-2025 RBC (Bld) [#/Vol] 6.39 10*6/uL High 4.20-6.00 [facility] SPIROMETRY WITH DILATOR IF O BSTRUCTEDon 03-11-2025 SPIROMETRY WITH DILATOR IF OBSTRUCTED [facility] [address] [place] [address] Test Date: 2025-03-11 Pat Name: RICARDO HYLTON Department: Room: Gender: Male Ssis Etl Developer: : 1960 Requested By: Order Number: [id number] Reading MD: Tory Mukherjee MD Interpretive Statements [...] 13:32:49 EDT by Tory Mukherjee MD ID: [id number] Name: RICARDO HYLTON Race: White Ht: 68.90 [...] 90-100 0.07 0 FIVC 3.40 3.54 4 VOX01-46 0.30 1.21 2.61 4.56 11 -3.39 0.32 [...] 112/min, HR post = 114/min. //RK Normal [facility] Serum iwabc-5-peurzxcdlit me asurementOrdered By: Leslye Mclean on 03-11-2025 Alpha 1 antitrypsin [Mass/Vol] 112 mg/dL 90-200 [facility] Serum or plasma anion gap de terminationOrdered By: Leslye Mclean on 03-11-2025 Anion gap [Moles/Vol] 18 mmol/L High 8-15 [facility] THEOPHYLLINE/AMINOPHYLLINEon 03-11-2025 Theophylline [Mass/Vol] 30.0 ug/mL High 10.0 - 20.0 ug/mL [facility] Comment on above: Reference ranges and high/low indicator flags are provided as general guidelines only. The treating physician must determine appropriate target levels/dosing based on the specific clinical situation. Theophylline SerPl-mCncon Theophylline [Mass/Vol] 30.0 ug/mL High 10.0-20.0 [facility] Comment on above: Order Comment: Kike larry Type: BLOOD SPECIMEN Ordering Facility: [facility] Address: [address] [place] [address] Result Comment: Refe rence ranges and high/low indicator flags are provided as general guidelines only. The treating physician must determine appropriate target levels/dosing based on the specific clinical situation. Performed By: #### 4 049-3 #### [facility] CLIA [id number] [address] [place] [address] [place] Theophylline [Mass/Vol]on Interpretation and review of laboratory results Abnormal [facility] BMPon 02-20-2025 Anion gap [Moles/Vol] 14 mmol/L Normal 6-16 [facility] Comment on above: Performed By: #### 2 [id number] #### [facility] [address] [place] [address] BUN/Creat Ratio 20 No Units Normal 10-20 [facility] Comment on above: Performed By: #### 2 400254 #### [facility] [address] [place] [address] Calcium [Mass/Vol] 10.2 mg/dL Normal 8.9-11.1 [facility] Comment on above: Performed By: #### 2 329910 #### [facility] [address] [place] [address] Chloride [Moles/Vol] 104 mmol/L Normal 101-111 [facility] Comment on above: Performed By: #### 2 [id number] #### [facility] [address] [place] [address] CO2 [Moles/Vol] 24 mmol/L Normal 21-31 [facility] Comment on above: Performed By: #### 2 543955 #### [facility] [address] [place] [address] Creatinine [Mass/Vol] 1.0 mg/dL Normal 0.5-1.3 [facility] Comment on above: Performed By: #### 2 261012 #### [facility] [address] [place] [address] Glucose [Mass/Vol] 151 mg/dL Normal 55-199 [facility] Comment on above: Performed By: #### 2 452594 #### [facility] [address] [place] [address] Potassium [Moles/Vol] 4.4 mmol/L Normal 3.5-5.3 [facility] Comment on above: Performed By: #### 2 143037 #### [facility] [address] [place] [address] Sodium [Moles/Vol] 138 mmol/L Normal 135-145 [facility] Comment on above: Performed By: #### 2 157210 #### [facility] [address] [place] [address] Urea nitrogen [Mass/Vol] 20 mg/dL Normal 5-21 [facility] Comment on above: Performed By: #### 2 702631 #### [facility] [address] [place] [address] [id number] 02-20-2025 HbA1c (Bld) [Mass fraction] 7.3 % High <=5.9 [facility] Comment on above: Performed By: #### 7 [id number] #### [facility] [address] [place] [address] U MA/Cr Ratioon 02-20-2025 Microalb/Cr Ratio NOT CALCULATED Invalid Interpretation Code .0-30.0 [facility] Comment on above: Result Comment: 30-3 00 mg/g Cr indicates an increased risk for diabetic nephropathy. >300 mg/g Cr is consistent with clinical nephropathy. Performed By: #### 1 [id number] #### [facility] [address] [place] [address] U Creatinine 32.8 mg/dL Invalid Interpretation Code [facility] Comment on above: Performed By: #### 1 [id number] #### [facility] [address] [place] [address] U Microalb <0.7 Normal 0.0-1.9 [facility] Comment on above: Performed By: #### 1 [id number] #### [facility] [address] [place] [address] eGFRon 02-20-2025 eGFR 83 mL/min/1.73 m2 Normal >=59 [facility] Comment on above: Performed By: #### 1 [id number] #### [facility] [address] [place] [address] Ambulatory Visit Summaryon 0 02-19-2025 Ambulatory Visit Summary Ambulatory Visit Summary RICARDO HYLTON :1960 Visit Date:02/19/2025 Ambulatory Visit Instructions Your Diagnosis Type 2 diabetes mellitus with complication Emphysema/COPD Obesity (BMI 30-39.9) Obesity, Class II, BMI 35-39.9, no comorbidity Former smoker Your Care Team Attending Physician - SARAH TRIVEDI CNP Primary Care Physician - SARAH TRIVEDI CNP This Is Your Medications List [facility] Prescription (Glucose Kit) albuterol-ipratropium [...] Joo YIP MD Where: [facility] [address] [place] [address]- Tuesday 2:30 PM EST With: Where: [address] [address]- Tuesday 3:20 PM EST With: SARAH TRIVEDI CNP Where: [address] [address]- Medications What How Much When Why Instructions [...] 1 Tablets By Mouth Every day Unchanged [facility] Prescription (Glucose Kit) See [...] BY MOUTH EVERYDAY AT BEDTIME Pickup at [facility]/pharmacy #6177 Unchanged semaglutide (Ozempic 2 mg/ 3 [...] BY MOUTH TWICE A DAY Pharmacy Information [facility]/pharmacy #6177: [address] [place], [place] [id number] [phone] (more content not included)... Normal [facility] Ambulatory Visit Summary Ambulatory Visit Summary RICARDO HYLTON :1960 Visit Date:02/19/2025 Ambulatory Visit Instructions Your Diagnosis Type 2 diabetes mellitus with complication Emphysema/COPD Obesity (BMI 30-39.9) Obesity, Class II, BMI 35-39.9, no comorbidity Former smoker Your Care Team Attending Physician - SARAH TRIVEDI CNP Primary Care Physician - SARAH TRIVEDI CNP This Is Your Medications List [facility] Prescription (Glucose Kit) albuterol-ipratropium [...] GOSS, Joo Mendoza Where: [facility] [address] [place] [address]- Tuesday 2:30 PM EST With: Where: [address] [address]- Tuesday 3:20 PM EST With: SARAH TRIVEDI CNP Where: [address] [address]- Medications What How Much When Why Instructions [...] 1 Tablets By Mouth Every day Unchanged [facility] Prescription (Glucose Kit) See [...] BY MOUTH EVERYDAY AT BEDTIME Pickup at [facility]/pharmacy #8929 Unchanged semaglutide (Ozempic 2 mg/ 3 mL [...] DAY Pharmacy Information [facility]acy #6177: [address] [place], [place] [id number] [phone] (more content not included)... Normal [facility] Family Medicine Office/Clini c Noteon 02-19-2025 [...] Basic Metabolic Panel HgbA1c Lab Specimen Collect [address] Urine Microalbumin/Creatinine Ratio 2. Emphysema/COPD (J43.9: Emphysema, [...] scarlett, Topical, TID, 15 gram, Refill(s) 0, [facility]/pharmacy #6177, 177, cm, 02/19/25 15:09:00 EDT, Height/Length Dosing, 109.7, kg, 02/19/25 15:09:00 EDT, Weight Dosing 6. Rhinitis (J31.0: Chronic rhinitis) Ordered: hydrOXYzine, 25 mg = 1 tab(s), Oral, QID, PRN for itching, # 40 tab(s), Refills(s) 0, Pharmacy: [facility]/pharmacy #6177, 177, cm, 02/19/25 15:09:00 EDT, Height/Length Dosing, 109.7, kg, 02/19/25 15:09:00 EDT, Weight Dosing Orders: pravastatin, See Instructions, TAKE 1 TABLET BY MOUTH EVERYDAY AT BEDTIME, # 90 tab(s), Refills(s) 1, Pharmacy: [facility]/pharmacy #6177, 177, cm, 02/19/25 15:09:00 EDT, Height/Length Dosing, 109.7, kg, 02/19/25 15:09:00 EDT, Weight Dosing Follow-up No qualifying data available Patient Education Skin Yeast Infection Problem List/Past Medical History Ongoing Anxiety BPH with obstruction/lower urinary tract symptoms Chronic hypoxic respiratory failure Emphysema/COPD Former smoker History of opioid abuse Hyperlipidemia [facility] (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 Normal [facility] Comment on above: Result Comment: Elec tronically Signed By: SARAH TRIVEDI CNP\.br\Date and Time Signed: 02/19/25 16:37 EDT 36on 02-11-2025 36 LM for patient abhijeet antony him know Dr. Devlin did not want to start him on anticoagulation at this time, and he would prefer he wait and discuss this with Dr. Cook at his upcoming apt on 03/05. Normal [facility] 36 Regarding new onset afib on [...] pay for gas to drive here from [place] until 02/15. I have nothing available again with anyone until with Dr. Cook. Can you start him on something to get him to that apt by chance? Thanks. Normal [facility] Office Visiton 01-24-2025 Follow-up visit [id number] Cadence Hylton Marek 1960 M Date Provider Department Center 01/24/2025 271-CHRISTOSTAMAGALI, YONATHANAB CARD [facility] Family History Problem Relation Age of Onset Hypertension Mother Family Status - Relation Status Age at Mother Level of Service:86643 [place] OFFICE/OUTPATIENT NEW MODERATE MDM 45 MINUTES [facility] Orders Onlyon 01-23-2025 Orders Only [id number] Cadence Hylton 1960 M Date Provider Department Center 01/23/2025 [id number], HISTORICAL CARD [facility] Family History Problem Relation Age of Onset Hypertension Mother Family Status - Relation Status Age at Mother [facility] Ambulatory Visit Summaryon 0 11-28-2024 [...] PM EDT With: SARAH TRIVEDI CNP Where: [address] [address]- Tuesday 1:00 PM EDT With: Where: [address] [address]- Tuesday 11:00 AM EDT With: Where: [facility] [place] [facility] [address] [place] [address]- Tuesday 11:15 AM EDT With: Joo YIP MD Where: [facility] [address] [place] [address]- You Need to Schedule the Following Appointments Follow Up with Joo YIP MD, URL When: Where: [facility] [address], [place] [address]- Medications What How Much When Why Instructions New doxycycline (doxycycline hyclate 100 mg Cap) 1 Capsules By Mouth 2 times a day Duration: 21 Days Pickup at [facility]/pharmacy #0864 Unchanged albuterol-ipratropium (Combivent Respimat 20 mcg-100 mcg) [...] concerns U (more content not included)... Normal [facility] .Interpretation:on 5 HCV Ab IA Ql Comment Invalid Interpretation Code [facility] Comment on above: Result Comment: Not infected with HCV unless early or acute infection is suspected (which may be delayed in an immunocompromised individual), or other evidence exists to indicate HCV infection. Performed at: [facility] [address] [place], [place] [id number] PhD Antelmo Cornejo Performed By: #### 2 [id number] #### [facility] [address] [place] [address] HCV Antibody RFX to Quant PC Georges 10-28-2024 HCV Ab IA Ql Non-Reactive Invalid Interpretation Code Non Reactive [facility] Comment on above: Result Comment: Perf ormed at: [facility] [address] [place], [place] [id number] PhD Antelmo Cornejo Performed By: #### 2 [id number] #### [facility] [address] [place] [address] WkbX2hhd 10-26-2024 HbA1c (Bld) [Mass fraction] 7.9 % High <=5.9 [facility] Comment on above: Performed By: #### 7 [id number] #### [facility] [address] [place] [address] PSA Totalon 10-26-2024 Prostate specific Ag [Mass/Vol] 5.0 ng/mL High 0.1-3.5 [facility] Comment on above: Result Comment: The concentration of PSA determined by different manufacturers can vary due to differences in assay methods and reagent specificity. Values obtained from different assay methods cannot be used interchangeably. The methodology used for this result was chemiluminescence using [employer]s Access Hybritech PSA reagent. Performed By: #### 1 [id number] #### [facility] [address] [place] [address] Family Medicine Office/Clini c Noteon 10-25-2024 Family Medicine Office/Clinic Note Family Medicine Office/Clinic Note Chief Complaint Difficulty breathing due to known lung disease; concern for blood glucose management. HPI Staff Ricardo is a 63 year old male presenting with [facility] Hospital: [facility] Admission date: 10/04/24 Discharge date: 10/05/24 Symptoms [...] 2 diabetes mellitus with unspecified complications) Ordered: [facility] Prescription, Glucose Kit, See Instructions, 1 EA, 0, Glucose meter. Include autolet, matching test strips, lancets, & alcohol wipes, #100 or as allowed by insurance; DX: E11.9, [facility]/pharmacy #6177, Supply, 177, cm, 10/25/24 14:03:00 [...] qAM, # 90 tab(s), Refills(s) 1, Pharmacy: [facility]/pharmacy #6177, 177, cm, 10/25/24 14:03:00 EDT, Height/Length Dosing, 109.4, kg, 10/25/24 14:03:00 EDT, Weight Dosing glipiZIDE, See Instructions, TAKE 1 TABLET BY MOUTH TWICE A DAY, # 60 tab(s), Refills(s) 5, Pharmacy: [facility]/pharmacy #6177, 177, cm, 10/25/24 14:03:00 EDT, Height/Length Dosing, 109.4, kg, 10/25/24 14:03:00 EDT, Weight Dosing Follow-up With When Contact Information SARAH TRIVEDI CNP, FAM Within 3 months [address] [place] [address] [facility] (1) Additional Instructions: Diabetes Patient Education Diabetes Mellitus and Exercise Problem List/Past Medical History Ongoing Anxiety Chronic hypoxic respiratory failure Emphysema/COPD History of opioid abuse Hyperlipidemia [facility] (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 Include autolet, matching test strips, lancets, & alcohol wipes, #100 or as allowed by insurance; DX: E11.9, [facility]/pharmacy #6177, Supply, 177, cm, 10/25/24 14:03:00 [...] qAM, # 90 tab(s), Refills(s) 1, Pharmacy: [facility]/pharmacy #6177, 177, cm, 10/25/24 14:03:00 EDT, Height/Length Dosing, 109.4, kg, 10/25/24 14:03:00 EDT, Weight Dosing glipiZIDE, See Instructions, TAKE 1 TABLET BY MOUTH TWICE A DAY, # 60 tab(s), Refills(s) 5, Pharmacy: [facility]/pharmacy #6177, 177, cm, 10/25/24 14:03:00 EDT, Height/Length Dosing, 109.4, kg, 10/25/24 14:03:00 EDT, Weight Dosing Follow-up No qualifying data available Patient Education Diabetes Mellitus and Exercise Problem List/Past Medical History Ongoing Anxiety Paper Inspector (more content not included)... Normal [facility] Comment on above: Result Comment: Elec [...] feel free to contact me at extension [phone]. Thank you! Xochilt Mehta LPN Clinical Lift Builder [address] [address] Extension: [phone] [email or web address] From: SARAH TRIVEDI CNP To: Xochlit Mehta; Sent: 10/25/2024 15:41:25 EDT Subject: RE: Pre-Visit Planning Caller Name: RICARDO HYLTON; Caller Number: Jose , M Major depressive disorder, recurrent, in partial remission- Please update the chart to reflect this diagnosis Normal [facility] Pre-Visit Planningon 025 Pre-Visit Planning Pre-Visit Planning From: Xochilt Mehta To: SARAH TRIVEDI CNP; Sent: 10/10/2024 08:04:54 EDT Subject: Pre-Visit Planning Due Date/Time: 10/10/2024 08:04:00 EDT Caller Name: RICARDO HYLTON; Caller Number: Jose , M [facility] Sarah. During a pre-visit planning chart review, [...] feel free to contact me at extension [phone]. Thank you! Xochilt Mehta LPN Clinical Lift Builder [address] [place] [address] Extension: [phone] [email or web address] From: SARAH TRIVEDI CNP To: Xochilt Mehta; Sent: 10/11/2024 14:27:33 EDT Subject: RE: Pre-Visit Planning Caller Name: RICARDO HYLTON; Caller Number: Jose , M Patient was a no-show for his appointment today. Normal [facility] Provider Letteron 10-09-2024 Provider Letter Provider Letter October 09, 2024 RICARDO HYLTON [facility] [address] [address] RICARDO HYLTON 1960 Dear Ricardo Hylton, We have been trying to reach you with no success. It is important that you return our call regarding your hospital discharge upon receiving this letter. Also, at the time of your call, please provide us with your current information. Thank you for your prompt attention to this matter. Sincerely, Mary Silva, RN/Marketing Support Coordinator [facility] option 2 Normal [facility] Alanine aminotransferase [En zymatic activity/volume] in [...] Basophils (Bld) [#/Vol] Automated basophil count 0.0-0.2 [facility] Basophils/100 WBC Auto (Bld) Ordered By: Clifton [...] (Bld) [#/Vol] 0.1 10*3/uL Normal 0.0-0.2 [facility] Comment on above: Result Comment: PERF ORMED BY: [address] [place] [address] PATHOLOGIST RISK CONTROL FIELD REPRESENTATIVE NARESH VERA M.D. Performed By: #### C BC #### [facility] [address] [place] [address] [place] Basophils/100 WBC (Bld) 0.4 % Normal . [facility] Comment on above: Performed By: #### C BC #### [facility] [address] [place] [address] [place] Eosinophils (Bld) [#/Vol] 0.0 10*3/uL Normal 0.0-0.45 [facility] Comment on above: Performed By: #### C BC #### [place] [address] [place] Eosinophils/100 WBC (Bld) 0.1 % Normal . [facility] Comment on above: Performed By: #### C BC #### [address] Erythrocyte distribution width (RBC) [Ratio] 24.7 % High 12.0-14.8 [facility] Comment on above: Performed By: #### C BC #### [address] Hematocrit (Bld) [Volume fraction] 44.8 % Normal 38.8-50.0 [facility] Comment on above: Performed By: #### C BC #### [address] Hemoglobin (Bld) [Mass/Vol] 14.7 g/dL Normal 13.0-17.0 [facility] Comment on above: Performed By: #### C BC #### [address] Lymphocytes (Bld) [#/Vol] 1.3 10*3/uL Normal 1.00-4.8 [facility] Comment on above: Performed By: #### C BC #### [place] [address] [place] Lymphocytes/100 WBC (Bld) 9.3 % Normal . [facility] Comment on above: Performed By: #### C BC #### [address] MCH (RBC) [Entitic mass] 24.7 pg Low 27.5-35.2 [facility] Comment on above: Performed By: #### C BC #### [address] MCV (RBC) [Entitic vol] 75.2 fL Low 83.5-101 [facility] Comment on above: Performed By: #### C BC #### [address] Mean Corpuscular HGB Conc 32.9 g/dL Normal 32.5-35.6 [facility] Comment on above: Performed By: #### C BC #### [address] Monocytes (Bld) [#/Vol] 1.3 10*3/uL High 0.0-0.8 [facility] Comment on above: Performed By: #### C BC #### [address] Monocytes/100 WBC (Bld) 9.1 % Normal . [facility] Comment on above: Performed By: #### C BC #### [address] Neutrophils (Bld) [#/Vol] 11.5 10*3/uL High 1.8-7.7 [facility] Comment on above: Performed By: #### C BC #### [address] Neutrophils/100 WBC (Bld) 81.1 % Normal . [facility] Comment on above: Performed By: #### C BC #### [address] NRBC% 0.0 /100{WBC} Normal 0-0.5 [facility] Comment on above: Performed By: #### C BC #### [address] Platelet mean volume (Bld) [Entitic vol] 8.6 fL Normal 6.6-10.1 [facility] Comment on above: Performed By: #### C BC #### [address] Platelets (Bld) [#/Vol] 350 10*3/uL Normal 150-450 [facility] Comment on above: Performed By: #### C BC #### [address] RBC (Bld) [#/Vol] 5.95 10*6/uL High 3.90-5.60 [facility] Comment on above: Performed By: #### C BC #### [address] WBC (Bld) [#/Vol] 14.2 10*3/uL High 4.1-10.5 [facility] Comment on above: Performed By: #### C BC #### [address] Comprehensive Metabolic Pane serene 10-05-2024 Albumin [Mass/Vol] 4.0 g/dL Normal 3.5-5.7 [facility] Comment on above: Performed By: #### C BC, CMP, MG #### [address] Albumin/Globulin [Mass ratio] 1.4 {ratio} Normal [facility] Comment on above: Performed By: #### C BC, CMP, MG #### [address] ALP [Catalytic activity/Vol] 83 U/L Normal 34-104 [facility] Comment on above: Performed By: #### C BC, CMP, MG #### [address] ALT [Catalytic activity/Vol] 10 U/L Normal 7-52 [facility] Comment on above: Performed By: #### C BC, CMP, MG #### [address] Anion gap [Moles/Vol] 15.2 mmol/L High 6.0-15.0 [facility] Comment on above: Performed By: #### C BC, CMP, MG #### [address] AST [Catalytic activity/Vol] 9 U/L Low 13-39 [facility] Comment on above: Performed By: #### C BC, CMP, MG #### [address] Bilirubin [Mass/Vol] 0.3 mg/dL Normal 0.3-1.0 [facility] Comment on above: Performed By: #### C BC, CMP, MG #### [address] Calcium [Mass/Vol] 9.0 mg/dL Normal 8.6-10.3 [facility] Comment on above: Performed By: #### C BC, CMP, MG #### [address] Chloride [Moles/Vol] 100 mmol/L Normal 98-107 [facility] Comment on above: Performed By: #### C BC, CMP, MG #### [address] CO2 [Moles/Vol] 28.2 mmol/L Normal 21.0-31.0 [facility] Comment on above: Performed By: #### C BC, CMP, MG #### [address] Creatinine [Mass/Vol] 1.18 mg/dL Normal 0.70-1.30 [facility] Comment on above: Performed By: #### C BC, CMP, MG #### [address] Creatinine Clr Calc Pharmacy 76.09 Normal [facility] Comment on above: Result Comment: PERF ORMED BY: [place] [address] PATHOLOGIST RISK CONTROL FIELD REPRESENTATIVE NARESH VERA M.D. Performed By: #### C BC, CMP, MG #### [address] GFR/1.73 sq M.predicted MDRD (S/P/Bld) [Vol rate/Area] mL/min/{1.73_m2} Normal [facility] Comment on above: Performed By: #### C BC, CMP, MG #### [place] [address] [place] Globulin (S) [Mass/Vol] 2.8 g/dL Normal [facility] Comment on above: Performed By: #### C BC, CMP, MG #### [address] Glucose [Mass/Vol] 157 mg/dL High 70-100 [facility] Comment on above: Result Comment: [facility] Glucose Reference Range is dependent on time and content of last meal. Glucose of more than 200 mg/dL in a nonstressed, ambulatory subject supports the diagnosis of Diabetes Mellitus. ADA recommended reference range Performed By: #### C BC, CMP, MG #### [facility] [address] Potassium [Moles/Vol] 4.4 mmol/L Normal 3.5-5.1 [facility] Comment on above: Performed By: #### C BC, CMP, MG #### [facility] [address] Protein [Mass/Vol] 6.8 g/dL Normal 6.4-8.9 [facility] Comment on above: Performed By: #### C BC, CMP, MG #### [facility] [address] Sodium [Moles/Vol] 139 mmol/L Normal 136-145 [facility] Comment on above: Performed By: #### C BC, CMP, MG #### [facility] [address] [place] [address] [place] Urea nitrogen [Mass/Vol] 31 mg/dL High 7-25 [facility] Comment on above: Performed By: #### C BC, CMP, MG #### [facility] [address] [place] [address] [place] Creatinine [Mass/volume] in Serum or PlasmaOrdered By: Clifton Calderon on 10-05-2024 Creatinine [Mass/Vol] Creatinine [Mass/v olume] in Serum or Plasma 0.70-1.30 [facility] Eosinophils Auto (Bld) [#/Vo l]Ordered By: Clifton Beltread on 10-05-2024 Eosinophils (Bld) [#/Vol] Automated eosinophil count 0.0-0.45 [facility] Eosinophils/100 WBC Auto (Bl d)Ordered [...] 10-05-2024 Glucose [Mass/Vol] 321 mg/dL Normal [facility] Comment on above: Result Comment: [facility] Glucose Reference Range is dependent on time and content of last meal. Glucose of more than 200 mg/dL in a nonstressed, ambulatory subject supports the diagnosis of Diabetes Mellitus. PERFORMED BY: [facility] [address] [facility] [place] [address] PATHOLOGIST RISK CONTROL FIELD REPRESENTATIVE NARESH VERA M.D. Performed By: #### G LULS #### Point of Care testing , Glucose [Mass/Vol] 178 mg/dL Normal [facility] Comment on above: Result Comment: [facility] Glucose Reference Range is dependent on time and content of last meal. Glucose of more than 200 mg/dL in a nonstressed, ambulatory subject supports the diagnosis of Diabetes Mellitus. PERFORMED BY: [facility] [address] [place] [address] PATHOLOGIST RISK CONTROL FIELD REPRESENTATIVE NARESH VERA M.D. Performed By: #### G [...] (Bld) [Mass/Vol] 32.0 pg/mL Normal 5-100 [facility] Comment on above: Result Comment: PERF ORMED BY: [address] [place] [address] PATHOLOGIST RISK CONTROL FIELD REPRESENTATIVE NARESH VERA M.D. Performed By: #### C BC, CMP, MG #### [address] Basophils Auto (Bld) [#/Vol] Ordered By: Pranay Bai on 10-04-2024 Basophils (Bld) [#/Vol] Automated basophil count 0.0-0.2 [facility] Basophils/100 WBC Auto (Bld) Ordered By: Pranay Bai on 10-04-2024 Basophils/100 WBC (Bld) Automated basophil % . [facility] Bilirubin.total [Mass/volume ] in Serum or PlasmaOrdered By: Pranay Bai on 10-04-2024 Bilirubin [Mass/Vol] Bilirubin.total [Mass/volume] in Serum or Plasma 0.3-1.0 [facility] BioFire Detectedon BioFire Detected Detected Critically abnormal Not Detecte [facility] Comment on above: Result Comment: This is a duplicate RP2.1 COVID (PCR) result to be used for statistical tracking purpose only. PERFORMED BY: [facility] [address] [place] [address] PATHOLOGIST RISK CONTROL FIELD REPRESENTATIVE NARESH VERA M.D. Performed By: #### B CALISTA, RESP PANEL UPP. #### [place] [address] [place] COVID-19 Detected/Not Detect edOrdered By: Clifton [...] (Bld) [#/Vol] 0.0 10*3/uL Normal 0.0-0.2 [facility] Comment on above: Result Comment: PERF ORMED BY: [facility] [address] [place] [address] PATHOLOGIST RISK CONTROL FIELD REPRESENTATIVE NARESH VERA M.D. Performed By: #### C BC, CMP, MG #### [address] Basophils/100 WBC (Bld) 0.5 % Normal . [facility] Comment on above: Performed By: #### C BC, CMP, MG #### [place] [address] Eosinophils (Bld) [#/Vol] 0.0 10*3/uL Normal 0.0-0.45 [facility] Comment on above: Performed By: #### C BC, CMP, MG #### [address] Eosinophils/100 WBC (Bld) 0.2 % Normal . [facility] Comment on above: Performed By: #### C BC, CMP, MG #### [address] Erythrocyte distribution width (RBC) [Ratio] 24.9 % High 12.0-14.8 [facility] Comment on above: Performed By: #### C BC, CMP, MG #### [address] Hematocrit (Bld) [Volume fraction] 48.8 % Normal 38.8-50.0 [facility] Comment on above: Performed By: #### C BC, CMP, MG #### [address] Hemoglobin (Bld) [Mass/Vol] 16.0 g/dL Normal 13.0-17.0 [facility] Comment on above: Performed By: #### C BC, CMP, MG #### [address] Lymphocytes (Bld) [#/Vol] 0.6 10*3/uL Low 1.00-4.8 [facility] Comment on above: Performed By: #### C BC, CMP, MG #### [address] Lymphocytes/100 WBC (Bld) 7.2 % Normal . [facility] Comment on above: Performed By: #### C BC, CMP, MG #### [address] MCH (RBC) [Entitic mass] 25.0 pg Low 27.5-35.2 [facility] Comment on above: Performed By: #### C BC, CMP, MG #### [address] MCV (RBC) [Entitic vol] 76.3 fL Low 83.5-101 [facility] Comment on above: Performed By: #### C BC, CMP, MG #### [address] Mean Corpuscular HGB Conc 32.8 g/dL Normal 32.5-35.6 [facility] Comment on above: Performed By: #### C BC, CMP, MG #### [facility] [address] Monocytes (Bld) [#/Vol] 0.3 10*3/uL Normal 0.0-0.8 [facility] Comment on above: Performed By: #### C BC, CMP, MG #### [address] Monocytes/100 WBC (Bld) 3.4 % Normal . [facility] Comment on above: Performed By: #### C BC, CMP, MG #### [place] [address] [place] Neutrophils (Bld) [#/Vol] 7.3 10*3/uL Normal 1.8-7.7 [facility] Comment on above: Performed By: #### C BC, CMP, MG #### [place] [address] [place] Neutrophils/100 WBC (Bld) 88.7 % Normal . [facility] Comment on above: Performed By: #### C BC, CMP, MG #### [address] NRBC% 0.2 /100{WBC} Normal 0-0.5 [facility] Comment on above: Performed By: #### C BC, CMP, MG #### [address] Platelet mean volume (Bld) [Entitic vol] 8.2 fL Normal 6.6-10.1 [facility] Comment on above: Performed By: #### C BC, CMP, MG #### [address] Platelets (Bld) [#/Vol] 272 10*3/uL Normal 150-450 [facility] Comment on above: Performed By: #### C BC, CMP, MG #### [address] RBC (Bld) [#/Vol] 6.39 10*6/uL High 3.90-5.60 [facility] Comment on above: Performed By: #### C BC, CMP, MG #### [address] WBC (Bld) [#/Vol] 8.2 10*3/uL Normal 4.1-10.5 [facility] Comment on above: Performed By: #### C BC, CMP, MG #### [address] Comprehensive Metabolic Pane serene 10-04-2024 Albumin [Mass/Vol] 4.3 g/dL Normal 3.5-5.7 [facility] Comment on above: Performed By: #### C BC, CMP, MG #### [address] Albumin/Globulin [Mass ratio] 1.5 {ratio} Normal [facility] Comment on above: Performed By: #### C BC, CMP, MG #### [address] ALP [Catalytic activity/Vol] 97 U/L Normal 34-104 [facility] Comment on above: Performed By: #### C BC, CMP, MG #### [address] ALT [Catalytic activity/Vol] 12 U/L Normal 7-52 [facility] Comment on above: Performed By: #### C BC, CMP, MG #### [address] Anion gap [Moles/Vol] 19.3 mmol/L High 6.0-15.0 [facility] Comment on above: Performed By: #### C BC, CMP, MG #### [facility] [address] [place] [address] [place] AST [Catalytic activity/Vol] 12 U/L Low 13-39 [facility] Comment on above: Performed By: #### C BC, CMP, MG #### [facility] [address] [place] [id number] [place] Bilirubin [Mass/Vol] 0.4 mg/dL Normal 0.3-1.0 [facility] Comment on above: Performed By: #### C BC, CMP, MG #### [facility] [address] [place] [address] [place] Calcium [Mass/Vol] 8.8 mg/dL Normal 8.6-10.3 [facility] Comment on above: Performed By: #### C BC, CMP, MG #### [facility] [address] [place] [address] [place] Chloride [Moles/Vol] 102 mmol/L Normal 98-107 [facility] Comment on above: Performed By: #### C BC, CMP, MG #### [facility] [address] [place] [address] [place] CO2 [Moles/Vol] 22.4 mmol/L Normal 21.0-31.0 [facility] Comment on above: Performed By: #### C BC, CMP, MG #### [facility] [address] [place] [address] [place] Creatinine [Mass/Vol] 1.10 mg/dL Normal 0.70-1.30 [facility] Comment on above: Performed By: #### C BC, CMP, MG #### [facility] [address] [place] [id number] [place] Creatinine Clr Calc Pharmacy 82.74 Normal [facility] Comment on above: Performed By: #### C BC, CMP, MG #### [facility] [address] [place] [address] [place] GFR/1.73 sq M.predicted MDRD (S/P/Bld) [Vol rate/Area] mL/min/{1.73_m2} Normal [facility] Comment on above: Performed By: #### C BC, CMP, MG #### [facility] [address] Globulin (S) [Mass/Vol] 2.9 g/dL Normal [facility] Comment on above: Performed By: #### C BC, CMP, MG #### [address] Glucose [Mass/Vol] 183 mg/dL High 70-100 [facility] Comment on above: Result Comment: [facility] Glucose Reference Range is dependent on time and content of last meal. Glucose of more than 200 mg/dL in a nonstressed, ambulatory subject supports the diagnosis of Diabetes Mellitus. ADA recommended reference range Performed By: #### C BC, CMP, MG #### [address] Potassium [Moles/Vol] 4.7 mmol/L Normal 3.5-5.1 [facility] Comment on above: Performed By: #### C BC, CMP, MG #### [address] Protein [Mass/Vol] 7.2 g/dL Normal 6.4-8.9 [facility] Comment on above: Performed By: #### C BC, CMP, MG #### [address] Sodium [Moles/Vol] 139 mmol/L Normal 136-145 [facility] Comment on above: Performed By: #### C BC, CMP, MG #### [place] [address] [place] Urea nitrogen [Mass/Vol] 18 mg/dL Normal 7-25 [facility] Comment on above: Performed By: #### C BC, CMP, MG #### [address] Albumin [Mass/Vol] 4.7 g/dL Normal 3.5-5.7 [facility] Comment on above: Performed By: #### C BC, CMP, MG #### [address] [place] [address] [place] Albumin/Globulin [Mass ratio] 1.3 {ratio} Normal [facility] Comment on above: Performed By: #### C BC, CMP, MG #### [address] ALP [Catalytic activity/Vol] 112 U/L High 34-104 [facility] Comment on above: Performed By: #### C BC, CMP, MG #### [address] ALT [Catalytic activity/Vol] 14 U/L Normal 7-52 [facility] Comment on above: Performed By: #### C BC, CMP, MG #### [address] Anion gap [Moles/Vol] 19.8 mmol/L High 6.0-15.0 [facility] Comment on above: Performed By: #### C BC, CMP, MG #### [address] AST [Catalytic activity/Vol] 15 U/L Normal 13-39 [facility] Comment on above: Performed By: #### C BC, CMP, MG #### [address] Bilirubin [Mass/Vol] 0.5 mg/dL Normal 0.3-1.0 [facility] Comment on above: Performed By: #### C BC, CMP, MG #### [address] Calcium [Mass/Vol] 9.8 mg/dL Normal 8.6-10.3 [facility] Comment on above: Performed By: #### C BC, CMP, MG #### [place] [address] [place] Chloride [Moles/Vol] 100 mmol/L Normal 98-107 [facility] Comment on above: Performed By: #### C BC, CMP, MG #### [address] CO2 [Moles/Vol] 24.6 mmol/L Normal 21.0-31.0 [facility] Comment on above: Performed By: #### C BC, CMP, MG #### [address] Creatinine [Mass/Vol] 1.26 mg/dL Normal 0.70-1.30 [facility] Comment on above: Performed By: #### C BC, CMP, MG #### [address] Creatinine Clr Calc Pharmacy 72.23 Normal [facility] Comment on above: Result Comment: PERF ORMED BY: [place] [address] PATHOLOGIST RISK CONTROL FIELD REPRESENTATIVE NARESH VERA M.D. Performed By: #### C BC, CMP, MG #### [address] GFR/1.73 sq M.predicted MDRD (S/P/Bld) [Vol rate/Area] mL/min/{1.73_m2} Normal [facility] Comment on above: Performed By: #### C BC, CMP, MG #### [address] Globulin (S) [Mass/Vol] 3.5 g/dL Normal [facility] Comment on above: Performed By: #### C BC, CMP, MG #### [address] Glucose [Mass/Vol] 206 mg/dL High 70-100 [facility] Comment on above: Result Comment: [place] Glucose Reference Range is dependent on time and content of last meal. Glucose of more than 200 mg/dL in a nonstressed, ambulatory subject supports the diagnosis of Diabetes Mellitus. ADA recommended reference range Performed By: #### C BC, CMP, MG #### [address] Potassium [Moles/Vol] 5.4 mmol/L High 3.5-5.1 [facility] Comment on above: Performed By: #### C BC, CMP, MG #### [facility] [address] [place] [id number] [place] Protein [Mass/Vol] 8.2 g/dL Normal 6.4-8.9 [facility] Comment on above: Performed By: #### C BC, CMP, MG #### [facility] [address] [place] [address] [place] Sodium [Moles/Vol] 139 mmol/L Normal 136-145 [facility] Comment on above: Performed By: #### C BC, CMP, MG #### [facility] [address] [place] [id number] [place] Urea nitrogen [Mass/Vol] 15 mg/dL Normal 7-25 [facility] Comment on above: Performed By: #### C BC, CMP, MG #### [facility] [address] [place] [id number] [place] Creatine Kinaseon 10-04-2024 CK [Catalytic activity/Vol] 58 U/L Normal 30-223 [facility] Comment on above: Performed By: #### C BC, CMP, MG #### [facility] [address] [place] [id number] [place] Creatine kinase [Enzymatic a ctivity/volume] in [...] Eosinophils (Bld) [#/Vol] Automated eosinophil count 0.0-0.45 [facility] Eosinophils/100 WBC Auto (Bl d)Ordered [...] 10-04-2024 Glucose [Mass/Vol] 305 mg/dL Normal [facility] Comment on above: Result Comment: [facility] Glucose Reference Range is dependent on time and content of last meal. Glucose of more than 200 mg/dL in a nonstressed, ambulatory subject supports the diagnosis of Diabetes Mellitus. PERFORMED BY: [place] [address] PATHOLOGIST RISK CONTROL FIELD REPRESENTATIVE NARESH VREA M.D. Performed By: #### B IOFIRECOVDET, RESP PANEL UPP. #### [address] Glucose [Mass/Vol] 395 mg/dL Normal [facility] Comment on above: Result Comment: [facility] Glucose Reference Range is dependent on time and content of last meal. Glucose of more than 200 mg/dL in a nonstressed, ambulatory subject supports the diagnosis of Diabetes Mellitus. PERFORMED BY: [place] [address] PATHOLOGIST RISK CONTROL FIELD REPRESENTATIVE NARESH VERA M.D. Performed By: #### G LULS #### Point of Care testing , Glucose [Mass/Vol] 288 mg/dL Normal [facility] Comment on above: Result Comment: [facility] Glucose Reference Range is dependent on time and content of last meal. Glucose of more than 200 mg/dL in a nonstressed, ambulatory subject supports the diagnosis of Diabetes Mellitus. PERFORMED BY: [place] [address] PATHOLOGIST RISK CONTROL FIELD REPRESENTATIVE NARESH VERA M.D. Performed By: #### G LULS #### Point of Care testing , Glucose [Mass/Vol] 174 mg/dL Normal [facility] Comment on above: Result Comment: [place] Glucose Reference Range is dependent on time and content of last meal. Glucose of more than 200 mg/dL in a nonstressed, ambulatory subject supports the diagnosis of Diabetes Mellitus. PERFORMED BY: [facility] [place] [address] PATHOLOGIST RISK CONTROL FIELD REPRESENTATIVE NARESH VERA M.D. Performed By: #### G [...] Magnesium [Mass/Vol] 2.2 mg/dL Normal 1.9-2.7 The [facility] Comment on above: Result Comment: PERF ORMED BY: [place] [address] PATHOLOGIST RISK CONTROL FIELD REPRESENTATIVE NARESH VERA M.D. Performed By: #### C BC, CMP, MG #### [address] Magnesium [Mass/volume] in S bee or [facility] No Panel InformationOrdered By: Pranay Bai on 10-04-2024 Blood Gas Critical Value See comment [facility] Comment on above: Critical Value bragg d on: 10/04/2024 at 00:11 Blood Gas Liter Flow 3 [facility] Blood Gas Sample Site Venous Fir [facility] FiO2 32 % [facility] Venous [...] A H3 Blank Space -- PERFORMED BY: [facility] [place] [address] PATHOLOGIST RISK CONTROL FIELD REPRESENTATIVE NARESH VERA M.D. Normal [facility] Comment on above: Performed By: #### B IOFIRECOVDET, RESP PANEL UPP. #### [facility] [address] Respiratory pathogens DNA an d RNA panel - Nasopharynx by YOLANDA with non-probe detectionOrdered By: Clifton Calderon on 10-04-2024 Respiratory pathogens DNA and RNA panel YOLANDA+non-probe (Nph) Respiratory pathogens DNA and RNA panel - Nasopharynx by YOLANDA with non-probe detection [facility] Scan and CBCon 10-04-2024 Anisocytosis Ql (Bld) Marked Normal [facility] Comment on above: Performed By: #### C BC, CMP, MG #### [address] Basophils (Bld) [#/Vol] 0.1 10*3/uL Normal 0.0-0.2 [facility] Comment on above: Performed By: #### C BC, CMP, MG #### [address] Basophils/100 WBC (Bld) 0.7 % Normal . [facility] Comment on above: Performed By: #### C BC, CMP, MG #### [address] Eosinophils (Bld) [#/Vol] 0.0 10*3/uL Normal 0.0-0.45 [facility] Comment on above: Performed By: #### C BC, CMP, MG #### [address] Eosinophils/100 WBC (Bld) 0.2 % Normal . [facility] Comment on above: Performed By: #### C BC, CMP, MG #### [address] Erythrocyte distribution width (RBC) [Ratio] 24.6 % High 12.0-14.8 [facility] Comment on above: Performed By: #### C BC, CMP, MG #### [address] Hematocrit (Bld) [Volume fraction] 55.3 % High 38.8-50.0 [facility] Comment on above: Performed By: #### C BC, CMP, MG #### [address] Hemoglobin (Bld) [Mass/Vol] 17.8 g/dL High 13.0-17.0 [facility] Comment on above: Performed By: #### C BC, CMP, MG #### [address] Hypochromasia Slight Normal [facility] Comment on above: Performed By: #### C BC, CMP, MG #### [address] Lymphocytes (Bld) [#/Vol] 1.5 10*3/uL Normal 1.00-4.8 [facility] Comment on above: Performed By: #### C BC, CMP, MG #### [address] Lymphocytes/100 WBC (Bld) 11.7 % Normal . [facility] Comment on above: Performed By: #### C BC, CMP, MG #### [address] MCH (RBC) [Entitic mass] 24.8 pg Low 27.5-35.2 [facility] Comment on above: Performed By: #### C BC, CMP, MG #### [address] MCV (RBC) [Entitic vol] 77.2 fL Low 83.5-101 [facility] Comment on above: Performed By: #### C BC, CMP, MG #### [address] Mean Corpuscular HGB Conc 32.1 g/dL Low 32.5-35.6 [facility] Comment on above: Performed By: #### C BC, CMP, MG #### [address] Microcytosis Marked Normal [facility] Comment on above: Performed By: #### C BC, CMP, MG #### [address] Monocytes (Bld) [#/Vol] 1.6 10*3/uL High 0.0-0.8 [facility] Comment on above: Performed By: #### C BC, CMP, MG #### [place] [address] [place] Monocytes/100 WBC (Bld) 21.22 % High 0.00-20.00 [facility] Comment on above: Result Comment: For adults in ED, MDW > 20.0 may be associated with a higher risk of sepsis during the first 12 hrs of hospital admission Performed By: #### C BC, CMP, MG #### [address] Monocytes/100 WBC (Bld) 12.6 % Normal . [facility] Comment on above: Performed By: #### C BC, CMP, MG #### [address] Neutrophils (Bld) [#/Vol] 9.5 10*3/uL High 1.8-7.7 [facility] Comment on above: Performed By: #### C BC, CMP, MG #### [address] Neutrophils/100 WBC (Bld) 74.8 % Normal . [facility] Comment on above: Performed By: #### C BC, CMP, MG #### [address] NRBC% 0.2 /100{WBC} Normal 0-0.5 [facility] Comment on above: Performed By: #### C BC, CMP, MG #### [address] Platelet Estimate Normal Normal Normal [facility] Comment on above: Performed By: #### C BC, CMP, MG #### [address] Platelet mean volume (Bld) [Entitic vol] 8.1 fL Normal 6.6-10.1 [facility] Comment on above: Performed By: #### C BC, CMP, MG #### [address] Platelet Morphology Normal Normal Normal [facility] Comment on above: Result Comment: PERF ORMED BY: [place] [address] PATHOLOGIST RISK CONTROL FIELD REPRESENTATIVE NARESH VERA M.D. Performed By: #### C BC, CMP, MG #### [address] Platelets (Bld) [#/Vol] 315 10*3/uL Normal 150-450 [facility] Comment on above: Performed By: #### C BC, CMP, MG #### [address] Polychromasia Moderate Normal [facility] Comment on above: Performed By: #### C BC, CMP, MG #### [address] RBC (Bld) [#/Vol] 7.16 10*6/uL High 3.90-5.60 [facility] Comment on above: Performed By: #### C BC, CMP, MG #### [place] [address] [place] WBC (Bld) [#/Vol] 12.7 10*3/uL High 4.1-10.5 [facility] Comment on above: Performed By: #### C BC, CMP, MG #### [place] [address] [place] WBC (Bld) [#/Vol] 13.8 10*3/uL High 4.1-10.5 [facility] Comment on above: Performed By: #### C BC, CMP, MG #### [address] Serum or plasma albumin/glob ulin mass [...] I High Sensitivity 27 High 0-20 [facility] Comment on above: Result Comment: The Troponin units of report have been changed to meet the Chest Pain Accreditation requirement, element EC5.M1l2. Troponin units are changed from pg/ml to ng/L. Also, the decimal is removed and results are in whole numbers. PERFORMED BY: [place] [address] PATHOLOGIST RISK CONTROL FIELD REPRESENTATIVE NARESH VERA M.D. Performed By: #### C BC, CMP, MG #### [address] Troponin I.cardiac [Mass/vol ume] in Serum [...] 10-04-2024 CO2 [Moles/Vol] 26.6 mmol/L Normal 24.0-29.0 [facility] Comment on above: Performed By: #### C BC, CMP, MG #### [address] HCO3 (Bld) [Moles/Vol] 25.2 mmol/L Normal 23.0-29.0 [facility] Comment on above: Performed By: #### C BC, CMP, MG #### [address] Venous Blood Gason Respiratory Critical Normal [facility] Comment on above: Result Comment: Crit ical Value called on: 10/04/2024 at 00:11 PERFORMED BY: [place] [address] PATHOLOGIST RISK CONTROL FIELD REPRESENTATIVE NARESH VERA M.D. Performed By: #### C BC, CMP, MG #### [address] VBG Base Excess -1.5 mmol/L Normal -3.0-3.0 [facility] Comment on above: Performed By: #### C BC, CMP, MG #### [address] VBG Draw Site Venous Normal [facility] Comment on above: Performed By: #### C BC, CMP, MG #### [address] VBG Frac Inspired O2 32 % Normal [facility] Comment on above: Performed By: #### C BC, CMP, MG #### [address] VBG Liter Flow 3 Normal [facility] Comment on above: Performed By: #### C BC, CMP, MG #### [address] VBG O2 Content 4.9 mmol/L Low 6.6-9.7 [facility] Comment on above: Performed By: #### C BC, CMP, MG #### [address] VBG Oxygen Saturation 43.8 % Off scale low 73.0-76.0 [facility] Comment on above: Performed By: #### C BC, CMP, MG #### [address] VBG PCO2 48.8 mm[Hg] Normal 38.0-50.0 [facility] Comment on above: Performed By: #### C BC, CMP, MG #### [address] VBG PH Venous PH 7.33 Normal 7.32-7.43 [facility] Comment on above: Performed By: #### C BC, CMP, MG #### [address] VBG PO2 26.1 mm[Hg] Low 35.0-45.0 [facility] Comment on above: Performed By: #### C BC, CMP, MG #### [address] WBC Auto (Bld) [#/Vol]Ordere d By: Pranay Bai on 10-04-2024 WBC (Bld) [#/Vol] Leukocytes [#/volume ] in Blood by Automated count High 4.1-10.5 [facility] ECG 12 lead ECGon 10-03-2024 ECG 12 lead ECG [facility] [place] [address] Electrocardiograph Report Signed Patient: Ricardo Hylton MR#: [id number] 88 : 1960 Acct:[id number] Age/Sex: 63 / M ADM Date: 10/04/24 Loc: Room: [address] [place] [address] Type: ADM IN Attending Dr: Eden Greenwood [...] QRS duration Confirmed by PRANAY BAI MD ([id number]) on 10/05/2024 4:50:26 AM Referred By: Electronically Signed By: PRANAY BAI MD Transcribed By: MUS Signed By Pranay Bai Jr, MD 0450 Normal [facility] X-ray reportOrdered By: Ludin Bateman on 10-03-2024 Study report [facility] Main [address] [address] XRay Report Signed Patient: Ricardo Hylton MR#: [id number] : 1960 Acct:[id number] Age/Sex: 63 / M ADM Date: 5 Loc: ER Room: Type: [facility] ER Attending Dr: Copies to: Pranay [...] Daryl Bateman M.D.10/03/2024 11:14 PM Dictation Location: [place] [address] Transcribed By: [facility] 10/03/242313 Dictated By: Daryl Bateman MD 10/03/242312 Signed By: 10/03/24 231 [facility] Work Phone: XR chest 1V portableon 10-03 XR chest 1V portable [address] [address] XRay Report Signed Patient: Ricardo Hylton MR#: [id number] [birth year] : 1960 Acct:[id number] Age/Sex: 63 / M ADM Date: 10/03/24 Loc: ER Room: Type: [facility] ER Attending Dr: Copies to: Pranay [...] Daryl Bateman M.D.10/03/2024 11:14 PM Dictation Location: [place] [address] Transcribed By: [facility] 10/03/242313 Dictated By: Daryl Bateman MD 10/03/242312 Signed By: 10/03/242313 Normal [facility] Ambulatory Visit Summaryon 1 07-22-2023 [...] PM EST With: SARAH TRIVEDI CNP Where: [address] [address]- Tuesday 1:00 PM EDT With: Where: [address] [id number]- Medications What How Much When Why Instructions New empagliflozin (Jardiance 25 mg oral tablet) 1 Tablets By Mouth Once a day (in the morning) Pickup at [facility]/pharmacy #[id number] Unchanged albuterol-ipratropium (Combivent Respimat 20 mcg-100 mcg) [...] or concerns Pharmacy Information [id number]: [address], [place] [id number] [phone] Allergies metFORMIN (Diarrhea) Pro (more content not included)... Normal [facility] Office/Clini c Noteon 05-22-2024 [...] f/u in 3 months Ordered: A1c POC 99562 2. Anxiety (F41.9: Anxiety disorder, unspecified) Completed and reviewed the PHQ-9 score of 10 and the CANDACE-7 score of 12 Encouraged patient to contact [facility] for counseling Increase hydroxyzine 50 mg one tablet po TID prn for anxiety f/u in 4 weeks Ordered: hydrOXYzine, 50 mg = 1 tab(s), Oral, TID, PRN for anxiety, # 90 tab(s), Refills(s) 0, Pharmacy: [facility]/pharmacy #[id number], 177, cm, 05/22/24 15:06:00 EST, Height/Length Dosing, 107.7, kg, 05/22/24 15:06:00 EST, Weight Dosing A1c POC 06518 3. Former smoker (Z87.891: Personal history of nicotine dependence) Courage to continue is a non-smoker Ordered: A1c POC 18097 4. BMI 34.0-34.9,adult (Z68.34: Body mass index [...] control and daily exercise Ordered: A1c POC 16227 5. Exogenous obesity (E66.09: Other obesity due to excess calories) The standard range for ages 18 and older is >=18.5 and < 25 kg/m2. Your BMI today was above this range, this falls in the overweight to obese category and there are medical benefits to weight loss. We can off (more content not included)... [facility] Comment on above: Result Comment: Elec tronically Signed By: SARAH TRIVEDI CNP\.br\Date and Time Signed: 05/22/24 15:51 EST Provider Letteron 05-02-2024 Provider Letter Provider Letter May 02, 2024 [address] [place] [id number] RICARDO HYLTON 1960 Dear Ricardo, We have been trying to reach you with no success. It is important that you return our call regarding your hospital discharge upon receiving this letter. Also, at the time of your call, please provide us with your current information. Thank you for your prompt attention to this matter. Sincerely, Mark, Marketing Support Coordinator [phone] [facility] Pre-Visit Planningon 024 Pre-Visit Planning [...] was 93%. 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 Patient admits to be a little more [...] feel free to contact me at extension [phone]. Thank you! ROWDY Kidd, RN, CCM, CCDS, CCDS-O CDI Paper Roller [address] [address] P: [phone] F: [phone] [email or web address] From: SARAH TRIVEDI CNP To: Yesenia Muñoz RN; Sent: 04/24/2024 13:57:06 EDT Subject: RE: Pre-Visit Planning Caller Name: RICARDO HYLTON; Caller Number: Jose , M Patient did not show for his appointment however, dx added to the chronic list. Normal [facility] Pre-Visit Planning Pre-Visit Planning From: Yesenia [...] BMI of 36 on 12/29/2022. The National [place] of [employer] defines obesity as morbid if [...] feel free to contact me at extension [phone]. Thank you! Yesenia Muñoz, ROWDY, RN, CCM, CCDS, CCDS-O CDI Paper Roller [place] [address] P: [phone] F: [phone] [email or web address] From: SARAH TRIVEDI CNP To: Wanda BRYANT, Yesenia; Sent: 04/24/2024 13:56:56 EDT Subject: RE: Pre-Visit Planning Caller Name: RICARDO HYLTON; Caller Number: Jose , M Patient did not show for his appointment however, dx added to the chronic list. Normal [facility] CHEMISTRYOrdered By: SYSTEM SYSTEM on 01-24-2024 [...] used for this result was chemiluminescence using [employer]s Access Hybritech PSA reagent. Protein [Mass/Vol] 7.3 [...] [Catalytic activity/Vol] 49 U/L Normal 39-308 [facility] Comment on above: Performed By: #### C MP #### [facility] [address] [place] [address] Dr. Jessie Lomax CK.MB [Mass/Vol] 1.93 ng/mL Normal <=3.60 [facility] Comment on above: Performed By: #### C MP #### [facility] [address] [place] [address] Dr. Jessie Lomax HSTROP 7.8 pg/mL Normal 4.0-76.1 [facility] Comment on above: Result Comment: CUT- OFF POINTS HAVE BEEN ESTABLISHED BASED ON THE FOURTH UNIVERSAL DEFINITIONS OF MYOCARDIAL INFARCTION. THE UPPER REFERENCE LIMIT (URL) OF TROPONIN, DEFINED THE 99TH PERCENTILE OF cTnI DISTRIBUTION IN A REFERENCE POPULATION, HAS BEEN CONFIRMED THE DECISION THRESHOLD FOR [place] DIAGNOSIS. Performed By: #### C MP #### [facility] [address] [place] [address] Dr. Jessie Lomax LACTATE/LACTIC ACIDon 2022 Lactate [Moles/Vol] 1.5 mmol/L Normal 0.4-2.0 [facility] Comment on above: Performed By: #### B LDCX1 #### [facility] [address] [place] [address] Dr. Jessie Lomax Lactate [Moles/Vol] 2.5 mmol/L Critically high 0.4-2.0 [facility] Comment on above: Performed By: #### B LDCX1 #### [facility] [address] [place] [address] Dr. Jessie Lomax CARDIAC JUSTINE ADMITon 023 CK [Catalytic activity/Vol] 36 U/L Critically low 39-308 [facility] Comment on above: Performed By: #### A CETON #### [facility] [address] [place] [address] Dr. Jessie Lomax CK.MB [Mass/Vol] 1.50 ng/mL Normal <=3.60 [facility] Comment on above: Performed By: #### A CETON #### [facility] [address] [place] [address] Dr. Jessie Lomax HSTROP 7.4 pg/mL Normal 4.0-76.1 [facility] Comment on above: Result Comment: CUT- OFF POINTS HAVE BEEN ESTABLISHED BASED ON THE FOURTH UNIVERSAL DEFINITIONS OF MYOCARDIAL INFARCTION. THE UPPER REFERENCE LIMIT (URL) OF TROPONIN, DEFINED THE 99TH PERCENTILE OF cTnI DISTRIBUTION IN A REFERENCE POPULATION, HAS BEEN CONFIRMED THE DECISION THRESHOLD FOR [place] DIAGNOSIS. Performed By: #### A CETON #### [facility] [address] [place] [address] Dr. Jessie Lomax HERLINDA 44 ng/mL Normal 16-96 [facility] Comment on above: Performed By: #### A CETON #### [facility] [address] [place] [address] Dr. Jessie Lomax CBC AUTO DIFFon 10-03-2022 BASO # 0.1 103/ul Normal 0.0-0.1 [facility] Comment on above: Performed By: #### C BC #### [facility] [address] [place] [address] Dr. Jessie Lomax Basophils/100 WBC (Bld) 0.5 % Normal 0.2-2.0 [facility] Comment on above: Performed By: #### C BC #### [facility] [address] [place] [address] Dr. Jessie Lomax EO # 0.0 103/ul Normal 0.0-0.7 [facility] Comment on above: Performed By: #### C BC #### [facility] [address] [place] [address] Dr. Jessie Lomax Eosinophils/100 WBC (Bld) 0.2 % Critically low 0.9-7.0 [facility] Comment on above: Performed By: #### C BC #### [facility] [address] [place] [address] Dr. Jessie Lomax Erythrocyte distribution width (RBC) [Ratio] 14.6 % Normal 11.0-15.0 [facility] Comment on above: Performed By: #### C BC #### [facility] [address] [place] [address] Dr. Jessie Lomax Hematocrit (Bld) [Volume fraction] 49.6 % Normal 42.0-54.0 [facility] Comment on above: Performed By: #### C BC #### [facility] [address] [place] [address] Dr. Jessie Lomax Hemoglobin (Bld) [Mass/Vol] 16.6 g/dL Normal 14.0-18.0 [facility] Comment on above: Performed By: #### C BC #### [facility] [address] [place] [address] Dr. Jessie Lomax IG # 0.10 10e3/ul Critically high 0.00-0.03 [facility] Comment on above: Performed By: #### C BC #### [facility] [address] [place] [address] Dr. Jessie Lomax IG % 0.8 % Critically high 0.0-0.5 [facility] Comment on above: Performed By: #### C BC #### [facility] [address] [place] [address] Dr. Jessie Lomax LYMPH # 1.0 103/ul Critically low 1.2-3.8 [facility] Comment on above: Performed By: #### C BC #### [facility] [address] [place] [address] Dr. Jessie Lomax Lymphocytes/100 WBC (Bld) 8.2 % Critically low 20.5-60.0 [facility] Comment on above: Performed By: #### C BC #### [facility] [address] [place] [address] Dr. Jessie Lomax MANUAL DIFF REQ NO Normal [facility] Comment on above: Performed By: #### C BC #### [facility] [address] [place] [address] Dr. Jessie Lomax MCH (RBC) [Entitic mass] 31.0 pg Normal 25.9-34.0 [facility] Comment on above: Performed By: #### C BC #### [facility] [address] [place] [address] Dr. Jessie Lomax MCHC (RBC) [Mass/Vol] 33.5 g/dL Normal 29.9-35.2 [facility] Comment on above: Performed By: #### C BC #### [facility] [address] [place] [address] [address] Jessie Lomax MCV (RBC) [Entitic vol] 92.5 fL Normal 80.0-94.0 [facility] Comment on above: Performed By: #### C BC #### [facility] [address] [place] [address] [address] Jessie Lomax MONO # 0.6 103/ul Normal 0.3-0.8 [facility] Comment on above: Performed By: #### C BC #### [facility] [address] [place] [address] Dr. Jessie Lomax Monocytes/100 WBC (Bld) 4.9 % Normal 1.7-12.0 [facility] Comment on above: Performed By: #### C BC #### [facility] [address] [place] [address] Dr. Jessie Lomax NEUT # 10.5 103/ul Critically high 1.4-6.5 [facility] Comment on above: Performed By: #### C BC #### [facility] [address] [place] [address] Dr. Jessie Lomax Neutrophils/100 WBC (Bld) 85.4 % Critically high 43.0-75.0 [facility] Comment on above: Performed By: #### C BC #### [facility] [address] [place] [address] Dr. Jessie Lomax Platelet mean volume (Bld) [Entitic vol] 9.3 fL Critically low 9.5-13.5 [facility] Comment on above: Performed By: #### C BC #### [facility] [address] [place] [address] Dr. Jessie Lomax PLT 259 103/ul Normal 150-450 [facility] Comment on above: Performed By: #### C BC #### [facility] [address] [place] [address] Dr. Jessie Lomax RBC 5.36 106/ul Normal 4.70-6.10 [facility] Comment on above: Performed By: #### C BC #### [facility] [address] [place] [address] Dr. Jessie Lomax WBC 12.3 103/ul Critically high 4.0-11.0 [facility] Comment on above: Performed By: #### C BC #### [facility] [address] [place] [address] Dr. Jessie Lomax LACTATE/LACTIC ACIDon 2022 Lactate [Moles/Vol] 2.9 mmol/L Critically high 0.4-2.0 [facility] Comment on above: Performed By: #### C MP #### [facility] [address] [place] [address] Dr. Jessie Lomax PROF CHEM 8 (BAS METB)on Anion gap [Moles/Vol] 8.7 mmol/L Normal [facility] Comment on above: Performed By: #### A CETON #### [facility] [address] [place] [address] Dr. Jessie Lomax Calcium [Mass/Vol] 8.9 mg/dL Normal 8.5-10.1 [facility] Comment on above: Performed By: #### A CETON #### [facility] [address] [place] [address] Dr. Jessie Lomax Chloride [Moles/Vol] 100 mmol/L Normal 98-107 [facility] Comment on above: Performed By: #### A CETON #### [facility] [address] [place] [address] Dr. Jessie Lomax CO2 [Moles/Vol] 32.6 mmol/L Critically high 21.0-32.0 [facility] Comment on above: Performed By: #### A CETON #### [facility] [address] [place] [address] Dr. Jessie Lomax Creatinine [Mass/Vol] 1.32 mg/dL Critically high 0.70-1.30 [facility] Comment on above: Performed By: #### A CETON #### [facility] [address] [place] [address] Dr. Jessie Lomax EGFR-AF COLOMBIAN >60 Normal >=60 [facility] Comment on above: Performed By: #### A CETON #### [facility] [address] [place] [address] Dr. Jessie Lomax EGFR-NON AF COLOMBIAN 55 mL/min/1.73m2 Critically low >=60 [facility] Comment on above: Performed By: #### A CETON #### [facility] [address] [place] [address] Dr. Jessie Lomax Glucose [Mass/Vol] 360 mg/dL Critically high 74-106 [facility] Comment on above: Performed By: #### A CETON #### [facility] [address] [place] [address] Dr. Jessie Lomax Potassium [Moles/Vol] 4.3 mmol/L Normal 3.5-5.1 [facility] Comment on above: Performed By: #### A CETON #### [facility] [address] [place] [address] Dr. Jessie Lomax Sodium [Moles/Vol] 137 mmol/L Normal 136-145 [facility] Comment on above: Performed By: #### A CETON #### [facility] [address] [place] [address] Dr. Jessie Lomax Urea nitrogen [Mass/Vol] 20.0 mg/dL Critically high 7.0-18.0 [facility] Comment on above: Performed By: #### A CETON #### [facility] [address] [place] [address] Dr. Jessie Lomax Urea nitrogen/Creatinine [Mass ratio] 15.2 mg/mg Normal [facility] Comment on above: Performed By: #### A CETON #### [facility] [address] [place] [address] Dr. Jessie Lomax XR CHEST 1 Von [...] SOLA SHELL Date: 2022-10-03 20:56 Normal [facility] ER URINE PROFILEon 3 Bilirubin Ql (U) Negative Normal NEGATIVE [facility] Comment on above: Performed By: #### T TYLER #### [facility] [address] [place] [address] Dr. Jessie Lomax Clarity (U) CLEAR Normal CLEAR [facility] Comment on above: Performed By: #### T TYLER #### [facility] [address] [address] [address] Jessie Lomax Color (U) LT. YELLOW Normal YELLOW [facility] Comment on above: Performed By: #### T TYLER #### [facility] [address] [place] [address] Dr. Jessie Lomax ERUAHD A micrscopic examina tion will be performed if indicated. Normal [facility] Comment on above: Performed By: #### T TYLER #### [facility] [address] [place] [address] Dr. Jessie Lomax Glucose Ql (U) >1000 Abnormal NEGATIVE [facility] Comment on above: Performed By: #### T TYLER #### [facility] [address] [place] [address] Dr. Jessie Lomax Hemoglobin Ql (U) Negative Normal NEGATIVE [facility] Comment on above: Performed By: #### T TYLER #### [facility] [address] [address] [address] Jessie Lomax Ketones Ql (U) Negative Normal NEGATIVE [facility] Comment on above: Performed By: #### T TYLER #### [facility] [address] [address] [address] Jessie Lomax LEUKOCYTES Negative Normal NEGATIVE [facility] Comment on above: Performed By: #### T TYLER #### [facility] [address] [place] [address] Dr. Jessie Lomax Nitrite Ql (U) Negative Normal NEGATIVE [facility] Comment on above: Performed By: #### T TYLER #### [facility] [address] [place] [address] Dr. Jessie Lomax pH (U) 6.0 [pH] Normal 5-9 [facility] Comment on above: Performed By: #### T TYLER #### [facility] [address] [place] [address] Dr. Jessie Lomax SPEC GRAVITY <=1.005 Abnormal 1.005-<=1. 025 [facility] Comment on above: Performed By: #### T TYLER #### [facility] [address] [place] [address] Dr. Jessie Lomax UA PROTEIN Negative Normal NEGATIVE/ TRACE [facility] Comment on above: Performed By: #### T TYLER #### [facility] [address] [place] [address] Dr. Jessie Lomax UR MICRO IND NOT INDICATED Normal [facility] Comment on above: Performed By: #### T TYLER #### [facility] [address] [place] [address] Dr. Jessie Lomax Urobilinogen Qn (U) 0.2 {Angelique'U}/dL Normal 0.2 - 1. 0 [facility] Comment on above: Performed By: #### T TYLER #### [facility] [address] [place] [address] Dr. Jessie Lomax CBC AUTO DIFFon 08-30-2022 BASO # 0.0 103/ul Normal 0.0-0.1 [facility] Comment on above: Performed By: #### C BC #### [facility] [address] [place] [address] Dr. Jessie Lomax Basophils/100 WBC (Bld) 0.1 % Critically low 0.2-2.0 [facility] Comment on above: Performed By: #### C BC #### [facility] [address] [place] [address] Dr. Jessie Lomax EO # 0.0 103/ul Normal 0.0-0.7 [facility] Comment on above: Performed By: #### C BC #### [facility] [address] [place] [address] Dr. Jessie Lomax Eosinophils/100 WBC (Bld) 0.1 % Critically low 0.9-7.0 [facility] Comment on above: Performed By: #### C BC #### [facility] [address] [place] [address] Dr. Jessie Lomax Erythrocyte distribution width (RBC) [Ratio] 13.6 % Normal 11.0-15.0 [facility] Comment on above: Performed By: #### C BC #### [facility] [address] [place] [address] Dr. Jessie Lomax Hematocrit (Bld) [Volume fraction] 46.3 % Normal 42.0-54.0 [facility] Comment on above: Performed By: #### C BC #### [facility] [address] [place] [address] Dr. Jessie Lomax Hemoglobin (Bld) [Mass/Vol] 15.4 g/dL Normal 14.0-18.0 [facility] Comment on above: Performed By: #### C BC #### [facility] [address] [place] [address] Dr. Jessie Lomax IG # 0.08 10e3/ul Critically high 0.00-0.03 [facility] Comment on above: Performed By: #### C BC #### [facility] [address] [place] [address] Dr. Jessie Lomax IG % 0.6 % Critically high 0.0-0.5 [facility] Comment on above: Performed By: #### C BC #### [facility] [address] [place] [address] Dr. Jessie Lomax LYMPH # 0.8 103/ul Critically low 1.2-3.8 [facility] Comment on above: Performed By: #### C BC #### [facility] [address] [place] [address] Dr. Jessie Lomax Lymphocytes/100 WBC (Bld) 5.7 % Critically low 20.5-60.0 [facility] Comment on above: Performed By: #### C BC #### [facility] [address] [place] [address] Dr. Jessie Lomax MANUAL DIFF REQ NO Normal [facility] Comment on above: Performed By: #### C BC #### [facility] [address] [place] [address] Dr. Jessie Lomax MCH (RBC) [Entitic mass] 30.2 pg Normal 25.9-34.0 [facility] Comment on above: Performed By: #### C BC #### [facility] [address] [place] [address] Dr. Jessie Lomax MCHC (RBC) [Mass/Vol] 33.3 g/dL Normal 29.9-35.2 [facility] Comment on above: Performed By: #### C BC #### [facility] [address] [place] [address] Dr. Jessie Lomax MCV (RBC) [Entitic vol] 90.8 fL Normal 80.0-94.0 [facility] Comment on above: Performed By: #### C BC #### [facility] [address] [place] [address] Dr. Jessie Lomax MONO # 0.4 103/ul Normal 0.3-0.8 [facility] Comment on above: Performed By: #### C BC #### [facility] [address] [place] [address] Dr. Jessie Lomax Monocytes/100 WBC (Bld) 2.9 % Normal 1.7-12.0 [facility] Comment on above: Performed By: #### C BC #### [facility] [address] [place] [address] Dr. Jessie Lomax NEUT # 12.3 103/ul Critically high 1.4-6.5 [facility] Comment on above: Performed By: #### C BC #### [facility] [address] [place] [address] Dr. Jessie Lomax Neutrophils/100 WBC (Bld) 90.6 % Critically high 43.0-75.0 [facility] Comment on above: Performed By: #### C BC #### [facility] [address] [place] [address] Dr. Jessie Lomax Platelet mean volume (Bld) [Entitic vol] 9.3 fL Critically low 9.5-13.5 [facility] Comment on above: Performed By: #### C BC #### [facility] [address] [place] [address] Dr. Jessie Lomax PLT 389 103/ul Normal 150-450 [facility] Comment on above: Performed By: #### C BC #### [facility] [address] [place] [address] Dr. Jessie Lomax RBC 5.10 106/ul Normal 4.70-6.10 [facility] Comment on above: Performed By: #### C BC #### [facility] [address] [place] [address] Dr. Jessie Lomax WBC 13.6 103/ul Critically high 4.0-11.0 [facility] Comment on above: Performed By: #### C BC #### [facility] [address] [place] [address] Dr. Jessie Lomax POINT OF CARE GLUCOSEon 08-18 Glucose [Mass/Vol] 283 mg/dL Critically high 74-106 [facility] Comment on above: Performed By: #### C BC #### [facility] [address] [place] [address] Dr. Jessie Lomax Glucose [Mass/Vol] 315 mg/dL Critically high 74-106 [facility] Comment on above: Performed By: #### T TYLER #### [facility] [address] [place] [address] Dr. Jessie Lomax PROF 14(COMP METB)on 023 Albumin [Mass/Vol] 3.7 g/dL Normal 3.4-5.0 [facility] Comment on above: Performed By: #### C MP #### [facility] [address] [place] [address] Dr. Jessie Lomax Albumin/Globulin [Mass ratio] 1.0 {ratio} Normal [facility] Comment on above: Performed By: #### C MP #### [facility] [address] [place] [address] Dr. Jessie Lomax ALP [Catalytic activity/Vol] 94 U/L Normal 46-116 [facility] Comment on above: Performed By: #### C MP #### [facility] [address] [place] [address] Dr. Jessie Lomax ALT [Catalytic activity/Vol] 23 U/L Normal 16-63 [facility] Comment on above: Performed By: #### C MP #### [facility] [address] [place] [address] Dr. Jessie Lomax Anion gap [Moles/Vol] 13.6 mmol/L Normal [facility] Comment on above: Performed By: #### C MP #### [facility] [address] [place] [address] Dr. Jessie Lomax AST [Catalytic activity/Vol] 9 U/L Critically low 15-37 [facility] Comment on above: Performed By: #### C MP #### [facility] [address] [place] [address] Dr. Jessie Lomax Bilirubin [Mass/Vol] 0.3 mg/dL Normal 0.2-1.0 [facility] Comment on above: Performed By: #### C MP #### [facility] [address] [place] [address] Dr. Jessie Lomax Calcium [Mass/Vol] 9.8 mg/dL Normal 8.5-10.1 [facility] Comment on above: Performed By: #### C MP #### [facility] [address] [place] [address] Dr. Jessie Lomax Chloride [Moles/Vol] 99 mmol/L Normal 98-107 [facility] Comment on above: Performed By: #### C MP #### [facility] [address] [place] [address] Dr. Jessie Lomax CO2 [Moles/Vol] 29.2 mmol/L Normal 21.0-32.0 [facility] Comment on above: Performed By: #### C MP #### [facility] [address] [place] [address] Dr. Jessie Lomax Creatinine [Mass/Vol] 1.17 mg/dL Normal 0.70-1.30 [facility] Comment on above: Performed By: #### C MP #### [facility] [address] [address] [address] Jessie Lomax EGFR-AF COLOMBIAN >60 Normal >=60 [facility] Comment on above: Performed By: #### C MP #### [facility] [address] [address] [address] Jessie Lomax EGFR-NON AF COLOMBIAN >60 Normal >=60 [facility] Comment on above: Performed By: #### C MP #### [facility] [address] [address] [address] Jessie Lomax Globulin (S) [Mass/Vol] 3.6 g/dL Normal [facility] Comment on above: Performed By: #### C MP #### [facility] [address] [place] [address] Dr. Jessie Lomax Glucose [Mass/Vol] 259 mg/dL Critically high 74-106 [facility] Comment on above: Performed By: #### C MP #### [facility] [address] [address] [address] Jessie Lomax Potassium [Moles/Vol] 3.8 mmol/L Normal 3.5-5.1 [facility] Comment on above: Performed By: #### C MP #### [facility] [address] [place] [address] Dr. Jessie Lomax Protein [Mass/Vol] 7.3 g/dL Normal 6.4-8.2 [facility] Comment on above: Performed By: #### C MP #### [facility] [address] [place] [address] Dr. Jessie Lomax Sodium [Moles/Vol] 138 mmol/L Normal 136-145 [facility] Comment on above: Performed By: #### C MP #### [facility] [address] [place] [address] Dr. Jessie Lomax Urea nitrogen [Mass/Vol] 21.0 mg/dL Critically high 7.0-18.0 [facility] Comment on above: Performed By: #### C MP #### [facility] [address] [address] [address] Jessie Lomax Urea nitrogen/Creatinine [Mass ratio] 17.9 mg/mg [facility] Comment on above: Performed By: #### C MP #### [facility] [address] [address] [address] Jessie Lomax BLOOD GASES BTYon 08-29-2022 02 MODE HAND HELD NEB [facility] Comment on above: Performed By: #### C MP #### [facility] [address] [place] [address] Dr. Jessie Lomax ALLENS TEST Positive [facility] Comment on above: Performed By: #### C MP #### [facility] [address] [address] [address] Jessie Lomax Base excess Calc (Bld) [Moles/Vol] 2.1 mmol/L Critically high -2.0-2.0 [facility] Comment on above: Performed By: #### C MP #### [facility] [address] [place] [address] Dr. Jessie Lomax BIPAP PRESSURE [facility] Comment on above: Performed By: #### C MP #### [facility] [address] [place] [address] Dr. Jessie Lomax CPAP [facility] Comment on above: Performed By: #### C MP #### [facility] [address] [address] [address] Jessie Lomax FIO2 [facility] Comment on above: Performed By: #### C MP #### [facility] [address] [place] [address] Dr. Jessie Lomax HCO3 (Bld) [Moles/Vol] 27.7 mmol/L Critically high 22.0-26 .0 [facility] Comment on above: Performed By: #### C MP #### [facility] [address] [place] [address] Dr. Jessie Lomax LPM [address] [facility] Comment on above: Performed By: #### C MP #### [facility] [address] [address] [address] Jessie Lomax MINUTE VOLUME [facility] Comment on above: Performed By: #### C MP #### [facility] [address] [place] [address] Dr. Jessie Lomax Oxygen (Bld) [Partial pressure] 90.6 mm[Hg] Normal 80.0-100.0 [facility] Comment on above: Performed By: #### C MP #### [facility] [address] [place] [address] Dr. Jessie Lomax Oxygen saturation in Blood 95.5 % Normal 95.0-100.0 [facility] Comment on above: Performed By: #### C MP #### [facility] [address] [place] [address] Dr. Jessie Lomax PCO2 49.7 mmHg Critically high 35.0-45.0 [facility] Comment on above: Performed By: #### C MP #### [facility] [address] [place] [address] Dr. Jessie Lomax [facility] Comment on above: Performed By: #### C MP #### [facility] [address] [place] [address] Dr. Jessie Lomax pH (Bld) 7.354 [pH] Normal 7.350-7.45 0 [facility] Comment on above: Performed By: #### C MP #### [facility] [address] [place] [address] Dr. Jessie Lomax PIP [facility] Comment on above: Performed By: #### C MP #### [facility] [address] [place] [address] Dr. Jessie Lomax PS [facility] Comment on above: Performed By: #### C MP #### [facility] [address] [place] [address] Dr. Jessie Lomax PUNCTURE SITE RR [facility] Comment on above: Performed By: #### C MP #### [facility] [address] [place] [address] Dr. Jessie Lomax RATE [facility] Comment on above: Performed By: #### C MP #### [facility] [address] [place] [address] Dr. Jessie Lomax [facility] Comment on above: Performed By: #### C MP #### [facility] [address] [place] [address] Dr. Jessie Lomxa [facility] Comment on above: Performed By: #### C MP #### [facility] [address] [place] [address] Dr. Jessie Lomax BNPon 08-29-2022 Natriuretic peptide B (Bld) [Mass/Vol] 130.0 pg/mL Normal <=900.0 [facility] Comment on above: Performed By: #### B [id number] #### [facility] [address] [place] [address] Dr. Jessie Lomax CARDIAC JUSTINE ADMITon 023 CK [Catalytic activity/Vol] 41 U/L Normal 39-308 [facility] Comment on above: Performed By: #### B [id number] #### [facility] [address] [place] [address] Dr. Jessie Lomax CK.MB [Mass/Vol] 1.87 ng/mL Normal <=3.60 [facility] Comment on above: Performed By: #### B [id number] #### [facility] [address] [place] [address] Dr. Jessie Lomax HSTROP 27.3 pg/mL Normal 4.0-76.1 [facility] Comment on above: Result Comment: CUT- OFF POINTS HAVE BEEN ESTABLISHED BASED ON THE FOURTH UNIVERSAL DEFINITIONS OF MYOCARDIAL INFARCTION. THE UPPER REFERENCE LIMIT (URL) OF TROPONIN, DEFINED THE 99TH PERCENTILE OF cTnI DISTRIBUTION IN A REFERENCE POPULATION, HAS BEEN CONFIRMED THE DECISION THRESHOLD FOR [place] DIAGNOSIS. Performed By: #### B [id number] #### [facility] [address] [place] [address] Dr. Jessie Lomax HERLINDA 36 ng/mL Normal 16-96 [facility] Comment on above: Performed By: #### B [id number] #### [facility] [address] [place] [address] Dr. Jessie Lomax CBC AUTO DIFFon 08-29-2022 BASO # 0.1 103/ul Normal 0.0-0.1 [facility] Comment on above: Performed By: #### C BC #### [facility] [address] [address] [address] Jessie Lomax Basophils/100 WBC (Bld) 0.7 % Normal 0.2-2.0 [facility] Comment on above: Performed By: #### C BC #### [facility] [address] [place] [address] Dr. Jessie Lomax EO # 0.1 103/ul Normal 0.0-0.7 [facility] Comment on above: Performed By: #### C BC #### [facility] [address] [place] [address] Dr. Jessie Lomax Eosinophils/100 WBC (Bld) 0.8 % Critically low 0.9-7.0 [facility] Comment on above: Performed By: #### C BC #### [facility] [address] [place] [address] Dr. Jessie Lomax Erythrocyte distribution width (RBC) [Ratio] 13.6 % Normal 11.0-15.0 [facility] Comment on above: Performed By: #### C BC #### [facility] [address] [place] [address] Dr. Jessie Lomax Hematocrit (Bld) [Volume fraction] 51.6 % Normal 42.0-54.0 [facility] Comment on above: Performed By: #### C BC #### [facility] [address] [place] [address] Dr. Jessie Lomax Hemoglobin (Bld) [Mass/Vol] 17.1 g/dL Normal 14.0-18.0 [facility] Comment on above: Performed By: #### C BC #### [facility] [address] [place] [address] Dr. Jessie Lomax IG # 0.05 10e3/ul Critically high 0.00-0.03 [facility] Comment on above: Performed By: #### C BC #### [facility] [address] [place] [address] Dr. Jessie Lomax IG % 0.5 % Normal 0.0-0.5 [facility] Comment on above: Performed By: #### C BC #### [facility] [address] [place] [address] Dr. Jessie Lomax LYMPH # 2.1 103/ul Normal 1.2-3.8 [facility] Comment on above: Performed By: #### C BC #### [facility] [address] [place] [address] Dr. Jessie Lomax Lymphocytes/100 WBC (Bld) 20.9 % Normal 20.5-60.0 [facility] Comment on above: Performed By: #### C BC #### [facility] [address] [place] [address] Dr. Jessie Lomax MANUAL DIFF REQ NO Normal [facility] Comment on above: Performed By: #### C BC #### [facility] [address] [place] [address] Dr. Jessie Lomax MCH (RBC) [Entitic mass] 30.7 pg Normal 25.9-34.0 [facility] Comment on above: Performed By: #### C BC #### [facility] [address] [place] [address] Dr. Jessie Lomax MCHC (RBC) [Mass/Vol] 33.1 g/dL Normal 29.9-35.2 [facility] Comment on above: Performed By: #### C BC #### [facility] [address] [place] [address] Dr. Jessie Lomax MCV (RBC) [Entitic vol] 92.6 fL Normal 80.0-94.0 [facility] Comment on above: Performed By: #### C BC #### [facility] [address] [place] [address] Dr. Jessie Lomax MONO # 1.0 103/ul Critically high 0.3-0.8 [facility] Comment on above: Performed By: #### C BC #### [facility] [address] [place] [address] Dr. Jessie Lomax Monocytes/100 WBC (Bld) 9.5 % Normal 1.7-12.0 [facility] Comment on above: Performed By: #### C BC #### [facility] [address] [place] [address] Dr. Jessie Lomax NEUT # 6.7 103/ul Critically high 1.4-6.5 [facility] Comment on above: Performed By: #### C BC #### [facility] [address] [place] [address] Dr. Jessie Lomax Neutrophils/100 WBC (Bld) 67.6 % Normal 43.0-75.0 [facility] Comment on above: Performed By: #### C BC #### [facility] [address] [place] [address] Dr. Jessie Lomax Platelet mean volume (Bld) [Entitic vol] 9.5 fL Normal 9.5-13.5 [facility] Comment on above: Performed By: #### C BC #### [facility] [address] [place] [address] Dr. Jessie Lomax PLT 407 103/ul Normal 150-450 [facility] Comment on above: Performed By: #### C BC #### [facility] [address] [place] [address] Dr. Jessie Lomax RBC 5.57 106/ul Normal 4.70-6.10 [facility] Comment on above: Performed By: #### C BC #### [facility] [address] [place] [address] Dr. Jessie Lomax WBC 10.0 103/ul Normal 4.0-11.0 [facility] Comment on above: Performed By: #### C BC #### [facility] [address] [place] [address] Dr. Jessie Lomax CULTURE BLOODon 08-29-2022 Microscopic examination of blood, culture Culture Observations: NO GROWTH AT 5 DAYS. Normal [facility] Comment on above: Performed By: #### C MP #### [facility] [address] [place] [address] Dr. Jessie Lomax Microscopic examination of blood, culture Culture Observations: NO GROWTH AT 5 DAYS. Normal [facility] Comment on above: Performed By: #### B [id number] #### [facility] [address] [place] [address] Dr. Jessie Lomax [facility] SARS-CoV-2 (COVID-19) RNA YOLANDA+probe Ql (Unsp spec) Not detected Normal NOT DETECTED [facility] Comment on above: Result Comment: When diagnostic [...] for this test is supported by the [place] of [employer] and Human Service's declaration that [...] used). Performed By: #### B [id number] #### [facility] [address] [place] [address] Dr. Jessie Lomax ER URINE PROFILEon 3 Bilirubin Ql (U) Negative Normal NEGATIVE [facility] Comment on above: Performed By: #### A CETON #### [facility] [address] [place] [address] Dr. Jessie Lomax Clarity (U) CLEAR Normal CLEAR [facility] Comment on above: Performed By: #### A CETON #### [facility] [address] [place] [address] Dr. Jessie Lomax Color (U) YELLOW Normal YELLOW [facility] Comment on above: Performed By: #### A CETON #### [facility] [address] [place] [address] Dr. Jessie Jara micrscopic examina tion will be performed if indicated. Normal [facility] Comment on above: Performed By: #### A CETON #### [facility] [address] [place] [address] Dr. Jessie Lomax Glucose Ql (U) 500 mg/dl Abnormal NEGATIVE [facility] Comment on above: Performed By: #### A CETON #### [facility] [address] [place] [address] Dr. Jessie Lomax Hemoglobin Ql (U) Negative Normal NEGATIVE [facility] Comment on above: Performed By: #### A CETON #### [facility] [address] [place] [address] Dr. Jessie Lomax Ketones Ql (U) TRACE Abnormal NEGATIVE [facility] Comment on above: Performed By: #### A CETON #### [facility] [address] [place] [address] Dr. Jessie Lomax LEUKOCYTES Negative Normal NEGATIVE [facility] Comment on above: Performed By: #### A CETON #### [facility] [address] [place] [address] Dr. Jessie Lomax Nitrite Ql (U) Negative Normal NEGATIVE [facility] Comment on above: Performed By: #### A CETON #### [facility] [address] [place] [address] Dr. Jessie Lomax pH (U) 5.5 [pH] Normal 5-9 [facility] Comment on above: Performed By: #### A CETON #### [facility] [address] [place] [address] Dr. Jessie Lomax SPEC GRAVITY >=1.030 Abnormal 1.005-<=1. 025 [facility] Comment on above: Performed By: #### A CETON #### [facility] [address] [place] [address] Dr. Jessie Lomax UA PROTEIN Negative Normal NEGATIVE/ TRACE [facility] Comment on above: Performed By: #### A CETON #### [facility] [address] [place] [address] Dr. Jessie Lomax UR MICRO IND NOT INDICATED Normal [facility] Comment on above: Performed By: #### A CETON #### [facility] [address] [place] [address] Dr. Jessie Lomax Urobilinogen Qn (U) 0.2 {Angelique'U}/dL Normal 0.2 - 1. 0 [facility] Comment on above: Performed By: #### A CETON #### [facility] [address] [place] [address] Dr. Jessie Lomax LACTATE/LACTIC ACIDon 2022 Lactate [Moles/Vol] 1.6 mmol/L Normal 0.4-1.9 [facility] Comment on above: Performed By: #### L ACT #### [facility] [address] [place] [address] Dr. Jessie Lomax POINT OF CARE GLUCOSEon 08-18 Glucose [Mass/Vol] 330 mg/dL Critically high 74-106 [facility] Comment on above: Performed By: #### A CETON #### [facility] [address] [place] [address] Dr. Jessie Lomax Glucose [Mass/Vol] 284 mg/dL Critically high -106 [facility] Comment on above: Performed By: #### C BC #### [facility] [address] [place] [address] Dr. Jessie Lomax Glucose [Mass/Vol] 379 mg/dL Critically high -106 [facility] Comment on above: Performed By: #### B [id number] #### [facility] [address] [place] [address] Dr. Jessie Lomax Glucose [Mass/Vol] 276 mg/dL Critically high 74-106 [facility] Comment on above: Performed By: #### T TYLER #### [facility] [address] [place] [address] Dr. Jessie Lomax PROF 14(COMP METB)on 023 Albumin [Mass/Vol] 3.8 g/dL Normal 3.4-5.0 [facility] Comment on above: Performed By: #### B [id number] #### [facility] [address] [place] [address] Dr. Jessie Lomax Albumin/Globulin [Mass ratio] 1.0 {ratio} Normal [facility] Comment on above: Performed By: #### B [id number] #### [facility] [address] [place] [address] Dr. Jessie Lomax ALP [Catalytic activity/Vol] 106 U/L Normal 46-116 [facility] Comment on above: Performed By: #### B [id number] #### [facility] [address] [place] [address] Dr. Jessie Lomax ALT [Catalytic activity/Vol] 27 U/L Normal 16-63 [facility] Comment on above: Performed By: #### B [id number] #### [facility] [address] [place] [address] Dr. Jessie Lomax Anion gap [Moles/Vol] 12.0 mmol/L Normal [facility] Comment on above: Performed By: #### B [id number] #### [facility] [address] [place] [address] Dr. Jessie Lomax AST [Catalytic activity/Vol] 15 U/L Normal 15-37 [facility] Comment on above: Performed By: #### B [id number] #### [facility] [address] [place] [address] Dr. Jessie Lomax Bilirubin [Mass/Vol] 0.3 mg/dL Normal 0.2-1.0 [facility] Comment on above: Performed By: #### B [id number] #### [facility] [address] [place] [address] Dr. Jessie Lomax Calcium [Mass/Vol] 10.0 mg/dL Normal 8.5-10.1 [facility] Comment on above: Performed By: #### B [id number] #### [facility] [address] [place] [address] Dr. Jessie Lomax Chloride [Moles/Vol] 101 mmol/L Normal 98-107 [facility] Comment on above: Performed By: #### B [id number] #### [facility] [address] [place] [address] Dr. Jessie Lomax CO2 [Moles/Vol] 32.4 mmol/L Critically high 21.0-32.0 [facility] Comment on above: Performed By: #### B [id number] #### [facility] [address] [place] [address] Dr. Jessie Lomax Creatinine [Mass/Vol] 1.14 mg/dL Normal 0.70-1.30 [facility] Comment on above: Performed By: #### B [id number] #### [facility] [address] [place] [address] Dr. Jessie Lomax EGFR-AF COLOMBIAN >60 Normal >=60 [facility] Comment on above: Performed By: #### B [id number] #### [facility] [address] [place] [address] Dr. Jessie Lomax EGFR-NON AF COLOMBIAN >60 Normal >=60 [facility] Comment on above: Performed By: #### B [id number] #### [facility] [address] [place] [address] Dr. Jessie Lomax Globulin (S) [Mass/Vol] 3.7 g/dL Normal [facility] Comment on above: Performed By: #### B [id number] #### [facility] [address] [place] [address] Dr. Jessie Lomax Glucose [Mass/Vol] 204 mg/dL Critically high 74-106 [facility] Comment on above: Performed By: #### B [id number] #### [facility] [address] [place] [address] Dr. Jessie Lomax Potassium [Moles/Vol] 4.4 mmol/L Normal 3.5-5.1 [facility] Comment on above: Performed By: #### B [id number] #### [facility] [address] [place] [address] Dr. Jessie Lomax Protein [Mass/Vol] 7.5 g/dL Normal 6.4-8.2 [facility] Comment on above: Performed By: #### B [id number] #### [facility] [address] [place] [address] Dr. Jessie Lomax Sodium [Moles/Vol] 141 mmol/L Normal 136-145 [facility] Comment on above: Performed By: #### B [id number] #### [facility] [address] [address] [address] Jessie Lomax Urea nitrogen [Mass/Vol] 23.0 mg/dL Critically high 7.0-18.0 [facility] Comment on above: Performed By: #### B [id number] #### [facility] [address] [address] [address] Jessie Lomax Urea nitrogen/Creatinine [Mass ratio] 20.2 mg/mg Normal [facility] Comment on above: Performed By: #### B [id number] #### [facility] [address] [place] [address] Dr. Jessie Lomax THEOPHYLLINEon 08-29-2022 THEOPHYLLINE <2.0 Critically low 10.0-20.0 [facility] Comment on above: Performed By: #### B [id number] #### [facility] [address] [place] [address] Dr. Jessie Lomax XR CHEST 1 Von [...] YADIRA BALLESTEROS Date: 2022-08-29 02:03 Normal [facility] ACETONE SERUMon 08-17-2022 ACETONE Negative Normal NEGATIVE [facility] Comment on above: Performed By: #### A CETON #### [facility] [address] [place] [address] Dr. Jessie Lomax BNPon 08-17-2022 Natriuretic peptide B (Bld) [Mass/Vol] 294.0 pg/mL Normal <=900.0 [facility] Comment on above: Performed By: #### A CETON #### [facility] [address] [place] [address] Dr. Jessie Lomax CBC AUTO DIFFon 08-17-2022 BASO # 0.1 103/ul Normal 0.0-0.1 [facility] Comment on above: Performed By: #### C BC #### [facility] [address] [place] [address] Dr. Jessie Lomax Basophils/100 WBC (Bld) 0.7 % Normal 0.2-2.0 [facility] Comment on above: Performed By: #### C BC #### [facility] [address] [place] [address] Dr. Jessie Lomax EO # 0.1 103/ul Normal 0.0-0.7 [facility] Comment on above: Performed By: #### C BC #### [facility] [address] [place] [address] Dr. Jessie Lomax Eosinophils/100 WBC (Bld) 0.9 % Normal 0.9-7.0 [facility] Comment on above: Performed By: #### C BC #### [facility] [address] [place] [address] Dr. Jessie Lomax Erythrocyte distribution width (RBC) [Ratio] 13.4 % Normal 11.0-15.0 [facility] Comment on above: Performed By: #### C BC #### [facility] [address] [place] [address] Dr. Jessie Lomax Hematocrit (Bld) [Volume fraction] 43.2 % Normal 42.0-54.0 [facility] Comment on above: Performed By: #### C BC #### [facility] [address] [place] [address] Dr. Jessie Lomax Hemoglobin (Bld) [Mass/Vol] 14.5 g/dL Normal 14.0-18.0 [facility] Comment on above: Performed By: #### C BC #### [facility] [address] [place] [address] Dr. Jessie Lomax IG # 0.04 10e3/ul Critically high 0.00-0.03 [facility] Comment on above: Performed By: #### C BC #### [facility] [address] [place] [address] Dr. Jessie Lomax IG % 0.5 % Normal 0.0-0.5 [facility] Comment on above: Performed By: #### C BC #### [facility] [address] [place] [address] Dr. Jessie Lomax LYMPH # 1.9 103/ul Normal 1.2-3.8 [facility] Comment on above: Performed By: #### C BC #### [facility] [address] [place] [address] Dr. Jessie Lomax Lymphocytes/100 WBC (Bld) 22.1 % Normal 20.5-60.0 [facility] Comment on above: Performed By: #### C BC #### [facility] [address] [place] [address] Dr. Jessie Lomax MANUAL DIFF REQ NO Normal [facility] Comment on above: Performed By: #### C BC #### [facility] [address] [place] [address] Dr. Jessie Lomax MCH (RBC) [Entitic mass] 30.7 pg Normal 25.9-34.0 [facility] Comment on above: Performed By: #### C BC #### [facility] [address] [place] [address] Dr. Jessie Lomax MCHC (RBC) [Mass/Vol] 33.6 g/dL Normal 29.9-35.2 [facility] Comment on above: Performed By: #### C BC #### [facility] [address] [place] [address] Dr. Jessie Lomax MCV (RBC) [Entitic vol] 91.5 fL Normal 80.0-94.0 [facility] Comment on above: Performed By: #### C BC #### [facility] [address] [place] [address] Dr. Jessie Lomax MONO # 0.7 103/ul Normal 0.3-0.8 [facility] Comment on above: Performed By: #### C BC #### [facility] [address] [place] [address] Dr. Jessie Lomax Monocytes/100 WBC (Bld) 7.7 % Normal 1.7-12.0 [facility] Comment on above: Performed By: #### C BC #### [facility] [address] [place] [address] Dr. Jessie Lomax NEUT # 5.8 103/ul Normal 1.4-6.5 [facility] Comment on above: Performed By: #### C BC #### [facility] [address] [place] [address] Dr. Jessie Lomax Neutrophils/100 WBC (Bld) 68.1 % Normal 43.0-75.0 [facility] Comment on above: Performed By: #### C BC #### [facility] [address] [place] [address] Dr. Jessie Lomax Platelet mean volume (Bld) [Entitic vol] 9.0 fL Critically low 9.5-13.5 [facility] Comment on above: Performed By: #### C BC #### [facility] [address] [place] [address] Dr. Jessie Lomax PLT 275 103/ul Normal 150-450 [facility] Comment on above: Performed By: #### C BC #### [facility] [address] [place] [address] Dr. Jessie Lomax RBC 4.72 106/ul Normal 4.70-6.10 [facility] Comment on above: Performed By: #### C BC #### [facility] [address] [place] [address] Dr. Jessie Lomax WBC 8.6 103/ul Normal 4.0-11.0 [facility] Comment on above: Performed By: #### C BC #### [facility] [address] [place] [address] Dr. Jessie Lomax CTA CHEST WO W [...] DAVID GIBBS Date: 2022-08-17 17:23 Normal [facility] CULTURE BLOODon 08-17-2022 Microscopic examination of blood, culture Culture Observations: NO GROWTH AT 5 DAYS. Normal [facility] Comment on above: Performed By: #### C MP #### [facility] [address] [place] [address] Dr. Jessie Lomax Microscopic examination of blood, culture Culture Observations: NO GROWTH AT 5 DAYS. Normal [facility] Comment on above: Performed By: #### B [id number] #### [facility] [address] [place] [address] Dr. Jessie Lomax [facility] SARS-CoV-2 (COVID-19) RNA YOLANDA+probe Ql (Unsp spec) Not detected Normal NOT DETECTED [facility] Comment on above: Result Comment: When diagnostic [...] for this test is supported by the Investigative Reporter of Health and Human Service's declaration that [...] used). Performed By: #### C BC #### [facility] [address] [place] [address] Dr. Jessie Lomax LACTATE/LACTIC ACIDon 2022 Lactate [Moles/Vol] 2.0 mmol/L Critically high 0.4-1.9 [facility] Comment on above: Performed By: #### C BC #### [facility] [address] [place] [address] Dr. Jessie Lomax PH VENOUS BLOODon 08-17-2022 PCO2 VENOUS 44.5 mmHg Normal 40.0-52.0 [facility] Comment on above: Performed By: #### C BC #### [facility] [address] [place] [address] Dr. Jessie Lomax pH VENOUS 7.433 Critically high 7.330-7.43 0 [facility] Comment on above: Performed By: #### C BC #### [facility] [address] [place] [address] Dr. Jessie Lomax PROF 14(COMP METB)on 023 Albumin [Mass/Vol] 3.4 g/dL Normal 3.4-5.0 [facility] Comment on above: Performed By: #### C BC #### [facility] [address] [place] [address] Dr. Jessie Lomax Albumin/Globulin [Mass ratio] 1.1 {ratio} Normal [facility] Comment on above: Performed By: #### C BC #### [facility] [address] [place] [address] Dr. Jessie Lomax ALP [Catalytic activity/Vol] 90 U/L Normal 46-116 [facility] Comment on above: Performed By: #### C BC #### [facility] [address] [address] [address] Jessie Lomax ALT [Catalytic activity/Vol] 26 U/L Normal 16-63 [facility] Comment on above: Performed By: #### C BC #### [facility] [address] [address] [address] Jessie Lomax Anion gap [Moles/Vol] 11.1 mmol/L Normal [facility] Comment on above: Performed By: #### C BC #### [facility] [address] [address] [address] Jessie Lomax AST [Catalytic activity/Vol] 9 U/L Critically low 15-37 [facility] Comment on above: Performed By: #### C BC #### [facility] [address] [place] [address] Dr. Jessie Lomax Bilirubin [Mass/Vol] 0.2 mg/dL Normal 0.2-1.0 [facility] Comment on above: Performed By: #### C BC #### [facility] [address] [address] [address] Jessie Lomax Calcium [Mass/Vol] 9.0 mg/dL Normal 8.5-10.1 [facility] Comment on above: Performed By: #### C BC #### [facility] [address] [place] [address] Dr. Jessie Lomax Chloride [Moles/Vol] 103 mmol/L Normal 98-107 [facility] Comment on above: Performed By: #### C BC #### [facility] [address] [address] [address] Jessie Lomax CO2 [Moles/Vol] 31.5 mmol/L Normal 21.0-32.0 [facility] Comment on above: Performed By: #### C BC #### [facility] [address] [place] [address] Dr. Jessie Lomax Creatinine [Mass/Vol] 0.94 mg/dL Normal 0.70-1.30 [facility] Comment on above: Performed By: #### C BC #### [facility] [address] [address] [address] Jessie Lomax EGFR-AF COLOMBIAN >60 Normal >=60 [facility] Comment on above: Performed By: #### C BC #### [facility] [address] [address] [address] Jessie Lomax EGFR-NON AF COLOMBIAN >60 Normal >=60 [facility] Comment on above: Performed By: #### C BC #### [facility] [address] [place] [address] Dr. Jessie Lomax Globulin (S) [Mass/Vol] 3.2 g/dL Normal [facility] Comment on above: Performed By: #### C BC #### [facility] [address] [place] [address] Dr. Jessie Lomax Glucose [Mass/Vol] 124 mg/dL Critically high 74-106 [facility] Comment on above: Performed By: #### C BC #### [facility] [address] [place] [address] Dr. Jessie Lomax Potassium [Moles/Vol] 3.6 mmol/L Normal 3.5-5.1 [facility] Comment on above: Performed By: #### C BC #### [facility] [address] [place] [address] Dr. Jessie Lomax Protein [Mass/Vol] 6.6 g/dL Normal 6.4-8.2 [facility] Comment on above: Performed By: #### C BC #### [facility] [address] [place] [address] Dr. Jessie Lomax Sodium [Moles/Vol] 142 mmol/L Normal 136-145 [facility] Comment on above: Performed By: #### C BC #### [facility] [address] [place] [address] Dr. Jessie Lomax Urea nitrogen [Mass/Vol] 14.0 mg/dL Normal 7.0-18.0 [facility] Comment on above: Performed By: #### C BC #### [facility] [address] [place] [address] Dr. Jessie Lomax Urea nitrogen/Creatinine [Mass ratio] 14.9 mg/mg Normal [facility] Comment on above: Performed By: #### C BC #### [facility] [address] [place] [address] Dr. Jessie Lomax PROTIMEon 08-17-2022 INR Coag (PPP) [Relative time] {INR} Normal [facility] Comment on above: Performed By: #### B LDCX1 #### [facility] [address] [place] [address] Dr. Jessie Lomax INR GUIDELINES SEE BELOW Normal [facility] Comment on above: Result Comment: VANESSA RED INR: 2.0 - 3.0 CONDITIONS NOT LISTED BELOW 2.5 - 3.5 FOR PROSTHETIC HEART VALVE REPLACEMENT 2.5 - 3.5 RECURRENT THROMBOSIS Performed By: #### B LDCX1 #### [facility] [address] [place] [address] Dr. Jessie Lomax PT Coag (PPP) [Time] 9.7 s Normal 9.0-11.6 [facility] Comment on above: Performed By: #### B LDCX1 #### [facility] [address] [place] [address] Dr. Jessie Lomax PTTon 08-17-2022 aPTT Coag (Bld) [Time] 23.4 s Normal 22.3-36.2 [facility] Comment on above: Performed By: #### B LDCX1 #### [facility] [address] [place] [address] Dr. Jessie Lomax TROPONIN, HIGH SENSITIVITYon 08-17-2022 HSTROP 14.6 pg/mL Normal 4.0-76.1 [facility] Comment on above: Result Comment: CUT- OFF POINTS HAVE BEEN ESTABLISHED BASED ON THE FOURTH UNIVERSAL DEFINITIONS OF MYOCARDIAL INFARCTION. THE UPPER REFERENCE LIMIT (URL) OF TROPONIN, DEFINED THE 99TH PERCENTILE OF cTnI DISTRIBUTION IN A REFERENCE POPULATION, HAS BEEN CONFIRMED THE DECISION THRESHOLD FOR [place] DIAGNOSIS. Performed By: #### A CETON #### [facility] [address] [place] [address] Dr. Jessie Lomax TSHon 08-17-2022 TSH 1.079 uIU/mL Normal 0.358-3.74 0 [facility] Comment on above: Performed By: #### C BC #### [facility] [address] [place] [address] Dr. Jessie Lomax THEOPHYLLINEon 08-10-2022 THEOPHYLLINE 11.3 ug/mL Normal 10.0-20.0 [facility] Comment on above: Performed By: #### T TYLER #### [facility] [address] [place] [address] Dr. Jessie Lomax CBC AUTO DIFFon 07-02-2022 BASO # 0.0 103/ul Normal 0.0-0.1 [facility] Comment on above: Performed By: #### T TYLER #### [facility] [address] [place] [address] Dr. Jessie Lomax Basophils/100 WBC (Bld) 0.1 % Critically low 0.2-2.0 [facility] Comment on above: Performed By: #### T TYLER #### [facility] [address] [place] [address] Dr. Jessie Lomax EO # 0.0 103/ul Normal 0.0-0.7 [facility] Comment on above: Performed By: #### T TYLER #### [facility] [address] [place] [address] Dr. Jessie Lomax Eosinophils/100 WBC (Bld) 0.1 % Critically low 0.9-7.0 [facility] Comment on above: Performed By: #### T TYLER #### [facility] [address] [place] [address] Dr. Jessie Lomax Erythrocyte distribution width (RBC) [Ratio] 13.6 % Normal 11.0-15.0 [facility] Comment on above: Performed By: #### T TYLER #### [facility] [address] [place] [address] Dr. Jessie Lomax Hematocrit (Bld) [Volume fraction] 44.4 % Normal 42.0-54.0 [facility] Comment on above: Performed By: #### T TYLER #### [facility] [address] [address] [address] Jessie Lomax Hemoglobin (Bld) [Mass/Vol] 14.9 g/dL Normal 14.0-18.0 [facility] Comment on above: Performed By: #### T TYLER #### [facility] [address] [address] [address] Jessie Lomax IG # 0.11 10e3/ul Critically high 0.00-0.03 [facility] Comment on above: Performed By: #### T TYLER #### [facility] [address] [place] [address] Dr. Jessie Lomax IG % 0.7 % Critically high 0.0-0.5 [facility] Comment on above: Performed By: #### T TYLER #### [facility] [address] [place] [address] Dr. Jessie Lomax LYMPH # 0.8 103/ul Critically low 1.2-3.8 [facility] Comment on above: Performed By: #### T TYLER #### [facility] [address] [place] [address] Dr. Jessie Lomax Lymphocytes/100 WBC (Bld) 5.1 % Critically low 20.5-60.0 [facility] Comment on above: Performed By: #### T TYLER #### [facility] [address] [place] [address] Dr. Jessie Lomax MANUAL DIFF REQ NO Normal [facility] Comment on above: Performed By: #### T TYLER #### [facility] [address] [place] [address] Dr. Jessie Lomax MCH (RBC) [Entitic mass] 31.1 pg Normal 25.9-34.0 [facility] Comment on above: Performed By: #### T TYLER #### [facility] [address] [place] [address] Dr. Jessie Lomax MCHC (RBC) [Mass/Vol] 33.6 g/dL Normal 29.9-35.2 [facility] Comment on above: Performed By: #### T TYLER #### [facility] [address] [address] [address] Jessie Lomax MCV (RBC) [Entitic vol] 92.7 fL Normal 80.0-94.0 [facility] Comment on above: Performed By: #### T TYLER #### [facility] [address] [place] [address] Dr. Jessie Lomax MONO # 0.4 103/ul Normal 0.3-0.8 [facility] Comment on above: Performed By: #### T TYLER #### [facility] [address] [place] [address] Dr. Jessie Lomax Monocytes/100 WBC (Bld) 2.6 % Normal 1.7-12.0 [facility] Comment on above: Performed By: #### T TYLER #### [facility] [address] [place] [address] Dr. Jessie Lomax NEUT # 13.8 103/ul Critically high 1.4-6.5 [facility] Comment on above: Performed By: #### T TYLER #### [facility] [address] [place] [address] Dr. Jessie Lomax Neutrophils/100 WBC (Bld) 91.4 % Critically high 43.0-75.0 [facility] Comment on above: Performed By: #### T TYLER #### [facility] [address] [place] [address] Dr. Jessie Lomax Platelet mean volume (Bld) [Entitic vol] 9.9 fL Normal 9.5-13.5 [facility] Comment on above: Performed By: #### T TYLER #### [facility] [address] [place] [address] Dr. Jessie Lomax PLT 300 103/ul Normal 150-450 [facility] Comment on above: Performed By: #### T TYLER #### [facility] [address] [place] [address] Dr. Jessie Lomax RBC 4.79 106/ul Normal 4.70-6.10 [facility] Comment on above: Performed By: #### T TYLER #### [facility] [address] [address] [address] Jessie Lomax WBC 15.1 103/ul Critically high 4.0-11.0 [facility] Comment on above: Performed By: #### T TYLER #### [facility] [address] [place] [address] Dr. Jessie Lomax POINT OF CARE GLUCOSEon 06-17 Glucose [Mass/Vol] 288 mg/dL Critically high 74-106 [facility] Comment on above: Performed By: #### C BC #### [facility] [address] [place] [address] Dr. Jessie Lomax Glucose [Mass/Vol] 280 mg/dL Critically high 74-106 [facility] Comment on above: Performed By: #### T TYLER #### [facility] [address] [place] [address] Dr. Jessie Lomax PROF 14(COMP METB)on 022 Albumin [Mass/Vol] 3.7 g/dL Normal 3.4-5.0 [facility] Comment on above: Performed By: #### C MP #### [facility] [address] [place] [address] Dr. Jessie Lomax Albumin/Globulin [Mass ratio] 1.1 {ratio} Normal [facility] Comment on above: Performed By: #### C MP #### [facility] [address] [place] [address] Dr. Jessie Lomax ALP [Catalytic activity/Vol] 73 U/L Normal 46-116 [facility] Comment on above: Performed By: #### C MP #### [facility] [address] [place] [address] Dr. Jessie Lomax ALT [Catalytic activity/Vol] 22 U/L Normal 16-63 [facility] Comment on above: Performed By: #### C MP #### [facility] [address] [place] [address] Dr. Jessie Lomax Anion gap [Moles/Vol] 13.4 mmol/L Normal [facility] Comment on above: Performed By: #### C MP #### [facility] [address] [address] [address] Jessie Lomax AST [Catalytic activity/Vol] 16 U/L Normal 15-37 [facility] Comment on above: Performed By: #### C MP #### [facility] [address] [place] [address] Dr. Jessie Lomax Bilirubin [Mass/Vol] 0.3 mg/dL Normal 0.2-1.0 [facility] Comment on above: Performed By: #### C MP #### [facility] [address] [place] [address] Dr. Jessie Lomax Calcium [Mass/Vol] 9.3 mg/dL Normal 8.5-10.1 [facility] Comment on above: Performed By: #### C MP #### [facility] [address] [place] [address] Dr. Jessie Lomax Chloride [Moles/Vol] 98 mmol/L Normal 98-107 [facility] Comment on above: Performed By: #### C MP #### [facility] [address] [place] [address] Dr. Jessie Lomax CO2 [Moles/Vol] 29.9 mmol/L Normal 21.0-32.0 [facility] Comment on above: Performed By: #### C MP #### [facility] [address] [place] [address] Dr. Jessie Lomax Creatinine [Mass/Vol] 1.18 mg/dL Normal 0.70-1.30 [facility] Comment on above: Performed By: #### C MP #### [facility] [address] [place] [address] Dr. Jessie Lomax EGFR-AF COLOMBIAN >60 Normal >=60 [facility] Comment on above: Performed By: #### C MP #### [facility] [address] [place] [address] Dr. Jessie Lomax EGFR-NON AF COLOMBIAN >60 Normal >=60 [facility] Comment on above: Performed By: #### C MP #### [facility] [address] [place] [address] Dr. Jessie Lomax Globulin (S) [Mass/Vol] 3.3 g/dL Normal [facility] Comment on above: Performed By: #### C MP #### [facility] [address] [address] [address] Jessie Lomax Glucose [Mass/Vol] 329 mg/dL Critically high 74-106 [facility] Comment on above: Performed By: #### C MP #### [facility] [address] [address] [address] Jessie Lomax Potassium [Moles/Vol] 4.3 mmol/L Normal 3.5-5.1 [facility] Comment on above: Performed By: #### C MP #### [facility] [address] [address] [address] Jessie Lomax Protein [Mass/Vol] 7.0 g/dL Normal 6.4-8.2 [facility] Comment on above: Performed By: #### C MP #### [facility] [address] [place] [address] Dr. Jessie Lomax Sodium [Moles/Vol] 137 mmol/L Normal 136-145 [facility] Comment on above: Performed By: #### C MP #### [facility] [address] [place] [address] Dr. Jessie Lomax Urea nitrogen [Mass/Vol] 21.0 mg/dL Critically high 7.0-18.0 [facility] Comment on above: Performed By: #### C MP #### [facility] [address] [place] [address] Dr. Jessie Lomax Urea nitrogen/Creatinine [Mass ratio] 17.8 mg/mg Normal [facility] Comment on above: Performed By: #### C MP #### [facility] [address] [address] [address] Jessie Lomax CBC W MANUAL DIFFon 07-01-20 22 ATYPICAL LYMPH # Normal [facility] Comment on above: Performed By: #### C BC #### [facility] [address] [place] [address] Dr. Jessie Lomax ATYPICAL LYMPH % Normal [facility] Comment on above: Performed By: #### C BC #### [facility] [address] [place] [address] Dr. Jessie Lomax BAND # 0.1 103/ul Normal 0.0-0.3 [facility] Comment on above: Performed By: #### C BC #### [facility] [address] [place] [address] Dr. Jessie Lomax BAND % 1 % Normal 0-5 [facility] Comment on above: Performed By: #### C BC #### [facility] [address] [place] [address] Dr. Jessie Lomax BASOM # 0.00 103/ul Normal 0.00-0.10 [facility] Comment on above: Performed By: #### C BC #### [facility] [address] [place] [address] Dr. Jessie Lomax BASOM % 0.0 % Critically low 0.2-2.0 [facility] Comment on above: Performed By: #### C BC #### [facility] [address] [place] [address] Dr. Jessie Lomax BLAST # Normal [facility] Comment on above: Performed By: #### C BC #### [facility] [address] [place] [address] Dr. Jessie Lomax BLAST % Normal [facility] Comment on above: Performed By: #### C BC #### [facility] [address] [place] [address] Dr. Jessie Lomax CORRECTED WBC Normal 4.0-11.0 [facility] Comment on above: Performed By: #### C BC #### [facility] [address] [place] [address] Dr. Jessie Lomax EOS # 0.12 103/ul Normal 0.00-0.70 [facility] Comment on above: Performed By: #### C BC #### [facility] [address] [place] [address] Dr. Jessie Lomax EOS% 1.0 % Normal 0.9-7.0 [facility] Comment on above: Performed By: #### C BC #### [facility] [address] [place] [address] Dr. Jessie Lomax HCT 45.4 % Normal 42.0-54.0 [facility] Comment on above: Performed By: #### C BC #### [facility] [address] [place] [address] Dr. Jessie Lomax HGB 15.5 g/dl Normal 14.0-18.0 [facility] Comment on above: Performed By: #### C BC #### [facility] [address] [place] [address] Dr. Jessie Lomax LYMPHM # 0.48 103/ul Critically low 1.20-3.80 [facility] Comment on above: Performed By: #### C BC #### [facility] [address] [place] [address] Dr. Jessie Lomax LYMPHM% 4.0 % Critically low 20.5-60.0 [facility] Comment on above: Performed By: #### C BC #### [facility] [address] [place] [address] Dr. Jessie Lomax MCH 31.8 pg Normal 25.9-34.0 [facility] Comment on above: Performed By: #### C BC #### [facility] [address] [place] [address] Dr. Jessie Lomax MCHC 34.1 g/dl Normal 29.9-35.2 [facility] Comment on above: Performed By: #### C BC #### [facility] [address] [place] [address] Dr. Jessie Lomax MCV 93.0 fL Normal 80.0-94.0 [facility] Comment on above: Performed By: #### C BC #### [facility] [address] [place] [address] Dr. Jessie Lomax METAMYELOCYTE # Normal [facility] Comment on above: Performed By: #### C BC #### [facility] [address] [place] [address] Dr. Jessie Lomax METAMYELOCYTE % Normal [facility] Comment on above: Performed By: #### C BC #### [facility] [address] [place] [address] Dr. Jessie Lomax MONOM# 0.24 103/ul Critically low 0.30-0.80 [facility] Comment on above: Performed By: #### C BC #### [facility] [address] [place] [address] Dr. Jessie Lomax MONOM% 2.0 % Normal 1.7-12.0 [facility] Comment on above: Performed By: #### C BC #### [facility] [address] [place] [address] Dr. Jessie Lomax MPV 9.6 fL Normal 9.5-13.5 [facility] Comment on above: Performed By: #### C BC #### [facility] [address] [place] [address] Dr. Jessie Lomax MYELOCYTE # Normal [facility] Comment on above: Performed By: #### C BC #### [facility] [address] [place] [address] Dr. Jessie Lomax MYELOCYTE % Normal [facility] Comment on above: Performed By: #### C BC #### [facility] [address] [place] [address] Dr. Jessie Lomax NRBC Normal [facility] Comment on above: Performed By: #### C BC #### [facility] [address] [place] [address] Dr. Jessie Lomax PLT 300 103/ul Normal 150-450 [facility] Comment on above: Performed By: #### C BC #### [facility] [address] [place] [address] Dr. Jessie Lomax RBC 4.88 106/ul Normal 4.70-6.10 [facility] Comment on above: Performed By: #### C BC #### [facility] [address] [place] [address] Dr. Jessie Lomax RDW 13.5 % Normal 11.0-15.0 [facility] Comment on above: Performed By: #### C BC #### [facility] [address] [place] [address] Dr. Jessie Lomax SEG # 10.95 103/ul Critically high 1.40-6.50 [facility] Comment on above: Performed By: #### C BC #### [facility] [address] [place] [address] Dr. Jessie Lomax SEG % 92.0 % Critically high 43.0-75.0 [facility] Comment on above: Performed By: #### C BC #### [facility] [address] [place] [address] Dr. Jessie Lomax WBC 11.9 103/ul Critically high 4.0-11.0 [facility] Comment on above: Performed By: #### C BC #### [facility] [address] [place] [address] Dr. Jessie Lomax POINT OF CARE GLUCOSEon 06-17 Glucose [Mass/Vol] 428 mg/dL Critically high 74-106 [facility] Comment on above: Performed By: #### A CETON #### [facility] [address] [place] [address] Dr. Jessie Lomax Glucose [Mass/Vol] 337 mg/dL Critically high 74-106 [facility] Comment on above: Performed By: #### B [id number] #### [facility] [address] [place] [address] Dr. Jessie Lomax Glucose [Mass/Vol] 233 mg/dL Critically high 74-106 [facility] Comment on above: Performed By: #### B LDCX1 #### [facility] [address] [place] [address] Dr. Jessie Lomax PROF 14(COMP METB)on 022 Albumin [Mass/Vol] 3.7 g/dL Normal 3.4-5.0 [facility] Comment on above: Performed By: #### C MP #### [facility] [address] [place] [address] Dr. Jessie Lomax Albumin/Globulin [Mass ratio] 1.1 {ratio} Normal [facility] Comment on above: Performed By: #### C MP #### [facility] [address] [place] [address] Dr. Jessie Lomax ALP [Catalytic activity/Vol] 86 U/L Normal 46-116 [facility] Comment on above: Performed By: #### C MP #### [facility] [address] [place] [address] Dr. Jessie Lomax ALT [Catalytic activity/Vol] 20 U/L Normal 16-63 [facility] Comment on above: Performed By: #### C MP #### [facility] [address] [place] [address] Dr. Jessie Lomax Anion gap [Moles/Vol] 13.8 mmol/L Normal [facility] Comment on above: Performed By: #### C MP #### [facility] [address] [place] [address] Dr. Jessie Lomax AST [Catalytic activity/Vol] 10 U/L Critically low 15-37 [facility] Comment on above: Performed By: #### C MP #### [facility] [address] [place] [address] Dr. Jessie Lomax Bilirubin [Mass/Vol] 0.3 mg/dL Normal 0.2-1.0 [facility] Comment on above: Performed By: #### C MP #### [facility] [address] [place] [address] Dr. Jessie Lomax Calcium [Mass/Vol] 9.3 mg/dL Normal 8.5-10.1 [facility] Comment on above: Performed By: #### C MP #### [facility] [address] [place] [address] Dr. Jessie Lomax Chloride [Moles/Vol] 101 mmol/L Normal 98-107 [facility] Comment on above: Performed By: #### C MP #### [facility] [address] [place] [address] Dr. Jessie Lomax CO2 [Moles/Vol] 27.0 mmol/L Normal 21.0-32.0 [facility] Comment on above: Performed By: #### C MP #### [facility] [address] [place] [address] Dr. Jessie Lomax Creatinine [Mass/Vol] 1.15 mg/dL Normal 0.70-1.30 [facility] Comment on above: Performed By: #### C MP #### [facility] [address] [address] [address] Jessie Lomax EGFR-AF COLOMBIAN >60 Normal >=60 [facility] Comment on above: Performed By: #### C MP #### [facility] [address] [place] [address] Dr. Jessie Lomax EGFR-NON AF COLOMBIAN >60 Normal >=60 [facility] Comment on above: Performed By: #### C MP #### [facility] [address] [address] [address] Jessie Lomax Globulin (S) [Mass/Vol] 3.5 g/dL Normal [facility] Comment on above: Performed By: #### C MP #### [facility] [address] [place] [address] Dr. Jessie Lomax Glucose [Mass/Vol] 284 mg/dL Critically high 74-106 [facility] Comment on above: Performed By: #### C MP #### [facility] [address] [place] [address] Dr. Jessie Lomax Potassium [Moles/Vol] 4.8 mmol/L Normal 3.5-5.1 [facility] Comment on above: Performed By: #### C MP #### [facility] [address] [place] [address] Dr. Jessie Lomax Protein [Mass/Vol] 7.2 g/dL Normal 6.4-8.2 [facility] Comment on above: Performed By: #### C MP #### [facility] [address] [place] [address] Dr. Jessie Lomax Sodium [Moles/Vol] 137 mmol/L Normal 136-145 [facility] Comment on above: Performed By: #### C MP #### [facility] [address] [place] [address] Dr. Jessie Lomax Urea nitrogen [Mass/Vol] 22.0 mg/dL Critically high 7.0-18.0 [facility] Comment on above: Performed By: #### C MP #### [facility] [address] [place] [address] Dr. Jessie Lomax Urea nitrogen/Creatinine [Mass ratio] 19.1 mg/mg Normal [facility] Comment on above: Performed By: #### C MP #### [facility] [address] [place] [address] Dr. Jessie Lomax ACETONE SERUMon 06-30-2022 ACETONE Negative Normal NEGATIVE [facility] Comment on above: Performed By: #### A CETON #### [facility] [address] [place] [address] Dr. Jessie Lomax BNPon 06-30-2022 Natriuretic peptide B (Bld) [Mass/Vol] 45.0 pg/mL Normal <=900.0 [facility] Comment on above: Performed By: #### T TYLER #### [facility] [address] [place] [address] Dr. Jessie Lomax CBC AUTO DIFFon 06-30-2022 BASO # 0.1 103/ul Normal 0.0-0.1 [facility] Comment on above: Performed By: #### C MP #### [facility] [address] [place] [address] Dr. Jessie Lomax Basophils/100 WBC (Bld) 0.9 % Normal 0.2-2.0 [facility] Comment on above: Performed By: #### C MP #### [facility] [address] [place] [address] Dr. Jessie Lomax EO # 0.1 103/ul Normal 0.0-0.7 [facility] Comment on above: Performed By: #### C MP #### [facility] [address] [place] [address] Dr. Jessie Lomax Eosinophils/100 WBC (Bld) 0.9 % Normal 0.9-7.0 [facility] Comment on above: Performed By: #### C MP #### [facility] [address] [place] [address] Dr. Jessie Lomax Erythrocyte distribution width (RBC) [Ratio] 13.4 % Normal 11.0-15.0 [facility] Comment on above: Performed By: #### C MP #### [facility] [address] [place] [address] Dr. Jessie Lomax Hematocrit (Bld) [Volume fraction] 47.0 % Normal 42.0-54.0 [facility] Comment on above: Performed By: #### C MP #### [facility] [address] [place] [address] Dr. Jessie Lomax Hemoglobin (Bld) [Mass/Vol] 16.0 g/dL Normal 14.0-18.0 [facility] Comment on above: Performed By: #### C MP #### [facility] [address] [place] [address] Dr. Jessie Lomax IG # 0.05 10e3/ul Critically high 0.00-0.03 [facility] Comment on above: Performed By: #### C MP #### [facility] [address] [place] [address] Dr. Jessie Lomax IG % 0.5 % Normal 0.0-0.5 [facility] Comment on above: Performed By: #### C MP #### [facility] [address] [place] [address] Dr. Jessie Lomax LYMPH # 2.0 103/ul Normal 1.2-3.8 [facility] Comment on above: Performed By: #### C MP #### [facility] [address] [place] [address] Dr. Jessie Lomax Lymphocytes/100 WBC (Bld) 20.1 % Critically low 20.5-60.0 [facility] Comment on above: Performed By: #### C MP #### [facility] [address] [place] [address] Dr. Jessie Lomax MANUAL DIFF REQ NO Normal [facility] Comment on above: Performed By: #### C MP #### [facility] [address] [place] [address] Dr. Jessie Lomax MCH (RBC) [Entitic mass] 31.5 pg Normal 25.9-34.0 [facility] Comment on above: Performed By: #### C MP #### [facility] [address] [address] [address] Jessie Lomax MCHC (RBC) [Mass/Vol] 34.0 g/dL Normal 29.9-35.2 [facility] Comment on above: Performed By: #### C MP #### [facility] [address] [address] [address] Jessie Lomax MCV (RBC) [Entitic vol] 92.5 fL Normal 80.0-94.0 [facility] Comment on above: Performed By: #### C MP #### [facility] [address] [address] [address] Jessie Lomax MONO # 0.7 103/ul Normal 0.3-0.8 [facility] Comment on above: Performed By: #### C MP #### [facility] [address] [place] [address] Dr. Jessie Lomax Monocytes/100 WBC (Bld) 6.8 % Normal 1.7-12.0 [facility] Comment on above: Performed By: #### C MP #### [facility] [address] [place] [address] Dr. Jessie Lomax NEUT # 6.9 103/ul Critically high 1.4-6.5 [facility] Comment on above: Performed By: #### C MP #### [facility] [address] [place] [address] Dr. Jessie Lomax Neutrophils/100 WBC (Bld) 70.8 % Normal 43.0-75.0 [facility] Comment on above: Performed By: #### C MP #### [facility] [address] [place] [address] Dr. Jessie Lomax Platelet mean volume (Bld) [Entitic vol] 9.5 fL Normal 9.5-13.5 [facility] Comment on above: Performed By: #### C MP #### [facility] [address] [place] [address] Dr. Jessie Lomax PLT 308 103/ul Normal 150-450 [facility] Comment on above: Performed By: #### C MP #### [facility] [address] [place] [address] Dr. Jessie Lomax RBC 5.08 106/ul Normal 4.70-6.10 [facility] Comment on above: Performed By: #### C MP #### [facility] [address] [place] [address] Dr. Jessie Lomax WBC 9.7 103/ul Normal 4.0-11.0 [facility] Comment on above: Performed By: #### C MP #### [facility] [address] [place] [address] Dr. Jessie Lomax CULTURE BLOODon 06-30-2022 Microscopic examination of blood, culture Culture Observations: NO GROWTH AT 5 DAYS. Normal [facility] Comment on above: Performed By: #### B LDCX2 #### [facility] [address] [place] [address] Dr. Jessie Lomax Microscopic examination of blood, culture Culture Observations: NO GROWTH AT 5 DAYS. Normal [facility] Comment on above: Performed By: #### B LDCX1 #### [facility] [address] [place] [address] Dr. Jessie Lomax [facility] SARS-CoV-2 (COVID-19) RNA YOLANDA+probe Ql (Unsp spec) Not detected Normal NOT DETECTED [facility] Comment on above: Result Comment: When [...] for this test is supported by the Investigative Reporter of Health and Human Service's declaration that [...] used). Performed By: #### B [id number] #### [facility] [address] [place] [address] Dr. Jessie Lomax D-DIMERon 06-30-2022 D-DIMER 0.26 mg/L FEU Normal <=0.59 [facility] Comment on above: Performed By: #### C BC #### [facility] [address] [place] [address] Dr. Jessie Lomax D-DIMER COMMENTS SEE BELOW Normal [facility] Comment on above: Result Comment: Incr eases [...] hospitalization. Performed By: #### C BC #### [facility] [address] [place] [address] Dr. Jessie Lomax LACTATE/LACTIC ACIDon 2021 Lactate [Moles/Vol] 1.7 mmol/L Normal 0.4-1.9 [facility] Comment on above: Performed By: #### B [id number] #### [facility] [address] [place] [address] Dr. Jessie Lomax PH VENOUS BLOODon 06-30-2022 PCO2 VENOUS 54.1 mmHg Critically high 40.0-52.0 [facility] Comment on above: Performed By: #### B [id number] #### [facility] [address] [place] [address] Dr. Jessie Lomax pH VENOUS 7.323 Critically low 7.330-7.43 0 [facility] Comment on above: Performed By: #### B [id number] #### [facility] [address] [place] [address] Dr. Jessie Lomax PROF 14(COMP METB)on 022 Albumin [Mass/Vol] 3.9 g/dL Normal 3.4-5.0 [facility] Comment on above: Performed By: #### T TYLER #### [facility] [address] [address] [address] Jessie Lomax Albumin/Globulin [Mass ratio] 1.1 {ratio} Normal [facility] Comment on above: Performed By: #### T TYLER #### [facility] [address] [address] [address] Jessie Lomax ALP [Catalytic activity/Vol] 96 U/L Normal 46-116 [facility] Comment on above: Performed By: #### T TYLER #### [facility] [address] [address] [address] Jessie Lomax ALT [Catalytic activity/Vol] 19 U/L Normal 16-63 [facility] Comment on above: Performed By: #### T TYLER #### [facility] [address] [place] [address] Dr. Jessie Lomax Anion gap [Moles/Vol] 4.5 mmol/L Normal [facility] Comment on above: Performed By: #### T TYLER #### [facility] [address] [place] [address] Dr. Jessie Lomax AST [Catalytic activity/Vol] 13 U/L Critically low 15-37 [facility] [facility] Comment on above: Performed By: #### T TYLER #### [facility] [address] [place] [address] Dr. Jessie Lomax Bilirubin [Mass/Vol] 0.4 mg/dL Normal 0.2-1.0 [facility] Comment on above: Performed By: #### T TYLER #### [facility] [address] [address] [address] Jessie Lomax Calcium [Mass/Vol] 9.2 mg/dL Normal 8.5-10.1 [facility] Comment on above: Performed By: #### T TYLER #### [facility] [address] [address] [address] Jessie Lomax Chloride [Moles/Vol] 103 mmol/L Normal 98-107 [facility] Comment on above: Performed By: #### T TYLER #### [facility] [address] [address] [address] Jessie Lomax CO2 [Moles/Vol] 26.3 mmol/L Normal 21.0-32.0 [facility] Comment on above: Performed By: #### T TYLER #### [facility] [address] [address] [address] Jessie Lomax Creatinine [Mass/Vol] 1.06 mg/dL Normal 0.70-1.30 [facility] Comment on above: Performed By: #### T TYLER #### [facility] [address] [place] [address] Dr. Jessie Lomax EGFR-AF COLOMBIAN >60 Normal >=60 [facility] Comment on above: Performed By: #### T TYLER #### [facility] [address] [place] [address] Dr. Jessie Lomax EGFR-NON AF COLOMBIAN >60 Normal >=60 [facility] Comment on above: Performed By: #### T TYLER #### [facility] [address] [place] [address] Dr. Jessie Lomax Globulin (S) [Mass/Vol] 3.5 g/dL Normal [facility] Comment on above: Performed By: #### T TYLER #### [facility] [address] [place] [address] Dr. Jessie Lomax Glucose [Mass/Vol] 221 mg/dL Critically high 74-106 [facility] Comment on above: Performed By: #### T TYLER #### [facility] [address] [place] [address] Dr. Jessie Lomax Potassium [Moles/Vol] 4.6 mmol/L Normal 3.5-5.1 [facility] Comment on above: Performed By: #### T TYLER #### [facility] [address] [place] [address] Dr. Jessie Lomax Protein [Mass/Vol] 7.4 g/dL Normal 6.4-8.2 [facility] Comment on above: Performed By: #### T TYLER #### [facility] [address] [place] [address] Dr. Jessie Lomax Sodium [Moles/Vol] 138 mmol/L Normal 136-145 [facility] Comment on above: Performed By: #### T TYLER #### [facility] [address] [place] [address] Dr. Jessie Lomax Urea nitrogen [Mass/Vol] 23.0 mg/dL Critically high 7.0-18.0 [facility] Comment on above: Performed By: #### T TYLER #### [facility] [address] [place] [address] Dr. Jessie Lomax Urea nitrogen/Creatinine [Mass ratio] 20.2 mg/mg Normal [facility] Comment on above: Performed By: #### T TYLER #### [facility] [address] [place] [address] Dr. Jessie Lomax PROTIMEon 06-30-2022 INR Coag (PPP) [Relative time] 0.93 {INR} Normal [facility] Comment on above: Performed By: #### A CETON #### [facility] [address] [place] [address] Dr. Jessie Lomax INR GUIDELINES SEE BELOW Normal [facility] Comment on above: Result Comment: VANESSA RED INR: 2.0 - 3.0 CONDITIONS NOT LISTED BELOW 2.5 - 3.5 FOR PROSTHETIC HEART VALVE REPLACEMENT 2.5 - 3.5 RECURRENT THROMBOSIS Performed By: #### A CETON #### [facility] [address] [place] [address] Dr. Jessie Lomax PT Coag (PPP) [Time] 10.1 s Normal 9.0-11.6 [facility] Comment on above: Performed By: #### A CETON #### [facility] [address] [place] [address] Dr. Jessie Lomax PTTon 06-30-2022 aPTT Coag (Bld) [Time] 25.1 s Normal 22.3-36.2 [facility] Comment on above: Performed By: #### B [id number] #### [facility] [address] [place] [address] Dr. Jessie Lomax TROPONIN, HIGH SENSITIVITYon 06-30-2022 HSTROP 11.4 pg/mL Normal 4.0-76.1 [facility] Comment on above: Result Comment: CUT- OFF POINTS HAVE BEEN ESTABLISHED BASED ON THE FOURTH UNIVERSAL DEFINITIONS OF MYOCARDIAL INFARCTION. THE UPPER REFERENCE LIMIT (URL) OF TROPONIN, DEFINED THE 99TH PERCENTILE OF cTnI DISTRIBUTION IN A REFERENCE POPULATION, HAS BEEN CONFIRMED THE DECISION THRESHOLD FOR [place] DIAGNOSIS. Performed By: #### T TYLER #### [facility] [address] [place] [address] Dr. Jessie Lomax XR CHEST 1 Von [...] SOLA SHELL Date: 2022-06-30 21:00 Normal [facility] BNPon 05-02-2022 Natriuretic peptide B (Bld) [Mass/Vol] 90.0 pg/mL Normal <=900.0 [facility] Comment on above: Performed By: #### B [id number] #### [facility] [address] [place] [address] Dr. Jessie Lomax CARDIAC JUSTINE ADMITon 022 CK [Catalytic activity/Vol] 84 U/L Normal 39-308 [facility] Comment on above: Performed By: #### B [id number] #### [facility] [address] [place] [address] Dr. Jessie Lomax CK.MB [Mass/Vol] 3.74 ng/mL Critically high <=3.60 [facility] Comment on above: Performed By: #### B [id number] #### [facility] [address] [place] [address] Dr. Jessie Lomax HSTROP 14.1 pg/mL Normal 4.0-76.1 [facility] Comment on above: Result Comment: CUT- OFF POINTS HAVE BEEN ESTABLISHED BASED ON THE FOURTH UNIVERSAL DEFINITIONS OF MYOCARDIAL INFARCTION. THE UPPER REFERENCE LIMIT (URL) OF TROPONIN, DEFINED THE 99TH PERCENTILE OF cTnI DISTRIBUTION IN A REFERENCE POPULATION, HAS BEEN CONFIRMED THE DECISION THRESHOLD FOR [place] DIAGNOSIS. Performed By: #### B [id number] #### [facility] [address] [place] [address] Dr. Jessie Lomax HERLINDA 55 ng/mL Normal 16-96 [facility] Comment on above: Performed By: #### B [id number] #### [facility] [address] [place] [address] Dr. Jessie Lomax CBC AUTO DIFFon 05-02-2022 BASO # 0.1 103/ul Normal 0.0-0.1 [facility] Comment on above: Performed By: #### C BC #### [facility] [address] [place] [address] Dr. Jessie Lomax Basophils/100 WBC (Bld) 0.5 % Normal 0.2-2.0 [facility] Comment on above: Performed By: #### C BC #### [facility] [address] [place] [address] Dr. Jessie Lomax EO # 0.0 103/ul Normal 0.0-0.7 [facility] Comment on above: Performed By: #### C BC #### [facility] [address] [place] [address] Dr. Jessie Lomax Eosinophils/100 WBC (Bld) 0.3 % Critically low 0.9-7.0 [facility] Comment on above: Performed By: #### C BC #### [facility] [address] [place] [address] Dr. Jessie Lomax Erythrocyte distribution width (RBC) [Ratio] 13.6 % Normal 11.0-15.0 [facility] Comment on above: Performed By: #### C BC #### [facility] [address] [place] [address] Dr. Jessie Lomax Hematocrit (Bld) [Volume fraction] 46.1 % Normal 42.0-54.0 [facility] Comment on above: Performed By: #### C BC #### [facility] [address] [place] [address] Dr. Jessie Lomax Hemoglobin (Bld) [Mass/Vol] 15.6 g/dL Normal 14.0-18.0 [facility] Comment on above: Performed By: #### C BC #### [facility] [address] [place] [address] Dr. Jessie Lomax IG # 0.07 10e3/ul Critically high 0.00-0.03 [facility] Comment on above: Performed By: #### C BC #### [facility] [address] [place] [address] Dr. Jessie Lomax IG % 0.6 % Critically high 0.0-0.5 [facility] Comment on above: Performed By: #### C BC #### [facility] [address] [place] [address] Dr. Jessie Lomax LYMPH # 2.0 103/ul Normal 1.2-3.8 [facility] Comment on above: Performed By: #### C BC #### [facility] [address] [place] [address] Dr. Jessie Lomax Lymphocytes/100 WBC (Bld) 16.0 % Critically low 20.5-60.0 [facility] Comment on above: Performed By: #### C BC #### [facility] [address] [place] [address] Dr. Jessie Lomax MANUAL DIFF REQ NO Normal [facility] Comment on above: Performed By: #### C BC #### [facility] [address] [place] [address] Dr. Jessie Lomax MCH (RBC) [Entitic mass] 31.7 pg Normal 25.9-34.0 [facility] Comment on above: Performed By: #### C BC #### [facility] [address] [place] [address] Dr. Jessie Lomax MCHC (RBC) [Mass/Vol] 33.8 g/dL Normal 29.9-35.2 [facility] Comment on above: Performed By: #### C BC #### [facility] [address] [place] [address] Dr. Jessie Lomax MCV (RBC) [Entitic vol] 93.7 fL Normal 80.0-94.0 [facility] Comment on above: Performed By: #### C BC #### [facility] [address] [place] [address] Dr. Jessie Lomax MONO # 0.8 103/ul Normal 0.3-0.8 [facility] Comment on above: Performed By: #### C BC #### [facility] [address] [place] [address] Dr. Jessie Lomax Monocytes/100 WBC (Bld) 6.2 % Normal 1.7-12.0 [facility] Comment on above: Performed By: #### C BC #### [facility] [address] [place] [address] Dr. Jessie Lomax NEUT # 9.5 103/ul Critically high 1.4-6.5 [facility] Comment on above: Performed By: #### C BC #### [facility] [address] [place] [address] Dr. Jessie Lomax Neutrophils/100 WBC (Bld) 76.4 % Critically high 43.0-75.0 [facility] Comment on above: Performed By: #### C BC #### [facility] [address] [place] [address] Dr. Jessie Lomax Platelet mean volume (Bld) [Entitic vol] 9.6 fL Normal 9.5-13.5 [facility] Comment on above: Performed By: #### C BC #### [facility] [address] [place] [address] Dr. Jessie Lomax PLT 338 103/ul Normal 150-450 [facility] Comment on above: Performed By: #### C BC #### [facility] [address] [place] [address] Dr. Jessie Lomax RBC 4.92 106/ul Normal 4.70-6.10 [facility] Comment on above: Performed By: #### C BC #### [facility] [address] [place] [address] Dr. Jessie Lomax WBC 12.4 103/ul Critically high 4.0-11.0 [facility] Comment on above: Performed By: #### C BC #### [facility] [address] [place] [address] Dr. Jessie Lomax Covid-19 PCR ([facility])on 04-17 SARS-CoV-2 (COVID-19) RNA YOLANDA+probe Ql (Unsp spec) Not detected Normal NOT DETECTED [facility] Comment on above: Result Comment: When diagnostic [...] for this test is supported by the [place] Health and Human Service's declaration that [...] used). Performed By: #### C MP #### [facility] [address] [place] [address] Dr. Jessie Lomax PROF 14(COMP METB)on 022 Albumin [Mass/Vol] 3.5 g/dL Normal 3.4-5.0 [facility] Comment on above: Performed By: #### B [id number] #### [facility] [address] [place] [address] Dr. Jessie Lomax Albumin/Globulin [Mass ratio] 1.0 {ratio} Normal [facility] Comment on above: Performed By: #### B [id number] #### [facility] [address] [place] [address] Dr. Jessie Lomax ALP [Catalytic activity/Vol] 104 U/L Normal 46-116 [facility] Comment on above: Performed By: #### B [id number] #### [facility] [address] [address] [address] Jessie Lomax ALT [Catalytic activity/Vol] 21 U/L Normal 16-63 [facility] Comment on above: Performed By: #### B [id number] #### [facility] [address] [address] [address] Jessie Lomax Anion gap [Moles/Vol] 11.7 mmol/L Normal [facility] Comment on above: Performed By: #### B [id number] #### [facility] [address] [address] [address] Jessie Lomax AST [Catalytic activity/Vol] U/L Critically low 15-37 [facility] Comment on above: Performed By: #### B [id number] #### [facility] [address] [place] [address] Dr. Jessie Lomax Bilirubin [Mass/Vol] 0.2 mg/dL Normal 0.2-1.0 [facility] Comment on above: Performed By: #### B [id number] #### [facility] [address] [place] [address] Dr. Jessie Lomax Calcium [Mass/Vol] 8.9 mg/dL Normal 8.5-10.1 [facility] Comment on above: Performed By: #### B [id number] #### [facility] [address] [place] [address] Dr. Jessie Lomax Chloride [Moles/Vol] 99 mmol/L Normal 98-107 [facility] Comment on above: Performed By: #### B [id number] #### [facility] [address] [address] [address] Jessie Lomax CO2 [Moles/Vol] 30.4 mmol/L Normal 21.0-32.0 [facility] Comment on above: Performed By: #### B [id number] #### [facility] [address] [address] [address] Jessie Lomax Creatinine [Mass/Vol] 1.29 mg/dL Normal 0.70-1.30 [facility] Comment on above: Performed By: #### B LDCX1 #### [facility] [address] [place] [address] Dr. Jessie Lomax EGFR-AF COLOMBIAN >60 Normal >=60 [facility] Comment on above: Performed By: #### B [id number] #### [facility] [address] [address] [address] Jessie Lomax EGFR-NON AF COLOMBIAN 56 mL/min/1.73m2 Critically low >=60 [facility] Comment on above: Performed By: #### B [id number] #### [facility] [address] [address] [address] Jessie Lomax Globulin (S) [Mass/Vol] 3.4 g/dL Normal [facility] Comment on above: Performed By: #### B LDCX1 #### [facility] [address] [place] [address] Dr. Jessie Lomax Glucose [Mass/Vol] 310 mg/dL Critically high 74-106 [facility] Comment on above: Performed By: #### B [id number] #### [facility] [address] [place] [address] Dr. Jessie Lomax Potassium [Moles/Vol] 4.1 mmol/L Normal 3.5-5.1 [facility] Comment on above: Performed By: #### B [id number] #### [facility] [address] [place] [address] Dr. Jessie Lomax Protein [Mass/Vol] 6.9 g/dL Normal 6.4-8.2 [facility] Comment on above: Performed By: #### B [id number] #### [facility] [address] [place] [address] Dr. Jessie Lomax Sodium [Moles/Vol] 137 mmol/L Normal 136-145 [facility] Comment on above: Performed By: #### B [id number] #### [facility] [address] [place] [address] Dr. Jessie Lomax Urea nitrogen [Mass/Vol] 16.0 mg/dL Normal 7.0-18.0 [facility] Comment on above: Performed By: #### B [id number] #### [facility] [address] [place] [address] Dr. Jessie Lomax Urea nitrogen/Creatinine [Mass ratio] 12.4 mg/mg Normal [facility] Comment on above: Performed By: #### B [id number] #### [facility] [address] [place], [place] [id number] Dr. Jessie Lomax PROTIMEon 05-02-2022 INR Coag (PPP) [Relative time] {INR} Normal [facility] Comment on above: Performed By: #### T TYLER #### [facility] [address] [place] [address] Dr. Jessie Lomax INR GUIDELINES SEE BELOW Normal [facility] Comment on above: Result Comment: VANESSA RED INR: 2.0 - 3.0 CONDITIONS NOT LISTED BELOW 2.5 - 3.5 FOR PROSTHETIC HEART VALVE REPLACEMENT 2.5 - 3.5 RECURRENT THROMBOSIS Performed By: #### T TYLER #### [facility] [address] [place] [address] Dr. Jessie Lomax PT Coag (PPP) [Time] 9.8 s Normal 9.0-11.6 [facility] Comment on above: Performed By: #### T TYLER #### [facility] [address] [place] [address] Dr. Jessie Lomax PTTon 05-02-2022 aPTT Coag (Bld) [Time] 23.0 s Normal 22.3-36.2 [facility] Comment on above: Performed By: #### T TYLER #### [facility] [address] [place] [address] Dr. Jessie Lomax XR CHEST 1 Von [...] GERARD ESPANA Date: 2022-05-02 08:55 Normal [facility] Covid-19 PCR (CVDTB)on 04-17 SARS-CoV-2 (COVID-19) RNA YOLANDA+probe Ql (Unsp spec) Not detected Normal NOT DETECTED [facility] Comment on above: Result Comment: This test is not yet approved or cleared by the [place] FDA. When there are no FDA-approved or cleared tests available, and other criteria are met, FDA can make tests available under an emergency access mechanism called an Emergency Use Authorization (EUA). The EUA for this test is supported by the [place] Health and Human Service's (HHS's) declaration [...] SARS-CoV-2. Performed By: #### A CETON #### [facility] [address] [place] [address] Dr. Jessie Lomax CBC AUTO DIFFon 03-19-2022 BASO # 0.0 103/ul Normal 0.0-0.1 [facility] Comment on above: Performed By: #### C BC #### [facility] [address] [place] [address] Dr. Jessie Lomax Basophils/100 WBC (Bld) 0.4 % Normal 0.2-2.0 [facility] Comment on above: Performed By: #### C BC #### [facility] [address] [place] [address] Dr. Jessie Lomax EO # 0.0 103/ul Normal 0.0-0.7 [facility] Comment on above: Performed By: #### C BC #### [facility] [address] [place] [address] Dr. Jessie Lomax Eosinophils/100 WBC (Bld) 0.1 % Critically low 0.9-7.0 [facility] Comment on above: Performed By: #### C BC #### [facility] [address] [place] [address] Dr. Jessie Lomax Erythrocyte distribution width (RBC) [Ratio] 13.6 % Normal 11.0-15.0 [facility] Comment on above: Performed By: #### C BC #### [facility] [address] [place] [address] Dr. Jessie Lomax Hematocrit (Bld) [Volume fraction] 47.4 % Normal 42.0-54.0 [facility] Comment on above: Performed By: #### C BC #### [facility] [address] [place] [address] Dr. Jessie Lomax Hemoglobin (Bld) [Mass/Vol] 16.0 g/dL Normal 14.0-18.0 [facility] Comment on above: Performed By: #### C BC #### [facility] [address] [place] [address] Dr. Jessie Lomax IG # 0.03 10e3/ul Normal 0.00-0.03 [facility] Comment on above: Performed By: #### C BC #### [facility] [address] [place] [address] Dr. Jessie Lomax IG % 0.3 % Normal 0.0-0.5 [facility] Comment on above: Performed By: #### C BC #### [facility] [address] [place] [address] Dr. Jessie Lomax LYMPH # 0.5 103/ul Critically low 1.2-3.8 [facility] Comment on above: Performed By: #### C BC #### [facility] [address] [place] [address] Dr. Jessie Lomax Lymphocytes/100 WBC (Bld) 5.4 % Critically low 20.5-60.0 [facility] Comment on above: Performed By: #### C BC #### [facility] [address] [place] [address] Dr. Jessie Lomax MANUAL DIFF REQ NO Normal [facility] Comment on above: Performed By: #### C BC #### [facility] [address] [address] [address] Jessie Lomax MCH (RBC) [Entitic mass] 31.7 pg Normal 25.9-34.0 [facility] Comment on above: Performed By: #### C BC #### [facility] [address] [place] [address] Dr. Jessie Lomax MCHC (RBC) [Mass/Vol] 33.8 g/dL Normal 29.9-35.2 [facility] Comment on above: Performed By: #### C BC #### [facility] [address] [place] [address] Dr. Jessie Lomax MCV (RBC) [Entitic vol] 93.9 fL Normal 80.0-94.0 [facility] Comment on above: Performed By: #### C BC #### [facility] [address] [place] [address] Dr. Jessie Lomax MONO # 0.2 103/ul Critically low 0.3-0.8 [facility] Comment on above: Performed By: #### C BC #### [facility] [address] [place] [address] Dr. Jessie Lomax Monocytes/100 WBC (Bld) 2.4 % Normal 1.7-12.0 [facility] Comment on above: Performed By: #### C BC #### [facility] [address] [place] [address] Dr. Jessie Lomax NEUT # 9.1 103/ul Critically high 1.4-6.5 [facility] Comment on above: Performed By: #### C BC #### [facility] [address] [place] [address] Dr. Jessie Lomax Neutrophils/100 WBC (Bld) 91.4 % Critically high 43.0-75.0 [facility] Comment on above: Performed By: #### C BC #### [facility] [address] [place] [address] Dr. Jessie Lomax Platelet mean volume (Bld) [Entitic vol] 9.5 fL Normal 9.5-13.5 [facility] Comment on above: Performed By: #### C BC #### [facility] [address] [address] [address] Jessie Lomax PLT 303 103/ul Normal 150-450 [facility] Comment on above: Performed By: #### C BC #### [facility] [address] [place] [address] Dr. Jessie Lomax RBC 5.05 106/ul Normal 4.70-6.10 [facility] Comment on above: Performed By: #### C BC #### [facility] [address] [address] [address] Jessie Lomax WBC 10.0 103/ul Normal 4.0-11.0 [facility] Comment on above: Performed By: #### C BC #### [facility] [address] [place] [address] Dr. Jessie Lomxa Covid-19 PCR (CVDTB)on SARS-CoV-2 (COVID-19) RNA YOLANDA+probe Ql (Unsp spec) Not detected Normal NOT DETECTED [facility] Comment on above: Result Comment: When diagnostic [...] for this test is supported by the [place] Health and Human Service's declaration that [...] used). Performed By: #### B LDCX1 #### [facility] [address] [place] [address] Dr. Jessie Lomax PROF 14(COMP METB)on 022 Albumin [Mass/Vol] 3.9 g/dL Normal 3.4-5.0 [facility] Comment on above: Performed By: #### C BC #### [facility] [address] [place] [address] Dr. Jessie Lomax Albumin/Globulin [Mass ratio] 1.1 {ratio} Normal [facility] Comment on above: Performed By: #### C BC #### [facility] [address] [place] [address] Dr. Jessie Lomax ALP [Catalytic activity/Vol] 81 U/L Normal 46-116 [facility] Comment on above: Performed By: #### C BC #### [facility] [address] [place] [address] Dr. Jessie Lomax ALT [Catalytic activity/Vol] 26 U/L Normal 16-63 [facility] Comment on above: Performed By: #### C BC #### [facility] [address] [place] [address] Dr. Jessie Lomax Anion gap [Moles/Vol] 14.5 mmol/L Normal [facility] Comment on above: Performed By: #### C BC #### [facility] [address] [place] [address] Dr. Jessie Lomax AST [Catalytic activity/Vol] 7 U/L Critically low 15-37 [facility] Comment on above: Performed By: #### C BC #### [facility] [address] [place] [address] Dr. Jessie Lomax Bilirubin [Mass/Vol] 0.3 mg/dL Normal 0.2-1.0 [facility] Comment on above: Performed By: #### C BC #### [facility] [address] [place] [address] Dr. Jessie Lomax Calcium [Mass/Vol] 9.2 mg/dL Normal 8.5-10.1 [facility] Comment on above: Performed By: #### C BC #### [facility] [address] [place] [address] Dr. Jessie Lomax Chloride [Moles/Vol] 101 mmol/L Normal 98-107 [facility] Comment on above: Performed By: #### C BC #### [facility] [address] [address] [address] Jessie Lomax CO2 [Moles/Vol] 26.1 mmol/L Normal 21.0-32.0 [facility] Comment on above: Performed By: #### C BC #### [facility] [address] [address] [address] Jessie Lomax Creatinine [Mass/Vol] 1.50 mg/dL Critically high 0.70-1.30 [facility] Comment on above: Performed By: #### C BC #### [facility] [address] [address] [address] Jessie Lomax EGFR-AF COLOMBIAN 57 mL/min/1.73m2 Critically low >=60 [facility] Comment on above: Performed By: #### C BC #### [facility] [address] [place] [address] Dr. Jessie Lomax EGFR-NON AF COLOMBIAN 47 mL/min/1.73m2 Critically low >=60 [facility] Comment on above: Performed By: #### C BC #### [facility] [address] [address] [address] Jessie Lomax Globulin (S) [Mass/Vol] 3.4 g/dL Normal [facility] Comment on above: Performed By: #### C BC #### [facility] [address] [address] [address] Jessie Lomax Glucose [Mass/Vol] 264 mg/dL Critically high 74-106 [facility] Comment on above: Performed By: #### C BC #### [facility] [address] [address] [address] Jessie Lomax Potassium [Moles/Vol] 4.6 mmol/L Normal 3.5-5.1 [facility] Comment on above: Performed By: #### C BC #### [facility] [address] [place] [address] Dr. Jessie Lomax Protein [Mass/Vol] 7.3 g/dL Normal 6.4-8.2 [facility] Comment on above: Performed By: #### C BC #### [facility] [address] [place], [place] [address] Dr. Jessie Lomax Sodium [Moles/Vol] 137 mmol/L Normal 136-145 [facility] Comment on above: Performed By: #### C BC #### [facility] [address], [place] [address] Dr. Jessie Lomax Urea nitrogen [Mass/Vol] 20.0 mg/dL Critically high 7.0-18.0 [facility] Comment on above: Performed By: #### C BC #### [facility] [address], [place] [address] Dr. Jessie Lomax Urea nitrogen/Creatinine [Mass ratio] 13.3 mg/mg Normal [facility] Comment on above: Performed By: #### C BC #### [facility] [address], [place] [address] Dr. Jessie Lomax XR CHEST 1 Von [...] GERARD WOLFF Date: 2022-03-19 00:11 Normal [facility] Cardi[facility] Lab Reporton 12-29-2018 Cardiovascular Lab Report [facility] Patient Name: Ricardo [facility] MR #: [id number] Physician: Calli Devlin, Department of M.D. Medicine Service Date: 12/28/2018 Division of Birthdate: 1960 Cardiology Room #: Adult Cardiovascular Services [place] [address] Cardiovascular Laboratory Report FINAL IMPRESSIONS: 1. Nonobstructive [...] 6. [facility] 2[facility]4 weeks. 7. Follow up with Dr. Cowart as scheduled. PROCEDURES: Ultrasound-guided access to the right common femoral vein and artery, right heart catheterization, bilateral selective coronary angiography, left heart catheterization, left ventriculography, limited femoral angiogram, placement of a 6-Somali MynxGrip closure device. METHODS: After risks, benefits, and alternatives were explained, written informed consent was obtained. The patient was prepped and draped in usual sterile fashion over the right groin. Using 1% lidocaine solution, local infiltration anesthesia was achieved. Using a modified Seldinger technique and under ultrasound guidance access to the right common femoral vein and artery was obtained and 6-Somali 11 cm sheath placed in each. Limited [...] the procedure. All catheters were removed. A 6-Somali MynxGrip closure device was deployed per protocol [...] Devlin M.D. Date Trans: 12/29/2018 04:14 Marek/rosetta [id number] cc: Calli Devlin M.D. [address] [facility] [address] ANNA NASH Normal [facility] [place] [facility] Vital Signs Date Time Vital Sign Value Performing Clinician Facility 04-15-2025 22:30-0400 Body height 175.26 cm Sarahalex Trivedi SIGN HANGER-BC Work Phone: [facility] 04-15-2025 22:30-0400 Body temperature 97.8 [degF] Sarah Shikha SIGN HANGER-BC Work Phone: [facility] 04-15-2025 22:30-0400 Body weight 112.3 kg Sarah Shikha SIGN HANGER-BC Work Phone: [facility] 04-15-2025 22:30-0400 Diastolic blood pressure 93 mm[Hg] Sarah Shikha SIGN HANGER-BC Work Phone: [facility] 04-15-2025 22:30-0400 Heart rate 100 /min Sarah Shikha SIGN HANGER-BC Work Phone: [facility] 04-15-2025 22:30-0400 Inhaled oxygen concentration 3 % Sarah Shikha SIGN HANGER-BC Work Phone: [facility] 04-15-2025 22:30-0400 Respiratory rate 20 /min Sarah Shikha SIGN HANGER-BC Work Phone: [facility] 04-15-2025 22:30-0400 SaO2% (BldA) [Mass fraction] 98 % Sarah Blakeann SIGN HANGER-BC Work Phone: [facility] 04-15-2025 22:30-0400 Systolic blood pressure 167 mm[Hg] Sarah Shikha SIGN HANGER-BC Work Phone: [facility] 04-15-2025 21:00-0400 Inhaled oxygen flow rate 3 L/min Sarah Shikha SIGN HANGER-BC Work Phone: [facility] 04-11-2025 22:07-0400 Body height 175.26 cm Sarah Shikha SIGN HANGER-BC Work Phone: [facility] 04-11-2025 22:07-0400 Body weight 108.86 kg Sarah Trivedi SIGN HANGER-BC Work Phone: [facility] 03-11-2025 13:27-0400 Body mass index (BMI) [Ratio] 34.69 kg/m2 Leslye Mclean MD Work Phone: [facility] 03-11-2025 13:27-0400 Body weight 106.59 kg Leslye Mclean MD Work Phone: [facility] 03-11-2025 13:27-0400 Diastolic blood pressure 84 mm[Hg] Leslye Mclean MD Work Phone: [facility] 03-11-2025 13:27-0400 Heart rate 113 /min Leslye Mclean MD Work Phone: [facility] 03-11-2025 13:27-0400 SaO2% (BldA) [Mass fraction] 97 % Leslye Mclean MD Work Phone: [facility] Comment on above: 3L 03-11-2025 13:27-0400 Systolic blood pressure 134 mm[Hg] Leslye Mclean MD Work Phone: [facility] 10-05-2024 13:44-0400 Heart rate 104 /min Pranay [...] Hospital 11-11-2023 14:15-0400 Body height 175.26 cm [facility] 11-11-2023 14:15-0400 Body mass index (BMI) [Ratio] 37 kg/m2 [facility] 11-11-2023 14:15-0400 Body weight 113.85 kg [facility] 11-11-2023 14:15-0400 Diastolic blood pressure 102 mm[Hg] [facility] 11-11-2023 14:15-0400 Heart rate 96 /min [facility] 11-11-2023 14:15-0400 SaO2% (BldA) [Mass fraction] 92 % [facility] 11-11-2023 14:15-0400 Systolic blood pressure 149 mm[Hg] [facility] 09-15-2023 11:02-0500 Body height 175.26 cm [facility] 09-15-2023 11:02-0500 Body mass index (BMI) [Ratio] 38.2 kg/m2 [facility] 09-15-2023 11:02-0500 Body weight 117.59 kg [facility] 09-15-2023 11:02-0500 Diastolic blood pressure 87 mm[Hg] [facility] 09-15-2023 11:02-0500 Heart rate 113 /min [facility] 09-15-2023 11:02-0500 SaO2% (BldA) [Mass fraction] 97 % [facility] 09-15-2023 11:02-0500 Systolic blood pressure 158 mm[Hg] [facility] 06-27-2023 11:00-0500 Body height 175.26 cm Bryon Cowart Other [facility] Other 06-27-2023 11:00-0500 Body mass index (BMI) [Ratio] 37.8 kg/m2 Bryon Cowart Other [facility] Other 06-27-2023 11:00-0500 Body weight 116.12 kg Bryon Cowart Other [facility] Other 06-27-2023 11:00-0500 Diastolic blood pressure 88 mm[Hg] Bryon Cowart Other [facility] Other 06-27-2023 11:00-0500 SaO2% (BldA) [Mass fraction] 92 % Bryon Cowart Other [facility] Other 06-27-2023 11:00-0500 Systolic blood pressure 134 mm[Hg] Bryon Cowart Other [facility] Other 03-03-2023 15:00-0400 Body height 175.26 cm Bryon Cowart Other [facility] Other 03-03-2023 15:00-0400 Body mass index (BMI) [Ratio] 38.69 kg/m2 Bryon Cowart Other [facility] Other 03-03-2023 15:00-0400 Body weight 118.84 kg Bryon Cowart Other [facility] Other 03-03-2023 15:00-0400 Diastolic blood pressure 82 mm[Hg] Bryon Cowart Other [facility] Other 03-03-2023 15:00-0400 Systolic blood pressure 157 mm[Hg] Bryon Cowart Other [facility] Other 12-30-2022 14:30-0400 Body height 175.26 cm Bryon Cowart Other [facility] Other 12-30-2022 14:30-0400 Body mass index (BMI) [Ratio] 39.57 kg/m2 Bryon Cowart Other [facility] Other 12-30-2022 14:30-0400 Body weight 121.56 kg Bryon Cowart Other [facility] Other 12-30-2022 14:30-0400 Diastolic blood pressure 85 mm[Hg] Bryon Cowart Other [facility] Other 12-30-2022 14:30-0400 SaO2% (BldA) [Mass fraction] 95 % Bryon Cowart Other [facility] Other 12-30-2022 14:30-0400 Systolic blood pressure 147 mm[Hg] Bryon Cowart Other [facility] Other 09-02-2022 14:00-0500 Body height 175.26 cm Bryon Cowart Other [facility] Other 09-02-2022 14:00-0500 Body mass index (BMI) [Ratio] 38.69 kg/m2 Bryon Cowart Other [facility] Other 09-02-2022 14:00-0500 Body weight 118.84 kg Bryon Cowart Other [facility] Other 09-02-2022 14:00-0500 Diastolic blood pressure 84 mm[Hg] Bryon Cowart Other [facility] Other 09-02-2022 14:00-0500 Respiratory rate 60 /min Bryon Cowart Other [facility] Other 09-02-2022 14:00-0500 SaO2% (BldA) [Mass fraction] 91 % Bryon Cowart Other [facility] Other 02-16-2023 14:00-0500 Systolic blood pressure 142 mm[Hg] Bryon Cowart Other [facility] [employer] Other Encounters Encounter Date Encounter Type Care Provider Facility Start: 03-19-2026 ambulatory Joo Jaimes ty:[facility] Start: 05-28-2025 ambulatory SARAH [facility] Start: 05-20-2025 ambulatory Joo Jaimes ty: Natasha Start: 04-30-2025 ambulatory Joo Jaimes ty:[id number] Start: 04-23-2025 End: 04-23-2025 ambulatory BRYON COWART Facility:[facility] Start: 04-19-2025 End: 04-19-2025 ambulatory SARAH TRIVEDI [facility] Start: 04-18-2025 ambulatory SARAH TRIVEDI Facili ty:[id number] Start: 04-15-2025 End: 04-17-2025 Evaluation and management of inpatient Serene Cho MD -[address] [place] [address] Med Surg Work Phone: Start: 04-15-2025 End: 04-15-2025 ambulatory Flora X Brech Facility: [place] Start: 04-15-2025 End: 04-15-2025 Patient encounter procedure Flora X Orzech [facility] Start: 04-11-2025 End: 04-11-2025 Patient encounter procedure [facility]oo Yip [facility] Work Phone: Start: 04-11-2025 End: 04-11-2025 ambulatory Sarah Trivedi [facility]- Work Phone: [facility] Work Phone: Start: 03-26-2025 End: 03-26-2025 Telephone encounter Leslye Mclean MD Work Phone: Pulmonary Medicine Comment on above: Patient Update Start: 03-26-2025 Non-patient / Non-visit Leslye Mclean MD -[facility] Work Phone: Start: 03-26-2025 End: 03-26-2025 ambulatory BRYON COWART Facility:[facility] Start: 03-24-2025 End: 03-25-2025 Follow-up encounter Leslye Mclean MD Work Phone: Pulmonary Medicine Start: 03-24-2025 End: 03-24-2025 Telephone encounter Leslye Mclean MD Work Phone: Pulmonary Medicine Start: 03-20-2025 End: 03-20-2025 Telephone encounter Leslye Mclean MD Work Phone: Pulmonary Medicine Start: 03-20-2025 End: 03-20-2025 ambulatory Joo YIP Facility:[facility] [place] Start: 03-20-2025 End: 03-20-2025 Patient encounter procedure Joo YIP [facility] Start: 03-19-2025 End: 03-19-2025 Telephone encounter Leslye Mclean MD Work Phone: Pulmonary Medicine Start: 03-13-2025 End: 03-13-2025 Telephone encounter Leslye Mclean MD Work Phone: [facility] Medicine Start: 03-12-2025 End: 03-12-2025 Telephone encounter Leslye Mclean MD Work Phone: Pulmonary Medicine Start: 03-11-2025 Non-patient / Non-visit Leslye Mclean MD -[facility] Work Phone: Start: 03-11-2025 End: 03-11-2025 ambulatory LESLYE MCLEAN Facility:[facility] Start: 03-11-2025 End: 03-11-2025 Patient encounter procedure Pulm Lab [facility] Work Phone: Pulmonary Medicine Comment on above: Spirometry Chronic obstructive pulmonary disease, unspecified COPD type (HCC) (Primary Dx); Chronic respiratory failure with hypoxia (HCC); Glafx-8-eytvxxcivxd deficiency (HCC); Chronic rhinitis; Obstructive sleep apnea (adult) (pediatric); Former smoker Start: 03-11-2025 End: 03-11-2025 Patient encounter procedure Pulm Lab [facility] 2 Work Phone: Pulmonary Medicine Comment on above: Spirometry Start: 03-11-2025 End: 03-11-2025 ambulatory LESLYE VINAY Facility:[facility] Start: 02-19-2025 End: 02-19-2025 ambulatory SARAH A SHIKHA Facility:[facility] Start: 02-19-2025 End: 02-19-2025 ambulatory CAREER COORDINATOR SARAH A SHIKHA Facility:[facility] [place] Start: 02-06-2025 ambulatory Joo YIP Facili ty:[facility] Start: 01-24-2025 End: 01-24-2025 ambulatory EHAB [facility] Start: 11-28-2024 End: 11-28-2024 ambulatory Joo YIP Facility:[facility] Start: 11-28-2024 End: 11-28-2024 Patient encounter procedure Joo YIP [facility] Antony Start: 11-01-2024 ambulatory SARAH SHIKHA Facility :[facility] Start: 10-25-2024 End: 10-25-2024 Lab Drop off SARAH A SHIKHA [facility] Start: 10-25-2024 End: 10-25-2024 ambulatory CAREER COORDINATOR SARAH A SHIKHA Facility:[facility] Start: 10-11-2024 End: 10-11-2024 ambulatory CAREER COORDINATOR SARAH A SHIKHA Facility:[facility] [place] Start: 10-08-2024 End: 10-26-2024 ambulatory CAREER COORDINATOR SARAH A SHIKHA Facility:[id number] Start: 10-04-2024 End: 10-05-2024 Evaluation and management of inpatient Pranay Bai MD Work Phone: [facility] [place] [facility] Work Phone: Start: 08-20-2024 Non-patient / Non-visit Pranay Bai MD Work Phone: [facility] Physician [facility] Work Phone: Start: 06-21-2024 End: 06-21-2024 ambulatory CAREER COORDINATOR SARAH A SHIKHA Facility:[facility] [place] Start: 06-19-2024 End: 06-19-2024 ambulatory CAREER COORDINATOR SARAH A SHIKHA Facility:[facility] [place] Start: 06-04-2024 End: 06-04-2024 ambulatory CAREER COORDINATOR SARAH A SHIKHA Facility:[facility] [place] Start: 05-22-2024 End: 05-22-2024 ambulatory CAREER COORDINATOR SARAH A SHIKHA Facility:[facility] [place] Start: 05-08-2024 End: 05-08-2024 ambulatory CAREER COORDINATOR SARAH A SHIKHA Facility:[facility] [place] Start: 04-30-2024 End: 05-14-2024 ambulatory CAREER COORDINATOR SARAH A SHIKHA Facility:[id number] Start: 04-24-2024 End: 04-24-2024 ambulatory CAREER COORDINATOR SARAH A SHIKHA Facility:[facility] [place] Start: 01-24-2024 End: 01-24-2024 Lab Drop off SARAH A SHIKHA [facility] Start: 11-11-2023 End: 11-11-2023 ambulatory [facility] Work Phone: Start: 11-11-2023 End: 11-11-2023 Patient encounter procedure [facility] Physician [facility] Work Phone: Start: 10-03-2023 Non-patient / Non-visit [facility] Physician [facility] Work Phone: Start: 09-15-2023 End: 09-15-2023 Patient encounter procedure [facility] Physician [facility] Work Phone: Start: 08-26-2023 End: 08-26-2023 ambulatory Bryon Cowart Other [facility] Other Start: 08-26-2023 Telephone encounter Bryon Cowart [facility] Start: 08-04-2023 End: 08-04-2023 ambulatory Bryon Cowart Other [facility] Other Start: 08-04-2023 Telephone encounter Bryon Cowart [facility] Start: 08-03-2023 End: 08-03-2023 ambulatory Bryon Cowart Other [facility] Other Start: 08-03-2023 Telephone encounter Bryon Cowart [facility] Start: 07-19-2023 End: 07-19-2023 ambulatory Bryon Cowart Other [facility] Other Start: 07-19-2023 Telephone encounter Bryon Cowart [facility] Start: 07-12-2023 End: 07-12-2023 ambulatory Bryon Cowart Other [facility] Other Start: 07-12-2023 Telephone encounter Bryon Cowart [facility] Start: 07-07-2023 End: 07-07-2023 ambulatory Bryon Cowart Other [facility] Other Start: 07-07-2023 Telephone encounter Bryon Cowart [facility] Start: 07-04-2023 End: 07-04-2023 ambulatory Bryon Cowart Other [facility] Other Start: 07-04-2023 Telephone encounter Bryon Cowart [facility] Start: 06-30-2023 End: 06-30-2023 ambulatory Bryon Cowart Other [facility] Other Start: 06-30-2023 Telephone encounter Bryon Cowart [facility] Start: 06-27-2023 End: 06-27-2023 ambulatory Bryon Cowart Other [facility] Other Start: 06-27-2023 Office outpatient vi sit 25 minutes Bryon Cowart [facility] Start: 06-27-2023 Telephone encounter Bryon Cowart [facility] Start: 06-24-2023 End: 06-24-2023 ambulatory Bryon Cowart Other [facility] Other Start: 06-24-2023 Telephone encounter Bryon Cowart [facility] Start: 06-13-2023 End: 06-13-2023 ambulatory Bryon Cowart Other [facility] Other Start: 06-13-2023 Telephone encounter Bryon Cowart [facility] Start: 06-03-2023 End: 06-03-2023 ambulatory Bryon Cowart Other [facility] Other Start: 06-03-2023 Telephone encounter Bryon Cowart [facility] Start: 05-31-2023 End: 05-31-2023 ambulatory Bryon Cowart Other [facility] Other Start: 05-31-2023 Telephone encounter Bryon Cowart [facility] Start: 05-09-2023 End: 05-09-2023 ambulatory Bryon Cowart Other [facility] Other Start: 05-09-2023 Telephone encounter Bryon Cowart [facility] Start: 04-25-2023 Telephone encounter Yaima Meraz RN Pulmonary Medicine Comment on above: Closing Referral Start: 04-13-2023 End: 04-13-2023 ambulatory Bryon Cowart Other [facility] Other Start: 04-13-2023 Telephone encounter Bryon Cowart [facility] Start: 03-14-2023 End: 03-14-2023 ambulatory Bryon Cowart Other [facility] Other Start: 03-14-2023 Telephone encounter Bryon Cowart [facility] Start: 03-11-2023 End: 03-11-2023 ambulatory Bryon Sofya Other [facility] Other Start: 03-11-2023 Telephone encounter Bryon Cowart [facility] Start: 03-10-2023 Telephone encounter Yaima Meraz RN Pulmonary Medicine Comment on above: Follow up on Lung Tr ansplant Referral Start: 03-08-2023 End: 03-08-2023 ambulatory Bryon Sofya Other [facility] Other Start: 03-08-2023 Telephone encounter Bryon Cowart [facility] Start: 03-03-2023 End: 03-03-2023 ambulatory Broyn Sofya Other [facility] Other Start: 03-03-2023 Office outpatient vi sit 15 minutes Bryon Cowart [facility] Start: 02-10-2023 End: 02-10-2023 ambulatory Bryon Sofya Other [facility] Other Start: 02-10-2023 Telephone encounter Bryon Cowart [facility] Start: 12-30-2022 End: 12-30-2022 ambulatory Bryon Sofya Other [facility] Other Start: 12-30-2022 Office outpatient vi sit 25 minutes Bryon Cowart [facility] Start: 12-30-2022 Telephone encounter Bryon Cowart [facility] Start: 12-22-2022 End: 12-22-2022 ambulatory Bryon Cowart Other [facility] Other Start: 12-22-2022 Telephone encounter Bryon Cowart [facility] Start: 11-12-2022 End: 11-12-2022 ambulatory Bryon Sofya Other [facility] Other Start: 11-12-2022 Telephone encounter Bryon Cowart [facility] Start: 10-12-2022 End: 10-12-2022 ambulatory Rubén Pina Other [facility] Other Start: 10-12-2022 Telephone encounter Rubén Pina [facility] Start: 10-05-2022 End: 10-05-2022 ambulatory Bryon Cowart Other [facility] Other Start: 10-05-2022 Telephone encounter Bryon Cowart [facility] Start: 10-03-2022 End: 10-04-[address] BRYON COWART Facility:[facility] Start: 09-27-2022 End: 09-27-2022 ambulatory Bryon Cowart Other [facility] Other Start: 09-27-2022 Telephone encounter Bryon Cowart [facility] Start: 09-15-2022 End: 09-15-2022 ambulatory Bryon Cowart Other [facility] Other Start: 09-15-2022 Telephone encounter Bryon Cowart [facility] Start: 09-02-2022 End: 09-02-2022 ambulatory Bryon Cowart Other [facility] Other Start: 09-02-2022 Office outpatient vi sit 15 minutes Bryon Cowart [facility] Start: 08-29-2022 End: 08-30-[address] EVERETTE MONTAGUE . Facility:[facility] Start: 08-20-2022 End: 08-20-2022 ambulatory Bryon Cowart Other [facility] Other Start: 08-20-2022 Telephone encounter Bryon Cowart [facility] Start: 08-17-2022 End: 08-17-2022 ambulatory SHAIKH Jose BANDA Facility:[facility] Start: 08-17-2022 ambulatory VANDA GONZALEZ . Facility :[facility] Start: 08-10-2022 End: 08-11-2022 ambulatory VANDA CHAPASA . Facility:[facility] Start: 08-09-2022 End: 08-09-2022 ambulatory Bryon Cowart Other [facility] Other Start: 08-09-2022 Telephone encounter Bryon Cowart [facility] Start: 07-22-2022 End: 07-22-2022 ambulatory Bryon Cowart Other [facility] [employer] Other Start: 07-22-2022 Telephone encounter Bryon Cowart [facility] Start: 07-01-2022 End: 07-02-[address] [...] Update Start: 11-04-2021 Telephone encounter Molly trinidad AUTO INSPECTOR.CAREER COORDINATOR Work Phone: Pulmonary Medicine Comment on above: Missed appointments Start: 11-03-2021 Orders Only Molly aguirre AUTO INSPECTOR.CAREER COORDINATOR Work Phone: Pulmonary Medicine Comment on above: Chronic obstructive pulmonary disease, unspecified COPD type (HCC) (Primary Dx); 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) Start: 12-28-2018 End: 12-29-2018 Patient encounter procedure CALLI DEVLIN Facility:[facility] Procedures Date Procedure Procedure Detail Performing Clinician Start: 04-15-2025 Plain chest X-ray Anabel Trivedi SIGN HANGER-BC Work Phone: Start: 04-15-2025 Respiratory Panel (PCR) Sarah Trivedi SIGN HANGER-BC Work Phone: Start: 04-11-2025 MR prostate wo/w con Sh wendie Trivedi SIGN HANGER-BC Work Phone: Start: 03-11-2025 Plethysmography lung volumes [...] [facility] Start: 04-15-2025 Hospital admission [facility] Start: 04-15-2025 [facility] Start: 04-11-2025 MR Prostate WO and W contrast IV [facility] Start: 04-11-2025 MR prostate wo/w con MR prostate wo/ w con [facility] Start: 03-24-2025 End: 06-23-2025 Theophylline [Mass/volume] in Serum or Plasma THEOPHYLLINE/AMINOPHYLL INE Lab Routine Adverse effect of theophylline Expected: 03/24/2025, Expires: 06/23/2025 [facility] Work Phone: Comment on above: Expected: 03/24/2025 , Expires: 06/23/2025 Start: 03-18-2025 Influenza vaccination Influenza Vacc ine (#1) [facility] Start: 11-04-2024 Advance Directive Discussion Advance Directive Discussion [facility] Start: 10-13-2024 [facility] Start: 10-12-2024 [...] [facility] Start: 10-04-2024 Hospital admission [facility] Start: 07-18-2024 Medicare Advantage Annual Wellness Visit Medicare Advantage Annual Wellness Visit [facility] Start: 03-18-2023 [facility] Start: 03-24-2022 Hepatitis B surface antibody level LDL CHOLESTEROL [facility] Start: 03-18-2022 Influenza vaccination INFLUENZ A (Season Ended) [facility] Start: 11-04-2021 End: 01-04-2022 HEPATITIS A ANTIBODY, IGG HEPATITIS A ANTIBODY, IGG Lab Routine Chronic obstructive pulmonary disease, unspecified COPD type (HCC) Lung transplant candidate Expected: 11/04/2021, Expires: 01/04/2022 [facility] Work Phone: Comment on above: Expected: 11/04/2021 , Expires: 01/04/2022 Start: 11-03-2021 End: 11-03-2022 ARTERIAL BLOOD GASES ARTERIAL BLOOD GASES Lab Routine Piyum-8-ayuiktvszla deficiency (HCC) Expected: 11/03/2021, Expires: 11/03/2022 [facility] Work Phone: Comment on above: Expected: 11/03/2021 , Expires: 11/03/2022 Start: 2019 RSV Vaccine (1 - Ris k 60-74 years 1-dose series) RSV Vaccine (1 - Risk 60-74 years 1-dose series) [facility] Start: 07-05-2018 Pneumococcal Vaccine : 50+ (2 of 2 - PPSV23, PCV20, or PCV21) Pneumococcal Vaccine: 50+ (2 of 2 - PPSV23, PCV20, or PCV21) [facility] Start: 11-04-2014 PROSTATE CANCER SCREENING DISCUSSION PROSTATE CANCER SCREENING DISCUSSION [facility] Start: 11-04-2009 SHINGRIX VACCINE (1 of 2) SHINGRIX VACCINE (1 of 2) [facility] Start: 11-04-2004 COLOGUARD (FIT-DNA) COLOGUARD (FIT-D NA) [facility] Start: 11-04-2004 Colonoscopy COLONOSCOPY [facility] Start: 11-04-2004 COLORECTAL CANCER SCREENING COLORECTAL CANCER SCREENING [facility] Start: 11-04-[address] COLONOGRAPHY [facility] Start: 11-04-2004 FECAL OCCULT BLOOD FECAL OCCULT BLOO D [facility] Start: 11-04-2004 Prostate specific antigen measurement Prostate Cancer Screening Discussion [facility] Start: 11-04-2004 Screening for malign ant neoplasm of colon [facility] Start: 11-04-2004 SIGMOIDOSCOPY SIGMOIDOSCOPY [facility] Start: 11-04-1989 Zoledronic acid therapy ALPHA- 1 ANTITRYPSIN DEFICIENCY SCREENING [facility] Start: 11-04-1978 ADULT PREVNAR-13 ADULT PREVNAR-13 Cl [facility] Start: 11-04-1978 HEPATITIS A (1 of 2 - Risk 2-dose series) HEPATITIS A (1 of 2 - Risk 2-dose series) [facility] Start: 11-04-1978 Hepatitis A Vaccine (1 of 2 - Risk 2-dose series) Hepatitis A Vaccine (1 of 2 - Risk 2-dose series) [facility] Start: 11-04-1978 SHINGRIX VACCINE (1 of 2) SHINGRIX VACCINE (1 of 2) [facility] Start: 11-04-1978 TWO PNEUMOVAX 5 YEAR S APART PRIOR TO AGE 65 (#1) TWO PNEUMOVAX 5 YEARS APART PRIOR TO AGE 65 (#1) [facility] Start: 11-04-1978 Urine microalbumin profile [facility] Start: 11-04-1977 ANNUAL PCP TEAM PER DIEM PHYSICAL THERAPIST SARAH DISEASE VISIT ANNUAL PCP TEAM CHRONIC DISEASE VISIT [facility] Start: 11-04-1977 Anxiety Screening Anxiety Screening [facility] Start: 11-04-1977 BP CONTROLLED (<130/80) BP CONTROLLE D (<130/80) [facility] Start: 11-04-1969 3 comp foot exam completed DIABETIC FOOT EXAM [facility] Start: 11-04-1969 Diabetic foot examination Diabetic Foot Exam [facility] Start: 11-04-1969 Glaucoma screening Dilated Retinal E xam [facility] Start: 11-04-1969 Hepatitis B screening URINE ALBUMIN:CREATININE RATIO [facility] Start: 11-04-1969 Hepatitis C antibody , confirmatory test DILATED RETINAL EXAM [facility] Start: 11-04-1965 PNEUMOCOCCAL (1 - PCV) PNEUMOCOCCAL (1 - PCV) [facility] Start: 11-04-1965 Pneumococcal vaccination Pneum ococcal Vaccine (1 - PCV) [facility] Start: 11-04-1964 COVID-19 VACCINE (1) COVID-19 VACCIN E (1) [facility] Start: 11-04-1964 Hemoglobin A1c measurement HbA1C [facility] Start: 11-04-1964 Hemoglobin A1c/Hemoglobin.total in Blood HBA1C [facility] Start: 11-04-1960 HEPATITIS A (1 of 2 - Risk 2-dose series) HEPATITIS A (1 of 2 - Risk 2-dose series) [facility] Start: 05-06-1960 COVID-19 VACCINE (#1) COVID-19 VACCI NE (#1) [facility] Start: 1960 Abdominal aortic aneurysm screening Abdominal Aortic Aneurysm Screening [facility] Anion gap measurement [facility] Basophils [#/volume] in Blood by Automated count [facility] Basophils/100 leukoc ytes in Blood by Automated count [facility] End: 04-10-2026 CT Chest WO contrast CT CHEST WO IVCON Radiology Routine Chronic obstructive pulmonary disease, unspecified COPD type (HCC) 1 Occurrences starting 03/11/2025 until 04/10/2026 [facility] Comment on above: 1 Occurrences starti ng [...] COPD type (HCC) 03/11/2025 12:26 PM EDT [facility] Work Phone: LUNG VOLUMES LUNG VOLUMES PFT Routine Chronic obstructive pulmonary disease, unspecified COPD type (HCC) 03/11/2025 2:24 PM EDT [facility] Work Phone: Lymphocytes [#/volum e] in Blood [...] Azithromycin ( Systemic) Cephalexin Know your Meds [facility] COVID-19 Discharge Instructions [facility] Work Phone: Patient referral [facility] Work Phone: Platelet mean volume [Entitic [...] (HCC) 1 Occurrences starting 03/11/2025 until 04/10/2026 [facility] Work Phone: Comment on above: 1 Occurrences starti ng 03/11/2025 until 04/10/2026 SPIROMETRY WITH DILA TOR IF OBSTRUCTED SPIROMETRY WITH DILATOR IF OBSTRUCTED PFT Routine Chronic obstructive pulmonary disease, unspecified COPD type (HCC) 03/11/2025 12:26 PM EDT [facility] Work Phone: [facility] Immunizations Immunization Date Immunization Notes Care Provider Yvette iniguez 04-30-2024 influenza virus vaccine, unspecified formulation SARAH SHIKHA [facility] 05-16-2020 influenza virus vaccine, unspecified formulation Yaima Meraz RN [facility] 05-10-2018 influenza virus vaccine, unspecified formulation SARAH TRIVEDI [facility] 05-10-2018 pneumococcal conjuga te vaccine, 13 valent SARAH TRIVEDI [facility] Payers Date Payer Category Payer Medicaid [id number] 2025 Medicare [id number] 2025 Medicare (Managed Care) [facility] [id number] 2025 Unknown [id number] 2024 Private Health Insurance [id number] 2024 Private Health Insurance [id number] 2023 Medicare [id number] 2022 Medicare [id number] .[id number] 2018 Unknown TEREZA SCHWAB PPO [id number] 2018-Present [phone] [facility] [id number] [place] [address] PPO [id number] 1.2.840.379805.1.13.159.2. 7.3.750418.315 2018 Unknown [id number]. 1.13.159.2. 7.3.317377.315 1959 Unknown [id number] 2.16.840.1.889637.3.579.2. 647 1959 Unknown [id number] 2.16.840.1.234903.3.579.2. 593 1959 Unknown [id number] 2.16.840.1.258414.3.579.2. 593 1959 Unknown [id number] 2.16.840.1.897819.3.579.2. 593 1959 Unknown [id number] 2.16.840.1.462365.3.579.2. 593 1959 Unknown [id number] 2.16.840.1.294387.3.579.2. 593 1959 Unknown [id number] 2.16.840.1.121000.3.579.2. 593 1959 Unknown [id number] 2.16.840.1.200201.3.579.2. 593 1959 Unknown [id number] 2.16.840.1.054259.3.579.2. 593 1959 Unknown [id number] 2.16.840.1.621300.3.579.2. 593 1959 Unknown [id number] 2.16.840.1.371794.3.579.2. 593 1959 Unknown [id number] 2.16.840.1.742943.3.579.2. 593 1959 Unknown [id number] 2.16.840.1.257639.3.579.2. 1959 Unknown [id number] 2.16.840.1.044756.3.579.2 1959 Unknown [id number] 2.16.840.1.531871.3.579.2 1959 Unknown [id number] 2.16.840.1.138778.3.579.2 1959 Unknown [id number] 2.16.840.1.013334.3.579.2 1959 Unknown [id number] 2.16.840.1.936484.3.579.2 1959 Unknown [id number] 2.16.840.1.703528.3.579.2 1959 Unknown [id number] 2.16.840.1.410649.3.579.2 1959 Unknown [id number] 2.16.840.1.456442.3.579.2 1959 Unknown [id number] 2.16.840.1.919584.3.579.2 1959 Unknown [id number] 2.16.840.1.611981.3.579.2 1959 Unknown [id number] 2.16.840.1.273736.3.579.2 1959 Unknown [id number] 2.16.840.1.179492.3.579.2 1959 Unknown [id number] 2.16.840.1.000769.3.579.2 1959 Unknown [id number] 2.16.840.1.116915.3.579.2 1959 Unknown [id number] 2.16.840.1.208511.3.579.2 1959 Unknown [id number] 2.16.840.1.847215.3.579.2. 727 1959 Unknown [id number] 2.16.840.1.679208.3.579.2. 727 1959 Unknown [id number] 2.16.840.1.704631.3.579.2. 727 1959 Unknown [id number] 2.16.840.1.943657.3.579.2. 727 1959 Unknown [id number] 2.16.840.1.511329.3.579.2. 727 1959 Unknown [id number] 2.16.840.1.394009.3.579.2. 727 1959 Unknown [id number] 2.16.840.1.084622.3.579.2. 727 1959 Unknown [id number] 2.16.840.1.393675.3.579.2. 727 1959 Private Health Insurance [id number] 2.16.840.1.048732.19 1959 Self-pay [id number] 1959 Self-pay 1959 Unknown [id number] 1959 Unknown [id number] Unknown [id number] Unknown [id number] 2.16.840.1.823538.3.579.2. 531 Unknown [id number] 2.16.840.1.290502.3.579.2. 531 Unknown [id number] 2.16.840.1.307670.3.579.2. 531 Social History Date Type Detail Facility Tobacco smoking stat [facility] Tobacco smoking consumption unknown [facility] Work Phone: Start: 1960 Sex Assigned At Not on file [facility] Start: 10-24-2021 End: 11-03-2021 Exposure to SARS-CoV-2 (event) Not sure [facility] Work Phone: Start: 03-18-2021 End: 03-11-2025 Sex Assigned At [facility] Start: 03-18-2021 End: 03-11-2025 History of Social function [facility] Start: 03-12-2020 National Score (1-10 0), lower number is lower risk Not on file [facility] [place] Comment on above: Patient is a former 2 pack a day smoker. Quit over 15 years ago. Start: 03-17-2021 Gender identity Identifies as male gender (finding) [facility] Start: 03-17-2021 Sexual orientation Heterosexual (fin ding) [facility] Start: 06-27-2023 End: 04-15-2025 Tobacco smoking status NHIS Ex-smoker (finding) [facility] Comment on above: Patient is a former 2 pack a day smoker. Quit over 15 years ago. Start: 1960 Sex Assigned At Male F [facility] Start: 10-04-2024 End: 12-24-2024 Sex Male (finding) [facility] Start: 10-05-2024 SDOH Follow up SDOH Follow up [facility] Work Phone: Sexual Orientation [facility] History of tobacco use Current sm[facility] History of tobacco use Cigarette Smoker [facility] Start: 03-18-2025 Tobacco Comment Almost 80 pack year smoker [facility] Goals Date Patient Goal Desired Activity /State Functional Status Date Assessment Result Facility 04-15-2025 Functional status Patient at [facility] Work Phone: 10-05-2024 Functional status Patient at [facility] Work Phone: Mental Status Date Assessment Result Facility 04-15-2025 Cognitive function Cognitive Sta tus Patient at Baseline [facility] Work Phone: 10-05-2024 Cognitive function Cognitive Sta tus Patient at Baseline [facility] Work Phone: Clinical Notes 11-04-2021 to 04-15-2025 Note Date & Type Note Facility 04-15-2025 History and physi lisa note Note Date/Time April 15, 2025 6:10pm [facility] [address] [place] [address] Hospitalist H&P Signed Patient: Ricardo Hylton MR#: [id number] : 1960 Acct:[id number] Age/Sex: 64 / M Adm Date: 5 Loc: ER Room: Type: [facility] ER Attending Dr: Copies to: ABRAHAM Cadena MD Shelly A Lehmann, [facility]-~ HPI DATE OF EXAMINATION: 04/15/25 CHIEF COMPLAINT: [...] negative unless noted below or in [facility]PI [facility] Oxygen dependent 3L CONTINUOUS Obstructive sleep apnea (adult) (pediatric) Hypertension History of left heart catheterization GERD (gastroesophageal reflux disease) Essential hypertension Diabetes type 2, controlled Depression Chronic obstructive pulmonary disease Centrilobular emphysema Anxiety, generalized Rcwpm-0-rlvextreoio deficiency Family History (Updated 04/15/25 @ 18:03 [...] % (Auto) 8.6 % (.) 04/15/25 14:55 Bennett % (Auto) 4.4 % (.) 04/15/25 14:55 Eos % (Auto) 0.3 % (.) 04/15/25 14:55 Baso % (Auto) 0.7 % (.) 04/15/25 14:55 Nucleat RBC Rel Count 0.1 /100 WBC (0-0.5) 04/15/25 14:55 Neut # (Auto) 8.3 x10E3/uL (1.8-7.7) H 04/15/25 14:55 Lymph # (Auto) 0.8 x10E3/uL (1.00-4.8) L 04/15/25 14:55 Bennett # (Auto) 0.4 x10E3/uL (0.0-0.8) 04/15/25 14:55 [...] <Electronically signed by Serene Cho MD> 04/15/251809 [facility] Work Phone: 1(195) 607-441309-29-2025 Evaluation note* Diagnosis Onset Date Resolution Status Admit Date Acute exacerbation of chroni c obstructive pulmonary disease (COPD) acute April 15, 2025 5:46pm [facility] Work Phone: 1(168) 687-544009-29-2025 [place] [address] Hospitalist H&P Signed Patient: Ricardo Hylton MR#: [id number] : 1960 Acct:[id number] Age/Sex: 64 / M Adm Date: 5 Loc: ER Room: Type: [facility] ER Attending Dr: Copies to: ABRAHAM Cadena MD Shelly A Lehmann, [facility]~ HPI DATE OF EXAMINATION: 04/15/25 CHIEF COMPLAINT: [...] negative unless noted below or in HPI [facility] Medical History Oxygen dependent 3L CONTINUOUS Obstructive sleep apnea (adult) (pediatric) Hypertension History of left heart catheterization GERD (gastroesophageal reflux disease) Essential hypertension Diabetes type 2, controlled Depression Chronic obstructive pulmonary disease Centrilobular emphysema Anxiety, generalized Oanwo-2-weyxguomlaw deficiency Family History (Updated 04/15/25 @ 18:03 [...] % (Auto) 8.6 % (.) 04/15/25 14:55 Bennett % (Auto) 4.4 % (.) 04/15/25 14:55 Eos % (Auto) 0.3 % (.) 04/15/25 14:55 Baso % (Auto) 0.7 % (.) 04/15/25 14:55 Nucleat RBC Rel Count 0.1 /100 WBC (0-0.5) 04/15/25 14:55 Neut # (Auto) 8.3 x10E3/uL (1.8-7.7) H 04/15/25 14:55 Lymph # (Auto) 0.8 x10E3/uL (1.00-4.8) L 04/15/25 14:55 Bennett # (Auto) 0.4 x10E3/uL (0.0-0.8) 04/15/25 14:55 [...] including vitamins, herbs, eye drops, creams, and xyqk-ean-hwufltf medicines. Any problems you or family members [...] provider tells you to take them. Taking ggkp-vqo-uqpkxod medicines, vitamins, herbs, and supplements. General instructions [...] provider. Document Revised: 12/28/2021 Document Reviewed: 12/28/2021 [employer] Patient Education 2023 [employer]. 04/15/2025 14:15:19 Prostate Cancer Screening Prostate Cancer [...] treatment? Where to find more information The [place] [employer]: www.cancer.org [place] [employer] Association: www.auanet.org Contact a health care [...] provider. Document Revised: 12/28/2021 Document Reviewed: 12/28/2021 [employer] Patient Education 2023 [employer]. Follow Up Care 04/12/2025 15:09:55 With:PHI GOSS, Joo Mendoza, URL Address: [address] [place], [place] [id number]- When: Unknown Comments:peter bx [facility] 09-29-2025 NotePatient Education Oncology Transrectal Ultrasound-Guided [...] including vitamins, herbs, eye drops, creams, and awlz-fiw-axmykuj medicines. ??? Any problems you or family [...] tells you to take them. ??? Taking zjgr-vbp-guvhsmk medicines, vitamins, herbs, and supplements. General instructions [...] the rectal area. ?? (more content not included)...[facility]09-09-2025 Telephone encounter Note* Telephone Encounter - Francisco Sosa LPN - 03/26/2025 12:48 PM EDT Called and spoke with pt, pt stated he will be heading to lab in [address] Mclean through [employer]. Will be sure to monitor for results. [facility]09-09-2025 Miscellaneous Notes* Telephone Encounter - Francisco Sosa LPN - 03/26/2025 12:48 PM EDT Called and spoke with pt, pt stated he will be heading to lab in [address] Mclean through [employer]. Will be sure to monitor for results. [...] Thanks Leslye Mclean MD documented in this encounterRegional [facility] Center09-[facility]-2025 Telephone encounter Note * Telephone Encounter - Leslye Mclean MD - 03/26/2025 12:27 PM EDT Please remind pt to get theophylline levels done today. I don't see the levels which was ordered for today His levels were high and if this persists to be high, he would need to be hospitalized for monitoring Please call him otto Thanks Leslye Mclean MD [facility]09-08-2025 Telephone encounter Note* Telephone Encounter - Sola Hoskins LPN - 03/25/2025 3:40 PM EDT Phones being out I sent a NoWaitt message reiterating to d/c medication [facility]09-08-2025 Miscellaneous Notes* Telephone Encounter - Sola Hoskins LPN - 03/25/2025 3:40 PM EDT Phones being out I sent a [employer]Wa[employer] message reiterating to d/c medication * Telephone [...] years and was prescribed by his previous supervisor assembly stock. High levels can be associated with neuro and cardiac toxicity Repeat lab to be done on Tuesday. He understands. 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 High levels can be associated with neuro and cardiac toxicity Repeat lab to be done on Tuesday. He understands. I also advised them to seek emergency medical assistance if he experiences any symptoms of side effects such as arrhythmias/ seizures/ nausea/ vomiting/ diarrhea / headaches Thanks Leslye Mclean MD [facility]09-03-2025 Hospital Discharge instructions Patient Education 03/20/2025 14:24:33 [...] treatment? Where to find more information The [place] [employer]: www.cancer.org [place] U[employer] Association: www.auanet.org Contact a health care [...] provider. Document Revised: 12/28/2021 Document Reviewed: 12/28/2021 [employer] Patient Education 2023 [employer]. Follow Up Care 11/28/2024 09:46:35 With:PHI GOSS, Joo Mendoza, URL Address: [facility] [address], [place] [address]- When: Unknown [facility] 09-03-2025 NotePatient Education Oncology Prostate [...] Where to find more information ??? The [place] Cancer Society: www.cancer.org ??? [place] [employer] Association: www.auanet.org Contact a health care [...] men. The prostate gland (more content not included)...[facility]09-03-2025 Telephone encounter Note* Telephone Encounter - Sola Hoskins LPN - 03/20/2025 12:17 PM EDT CPAP order faxed to [facility] via EPIC [facility]09-03-2025 Miscellaneous Notes* Telephone Encounter - Sola Hoskins LPN - 03/20/2025 12:17 PM EDT CPAP order faxed to [facility] via EPIC documented in this encounterRegional Medical Center09-02-2025 Telephone encounter Note * Telephone Encounter - Sola Hoskins LPN - 03/19/2025 12:08 PM EDT Images from the original note were not included. Message Received: Yesterday Leslye Mclean MD [facility]s fax note to patient's PCP thanks TAMMIE notes faced to Dr Cowart via [employer] [facility]09-02-2025 Miscellaneous Notes* Telephone Encounter - Sola Hoskins LPN - 03/19/2025 12:08 PM EDT Images from the original note were not included. Message Received: Yesterday Leslye Mclean MD [facility] Nurse Pls fax note to patient's PCP thanks TAMMIE notes faced to Dr Cowart via Epic documented in this encounterCleveland [id number] Telephone encounter Note * Telephone Encounter - Sola Hoskins LPN - 03/13/2025 3:54 PM EDT Images from the original note were not included. Message Received: 2 days ago Leslye Mclean MD [facility] Nurse Pls get pulmonary records from Dr. Gonzalez from [place] also get PFT echo and ct chest thanks Faxed CARLOS ENRIQUE request from [facility] with confirmation [facility]08-27-2025 Miscellaneous Notes* Telephone Encounter - Sola Hoskins LPN - 03/13/2025 3:54 PM EDT Images from the original note were not included. Message Received: 2 days ago Leslye Mclean MD [facility] Pulm Nurse Pls get pulmonary records from Dr. Gonzalez from [place] also get PFT echo and ct chest thanks Faxed CARLOS ENRIQUE request from [facility] with confirmation documented in this encounterRegional [facility] Center08-26-2025 Telephone encounter Note * Telephone Encounter - [...] lvm x1 for pt. Sent MCM x1 [facility]08-26-2025 Miscellaneous Notes* Telephone Encounter - Francisco Sosa [...] pt. Sent MCM x1 documented in this encounterRegional Medical Center08-25-2025 Instructions* Patient Instructions* Leslye Mclean MD - [...] You have a follow-up appointment with your street supervisor, Dr. Mtz, on Tuesday. This is important as some of your inhalers may affect your heart rhythm. We discussed further evaluation for your COPD: - I will order additional breathing tests, including lung volume testing, to assess for air trapping or hyperinflation. This will help determine if you are a candidate for Walsenburg valves. - A 6-minute walk test will also be scheduled to evaluate your functional capacity. This will not be done today but will be arranged before your next visit. - I will order a quantitative CT scan to assess your lungs and monitor the lung nodules previously identified. If possible, this can be done in [place] for your convenience. - Your case will be presented at our monthly conference to determine if you are a candidate for Walsenburg valves. If the tests indicate you are [...] seek immediate medical attention. documented in this encounterRegional Medical Center08-25-2025 History of Present illness Narrative* Leslye Mclean [...] is accompanied by his . Recording using [employer] software for draft documentation of the visit was discussed with the patient/authorized outside sales account representative; all questions welcomed and answered. Patient/authorized outside sales account representative agreed to proceed HPI: Ricardo Hylton [...] He has a follow-up appointment with a street supervisor at the [facility]. He was evaluated for a lung transplant in 2020 but was deemed ineligible due to being in too good shape and weight issues. His lowest weight was 212 lbs, but he has since gained weight and is currently 235 lbs. He is on Ozempic for weight management. 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 [employer] REVIEW OF SYSTEMS GENERAL: No unintentional weight [...] and Negative PAST MEDICAL HISTORY Diagnosis Date Lvlvk-7-ruprtecgjge deficiency (HCC) COPD (chronic obstructive pulmonary disease) (HCC) COVID-03 November 2024 - ADMITTED TO [facility] HTN (hypertension) RANCHO (obstructive sleep apnea) Respiratory failure (HCC) : History reviewed. No pertinent family history.: SOCIAL HISTORY[1] Allergies: ALLERGIES Allergen Reactions Metformin Intolerance diarrhea Current Medications: ohraz-1-nyyxglmpps inhibitor (Human) 1,000 mg in water for [...] Take 81 mg by mouth once daily. NegoramaE 2 SENSOR kit as directed. TRELEGY ELLIPTA [...] 03/24/2021 Neut% 66.9 03/24/2021 Lymph% 21.4 03/24/2021 Bennett% 9.3 03/24/2021 Eosin% 1.4 03/24/2021 Baso% 1.0 03/24/2021 Abs Neut (ANC) 4.81 03/24/2021 Abs Bennett 0.67 03/24/2021 Abs Eosin 0.10 03/24/2021 Abs [...] 90-100 0.07 0 FIVC 3.40 3.54 4 TWM87-92 0.30 1.21 2.61 4.56 11 -3.39 0.32 [...] 4.59 FE%FIF % 8 FIVC L 4.02 SDO70-73% L/s 0.39 1.38 2.86 4.87 13.7 TCP274% sec 14.75 FETPEF sec 0.04 VBe%FV % [...] Chronic obstructive pulmonary disease, unspecified COPD type ([facility]) (J44.9) 2. Chronic respiratory failure with hypoxia ([facility]) (J96.11) 3. 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 Worsening dyspnea over the past year, with significant decline in functional capacity. Hospitalized in October for COVID-19, treated with IV steroids and Remdesivir. On weekly Prolastin infusions for ktpnt-2-kvuqebnerss deficiency. Current regimen includes Trelegy, albuterol inhaler [...] and air trapping; will determine candidacy for Walsenburg valve placement. - Order 6-minute walk test to assess functional capacity. - Order labs, including jisqs-4-mbqoixsvdda levels. - Re-engage transplant team for reassessment. - Discussed Walsenburg valve procedure, including risks and benefits; patient [...] -Leslye Mclean MD [1] documented in this encounterRegional Medical Center08-25-2025 NoteHNO ID: [id number] Author: LESLYE MCLEAN MD Service: ? Author [...] is accompanied by his . Recording using [employer] software for draft documentation of the visit was discussed with the patient/authorized outside sales account representative; all questions welcomed and answered. Patient/authorized outside sales account representative agreed to proceed HPI: Ricardo Hylton [...] He has a follow-up appointment with a street supervisor at the [facility]. He was evaluated for a lung transplant in 2020 but was deemed ineligible due to being in too good shape and weight issues. His lowest weight was 212 lbs, but he has since gained weight and is currently 235 lbs. He is on Ozempic for weight management. 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 [employer] REVIEW OF SYSTEMS GENERAL: No unintentional weight [...] and Negative PAST MEDICAL HISTORY Diagnosis Date Jnsnk-1-psvksxwqkta deficiency (HCC) COPD (chronic obstructive pulmonary disease) (HCC) COVID-03 November 2024 - ADMITTED TO [facility] HTN (hypertension) RANCHO (obstructive sleep apnea) Respiratory failure (HCC) : History reviewed. No pertinent family history.: SOCIAL HISTORY[1] Allergies: ALLERGIES Allergen Reactions Metformin Intolerance diarrhea Current Medications: iarvr-9-thrcpnfjyk inhibitor (Human) 1,000 mg in water for [...] Take 81 mg by mouth once daily. treadalong MARTIN 2 SENSOR kit as directed. TRUONG ELLIPTA 100-62.5-25 mcg INHALE 1 PUFF BY MOUTH DAILY g (more content not included)...[facility]08-05-2025 NotePatient Education Infectious Disease Skin Yeast [...] instructions at home: ??? Take or apply pbrz-jxg-wxwluml and prescription medicines only as told by [...] on the skin. ??? Take or apply ajgr-fqj-sbqetbo and prescription medicines only as told by [...] provider. Document Revised: 09/22/2021 Document Reviewed: 09/22/2021 [employer] Patient Education ? 2023 [employer].[facility] 01-24-2025 [facility] Cardiology Clinic Note Chief Complaint: New [...] oxygen dependent respiratory failure and uses oxygen ymtqkt-pcj-rcpqb. He also uses inhalers multiple times a [...] deviation now present Echocardiography Report: Transthoracic Echo [facility] A17 Date of service: 03/24/2021 2:23:59 PM MACHINIST Ordering physician: LYLE HILLIARD Indication: Lung transplant [...] displacement is 3.0 cm (more content not included)...[facility]05-14-2025 Hospital Discharge instructions Patient Education 11/28/2024 [...] Follow these instructions at home: Medicines Take gldv-gmb-bzhfdae and prescription medicines only as told by [...] important. Where to find more information National [place] of Diabetes and Digestive and Kidney Diseases: [...] depends on the type of prostatitis. Take agkx-clh-ccmbmaq and prescription medicines only as told by [...] provider. Document Revised: 05/19/2023 Document Reviewed: 05/19/2023 [employer] Patient Education 2023 [employer]. 11/28/2024 09:31:37 Prostate Cancer Screening Prostate Cancer [...] treatment? Where to find more information The [place] Cancer Society: www.cancer.org [place] [employer] Association: www.auanet.org Contact a health care [...] provider. Document Revised: 12/28/2021 Document Reviewed: 12/28/2021 [employer] Patient Education 2023 [employer]. Follow Up Care 11/01/2024 14:15:46 With:PHI GOSS, Joo R, URL Address: [facility] [address] [place] [address]- When: Unknown [facility] 05-14-2025 NoteUrology Office/Clinic Note HPI Staff [...] Feels he empties completely. Nocturia sometimes 2x/night. Residential Real Estate Appraiser reports urine is very strong smelling, likely dehydration however foul odor can indicate infection. Residential Real Estate Appraiser feels his urine is foul smelling. 3. Chronic prostatitis (N41.1: Chronic prostatitis) See #1 and #2. -Start Doxycycline 100 mg bid x 3 wks. SEs discussed. Sent to [facility]. 4. Former smoker (Z87.891: Personal history of nicotine dependence) 37 yrs, 2 PPD. Increased risk for urothelial cancer. 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 Take bqzr-szh-mbxhjus and prescription medicines only as told by [...] provider. This is important. (more content not included)...[facility]04-10-2025 NotePatient Education Endocrinology Diabetes Mellitus and [...] an expert trained in diabetes care (certified ophthalmic medical technician) can help you make an activity [...] stroke). Where to find more information ??? [place] Diabetes Association: diabetes.org ??? Association of Diabetes Care & Education Specialists: diabeteseducator.org This information is not intended to replace advice given to you by your health care provider. Make sure you discuss any questions you have with your health care provider. Document Revised: 12/22/2022 Document Reviewed: 12/22/2022 Elsevier Patient Education ? 2023 [employer].[facility] 10-05-2024 Progress note Author Eden Greenwood [facility] Note Date/Time October 05, 2024 12: 00am [facility] [address] [place] [address] Hospitalist Progress Note Signed Patient: Ricardo Hylton MR#: [id number] : 1960 Acct:[id number] Age/Sex: 63 / M Adm Date: 5 Loc: Room: [address] [place] [address] Type: ADM IN Attending Dr: Eden Greenwood [...] Tablet PO 10/04/25 08:59 Not Given BID REPLACED BY [facility] Dexamethasone 2 mg/ 6 mg 10/04/24 09:00 [...] Mg/0.4 Ml Syringe SUBCUT 10/05/25 09:59 DAILY@1000 REPLACED BY [facility] Furosemide 40 mg 10/04/24 08:00 10/04/24 07:50 Furosemide 40 Mg Tablet PO 10/04/25 07:59 40 mg DAILY@0800 REPLACED BY [facility] Administration Glucose 0 gm 10/04/24 02:37 Dextrose 40% Gel 15 Gm Tube PO 10/04/25 02:36 PRN PRN Hypoglycemia Glucose 0 gm 10/04/24 14:37 Dextrose 40% Gel 15 Gm Tube PO 10/04/25 14:36 PRN PRN Hypoglycemia Guaifenesin 600 mg 10/04/24 21:00 Guaifenesin 600 Mg Tab.Er.12h PO 10/04/25 20:59 BID REPLACED BY [facility] Ceftriaxone Sodium 1 gm in 50 mls @ 100 mls/hr 10/04/24 02:30 10/04/24 03:39 Rocephin IV 100 mls/hr Q24H KAITLIN Administration Remdesivir 100 mg/ Sodium 250 mls @ 250 mls/hr 10/05/24 09:00 Chloride IV 10/08/24 09:59 Q24H REPLACED BY [facility] Insulin Aspart 0 units 10/04/24 17:00 Insulin Aspart 300 Units/3 Ml SUBCUT 10/04/25 16:59 TID.WM.HS REPLACED BY [facility] Protocol Lisinopril 5 mg 10/04/24 09:00 10/04/24 [...] of chronic obstructive pulmonary disease (COPD): (2) Vehxj-6-nvelzcfissx deficiency: (3) Obstructive sleep apnea (adult) (pediatric): (4) Hypertension: Plan Documented By: Eden Greenwood MD 10/04/24 1431 Signed By: <Electronically signed by Eden Greenwood MD> 10/05/24 0000 [facility] Work Phone: 1(383) 745-126603-21-20[address] [place] [address] Hospitalist Progress Note Signed Patient: Ricardo Hylton MR#: [id number] : 1960 Acct:[id number] Age/Sex: 63 / M Adm Date: 5 Loc: Room: [address] [place] [address] Type: ADM IN Attending Dr: Eden Greenwood [...] 300 Units/3 Ml SUBCUT 10/04/25 16:59 TID.WM.HS REPLACED BY [facility] Protocol Lisinopril 5 mg 10/04/24 09:00 10/04/24 [...] of chronic obstructive pulmonary disease (COPD): (2) Kedgf-6-iqglykhcbiz deficiency: (3) Obstructive sleep apnea (adult) (pediatric): [...] oxygen as per chronic orders.[facility] Work Phone: 1(710) 728-504903-20-2025 History and physical note Author Clifton Calderon [facility] Note Date/Time October 04, 2024 3:4 7am [facility] [address] [place] [address] Hospitalist H&P Signed with Addleida Patient: Ricardo Hylton MR#: [id number] : 1960 Acct:[id number] Age/Sex: 63 / M Adm Date: 5 Loc: Room: [address] [place] [address] Type: ADM IN Attending Dr: Clifton Calderon MD Copies to: MD Sarah Watts, [facility]~ ADDENDUM1 Respiratory panel resulted COVID positive, will start remdesivir and dexamethasone given increased O2 needs. Addendum Documented By: Clifton Calderon MD 10/04/24 034 Addendum Signed By: <Electronically signed by Clifton Calderon MD> 10/04/24 0347 HPI DATE OF EXAMINATION: 10/04/24 CHIEF COMPLAINT: Shortness of Breath HISTORY OF PRESENT ILLNESS: Ricadro Hylton is a 63 y/o M history [...] negative unless noted below or in HPI [facility] Medical History Obstructive sleep apnea (adult) (pediatric) Hypertension History of left heart catheterization GERD (gastroesophageal reflux disease) Essential hypertension Diabetes type 2, controlled Depression Chronic obstructive pulmonary disease Centrilobular emphysema Anxiety, generalized Opzrs-6-kkyuhozigic deficiency Family History Father Cancer [facility] [...] % (Auto) 11.7 % (.) 10/04/24 00:07 Bennett % (Auto) 12.6 % (.) 10/04/24 00:07 Eos % (Auto) 0.2 % (.) 10/04/24 00:07 Baso % (Auto) 0.7 % (.) 10/04/24 00:07 Nucleat RBC Rel Count 0.2 /100 WBC (0-0.5) 10/04/24 00:07 Neut # (Auto) 9.5 x10E3/uL (1.8-7.7) H 10/04/24 00:07 Lymph # (Auto) 1.5 x10E3/uL (1.00-4.8) 10/04/24 00:07 Bennett # (Auto) 1.6 x10E3/uL (0.0-0.8) H 10/04/24 [...] of chronic obstructive pulmonary disease (COPD): (2) Vffui-4-zzgnfpvfcng deficiency: (3) Obstructive sleep apnea (adult) (pediatric): [...] Calderon MD> 10/04/24 0244 [facility] Work Phone: 1(616) 795-625703-20-2025 [place] [address] Hospitalist H&P Signed with Addenda Patient: Ricardo Hylton MR#: [id number] : 1960 Acct:[id number] Age/Sex: 63 / M Adm Date: 5 Loc: Room: [address] [place] [address] Type: ADM IN Attending Dr: Clifton Calderon MD Copies to: MD Sarah Watts, [facility]~ ADDENDUM1 Respiratory panel resulted COVID positive, [...] negative unless noted below or in HPI [facility] Medical History Obstructive sleep apnea (adult) (pediatric) Hypertension History of left heart catheterization GERD (gastroesophageal reflux disease) Essential hypertension Diabetes type 2, controlled Depression Chronic obstructive pulmonary disease Centrilobular emphysema Anxiety, generalized Uwmmy-2-pqgzmlzbvel deficiency Family History Father Cancer [facility] Problem: Diagnosed with Cancer Family history of [...] % (Auto) 11.7 % (.) 10/04/24 00:07 Bennett % (Auto) 12.6 % (.) 10/04/24 00:07 Eos % (Auto) 0.2 % (.) 10/04/24 00:07 Baso % (Auto) 0.7 % (.) 10/04/24 00:07 Nucleat RBC Rel Count 0.2 /100 WBC (0-0.5) 10/04/24 00:07 Neut # (Auto) 9.5 x10E3/uL (1.8-7.7) H 10/04/24 00:07 Lymph # (Auto) 1.5 x10E3/uL (1.00-4.8) 10/04/24 00:07 Bennett # (Auto) 1.6 x10E3/uL (0.0-0.8) H 10/04/24 [...] of chronic obstructive pulmonary disease (COPD): (2) Vewxb-6-edonxemccdn deficiency: (3) Obstructive sleep apnea (adult) (pediatric): [...] disease (COPD) acute October 04, 2024 12:57am Bwwca-4-pdgdmmlqpkf deficiency acute October 04, 2024 12:57am Diabetes type 2, controlled acute October 04, 2024 12:57am Essential hypertension acute [facility] 2024 12:57am Hypertension acute October 04, 2024 12:57am Obstructive sleep apnea (bernardino lt) (pediatric) acute October 04, 2024 12:57am [facility] Work Phone: 1(994) 978-491111-18-2024 NoteFamily Medicine Office/Clinic Note Chief Complaint ent [...] Previous treatment: None., 06/04/2024 (more content not included)...[facility]:Result Comment: Electronically Signed By: SARAH TRIVEDI CNP.mitchel\Date and Time Signed: 06/04/24 15:43 [id number] NotePatient Education Immunology Allergic Rhinitis, Adult Allergic [...] related conditions, such as: ??? Asthma. ??? [place] eye. This is eye swelling and irritation [...] and dust regularly. General instructions ??? Take pept-gct-vsilabu and prescription medicines only as told by your provider. ??? Drink enough fluid to keep your pee pale yellow. Where to find more information ??? [place] Academy of Allergy, Asthma & Immunology: aaaai.org [...] see if the sy (more content not included)...[facility]2024 NotePatient Education Endocrinology Diabetes Mellitus and [...] an expert trained in diabetes care (certified ophthalmic medical technician) can help you make an activity [...] stroke). Where to find more information ??? [place] Diabetes Association: diabetes.org ??? Association of Diabetes Care & Education Specialists: diabeteseducator.org This information is not intended to replace advice given to you by your health care provider. Make sure you discuss any questions you have with your health care provider. Document Revised: 12/22/2022 Document Reviewed: 12/22/2022 Elsevier Patient Education ? 2023 [employer].[facility] 08-26-2023 Evaluation note* Encounter Date Diagnosis Assessment Notes Treatment Notes Treatment Clinical Notes Aug, Anxiety, generalized (ICD-10 - F41.1) [facility] Other 01-18-2024 Evaluation note* Encounter Date Diagnosis Assessment Notes Treatment Notes Treatment Clinical Notes Jul, Acute cervical radiculopathy (ICD-10 - M54.12) [facility] Other 12-26-2023 Evaluation note* Encounter Date Diagnosis Assessment Notes Treatment Notes Treatment Clinical Notes Jun, Acute cervical radiculopathy (ICD-10 - M54.12) [facility] Other 12-11-2023 Evaluation note* Encounter Date Diagnosis [...] F41.1) Chronic problem that is stable presently. [facility] Other 12-08-2023 Evaluation note* Encounter Date Diagnosis Assessment Notes Treatment Notes Treatment Clinical Notes Jun, Anxiety, generalized (ICD-10 - F41.1) [facility] Other 11-17-2023 Evaluation note* Encounter Date Diagnosis Assessment Notes Treatment Notes Treatment Clinical Notes May, Acute cervical radiculopathy (ICD-10 - M54.12) [facility] Other 11-14-2023 Evaluation note* Encounter Date Diagnosis Assessment Notes Treatment Notes Treatment Clinical Notes May, Anxiety, generalized (ICD-10 - F41.1) 14 May, 2023 Acute cervical radiculopathy (ICD-10 - M54.12) [employer] Other 10-23-2023 Evaluation note* Encounter Date Diagnosis Assessment Notes Treatment Notes Treatment Clinical Notes Apr, Acute cervical radiculopathy (ICD-10 - M54.12) [employer] Other 10-09-2023 Miscellaneous Notes* Telephone Encounter - [...] any questions. Yaima Meraz RN, BSN Pre-Lung Spray Booth Operator documented [facility]-27-2023 Evaluation note* Encounter Date Diagnosis Assessment Notes Treatment Notes Treatment Clinical Notes Mar, Acute cervical radiculopathy (ICD-10 - M54.12) [facility] [employer] Other 08-28-2023 Evaluation note* Encounter Date Diagnosis Assessment Notes Treatment Notes Treatment Clinical Notes Feb, Acute cervical radiculopathy (ICD-10 - M54.12) [facility] [employer] Other 08-24-2023 Miscellaneous Notes* Telephone Encounter - [...] being full. Yaima Meraz RN, BSN Pre-Lung Spray Booth Operator documented in this encounterRegional Medical Center08-22-2023 Evaluation note* Encounter Date Diagnosis Assessment Notes Treatment Notes Treatment Clinical Notes Feb, Type 2 diabetes mellitus with hyperglycemia, without long-term current use of insulin (ICD-10 - E11.65) [facility] Other 08-17-2023 Evaluation note* Encounter Date Diagnosis [...] lose weight to improved his severe COPD> [facility] Other 08-17-2023 Evaluation note* Encounter Date Diagnosis [...] lose weight to improve his lung function [facility] Other 07-27-2023 Evaluation note* Encounter Date Diagnosis Assessment Notes Treatment Notes Treatment Clinical Notes Jan, Acute cervical radiculopathy (ICD-10 - M54.12) [facility] Other 06-15-2023 Evaluation note* Encounter Date Diagnosis [...] the zephyr procedure can be started through [facility]. Keep appt in January w his office. [facility] Other 04-28-2023 Evaluation note* Encounter Date Diagnosis Assessment Notes Treatment Notes Treatment Clinical Notes Oct, Acute cervical radiculopathy (ICD-10 - M54.12) [facility] Other 02-16-2023 Evaluation note* Encounter Date Diagnosis Assessment Notes Treatment Notes Treatment Clinical Notes Aug, Chronic obstructive pulmonary disease (ICD-10 - J44.9) Continue present meds including lengthy steroid taper. Continue to followup w Dr. Gonzalez. He has not [facility] transplant dept. [facility] Other 04-27-2022 Miscellaneous Notes* Telephone Encounter - [...] options. Maximino Callaway Transplant documented in this encounterRegional Medical Center04-20-2022 Miscellaneous Notes* Telephone Encounter - Molly Gan APRN.NGOZI - 11/04/2021 2:27 PM EDT Patient not in attendance for lung transplant appts on 11/04. Attempted to contact patient to reschedule. left requesting call back. Molly Gan, MSN, AUTO INSPECTOR-CAREER COORDINATOR Lung Spray Booth Operator documented in this encounterRegional Medical CenterEvaluation + Plan note Future Appointments Appointment Date:04/24/2024 01:40:00 PM Scheduled Provider:SARAH TRIVEDI CNP [facility] Type: Open Appointment Date:01/29/2025 01:00:00 PM Scheduled Provider: [facility] Appoint[facility] Type: Medicare Wellness Subsequent Future Scheduled Tests Laboratory* HCV Antibody RFX to Quant PCR [facility] Future Appointments Appointment Date:01/24/2025 01:20:00 PM Scheduled Provider:SARAH TRIVEDI CNP [facility] Appoint[facility] Type: Open Appointment Date:01/29/2025 01:00:00 PM Scheduled Provider: [facility] Appointment Type:FM Medicare Wellness Subsequent Diagnostic Tests Pending * HgbA1c 10/25/24 * HCV Antibody RFX to Quant PCR 10/25/24 * PSA Total 10/25/24 [facility] Evaluation + Plan note Future Appointments Appointment Date:01/24/2025 01:20:00 PM Scheduled Provider:SARAH TRIVEDI CNP [facility] Appointment Type: Open Appointment Date:01/29/2025 01:00:00 PM Scheduled Provider: [facility] Appointment Type:FM Medicare Wellness Subsequent Appointment Date:02/06/2025 11:00:00 AM Scheduled Provider: Location:[facility] MELISSA Singh Appointment Type:URO Nurse Visit Appointment Date:02/13/2025 11:15:00 AM Scheduled Provider:Joo YIP MD Location:[facility] MELISSA Singh Appointment Type:URO Office Visit [facility] Evaluation + Plan note Future Appointments Appointment Date:05/28/2025 02:30:00 PM Scheduled Provider: [facility] App[facility] Type:FM Medicare Wellness Subsequent Appointment Date:05/28/2025 03:20:00 PM Scheduled Provider:SARAH TRIVEDI CNP Location:[facility] Natasha Appointment Type:FM Open Appointment Date:03/19/2026 01:15:00 PM Scheduled Provider:Joo YIP MD Location:[facility] Antony Appointment Type:URO Office Visit [facility] Antony evaluation note* Diagnosis Chronic obstructive pulmonary disease, unspecified COPD type (HCC)- Primary Lung transplant candidate documented in this encounter [facility] note* Diagnosis Wneky-9-rnhxgtalyqf deficiency (HCC)- Primary Dlysg-8-tryuepsegbc deficiency documented in this encounter [facility] noteNo Cliptone Other evaluation note* Diagnosis Onset Date Resolution Status Skin lesion of right arm acu te [facility] Work Phone: evaluation note* Diagnosis Onset Date Resolution Status Admit Date Acute exacerbation of chroni c obstructive pulmonary disease (COPD) acute October 04, 2024 12:57am Diabetes type 2, controlled acute [facility] 2024 12:57am Essential hypertension acute [facility] 2024 12:57am [facility] Work Phone: evaluation note* Diagnosis Chronic obstructive pulmonary disease, unspecified COPD type (HCC) documented in this encounter [facility] note* Diagnosis Chronic obstructive pulmonary disease, unspecified COPD type (HCC)- Primary documented in this encounter [facility] note* Diagnosis Chronic obstructive pulmonary disease, unspecified COPD type (HCC)- Primary Chronic respiratory failure with hypoxia (HCC) Chronic respiratory failure Eyfbd-9-zseumrxmgri deficiency (HCC) Llpdx-4-evkunfzedcl deficiency Chronic rhinitis Obstructive sleep apnea (adult) (pediatric) Former smoker Personal history of tobacco use, presenting hazards to health Chronic obstructive pulmonary disease, unspecified COPD type (HCC)- Primary documented in this encounter [facility] note* Diagnosis Adverse effect of theophylline- Primary documented in this encounter [facility] noteNo assessment information availableK[facility] Work Phone: History general Narrative - Reported* Type Description Date Medical History Hypertension Medical History COPD Medical History RANCHO Medical History Centrilobular Emphysema Medical History Obesity Medical History Alpha 1 Antitrypsin Deficieny Medical History Depression Medical History Diabetes Type 2 Medical History GERD Medical History Essential Hypertension. Surgical History heart catheterization, no stent s Hospitalization History SEE ABOVE [facility] Other Hospital course Narrative No data available for this section [facility] instructions No data available for this section [facility] note No data available for this section [facility] HospitalReason for referral (narrative)No reason for referral information availableKettering [facility] Work Phone: Summary Purpose Family History [...] pulmonary disease (COPD) October 04, 2024 12:57am Wigby-2-npxptwekekg deficiency September 12:57am Diabetes type 2, controlled [...] section and content) DATE CREATED AUTHOR 03/17/2019 [facility] DATE CREATED AUTHOR AUTHOR'S ORGANIZ ATION 10/06/2022 [facility] DATE CREATED AUTHOR AUTHOR'S ORGANIZ ATION 10/28/2024 Shi Asim [facility] DATE CREATED AUTHOR AUTHOR'S ORGANIZ ATION [facility]20[facility] DATE CREATED AUTHOR AUTHOR'S ORGANIZ ATION 02/23/2025 [facility] DATE CREATED AUTHOR AUTHOR'S ORGANIZ ATION 03/12/2025 [facility] DATE CREATED AUTHOR AUTHOR'S ORGANIZ ATION 03/22/2025 Shi Tripp [facility] DATE CREATED AUTHOR AUTHOR'S ORGANIZ ATION 03/24/2025 [facility] DATE CREATED AUTHOR AUTHOR'S ORGANIZ ATION 04/24/2025 [facility] DATE CREATED AUTHOR AUTHOR'S ORGANIZ ATION 04/25/2025 Shi Asim [facility] ical Center DATE CREATED AUTHOR AUTHOR'S ORGANIZ ATION 04/27/2025 [facility] ysician Group Source Comments (unrecognize d section and content) In the event this informatio n is protected by the Federal Confidentiality of Alcohol and Drug Abuse Patient Records regulations: The Federal rules restrict any use of the information to criminally investigate or prosecute any alcohol or drug abuse patient.[facility] CenterIn the event this information is protected by the Federal Confidentiality of Alcohol and Drug Abuse Patient Records regulations: The Federal rules restrict any use of the information to criminally investigate or prosecute any alcohol or drug abuse patient.[facility] Medical CenterIn the event this information is protected by the Federal Confidentiality of Alcohol and Drug Abuse Patient Records regulations: The Federal rules restrict any use of the information to criminally investigate or prosecute any alcohol or drug abuse patient.[facility] Center[facility] the event this information is protected by the Federal Confidentiality of Alcohol and Drug Abuse Patient Records regulations: The Federal rules restrict any use of the information to criminally investigate or prosecute any alcohol or drug abuse patient.[facility] CenterIn the event this information is protected by the Federal Confidentiality of Alcohol and Drug Abuse Patient Records regulations: The Federal rules restrict any use of the information to criminally investigate or prosecute any alcohol or drug abuse patient.[facility] CenterIn the event this information is protected by the Federal Confidentiality of Alcohol and Drug Abuse Patient Records regulations: The Federal rules restrict any use of the information to criminally investigate or prosecute any alcohol or drug abuse patient.[facility] CenterIn the event this information is protected by the Federal Confidentiality of Alcohol and Drug Abuse Patient Records regulations: The Federal rules restrict any use of the information to criminally investigate or prosecute any alcohol or drug abuse patient.[facility] CenterIn the event this information is protected by the Federal Confidentiality of Alcohol and Drug Abuse Patient Records regulations: The Federal rules restrict any use of the information to criminally investigate or prosecute any alcohol or drug abuse patient.[facility] CenterIn the event this information is protected by the Federal Confidentiality of Alcohol and Drug Abuse Patient Records regulations: The Federal rules restrict any use of the information to criminally investigate or prosecute any alcohol or drug abuse patient.[facility] CenterIn the event this information is protected by the Federal Confidentiality of Alcohol and Drug Abuse Patient Records regulations: The Federal rules restrict any use of the information to criminally investigate or prosecute any alcohol or drug abuse patient.[facility] CenterIn the event this information is protected by the Federal Confidentiality of Alcohol and Drug Abuse Patient Records regulations: The Federal rules restrict any use of the information to criminally investigate or prosecute any alcohol or drug abuse patient.[facility] CenterIn the event this information is protected by the Federal Confidentiality of Alcohol and Drug Abuse Patient Records regulations: The Federal rules restrict any use of the information to criminally investigate or prosecute any alcohol or drug abuse patient.[facility] CenterIn the event this information is protected by the Federal Confidentiality of Alcohol and Drug Abuse Patient Records regulations: The Federal rules restrict any use of the information to criminally investigate or prosecute any alcohol or drug abuse patient.[facility] CenterIn the event this information is protected by the Federal Confidentiality of Alcohol and Drug Abuse Patient Records regulations: The Federal rules restrict any use of the information to criminally investigate or prosecute any alcohol or drug abuse patient.[facility] CenterIn the event this information is protected by the Federal Confidentiality of Alcohol and Drug Abuse Patient Records regulations: The Federal rules restrict any use of the information to criminally investigate or prosecute any alcohol or drug abuse patient.[facility] CenterIn the event this information is protected by the Federal Confidentiality of Alcohol and Drug Abuse Patient Records regulations: The Federal rules restrict any use of the information to criminally investigate or prosecute any alcohol or drug abuse patient.[facility] CenterIn the event this information is protected by the Federal Confidentiality of Alcohol and Drug Abuse Patient Records regulations: The Federal rules restrict any use of the information to criminally investigate or prosecute any alcohol or drug abuse patient.[facility] Care Teams (unrecognized sec tion and content) [employer] Relationship Specialty Start Date End Date Bryon Cowart MD [address] [place] [address] PCP - General Family Practice 03/12/20 Vanda Gonzalez DO Referring Pulmonary and Critical Care Medicine 03/12/20 [employer] Relationship Specialty Start Date End Date Bryon Cowart MD [address] [place] [address] PCP - General Family Practice 03/12/20 Vanda Gonzalez DO Referring Pulmonary and Critical Care Medicine 03/12/20 [employer] Relationship Specialty Start Date End Date Bryon Cowart MD [address] [place] [address] PCP - General Family Practice 03/12/20 Vanda Gonzalez DO Referring Pulmonary and Critical Care Medicine 03/12/20 [employer] Relationship Specialty Start Date End Date Bryon Cowart MD [address] [place] [address] PCP - General Family Medicine 03/12/20 Vanda Gonzalez DO [address] [place] [id number] Referring Pulmonary and Critical Care Medicine 03/12/20 [...] Active Member Role Status Dates Sarah Trivedi [facility] Primary Care Provider Active Team Status: Active Member Role Status Dates Rubén Pina DO Attending Provider Active Sta rt: August 20, 2024 Team Status: Active Member Role Status Dates Pranay Bai Jr, MD Emergency Provider Active Start: October 04, [address] [facility] Primary Care Provider Active Start: October 04, 2024 Clifton Calderon MD Admit Provider, Atte nding Provider Active Start: October 04, 2024 Team Status: Inactive Member Role Status Dates Pranay Bai Jr, MD Emergency Provider Active Start: October 04, 2024 End: October 05, [address] [facility] Primary Care Provider Active Start: October 04, 2024 End: October 05, 2024 Clifton Calderon MD Admit Provider Active Start: 2024 End: October 05, 2024 Eden Greenwood MD Attending Provider Active St art: October 04, 2024 End: October 05, 2024 [employer] Relationship Specialty Start Date End Date Bryon Cowart MD [address] [place] [id number] PCP - General Family Medicine 03/12/20 Vanda Gonzalez DO [address] [place] [facility] [place] [address] Referring Pulmonary and Critical Care Medicine 03/12/20 [employer] Relationship Specialty Start Date End Date Bryon Cowart MD [address] [place] [facility] [place] [address] PCP - General Family Medicine 03/12/20 Vanda Gonzalez DO [address] [place] [facility] [place] [id number] Referring Pulmonary and Critical Care Medicine 03/12/20 [employer] Relationship Specialty Start Date End Date Bryon Cowart MD [address] [place] [facility] [place] [id number] PCP - General Family Medicine 03/12/20 Vanda Gonzalez DO [address] [place] [facility] [place] [id number] Referring Pulmonary and Critical Care Medicine 03/12/20 [employer] Relationship Specialty Start Date End Date Bryon Cowart MD [address] [place] [facility] [place] [address] PCP - General Family Medicine 03/12/20 Vanda Gonzalez DO [address] [place] [facility] [place] [address] Referring Pulmonary and Critical Care Medicine 03/12/20 [employer] Relationship Specialty Start Date End Date Bryon Cowart MD [address] [place] [facility] [place] [address] PCP - General Family Medicine 03/12/20 Vanda Gonzalez DO [address] [place] [address] Referring Pulmonary and Critical Care Medicine 03/12/20 [employer] Relationship Specialty Start Date End Date Bryon Cowart MD [address] [place] [facility] [place] [address] PCP - General Family Medicine 03/12/20 Vanda Gonzalez DO [address] [place] [facility] [place] [address] Referring Pulmonary and Critical Care Medicine 03/12/20 Team Status: Active Member Role Status Dates Sarah Trivedi [facility] Primary Care Provider Active Start: March 11, 2025 Leslye Mclean MD Attending Provider Active Start: Marek smith 2024 Team Status: Active Member Role Status Dates Sarah Trivedi [facility] Primary Care Provider Active Start: March 26, 2025 Leslye Mclean MD Attending Provider Active Start: Andrew joshi 2024 Team Status: Inactive Member Role Status Dates Sarah Trivedi [facility] Primary Care Provider Active Start: April 11, 2025 End: April 11, 2025 Joo Yip MD Attending Provider Active St art: April 11, 2025 End: April 11, 2025 Team Status: Active Member Role Status Dates Sarah Trivedi [facility] Primary Care Provider Active Start: [...] By Contac t Referred To Contact [facility] Diagnoses Chronic obstructive pulmonary disease, unspecified COPD type (HCC) Procedures SPIROMETRY WITH DILATOR IF OBSTRUCTED BRNCDILAT RSPSE SPMTRY PRE&POST[place] [address] [place] [address] Phone: tel: fax: [facility] [address] [address] Referral ID Status Reason Start Date Expiration Date V isits Requested Visits Authorized [id number] Closed Auto-Generate d Referral 03/06/2025 04/05/2026 1 1 Specialty Diagnoses / Procedures Referred By Contac t Referred To [facility] Diagnoses Chronic obstructive pulmonary disease, unspecified COPD type (HCC) Procedures LUNG DIFFUSION CAPACITY (DLCO) [place] [address] [place] [address] Phone: tel: fax: [address] [address] Referral ID Status Reason Start Date Expiration Date V isits Requested Visits Authorized [id number] Closed Auto-Generate d Referral 03/06/2025 04/05/2026 1 1 Specialty Diagnoses / Procedures Referred By Contac t Referred To [facility] Diagnoses Chronic obstructive pulmonary disease, unspecified COPD type (HCC) Procedures LUNG VOLUMES Leslye Mclean [place] [id number] [place] [address] Phone: tel: fax: [facility] [address] [address] Referral ID Status Reason Start Date Expiration Date V isits Requested Visits Authorized [id number] Closed Auto-Generate d Referral 03/11/2025 07/17/2025 1 [...] BE BASED ON THE PRIMARY CLINICAL RECORDS. [facility]. provides no warranty or guarantee of the accuracy or completeness of information in this document.
--- OUTSIDE RECORDS SUMMARY | 2025-05-01 14:56 | XMS_ITS | CCD ---
Author Organization Unknown Care Team Providers Care Opthalmic Tech Name Role Phone Unavailable Primary Care Provider Unavailabl e Unavailable Chronic Care Management Unavaila ble Summary Purpose DataExchange Insurance Providers Payer name Policy type / Coverage type Covered libertarian ID Effective Begin Date Effective End Date [facility] [id number] Unknown Unknown Family History Family History data not found Medication Administered No Medication Administered data Reason For Visit No Reason For Visit data Medical Equipment No Medical Equipment data Advance Directives No Advance Directive data
--- OUTSIDE RECORDS SUMMARY | 2025-05-01 14:56 | XMS_ITS | CCD ---
Author Organization Unknown Care Team Providers Care Chemical Processor Name Role Phone Unavailable Primary Care Provider Unavailabl e Unavailable Chronic Care Management Unavaila ble Summary Purpose DataExchange Insurance Providers Payer name Policy type / Coverage type Covered democrat ID Effective Begin Date Effective End Date [facility] [id number] Unknown Unknown Family History Family History data not found Medication Administered No Medication Administered data Reason For Visit No Reason For Visit data Medical Equipment No Medical Equipment data Advance Directives No Advance Directive data
== END 2025-05-01 13:53 | disposition home or self-care (01) ==
LOC: PST 13:53
PROVIDERS: PCP Nurse Practitioner Family; Visit Provider Urology
DX: Z01.818 Encounter for other preprocedural examination (principal); R97.20 Elevated prostate specific antigen [PSA]

== ENCOUNTER 2025-05-16 12:53 | Outpatient (RCR) | payer MEDICARE, SELFPAY ==
[2025-04-24 13:40] VITALS: BP 148/75; PULSE 82; TEMP 36.4; O2SAT 88
[2025-04-24] MEDS: PROTEINASE INHIBITOR IV (13:50)
[2025-04-24] MEDS: ALPHA IV (13:50)
[2025-05-16 12:50] VITALS: BP 149/88; PULSE 91; TEMP 36.6; O2SAT 96
[2025-05-16] MEDS: PROTEINASE INHIBITOR IV (13:14)
[2025-05-16] MEDS: ALPHA IV (13:14)
== END 2025-05-17 23:59 | disposition home or self-care (01) ==
LOC: INF 12:53
PROVIDERS: PCP Internal Medicine; Visit Provider Internal Medicine
DX: E88.01 Alpha-1-antitrypsin deficiency (principal); J43.2 Centrilobular emphysema
CPT/HCPCS: 96365; J0256

== ENCOUNTER 2025-06-10 10:59 | Outpatient (RCR) | payer MEDICARE, SELFPAY ==
[2025-05-24 13:20] VITALS: BP 113/56; PULSE 98; TEMP 36; O2SAT 97
[2025-05-24] MEDS: ALPHA IV (13:20)
[2025-05-24] MEDS: PROTEINASE INHIBITOR IV (13:20)
[2025-06-10 11:00] VITALS: BP 164/94; PULSE 79; TEMP 35.7; O2SAT 95
[2025-06-10] MEDS: PROTEINASE INHIBITOR IV (11:06)
[2025-06-10] MEDS: ALPHA IV (11:06)
--- NOTE | 2025-06-10 11:25 | PC.NURSE ---
Spoke with patient regarding prolastin order expiring on 06/20/25. I faxed all the information to Dr. Lester at [facility] on 05/24/25 requesting a new order (this is his new kiln setter).
== END 2025-06-16 23:59 | disposition home or self-care (01) ==
LOC: INF 10:59
PROVIDERS: PCP Nurse Practitioner Family; Visit Provider Internal Medicine
DX: E88.01 Alpha-1-antitrypsin deficiency (principal); J43.2 Centrilobular emphysema
CPT/HCPCS: 96365; J0256

== ENCOUNTER 2025-07-16 12:49 | Outpatient (RCR) | payer MEDICARE, SELFPAY ==
[2025-06-28 13:06] VITALS: BP 160/92; PULSE 100; TEMP 36.4; O2SAT 99
[2025-07-16 12:48] VITALS: BP 171/94; PULSE 99; TEMP 36.4; O2SAT 98
[2025-07-16] MEDS: ALPHA IV (13:05)
[2025-07-16] MEDS: PROTEINASE INHIBITOR IV (13:05)
== END 2025-07-17 23:59 | disposition home or self-care (01) ==
LOC: INF 12:49
PROVIDERS: PCP Nurse Practitioner Family; Visit Provider Internal Medicine
DX: E88.01 Alpha-1-antitrypsin deficiency (principal); J44.9 Chronic obstructive pulmonary disease, unspecified
CPT/HCPCS: 96365; J0256